=== PATIENT | male | born 1960 | race Caucasian/White ===

== ENCOUNTER → 2016-07-31 | Outpatient (CLI) | payer BC ==
[2016-07-31 15:50] LABS: Blood Urea Nitrogen 16 mg/dL (9-20); Non-African American GFR(MDRD) >60 (>60 ml/min/1.73 sqM)
--- NOTE | 2016-07-31 17:29 | CT ---
EXAMINATION TYPE: CT abdomen pelvis wo/w con DATE OF EXAM: 07/31/2016 5:12 PM COMPARISON: NONE HISTORY: Pt states of renal cysts. CT DLP: 1239.2 mGycm Automated exposure control for dose reduction was used. TECHNIQUE: Helical acquisition of images was performed from the lung bases through the pelvis. CONTRAST: Performed with Oral Contrast and with IV Contrast, patient injected with 100 mL of Omnipaque 300. FINDINGS: There are multiple subpleural densities in the lower lung pandey that measure up to 2.5 cm. There are small bilateral pleural effusions. There is no pericardial effusion. Liver shows no focal defect. Spleen appears normal. There is no pancreatic mass. Gallbladder is contr acted. There is no adrenal mass. Kidneys show satisfactory contrast opacification. There is no eviden ce of a cortical mass. There are bilateral large calculi at the ureteropelvic junction of both kidney s. These measure up to 1.5 cm. Ureters are not dilated. There is a 3 mm calcification in the lower po le left kidney. There is some fullness of the left renal collecting system. There is a 3 cm cortical cyst on the upper pole left kidney. There is no retroperitoneal adenopathy. There is no ascites. Bladder distends smoothly. There is no sign of a pelvic mass. I see no intestina l wall thickening. There are no dilated loops. Appendix is not seen. There is no sign of appendicitis . There is degenerative disc space narrowing at L4-5. IMPRESSION: BILATERAL LARGE CALCIFICATIONS AT THE URETEROPELVIC JUNCTION. MILD LEFT-SIDED HYDRONEPHROSIS. NO LAYLA L ATROPHY. LEFT RENAL CORTICAL CYST. THERE IS EVIDENCE OF A MILD OBSTRUCTION OF THE LEFT KIDNEY. I SE E NO EVIDENCE OF OBSTRUCTION OF THE RIGHT KIDNEY. PLEURAL EFFUSIONS WITH MULTIPLE SUBPLEURAL MASSES IN THE VISUALIZED LOWER LOBES. The clinical signifi cance of these densities is not clear. I would consider both inflammatory disease and neoplasm in the differential diagnosis.
== END | disposition home or self-care (01) ==
LOC: RADCTMAIN 15:09
PROVIDERS: ATTEND Urology
DX: N28.1 Cyst of kidney, acquired (principal); N13.30 Unspecified hydronephrosis; N28.89 Other specified disorders of kidney and ureter
CPT/HCPCS: 82565; 84520; 74178; 36415; Q9967

== ENCOUNTER → 2016-09-17 | Outpatient (CLI) | payer BC ==
--- NOTE | 2016-09-17 12:17 | XR ---
EXAMINATION TYPE: XR KUB DATE OF EXAM: 09/17/2016 12:10 PM COMPARISON: 07/02/2016 KUB, CT scan 07/31/2016 HISTORY: Renal stone TECHNIQUE: One view abdominal series FINDINGS: The osseous structures are intact. The bowel gas pattern is nonspecific. Changes of arthropathy of t he hips and sacroiliitis noted. Degenerative change of the spine. Right kidney: 1. There is a stable appearing 1.8 cm calcification lower pole. 2. 9 mm lower pole calcification. Left kidney: 1. There is an 11 mm lower pole calcification. 2. 2 mm lower pole calcification. 3. Suspected mid pole 3 mm calcification. Pelvis: Stable vascular appearing calcification in the right hemipelvis. Subsegmental consolidation noted both lung bases. IMPRESSION: 1. Stable bilateral renal calculi. 2. Bilateral subsegmental atelectasis or infiltrate
== END ==
LOC: RADXRMAIN 11:53
PROVIDERS: ATTEND Urology
DX: N20.0 Calculus of kidney (principal)
CPT/HCPCS: 74000

== ENCOUNTER → 2016-10-01 | Outpatient (CLI) | payer BC ==
--- NOTE | 2016-10-01 13:20 | XR ---
Abdomen HISTORY: Renal calculus Frontal view of the abdomen on 2 images correlated to previous exam August plain film abdomen, CT scan 31 July 2016 The largest calculus on the right within the renal pelvis measures approximately 2 cm. The lower pole calculus on the right measures approximately 11 to 12 mm in greatest dimension by 7 to 8 mm. Proxima l left ureteral calculus measures approximately 11.5 x 6 mm. There is a bone island in the left ilium. Phlebolith is present in the right hemipelvis, there are pr ostatic calcifications. Degenerative disc changes in the visualized spine. Lung bases show pleural ef fusion, patient has lung nodules on prior CT that are not seen definitively but are suggested posteri edy. IMPRESSION: Bilateral nephrolithiasis. Findings at the lung bases as described.
== END | disposition home or self-care (01) ==
LOC: RADXRMAIN 11:48
PROVIDERS: ATTEND Urology
DX: N20.0 Calculus of kidney (principal)
CPT/HCPCS: 74000

== ENCOUNTER → 2016-10-15 | Outpatient (CLI) | payer BC ==
--- NOTE | 2016-10-15 12:21 | XR ---
EXAMINATION TYPE: XR abdomen 1V DATE OF EXAM ORDERED: 10/15/2016 12:08 PM HISTORY: N20.0 kidney stones. COMPARISON: Previous study dated 10/01/2016. FINDINGS: There is bilateral nephrolithiasis. The largest calcification on the right measures 2.2 cm . Largest on the left measures 5.6 mm. There are phleboliths within the pelvis. There is amorphous ca lcification overlying the left psoas shadow. This has migrated somewhat distally in comparison with t he previous study.. There are degenerative changes in the lower lumbar spine. IMPRESSION: 1. BILATERAL NEPHROLITHIASIS. 2. SOMEWHAT IRREGULAR LEFT URETERIC CALCULUS HAS MIGRATED SOMEWHAT DISTALLY IN COMPARISON TO PREVIOUS .
== END | disposition home or self-care (01) ==
LOC: RADXRMAIN 11:45
PROVIDERS: ATTEND Urology
DX: N20.0 Calculus of kidney (principal)
CPT/HCPCS: 74000

== ENCOUNTER 2016-10-18 13:37 | Day surgery (SDC) | payer BC ==
[2016-10-17 09:38] VITALS: BMI 30.9
--- NOTE | 2016-10-18 13:31 | XR ---
EXAMINATION TYPE: XR KUB DATE OF EXAM: 10/18/2016 1:24 PM COMPARISON: 10/15/2016 HISTORY: Renal stone TECHNIQUE: One view abdominal series FINDINGS: The osseous structures are intact. The bowel gas pattern is nonspecific. Pleural-based thickening an d emphysematous changes are seen involving both lung bases. Hypertrophic change of the spine noted. Right kidney: There remain 2 calcifications stable in appearance measuring 12 mm and 8 mm overlying t he mid and lower pole the right kidney. Left kidney: Punctate 2 to 3 mm mid pole calcification suspected. Calcification along the left parasp inal line may lie outside the course of the ureter but appears stable from the previous exam. Pelvis: Calcification overlying the right hemipelvis is likely vascular. IMPRESSION: 1. Nonspecific abdomen. Stable nephrolithiasis.
[~2016-10-18 13:37] MED LIST: DEXAMETHASONE SOD PHOSPHATE 10 MG/ML 1 ML VIAL IV ONE; HYDROmorphone 1 MG/ML 1 ML SYRINGE IVP PRN; LACTATED RINGERS 1,000 ML IV SCH; MIDAZOLAM 2 MG/2 ML VIAL IV PRN; ONDANSETRON 4 MG/2 ML VIAL IVP ONE; ceFAZolin 2 GM in SODIUM CHLORIDE 0.9% 100 ML IVPB ONE
[2016-10-18] MEDS ORDERED: LIDOCAINE 1% 20 ML VIAL (10MG/ML) FOR IV START INTRADERMA ONE (14:01)
[2016-10-18 14:04] LABS: Glucose,Whole Blood 79 mg/dL (75-99)
[2016-10-18] MEDS ORDERED: HYDROCORTISONE SUCCINATE 100 MG/2 ML VIAL IVP ONE (15:17)
[2016-10-18] MEDS ORDERED: MIDAZOLAM 2 MG/2 ML VIAL IVP ONE (15:24)
[2016-10-18] MEDS ORDERED: PROPOFOL 10 MG/ML 20 ML VIAL IV ONE (16:43)
[2016-10-18] MEDS ORDERED: LIDOCAINE 1% INJ 10MG/ML (20 ML MDV) ONE (16:43)
[2016-10-18] MEDS ORDERED: MIDAZOLAM 2 MG/2 ML VIAL ONE (16:43)
[2016-10-18] MEDS ORDERED: SUCCINYLCHOLINE CHLORIDE 100 MG/5 ML SYR IV ONE (16:43)
[2016-10-18] MEDS ORDERED: PHENYLEPHRINE-0.9% NACL SYG 1 MG/10 ML SYRINGE ONE (16:43)
[2016-10-18] MEDS ORDERED: fentaNYL (PF) 50 MCG/ML 2 ML AMP ONE (16:43)
[2016-10-18] MEDS ORDERED: ESMOLOL 100 MG/10 ML VIAL ONE (16:43)
[2016-10-18] MEDS ORDERED: LACTATED RINGERS 1,000 ML IV ONE ×2 (17:14→18:06)
--- NOTE | 2016-10-18 18:16 | P.OP ---
Date of Procedure: 10/18/16 Preoperative Diagnosis: Left ureteral calculi, left renal calculi Postoperative Diagnosis: Same Procedure(s) Performed: Cystoscopy, left ureteroscopy with Holmium laser lithotripsy, left ureteral stent insertion Anesthesia: FARTUN Surgeon: Ronald Reina Estimated Blood Loss (ml): 5 IV fluids (ml): 1,300 Pathology: none sent Condition: stable Disposition: PACU Indications for Procedure: He is a 56-year-old male with recurrent gross hematuria. A CT scan of the abdomen and pelvis showed multiple right renal calculi, one of which he passed in 2013. Urine cytology was suspicious in 2013, and cstoscopy was normal. He was given dietary advice for kidney stone prevention. He now presents back with gross hematuria, associated with right flank pain. A KUB x-ray and CT scan show a 12 mm left UPJ calculus causing mild left hydronephrosis, as well as an 18 mm right UPJ calculus. Treatment options were reviewed in detail, and he underwent left ESWL. The left stone is smaller and is causing obstruction, and this is the reason for treating it first. The calculus fragmented incompletely, and I suggested he undergo repeat left ESWL. However, the calculus is essentially unchanged in appearance, and I have thus adivsed him to undergo left ureteroscopy with laser lithotripsy. Operative Findings: Large left mid ureteral calculus, with a second calculus immediately proximal to it. Several small left renal calculi. All calculi fragmented to completion. Description of Procedure: The patient was taken to the operating room and placed in the dorsolithotomy position, with legs supported in Atilio stirrups. The external genitalia was prepped and draped sterilely. The 30 lens was used to introduce the 19-Sudanese Stortz cystoscopic sheath through the urethra and into the bladder under direct vision. The prostatic urethra showed evidence of mild lateral lobe enlargement. The bladder was examined in its entirety. Both ureteral orifices were normal anatomic location and configuration, and clear urine effluxed from both. No tumors or foreign bodies were seen. A 0.038 inch Glidewire was passed through the cystoscope. The left ureteral orifice was cannulated, and the Glidewire was slowly advanced. It passed beyond the mid ureteral calculus and up to the left renal pelvis. The cystoscope was removed, and an 11/13-Sudanese ureteral access catheter was passed over the wire, up to the mid ureter. The Olympus flexible ureteroscope was then passed through the ureteral access catheter sheath. The ureteroscope was advanced up to the level of the calculus. The 200 micron Holmium laser probe was passed through the ureteroscope, and lithotripsy was performed. The calculus fragmented well. Once the calculus had been fragmented, a second calculus immediately cephalad to this was identified. This also was fragmented. Lithotripsy was continued until all calculus fragments were no larger than 1-2 mm in size. The ureteroscope was then slowly advanced up to the left renal pelvis. Each calyx was examined. Several small renal calculi were identified, all of which were fragmented to completion. The ureteroscope was then slowly withdrawn under direct vision. Any remaining calculi exceeding 1-2 mm in size were fragmented at this time, and most of the calculus fragments passed distally into the bladder. There was no evidence of ureteral perforation. The cystoscope was replaced into the bladder. The Glidewire was passed up to the left renal pelvis, and a 28 cm, 4.8-Sudanese double-J ureteral stent was placed over the wire. Proper stent positioning was verified fluoroscopically and endoscopically. The bladder was emptied and the cystoscope removed. The patient tolerated the procedure well and was taken to the recovery room in stable condition.
[2016-10-18 18:23] VITALS: TEMP 98.1
[2016-10-18 20:56] VITALS: BP 138/89; PULSE 103; RESP 18
--- NOTE | 2016-10-19 08:00 | FL ---
EXAMINATION TYPE: FL guidance operating room DATE OF EXAM: 10/18/2016 6:50 PM HISTORY: Flouroscopy time Less than 1 minute of fluoroscopy provided. IMPRESSION: 1. Fluoroscopy time.
== END 2016-10-18 20:01 | disposition home or self-care (01) ==
LOC: OR 13:37
PROVIDERS: ATTEND Urology
DX: N13.2 Hydronephrosis with renal and ureteral calculous obstruction (principal); Z87.442 Personal history of urinary calculi; R31.0 Gross hematuria; E03.9 Hypothyroidism, unspecified; K21.9 Gastro-esophageal reflux disease without esophagitis; M06.9 Rheumatoid arthritis, unspecified; M41.9 Scoliosis, unspecified; Z87.891 Personal history of nicotine dependence; Z79.899 Other long term (current) drug therapy; Z79.52 Long term (current) use of systemic steroids
CPT/HCPCS: 74000; 50590; 52332; C2625; C1769; J2250; J1100; J1720; J0690; J2405; J2001; J3010; J2370; J0330; J2704

== ENCOUNTER → 2016-11-07 | Outpatient (CLI) | payer BC ==
[2016-11-07 16:52] LABS: Anisocytosis Slight; Basophils # (A) 0.1 k/uL (0-0.2); Basophils % (A) 1 %; CH 27.7; CHCM 30.7; Eosinophils # (A) 0.2 k/uL (0-0.7); Eosinophils % (A) 2 %; HCT 43.6 % (39.0-53.0); HDW 3.03; HGB 13.2 gm/dL (13.0-17.5); Hypochromasia Moderate; Luc % (Auto) 1; Lymphocytes # (A) 1.4 k/uL (1.0-4.8); Lymphocytes % (A) 16 %; MCH 27.4 pg (25.0-35.0); MCHC 30.3 g/dL (31.0-37.0); MCV 90.6 fL (80.0-100.0); Mean Platelet Volume 8.9; Monocytes # (A) 0.6 k/uL (0-1.0); Monocytes % (A) 7 %; Neutrophils # (A) 6.8 k/uL (1.3-7.7); Neutrophils % (A) 74 %; RBC 4.81 m/uL (4.30-5.90); RDW 16.7 % (11.5-15.5); WBC 9.2 k/uL (3.8-10.6); WBC (Perox) 9.39
[2016-11-07 17:18] LABS: Appearance,Urine Clear (Clear); Bacteria,Urine Rare /hpf; Bilirubin,Urine Negative (Negative); Glucose,Urine (UA) Negative (Negative); Ketones,Urine Negative (Negative); Leukocyte Esterase,Urine Moderate (Negative); Mucus,Urine Rare /hpf; Nitrite,Urine Negative (Negative); PH, Urine 5.5 (5.0-8.0); Particle Count 1618; Protein,Urine Negative (Negative); RBC,Urine 141 /hpf (0-5); Specific Gravity,Urine 1.006 (1.001-1.035); UA Billing (MACRO vs. MICRO) MICRO; Urobilinogen,Urine <2.0 mg/dL (<2.0); WBC,Urine 29 /hpf (0-5)
[2016-11-07 17:21] LABS: Anion Gap 10 mmol/L; Blood Urea Nitrogen 16 mg/dL (9-20); Carbon Dioxide 24 mmol/L (22-30); Chloride 107 mmol/L (98-107); Glucose 98 mg/dL (74-99); Non-African American GFR(MDRD) >60 (>60 ml/min/1.73 sqM); Potassium 3.7 mmol/L (3.5-5.1); Sodium 141 mmol/L (137-145)
== END | disposition home or self-care (01) ==
LOC: LABPAT 16:24
PROVIDERS: ATTEND Urology
DX: Z01.812 Encounter for preprocedural laboratory examination (principal); R35.0 Frequency of micturition; E03.9 Hypothyroidism, unspecified; N20.0 Calculus of kidney
CPT/HCPCS: 80048; 81001; 85025; 86850; 86900; 86901

== ENCOUNTER 2016-11-14 07:35 | Observation (INO) | payer BC ==
[2016-11-12 08:37] VITALS: BMI 30.9
[~2016-11-14 07:35] MED LIST changes: -HYDROmorphone 1 MG/ML 1 ML SYRINGE IVP PRN; -LACTATED RINGERS 1,000 ML IV SCH; +SCOPOLAMINE 1.5MG/72HR PATCH TRANSDERM ONE
--- NOTE | 2016-11-14 07:50 | XR ---
EXAMINATION TYPE: XR KUB DATE OF EXAM: 11/14/2016 7:38 AM COMPARISON: 10/18/2016 INDICATION: Kidney stones TECHNIQUE: Single view abdomen supine FINDINGS: There is a normal bowel gas pattern. Psoas margins are normal. No organomegaly is present. 2 right-sided renal calcifications. Present measuring 1.9 and 1.0 cm present previously. Phlebolith i s within the right hemipelvis. IMPRESSION: 1. Right renal stones
[2016-11-14] MEDS ORDERED: LIDOCAINE 1% 20 ML VIAL (10MG/ML) FOR IV START INTRADERMA ONE (08:54)
[2016-11-14] MEDS: LACTATED RINGERS 1,000 ML IV SCH (08:55)
[2016-11-14] MEDS ORDERED: SUCCINYLCHOLINE CHLORIDE 100 MG/5 ML SYR IV ONE (10:07)
[2016-11-14] MEDS ORDERED: ROCURONIUM BROMIDE 10 MG/ML 10 ML VIAL IV ONE (10:07)
[2016-11-14] MEDS ORDERED: SODIUM CHLORIDE 0.9% 50 ML with ceFAZolin 2,000 MG IV ONE ×2 (10:07)
[2016-11-14] MEDS ORDERED: LIDOCAINE 1% INJ 10MG/ML (20 ML MDV) ONE (10:07)
[2016-11-14] MEDS ORDERED: GLYCOPYRROLATE 0.2 MG/ML 2 ML VIAL ONE (10:07)
[2016-11-14] MEDS ORDERED: fentaNYL (PF) 50 MCG/ML 2 ML AMP ONE (10:07)
[2016-11-14] MEDS ORDERED: ESMOLOL 100 MG/10 ML VIAL ONE (10:07)
[2016-11-14] MEDS ORDERED: MIDAZOLAM 2 MG/2 ML VIAL ONE (10:07)
[2016-11-14] MEDS ORDERED: NEOSTIGMINE 1 MG/ML 10 ML VIAL ONE (10:07)
[2016-11-14] MEDS ORDERED: PROPOFOL 10 MG/ML 20 ML VIAL IV ONE (10:07)
[2016-11-14] MEDS ORDERED: IOHEXOL 350 MG/ML 50ML BOTTLE IRRIGATION ONE (10:37)
[2016-11-14] MEDS ORDERED: ACETAMINOPHEN TAB 325 MG TAB PO PRN (11:52)
[2016-11-14] MEDS ORDERED: MAG HYDROX/AL HYDROX/SIMETH 30 ML CUP PO PRN (11:52)
[2016-11-14] MEDS ORDERED: MAGNESIUM HYDROXIDE 2,400 MG/10 ML CUP PO PRN (11:53)
[2016-11-14] MEDS ORDERED: HYDROmorphone PCA 5 MG/25 ML SYRINGE IV PRN (11:53)
[2016-11-14] MEDS ORDERED: ONDANSETRON 4 MG/2 ML VIAL IVP PRN (11:53)
[2016-11-14] MEDS ORDERED: NALOXONE 0.4 MG/ML 1 ML VIAL IV PRN (11:53)
[2016-11-14] MEDS ORDERED: diphenhydrAMINE 50 MG/ML 1 ML VIAL IVP PRN (11:53)
--- NOTE | 2016-11-14 11:58 | P.OP ---
Date of Procedure: 11/14/16 Preoperative Diagnosis: Right renal calculi large Postoperative Diagnosis: Same Procedure(s) Performed: Cystoscopy, placement of 5-Filipino occluding balloon catheter right, percutaneous nephrostomy (Dr. simpson), percutaneous nephrostolithotomy with ultrasound, placement of 10-Filipino J nephrostomy Anesthesia: FARTUN Surgeon: Micheal Bob Estimated Blood Loss (ml): 50 Pathology: other (Stones) Condition: stable Disposition: PACU Indications for Procedure: The patient is a 56-year-old gentleman with active kidney stone disease. He has an 18 mm and 10 mm right renal pelvic stone and comes for percutaneous nephrostolithotomy Description of Procedure: The patient is brought to the operating suite he is given a successful general endotracheal anesthesia on the transport gurney. He's placed in a frog position with rolls under his hips a sterile prep and drape. Cystoscopy with Foroblique lens and 22-Filipino sheath identifies a normal anterior urethra a minimally obstructing prostate. The right ureteral orifice is identified and intubated with a 5-Filipino occluding balloon catheter which is passed up in the renal pelvis it is secured to a Meraz catheter after the cystoscope was removed The patient is placed in a prone position with care to airways and extremities. Dr. Simpson of radiology performed percutaneous nephrostomy access to a right middle pole calyx. I then dilate the tract to 30-Filipino and introduced the working sheath into the collecting system. I'm able to see the larger of the 2 stones and with the ultrasonic probe grind and suction as well as grasp the larger fragments out of the collecting system. I then advanced the rigid scope further and identify the second stone in the renal pelvis and similarly used the ultrasound to fracture and remove the stone. At the end of the procedure I look through the collecting system with the flexible scope and see no remaining fragments. I fluoroscoped the renal pelvis and do not see any remaining fragments. I then place a 10-Filipino J nephrostomy tube over working wire that coils in the renal pelvis and the secured the skin with 2-0 silk. The patient' s awake and returned recovery room good condition. Blood loss is approximately 50 mL. Patient will be placed in the hospital postoperatively.
[2016-11-14] MEDS: HYDROmorphone 1 MG/ML 1 ML SYRINGE IVP PRN ×2 (12:05→12:11)
[2016-11-14] MEDS: KETOROLAC 30 MG/ML 1 ML VIAL IVP SCH ×3 (12:11→23:28)
--- NOTE | 2016-11-14 12:12 | FL ---
Fluoroscopy INDICATION: Pain FINDINGS: Fluoroscopy time: 11 minutes 49 seconds. Images obtained: 2. IMPRESSIONS: 1. Documentation of fluoroscopy.
[2016-11-14 12:13] VITALS: RESP 16
[2016-11-14] MEDS: DEXTROSE 5%-0.45% NACL 1,000 ML IV SCH ×2 (13:53→22:41)
[2016-11-15] MEDS: LACTATED RINGERS 1,000 ML IV SCH (04:46)
[2016-11-15] MEDS: KETOROLAC 30 MG/ML 1 ML VIAL IVP SCH (06:26)
--- NOTE | 2016-11-15 06:44 | P.DS ---
Providers Date of admission: 11/14/16 16:54 Attending physician: Micheal Bob Primary care physician: Stated None Hospital Course: The patient was admitted 11/14/2016 for right percutaneous nephrostolithotomy. He underwent this without event. Postoperatively he tolerated his diet, ambulated and had minimal discomfort. He'll be discharged home later this morning with his nephrostomy tube. He'll follow-up in the office Saturday for nephrostomy tube removal. Postoperative instructions have been given. His diet is regular, his activity is limited, he has pain medicine at home. His condition is good upon discharge. Patient Condition at Discharge: Good Plan - Discharge Summary Discharge Medication List Hydroxychloroquine Sulfate [Plaquenil] 200 mg PO DAILY 10/17/16 [History] Leflunomide [Arava] 20 mg PO DAILY 10/17/16 [History] Levothyroxine Sodium [Synthroid] 150 mcg PO 10/17/16 [History] Levothyroxine Sodium [Synthroid] 175 mcg PO 10/17/16 [History] Tofacitinib Citrate [Xeljanz] 5 mg PO DAILY 10/17/16 [History] methylPREDNISolone [Medrol] 4 mg PO DAILY 10/17/16 [History] Follow up Appointment(s)/Referral(s): Micheal Bob MD [STAFF PHYSICIAN] - 11/19/16 Activity/Diet/Wound Care/Special Instructions: The patient may shower, resume his home medications, Discharge Disposition: HOME SELF-CARE
[2016-11-15 07:44] VITALS: BP 129/84; PULSE 85; TEMP 97.6
[2016-11-15] MEDS ORDERED: LEFLUNOMIDE 20 MG TAB PO SCH (09:00)
[2016-11-15] MEDS ORDERED: HYDROXYCHLOROQUINE SULFATE 200 MG TAB PO SCH (09:00)
[2016-11-15] MEDS ORDERED: methylPREDNISolone 4 MG TAB PO SCH (09:00)
[2016-11-15] MEDS: DEXTROSE 5%-0.45% NACL 1,000 ML IV SCH (09:57)
== END 2016-11-15 11:30 | disposition home or self-care (01) ==
LOC: OR 07:35 → 3SUR 11:40 → OR 16:56
PROVIDERS: ADMIT Urology; ATTEND Urology
DX: N20.0 Calculus of kidney (principal); E03.9 Hypothyroidism, unspecified; K21.9 Gastro-esophageal reflux disease without esophagitis; M06.9 Rheumatoid arthritis, unspecified; M41.9 Scoliosis, unspecified; Z87.891 Personal history of nicotine dependence; Z80.1 Family history of malignant neoplasm of trachea, bronchus and lung; Z80.8 Family history of malignant neoplasm of other organs or systems; Z79.899 Other long term (current) drug therapy; Z79.84 Long term (current) use of oral hypoglycemic drugs; Z79.52 Long term (current) use of systemic steroids
CPT/HCPCS: 50080; 50395; 82365; 74000; 50432; G0378 ×2; C1769 ×3; C2628; C1894; C1729; J2250; J1100; J2710; J2405; J2001; J3010; J1885 ×2; J1170 ×2; J0690; J0330; J2704; Q9967; 86850; 86900; 86901; 96374; 96376

== ENCOUNTER → 2017-09-17 | Outpatient (CLI) | payer BC ==
--- NOTE | 2017-09-17 19:07 | CT ---
History foot pain. The left comparison none. TECHNIQUE: Multiple axial sections were obtained from the distal tibia to the bottom of the foot with no contras t. There are reconstructed images. Images include all the metatarsals. FINDINGS: There is some deformity and fragmentation at the tarsometatarsal joints involving the second third fo urth and fifth metatarsals. There is an old ununited transverse fracture of the base of the fifth met atarsal. The first tarsometatarsal joint is anatomic. There is lateral subluxation of the second thir d fourth and fifth metatarsal bases. There is an Achilles calcaneal spur. There is a small plantar calcaneal spur. Calcaneus is intact. Th e talus is intact. The distal tibia and fibula appear intact. The talonavicular joint is anatomic. CONCLUSION: Fragmentation and subluxation seen at the 2nd-5th tarsometatarsal joints. This is consistent with a L isfranc deformity. The possibility of neuropathic arthritis should also be considered. 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 Calcaneal spurring. There is mild osteoarthritis at the first MP joint. I do not see subluxation at the MP joints to navdeep est rheumatoid arthritis.
== END | disposition home or self-care (01) ==
LOC: RADCTMAIN 17:38
PROVIDERS: ATTEND Orthopaedic Surgery
DX: S93.321A Subluxation of tarsometatarsal joint of right foot, initial encounter (principal); M19.071 Primary osteoarthritis, right ankle and foot; M77.31 Calcaneal spur, right foot

== ENCOUNTER → 2017-11-01 | Outpatient (CLI) | payer BC ==
--- NOTE | 2017-11-05 12:18 | ECHOF ---
Referral Reason:I52.7 cardiomegaly MEASUREMENTS -------- HEIGHT: 185.4 cm WEIGHT: 111.1 kg BP: 188/104 RVIDd: 3.4 cm (< 3.3) IVSd: 0.9 cm (0.6 - 1.1) LVIDd: 5.4 cm (3.9 - 5.3) LVPWd: 1.0 cm (0.6 - 1.1) IVSs: 1.4 cm LVIDs: 4.1 cm LVPWs: 1.4 cm LA Diam: 3.6 cm (2.7 - 3.8) LAESV Index (A-L): 26.70 ml/m Ao Diam: 3.8 cm (2.0 - 3.7) AV Cusp: 2.7 cm (1.5 - 2.6) MV EXCURSION: 21.171 mm (> 18.000) MV EF SLOPE: 191 mm/s (70 - 150) EPSS: 0.9 cm MV E Juan: 1.12 m/s MV DecT: 122 ms MV A Juan: 0.60 m/s MV E/A Ratio: 1.85 RAP: 5.00 mmHg RVSP: 24.14 mmHg FINDINGS -------- Resting tachycardia (HR>100bpm). This was a technically adequate study. The left ventricular size is normal. Left ventricular wall thickness is normal. Overall left vent ricular systolic function is low-normal with, an EF between 50 - 55 %. The right ventricle is mildly enlarged. Normal LA size by volume 22+/-6 ml/m2. The right atrium is normal in size. The aortic valve is trileaflet and appears structurally normal. Mild mitral annular calcification present. Mild tricuspid regurgitation present. Right ventricular systolic pressure is normal at < 35 mmHg. The pulmonic valve was not well visualized. The aortic root is dilated measuring 3.8cm. The inferior vena cava is mildly dilated. There is no pericardial effusion. CONCLUSIONS -------- 1. Resting tachycardia (HR>100bpm). 2. This was a technically adequate study. 3. The left ventricular size is normal. 4. Left ventricular wall thickness is normal. 5. Overall left ventricular systolic function is low-normal with, an EF between 50 - 55 %. 6. The right ventricle is mildly enlarged. 7. Normal LA size by volume 22+/-6 ml/m2. 8. The right atrium is normal in size. 9. The aortic valve is trileaflet and appears structurally normal. 10. Mild mitral annular calcification present. 11. Mild tricuspid regurgitation present. 12. Right ventricular systolic pressure is normal at < 35 mmHg. 13. The pulmonic valve was not well visualized. 14. The aortic root is dilated measuring 3.8cm. 15. The inferior vena cava is mildly dilated. 16. There is no pericardial effusion. [employer] OPERATOR: Stephani Tovar RDCS
== END | disposition home or self-care (01) ==
LOC: RADECHMAIN 13:55
PROVIDERS: ATTEND Family Medicine
DX: I07.1 Rheumatic tricuspid insufficiency (principal); I70.8 Atherosclerosis of other arteries
CPT/HCPCS: 93306

== ENCOUNTER → 2017-11-07 | Outpatient (CLI) | payer BC ==
--- NOTE | 2017-11-07 21:26 | CT ---
EXAMINATION TYPE: CT chest wo con DATE OF EXAM: 11/07/2017 COMPARISON: NONE HISTORY: Shortness of breath for 1-[address] DLP: 302 mGycm High-resolution noncontrast CT of the chest was performed with the patient in the prone and supine po sitions. Lung and mediastinal window settings are submitted. There are multiple pulmonary nodules most of which could be pleural-based and some of which demonstra te cavitation. On the left the number of nodules is estimated at 16-18 with the largest nodules ident ified within the left lower lobe measuring approximately 2.5 cm. There is associated left sided pleur al thickening and left pleural effusion. Right-sided pulmonary nodules a total approximately 10-12 an d number with the largest nodule identified within the right lower lobe with underlying cavitation an d measures 2.5 cm. Small right-sided pleural effusion and pleural thickening noted. Incidental azygos lobe and fissure. Mild lower lobe bronchiectasis. No evidence for fibrosis. No evidence of adenopathy. Mild cardiomegaly. Simple cyst upper pole left kidney. IMPRESSION: 1. Multiple bilateral pulmonary nodules some of which demonstrate cavitation could reflect rheumatoid nodules. Nodules of other etiology including metastatic disease not excluded. 2. Small pleural effusions with associated pleural thickening.
== END | disposition home or self-care (01) ==
LOC: RADCTMAIN 16:51
PROVIDERS: ATTEND Internal Medicine
DX: J90 Pleural effusion, not elsewhere classified (principal); R91.8 Other nonspecific abnormal finding of lung field; J92.9 Pleural plaque without asbestos
CPT/HCPCS: 71250

== ENCOUNTER → 2017-11-27 | Outpatient (CLI) | payer BC ==
[2017-11-27 10:28] LABS: T4, Free (Free Thyroxine) 1.28 ng/dL (0.78-2.19)
== END | disposition home or self-care (01) ==
LOC: LABWHC1 09:27
PROVIDERS: ATTEND Internal Medicine Interventional Cardiology
DX: E05.90 Thyrotoxicosis, unspecified without thyrotoxic crisis or storm (principal)
CPT/HCPCS: 36415; 84439; 84443

== ENCOUNTER → 2017-12-12 | Outpatient (CLI) | payer BC ==
[2017-12-12 11:46] LABS: Anisocytosis Slight; HCT 40.2 % (39.0-53.0); HGB 12.5 gm/dL (13.0-17.5); Hypochromasia Moderate; MCH 26.4 pg (25.0-35.0); MCHC 31.1 g/dL (31.0-37.0); Mean Platelet Volume 8.7; Platelet Count 331 k/uL (150-450); RBC 4.72 m/uL (4.30-5.90); RDW 17.8 % (11.5-15.5); WBC 11.7 k/uL (3.8-10.6)
[2017-12-12 11:59] LABS: Potassium 4.1 mmol/L (3.5-5.1)
== END | disposition home or self-care (01) ==
LOC: LABPAT 10:46
PROVIDERS: ATTEND Internal Medicine Interventional Cardiology
DX: Z01.812 Encounter for preprocedural laboratory examination (principal); I25.10 Atherosclerotic heart disease of native coronary artery without angina pectoris
CPT/HCPCS: 36415; 80051; 84520; 85027

== ENCOUNTER → 2017-12-20 | Day surgery (SDC) | payer BC ==
[2017-12-18 08:25] VITALS: BMI 33.2
[~2017-12-20] MED LIST changes: +ALPRAZolam 0.25 MG TAB PO PRN; +ALPRAZolam 0.5 MG TAB PO PRN; +ASPIRIN 325 MG TAB PO STA; +ATORVASTATIN 80 MG TAB PO STA; -DEXAMETHASONE SOD PHOSPHATE 10 MG/ML 1 ML VIAL IV ONE; +HEPARIN SODIUM 1,000 UN/ML (10ML VL) IV ONE; +HEPARIN SODIUM 1,000 UN/ML (10ML VL) ONE; +IOPAMIDOL-370 100ML BTL INJ ONE; +LIDOCAINE 2% INJ 20 MG/ML (20 ML MDV) ONE; +LIDOCAINE 2% INJ 20 MG/ML SQ ONE; -MIDAZOLAM 2 MG/2 ML VIAL IV PRN; +MIDAZOLAM 2 MG/2 ML VIAL ONE; +NITROGLYCERIN SL TABS 0.4 MG TAB SUBLINGUAL PRN; -ONDANSETRON 4 MG/2 ML VIAL IVP ONE; -SCOPOLAMINE 1.5MG/72HR PATCH TRANSDERM ONE; +SODIUM CHLORIDE 0.9% 1,000 ML IV SCH; +SODIUM CHLORIDE 0.9% 1,000 ML in EMPTY BAG 1 BAG IV ONE; +VERAPAMIL 2.5 MG/ML 2 ML AMP ONE; -ceFAZolin 2 GM in SODIUM CHLORIDE 0.9% 100 ML IVPB ONE; +diphenhydrAMINE 50 MG/ML 1 ML VIAL IVP ONE; +diphenhydrAMINE 50 MG/ML 1 ML VIAL ONE; +fentaNYL (PF) 50 MCG/ML 2 ML AMP IVP ONE; +fentaNYL (PF) 50 MCG/ML 2 ML AMP ONE
[2017-12-20 09:38] VITALS: RESP 18; TEMP 98.1
[2017-12-20] MEDS: VERAPAMIL SYRINGE (5 MG/10 ML) INTRAARTER ONE ×2 (11:19→11:35)
--- NOTE | 2017-12-20 12:51 | CC ---
CARDIAC CATHETERIZATION REPORT DATE OF SERVICE: 12/20/2017. PROCEDURE: Left heart catheterization, coronary angiography and left ventriculography. PERFORMED BY: Dr. Kenrick Carias. ANESTHESIA: Moderate conscious sedation time was 23 minutes. Patient was given fentanyl and Benadryl. CLINICAL INFORMATION: Mr. Lokesh Zee is a 57-year-old gentleman with rheumatoid arthritis and rheumatoid lung. He also has history of chest pain with an abnormal stress test suggestive of probably nonischemic cardiomyopathy but areas of reversibility. He was therefore advised coronary angiography. Risks, benefits, options and rationale were explained. PROCEDURE NOTE: Under local anesthesia and strict aseptic precautions, a 6-Samoan introducer was placed in the right radial artery. Using an Ultimate 1 catheter, I performed selective coronary angiography of both coronary arteries and a pigtail catheter was used to check LV pressures and LV-gram was performed in 30-degree DESOUZA projection. Patient tolerated the procedure well without complications. The sheath was taken out and TR band applied as per protocol and saturation in the fingers of the right hand was about 94%. CARDIAC CATHETERIZATION FINDINGS: The left ventricular end-diastolic pressure was about 20 mmHg without any gradient across the aortic valve. CORONARY ANGIOGRAPHY FINDINGS: RIGHT CORONARY ARTERY: Technically a dominant vessel. No significant disease, gives off a large acute marginal branch and then distally a large PLV, smaller PDA, minor irregularities. No significant disease is noted. LEFT MAIN CORONARY ARTERY: Short patent disease-free vessel that bifurcates into LAD and circumflex. LEFT ANTERIOR DESCENDING CORONARY ARTERY: Good caliber vessel gives off septal and diagonal branches. There is a large diagonal and next to it, the second diagonal is somewhat smaller. Both of these are free of significant disease and supplies a sizable amount of myocardium. No significant disease is noted in the LAD system other than minor irregularities up to 30% or so. LAD: Therefore is relatively disease-free system with minor irregularities and a good- sized septal and diagonal branch is noted which has no significant disease. LEFT POSTERIOR CIRCUMFLEX CORONARY ARTERY: Technically, a nondominant vessel, smaller in distribution but fair in caliber, gives off a single obtuse marginal that runs laterally. Then there is an AV groove branch and left atrial circumflex branch. All of these are free of significant disease with minor irregularities. LEFT VENTRICULOGRAM: This was performed in 30-degree DESOUZA projection, revealed left ventricle is of normal size with good systolic function. Ejection fraction is at the at the low end of normal of 50% without mitral regurgitation. FINAL IMPRESSION: This patient has a right dominant system, minor irregularities, but no significant obstructive CAD. Ejection fraction is 50% which is at low end of normal. Filling pressures are mildly elevated. RECOMMENDATION: Continued medical therapy with risk factor modification is advised. I will add 50 mg of losartan to his regimen. He is advised to take aspirin 81 mg daily and continue the beta tricia at about 75 mg b.i.d. as ordered. Patient will be discharged later on today if he remains stable. MMODL / IJN: [id number] /
--- NOTE | 2017-12-20 12:51 | LTR ---
DATE OF SERVICE: 12/20/2017 RE: Lokesh Zee Dear Dr. Morris: Thank you for the opportunity to participate in the care of Mr. Zee. I am pleased to report to you that he does not have any obstructive CAD. He has what seems to be an early nonischemic cardiomyopathy-type picture. I have added losartan to beta tricia. Will continue same medications. I will discharge him later on today and will see him in the office in one week. I have advised him to follow up with you on a regular basis. Thank you for your referral and please call for questions. With kindest regards, Sincerely yours, Natalie Carias MD MMRENOL / HEIDYN: [id number] /
[2017-12-20 16:02] VITALS: BP 130/68; PULSE 81
== END ==
LOC: CATHCVL 09:08
PROVIDERS: ATTEND Internal Medicine Interventional Cardiology
DX: I25.110 Atherosclerotic heart disease of native coronary artery with unstable angina pectoris (principal); I10 Essential (primary) hypertension; Z87.891 Personal history of nicotine dependence; E05.90 Thyrotoxicosis, unspecified without thyrotoxic crisis or storm; M05.10 Rheumatoid lung disease with rheumatoid arthritis of unspecified site; M05.9 Rheumatoid arthritis with rheumatoid factor, unspecified; Z79.890 Hormone replacement therapy; Z79.899 Other long term (current) drug therapy; Z79.52 Long term (current) use of systemic steroids
CPT/HCPCS: 93458; C1894; J2001; J1200; J3010; J1644; Q9967

== ENCOUNTER → 2018-06-16 | Outpatient (CLI) | payer BC ==
--- NOTE | 2018-06-17 09:26 | CT ---
EXAMINATION TYPE: CT chest wo/w con DATE OF EXAM: 06/17/2018 COMPARISON: 11/07/2017 HISTORY: lung mass. Pt pre-op CT DLP: 1212.50 mGycm Automated exposure control for dose reduction was used. CONTRAST: CT scan of the chest is performed without and with with IV Contrast, patient injected with 100 mL of Isovue 300. FINDINGS: LUNGS: Multiple pulmonary nodules redemonstrated most of which are pleural-based. Several of the nodu les again demonstrate cavitation. The overall number of the nodules is felt to be stable with an [place] mated 16-18 nodules noted within the left lung and at 10-12 nodules right lung. The largest nodule le ft lower lobe measured 2.5 cm previously currently measures 2.4 cm. The largest nodule within the rig ht lung is noted within the right lower lobe posteriorly and demonstrates cavitation currently measur es 2.1 cm versus 2.5 cm previously. Small loculated pleural effusions noted. MEDIASTINUM: There are no greater than 1 cm hilar or mediastinal lymph nodes. No pericardial effusi on is seen. Thoracic aorta is of normal caliber. The heart is not enlarged. UPPER ABDOMEN: Simple cyst upper pole left kidney measures 2.9 cm. OTHER: No additional significant abnormality is seen. IMPRESSION: 1. Overall number of pulmonary nodules remains essentially unchanged although several of the nodules appear slightly smaller in size. Areas of cavitation persist. Small pleural effusions and mild compre ssive atelectasis again noted.
== END | disposition home or self-care (01) ==
LOC: RADCTMAIN 16:57
PROVIDERS: ATTEND Family Medicine
DX: J98.11 Atelectasis (principal); J90 Pleural effusion, not elsewhere classified; R91.8 Other nonspecific abnormal finding of lung field
CPT/HCPCS: 71270; Q9967

== ENCOUNTER 2018-07-25 18:11 | Inpatient (IN) | payer BC ==
--- NOTE | 2018-07-25 18:56 | ED ---
Recheck HPI - General Chief Complaint: Recheck/Abnormal Lab/Rx Stated Complaint: low blood pressure Time Seen by Provider: 07/25/18 18:55 Source: patient, RN notes reviewed, old records reviewed Mode of arrival: wheelchair Limitations: no limitations - History of Present Illness Initial Comments: This is a 58-year-old male to the ER for evaluation. States presenting for evaluation regards to weakness. Not eating, weight loss, anorexia. Patient does have, can recent medical history with right foot surgery multiple postop complications including infection. Patient has noted fever at home, was seen by home care nurse today and sent in for evaluation secondary to low blood pressure, low oxygen level, fever. Patient himself states he just feels weak denies cough congestion or shortness of breath. No is no spreading erythema from his right lower extremity. No nausea vomiting or diarrhea MD Complaint: other (Evaluation regarding abnormal vital signs) -: unknown Initial Visit For: other (Right lower extremity surgery, right foot surgery with follow-up) Returns Today for: wound recheck, other (Abnormal vital signs) Symptoms Since Prior Visit: no new symptoms Associated Symptoms: fever, chills Treatments Prior to Arrival: other - Related Data Home Medications Medication Instructions Recorded Confirmed Leflunomide [Arava] 20 mg PO DAILY 10/17/16 07/25/18 Levothyroxine Sodium [Synthroid] 150 mcg PO DAILY 10/17/16 07/25/18 Tofacitinib Citrate [Xeljanz] 11 mg PO DAILY 10/17/16 07/25/18 Amoxic-Pot Clav 875-125Mg 1 tab PO Q12HR 07/25/18 07/25/18 [Augmentin 875-125] Doxycycline [Vibramycin] 100 mg PO BID 07/25/18 07/25/18 Ibuprofen [Motrin Ib] 800 mg PO Q4H PRN 07/25/18 07/25/18 Metoprolol Tartrate [Lopressor] 25 mg PO BID 07/25/18 07/25/18 Sildenafil Citrate [Viagra] 100 mg PO ONCE 07/25/18 07/25/18 Sodium Chloride [[place]] 1 spray EA NOSTRIL DAILY 07/25/18 07/25/18 Allergies Allergy/AdvReac Type Severity Reaction Status Date / Time No Known Allergies Allergy Verified 07/25/18 19:00 Review of Systems ROS Statement: Those systems with pertinent positive or pertinent negative responses have been documented in the HPI. ROS Other: All systems not noted in ROS Statement are negative. Past Medical History Past Medical History: Rheumatoid Arthritis (RA), Thyroid Disorder Additional Past Medical History / Comment(s): right foot infection, KIDNEY STONES History of Any Multi-Drug Resistant Organisms: None Reported Past Surgical History: Tonsillectomy Additional Past Surgical History / Comment(s): right foot surgery Past Anesthesia/Blood Transfusion Reactions: No Reported Reaction Past Psychological History: No Psychological Hx Reported Smoking Status: Former smoker Past Alcohol Use History: Occasional Past Drug Use History: None Reported - Past Family History Mother Family Medical History: Cancer General Exam - General Exam Comments Initial Comments: she does have right lower extremity wound bandaged currently. Limitations: no limitations General appearance: alert, lethargic, in distress Head exam: Present: atraumatic, normocephalic, normal inspection Eye exam: Present: normal appearance, PERRL, EOMI. Absent: scleral icterus, conjunctival injection, periorbital swelling ENT exam: Present: normal exam, mucous membranes dry Neck exam: Present: normal inspection. Absent: tenderness, meningismus, lymphadenopathy Respiratory exam: Present: normal lung sounds bilaterally. Absent: respiratory distress, wheezes, rales, rhonchi, stridor Cardiovascular Exam: Present: normal rhythm, tachycardia, normal heart sounds. Absent: systolic murmur, diastolic murmur, rubs, gallop, clicks GI/Abdominal exam: Present: soft, normal bowel sounds. Absent: distended, tenderness, guarding, rebound, rigid Extremities exam: Present: normal inspection, full ROM, normal capillary refill. Absent: tenderness, pedal edema, joint swelling, calf tenderness Back exam: Present: normal inspection Neurological exam: Present: alert, oriented X3, CN II-XII intact Psychiatric exam: Present: normal affect, normal mood Skin exam: Present: warm, dry, intact, normal color. Absent: rash Course Vital Signs 07/25/18 07/25/18 07/25/18 18:37 19:10 19:35 Temperature 98.6 F 98.3 F Pulse Rate 114 H 112 H Respiratory 18 18 Rate Blood Pressure 108/69 110/75 O2 Sat by Pulse 95 97 Oximetry 07/25/18 20:30 Temperature Pulse Rate 109 H Respiratory 20 Rate Blood Pressure 118/72 O2 Sat by Pulse 97 Oximetry - Reevaluation(s) Reevaluation #1: 07/25/18 20:25 Medical record is reviewed, prior pictures of right foot injury are reviewed Reevaluation #2: 07/25/18 21:43 Spoke with family at length, patient states he still feels weak deathly denies appetite. Remains tachycardic and malnourished. Patient will be admitted for continued treatment - Consultations Consultation #1: Spoke with Dr. Dailey, acceptable of admission Medical Decision Making - Medical Decision Making 58 male the ER for evaluation. Patient presents today for evaluation regards to weakness. Patient is significantly dehydrated not eating well malnourished and not completing his ADLs. Patient is to be admitted for rehydration R replacement and continued IV antibiotics - Lab Data Result diagrams: 07/25/18 19:20 07/25/18 19:20 Lab Results 07/25/18 07/25/18 07/25/18 Range/Units 19:20 19:20 19:20 WBC 8.9 (3.8-10.6) k/uL RBC 4.46 (4.30-5.90) m/uL Hgb 11.6 L (13.0-17.5) gm/dL Hct 38.1 L (39.0-53.0) % MCV 85.4 (80.0-100.0) fL MCH 26.1 (25.0-35.0) pg MCHC 30.5 L (31.0-37.0) g/dL RDW 16.3 H (11.5-15.5) % Plt Count 245 (150-450) k/uL Neutrophils % 64 % Lymphocytes % 13 % Monocytes % 7 % Eosinophils % 14 % Basophils % 1 % Neutrophils # 5.6 (1.3-7.7) k/uL Lymphocytes # 1.2 (1.0-4.8) k/uL Monocytes # 0.7 (0-1.0) k/uL Eosinophils # 1.2 H (0-0.7) k/uL Basophils # 0.1 (0-0.2) k/uL Hypochromasia Slight Anisocytosis Slight PT (9.0-12.0) sec INR (<1.2) APTT (22.0-30.0) sec D-Dimer (<0.60) mg/L FEU Sodium 137 (137-145) mmol/L Potassium 3.2 L (3.5-5.1) mmol/L Chloride 105 (98-107) mmol/L Carbon Dioxide 22 (22-30) mmol/L Anion Gap 10 mmol/L BUN 10 (9-20) mg/dL Creatinine 1.51 H (0.66-1.25) mg/dL Est GFR (CKD-EPI)AfAm 59 (>60 ml/min/1.73 sqM) Est GFR (CKD-EPI)NonAf 51 (>60 ml/min/1.73 sqM) Glucose 131 H (74-99) mg/dL Plasma Lactic Acid Caden (0.7-2.0) mmol/L Calcium 8.9 (8.4-10.2) mg/dL Magnesium 1.2 L (1.6-2.3) mg/dL Total Bilirubin 1.1 (0.2-1.3) mg/dL AST 73 H (17-59) U/L ALT 32 (21-72) U/L Alkaline Phosphatase 138 H (38-126) U/L Total Creatine Kinase 90 (55-170) U/L CK-MB (CK-2) 1.2 (0.0-2.4) ng/mL CK-MB (CK-2) Rel Index 1.3 Troponin I <0.012 (0.000-0.034) ng/mL NT-Pro-B Natriuret Pep pg/mL Total Protein 6.3 (6.3-8.2) g/dL Albumin 2.6 L (3.5-5.0) g/dL Influenza Type A RNA (Not Detectd) Influenza Type B (PCR) (Not Detectd) 07/25/18 07/25/18 07/25/18 Range/Units 19:20 19:20 19:20 WBC (3.8-10.6) k/uL RBC (4.30-5.90) m/uL Hgb (13.0-17.5) gm/dL Hct (39.0-53.0) % MCV (80.0-100.0) fL MCH (25.0-35.0) pg MCHC (31.0-37.0) g/dL RDW (11.5-15.5) % Plt Count (150-450) k/uL Neutrophils % % Lymphocytes % % Monocytes % % Eosinophils % % Basophils % % Neutrophils # (1.3-7.7) k/uL Lymphocytes # (1.0-4.8) k/uL Monocytes # (0-1.0) k/uL Eosinophils # (0-0.7) k/uL Basophils # (0-0.2) k/uL Hypochromasia Anisocytosis PT 23.2 H (9.0-12.0) sec INR 2.4 H (<1.2) APTT 28.5 (22.0-30.0) sec D-Dimer 3.13 H (<0.60) mg/L FEU Sodium (137-145) mmol/L Potassium (3.5-5.1) mmol/L Chloride (98-107) mmol/L Carbon Dioxide (22-30) mmol/L Anion Gap mmol/L BUN (9-20) mg/dL Creatinine (0.66-1.25) mg/dL Est GFR (CKD-EPI)AfAm (>60 ml/min/1.73 sqM) Est GFR (CKD-EPI)NonAf (>60 ml/min/1.73 sqM) Glucose (74-99) mg/dL Plasma Lactic Acid Caden 2.3 H* (0.7-2.0) mmol/L Calcium (8.4-10.2) mg/dL Magnesium (1.6-2.3) mg/dL Total Bilirubin (0.2-1.3) mg/dL AST (17-59) U/L ALT (21-72) U/L Alkaline Phosphatase (38-126) U/L Total Creatine Kinase (55-170) U/L CK-MB (CK-2) (0.0-2.4) ng/mL CK-MB (CK-2) Rel Index Troponin I (0.000-0.034) ng/mL NT-Pro-B Natriuret Pep 1410 pg/mL Total Protein (6.3-8.2) g/dL Albumin (3.5-5.0) g/dL Influenza Type A RNA (Not Detectd) Influenza Type B (PCR) (Not Detectd) 07/25/18 Range/Units 20:45 WBC (3.8-10.6) k/uL RBC (4.30-5.90) m/uL Hgb (13.0-17.5) gm/dL Hct (39.0-53.0) % MCV (80.0-100.0) fL MCH (25.0-35.0) pg MCHC (31.0-37.0) g/dL RDW (11.5-15.5) % Plt Count (150-450) k/uL Neutrophils % % Lymphocytes % % Monocytes % % Eosinophils % % Basophils % % Neutrophils # (1.3-7.7) k/uL Lymphocytes # (1.0-4.8) k/uL Monocytes # (0-1.0) k/uL Eosinophils # (0-0.7) k/uL Basophils # (0-0.2) k/uL Hypochromasia Anisocytosis PT (9.0-12.0) sec INR (<1.2) APTT (22.0-30.0) sec D-Dimer (<0.60) mg/L FEU Sodium (137-145) mmol/L Potassium (3.5-5.1) mmol/L Chloride (98-107) mmol/L Carbon Dioxide (22-30) mmol/L Anion Gap mmol/L BUN (9-20) mg/dL Creatinine (0.66-1.25) mg/dL Est GFR (CKD-EPI)AfAm (>60 ml/min/1.73 sqM) Est GFR (CKD-EPI)NonAf (>60 ml/min/1.73 sqM) Glucose (74-99) mg/dL Plasma Lactic Acid Caden (0.7-2.0) mmol/L Calcium (8.4-10.2) mg/dL Magnesium (1.6-2.3) mg/dL Total Bilirubin (0.2-1.3) mg/dL AST (17-59) U/L ALT (21-72) U/L Alkaline Phosphatase (38-126) U/L Total Creatine Kinase (55-170) U/L CK-MB (CK-2) (0.0-2.4) ng/mL CK-MB (CK-2) Rel Index Troponin I (0.000-0.034) ng/mL NT-Pro-B Natriuret Pep pg/mL Total Protein (6.3-8.2) g/dL Albumin (3.5-5.0) g/dL Influenza Type A RNA Not Detected (Not Detectd) Influenza Type B (PCR) Not Detected (Not Detectd) - EKG Data -: EKG Interpreted by Me (EKG shows sinus tachycardia rate of 113, [place] 150, QRS 96, QTc 458) - Radiology Data Radiology results: report reviewed (Chest x-rays negative for acute disease), image reviewed Disposition Clinical Impression: Fever, Malnutrition, Dehydration, Hypomagnesemia, Hypokalemia Disposition: ADMITTED IP TO THIS HOSP Condition: Fair Is patient prescribed a controlled substance at d/c from ED?: No Referrals: Mohsen Morris DO [Primary Care Provider] - 1-2 days
[2018-07-25] MEDS ORDERED: IPRATROPIUM-ALBUTEROL 3 ML NEB INHALATION STA (19:08)
[2018-07-25] MEDS ORDERED: SODIUM CHLORIDE 0.9% 1,000 ML IV STA ×2 (19:08→19:23)
[2018-07-25] MEDS ORDERED: SODIUM CHLORIDE 0.9% 500 ML 500 ML IV STA (19:23)
[2018-07-25 19:50] LABS: Anisocytosis Slight; Basophils # (A) 0.1 k/uL (0-0.2); Basophils % (A) 1 %; Eosinophils # (A) 1.2 k/uL (0-0.7); Eosinophils % (A) 14 %; HCT 38.1 % (39.0-53.0); HGB 11.6 gm/dL (13.0-17.5); Hypochromasia Slight; Lymphocytes # (A) 1.2 k/uL (1.0-4.8); Lymphocytes % (A) 13 %; MCH 26.1 pg (25.0-35.0); MCHC 30.5 g/dL (31.0-37.0); MCV 85.4 fL (80.0-100.0); Mean Platelet Volume 7.5; Monocytes # (A) 0.7 k/uL (0-1.0); Monocytes % (A) 7 %; Neutrophils # (A) 5.6 k/uL (1.3-7.7); Neutrophils % (A) 64 %; Platelet Count 245 k/uL (150-450); RBC 4.46 m/uL (4.30-5.90); RDW 16.3 % (11.5-15.5); WBC 8.9 k/uL (3.8-10.6)
[2018-07-25 20:03] LABS: Albumin 2.6 g/dL (3.5-5.0); Calcium 8.9 mg/dL (8.4-10.2); INR 2.4 (<1.2); Magnesium 1.2 mg/dL (1.6-2.3); Partial Thromboplastin Time 28.5 sec (22.0-30.0); Potassium 3.2 mmol/L (3.5-5.1); Prothrombin Time 23.2 sec (9.0-12.0); Total Bilirubin 1.1 mg/dL (0.2-1.3); Total Protein 6.3 g/dL (6.3-8.2)
[2018-07-25 20:06] LABS: Creatine Kinase 90 U/L (55-170)
[2018-07-25 20:20] LABS: Creatine Kinase MB 1.2 ng/mL (0.0-2.4); Troponin I <0.012 ng/mL (0.000-0.034)
[2018-07-25] MEDS ORDERED: POTASSIUM BICARBONATE/CIT AC 20 MEQ TABLET.EFF PO ONE (20:23)
[2018-07-25 20:28] LABS: D-Dimer 3.13 mg/L FEU (<0.60)
--- NOTE | 2018-07-25 20:35 | XR ---
EXAMINATION TYPE: XR chest 2V DATE OF EXAM: 07/25/2018 COMPARISON: 11/01/2017 HISTORY: Hypoxemia TECHNIQUE: Frontal and lateral views of the chest are obtained. FINDINGS: There is patchy pleural thickening along the left and right lateral chest wall. There is n o heart failure. Heart is enlarged. There is chest leads. There is some blunting of the costophrenic angles. IMPRESSION: There are pleural and peripheral pulmonary infiltrates similar to old exam. Small pleura l effusions. No heart failure. The vascularity is improved compared to last exam.
[2018-07-25] MEDS ORDERED: MAGNESIUM OXIDE 400 MG TAB PO STA (20:48)
[2018-07-25] MEDS ORDERED: DOXYCYCLINE 100 MG in SODIUM CHLORIDE 0.9% 100 ML IVPB ONE (21:46)
[2018-07-25] MEDS ORDERED: AMPICILLIN-SULBACTAM 3 GM in SODIUM CHLORIDE 0.9% 100 ML IVPB STA (21:50)
[2018-07-25] MEDS: POTASSIUM CHLORIDE 20 MEQ in WATER FOR INJECTION 1 100ML.BAG IVPB SCH (23:18)
[2018-07-26 00:04] VITALS: BMI 30.9
[2018-07-26] MEDS: MAGNESIUM SULFATE-D5W PMX 1 GM in DEXTROSE/WATER 1 100ML.BAG IVPB SCH ×2 (00:29→01:21)
[2018-07-26] MEDS: POTASSIUM CHLORIDE 20 MEQ in WATER FOR INJECTION 1 100ML.BAG IVPB SCH (00:54)
[2018-07-26] MEDS: AMPICILLIN-SULBACTAM 3 GM in SODIUM CHLORIDE 0.9% 100 ML IVPB SCH ×3 (05:39→17:31)
[2018-07-26] MEDS: DOXYCYCLINE 100 MG in SODIUM CHLORIDE 0.9% 100 ML IVPB SCH ×2 (08:20→20:43)
[2018-07-26] MEDS: LEVOTHYROXINE 75 MCG TAB PO SCH (13:18)
[2018-07-26] MEDS ORDERED: ONDANSETRON 4 MG/2 ML VIAL IVP PRN (13:45)
[2018-07-26] MEDS ORDERED: TEMAZEPAM 15 MG CAP PO PRN (15:10)
[2018-07-26] MEDS ORDERED: HYDROmorphone 0.5 MG/0.5 ML SYRINGE IVP PRN (15:10)
[2018-07-26 15:14] LABS: Appearance,Urine Clear (Clear); Bilirubin,Urine Negative (Negative); Blood,Urine Negative (Negative); Color,Urine Yellow; Glucose,Urine (UA) Negative (Negative); Ketones,Urine Negative (Negative); Leukocyte Esterase,Urine Negative (Negative); Nitrite,Urine Negative (Negative); PH, Urine 5.5 (5.0-8.0); Protein,Urine Trace (Negative); Specific Gravity,Urine 1.005 (1.001-1.035); Urobilinogen,Urine <2.0 mg/dL (<2.0)
--- NOTE | 2018-07-26 16:14 | HP ---
HISTORY AND PHYSICAL DATE OF SERVICE: 07/26/2018 CHIEF COMPLAINTS: Weakness and foot infection. HISTORY OF PRESENT ILLNESS: This 58-year-old gentleman with a past medical history of multiple medical problems including history of rheumatoid arthritis, hypothyroidism, history of kidney stones being followed by Dr. Morris in the outpatient setting recently had a foot surgery from [facility]. Subsequently patient had infection. The patient admitted with for several days and the patient was recently discharged on doxycycline and amoxicillin. The details are not noted at this time. The patient went home and subsequently was noted to have weakness and fever. The patient came to [facility] and admitted for further evaluation. Patient also had some weight loss also. The foot is infected, swollen and the patient's white count is 8.9 and hemoglobin 11.6. Lactic acid is elevated and INR is 2.4. A chest x-ray done on admission showed some old pleural pulmonary infiltrates and small effusions. There is no history of any headache, loss of consciousness or seizures. No history of chest pain, palpitations, hematochezia or melena at this time. PAST MEDICAL HISTORY: History of recent foot surgery, history of rheumatoid arthritis, hypothyroidism , kidney stone, tonsillectomy. MEDICATIONS: Medications are home medications are: 1. Stoy spray daily. 2. Viagra p.r.n. 3. Motrin 800 mg q.4 p.r.n. 4. Vibramycin 100 mg p.o. b.i.d. 5. Xeljanz 11 mg p.o. daily. 6. Lopressor 25 mg p.o. b.i.d. 7. Synthroid 150 mcg p.o. daily. 8. Arava 20 mg p.o. daily. 9. Augmentin 875 mg 1 p.o. b.i.d. ALLERGIES: Allergies are none. FAMILY HISTORY: History of cancer in the family. SOCIAL HISTORY: Previous history of smoking. No history of current smoking or alcohol intake. REVIEW OF SYSTEMS: ENT: No diminished hearing or diminished vision. CARDIOVASCULAR SYSTEM: No angina. RESPIRATORY SYSTEM: As mentioned earlier. GI: No nausea. : As mentioned earlier. NERVOUS SYSTEM: No numbness or weakness. ALLERGY/IMMUNOLOGY: No history of asthma. MUSCULOSKELETAL: As mentioned earlier. HEMATOLOGY/ONCOLOGY: No history of anemia. ENDOCRINE: No history of diabetes mellitus. Hypothyroidism. CONSTITUTIONAL: As mentioned earlier. DERMATOLOGY: Negative. RHEUMATOLOGY: As mentioned earlier. PSYCHIATRY: As mentioned earlier. PHYSICAL EXAMINATION: The patient is alert and oriented x3. Pulse 106, blood pressure 100/65, respiration 18, temperature 98.2, pulse ox 92% on room air. HEENT: Conjunctivae normal. Oral mucosa moist. Neck is no jugular venous distention. No carotid bruit. No lymph node enlargement. CARDIOVASCULAR: S1, S2 muffled. RESPIRATORY SYSTEM: Breath sounds diminished at the bases. A few scattered rhonchi. No crackles. ABDOMEN: Soft, obese, nontender. LEGS: leg significant swelling and infection, erythema and also sutured wounds also 2 wounds present. Minimal discharge noted. Pulses diminished. NERVOUS SYSTEM: Higher function as mentioned. Moves all 4 limbs. No focal motor deficit. LYMPHATICS: No lymphadenopathy of the neck, axillae or groin. SKIN: No ulcer, rash or bleeding. LABS: WBC 8.9, hemoglobin 11.6. INR 2.4. Sodium 137, potassium 3.2. Creatinine is 1.51. Plasma lactic acid 2.3. ASSESSMENT: 1. rt foot infection with failure of outpatient treatment with possible sepsis. 2. History of recent foot surgery infection from [facility]. 3. Increased creatinine with acute renal failure possibly prerenal acute tubular necrosis. 4. Hypokalemia. 5. Anemia, normocytic anemia of chronic disease. 6. History of rheumatoid arthritis. 7. Hypothyroidism. 8. History of kidney stones. 9. Coumadin monitoring. RECOMMENDATIONS AND DISCUSSION: This 58-year-old gentleman who presented with multiple complex medical issues, will monitor the patient closely. Continue the current medications. Continues symptomatic treatment. Recommend to resume the home medication, IV fluids, potassium supplementation, IV antibiotics. I would also recommend a CAT scan of the foot and Infectious Disease and as well as Orthopedic evaluation also. Prognosis guarded because of multiple complex medical issues. Further recommendations to follow. A copy of dictation forwarded to Dr. Morris, who is the primary physician. MMRENOL / HEIDYN: [id number] / MTDD
--- NOTE | 2018-07-26 16:26 | CT ---
EXAMINATION TYPE: CT foot RT wo con DATE OF EXAM: 07/26/2018 COMPARISON: CT 09/17/2017 HISTORY: 58-year-old male with history of surgery to RT foot,, pain, has infection TECHNIQUE: Contiguous axial scanning of the right foot without IV contrast. Coronal and sagittal vickie nstructions performed. 3-D reconstructions generated on a dedicated independent workstation. CT DLP: 315.80 mGycm Automated exposure control for dose reduction was used. FINDINGS: Postsurgical changes of midfoot surgical arthrodesis. Bony bridging is incomplete. We demonstrate ext ensive fragmentation along the midfoot. Interval osteotomies at the proximal fourth and fifth metatar sals.. Postinflammatory or traumatic deformity redemonstrated at the fifth MTP joint, unchanged. Dege nerative changes at the first MTP joint. Prominent dorsal soft tissue swelling. No soft tissue air. There are extensive metal hardware artifacts are present limiting assessment. IMPRESSION: 1. Extensive postsurgical midfoot arthrodesis with plate and screw fixation. Extensive metal hardware artifact limiting assessment. No obvious large abscess though, again, assessment is limited. 2. Prominent soft tissue swelling along the mid foot. 3. Interval osteotomies at the proximal fourth and fifth metatarsals.
[2018-07-26] MEDS: METOPROLOL TARTRATE 25 MG TAB PO SCH (20:44)
[2018-07-26] MEDS: PANTOPRAZOLE 40 MG/10 ML VIAL IVP SCH (20:45)
[2018-07-27] MEDS: AMPICILLIN-SULBACTAM 3 GM in SODIUM CHLORIDE 0.9% 100 ML IVPB SCH ×5 (00:40→23:43)
[2018-07-27] MEDS: LEVOTHYROXINE 75 MCG TAB PO SCH (05:21)
[2018-07-27 07:05] LABS: Anisocytosis Slight; Basophils # (A) 0.1 k/uL (0-0.2); Basophils % (A) 1 %; Eosinophils # (A) 1.3 k/uL (0-0.7); Eosinophils % (A) 17 %; HCT 33.8 % (39.0-53.0); HGB 10.1 gm/dL (13.0-17.5); Hypochromasia Moderate; Lymphocytes % (A) 14 %; MCH 26.2 pg (25.0-35.0); MCV 87.6 fL (80.0-100.0); Mean Platelet Volume 7.6; Monocytes # (A) 0.5 k/uL (0-1.0); Monocytes % (A) 7 %; Neutrophils # (A) 4.2 k/uL (1.3-7.7); Neutrophils % (A) 58 %; Platelet Count 204 k/uL (150-450); RBC 3.86 m/uL (4.30-5.90); RDW 16.2 % (11.5-15.5); WBC 7.2 k/uL (3.8-10.6)
[2018-07-27 07:17] LABS: Prothrombin Time 19.3 sec (9.0-12.0)
[2018-07-27 07:53] LABS: Calcium 8.8 mg/dL (8.4-10.2); Potassium 3.5 mmol/L (3.5-5.1)
[2018-07-27] MEDS: PANTOPRAZOLE 40 MG/10 ML VIAL IVP SCH ×2 (09:25→20:21)
[2018-07-27] MEDS: METOPROLOL TARTRATE 25 MG TAB PO SCH ×2 (09:26→20:21)
[2018-07-27] MEDS: SODIUM CHLORIDE 0.65% NASAL SPRAY 44 ML BTL INTRANASAL SCH (09:26)
[2018-07-27] MEDS: TOFACITINIB CITRATE 11 MG PO SCH (09:26)
[2018-07-27] MEDS: DOXYCYCLINE 100 MG in SODIUM CHLORIDE 0.9% 100 ML IVPB SCH ×2 (09:27→20:21)
--- NOTE | 2018-07-27 10:34 | CONS ---
CONSULTATION DATE OF SERVICE: 07/26/2018 REASON FOR CONSULTATION: Left foot postsurgical infection. HISTORY OF PRESENT ILLNESS: The patient is a 58-year-old male who is status post a left ankle fusion done at [facility]. The patient did mention that his postop course was complicated by developing of an infection that needs debridement and drainage of an abscess. However, the patient is not sure about the name of this infection. He did have another admission to the hospital and was just released from the [facility] yesterday on oral Augmentin and doxycycline. The patient did have a home care arranged. When the home care nurse came to open him to home care, noted the patient was slightly hypertensive. The patient said he was feeling weak and tired and no energy. The home care nurse did advise the patient to go to the hospital to be evaluated. The patient denies high-grade fever, rigors or chills. The patient did have mild dull aching pain to his right foot with intensity of about 4 to 5/10, and no radiation. The patient did have a necrotic patch on the dorsum of his right foot as well as on his middle part of the foot. The patient said that his surgeon was keeping it dry and let the skin dry off and peel by itself and was not applying any specific lotions to it. Once again, the patient did not remember if there was any specific bacteria growing in those cultures. However, he was advised Augmentin and doxycycline. The patient denies having any chest pain or shortness of breath. No cough. No abdominal pain. No nausea, vomiting, or any diarrhea. The patient was evaluated by the ER physician. The patient was started on Unasyn and Doxycycline. Infectious Disease was consulted for further recommendation regarding antibiotic therapy. The patient did have a CT of the right foot completed which shows extensive postsurgical midfoot arthrodesis with plate and screw fixation extensive metal hardware. Soft tissue swelling but no large abscess. REVIEW OF SYSTEMS: CONSTITUTIONAL: Positive for weakness. Denies any fever. Eyes no complaint. ENT no complaint. Respiratory no complaint. Cardiovascular no complaint. Genitourinary no complaint. GASTROINTESTINAL: No complaint. Musculoskeletal as per HPI. INTEGUMENTARY as per HPI. Psychological no complaint. Endocrine no complaint. Neurological no complaint. PAST MEDICAL HISTORY: Rheumatoid arthritis, hypothyroidism, kidneys stones. Right foot infection. PAST SURGICAL HISTORY: Tonsillectomy, right foot arthrodesis. SOCIAL HISTORY: Remote history of smoking. Occasionally drinks. No drug use. FAMILY HISTORY: Mother with history of cancer. ALLERGIES: No known drug allergies. MEDICATION: Medications include the patient is currently on [place], Unasyn 3 g q.6h, Doxycycline Dilaudid. Synthroid, Lopressor, Zofran, Protonix and Restoril. EXAMINATION: Blood pressure is 120/60 with a pulse of 111, temperature 98.1. He is 94% on room air. General description is a middle-aged male lying in bed in no distress. No tachypnea or accessory muscles of respiration use. HEENT: Shows slight pallor. No scleral icterus. Oral mucosa membranes are dry. No pharyngeal erythema or thrush. Neck: Trachea central. No thyromegaly. Lungs unlabored breathing. Clear to auscultation anteriorly. Heart S1, S2. Regular rate and rhythm. ABDOMEN: Soft, no tenderness. Extremities: No edema of the feet. Examination of the right foot, the patient did have a necrotic wound on dorsum of the right foot with minimal surrounding swelling. No significant redness. Minimal warm to touch and foul- smelling drainage. Neurological: Patient is awake, alert, oriented times three. Mood and affect normal. LABS: Hemoglobin is 11.1, white count of 8.9 with a BUN of 10, creatinine 1.51. AST slightly elevated. UA has been negative. Lactic acid 2.3. CT report as mentioned above. DIAGNOSTIC IMPRESSION AND PLAN: Patient with recent right foot arthrodesis, fusion in this patient whose clinical course complicated by postop infection for which the patient was managed at [facility]. The patient was supposed to be on oral Augmentin in the outpatient setting. The patient not sure the type of infection he has. CT of the foot did not show any deep abscess. PLAN: 1. We will try to obtain the culture data from [facility]. 2. We will keep the patient on Unasyn 3 g q.6h and Doxycycline which can be transitioned to oral. 3. We will apply dry dressings to keep the area dry. Ideally, would have advised Santyl to the necrotic skin to take the slough off. However, the patient did mention that his orthopedic surgeon did not want him having any cream applied to it. 4. The patient may benefit to be seen by a general surgeon and possible transfer to the [facility]. 5. We will follow up on his clinical condition to further adjust medication if needed. Thank you for this consultation. We will follow this patient with you. NURYSL / IJN: [id number] / MTDD
--- NOTE | 2018-07-27 12:02 | P.CNOR ---
History of Present Illness - [facility] Consult date: 07/27/18 Consult reason: other (Right foot post surgical infection) History of present illness: The patient is a 58-year-old male who presented to the hospital yesterday with a fever and weakness. The patient states that he did undergo a mid foot fusion on 07/02/2018 by a physician at [facility]. The patient was seen postoperatively and was placed in a cast. The patient follow-up 1 week later for cast removal and was found to have cellulitis to the foot. The patient was admitted at [facility] for IV antibiotics. The patient was released 2 days ago and was seen by home care yesterday. The patient was weak and hypotensive, and the nurse suggested him go to the emergency department. The patient was admitted for IV antibiotics and further evaluation. The patient has been seen by Dr. Blanton, infectious disease. Antibiotics have been adjusted to Unasyn and doxycycline. Today, the patient states that he is feeling slightly better. He denies fever, chills, rigors, shortness breath, abdominal pain, and chest pain today. Review of Systems Constitutional: Denies chills, Denies fatigue, Denies fever Cardiovascular: Denies chest pain, Denies shortness of breath Respiratory: Denies cough Gastrointestinal: Denies diarrhea, Denies nausea, Denies vomiting Musculoskeletal: right: foot pain, foot stiffness, foot swelling Past Medical History Past Medical History: Rheumatoid Arthritis (RA), Thyroid Disorder Additional Past Medical History / Comment(s): right foot infection, KIDNEY STONES History of Any Multi-Drug Resistant Organisms: None Reported Past Surgical History: Tonsillectomy Additional Past Surgical History / Comment(s): right foot surgery Past Anesthesia/Blood Transfusion Reactions: No Reported Reaction Past Psychological History: No Psychological Hx Reported Smoking Status: Former smoker Past Alcohol Use History: Occasional Additional Past Alcohol Use History / Comment(s): QUIT SMOKING 2003 Past Drug Use History: None Reported - Past Family History Mother Family Medical History: Cancer Medications and Allergies Home Medications Medication Instructions Recorded Confirmed Type Leflunomide [Arava] 20 mg PO DAILY 10/17/16 07/25/18 History Levothyroxine Sodium [Synthroid] 150 mcg PO DAILY 10/17/16 07/25/18 History Tofacitinib Citrate [Xeljanz] 11 mg PO DAILY 10/17/16 07/25/18 History Amoxic-Pot Clav 875-125Mg 1 tab PO Q12HR 07/25/18 07/25/18 History [Augmentin 875-125] Doxycycline [Vibramycin] 100 mg PO BID 07/25/18 07/25/18 History Ibuprofen [Motrin Ib] 800 mg PO Q4H PRN 07/25/18 07/25/18 History Metoprolol Tartrate [Lopressor] 25 mg PO BID 07/25/18 07/25/18 History Sildenafil Citrate [Viagra] 100 mg PO ONCE 07/25/18 07/25/18 History Sodium Chloride [Coleman] 1 spray EA NOSTRIL DAILY 07/25/18 07/25/18 History Allergies Allergy/AdvReac Type Severity Reaction Status Date / Time No Known Allergies Allergy Verified 07/25/18 19:00 Physical Examination The patient does not appear in acute distress. Alert and orientated x3. Incisions appear fine. There appears to be old blister sites that are healing. No obvious purulence noted. There is diffuse swelling and slight erythema to the foot. No abscess is seen. Sutures are still in place. Calf is soft and nontender. He is able to wiggle his toes slightly without difficulty. Sensation and circulatory status is intact. Results - Labs Labs: Abnormal Lab Results - Last 24 Hours (Table) 07/26/18 07/27/18 07/27/18 Range/Units 14:51 06:29 06:29 RBC 3.86 L (4.30-5.90) m/uL Hgb 10.1 L (13.0-17.5) gm/dL Hct 33.8 L (39.0-53.0) % MCHC 30.0 L (31.0-37.0) g/dL RDW 16.2 H (11.5-15.5) % Eosinophils # 1.3 H (0-0.7) k/uL PT 19.3 H (9.0-12.0) sec INR 2.0 H (<1.2) BUN (9-20) mg/dL Creatinine (0.66-1.25) mg/dL Glucose (74-99) mg/dL Urine Protein Trace H (Negative) 07/27/18 Range/Units 06:29 RBC (4.30-5.90) m/uL Hgb (13.0-17.5) gm/dL Hct (39.0-53.0) % MCHC (31.0-37.0) g/dL RDW (11.5-15.5) % Eosinophils # (0-0.7) k/uL PT (9.0-12.0) sec INR (<1.2) BUN 8 L (9-20) mg/dL Creatinine 1.40 H (0.66-1.25) mg/dL Glucose 100 H (74-99) mg/dL Urine Protein (Negative) Microbiology - Last 24 Hours (Table) 07/25/18 19:20 Blood Culture - Preliminary Blood No Growth after 24 hours 07/26/18 02:30 Urine Culture - Preliminary Urine,Clean Catch H & H 07/25/18 07/27/18 Range/Units 19:20 06:29 Hgb 11.6 L 10.1 L (13.0-17.5) gm/dL Hct 38.1 L 33.8 L (39.0-53.0) % Coagulation 07/25/18 07/27/18 Range/Units 19:20 06:29 INR 2.4 H 2.0 H (<1.2) Result Diagrams: 07/27/18 06:29 07/27/18 06:29 - Diagnostic results Ankle/Foot CT: image reviewed (No large abscesses or fluid collections noted. The patient is status post midfoot arthrodesis.) Assessment and Plan (1) Right foot infection Current Visit: Yes Status: Acute Code(s): L08.9 - LOCAL INFECTION OF THE SKIN AND SUBCUTANEOUS TISSUE, UNSP SNOMED Code(s): 936584592 (2) Fever Current Visit: Yes Status: Acute Code(s): R50.9 - FEVER, UNSPECIFIED SNOMED Code(s): 430274481 Plan: The clinical and CT findings were discussed with the patient. The case was also discussed with Dr. Jose Walters. No surgical intervention is warranted at this time. The patient will continue IV antibiotics per infectious disease. He was encouraged to elevate the foot. Continue nonweightbearing to the right lower extremity. The patient does have a follow-up with his surgeon on . Ideally, if we can get the patient discharged home on either oral or IV antibiotics with a follow-up with his surgeon this week. If the infection continues to worsen, the patient may be need a transfer to [facility]. We will continue to follow patient closely and make further recommendations as needed.
[2018-07-27] MEDS: HYDROcodone/APAP 5-325MG 1 EACH TAB PO PRN (20:25)
--- NOTE | 2018-07-27 22:43 | PN ---
PROGRESS NOTE DATE OF SERVICE: 07/27/2018. REASON FOR FOLLOWUP: Left foot postsurgical infection. INTERVAL HISTORY: The patient is currently afebrile. He has been breathing comfortably. Denies having any chest pain or shortness of breath, cough, abdominal pain. Mostly has pain to the left foot area. PHYSICAL EXAMINATION: Blood pressure 110/72 with a pulse of 105, temperature 98.4. GENERAL DESCRIPTION: A middle-aged male lying in bed in no distress. RESPIRATORY SYSTEM: Unlabored breathing. Clear to auscultation anteriorly. HEART: S1, S2. Regular rate and rhythm. ABDOMEN: Soft, no tenderness. EXTREMITIES: Right foot is currently dressed up, no obvious drainage on the dressing. LABS: Blood culture has been negative so far. No cultures has been provided from [facility]. DIAGNOSTIC IMPRESSION AND PLAN: Patient with right foot fusion with postop surgical infection. The patient did have a necrotic patch on the dorsum of the right foot with necrotic patch seen on the right foot lateral border. The patient is currently running low-grade fever, however, white count has been normal. Blood culture has been negative. We will try to obtain the micro data from [facility] tomorrow and the patient remains to be afebrile he can transitioned to oral antibiotics and maybe to go home with instructions to follow up with his physician at [facility]. Continue supportive care. MMODL / IJN: [id number] / MTDD
--- NOTE | 2018-07-28 05:40 | PN ---
PROGRESS NOTE DATE OF SERVICE: 07/27/2018 HISTORY OF PRESENT ILLNESS: This 58-year-old gentleman admitted with right foot infection with failure of outpatient treatment possible sepsis. Multiple consultants are following the patient closely. Infectious Disease, Dr. Blanton, has also seen the patient. Patient had previous surgery, recent surgery at [facility]. The patient was also admitted at [facility] for some infection, details are not available at this time. The patient came over the weekend. The patient had necrotic on the dorsum of the foot. PHYSICAL EXAMINATION: On exam, alert and oriented x3. Pulse is 105, blood pressure 110/62, respirations 16, temperature 99.4, pulse ox 96% on room air. HEENT: Conjunctivae normal. NECK: No jugular venous distention. CARDIOVASCULAR: S1, S2 muffled. RESPIRATORY: Breath sounds diminished at the bases. No rhonchi, no crackles. ABDOMEN: Soft, nontender. LEGS: No edema, no swelling. NERVOUS SYSTEM: No focal deficits. The foot CAT scan showed extensive postsurgical midfoot arthrodesis and extensive hardware and interval osteotomies also noted. ASSESSMENT: 1. Right foot infection post surgery with failure of outpatient treatment with possible sepsis, present on admission. 2. History of recent foot surgery and infection at [facility]. 3. Increased creatinine with acute renal failure, possibly prerenal, acute tubular necrosis, present on admission. 4. Hypokalemia. 5. Anemia, normocytic anemia of chronic disease. 6. History of rheumatoid arthritis. 7. History of hypothyroidism. 8. History of kidney stones. 9. Coumadin monitoring. RECOMMENDATIONS AND DISCUSSION: Recommend to continue current medications. Continued with monitoring and symptomatic treatment. Otherwise cultures are negative so far. Continue with broad- spectrum IV antibiotics and we will follow the patient closely with consultants and will consider transfer to [facility]. Guarded prognosis. Further recommendations to follow. MMODL / IJN: [id number] / ADAMS
[2018-07-28] MEDS: LEVOTHYROXINE 75 MCG TAB PO SCH (06:01)
[2018-07-28] MEDS: AMPICILLIN-SULBACTAM 3 GM in SODIUM CHLORIDE 0.9% 100 ML IVPB SCH ×2 (06:01→13:21)
[2018-07-28] MEDS: TOFACITINIB CITRATE 11 MG PO SCH (08:32)
[2018-07-28] MEDS: SODIUM CHLORIDE 0.65% NASAL SPRAY 44 ML BTL INTRANASAL SCH (08:33)
[2018-07-28] MEDS: PANTOPRAZOLE 40 MG/10 ML VIAL IVP SCH (08:33)
[2018-07-28] MEDS: METOPROLOL TARTRATE 25 MG TAB PO SCH (08:33)
[2018-07-28] MEDS: DOXYCYCLINE 100 MG in SODIUM CHLORIDE 0.9% 100 ML IVPB SCH (08:33)
[2018-07-28] MEDS: HYDROcodone/APAP 5-325MG 1 EACH TAB PO PRN (08:36)
[2018-07-28 08:53] LABS: Anisocytosis Slight; Basophils % (A) 1 %; Eosinophils # (A) 1.2 k/uL (0-0.7); Eosinophils % (A) 14 %; HCT 32.7 % (39.0-53.0); HGB 9.9 gm/dL (13.0-17.5); Hypochromasia Moderate; Lymphocytes # (A) 1.1 k/uL (1.0-4.8); Lymphocytes % (A) 14 %; MCH 25.9 pg (25.0-35.0); MCHC 30.3 g/dL (31.0-37.0); MCV 85.6 fL (80.0-100.0); Mean Platelet Volume 7.8; Monocytes # (A) 0.6 k/uL (0-1.0); Monocytes % (A) 7 %; Neutrophils % (A) 62 %; Platelet Count 212 k/uL (150-450); RBC 3.82 m/uL (4.30-5.90); RDW 16.2 % (11.5-15.5)
[2018-07-28 08:59] LABS: INR 1.9 (<1.2); Prothrombin Time 18.7 sec (9.0-12.0)
[2018-07-28 09:07] LABS: Calcium 8.5 mg/dL (8.4-10.2); Potassium 3.1 mmol/L (3.5-5.1)
[2018-07-28 12:33] VITALS: BP 110/72; RESP 20; TEMP 98
[2018-07-28 16:08] VITALS: PULSE 0
--- NOTE | 2018-07-28 17:55 | PN ---
PROGRESS NOTE DATE OF SERVICE: 07/28/2018 REASON FOR FOLLOWUP: Right foot cellulitis, post surgical. INTERVAL HISTORY: The patient is currently afebrile. He is breathing comfortably. Denies having any chest pain or shortness of breath or cough. No abdominal pain or any worsening pain to the right foot area. PHYSICAL EXAMINATION: Blood pressure 110/72 with a pulse of 98, temperature 98. He is 93% on room air. General description is a middle-aged male lying in bed in no distress. RESPIRATORY SYSTEM: Unlabored breathing. Clear to auscultation anteriorly. HEART: S1, S2. Regular rate and rhythm. ABDOMEN: Soft. Right foot overall swelling and redness have improved. He did have a necrotic wound on the dorsum of the right foot but no surrounding cellulitis or any drainage. The right foot lateral medial border incision is currently intact with some dried-up blood but no definite cellulitis. LABS: Hemoglobin is 9.9, white count 8.0, with a BUN of 6, creatinine 1.12. DIAGNOSTIC IMPRESSION AND PLAN: Patient with right foot cellulitis, post surgical. The patient did have extensive surgery done at [facility] and was on oral Augmentin and doxycycline, currently on Unasyn and doxycycline. That will be transitioned to oral Augmentin and doxycycline. Local care with non-adherent dressing and mild Jeff wrap to keep some of the swelling down. Followup with his surgeon next week. Plan of care was discussed in detail with the family members as well as the attending physician working on discharge. MMODL / IJN: [id number] /
--- NOTE | 2018-07-29 04:44 | DS ---
DISCHARGE SUMMARY DATE OF ADMISSION: July 25, 2018. DATE OF DISCHARGE: July 28, 2018. FINAL DIAGNOSES: 1. Acute right foot wound with cellulitis from recent surgery. 2. Obesity BMI 31.0. 3. Recent right foot surgery done at [facility] on July 01. 4. Chronic rheumatoid arthritis. 5. Hypothyroid. CONSULTATIONS: Dr. Blanton from Infectious Disease, Dr. Walters from [facility]. HOSPITAL COURSE: This patient had a foot surgery done at [facility] around July 01, which was primarily a midfoot fusion. The patient was put in a cast and after a week, the cast was removed and patient found have cellulitis of the foot. The patient was admitted to [facility] for IV antibiotics and was discharged 2 days prior to admission here with Augmentin and doxycycline. The patient was admitted here and started on antibiotics and responded well to the same. Doing much better. Today, the wound was looking much better than when he had come in. I discussed with Dr. Blanton from Infectious Disease. The patient is to be discharged on Augmentin and doxycycline and follow up with the surgeon, which he has an appointment in the next 3 days. The patient also seen by Orthopedics and no further surgical intervention by them. Overall feeling better. Pain is much controlled. The patient's blood cultures were negative. PHYSICAL EXAMINATION: Temperature 98, pulse 98, respiration 20, blood pressure 110/72, pulse ox 93 percent. Right foot in a dressing. Lungs fair entry. LABS: White count 8, hemoglobin 9.9, potassium 3.1, BUN 6, creatinine 1.12. Discussion and discharge planning more than 35 minutes. DISCHARGE MEDICATIONS: 1. Arava 20 mg daily. 2. Synthroid 150 mcg daily. 3. Xeljanz 11 mg p.o. daily. 4. Augmentin 875 1 tablet p.o. q.12h. 5. Doxycycline 100 mg b.i.d. 6. Motrin 800 mg q.4 p.r.n. 7. Lopressor 25 mg b.i.d. 8. Viagra p.r.n. 9. [place] spray as before. FOLLOWUP: With his [facility], where he had surgery in [address] Morris in 1 week. [facility] to continue. Copy to Dr. Morris. MMODL / IJN: [id number] /
--- NOTE | 2018-07-30 09:31 | CDI ---
Documentation Clarification Form Date: 07/30/2018 9:15:35 AM From: Nidhi Sun Phone: If you have a question about this query, please contact Jody Andrade, [employer] Twister Winder at [phone] between 8am and 5pm. Jody Andrade MBA, P[employer] LE[employer] MELTER HELPER, CCS, CCDS [employer] [facility] Reza [email or web address] [email or web address] Admit Date: 07/25/2018 9:43:00 PM Patient Name: Lokesh Zee Visit Number: [id number] Discharge Date: 07/28/2018 5:55:00 PM ATTENTION: The Clinical Documentation Specialists (CDI) and [facility] Coding Staff appreciate your assistance in clarifying documentation. Please respond to the clarification below the line at the bottom and electronically sign. The CDI & [facility] Coding staff will review the response and follow-up if needed. Please note: Queries are made part of the Legal Health Record. If you have any questions, please contact the author of this message via ITS. Dr. Curtis: The patient presented with the following post foot fusion cellulitis. H and P documents possible sepsis. Please clarify if patient had sepsis or was it ruled out. Not carried to [facility]. History/Risk Factors: postoperative cellulitis Clinical Indicators: failed outpatient treatment, cellulitis, tachcardia 114 WBC 8.9 Lactic acid: Blood cultures: negative Vitals signs on admission: 98.6F, 114, 18, 108/69, 95% Treatment: IV abx. ID Consult: post of infection Antibiotics: Unasyn and Doxicycline Other: Monitored In your professional opinion, please clarify if patient had sepsis or was it ruled out. Condition Sepsis ruled out Sepsis Other, please specify Unable to determine SIRS Criteria (2 or more of the following may indicate SIRS): -Temperature < 96.8F (36C) or > 101.0F (38.3C) -Heart Rate > 90 bpm -Respiratory Rate > 20 breaths/min or PaCO2 < 32 mmHg -White Blood Cell Count > 12,000 or < 4,000 cells/mm3 or > 10% bands -Lactate >2.0 mmol/L (>4.0 is equivalent to septic shock) Unable to determine MTDD
--- NOTE | 2018-07-30 09:41 | CDI ---
Documentation Clarification Form Date: 07/30/2018 9:31:38 AM From: Nidhi Sun Phone: If you have a question about this query, please contact Jody Andrade Strategic Partnership Specialist at [phone] between 8am and 5pm. Admit Date: 07/25/2018 9:43:00 PM Patient Name: Lokesh Zee Visit Number: [id number] Discharge Date: 07/28/2018 5:55:00 PM ATTENTION: The Clinical Documentation Specialists (CDI) and [facility] Coding Staff appreciate your assistance in clarifying documentation. Please respond to the clarification below the line at the bottom and electronically sign. The CDI & [facility] Coding staff will review the response and follow-up if needed. Please note: Queries are made part of the Legal Health Record. If you have any questions, please contact the author of this message via ITS. Dr. Jessica Curtis Acute Renal failure possibly prerenal ATN was documented in the H and P. Please clarify if patient at prerenal ATN Patients admitting BUN/CR/GFR: BUN 10 Creat/ 1.51 GRF 51 Clinical Indicators: dehydration, hypomag, malnutrit Treatment: hydration IVF YES In order to capture the severity of condition, please clarify if the condition signifies: Acute renal failure, Please specify etiology (if known): Cortical Necrosis ? Medullary Necrosis ? Tubular Necrosis Other, please specify Unable to determine Unable to determine MTDD
== END 2018-07-28 17:55 | disposition home or self-care (01) | DRG 863 ==
LOC: EC 18:11 → 3NMEDONC 21:43
PROVIDERS: ADMIT Hospitalist; ATTEND Hospitalist
DX: T81.40XA Infection following a procedure, unspecified, initial encounter (principal); E46 Unspecified protein-calorie malnutrition; L03.115 Cellulitis of right lower limb; N17.9 Acute kidney failure, unspecified; D63.8 Anemia in other chronic diseases classified elsewhere; E03.9 Hypothyroidism, unspecified; E66.9 Obesity, unspecified; E83.42 Hypomagnesemia; E86.0 Dehydration; E87.6 Hypokalemia; M06.9 Rheumatoid arthritis, unspecified; Z68.31 Body mass index [BMI] 31.0-31.9, adult; Z79.890 Hormone replacement therapy; Z79.899 Other long term (current) drug therapy; Z80.9 Family history of malignant neoplasm, unspecified; Z87.442 Personal history of urinary calculi; Z87.891 Personal history of nicotine dependence; Z98.1 Arthrodesis status
CPT/HCPCS: 36415; 71046; 80048; 80053; 81003; 82550; 82553; 83605; 83735; 83880; 84484; 85025; 85379; 85610; 85730; 87040; 87086; 87324; 87502; 93005; 96360; 96361; 99285

== ENCOUNTER → 2019-03-25 | Outpatient (CLI) | payer BC ==
--- NOTE | 2019-03-26 08:37 | CT ---
EXAMINATION TYPE: CT chest w con DATE OF EXAM: 03/25/2019 COMPARISON: 06/16/2018 HISTORY: Rheumatoid lung disease. Cough. CT DLP: 845.6 mGycm, Automated exposure control for dose reduction was used. CONTRAST: Performed injected with 100ml mL of Isovue 300. TECHNIQUE: Axial images were obtained at 5 mm thick sections. Reconstructed images are reviewed on Veosearch computer in the coronal plane. FINDINGS: Portion of the thyroid visualized is normal. Tiny pleural-based nodule may be present in the upper outer right chest. This was present previously and unchanged. Series 4 image 16. Azygos fissure is present, normal variant. There is a 0.5 cm nodule within the medial left upper lobe. Series 4 image 21. This is a new finding from 2018. There is a 0.7 cm nodule adjacent to the aortic arch and the left apex, series 4 image 21. This is a new finding. There is a stable pleural-based nodular type density measuring 0.9 cm anterior left lung. Series 4 im age 30. There is a 0.9 cm nodular density which appears pleural-based in the posterior left mid lung. Series 4 image 34. This was present previously. A lobular density in the periphery of the right posterior la teral lung measures 1.8 cm and is somewhat smaller than the comparison study. Series 4 image 35. Smal l consolidation or density is in the posterior medial left lung, series 4 image 35. This area is smal ler than the comparison. There is a cavitary lesion within the periphery of the left mid to lower lung field adjacent to the p leural margin measuring 2.9 cm. This area is stable in size and cavitation appears to be new. A simil ar cavitary area is in the posterior medial left lung measures 1.3 cm and is smaller than the compari son study, Cavitation is new. Pleural-based density measuring 1.3 cm and the left lower lobe. Series 4 image 42 has a crescentic lucency may be a small developing cavitary lesion. This nodule is smaller than comparison. There is a 0.9 cm nodule in the right lower lobe. Series 4 image 42. This may be slightly larger and more dense than the comparison's 0.5 cm. There is a pleural-based nodule measuring 2.9 cm x 1.2 cm which is smaller than the comparison study. Series 4 image 45. There are larger cavitary lesions present previously in the posterior bilateral l marjan bases. The cavitation on the right may be new. Series 4 image 54. This pleural-based nodule measu res 2.2 cm which is slightly larger than 1.8 cm previous. There is a lobular density within the posterior medial right lower lobe measuring 2.5 x 1.1 cm presen t previously. No enlarged mediastinal or hilar adenopathy is evident. The ascending aorta diameter at the level o f the main pulmonary artery is 4.0 cm. The main pulmonary artery diameter at the bifurcation is 3.2 cm. Very subtle minimal pericardial effusion may be present. Small lateral pleural effusions are present slightly larger on the left. Limited CT sections are obtained through the upper abdomen. A cyst is superior lateral left kidney morgan perior pole measuring 3.8 cm and 7 Hounsfield units IMPRESSIONS: 1. Multiple bilateral lung nodules. Couple of small subcentimeter nodules are new. There is some new nodular cavitations present. Majority of the nodules previously identified remain present and stable from comparison. 2. Minimal pericardial effusion may be present. Small left and minimal right pleural effusion may be present.
== END ==
LOC: RADCTMAIN 17:08
PROVIDERS: ATTEND Internal Medicine Critical Care Medicine
DX: I31.3 Pericardial effusion (noninflammatory) (principal); J90 Pleural effusion, not elsewhere classified; R91.8 Other nonspecific abnormal finding of lung field; M05.10 Rheumatoid lung disease with rheumatoid arthritis of unspecified site
CPT/HCPCS: 71260; Q9967

== ENCOUNTER 2019-04-18 05:25 | Inpatient (IN) | payer BC ==
[2019-04-18] MEDS ORDERED: MORPHINE SULFATE 2 MG/ML SYRINGE IVP STA (06:40)
[2019-04-18] MEDS ORDERED: SODIUM CHLORIDE 0.9% 1,000 ML IV STA (06:40)
--- NOTE | 2019-04-18 06:56 | XR ---
EXAMINATION TYPE: XR foot complete RT DATE OF EXAM: 04/18/2019 COMPARISON: NONE HISTORY: Foot pain TECHNIQUE: 3 views FINDINGS: There is a plate with multiple screws fixing the talonavicular joint and the first tarsomet atarsal joint. There is plate fixing also the second and third tarsometatarsal joints. There is later al subluxation of the second third fourth fifth metatarsals. There are plantar and Achilles calcaneal spurs. There is soft tissue swelling of the forefoot. There is erosion of the fifth metatarsal head. There is narrowing and spurring at the first MP joint. There is mild pes planus. IMPRESSION: Midfoot extensive fusion surgery. Pes planus. There is Lisfranc dislocations of the tarso metatarsal joints. Comparison with an old exam would be helpful. No definite sign of osteomyelitis. S oft tissue swelling.
--- NOTE | 2019-04-18 07:05 | ED ---
Extremity Problem HPI - General Source: patient Mode of arrival: ambulatory Limitations: no limitations <Arlette Doyle - Last Filed: 04/18/19 09:23> <Chalo Flower - Last Filed: 04/18/19 09:45> - General Chief complaint: Extremity Problem,Nontraumatic Stated complaint: R foot pain Time Seen by Provider: 04/18/19 06:09 - History of Present Illness Initial comments: 58-year-old male history of hypertension and rheumatoid arthritis as well as previous right foot reconstruction-performed a [facility] presenting to emergency department today for chief complaint of right foot pain. 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 She states that since the surgery/ post operative infection patient has had chronic swelling of the foot and has been wearing compression stockings. His states that she brought him a new pair of tighter compression stockings that he began wearing Saturday, patient states that Saturday throughout the day he had no pain. When he took the stockings off and patient had increasing pain. Patient denies coolness or pallor, denies increased swelling, redness, fever, flu like symptoms. Patient states that pain is diffuse, however he did note some draining and pain at the site of a calus with an ulcerated center. Denies calf pain or swelling. Denies history of DVT/PE. Remaining ROS (-) no chest pain or SOB, abdominal pain. Upon arrival patient appears well. No signs of acute distress (Arlette Doyle) - Related Data Home Medications Medication Instructions Recorded Confirmed Leflunomide [Arava] 20 mg PO DAILY 10/17/16 04/18/19 Levothyroxine Sodium [Synthroid] 150 mcg PO DAILY 10/17/16 04/18/19 Metoprolol Succinate (ER) [Toprol 50 mg PO DAILY 04/18/19 04/18/19 Xl] Tofacitinib Citrate [Xeljanz Xr] 11 mg PO DAILY 04/18/19 04/18/19 methylPREDNISolone [Medrol] 4 mg PO DAILY 04/18/19 04/18/19 Allergies Allergy/AdvReac Type Severity Reaction Status Date / Time No Known Allergies Allergy Verified 04/18/19 08:21 Review of Systems ROS Other: All systems not noted in ROS Statement are negative. <Arlette Doyle - Last Filed: 04/18/19 09:23> ROS Other: All systems not noted in ROS Statement are negative. <Chalo Flower - Last Filed: 04/18/19 09:45> ROS Statement: Those systems with pertinent positive or pertinent negative responses have been documented in the HPI. Past Medical History Past Medical History: Rheumatoid Arthritis (RA), Thyroid Disorder Additional Past Medical History / Comment(s): right foot infection, KIDNEY STONES History of Any Multi-Drug Resistant Organisms: None Reported Past Surgical History: Tonsillectomy Additional Past Surgical History / Comment(s): right foot surgery Past Anesthesia/Blood Transfusion Reactions: No Reported Reaction Past Psychological History: No Psychological Hx Reported Smoking Status: Former smoker Past Alcohol Use History: Occasional Past Drug Use History: None Reported - Past Family History Mother Family Medical History: Cancer <Arlette Doyle - Last Filed: 04/18/19 09:23> General Exam Limitations: no limitations <Arlette Doyle - Last Filed: 04/18/19 09:23> - General Exam Comments Initial Comments: General: The patient is awake and alert, in no distress, and does not appear acutely ill. Eye: +3 mm pupils are equal, round and reactive to light, extra-ocular movements are intact. No nystagmus. There is normal conjunctiva bilaterally. No signs of icterus. Ears, nose, mouth and throat: There are moist mucous membranes and no oral lesions. Neck: The neck is supple, there is no tenderness or JVD. Cardiovascular: There is a regular rate and rhythm. No murmur, rub or gallop is appreciated. Respiratory: Lungs are clear to auscultation, respirations are non-labored, breath sounds are equal. No wheezes, stridor, rales, or rhonchi. Musculoskeletal: On inspection of the feet bilaterally there is significant soft tissue swelling of the right foot in comparison the left with scarring. No erythema. warmth to palpation and a hard callus with soft center, dried serous fluid present. +2 DP pulse b/l. Neurological: A&O x 3. CN II-XII grossly. There are no obvious motor or sensory deficits. Coordination appears grossly intact. Speech is normal. Skin: Skin is warm and dry and no rashes or lesions are noted. Psychiatric: Cooperative, appropriate mood & affect, normal judgment. (Arlette Doyle) Course Vital Signs 04/18/19 04/18/19 05:32 09:19 Temperature 98.6 F Pulse Rate 109 H 60 Respiratory 20 16 Rate Blood Pressure 100/64 111/68 O2 Sat by Pulse 96 Oximetry Medical Decision Making - Lab Data Result diagrams: 04/18/19 07:10 04/18/19 07:10 <Arlette Doyle - Last Filed: 04/18/19 09:23> - Lab Data Result diagrams: 04/18/19 07:10 04/18/19 07:10 <Chalo Flower - Last Filed: 04/18/19 09:45> - Medical Decision Making 38-year-old male presenting for evaluation of increasing right foot pain. Patient states he is unable to weight-bear. Patient states he appears to reverse without difficulty. Patient has noted that he has a small callus with central ulceration that has spontaneously drained. Patient states he is unsure if this is the cause. Patient denies a fluids symptoms fever does not appear toxic. Patient does have significant warmth to palpation of the foot increasing pain and inability to weight-bear. Laboratory studies show leukocytosis. Patient was evaluated and person him attending provider who recommends admission with vancomycin and Rocephin for possible infection of a foot ulceration. Patient is agreeable with admission. Attending spoke with Dr. Horowitz who a ccepted admission. (Arlette Doyle) Patient reevaluated by myself, Dr. Flower. Patient does have chronic right foot changes. Patient does have callus formation on the right plantar aspect. There is some mild erythema. Patient states he is unable to bear weight. There is concern for early infection. Case was discussed in detail with Dr. Horowitz, who will admit covering for Dr. Morris. Patient reevaluated and reexamined by myself. I do agree with PA findings. This includes diagnostic interpretation and treatment plan. (Chalo Flower) - Lab Data Lab Results 04/18/19 04/18/19 Range/Units 07:10 07:10 WBC 15.5 H (3.8-10.6) k/uL RBC 4.43 (4.30-5.90) m/uL Hgb 12.3 L (13.0-17.5) gm/dL Hct 39.0 (39.0-53.0) % MCV 87.9 (80.0-100.0) fL MCH 27.8 (25.0-35.0) pg MCHC 31.6 (31.0-37.0) g/dL RDW 18.3 H (11.5-15.5) % Plt Count 177 (150-450) k/uL Neutrophils % 85 % Lymphocytes % 7 % Monocytes % 5 % Eosinophils % 1 % Basophils % 1 % Neutrophils # 13.2 H (1.3-7.7) k/uL Lymphocytes # 1.1 (1.0-4.8) k/uL Monocytes # 0.8 (0-1.0) k/uL Eosinophils # 0.1 (0-0.7) k/uL Basophils # 0.1 (0-0.2) k/uL Hypochromasia Marked Anisocytosis Slight Sodium 142 (137-145) mmol/L Potassium 3.8 (3.5-5.1) mmol/L Chloride 106 (98-107) mmol/L Carbon Dioxide 27 (22-30) mmol/L Anion Gap 9 mmol/L BUN 21 H (9-20) mg/dL Creatinine 1.03 (0.66-1.25) mg/dL Est GFR (CKD-EPI)AfAm >90 (>60 ml/min/1.73 sqM) Est GFR (CKD-EPI)NonAf 81 (>60 ml/min/1.73 sqM) Glucose 101 H (74-99) mg/dL Calcium 8.8 (8.4-10.2) mg/dL Total Bilirubin 1.4 H (0.2-1.3) mg/dL AST 50 (17-59) U/L ALT 68 (21-72) U/L Alkaline Phosphatase 123 (38-126) U/L Total Protein 6.5 (6.3-8.2) g/dL Albumin 3.3 L (3.5-5.0) g/dL Disposition Is patient prescribed a controlled substance at d/c from ED?: No Time of Disposition: 09:01 Decision to Admit Reason: Admit from EC Decision Date: 04/18/19 Decision Time: 09:01 <Arlette Doyle L - Last Filed: 04/18/19 09:23> <Chalo Flower - Last Filed: 04/18/19 09:45> Clinical Impression: Foot ulcer, Foot pain, Foot swelling, Leukocytosis Disposition: ADMITTED IP TO THIS [facility] Condition: Good Referrals: Mohsen Morris DO [Primary Care Provider] - 1-2 days
[2019-04-18 07:30] LABS: ALT 68 U/L (21-72); AST 50 U/L (17-59); African American GFR (CKD) >90 (>60 ml/min/1.73 sqM); Albumin 3.3 g/dL (3.5-5.0); Alkaline Phosphatase 123 U/L (38-126); Anion Gap 9 mmol/L; Blood Urea Nitrogen 21 mg/dL (9-20); Calcium 8.8 mg/dL (8.4-10.2); Carbon Dioxide 27 mmol/L (22-30); Chloride 106 mmol/L (98-107); Glucose 101 mg/dL (74-99); Potassium 3.8 mmol/L (3.5-5.1); Sodium 142 mmol/L (137-145); Total Bilirubin 1.4 mg/dL (0.2-1.3); Total Protein 6.5 g/dL (6.3-8.2)
--- NOTE | 2019-04-18 07:47 | US ---
EXAMINATION TYPE: US venous doppler duplex LE RT DATE OF EXAM: 04/18/2019 6:40 AM COMPARISON: NONE CLINICAL HISTORY: swelling right foot. Right ankle pain and swelling x 2 days SIDE PERFORMED: Right TECHNIQUE: The lower extremity deep venous system is examined utilizing real time linear array sonog debroah with graded compression, doppler sonography and color-flow sonography. VESSELS IMAGED: External Iliac Vein (EIV) Common Femoral Vein Deep Femoral Vein Greater Saphenous Vein * Femoral Vein Popliteal Vein Small Saphenous Vein * Proximal Calf Veins (* superficial vessels) Right Leg: Appears negative for DVT No popliteal fossa lesion is seen. IMPRESSION: THIS EXAMINATION IS NEGATIVE FOR DVT IN THE RIGHT LEG.
[2019-04-18 08:10] LABS: Anisocytosis Slight; Basophils # (A) 0.1 k/uL (0-0.2); Basophils % (A) 1 %; Eosinophils # (A) 0.1 k/uL (0-0.7); Eosinophils % (A) 1 %; HGB 12.3 gm/dL (13.0-17.5); Hypochromasia Marked; Lymphocytes # (A) 1.1 k/uL (1.0-4.8); Lymphocytes % (A) 7 %; MCH 27.8 pg (25.0-35.0); MCHC 31.6 g/dL (31.0-37.0); MCV 87.9 fL (80.0-100.0); Mean Platelet Volume 9.3; Monocytes # (A) 0.8 k/uL (0-1.0); Monocytes % (A) 5 %; Neutrophils # (A) 13.2 k/uL (1.3-7.7); Neutrophils % (A) 85 %; Platelet Count 177 k/uL (150-450); RBC 4.43 m/uL (4.30-5.90); RDW 18.3 % (11.5-15.5); WBC 15.5 k/uL (3.8-10.6)
[2019-04-18] MEDS ORDERED: VANCOMYCIN IV PER PHARMACY 1 EACH MISC MISCELLANE PRN (09:00)
[2019-04-18] MEDS ORDERED: NALOXONE 0.4 MG/ML 1 ML VIAL IV PRN (09:01)
[2019-04-18] MEDS ORDERED: VANCOMYCIN 2,250 MG in SODIUM CHLORIDE 0.9% 500 ML 500 ML IVPB STA (09:11)
[2019-04-18] MEDS: MORPHINE SULFATE 4 MG/ML SYRINGE IV PRN ×3 (09:15→19:26)
[2019-04-18] MEDS: SODIUM CHLORIDE 0.9% 1,000 ML IV SCH ×2 (10:44→20:40)
[2019-04-18] MEDS ORDERED: methylPREDNISolone 4 MG TAB PO SCH (11:00)
--- NOTE | 2019-04-18 12:17 | P.CNOR ---
History of Present Illness - HPI Consult date: 04/18/19 Consult reason: joint pain History of present illness: Patient is a 58-year-old male who presented to [facility] early this morning with regards to pain and swelling involving his right foot. Maile cool is a very extensive past medical history involving his right foot. 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 He did develop an infection involving the dorsal incision at 2 weeks, and this was treated with antibiotics and is done well since then. He's had chronic swelling in that right foot since the surgery. He does utilize a compression stocking normally which does help. He recently purchased a new pair of compression stockings this week, and this seemed to really help. Patient does well for his primary job, he is on his feet quite a bit. 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 He states after purchasing the new compression stockings, the swelling was significantly improved. He noted when he got home on Saturday after work and took the compression stockings off after the shower he noted significant swelling. Patient had developed a blood blister on the plantar aspect of the right foot in February, he has utilized callus pads in the area. He currently denies any fevers or chills. He notes most discomfort when ambulating. No discomfort when no weight is placed on the foot. He has no other orthopedic complaints at this time. Review of Systems Constitutional: Reports as per HPI Past Medical History Past Medical History: Rheumatoid Arthritis (RA), Thyroid Disorder Additional Past Medical History / Comment(s): right foot infection, KIDNEY STONES History of Any Multi-Drug Resistant Organisms: None Reported Past Surgical History: Tonsillectomy Additional Past Surgical History / Comment(s): right foot surgery Past Anesthesia/Blood Transfusion Reactions: No Reported Reaction Past Psychological History: No Psychological Hx Reported Smoking Status: Former smoker Past Alcohol Use History: Occasional Past Drug Use History: None Reported - Past Family History Mother Family Medical History: Cancer Medications and Allergies Home Medications Medication Instructions Recorded Confirmed Type Leflunomide [Arava] 20 mg PO DAILY 10/17/16 04/18/19 History Levothyroxine Sodium [Synthroid] 150 mcg PO DAILY 10/17/16 04/18/19 History Metoprolol Succinate (ER) [Toprol 50 mg PO DAILY 04/18/19 04/18/19 History Xl] Tofacitinib Citrate [Xeljanz Xr] 11 mg PO DAILY 04/18/19 04/18/19 History methylPREDNISolone [Medrol] 4 mg PO DAILY 04/18/19 04/18/19 History Allergies Allergy/AdvReac Type Severity Reaction Status Date / Time No Known Allergies Allergy Verified 04/18/19 08:21 Physical Examination Right lower extremity: Multiple surgical scars are noted, one on the dorsal aspect, one on the medial aspect and one on the lateral aspect of the foot. All are well-healed at this time. There is no significant areas of erythema or soft tissue swelling surrounding those areas, there is no tenderness with palpation in those areas. Obvious soft tissue swelling noted throughout the foot. There is a callus present on the plantar aspect of the foot, near the first metatarsal. There is some slight tenderness with palpation in that area. I am unable to appreciate any fluctuance in that area, there is no active drainage present from the callus. Skin is warm to touch at this time, dorsal pedis pulses 2+. Calf is soft, no tenderness with palpation. Logroll maneuver of the hip reproduces no discomfort, no joint effusion or tenderness with palpation surrounding the knee. Results - Labs Labs: Abnormal Lab Results - Last 24 Hours (Table) 04/18/19 04/18/19 Range/Units 07:10 07:10 WBC 15.5 H (3.8-10.6) k/uL Hgb 12.3 L (13.0-17.5) gm/dL RDW 18.3 H (11.5-15.5) % Neutrophils # 13.2 H (1.3-7.7) k/uL BUN 21 H (9-20) mg/dL Glucose 101 H (74-99) mg/dL Total Bilirubin 1.4 H (0.2-1.3) mg/dL Albumin 3.3 L (3.5-5.0) g/dL H & H 04/18/19 Range/Units 07:10 Hgb 12.3 L (13.0-17.5) gm/dL Hct 39.0 (39.0-53.0) % Result Diagrams: 04/18/19 07:10 04/18/19 07:10 - Diagnostic results Ankle/Foot x-ray: report reviewed, image reviewed Assessment and Plan Plan: Imaging: Multiple views of the right foot were obtained. Evidence of significant surgical hardware noted throughout the foot. Report notes no obvious osteomyelitis changes. Assessment: 1. Right foot pain/swelling 2. History of significant right foot reconstructive surgery 3. Other medical comorbidities Plan: I was able to discuss the case, including both physical exam findings and imaging studies my attending Dr. Smith. No orthopedic surgical intervention recommended at this time. Recommend further workup from other medical specialties regarding his current physical exam findings and lab studies Recommended icing and elevating along with use of compression stocking We'll go any further questions or in this patient Time with Patient: Less than 30
[2019-04-18] MEDS: TOFACITINIB CITRATE 11 MG PO SCH (13:46)
[2019-04-18] MEDS: LEFLUNOMIDE 20 MG TAB PO SCH (14:04)
[2019-04-18] MEDS: METOPROLOL SUCCINATE (ER) 50 MG TAB.ER.24H PO SCH (14:04)
[2019-04-18] MEDS: LEVOTHYROXINE 75 MCG TAB PO SCH (14:05)
[2019-04-18 14:14] VITALS: BMI 32.9
[2019-04-18] MEDS: ACETAMINOPHEN TAB 325 MG TAB PO PRN (17:19)
--- NOTE | 2019-04-18 21:51 | P.HPIM ---
History of Present Illness H&P Date: 04/18/19 Chief Complaint: Right foot pain History of present complaint: This is a very pleasant 58-year-old patient of Dr. Morris. Follows with back shoe operator Dr. Emma Lowe. Patient lost his arch of his right foot and had surgery done at [facility] in June 2018. This was mid foot fusion. Patient had a wound and was admitted in July of this year to our hospital. Tensing the Dr. Blanton from infectious disease. And was discharged back to her surgeon. Patient continued to well. Patient about a new set of compression stockings 3 days ago. Had it on for work the next day. Came home took a shower and then he noticed right foot to be swollen and painful. Also developed a fever. No drainage from the foot. Admitted for the same. Patient started on antibiotics.. Appetite is decreased. No chills. Review of systems: GEN.: Fever EYES: None HEENT: None NECK: None RESPIRATORY: None CARDIOVASCULAR: None GASTROINTESTINAL: None GENITOURINARY: None MUSCULOSKELETAL: As above LYMPHATICS: None HEMATOLOGICAL: None PSYCHIATRY: None NEUROLOGICAL: None Past medical history to include: Rheumatoid arthritis, hypothyroid, right foot infection, kidney stones, bilateral lung nodules, hypertension Social history: Does smoke in the past. Stopped in 2003. Alcohol occasionally. Family history: Reviewed, noncontributory to presentation Physical examination: VITAL SIGNS: 100.3, 116, 16, 140/82, 96% room air GENERAL: BMI 33.0, laying in bed a bit anxious. EYES: Pupils equal. Conjunctiva normal. HEENT: External appearance of nose and ears normal, oral cavity grossly normal. NECK: JVD not raised; masses not palpable. HEART: First and second heart sounds are normal; no edema. LUNGS: Respiratory rate normal; clear to auscultation. ABDOMEN: Soft, nontender, liver spleen not palpable, no masses palpable. PSYCH: Alert and oriented x3; mood and affect normal. NEUROLOGICAL: Cranial nerves grossly intact; no facial asymmetry, power and se nsation grossly intact. LYMPHATICS: No lymph nodes palpable in the axilla and neck MUSCULOSKELETAL: Right foot is swollen, some tenderness just anterior to the ankle. Slight increased redness INVESTIGATIONS, reviewed in the clinical context: White count 15.5 hemoglobin 12.3 potassium 3.8 121 creatinine 1.03 Lactic acid 2.2 Right foot x-ray-shows some soft tissue swelling evidence of previous surgery Assessment: -This patient with known rheumatoid arthritis who had loss of arch followed by mid foot fusion, border. A new compression stockings and patient wore it for a day. By evening patient's pain and swelling in the foot had increased also developed fever with a sepsis-like picture. Patient definitely has cellulitis cannot rule out underlying infection. Patient has sepsis -Lactic acidosis from sepsis -Chronic rheumatoid arthritis -Hypothyroid -Essential hypertension -Obesity BMI 33.0 Plan: Consultation orthopedics and infectious disease was done. Patient is on IV vancomycin. Home medications resumed. Patient be put on stress dose of IV hydrocortisone. Care was discussed with the patient. Questions were answered. Lovenox for DVT prophylaxis. Patient put on IV fluids. Past Medical History Past Medical History: Hypertension, Pneumonia, Rheumatoid Arthritis (RA), Thyroid Disorder Additional Past Medical History / Comment(s): right foot infection, KIDNEY STONES, nodules in bilat lungs. History of Any Multi-Drug Resistant Organisms: None Reported Past Surgical History: Back Surgery, Tonsillectomy Additional Past Surgical History / Comment(s): right foot surgery, ganglion cyst removal from bilat wrists. back surgery secondary to herniated disc. arthritis nodule removal from bilat arms and right thigh. Past Anesthesia/Blood Transfusion Reactions: No Reported Reaction Past Psychological History: No Psychological Hx Reported Smoking Status: Former smoker Past Alcohol Use History: Occasional Additional Past Alcohol Use History / Comment(s): QUIT SMOKING 2003 Past Drug Use History: None Reported - Past Family History Mother Family Medical History: Cancer Father Family Medical History: No Reported History Additional Family Medical History / Comment(s): states, "he just ." Medications and Allergies Home Medications Medication Instructions Recorded Confirmed Type Leflunomide [Arava] 20 mg PO DAILY 10/17/16 04/18/19 History Levothyroxine Sodium [Synthroid] 150 mcg PO DAILY 10/17/16 04/18/19 History Metoprolol Succinate (ER) [Toprol 50 mg PO DAILY 04/18/19 04/18/19 History Xl] Tofacitinib Citrate [Xeljanz Xr] 11 mg PO DAILY 04/18/19 04/18/19 History methylPREDNISolone [Medrol] 4 mg PO DAILY 04/18/19 04/18/19 History Allergies Allergy/AdvReac Type Severity Reaction Status Date / Time No Known Allergies Allergy Verified 04/18/19 08:21 Physical Exam Vitals: Vital Signs Temp Pulse Pulse Resp BP BP Pulse Ox 04/18/19 14:36 100.3 F H 116 H 16 140/82 04/18/19 13:49 98.2 F 117 H 20 154/77 96 04/18/19 13:21 70 16 129/76 04/18/19 09:19 60 16 111/68 04/18/19 05:32 98.6 F 109 H 20 100/64 96 Intake and Output 04/18/19 04/18/19 04/18/19 06:59 14:59 22:59 Other: Weight 113.398 kg Results CBC & Chem 7: 04/18/19 07:10 04/18/19 07:10 Labs: Abnormal Lab Results - Last 24 Hours (Table) 04/18/19 04/18/19 04/18/19 Range/Units 07:10 07:10 16:11 WBC 15.5 H (3.8-10.6) k/uL Hgb 12.3 L (13.0-17.5) gm/dL RDW 18.3 H (11.5-15.5) % Neutrophils # 13.2 H (1.3-7.7) k/uL BUN 21 H (9-20) mg/dL Glucose 101 H (74-99) mg/dL Plasma Lactic Acid Caden 2.2 H* (0.7-2.0) mmol/L Total Bilirubin 1.4 H (0.2-1.3) mg/dL Albumin 3.3 L (3.5-5.0) g/dL 04/18/19 Range/Units 20:14 WBC (3.8-10.6) k/uL Hgb (13.0-17.5) gm/dL RDW (11.5-15.5) % Neutrophils # (1.3-7.7) k/uL BUN (9-20) mg/dL Glucose (74-99) mg/dL Plasma Lactic Acid Caden 2.2 H* (0.7-2.0) mmol/L Total Bilirubin (0.2-1.3) mg/dL Albumin (3.5-5.0) g/dL Thrombosis Risk Factor Assmnt - Choose All That Apply Any of the Below Risk Factors Present?: Yes Each Factor Represents 1 point: Age 41-60 years, Obesity (BMI >25), Swollen legs (current) Other Risk Factors: Yes Each Risk Factor Represents 2 Points: Patient confined to bed Other congenital or acquired thrombophilia - If yes, enter type in comment: No Thrombosis Risk Factor Assessment Total Risk Factor Score: 5 Thrombosis Risk Factor Assessment Level: High Risk
[2019-04-18] MEDS: VANCOMYCIN 2,250 MG in SODIUM CHLORIDE 0.9% 500 ML 500 ML IVPB SCH (22:12)
[2019-04-18] MEDS: HYDROCORTISONE SUCCINATE 100 MG/2 ML VIAL IV SCH (22:19)
[2019-04-18] MEDS: ENOXAPARIN 40 MG/0.4 ML SYRINGE SQ SCH (22:19)
--- NOTE | 2019-04-18 23:41 | P.CONS ---
History of Present Illness - Reason for Consult Consult date: 04/18/19 right foot cellulitis Requesting physician: Jean Claude Horowitz - Chief Complaint right foot pain , swelling and redness x few days - History of Present Illness Patient is a 58-year-old male with a past medical history significant for extensive right foot surgery and previous history of infection to the same foot patient presenting to the [facility] ER with chief complaints of right foot pain patient apparently has been using offloading shoes and has devel oped a callus on the plantar aspect of his right foot however there is currently no drainage subsequently developing pain swelling and redness of the right foot area pain describing to be throbbing to dull aching intensity about 5-6 out of 10 and no radiation and pain on walking patient having currently complaining of fever with rigors and chills with the symptom the patient presented to the ER on arrival to the ER patient has been running low-grade fever of 100.3 he was slightly tachycardic and did have elevated white count and elevated lactic acid patient did have x-rays of the right foot with tissues extensive soft tissue swelling but no osseous signs of osteomyelitis lower extremity Doppler was negative for DVT patient has been started on vancomycin infectious disease was consulted for further recommendation about antibiotic therapy. Review of Systems CONSTITUTIONAL: Positive for weakness. low grade Fever EYES: No complaint. ENT:No complaint. RESPIRATORY: No complaint. CARDIOVASCULAR: No complaint. GENITOURINARY: No complaint. GASTROINTESTINAL: No complaint. MUSCULOSKELET :as per history of present illness INTEGUMENTARY: as per history of present illness PSYCHOLOGICAL: No complaint. ENDOCRINE: No complaint. NEUROLOGIC: No complaint. Past Medical History Past Medical History: Rheumatoid Arthritis (RA), Thyroid Disorder Additional Past Medical History / Comment(s): right foot infection, KIDNEY STONES History of Any Multi-Drug Resistant Organisms: None Reported Past Surgical History: Tonsillectomy Additional Past Surgical History / Comment(s): right foot surgery Past Anesthesia/Blood Transfusion Reactions: No Reported Reaction Past Psychological History: No Psychological Hx Reported Smoking Status: Former smoker Past Alcohol Use History: Occasional Past Drug Use History: None Reported - Past Family History Mother Family Medical History: Cancer Father Family Medical History: No Reported History Additional Family Medical History / Comment(s): states, "he just ." Medications and Allergies Home Medications Medication Instructions Recorded Confirmed Type Leflunomide [Arava] 20 mg PO DAILY 10/17/16 04/18/19 History Levothyroxine Sodium [Synthroid] 150 mcg PO DAILY 10/17/16 04/18/19 History Metoprolol Succinate (ER) [Toprol 50 mg PO DAILY 04/18/19 04/18/19 History Xl] Tofacitinib Citrate [Xeljanz Xr] 11 mg PO DAILY 04/18/19 04/18/19 History methylPREDNISolone [Medrol] 4 mg PO DAILY 04/18/19 04/18/19 History Allergies Allergy/AdvReac Type Severity Reaction Status Date / Time No Known Allergies Allergy Verified 04/18/19 08:21 Physical Exam Vitals: Vital Signs Temp Pulse Resp BP Pulse Ox 04/18/19 09: 60 16 111/68 04/18/19 05:32 98.6 F 109 H 20 100/64 96 Intake and Output 04/17/19 04/18/19 04/18/19 22:59 06:59 14:59 Other: Weight 113.398 kg GENERAL DESCRIPTION: Middle-aged male lying in bed, no distress. No tachypnea or accessory muscle of respiration use. HEENT: Shows Pallor , no scleral icterus. Oral mucous membrane is dry. No pharyngeal erythema or thrush NECK: Trachea central, no thyromegaly. LUNGS: Unlabored breathing. Clear to auscultation anteriorly. No wheeze or crackle. HEART: S1, S2, regular rate and rhythm. No loud murmur ABDOMEN: Soft, no tenderness , guarding or rigidity, no organomegaly EXTREMITIES right foot planter calus , right foot dorsum is swollen , warm and tender to touch SKIN: No rash, no masses palpable. NEUROLOGICAL: The patient is awake, alert, oriented x3, mood and affect normal. Results CBC & Chem 7: 04/18/19 07:10 04/18/19 07:10 Labs: Abnormal Lab Results - Last 24 Hours (Table) 04/18/19 04/18/19 Range/Units 07:10 07:10 WBC 15.5 H (3.8-10.6) k/uL Hgb 12.3 L (13.0-17.5) gm/dL RDW 18.3 H (11.5-15.5) % Neutrophils # 13.2 H (1.3-7.7) k/uL BUN 21 H (9-20) mg/dL Glucose 101 H (74-99) mg/dL Total Bilirubin 1.4 H (0.2-1.3) mg/dL Albumin 3.3 L (3.5-5.0) g/dL Assessment and Plan Assessment: -patient admitted hospital with sepsis in this patient who did have a fever elevated white count tachycardia source is extensive right foot cellulitis in this patient who do have a complicated history of right foot multiple surgeries and infection with recent developing callus on the plantar aspect likely the source of entry of this infection and likely from gram-positive skin kendra suggest strep and will need to cover for MRSA in view of previous history of infections and antibiotic exposure (1) Sepsis Current Visit: Yes Status: Acute Code(s): A41.9 - SEPSIS, UNSPECIFIED ORGANISM SNOMED Code(s): 55762728 (2) Cellulitis of right foot Current Visit: Yes Status: Acute Code(s): L03.115 - CELLULITIS OF RIGHT LOWER LIMB SNOMED Code(s): 534041929 Plan: 1-vancomycin pharmacy to dose with a target trough of 15 while watching his kidney function and Vanco trough closely 2-marked the area of the redness 3-obtain baseline CRP and sed rate 4-May benefit from a CT to make sure no evidence of any abscess though clinically doubt so We will follow on clinical condition and cultures to further adjust medication if needed Thank you for this consultation we will follow the patient along with you Time with Patient: Greater than 30
[2019-04-19] MEDS: SODIUM CHLORIDE 0.9% 1,000 ML IV SCH ×2 (05:50→13:54)
[2019-04-19] MEDS: HYDROCORTISONE SUCCINATE 100 MG/2 ML VIAL IV SCH ×3 (06:19→20:46)
[2019-04-19] MEDS: LEVOTHYROXINE 75 MCG TAB PO SCH (06:25)
[2019-04-19] MEDS: VANCOMYCIN 2,250 MG in SODIUM CHLORIDE 0.9% 500 ML 500 ML IVPB SCH ×2 (07:43→21:00)
[2019-04-19] MEDS: LEFLUNOMIDE 20 MG TAB PO SCH (07:50)
[2019-04-19] MEDS: METOPROLOL SUCCINATE (ER) 50 MG TAB.ER.24H PO SCH (07:51)
[2019-04-19] MEDS: TOFACITINIB CITRATE 11 MG PO SCH (07:51)
--- NOTE | 2019-04-19 13:18 | P.PN ---
Subjective Progress Note Date: 04/19/19 Principal diagnosis: Right foot pain/swelling, history of significant reconstructive surgery right foot, other medical comorbidities Patient evaluated at bedside today, he is resting comfortably. He notes that the discomfort has significantly improved in the foot since yesterday. Denies any current fevers or chills. Objective - Vital Signs Vital signs: Vital Signs Temp 98.0 F 04/19/19 11:41 Pulse 101 H 04/19/19 11:41 Resp 20 04/19/19 11:41 BP 129/88 04/19/19 11:41 Pulse Ox 94 L 04/19/19 11:41 Intake & Output 04/18/19 04/19/19 04/19/19 18:59 06:59 18:59 Intake Total 590 Balance 590 Intake: Oral 590 Other: Voiding Method Urinal Bedside Commode # Voids 2 - Exam Right foot: Generalized swelling of the foot remains, I'm unable to appreciate any significant areas of erythema, unable to appreciate any areas of fluctuance. No significant tenderness with palpation throughout the foot. Distal neurovascular exam is intact - Labs CBC & Chem 7: 04/18/19 07:10 04/18/19 07:10 Labs: Abnormal Lab Results - Last 24 Hours (Table) 04/18/19 04/18/19 Range/Units 16:11 20:14 Plasma Lactic Acid Caden 2.2 H* 2.2 H* (0.7-2.0) mmol/L Assessment and Plan Plan: Assessment: 1. Right foot pain/swelling 2. History of significant right foot reconstructive surgery 3. Other medical comorbidities Plan: On a general orthopedic standpoint, no orthopedic surgical intervention recommended. I discussed with the patient that he needs to contact his foot and ankle specialist that did initial surgery and schedule a follow-up to discuss most recent issue with his foot. Recommended icing and elevating along with use of compression stocking Weight-bear as tolerated At this time will be signing off patient, available for any further questions Time with Patient: Less than 30
[2019-04-19] MEDS: ACETAMINOPHEN TAB 325 MG TAB PO PRN (20:46)
[2019-04-19] MEDS: ENOXAPARIN 40 MG/0.4 ML SYRINGE SQ SCH (20:46)
--- NOTE | 2019-04-19 23:22 | P.PN ---
Progress Note - Text Progress Note Date: 04/19/19 Chief Complaint: Right foot pain History of present complaint: This is a very pleasant 58-year-old patient of Dr. Morris. 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 This was mid foot fusion. Patient had a wound and was admitted in July of this year to our hospital. Tensing the Dr. Blanton from infectious disease. And was discharged back to her surgeon. Patient continued to well. Patient about a new set of compression stockings 3 days ago. Had it on for work the next day. Came home took a shower and then he noticed right foot to be swollen and painful. Also developed a fever. No drainage from the foot. Admitted for the same. Patient started on antibiotics.. Appetite is decreased. No chills. Admitted with acute infection of the right foot Today-some decrease in pain and swelling of the right foot. Could move it bit better. Did tolerate some diet. Review of systems: Was done for constitutional, cardiovascular, GI, pulmonary. relevant finding as above Active Medications Acetaminophen (Tylenol Tab) 650 mg PO Q6HR PRN PRN Reason: Fever and/ or Pain Last Admin: 04/19/19 20:46 Dose: 650 mg Documented by: Enoxaparin Sodium (Lovenox) 40 mg SQ Q24H [facility] Last Admin: 04/19/19 20:46 Dose: 40 mg Documented by: Hydrocortisone Sodium Succinate (Solu-Cortef) 50 mg IV Q8H [facility] Last Admin: 04/19/19 20:46 Dose: 50 mg Documented by: Sodium Chloride (Saline 0.9%) 1,000 mls @ 100 mls/hr IV .Q10H [facility] Last Admin: 04/19/19 13:54 Dose: Not Given Documented by: Vancomycin HCl 2,250 mg/ (Sodium Chloride) 500 mls @ 167 mls/hr IVPB Q12H [facility] Last Admin: 04/19/19 21:00 Dose: 167 mls/hr Documented by: Leflunomide (Arava) 20 mg PO DAILY [facility] Last Admin: 04/19/19 07:50 Dose: 20 mg Documented by: Levothyroxine Sodium (Synthroid) 150 mcg PO DAILY@0630 [facility] Last Admin: 04/19/19 06:25 Dose: 150 mcg Documented by: Metoprolol Succinate (Toprol Xl) 50 mg PO DAILY [facility] Last Admin: 04/19/19 07:51 Dose: 50 mg Documented by: Miscellaneous Information (Vancomycin Trough Due) 0 each MISCELLANE DIRECTED ONE Stop: 04/20/19 08:01 Morphine Sulfate (Morphine Sulfate (Inj)) 4 mg IV Q4HR PRN PRN Reason: Severe Pain Last Admin: 04/18/19 19:26 Dose: 4 mg Documented by: Naloxone HCl (Narcan) 0.2 mg IV Q2M PRN PRN Reason: Opioid Reversal Non-Formulary Medication (Tofacitinib Citrate [Xeljanz Xr]) 11 mg PO DAILY [facility] Last Admin: 04/19/19 07:51 Dose: Not Given Documented by: Physical examination: VITAL SIGNS: 99.4, 104, 16, 125/81, 97% room air GENERAL: Laying in bed, EYES: Pupils equal. Conjunctiva normal. HEENT: External appearance of nose and ears normal, oral cavity grossly normal. NECK: JVD not raised; masses not palpable. HEART: First and second heart sounds are normal; no edema. LUNGS: Respiratory rate normal; clear to auscultation. ABDOMEN: Soft, nontender, liver spleen not palpable, no masses palpable. PSYCH: Alert and oriented x3; mood and affect normal. MUSCULOSKELETAL: Right foot is swollen, some tenderness just anterior to the ankle. Slight increased redness INVESTIGATIONS, reviewed in the clinical context: White count 15.5 hemoglobin 12.3 potassium 3.8 121 creatinine 1.03 Lactic acid 2.2 Right foot x-ray-shows some soft tissue swelling evidence of previous surgery Assessment: -This patient with known rheumatoid arthritis who had loss of arch followed by mid foot fusion, border. A new compression stockings and patient wore it for a day. By evening patient's pain and swelling in the foot had increased also developed fever with a sepsis-like picture. Patient definitely has cellulitis cannot rule out underlying early abscess. Patient has sepsis, slow to respond -Lactic acidosis from sepsis -Chronic rheumatoid arthritis -Hypothyroid -Essential hypertension -Obesity BMI 33.0 Plan: Patient is on IV vancomycin. Computed tomography scan is being ordered by ID. Other medications to continue. Care was discussed with the patient. Repeat labs.
[2019-04-20] MEDS: SODIUM CHLORIDE 0.9% 1,000 ML IV SCH ×3 (04:03→23:39)
[2019-04-20] MEDS: HYDROCORTISONE SUCCINATE 100 MG/2 ML VIAL IV SCH ×3 (05:42→21:17)
[2019-04-20] MEDS: LEVOTHYROXINE 75 MCG TAB PO SCH (05:42)
--- NOTE | 2019-04-20 07:34 | PN ---
PROGRESS NOTE DATE OF SERVICE: 04/19/2019 REASON FOR FOLLOWUP: Right foot cellulitis. INTERVAL HISTORY: The patient is currently afebrile. Patient has been breathing comfortably. Right foot pain, swelling and redness and discomfort have improved. No nausea, vomiting. No abdominal pain, no diarrhea. PHYSICAL EXAMINATION: Blood pressure is 115/76, pulse 107, temperature 99.1, he is 95% on room air. General description is a middle-aged male, lying in bed in no distress. RESPIRATORY SYSTEM: Unlabored breathing, clear to auscultation anteriorly. HEART: S1, S2. Regular rate and rhythm. ABDOMEN: Soft, no tenderness. EXTREMITIES: Right foot still has some swelling, redness has improved. on admission. LABS: Blood cultures have been negative so far. No blood work done. DIAGNOSTIC IMPRESSION AND PLAN: Patient with right foot cellulitis. The patient did have a complicated history in the past with multiple surgeries with cellulitis, possible source being plantar callus. The patient to continue with vancomycin, pharmacy to dose. Repeat CBC and CRP in the morning. Continue supportive care. MMODL / IJN: [id number] /
[2019-04-20 07:38] LABS: Anisocytosis Slight; Basophils % (A) 0 %; Eosinophils # (A) 0.1 k/uL (0-0.7); Eosinophils % (A) 1 %; HGB 10.8 gm/dL (13.0-17.5); Hypochromasia Moderate; Lymphocytes # (A) 0.6 k/uL (1.0-4.8); Lymphocytes % (A) 6 %; MCH 27.5 pg (25.0-35.0); MCHC 31.8 g/dL (31.0-37.0); MCV 86.4 fL (80.0-100.0); Mean Platelet Volume 8.8; Monocytes # (A) 0.4 k/uL (0-1.0); Monocytes % (A) 5 %; Neutrophils % (A) 87 %; Platelet Count 162 k/uL (150-450); RBC 3.94 m/uL (4.30-5.90); RDW 17.9 % (11.5-15.5); WBC 9.2 k/uL (3.8-10.6)
[2019-04-20 07:52] LABS: African American GFR (CKD) >90 (>60 ml/min/1.73 sqM); Anion Gap 7 mmol/L; Blood Urea Nitrogen 12 mg/dL (9-20); Calcium 8.8 mg/dL (8.4-10.2); Carbon Dioxide 26 mmol/L (22-30); Chloride 110 mmol/L (98-107); Glucose 100 mg/dL (74-99); Potassium 3.6 mmol/L (3.5-5.1); Sodium 143 mmol/L (137-145)
[2019-04-20] MEDS ORDERED: VANCOMYCIN TROUGH DUE 1 EACH MISC MISCELLANE ONE (08:00)
[2019-04-20] MEDS: METOPROLOL SUCCINATE (ER) 50 MG TAB.ER.24H PO SCH (08:02)
[2019-04-20] MEDS: LEFLUNOMIDE 20 MG TAB PO SCH (08:02)
[2019-04-20] MEDS: TOFACITINIB CITRATE 11 MG PO SCH (08:03)
[2019-04-20] MEDS: VANCOMYCIN 2,250 MG in SODIUM CHLORIDE 0.9% 500 ML 500 ML IVPB SCH ×2 (08:13→21:16)
[2019-04-20 08:32] LABS: C Reactive Protein 240.1 mg/L (<10.0)
--- NOTE | 2019-04-20 14:16 | PN ---
PROGRESS NOTE DATE OF SERVICE: 04/20/2019 REASON FOR FOLLOWUP: Right foot cellulitis. INTERVAL HISTORY: The patient is currently afebrile. Patient has been breathing comfortably. The patient said he is feeling much better and is insisting on going home. He is able to walk on the right foot without any pain. Currently with no open wound or any drainage. No chest pain. No abdominal pain, no diarrhea. PHYSICAL EXAMINATION: Blood pressure 102/66, pulse of 94, temperature 97.2, he is 95% on room air. General description is a middle-aged male, lying in bed in no distress. RESPIRATORY SYSTEM: Unlabored breathing, clear to auscultation anteriorly. HEART: S1, S2. Regular rate and rhythm.. ABDOMEN: Soft. EXTREMITY: Right foot swelling persists. Redness is improved, not as warm to touch. No fluctuation, induration. LABS: Hemoglobin is 10.2, white count of 9.2 with BUN of 12, creatinine 0.69. Blood culture has been negative. DIAGNOSTIC IMPRESSION AND PLAN: Patient with acute right foot cellulitis in this patient did have a complicated history as far as right foot infection is concerned. The patient has been been advised to stay in hospital for another 24 hours for IV antibiotic therapy; however, the patient is insisting on going home today. He is scheduled to see his surgeon this , Bactrim DS prescription has been sent to the pharmacy with instructions if any worsening, swelling, or redness to let me know. MMODL / IJN: [id number] /
[2019-04-20] MEDS: ACETAMINOPHEN TAB 325 MG TAB PO PRN (19:06)
[2019-04-20] MEDS: ENOXAPARIN 40 MG/0.4 ML SYRINGE SQ SCH (21:16)
--- NOTE | 2019-04-20 21:37 | P.PN ---
Progress Note - Text Progress Note Date: 04/20/19 Chief Complaint: Right foot pain History of present complaint: This is a very pleasant 58-year-old patient of Dr. Morris. 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 This was mid foot fusion. Patient had a wound and was admitted in July of this year to our hospital. Tensing the Dr. Blanton from infectious disease. And was discharged back to her surgeon. Patient continued to well. Patient about a new set of compression stockings 3 days ago. Had it on for work the next day. Came home took a shower and then he noticed right foot to be swollen and painful. Also developed a fever. No drainage from the foot. Admitted for the same. Patient started on antibiotics.. Appetite is decreased. No chills. Admitted with acute infection of the right foot Today-some further improvement in patient's foot pain. Did actually walker a bit. Today decreased fever. Review of systems: Was done for constitutional, cardiovascular, GI, pulmonary. relevant finding as above Active Medications Acetaminophen (Tylenol Tab) 650 mg PO Q6HR PRN PRN Reason: Fever and/ or Pain Last Admin: 04/20/19 19:06 Dose: 650 mg Documented by: Enoxaparin Sodium (Lovenox) 40 mg SQ Q24H [facility] Last Admin: 04/20/19 21:16 Dose: 40 mg Documented by: Hydrocortisone Sodium Succinate (Solu-Cortef) 50 mg IV Q8H [facility] Last Admin: 04/20/19 21:17 Dose: 50 mg Documented by: Sodium Chloride (Saline 0.9%) 1,000 mls @ 100 mls/hr IV .Q10H [facility] Last Admin: 04/20/19 08:14 Dose: Not Given Documented by: Vancomycin HCl 2,250 mg/ (Sodium Chloride) 500 mls @ 167 mls/hr IVPB Q12H [facility] Last Admin: 04/20/19 21:16 Dose: 167 mls/hr Documented by: Leflunomide (Arava) 20 mg PO DAILY [facility] Last Admin: 04/20/19 08:02 Dose: 20 mg Documented by: Levothyroxine Sodium (Synthroid) 150 mcg PO DAILY@0630 [facility] Last Admin: 04/20/19 05:42 Dose: 150 mcg Documented by: Metoprolol Succinate (Toprol Xl) 50 mg PO DAILY [facility] Last Admin: 04/20/19 08:02 Dose: 50 mg Documented by: Morphine Sulfate (Morphine Sulfate (Inj)) 4 mg IV Q4HR PRN PRN Reason: Severe Pain Last Admin: 04/18/19 19:26 Dose: 4 mg Documented by: Naloxone HCl (Narcan) 0.2 mg IV Q2M PRN PRN Reason: Opioid Reversal Non-Formulary Medication (Tofacitinib Citrate [Xeljanz Xr]) 11 mg PO DAILY [facility] Last Admin: 04/20/19 08:03 Dose: Not Given Documented by: Physical examination: VITAL SIGNS: afebrile, 94, 18, 102/66, 95% on room air GENERAL: Laying in bed,comfortable EYES: Pupils equal. Conjunctiva normal. HEENT: External appearance of nose and ears normal, oral cavity grossly normal. NECK: JVD not raised; masses not palpable. HEART: First and second heart sounds are normal; no edema. LUNGS: Respiratory rate normal; clear to auscultation. ABDOMEN: Soft, nontender, liver spleen not palpable, no masses palpable. PSYCH: Alert and oriented x3; mood and affect normal. MUSCULOSKELETAL: Right foot is swollen, much decreased tenderness INVESTIGATIONS, reviewed in the clinical context: White count 9.2 hemoglobin 10.8 potassium 3.6 creatinine 0.69 C-reactive protein 241 Previous testing: White count 15.5 hemoglobin 12.3 potassium 3.8 121 creatinine 1.03 Lactic acid 2.2 Right foot x-ray-shows some soft tissue swelling evidence of previous surgery Assessment: -This patient with known rheumatoid arthritis who had loss of arch followed by mid foot fusion, border. A new compression stockings and patient wore it for a day. By evening patient's pain and swelling in the foot had increased also developed fever with a sepsis-like picture. Patient definitely has cellulitis with sepsis. -Lactic acidosis from sepsis -Chronic rheumatoid arthritis -Hypothyroid -Essential hypertension -Obesity BMI 33.0 -Normocytic anemia likely of chronic disease Plan: patient is responding to IV vancomycin. Discussed with Dr. blanton from [place].plan is to continue the same for at least another 24 hours. This was discussed with the patient.
[2019-04-21 05:35] VITALS: BP 131/95; PULSE 95; RESP 18; TEMP 97.3
[2019-04-21] MEDS: HYDROCORTISONE SUCCINATE 100 MG/2 ML VIAL IV SCH (06:02)
[2019-04-21] MEDS: LEVOTHYROXINE 75 MCG TAB PO SCH (06:03)
[2019-04-21] MEDS: METOPROLOL SUCCINATE (ER) 50 MG TAB.ER.24H PO SCH (07:50)
[2019-04-21] MEDS: VANCOMYCIN 2,250 MG in SODIUM CHLORIDE 0.9% 500 ML 500 ML IVPB SCH (07:50)
[2019-04-21] MEDS: TOFACITINIB CITRATE 11 MG PO SCH (07:50)
[2019-04-21] MEDS: LEFLUNOMIDE 20 MG TAB PO SCH (07:54)
[2019-04-21] MEDS: SODIUM CHLORIDE 0.9% 1,000 ML IV SCH (07:55)
[2019-04-21] MEDS ORDERED: methylPREDNISolone 4 MG TAB PO SCH (12:15)
--- NOTE | 2019-04-21 13:58 | PN ---
PROGRESS NOTE DATE OF SERVICE: 04/21/2019 REASON FOR FOLLOWUP: Right foot cellulitis. INTERVAL HISTORY: The patient is currently afebrile. Patient has been breathing comfortably. Denies having chest pain, no cough, no nausea, no vomiting or has improved. PHYSICAL EXAMINATION: Blood pressure is 131/95 with a pulse of 95, temperature 97.3, he is 95% on room air. General description is a middle-aged male up in the chair in no distress. RESPIRATORY SYSTEM: Unlabored breathing, clear to auscultation. HEART: S1, S2. Regular rate and rhythm. ABDOMEN: Soft, no tenderness. Right foot wound and redness has improved. No open wound drainage. LABS: Hemoglobin 7.8, white count of 9.2 with a BUN of 12, creatinine 0.69, as of yesterday. No blood cultures done today. DIAGNOSTIC IMPRESSION AND PLAN: Patient with acute right foot cellulitis. This patient did have a complicated history of right foot surgeries and hardware. The patient is scheduled to see his surgeon on . Overall cellulitis has improved. Will transition him to oral Bactrim DS for infection. Will follow this conservatively right away and continue supportive care. MMODL / IJN: [id number] /
--- NOTE | 2019-04-21 23:43 | P.DS ---
Providers Date of admission: 04/19/19 11:29 Expected date of discharge: 04/21/19 Attending physician: Jean Claude Horowitz Consults: 04/18/19 10:19 Consult Physician Routine Consulting Provider: Zhao Smith Consult Reason/Comments: foot pain- consult per salvador Do you want consulting provider notified?: Yes, Notify in am 04/18/19 10:47 Consult Physician Routine Consulting Provider: Russ Blanton Consult Reason/Comments: foot infection Do you want consulting provider notified?: Yes Primary care physician: Mohsen Morris [facility] Course: Chief Complaint: Right foot pain Hospital course: This is a very pleasant 58-year-old patient of Dr. Morris. 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 This was mid foot fusion. Patient had a wound and was admitted in July of this year to our hospital. Tensing the Dr. Blanton from infectious disease. And was discharged back to her surgeon. Patient continued to well. Patient about a new set of compression stockings 3 days ago. Had it on for work the next day. Came home took a shower and then he noticed right foot to be swollen and painful. Also developed a fever. No drainage from the foot. Admitted for the same. Patient started on antibiotics.. Appetite is decreased. No chills. Admitted with acute infection of the right foot/cellulitis. treated with vancomycin. Much improved. today-D much better. up to the bathroom. Pain greatly improved.very keen to go home Discussed with Dr. Hendrix Consultation: Dr. romano ID Physical examination: VITAL SIGNS: 97.3, 95, 18, 131/95, 95% room air GENERAL: Laying in bed,comfortable EYES: Pupils equal. Conjunctiva normal. HEENT: External appearance of nose and ears normal, oral cavity grossly normal. NECK: JVD not raised; masses not palpable. HEART: First and second heart sounds are normal; no edema. LUNGS: Respiratory rate normal; clear to auscultation. ABDOMEN: Soft, nontender, liver spleen not palpable, no masses palpable. PSYCH: Alert and oriented x3; mood and affect normal. MUSCULOSKELETAL: Right foot is less swollen, much decreased tenderness INVESTIGATIONS, reviewed in the clinical context: White count 9.2 hemoglobin 10.8 potassium 3.6 creatinine 0.69 C-reactive protein 241 blood culture negative Previous testing: White count 15.5 hemoglobin 12.3 potassium 3.8 121 creatinine 1.03 Lactic acid 2.2 Right foot x-ray-shows some soft tissue swelling evidence of previous surgery discharge diagnosis: -acute right foot cellulitis causing sepsis, POA -Lactic acidosis from sepsis -Chronic rheumatoid arthritis -Hypothyroid -Essential hypertension -Obesity BMI 33.0 -Normocytic anemia likely of chronic disease disposition: home Patient Condition at Discharge: Stable Plan - Discharge Summary Discharge Rx Participant: No New Discharge Prescriptions: New Sulfamethox-Tmp 800-160Mg [Bactrim DS 800-160 mg] 1 tab PO Q12HR #20 tab Continue Leflunomide [Arava] 20 mg PO DAILY Levothyroxine Sodium [Synthroid] 150 mcg PO DAILY methylPREDNISolone [Medrol] 4 mg PO DAILY Tofacitinib Citrate [Xeljanz Xr] 11 mg PO DAILY Metoprolol Succinate (ER) [Toprol XL] 50 mg PO DAILY Discharge Medication List Leflunomide [Arava] 20 mg PO DAILY 10/17/16 [History] Levothyroxine Sodium [Synthroid] 150 mcg PO DAILY 10/17/16 [History] Metoprolol Succinate (ER) [Toprol XL] 50 mg PO DAILY 04/18/19 [History] Tofacitinib Citrate [Xeljanz Xr] 11 mg PO DAILY 04/18/19 [History] methylPREDNISolone [Medrol] 4 mg PO DAILY 04/18/19 [History] Sulfamethox-Tmp 800-160Mg [Bactrim DS 800-160 mg] 1 tab PO Q12HR #20 tab 04/20/19 [Rx] Follow up Appointment(s)/Referral(s): orthodic-dr maria a [Other] - 04/23/19 Mohsen Morris DO [Primary Care Provider] - 1-2 days Patient Instructions/Handouts: Cellulitis (DC) Activity/Diet/Wound Care/Special Instructions: activity as tolerated regular diet as tolerated elevate right foot Discharge Disposition: HOME SELF-CARE
== END 2019-04-21 13:31 | disposition home or self-care (01) | DRG 872 ==
LOC: EC 05:25 → 3NMEDONC 09:02 → OBSVTOIN 04-19 11:29 → 4MS4W 04-19 15:07
PROVIDERS: ADMIT Hospitalist; ATTEND Hospitalist
DX: A41.9 Sepsis, unspecified organism (principal); E87.2 Acidosis; L03.115 Cellulitis of right lower limb; L97.419 Non-pressure chronic ulcer of right heel and midfoot with unspecified severity; D63.8 Anemia in other chronic diseases classified elsewhere; E03.9 Hypothyroidism, unspecified; E66.9 Obesity, unspecified; Z68.33 Body mass index [BMI] 33.0-33.9, adult; G89.29 Other chronic pain; I10 Essential (primary) hypertension; M06.9 Rheumatoid arthritis, unspecified; L84 Corns and callosities; Z79.52 Long term (current) use of systemic steroids; Z79.890 Hormone replacement therapy; Z87.442 Personal history of urinary calculi; Z87.891 Personal history of nicotine dependence; Z98.1 Arthrodesis status; S90.821A Blister (nonthermal), right foot, initial encounter; R91.8 Other nonspecific abnormal finding of lung field; Z79.899 Other long term (current) drug therapy
CPT/HCPCS: 36415; 80048; 80053; 80202; 83605; 85025; 86140; 87040; 96365; 96366; 96368; 96375; 96376; 99285

== ENCOUNTER 2019-05-26 07:48 | Day surgery (SDC) | payer BC ==
[2019-05-21 08:33] VITALS: BMI 33.2
[2019-05-26 08:07] VITALS: BP 170/98; PULSE 86; RESP 16; TEMP 98.5
[2019-05-26 08:53] LABS: Anisocytosis Slight; Basophils # (A) 0.1 k/uL (0-0.2); Basophils % (A) 1 %; Eosinophils # (A) 0.3 k/uL (0-0.7); Eosinophils % (A) 3 %; HCT 42.2 % (39.0-53.0); HGB 12.8 gm/dL (13.0-17.5); Hypochromasia Moderate; Lymphocytes % (A) 18 %; MCH 27.2 pg (25.0-35.0); MCHC 30.3 g/dL (31.0-37.0); MCV 89.8 fL (80.0-100.0); Mean Platelet Volume 8.4; Monocytes # (A) 0.7 k/uL (0-1.0); Monocytes % (A) 6 %; Neutrophils # (A) 7.6 k/uL (1.3-7.7); Neutrophils % (A) 70 %; Platelet Count 242 k/uL (150-450); RDW 16.7 % (11.5-15.5); WBC 10.8 k/uL (3.8-10.6)
[2019-05-26 08:57] LABS: African American GFR (CKD) >90 (>60 ml/min/1.73 sqM); Anion Gap 11 mmol/L; Blood Urea Nitrogen 19 mg/dL (9-20); Carbon Dioxide 23 mmol/L (22-30); Chloride 108 mmol/L (98-107); Potassium 4.1 mmol/L (3.5-5.1); Sodium 142 mmol/L (137-145)
[2019-05-26] MEDS ORDERED: LIDOCAINE 1% INJ 10MG/ML (20 ML MDV) SQ ONE (09:12)
--- NOTE | 2019-05-26 09:51 | IR ---
EXAMINATION TYPE: IR cvc insert >=5 years DATE OF EXAM: 05/26/2019 COMPARISON: NONE CLINICAL HISTORY: Infection Needs long-term intravenous access for antibiotics. PROCEDURE: After informed consent, the skin overlying the left basilic vein was localized with ultrasound and no felisha to be compressible and patent. An ultrasound image was obtained and submitted on the patient's c rosales. The overlying skin was prepped and draped and Lidocaine was used for local anesthesia. A skin sabina was made with a scalpel. Access was gained to the vein under ultrasound guidance with a 21 gau ge needle and a 0.018 inch wire was advanced. Access site was dilated with Peel-Away sheath and cath eter tailored to the appropriate length and advanced such that the distal tip is at the cavoatrial ju nction. Spot image was obtained verifying placement. Catheter was fixed to the skin and a sterile d ressing was placed following hemostasis. Catheter was aspirated and flushed with saline. Patient wa s discharged in stable condition without complication. Maximal barrier technique is utilized. Ultras ound image is documented on the chart. Ultrasound used with sterile technique. Fluoro time and fluoroscopic images submitted to document procedure: 4 intraoperative C-arm images do cument the procedure, 0.7 minutes fluoroscopy time IMPRESSION: STATUS POST ULTRASOUND AND FLUOROSCOPIC GUIDED PICC LINE PLACEMENT, READY FOR USE. THIS PROCEDURE WAS PERFORMED BY THE UNDERSIGNED.
== END 2019-05-26 10:05 | disposition home health service (06) ==
LOC: CATHCVL 07:48
PROVIDERS: ATTEND Radiology Diagnostic Radiology
DX: L03.115 Cellulitis of right lower limb (principal); I10 Essential (primary) hypertension; M06.9 Rheumatoid arthritis, unspecified; E07.9 Disorder of thyroid, unspecified; Z79.890 Hormone replacement therapy; Z79.899 Other long term (current) drug therapy; Z91.018 Allergy to other foods
CPT/HCPCS: 36573; 80051; 82565; 84520; 85025; C1751; C1769; J0690; J2001

== ENCOUNTER 2019-06-06 11:59 | Emergency (ER) | payer BC ==
[2019-06-06 12:17] VITALS: TEMP 98.2
[2019-06-06 14:09] VITALS: BP 131/83; PULSE 87; RESP 18
--- NOTE | 2019-06-06 14:23 | US ---
EXAMINATION TYPE: US venous Doppler duplex UE LT DATE OF EXAM: 06/06/2019 COMPARISON: NONE CLINICAL HISTORY: pain, PICC line present . Patient noted pain and swelling x 3 days at left upper ar m PICC site; receiving antibiotics for foot infection SIDE PERFORMED: left Left Arm: Is Positive for non occluding DVT in distal Left Axillary Vein as echoes are noted surround ing PICC line, but posterior color flow present. Then wall echoes are seen in superficial Left Basil ic Vein surrounding PICC with minimal color flow present in superficial Left Basilic Vein. IMPRESSION: 1. THIS EXAMINATION IS NEGATIVE FOR ACUTE OCCLUSIVE THROMBUS WITHIN THE LEFT ARM. 2. THIS EXAMINATION IS POSITIVE FOR CHRONIC NONOCCLUSIVE THROMBUS WITHIN THE LEFT ARM.
--- NOTE | 2019-06-06 14:36 | ED ---
Recheck HPI - General Chief Complaint: Recheck/Abnormal Lab/Rx Stated Complaint: picc line swelling Time Seen by Provider: 06/06/19 12:19 Source: patient Mode of arrival: ambulatory Limitations: no limitations - History of Present Illness Initial Comments: Patient is a 59-year-old male presenting to the emergency Department with complaints of pain and swelling in his left arm since yesterday. Patient states he does have a PICC line in place secondary to a foot infection. PICC line was placed approximately 2 weeks ago. Patient denies any fever, chills, nausea, vomiting. Patient states he spoke with his PCP today regarding the pain and swelling and they recommended him coming to the ER for an ultrasound to rule out a clot. Patient denies history of blood clots. Patient has no other complaints today. Upon arrival to ER, vital signs are stable. - Related Data Home Medications Medication Instructions Recorded Confirmed Levothyroxine Sodium [Synthroid] 150 mcg PO DAILY 10/17/16 05/21/19 Metoprolol Succinate (ER) [Toprol 50 mg PO DAILY 04/18/19 05/21/19 XL] methylPREDNISolone [Medrol] 4 mg PO DAILY 04/18/19 05/21/19 Previous Rx's Medication Instructions Recorded Rivaroxaban [Xarelto] 15 mg PO BID 21 Days #42 tab 06/06/19 Allergies Allergy/AdvReac Type Severity Reaction Status Date / Time No Known Allergies Allergy Verified 06/06/19 12:16 Review of Systems ROS Statement: Those systems with pertinent positive or pertinent negative responses have been documented in the HPI. ROS Other: All systems not noted in ROS Statement are negative. Past Medical History Past Medical History: Hypertension, Rheumatoid Arthritis (RA), Thyroid Disorder Additional Past Medical History / Comment(s): right foot infection, KIDNEY STONES History of Any Multi-Drug Resistant Organisms: None Reported Past Surgical History: Back Surgery, Tonsillectomy Additional Past Surgical History / Comment(s): right foot surgery, repair herniated disc, plate removed rt foot Past Anesthesia/Blood Transfusion Reactions: No Reported Reaction Past Psychological History: No Psychological Hx Reported Smoking Status: Former smoker - Past Family History Mother Family Medical History: Cancer Father Family Medical History: No Reported History Additional Family Medical History / Comment(s): states, "he just ." General Exam - General Exam Comments Initial Comments: GENERAL: Well-appearing, well-nourished and in no acute distress. HEAD: Atraumatic, normocephalic. EYES: Pupils equal round and reactive to light, extraocular movements intact, sclera anicteric, conjunctiva are normal. ENT: Moist mucous membranes. NECK: Normal range of motion, supple without lymphadenopathy or JVD. LUNGS: Breath sounds clear to auscultation bilaterally and equal. No wheezes rales or rhonchi. HEART: Regular rate and rhythm without murmurs, rubs or gallops. ABDOMEN: Soft, nontender, normoactive bowel sounds. No guarding, no rebound. No masses appreciated. EXTREMITIES: Patient has a mild pain with palpation of the left antecubital area as well as some mild erythema and swelling. Patient has full range of motion. There is a PICC line in place in the left antecubital space. NEUROLOGICAL: Cranial nerves II through XII grossly intact. Normal speech, normal gait. PSYCH: Normal mood, normal affect. SKIN: Warm, Dry, normal turgor, no rashes or lesions noted. Limitations: no limitations Course Vital Signs 06/06/19 06/06/19 12:15 14:08 Temperature 98.2 F Pulse Rate 69 87 Respiratory 16 18 Rate Blood Pressure 111/73 131/83 O2 Sat by Pulse 98 98 Oximetry Medical Decision Making - Medical Decision Making Patient is a 59-year-old male presenting with mild pain, erythema, swelling of his left antecubital area 2 days. Patient has had a PICC line in place for an tibiotics for the past 2 weeks secondary to a foot infection. Patient denies history of DVTs. Ultrasound of the left upper extremity states the exam is negative for acute occlusive thrombus however is positive for a chronic nonocclusive thrombus. This finding was discussed with the patient and given the PICC line has only been in place for 10 days, we will treat this as an acute DVT. Patient will be started on Xaralto and will follow-up with his PCP on Saturday. Patient is agreeable with this plan of care. Case was discussed with Dr. Tinajero who agrees this plan of care. Patient is stable for discharge at this time. Return parameters were discussed with the patient and he verbalized understanding. Disposition Clinical Impression: Left upper extremity deep vein thrombosis Disposition: HOME SELF-CARE Condition: Stable Instructions (If sedation given, give patient instructions): Deep Vein Thrombosis (ED) Additional Instructions: Please return to the Emergency Department if symptoms worsen or any other concerns. Start Xarelto as prescribed. Follow-up with PCP or Dr. Kirk as discussed. Prescriptions: Rivaroxaban [Xarelto] 15 mg PO BID 21 Days #42 tab Is patient prescribed a controlled substance at d/c from ED?: No Referrals: Mohsen Morris DO [Primary Care Provider] - 1-2 days Russ Blanton MD [Family Provider] - 1-2 days
== END 2019-06-06 14:39 | disposition home or self-care (01) ==
LOC: EC 11:59
DX: I82.622 Acute embolism and thrombosis of deep veins of left upper extremity (principal); L08.9 Local infection of the skin and subcutaneous tissue, unspecified; I10 Essential (primary) hypertension; E07.9 Disorder of thyroid, unspecified; M06.9 Rheumatoid arthritis, unspecified; Z87.891 Personal history of nicotine dependence; Z79.52 Long term (current) use of systemic steroids; Z79.890 Hormone replacement therapy; Z79.899 Other long term (current) drug therapy; Z95.828 Presence of other vascular implants and grafts; Z98.890 Other specified postprocedural states
CPT/HCPCS: 99283

== ENCOUNTER → 2019-06-10 | Day surgery (SDC) | payer BC | LOC: CATHCVL 07:42 | PROVIDERS: ATTEND Internal Medicine Infectious Disease | DX: I80.8 Phlebitis and thrombophlebitis of other sites (principal); M86.171 Other acute osteomyelitis, right ankle and foot; L03.115 Cellulitis of right lower limb; B95.61 Methicillin susceptible Staphylococcus aureus infection as the cause of diseases classified elsewhere; I10 Essential (primary) hypertension; M06.9 Rheumatoid arthritis, unspecified; E07.9 Disorder of thyroid, unspecified; Z79.890 Hormone replacement therapy; Z79.899 Other long term (current) drug therapy | CPT/HCPCS: 36410; 76937; C1751 ==

== ENCOUNTER 2019-08-27 10:31 | Day surgery (SDC) | payer BC ==
[2019-08-26 17:40] VITALS: BMI 33.0
[~2019-08-27 10:31] MED LIST changes: +ALBUTEROL NEB (CONC) 2.5 MG/0.5 ML INHALATION ONE; -ALPRAZolam 0.25 MG TAB PO PRN; -ALPRAZolam 0.5 MG TAB PO PRN; -ASPIRIN 325 MG TAB PO STA; -ATORVASTATIN 80 MG TAB PO STA; +ATROPINE SULFATE 0.4 MG/ML 1 ML VIAL IM ONE; -HEPARIN SODIUM 1,000 UN/ML (10ML VL) IV ONE; -HEPARIN SODIUM 1,000 UN/ML (10ML VL) ONE; -IOPAMIDOL-370 100ML BTL INJ ONE; +LIDOCAINE 2% (PF) 20 MG/ML 5 ML VIAL INHALATION ONE; -LIDOCAINE 2% INJ 20 MG/ML (20 ML MDV) ONE; -LIDOCAINE 2% INJ 20 MG/ML SQ ONE; +LIDOCAINE VISCOUS 300 MG/15 ML CUP MUCOUS MEM ONE; -MIDAZOLAM 2 MG/2 ML VIAL ONE; -NITROGLYCERIN SL TABS 0.4 MG TAB SUBLINGUAL PRN; -SODIUM CHLORIDE 0.9% 1,000 ML in EMPTY BAG 1 BAG IV ONE; -VERAPAMIL 2.5 MG/ML 2 ML AMP ONE; -diphenhydrAMINE 50 MG/ML 1 ML VIAL IVP ONE; -diphenhydrAMINE 50 MG/ML 1 ML VIAL ONE; -fentaNYL (PF) 50 MCG/ML 2 ML AMP IVP ONE; -fentaNYL (PF) 50 MCG/ML 2 ML AMP ONE
[2019-08-27 10:56] VITALS: TEMP 98.7
[2019-08-27] MEDS ORDERED: LACTATED RINGERS 1,000 ML IV ONE (11:03)
[2019-08-27 11:04] LABS: Glucose,Whole Blood 88 mg/dL (75-99)
[2019-08-27] MEDS ORDERED: LIDOCAINE 1% 20 ML VIAL (10MG/ML) FOR IV START INTRADERMA ONE (11:04)
[2019-08-27] MEDS ORDERED: PROPOFOL 10 MG/ML 20 ML VIAL IV ONE (12:00)
[2019-08-27] MEDS ORDERED: LIDOCAINE 2% INJ 20 MG/ML INTRATRACH ONE (12:14)
[2019-08-27 12:23] VITALS: BP 106/67; PULSE 107; RESP 18
--- NOTE | 2019-08-27 12:48 | PCN ---
PROCEDURE NOTE PROCEDURE: Bronchoscopy, airway examination, therapeutic lavage, BAL right middle lobe. PREOPERATIVE DIAGNOSIS: Rheumatoid lung disease. POSTOPERATIVE DIAGNOSIS: Rheumatoid lung disease. The patient's procedure too place in room #3. There was informed consent and universal timeout. ANESTHESIA: Anesthesia provided general anesthesia/unconscious sedation. DESCRIPTION OF PROCEDURE: After the patient was adequately sedated and being fully monitored, the bronchoscope was inserted through the right nostril. It passed through the right nasopharynx into the oropharynx. Next, it went into the hypopharyngeal area. The hypopharynx was normal and the structures including anterior commissure, true cords, false cords, arytenoids, piriform sinuses, right and left valleculae and epiglottis all appeared normal. After topicalization of the glottic opening, the bronchoscope was pushed through the glottic opening into the trachea. The trachea appeared normal. There were some purulent looking secretions noted in the trachea. Tracheal rianna was sharp. The right and left mainstem were topicalized. Right upper lobe and its 3 segments, right middle lobe and its 2 segments, right lower lobe and its 5 segments, left upper lobe proper and its 2 segments, lingula and its 2 segments and left lower lobe and its 4 segments all had similar findings of diffuse airway erythema and hyperemia. There was mucosal friability. There were thick purulent secretions noted. They were suctioned. The bronchoscope was wedged into the right middle lobe, 30 mL was recovered and sent to the laboratory for analysis. Additional saline was used to remove any additional secretions. The patient tolerated the procedure well. There was no dominant mass or tumor. There was no significant bleeding. The bronchoscope was withdrawn and the patient will be recovered. MMODL / IJN: [id number] /
[2019-08-27 18:01] LABS: Appearance,BF Cloudy; Color,BF Colorless; Nucleated Cells, Body Fluid 88 /uL; RBC, Body Fluid 2 /uL
[2019-08-27 18:03] LABS: Mononuclear WBC,Body Fluid 15 %; Polynuclear WBC,Body Fluid 85 %; Total Cells Counted,Body Fluid 100
== END 2019-08-27 13:07 | disposition home or self-care (01) ==
LOC: ORWHC2ENDO 10:31
PROVIDERS: ATTEND Internal Medicine Critical Care Medicine
DX: M05.10 Rheumatoid lung disease with rheumatoid arthritis of unspecified site (principal); J84.9 Interstitial pulmonary disease, unspecified; J20.9 Acute bronchitis, unspecified; R91.8 Other nonspecific abnormal finding of lung field; I10 Essential (primary) hypertension; E03.9 Hypothyroidism, unspecified; Z79.890 Hormone replacement therapy; Z79.899 Other long term (current) drug therapy; Z79.1 Long term (current) use of non-steroidal anti-inflammatories (NSAID); Z98.890 Other specified postprocedural states; Z87.09 Personal history of other diseases of the respiratory system; Z80.9 Family history of malignant neoplasm, unspecified; Z87.891 Personal history of nicotine dependence; Z90.89 Acquired absence of other organs
CPT/HCPCS: 94640; 87798 ×3; 87496; 87498; 87529; 88108; 88305; 89050; 87252; 87502; 87634; 87070; 87205; 87116; 87102; 87077; 87186; 87206; 31624; J2001 ×2; J0461; J2704

== ENCOUNTER 2019-12-30 16:46 | Inpatient (IN) | payer BC ==
--- NOTE | 2019-12-30 17:36 | ED ---
Recheck HPI - General Chief Complaint: Recheck/Abnormal Lab/Rx Stated Complaint: Abnormal CT Time Seen by Provider: 12/30/19 17:24 Source: patient Mode of arrival: ambulatory Limitations: no limitations - History of Present Illness Initial Comments: 59-year-old male with history of pulmonary rheumatoid arthritis, HTN, thyroid disorder presents today for chief complaint of sent in by insurance collector. Patient states that he had a bronchoscopy in August, 2 weeks after the bronchoscopy developed increased sputum he had seen Dr. Gamino and at this time because his primary insurance collector was not available. Patient states that he was placed on a Z-Denzel steroids and had an IM shot of steroids in the office. Patient states he had minimal improvement he saw Dr. Dutton today who saw on x- ray with an abnormality he was then ordered a CT which revealed hy dropneumothorax bilaterally increased left side on comparison with the right. Patient states he has not had fevers, cough. Admits to sputum production. Patient denies significant shortness of breath increase, states he has SOB at baseline, denies leg swelling, hemoptysis, denies chest pain. Remaining ROS (-). - Related Data Home Medications Medication Instructions Recorded Confirmed Levothyroxine Sodium [Synthroid] 150 mcg PO DAILY 10/17/16 12/30/19 methylPREDNISolone [Medrol] 4 mg PO DAILY 04/18/19 12/30/19 Leflunomide [Arava] 20 mg PO DAILY 08/26/19 12/30/19 Tofacitinib Citrate [Xeljanz Xr] 11 mg PO DAILY 08/26/19 12/30/19 Albuterol Inhaler [Ventolin Hfa 1 puff INHALATION RT-Q4H PRN 12/30/19 12/30/19 Inhaler] Ibuprofen [Motrin] 800 mg PO TID PRN 12/30/19 12/30/19 Losartan-Hctz 50-12.5 mg [Hyzaar 1 tab PO DAILY 12/30/19 12/30/19 50-12.5] Metoprolol Tartrate [Lopressor] 50 mg PO TID 12/30/19 12/30/19 Allergies Allergy/AdvReac Type Severity Reaction Status Date / Time No Known Allergies Allergy Verified 12/30/19 19:03 Review of Systems ROS Statement: Those systems with pertinent positive or pertinent negative responses have been documented in the HPI. ROS Other: All systems not noted in ROS Statement are negative. Past Medical History Past Medical History: Hypertension, Rheumatoid Arthritis (RA), Thyroid Disorder Additional Past Medical History / Comment(s): Mult Rt foot infections after surgery, last time 05/2019, had PICC Line for AB and developed bloot clot. Hx kidney stones. 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 CTR kim. Mult RA nodules removed. Past Anesthesia/Blood Transfusion Reactions: Previous Problems w/ Anesthesia Additional Past Anesthesia/Blood Transfusion Reaction / Comment(s): slow to awaken x1. Past Psychological History: No Psychological Hx Reported Smoking Status: Former smoker Past Alcohol Use History: None Reported Past Drug Use History: None Reported - Past Family History Mother Family Medical History: Cancer Father Family Medical History: No Reported History Additional Family Medical History / Comment(s): states, "he just ." General Exam - General Exam Comments Initial Comments: General: The patient is awake and alert, in no distress Eye: +3 mm pupils are equal, round and reactive to light, extra-ocular mov ements are intact. No nystagmus. There is normal conjunctiva bilaterally. No signs of icterus. Ears, nose, mouth and throat: There are moist mucous membranes and no oral lesions. Neck: The neck is supple, there is no tenderness or JVD. Cardiovascular: There is a regular rate and rhythm. No murmur, rub or gallop is appreciated. Respiratory: Respirations are non-labored, breath sounds are equal. Significant rales at base in right lung and left lower to mid lung. No wheezes, stridor. Gastrointestinal: Soft, non-distended, non-tender abdomen without masses or organomegaly noted. There is no rebound or guarding present. Musculoskeletal: Normal ROM, no tenderness. Strength 5/5. Sensation intact. Radial pulses equal bilaterally 2+. Neurological: A&O x 3. CN II-XII intact grossly, There are no obvious motor or sensory deficits. Coordination appears grossly intact. Speech is normal. Skin: Skin is warm and dry and no rashes or lesions are noted. Psychiatric: Cooperative, appropriate mood & affect, normal judgment. Limitations: no limitations Course Vital Signs 12/30/19 12/30/19 12/30/19 17:02 17:21 18:59 Temperature 98.7 F 98.1 F Pulse Rate 100 100 105 H Respiratory 20 20 Rate Blood Pressure 95/61 111/73 121/73 O2 Sat by Pulse 92 L 93 L Oximetry Medical Decision Making - Medical Decision Making 59-year-old male presenting today for chief complaint of sent by insurance collector. CT outpatient revealed bilateral hydropneumothorax. Patient 92% on RA, no increased RR, does not appear in distress. Patient given levoquin in his physicians office. Patient states does not appears toxic. Patient had rocephin initiated in the ER. Imaging reviewd with my attending provider. Patient agreeable to admission. Dr. Dutton on consultation. - Lab Data Result diagrams: 12/30/19 18:28 12/30/19 18:28 Lab Results 12/30/19 12/30/19 12/30/19 Range/Units 18:28 18:28 18:28 WBC 13.8 H (3.8-10.6) k/uL RBC 4.86 (4.30-5.90) m/uL Hgb 12.8 L (13.0-17.5) gm/dL Hct 42.7 (39.0-53.0) % MCV 87.8 (80.0-100.0) fL MCH 26.4 (25.0-35.0) pg MCHC 30.1 L (31.0-37.0) g/dL RDW 16.3 H (11.5-15.5) % Plt Count 333 (150-450) k/uL Hypochromasia Moderate Anisocytosis Slight PT 10.3 (9.0-12.0) sec INR 1.0 (<1.2) APTT 22.5 (22.0-30.0) sec Sodium 138 (137-145) mmol/L Potassium 3.7 (3.5-5.1) mmol/L Chloride 101 (98-107) mmol/L Carbon Dioxide 27 (22-30) mmol/L Anion Gap 10 mmol/L BUN 26 H (9-20) mg/dL Creatinine 0.97 (0.66-1.25) mg/dL Est GFR (CKD-EPI)AfAm >90 (>60 ml/min/1.73 sqM) Est GFR (CKD-EPI)NonAf 86 (>60 ml/min/1.73 sqM) Glucose 115 H (74-99) mg/dL Plasma Lactic Acid Caden (0.7-2.0) mmol/L Calcium 8.6 (8.4-10.2) mg/dL Total Bilirubin 0.7 (0.2-1.3) mg/dL AST 29 (17-59) U/L ALT 71 H (4-49) U/L Alkaline Phosphatase 208 H (38-126) U/L Troponin I (0.000-0.034) ng/mL Total Protein 6.8 (6.3-8.2) g/dL Albumin 3.2 L (3.5-5.0) g/dL 12/30/19 12/30/19 Range/Units 18:28 18:28 WBC (3.8-10.6) k/uL RBC (4.30-5.90) m/uL Hgb (13.0-17.5) gm/dL Hct (39.0-53.0) % MCV (80.0-100.0) fL MCH (25.0-35.0) pg MCHC (31.0-37.0) g/dL RDW (11.5-15.5) % Plt Count (150-450) k/uL Hypochromasia Anisocytosis PT (9.0-12.0) sec INR (<1.2) APTT (22.0-30.0) sec Sodium (137-145) mmol/L Potassium (3.5-5.1) mmol/L Chloride (98-107) mmol/L Carbon Dioxide (22-30) mmol/L Anion Gap mmol/L BUN (9-20) mg/dL Creatinine (0.66-1.25) mg/dL Est GFR (CKD-EPI)AfAm (>60 ml/min/1.73 sqM) Est GFR (CKD-EPI)NonAf (>60 ml/min/1.73 sqM) Glucose (74-99) mg/dL Plasma Lactic Acid Caden 1.2 (0.7-2.0) mmol/L Calcium (8.4-10.2) mg/dL Total Bilirubin (0.2-1.3) mg/dL AST (17-59) U/L ALT (4-49) U/L Alkaline Phosphatase (38-126) U/L Troponin I <0.012 (0.000-0.034) ng/mL Total Protein (6.3-8.2) g/dL Albumin (3.5-5.0) g/dL Disposition Clinical Impression: Hydropneumothorax, Dyspnea, Hypoxia, Leukocytosis Disposition: ADMITTED IP TO THIS HOSP Condition: Stable Is patient prescribed a controlled substance at d/c from ED?: No Referrals: Mohsen Morris DO [Primary Care Provider] - 1-2 days Time of Disposition: 19:24 Decision to Admit Reason: Admit from EC Decision Date: 12/30/19 Decision Time: 19:24
--- NOTE | 2019-12-30 18:13 | XR ---
EXAMINATION TYPE: XR chest 2V DATE OF EXAM: 12/30/2019 COMPARISON: Today HISTORY: Cough TECHNIQUE: 2 views FINDINGS: There are bilateral air-fluid levels in the posterior lung pandey consistent with some locu lated hydropneumothorax. This is seen on the posterior chest wall. Trachea is midline. There is infil trate and atelectasis adjacent to the loculated pneumothoraces. There are chest leads. Heart size is normal. There is no heart failure. IMPRESSION: Loculated bilateral posterior hydropneumothorax not changed compared to CT scan 4 hours a go. Bilateral lower lobe infiltrates and atelectasis adjacent to the fluid.
[2019-12-30 18:46] LABS: Anisocytosis Slight; Basophils # (A) 0.1 k/uL (0-0.2); Basophils % (A) 1 %; Eosinophils % (A) 0 %; HCT 42.7 % (39.0-53.0); HGB 12.8 gm/dL (13.0-17.5); Hypochromasia Moderate; Lymphocytes # (A) 1.1 k/uL (1.0-4.8); Lymphocytes % (A) 8 %; MCH 26.4 pg (25.0-35.0); MCHC 30.1 g/dL (31.0-37.0); MCV 87.8 fL (80.0-100.0); Mean Platelet Volume 8.4; Monocytes # (A) 1.2 k/uL (0-1.0); Monocytes % (A) 9 %; Neutrophils # (A) 11.2 k/uL (1.3-7.7); Neutrophils % (A) 81 %; Platelet Count 333 k/uL (150-450); RBC 4.86 m/uL (4.30-5.90); RDW 16.3 % (11.5-15.5); WBC 13.8 k/uL (3.8-10.6)
[2019-12-30 18:53] LABS: ALT 71 U/L (4-49); AST 29 U/L (17-59); African American GFR (CKD) >90 (>60 ml/min/1.73 sqM); Albumin 3.2 g/dL (3.5-5.0); Alkaline Phosphatase 208 U/L (38-126); Anion Gap 10 mmol/L; Blood Urea Nitrogen 26 mg/dL (9-20); Calcium 8.6 mg/dL (8.4-10.2); Carbon Dioxide 27 mmol/L (22-30); Chloride 101 mmol/L (98-107); Glucose 115 mg/dL (74-99); Non-African American GFR(CKD) 86 (>60 ml/min/1.73 sqM); Potassium 3.7 mmol/L (3.5-5.1); Sodium 138 mmol/L (137-145); Total Bilirubin 0.7 mg/dL (0.2-1.3); Total Protein 6.8 g/dL (6.3-8.2)
[2019-12-30 19:01] LABS: Partial Thromboplastin Time 22.5 sec (22.0-30.0); Prothrombin Time 10.3 sec (9.0-12.0)
[2019-12-30] MEDS ORDERED: NALOXONE 0.4 MG/ML 1 ML VIAL IV PRN (19:12)
[2019-12-30] MEDS ORDERED: SODIUM CHLORIDE 0.9% 1,000 ML IV ONE ×2 (19:14→19:34)
[2019-12-30] MEDS ORDERED: SODIUM CHLORIDE 0.9% 500 ML 500 ML IV ONE ×2 (19:14→20:30)
[2019-12-30] MEDS: METOPROLOL TARTRATE 50 MG TAB PO SCH (22:14)
[2019-12-30] MEDS: SODIUM CHLORIDE 0.9% 1,000 ML IV SCH (22:15)
[2019-12-31] MEDS: SODIUM CHLORIDE 0.9% 1,000 ML IV SCH ×3 (05:07→20:00)
[2019-12-31] MEDS: LEVOTHYROXINE 75 MCG TAB PO SCH (06:32)
--- NOTE | 2019-12-31 08:02 | US ---
EXAMINATION TYPE: US chest DATE OF EXAM: 12/31/2019 COMPARISON: CXR CLINICAL HISTORY: pleural effusions. Effusions TECHNIQUE: Targeted ultrasound of the posterior lower bilateral hemithoraces EXAM MEASUREMENTS: Right Pleural Effusion pocket size: 1.8 cm Left Pleural Effusion pocket size: 4.9 cm Left skin surface to fluid distance: 4.6 cm Right side NOT marked for possible thoracentesis outside the dept. Left side marked for possible thoracentesis outside the dept. Pulmonologists are able to review the images in the patient?s EMR. IMPRESSIONS: 1. Pleural effusions. Consider hydropneumothorax within the differential. Please see CT report 020.
[2019-12-31] MEDS: METOPROLOL TARTRATE 50 MG TAB PO SCH ×3 (09:03→22:34)
[2019-12-31] MEDS: LEFLUNOMIDE 20 MG TAB PO SCH (09:03)
[2019-12-31] MEDS: LOSARTAN-HCTZ 50-12.5 MG 1 EACH TAB PO SCH (09:03)
[2019-12-31] MEDS: methylPREDNISolone 4 MG TAB PO SCH (09:29)
[2019-12-31] MEDS ORDERED: VANCOMYCIN IV PER PHARMACY 1 EACH MISC MISCELLANE PRN (11:31)
--- NOTE | 2019-12-31 11:58 | XR ---
EXAMINATION TYPE: XR chest 1V portable DATE OF EXAM: 12/31/2019 COMPARISON: 12/30/2019 chest x-ray INDICATION: Status post left thoracentesis TECHNIQUE: Single frontal view of the chest is obtained. FINDINGS: The heart size is enlarged. The pulmonary vasculature is normal. No suspicious pneumothorax is evident. Mild bibasilar infiltrates are present. Previous Vilonia pneumot horax is not identified. IMPRESSION: 1. No pneumothorax postthoracentesis.
--- NOTE | 2019-12-31 12:36 | US ---
Ultrasound INDICATION: Procedure guidance, bilateral hydropneumothorax FINDINGS: Real-time ultrasound is performed provided to the procedure physician for procedure zurdo rooney IMPRESSIONS: 1. Documentation of ultrasound for procedure guidance.
[2019-12-31] MEDS: PIPERACILLIN-TAZOBACTAM 3.375 GM in SODIUM CHLORIDE 0.9% 100 ML IVPB SCH ×2 (12:48→19:56)
--- NOTE | 2019-12-31 12:58 | P.CNPUL ---
History of Present Illness Consult date: 12/31/19 Requesting physician: Jean Claude Horowitz Reason for consult: dyspnea, cough, abnormal CXR/CT Chief complaint: Shortness of breath, cough, fatigue History of present illness: This is a very pleasant 59-year-old gentleman who follows with Dr. Morris as his primary care provider. He has a history of hypertension, hypothyroidism, rheumatoid arthritis and is maintained on prednisone and Xeljanz. He has a history of rheumatoid lung disease with pleural effusions and previous Streptococcus pneumoniae found in a bronchoscopy wash and August 2019. Recently he had been having issues with increasing shortness of breath cough, fatigue and congestion with greenish productive sputum. He had been seen by Dr. Dubois on 12/17/2019 and prescribed a Z-Denzel and treated with steroids. He improved briefly but then symptoms had recurred and he was seen yesterday by Dr. Dutton with ongoing complaints of greenish yellow phlegm with chest congestion. He had an abnormal chest x-ray and was sent for computed tomography scan of the chest which revealed development of loculated hydropneumothorax bilaterally at the lung bases. There was the multiple bilateral pulmonary nodules and the larger prior cavitary lesions were resolved. However 1 irregular density on the right posterior lateral area has enlarged. He was informed to report to the emergency room and subsequently admitted. He is seen today in consultation on the selective care unit. He is currently sitting up in a chair at the bedside. Awake and alert in no acute distress. Maintaining O2 saturations in the 90s on room air. He's been afebrile. Slightly tachycardic. White count 13.8. Hemoglobin 12.8. Sodium 138. Potassium 3.7. Creatinine 0.97. AST 29. ALT 71. Troponin negative. ProBNP 230. Ultrasound of the chest reveals a small right pleural effusion measuring 1.8 cm. There is a left pleural effusion measuring 4.[address] Dougherty did perform a left-sided thoracentesis today and the return appeared to resemble empyema versus rheumatoid fluid. Dyspneic, yellowish-green fluid. Approximately 270 mL removed. Cultures, fluid analysis and pH were sent. Review of Systems REVIEW OF SYSTEMS: CONSTITUTIONAL: Increased fatigue and weakness. Denies any recent significant weight loss or weight gain. EYES: Denies change in vision. EARS, NOSE, MOUTH, THROAT: Denies headaches, denies sore throat. CARDIOVASCULAR: Denies chest pain, palpitations or syncopal episodes. RESPIRATORY Positive for shortness of breath, cough, congestion no hemoptysis. GASTROINTESTINAL: Denies change in appetite, denies abdominal pain GENITOURINARY: Denies hematuria, denies infections. MUSKULOSKELETAL: Denies pain, denies swelling. INTEGUMENTARY: Denies rash, denies eczema. NEUROLOGICAL: Denies recent memory loss, no recent seizure activity. PSYCHIATRIC: Denies anxiety, denies depression. HEMATOLOGIC/LYMPHATIC: Denies anemia, denies enlarged lymph nodes. Past Medical History Past Medical History: Hypertension, Rheumatoid Arthritis (RA), Thyroid Disorder Additional Past Medical History / Comment(s): Mult Rt foot infections after surgery, last time 05/2019, had PICC Line for AB and developed bloot clot. Hx kidney stones. 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 CTR kim. Mult RA nodules removed. Past Anesthesia/Blood Transfusion Reactions: Previous Problems w/ Anesthesia Additional Past Anesthesia/Blood Transfusion Reaction / Comment(s): slow to awaken x1. Past Psychological History: No Psychological Hx Reported Smoking Status: Former smoker Past Alcohol Use History: None Reported Additional Past Alcohol Use History / Comment(s): QUIT SMOKING 2003, smoked 15 years, 1 - 1 1/2 ppd Past Drug Use History: None Reported - Past Family History Mother Family Medical History: Cancer Father Family Medical History: No Reported History Additional Family Medical History / Comment(s): states, "he just ." Medications and Allergies Home Medications Medication Instructions Recorded Confirmed Type Levothyroxine Sodium [Synthroid] 150 mcg PO DAILY 10/17/16 12/30/19 History methylPREDNISolone [Medrol] 4 mg PO DAILY 04/18/19 12/30/19 History Leflunomide [Arava] 20 mg PO DAILY 08/26/19 12/30/19 History Tofacitinib Citrate [Xeljanz Xr] 11 mg PO DAILY 08/26/19 12/30/19 History Albuterol Inhaler [Ventolin Hfa 1 puff INHALATION RT-Q4H PRN 12/30/19 12/30/19 History Inhaler] Ibuprofen [Motrin] 800 mg PO TID PRN 12/30/19 12/30/19 History Losartan-Hctz 50-12.5 mg [Hyzaar 1 tab PO DAILY 12/30/19 12/30/19 History 50-12.5] Metoprolol Tartrate [Lopressor] 50 mg PO TID 12/30/19 12/30/19 History Allergies Allergy/AdvReac Type Severity Reaction Status Date / Time No Known Allergies Allergy Verified 12/30/19 19:03 Physical Exam Vitals: Vital Signs Temp Pulse Pulse Resp BP BP Pulse Ox 12/31/19 10:17 98.4 F 60 16 124/85 98 12/31/19 07:47 98.3 F 63 16 134/79 97 12/31/19 04:00 98.2 F 104 H 19 115/68 92 L 12/31/19 00:00 98.2 F 78 19 126/83 95 12/30/19 20:35 98.5 F 101 H 19 141/75 96 12/30/19 20:00 98.1 F 101 H 20 108/72 94 L 12/30/19 18:59 105 H 20 121/73 12/30/19 17:21 98.1 F 100 111/73 93 L 12/30/19 17:02 98.7 F 100 20 95/61 92 L Intake and Output 12/30/19 12/31/19 12/31/19 22:59 06:59 14:59 Other: Voiding Method Toilet # Voids 3 Weight 111.13 kg 108.3 kg GENERAL EXAM: Alert, very pleasant 59-year-old gentleman, on room air, comfortable in no apparent distress. HEAD: Normocephalic. EYES: Normal reaction of pupils, equal size. NOSE: Clear with pink turbinates. THROAT: No erythema or exudates. NECK: No masses, no JVD. CHEST: No chest wall deformity. LUNGS: Equal air entry with basilar crackles, diminished, more so on the left. CVS: S1 and S2 normal with no audible murmur, regular rhythm. ABDOMEN: No hepatosplenomegaly, normal bowel sounds, no guarding or rigidity. SPINE: No scoliosis or deformity SKIN: No rashes CENTRAL NERVOUS SYSTEM: No focal deficits, tone is normal in all 4 extremities. EXTREMITIES: There is no peripheral edema. No clubbing, no cyanosis. Peripheral pulses are intact. Results - Laboratory Findings CBC and BMP: 12/30/19 18:28 12/30/19 18:28 PT/INR, D-dimer PT 10.3 sec (9.0-12.0) 12/30/19 18: INR 1.0 (<1.2) 12/30/19 18:28 Abnormal lab findings: Abnormal Labs 12/30/19 12/30/19 18:28 18:28 WBC 13.8 H Hgb 12.8 L MCHC 30.1 L RDW 16.3 H Neutrophils # 11.2 H Monocytes # 1.2 H BUN 26 H Glucose 115 H ALT 71 H Alkaline Phosphatase 208 H Albumin 3.2 L - Diagnostic Findings Chest x-ray: image reviewed CT scan - chest: image reviewed Assessment and Plan Assessment: 1 Dyspnea, cough congestion secondary to loculated hydropneumothorax bilaterally at the lung bases. Left greater than right. 2 History of Streptococcus pneumoniae a on bronchial wash in August 2019 3 Multiple bilateral pulmonary nodules including one irregular density along the right posterior lateral that has enlarged over time, rheumatoid lung 4 Rheumatoid arthritis maintained on Xeljanz and prednisone in the outpatient setting 5 Hypertension 6 Hypothyroidism 7 Former smoker Plan: The patient was seen and evaluated by Dr. Dougherty Chest x-ray, CAT scans and labs reviewed Left-sided thoracentesis performed, possible empyema versus rheumatoid lung Cultures, fluid analysis, cytology, pH pending Initiated vancomycin and Zosyn Consult infectious disease Consult cardiothoracic surgery We'll continue to follow make further recommendations based on his clinical status I, the cosigning physician, performed a history & physical examination of the patient. Lungs with crackles in the bilateral bases left greater than right, diminished left greater than right. Maintaining good O2 saturations in the 90s on room air. I discussed the assessment and plan of care with my nurse practitioner, Morena Cobb. I attest to the above consultation as dictated by her. Time with Patient: Greater than 30
[2019-12-31] MEDS: VANCOMYCIN 1,750 MG in SODIUM CHLORIDE 0.9% 500 ML 500 ML IVPB SCH ×2 (13:10→22:34)
[2019-12-31 13:58] LABS: Appearance,BF Cloudy
[2019-12-31 13:59] LABS: Nucleated Cells, Body Fluid 594000 /uL; RBC, Body Fluid 2000 /uL
[2019-12-31 14:01] LABS: Mononuclear WBC,Body Fluid 4 %; Polynuclear WBC,Body Fluid 96 %; Total Cells Counted,Body Fluid 100
--- NOTE | 2019-12-31 14:53 | P.GSCN ---
History of Present Illness Consult date: 12/31/19 Reason for Consult: Bilateral empyema, status post left thoracentesis Requesting physician: Orlin Dougherty History of present illness: This is a 59-year-old active gentleman who follows on an outpatient basis with Dr. Morris and Dr. Dutton. He has a previous medical history of rheumatoid arthritis treated with prednisone and Xeljanz, hypertension, hypothyroidism, previous foot surgery with subsequent infection and treatment with long-term IV antibiotics, current rheumatoid nodules in the lung, previous tobacco depen dence, and family history of lung cancer. He has been having issues with increased shortness of breath and productive cough. He underwent bronchoscopy with bronchiolar lavage in August 2019 which grew Streptococcus pneumoniae. He felt better for a short time, but unfortunately again began having productive cough with greenish sputum and increased shortness of breath. He was seen by pulmonology in November and placed on steroids and Z-Denzel. Again his symptoms improved briefly but returned and he followed in the office with Dr. Dutton who sent the patient for computed tomography scan demonstrating bilateral loculated hydropneumothorax, left greater than right, multiple bilateral pulmonary nodu les, and irregular density along the right posterior lateral right mid lung. He was encouraged to report to [facility] emergency room for admission with consultation placed to pulmonology. The patient denied any symptoms of fever, chills, lower extremity edema, or chest pain. White blood cell count 13.8, hemoglobin 12.8, creatinine 0.97, lactic acid 1.2, Coronavirus PCR negative. He was afebrile and hemodynamically stable. This morning he was seen by Dr. Dougherty, left-sided thoracentesis was completed with removal of approximately 270 mL yellowish-green infected-looking fluid which was sent for cultures and fluid analysis. Due to concern for empyema consultation was placed to Dr. Dubois for surgical recommendations as well as infectious disease. Review of Systems Review of systems was completed and was negative except as noted - Respiratory Reports as per HPI, Reports cough with sputum, Reports dyspnea, Reports excessiv e sputum Past Medical History Past Medical History: Hypertension, Rheumatoid Arthritis (RA), Thyroid Disorder Additional Past Medical History / Comment(s): Mult Rt foot infections after surgery, last time 05/2019, had PICC Line for AB and developed bloot clot. Hx kidney stones. 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 CTR kim. Past Anesthesia/Blood Transfusion Reactions: Previous Problems w/ Anesthesia Additional Past Anesthesia/Blood Transfusion Reaction / Comm: slow to awaken x1. Past Psychological History: No Psychological Hx Reported Smoking Status: Former smoker Past Alcohol Use History: None Reported Additional Past Alcohol Use History / Comment(s): QUIT SMOKING 2003, smoked 15 years, 1 - 1 1/2 ppd Past Drug Use History: None Reported - Past Family History Mother Family Medical History: Cancer Father Family Medical History: No Reported History Additional Family Medical History / Comment(s): states, "he just ." Medications and Allergies Home Medications Medication Instructions Recorded Confirmed Type Levothyroxine Sodium [Synthroid] 150 mcg PO DAILY 10/17/16 12/30/19 History methylPREDNISolone [Medrol] 4 mg PO DAILY 04/18/19 12/30/19 History Leflunomide [Arava] 20 mg PO DAILY 08/26/19 12/30/19 History Tofacitinib Citrate [Xeljanz Xr] 11 mg PO DAILY 08/26/19 12/30/19 History Albuterol Inhaler [Ventolin Hfa 1 puff INHALATION RT-Q4H PRN 12/30/19 12/30/19 History Inhaler] Ibuprofen [Motrin] 800 mg PO TID PRN 12/30/19 12/30/19 History Losartan-Hctz 50-12.5 mg [Hyzaar 1 tab PO DAILY 12/30/19 12/30/19 History 50-12.5] Metoprolol Tartrate [Lopressor] 50 mg PO TID 12/30/19 12/30/19 History Allergies Allergy/AdvReac Type Severity Reaction Status Date / Time No Known Allergies Allergy Verified 12/30/19 19:03 Surgical - Exam Vital Signs Temp Pulse Resp BP Pulse Ox 98.7 F 100 20 95/61 92 L 12/30/19 17:02 12/30/19 17:02 12/30/19 17:02 12/30/19 17:02 12/30/19 17:02 - General well developed, well nourished, no distress, no pain - Eyes PERRL, normal ocular movement - ENT no hearing loss - Neck no masses, no bruits, trachea midline - Respiratory Lungs sounds diminished bilaterally with faint expiratory wheezes heard in the bases. Respirations even, nonlabored. Currently on room air with oxygen saturation 93%. No chest wall deformities. - Cardiovascular S1, S2 present. Regular rate and rhythm, sinus rhythm with occasional PACs on telemetry. Palpable peripheral pulses bilaterally. No edema present. - Abdomen Abdomen: soft, non tender, bowel sounds - Genitourinary Deferred - Rectum Deferred - Integumentary Multiple areas of ecchymosis to bilateral arms no rash, no growths - Neurologic normal sensation - Musculoskeletal normal posture - Psychiatric oriented to time, oriented to person, oriented to place, speech is normal, memory intact Results - Labs 12/30/19 18:28 12/30/19 18:28 Abnormal Lab Results - Last 24 Hours (Table) 12/30/19 12/30/19 Range/Units 18:28 18:28 WBC 13.8 H (3.8-10.6) k/uL Hgb 12.8 L (13.0-17.5) gm/dL MCHC 30.1 L (31.0-37.0) g/dL RDW 16.3 H (11.5-15.5) % Neutrophils # 11.2 H (1.3-7.7) k/uL Monocytes # 1.2 H (0-1.0) k/uL BUN 26 H (9-20) mg/dL Glucose 115 H (74-99) mg/dL ALT 71 H (4-49) U/L Alkaline Phosphatase 208 H (38-126) U/L Albumin 3.2 L (3.5-5.0) g/dL Diabetes panel 12/30/19 Range/Units 18:28 Sodium 138 (137-145) mmol/L Potassium 3.7 (3.5-5.1) mmol/L Chloride 101 (98-107) mmol/L Carbon Dioxide 27 (22-30) mmol/L BUN 26 H (9-20) mg/dL Creatinine 0.97 (0.66-1.25) mg/dL Glucose 115 H (74-99) mg/dL Calcium 8.6 (8.4-10.2) mg/dL AST 29 (17-59) U/L ALT 71 H (4-49) U/L Alkaline Phosphatase 208 H (38-126) U/L Total Protein 6.8 (6.3-8.2) g/dL Albumin 3.2 L (3.5-5.0) g/dL Calcium panel 12/30/19 Range/Units 18:28 Calcium 8.6 (8.4-10.2) mg/dL Albumin 3.2 L (3.5-5.0) g/dL Pituitary panel 12/30/19 Range/Units 18:28 Sodium 138 (137-145) mmol/L Potassium 3.7 (3.5-5.1) mmol/L Chloride 101 (98-107) mmol/L Carbon Dioxide 27 (22-30) mmol/L BUN 26 H (9-20) mg/dL Creatinine 0.97 (0.66-1.25) mg/dL Glucose 115 H (74-99) mg/dL Calcium 8.6 (8.4-10.2) mg/dL Adrenal panel 12/30/19 Range/Units 18:28 Sodium 138 (137-145) mmol/L Potassium 3.7 (3.5-5.1) mmol/L Chloride 101 (98-107) mmol/L Carbon Dioxide 27 (22-30) mmol/L BUN 26 H (9-20) mg/dL Creatinine 0.97 (0.66-1.25) mg/dL Glucose 115 H (74-99) mg/dL Calcium 8.6 (8.4-10.2) mg/dL Total Bilirubin 0.7 (0.2-1.3) mg/dL AST 29 (17-59) U/L ALT 71 H (4-49) U/L Alkaline Phosphatase 208 H (38-126) U/L Total Protein 6.8 (6.3-8.2) g/dL Albumin 3.2 L (3.5-5.0) g/dL - Imaging Chest x-ray: report reviewed, image reviewed CT scan - chest: report reviewed, image reviewed Assessment and Plan Assessment: 1. Loculated bilateral hydropneumothorax, left wrist and right, status post left-sided thoracentesis, possible empyema, history of strep pneumoniae on bronchiolar lavage in August 2019 2. Rheumatoid arthritis with rheumatoid nodules in the lung, currently treated with prednisone and Xeljanz 3. Hypertension 4. Hypothyroidism 5. Previous tobacco dependence 6. Family history of lung cancer Plan: The patient was seen and examined on the cardiac stepdown unit. Chart/diagnostics were reviewed. The case will be discussed in detail with Dr. Dubois. Recommend continuing IV antibiotic per infectious disease. Incentive spirometry ordered and encouraged. Medical management per primary care service. More recommendations to follow regarding appropriateness/timing for surgical intervention. Thank you Dr. Dougherty for this consult. We look forward to working with you in the care of your patient. Time with Patient: Greater than 30
[2019-12-31 18:20] LABS: Glucose, BF Source Pleural Fluid; Glucose, Body Fluid 50 mg/dL; LDH, Body Fluid Source Pleural Fluid; Total Protein, Body Fluid 1520 mg/dL
--- NOTE | 2019-12-31 18:48 | P.HPIM ---
History of Present Illness H&P Date: 12/31/19 Chief Complaint: Cough, congested History of present complaint: This is a very pleasant 59-year-old patient of Dr. Morris. Follows with pharmaceutical specialty representative Dr. Emma Lowe. Patient lost his arch of his right foot and had surgery done at [facility] in June 2018. This was mid foot fusion. Patient had a wound and was admitted in July 2018 to our hospital. Also did cellulitis of the right foot. March 2019. Patient also has known rheumatoid lung disease and pleural effusions. He had a bronchoscopy with lavage in August 2019. He states since June he did have a respiratory symptoms off and on. Including cough and congestion. No obvious fever and chills. In the interim he is recently see Dr. Gamino and given some antibiotics. Also be of this year he was seen by Dr. Dubois from cardiothoracic surgery and given a Z-Denzel and steroids. SLIGHT improvement. Patient was seen by Dr. Christianson yesterday and a computed tomography scan of the chest revealed loculated hydropneumothorax bilaterally. There are no pulmonary abnormalities on computed tomography scan. Patient had about 20 mL of left-sided thoracentesis done today. Possible empyema. Rheumatoid fluid cannot be ruled out. Patient's appetite has been okay. Bronchoscopy cultures in August of this year did reveal Streptococcus pneumoniae and Inessa albicans. This was done by Dr. Christianson. Review of systems: GEN.: Tired. EYES: None HEENT: None NECK: None RESPIRATORY: Congested cough shortness of breath. No sputum production. CARDIOVASCULAR: None GASTROINTESTINAL: None GENITOURINARY: None MUSCULOSKELETAL: Joint pains LYMPHATICS: None HEMATOLOGICAL: None PSYCHIATRY: None NEUROLOGICAL: None Past medical history to include: Rheumatoid arthritis, rheumatoid lung, hypothyroid, right foot infection, kidney stones, bilateral lung nodules, hypertension Social history: Does smoke in the past. Stopped in 2003. Alcohol occasionally. Family history: Reviewed, noncontributory to presentation Physical examination: VITAL SIGNS: 98.7, 100, 20, 111 was 73, 93% on room air GENERAL: BMI 31.5, sitting up in a chair, awake EYES: Pupils equal. Conjunctiva normal. HEENT: External appearance of nose and ears normal, oral cavity grossly normal. NECK: JVD not raised; masses not palpable. HEART: First and second heart sounds are normal; no edema. LUNGS: Respiratory rate increased, diminished breath sounds ABDOMEN: Soft, nontender, liver spleen not palpable, no masses palpable. PSYCH: Alert and oriented x3; mood and affect normal. NEUROLOGICAL: Cranial nerves grossly intact; no facial asymmetry, power and sensation grossly intact. LYMPHATICS: No lymph nodes palpable in the axilla and neck INVESTIGATIONS, reviewed in the clinical context: White count 13.8 hemoglobin 12.8 potassium 3.7 creatinine 0.97 albumin 3.2 COVID -19 PCF-not detected EKG tracing personally reviewed by me-normal sinus rhythm nonspecific T-wave changes Chest x-ray film personally reviewed by me-bilateral florid with horizontal level Assessment: -This patient with known rheumatoid arthritis . Patient had respiratory symptoms on and off for last 6 months. Patient also had a bronchoscopy in August of this year growing Inessa albicans and Streptococcus pneumoniae. H as had intermittent courses ofantibiotics. Chest x-ray did show bilateral hydropneumothorax. Puslike material was drained today. Rheumatoid pleural effusion cannot be ruled out. -Chronic rheumatoid arthritis with rheumatoid lung -Hypothyroid -Essential hypertension -Obesity BMI 31.5 Plan: Status post thoracentesis. Fluid has been sent off. Home medications resumed. Patient started on vancomycin and Zosyn. Discussed with the patient. Cardiothoracic was consulted. And pulmonary. Past Medical History Past Medical History: Hypertension, Rheumatoid Arthritis (RA), Thyroid Disorder Additional Past Medical History / Comment(s): Mult Rt foot infections after surgery, last time 05/2019, had PICC Line for AB and developed bloot clot. Hx kidney stones. 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 CTR kim. Mult RA nodules removed. Past Anesthesia/Blood Transfusion Reactions: Previous Problems w/ Anesthesia Additional Past Anesthesia/Blood Transfusion Reaction / Comment(s): slow to awaken x1. Past Psychological History: No Psychological Hx Reported Smoking Status: Former smoker Past Alcohol Use History: None Reported Additional Past Alcohol Use History / Comment(s): QUIT SMOKING 2003, smoked 15 years, 1 - 1 1/2 ppd Past Drug Use History: None Reported - Past Family History Mother Family Medical History: Cancer Father Family Medical History: No Reported History Additional Family Medical History / Comment(s): states, "he just ." Medications and Allergies Home Medications Medication Instructions Recorded Confirmed Type Levothyroxine Sodium [Synthroid] 150 mcg PO DAILY 10/17/16 12/30/19 History methylPREDNISolone [Medrol] 4 mg PO DAILY 04/18/19 12/30/19 History Leflunomide [Arava] 20 mg PO DAILY 08/26/19 12/30/19 History Tofacitinib Citrate [Xeljanz Xr] 11 mg PO DAILY 08/26/19 12/30/19 History Albuterol Inhaler [Ventolin Hfa 1 puff INHALATION RT-Q4H PRN 12/30/19 12/30/19 History Inhaler] Ibuprofen [Motrin] 800 mg PO TID PRN 12/30/19 12/30/19 History Losartan-Hctz 50-12.5 mg [Hyzaar 1 tab PO DAILY 12/30/19 12/30/19 History 50-12.5] Metoprolol Tartrate [Lopressor] 50 mg PO TID 12/30/19 12/30/19 History Allergies Allergy/AdvReac Type Severity Reaction Status Date / Time No Known Allergies Allergy Verified 12/30/19 19:03 Physical Exam Vitals: Vital Signs Temp Pulse Pulse Resp BP BP Pulse Ox 12/31/19 07:47 98.3 F 63 16 134/79 97 12/31/19 04:00 98.2 F 104 H 19 115/68 92 L 12/31/19 00:00 98.2 F 78 19 126/83 95 12/30/19 20:35 98.5 F 101 H 19 141/75 96 12/30/19 20:00 98.1 F 101 H 20 108/72 94 L 12/30/19 18:59 105 H 20 121/73 12/30/19 17:21 98.1 F 100 111/73 93 L 12/30/19 17:02 98.7 F 100 20 95/61 92 L Intake and Output 12/30/19 12/31/19 12/31/19 22:59 06:59 14:59 Other: Voiding Method Toilet # Voids 3 Weight 111.13 kg 108.3 kg Results CBC & Chem 7: 12/30/19 18:28 12/30/19 18:28 Labs: Abnormal Lab Results - Last 24 Hours (Table) 12/30/19 12/30/19 Range/Units 18:28 18:28 WBC 13.8 H (3.8-10.6) k/uL Hgb 12.8 L (13.0-17.5) gm/dL MCHC 30.1 L (31.0-37.0) g/dL RDW 16.3 H (11.5-15.5) % Neutrophils # 11.2 H (1.3-7.7) k/uL Monocytes # 1.2 H (0-1.0) k/uL BUN 26 H (9-20) mg/dL Glucose 115 H (74-99) mg/dL ALT 71 H (4-49) U/L Alkaline Phosphatase 208 H (38-126) U/L Albumin 3.2 L (3.5-5.0) g/dL Thrombosis Risk Factor Assmnt - Choose All That Apply Each Factor Represents 1 point: Age 41-60 years Thrombosis Risk Factor Assessment Total Risk Factor Score: 1 Thrombosis Risk Factor Assessment Level: Low Risk
[2019-12-31] MEDS: ENOXAPARIN 40 MG/0.4 ML SYRINGE SQ SCH (19:55)
--- NOTE | 2019-12-31 20:04 | OP ---
OPERATIVE REPORT OPERATIVE PROCEDURE: Left-sided thoracentesis. PREOPERATIVE DIAGNOSIS: Left-sided hydropneumothorax. POSTOPERATIVE DIAGNOSIS: Suspect left-sided empyema. ANESTHESIA USED: 2 mL of 1% lidocaine. PROCEDURE DESCRIPTION: The patient was placed in a sitting-upright position. The area below the left scapula was prepared in a sterile fashion and drapes were applied. The area which was marked by plastic eye technician was locally anesthetized. Then a 26-gauge needle was inserted at the right side, advanced into the pleural space, and multiple attempts were made; however, could not reach the fluid pocket. Then we called the plastic eye technician again, and a bedside ultrasound was done while I was at the patient's bedside. The other ultrasound which was done while I was at bedside showed a pocket of fluid just 1- 2 cm below the initial markings. The area was again locally anesthetized, and a needle was inserted into the pleural space; could not reach the fluid. Then a small tiny incision was made at that site, and a standard thoracentesis catheter and needle were used, advanced into the pleural space, and as soon as the pleural space was entered, I advanced the catheter out of the needle, and the needle was pulled out of the pleural space. Roughly 270 mL of thick purulent fluid was drained from the left pleural space, and it is clearly suspicious for empyema. No more fluid could be drained after 270 mL were drained, and I was able to evacuate some of the loculated pneumothorax which was present before the procedure. The fluid was sent for different diagnostic studies. Postoperative chest x-ray showed complete resolution of the fluid. There is some possibly small tiny loculation of pneumothorax in the left lower lobe. Although the radiologist felt that there was no evidence of pneumothorax, but I am convinced there is a loculated tiny pneumothorax at the left base. This is again not iatrogenic pneumothorax. This was present before the procedure. The procedure again was well tolerated, and the fluid was sent for different diagnostic studies. Patient was started on antibiotics for presumptive empyema. Infectious disease consultation was initiated. Thoracic surgery consultation was also initiated. MMODL / HEIDYN: [id number] /
--- NOTE | 2019-12-31 23:00 | P.CONS ---
History of Present Illness - Reason for Consult Consult date: 12/31/19 empyema Requesting physician: Orlin Dougherty - Chief Complaint cough and shortness of breath x weeks - History of Present Illness Patient is a 59-year male with a past medical history pertinent for rheumatoid arthritis rheumatoid lung disease he was admitted at this facility back in August with visual diagnosed with history of progressive MRI pneumonia for the patient has completed his antibiotic therapy patient did mention that he did have some improvement initially however his symptoms completely did not resolve patient complaining of persistent cough which has been moderate intensity and has been bringing up some yellowish to green sputum no hemoptysis some lower rib cage pleuritic chest pain from coughing patient has been evaluated outpatient setting by his jewish history professor with the patient has been treated with a Z-Denzel and a tapering course of steroids without any significant improvement patient has been evaluated by Dr. Goldsmith from in the office for follow-up patient was sent for a CT of the chest which did shows interval development of loculated hydro-pneumothorax bilaterally at the lung base with a depth of 3.5 cm and multiple pulmonary nodules large prior cavitary lesion are smaller or resolved patient has been advised to go to the hospital for admission and IV divided therapy patient has been admitted to hospital he did have a chest ultrasound in the status post thoracocentesis with removal of cloudy pleural fluid patient has been started on vancomycin and Zosyn infectious disease has been consulted for further management of antibiotic therapy patient did have elevated from 13.8 blood cultures and pleural fluid cultures are currently pending. Review of Systems Positive point has been mentioned in HPI rest of the systems are negative Past Medical History Past Medical History: Hypertension, Rheumatoid Arthritis (RA), Thyroid Disorder Additional Past Medical History / Comment(s): Mult Rt foot infections after surgery, last time 05/2019, had PICC Line for AB and developed bloot clot. Hx kidney stones. 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 CTR kim. Past Anesthesia/Blood Transfusion Reactions: Previous Problems w/ Anesthesia Additional Past Anesthesia/Blood Transfusion Reaction / Comm: slow to awaken x1. Past Psychological History: No Psychological Hx Reported Smoking Status: Former smoker Past Alcohol Use History: None Reported Additional Past Alcohol Use History / Comment(s): QUIT SMOKING 2003, smoked 15 years, 1 - 1 1/2 ppd Past Drug Use History: None Reported - Past Family History Mother Family Medical History: Cancer Father Family Medical History: No Reported History Additional Family Medical History / Comment(s): states, "he just ." Medications and Allergies Home Medications Medication Instructions Recorded Confirmed Type Levothyroxine Sodium [Synthroid] 150 mcg PO DAILY 10/17/16 12/30/19 History methylPREDNISolone [Medrol] 4 mg PO DAILY 04/18/19 12/30/19 History Leflunomide [Arava] 20 mg PO DAILY 08/26/19 12/30/19 History Tofacitinib Citrate [Xeljanz Xr] 11 mg PO DAILY 08/26/19 12/30/19 History Albuterol Inhaler [Ventolin Hfa 1 puff INHALATION RT-Q4H PRN 12/30/19 12/30/19 History Inhaler] Ibuprofen [Motrin] 800 mg PO TID PRN 12/30/19 12/30/19 History Losartan-Hctz 50-12.5 mg [Hyzaar 1 tab PO DAILY 12/30/19 12/30/19 History 50-12.5] Metoprolol Tartrate [Lopressor] 50 mg PO TID 12/30/19 12/30/19 History Allergies Allergy/AdvReac Type Severity Reaction Status Date / Time No Known Allergies Allergy Verified 12/30/19 19:03 Physical Exam Vitals: Vital Signs Temp Pulse Pulse Resp BP BP Pulse Ox 12/31/19 15:41 98.2 F 53 L 16 114/65 92 L 12/31/19 12:00 98.2 F 106 H 16 113/76 93 L 12/31/19 10:17 98.4 F 60 16 124/85 98 12/31/19 07:47 98.3 F 63 16 134/79 97 12/31/19 04:00 98.2 F 104 H 19 115/68 92 L 12/31/19 00:00 98.2 F 78 19 126/83 95 12/30/19 20:35 98.5 F 101 H 19 141/75 96 12/30/19 20:00 98.1 F 101 H 20 108/72 94 L 12/30/19 18:59 105 H 20 121/73 12/30/19 17:21 98.1 F 100 111/73 93 L 12/30/19 17:02 98.7 F 100 20 95/61 92 L Intake and Output 12/31/19 12/31/19 12/31/19 06:59 14:59 22:59 Intake Total 740 Balance 740 Intake: Intake, IV Titration 520 Amount Sodium Chloride 0.9% 1, 520 000 ml @ 999 mls/hr IV . Q1H1M [facility] Rx#:[id number] Oral 220 Other: Voiding Method Toilet # Voids 3 Weight 108.3 kg GENERAL DESCRIPTION: Middle-aged male up in the chair, no distress. No tachypnea or accessory muscle of respiration use. HEENT: Shows Pallor , no scleral icterus. Oral mucous membrane is dry. NECK: Trachea central, no thyromegaly. LUNGS: Unlabored breathing. Decreased breath sound at the base. No wheeze or crackle. HEART: S1, S2, regular rate and rhythm. ABDOMEN: Soft, no tenderness , guarding or rigidity EXTREMITIES: No edema of feet. SKIN: No rash, no masses palpable. NEUROLOGICAL: The patient is awake, alert, oriented x3, mood and affect normal. Results CBC & Chem 7: 12/30/19 18:28 12/30/19 18:28 Labs: Abnormal Lab Results - Last 24 Hours (Table) 12/30/19 12/30/19 Range/Units 18:28 18:28 WBC 13.8 H (3.8-10.6) k/uL Hgb 12.8 L (13.0-17.5) gm/dL MCHC 30.1 L (31.0-37.0) g/dL RDW 16.3 H (11.5-15.5) % Neutrophils # 11.2 H (1.3-7.7) k/uL Monocytes # 1.2 H (0-1.0) k/uL BUN 26 H (9-20) mg/dL Glucose 115 H (74-99) mg/dL ALT 71 H (4-49) U/L Alkaline Phosphatase 208 H (38-126) U/L Albumin 3.2 L (3.5-5.0) g/dL Microbiology - Last 24 Hours (Table) 12/31/19 10:58 Body Fluid Culture - Preliminary Pleural Fluid 12/31/19 10:58 Anaerobic Culture - Preliminary Pleural Fluid 12/31/19 10:58 Fungal Culture - Preliminary Pleural Fluid 12/31/19 10:58 Acid Fast Bacilli Culture - Preliminary Pleural Fluid Assessment and Plan Assessment: patient presented to hospital with chronic cough increasing shortness of breath and this patient did have evidence of hydropneumothorax loculated status post thoracocentesis with evidence of purulent pleural fluid with the history of pneumonia few months ago with strep pneumo questionable same or different pathogen (1) Empyema Current Visit: Yes Status: Acute Code(s): J86.9 - PYOTHORAX WITHOUT FISTULA SNOMED Code(s): 831815432 Plan: 1-vancomycin pharmacy to dose her with a target trough of 15 while watching her kidney function and Vanco trough closely. However switch Zosyn to cefepime to decrease risk of nephrotoxicity 2-patient may benefit from VATS procedure in view of the loculated pleural fluid 3-patient likely need PICC line outpatient antibiotic therapy We will follow on clinical condition and cultures to further adjust medication if needed Thank you for this consultation we will follow the patient along with you Time with Patient: Greater than 30
[2020-01-01] MEDS: PIPERACILLIN-TAZOBACTAM 3.375 GM in SODIUM CHLORIDE 0.9% 100 ML IVPB SCH (03:47)
[2020-01-01] MEDS: SODIUM CHLORIDE 0.9% 1,000 ML IV SCH ×3 (03:51→18:44)
[2020-01-01] MEDS: LEVOTHYROXINE 75 MCG TAB PO SCH (06:07)
--- NOTE | 2020-01-01 07:21 | XR ---
EXAMINATION TYPE: XR chest 2V DATE OF EXAM: 01/01/2020 COMPARISON: 12/31/2019 HISTORY: 59-year-old male empyema TECHNIQUE: PA and lateral views FINDINGS: Heart borderline to mildly enlarged. Normal variant azygos fissure. Mild interstitial prominence monse lar. Some slight increased patchy density in the lower lungs. Very well-defined air-fluid levels of t he lung bases. IMPRESSION: Well-defined air-fluid levels at the lung bases. Findings suggest localized hydropneumothoraces. Supe rior or mid lung pneumothorax components are not identified. Clinically correlate. Diffuse interstiti al opacities persist. Possible interstitial pulmonary edema.
[2020-01-01 07:44] LABS: African American GFR (CKD) >90 (>60 ml/min/1.73 sqM); Non-African American GFR(CKD) >90 (>60 ml/min/1.73 sqM)
--- NOTE | 2020-01-01 08:01 | P.PN ---
Subjective Progress Note Date: 01/01/20 Principal diagnosis: This is a 59-year-old active gentleman who follows on an outpatient basis with Dr. Morris and Dr. Dutton. He has a previous medical history of rheumatoid arth ritis treated with prednisone and Xeljanz, hypertension, hypothyroidism, previous foot surgery with subsequent infection and treatment with long-term IV antibiotics, current rheumatoid nodules in the lung, previous tobacco dependence, and family history of lung cancer. He has been having issues with increased shortness of breath and productive cough. He underwent bronchoscopy with bronchiolar lavage in August 2019 which grew Streptococcus pneumoniae. He felt better for a short time, but unfortunately again began having productive cough with greenish sputum and increased shortness of breath. He was seen by pulmonology in November and placed on steroids and Z-Denzel. Again his symptoms improved briefly but returned and he followed in the office with Dr. Dutton who sent the patient for computed tomography scan demonstrating bilateral loculated hydropneumothorax, left greater than right, multiple bilateral pulmonary nodules, and irregular density along the right posterior lateral right mid lung. He was encouraged to report to [facility] emergency room for admission with consultation placed to pulmonology. The patient denied any symptoms of fever, chills, lower extremity edema, or chest pain. White blood cell count 13.8, hemoglobin 12.8, creatinine 0.97, lactic acid 1.2, Coronavirus PCR negative. He was afebrile and hemodynamically stable. This morning he was seen by Dr. Dougherty, left-sided thoracentesis was completed with removal of approximately 270 mL yellowish-green infected-looking fluid which was sent for cultures and fluid analysis. Due to concern for empyema consultation was placed to Dr. Dubois for surgical recommendations as well as infectious disease. the patient is currently ambulating in his room on the cardiac stepdown unit in no acute distress. Denies any pain, no increased shortness of breath. States he feels little better everyday. Remainsafebrile. Currently receiving vancomycin and cefepime per infectious disease. Continues with steroids, Xeljanz and Arava for his rheumatoid arthritis. No new questions. Objective - Vital Signs Vital signs: Vital Signs Temp 97.9 F 01/01/20 04:00 Pulse 85 01/01/20 04:00 Resp 16 01/01/20 04:00 BP 119/77 01/01/20 04:00 Pulse Ox 93 L 01/01/20 04:00 Intake & Output 12/31/19 01/01/20 01/01/20 18:59 06:59 18:59 Intake Total 740 2780 Balance 740 2780 Weight 107.9 kg Intake: Intake, IV Titration 520 2780 Amount Piperacillin-Tazobactam 3 200 .375 gm In Sodium Chloride 0.9% 100 ml @ 25 mls/hr IVPB Q8H [facility] Rx#: [id number] Sodium Chloride 0.9% 1, 2080 000 ml @ 130 mls/hr IV . Q7H42M [facility] Rx#:[id number] Sodium Chloride 0.9% 1, 520 000 ml @ 999 mls/hr IV . Q1H1M [facility] Rx#:[id number] Vancomycin 1,750 mg In 500 Sodium Chloride 0.9% 500 ml 500 ml @ 167 mls/hr IVPB Q12H [facility] Rx#: [id number] Oral 220 Other: Voiding Method Toilet # Voids 2 - Constitutional General appearance: Present: cooperative, no acute distress - Respiratory Details: lungs sounds diminished bilaterally with faint expiratory wheezes heard posteriorly. Respirations even, nonlabored.currently on room air with oxygen saturation 93-94%. Able to achieve 1250 mL on his incentive spirometry. Strong cough. - Cardiovascular Details: S1, S2 present. Regular rate and rhythm, sinus rhythm on telemetry with heart rate in the 90s. Palpable peripheral pulses bilaterally. No edema present. - Gastrointestinal Gastrointestinal Comment(s): abdomen soft, nontender, nondistended. Active bowel sounds present 4 quadrants. Tolerating diet. - Genitourinary Genitourinary Comment(s): continues to void - Integumentary Integumentary Comment(s): skin is warm and dry with evidence of good perfusion. Multiple areas of ecc hymosis present bilateral arms - Neurologic Neurologic: Present: CNII-XII intact - Musculoskeletal Musculoskeletal: Present: gait normal, strength equal bilaterally - Psychiatric Psychiatric: Present: A&O x's 3, appropriate affect, intact judgment & insight - Allied health notes Allied health notes reviewed: nursing - Labs CBC & Chem 7: 12/30/19 18:28 01/01/20 06:37 Labs: Microbiology - Last 24 Hours (Table) 12/31/19 10:58 Acid Fast Bacilli Smear - Final Pleural Fluid Acid Fast Bacilli Culture - Preliminary 12/30/19 18:55 Blood Culture - Preliminary Blood No Growth after 24 hours 12/31/19 10:58 Gram Stain - Preliminary Pleural Fluid Body Fluid Culture - Preliminary 12/31/19 10:58 Anaerobic Culture - Preliminary Pleural Fluid 12/31/19 10:58 Fungal Culture - Preliminary Pleural Fluid - Imaging and Cardiology Chest x-ray: report reviewed, image reviewed Assessment and Plan Assessment: 1. Loculated bilateral hydropneumothorax, left wrist and right, status post left-sided thoracentesis, possible empyema, history of strep pneumoniae on bronchiolar lavage in August 2019 2. Rheumatoid arthritis with rheumatoid nodules in the lung, currently treated with prednisone and Xeljanz 3. Hypertension 4. Hypothyroidism 5. Previous tobacco dependence 6. Family history of lung cancer Plan: 1. Continue IV antibiotics per infectious disease 2. Encourage incentive spirometry use 10 times every hour while awake 3. Increase activity, ambulate as tolerated 4. Patient will be seen with Dr. Dubois and recommendations will be made for surgery 5. More recommendations to follow Time with Patient: Greater than 30
[2020-01-01] MEDS: CEFEPIME 2 GM in SODIUM CHLORIDE 0.9% 100 ML IVPB SCH ×2 (10:34→20:53)
[2020-01-01] MEDS: METOPROLOL TARTRATE 50 MG TAB PO SCH ×3 (10:34→20:52)
[2020-01-01] MEDS: ENOXAPARIN 40 MG/0.4 ML SYRINGE SQ SCH (10:35)
[2020-01-01] MEDS: LEFLUNOMIDE 20 MG TAB PO SCH (10:35)
[2020-01-01] MEDS: LOSARTAN-HCTZ 50-12.5 MG 1 EACH TAB PO SCH (10:35)
--- NOTE | 2020-01-01 12:18 | P.PN ---
Subjective Progress Note Date: 01/01/20 Principal diagnosis: Dyspnea secondary to bilateral pleural effusion This is a very pleasant 59-year-old gentleman who follows with Dr. Morris as his primary care provider. He has a history of hypertension, hypothyroidism, rheumatoid arthritis and is maintained on prednisone and Xeljanz. He has a history of rheumatoid lung disease with pleural effusions and previous Strepto coccus pneumoniae found in a bronchoscopy wash and August 2019. Recently he had been having issues with increasing shortness of breath cough, fatigue and congestion with greenish productive sputum. He had been seen by Dr. Gamino on 12/17/2019 and prescribed a Z-Denzel and treated with steroids. He improved briefly but then symptoms had recurred and he was seen yesterday by Dr. Dutton with ongoing complaints of greenish yellow phlegm with chest congestion. He had an abnormal chest x-ray and was sent for computed tomography scan of the chest which revealed development of loculated hydropneumothorax bilaterally at the lung bases. There was the multiple bilateral pulmonary nodules and the larger prior cavitary lesions were resolved. However 1 irregular density on the right posterior lateral area has enlarged. He was informed to report to the emergency room and subsequently admitted. He is seen today in consultation on the selective care unit. He is currently sitting up in a chair at the bedside. Awake and alert in no acute distress. Maintaining O2 saturations in the 90s on room air. He's been afebrile. Slightly tachycardic. White count 13.8. Hemoglobin 12.8. Sodium 138. Potassium 3.7. Creatinine 0.97. AST 29. ALT 71. Troponin negative. ProBNP 230. Ultrasound of the chest reveals a small right pleural effusion measuring 1.8 cm. There is a left pleural effusion measuring 4.[address] Dougherty did perform a left-sided thoracentesis today and the return appeared to resemble empyema versus rheumatoid fluid. Dyspneic, yellowish-green fluid. Approximately 270 mL removed. Cultures, fluid analysis and pH were sent. The patient is seen today 01/01/2020 in follow-up on the selective care unit. He is currently sitting up in a chair at the bedside. Awake and alert in no acute distress. He is maintaining good O2 saturations in the 90s on room air. He remains afebrile. Hemodynamically stable. Pleural fluid cultures are pending. Preliminary results reveal many gram-positive cocci and few gram- negative bacilli. Blood cultures reveal no growth to date. Creatinine 0.71. He remains on cefepime and vancomycin. ID is on the case. Today's chest x-ray reveals well-defined air-fluid levels at the lung bases. Suspect hydropne umothoraces. Superior or midlung pneumothorax components are not identified. Diffuse interstitial opacities persist. Objective - Vital Signs Vital signs: Vital Signs Temp 97.9 F 01/01/20 04:00 Pulse 85 01/01/20 04:00 Resp 16 01/01/20 04:00 BP 119/77 01/01/20 04:00 Pulse Ox 93 L 01/01/20 04:00 Intake & Output 12/31/19 01/01/20 01/01/20 18:59 06:59 18:59 Intake Total 740 2780 Balance 740 2780 Weight 107.9 kg Intake: Intake, IV Titration 520 2780 Amount Piperacillin-Tazobactam 3 200 .375 gm In Sodium Chloride 0.9% 100 ml @ 25 mls/hr IVPB Q8H [facility] Rx#: [id number] Sodium Chloride 0.9% 1, 2080 000 ml @ 130 mls/hr IV . Q7H42M [facility] Rx#:[id number] Sodium Chloride 0.9% 1, 520 000 ml @ 999 mls/hr IV . Q1H1M [facility] Rx#:[id number] Vancomycin 1,750 mg In 500 Sodium Chloride 0.9% 500 ml 500 ml @ 167 mls/hr IVPB Q12H [facility] Rx#: [id number] Oral 220 Other: Voiding Method Toilet # Voids 2 - Exam GENERAL EXAM: Alert, very pleasant 59-year-old gentleman, on room air, comfortable in no apparent distress. HEAD: Normocephalic. EYES: Normal reaction of pupils, equal size. NOSE: Clear with pink turbinates. THROAT: No erythema or exudates. NECK: No masses, no JVD. CHEST: No chest wall deformity. LUNGS: Equal air entry with basilar crackles, diminished, more so on the left. CVS: S1 and S2 normal with no audible murmur, regular rhythm. ABDOMEN: No hepatosplenomegaly, normal bowel sounds, no guarding or rigidity. SPINE: No scoliosis or deformity SKIN: No rashes CENTRAL NERVOUS SYSTEM: No focal deficits, tone is normal in all 4 extremities. EXTREMITIES: There is no peripheral edema. No clubbing, no cyanosis. Peripheral pulses are intact. - Labs CBC & Chem 7: 12/30/19 18:28 01/01/20 06:37 Labs: Microbiology - Last 24 Hours (Table) 12/31/19 10:58 Acid Fast Bacilli Smear - Final Pleural Fluid Acid Fast Bacilli Culture - Preliminary 12/30/19 18:55 Blood Culture - Preliminary Blood No Growth after 24 hours 12/31/19 10:58 Gram Stain - Preliminary Pleural Fluid Body Fluid Culture - Preliminary 12/31/19 10:58 Anaerobic Culture - Preliminary Pleural Fluid 12/31/19 10:58 Fungal Culture - Preliminary Pleural Fluid Assessment and Plan Assessment: 1 Dyspnea, cough congestion secondary to loculated hydropneumothorax bilaterally at the lung bases. Left greater than right. Status post thoracentesis with fluid resembling empyema, possible rheumatoid lung. Cultures pending 2 History of Streptococcus pneumoniae a on bronchial wash in August 2019 3 Multiple bilateral pulmonary nodules including one irregular density along the right posterior lateral that has enlarged over time, rheumatoid lung 4 Rheumatoid arthritis maintained on Xeljanz and prednisone in the outpatient setting 5 Hypertension 6 Hypothyroidism 7 Former smoker Plan: The patient was seen and evaluated by Dr. Dougherty Chest x-ray and labs reviewed Cultures, cytology, pH pending Continued on vancomycin and cefepime Plan is for possible bilateral VATS procedures with the chest tube placements today We'll continue to follow and make further recommendations based on his clinical status I, the cosigning physician, performed a history & physical examination of the patient. Lungs with crackles in the bilateral bases left greater than right, diminished left greater than right. Maintaining good O2 saturations in the 90s on room air. I discussed the assessment and plan of care with my nurse practitioner, Morena Cobb. I attest to the above note as dictated by her.
[2020-01-01] MEDS: methylPREDNISolone 4 MG TAB PO SCH (13:07)
[2020-01-01] MEDS: VANCOMYCIN 1,750 MG in SODIUM CHLORIDE 0.9% 500 ML 500 ML IVPB SCH (13:08)
[2020-01-01] MEDS: LACTATED RINGERS 1,000 ML IV ONE ×2 (14:39→18:43)
[2020-01-01] MEDS ORDERED: IV FLUID CONTINUATION 900 ML IV ONE (14:39)
[2020-01-01] MEDS ORDERED: BUPIVACAINE (PF) 0.5% 30 ML VIAL SQ ONE (15:56)
--- NOTE | 2020-01-01 15:59 | PN ---
PROGRESS NOTE DATE OF SERVICE: 01/01/2020 REASON FOR FOLLOWUP: Empyema. INTERVAL HISTORY: The patient is currently afebrile. The patient is breathing comfortably. He is complaining of cough with some sputum production. No hemoptysis. No nausea, no vomiting. No abdominal pain or diarrhea. PHYSICAL EXAMINATION: Blood pressure 117/68 with a pulse of 92, temperature 98.1. He is 95% on room air. General description is a middle-aged male up in the chair in no distress. RESPIRATORY SYSTEM: Unlabored breathing with decreased breath sounds at the base. No wheeze. HEART: S1, S2. Regular rate and rhythm. ABDOMEN: Soft. No tenderness. LABS: Creatinine 0.71. The pleural fluid culture so far pending. Blood culture negative. DIAGNOSTIC IMPRESSION AND PLAN: Patient with recent history of Strep pneumonia, now admitted to hospital with persistent and worsening symptoms with evidence of left-sided hydropneumothorax, status post thoracocentesis. Plan for chest tube placement. Patient at this time is covered with cefepime and vancomycin while waiting for the culture to finalize. Continue supportive care. MMODL / IJN: [id number] /
--- NOTE | 2020-01-01 16:27 | P.OP ---
Date of Procedure: 01/01/20 Preoperative Diagnosis: Bilateral bibasilar hydropneumothorax with documented empyema on the left Postoperative Diagnosis: Same Procedure(s) Performed: Bilateral chest tube placement Implants: Bilateral 28-Bermudian chest tube Anesthesia: MAC Surgeon: Oswaldo Dubois Estimated Blood Loss (ml): 5 Pathology: none sent Condition: stable Disposition: PACU Indications for Procedure: 59-year-old male with rheumatoid disease on steroids and other anti-suppressants with recent history of streptococcal pneumonia presents with CT demonstrating bilateral hydropneumothoraces at the bases. Left thoracentesis was performed yesterday and demonstrated possible with positive bacteria including gram positives and gram negatives. Suspicion of bilateral empyema was held and certainly we knew we had left-sided empyema and bilateral chest tube placement was indicated for drainage. Operative Findings: Bilaterally the pleural spaces were fibrotic and we had to disconnect posteriorly in order to get into the free pleural spaces at the bases. On the right there was minimal fluid and no purulence. On the left there was purulence. Both sides were irrigated out. Both sides were connected to separate Pleur-evacs. Description of Procedure: Patient was brought to the operating room placed supine the operating table. IV sedation was given. The anterior chest was sterilely prepped and draped. Incision was made in the anterior axillary line first on the right. Marcaine anesthesia was used. Dissection was carried over the seventh rib posteriorly and into the pleural space. Total space was fused. Blunt dissection was used to dissected posteriorly into the free pleural space. 28-Bermudian chest tube was then placed in the pleural space and advanced. Minimal fluid return came. We irrigated and got some relatively serous looking returned. Chest tube was secured with 2 suture ligatures of 0 Ethibond. Was connected to a Pleur-evac. We then placed a similar chest tube on the left. Again the pleural space was fairly fibrotic and dissection was carried posteriorly into the free pleural space. This time we encountered a large amount of pus. 28-Bermudian chest tube was advanced. Was secured with 2 Ethibond sutures. We then irrigated out all the pus until clear with several 100 mL of warm saline. This was connected to a separate Pleur-evac. Dry sterile dressings were applied and the patient was transferred to recovery room.
[2020-01-01] MEDS ORDERED: HYDROmorphone 1 MG/ML 1 ML SYRINGE IVP ONE (16:35)
--- NOTE | 2020-01-01 16:43 | XR ---
EXAMINATION TYPE: XR chest 1V portable DATE OF EXAM: 01/01/2020 COMPARISON: Today HISTORY: Empyema. Chest tube placement TECHNIQUE: Single view FINDINGS: There are bilateral chest tubes. There is pleural thickening along the lower lateral chest galicia. There is some atelectasis and infiltrate at the lung bases. There is no sign of pneumothorax. There is no gross heart failure. There are chest leads. IMPRESSION: No pneumothorax. Pleural fluid improved compared to exam earlier this morning. Infiltrate and atelectasis at the lung bases unchanged.
--- NOTE | 2020-01-01 20:16 | P.PN ---
Progress Note - Text Progress Note Date: 01/01/20 Chief Complaint: Cough, congested History of present complaint: This is a very pleasant 59-year-old patient of Dr. Morris. Follows with consulting database administrator Dr. Emma Lowe. 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 This was mid foot fusion. Patient had a wound and was admitted in July 2018 to our hospital. Also did cellulitis of the right foot. March 2019. Patient also has known rheumatoid lung disease and pleural effusions. He had a bronchoscopy with lavage in August 2019. He states since June he did have a respiratory symptoms off and on. Including cough and congestion. No obvious fever and chills. In the interim he is recently see Dr. Gamino and given some antibiotics. Also be of this year he was seen by Dr. Dubois from cardiothoracic surgery and given a Z-Denzel and steroids. SLIGHT improvement. Patient was seen by Dr. Christianson yesterday and a computed tomography scan of the chest revealed loculated hydropneumothorax bilaterally. There are no pulmonary abnormalities o n computed tomography scan. Patient had about 270 mL of left-sided thoracentesis done today. Possible empyema. Rheumatoid fluid cannot be ruled out. Patient's appetite has been okay. Bronchoscopy cultures in August of this year did reveal Streptococcus pneumoniae and Inessa albicans. This was done by Dr. Christianson. Today-so the patient this morning. Sitting upon a chair. Some shortness of breath. Slight cough. Pending chest tube placement on both the sides. There was done later this afternoon. This was for empyema. Review of systems: Was done for constitutional, cardiovascular, GI, pulmonary. relevant finding as above Active Medications Enoxaparin Sodium (Lovenox) 40 mg SQ DAILY [facility] Last Admin: 01/01/20 10:35 Dose: Not Given Documented by: HCTZ/Losartan Potassium (Hyzaar 50-12.5) 1 each PO DAILY [facility] Last Admin: 01/01/20 10:35 Dose: 1 each Documented by: Sodium Chloride (Saline 0.9%) 1,000 mls @ 130 mls/hr IV .Q7H42M [facility] Last Admin: 01/01/20 18:44 Dose: 130 mls/hr Documented by: Vancomycin HCl 1,750 mg/ (Sodium Chloride) 500 mls @ 167 mls/hr IVPB Q12H [facility] Last Admin: 01/01/20 13:08 Dose: 167 mls/hr Documented by: Cefepime HCl 2 gm/ Sodium (Chloride) 100 mls @ 200 mls/hr IVPB Q12HR [facility] Last Admin: 01/01/20 10:34 Dose: 200 mls/hr Documented by: Leflunomide (Arava) 20 mg PO DAILY [facility] Last Admin: 01/01/20 10:35 Dose: 20 mg Documented by: Levothyroxine Sodium (Synthroid) 150 mcg PO DAILY@0630 [facility] Last Admin: 01/01/20 06:07 Dose: 150 mcg Documented by: Methylprednisolone (Medrol) 4 mg PO DAILY [facility] Last Admin: 01/01/20 13:07 Dose: 4 mg Documented by: Metoprolol Tartrate (Lopressor) 50 mg PO TID [facility] Last Admin: 01/01/20 18:43 Dose: 50 mg Documented by: Naloxone HCl (Narcan) 0.2 mg IV Q2M PRN PRN Reason: Opioid Reversal Tofacitinib Citrate ([Xeljanz Xr] 11 Mg) 11 mg PO DAILY [facility] Last Admin: 01/01/20 10:36 Dose: Not Given Documented by: Physical examination: VITAL SIGNS: 97.8, 64, 113/77, 92% room air GENERAL: Sitting upon a chair, awake EYES: Pupils equal. Conjunctiva normal. HEENT: External appearance of nose and ears normal, oral cavity grossly normal. NECK: JVD not raised; masses not palpable. HEART: First and second heart sounds are normal; no edema. LUNGS: Respiratory rate increased, diminished breath sounds ABDOMEN: Soft, nontender, liver spleen not palpable, no masses palpable. PSYCH: Alert and oriented x3; mood and affect normal. INVESTIGATIONS, reviewed in the clinical context: Pro calcitonin 0.13 Previous testing White count 13.8 hemoglobin 12.8 potassium 3.7 creatinine 0.97 albumin 3.2 COVID -19 PCF-not detected EKG tracing personally reviewed by me-normal sinus rhythm nonspecific T-wave changes Chest x-ray film personally reviewed by me-bilateral florid with horizontal level Assessment: -Bilateral empyema with thoracentesis of 270 mL. On the left side. Today December 31 bilateral chest tubes were placed -Chronic rheumatoid arthritis with rheumatoid lung -Hypothyroid -Essential hypertension -Obesity BMI 31.5 Plan: -Patient currently on vancomycin and cefepime. Other medications to continue. Care was discussed with the patient. Cut back rate of IV fluids. Repeat labs in the morning.
[2020-01-01] MEDS ORDERED: traMADol 50 MG TAB PO PRN (21:14)
[2020-01-02] MEDS: LACTATED RINGERS 1,000 ML IV SCH ×3 (00:02→12:45)
[2020-01-02] MEDS: VANCOMYCIN 1,750 MG in SODIUM CHLORIDE 0.9% 500 ML 500 ML IVPB SCH ×2 (00:02→12:45)
[2020-01-02] MEDS: LEVOTHYROXINE 75 MCG TAB PO SCH (06:10)
--- NOTE | 2020-01-02 06:29 | XR ---
EXAMINATION TYPE: XR chest 1V portable DATE OF EXAM: 01/02/2020 HISTORY: empyema. REFERENCE: Previous study dated 01/01/2020. FINDINGS: The heart is enlarged. There is worsening bibasilar airspace disease. A right pleural drain remains in place. There are small, bilateral effusions. IMPRESSION: 1. CARDIOMEGALY. 2. WORSENING BIBASILAR LATERAL AIRSPACE DISEASE. 3. SMALL, BILATERAL EFFUSIONS.
[2020-01-02 08:14] LABS: Anisocytosis Slight; HCT 42.7 % (39.0-53.0); HGB 12.6 gm/dL (13.0-17.5); Hypochromasia Marked; MCH 26.5 pg (25.0-35.0); MCHC 29.6 g/dL (31.0-37.0); MCV 89.4 fL (80.0-100.0); Mean Platelet Volume 8.3; Platelet Count 294 k/uL (150-450); RBC 4.77 m/uL (4.30-5.90); WBC 15.2 k/uL (3.8-10.6)
[2020-01-02 08:28] LABS: ALT 43 U/L (4-49); AST 26 U/L (17-59); African American GFR (CKD) >90 (>60 ml/min/1.73 sqM); Albumin 2.9 g/dL (3.5-5.0); Alkaline Phosphatase 189 U/L (38-126); Anion Gap 6 mmol/L; Blood Urea Nitrogen 14 mg/dL (9-20); Calcium 8.6 mg/dL (8.4-10.2); Carbon Dioxide 24 mmol/L (22-30); Chloride 106 mmol/L (98-107); Glucose 89 mg/dL (74-99); Non-African American GFR(CKD) >90 (>60 ml/min/1.73 sqM); Potassium 4.3 mmol/L (3.5-5.1); Sodium 136 mmol/L (137-145); Total Bilirubin 0.6 mg/dL (0.2-1.3); Total Protein 6.4 g/dL (6.3-8.2)
--- NOTE | 2020-01-02 08:50 | P.PN ---
Subjective Progress Note Date: 01/02/20 Principal diagnosis: Bilateral bibasilar hydropneumothorax with documented empyema on the left, status post left sided thoracentesis. Present medical history of strep pneumonia on bronchiolar lavage in August 2027, rheumatoid arthritis with rheumatoid nodules in the lung currently treated with prednisone, Xeljanz, and Arava, history of hypertension, hypothyroidism, previous tobacco dependence, and family history of lung cancer. POD #1 bilateral chest tube placement The patient is currently sitting up in the recliner on the cardiac stepdown unit in no acute distress. Denies any pain, shortness of breath. States he feels little better everyday. Bilateral chest tubes present, minimal drainage from the right chest tube, positive drainage left chest tube with air leak present. Remains afebrile. Currently receiving vancomycin and cefepime per infectious disease. Continues with steroids, Xeljanz and Arava for his rheumatoid arthritis. No new concerns. Objective - Vital Signs Vital signs: Vital Signs Temp 98.1 F 01/02/20 03:51 Pulse 110 H 01/02/20 03:51 Resp 18 01/02/20 03:51 BP 97/71 01/02/20 03:51 Pulse Ox 94 L 01/02/20 03:51 Intake & Output 01/01/20 01/02/20 01/02/20 18:59 06:59 18:59 Intake Total 1880 Output Total 10 1185 Balance 1870 -1185 Weight 108 kg Intake: IV 500 Intake, IV Titration 1140 Amount Cefepime 2 gm In Sodium 100 Chloride 0.9% 100 ml @ 200 mls/hr IVPB Q12HR [facility] Rx#:[id number] Sodium Chloride 0.9% 1, 1040 000 ml @ 130 mls/hr IV . Q7H42M [facility] Rx#:[id number] Oral 240 Output: Chest Tube Drainage 185 Chest Tube Left Anterior 125 Chest Chest Tube Right Anterior 60 Chest Urine 1000 Estimated Blood Loss 10 Other: Voiding Method Toilet # Voids 400 - Constitutional General appearance: Present: cooperative, no acute distress - Respiratory Details: Lungs sounds diminished bilaterally with faint expiratory wheezes heard posteriorly. Respirations even, nonlabored.currently on room air with oxygen saturation 94%. Able to achieve 1000 mL on his incentive spirometry. Strong cough. Right and left pleural chest tubes present to continuous wall suction, right pleural chest tube with 60 mL serosanguineous drainage overnight, 65 mL since surgery, no air leak present. Left pleural chest tube with 125 mL serosanguineous drainage overnight, 140 mL since surgery, positive positional air leak present with expiration. - Cardiovascular Details: S1, S2 present. Regular rate and rhythm, sinus rhythm on telemetry with heart rate in the 90s. Palpable peripheral pulses bilaterally. No edema present. - Gastrointestinal Gastrointestinal Comment(s): abdomen soft, nontender, nondistended. Active bowel sounds present 4 quadrants. Tolerating diet. - Genitourinary Genitourinary Comment(s): continues to void - Integumentary Integumentary Comment(s): skin is warm and dry with evidence of good perfusion. Multiple areas of ecchymosis present bilateral arms - Neurologic Neurologic: Present: CNII-XII intact - Musculoskeletal Musculoskeletal: Present: gait normal, strength equal bilaterally - Psychiatric Psychiatric: Present: A&O x's 3, appropriate affect, intact judgment & insight - Allied health notes Allied health notes reviewed: nursing - Labs CBC & Chem 7: 01/02/20 07:29 01/02/20 07:29 Labs: Abnormal Lab Results - Last 24 Hours (Table) 01/01/20 01/02/20 Range/Units 06:37 07:29 Sodium 136 L (137-145) mmol/L Creatinine 0.63 L (0.66-1.25) mg/dL Alkaline Phosphatase 189 H (38-126) U/L Albumin 2.9 L (3.5-5.0) g/dL Procalcitonin 0.13 H (0.02-0.09) ng/mL Microbiology - Last 24 Hours (Table) 12/30/19 18:55 Blood Culture - Preliminary Blood No Growth after 48 hours 12/31/19 10:58 Acid Fast Bacilli Smear - Final Pleural Fluid Acid Fast Bacilli Culture - Preliminary - Imaging and Cardiology Chest x-ray: report reviewed, image reviewed Assessment and Plan Assessment: 1. Loculated bilateral hydropneumothorax, left wrist and right, status post left-sided thoracentesis, possible empyema, history of strep pneumoniae on bronchiolar lavage in August 2019, status post bilateral chest tube placement 2. Rheumatoid arthritis with rheumatoid nodules in the lung, currently treated with prednisone and Xeljanz 3. Hypertension 4. Hypothyroidism 5. Previous tobacco dependence 6. Family history of lung cancer Plan: 1. Will place right chest tube to water seal, continue left chest tube to wall suction for another 24 hours. Will monitor drainage and resolution of air leak in the left chest tube. 2. Repeat chest x-ray in the morning 3. Continue IV antibiotics per infectious disease 4. Encourage incentive spirometry use 10 times every hour while awake 5. Increase activity, ambulate as tolerated. May take chest tubes off suction periodically for patient to ambulate. 6. Continue medical management of other comorbidities per primary care service 7. More recommendations to follow Time with Patient: Greater than 30
[2020-01-02] MEDS: LEFLUNOMIDE 20 MG TAB PO SCH (09:31)
[2020-01-02] MEDS: ENOXAPARIN 40 MG/0.4 ML SYRINGE SQ SCH (09:31)
[2020-01-02] MEDS: methylPREDNISolone 4 MG TAB PO SCH (09:32)
[2020-01-02] MEDS: METOPROLOL TARTRATE 50 MG TAB PO SCH ×3 (09:33→20:24)
[2020-01-02] MEDS: LOSARTAN-HCTZ 50-12.5 MG 1 EACH TAB PO SCH (09:33)
[2020-01-02] MEDS: CEFEPIME 2 GM in SODIUM CHLORIDE 0.9% 100 ML IVPB SCH ×2 (09:36→20:23)
[2020-01-02 10:24] LABS: Band Neutrophils % 4 %; Eosinophils # (M) 0.15 k/uL (0-0.7); Lymphocytes # (M) 0.76 k/uL (1.0-4.8); Metamyelocytes # (M) 0.15 k/uL (0); Metamyelocytes % 1 %; Monocytes # (M) 1.52 k/uL (0-1.0); Myelocytes # (M) 0.61 k/uL (0); Myelocytes % 4 %; Neutrophils % (M) 77 %; Nucleated Red Blood Cells 0 /100 WBC (0-0); Poikilocytosis (M) Present; Total Cells Counted 200
--- NOTE | 2020-01-02 11:36 | P.PN ---
Subjective Progress Note Date: 01/02/20 Principal diagnosis: Dyspnea secondary to bilateral pleural effusion This is a very pleasant 59-year-old gentleman who follows with Dr. Morris as his primary care provider. He has a history of hypertension, hypothyroidism, rheumatoid arthritis and is maintained on prednisone and Xeljanz. He has a history of rheumatoid lung disease with pleural effusions and previous Strepto coccus pneumoniae found in a bronchoscopy wash and August 2019. Recently he had been having issues with increasing shortness of breath cough, fatigue and congestion with greenish productive sputum. He had been seen by Dr. Gamino on 12/17/2019 and prescribed a Z-Denzel and treated with steroids. He improved briefly but then symptoms had recurred and he was seen yesterday by Dr. Dutton with ongoing complaints of greenish yellow phlegm with chest congestion. He had an abnormal chest x-ray and was sent for computed tomography scan of the chest which revealed development of loculated hydropneumothorax bilaterally at the lung bases. There was the multiple bilateral pulmonary nodules and the larger prior cavitary lesions were resolved. However 1 irregular density on the right posterior lateral area has enlarged. He was informed to report to the emergency room and subsequently admitted. He is seen today in consultation on the selective care unit. He is currently sitting up in a chair at the bedside. Awake and alert in no acute distress. Maintaining O2 saturations in the 90s on room air. He's been afebrile. Slightly tachycardic. White count 13.8. Hemoglobin 12.8. Sodium 138. Potassium 3.7. Creatinine 0.97. AST 29. ALT 71. Troponin negative. ProBNP 230. Ultrasound of the chest reveals a small right pleural effusion measuring 1.8 cm. There is a left pleural effusion measuring 4.[address] Dougherty did perform a left-sided thoracentesis today and the return appeared to resemble empyema versus rheumatoid fluid. Dyspneic, yellowish-green fluid. Approximately 270 mL removed. Cultures, fluid analysis and pH were sent. The patient is seen today 01/01/2020 in follow-up on the selective care unit. He is currently sitting up in a chair at the bedside. Awake and alert in no acute distress. He is maintaining good O2 saturations in the 90s on room air. He remains afebrile. Hemodynamically stable. Pleural fluid cultures are pending. Preliminary results reveal many gram-positive cocci and few gram- negative bacilli. Blood cultures reveal no growth to date. Creatinine 0.71. He remains on cefepime and vancomycin. ID is on the case. Today's chest x-ray reveals well-defined air-fluid levels at the lung bases. Suspect hydropne umothoraces. Superior or midlung pneumothorax components are not identified. Diffuse interstitial opacities persist. The patient is seen today 01/02/2020 in follow-up on the selective care unit. Darlene lazcano did undergo bilateral chest tube placements yesterday. He is currently sitting up in a chair at the bedside. Awake and alert in no acute distress. Maintaining good O2 saturations in the mid 90s on room air. He's afebrile. Hemodynamically stable. Chest x-ray shows bibasilar lateral airspace disease with small effusions. Preliminary pleural fluid cultures reveal many gram- positive cocci, few gram-negative bacilli. White count 15.2. Hemoglobin 12.6. Sodium 136. Potassium 4.3. Creatinine 0.63. He is continued on cefepime and vancomycin. He is working well with the incentive spirometer. Lovenox for DVT prophylaxis. Objective - Vital Signs Vital signs: Vital Signs Temp 98.1 F 01/02/20 08:00 Pulse 100 01/02/20 08:00 Resp 16 01/02/20 08:00 BP 126/72 01/02/20 08:00 Pulse Ox 95 01/02/20 08:00 Intake & Output 01/01/20 01/02/20 01/02/20 18:59 06:59 18:59 Intake Total 1880 Output Total 10 1185 Balance 1870 -1185 Weight 108 kg Intake: IV 500 Intake, IV Titration 1140 Amount Cefepime 2 gm In Sodium 100 Chloride 0.9% 100 ml @ 200 mls/hr IVPB Q12HR [facility] Rx#:[id number] Sodium Chloride 0.9% 1, 1040 000 ml @ 130 mls/hr IV . Q7H42M [facility] Rx#:[id number] Oral 240 Output: Chest Tube Drainage 185 Chest Tube Left Anterior 125 Chest Chest Tube Right Anterior 60 Chest Urine 1000 Estimated Blood Loss 10 Other: Voiding Method Toilet # Voids 400 - Exam GENERAL EXAM: Alert, very pleasant 59-year-old gentleman, on room air, comfortable in no apparent distress. HEAD: Normocephalic. EYES: Normal reaction of pupils, equal size. NOSE: Clear with pink turbinates. THROAT: No erythema or exudates. NECK: No masses, no JVD. CHEST: No chest wall deformity. Bilateral chest tubes remain in place. LUNGS: Equal air entry with basilar crackles, diminished, more so on the left. CVS: S1 and S2 normal with no audible murmur, regular rhythm. ABDOMEN: No hepatosplenomegaly, normal bowel sounds, no guarding or rigidity. SPINE: No scoliosis or deformity SKIN: No rashes CENTRAL NERVOUS SYSTEM: No focal deficits, tone is normal in all 4 extremities. EXTREMITIES: There is no peripheral edema. No clubbing, no cyanosis. Peripheral pulses are intact. - Labs CBC & Chem 7: 01/02/20 07:29 01/02/20 07:29 Labs: Abnormal Lab Results - Last 24 Hours (Table) 01/01/20 01/02/20 01/02/20 Range/Units 06:37 07:29 07:29 WBC 15.2 H (3.8-10.6) k/uL Hgb 12.6 L (13.0-17.5) gm/dL MCHC 29.6 L (31.0-37.0) g/dL RDW 16.0 H (11.5-15.5) % Neutrophils # (Manual) 12.30 H (1.3-7.7) k/uL Lymphocytes # (Manual) 0.76 L (1.0-4.8) k/uL Monocytes # (Manual) 1.52 H (0-1.0) k/uL Metamyelocytes # (Man) 0.15 H (0) k/uL Myelocytes # (Manual) 0.61 H (0) k/uL Sodium 136 L (137-145) mmol/L Creatinine 0.63 L (0.66-1.25) mg/dL Alkaline Phosphatase 189 H (38-126) U/L Albumin 2.9 L (3.5-5.0) g/dL Procalcitonin 0.13 H (0.02-0.09) ng/mL Microbiology - Last 24 Hours (Table) 12/30/19 18:55 Blood Culture - Preliminary Blood No Growth after 48 hours Assessment and Plan Assessment: 1 Dyspnea, cough congestion secondary to loculated hydropneumothorax bilaterally at the lung bases. Left greater than right. Status post thoracentesis on 12/31/2019 with fluid resembling empyema, possible rheumatoid lung. Status post bilateral chest tube placements on 01/01/2020. Preliminary cultures are revealing many gram positive cocci and few negatives bacilli. 2 History of Streptococcus pneumoniae a on bronchial wash in August 2019 3 Multiple bilateral pulmonary nodules including one irregular density along the right posterior lateral that has enlarged over time, rheumatoid lung 4 Rheumatoid arthritis maintained on Xeljanz and prednisone in the outpatient setting 5 Hypertension 6 Hypothyroidism 7 Former smoker Plan: The patient was seen and evaluated by Dr. Dougherty Chest x-ray and labs reviewed Status post bilateral chest tube placements per CT services Cultures, cytology, pH pending Continued on vancomycin and cefepime Encouraged regarding the increased use the incentive spirometer and cough and deep breathing exercises We'll continue to follow and make further recommendations based on his clinical status I, the cosigning physician, performed a history & physical examination of the patient. Lungs with crackles in the bilateral bases left greater than right, diminished left greater than right. Maintaining good O2 saturations in the 90s on room air. I discussed the assessment and plan of care with my nurse practitioner, Morena Cobb. I attest to the above note as dictated by her.
[2020-01-02] MEDS ORDERED: LIDOCAINE 1% INJ 10MG/ML (20 ML MDV) ONE (15:37)
[2020-01-02] MEDS ORDERED: PROPOFOL 10 MG/ML 20 ML VIAL IV ONE (15:37)
[2020-01-02] MEDS ORDERED: fentaNYL (PF) 50 MCG/ML 2 ML AMP ONE (15:37)
[2020-01-02] MEDS ORDERED: MIDAZOLAM 2 MG/2 ML VIAL ONE (15:37)
--- NOTE | 2020-01-02 16:50 | P.PN ---
Progress Note - Text Progress Note Date: 01/02/20 Chief Complaint: Cough, congested History of present complaint: This is a very pleasant 59-year-old patient of Dr. Morris. 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 Emma Lowe. 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 This was mid foot fusion. Patient had a wound and was admitted in July 2018 to our hospital. Also did cellulitis of the right foot. March 2019. Patient also has known rheumatoid lung disease and pleural effusions. He had a bronchoscopy with lavage in August 2019. He states since June he did have a respiratory symptoms off and on. Including cough and congestion. No obvious fever and chills. In the interim he is recently see Dr. Gamino and given some antibiotics. Also be of this year he was seen by Dr. Dubois from cardiothoracic surgery and given a Z-Denzel and steroids. SLIGHT improvement. Patient was seen by Dr. Christianson yesterday and a computed tomography scan of the chest revealed loculated hydropneumothorax bilaterally. There are no pulmonary abnormalities o n computed tomography scan. Patient had about 270 mL of left-sided thoracentesis done today. Possible empyema. Rheumatoid fluid cannot be ruled out. Patient's appetite has been okay. Bronchoscopy cultures in August of this year did reveal Streptococcus pneumoniae and Inessa albicans. This was done by Dr. Christianson. Today-chest tubes in place. Breathing is fine. Slight cough. Tolerating a diet. Watching television. Review of systems: Was done for constitutional, cardiovascular, GI, pulmonary. relevant finding as above Active Medications Enoxaparin Sodium (Lovenox) 40 mg SQ DAILY [facility] Last Admin: 01/02/20 09:31 Dose: 40 mg Documented by: HCTZ/Losartan Potassium (Hyzaar 50-12.5) 1 each PO DAILY [facility] Last Admin: 01/02/20 09:33 Dose: 1 each Documented by: Vancomycin HCl 1,750 mg/ (Sodium Chloride) 500 mls @ 167 mls/hr IVPB Q12H [facility] Last Admin: 01/02/20 12:45 Dose: 167 mls/hr Documented by: Cefepime HCl 2 gm/ Sodium (Chloride) 100 mls @ 200 mls/hr IVPB Q12HR [facility] Last Admin: 01/02/20 09:36 Dose: 200 mls/hr Documented by: Lactated Ringer's (Lactated Ringers) 1,000 mls @ 125 mls/hr IV .Q8H [facility] Last Admin: 01/02/20 12:45 Dose: 125 mls/hr Documented by: Leflunomide (Arava) 20 mg PO DAILY [facility] Last Admin: 01/02/20 09:31 Dose: 20 mg Documented by: Levothyroxine Sodium (Synthroid) 150 mcg PO DAILY@0630 [facility] Last Admin: 01/02/20 06:10 Dose: 150 mcg Documented by: Methylprednisolone (Medrol) 4 mg PO DAILY [facility] Last Admin: 01/02/20 09:32 Dose: 4 mg Documented by: Metoprolol Tartrate (Lopressor) 50 mg PO TID [facility] Last Admin: 01/02/20 16:22 Dose: 50 mg Documented by: Miscellaneous Information (Vancomycin Trough Due) 0 each MISCELLANE DIRECTED ONE Stop: 01/02/20 23:01 Naloxone HCl (Narcan) 0.2 mg IV Q2M PRN PRN Reason: Opioid Reversal Tofacitinib Citrate ([Xeljanz Xr] 11 Mg) 11 mg PO DAILY [facility] Last Admin: 01/02/20 09:36 Dose: Not Given Documented by: Tramadol HCl (Ultram) 50 mg PO Q6H PRN PRN Reason: Pain Last Admin: 01/01/20 21:43 Dose: 50 mg Documented by: Physical examination: VITAL SIGNS: 98.5, 14, 89, 104/70, 95% room air GENERAL: Sitting upon a chair, awake EYES: Pupils equal. Conjunctiva normal. HEENT: External appearance of nose and ears normal, oral cavity grossly normal. NECK: JVD not raised; masses not palpable. HEART: First and second heart sounds are normal; no edema. LUNGS: Respiratory rate increased, diminished breath sounds, right chest tube to waterseal, left chest tube to suction ABDOMEN: Soft, nontender, liver spleen not palpable, no masses palpable. PSYCH: Alert and oriented x3; mood and affect normal. INVESTIGATIONS, reviewed in the clinical context: White count 15.2 hemoglobin 12.6potassium 4.3 creatinine 0.63 pleural fluid cultures pending Previous testing White count 13.8 hemoglobin 12.8 potassium 3.7 creatinine 0.97 albumin 3.2 COVID -19 PCF-not detected EKG tracing personally reviewed by me-normal sinus rhythm nonspecific T-wave changes Chest x-ray film personally reviewed by me-bilateral florid with horizontal level Assessment: -Bilateral empyema with thoracentesis of 270 mL. On the left side. December 31 bilateral chest tubes were placed -Chronic rheumatoid arthritis with rheumatoid lung -Hypothyroid -Essential hypertension -Obesity BMI 31.5 Plan: -right chest tube to waterseal and left chest tube to suction.continue IV antibiotics including vancomycin and cefepime. Cut back IV fluids.
[2020-01-02] MEDS: LACTATED RINGERS 500 ML IV SCH (17:00)
--- NOTE | 2020-01-02 22:42 | PN ---
PROGRESS NOTE DATE OF SERVICE: 01/02/2020 REASON FOR FOLLOWUP: Left-sided empyema. INTERVAL HISTORY: The patient is currently afebrile. The patient is status post chest tube placement yesterday and patient tolerated the procedure. Complaining of some chest pain but no worsening. Breathing has improved. Continues to have some cough but decreased intensity. No vomiting or diarrhea. PHYSICAL EXAMINATION: Blood pressure 110/75 with a pulse of 81, temperature 98, he is 95% on room air. General description is a middle-aged male up in the chair in no distress. Respiratory system: Unlabored breathing, decreased breath sounds in the base, no wheeze. Heart S1, S2. Regular rate and rhythm. Abdomen soft, no tenderness. LABS: Hemoglobin is 12.1, white count 15.2, BUN of 14, creatinine 0.63. Fluid culture so far pending. Blood culture negative. DIAGNOSTIC IMPRESSION AND PLAN: Patient with left-sided empyema, status post chest tube placement. Waiting for the culture to finalize. Patient is covered with cefepime and Zosyn to continue and monitor his clinical course closely. MMODL / IJN: [id number] /
[2020-01-02] MEDS ORDERED: VANCOMYCIN TROUGH DUE 1 EACH MISC MISCELLANE ONE (23:00)
[2020-01-03] MEDS: VANCOMYCIN 1,750 MG in SODIUM CHLORIDE 0.9% 500 ML 500 ML IVPB SCH ×3 (00:40→20:44)
[2020-01-03] MEDS: LEVOTHYROXINE 75 MCG TAB PO SCH (06:25)
--- NOTE | 2020-01-03 06:54 | XR ---
EXAMINATION TYPE: XR chest 1V portable DATE OF EXAM: 01/03/2020 HISTORY: empyema. REFERENCE: Previous study dated 01/02/2020. FINDINGS: Right pleural drain is in place. The heart is enlarged. There is bibasilar airspace disease. There are bilateral effusions. IMPRESSION: NO SIGNIFICANT INTERVAL CHANGE IN APPEARANCE OF THE CHEST.
[2020-01-03] MEDS: CEFEPIME 2 GM in SODIUM CHLORIDE 0.9% 100 ML IVPB SCH ×2 (08:10→20:02)
[2020-01-03] MEDS: ENOXAPARIN 40 MG/0.4 ML SYRINGE SQ SCH (08:11)
[2020-01-03] MEDS: LEFLUNOMIDE 20 MG TAB PO SCH (08:11)
[2020-01-03] MEDS: METOPROLOL TARTRATE 50 MG TAB PO SCH ×3 (08:12→20:44)
[2020-01-03] MEDS: LOSARTAN-HCTZ 50-12.5 MG 1 EACH TAB PO SCH (08:12)
--- NOTE | 2020-01-03 08:55 | P.PN ---
Subjective Progress Note Date: 01/03/20 Principal diagnosis: Bilateral bibasilar hydropneumothorax with documented empyema on the left, status post left sided thoracentesis. Present medical history of strep pneumonia on bronchiolar lavage in August 2027, rheumatoid arthritis with rheumatoid nodules in the lung currently treated with prednisone, Xeljanz, and Arava, history of hypertension, hypothyroidism, previous tobacco dependence, and family history of lung cancer. POD #2 bilateral chest tube placement The patient is currently sitting up in the recliner on the cardiac stepdown unit in no acute distress. Denies any pain, shortness of breath. States he feels better everyday. Bilateral chest tubes present, minimal drainage from the right chest tube, positive drainage left chest tube with air leak present, right chest tube placed to waterseal yesterday. Remains afebrile. Currently receiving vancomycin and cefepime per infectious disease. Continues with steroids, Xeljanz and Arava for his rheumatoid arthritis. No new concerns. Objective - Vital Signs Vital signs: Vital Signs Temp 97.4 F L 01/03/20 08:00 Pulse 94 01/03/20 08:00 Resp 18 01/03/20 08:00 BP 124/83 01/03/20 08:00 Pulse Ox 95 01/03/20 08:00 Intake & Output 01/02/20 01/03/20 01/03/20 18:59 06:59 18:59 Intake Total 1725 840 100 Output Total 638 560 380 Balance 1087 280 -280 Weight 107.7 kg Intake: Intake, IV Titration 1125 100 Amount Cefepime 2 gm In Sodium 100 100 Chloride 0.9% 100 ml @ 200 mls/hr IVPB Q12HR [facility] Rx#:[id number] Lactated Ringers 1,000 ml 525 @ 125 mls/hr IV .Q8H [facility] Rx#:[id number] Vancomycin 1,750 mg In 500 Sodium Chloride 0.9% 500 ml 500 ml @ 167 mls/hr IVPB Q12H [facility] Rx#: [id number] Oral 600 840 Output: Chest Tube Drainage 288 58 Chest Tube Left Anterior 279 52 Chest Chest Tube Right Anterior 9 6 Chest Urine 350 502 380 Other: Voiding Method Urinal Urinal Urinal # Voids 1 900 - Constitutional General appearance: Present: cooperative, no acute distress - Respiratory Details: Lungs sounds diminished bilaterally with faint expiratory wheezes heard posteriorly. Respirations even, nonlabored.currently on room air with oxygen saturation 92%. Able to achieve 1250 mL on his incentive spirometry. Strong cough. Right and left pleural chest tubes present. Right pleural chest tube to waterseal with 10 mL serosanguineous drainage in the last 24 hours, no air leak present. Left pleural chest tube to continuous wall suction with 315 mL serosanguineous drainage in the last 24 hours, positive positional air leak present with a strong cough. - Cardiovascular Details: S1, S2 present. Regular rate and rhythm, sinus rhythm on telemetry with heart rate in the 80s. Palpable peripheral pulses bilaterally. No edema present. - Gastrointestinal Gastrointestinal Comment(s): abdomen soft, nontender, nondistended. Active bowel sounds present 4 quadrant s. Tolerating diet. - Genitourinary Genitourinary Comment(s): continues to void - Integumentary Integumentary Comment(s): skin is warm and dry with evidence of good perfusion. Multiple areas of ecchymosis present bilateral arms - Neurologic Neurologic: Present: CNII-XII intact - Musculoskeletal Musculoskeletal: Present: gait normal, strength equal bilaterally - Psychiatric Psychiatric: Present: A&O x's 3, appropriate affect, intact judgment & insight - Allied health notes Allied health notes reviewed: nursing - Labs CBC & Chem 7: 01/02/20 07:29 01/02/20 07:29 Labs: Abnormal Lab Results - Last 24 Hours (Table) 01/02/20 Range/Units 07:29 Neutrophils # (Manual) 12.30 H (1.3-7.7) k/uL Lymphocytes # (Manual) 0.76 L (1.0-4.8) k/uL Monocytes # (Manual) 1.52 H (0-1.0) k/uL Metamyelocytes # (Man) 0.15 H (0) k/uL Myelocytes # (Manual) 0.61 H (0) k/uL Microbiology - Last 24 Hours (Table) 12/30/19 18:55 Blood Culture - Preliminary Blood No Growth after 72 hours 12/31/19 10:58 Anaerobic Culture - Preliminary Pleural Fluid - Imaging and Cardiology Chest x-ray: report reviewed, image reviewed Assessment and Plan Assessment: 1. Loculated bilateral hydropneumothorax, left wrist and right, status post left-sided thoracentesis, possible empyema, history of strep pneumoniae on bronchiolar lavage in August 2019, status post bilateral chest tube placement 2. Rheumatoid arthritis with rheumatoid nodules in the lung, currently treated with prednisone and Xeljanz 3. Hypertension 4. Hypothyroidism 5. Previous tobacco dependence 6. Family history of lung cancer Plan: 1. Right pleural chest tube discontinued without incident, continue left chest tube to wall suction for another 24 hours. Will monitor drainage and resolution of air leak. 2. Repeat chest x-ray in the morning 3. Continue IV antibiotics per infectious disease 4. Encourage incentive spirometry use 10 times every hour while awake 5. Increase activity, ambulate as tolerated. May take chest tube off suction periodically for patient to ambulate. 6. Continue medical management of other comorbidities per primary care service 7. More recommendations to follow Time with Patient: Greater than 30
[2020-01-03] MEDS: methylPREDNISolone 4 MG TAB PO SCH (09:38)
[2020-01-03] MEDS ORDERED: VANCOMYCIN TROUGH DUE 1 EACH MISC MISCELLANE ONE (11:00)
[2020-01-03 11:01] LABS: African American GFR (CKD) >90 (>60 ml/min/1.73 sqM); Non-African American GFR(CKD) >90 (>60 ml/min/1.73 sqM)
[2020-01-03] MEDS: LACTATED RINGERS 500 ML IV SCH (11:39)
--- NOTE | 2020-01-03 12:16 | P.PN ---
Subjective Progress Note Date: 01/03/20 Principal diagnosis: Dyspnea secondary to bilateral pleural effusion This is a very pleasant 59-year-old gentleman who follows with Dr. Morris as his primary care provider. He has a history of hypertension, hypothyroidism, rheumatoid arthritis and is maintained on prednisone and Xeljanz. He has a history of rheumatoid lung disease with pleural effusions and previous Strepto coccus pneumoniae found in a bronchoscopy wash and August 2019. Recently he had been having issues with increasing shortness of breath cough, fatigue and congestion with greenish productive sputum. He had been seen by Dr. Gamino on 12/17/2019 and prescribed a Z-Denzel and treated with steroids. He improved briefly but then symptoms had recurred and he was seen yesterday by Dr. Dutton with ongoing complaints of greenish yellow phlegm with chest congestion. He had an abnormal chest x-ray and was sent for computed tomography scan of the chest which revealed development of loculated hydropneumothorax bilaterally at the lung bases. There was the multiple bilateral pulmonary nodules and the larger prior cavitary lesions were resolved. However 1 irregular density on the right posterior lateral area has enlarged. He was informed to report to the emergency room and subsequently admitted. He is seen today in consultation on the selective care unit. He is currently sitting up in a chair at the bedside. Awake and alert in no acute distress. Maintaining O2 saturations in the 90s on room air. He's been afebrile. Slightly tachycardic. White count 13.8. Hemoglobin 12.8. Sodium 138. Potassium 3.7. Creatinine 0.97. AST 29. ALT 71. Troponin negative. ProBNP 230. Ultrasound of the chest reveals a small right pleural effusion measuring 1.8 cm. There is a left pleural effusion measuring 4.[address] Dougherty did perform a left-sided thoracentesis today and the return appeared to resemble empyema versus rheumatoid fluid. Dyspneic, yellowish-green fluid. Approximately 270 mL removed. Cultures, fluid analysis and pH were sent. The patient is seen today 01/01/2020 in follow-up on the selective care unit. He is currently sitting up in a chair at the bedside. Awake and alert in no acute distress. He is maintaining good O2 saturations in the 90s on room air. He remains afebrile. Hemodynamically stable. Pleural fluid cultures are pending. Preliminary results reveal many gram-positive cocci and few gram- negative bacilli. Blood cultures reveal no growth to date. Creatinine 0.71. He remains on cefepime and vancomycin. ID is on the case. Today's chest x-ray reveals well-defined air-fluid levels at the lung bases. Suspect hydropne umothoraces. Superior or midlung pneumothorax components are not identified. Diffuse interstitial opacities persist. The patient is seen today 01/02/2020 in follow-up on the selective care unit. Darlene lazcano did undergo bilateral chest tube placements yesterday. He is currently sitting up in a chair at the bedside. Awake and alert in no acute distress. Maintaining good O2 saturations in the mid 90s on room air. He's afebrile. Hemodynamically stable. Chest x-ray shows bibasilar lateral airspace disease with small effusions. Preliminary pleural fluid cultures reveal many gram- positive cocci, few gram-negative bacilli. White count 15.2. Hemoglobin 12.6. Sodium 136. Potassium 4.3. Creatinine 0.63. He is continued on cefepime and vancomycin. He is working well with the incentive spirometer. Lovenox for DVT prophylaxis. The patient is seen today 01/03/2020 in follow-up on the selective care unit. He is currently awake and alert in no acute distress. He's been up in the chair. He's been up ambulating in the hallway with assistance. No worsening shortness of breath, cough or congestion. Working well with the incentive spirometer. Right sided chest tube was removed this morning. Left chest tube remains in place. Chest x-ray continues to show basilar airspace disease left greater than right. Preliminary pleural fluid cultures reveal many gram- positive cocci, few gram-negative bacilli. Final ID still pending. Creatinine 0.62. He remains on vancomycin and cefepime. Lovenox for DVT prophylaxis. Objective - Vital Signs Vital signs: Vital Signs Temp 98.2 F 01/03/20 11:46 Pulse 85 01/03/20 11:46 Resp 18 01/03/20 11:46 BP 112/73 01/03/20 11:46 Pulse Ox 95 01/03/20 11:46 Intake & Output 01/02/20 01/03/20 01/03/20 18:59 06:59 18:59 Intake Total 1725 840 100 Output Total 638 560 380 Balance 1087 280 -280 Weight 107.7 kg Intake: Intake, IV Titration 1125 100 Amount Cefepime 2 gm In Sodium 100 100 Chloride 0.9% 100 ml @ 200 mls/hr IVPB Q12HR [facility] Rx#:[id number] Lactated Ringers 1,000 ml 525 @ 125 mls/hr IV .Q8H [facility] Rx#:[id number] Vancomycin 1,750 mg In 500 Sodium Chloride 0.9% 500 ml 500 ml @ 167 mls/hr IVPB Q12H [facility] Rx#: [id number] Oral 600 840 Output: Chest Tube Drainage 288 58 Chest Tube Left Anterior 279 52 Chest Chest Tube Right Anterior 9 6 Chest Urine 350 502 380 Other: Voiding Method Urinal Urinal Urinal # Voids 1 900 - Exam GENERAL EXAM: Alert, very pleasant 59-year-old gentleman, on room air, comfortable in no apparent distress. HEAD: Normocephalic. EYES: Normal reaction of pupils, equal size. NOSE: Clear with pink turbinates. THROAT: No erythema or exudates. NECK: No masses, no JVD. CHEST: No chest wall deformity. Right-sided chest tube removed. Left chest tube remains in place. LUNGS: Equal air entry with basilar crackles, diminished, more so on the left. CVS: S1 and S2 normal with no audible murmur, regular rhythm. ABDOMEN: No hepatosplenomegaly, normal bowel sounds, no guarding or rigidity. SPINE: No scoliosis or deformity SKIN: No rashes CENTRAL NERVOUS SYSTEM: No focal deficits, tone is normal in all 4 extremities. EXTREMITIES: There is no peripheral edema. No clubbing, no cyanosis. Peripheral pulses are intact. - Labs CBC & Chem 7: 01/02/20 07:29 01/03/20 10:37 Labs: Abnormal Lab Results - Last 24 Hours (Table) 01/03/20 Range/Units 10:37 Creatinine 0.62 L (0.66-1.25) mg/dL Microbiology - Last 24 Hours (Table) 12/30/19 18:55 Blood Culture - Preliminary Blood No Growth after 72 hours 12/31/19 10:58 Anaerobic Culture - Preliminary Pleural Fluid Assessment and Plan Assessment: 1 Dyspnea, cough congestion secondary to loculated hydropneumothorax bilaterally at the lung bases. Left greater than right. Status post thoracentesis on 12/31/2019 with fluid resembling empyema, possible rheumatoid lung. Status post bilateral chest tube placements on 01/01/2020. Preliminary cultures are revealing many gram positive cocci and few negatives bacilli. Final ID still pending. 2 History of Streptococcus pneumoniae a on bronchial wash in August 2019 3 Multiple bilateral pulmonary nodules including one irregular density along the right posterior lateral that has enlarged over time, rheumatoid lung 4 Rheumatoid arthritis maintained on Xeljanz and prednisone in the outpatient setting 5 Hypertension 6 Hypothyroidism 7 Former smoker Plan: The patient was seen and evaluated by Dr. Dougherty Right-sided chest tube removed, left chest tube remains in place May need alteplase to the left chest Chest x-ray in a.m. Final culture ID and pH level pending, cytology negative for malignancy Continued on vancomycin and cefepime Encouraged regarding the increased use the incentive spirometer and cough and deep breathing exercises We'll continue to follow and make further recommendations based on his clinical status I, the cosigning physician, performed a history & physical examination of the patient. Lungs with crackles in the bilateral bases left greater than right, diminished left greater than right. Maintaining good O2 saturations in the 90s on room air. I discussed the assessment and plan of care with my nurse practitioner, Morena Cobb. I attest to the above note as dictated by her.
--- NOTE | 2020-01-03 15:52 | P.PN ---
Progress Note - Text Progress Note Date: 01/03/20 Chief Complaint: Cough, congested History of present complaint: This is a very pleasant 59-year-old patient of Dr. Morris. 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 Emma Lowe. Patient lost his arch of his right foot and had surgery done at [facility] in June 2018. This was mid foot fusion. Patient had a wound and was admitted in July 2018 to our hospital. Also did cellulitis of the right foot. March 2019. Patient also has known rheumatoid lung disease and pleural effusions. He had a bronchoscopy with lavage in August 2019. He states since June he did have a respiratory symptoms off and on. Including cough and congestion. No obvious fever and chills. In the interim he is recently see Dr. Gamino and given some antibiotics. Also be of this year he was seen by Dr. Dubois from cardiothoracic surgery and given a Z-Denzel and steroids. SLIGHT improvement. Patient was seen by Dr. Christianson yesterday and a computed tomography scan of the chest revealed loculated hydropneumothorax bilaterally. There are no pulmonary abnormalities o n computed tomography scan. Patient had about 270 mL of left-sided thoracentesis done today. Possible empyema. Rheumatoid fluid cannot be ruled out. Patient's appetite has been okay. Bronchoscopy cultures in August of this year did reveal Streptococcus pneumoniae and Inessa albicans. Bronchoscopy-by Dr. Dutton. Today-right chest tube was removed today. Left chest tube to wall suction. Br eathing better. Slight cough. Eating well. Up in a chair. Pain control. Review of systems: Was done for constitutional, cardiovascular, GI, pulmonary. relevant finding as above Active Medications Enoxaparin Sodium (Lovenox) 40 mg SQ DAILY [facility] Last Admin: 01/03/20 08:11 Dose: 40 mg Documented by: HCTZ/Losartan Potassium (Hyzaar 50-12.5) 1 each PO DAILY [facility] Last Admin: 01/03/20 08:12 Dose: 1 each Documented by: Cefepime HCl 2 gm/ Sodium (Chloride) 100 mls @ 200 mls/hr IVPB Q12HR [facility] Last Admin: 01/03/20 08:10 Dose: 200 mls/hr Documented by: Lactated Ringer's (Lactated Ringers) 500 mls @ 20 mls/hr IV .Q24H [facility] Last Admin: 01/03/20 11:39 Dose: Not Given Documented by: Vancomycin HCl 1,750 mg/ (Sodium Chloride) 500 mls @ 167 mls/hr IVPB Q8H [facility] Leflunomide (Arava) 20 mg PO DAILY [facility] Last Admin: 01/03/20 08:11 Dose: 20 mg Documented by: Levothyroxine Sodium (Synthroid) 150 mcg PO DAILY@0630 [facility] Last Admin: 01/03/20 06:25 Dose: 150 mcg Documented by: Methylprednisolone (Medrol) 4 mg PO DAILY [facility] Last Admin: 01/03/20 09:38 Dose: 4 mg Documented by: Metoprolol Tartrate (Lopressor) 50 mg PO TID [facility] Last Admin: 01/03/20 15:22 Dose: 50 mg Documented by: Naloxone HCl (Narcan) 0.2 mg IV Q2M PRN PRN Reason: Opioid Reversal Tofacitinib Citrate ([Xeljanz Xr] 11 Mg) 11 mg PO DAILY [facility] Last Admin: 01/03/20 08:13 Dose: Not Given Documented by: Tramadol HCl (Ultram) 50 mg PO Q6H PRN PRN Reason: Pain Last Admin: 01/01/20 21:43 Dose: 50 mg Documented by: Physical examination: VITAL SIGNS: 98.5, 89, 16, 111/70, 95% on room air GENERAL: Sitting upon a chair, comfortable EYES: Pupils equal. Conjunctiva normal. HEENT: External appearance of nose and ears normal, oral cavity grossly normal. NECK: JVD not raised; masses not palpable. HEART: First and second heart sounds are normal; no edema. LUNGS: Respiratory rate increased, diminished breath sounds, right chest tube- removed, left chest tube to suction ABDOMEN: Soft, nontender, liver spleen not palpable, no masses palpable. PSYCH: Alert and oriented x3; mood and affect normal. INVESTIGATIONS, reviewed in clinical context: White count 15.2 hemoglobin 12.6potassium 4.3 creatinine 0.63 pleural fluid cultures pending Previous testing White count 13.8 hemoglobin 12.8 potassium 3.7 creatinine 0.97 albumin 3.2 COVID -19 PCF-not detected EKG tracing personally reviewed by me-normal sinus rhythm nonspecific T-wave changes Chest x-ray film personally reviewed by me-bilateral florid with horizontal level Assessment: -Bilateral empyema with thoracentesis of 270 mL. On the left side. December 31 bilateral chest tubes were placed -Chronic rheumatoid arthritis with rheumatoid lung -Hypothyroid -Essential hypertension -Obesity BMI 31.5 Plan: -right chest tube removed today. left chest tube to suction.continue IV antibiotics including vancomycin and cefepime. Pleural fluid cultures pending. Discussed with the patient. Repeat labs in the morning.
--- NOTE | 2020-01-04 01:05 | PN ---
PROGRESS NOTE DATE OF SERVICE: 01/03/2020 REASON FOR FOLLOWUP: Left-sided empyema. INTERVAL HISTORY: The patient is currently afebrile, has been breathing comfortably. One of the chest tubes has been discontinued. Denies having any chest pain. Minimal cough. No nausea, no vomiting. No abdominal pain, no diarrhea. PHYSICAL EXAMINATION: Blood pressure 108/71 with a pulse of 94, temperature 98.3. He is 93% on room air. General description is a middle-aged male lying in bed in no distress. RESPIRATORY SYSTEM: Unlabored breathing, decreased breath sounds in the bases. No wheeze. HEART: S1, S2. Regular rate and rhythm. ABDOMEN: Soft, no tenderness. LABS: Hemoglobin is 12.6, white count 15.2, creatinine 0.62. Pleural fluid culture so far pending. DIAGNOSTIC IMPRESSION AND PLAN: Patient with left-sided empyema, status post chest tubes. One of them has been discontinued. Culture so far pending. Patient is covered cefepime and vancomycin to continue and monitor clinical course closely. MMODL / IJN: [id number] /
[2020-01-04] MEDS: VANCOMYCIN 1,750 MG in SODIUM CHLORIDE 0.9% 500 ML 500 ML IVPB SCH ×2 (03:42→12:18)
[2020-01-04] MEDS: LEVOTHYROXINE 75 MCG TAB PO SCH (05:55)
[2020-01-04 07:40] LABS: African American GFR (CKD) >90 (>60 ml/min/1.73 sqM); Anion Gap 5 mmol/L; Blood Urea Nitrogen 13 mg/dL (9-20); Calcium 8.7 mg/dL (8.4-10.2); Carbon Dioxide 29 mmol/L (22-30); Chloride 104 mmol/L (98-107); Glucose 90 mg/dL (74-99); Non-African American GFR(CKD) >90 (>60 ml/min/1.73 sqM); Potassium 4.2 mmol/L (3.5-5.1); Sodium 138 mmol/L (137-145)
[2020-01-04 08:15] LABS: HCT 42.2 % (39.0-53.0); HGB 12.9 gm/dL (13.0-17.5); Hypochromasia Marked; MCH 27.6 pg (25.0-35.0); MCHC 30.6 g/dL (31.0-37.0); MCV 90.3 fL (80.0-100.0); Mean Platelet Volume 8.3; Platelet Count 283 k/uL (150-450); RBC 4.67 m/uL (4.30-5.90); RDW 15.7 % (11.5-15.5); WBC 14.6 k/uL (3.8-10.6)
--- NOTE | 2020-01-04 08:17 | XR ---
EXAMINATION TYPE: XR chest 1V portable DATE OF EXAM: 01/04/2020 Comparison: 01/03/2020 Clinical History: 59-year-old male Effusion Findings: Heart mildly enlarged. Normal variant azygos fissure. Diffuse interstitial density. Small left greate r than right pleural effusions with bibasilar opacity. Left basilar chest tube remains in place. No a ppreciable pneumothorax. Right-sided chest tube removed in the interval. Impression: 1. Interstitial densities persist. Correlate for CHF with pulmonary vascular congestion. 2. Small left greater than right pleural effusions with adjacent atelectasis and/or consolidation sim ilar to prior. 3. Right-sided chest tube removed. Left chest tube remains in place. No appreciable pneumothorax.
[2020-01-04 09:08] LABS: Eosinophils # (M) 0.15 k/uL (0-0.7); Lymphocytes # (M) 1.17 k/uL (1.0-4.8); Metamyelocytes # (M) 0.29 k/uL (0); Metamyelocytes % 2 %; Monocytes # (M) 0.88 k/uL (0-1.0); Myelocytes # (M) 0.44 k/uL (0); Myelocytes % 3 %; Neutrophils # (M) 11.83 k/uL (1.3-7.7); Neutrophils % (M) 81 %; Nucleated Red Blood Cells 0 /100 WBC (0-0); Total Cells Counted 200
[2020-01-04] MEDS: CEFEPIME 2 GM in SODIUM CHLORIDE 0.9% 100 ML IVPB SCH (09:10)
[2020-01-04] MEDS: METOPROLOL TARTRATE 50 MG TAB PO SCH ×3 (09:11→22:28)
[2020-01-04] MEDS: LOSARTAN-HCTZ 50-12.5 MG 1 EACH TAB PO SCH (09:11)
[2020-01-04] MEDS: methylPREDNISolone 4 MG TAB PO SCH (09:11)
[2020-01-04] MEDS: ENOXAPARIN 40 MG/0.4 ML SYRINGE SQ SCH (09:12)
[2020-01-04] MEDS: LEFLUNOMIDE 20 MG TAB PO SCH (09:12)
--- NOTE | 2020-01-04 09:42 | P.PN ---
Subjective Progress Note Date: 01/04/20 Principal diagnosis: Bilateral bibasilar hydropneumothorax with documented empyema on the left, status post left sided thoracentesis on 12/31/2019. Past medical history significant for strep pneumoniae on culture from bronchiolar lavage in 08/27/2019, rheumatoid arthritis with rheumatoid nodules in the lung currently treated with prednisone, Xeljanz, and Arava, history of hypertension, hypothyroidism, previous tobacco dependence, and family history of lung cancer. POD #3 bilateral chest tube placement. Patient was seen in follow-up today 01/04/2020 at his bedside on the cardiac stepdown unit. Currently he is sitting up to the bedside chair and is in no acute distress. He denies any complaints of pain or shortness of breath, oxygen saturations are currently 94% on room air and he is achieving 1500 mL on his incentive spirometry. Left pleural chest tube remains in place to low continuous wall suction -20 cm H2O. Air leak is present. Draining thin serosanguineous drainage with 30 mL output last 8 hours, and 120 mL output in the last 24 hours. The patient is anxious to be discharged home. He continues on Maxipime and vancomycin for antibiotic coverage which is managed by infectious disease. He remains afebrile and he is hemodynamically stable. Objective - Vital Signs Vital signs: Vital Signs Temp 97.9 F 01/04/20 03:46 Pulse 80 01/04/20 03:46 Resp 14 01/04/20 03:47 BP 110/72 01/04/20 03:46 Pulse Ox 94 L 01/04/20 03:46 Intake & Output 01/03/20 01/04/20 01/04/20 18:59 06:59 18:59 Intake Total 400 1500 Output Total 1240 1210 Balance -840 290 Weight 107.9 kg Intake: Intake, IV Titration 100 1100 Amount Cefepime 2 gm In Sodium 100 100 Chloride 0.9% 100 ml @ 200 mls/hr IVPB Q12HR [facility] Rx#:[id number] Vancomycin 1,750 mg In 1000 Sodium Chloride 0.9% 500 ml 500 ml @ 167 mls/hr IVPB Q8H [facility] Rx#: [id number] Oral 300 400 Output: Chest Tube Drainage 10 10 Chest Tube Left Anterior 10 10 Chest Urine 1230 1200 Other: Voiding Method Urinal Urinal # Voids 1 - Constitutional General appearance: Present: cooperative, no acute distress, obese - EENT Eyes: Present: PERRLA, normal appearance. Absent: scleral icterus ENT: Present: hearing grossly normal - Neck Details: Neck is supple, no lymphadenopathy. - Respiratory Details: Lung sounds with scattered with some expiratory wheezes throughout and diminished to his bilateral bases left greater than right. Respirations are symmetrical and nonlabored. Oxygen saturation is 94% on room air. Left pleural chest tube remains in place to low continuous wall suction -20 cm H2O. Air leak is present. Draining thin serosanguineous drainage with 30 mL output in the last 8 hours and 120 mL output in the last 24 hours. Achieving 1500 mL on his incentive spirometry. - Cardiovascular Details: Regular rhythm and rate. S1 and S2 present, negative for S3, gallop or murmur. No edema present. - Gastrointestinal Gastrointestinal Comment(s): Abdomen is soft, nontender and nondistended. Active bowel sounds present in all 4 abdominal quadrants. No guarding or rigidity. No organomegaly appreciated. - Genitourinary Genitourinary Comment(s): Voiding clear soraida urine. - Integumentary Integumentary Comment(s): Skin is warm and dry. No clubbing or cyanosis present. No rash or abnormal pigmentation is present. Dressing is clean and dry to his previous right chest tube insertion site. Band-Aid and placed to his left posterior chest from thoracentesis. Dressing is clean and dry to his left chest tube insertion site. - Neurologic Neurologic: Present: CNII-XII intact - Musculoskeletal Musculoskeletal: Present: gait normal, strength equal bilaterally - Psychiatric Psychiatric: Present: A&O x's 3, appropriate affect, intact judgment & insight - Allied health notes Allied health notes reviewed: nursing - Labs CBC & Chem 7: 01/04/20 06:52 01/04/20 06:52 Labs: Abnormal Lab Results - Last 24 Hours (Table) 01/03/20 01/04/20 01/04/20 Range/Units 10:37 06:52 06:52 WBC 14.6 H (3.8-10.6) k/uL Hgb 12.9 L (13.0-17.5) gm/dL MCHC 30.6 L (31.0-37.0) g/dL RDW 15.7 H (11.5-15.5) % Neutrophils # (Manual) 11.83 H (1.3-7.7) k/uL Metamyelocytes # (Man) 0.29 H (0) k/uL Myelocytes # (Manual) 0.44 H (0) k/uL Creatinine 0.62 L 0.65 L (0.66-1.25) mg/dL Microbiology - Last 24 Hours (Table) 12/30/19 18:55 Blood Culture - Preliminary Blood No Growth after 96 hours - Imaging and Cardiology Chest x-ray: report reviewed, image reviewed Assessment and Plan Assessment: 1. Loculated bilateral hydropneumothorax, left worst then right, status post left-sided thoracentesis, possible empyema, history of strep pneumoniae on bronchiolar lavage in August 2019, status post bilateral chest tube placement 2. Rheumatoid arthritis with rheumatoid nodules in the lung, currently treated with prednisone and Xeljanz 3. Hypertension 4. Hypothyroidism 5. Previous tobacco dependence 6. Family history of lung cancer Plan: 1. Keep left pleural chest tube in place, place left pleural chest tube to waterseal. Continue to monitor for airleak resolution. 2. Repeat chest x-ray in the morning 01/05/2020. 3. Continue IV antibiotics managed by infectious disease. 4. Encourage incentive spirometry use 10 times every hour while awake. 5. Increase activity, ambulate as tolerated. Out of bed for all meals. 6. Continue medical management of other comorbidities per primary care service. 7. Methylprednisolone management per pulmonary care service. 8. More recommendations to follow based on patient's clinical course. Time with Patient: Less than 30
--- NOTE | 2020-01-04 12:58 | P.PN ---
Subjective on-call hospitalist covering for Dr. Horowitz From the records This is a very pleasant 59-year-old patient of Dr. Morris. 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 This was mid foot fusion. Patient had a wound and was admitted in July 2018 to our hospital. Also did cellulitis of the right foot. March 2019. Patient also has known rheumatoid lung disease and pleural effusions. He had a bronchoscopy with lavage in August 2019. He states since June he did have a respiratory symptoms off and on. Including cough and congestion. No obvious fever and chills. In the interim he is recently see Dr. Gamino and given some antibiotics. Also be of this year he was seen by Dr. Dubois from cardiothoracic surgery and given a Z-Denzel and steroids. SLIGHT improvement. Patient was seen by Dr. Christianson yesterday and a computed tomography scan of the chest revealed loculated hydropneumothorax bilaterally. There are no pulmonary abnormalities on computed tomography scan. Patient had about 270 mL of left-sided thoracentesis done today. Possible empyema. Rheumatoid fluid cannot be ruled out. Patient's appetite has been okay. Bronchoscopy cultures in August of this year did reveal Streptococcus pneumoniae and Inessa albicans. Bronchoscopy-by Dr. Dutton. Today-right chest tube was removed today. Left chest tube to wall suction. Breathing better. Slight cough. Eating well. Up in a chair. Pain control.'' subjective 01/04/2020 patient admitted with bilateral empyema status post bilateral chest tube, the r ight chest tube was removed yesterday on 01/02, however the left chest tube still in place due to leaking air through the tube.patient also with the lateral pulmonary nodules secondary to rheumatoid lung. Patient is currently sitting in chair with no distress. No chest pain or dyspnea.vitals are stable. WBC is 14.6 K,BMP is unremarkable. pleural fluid culture is growing Streptococcus pneumoniae, is currently on cefepime. The vancomycin was stopped. Also he is on Medrol 4 mg daily by mouth. Review of systems CONSTITUTIONAL: No fever, no malaise, no fatigue. HEENT: No recent visual problems or hearing problems. Denied any sore throat. CARDIOVASCULAR: No orthopnea, PND, no palpitations, no syncope. PULMONARY: No shortness of breath, no cough, no hemoptysis. GASTROINTESTINAL: No diarrhea, no nausea, no vomiting, no abdominal pain. Normoactive bowel sounds. NEUROLOGICAL: No headaches, no weakness, no numbness. HEMATOLOGICAL: Denies any bleeding or petechiae. GENITOURINARY: Denies any burning micturition, frequency, or urgency. MUSCULOSKELETAL/RHEUMATOLOGICAL: Denies any joint pain, swelling, or any muscle pain. ENDOCRINE: Denies any polyuria or polydipsia. Active Medications Generic Name Dose Route Start Last Admin Trade Name Freq PRN Reason Stop Dose Admin Enoxaparin Sodium 40 mg 12/31/19 19:00 01/04/20 09:12 Lovenox SQ 40 mg DAILY [facility] Administration HCTZ/Losartan Potassium 1 each 12/31/19 09:00 01/04/20 09:11 Hyzaar 50-12.5 PO 1 each DAILY [facility] Administration Cefepime HCl 2 gm/ Sodium 100 mls @ 200 mls/hr 01/01/20 09:00 01/04/20 09:10 Chloride IVPB 200 mls/hr Q12HR [facility] Administration Lactated Ringer's 500 mls @ 20 mls/hr 01/02/20 17:00 01/03/20 11:39 Lactated Ringers IV Not Given .Q24H [facility] Vancomycin HCl 1,750 mg/ 500 mls @ 167 mls/hr 01/03/20 20:00 01/04/20 12:18 Sodium Chloride IVPB 167 mls/hr Q8H [facility] Administration Leflunomide 20 mg 12/31/19 09:00 01/04/20 09:12 Arava PO 20 mg DAILY [facility] Administration Levothyroxine Sodium 150 mcg 12/31/19 06:30 01/04/20 05:55 Synthroid PO 150 mcg DAILY@0630 [facility] Administration Methylprednisolone 4 mg 12/31/19 09:00 01/04/20 09:11 Medrol PO 4 mg DAILY [facility] Administration Metoprolol Tartrate 50 mg 12/30/19 22:00 01/04/20 09:11 Lopressor PO 50 mg TID [facility] Administration Miscellaneous Information 0 each 01/05/20 11:00 Vancomycin Trough Due MISCELLANE 01/05/20 11:01 DIRECTED ONE Naloxone HCl 0.2 mg 12/30/19 19:12 Narcan IV Q2M PRN Opioid Reversal Tofacitinib Citrate 11 mg 12/31/19 09:00 01/04/20 09:22 [Xeljanz Xr] 11 Mg PO Not Given DAILY [facility] Tramadol HCl 50 mg 01/01/20 21:14 01/01/20 21:43 Ultram PO 50 mg Q6H PRN Administration Pain Objective - Vital Signs Vital signs: Vital Signs Temp 97.9 F 01/04/20 12:00 Pulse 89 01/04/20 12:00 Resp 16 01/04/20 12:00 BP 105/70 01/04/20 12:00 Pulse Ox 97 01/04/20 12:00 Intake & Output 01/03/20 01/04/20 01/04/20 18:59 06:59 18:59 Intake Total 400 1500 600 Output Total 1240 1210 Balance -840 290 600 Weight 107.9 kg Intake: Intake, IV Titration 100 1100 600 Amount Cefepime 2 gm In Sodium 100 100 100 Chloride 0.9% 100 ml @ 200 mls/hr IVPB Q12HR [facility] Rx#:[id number] Vancomycin 1,750 mg In 1000 500 Sodium Chloride 0.9% 500 ml 500 ml @ 167 mls/hr IVPB Q8H [facility] Rx#: [id number] Oral 300 400 Output: Chest Tube Drainage 10 10 Chest Tube Left Anterior 10 10 Chest Urine 1230 1200 Other: Voiding Method Urinal Urinal Urinal # Voids 1 1 - Exam GENERAL: The patient is alert and oriented x3, not in any acute distress. Well developed, well nourished. HEENT: Pupils are round and equally reacting to light. EOMI. No scleral icterus. No conjunctival pallor. Normocephalic, atraumatic. No pharyngeal erythema. No thyromegaly. CARDIOVASCULAR: S1 and S2 present. No murmurs, rubs, or gallops. -PULMONARY: Chest is clear to auscultation, . Bilateral crepitation. This chest tube is in place ABDOMEN: Soft, nontender, nondistended, normoactive bowel sounds. No palpable organomegaly. MUSCULOSKELETAL: No joint swelling or deformity. EXTREMITIES: No cyanosis, clubbing, or pedal edema. NEUROLOGICAL: Gross neurological examination did not reveal any focal deficits. SKIN: No rashes. no petechiae. - Labs CBC & Chem 7: 06/15/20 06:52 01/04/20 06:52 Labs: Abnormal Lab Results - Last 24 Hours (Table) 01/04/20 01/04/20 Range/Units 06:52 06:52 WBC 14.6 H (3.8-10.6) k/uL Hgb 12.9 L (13.0-17.5) gm/dL MCHC 30.6 L (31.0-37.0) g/dL RDW 15.7 H (11.5-15.5) % Neutrophils # (Manual) 11.83 H (1.3-7.7) k/uL Metamyelocytes # (Man) 0.29 H (0) k/uL Myelocytes # (Manual) 0.44 H (0) k/uL Creatinine 0.65 L (0.66-1.25) mg/dL Microbiology - Last 24 Hours (Table) 12/31/19 10:58 Anaerobic Culture - Final Pleural Fluid 12/31/19 10:58 Gram Stain - Final Pleural Fluid Body Fluid Culture - Final Streptococcus pneumoniae 12/30/19 18:55 Blood Culture - Preliminary Blood No Growth after 96 hours Assessment and Plan Assessment: -Bilateral empyema with thoracentesis of 270 mL. Status post bilateral chest tubes were placed.R chest tube was removed -bilateral pulmonary nodules secondary to rheumatoid lung -Chronic rheumatoid arthritis -Hypothyroid -Essential hypertension -Obesity BMI 31.5 Plan: this is a pleasant 59 years old male who presents with bilateral empyema and hydropneumothorax secondary to bilateral lung nodules from rheumatoid lung. Continue with cefepime for Streptococcus pneumonia of the 30 fluids culture. Infectious disease and pulmonary team on the case. Cardiothoracic surgery R following the patient while on chest tube. Labs and medication were reviewed.. Continue same treatment. Continue with symptomatic treatment. Resume home medication. Monitor lytes and vitals. DVT and GI prophylaxis. Further recommendations of the clinical course of the patient DVT prophylaxis: Subcutaneous Lovenox GI Prophylaxis: Pepcid
--- NOTE | 2020-01-04 15:42 | PN ---
PROGRESS NOTE PULMONARY/CRITICAL CARE PROGRESS NOTE: DATE OF SERVICE: 01/04/2020 This is a 59-year-old gentleman with a history of bilateral hydro pneumothoraces. He had bilateral chest tubes placed by Dr. Dubois. He also had a left thoracentesis performed by Dr. Dougherty. The fluid appeared to be infected. So far microbiology is negative. The right chest tube has come out. The left chest tube is still in place. There is a small leak. The patient has a previous history of Streptococcus pneumoniae infection of the lung back in August 2019. On November 24, he was seen by Dr. Gamino in the office and treated with Zithromax and steroids. I saw him in the office and switched him to Levaquin and ordered a CT scan which revealed the abnormalities. The patient does have a history of rheumatoid arthritis and rheumatoid pulmonary nodules, hypertension, hypothyroidism, and previous tobacco use. PHYSICAL EXAMINATION: VITAL SIGNS: Current vital signs are reviewed temperature 97.7 heart rate 80, respiratory rate 15 blood pressure 107/72 mean 83, room air saturation 95%. Appears in no acute distress HEENT: Examination is grossly unremarkable. NECK: Supple full range of motion. No adenopathy. Neck veins are flat. CARDIOVASCULAR: Examination reveals regular rhythm and rate. S1, S2 normal. LUNGS: Reveal diffuse coarse bilateral rhonchi. The abdomen abnormal. Breath sounds are worse on the left than on the right. No crackles or wheezes. Left chest tube remains in place. ABDOMEN: Soft bowel sounds are heard. EXTREMITIES are intact. No cyanosis, clubbing, or edema. SKIN: Without rash. NEUROLOGIC: Examination is brief but nonfocal. LABS: Reviewed. White count 14.6, hemoglobin 12.9, hematocrit 42.2, platelet count 283,000. Electrolytes look normal. Pleural fluid is clearly negative today. Total protein of 1.5 g and LDH greater than 4500. Microbiology is now showing strep pneumoniae in the pleural fluid. Chest x-ray still showing small left greater than right pleural effusion. Current antibiotics include Maxipime and vancomycin. ASSESSMENT: 1. Strep pneumoniae, empyema with bilateral hydropneumothorax, status post thoracentesis on December 30 on the left and subsequent bilateral chest tube placement by Dr. Dubois. 2. Previous history of strep pneumoniae pneumonia in August 2019. 3. History of rheumatoid of pulmonary nodules in the lungs. 4. History of rheumatoid arthritis. 5. Essential hypertension. 6. Hypothyroidism. 7. Prior tobacco use. Plan date 01/04/2020 Currently, the microbiology is showing evidence of strep pneumoniae from the pleural space. It is sensitive to just about everything including vancomycin and cefepime. Additional recommendations and suggestions are forthcoming. We will continue to follow. ID is on the case. The right chest tube has come out. Left to chest tube still has a small leak. Hopefully that be able to come out tomorrow. The patient is anxious to get home. MMODL / IJN: [id number] / [id number]
[2020-01-04] MEDS: LACTATED RINGERS 500 ML IV SCH (15:45)
[2020-01-04] MEDS: FAMOTIDINE 20 MG/2 ML VIAL IV SCH (22:28)
--- NOTE | 2020-01-04 23:14 | PN ---
PROGRESS NOTE DATE OF SERVICE: 01/04/2020 REASON FOR FOLLOWUP: Left-sided empyema. INTERVAL HISTORY: The patient is currently afebrile. The patient is breathing comfortably. Chest pain is currently controlled. Minimal cough. No nausea, no vomiting. No abdominal pain or diarrhea. PHYSICAL EXAMINATION: Blood pressure 105/70 with a pulse of 89, temperature is 97.9. He is 97% on room air. General description is a middle-aged male up in the chair in no distress. RESPIRATORY SYSTEM: Unlabored breathing, decreased breath sounds at the bases. No wheeze. HEART: S1, S2. Regular rate and rhythm. ABDOMEN: Soft, no tenderness. LABS: Hemoglobin is 12.9, white count 14.6, creatinine 0.65. Pleural fluid cultures did show strep pneumo. DIAGNOSTIC IMPRESSION AND PLAN: Patient with left-sided empyema. Culture positive for Streptococcus pneumoniae, which is sensitive pathogen. Antibiotic will be adjusted to Rocephin 2 grams daily. The patient had a PICC line for outpatient IV antibiotic and monitor his clinical course closely. Continue supportive care. MMODL / IJN: [id number] /
[2020-01-05] MEDS: LEVOTHYROXINE 75 MCG TAB PO SCH (06:22)
[2020-01-05 06:47] LABS: Anisocytosis Slight; HGB 13.2 gm/dL (13.0-17.5); Hypochromasia Marked; MCH 26.7 pg (25.0-35.0); MCV 88.9 fL (80.0-100.0); Platelet Count 292 k/uL (150-450); RBC 4.95 m/uL (4.30-5.90); RDW 16.2 % (11.5-15.5); WBC 14.9 k/uL (3.8-10.6)
--- NOTE | 2020-01-05 07:34 | XR ---
EXAMINATION TYPE: XR chest 1V portable DATE OF EXAM: 01/05/2020 HISTORY: Shortness of breath. History of empyema COMPARISON: 01/04/2020 TECHNIQUE: Single view of the chest is submitted. FINDINGS: Left-sided chest tube is noted and unchanged in position. Pleural-parenchymal density left lung base is unchanged. Increased density right lung base laterally. The heart is stable. Hilar and mediastinal structures are within normal limits. Degenerative changes are seen of the dorsal spine. IMPRESSION: 1. Stable chest.
--- NOTE | 2020-01-05 08:02 | P.PN ---
Subjective Progress Note Date: 01/05/20 Principal diagnosis: Bilateral bibasilar hydropneumothorax with documented empyema on the left, status post left sided thoracentesis. Present medical history of strep pneumonia on bronchiolar lavage in August 2027, rheumatoid arthritis with rheumatoid nodules in the lung currently treated with prednisone, Xeljanz, and Arava, history of hypertension, hypothyroidism, previous tobacco dependence, and family history of lung cancer. POD #4 bilateral chest tube placement The patient is currently sitting up in the recliner on the cardiac stepdown unit in no acute distress. Denies any pain, shortness of breath. Left pleural chest tube placed to waterseal yesterday, minimal drainage in the last 24 hours. Remains afebrile. Culture growing strep pneumoniae, antibiotics changed to ceftriaxone per infectious disease. Continues with steroids, Xeljanz and Arava for his rheumatoid arthritis. Patient is anxious to go home, otherwise no new concerns. Objective - Vital Signs Vital signs: Vital Signs Temp 97.5 F L 01/05/20 04:00 Pulse 87 01/05/20 04:00 Resp 18 01/05/20 04:00 BP 114/80 01/05/20 04:00 Pulse Ox 95 01/05/20 04:00 Intake & Output 01/04/20 01/05/20 01/05/20 18:59 06:59 18:59 Intake Total 837 Output Total 40 425 Balance 797 -425 Weight 107 kg Intake: Intake, IV Titration 600 Amount Cefepime 2 gm In Sodium 100 Chloride 0.9% 100 ml @ 200 mls/hr IVPB Q12HR [facility] Rx#:[id number] Vancomycin 1,750 mg In 500 Sodium Chloride 0.9% 500 ml 500 ml @ 167 mls/hr IVPB Q8H [facility] Rx#: [id number] Oral 237 Output: Chest Tube Drainage 40 0 Chest Tube Left Anterior 40 0 Chest Urine 425 Other: Voiding Method Urinal Urinal # Voids 2 1 - Constitutional General appearance: Present: cooperative, no acute distress - Respiratory Details: Lungs sounds diminished bilaterally with faint expiratory wheezes heard posteriorly. Respirations even, nonlabored.currently on room air with oxygen saturation 95%. Able to achieve 1500 mL on his incentive spirometry. Strong cough. Left pleural chest tube present to waterseal with no drainage overnight, 40 mL of serous drainage in the last 24 hours, trace positional air leak present with a strong cough. - Cardiovascular Details: S1, S2 present. Regular rate and rhythm, sinus rhythm on telemetry with heart rate in the 80s. Palpable peripheral pulses bilaterally. No edema present. - Gastrointestinal Gastrointestinal Comment(s): Abdomen soft, nontender, nondistended. Active bowel sounds present 4 quadrant s. Tolerating diet. - Genitourinary Genitourinary Comment(s): Continues to void clear, yellow urine per urinal - Integumentary Integumentary Comment(s): Skin is warm and dry with evidence of good perfusion - Neurologic Neurologic: Present: CNII-XII intact - Musculoskeletal Musculoskeletal: Present: gait normal, strength equal bilaterally - Psychiatric Psychiatric: Present: A&O x's 3, appropriate affect, intact judgment & insight - Allied health notes Allied health notes reviewed: nursing - Labs CBC & Chem 7: 01/05/20 06:16 01/04/20 06:52 Labs: Abnormal Lab Results - Last 24 Hours (Table) 01/04/20 01/05/20 Range/Units 06:52 06:16 WBC 14.6 H 14.9 H (3.8-10.6) k/uL Hgb 12.9 L (13.0-17.5) gm/dL MCHC 30.6 L 30.0 L (31.0-37.0) g/dL RDW 15.7 H 16.2 H (11.5-15.5) % Neutrophils # (Manual) 11.83 H (1.3-7.7) k/uL Metamyelocytes # (Man) 0.29 H (0) k/uL Myelocytes # (Manual) 0.44 H (0) k/uL Microbiology - Last 24 Hours (Table) 12/30/19 18:55 Blood Culture - Preliminary Blood No Growth after 120 hours 12/31/19 10:58 Anaerobic Culture - Final Pleural Fluid 12/31/19 10:58 Gram Stain - Final Pleural Fluid Body Fluid Culture - Final Streptococcus pneumoniae - Imaging and Cardiology Chest x-ray: report reviewed, image reviewed Assessment and Plan Assessment: 1. Loculated bilateral hydropneumothorax, left wrist and right, status post left-sided thoracentesis, possible empyema, history of strep pneumoniae on bronchiolar lavage in August 2019, status post bilateral chest tube placement, culture positive for strep pneumoniae, pathology demonstrates acute inflammatory cells consistent with empyema 2. Rheumatoid arthritis with rheumatoid nodules in the lung, currently treated with prednisone and Xeljanz 3. Hypertension 4. Hypothyroidism 5. Previous tobacco dependence 6. Family history of lung cancer Plan: 1. Will discontinue left pleural chest tube. Repeat chest x-ray in 2 hours. If stable may discharge to home from cardiothoracic standpoint when okay with other services 2. Continue IV antibiotics per infectious disease 3. Encourage incentive spirometry use 10 times every hour while awake 4. Increase activity, ambulate as tolerated. 5. Continue medical management of other comorbidities per primary care service 6. More recommendations to follow Time with Patient: Greater than 30
[2020-01-05] MEDS: ENOXAPARIN 40 MG/0.4 ML SYRINGE SQ SCH (08:53)
[2020-01-05] MEDS: FAMOTIDINE 20 MG/2 ML VIAL IV SCH (08:53)
[2020-01-05] MEDS: LEFLUNOMIDE 20 MG TAB PO SCH (08:53)
[2020-01-05] MEDS: LOSARTAN-HCTZ 50-12.5 MG 1 EACH TAB PO SCH (08:53)
[2020-01-05] MEDS: METOPROLOL TARTRATE 50 MG TAB PO SCH ×2 (08:53→16:13)
[2020-01-05 09:37] LABS: Band Neutrophils % 2 %; Metamyelocytes # (M) 0.15 k/uL (0); Metamyelocytes % 1 %; Monocytes # (M) 1.34 k/uL (0-1.0); Myelocytes # (M) 0.45 k/uL (0); Myelocytes % 3 %; Neutrophils % (M) 82 %; Nucleated Red Blood Cells 0 /100 WBC (0-0); Promyelocytes # (M) 0.15 k/uL (0); Promyelocytes % 1 %; Total Cells Counted 200
[2020-01-05 09:38] LABS: Poikilocytosis (M) Present; Toxic Granulation Present
[2020-01-05] MEDS ORDERED: VANCOMYCIN TROUGH DUE 1 EACH MISC MISCELLANE ONE (11:00)
[2020-01-05] MEDS: methylPREDNISolone 4 MG TAB PO SCH (11:31)
--- NOTE | 2020-01-05 11:58 | P.PN ---
Subjective Progress Note Date: 01/05/20 Principal diagnosis: Dyspnea related to bilateral pleural effusions, and empyema This is a very pleasant 59-year-old gentleman who follows with Dr. Morris as his primary care provider. He has a history of hypertension, hypothyroidism, rheumatoid arthritis and is maintained on prednisone and Xeljanz. He has a history of rheumatoid lung disease with pleural effusions and previous Streptococcus pneumoniae found in a bronchoscopy wash and August 2019. Recently he had been having issues with increasing shortness of breath cough, fatigue and congestion with greenish productive sputum. He had been seen by Dr. Gamino on 12/17/2019 and prescribed a Z-Denzel and treated with steroids. He improved briefly but then symptoms had recurred and he was seen yesterday by Dr. Dutton with ongoing complaints of greenish yellow phlegm with chest congestion. He had an abnormal chest x-ray and was sent for computed tomography scan of the chest which revealed development of loculated hydropneumothorax bilaterally at the lung bases. There was the multiple bilateral pulmonary nodules and the larger prior cavitary lesions were resolved. However 1 irregular density on the right posterior lateral area has enlarged. He was informed to report to the emergency room and subsequently admitted. He is seen today in consultation on the selective care unit. He is currently sitting up in a chair at the bedside. Awake and alert in no acute distress. Maintaining O2 saturations in the 90s on room air. He's been afebrile. Slightly tachycardic. White count 13.8. Hemoglobin 12.8. Sodium 138. Potassium 3.7. Creatinine 0.97. AST 29. ALT 71. Troponin negative. ProBNP 230. Ultrasound of the chest reveals a small right pleural effusion measuring 1.8 cm. There is a left pleural effusion measuring 4.9 cm[address] Dougherty did perform a left-sided thoracentesis today and the return appeared to resemble empyema versus rheumatoid fluid. Dyspneic, yellowish-green fluid. Approximately 270 mL removed. Cultures, fluid analysis and pH were sent. The patient is seen today 01/01/2020 in follow-up on the selective care unit. He is currently sitting up in a chair at the bedside. Awake and alert in no acute distress. He is maintaining good O2 saturations in the 90s on room air. He remains afebrile. Hemodynamically stable. Pleural fluid cultures are pending. Preliminary results reveal many gram-positive cocci and few gram- negative bacilli. Blood cultures reveal no growth to date. Creatinine 0.71. He remains on cefepime and vancomycin. ID is on the case. Today's chest x-ray reveals well-defined air-fluid levels at the lung bases. Suspect hydropneumothoraces. Superior or midlung pneumothorax components are not identified. Diffuse interstitial opacities persist. The patient is seen today 01/02/2020 in follow-up on the selective care unit. He did undergo bilateral chest tube placements yesterday. He is currently sitting up in a chair at the bedside. Awake and alert in no acute distress. Maintaining good O2 saturations in the mid 90s on room air. He's afebrile. Hemodynamically stable. Chest x-ray shows bibasilar lateral airspace disease with small effusions. Preliminary pleural fluid cultures reveal many gram-positive cocci, few gram-negative bacilli. White count 15.2. Hemoglobin 12.6. Sodium 136. Potassium 4.3. Creatinine 0.63. He is continued on cefepime and vancomycin. He is working well with the incentive spirometer. Lovenox for DVT prophylaxis. The patient is seen today 01/03/2020 in follow-up on the selective care unit. He is currently awake and alert in no acute distress. He's been up in the chair. He's been up ambulating in the hallway with assistance. No worsening shortness of breath, cough or congestion. Working well with the incentive spirometer. Right sided chest tube was removed this morning. Left chest tube remains in place. Chest x-ray continues to show basilar airspace disease left greater than right. Preliminary pleural fluid cultures reveal many gram- positive cocci, few gram-negative bacilli. Final ID still pending. Creatinine 0.62. He remains on vancomycin and cefepime. Lovenox for DVT prophylaxis. On 01/05/2020 patient seen in follow-up on selective care unit, he is calm and comfortable, is sitting up on the couch by the window, breathing is comfortable, room air pulse ox is 96%, his been afebrile since admission. His left chest tube has put out no output in the last 24 hours, and was discontinued. Today's chest x-ray shows pleural parenchymal density at the left lung base, and increased density at the right lung base overall stable chest. Patient continues on antibiotics, currently on ceftriaxone per ID service recommendations, pleural fluid cultures are positive for Streptococcus pneumonia. Today's labs have been noted showing white blood cell count of 14.9, hemoglobin at 13.2. No acute events overnight. Patient is awaiting placement of PICC line catheter and he will go home on IV Rocephin 2 g daily Objective - Vital Signs Vital signs: Vital Signs Temp 97.5 F L 01/05/20 11:03 Pulse 82 01/05/20 11:03 Resp 18 01/05/20 11:03 BP 88/56 01/05/20 11:03 Pulse Ox 96 01/05/20 11:03 Intake & Output 01/04/20 01/05/20 01/05/20 18:59 06:59 18:59 Intake Total 837 240 Output Total 40 425 Balance 797 -425 240 Weight 107 kg Intake: Intake, IV Titration 600 Amount Cefepime 2 gm In Sodium 100 Chloride 0.9% 100 ml @ 200 mls/hr IVPB Q12HR [facility] Rx#:[id number] Vancomycin 1,750 mg In 500 Sodium Chloride 0.9% 500 ml 500 ml @ 167 mls/hr IVPB Q8H [facility] Rx#: [id number] Oral 237 240 Output: Chest Tube Drainage 40 0 Chest Tube Left Anterior 40 0 Chest Urine 425 Other: Voiding Method Urinal Urinal Toilet Urinal # Voids 2 1 - Exam GENERAL EXAM: Alert, very pleasant, 59-year-old white male on room air the pulse ox of 95-96% comfortable in no apparent distress. HEAD: Normocephalic/atraumatic. EYES: Normal reaction of pupils, equal size. Conjunctiva pink, sclera white. NOSE: Clear with pink turbinates. THROAT: No erythema or exudates. NECK: No masses, no JVD, no thyroid enlargement, no adenopathy. CHEST: No chest wall deformity. Symmetrical expansion. Right and left anterior chest tube sites are clean dry and intact LUNGS: Equal air entry with no crackles, wheeze, rhonchi or dullness. CVS: Regular rate and rhythm, normal S1 and S2, no gallops, no murmurs, no rubs ABDOMEN: Soft, nontender. No hepatosplenomegaly, normal bowel sounds, no guarding or rigidity. EXTREMITIES: No clubbing, no edema, no cyanosis, 2+ pulses and upper and lower extremities. MUSCULOSKELETAL: Muscle strength and tone normal. SPINE: No scoliosis or deformity SKIN: No rashes CENTRAL NERVOUS SYSTEM: Alert and oriented -3. No focal deficits, tone is normal in all 4 extremities. PSYCHIATRIC: Alert and oriented -3. Appropriate affect. Intact judgment and insight. - Labs CBC & Chem 7: 01/05/20 06:16 01/04/20 06:52 Labs: Abnormal Lab Results - Last 24 Hours (Table) 01/05/20 Range/Units 06:16 WBC 14.9 H (3.8-10.6) k/uL MCHC 30.0 L (31.0-37.0) g/dL RDW 16.2 H (11.5-15.5) % Neutrophils # (Manual) 12.50 H (1.3-7.7) k/uL Lymphocytes # (Manual) 0.60 L (1.0-4.8) k/uL Monocytes # (Manual) 1.34 H (0-1.0) k/uL Metamyelocytes # (Man) 0.15 H (0) k/uL Myelocytes # (Manual) 0.45 H (0) k/uL Promyelocytes # (Man) 0.15 H (0) k/uL Microbiology - Last 24 Hours (Table) 12/30/19 18:55 Blood Culture - Preliminary Blood No Growth after 120 hours 12/31/19 10:58 Anaerobic Culture - Final Pleural Fluid 12/31/19 10:58 Gram Stain - Final Pleural Fluid Body Fluid Culture - Final Streptococcus pneumoniae Assessment and Plan Plan: Assessment: 1 Dyspnea, cough congestion secondary to loculated hydropneumothorax bilaterally at the lung bases. Left greater than right. Status post thoracentesis on 12/31/2019 with fluid resembling empyema, possible rheumatoid lung. Status post bilateral chest tube placements on 01/01/2020. Pleural fluid cultures are revealing Streptococcus pneumonia. Currently on Rocephin 2 History of Streptococcus pneumoniae a on bronchial wash in August 2019 3 Multiple bilateral pulmonary nodules including one irregular density along the right posterior lateral that has enlarged over time, rheumatoid lung 4 Rheumatoid arthritis maintained on Xeljanz and prednisone in the outpatient setting 5 Hypertension 6 Hypothyroidism 7 Former smoker Plan: Patient is doing well, his left-sided chest tube has been removed, today's chest x-ray has been reviewed showing stable small left greater than right pleural effusion. Final pleural fluid culture identified strep pneumonia, patient is currently on Rocephin 2 g daily, patient is awaiting PICC line placement to go home on IV antibiotics. No fever or chills, he is working on incentive spirometer, he is tolerating ambulation. No acute events overnight, she will need follow-up in the office with Dr. Dutton next week. Stable for discharge home from pulmonary perspective I performed a history & physical examination of the patient and discussed their management with my nurse practitioner, Марина Thompson. I reviewed the nurse practitioner's note and agree with the documented findings and plan of care. Lung sounds are positive for diminished breath sounds at the bases The findings and the impression was discussed with the patient. I attest to the documentation by the nurse practitioner. Time with Patient: Less than 30
[2020-01-05] MEDS ORDERED: LIDOCAINE 1% INJ 10MG/ML (20 ML MDV) SQ ONE (14:33)
--- NOTE | 2020-01-05 14:52 | IR ---
EXAMINATION TYPE: IR cvc insert >=5 years DATE OF EXAM: 01/05/2020 COMPARISON: NONE CLINICAL HISTORY: Infection Needs long-term intravenous access for antibiotics. PROCEDURE: Hand hygiene obtained with soap and water and alcohol-based hand rub. After informed consent, the skin overlying the left basilic vein was localized with ultrasound and no felisha to be compressible and patent. An ultrasound image was obtained and submitted on the patient's c rosales. The overlying skin was prepped and draped and Lidocaine was used for local anesthesia. A skin sabina was made with a scalpel. Access was gained to the vein under ultrasound guidance with a 21 gau ge needle and a 0.018 inch wire was advanced. Access site was dilated with Peel-Away sheath and cath eter tailored to the appropriate length and advanced such that the distal tip is at the cavoatrial ju nction. Spot image was obtained verifying placement. Catheter was fixed to the skin and a sterile d ressing was placed following hemostasis. Catheter was aspirated and flushed with saline. Patient wa s discharged in stable condition without complication. Maximal barrier technique is utilized. Ultras ound image is documented on the chart. Ultrasound used with sterile technique. Fluoro time and fluoroscopic images submitted to document procedure: 63 intraoperative images, 0.4 mi nutes fluoroscopy time IMPRESSION: STATUS POST ULTRASOUND AND FLUOROSCOPIC GUIDED PICC LINE PLACEMENT, READY FOR USE. THIS PROCEDURE WAS PERFORMED BY THE UNDERSIGNED.
[2020-01-05 15:21] VITALS: BP 102/68; PULSE 98; RESP 14; TEMP 97
--- NOTE | 2020-01-05 15:52 | PN ---
PROGRESS NOTE DATE OF SERVICE: 01/05/2020 REASON FOR FOLLOWUP: Empyema. INTERVAL HISTORY: The patient is currently afebrile. The patient is breathing more comfortably. The chest tube has been discontinued. Denies significant cough or sputum production. No nausea. No vomiting. No abdominal pain or diarrhea. PHYSICAL EXAMINATION: Blood pressure 112/78 with a pulse of 82, temperature 97.5. He is 96% on room air. General description is a middle-aged male up in the chair in no distress. RESPIRATORY SYSTEM: Unlabored breathing with decreased breath sounds at the base. No wheeze. HEART: S1, S2. Regular rate and rhythm. ABDOMEN: Soft. No tenderness. LABS: Hemoglobin 13.2, white count 14.9, creatinine 0.65. Vancomycin trough is low. Blood culture negative. DIAGNOSTIC IMPRESSION AND PLAN: Patient with Streptococcus pneumoniae left-sided empyema, status post chest tube which was subsequently discontinued, as now stable. The patient is covered with Rocephin 2 grams daily; to continue for at least 4 weeks and close outpatient followup. Continue with supportive care. MMODL / IJN: [id number] /
[2020-01-05] MEDS: LACTATED RINGERS 500 ML IV SCH (16:39)
[2020-01-05 16:54] LABS: INR 0.9 (<1.2); Prothrombin Time 9.8 sec (9.0-12.0)
--- NOTE | 2020-01-05 22:46 | P.DS ---
Providers Date of admission: 01/01/20 08:56 Attending physician: Jean Claude Horowitz Consults: 12/30/19 19:13 Consult Physician Routine Consulting Provider: Brian Dutton Consult Reason/Comments: hydropneumothorax Do you want consulting provider notified?: Yes 12/31/19 11:30 Consult Physician Routine Consulting Provider: Oswaldo Dubois Consult Reason/Comments: bilateral empyema, S/P left thoracentesis Do you want consulting provider notified?: Yes 12/31/19 11:45 Consult Physician Routine Consulting Provider: Russ Blanton Consult Reason/Comments: empyema Do you want consulting provider notified?: Yes Primary care physician: Mohsen [facility] Hospital Course: Diagnoses: -Bilateral empyema with thoracentesis of 270 mL. Status post bilateral chest tubes were placed.R chest tube was removed -bilateral pulmonary nodules secondary to rheumatoid lung -Chronic rheumatoid arthritis -Hypothyroid -Essential hypertension -Obesity BMI 31.5 Hospital course: This is a very pleasant 59-year-old patient of Dr. Morris. Follows with environmental engineering professor Dr. Emma Lowe. Patient with past medical history of rheumatoid arthritis, hypertension, hypothyroidism. Presents with respiratory symptoms like cough and chest congestion, computed tomography scan of the chest done by Dr. Khoury his shank stitcher showing loculated hydropneumothorax bilaterally. Thoracocentesis was suspicious for empyema. Bilateral chest tubes were placed, registerable came out spontaneously and later on the left side was taken off. Patient is followed closely by shank stitcher and cardiothoracic surgeon while in-house. ID team also evaluated the patient and he was switched to cefepime and IV vancomycin went away and the culture came back positive for Streptococcus pneumoniae he was switched to IV ceftriaxone. Eventually patient showed interval improvement and he was eager to go home or the last 2-3 days, he denies chest pain or dyspnea. Only minimal cough. No abdominal pain. No nausea vomiting. No change in urine or bowel habits. No fever. Patient was cleared for discharge by ID team, shank stitcher and cardiothoracic surgeon. Patient will be discharged on antibiotics as per ID team with ceftriaxone intravenously, PICC line was placed for the patient and atelectasis the procedure well. Patient told me he is able to infuse the IV medicine by himself as he has done before when he had foot infection, also patient will be discharged with home health care. Problems and management plan were discussed with the patient and he verbalized understanding and acceptance Patient was found stable and can be discharged home however he needs follow-up as an outpatient. Patient was instructed to follow up with PCP Dr. Morris within one week and patient agrees. Also patient was instructed to follow up wi th his shank stitcher Dr. Dutton in 1-2 weeks and his environmental engineering professor Dr. Carter in 1-2 weeks and he agrees. I reviewed the appointments Dr. Dutton and Dr. Blanton with the patient and he agrees to quit them and the timing and states he will follow-up Patient did not need of prescription Gen: patient is a AAOx3, no distress CVS: S1-S2, RRR, no murmur Lungs: B/L CTA, no wheezing Abdomen: soft, no distention, no tenderness, positive bowel sounds Extremity: no leg edema or induration. PICC line in a Place Time spent more than 35 minutes Patient Condition at Discharge: Stable Plan - Discharge Summary Discharge Rx Participant: No New Discharge Prescriptions: New cefTRIAXone [Rocephin] 2,000 mg IVP Q24HR #28 vial Famotidine [Pepcid] 20 mg PO BID #60 tablet Continue Levothyroxine Sodium [Synthroid] 150 mcg PO DAILY methylPREDNISolone [Medrol] 4 mg PO DAILY Leflunomide [Arava] 20 mg PO DAILY Tofacitinib Citrate [Xeljanz Xr] 11 mg PO DAILY Albuterol Inhaler [Ventolin Hfa Inhaler] 1 puff INHALATION RT-Q4H PRN PRN Reason: Shortness Of Breath Losartan-Hctz 50-12.5 mg [Hyzaar 50-12.5] 1 tab PO DAILY Metoprolol Tartrate [Lopressor] 50 mg PO TID Discontinued Ibuprofen [Motrin] 800 mg PO TID PRN PRN Reason: Pain Discharge Medication List Levothyroxine Sodium [Synthroid] 150 mcg PO DAILY 10/17/16 [History] methylPREDNISolone [Medrol] 4 mg PO DAILY 04/18/19 [History] Leflunomide [Arava] 20 mg PO DAILY 08/26/19 [History] Tofacitinib Citrate [Xeljanz Xr] 11 mg PO DAILY 08/26/19 [History] Albuterol Inhaler [Ventolin Hfa Inhaler] 1 puff INHALATION RT-Q4H PRN 12/30/19 [History] Losartan-Hctz 50-12.5 mg [Hyzaar 50-12.5] 1 tab PO DAILY 12/30/19 [History] Metoprolol Tartrate [Lopressor] 50 mg PO TID 12/30/19 [History] Famotidine [Pepcid] 20 mg PO BID #60 tablet 01/05/20 [Rx] cefTRIAXone [Rocephin] 2,000 mg IVP Q24HR #28 vial 01/05/20 [Rx] Follow up Appointment(s)/Referral(s): [facility], [NON-STAFF] - Mohsen Morris DO [Primary Care Provider] - 1-2 days (office will call for follow-up appt. ) Brian Dutton DO [Doctor of Osteopathic Medicine] - 01/15/20 9:45 am (Follow-up on SaturdayJanuary 14. ) [facility] [NON-STAFF] - Russ Blanton MD [STAFF PHYSICIAN] - 01/12/20 10:00 am (Follow-up on SaturdayJanuary 11. ) Emma Suero DO [REFERRING] - 2 Weeks (Your environmental engineering professor) Ambulatory/Diagnostic Orders: Basic Metabolic Panel [LAB.AMB] Location: None Selected C Reactive Protein [LAB.AMB] Location: None Selected Complete Blood Count w/diff [LAB.AMB] Location: None Selected Erythrocyte Sedimentation Rate [LAB.AMB] Location: None Selected Activity/Diet/Wound Care/Special Instructions: DISCHARGE INSTRUCTIONS: 1. No driving for 2 weeks, or until physician gives their ok. 2. No lifting, pushing, or pulling more than 10 pounds for 2 weeks. The physician will advise of any restriction changes. 3. Continue pain control per as needed orders. Alternate acetaminophen (Tylenol) and ibuprofen (Motrin/Advil) for pain. 4. Continue with incentive spirometry and splinting until otherwise directed by the physician. 5. Leave chest tube dressing for 48 hours. After that, remove all dressings and shower daily. 6. Routine incision care. No powders, lotions, ointments on incisions. 7. Please call surgeon/SUPERINTENDENT SALES for temp greater than 101 F or purulent drainage from incisions. 8. Smoking cessation counseling and program information provided. For any surgical questions or concerns please call Kaela SUPERINTENDENT SALES at [phone] ordered Derrick [employer]PERINTENDENT SALES at [phone] Discharge Disposition: HOME WITH HOME HEALTH SERVICES
== END 2020-01-05 17:41 | disposition home health service (06) | DRG 178 ==
LOC: EC 16:46 → 3SCARD 20:02 → OBSVTOIN 01-01 08:56
PROVIDERS: ADMIT Hospitalist; ATTEND Hospitalist
PROC: 0W9930Z Drainage of Right Pleural Cavity with Drainage Device, Percutaneous Approach (ICD-10-PCS; 2019-12-31)
PROC: 0W9900Z Drainage of Right Pleural Cavity with Drainage Device, Open Approach (ICD-10-PCS; principal; 2020-01-01 12:55)
PROC: 0W9B00Z Drainage of Left Pleural Cavity with Drainage Device, Open Approach (ICD-10-PCS; principal; 2020-01-01 12:55)
PROC: 02HV33Z Insertion of Infusion Device into Superior Vena Cava, Percutaneous Approach (ICD-10-PCS; 2020-01-05)
DX: J86.9 Pyothorax without fistula (principal); J94.8 Other specified pleural conditions; J98.11 Atelectasis; M05.10 Rheumatoid lung disease with rheumatoid arthritis of unspecified site; I11.9 Hypertensive heart disease without heart failure; B95.3 Streptococcus pneumoniae as the cause of diseases classified elsewhere; R09.02 Hypoxemia; Z20.828 Contact with and (suspected) exposure to other viral communicable diseases; E03.9 Hypothyroidism, unspecified; E66.9 Obesity, unspecified; Z68.31 Body mass index [BMI] 31.0-31.9, adult; Z79.890 Hormone replacement therapy; Z79.52 Long term (current) use of systemic steroids; Z79.899 Other long term (current) drug therapy; Z86.19 Personal history of other infectious and parasitic diseases; Z87.01 Personal history of pneumonia (recurrent); Z87.442 Personal history of urinary calculi; Z90.89 Acquired absence of other organs; Z87.891 Personal history of nicotine dependence; Z98.1 Arthrodesis status; Z98.890 Other specified postprocedural states; Z80.1 Family history of malignant neoplasm of trachea, bronchus and lung
CPT/HCPCS: 36415; 36573; 71045; 71046; 71260; 76604; 76942; 80048; 80053; 80202; 82565; 82945; 83605; 83615; 83880; 84145; 84157; 84484; 85025; 85610; 85730; 87040; 87070; 87075; 87077; 87102; 87116; 87186; 87205; 87206; 87252; 87496; 87498; 87502; 87529; 87634; 87798; 88108; 88305; 89050; 93005; 96361; 96365; 99285

== ENCOUNTER → 2019-12-30 | Outpatient (CLI) | payer BC ==
--- NOTE | 2019-12-30 14:54 | CT ---
EXAMINATION TYPE: CT chest w con DATE OF EXAM: 12/30/2019 COMPARISON: 03/25/2019 HISTORY: fluid in lungs, cough, abnormal cxr at office CT DLP: 558.3 mGycm, Automated exposure control for dose reduction was used. CONTRAST: Performed injected with 100 mL of Isovue 300. TECHNIQUE: Axial images were obtained at 5 mm thick sections. Reconstructed images are reviewed on SPHARES computer in the coronal plane. FINDINGS: Portion of the thyroid visualized is normal. No suspicious lung nodules or focal infiltrates are present. There is an azygos fissure, normal varia nt. There is a 0.4 cm peripheral nodule in the right apex. Series 4 image 16. This was present previously . There is an irregular 0.4 cm density anterior left upper lobe. Series 4 image 17. There is a 0.8 cm nodule within the anterior left upper lung field. Series 4 image 24. This is slight ly smaller than comparison. There is an irregular pleural-based density measuring 2.1 x 1.1 cm posterior lateral right midlung. S eries 4 image 33. This has enlarged from comparison. Additional nodules previously identified are not as apparent. Cavitary lesion to have diminished in s ize over the interval. Posterior pleural thickening and atelectasis is present. Loculated pneumothorax is present posteriorl y with hydropneumothorax within these areas. These aren't interval finding from comparison. No enlarged mediastinal or hilar adenopathy is evident. The ascending aorta diameter at the level o f the main pulmonary artery is 3.9 cm. The main pulmonary artery diameter at the bifurcation is 3.[address] sections are obtained through the upper abdomen. No suspicious acute changes are evident w ithin the abdomen. Report was called and case discussed with Dr. Dutton by telephone 1445 hours 12/30/[address] Hinton. As requested by Dr. Dutton, patient was instructed to follow-up with Dr. Dutton at his scheduled appoi ntment the next day. IMPRESSIONS: 1. There appears to be interval development of a loculated hydropneumothorax bilaterally at the lung bases. This has a depth of approximately 3.5 cm on the right and 4.8 cm on the left. 2. Multiple bilateral pulmonary nodules. Larger prior cavitary lesions are smaller or resolved. 3. One irregular density along the right posterior lateral has enlarged over the interval.
== END | disposition home or self-care (01) ==
LOC: RADCTMAIN 13:41
PROVIDERS: ATTEND Internal Medicine Critical Care Medicine
DX: R91.8 Other nonspecific abnormal finding of lung field (principal); J98.4 Other disorders of lung
CPT/HCPCS: 71260; Q9967

== ENCOUNTER → 2020-01-27 | Outpatient (CLI) | payer BC ==
--- NOTE | 2020-01-27 08:40 | XR ---
EXAMINATION TYPE: XR chest 2V DATE OF EXAM: 01/27/2020 COMPARISON: Prior chest x-ray 01/05/2020, 01/15/2020 HISTORY: Pneumothorax TECHNIQUE: Frontal and lateral views of the chest are obtained. FINDINGS: The loculated hydropneumothoraces at the lung bases show a similar appearance. Left-sided PICC line is present in the distal tip is overlying the superior vena cava. Biapical pleural thickeni ng is present, there is an azygos lobe present. Heart remains enlarged. Aorta is dense. IMPRESSION: No significant interval change. Basilar loculated hydropneumothoraces persist.
== END | disposition home or self-care (01) ==
LOC: RADXRMAIN 07:37
PROVIDERS: ATTEND Internal Medicine Infectious Disease
DX: J86.9 Pyothorax without fistula (principal); J30.81 Allergic rhinitis due to animal (cat) (dog) hair and dander
CPT/HCPCS: 71046

== ENCOUNTER 2020-05-18 13:07 | Day surgery (SDC) | payer BC ==
[2020-05-17 11:50] VITALS: BMI 33.0
[~2020-05-18 13:07] MED LIST changes: -ATROPINE SULFATE 0.4 MG/ML 1 ML VIAL IM ONE; -LIDOCAINE VISCOUS 300 MG/15 ML CUP MUCOUS MEM ONE
[2020-05-18 13:45] VITALS: RESP 18; TEMP 98.4
[2020-05-18 13:54] LABS: Glucose,Whole Blood 95 mg/dL (75-99)
[2020-05-18] MEDS ORDERED: LIDOCAINE 1% (10MG/ML) FOR IV START INTRADERMA ONE (14:00)
[2020-05-18] MEDS ORDERED: LACTATED RINGERS 1,000 ML IV ONE (14:00)
[2020-05-18] MEDS: LIDOCAINE VISCOUS 300 MG/15 ML CUP MUCOUS MEM ONE ×2 (14:03→14:10)
[2020-05-18] MEDS: ATROPINE SULFATE 0.4 MG/ML 1 ML VIAL IM ONE ×2 (14:03→14:08)
[2020-05-18] MEDS ORDERED: GLYCOPYRROLATE 0.2 MG/ML 2 ML VIAL ONE (14:28)
[2020-05-18] MEDS ORDERED: KETAMINE 10 MG/ML 20 ML VIAL ONE (14:28)
[2020-05-18] MEDS ORDERED: LIDOCAINE 1% INJ 10MG/ML (20 ML MDV) ONE (14:28)
[2020-05-18] MEDS ORDERED: fentaNYL (PF) 50 MCG/ML 2 ML AMP ONE (14:28)
[2020-05-18] MEDS ORDERED: MIDAZOLAM 2 MG/2 ML VIAL ONE (14:28)
[2020-05-18] MEDS ORDERED: PROPOFOL 10 MG/ML 20 ML VIAL IV ONE (14:28)
[2020-05-18] MEDS ORDERED: LIDOCAINE 2% INJ 20 MG/ML INTRATRACH ONE (14:38)
[2020-05-18 14:59] VITALS: BP 110/77; PULSE 119
[2020-05-18 18:34] LABS: Appearance,BF Clear; Nucleated Cells, Body Fluid 115 /uL; RBC, Body Fluid 25 /uL
[2020-05-18 18:36] LABS: Mononuclear WBC,Body Fluid 33 %; Polynuclear WBC,Body Fluid 66 %; Total Cells Counted,Body Fluid 100
--- NOTE | 2020-05-18 20:11 | OP ---
OPERATIVE REPORT PULMONARY/CRITICAL CARE PROCEDURE NOTE: PROCEDURE: Bronchoscopy, airway examination, therapeutic lavage, BAL, right middle lobe. PREOPERATIVE DIAGNOSIS: Rheumatoid lung, retained secretions. POSTOPERATIVE DIAGNOSIS: Rheumatoid lung, retained secretions. ANESTHESIA PROVIDED: General anesthesia. The patient's procedure took place in room #1. There was informed consent and universal timeout. CHURN DRILLER: Dr. Dutton. PROCEDURE DESCRIPTION: After the patient was adequately sedated and being fully monitored, the bronchoscope was inserted through the right nostril. It passed through the right nasopharynx into the oropharynx. The hypopharynx was identified and topicalized. The hypopharyngeal structures, including anterior commissure, true cords, false cords, arytenoids, piriform sinuses, right and left valleculae and epiglottis, all appeared relatively normal. After topicalization, the bronchoscope was pushed through the glottic opening into the trachea. There were thick secretions noted throughout the trachea. They were suctioned with some difficulty. The tracheal rianna was sharp. The right and left mainstems were normal, but there were thick secretions noted in both the right and left mainstems. The right and left mainstems were topicalized. The right upper lobe and its 3 segments, the right middle lobe and its 2 segments, the right lower lobe and its 5 segments, left upper lobe proper and its 2 segments, lingula and its 2 segments and left lower lobe and its 4 segments all had similar findings of diffuse airway erythema and hyperemia. There were thick secretions noted throughout. There was mucosal friability. There was vascular engorgement. There was no dominant mass or tumor. The secretions were suctioned with some difficulty with saline lavage. There was thicker and more significant secretions noted on the left side than on the right side. After all the secretions were suctioned, the bronchoscope was wedged into the right middle lobe and BAL took place. The patient tolerated the procedure well. Thirty milliliters was recovered for the laboratory. There was no immediate complication. Again, the patient tolerated the procedure very well. The bronchoscope was withdrawn and the patient will be recovered. MMODL / IJN: [id number] /
== END 2020-05-18 15:10 | disposition home or self-care (01) ==
LOC: ORWHC2ENDO 13:07
PROVIDERS: ATTEND Internal Medicine Critical Care Medicine
DX: M05.10 Rheumatoid lung disease with rheumatoid arthritis of unspecified site (principal); R91.8 Other nonspecific abnormal finding of lung field; E03.9 Hypothyroidism, unspecified; I11.0 Hypertensive heart disease with heart failure; I50.9 Heart failure, unspecified; Z79.1 Long term (current) use of non-steroidal anti-inflammatories (NSAID); Z79.899 Other long term (current) drug therapy; Z79.890 Hormone replacement therapy; Z87.09 Personal history of other diseases of the respiratory system; Z87.01 Personal history of pneumonia (recurrent); Z80.9 Family history of malignant neoplasm, unspecified; Z87.891 Personal history of nicotine dependence; Z98.890 Other specified postprocedural states; Z90.89 Acquired absence of other organs
CPT/HCPCS: 31624; 88108; 88305; 89050; 87252; 87070; 87205; 87075; 87116; 87206; J2001 ×2; J2250; J0461; J3010; J2704; 87496; 87498; 87502; 87529; 87634; 87798

== ENCOUNTER 2020-07-13 10:31 | Inpatient (IN) | payer BC ==
[2020-07-13] MEDS ORDERED: SODIUM CHLORIDE 0.9% 500 ML 500 ML IV STA (10:56)
--- NOTE | 2020-07-13 11:19 | ED ---
General Adult HPI - General Chief complaint: Shortness of Breath Stated complaint: weakness Time Seen by Provider: 07/13/20 10:40 Source: patient, family, RN notes reviewed Mode of arrival: ambulatory Limitations: no limitations - History of Present Illness Initial comments: This a 60-year-old male presents emergency Department chief complaint of body ac hes, fatigue, generalized weakness not feeling well. Patient states that she had an echocardiogram on Saturday states he left office and felt very sick, states that he basically been in bed ever since. He states that he's been on multiple rounds of antibiotics, steroids and had 3 bronchoscopies with washing for recurrent pneumonia. Patient states he ended his antibiotics on Saturday when symptoms started. He reports no definite fever. He states he's had no sick contacts. He denies any GI symptoms including nausea vomiting diarrhea constipation no chest pain. - Related Data Home Medications Medication Instructions Recorded Confirmed Levothyroxine Sodium [Synthroid] 150 mcg PO DAILY 10/17/16 07/13/20 Albuterol Inhaler [Ventolin Hfa 2 puff INHALATION RT-QID PRN 12/30/19 07/13/20 Inhaler] Losartan-Hctz 50-12.5 mg [Hyzaar 1 tab PO DAILY 12/30/19 07/13/20 50-12.5] Metoprolol Tartrate [Lopressor] 50 mg PO HS 12/30/19 07/13/20 Ascorbic Acid [Vitamin C] 2,000 mg PO HS 07/13/20 07/13/20 Cholecalciferol [Vitamin D3 (25 2,000 unit PO HS 07/13/20 07/13/20 Mcg = 1000 Iu)] Ipratropium-Albuterol Nebulize 3 ml INHALATION RT-QID PRN 07/13/20 07/13/20 [Duoneb 0.5 mg-3 mg/3 ml Soln] Allergies Allergy/AdvReac Type Severity Reaction Status Date / Time No Known Allergies Allergy Verified 07/13/20 11:47 Review of Systems ROS Statement: Those systems with pertinent positive or pertinent negative responses have been documented in the HPI. ROS Other: All systems not noted in ROS Statement are negative. Past Medical History Past Medical History: Hypertension, Rheumatoid Arthritis (RA), Thyroid Disorder Additional Past Medical History / Comment(s): Mult Rt foot infections after surgery, last time 05/2019, had PICC Line for AB and developed bloot clot. Hx kidney stones. 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 CTR kim,bronchoscopy Past Anesthesia/Blood Transfusion Reactions: Previous Problems w/ Anesthesia Additional Past Anesthesia/Blood Transfusion Reaction / Comment(s): slow to awaken x1. Past Psychological History: No Psychological Hx Reported Smoking Status: Former smoker - Past Family History Mother Family Medical History: Cancer Additional Family Medical History / Comment(s): lung with mets brain Father Family Medical History: No Reported History Additional Family Medical History / Comment(s): states, "he just ." General Exam Limitations: no limitations General appearance: alert, in no apparent distress Head exam: Present: atraumatic, normocephalic, normal inspection Eye exam: Present: normal appearance, PERRL, EOMI. Absent: scleral icterus, c onjunctival injection, periorbital swelling ENT exam: Present: normal exam, normal oropharynx, mucous membranes moist Neck exam: Present: normal inspection, full ROM. Absent: tenderness, meningismus, lymphadenopathy Respiratory exam: Present: rhonchi, decreased breath sounds. Absent: normal lung sounds bilaterally, respiratory distress, wheezes, rales, stridor Cardiovascular Exam: Present: normal rhythm, tachycardia, normal heart sounds. Absent: systolic murmur, diastolic murmur, rubs, gallop, clicks GI/Abdominal exam: Present: soft, normal bowel sounds. Absent: distended, tenderness, guarding, rebound, rigid Course Vital Signs 07/13/20 07/13/20 10:34 11:08 Temperature 98.9 F Pulse Rate 110 H 106 H Respiratory 20 18 Rate Blood Pressure 99/66 97/59 O2 Sat by Pulse 91 L 93 L Oximetry EKG Findings - EKG Comments: EKG Findings:: EKG performed at 10:46 sinus tachycardia, rate of 1:15 FL 146 QRS 88 QT/QTC 340/[address] depression noted in V4 through V6 Medical Decision Making - Medical Decision Making 60-year-old presented increase weakness, fatigue. Patient has bilateral pneumonia, patient has recurrent pneumonia. Patient is shown multiple broad- spectrum advice. Patient has leukocytosis with a white count of 20. Patient had multiple recent bronchoscopies and recurrent pneumonia. Patient be admitted for IV antibiotics, consult to his visual merchandising coordinator Dr. Dutton. - Lab Data Result diagrams: 07/13/20 10:59 07/13/20 10:59 Lab Results 07/13/20 07/13/20 07/13/20 Range/Units 10:59 10:59 10:59 WBC 20.4 H (3.8-10.6) k/uL RBC 4.32 (4.30-5.90) m/uL Hgb 11.9 L (13.0-17.5) gm/dL Hct 37.5 L (39.0-53.0) % MCV 86.7 (80.0-100.0) fL MCH 27.5 (25.0-35.0) pg MCHC 31.7 (31.0-37.0) g/dL RDW 17.8 H (11.5-15.5) % Plt Count 352 (150-450) k/uL MPV 9.0 Neutrophils % (Manual) 67 % Band Neuts % (Manual) 5 % Lymphocytes % (Manual) 15 % Monocytes % (Manual) 9 % Eosinophils % (Manual) 4 % Metamyelocytes % 1 % Myelocytes % 2 % Neutrophils # (Manual) 14.60 H (1.3-7.7) k/uL Lymphocytes # (Manual) 3.06 (1.0-4.8) k/uL Monocytes # (Manual) 1.84 H (0-1.0) k/uL Eosinophils # (Manual) 0.82 H (0-0.7) k/uL Metamyelocytes # (Man) 0.20 H (0) k/uL Myelocytes # (Manual) 0.41 H (0) k/uL Nucleated RBCs 0 (0-0) /100 WBC Manual Slide Review Performed Hypochromasia Slight Anisocytosis Slight PT 10.9 (9.0-12.0) sec INR 1.1 (<1.2) APTT 23.1 (22.0-30.0) sec Sodium 135 L (137-145) mmol/L Potassium 3.5 (3.5-5.1) mmol/L Chloride 101 (98-107) mmol/L Carbon Dioxide 25 (22-30) mmol/L Anion Gap 9 mmol/L BUN 16 (9-20) mg/dL Creatinine 1.37 H (0.66-1.25) mg/dL Est GFR (CKD-EPI)AfAm 65 (>60 ml/min/1.73 sqM) Est GFR (CKD-EPI)NonAf 56 (>60 ml/min/1.73 sqM) Glucose 100 H (74-99) mg/dL Plasma Lactic Acid Caden (0.7-2.0) mmol/L Calcium 8.8 (8.4-10.2) mg/dL Magnesium 2.0 (1.6-2.3) mg/dL Total Bilirubin 1.5 H (0.2-1.3) mg/dL AST 22 (17-59) U/L ALT 19 (4-49) U/L Alkaline Phosphatase 116 (38-126) U/L Lactate Dehydrogenase 593 (313-618) U/L Troponin I (0.000-0.034) ng/mL C-Reactive Protein 384.3 H (<10.0) mg/L NT-Pro-B Natriuret Pep pg/mL Total Protein 6.7 (6.3-8.2) g/dL Albumin 3.2 L (3.5-5.0) g/dL Coronavirus (PCR) (Not Detectd) 07/13/20 07/13/20 07/13/20 Range/Units 10:59 10:59 10:59 WBC (3.8-10.6) k/uL RBC (4.30-5.90) m/uL Hgb (13.0-17.5) gm/dL Hct (39.0-53.0) % MCV (80.0-100.0) fL MCH (25.0-35.0) pg MCHC (31.0-37.0) g/dL RDW (11.5-15.5) % Plt Count (150-450) k/uL MPV Neutrophils % (Manual) % Band Neuts % (Manual) % Lymphocytes % (Manual) % Monocytes % (Manual) % Eosinophils % (Manual) % Metamyelocytes % % Myelocytes % % Neutrophils # (Manual) (1.3-7.7) k/uL Lymphocytes # (Manual) (1.0-4.8) k/uL Monocytes # (Manual) (0-1.0) k/uL Eosinophils # (Manual) (0-0.7) k/uL Metamyelocytes # (Man) (0) k/uL Myelocytes # (Manual) (0) k/uL Nucleated RBCs (0-0) /100 WBC Manual Slide Review Hypochromasia Anisocytosis PT (9.0-12.0) sec INR (<1.2) APTT (22.0-30.0) sec Sodium (137-145) mmol/L Potassium (3.5-5.1) mmol/L Chloride (98-107) mmol/L Carbon Dioxide (22-30) mmol/L Anion Gap mmol/L BUN (9-20) mg/dL Creatinine (0.66-1.25) mg/dL Est GFR (CKD-EPI)AfAm (>60 ml/min/1.73 sqM) Est GFR (CKD-EPI)NonAf (>60 ml/min/1.73 sqM) Glucose (74-99) mg/dL Plasma Lactic Acid Caden 1.1 (0.7-2.0) mmol/L Calcium (8.4-10.2) mg/dL Magnesium (1.6-2.3) mg/dL Total Bilirubin (0.2-1.3) mg/dL AST (17-59) U/L ALT (4-49) U/L Alkaline Phosphatase (38-126) U/L Lactate Dehydrogenase (313-618) U/L Troponin I <0.012 (0.000-0.034) ng/mL C-Reactive Protein (<10.0) mg/L NT-Pro-B Natriuret Pep 232 pg/mL Total Protein (6.3-8.2) g/dL Albumin (3.5-5.0) g/dL Coronavirus (PCR) (Not Detectd) 07/13/20 Range/Units 10:59 WBC (3.8-10.6) k/uL RBC (4.30-5.90) m/uL Hgb (13.0-17.5) gm/dL Hct (39.0-53.0) % MCV (80.0-100.0) fL MCH (25.0-35.0) pg MCHC (31.0-37.0) g/dL RDW (11.5-15.5) % Plt Count (150-450) k/uL MPV Neutrophils % (Manual) % Band Neuts % (Manual) % Lymphocytes % (Manual) % Monocytes % (Manual) % Eosinophils % (Manual) % Metamyelocytes % % Myelocytes % % Neutrophils # (Manual) (1.3-7.7) k/uL Lymphocytes # (Manual) (1.0-4.8) k/uL Monocytes # (Manual) (0-1.0) k/uL Eosinophils # (Manual) (0-0.7) k/uL Metamyelocytes # (Man) (0) k/uL Myelocytes # (Manual) (0) k/uL Nucleated RBCs (0-0) /100 WBC Manual Slide Review Hypochromasia Anisocytosis PT (9.0-12.0) sec INR (<1.2) APTT (22.0-30.0) sec Sodium (137-145) mmol/L Potassium (3.5-5.1) mmol/L Chloride (98-107) mmol/L Carbon Dioxide (22-30) mmol/L Anion Gap mmol/L BUN (9-20) mg/dL Creatinine (0.66-1.25) mg/dL Est GFR (CKD-EPI)AfAm (>60 ml/min/1.73 sqM) Est GFR (CKD-EPI)NonAf (>60 ml/min/1.73 sqM) Glucose (74-99) mg/dL Plasma Lactic Acid Caden (0.7-2.0) mmol/L Calcium (8.4-10.2) mg/dL Magnesium (1.6-2.3) mg/dL Total Bilirubin (0.2-1.3) mg/dL AST (17-59) U/L ALT (4-49) U/L Alkaline Phosphatase (38-126) U/L Lactate Dehydrogenase (313-618) U/L Troponin I (0.000-0.034) ng/mL C-Reactive Protein (<10.0) mg/L NT-Pro-B Natriuret Pep pg/mL Total Protein (6.3-8.2) g/dL Albumin (3.5-5.0) g/dL Coronavirus (PCR) Not Detected (Not Detectd) Disposition Clinical Impression: Bilateral pneumonia, Hydropneumothorax, Leukocytosis Disposition: ADMITTED IP TO THIS HOSP Condition: Fair Referrals: Mohsen Morris DO [Primary Care Provider] - 1-2 days
--- NOTE | 2020-07-13 11:22 | XR ---
EXAMINATION TYPE: XR chest 2V DATE OF EXAM: 07/13/2020 COMPARISON: 01/27/2020 HISTORY: Shortness of breath TECHNIQUE: Frontal and lateral views of the chest are obtained. FINDINGS: Scattered senescent parenchymal changes noted. Hyperinflation compatible with COPD. Patchy perihilar and basilar infiltrates compatible with underlying pneumonia. Heart size is stable. Mediastinal structures are stable and grossly unremarkable. No evidence for hilar prominence. Degenerative changes dorsal spine. IMPRESSION: 1. Patchy perihilar and basilar infiltrates compatible with underlying pneumonia.
[2020-07-13 11:30] LABS: Albumin 3.2 g/dL (3.5-5.0); Anisocytosis Slight; Calcium 8.8 mg/dL (8.4-10.2); HCT 37.5 % (39.0-53.0); HGB 11.9 gm/dL (13.0-17.5); Hypochromasia Slight; MCH 27.5 pg (25.0-35.0); MCHC 31.7 g/dL (31.0-37.0); MCV 86.7 fL (80.0-100.0); Platelet Count 352 k/uL (150-450); Potassium 3.5 mmol/L (3.5-5.1); RBC 4.32 m/uL (4.30-5.90); RDW 17.8 % (11.5-15.5); Total Bilirubin 1.5 mg/dL (0.2-1.3); Total Protein 6.7 g/dL (6.3-8.2); WBC 20.4 k/uL (3.8-10.6)
[2020-07-13 11:51] LABS: INR 1.1 (<1.2); Partial Thromboplastin Time 23.1 sec (22.0-30.0); Prothrombin Time 10.9 sec (9.0-12.0)
[2020-07-13 11:52] LABS: Band Neutrophils % 5 %; Eosinophils # (M) 0.82 k/uL (0-0.7); Lymphocytes # (M) 3.06 k/uL (1.0-4.8); Metamyelocytes % 1 %; Monocytes # (M) 1.84 k/uL (0-1.0); Myelocytes # (M) 0.41 k/uL (0); Myelocytes % 2 %; Neutrophils % (M) 67 %; Nucleated Red Blood Cells 0 /100 WBC (0-0); Total Cells Counted 200
[2020-07-13 12:02] LABS: C Reactive Protein 384.3 mg/L (<10.0)
[2020-07-13] MEDS ORDERED: PIPERACILLIN-TAZOBACTAM 3.375 GM in SODIUM CHLORIDE 0.9% 100 ML IVPB STA (12:25)
[2020-07-13] MEDS ORDERED: AZITHROMYCIN 500 MG in SODIUM CHLORIDE 0.9% 250 ML IVPB STA (12:25)
[2020-07-13] MEDS ORDERED: VANCOMYCIN IV PER PHARMACY 1 EACH MISC MISCELLANE PRN (12:25)
[2020-07-13] MEDS ORDERED: SODIUM CHLORIDE 0.9% 1,000 ML IV ONE (12:26)
[2020-07-13] MEDS ORDERED: PNEUMONIA PROTOCOL UTILIZED 1 EACH MISC PO PRN (12:31)
[2020-07-13] MEDS ORDERED: ALBUTEROL HFA INHALER INHALATION PRN (12:32)
[2020-07-13] MEDS ORDERED: IPRATROPIUM-ALBUTEROL 3 ML NEB INHALATION PRN (12:32)
[2020-07-13] MEDS ORDERED: VANCOMYCIN 1,750 MG in SODIUM CHLORIDE 0.9% 500 ML 500 ML IVPB ONE (12:45)
[2020-07-13] MEDS ORDERED: ACETAMINOPHEN TAB 325 MG TAB PO PRN (14:44)
[2020-07-13] MEDS: PIPERACILLIN-TAZOBACTAM 3.375 GM in SODIUM CHLORIDE 0.9% 100 ML IVPB SCH (17:57)
[2020-07-13] MEDS ORDERED: METOPROLOL TARTRATE 50 MG TAB PO SCH (21:00)
[2020-07-14] MEDS ORDERED: VANCOMYCIN 1,750 MG in SODIUM CHLORIDE 0.9% 500 ML 500 ML IVPB SCH (03:00)
[2020-07-14] MEDS ORDERED: LEVOTHYROXINE 75 MCG TAB PO SCH (06:30)
[2020-07-14 08:09] VITALS: BP 103/57; TEMP 98.2
[2020-07-14 08:40] VITALS: PULSE 72
[2020-07-14] MEDS ORDERED: LOSARTAN-HCTZ 50-12.5 MG 1 EACH TAB PO SCH (09:00)
[2020-07-14 11:17] VITALS: RESP 18
[2020-07-14] MEDS ORDERED: AZITHROMYCIN 500 MG in SODIUM CHLORIDE 0.9% 250 ML IVPB SCH (12:00)
--- NOTE | 2020-07-14 12:46 | P.CNPUL ---
History of Present Illness Consult date: 07/14/20 Reason for consult: dyspnea Chief complaint: Dyspnea History of present illness: This is 60-year-old white male with history of hypertension, hypothyroidism, rheumatoid arthritis, rheumatoid lung disease, previous history of loculated bilateral empyema requiring is chest tube placement last December 2019. At that time patient was treated conservatively, did not require VATS, was treated with IV antibiotics, and recovered. Patient is an ex-smoker, patient follows with Dr. Dutton in the pulmonary clinic for his pulmonary issues. The past used to take prednisone and Arav4 rheumatoid arthritis, currently is off of them. On 07/13/2020 patient came into the emergency department with complaints of body aches, fatigue, generalized weakness and not feeling well. Patient really had echocardiogram on Saturday and he felt very sick after she left the office, and he states he had been in bed ever since. He had recently been on multiple rounds of antibiotics, he had bronchoscopy with BAL on 05/18/[address] Dutton for r heumatoid lung, and retained secretions. His cultures were negative except for Inessa albicans in the BAL. No recent antibiotics or steroids. His chest x- ray showed patchy perihilar and basilar infiltrates compatible with underlying pneumonia. He ruled out for COVID 19. His white count was 20.4, hemoglobin was 11.9, sodium is 135, the rest of the electrolytes were within normal limits, BUN was 16 creatinine is 1.37, troponin was less than 0.012, CRP was 384, LDH was 593. He did have a low-grade fevers on admission, he is afebrile this morning, hemodynamically stable, overall he states he is feeling much better. Recently department he was started on antibiotics in the form of Zosyn and vancomycin. He received breathing treatments and IV hydration. He sitting up in the chair, appears to be very comfortable, some bibasilar crackles, but no rhonchi or wheezing. Review of Systems All systems: negative Constitutional: Reports fatigue, Reports fever, Reports weakness, Denies chills Eyes: denies blurred vision, denies pain Ears, nose, mouth and throat: Denies headache, Denies sore throat Cardiovascular: Denies chest pain, Denies shortness of breath Respiratory: Reports dyspnea, Denies cough Gastrointestinal: Denies abdominal pain, Denies diarrhea, Denies nausea, Denies vomiting Musculoskeletal: Denies myalgias Integumentary: Denies pruritus, Denies rash Neurological: Denies numbness, Denies weakness Psychiatric: Denies anxiety, Denies depression Endocrine: Denies fatigue, Denies weight change Past Medical History Past Medical History: Deep Vein Thrombosis (DVT), Hypertension, Rheumatoid Arthritis (RA), Thyroid Disorder Additional Past Medical History / Comment(s): Mult Rt foot infections after surgery, last time 05/2019, had PICC Line for AB and developed bloot clot. Hx kidney stones. 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 History of Any Multi-Drug Resistant Organisms: None Reported Past Surgical History: Back Surgery, Tonsillectomy Additional Past Surgical History / Comment(s): Right foot surgery, repair herniated disc, plate removed rt foot. CTR kim,bronchoscopy X4 Past Anesthesia/Blood Transfusion Reactions: Previous Problems w/ Anesthesia Additional Past Anesthesia/Blood Transfusion Reaction / Comment(s): slow to awaken x1. Past Psychological History: No Psychological Hx Reported Smoking Status: Former smoker Past Alcohol Use History: None Reported Additional Past Alcohol Use History / Comment(s): QUIT SMOKING 2003, smoked 15 years, 1 - 1 1/2 ppd Past Drug Use History: None Reported - Past Family History Mother Family Medical History: Cancer Additional Family Medical History / Comment(s): lung with mets brain Father Family Medical History: No Reported History Additional Family Medical History / Comment(s): states, "he just ." Medications and Allergies Home Medications Medication Instructions Recorded Confirmed Type Levothyroxine Sodium [Synthroid] 150 mcg PO DAILY 10/17/16 07/13/20 History Albuterol Inhaler [Ventolin Hfa 2 puff INHALATION RT-QID PRN 12/30/19 07/13/20 History Inhaler] Losartan-Hctz 50-12.5 mg [Hyzaar 1 tab PO DAILY 12/30/19 07/13/20 History 50-12.5] Metoprolol Tartrate [Lopressor] 50 mg PO HS 12/30/19 07/13/20 History Ascorbic Acid [Vitamin C] 2,000 mg PO HS 07/13/20 07/13/20 History Cholecalciferol [Vitamin D3 (25 2,000 unit PO HS 07/13/20 07/13/20 History Mcg = 1000 Iu)] Ipratropium-Albuterol Nebulize 3 ml INHALATION RT-QID PRN 07/13/20 07/13/20 History [Duoneb 0.5 mg-3 mg/3 ml Soln] Azithromycin [Zithromax] 500 mg PO DAILY 10 Days #10 tab 07/14/20 Rx Cefdinir [Omnicef] 300 mg PO Q12HR 10 Days #20 capsule 07/14/20 Rx predniSONE 40 mg PO DIRECTED 7 Days #7 tab 07/14/20 Rx Allergies Allergy/AdvReac Type Severity Reaction Status Date / Time No Known Allergies Allergy Verified 07/13/20 11:47 Physical Exam Vitals: Vital Signs Temp Pulse Pulse Resp BP BP Pulse Ox 07/14/20 11:17 18 90 L 07/14/20 08:51 72 07/14/20 08:35 72 07/14/20 08:00 98.2 F 100 16 103/57 94 L 07/14/20 02:02 99.1 F 104 H 95/57 95 07/13/20 20:00 18 07/13/20 17:40 99.1 F 109 H 18 94/56 97 07/13/20 14:46 100.3 F H 112 H 19 104/69 88 L 07/13/20 14:07 99.3 F 109 H 18 106/63 93 L 07/13/20 13:26 105 H 18 114/72 94 L Intake and Output 07/13/20 07/14/20 07/14/20 22:59 06:59 14:59 Other: Voiding Method Toilet # Voids 2 GENERAL EXAM: Alert, very pleasant, 60-year-old white male, on room air, with pulse ox of 95% comfortable in no apparent distress. HEAD: Normocephalic/atraumatic. EYES: Normal reaction of pupils, equal size. Conjunctiva pink, sclera white. NOSE: Clear with pink turbinates. THROAT: No erythema or exudates. NECK: No masses, no JVD, no thyroid enlargement, no adenopathy. CHEST: No chest wall deformity. Symmetrical expansion. LUNGS: Equal air entry with some bibasilar crackles, no major wheezing or coughing or rhonchi CVS: Regular rate and rhythm, normal S1 and S2, no gallops, no murmurs, no rubs ABDOMEN: Soft, nontender. No hepatosplenomegaly, normal bowel sounds, no guarding or rigidity. EXTREMITIES: No clubbing, no edema, no cyanosis, 2+ pulses and upper and lower extremities. MUSCULOSKELETAL: Muscle strength and tone normal. SPINE: No scoliosis or deformity SKIN: No rashes CENTRAL NERVOUS SYSTEM: Alert and oriented -3. No focal deficits, tone is normal in all 4 extremities. PSYCHIATRIC: Alert and oriented -3. Appropriate affect. Intact judgment and insight. Results - Laboratory Findings CBC and BMP: 07/13/20 10:59 07/13/20 10:59 PT/INR, D-dimer PT 10.9 sec (9.0-12.0) 07/13/20 10:59 INR 1.1 (<1.2) 07/13/20 10:59 Abnormal lab findings: Abnormal Labs 07/13/20 07/13/20 10:59 10:59 WBC 20.4 H Hgb 11.9 L Hct 37.5 L RDW 17.8 H Neutrophils # (Manual) 14.60 H Monocytes # (Manual) 1.84 H Eosinophils # (Manual) 0.82 H Metamyelocytes # (Man) 0.20 H Myelocytes # (Manual) 0.41 H Sodium 135 L Creatinine 1.37 H Glucose 100 H Total Bilirubin 1.5 H C-Reactive Protein 384.3 H Albumin 3.2 L - Diagnostic Findings Chest x-ray: report reviewed, image reviewed Assessment and Plan Plan: Assessment: #1. Possible community-acquired pneumonia, COVID 19 was negative. #2. Fever, weakness, fatigue, shortness of breath, related to the above, improved #3. History of rheumatoid arthritis, and rheumatoid lung, previously on Arava and chronic prednisone, currently off #4. Previous history of bilateral lung empyema related to strep pneumonia in December 2019, treated with done chest tube drainage, and IV antibiotics, did not require VATS #5. Former smoker #6. Hypertension #7. Hypothyroidism Plan: Patient is feeling much better, breathing easier, afebrile this morning, vital signs are stable, altered mentation, no worsening dyspnea, from pulmonary pers pective he can be discharged home on a 10 day course of Omnicef 300 mg twice daily for 10 days and azithromycin 500 mg daily for 10 days, and prednisone 40 mg daily in addition to his regular updrafts. Patient will be seen by Dr. Dutton in the office on 07/19/2020 at 8:30 in the morning. I performed a history & physical examination of the patient and discussed their management with my nurse practitioner, Марина Thompson. I reviewed the nurse practitioner's note and agree with the documented findings and plan of care. Lung sounds are positive for bibasilar crackles. The findings and the imp ression was discussed with the patient. I attest to the documentation by the nurse practitioner. Time with Patient: Greater than 30
--- NOTE | 2020-07-14 13:13 | P.HPIM ---
History of Present Illness H&P Date: 07/14/20 Chief Complaint: Shortness of breath cough This is 60-year-old white male with history of hypertension, hypothyroidism, rheumatoid arthritis, rheumatoid lung disease, previous history of loculated bilateral empyema requiring is chest tube placement last December 2019. At that t tadeo patient was treated conservatively, did not require VATS, was treated with IV antibiotics, and recovered. Patient is an ex-smoker, patient follows with Dr. Dutton in the pulmonary clinic for his pulmonary issues. The past used to take prednisone and Arav4 rheumatoid arthritis, currently is off of them. On 07/13/2020 patient came into the emergency department with complaints of body aches, fatigue, generalized weakness and not feeling well. Patient really had echocardiogram on Saturday and he felt very sick after she left the office, and he states he had been in bed ever since. He had recently been on multiple rounds of antibiotics, he had bronchoscopy with BAL on 05/18/[address] Dutton for rheumatoid lung, and retained secretions. His cultures were negative except for Inessa albicans in the BAL. No recent antibiotics or steroids. His chest x- ray showed patchy perihilar and basilar infiltrates compatible with underlying pneumonia. He ruled out for COVID 19. His white count was 20.4, hemoglobin was 11.9, sodium is 135, the rest of the electrolytes were within normal limits, BUN was 16 creatinine is 1.37, troponin was less than 0.012, CRP was 384, LDH was 593. He did have a low-grade fevers on admission, he is afebrile this morning, hemodynamically stable, overall he states he is feeling much better. Recently department he was started on antibiotics in the form of Zosyn and vancomycin. He received breathing treatments and IV hydration. He sitting up in the chair, appears to be very comfortable, some bibasilar crackles, but no rhonchi or wheezing. Review of Systems All systems: negative Past Medical History Past Medical History: Deep Vein Thrombosis (DVT), Hypertension, Rheumatoid Arthritis (RA), Thyroid Disorder Additional Past Medical History / Comment(s): Mult Rt foot infections after surgery, last time 05/2019, had PICC Line for AB and developed bloot clot. Hx kidney stones. 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 History of Any Multi-Drug Resistant Organisms: None Reported Past Surgical History: Back Surgery, Tonsillectomy Additional Past Surgical History / Comment(s): Right foot surgery, repair herniated disc, plate removed rt foot. [facility] kim,bronchoscopy X4 Past Anesthesia/Blood Transfusion Reactions: Previous Problems w/ Anesthesia Additional Past Anesthesia/Blood Transfusion Reaction / Comment(s): slow to awaken x1. Past Psychological History: No Psychological Hx Reported Smoking Status: Former smoker Past Alcohol Use History: None Reported Additional Past Alcohol Use History / Comment(s): QUIT SMOKING 2003, smoked 15 years, 1 - 1 1/2 ppd Past Drug Use History: None Reported - Past Family History Mother Family Medical History: Cancer Additional Family Medical History / Comment(s): lung with mets brain Father Family Medical History: No Reported History Additional Family Medical History / Comment(s): states, "he just ." Medications and Allergies Home Medications Medication Instructions Recorded Confirmed Type Levothyroxine Sodium [Synthroid] 150 mcg PO DAILY 10/17/16 07/13/20 History Albuterol Inhaler [Ventolin Hfa 2 puff INHALATION RT-QID PRN 12/30/19 07/13/20 History Inhaler] Losartan-Hctz 50-12.5 mg [Hyzaar 1 tab PO DAILY 12/30/19 07/13/20 History 50-12.5] Metoprolol Tartrate [Lopressor] 50 mg PO HS 12/30/19 07/13/20 History Ascorbic Acid [Vitamin C] 2,000 mg PO HS 07/13/20 07/13/20 History Cholecalciferol [Vitamin D3 (25 2,000 unit PO HS 07/13/20 07/13/20 History Mcg = 1000 Iu)] Ipratropium-Albuterol Nebulize 3 ml INHALATION RT-QID PRN 07/13/20 07/13/20 History [Duoneb 0.5 mg-3 mg/3 ml Soln] Azithromycin [Zithromax] 500 mg PO DAILY 10 Days #10 tab 07/14/20 Rx Cefdinir [Omnicef] 300 mg PO Q12HR 10 Days #20 capsule 07/14/20 Rx predniSONE 40 mg PO DIRECTED 7 Days #7 tab 07/14/20 Rx Allergies Allergy/AdvReac Type Severity Reaction Status Date / Time No Known Allergies Allergy Verified 07/13/20 11:47 Physical Exam Vitals: Vital Signs Temp Pulse Pulse Resp BP BP Pulse Ox 07/14/20 11:17 18 90 L 07/14/20 08:51 72 07/14/20 08:35 72 07/14/20 08:00 98.2 F 100 16 103/57 94 L 07/14/20 02:02 99.1 F 104 H 95/57 95 07/13/20 20:00 18 07/13/20 17:40 99.1 F 109 H 18 94/56 97 07/13/20 14:46 100.3 F H 112 H 19 104/69 88 L 07/13/20 14:07 99.3 F 109 H 18 106/63 93 L 07/13/20 13:26 105 H 18 114/72 94 L Intake and Output 07/13/20 07/14/20 07/14/20 22:59 06:59 14:59 Other: Voiding Method Toilet # Voids 2 - Constitutional General appearance: average body habitus, disheveled - EENT Eyes: PERRLA Ears: bilateral: normal - Neck Carotids: bilateral: upstroke normal Thyroid: bilateral: normal size - Respiratory Respiratory: bilateral: diminished - Cardiovascular Rhythm: regular Heart sounds: normal: S1, S2 - Gastrointestinal General gastrointestinal: normal bowel sounds, soft - Neurologic Neurologic: CNII-XII intact - Musculoskeletal Musculoskeletal: gait normal, generalized weakness, strength equal bilaterally - Psychiatric Psychiatric: A&O x's 3, appropriate affect, intact judgment & insight Results CBC & Chem 7: 07/13/20 10:59 07/13/20 10:59 Chest x-ray: report reviewed, image reviewed (Patchy perihilar and bibasilar infiltrate consistent with pneumonia) Thrombosis Risk Factor Assmnt - Choose All That Apply Each Factor Represents 1 point: Age 41-60 years, Obesity (BMI >25), Serious lung disease incl. pneumonia (< 1month) Each Risk Factor Represents 3 Points: History of DVT/PE Thrombosis Risk Factor Assessment Total Risk Factor Score: 6 Thrombosis Risk Factor Assessment Level: High Risk Assessment and Plan Assessment: Community-acquired pneumonia Advanced with diet arthritis with history of rheumatoid lung Hypertension hypertensive cardiovascular disease Hypothyroidism History of prior immunosuppression with chronic steroid and Arava currently off of it Plan: Broad-spectrum IV antibiotics Primary Pulmonary evaluation Continue home medicines Other recommendations pending plan of care as per clinical response of patient Time with Patient: Greater than 30
--- NOTE | 2020-07-14 13:17 | P.DS ---
Providers Date of admission: 07/13/20 12:30 Expected date of discharge: 07/14/20 Attending physician: Simeon Ordaz Consults: 07/13/20 12:32 Consult Physician Urgent Consulting Provider: Brian Dutton Reason/Comments: Established patient, recent bronchoscopy, pneumonia Do you want consulting provider notified?: Yes Primary care physician: [facility] Course: 07/14/2020, patient sitting upright on the chair breathing comfortably, at room air, denies any chest pain cough congestion much better now, patient has been evaluated by his primary medical record specialist who recommended to discharge on oral Omnicef , oral steroids and Zithromax with follow-up in the outpatient, patient agree with current plan of care he will be discharged to follow-up with him and primary service This is 60-year-old white male with history of hypertension, hypothyroidism, rheumatoid arthritis, rheumatoid lung disease, previous history of loculated bilateral empyema requiring is chest tube placement last December 2019. At that time patient was treated conservatively, did not require VATS, was treated with IV antibiotics, and recovered. Patient is an ex-smoker, patient follows with Dr John Dutton in the pulmonary clinic for his pulmonary issues. The past used to take prednisone and Arav4 rheumatoid arthritis, currently is off of them. On 07/13/2020 patient came into the emergency department with complaints of body aches, fatigue, generalized weakness and not feeling well. Patient really had echocardiogram on Saturday and he felt very sick after she left the office, and he states he had been in bed ever since. He had recently been on multiple rounds of antibiotics, he had bronchoscopy with BAL on 05/18/[address] Dutton for rheumatoid lung, and retained secretions. His cultures were negative except for Inessa albicans in the BAL. No recent antibiotics or steroids. His chest x- ray showed patchy perihilar and basilar infiltrates compatible with underlying pneumonia. He ruled out for COVID 19. His white count was 20.4, hemoglobin was 11.9, sodium is 135, the rest of the electrolytes were within normal limits, BUN was 16 creatinine is 1.37, troponin was less than 0.012, CRP was 384, LDH was 593. He did have a low-grade fevers on admission, he is afebrile this morning, hemodynamically stable, overall he states he is feeling much better. Recently department he was started on antibiotics in the form of Zosyn and vancomycin. He received breathing treatments and IV hydration. He sitting up in the chair, appears to be very comfortable, some bibasilar crackles, but no rhonchi or wheezing. Assessment: Community-acquired pneumonia Leukocytosis Advanced with diet arthritis with history of rheumatoid lung Hypertension hypertensive cardiovascular disease Hypothyroidism History of prior immunosuppression with chronic steroid and Arava currently off of it Patient Condition at Discharge: Good Plan - Discharge Summary New Discharge Prescriptions: New Cefdinir [Omnicef] 300 mg PO Q12HR 10 Days #20 capsule predniSONE 40 mg PO DIRECTED 7 Days #7 tab Azithromycin [Zithromax] 500 mg PO DAILY 10 Days #10 tab Continue Levothyroxine Sodium [Synthroid] 150 mcg PO DAILY Albuterol Inhaler [Ventolin Hfa Inhaler] 2 puff INHALATION RT-QID PRN PRN Reason: Shortness Of Breath Losartan-Hctz 50-12.5 mg [Hyzaar 50-12.5] 1 tab PO DAILY Metoprolol Tartrate [Lopressor] 50 mg PO HS Cholecalciferol [Vitamin D3 (25 Mcg = 1000 Iu)] 2,000 unit PO HS Ipratropium-Albuterol Nebulize [Duoneb 0.5 mg-3 mg/3 ml Soln] 3 ml INHALATION RT-QID PRN PRN Reason: Shortness Of Breath Ascorbic Acid [Vitamin C] 2,000 mg PO HS Discharge Medication List Levothyroxine Sodium [Synthroid] 150 mcg PO DAILY 10/17/16 [History] Albuterol Inhaler [Ventolin Hfa Inhaler] 2 puff INHALATION RT-QID PRN 12/30/19 [ History] Losartan-Hctz 50-12.5 mg [Hyzaar 50-12.5] 1 tab PO DAILY 12/30/19 [History] Metoprolol Tartrate [Lopressor] 50 mg PO HS 12/30/19 [History] Ascorbic Acid [Vitamin C] 2,000 mg PO HS 07/13/20 [History] Cholecalciferol [Vitamin D3 (25 Mcg = 1000 Iu)] 2,000 unit PO HS 07/13/20 [History] Ipratropium-Albuterol Nebulize [Duoneb 0.5 mg-3 mg/3 ml Soln] 3 ml INHALATION RT-QID PRN 07/13/20 [History] Azithromycin [Zithromax] 500 mg PO DAILY 10 Days #10 tab 07/14/20 [Rx] Cefdinir [Omnicef] 300 mg PO Q12HR 10 Days #20 capsule 07/14/20 [Rx] predniSONE 40 mg PO DIRECTED 7 Days #7 tab 07/14/20 [Rx] Follow up Appointment(s)/Referral(s): Mohsen Morris DO [Primary Care Provider] - 1-2 days (PLEASE CALL OFFICE AND SCHEDULE APPOINTMENT ) Brian Dutton DO [Doctor of Osteopathic Medicine] - 07/19/20 8:00 am (CALL OFFICE TO VERIFY TIME ) Patient Instructions/Handouts: Bacterial Pneumonia (DC) Discharge Disposition: HOME SELF-CARE
[2020-07-14] MEDS: PIPERACILLIN-TAZOBACTAM 3.375 GM in SODIUM CHLORIDE 0.9% 100 ML IVPB SCH ×3 (13:21)
[2020-07-15] MEDS ORDERED: VANCOMYCIN TROUGH DUE 1 EACH MISC MISCELLANE ONE (14:00)
--- NOTE | 2020-07-18 11:12 | XR ---
EXAMINATION TYPE: XR chest 2V DATE OF EXAM: 07/18/2020 COMPARISON: Chest x-ray from yesterday and older studies. Chest CT December 30, 2019. HISTORY: Pneumonia. TECHNIQUE: Frontal and lateral views of the chest are obtained. FINDINGS: Persistent azygos lobe/fissure. Osseous structures remain intact. Persistent small sized p osterior bilateral pleural spaces containing air and fluid left slightly larger than right. Backgroun d mild cardiomegaly with central opacities bilaterally. Fluid-filled layering in fissures is noted. P osterior basilar volume loss is redemonstrated. IMPRESSION: Chronic parenchymal changes and cardiomegaly with persistent bilateral perihilar edema a nd/or infiltrates. Latter similar to most recent x-ray. Favor CHF exacerbation. 5 focal infiltrates n ot excluded. There are posterior basilar pleural collections of air and fluid unchanged from multiple prior studies.
== END 2020-07-14 13:59 | disposition home or self-care (01) | DRG 194 ==
LOC: EC 10:31 → 4SSUR 12:30
PROVIDERS: ADMIT Internal Medicine Sleep Medicine; ATTEND Internal Medicine Sleep Medicine
DX: J18.9 Pneumonia, unspecified organism (principal); J94.8 Other specified pleural conditions; Z20.828 Contact with and (suspected) exposure to other viral communicable diseases; E03.9 Hypothyroidism, unspecified; I11.9 Hypertensive heart disease without heart failure; M19.90 Unspecified osteoarthritis, unspecified site; M06.30 Rheumatoid nodule, unspecified site; M06.9 Rheumatoid arthritis, unspecified; Z79.890 Hormone replacement therapy; Z79.899 Other long term (current) drug therapy; Z87.01 Personal history of pneumonia (recurrent); Z87.442 Personal history of urinary calculi; Z87.891 Personal history of nicotine dependence; Z86.718 Personal history of other venous thrombosis and embolism; Z90.89 Acquired absence of other organs; Z98.890 Other specified postprocedural states; Z87.39 Personal history of other diseases of the musculoskeletal system and connective tissue; Z80.8 Family history of malignant neoplasm of other organs or systems; Z80.9 Family history of malignant neoplasm, unspecified
CPT/HCPCS: 36415; 71046; 80053; 83605; 83615; 83735; 83880; 84484; 85025; 85610; 85730; 86140; 87040; 87635; 93005; 94640; 96365; 96367; 99285

== ENCOUNTER 2020-07-18 10:02 | Inpatient (IN) | payer BC ==
[2020-07-18] MEDS ORDERED: SODIUM CHLORIDE 0.9% 1,000 ML IV STA (10:26)
--- NOTE | 2020-07-18 10:38 | ED ---
SOB HPI - General Source: EMS Mode of arrival: EMS Limitations: no limitations <Arlette Doyle - Last Filed: 07/18/20 13:14> <Fco Tinajero - Last Filed: 07/18/20 13:28> - General Chief Complaint: Shortness of Breath Stated Complaint: SOB Time Seen by Provider: 07/18/20 10:19 - History of Present Illness Initial Comments: 60-year-old male history of hypertension dyslipidemia, left-sided hyphema in the past from suspected rheumatoid disease, recent diagnosis of pneumonia and discharged from the hospital presents emergency room today for chief complaint of worsening shortness of breath. Patient states that he was admitted and diagnosed with pneumonia after experiencing shortness of breath approximately o ne week ago. Patient states he is discharged on antibiotic steroids and breathing treatments and states he do not seem to be helping. She states his lips are extremely dry he has not been eating or drinking very much for the past few days. Patient states he cannot remember the last time he urinated. Patient denies fevers cough he states he does have some difficulty lying flat. He states he has noticed his legs are more swollen than usual. Patient denies any chest pain pressure jaw pain or arm pain and back pain. He denies any indigestion nausea upper abdominal pain. Patient denies any pain deep inspiration hemoptysis. Patient states he had a DVT in the past secondary to a PICC line he states he is not currently on any anticoagulation therapy. Pt denies additional complaints. Upon arrival pt hypoxic but can speak complete sentences and went up to 100% on 5L nasal cannula. (Arlette Doyle) - Related Data Home Medications Medication Instructions Recorded Confirmed Levothyroxine Sodium [Synthroid] 150 mcg PO DAILY 10/17/16 07/18/20 Albuterol Inhaler [Ventolin Hfa 2 puff INHALATION RT-QID PRN 12/30/19 07/18/20 Inhaler] Losartan-Hctz 50-12.5 mg [Hyzaar 1 tab PO DAILY 12/30/19 07/18/20 50-12.5] Metoprolol Tartrate [Lopressor] 50 mg PO HS 12/30/19 07/18/20 Ascorbic Acid [Vitamin C] 2,000 mg PO HS 07/13/20 07/18/20 Cholecalciferol [Vitamin D3 (25 2,000 unit PO HS 07/13/20 07/18/20 Mcg = 1000 Iu)] Ipratropium-Albuterol Nebulize 3 ml INHALATION RT-QID PRN 07/13/20 07/18/20 [Duoneb 0.5 mg-3 mg/3 ml Soln] Previous Rx's Medication Instructions Recorded Azithromycin [Zithromax] 500 mg PO DAILY 10 Days #10 tab 07/14/20 Cefdinir [Omnicef] 300 mg PO Q12HR 10 Days #20 capsule 07/14/20 Allergies Allergy/AdvReac Type Severity Reaction Status Date / Time No Known Allergies Allergy Verified 07/18/20 10:37 Review of Systems ROS Other: All systems not noted in ROS Statement are negative. <Arlette Doyle - Last Filed: 07/18/20 13:14> ROS Other: All systems not noted in ROS Statement are negative. <Fco Tinajero - Last Filed: 07/18/20 13:28> ROS Statement: Those systems with pertinent positive or pertinent negative responses have been documented in the HPI. Past Medical History Past Medical History: Deep Vein Thrombosis (DVT), Hypertension, Rheumatoid Arthritis (RA), Thyroid Disorder Additional Past Medical History / Comment(s): Mult Rt foot infections after surgery, last time 05/2019, had PICC Line for AB and developed bloot clot. Hx kidney stones. 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 History of Any Multi-Drug Resistant Organisms: None Reported Past Surgical History: Back Surgery, Tonsillectomy Additional Past Surgical History / Comment(s): Right foot surgery, repair herniated disc, plate removed rt foot. [facility] kim,bronchoscopy X4 Past Anesthesia/Blood Transfusion Reactions: Previous Problems w/ Anesthesia Additional Past Anesthesia/Blood Transfusion Reaction / Comment(s): slow to awaken x1. Past Psychological History: No Psychological Hx Reported Smoking Status: Former smoker Past Alcohol Use History: None Reported Past Drug Use History: None Reported - Past Family History Mother Family Medical History: Cancer Additional Family Medical History / Comment(s): lung with mets brain Father Family Medical History: No Reported History Additional Family Medical History / Comment(s): states, "he just ." <Arlette Doyle - Last Filed: 12/28/20 13:14> General Exam Limitations: no limitations <RocwilverArlette Ellison - Last Filed: 07/18/20 13:14> - General Exam Comments Initial Comments: General: The patient is awake and alert, in no distress Eye: Pupils are equal, round and reactive to light, extra-ocular movements are intact. No nystagmus. There is normal conjunctiva bilaterally. No signs of icterus. Ears, nose, mouth and throat: There are moist mucous membranes and no oral lesions. Neck: The neck is supple, there is no tenderness or JVD. Cardiovascular: There is a regular rate and rhythm. No murmur, rub or gallop is appreciated. Respiratory: Lungs are clear to auscultation, respirations are non-labored, breath sounds are equal. Mild wheeze, diffuse crackles. NO retractions or abdominal breathing. Gastrointestinal: Soft, non-distended, non-tender abdomen without masses or organomegaly noted. There is no rebound or guarding present. Musculoskeletal: Normal ROM, no tenderness. Strength 5/5. Sensation intact. Radial and DP pulses equal bilaterally 2+. Neurological: A&O x 3. CN II-XII intact grossly, There are no obvious motor or sensory deficits. Coordination appears grossly intact. Speech is normal. Skin: Skin is warm and dry and no rashes or lesions are noted. There is siffuse LE edema, left slightly worse than the right. Psychiatric: Cooperative, appropriate mood & affect, normal judgment. (Arlette Doyle) Course <VivekArlette Ellison - Last Filed: 07/18/20 13:14> Vital Signs 07/18/20 07/18/20 07/18/20 10:05 11:33 12:16 Temperature 97.5 F L Pulse Rate 107 H 96 98 Respiratory 18 18 22 Rate Blood Pressure 99/56 75/48 91/52 O2 Sat by Pulse 89 L 96 96 Oximetry 07/18/20 12:57 Temperature Pulse Rate 98 Respiratory 20 Rate Blood Pressure 74/51 O2 Sat by Pulse 96 Oximetry - Reevaluation(s) Reevaluation #1: Nurse updated BP, low, discussed with attending Dr Tinajero immediately-- he will assist with choice of vasopressor. 07/18/20 11:56 (Arlette Doyle) Reevaluation #2: nephrology and vascular on consult, Dr Tinajero spoke with nephrology. CUrrently contacted key bed installer 07/18/20 13:14 (Arlette Doyle) Medical Decision Making - Lab Data Result diagrams: 07/18/20 10:32 07/18/20 10:32 <Arlette Doyle - Last Filed: 07/18/20 13:14> - Lab Data Result diagrams: 07/18/20 10:32 07/18/20 10:32 <Fco Tinajero - Last Filed: 07/18/20 13:28> - Medical Decision Making Surprisingly pleasant nontoxic appearing 60yo male. cc dyspnea. hx of recurrent left-sided hyphema. recent pneumonia diagnosis. appears to be in ARF of at this time unknown etiology, no production of urine in 3-4 days and patient catheterization in the emergency department revealed only 100 mL. US no obstructive process. no hydronephrosis. pt CXR concerning for pneumonia, vscular congestion. Pt case discussed at length and great detail with attending Dr. Tniajero who recommended peripheral levophed for BP management and IV abx (levoquin and zosyn). (Arlette Doyle) I, Gamaliel Tinajero, personally saw and examined the patient. I have reviewed and agree with the PA findings, including all diagnostic interpretations and treatment plans as written unless otherwise stated. I was present for the [place] portions of any procedures performed and the inclusive time noted for any critical care statement. I spoke with Dr. Gracia about dialyzing the patient I also spoke with Dr. Meraz about a dialysis catheter. I also spoke with Dr. Gamino about sending the patient to the intensive care unit. Patient was started on Levophed for hypotension. (Fco Tinajero) - Lab Data Lab Results 07/18/20 07/18/20 07/18/20 Range/Units 10:32 10:32 10:32 WBC 15.3 H (3.8-10.6) k/uL RBC 3.83 L (4.30-5.90) m/uL Hgb 10.3 L (13.0-17.5) gm/dL Hct 33.5 L (39.0-53.0) % MCV 87.5 (80.0-100.0) fL MCH 26.9 (25.0-35.0) pg MCHC 30.8 L (31.0-37.0) g/dL RDW 17.4 H (11.5-15.5) % Plt Count 262 (150-450) k/uL MPV 8.8 Neutrophils % 79 % Lymphocytes % 10 % Monocytes % 4 % Eosinophils % 5 % Basophils % 1 % Neutrophils # 12.1 H (1.3-7.7) k/uL Lymphocytes # 1.6 (1.0-4.8) k/uL Monocytes # 0.5 (0-1.0) k/uL Eosinophils # 0.7 (0-0.7) k/uL Basophils # 0.1 (0-0.2) k/uL Hypochromasia Marked Anisocytosis Slight PT 12.4 H (9.0-12.0) sec INR 1.2 H (<1.2) APTT 27.6 (22.0-30.0) sec D-Dimer 3.20 H (<0.60) mg/L FEU Sodium 135 L (137-145) mmol/L Potassium 3.9 (3.5-5.1) mmol/L Chloride 102 (98-107) mmol/L Carbon Dioxide 18 L (22-30) mmol/L Anion Gap 15 mmol/L BUN 35 H (9-20) mg/dL Creatinine 11.38 H* (0.66-1.25) mg/dL Est GFR (CKD-EPI)AfAm 5 (>60 ml/min/1.73 sqM) Est GFR (CKD-EPI)NonAf 4 (>60 ml/min/1.73 sqM) Glucose 106 H (74-99) mg/dL Lactic Ac Sepsis Rflx Plasma Lactic Acid Caden (0.7-2.0) mmol/L Calcium 8.0 L (8.4-10.2) mg/dL Magnesium 2.2 (1.6-2.3) mg/dL Total Bilirubin 0.7 (0.2-1.3) mg/dL AST 30 (17-59) U/L ALT 14 (4-49) U/L Alkaline Phosphatase 116 (38-126) U/L Troponin I (0.000-0.034) ng/mL NT-Pro-B Natriuret Pep pg/mL Total Protein 6.2 L (6.3-8.2) g/dL Albumin 2.8 L (3.5-5.0) g/dL Urine Color Urine Appearance (Clear) Urine pH (5.0-8.0) Ur Specific [place] (1.001-1.035) Urine Protein (Negative) Urine Glucose (UA) (Negative) Urine Ketones (Negative) Urine Blood (Negative) Urine Nitrite (Negative) Urine Bilirubin (Negative) Urine Urobilinogen (<2.0) mg/dL Ur Leukocyte Esterase (Negative) Urine RBC (0-5) /hpf Urine WBC (0-5) /hpf Amorphous Sediment (None) /hpf Urine Bacteria (None) /hpf Hyaline Casts (0-2) /lpf Urine Mucus (None) /hpf Coronavirus (PCR) (Not Detectd) 07/18/20 07/18/20 07/18/20 Range/Units 10:32 10:32 10:32 WBC (3.8-10.6) k/uL RBC (4.30-5.90) m/uL Hgb (13.0-17.5) gm/dL Hct (39.0-53.0) % MCV (80.0-100.0) fL MCH (25.0-35.0) pg MCHC (31.0-37.0) g/dL RDW (11.5-15.5) % Plt Count (150-450) k/uL MPV Neutrophils % % Lymphocytes % % Monocytes % % Eosinophils % % Basophils % % Neutrophils # (1.3-7.7) k/uL Lymphocytes # (1.0-4.8) k/uL Monocytes # (0-1.0) k/uL Eosinophils # (0-0.7) k/uL Basophils # (0-0.2) k/uL Hypochromasia Anisocytosis PT (9.0-12.0) sec INR (<1.2) APTT (22.0-30.0) sec D-Dimer (<0.60) mg/L FEU Sodium (137-145) mmol/L Potassium (3.5-5.1) mmol/L Chloride (98-107) mmol/L Carbon Dioxide (22-30) mmol/L Anion Gap mmol/L BUN (9-20) mg/dL Creatinine (0.66-1.25) mg/dL Est GFR (CKD-EPI)AfAm (>60 ml/min/1.73 sqM) Est GFR (CKD-EPI)NonAf (>60 ml/min/1.73 sqM) Glucose (74-99) mg/dL Lactic Ac Sepsis Rflx Plasma Lactic Acid Caden 2.1 H* (0.7-2.0) mmol/L Calcium (8.4-10.2) mg/dL Magnesium (1.6-2.3) mg/dL Total Bilirubin (0.2-1.3) mg/dL AST (17-59) U/L ALT (4-49) U/L Alkaline Phosphatase (38-126) U/L Troponin I 0.040 H* (0.000-0.034) ng/mL NT-Pro-B Natriuret Pep 4190 pg/mL Total Protein (6.3-8.2) g/dL Albumin (3.5-5.0) g/dL Urine Color Urine Appearance (Clear) Urine pH (5.0-8.0) Ur Specific [place] (1.001-1.035) Urine Protein (Negative) Urine Glucose (UA) (Negative) Urine Ketones (Negative) Urine Blood (Negative) Urine Nitrite (Negative) Urine Bilirubin (Negative) Urine Urobilinogen (<2.0) mg/dL Ur Leukocyte Esterase (Negative) Urine RBC (0-5) /hpf Urine WBC (0-5) /hpf Amorphous Sediment (None) /hpf Urine Bacteria (None) /hpf Hyaline Casts (0-2) /lpf Urine Mucus (None) /hpf Coronavirus (PCR) (Not Detectd) 07/18/20 07/18/20 07/18/20 Range/Units 10:54 11:38 12:20 WBC (3.8-10.6) k/uL RBC (4.30-5.90) m/uL Hgb (13.0-17.5) gm/dL Hct (39.0-53.0) % MCV (80.0-100.0) fL MCH (25.0-35.0) pg MCHC (31.0-37.0) g/dL RDW (11.5-15.5) % Plt Count (150-450) k/uL MPV Neutrophils % % Lymphocytes % % Monocytes % % Eosinophils % % Basophils % % Neutrophils # (1.3-7.7) k/uL Lymphocytes # (1.0-4.8) k/uL Monocytes # (0-1.0) k/uL Eosinophils # (0-0.7) k/uL Basophils # (0-0.2) k/uL Hypochromasia Anisocytosis PT (9.0-12.0) sec INR (<1.2) APTT (22.0-30.0) sec D-Dimer (<0.60) mg/L FEU Sodium (137-145) mmol/L Potassium (3.5-5.1) mmol/L Chloride (98-107) mmol/L Carbon Dioxide (22-30) mmol/L Anion Gap mmol/L BUN (9-20) mg/dL Creatinine (0.66-1.25) mg/dL Est GFR (CKD-EPI)AfAm (>60 ml/min/1.73 sqM) Est GFR (CKD-EPI)NonAf (>60 ml/min/1.73 sqM) Glucose (74-99) mg/dL Lactic Ac Sepsis Rflx Y Plasma Lactic Acid Caden (0.7-2.0) mmol/L Calcium (8.4-10.2) mg/dL Magnesium (1.6-2.3) mg/dL Total Bilirubin (0.2-1.3) mg/dL AST (17-59) U/L ALT (4-49) U/L Alkaline Phosphatase (38-126) U/L Troponin I (0.000-0.034) ng/mL NT-Pro-B Natriuret Pep pg/mL Total Protein (6.3-8.2) g/dL Albumin (3.5-5.0) g/dL Urine Color Dark Brown Urine Appearance Cloudy (Clear) Urine pH 5.0 (5.0-8.0) Ur Specific [place] 1.028 (1.001-1.035) Urine Protein 1+ H (Negative) Urine Glucose (UA) Trace H (Negative) Urine Ketones Trace H (Negative) Urine Blood Small H (Negative) Urine Nitrite Negative (Negative) Urine Bilirubin 1+ H (Negative) Urine Urobilinogen <2.0 (<2.0) mg/dL Ur Leukocyte Esterase Trace H (Negative) Urine RBC 4 (0-5) /hpf Urine WBC 10 H (0-5) /hpf Amorphous Sediment Rare H (None) /hpf Urine Bacteria Rare H (None) /hpf Hyaline Casts 11 H (0-2) /lpf Urine Mucus Rare H (None) /hpf Coronavirus (PCR) Not Detected (Not Detectd) Critical Care Time Critical Care Time: Yes Total Critical Care Time: 35 <Fco Tinajero - Last Filed: 07/18/20 13:28> Disposition Is patient prescribed a controlled substance at d/c from ED?: No Time of Disposition: 13:15 Decision to Admit Reason: Admit from EC Decision Date: 07/18/20 Decision Time: 13:16 <Arlette Doyle - Last Filed: 07/18/20 13:14> <Fco Tinajero - Last Filed: 07/18/20 13:28> Clinical Impression: Acute renal failure, Pneumonia, Pleural effusion, Leg swelling, Dyspnea, Passes no urine, Hypomagnesemia, Hypotension, Leukocytosis Disposition: ADMITTED IP TO THIS [facility] Condition: Serious Referrals: Mohsen Morris DO [Primary Care Provider] - 1-2 days
[2020-07-18 10:40] LABS: Anisocytosis Slight; Basophils # (A) 0.1 k/uL (0-0.2); Basophils % (A) 1 %; Eosinophils # (A) 0.7 k/uL (0-0.7); Eosinophils % (A) 5 %; HCT 33.5 % (39.0-53.0); HGB 10.3 gm/dL (13.0-17.5); Hypochromasia Marked; Lymphocytes # (A) 1.6 k/uL (1.0-4.8); Lymphocytes % (A) 10 %; MCH 26.9 pg (25.0-35.0); MCHC 30.8 g/dL (31.0-37.0); MCV 87.5 fL (80.0-100.0); Mean Platelet Volume 8.8; Monocytes # (A) 0.5 k/uL (0-1.0); Monocytes % (A) 4 %; Neutrophils # (A) 12.1 k/uL (1.3-7.7); Neutrophils % (A) 79 %; Platelet Count 262 k/uL (150-450); RBC 3.83 m/uL (4.30-5.90); RDW 17.4 % (11.5-15.5); WBC 15.3 k/uL (3.8-10.6)
[2020-07-18 10:49] LABS: Albumin 2.8 g/dL (3.5-5.0); Magnesium 2.2 mg/dL (1.6-2.3); Potassium 3.9 mmol/L (3.5-5.1); Total Bilirubin 0.7 mg/dL (0.2-1.3); Total Protein 6.2 g/dL (6.3-8.2)
[2020-07-18 10:53] LABS: INR 1.2 (<1.2); Partial Thromboplastin Time 27.6 sec (22.0-30.0); Prothrombin Time 12.4 sec (9.0-12.0)
--- NOTE | 2020-07-18 11:42 | US ---
EXAMINATION TYPE: US venous doppler duplex LE LT DATE OF EXAM: 07/18/2020 10:29 AM COMPARISON: NONE CLINICAL HISTORY: swelling. SIDE PERFORMED: Left TECHNIQUE: The lower extremity deep venous system is examined utilizing real time linear array sonog deborah with graded compression, doppler sonography and color-flow sonography. VESSELS IMAGED: Common Femoral Vein Deep Femoral Vein Greater Saphenous Vein * Femoral Vein Popliteal Vein Small Saphenous Vein * Proximal Calf Veins (* superficial vessels) Rouleaux flow noted throughout leg. Left Leg: Currently appears negative for DVT. Grayscale, color doppler, spectral doppler imaging performed of the deep veins of the left lower extr emity. There is normal flow, compressibility, vascular waveforms. IMPRESSION: No ultrasound evidence for acute DVT in left lower extremity.
--- NOTE | 2020-07-18 11:44 | US ---
EXAMINATION TYPE: US renals and bladder DATE OF EXAM: 07/18/2020 COMPARISON: NONE CLINICAL HISTORY: IKE. EXAM MEASUREMENTS: Right Kidney: 14.4 x 6.1 x 6.4 cm Left Kidney: 14.0 x 6.4 x 7.8 cm Right Kidney: No hydronephrosis or masses seen Left Kidney: exophytic cyst upper pole measures 3.9 x 4.1 x 4.6 cm Bladder: wnl Bilateral Jets seen: No There is no evidence for hydronephrosis at this point in time. No nephrolithiasis is seen. Technolog ist marked 4.1 cm exophytic simple appearing thin-walled cyst upper pole left kidney. The urinary bl adder is satisfactorily distended. Bilateral ureteral jets are not seen. IMPRESSION: No hydronephrosis is noted bilaterally.
[2020-07-18] MEDS ORDERED: LEVOFLOXACIN 750MG-D5W PMX 750 MG in DEXTROSE/WATER 1 150ML.BAG IVPB STA (11:45)
[2020-07-18] MEDS ORDERED: PIPERACILLIN-TAZOBACTAM 3.375 GM in SODIUM CHLORIDE 0.9% 100 ML IVPB STA (11:46)
--- NOTE | 2020-07-18 12:00 | XR ---
EXAMINATION TYPE: XR chest 2V DATE OF EXAM: 07/18/2020 COMPARISON: Chest x-ray 4 days ago on older studies. Most recent CT December 30, 2019 HISTORY: History of rheumatoid lung disease. Shortness of breath. TECHNIQUE: Frontal and lateral views of the chest are obtained. FINDINGS: Persistent azygos lobe/fissure. Osseous structures remain intact. Persistent small sized p osterior bilateral pleural spaces containing air and fluid left slightly larger than right seen best on lateral x-ray. Background cardiomegaly and chronic parenchymal changes with increasing bilateral o pacities. IMPRESSION: Worsening bilateral edema and/or infiltrates, correlate for worsening CHF exacerbation o r bilateral acute infectious spread or progression. Background pleural collections containing air and fluid posterior lung bases is presumed product of rheumatoid disease. Correlate clinically.
[2020-07-18] MEDS ORDERED: NALOXONE 0.4 MG/ML 1 ML VIAL IV PRN (12:41)
[2020-07-18 12:44] LABS: Amorphous Sediment,Urine Rare /hpf; Appearance,Urine Cloudy (Clear); Bacteria,Urine Rare /hpf; Bilirubin,Urine 1+ (Negative); Blood,Urine Small (Negative); Color,Urine Dark Brown; Glucose,Urine (UA) Trace (Negative); Hyaline Casts,Urine 11 /lpf (0-2); Ketones,Urine Trace (Negative); Leukocyte Esterase,Urine Trace (Negative); Mucus,Urine Rare /hpf; Nitrite,Urine Negative (Negative); Protein,Urine 1+ (Negative); RBC,Urine 4 /hpf (0-5); Specific Gravity,Urine 1.028 (1.001-1.035); Urobilinogen,Urine <2.0 mg/dL (<2.0); WBC,Urine 10 /hpf (0-5)
[2020-07-18] MEDS: NOREPINEPHRINE 4 MG in SODIUM CHLORIDE 0.9% 250 ML IV ONE ×2 (12:45→20:07)
[2020-07-18] MEDS ORDERED: SODIUM CHLORIDE 0.9% 2,000 ML IV ONE (14:15)
[2020-07-18] MEDS ORDERED: IPRATROPIUM-ALBUTEROL 3 ML NEB INHALATION PRN (14:16)
[2020-07-18] MEDS ORDERED: HEPARIN SODIUM 1,000 UN/ML (10ML VL) ONE (15:00)
[2020-07-18] MEDS ORDERED: LIDOCAINE 1% INJ 10MG/ML (20 ML MDV) ONE (15:00)
[2020-07-18 15:13] LABS: Glucose,Whole Blood 105 mg/dL (75-99)
--- NOTE | 2020-07-18 15:50 | P.GSCN ---
History of Present Illness History of present illness: 60-year-old white male, patient came with history of shortness of breath history of pneumonia. Patient also has history of hypertension patient came with began of 35 and creatinine was 11.38 hours consulted for placement of a dialysis catheter Neck examination neck is supple no bruit appreciated Chest patient has a crackles at the border both lung bases first and second sound is normal Abdomen is soft nontender Vascular examination femorals are palpable bilateral Impression is acute chronic renal failure plan is placement dialysis catheter risk and complication discussed Past Medical History Past Medical History: Deep Vein Thrombosis (DVT), Hypertension, Rheumatoid Arthritis (RA), Thyroid Disorder Additional Past Medical History / Comment(s): Mult Rt foot infections after surgery, last time 05/2019, had PICC Line for AB and developed bloot clot. Hx kidney stones. 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 History of Any Multi-Drug Resistant Organisms: None Reported Past Surgical History: Back Surgery, Tonsillectomy Additional Past Surgical History / Comment(s): Right foot surgery, repair herni ated disc, plate removed rt foot. CTR kim,bronchoscopy X4 Past Anesthesia/Blood Transfusion Reactions: Previous Problems w/ Anesthesia Additional Past Anesthesia/Blood Transfusion Reaction / Comm: slow to awaken x1. Past Psychological History: No Psychological Hx Reported Smoking Status: Former smoker Past Alcohol Use History: None Reported Additional Past Alcohol Use History / Comment(s): QUIT SMOKING 2003, smoked 15 years, 1 - 1 1/2 ppd Past Drug Use History: None Reported - Past Family History Mother Family Medical History: Cancer Additional Family Medical History / Comment(s): lung with mets brain Father Family Medical History: No Reported History Additional Family Medical History / Comment(s): states, "he just ." Medications and Allergies Home Medications Medication Instructions Recorded Confirmed Type Levothyroxine Sodium [Synthroid] 150 mcg PO DAILY 10/17/16 07/18/20 History Albuterol Inhaler [Ventolin Hfa 2 puff INHALATION RT-QID PRN 12/30/19 07/18/20 History Inhaler] Losartan-Hctz 50-12.5 mg [Hyzaar 1 tab PO DAILY 12/30/19 07/18/20 History 50-12.5] Metoprolol Tartrate [Lopressor] 50 mg PO HS 12/30/19 07/18/20 History Ascorbic Acid [Vitamin C] 2,000 mg PO HS 07/13/20 07/18/20 History Cholecalciferol [Vitamin D3 (25 2,000 unit PO HS 07/13/20 07/18/20 History Mcg = 1000 Iu)] Ipratropium-Albuterol Nebulize 3 ml INHALATION RT-QID PRN 07/13/20 07/18/20 History [Duoneb 0.5 mg-3 mg/3 ml Soln] Azithromycin [Zithromax] 500 mg PO DAILY 10 Days #10 tab 07/14/20 07/18/20 Rx Cefdinir [Omnicef] 300 mg PO Q12HR 10 Days #20 capsule 07/14/20 07/18/20 Rx Allergies Allergy/AdvReac Type Severity Reaction Status Date / Time No Known Allergies Allergy Verified 07/18/20 10:37 Surgical - Exam Vital Signs Temp Pulse Resp BP Pulse Ox 97.5 F L 107 H 18 99/56 89 L 07/18/20 10:05 07/18/20 10:05 07/18/20 10:05 07/18/20 10:05 07/18/20 10:05 Results - Labs 07/18/20 10:32 07/18/20 10:32 Abnormal Lab Results - Last 24 Hours (Table) 07/18/20 07/18/20 07/18/20 Range/Units 10:32 10:32 10:32 WBC 15.3 H (3.8-10.6) k/uL RBC 3.83 L (4.30-5.90) m/uL Hgb 10.3 L (13.0-17.5) gm/dL Hct 33.5 L (39.0-53.0) % MCHC 30.8 L (31.0-37.0) g/dL RDW 17.4 H (11.5-15.5) % Neutrophils # 12.1 H (1.3-7.7) k/uL PT 12.4 H (9.0-12.0) sec INR 1.2 H (<1.2) D-Dimer 3.20 H (<0.60) mg/L FEU Sodium 135 L (137-145) mmol/L Carbon Dioxide 18 L (22-30) mmol/L BUN 35 H (9-20) mg/dL Creatinine 11.38 H* (0.66-1.25) mg/dL Glucose 106 H (74-99) mg/dL POC Glucose (mg/dL) (75-99) mg/dL Plasma Lactic Acid Caden (0.7-2.0) mmol/L Calcium 8.0 L (8.4-10.2) mg/dL Troponin I (0.000-0.034) ng/mL Total Protein 6.2 L (6.3-8.2) g/dL Albumin 2.8 L (3.5-5.0) g/dL Urine Protein (Negative) Urine Glucose (UA) (Negative) Urine Ketones (Negative) Urine Blood (Negative) Urine Bilirubin (Negative) Ur Leukocyte Esterase (Negative) Urine WBC (0-5) /hpf Amorphous Sediment (None) /hpf Urine Bacteria (None) /hpf Hyaline Casts (0-2) /lpf Urine Mucus (None) /hpf 07/18/20 07/18/20 07/18/20 Range/Units 10:32 10:32 12:20 WBC (3.8-10.6) k/uL RBC (4.30-5.90) m/uL Hgb (13.0-17.5) gm/dL Hct (39.0-53.0) % MCHC (31.0-37.0) g/dL RDW (11.5-15.5) % Neutrophils # (1.3-7.7) k/uL PT (9.0-12.0) sec INR (<1.2) D-Dimer (<0.60) mg/L FEU Sodium (137-145) mmol/L Carbon Dioxide (22-30) mmol/L BUN (9-20) mg/dL Creatinine (0.66-1.25) mg/dL Glucose (74-99) mg/dL POC Glucose (mg/dL) (75-99) mg/dL Plasma Lactic Acid Caden 2.1 H* (0.7-2.0) mmol/L Calcium (8.4-10.2) mg/dL Troponin I 0.040 H* (0.000-0.034) ng/mL Total Protein (6.3-8.2) g/dL Albumin (3.5-5.0) g/dL Urine Protein 1+ H (Negative) Urine Glucose (UA) Trace H (Negative) Urine Ketones Trace H (Negative) Urine Blood Small H (Negative) Urine Bilirubin 1+ H (Negative) Ur Leukocyte Esterase Trace H (Negative) Urine WBC 10 H (0-5) /hpf Amorphous Sediment Rare H (None) /hpf Urine Bacteria Rare H (None) /hpf Hyaline Casts 11 H (0-2) /lpf Urine Mucus Rare H (None) /hpf 07/18/20 Range/Units 15:11 WBC (3.8-10.6) k/uL RBC (4.30-5.90) m/uL Hgb (13.0-17.5) gm/dL Hct (39.0-53.0) % MCHC (31.0-37.0) g/dL RDW (11.5-15.5) % Neutrophils # (1.3-7.7) k/uL PT (9.0-12.0) sec INR (<1.2) D-Dimer (<0.60) mg/L FEU Sodium (137-145) mmol/L Carbon Dioxide (22-30) mmol/L BUN (9-20) mg/dL Creatinine (0.66-1.25) mg/dL Glucose (74-99) mg/dL POC Glucose (mg/dL) 105 H (75-99) mg/dL Plasma Lactic Acid Caden (0.7-2.0) mmol/L Calcium (8.4-10.2) mg/dL Troponin I (0.000-0.034) ng/mL Total Protein (6.3-8.2) g/dL Albumin (3.5-5.0) g/dL Urine Protein (Negative) Urine Glucose (UA) (Negative) Urine Ketones (Negative) Urine Blood (Negative) Urine Bilirubin (Negative) Ur Leukocyte Esterase (Negative) Urine WBC (0-5) /hpf Amorphous Sediment (None) /hpf Urine Bacteria (None) /hpf Hyaline Casts (0-2) /lpf Urine Mucus (None) /hpf Diabetes panel 07/18/20 Range/Units 10:32 Sodium 135 L (137-145) mmol/L Potassium 3.9 (3.5-5.1) mmol/L Chloride 102 (98-107) mmol/L Carbon Dioxide 18 L (22-30) mmol/L BUN 35 H (9-20) mg/dL Creatinine 11.38 H* (0.66-1.25) mg/dL Glucose 106 H (74-99) mg/dL Calcium 8.0 L (8.4-10.2) mg/dL AST 30 (17-59) U/L ALT 14 (4-49) U/L Alkaline Phosphatase 116 (38-126) U/L Total Protein 6.2 L (6.3-8.2) g/dL Albumin 2.8 L (3.5-5.0) g/dL Calcium panel 07/18/20 Range/Units 10:32 Calcium 8.0 L (8.4-10.2) mg/dL Albumin 2.8 L (3.5-5.0) g/dL Pituitary panel 07/18/20 Range/Units 10:32 Sodium 135 L (137-145) mmol/L Potassium 3.9 (3.5-5.1) mmol/L Chloride 102 (98-107) mmol/L Carbon Dioxide 18 L (22-30) mmol/L BUN 35 H (9-20) mg/dL Creatinine 11.38 H* (0.66-1.25) mg/dL Glucose 106 H (74-99) mg/dL Calcium 8.0 L (8.4-10.2) mg/dL Adrenal panel 07/18/20 Range/Units 10:32 Sodium 135 L (137-145) mmol/L Potassium 3.9 (3.5-5.1) mmol/L Chloride 102 (98-107) mmol/L Carbon Dioxide 18 L (22-30) mmol/L BUN 35 H (9-20) mg/dL Creatinine 11.38 H* (0.66-1.25) mg/dL Glucose 106 H (74-99) mg/dL Calcium 8.0 L (8.4-10.2) mg/dL Total Bilirubin 0.7 (0.2-1.3) mg/dL AST 30 (17-59) U/L ALT 14 (4-49) U/L Alkaline Phosphatase 116 (38-126) U/L Total Protein 6.2 L (6.3-8.2) g/dL Albumin 2.8 L (3.5-5.0) g/dL
--- NOTE | 2020-07-18 15:51 | P.PCN ---
Description of Procedure: Preoperative diagnoses is acute chronic renal failure with be on of 35 and creatinine of 11.38 posterior diabetes same Procedure patient was seen in the emergency room right groin were prepped and draped applied usual sterile manner. 1% lidocaine for an infected the right groin ultrasound-guided micropuncture introducer right femoral vein. After that 4-Bahamian dilator advanced on the top of guidewire then we passed a regular guidewire without any resistance dilator was advanced and then we placed a dialysis catheter free flow noted flushed with heparin saline and Hep-Lock secured with 3-0 nylon patient are to the procedure well
[2020-07-18] MEDS ORDERED: HYDROcodone/APAP 5-325MG 1 EACH TAB PO PRN (16:57)
--- NOTE | 2020-07-18 18:17 | P.HPIM ---
History of Present Illness H&P Date: 07/18/20 Chief Complaint: Generalized weakness fatigue This is a 60-year-old obese male with past medical history of dyslipidemia hypertension hypertensive cardiovascular disease also has a history of the rheumatoid arthritis with recent pneumonia, came into the hospital with increas ing shortness of breath high doesn't fatigue, it appears that patient presented with pneumonia a week ago was treated with outpatient antibiotics and steroids symptoms did not resolve but continued to get worse, he start retaining more fluids increased swelling of the lower extremity has been noted, his significant labs were elevated BUN and creatinine nephrology has been consulted along with vascular surgery to put hemodialysis catheter and start hemodialysis currently at the time of evaluation patient is undergoing hemodialysis he is on small dose 7 mics of levo fed to keep blood pressure/map over 65-75, Review of Systems All systems: negative Past Medical History Past Medical History: Deep Vein Thrombosis (DVT), Hypertension, Rheumatoid Arthritis (RA), Thyroid Disorder Additional Past Medical History / Comment(s): Mult Rt foot infections after surgery, last time 05/2019, had PICC Line for AB and developed bloot clot. Hx kidney stones. 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 History of Any Multi-Drug Resistant Organisms: None Reported Past Surgical History: Back Surgery, Tonsillectomy Additional Past Surgical History / Comment(s): Right foot surgery, repair domitila iated disc, plate removed rt foot. CTR kim,bronchoscopy X4 Past Anesthesia/Blood Transfusion Reactions: Previous Problems w/ Anesthesia Additional Past Anesthesia/Blood Transfusion Reaction / Comment(s): slow to awaken x1. Past Psychological History: No Psychological Hx Reported Smoking Status: Former smoker Past Alcohol Use History: None Reported Additional Past Alcohol Use History / Comment(s): QUIT SMOKING 2003, smoked 15 years, 1 - 1 1/2 ppd Past Drug Use History: None Reported - Past Family History Mother Family Medical History: Cancer Additional Family Medical History / Comment(s): lung with mets brain Father Family Medical History: No Reported History Additional Family Medical History / Comment(s): states, "he just ." Medications and Allergies Home Medications Medication Instructions Recorded Confirmed Type Levothyroxine Sodium [Synthroid] 150 mcg PO DAILY 10/17/16 07/18/20 History Albuterol Inhaler [Ventolin Hfa 2 puff INHALATION RT-QID PRN 12/30/19 07/18/20 History Inhaler] Losartan-Hctz 50-12.5 mg [Hyzaar 1 tab PO DAILY 12/30/19 07/18/20 History 50-12.5] Metoprolol Tartrate [Lopressor] 50 mg PO HS 12/30/19 07/18/20 History Ascorbic Acid [Vitamin C] 2,000 mg PO HS 07/13/20 07/18/20 History Cholecalciferol [Vitamin D3 (25 2,000 unit PO HS 07/13/20 07/18/20 History Mcg = 1000 Iu)] Ipratropium-Albuterol Nebulize 3 ml INHALATION RT-QID PRN 07/13/20 07/18/20 History [Duoneb 0.5 mg-3 mg/3 ml Soln] Azithromycin [Zithromax] 500 mg PO DAILY 10 Days #10 tab 07/14/20 07/18/20 Rx Cefdinir [Omnicef] 300 mg PO Q12HR 10 Days #20 capsule 07/14/20 07/18/20 Rx Allergies Allergy/AdvReac Type Severity Reaction Status Date / Time No Known Allergies Allergy Verified 07/18/20 10:37 Physical Exam Vitals: Vital Signs Temp Pulse Resp BP Pulse Ox 07/18/20 17:30 104 H 25 H 81/46 96 07/18/20 17:00 105 H 19 102/70 93 L 07/18/20 16:30 101 H 26 H 97/52 92 L 07/18/20 16:00 97.7 F 98 18 84/48 94 L 07/18/20 15:33 97.2 F L 07/18/20 15:30 95 22 103/69 98 07/18/20 15:00 97.2 F L 97 22 94/82 96 07/18/20 14:52 98.6 F 96 20 94/68 97 07/18/20 13:58 96 22 95/52 96 07/18/20 12:57 98 20 74/51 96 07/18/20 12:16 98 22 91/52 96 07/18/20 11:33 96 18 75/48 96 07/18/20 10:05 97.5 F L 107 H 18 99/56 89 L Intake and Output 07/18/20 07/18/20 07/18/20 06:59 14:59 22:59 Intake Total 100 518.001 Output Total 110 Balance 100 408.001 Intake: IV 100 400 Sodium Chloride 0.9% 1, 100 400 000 ml @ 75 mls/hr IV . [id number] STA Rx#:[id number] Intake, IV Titration 118.001 Amount Norepinephrine 4 mg In 118.001 Sodium Chloride 0.9% 250 ml @ 0.05 MCG/KG/MIN 20. 738 mls/hr IV .[id number] ONE Rx#:[id number] Output: Urine 110 Other: Voiding Method Indwelling Catheter Weight 108.862 kg 110.7 kg - Constitutional General appearance: morbidly obese - EENT Eyes: EOMI, PERRLA Ears: bilateral: normal - Neck Carotids: bilateral: upstroke normal Thyroid: bilateral: normal size - Respiratory Respiratory: bilateral: diminished - Cardiovascular Rhythm: regular Heart sounds: normal: S1, S2 - Gastrointestinal General gastrointestinal: distended - Integumentary Integumentary: decreased turgor - Neurologic Neurologic: CNII-XII intact - Musculoskeletal Musculoskeletal: gait normal, generalized weakness, strength equal bilaterally - Psychiatric Psychiatric: A&O x's 3, appropriate affect, intact judgment & insight Results CBC & Chem 7: 07/18/20 10:32 07/18/20 10:32 Labs: Abnormal Lab Results - Last 24 Hours (Table) 07/18/20 07/18/20 07/18/20 Range/Units 10:32 10:32 10:32 WBC 15.3 H (3.8-10.6) k/uL RBC 3.83 L (4.30-5.90) m/uL Hgb 10.3 L (13.0-17.5) gm/dL Hct 33.5 L (39.0-53.0) % MCHC 30.8 L (31.0-37.0) g/dL RDW 17.4 H (11.5-15.5) % Neutrophils # 12.1 H (1.3-7.7) k/uL PT 12.4 H (9.0-12.0) sec INR 1.2 H (<1.2) D-Dimer 3.20 H (<0.60) mg/L FEU Sodium 135 L (137-145) mmol/L Carbon Dioxide 18 L (22-30) mmol/L BUN 35 H (9-20) mg/dL Creatinine 11.38 H* (0.66-1.25) mg/dL Glucose 106 H (74-99) mg/dL POC Glucose (mg/dL) (75-99) mg/dL Plasma Lactic Acid Caden (0.7-2.0) mmol/L Calcium 8.0 L (8.4-10.2) mg/dL Troponin I (0.000-0.034) ng/mL Total Protein 6.2 L (6.3-8.2) g/dL Albumin 2.8 L (3.5-5.0) g/dL Urine Protein (Negative) Urine Glucose (UA) (Negative) Urine Ketones (Negative) Urine Blood (Negative) Urine Bilirubin (Negative) Ur Leukocyte Esterase (Negative) Urine WBC (0-5) /hpf Amorphous Sediment (None) /hpf Urine Bacteria (None) /hpf Hyaline Casts (0-2) /lpf Urine Mucus (None) /hpf 07/18/20 07/18/20 07/18/20 Range/Units 10:32 10:32 12:20 WBC (3.8-10.6) k/uL RBC (4.30-5.90) m/uL Hgb (13.0-17.5) gm/dL Hct (39.0-53.0) % MCHC (31.0-37.0) g/dL RDW (11.5-15.5) % Neutrophils # (1.3-7.7) k/uL PT (9.0-12.0) sec INR (<1.2) D-Dimer (<0.60) mg/L FEU Sodium (137-145) mmol/L Carbon Dioxide (22-30) mmol/L BUN (9-20) mg/dL Creatinine (0.66-1.25) mg/dL Glucose (74-99) mg/dL POC Glucose (mg/dL) (75-99) mg/dL Plasma Lactic Acid Caden 2.1 H* (0.7-2.0) mmol/L Calcium (8.4-10.2) mg/dL Troponin I 0.040 H* (0.000-0.034) ng/mL Total Protein (6.3-8.2) g/dL Albumin (3.5-5.0) g/dL Urine Protein 1+ H (Negative) Urine Glucose (UA) Trace H (Negative) Urine Ketones Trace H (Negative) Urine Blood Small H (Negative) Urine Bilirubin 1+ H (Negative) Ur Leukocyte Esterase Trace H (Negative) Urine WBC 10 H (0-5) /hpf Amorphous Sediment Rare H (None) /hpf Urine Bacteria Rare H (None) /hpf Hyaline Casts 11 H (0-2) /lpf Urine Mucus Rare H (None) /hpf 07/18/20 Range/Units 15:11 WBC (3.8-10.6) k/uL RBC (4.30-5.90) m/uL Hgb (13.0-17.5) gm/dL Hct (39.0-53.0) % MCHC (31.0-37.0) g/dL RDW (11.5-15.5) % Neutrophils # (1.3-7.7) k/uL PT (9.0-12.0) sec INR (<1.2) D-Dimer (<0.60) mg/L FEU Sodium (137-145) mmol/L Carbon Dioxide (22-30) mmol/L BUN (9-20) mg/dL Creatinine (0.66-1.25) mg/dL Glucose (74-99) mg/dL POC Glucose (mg/dL) 105 H (75-99) mg/dL Plasma Lactic Acid Caden (0.7-2.0) mmol/L Calcium (8.4-10.2) mg/dL Troponin I (0.000-0.034) ng/mL Total Protein (6.3-8.2) g/dL Albumin (3.5-5.0) g/dL Urine Protein (Negative) Urine Glucose (UA) (Negative) Urine Ketones (Negative) Urine Blood (Negative) Urine Bilirubin (Negative) Ur Leukocyte Esterase (Negative) Urine WBC (0-5) /hpf Amorphous Sediment (None) /hpf Urine Bacteria (None) /hpf Hyaline Casts (0-2) /lpf Urine Mucus (None) /hpf Chest x-ray: report reviewed, image reviewed Thrombosis Risk Factor Assmnt - Choose All That Apply Any of the Below Risk Factors Present?: Yes Each Factor Represents 1 point: Age 41-60 years Other Risk Factors: Yes Each Risk Factor Represents 2 Points: Central venous access Other congenital or acquired thrombophilia - If yes, enter type in comment: No Thrombosis Risk Factor Assessment Total Risk Factor Score: 3 Thrombosis Risk Factor Assessment Level: Moderate Risk Assessment and Plan Assessment: Acute renal failure Hypotension Recent pneumonia COPD Hypertension hypertensive cardiovascular disease Plan: Hemodialysis as planned Vasopressors as needed Repeat labs in the morning including chest x-ray Consult vascular surgery renal and cutter down Time with Patient: Greater than 30
[2020-07-18] MEDS: methylPREDNISolone SOD SUCCI 40 MG/ML 1 ML VIAL IV SCH (20:02)
[2020-07-18] MEDS: ASCORBIC ACID 500 MG TAB PO SCH (20:02)
[2020-07-18] MEDS: IPRATROPIUM-ALBUTEROL 3 ML NEB INHALATION SCH (20:27)
[2020-07-19] MEDS: NOREPINEPHRINE 4 MG in SODIUM CHLORIDE 0.9% 250 ML IV SCH ×5 (03:48→20:22)
[2020-07-19 04:27] LABS: Calcium 7.9 mg/dL (8.4-10.2); Potassium 5.2 mmol/L (3.5-5.1)
[2020-07-19 04:43] LABS: Hepatitis B Surface AB- Quant 3.5 mIU/mL; Hepatitis B Surface Antibody Non-Reactive (Non-Reactive); Hepatitis B Surface Antigen Non-Reactive (Non-Reactive)
[2020-07-19 05:26] LABS: Anisocytosis Slight; Basophils # (A) 0.1 k/uL (0-0.2); Basophils % (A) 1 %; Eosinophils % (A) 0 %; HCT 36.2 % (39.0-53.0); HGB 10.6 gm/dL (13.0-17.5); Hypochromasia Marked; Lymphocytes # (A) 0.4 k/uL (1.0-4.8); Lymphocytes % (A) 2 %; MCH 26.9 pg (25.0-35.0); MCHC 29.3 g/dL (31.0-37.0); MCV 91.7 fL (80.0-100.0); Mean Platelet Volume 9.4; Monocytes # (A) 0.2 k/uL (0-1.0); Monocytes % (A) 1 %; Neutrophils # (A) 19.2 k/uL (1.3-7.7); Neutrophils % (A) 96 %; Platelet Count 308 k/uL (150-450); RBC 3.94 m/uL (4.30-5.90); RDW 17.4 % (11.5-15.5); WBC 20.1 k/uL (3.8-10.6)
[2020-07-19] MEDS: LEVOTHYROXINE 75 MCG TAB PO SCH (06:35)
--- NOTE | 2020-07-19 07:40 | P.PN ---
Subjective Progress Note Date: 07/19/20 A 60-year-old male patient who came into the emergency department with worsening shortness of breath. The patient also had diminished urine output and he was getting progressively more dry and he was not eating or drinking much over the past few days. He cannot even remember the last time he urinated. The patient denied having any fever. No reported cough. He did have some exertional dyspnea and shortness of breath whenever he laid down flat. He also noted that his legs are somewhat more swollen than the usual. Denied having any chest pain. No jaw pain. No back pain. No nausea. No vomiting. No abdominal pain. No altered mentation. The patient when he came into the emergency, he was quite hypoxic and was unable to speak up. This is and he was placed on 5 L about 2 by nasal cannula. Noted the patient was in the hospital back in 07/14/2020 and at that time the patient was seen by our service. He came in for symptoms of generalized weakness and fatigue and not feeling well. The patient has been known to our practice and he was seen by Dr. vaughn and the patient was ruled out for coronary bypass/Covid 19 infection. His chest x-ray showed some patchy perihilar and basilar pulmonary infiltrates compatible with pneumonia. The patient was discharged home with the next 24 hours on a combination of Omnicef and Zithromax and the patient was also given a prednisone burst taper. Nevertheless, it seems that his condition has progressed. Note that the patient is known to have rheumatoid arthritis and previous history of rheumatoid lung disease in addition to previous history of a loculated empyema requiring a chest tube placement back in January 2020. This was attributed to Streptococcus pneumonia. He has history of hypertension, hypothyroidism and previous history of DVT. He has had multiple bronchoscopies in the past and the last bronchoscopy was done in May 2070 and at that time the patient had some Inessa albicans. Note that the current admission showed significantly abnormal blood work. The patient had seen a bicarb of 18 with an anion gap of 15. Creatinine was 11.3, lactic acid level was at 2.1 drop down to 1.6. Troponin was at 0.04, proBNP level was 4190. D-dimer is at 3.2. Correlation profile is within normal limits. The white cell count is at 15.3 with a hemoglobin of 10.3 and platelets are at 262. UA was also abnormal and showed +1 bilirubin, rare WBCs and bacteria and rare RBCs. There was hiding casts. Coronavirus, Covid 19 screening came back negative. The patient is being seen by nephrology. The patient is being considered for hemodialysis. The chest x-ray showed perihilar pulmonary infiltrates and bilateral pleural effusions and there is worsening and bilateral edema/infiltrate consistent with fluid overload. There is also an air-fluid level in the left lung base that was seen on previous chest x-rays. On 07/19/2020 the patient is currently in the intensive care unit. The patient got admitted to the ICU and the patient was given a session of hemodialysis. He has a temporary dialysis cath in his right femoral vein. A total of 1.5 L of fluid was ultrafiltrate that along with dialysis. On today's blood work, his creatinine is at 7.47 and his potassium level is at 5.2 and the sodium level is at 136. Serum bicarbonate of 15. His IV fluids are running at the rate of 100 mL an hour of normal saline. Urine output is improving. He was quite low overnight and currently is in the order of 10-20 mL an hour his UA did not indicate any potential infection. There was +1 bilirubin, 10 WBCs, 4 RBCs. His lactic acid level is down to 1.6. His white cell count is at 20.1 with a hemoglobin of 10.6. He is resting comfortably in bed. Hemodynamically stable. He is requiring norepinephrine infusion which is running at 0.19 micrograms per kilogram per minute. I feel like his abdomen is slightly distended. Nevertheless, the patient although this is his normal abdominal distention and he denies having any nausea or emesis. His last bowel movement was few days back. Objective - Vital Signs Vital signs: Vital Signs Temp 99 F 07/19/20 04:00 Pulse 84 07/19/20 07:00 Resp 21 07/19/20 07:00 BP 116/75 07/19/20 07:00 Pulse Ox 94 L 07/19/20 07:00 Intake & Output 07/18/20 07/19/20 07/19/20 18:59 06:59 18:59 Intake Total 497.106 8240.747 Output Total 1910 435 Balance -797.068 4057.747 Weight 110.7 kg 112 kg Intake: IV 500 1300 .9 800 Sodium Chloride 0.9% 1, 500 500 000 ml @ 75 mls/hr IV . [id number] [facility] Rx#:[id number] Intake, IV Titration 167.150 484.747 Amount Norepinephrine 4 mg In 167.150 230.747 Sodium Chloride 0.9% 250 ml @ 0.05 MCG/KG/MIN 20. 738 mls/hr IV .[id number] [facility] Rx#:[id number] Norepinephrine 4 mg In 254 Sodium Chloride 0.9% 250 ml @ 0.05 MCG/KG/MIN 21. 088 mls/hr IV .[id number] [facility] Rx#:[id number] Hemodialysis 300 Output: Urine 110 435 Hemodialysis 1800 Other: Voiding Method Indwelling Catheter Indwelling Catheter - Exam GENERAL EXAM: Alert, very pleasant, 60-year-old white male, on 2 L about 2 by nasal cannula with pulse ox of 95% comfortable in no apparent distress. HEAD: Normocephalic/atraumatic. EYES: Normal reaction of pupils, equal size. Conjunctiva pink, sclera white. NOSE: Clear with pink turbinates. THROAT: No erythema or exudates. NECK: No masses, no JVD, no thyroid enlargement, no adenopathy. CHEST: No chest wall deformity. Symmetrical expansion. LUNGS: Equal air entry with some bibasilar crackles, no major wheezing or coughing or rhonchi CVS: Regular rate and rhythm, normal S1 and S2, no gallops, no murmurs, no rubs ABDOMEN: Soft, nontender. No hepatosplenomegaly, normal bowel sounds, no guarding or rigidity. Abdomen is slightly distended and tympanic on palpation. EXTREMITIES: No clubbing, no edema, no cyanosis, 2+ pulses and upper and lower extremities. MUSCULOSKELETAL: Muscle strength and tone normal. SPINE: No scoliosis or deformity SKIN: No rashes CENTRAL NERVOUS SYSTEM: Alert and oriented -3. No focal deficits, tone is normal in all 4 extremities. PSYCHIATRIC: Alert and oriented -3. Appropriate affect. Intact judgment and insight. - Labs CBC & Chem 7: 07/19/20 03:21 07/19/20 03:21 Labs: Abnormal Lab Results - Last 24 Hours (Table) 07/18/20 07/18/20 07/18/20 Range/Units 10:32 10:32 10:32 WBC 15.3 H (3.8-10.6) k/uL RBC 3.83 L (4.30-5.90) m/uL Hgb 10.3 L (13.0-17.5) gm/dL Hct 33.5 L (39.0-53.0) % MCHC 30.8 L (31.0-37.0) g/dL RDW 17.4 H (11.5-15.5) % Neutrophils # 12.1 H (1.3-7.7) k/uL Lymphocytes # (1.0-4.8) k/uL PT 12.4 H (9.0-12.0) sec INR 1.2 H (<1.2) D-Dimer 3.20 H (<0.60) mg/L FEU Sodium 135 L (137-145) mmol/L Potassium (3.5-5.1) mmol/L Carbon Dioxide 18 L (22-30) mmol/L BUN 35 H (9-20) mg/dL Creatinine 11.38 H* (0.66-1.25) mg/dL Glucose 106 H (74-99) mg/dL POC Glucose (mg/dL) (75-99) mg/dL Plasma Lactic Acid Caden (0.7-2.0) mmol/L Calcium 8.0 L (8.4-10.2) mg/dL Troponin I (0.000-0.034) ng/mL Total Protein 6.2 L (6.3-8.2) g/dL Albumin 2.8 L (3.5-5.0) g/dL Urine Protein (Negative) Urine Glucose (UA) (Negative) Urine Ketones (Negative) Urine Blood (Negative) Urine Bilirubin (Negative) Ur Leukocyte Esterase (Negative) Urine WBC (0-5) /hpf Amorphous Sediment (None) /hpf Urine Bacteria (None) /hpf Hyaline Casts (0-2) /lpf Urine Mucus (None) /hpf 07/18/20 07/18/20 07/18/20 Range/Units 10:32 10:32 12:20 WBC (3.8-10.6) k/uL RBC (4.30-5.90) m/uL Hgb (13.0-17.5) gm/dL Hct (39.0-53.0) % MCHC (31.0-37.0) g/dL RDW (11.5-15.5) % Neutrophils # (1.3-7.7) k/uL Lymphocytes # (1.0-4.8) k/uL PT (9.0-12.0) sec INR (<1.2) D-Dimer (<0.60) mg/L FEU Sodium (137-145) mmol/L Potassium (3.5-5.1) mmol/L Carbon Dioxide (22-30) mmol/L BUN (9-20) mg/dL Creatinine (0.66-1.25) mg/dL Glucose (74-99) mg/dL POC Glucose (mg/dL) (75-99) mg/dL Plasma Lactic Acid Caden 2.1 H* (0.7-2.0) mmol/L Calcium (8.4-10.2) mg/dL Troponin I 0.040 H* (0.000-0.034) ng/mL Total Protein (6.3-8.2) g/dL Albumin (3.5-5.0) g/dL Urine Protein 1+ H (Negative) Urine Glucose (UA) Trace H (Negative) Urine Ketones Trace H (Negative) Urine Blood Small H (Negative) Urine Bilirubin 1+ H (Negative) Ur Leukocyte Esterase Trace H (Negative) Urine WBC 10 H (0-5) /hpf Amorphous Sediment Rare H (None) /hpf Urine Bacteria Rare H (None) /hpf Hyaline Casts 11 H (0-2) /lpf Urine Mucus Rare H (None) /hpf 07/18/20 07/19/20 07/19/20 Range/Units 15:11 03:21 03:21 WBC 20.1 H (3.8-10.6) k/uL RBC 3.94 L (4.30-5.90) m/uL Hgb 10.6 L (13.0-17.5) gm/dL Hct 36.2 L (39.0-53.0) % MCHC 29.3 L (31.0-37.0) g/dL RDW 17.4 H (11.5-15.5) % Neutrophils # 19.2 H (1.3-7.7) k/uL Lymphocytes # 0.4 L (1.0-4.8) k/uL PT (9.0-12.0) sec INR (<1.2) D-Dimer (<0.60) mg/L FEU Sodium 136 L (137-145) mmol/L Potassium 5.2 H (3.5-5.1) mmol/L Carbon Dioxide 14 L (22-30) mmol/L BUN 26 H (9-20) mg/dL Creatinine 7.47 H* (0.66-1.25) mg/dL Glucose 163 H (74-99) mg/dL POC Glucose (mg/dL) 105 H (75-99) mg/dL Plasma Lactic Acid Caden (0.7-2.0) mmol/L Calcium 7.9 L (8.4-10.2) mg/dL Troponin I (0.000-0.034) ng/mL Total Protein (6.3-8.2) g/dL Albumin (3.5-5.0) g/dL Urine Protein (Negative) Urine Glucose (UA) (Negative) Urine Ketones (Negative) Urine Blood (Negative) Urine Bilirubin (Negative) Ur Leukocyte Esterase (Negative) Urine WBC (0-5) /hpf Amorphous Sediment (None) /hpf Urine Bacteria (None) /hpf Hyaline Casts (0-2) /lpf Urine Mucus (None) /hpf Assessment and Plan Plan: 1 acute kidney injury. The patient's creatinine was up to 11 and the patient is a component of metabolic acidosis and the creatinine is down to 7.47 and the serum bicarb is at 14. The patient had an ultrasound the kidneys that showed no evidence of any hydronephrosis. Consider ATN. No signs of uremia. The patient arrived to emergency department the patient was also hypoxemic and the patient was hypotensive. The patient is still on normal saline infusion. The patient underwent hemodialysis yesterday with 1.5 L of ultrafiltration. The patient had a temporary dialysis catheter in place. Urine output is improving. We are going to give him another session of hemodialysis today. 2 bilateral perihilar pulmonary infiltrates, consider interstitial edema versus pneumonia of the Covid 19 testing came back negative. 3 history of left lung empyema related to Streptococcus pneumonia back in December 2019 requiring insertion and subsequent removal of chest tube 4 air-fluid level involving the left lung base, consider ongoing fluid collecti on/abscess 5 acute hypoxemic respiratory failure currently on 2 L of oxygen by nasal cannula 6 hypotension, likely secondary to intravascular volume depletion/dehydration. . The patient remains on IV fluids at others an hour of normal saline and the patient is still requiring low-dose pressors. 7 rheumatoid arthritis history of rheumatoid lungs/fibrosis with previous treatment with Arava and prednisone 8 hypertension 9 hypothyroidism 10 generalized weakness and fatigue and shortness of breath or related to above Plan Continue IV fluids and wean off the pressors as the patient has been started on norepinephrine infusion for blood pressure control. Initiate hemodialysis per nephrology a second session is anticipated today Monitor electrolytes CAT scan of the chest without contrast to evaluate the air-fluid level seen in the left lung this will be ordered for today in addition to ho-chunk of the abdomen Covid 19 evaluation came back negative No need for any active antibiotic treatment for now. The patient completed a course of Omnicef and Zithromax on outpatient basis in addition to a prednisone burst taper. He needs to be placed back on some degree of steroids and I would suggest putting him back on 40 mg of Isordil Medrol every 12 hours. Resume Synthroid Resume DuoNeb nebulizer was around the clock 4 times a day Hold metoprolol based on his underlying hypotension Hold Hyzaar for now keep the patient and the intensive care unit and will continue to follow.
[2020-07-19] MEDS: IPRATROPIUM-ALBUTEROL 3 ML NEB INHALATION SCH ×3 (07:57→20:19)
[2020-07-19] MEDS: methylPREDNISolone SOD SUCCI 40 MG/ML 1 ML VIAL IV SCH ×2 (08:35→20:34)
--- NOTE | 2020-07-19 08:48 | XR ---
EXAMINATION TYPE: XR chest 1V portable DATE OF EXAM: 07/19/2020 COMPARISON: 07/18/2020 INDICATION: ICU management difficulty breathing abdominal distention TECHNIQUE: Single frontal view of the chest is obtained. FINDINGS: The heart size is enlarged. The pulmonary vasculature is normal. Patchy infiltrates are present within the perihilar regions and in the periphery extending into the r ight lower lobe. Findings are similar to comparison. Azygos fissure is noted, a normal variant. IMPRESSION: 1. Patchy peripheral midlung infiltrates. Correlate for atypical pneumonia.
--- NOTE | 2020-07-19 08:50 | XR ---
EXAMINATION TYPE: XR abdomen 2V DATE OF EXAM: 07/19/2020 COMPARISON: 11/14/2016 INDICATION: Abdominal distention TECHNIQUE: Abdomen examined in the upright view. Supine view is obtained. Respiratory motion limits t he exam FINDINGS: There is within the stomach. There is air within the colon. Nonspecific small bowel gas is present. N o suspicious differential air-fluid levels are evident. Free air is not evident. Psoas margins are normal. No organomegaly is present. Right femoral catheter is evident. IMPRESSION: 1. Nonspecific abdomen.
--- NOTE | 2020-07-19 10:58 | CT ---
EXAMINATION TYPE: CT chest wo con DATE OF EXAM: 07/19/2020 COMPARISON: Chest CT December 30, 2019 and older CTs. HISTORY: Pneumonia, history of rheumatoid lung. CT DLP: 617.4 mGycm. Automated Exposure Control for Dose Reduction was Utilized. TECHNIQUE: CT scan of the thorax is performed without IV contrast. FINDINGS: LUNGS: Redemonstration of azygos lobe/fissure which is normal variant. Redemonstration mild emphysema tous change in the upper lungs. There are persistent irregular thick-walled pleural spaces and the po sterior lung bases containing fluid and air with adjacent anterior lung chronic consolidation or atel ectasis. In the left mid lung there is no consolidation with air bronchograms extending from the hilu m. There are additional multifocal areas of groundglass opacity and organizing consolidations majorit y in the right upper lobe. MEDIASTINUM: Lack of IV contrast is noted to limit evaluation for mediastinal and especially hilar ad enopathy. There are no definitive greater than 1 cm hilar or mediastinal lymph nodes. Tiny pericardia l effusion is stable. Cardiomegaly is redemonstrated. Coronary artery calcification again seen. Enlar ged main pulmonary artery of 0.7 cm axial image 22, CT findings consistent with underlying pulmonary hypertension. OTHER: Visualized liver is low dense consistent with diffuse fatty infiltration. There is 3.7 cm thin -walled cyst exophytically from the upper lateral aspect left kidney. IMPRESSION: Chronic changes to lower lungs thought to be product of rheumatoid lung disease. New cons olidation with air bronchograms left hilar region. New multifocal groundglass opacities organizing co nsolidation in the right upper lobe.
[2020-07-19] MEDS: SODIUM CHLORIDE 0.9% 1,000 ML IV SCH ×2 (11:09)
[2020-07-19] MEDS: DEXTROSE 5% IN WATER 1,000 ML with SODIUM BICARB (1 MEQ/ML) 150 ML IV SCH (11:40)
--- NOTE | 2020-07-19 13:39 | P.PN ---
Subjective Progress Note Date: 07/19/20 Principal diagnosis: Acute renal failure Hypotension Recent pneumonia COPD Hypertension hypertensive cardiovascular disease July 19 2020, patient seen eval examined during the rounds labs reviewed medications reviewed, patient has no dialysis today, hemodynamic status status still marginal remains on 10 mics of levo fed, patient will be monitored observe in the ICU This is a 60-year-old obese male with past medical history of dyslipidemia hypertension hypertensive cardiovascular disease also has a history of the rheumatoid arthritis with recent pneumonia, came into the hospital with increasing shortness of breath high doesn't fatigue, it appears that patient pre sented with pneumonia a week ago was treated with outpatient antibiotics and steroids symptoms did not resolve but continued to get worse, he start retaining more fluids increased swelling of the lower extremity has been noted, his significant labs were elevated BUN and creatinine nephrology has been consulted along with vascular surgery to put hemodialysis catheter and start hemodialysis currently at the time of evaluation patient is undergoing hemodialysis he is on small dose 7 mics of levo fed to keep blood pressure/map over 65-75, Objective - Vital Signs Vital signs: Vital Signs Temp 98.4 F 07/19/20 08:00 Pulse 84 07/19/20 11:00 Resp 19 07/19/20 11:00 BP 104/75 07/19/20 11:00 Pulse Ox 96 07/19/20 11:00 Intake & Output 07/18/20 07/19/20 07/19/20 18:59 06:59 18:59 Intake Total 883.082 4929.747 554.000 Output Total 1910 435 225 Balance -635.323 1031.747 329.000 Weight 110.7 kg 112 kg Intake: IV 500 1300 .9 800 Sodium Chloride 0.9% 1, 500 500 000 ml @ 75 mls/hr IV . [id number] [facility] [[email or web address]] Rx#:[id number] Intake, IV Titration 167.150 484.747 554.000 Amount Norepinephrine 4 mg In 167.150 230.747 Sodium Chloride 0.9% 250 ml @ 0.05 MCG/KG/MIN 20. 738 mls/hr IV .[id number] [facility] Rx#:[id number] Norepinephrine 4 mg In 254 254.000 Sodium Chloride 0.9% 250 ml @ 0.05 MCG/KG/MIN 21. 088 mls/hr IV .[id number] [facility] Rx#:[id number] Sodium Chloride 0.9% 1, 300 000 ml @ 100 mls/hr IV . Q10H [facility] Rx#:[id number] Hemodialysis 300 Output: Urine 110 435 225 Hemodialysis 1800 Other: Voiding Method Indwelling Catheter Indwelling Catheter Indwelling Catheter - Exam - Constitutional General appearance: morbidly obese - EENT Eyes: EOMI, PERRLA Ears: bilateral: normal - Neck Carotids: bilateral: upstroke normal Thyroid: bilateral: normal size - Respiratory Respiratory: bilateral: diminished - Cardiovascular Rhythm: regular Heart sounds: normal: S1, S2 - Gastrointestinal General gastrointestinal: distended - Integumentary Integumentary: decreased turgor - Neurologic Neurologic: CNII-XII intact - Musculoskeletal Musculoskeletal: gait normal, generalized weakness, strength equal bilaterally - Psychiatric Psychiatric: A&O x's 3, appropriate affect, intact judgment & insight - Labs CBC & Chem 7: 07/19/20 03:21 07/19/20 03:21 Labs: Abnormal Lab Results - Last 24 Hours (Table) 07/18/20 07/19/20 07/19/20 Range/Units 15:11 03:21 03:21 WBC 20.1 H (3.8-10.6) k/uL RBC 3.94 L (4.30-5.90) m/uL Hgb 10.6 L (13.0-17.5) gm/dL Hct 36.2 L (39.0-53.0) % MCHC 29.3 L (31.0-37.0) g/dL RDW 17.4 H (11.5-15.5) % Neutrophils # 19.2 H (1.3-7.7) k/uL Lymphocytes # 0.4 L (1.0-4.8) k/uL Sodium 136 L (137-145) mmol/L Potassium 5.2 H (3.5-5.1) mmol/L Carbon Dioxide 14 L (22-30) mmol/L BUN 26 H (9-20) mg/dL Creatinine 7.47 H* (0.66-1.25) mg/dL Glucose 163 H (74-99) mg/dL POC Glucose (mg/dL) 105 H (75-99) mg/dL Calcium 7.9 L (8.4-10.2) mg/dL Microbiology - Last 24 Hours (Table) 07/18/20 10:48 Blood Culture - Preliminary Blood No Growth after 24 hours Assessment and Plan Assessment: Acute renal failure Hypotension Recent pneumonia COPD Hypertension hypertensive cardiovascular disease Plan: Hemodialysis as planned Vasopressors as needed Repeat labs in the morning including chest x-ray Consult vascular surgery 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
--- NOTE | 2020-07-19 18:17 | CONS ---
CONSULTATION REASON FOR CONSULT: Renal failure. HISTORY OF PRESENT ILLNESS: Patient is a 60-year-old male who was admitted to the hospital yesterday with complaints of generalized weakness and fatigue. He has a history of recent pneumonia. The patient did have some cough. He was increasingly short of breath. At this time he was not sure if he had good urine output prior to admission. Serum creatinine was noted to be 11.3 mg/dL on admission. Previous creatinine on 07/13/2020 was 1.37. The patient was noted to be hypotensive, and his lactic acid was also elevated. Chest x-ray showed bilateral infiltrates with pleural effusions, and since patient was quite dyspneic yesterday with low urine output, he did get dialysis yesterday. Overnight, however, urine output has picked up with urine output at 45 to 50 mL/hour now. The patient had been maintained on IV fluids. It appears that most of the infiltrates are infectious and patient also has a previous history of pneumonia with air trapping in the lungs previously. There is no ongoing GI bleed. No significant nausea or vomiting. Serum creatinine today was 7.4. 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 PAST SURGICAL HISTORY: Tonsillectomy, right foot surgery, repair of herniated disc, previous bronchoscopies. SOCIAL HISTORY: Positive for previous smoking; recently quit. No history of alcohol abuse. MEDICATIONS: Medications prior to admission included Hyzaar, Lopressor, albuterol, Synthroid, vitamin C, Zithromax, Omnicef. ALLERGIES: NONE. REVIEW OF SYSTEMS: As per HPI. Other systems negative. PHYSICAL EXAMINATION: Patient is currently comfortable, awake. He is not in any acute distress. He was seen this morning. Blood pressure was 102/57, heart rate 90 per minute. Patient is afebrile. EXAMINATION OF THE HEART: S1 and S2. EXAMINATION OF LUNGS: Decreased breath sounds at bilateral bases. No wheezing is heard. ABDOMEN: Distended, soft, non-tender. Examination of lower extremities shows no significant edema. RECREATION INSTRUCTOR exam shows patient is moving all 4 extremities. LABS: Labs show sodium 136, potassium 5.2, chloride 103. CO2 is 14, BUN 26, serum creatinine 7.47. UA shows trace small blood and 1+ protein. Calcium 7.9, hemoglobin 10.6, white cell count 20.1. ASSESSMENT: 1. Acute kidney injury, mostly acute tubular necrosis, associated with ongoing sepsis, hypotension. No evidence of obstruction on ultrasound. Urine output has improved. I will hold off on hemodialysis today and repeat labs tomorrow. Continue to hold off on the EPI inhibitors and avoid any other nephrotoxic agents. 2. Sepsis, most likely secondary to pneumonia, maintained on antibiotics. Chest CT has been ordered. 3. Metabolic acidosis, anion gap associated with renal failure. There is also lactic acidosis. I will start the patient on bicarb drip. 4. Mild hyperkalemia associated acute kidney injury and metabolic acidosis. Expect improvement with correction of acidosis and improving urine output. 5. Rheumatoid arthritis with history of rheumatoid nodules. 6. Hypothyroidism. 7. Acute hypoxic respiratory failure, currently somewhat improved. PLAN: Continue IV fluids. Continue empiric antibiotics. Await chest CT result. Hold off on dialysis. Start bicarb drip. Repeat labs in a.m. Thank you for this consultation. Will continue to follow the patient with you during his hospitalization. MMODL / IJN: [id number] /
[2020-07-19] MEDS: ASCORBIC ACID 500 MG TAB PO SCH (20:33)
[2020-07-20] MEDS: DEXTROSE 5% IN WATER 1,000 ML with SODIUM BICARB (1 MEQ/ML) 150 ML IV SCH (00:05)
[2020-07-20 04:28] LABS: Anisocytosis Slight; HCT 31.5 % (39.0-53.0); HGB 9.2 gm/dL (13.0-17.5); Hypochromasia Marked; MCH 26.2 pg (25.0-35.0); MCHC 29.3 g/dL (31.0-37.0); MCV 89.4 fL (80.0-100.0); Mean Platelet Volume 8.5; Platelet Count 236 k/uL (150-450); RBC 3.52 m/uL (4.30-5.90); RDW 17.6 % (11.5-15.5); WBC 10.1 k/uL (3.8-10.6)
[2020-07-20 04:52] LABS: Calcium 7.8 mg/dL (8.4-10.2); Potassium 3.8 mmol/L (3.5-5.1)
[2020-07-20] MEDS: LEVOTHYROXINE 75 MCG TAB PO SCH (07:14)
[2020-07-20] MEDS: IPRATROPIUM-ALBUTEROL 3 ML NEB INHALATION SCH ×3 (07:45→21:45)
--- NOTE | 2020-07-20 07:48 | XR ---
EXAMINATION TYPE: XR chest 1V portable DATE OF EXAM: 07/20/2020 Comparison: 07/19/2020 Clinical History: 60-year-old male shortness of breath Findings: Heart remains enlarged. Multifocal mid and lower lung opacities persist. There may be slight improvem ent in aeration of the left midlung but with increasing opacity at the left lower lung. Impression: Continued mid and lower lung areas of patchy and confluent airspace disease.
[2020-07-20] MEDS: methylPREDNISolone SOD SUCCI 40 MG/ML 1 ML VIAL IV SCH ×2 (09:18→21:30)
[2020-07-20] MEDS: SODIUM CHLORIDE 0.9% 1,000 ML IV SCH ×2 (09:19→21:30)
--- NOTE | 2020-07-20 10:52 | P.PN ---
Subjective Progress Note Date: 07/20/20 Principal diagnosis: Acute kidney injury, CHF A 60-year-old male patient who came into the emergency department with worsening shortness of breath. The patient also had diminished urine output and he was getting progressively more dry and he was not eating or drinking much over the past few days. He cannot even remember the last time he urinated. The patient denied having any fever. No reported cough. He did have some exertional dyspnea and shortness of breath whenever he laid down flat. He also noted that his legs are somewhat more swollen than the usual. Denied having any chest pain. No jaw pain. No back pain. No nausea. No vomiting. No abdominal pain. No altered mentation. The patient when he came into the emergency, he was quite hypoxic and was unable to speak up. This is and he was placed on 5 L about 2 by nasal cannula. Noted the patient was in the hospital back in 07/14/2020 and at that time the patient was seen by our service. He came in for symptoms of generalized weakness and fatigue and not feeling well. The patient has been known to our practice and he was seen by Dr. vaughn and the patient was ruled out for coronary bypass/Covid 19 infection. His chest x-ray showed some patchy perihilar and basilar pulmonary infiltrates compatible with pneumonia. The patient was discharged home with the next 24 hours on a combination of Omnicef and Zithromax and the patient was also given a prednisone burst taper. Nevertheless, it seems that his condition has progressed. Note that the patient is known to have rheumatoid arthritis and previous history of rheumatoid lung disease in addition to previous history of a loculated empyema requiring a chest tube placement back in January 2020. This was attributed to Streptococcus pneumonia. He has history of hypertension, hypothyroidism and previous history of DVT. He has had multiple bronchoscopies in the past and the last bronchoscopy was done in May 2070 and at that time the patient had some Inessa albicans. Note that the current admission showed significantly abnormal blood work. The patient had seen a bicarb of 18 with an anion gap of 15. Creatinine was 11.3, lactic acid level was at 2.1 drop down to 1.6. Troponin was at 0.04, proBNP level was 4190. D-dimer is at 3.2. Correlation profile is within normal limits. The white cell count is at 15.3 with a hemoglobin of 10.3 and platelets are at 262. UA was also abnormal and showed +1 bilirubin, rare WBCs and bacteria and rare RBCs. There was hiding casts. Coronavirus, Covid 19 screening came back negative. The patient is being seen by nephrology. The patient is being considered for hemodialysis. The chest x-ray showed perihilar pulmonary infiltrates and bilateral pleural effusions and there is worsening and bilateral edema/infiltrate consistent with fluid overload. There is also an air-fluid level in the left lung base that was seen on previous chest x-rays. On 07/19/2020 the patient is currently in the intensive care unit. The patient got admitted to the ICU and the patient was given a session of hemodialysis. He has a temporary dialysis cath in his right femoral vein. A total of 1.5 L of f luid was ultrafiltrate that along with dialysis. On today's blood work, his creatinine is at 7.47 and his potassium level is at 5.2 and the sodium level is at 136. Serum bicarbonate of 15. His IV fluids are running at the rate of 100 mL an hour of normal saline. Urine output is improving. He was quite low overnight and currently is in the order of 10-20 mL an hour his UA did not indicate any potential infection. There was +1 bilirubin, 10 WBCs, 4 RBCs. His lactic acid level is down to 1.6. His white cell count is at 20.1 with a hemoglobin of 10.6. He is resting comfortably in bed. Hemodynamically stable. He is requiring norepinephrine infusion which is running at 0.19 micrograms per kilogram per minute. I feel like his abdomen is slightly distended. Nevertheless, the patient although this is his normal abdominal distention and he denies having any nausea or emesis. His last bowel movement was few days back. The patient is seen today 07/20/2020 in follow-up in the intensive care unit. He is currently awake and alert oriented 3. Resting comfortably in bed. He did receive hemodialysis times one. He currently is maintaining O2 saturation in the 90s on 2 L/m per nasal cannula. He has D5W with 3 A of bicarb at 100 ML's per hour. Norepinephrine is currently off. This x-ray continues to reveal some mid and lower lung areas of patchy and confluent airspace disease. Blood culture reveals no growth. White count 10.1. Hemoglobin 9.2. Platelets 236. Sodium 135. Potassium 3.8. Bicarb 25. Creatinine 3.81. Glucose 265. He remains on bronchodilators, IV Solu-Medrol. Objective - Vital Signs Vital signs: Vital Signs Temp 97.5 F L 07/20/20 08:00 Pulse 84 07/20/20 09:30 Resp 8 L 07/20/20 09:30 BP 96/76 07/20/20 09:30 Pulse Ox 94 L 07/20/20 09:30 Intake & Output 07/19/20 07/20/20 07/20/20 18:59 06:59 18:59 Intake Total 4901.685 1926.016 433.310 Output Total 600 605 90 Balance 1028.000 818.016 343.310 Weight 110.8 kg Intake: IV 1100 200 Dextrose 5% in Water 1, 1100 200 000 ml @ 100 mls/hr IV . [id number] [facility] with Sodium Bicarb (1 Meq/ml) 150 ml Rx#:[id number] Intake, IV Titration 1508.000 123.016 113.310 Amount Dextrose 5% in Water 1, 700 000 ml @ 100 mls/hr IV . [id number] [facility] with Sodium Bicarb (1 Meq/ml) 150 ml Rx#:[id number] Norepinephrine 4 mg In 508.000 123.016 38.310 Sodium Chloride 0.9% 250 ml @ 0.05 MCG/KG/MIN 21. 088 mls/hr IV .Q12H3M [facility] Rx#:[id number] Sodium Chloride 0.9% 1, 300 000 ml @ 100 mls/hr IV . Q10H [facility] Rx#:[id number] Sodium Chloride 0.9% 1, 75 000 ml @ 75 mls/hr IV . [id number] [facility] Rx#:[id number] Oral 120 200 120 Output: Urine 600 605 90 Other: Voiding Method Indwelling Catheter Indwelling Catheter Indwelling Catheter - Exam GENERAL EXAM: Alert, oriented 60-year-old gentleman, on 2 L nasal cannula, comfortable in no apparent distress. HEAD: Normocephalic. EYES: Normal reaction of pupils, equal size. NOSE: Clear with pink turbinates. THROAT: No erythema or exudates. NECK: No masses, no JVD. CHEST: No chest wall deformity. LUNGS: Equal air entry with coarse crackles in the bilateral posterior bases CVS: S1 and S2 normal with no audible murmur, regular rhythm. ABDOMEN: No hepatosplenomegaly, normal bowel sounds, no guarding or rigidity. SPINE: No scoliosis or deformity SKIN: No rashes CENTRAL NERVOUS SYSTEM: No focal deficits, tone is normal in all 4 extremities. EXTREMITIES: There is 1+ peripheral edema. No clubbing, no cyanosis. Peripheral pulses are intact. - Labs CBC & Chem 7: 07/20/20 03:37 07/20/20 03:37 Labs: Abnormal Lab Results - Last 24 Hours (Table) 07/20/20 07/20/20 Range/Units 03:37 03:37 RBC 3.52 L (4.30-5.90) m/uL Hgb 9.2 L (13.0-17.5) gm/dL Hct 31.5 L (39.0-53.0) % MCHC 29.3 L (31.0-37.0) g/dL RDW 17.6 H (11.5-15.5) % Sodium 135 L (137-145) mmol/L BUN 39 H (9-20) mg/dL Creatinine 3.81 H (0.66-1.25) mg/dL Glucose 265 H (74-99) mg/dL Calcium 7.8 L (8.4-10.2) mg/dL Microbiology - Last 24 Hours (Table) 07/18/20 10:48 Blood Culture - Preliminary Blood No Growth after 24 hours Assessment and Plan Assessment: 1 Acute kidney injury. The patient's creatinine was up to 11 and the patient is a component of metabolic acidosis and the creatinine is down to 3.81 and the serum bicarb is at 25. The patient had an ultrasound the kidneys that showed no evidence of any hydronephrosis. Consider ATN. No signs of uremia. The patient arrived to emergency department the patient was also hypoxemic and the patient was hypotensive. The patient underwent hemodialysis 07/18/2020 with 1.5 L of ultrafiltration. Urine output is improving. 2 Bilateral perihilar pulmonary infiltrates, consider interstitial edema versus pneumonia of the Covid 19 testing came back negative. History of rheumatoid lung 3 History of left lung empyema related to Streptococcus pneumonia back in December 2019 requiring insertion and subsequent removal of chest tube 4 Air-fluid level involving the left lung base, consider ongoing fluid collection/abscess 5 Acute hypoxemic respiratory failure currently on 2 L of oxygen by nasal cannula 6 Hypotension, likely secondary to intravascular volume depletion/dehydration. 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 Dutton Chest x-ray and labs reviewed We will discontinue the bicarb drip Currently off pressors At 0.9 normal saline at 100 ML's per hour Increase diet as tolerated Nephrology is on the case We will continue to follow I, the cosigning physician, performed a history & physical examination of the patient. Lungs sounds with crackles in the bilateral posterior bases. Maintaining good O2 saturations in the 90s on 2 L/m per nasal cannula. I discussed the assessment and plan of care with my nurse practitioner, Morena Cobb. I attest to the above note as dictated by her.
[2020-07-20] MEDS: POTASSIUM CHLORIDE ER 20 MEQ TAB.ER PO SCH ×2 (12:05→15:07)
--- NOTE | 2020-07-20 12:53 | PN ---
PROGRESS NOTE Patient is seen for followup for acute kidney injury. The patient was admitted to the hospital with a creatinine of 11. He did get dialysis; however, his urine output started to improve and renal function has improved. He is maintained on IV fluids. Currently being treated for pneumonia. The patient does have a previous history of pneumonia and chronic changes on his lungs. He did have a CAT scan of his chest done yesterday which showed chronic changes to both lower lungs, possibly secondary to rheumatoid lung disease and new air bronchograms in the left hilar and the right upper lobe. The patient is maintained on IV fluids. He was switched to bicarb drip yesterday for metabolic acidosis. Urine output is good, currently at 75 to 30 mL an hour. PHYSICAL EXAMINATION: On examination today, patient is comfortable, awake. He is not in any acute distress. Blood pressure is 96/76, heart rate 84 per minute. He is afebrile. EXAMINATION OF THE HEART: S1, S2. EXAMINATION OF THE LUNGS: Decreased breath sounds at bases. Abdomen is soft, distended, nontender. Examination of lower extremities shows no significant edema. LASER CUTTER EXAM: Grossly intact. Patient moving all 4 extremities. LABS: Labs show sodium 135, potassium 3.8, chloride 102. BUN 39. Serum creatinine 3.8. Calcium 7.8. ASSESSMENT: 1. Acute kidney injury, acute tubular necrosis, from sepsis and hypotension, currently improved. 2. Hypovolemia, status post IV fluids. 3. Metabolic acidosis, anion gap associated with renal failure and lactic acidosis, currently improved. 4. Hyperkalemia associated with acute kidney injury and acidosis, now improved. 5. Acute hypoxic respiratory failure secondary to pneumonia maintained on antibiotics, currently improving. 6. Rheumatoid arthritis with history of rheumatoid lung nodules. PLAN: Change IV fluids to normal saline. Continue to hold off on dialysis. We will likely remove the dialysis catheter tomorrow. Monitor urine output as it has dropped slightly since the blood pressure was on the lower side. Patient is off of Levophed. We can add midodrine if his blood pressure remains low. Replace potassium cautiously. MMODL / IJN: [id number] /
--- NOTE | 2020-07-20 14:54 | P.PN ---
Subjective Progress Note Date: 07/20/20 Principal diagnosis: Acute renal failure Hypotension Recent pneumonia COPD Hypertension hypertensive cardiovascular disease 07/20/2020, awake and alert sitting upright on the bed breathing comfortably, presence of pressors are off patient will be transferred out of the ICU patient is being monitored off of hemodialysis, labs reviewed July 19 2020, patient seen eval examined during the rounds labs reviewed medications reviewed, patient has no dialysis today, hemodynamic status status still marginal remains on 10 mics of levo fed, patient will be monitored observe in the ICU This is a 60-year-old obese male with past medical history of dyslipidemia hypertension hypertensive cardiovascular disease also has a history of the rheumatoid arthritis with recent pneumonia, came into the hospital with increasing shortness of breath high doesn't fatigue, it appears that patient presented with pneumonia a week ago was treated with outpatient antibiotics and steroids symptoms did not resolve but continued to get worse, he start retaining more fluids increased swelling of the lower extremity has been noted, his significant labs were elevated BUN and creatinine nephrology has been consulted along with vascular surgery to put hemodialysis catheter and start hemodialysis currently at the time of evaluation patient is undergoing hemodialysis he is on small dose 7 mics of levo fed to keep blood pressure/map over 65-75, Objective - Vital Signs Vital signs: Vital Signs Temp 97.5 F L 07/20/20 08:00 Pulse 82 07/20/20 11:45 Resp 8 L 07/20/20 09:30 BP 96/76 07/20/20 09:30 Pulse Ox 94 L 07/20/20 09:30 Intake & Output 07/19/20 07/20/20 07/20/20 18:59 06:59 18:59 Intake Total 4402.565 4321.016 433.310 Output Total 600 605 90 Balance 1028.000 818.016 343.310 Weight 110.8 kg Intake: IV 1100 200 Dextrose 5% in Water 1, 1100 200 000 ml @ 100 mls/hr IV . [id number] [facility] with Sodium Bicarb (1 Meq/ml) 150 ml Rx#:[id number] Intake, IV Titration 1508.000 123.016 113.310 Amount Dextrose 5% in Water 1, 700 000 ml @ 100 mls/hr IV . [id number] [facility] with Sodium Bicarb (1 Meq/ml) 150 ml Rx#:[id number] Norepinephrine 4 mg In 508.000 123.016 38.310 Sodium Chloride 0.9% 250 ml @ 0.05 MCG/KG/MIN 21. 088 mls/hr IV .Q12H3M [facility] Rx#:[id number] Sodium Chloride 0.9% 1, 300 000 ml @ 100 mls/hr IV . Q10H [facility] Rx#:[id number] Sodium Chloride 0.9% 1, 75 000 ml @ 75 mls/hr IV . [id number] [facility] Rx#:[id number] Oral 120 200 120 Output: Urine 600 605 90 Other: Voiding Method Indwelling Catheter Indwelling Catheter Indwelling Catheter - Exam - Constitutional General appearance: morbidly obese - EENT Eyes: EOMI, PERRLA Ears: bilateral: normal - Neck Carotids: bilateral: upstroke normal Thyroid: bilateral: normal size - Respiratory Respiratory: bilateral: diminished - Cardiovascular Rhythm: regular Heart sounds: normal: S1, S2 - Gastrointestinal General gastrointestinal: distended - Integumentary Integumentary: decreased turgor - Neurologic Neurologic: CNII-XII intact - Musculoskeletal Musculoskeletal: gait normal, generalized weakness, strength equal bilaterally - Psychiatric Psychiatric: A&O x's 3, appropriate affect, intact judgment & insight - Labs CBC & Chem 7: 07/20/20 03:37 07/20/20 03:37 Labs: Abnormal Lab Results - Last 24 Hours (Table) 07/20/20 07/20/20 Range/Units 03:37 03:37 RBC 3.52 L (4.30-5.90) m/uL Hgb 9.2 L (13.0-17.5) gm/dL Hct 31.5 L (39.0-53.0) % MCHC 29.3 L (31.0-37.0) g/dL RDW 17.6 H (11.5-15.5) % Sodium 135 L (137-145) mmol/L BUN 39 H (9-20) mg/dL Creatinine 3.81 H (0.66-1.25) mg/dL Glucose 265 H (74-99) mg/dL Calcium 7.8 L (8.4-10.2) mg/dL Microbiology - Last 24 Hours (Table) 07/18/20 10:48 Blood Culture - Preliminary Blood No Growth after 48 hours Assessment and Plan Assessment: Acute renal failure Hypotension Recent pneumonia COPD Hypertension hypertensive cardiovascular disease Plan: Hemodialysis as needed Vasopressors as needed Repeat labs in the morning including chest x-ray Patient can be moved out of the ICU Time with Patient: Greater than 30
--- NOTE | 2020-07-20 15:24 | CDI ---
Documentation Clarification Form Date: 07/20/2020 03:05:40 PM From: Shell Goldsmith RN CCDS Admit Date: 07/18/2020 01:24:00 PM Patient Name: Lokesh Zee Visit Number: [id number] Discharge Date: ATTENTION: The Clinical Documentation Specialists (CDI) and [facility] Coding Staff appreciate your assistance in clarifying documentation. Please respond to the clarification below the line at the bottom and electronically sign. The CDI & [facility] Coding staff will review the response and follow-up if needed. Please note: Queries are made part of the Legal Health Record. If you have any questions, please contact the author of this message via ITS. Dr. Simeon Ordaz Acute kidney injury, acute tubular necrosis, from sepsis and hypotension currently improved. Is documented in the Nephrology consult 07/19 and progress note 07/20. History/Risk Factors: 60-year-old male presents to the ED worsening shortness of breath. The patient was recently diagnosed with pneumonia approximately a week ago. Medical Hx: RA; Hypothyroidism; HTN and rheumatoid nodules in the lungs. Clinical Indicators: 07/18 WBC: 15.3 07/18 Lactic acid: 2.1 07/18 Blood cultures: No growth after 28 hours 07/18 Vital signs on admission: B/P 99/56; 107; 97.5 F Oral; RR 18; SpO2 89% 3L room air Treatment: Antibiotics: 07/18 Zosyn Ivpb x 1; Ceftriaxone Ivpb x 1; Levaquin Ivpb x 1 IV Bolus: 07/18 0.9ns 2L bolus followed by 75cc/hr In your professional opinion, please clarify if these findings signify one of the following conditions, whether the condition is POA, and cause, if known: Sepsis related to Pneumonia Present on Admission Yes Identify the (suspected) organism___unknown Link or clarify if there is associated (due to/with): Organ failure : Hypoxia SIRS Criteria (2 or more of the following may indicate SIRS): -Temperature < 96.8F (36C) or > 101.0F (38.3C) -Heart Rate > 90 bpm -Respiratory Rate > 20 breaths/min or PaCO2 < 32 mmHg -White Blood Cell Count > 12,000 or < 4,000 cells/mm3 or > 10% bands -Lactate >2.0 mmol/L (>4.0 is equivalent to septic shock) MTDD
[2020-07-20] MEDS: ASCORBIC ACID 500 MG TAB PO SCH (21:30)
[2020-07-21 04:31] LABS: Anisocytosis Slight; Basophils % (A) 0 %; Eosinophils % (A) 0 %; HCT 31.4 % (39.0-53.0); HGB 9.6 gm/dL (13.0-17.5); Hypochromasia Moderate; Lymphocytes # (A) 0.5 k/uL (1.0-4.8); Lymphocytes % (A) 4 %; MCH 26.4 pg (25.0-35.0); MCHC 30.6 g/dL (31.0-37.0); MCV 86.4 fL (80.0-100.0); Mean Platelet Volume 8.4; Monocytes # (A) 0.4 k/uL (0-1.0); Monocytes % (A) 3 %; Neutrophils # (A) 12.5 k/uL (1.3-7.7); Neutrophils % (A) 92 %; Platelet Count 251 k/uL (150-450); RBC 3.63 m/uL (4.30-5.90); RDW 17.6 % (11.5-15.5); WBC 13.5 k/uL (3.8-10.6)
[2020-07-21 04:43] LABS: Calcium 8.2 mg/dL (8.4-10.2); Potassium 3.8 mmol/L (3.5-5.1)
[2020-07-21] MEDS: LEVOTHYROXINE 75 MCG TAB PO SCH (06:26)
[2020-07-21] MEDS: IPRATROPIUM-ALBUTEROL 3 ML NEB INHALATION SCH ×3 (07:25→20:49)
[2020-07-21] MEDS: methylPREDNISolone SOD SUCCI 40 MG/ML 1 ML VIAL IV SCH ×2 (09:10→21:20)
--- NOTE | 2020-07-21 09:58 | XR ---
EXAMINATION TYPE: XR chest 1V DATE OF EXAM: 07/21/2020 COMPARISON: 07/20/2020 INDICATION: Follow-up TECHNIQUE: Single frontal view of the chest is obtained. FINDINGS: The heart size is enlarged. The pulmonary vasculature is normal. Bibasilar infiltrates are present. These are stable from comparison IMPRESSION: 1. Stable bibasilar infiltrates and cardiomegaly.
--- NOTE | 2020-07-21 10:30 | P.PN ---
Subjective Progress Note Date: 07/21/20 Principal diagnosis: Acute kidney injury, CHF A 60-year-old male patient who came into the emergency department with worsening shortness of breath. The patient also had diminished urine output and he was getting progressively more dry and he was not eating or drinking much over the past few days. He cannot even remember the last time he urinated. The patient denied having any fever. No reported cough. He did have some exertional dyspnea and shortness of breath whenever he laid down flat. He also noted that his legs are somewhat more swollen than the usual. Denied having any chest pain. No jaw pain. No back pain. No nausea. No vomiting. No abdominal pain. No altered mentation. The patient when he came into the emergency, he was quite hypoxic and was unable to speak up. This is and he was placed on 5 L about 2 by nasal cannula. Noted the patient was in the hospital back in 07/14/2020 and at that time the patient was seen by our service. He came in for symptoms of generalized weakness and fatigue and not feeling well. The patient has been known to our practice and he was seen by Dr. vaughn and the patient was ruled out for coronary bypass/Covid 19 infection. His chest x-ray showed some patchy perihilar and basilar pulmonary infiltrates compatible with pneumonia. The patient was discharged home with the next 24 hours on a combination of Omnicef and Zithromax and the patient was also given a prednisone burst taper. Nevertheless, it seems that his condition has progressed. Note that the patient is known to have rheumatoid arthritis and previous history of rheumatoid lung disease in addition to previous history of a loculated empyema requiring a chest tube placement back in January 2020. This was attributed to Streptococcus pneumonia. He has history of hypertension, hypothyroidism and previous history of DVT. He has had multiple bronchoscopies in the past and the last bronchoscopy was done in May 2070 and at that time the patient had some Inessa albicans. Note that the current admission showed significantly abnormal blood work. The patient had seen a bicarb of 18 with an anion gap of 15. Creatinine was 11.3, lactic acid level was at 2.1 drop down to 1.6. Troponin was at 0.04, proBNP level was 4190. D-dimer is at 3.2. Correlation profile is within normal limits. The white cell count is at 15.3 with a hemoglobin of 10.3 and platelets are at 262. UA was also abnormal and showed +1 bilirubin, rare WBCs and bacteria and rare RBCs. There was hiding casts. Coronavirus, Covid 19 screening came back negative. The patient is being seen by nephrology. The patient is being considered for hemodialysis. The chest x-ray showed perihilar pulmonary infiltrates and bilateral pleural effusions and there is worsening and bilateral edema/infiltrate consistent with fluid overload. There is also an air-fluid level in the left lung base that was seen on previous chest x-rays. On 07/19/2020 the patient is currently in the intensive care unit. The patient got admitted to the ICU and the patient was given a session of hemodialysis. He has a temporary dialysis cath in his right femoral vein. A total of 1.5 L of f luid was ultrafiltrate that along with dialysis. On today's blood work, his creatinine is at 7.47 and his potassium level is at 5.2 and the sodium level is at 136. Serum bicarbonate of 15. His IV fluids are running at the rate of 100 mL an hour of normal saline. Urine output is improving. He was quite low overnight and currently is in the order of 10-20 mL an hour his UA did not indicate any potential infection. There was +1 bilirubin, 10 WBCs, 4 RBCs. His lactic acid level is down to 1.6. His white cell count is at 20.1 with a hemoglobin of 10.6. He is resting comfortably in bed. Hemodynamically stable. He is requiring norepinephrine infusion which is running at 0.19 micrograms per kilogram per minute. I feel like his abdomen is slightly distended. Nevertheless, the patient although this is his normal abdominal distention and he denies having any nausea or emesis. His last bowel movement was few days back. The patient is seen today 07/20/2020 in follow-up in the intensive care unit. He is currently awake and alert oriented 3. Resting comfortably in bed. He did receive hemodialysis times one. He currently is maintaining O2 saturation in the 90s on 2 L/m per nasal cannula. He has D5W with 3 A of bicarb at 100 ML's per hour. Norepinephrine is currently off. This x-ray continues to reveal some mid and lower lung areas of patchy and confluent airspace disease. Blood culture reveals no growth. White count 10.1. Hemoglobin 9.2. Platelets 236. Sodium 135. Potassium 3.8. Bicarb 25. Creatinine 3.81. Glucose 265. He remains on bronchodilators, IV Solu-Medrol. The patient is seen today 07/21/2020 in follow-up in the intensive care unit. He is awake and alert in no acute distress. Currently sitting up in a chair at the bedside. Denies any worsening shortness of breath, cough or congestion. He is maintaining good O2 saturations in the 90s on 2 L/m per nasal cannula. 0.9 normal saline at 75 ML's per hour. He has been off his norepinephrine for greater than 12 hours. Blood cultures reveal no growth to date. He has received hemodialysis once since admission. White count 13.5. Hemoglobin 9.6. Sodium 135. Potassium 3.8. Creatinine 2.77. His only complaint today is difficulty sleeping at night. Chest x-ray reveals stable bibasilar infiltrates, cardiomegaly. Objective - Vital Signs Vital signs: Vital Signs Temp 98.2 F 07/21/20 04:00 Pulse 96 07/21/20 07:36 Resp 19 07/21/20 07:00 BP 94/81 07/21/20 07:00 Pulse Ox 97 07/21/20 07:00 Intake & Output 07/20/20 07/21/20 07/21/20 18:59 06:59 18:59 Intake Total 1979.257 7971 75 Output Total 330 450 40 Balance 1258.310 690 35 Intake: IV 200 Dextrose 5% in Water 1, 200 000 ml @ 100 mls/hr IV . [id number] [facility] with Sodium Bicarb (1 Meq/ml) 150 ml Rx#:[id number] Intake, IV Titration 788.310 900 75 Amount Norepinephrine 4 mg In 38.310 Sodium Chloride 0.9% 250 ml @ 0.05 MCG/KG/MIN 21. 088 mls/hr IV .[id number] [facility] Rx#:[id number] Sodium Chloride 0.9% 1, 750 900 75 000 ml @ 75 mls/hr IV . [id number] [facility] Rx#:[id number] Oral 600 240 Output: Urine 330 450 40 Other: Voiding Method Indwelling Catheter Indwelling Catheter # Bowel Movements 1 - Exam GENERAL EXAM: Alert, oriented 60-year-old gentleman, on 2 L nasal cannula, up in a chair at the bedside, comfortable in no apparent distress. HEAD: Normocephalic. EYES: Normal reaction of pupils, equal size. NOSE: Clear with pink turbinates. THROAT: No erythema or exudates. NECK: No masses, no JVD. CHEST: No chest wall deformity. LUNGS: Equal air entry with coarse crackles in the bilateral posterior bases CVS: S1 and S2 normal with no audible murmur, regular rhythm. ABDOMEN: No hepatosplenomegaly, normal bowel sounds, no guarding or rigidity. SPINE: No scoliosis or deformity SKIN: No rashes CENTRAL NERVOUS SYSTEM: No focal deficits, tone is normal in all 4 extremities. EXTREMITIES: There is 1+ peripheral edema. No clubbing, no cyanosis. Peripheral pulses are intact. - Labs CBC & Chem 7: 07/21/20 03:56 07/21/20 03:56 Labs: Abnormal Lab Results - Last 24 Hours (Table) 07/21/20 07/21/20 Range/Units 03:56 03:56 WBC 13.5 H (3.8-10.6) k/uL RBC 3.63 L (4.30-5.90) m/uL Hgb 9.6 L (13.0-17.5) gm/dL Hct 31.4 L (39.0-53.0) % MCHC 30.6 L (31.0-37.0) g/dL RDW 17.6 H (11.5-15.5) % Neutrophils # 12.5 H (1.3-7.7) k/uL Lymphocytes # 0.5 L (1.0-4.8) k/uL Sodium 135 L (137-145) mmol/L BUN 52 H (9-20) mg/dL Creatinine 2.77 H (0.66-1.25) mg/dL Glucose 146 H (74-99) mg/dL Calcium 8.2 L (8.4-10.2) mg/dL Microbiology - Last 24 Hours (Table) 07/18/20 10:48 Blood Culture - Preliminary Blood No Growth after 48 hours Assessment and Plan Assessment: 1 Acute kidney injury. The patient's creatinine was up to 11 and the patient is a component of metabolic acidosis and the creatinine is down to 2.77 and the serum bicarb is at 25. The patient had an ultrasound the kidneys that showed no evidence of any hydronephrosis. Consider ATN. No signs of uremia. The patient underwent hemodialysis 07/18/2020 with 1.5 L of ultrafiltration. Urine output is improving. 2 Bilateral perihilar pulmonary infiltrates, consider interstitial edema versus pneumonia of the Covid 19 testing came back negative. History of rheumatoid lung 3 History of left lung empyema related to Streptococcus pneumonia back in December 2019 requiring insertion and subsequent removal of chest tube 4 Air-fluid level involving the left lung base, consider ongoing fluid collection/abscess 5 Acute hypoxemic respiratory failure currently on 2 L of oxygen by nasal cannula 6 Hypotension, likely secondary to intravascular volume depletion/dehydration. Recovered and off pressors 7 Rheumatoid arthritis history of rheumatoid lungs/fibrosis with previous david atment with Arava and prednisone 8 Hypertension 9 Hypothyroidism 10 Generalized weakness and fatigue related to above Plan The patient was seen and evaluated by Dr. Dutton Chest x-ray and labs reviewed Continue bronchodilators and steroids 0.9 normal saline at 75 ML's per hour Restoril for insomnia Transfer out of the ICU today We will continue to follow I, the cosigning physician, performed a history & physical examination of the patient. Lungs sounds with crackles in the bilateral posterior bases. Maintaining good O2 saturations in the 90s on 2 L/m per nasal cannula. I discussed the assessment and plan of care with my nurse practitioner, Morena Cobb. I attest to the above note as dictated by her.
[2020-07-21] MEDS ORDERED: FUROSEMIDE 10 MG/ML 4 ML VIAL IV STA (10:43)
[2020-07-21] MEDS ORDERED: PANTOPRAZOLE 40 MG/10 ML VIAL IVP SCH (12:30)
--- NOTE | 2020-07-21 14:10 | PN ---
PROGRESS NOTE Patient is seen for followup for acute kidney injury. The patient is currently sitting up on a bedside chair. He is comfortable. He denies any significant complaints. He is maintained on IV fluids. EXAMINATION: Blood pressure was on examination 116/78, heart rate 89 per minute. He is afebrile. Urine output is at about 40-50 mL an hour. Examination of the heart S1, S2. Examination of the lungs, bilateral breath sounds are heard. Abdomen is soft, nontender. Examination of lower extremities shows edema 2+ bilaterally. RESEARCH ARCHAEOLOGIST exam grossly intact. LABS: Show sodium 135, potassium 3.8, chloride 102, BUN 52, creatinine 2.7, hemoglobin 9.6 g/dL. ASSESSMENT: 1. Acute kidney injury, acute tubular necrosis currently improving, status post one treatment of hemodialysis. Urine output is maintained and renal function continues to improve. I will discontinue the IV fluids. 2. Pneumonia maintained on antibiotics. 3. Acute hypoxic respiratory failure, currently improved. 4. Sepsis with septic shock, currently off pressors, now improved. 5. History of left lung empyema related to Streptococcus pneumonia in December of 2019 with placement of chest tube and removal of chest tube. 6. Metabolic acidosis, now resolved. The patient is status post bicarb drip. 7. Rheumatoid arthritis with history of rheumatoid lung and nodules and fibrosis. 8. Hypervolemia. PLAN: Discontinue IV fluids Lasix IV x1. Repeat labs in a.m. Continue to avoid nephrotoxic agents. I will discontinue the dialysis catheter as well. MMODL / IJN: [id number] /
[2020-07-21] MEDS: NOREPINEPHRINE 4 MG in SODIUM CHLORIDE 0.9% 250 ML IV SCH ×2 (16:27→21:29)
[2020-07-21] MEDS ORDERED: TEMAZEPAM 30 MG CAP PO SCH (21:00)
[2020-07-21] MEDS ORDERED: TEMAZEPAM 15 MG CAP PO SCH (21:05)
[2020-07-21] MEDS: ASCORBIC ACID 500 MG TAB PO SCH (21:20)
[2020-07-21] MEDS ORDERED: TEMAZEPAM 15 MG CAP PO ONE (21:30)
[2020-07-22] MEDS: IPRATROPIUM-ALBUTEROL 3 ML NEB INHALATION SCH ×3 (08:01→21:35)
[2020-07-22 08:14] LABS: Anisocytosis Slight; Basophils % (A) 0 %; Eosinophils % (A) 0 %; HCT 34.1 % (39.0-53.0); HGB 10.6 gm/dL (13.0-17.5); Hypochromasia Marked; Lymphocytes # (A) 0.5 k/uL (1.0-4.8); Lymphocytes % (A) 5 %; MCH 27.2 pg (25.0-35.0); MCHC 31.1 g/dL (31.0-37.0); MCV 87.5 fL (80.0-100.0); Mean Platelet Volume 8.2; Monocytes # (A) 0.4 k/uL (0-1.0); Monocytes % (A) 4 %; Neutrophils # (A) 9.1 k/uL (1.3-7.7); Neutrophils % (A) 90 %; Platelet Count 279 k/uL (150-450); RDW 17.4 % (11.5-15.5); WBC 10.1 k/uL (3.8-10.6)
[2020-07-22 08:26] LABS: Albumin 3.1 g/dL (3.5-5.0); Calcium 8.7 mg/dL (8.4-10.2); Potassium 3.8 mmol/L (3.5-5.1); Total Bilirubin 0.5 mg/dL (0.2-1.3); Total Protein 6.7 g/dL (6.3-8.2)
[2020-07-22] MEDS: LEVOTHYROXINE 75 MCG TAB PO SCH (08:37)
--- NOTE | 2020-07-22 11:13 | P.PN ---
Subjective Progress Note Date: 07/22/20 Principal diagnosis: Acute kidney injury, CHF A 60-year-old male patient who came into the emergency department with worsening shortness of breath. The patient also had diminished urine output and he was getting progressively more dry and he was not eating or drinking much over the past few days. He cannot even remember the last time he urinated. The patient denied having any fever. No reported cough. He did have some exertional dyspnea and shortness of breath whenever he laid down flat. He also noted that his legs are somewhat more swollen than the usual. Denied having any chest pain. No jaw pain. No back pain. No nausea. No vomiting. No abdominal pain. No altered mentation. The patient when he came into the emergency, he was quite hypoxic and was unable to speak up. This is and he was placed on 5 L about 2 by nasal cannula. Noted the patient was in the hospital back in 07/14/2020 and at that time the patient was seen by our service. He came in for symptoms of generalized weakness and fatigue and not feeling well. The patient has been known to our practice and he was seen by Dr. vaughn and the patient was ruled out for coronary bypass/Covid 19 infection. His chest x-ray showed some patchy perihilar and basilar pulmonary infiltrates compatible with pneumonia. The patient was discharged home with the next 24 hours on a combination of Omnicef and Zithromax and the patient was also given a prednisone burst taper. Nevertheless, it seems that his condition has progressed. Note that the patient is known to have rheumatoid arthritis and previous history of rheumatoid lung disease in addition to previous history of a loculated empyema requiring a chest tube placement back in January 2020. This was attributed to Streptococcus pneumonia. He has history of hypertension, hypothyroidism and previous history of DVT. He has had multiple bronchoscopies in the past and the last bronchoscopy was done in May 2070 and at that time the patient had some Inessa albicans. Note that the current admission showed significantly abnormal blood work. The patient had seen a bicarb of 18 with an anion gap of 15. Creatinine was 11.3, lactic acid level was at 2.1 drop down to 1.6. Troponin was at 0.04, proBNP level was 4190. D-dimer is at 3.2. Correlation profile is within normal limits. The white cell count is at 15.3 with a hemoglobin of 10.3 and platelets are at 262. UA was also abnormal and showed +1 bilirubin, rare WBCs and bacteria and rare RBCs. There was hiding casts. Coronavirus, Covid 19 screening came back negative. The patient is being seen by nephrology. The patient is being considered for hemodialysis. The chest x-ray showed perihilar pulmonary infiltrates and bilateral pleural effusions and there is worsening and bilateral edema/infiltrate consistent with fluid overload. There is also an air-fluid level in the left lung base that was seen on previous chest x-rays. On 07/19/2020 the patient is currently in the intensive care unit. The patient got admitted to the ICU and the patient was given a session of hemodialysis. He has a temporary dialysis cath in his right femoral vein. A total of 1.5 L of f luid was ultrafiltrate that along with dialysis. On today's blood work, his creatinine is at 7.47 and his potassium level is at 5.2 and the sodium level is at 136. Serum bicarbonate of 15. His IV fluids are running at the rate of 100 mL an hour of normal saline. Urine output is improving. He was quite low overnight and currently is in the order of 10-20 mL an hour his UA did not indicate any potential infection. There was +1 bilirubin, 10 WBCs, 4 RBCs. His lactic acid level is down to 1.6. His white cell count is at 20.1 with a hemoglobin of 10.6. He is resting comfortably in bed. Hemodynamically stable. He is requiring norepinephrine infusion which is running at 0.19 micrograms per kilogram per minute. I feel like his abdomen is slightly distended. Nevertheless, the patient although this is his normal abdominal distention and he denies having any nausea or emesis. His last bowel movement was few days back. The patient is seen today 07/20/2020 in follow-up in the intensive care unit. He is currently awake and alert oriented 3. Resting comfortably in bed. He did receive hemodialysis times one. He currently is maintaining O2 saturation in the 90s on 2 L/m per nasal cannula. He has D5W with 3 A of bicarb at 100 ML's per hour. Norepinephrine is currently off. This x-ray continues to reveal some mid and lower lung areas of patchy and confluent airspace disease. Blood culture reveals no growth. White count 10.1. Hemoglobin 9.2. Platelets 236. Sodium 135. Potassium 3.8. Bicarb 25. Creatinine 3.81. Glucose 265. He remains on bronchodilators, IV Solu-Medrol. The patient is seen today 07/21/2020 in follow-up in the intensive care unit. He is awake and alert in no acute distress. Currently sitting up in a chair at the bedside. Denies any worsening shortness of breath, cough or congestion. He is maintaining good O2 saturations in the 90s on 2 L/m per nasal cannula. 0.9 normal saline at 75 ML's per hour. He has been off his norepinephrine for greater than 12 hours. Blood cultures reveal no growth to date. He has received hemodialysis once since admission. White count 13.5. Hemoglobin 9.6. Sodium 135. Potassium 3.8. Creatinine 2.77. His only complaint today is difficulty sleeping at night. Chest x-ray reveals stable bibasilar infiltrates, cardiomegaly. The patient is seen today 07/22/2020 in follow-up in the intensive care unit. He is currently sitting up at the bedside. Awake and alert in no acute distress. Maintaining O2 saturation in the 90s on room air. No IV fluids. Appetite is good. He did have some episode of confusion last night after receiving Restoril for his prior complaints of inability to sleep. dye beck reel operator is at the bedside. This morning he is appropriate neurologically. Blood cultures reveal no growth. White count 10.1. Hemoglobin 10.6. Sodium 140. Potassium 3.8. Creatinine 1.93. He is making good urine on his own. Still with some lower extremity edema. Objective - Vital Signs Vital signs: Vital Signs Temp 96.5 F L 07/22/20 02:00 Pulse 68 07/22/20 02:00 Resp 20 07/22/20 02:00 BP 115/72 07/22/20 02:00 Pulse Ox 98 07/22/20 02:00 Intake & Output 07/21/20 07/22/20 07/22/20 18:59 06:59 18:59 Intake Total 450 Output Total 1070 300 450 Balance -620 -300 -450 Intake: Intake, IV Titration 300 Amount Sodium Chloride 0.9% 1, 300 000 ml @ 75 mls/hr IV . [id number] [facility] Rx#:[id number] Oral 150 Output: Urine 1070 300 450 Other: Voiding Method Toilet Toilet Toilet Urinal Urinal Urinal # Voids 1 1 # Bowel Movements 1 - Exam GENERAL EXAM: Alert, oriented 60-year-old gentleman, on room air, up in a chair at the bedside, comfortable in no apparent distress. HEAD: Normocephalic. EYES: Normal reaction of pupils, equal size. NOSE: Clear with pink turbinates. THROAT: No erythema or exudates. NECK: No masses, no JVD. CHEST: No chest wall deformity. LUNGS: Equal air entry with coarse crackles in the bilateral posterior bases CVS: S1 and S2 normal with no audible murmur, regular rhythm. ABDOMEN: No hepatosplenomegaly, normal bowel sounds, no guarding or rigidity. SPINE: No scoliosis or deformity SKIN: No rashes CENTRAL NERVOUS SYSTEM: No focal deficits, tone is normal in all 4 extremities. EXTREMITIES: There is 1+ peripheral edema. No clubbing, no cyanosis. Periph eral pulses are intact. - Labs CBC & Chem 7: 07/22/20 08:03 07/22/20 08:03 Labs: Abnormal Lab Results - Last 24 Hours (Table) 07/22/20 07/22/20 Range/Units 08:03 08:03 RBC 3.90 L (4.30-5.90) m/uL Hgb 10.6 L (13.0-17.5) gm/dL Hct 34.1 L (39.0-53.0) % RDW 17.4 H (11.5-15.5) % Neutrophils # 9.1 H (1.3-7.7) k/uL Lymphocytes # 0.5 L (1.0-4.8) k/uL BUN 65 H (9-20) mg/dL Creatinine 1.93 H (0.66-1.25) mg/dL Glucose 154 H (74-99) mg/dL Albumin 3.1 L (3.5-5.0) g/dL Microbiology - Last 24 Hours (Table) 07/18/20 10:48 Blood Culture - Preliminary Blood No Growth after 72 hours Assessment and Plan Assessment: 1 Acute kidney injury. The patient's creatinine was up to 11 and the patient is a component of metabolic acidosis and the creatinine is down to 1.93 and the serum bicarb is at 25. The patient had an ultrasound the kidneys that showed no evidence of any hydronephrosis. Consider ATN. No signs of uremia. The patient underwent hemodialysis 07/18/2020 with 1.5 L of ultrafiltration. Urine output is improving. 2 Bilateral perihilar pulmonary infiltrates, consider interstitial edema versus pneumonia of the Covid 19 testing came back negative. History of rheumatoid lung 3 History of left lung empyema related to Streptococcus pneumonia back in December 2019 requiring insertion and subsequent removal of chest tube 4 Air-fluid level involving the left lung base, consider ongoing fluid collection/abscess 5 Acute hypoxemic respiratory failure currently on 2 L of oxygen by nasal cannula 6 Hypotension, likely secondary to intravascular volume depletion/dehydration. Recovered and off pressors 7 Rheumatoid arthritis history of rheumatoid lungs/fibrosis with previous david atment with Arava and prednisone 8 Hypertension 9 Hypothyroidism 10 Generalized weakness and fatigue related to above Plan The patient was seen and evaluated by Dr. Dutton The patient did develop some confusion after receiving Restoril last night Discontinue Restoril Discontinue steroids Lasix 40 mg IVP 1 He remains medical floor overflow dye beck reel operator at the bedside We will continue to follow I, the cosigning physician, performed a history & physical examination of the patient. Lungs sounds with crackles in the bilateral posterior bases. Maintaining good O2 saturations in the 90s on room air. I discussed the assessment and plan of care with my nurse practitioner, Morena Cobb. I attest to the above note as dictated by her.
[2020-07-22] MEDS ORDERED: FUROSEMIDE 10 MG/ML 4 ML VIAL IV STA (11:14)
--- NOTE | 2020-07-22 14:14 | PN ---
PROGRESS NOTE Patient is seen for followup for acute kidney injury. Patient was admitted to the hospital with mental status changes, severe renal failure, metabolic acidosis. He did have 1 treatment of hemodialysis on initial admission. Serum creatinine has since then improved with creatinine going down to 1.9 now from 11.38. Dialysis catheter was removed yesterday. Patient continues to have good urine output. PHYSICAL EXAMINATION: On examination today, blood pressure 115/72, heart rate 68 per minute. He is afebrile. Examination of the heart S1, S2. Examination of the lungs, bilateral breath sounds are heard. Decreased breath sounds at bases. Abdomen is soft, nontender. Examination of lower extremities shows edema 2+ bilaterally. CHIPPER FEEDER exam grossly intact. LAB: Show sodium 140, potassium 3.8, chloride 105, BUN 65, creatinine 1.93, hemoglobin 10.6 g/dL. ASSESSMENT: 1. Acute kidney injury, acute tubular necrosis, currently improved. Dialysis catheter has been discontinued. Patient had only one treatment of dialysis on initial admission. Etiologies acute tubular necrosis. 2. Volume overload. I will add Lasix. 3. Mild hyperkalemia associated with acute kidney injury, now resolved. 4. Pneumonia, maintained on antibiotics, currently improving. 5. Acute hypoxic respiratory failure secondary to pneumonia, now improved. 6. Sepsis with septic shock, off pressors. 7. History of left lung empyema secondary to Streptococcus pneumonia in December of 2019 with placement and removal of chest tube. 8. Rheumatoid arthritis with a history of rheumatoid lung and nodules and fibrosis. PLAN: Repeat IV Lasix x1 today. Continue off IV fluids. Encourage increased oral intake. MMODL / IJN: [id number] /
--- NOTE | 2020-07-22 15:35 | P.PN ---
Subjective Progress Note Date: 07/21/20 Principal diagnosis: Acute renal failure Hypotension Recent pneumonia COPD Hypertension hypertensive cardiovascular disease 07/21/2020, patient seen eval examined awake and alert sitting upright in chair breathing comfortably, no chest pain is present hemodialysis catheter to be removed patient to be transferred out of the ICU, 07/20/2020, awake and alert sitting upright on the bed breathing comfortably, presence of pressors are off patient will be transferred out of the ICU patient is being monitored off of hemodialysis, labs reviewed July 19 2020, patient seen eval examined during the rounds labs reviewed medications reviewed, patient has no dialysis today, hemodynamic status status still marginal remains on 10 mics of levo fed, patient will be monitored observe in the ICU This is a 60-year-old obese male with past medical history of dyslipidemia hypertension hypertensive cardiovascular disease also has a history of the rheumatoid arthritis with recent pneumonia, came into the hospital with increasing shortness of breath high doesn't fatigue, it appears that patient presented with pneumonia a week ago was treated with outpatient antibiotics and steroids symptoms did not resolve but continued to get worse, he start retaining more fluids increased swelling of the lower extremity has been noted, his significant labs were elevated BUN and creatinine nephrology has been consulted along with vascular surgery to put hemodialysis catheter and start hemodialysis currently at the time of evaluation patient is undergoing hemodialysis he is on small dose 7 mics of levo fed to keep blood pressure/map over 65-75, Objective - Vital Signs Vital signs: Vital Signs Temp 97.7 F 07/21/20 15:00 Pulse 100 07/21/20 15:00 Resp 9 L 07/21/20 15:00 BP 115/87 07/21/20 15:00 Pulse Ox 93 L 07/21/20 15:00 Intake & Output 07/20/20 07/21/20 07/21/20 18:59 06:59 18:59 Intake Total 9206.572 5340 350 Output Total 330 450 170 Balance 1258.310 690 180 Weight 110.8 kg Intake: IV 200 Dextrose 5% in Water 1, 200 000 ml @ 100 mls/hr IV . [id number] [facility] with Sodium Bicarb (1 Meq/ml) 150 ml Rx#:[id number] Intake, IV Titration 788.310 900 300 Amount Norepinephrine 4 mg In 38.310 Sodium Chloride 0.9% 250 ml @ 0.05 MCG/KG/MIN 21. 088 mls/hr IV .[id number] [facility] Rx#:[id number] Sodium Chloride 0.9% 1, 750 900 300 000 ml @ 75 mls/hr IV . [id number] [facility] Rx#:[id number] Oral 600 240 50 Output: Urine 330 450 170 Other: Voiding Method Indwelling Catheter Indwelling Catheter Toilet Urinal # Bowel Movements 1 1 - Exam - Constitutional General appearance: morbidly obese - EENT Eyes: EOMI, PERRLA Ears: bilateral: normal - Neck Carotids: bilateral: upstroke normal Thyroid: bilateral: normal size - Respiratory Respiratory: bilateral: diminished - Cardiovascular Rhythm: regular Heart sounds: normal: S1, S2 - Gastrointestinal General gastrointestinal: distended - Integumentary Integumentary: decreased turgor - Neurologic Neurologic: CNII-XII intact - Musculoskeletal Musculoskeletal: gait normal, generalized weakness, strength equal bilaterally - Psychiatric Psychiatric: A&O x's 3, appropriate affect, intact judgment & insight - Labs CBC & Chem 7: 07/22/20 08:03 07/22/20 08:03 Labs: Abnormal Lab Results - Last 24 Hours (Table) 07/21/20 07/21/20 Range/Units 03:56 03:56 WBC 13.5 H (3.8-10.6) k/uL RBC 3.63 L (4.30-5.90) m/uL Hgb 9.6 L (13.0-17.5) gm/dL Hct 31.4 L (39.0-53.0) % MCHC 30.6 L (31.0-37.0) g/dL RDW 17.6 H (11.5-15.5) % Neutrophils # 12.5 H (1.3-7.7) k/uL Lymphocytes # 0.5 L (1.0-4.8) k/uL Sodium 135 L (137-145) mmol/L BUN 52 H (9-20) mg/dL Creatinine 2.77 H (0.66-1.25) mg/dL Glucose 146 H (74-99) mg/dL Calcium 8.2 L (8.4-10.2) mg/dL Microbiology - Last 24 Hours (Table) 07/18/20 10:48 Blood Culture - Preliminary Blood No Growth after 72 hours Assessment and Plan Assessment: Acute renal failure Hypotension Recent pneumonia COPD Hypertension hypertensive cardiovascular disease Plan: Hemodialysis as needed Vasopressors as needed Repeat labs in the morning including chest x-ray Patient can be moved out of the ICU Time with Patient: Greater than 30
--- NOTE | 2020-07-22 15:37 | P.PN ---
Subjective Progress Note Date: 07/22/20 Principal diagnosis: Acute renal failure Hypotension Recent pneumonia COPD Hypertension hypertensive cardiovascular disease 07/22/2020, patient seen eval examined off of from your sitting upright in chair breathing comfortably, bedside sitter is present as morning noted to be more agitated and confused and refused a new IV line steroids has been switched to by mouth, patient can be moved out of the ICU appears to having ICU psychosis and delirium, 07/21/2020, patient seen eval examined awake and alert sitting upright in chair breathing comfortably, no chest pain is present hemodialysis catheter to be removed patient to be transferred out of the ICU, 07/20/2020, awake and alert sitting upright on the bed breathing comfortably, presence of pressors are off patient will be transferred out of the ICU patient is being monitored off of hemodialysis, labs reviewed July 19 2020, patient seen eval examined during the rounds labs reviewed medications reviewed, patient has no dialysis today, hemodynamic status status still marginal remains on 10 mics of levo fed, patient will be monitored observe in the ICU This is a 60-year-old obese male with past medical history of dyslipidemia hypertension hypertensive cardiovascular disease also has a history of the rheu matoid arthritis with recent pneumonia, came into the hospital with increasing shortness of breath high doesn't fatigue, it appears that patient presented with pneumonia a week ago was treated with outpatient antibiotics and steroids symptoms did not resolve but continued to get worse, he start retaining more fluids increased swelling of the lower extremity has been noted, his significant labs were elevated BUN and creatinine nephrology has been consulted along with vascular surgery to put hemodialysis catheter and start hemodialysis currently at the time of evaluation patient is undergoing hemodialysis he is on small dose 7 mics of levo fed to keep blood pressure/map over 65-75, Objective - Vital Signs Vital signs: Vital Signs Temp 98 F 07/22/20 14:00 Pulse 96 07/22/20 14:00 Resp 16 07/22/20 14:00 BP 104/83 07/22/20 14:00 Pulse Ox 96 07/22/20 14:00 Intake & Output 07/21/20 07/22/20 07/22/20 18:59 06:59 18:59 Intake Total 450 Output Total 1070 300 450 Balance -620 -300 -450 Intake: Intake, IV Titration 300 Amount Sodium Chloride 0.9% 1, 300 000 ml @ 75 mls/hr IV . [id number] [facility] Rx#:[id number] Oral 150 Output: Urine 1070 300 450 Other: Voiding Method Toilet Toilet Toilet Urinal Urinal Urinal # Voids 1 1 # Bowel Movements 1 - Exam - Constitutional General appearance: morbidly obese - EENT Eyes: EOMI, PERRLA Ears: bilateral: normal - Neck Carotids: bilateral: upstroke normal Thyroid: bilateral: normal size - Respiratory Respiratory: bilateral: diminished - Cardiovascular Rhythm: regular Heart sounds: normal: S1, S2 - Gastrointestinal General gastrointestinal: distended - Integumentary Integumentary: decreased turgor - Neurologic Neurologic: CNII-XII intact - Musculoskeletal Musculoskeletal: gait normal, generalized weakness, strength equal bilaterally - Psychiatric Psychiatric: A&O x's 3, appropriate affect, intact judgment & insight - Labs CBC & Chem 7: 07/22/20 08:03 07/22/20 08:03 Labs: Abnormal Lab Results - Last 24 Hours (Table) 07/22/20 07/22/20 Range/Units 08:03 08:03 RBC 3.90 L (4.30-5.90) m/uL Hgb 10.6 L (13.0-17.5) gm/dL Hct 34.1 L (39.0-53.0) % RDW 17.4 H (11.5-15.5) % Neutrophils # 9.1 H (1.3-7.7) k/uL Lymphocytes # 0.5 L (1.0-4.8) k/uL BUN 65 H (9-20) mg/dL Creatinine 1.93 H (0.66-1.25) mg/dL Glucose 154 H (74-99) mg/dL Albumin 3.1 L (3.5-5.0) g/dL Microbiology - Last 24 Hours (Table) 07/18/20 10:48 Blood Culture - Preliminary Blood No Growth after 96 hours Assessment and Plan Assessment: ICU delirium Acute renal failure Hypotension Recent pneumonia COPD Hypertension hypertensive cardiovascular disease Plan: Out of the ICU as planned Prednisone can be changed to oral and quickly tapered Hemodialysis as needed Vasopressors as needed Repeat labs in the morning including chest x-ray Time with Patient: Greater than 30
[2020-07-22] MEDS: ASCORBIC ACID 500 MG TAB PO SCH (20:00)
[2020-07-23] MEDS: LEVOTHYROXINE 75 MCG TAB PO SCH (05:24)
[2020-07-23] MEDS ORDERED: PANTOPRAZOLE 40 MG TABLET PO SCH (07:30)
[2020-07-23] MEDS: IPRATROPIUM-ALBUTEROL 3 ML NEB INHALATION SCH ×2 (07:45→12:34)
[2020-07-23 08:11] VITALS: BP 123/65; PULSE 92; RESP 16; TEMP 97.3
--- NOTE | 2020-07-23 08:33 | P.PN ---
Subjective Progress Note Date: 07/23/20 Principal diagnosis: This is a 60-year-old male known with rheumatoid arthritis previous empyema who came in with pneumonia and was seen with acute kidney injury from ATN from low blood pressure and sepsis, although blood cultures negative he had 1 dialysis session and then recovered renal function. Currently he has minimal cough is on room air denies any shortness of breath is able to walk around Good appetite no nausea vomiting diarrhea Blood pressure is normal, in the 120s otherwise while signs stable This baseline creatinine is 0.6 on 02/16/2020. Was 1.37 on 07/13/2020 Objective - Vital Signs Vital signs: Vital Signs Temp 97.3 F L 07/23/20 08:00 Pulse 92 07/23/20 08:00 Resp 16 07/23/20 08:00 BP 123/65 07/23/20 08:00 Pulse Ox 92 L 07/23/20 08:00 Intake & Output 07/22/20 07/23/20 07/23/20 18:59 06:59 18:59 Output Total 450 Balance -450 Output: Urine 450 Other: Voiding Method Toilet Toilet Urinal Urinal # Voids 3 0 Examination awake alert oriented comfortable on room air HEENT exam no JVP neck is supple no facial asymmetry Lungs are significant for bilateral wheezing with fair air entry bilaterally Heart sounds unremarkable for any murmur rub gallop Abdomen soft nontender Extremity exam was 2+ edema Neurologically awake alert oriented comfortable - Labs CBC & Chem 7: 07/22/20 08:03 07/22/20 08:03 Labs: Abnormal Lab Results - Last 24 Hours (Table) 07/22/20 Range/Units 08:03 BUN 65 H (9-20) mg/dL Creatinine 1.93 H (0.66-1.25) mg/dL Glucose 154 H (74-99) mg/dL Albumin 3.1 L (3.5-5.0) g/dL Microbiology - Last 24 Hours (Table) 07/18/20 10:48 Blood Culture - Preliminary Blood No Growth after 96 hours Assessment and Plan Plan: Impression 1. Acute kidney injury with severe ATN requiring one session of dialysis. Etiology is combination of low blood pressure pneumonia. Improved. Creatinine down to 1.93 2. Baseline renal function is normal 3. Blood pressure is controlled 4. Likely had COPD, has current wheezing. 5. Edema secondary to COPD, acute kidney injury, possibly cardiomyopathy Recommendation 1. We'll start Lasix 20 mg daily to improve his edema but watch carefully with blood pressure and renal function 2. Check urine protein to creatinine ratio
[2020-07-23] MEDS ORDERED: FUROSEMIDE 20 MG TAB PO SCH (09:00)
--- NOTE | 2020-07-23 12:35 | P.PN ---
Subjective Progress Note Date: 07/23/20 Principal diagnosis: Acute kidney injury, CHF A 60-year-old male patient who came into the emergency department with worsening shortness of breath. The patient also had diminished urine output and he was getting progressively more dry and he was not eating or drinking much over the past few days. He cannot even remember the last time he urinated. The patient denied having any fever. No reported cough. He did have some exertional dyspnea and shortness of breath whenever he laid down flat. He also noted that his legs are somewhat more swollen than the usual. Denied having any chest pain. No jaw pain. No back pain. No nausea. No vomiting. No abdominal pain. No altered mentation. The patient when he came into the emergency, he was quite hypoxic and was unable to speak up. This is and he was placed on 5 L about 2 by nasal cannula. Noted the patient was in the hospital back in 07/14/2020 and at that time the patient was seen by our service. He came in for symptoms of generalized weakness and fatigue and not feeling well. The patient has been known to our practice and he was seen by Dr. vaughn and the patient was ruled out for coronary bypass/Covid 19 infection. His chest x-ray showed some patchy perihilar and basilar pulmonary infiltrates compatible with pneumonia. The patient was discharged home with the next 24 hours on a combination of Omnicef and Zithromax and the patient was also given a prednisone burst taper. Nevertheless, it seems that his condition has progressed. Note that the patient is known to have rheumatoid arthritis and previous history of rheumatoid lung disease in addition to previous history of a loculated empyema requiring a chest tube placement back in January 2020. This was attributed to Streptococcus pneumonia. He has history of hypertension, hypothyroidism and previous history of DVT. He has had multiple bronchoscopies in the past and the last bronchoscopy was done in May 2070 and at that time the patient had some Inessa albicans. Note that the current admission showed significantly abnormal blood work. The patient had seen a bicarb of 18 with an anion gap of 15. Creatinine was 11.3, lactic acid level was at 2.1 drop down to 1.6. Troponin was at 0.04, proBNP level was 4190. D-dimer is at 3.2. Correlation profile is within normal limits. The white cell count is at 15.3 with a hemoglobin of 10.3 and platelets are at 262. UA was also abnormal and showed +1 bilirubin, rare WBCs and bacteria and rare RBCs. There was hiding casts. Coronavirus, Covid 19 screening came back negative. The patient is being seen by nephrology. The patient is being considered for hemodialysis. The chest x-ray showed perihilar pulmonary infiltrates and bilateral pleural effusions and there is worsening and bilateral edema/infiltrate consistent with fluid overload. There is also an air-fluid level in the left lung base that was seen on previous chest x-rays. On 07/19/2020 the patient is currently in the intensive care unit. The patient got admitted to the ICU and the patient was given a session of hemodialysis. He has a temporary dialysis cath in his right femoral vein. A total of 1.5 L of f luid was ultrafiltrate that along with dialysis. On today's blood work, his creatinine is at 7.47 and his potassium level is at 5.2 and the sodium level is at 136. Serum bicarbonate of 15. His IV fluids are running at the rate of 100 mL an hour of normal saline. Urine output is improving. He was quite low overnight and currently is in the order of 10-20 mL an hour his UA did not indicate any potential infection. There was +1 bilirubin, 10 WBCs, 4 RBCs. His lactic acid level is down to 1.6. His white cell count is at 20.1 with a hemoglobin of 10.6. He is resting comfortably in bed. Hemodynamically stable. He is requiring norepinephrine infusion which is running at 0.19 micrograms per kilogram per minute. I feel like his abdomen is slightly distended. Nevertheless, the patient although this is his normal abdominal distention and he denies having any nausea or emesis. His last bowel movement was few days back. The patient is seen today 07/20/2020 in follow-up in the intensive care unit. He is currently awake and alert oriented 3. Resting comfortably in bed. He did receive hemodialysis times one. He currently is maintaining O2 saturation in the 90s on 2 L/m per nasal cannula. He has D5W with 3 A of bicarb at 100 ML's per hour. Norepinephrine is currently off. This x-ray continues to reveal some mid and lower lung areas of patchy and confluent airspace disease. Blood culture reveals no growth. White count 10.1. Hemoglobin 9.2. Platelets 236. Sodium 135. Potassium 3.8. Bicarb 25. Creatinine 3.81. Glucose 265. He remains on bronchodilators, IV Solu-Medrol. The patient is seen today 07/21/2020 in follow-up in the intensive care unit. He is awake and alert in no acute distress. Currently sitting up in a chair at the bedside. Denies any worsening shortness of breath, cough or congestion. He is maintaining good O2 saturations in the 90s on 2 L/m per nasal cannula. 0.9 normal saline at 75 ML's per hour. He has been off his norepinephrine for greater than 12 hours. Blood cultures reveal no growth to date. He has received hemodialysis once since admission. White count 13.5. Hemoglobin 9.6. Sodium 135. Potassium 3.8. Creatinine 2.77. His only complaint today is difficulty sleeping at night. Chest x-ray reveals stable bibasilar infiltrates, cardiomegaly. The patient is seen today 07/22/2020 in follow-up in the intensive care unit. He is currently sitting up at the bedside. Awake and alert in no acute distress. Maintaining O2 saturation in the 90s on room air. No IV fluids. Appetite is good. He did have some episode of confusion last night after receiving Restoril for his prior complaints of inability to sleep. shuttlecock feather trimmer is at the bedside. This morning he is appropriate neurologically. Blood cultures reveal no growth. White count 10.1. Hemoglobin 10.6. Sodium 140. Potassium 3.8. Creatinine 1.93. He is making good urine on his own. Still with some lower extremity edema. Patient is seen today 07/23/2020 in follow-up on the regular medical floor. He is currently sitting up in a chair at the bedside. Awake and alert in no acute distress. He is anxious to go home. Continue O2 saturations in the 90s on room air. He's been afebrile. Hemodynamically stable. Blood culture reveals no growth. No new labs today. Remains on DuoNeb inhalations, Lasix 20 mg oral daily. Objective - Vital Signs Vital signs: Vital Signs Temp 97.3 F L 07/23/20 08:00 Pulse 92 07/23/20 08:00 Resp 16 07/23/20 08:00 BP 123/65 07/23/20 08:00 Pulse Ox 92 L 07/23/20 08:00 Intake & Output 07/22/20 07/23/20 07/23/20 18:59 06:59 18:59 Intake Total 100 Output Total 450 Balance -450 100 Intake: Oral 100 Output: Urine 450 Other: Voiding Method Toilet Toilet Urinal Urinal # Voids 3 0 - Exam GENERAL EXAM: Alert, oriented 60-year-old gentleman, on room air, up in a chair at the bedside, comfortable in no apparent distress. HEAD: Normocephalic. EYES: Normal reaction of pupils, equal size. NOSE: Clear with pink turbinates. THROAT: No erythema or exudates. NECK: No masses, no JVD. CHEST: No chest wall deformity. LUNGS: Equal air entry with coarse crackles in the bilateral posterior bases CVS: S1 and S2 normal with no audible murmur, regular rhythm. ABDOMEN: No hepatosplenomegaly, normal bowel sounds, no guarding or rigidity. SPINE: No scoliosis or deformity SKIN: No rashes CENTRAL NERVOUS SYSTEM: No focal deficits, tone is normal in all 4 extremities. EXTREMITIES: There is 1+ peripheral edema. No clubbing, no cyanosis. Perip heral pulses are intact. - Labs CBC & Chem 7: 07/22/20 08:03 07/22/20 08:03 Labs: Microbiology - Last 24 Hours (Table) 07/18/20 10:48 Blood Culture - Preliminary Blood No Growth after 96 hours Assessment and Plan Assessment: 1 Acute kidney injury. The patient's creatinine was up to 11 and the patient is a component of metabolic acidosis and the creatinine is down to 1.93 and the serum bicarb is at 25. The patient had an ultrasound the kidneys that showed no evidence of any hydronephrosis. Consider ATN. No signs of uremia. The patient underwent hemodialysis 07/18/2020 with 1.5 L of ultrafiltration. Urine output is improving. 2 Bilateral perihilar pulmonary infiltrates, consider interstitial edema versus pneumonia of the Covid 19 testing came back negative. History of rheumatoid lung 3 History of left lung empyema related to Streptococcus pneumonia back in December 2019 requiring insertion and subsequent removal of chest tube 4 Air-fluid level involving the left lung base, consider ongoing fluid collection/abscess 5 Acute hypoxemic respiratory failure currently on 2 L of oxygen by nasal cannula 6 Hypotension, likely secondary to intravascular volume depletion/dehydration. 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 Nato Gibbs for discharge from the pulmonary standpoint Follow up in our office in 1-2 weeks' time I, the cosigning physician, performed a history & physical examination of the patient. Lungs sounds with crackles in the bilateral posterior bases. Maintaining good O2 saturations in the 90s on room air. I discussed the assessment and plan of care with my nurse practitioner, Morena Cobb. I attest to the above note as dictated by her.
--- NOTE | 2020-07-23 13:10 | P.DS ---
Providers Date of admission: 07/18/20 13:24 Expected date of discharge: 07/23/20 Attending physician: Simeon Ordaz Consults: 07/18/20 12:41 Consult Physician Stat Consulting Provider: Marylu Gamino Consult Reason/Comments: acute renal failure, dyspnea, pleural effusions, pneumonia Do you want consulting provider notified?: Yes Consult Physician Stat Consulting Provider: Delilah Gracia Consult Reason/Comments: ARF Do you want consulting provider notified?: Already Contacted 07/18/20 13:40 Consult Physician Routine Consulting Provider: Makeda Meraz Consult Reason/Comments: vsacular access for dialysis Do you want consulting provider notified?: Yes, Notify in am 07/18/20 14:45 Consult Physician Routine Consulting Provider: Shahid Rodriguez Consult Reason/Comments: renal failure Do you want consulting provider notified?: Already Contacted Primary care physician: [facility] Course: 07/23/2020, patient seen eval examined, history status remains stable renal function continued to improve, patient is stable from renal pulmonary standpoint for discharge temporary dialysis catheter has been removed by vascular 07/22/2020, patient seen eval examined off of from your sitting upright in chair breathing comfortably, bedside sitter is present as morning noted to be more agitated and confused and refused a new IV line steroids has been switched to by mouth, patient can be moved out of the ICU appears to having ICU psychosis and delirium, 07/21/2020, patient seen eval examined awake and alert sitting upright in chair breathing comfortably, no chest pain is present hemodialysis catheter to be removed patient to be transferred out of the ICU, 07/20/2020, awake and alert sitting upright on the bed breathing comfortably, presence of pressors are off patient will be transferred out of the ICU patient is being monitored off of hemodialysis, labs reviewed July 19 2020, patient seen eval examined during the rounds labs reviewed medications reviewed, patient has no dialysis today, hemodynamic status status still marginal remains on 10 mics of levo fed, patient will be monitored observe in the ICU This is a 60-year-old obese male with past medical history of dyslipidemia hypertension hypertensive cardiovascular disease also has a history of the rheumatoid arthritis with recent pneumonia, came into the hospital with increasing shortness of breath high doesn't fatigue, it appears that patient presented with pneumonia a week ago was treated with outpatient antibiotics and steroids symptoms did not resolve but continued to get worse, he start retaining more fluids increased swelling of the lower extremity has been noted, his significant labs were elevated BUN and creatinine nephrology has been consulted along with vascular surgery to put hemodialysis catheter and start hemodialysis currently at the time of evaluation patient is undergoing hemodialysis he is on small dose 7 mics of levo fed to keep blood pressure/map over 65-75, - Vital Signs Vital signs: Vital Signs Temp 98 F 07/22/20 14:00 Pulse 96 07/22/20 14:00 Resp 16 07/22/20 14:00 BP 104/83 07/22/20 14:00 Pulse Ox 96 07/22/20 14:00 Intake & Output 07/21/20 07/22/20 07/22/20 18:59 06:59 18:59 Intake Total 450 Output Total 1070 300 450 Balance -620 -300 -450 Intake: Intake, IV Titration 300 Amount Sodium Chloride 0.9% 1, 300 000 ml @ 75 mls/hr IV . [id number] [facility] Rx#:[id number] Oral 150 Output: Urine 1070 300 450 Other: Voiding Method Toilet Toilet Toilet Urinal Urinal Urinal # Voids 1 1 # Bowel Movements 1 - Exam - Constitutional General appearance: morbidly obese - EENT Eyes: EOMI, PERRLA Ears: bilateral: normal - Neck Carotids: bilateral: upstroke normal Thyroid: bilateral: normal size - Respiratory Respiratory: bilateral: diminished - Cardiovascular Rhythm: regular Heart sounds: normal: S1, S2 - Gastrointestinal General gastrointestinal: distended - Integumentary Integumentary: decreased turgor - Neurologic Neurologic: CNII-XII intact - Musculoskeletal Musculoskeletal: gait normal, generalized weakness, strength equal bilaterally - Psychiatric Psychiatric: A&O x's 3, appropriate affect, intact judgment & insight CBC & Chem 7: 07/22/20 08:03 07/22/20 08:03 Labs: Abnormal Lab Results - Last 24 Hours (Table) 07/22/20 07/22/20 Range/Units 08:03 08:03 RBC 3.90 L (4.30-5.90) m/uL Hgb 10.6 L (13.0-17.5) gm/dL Hct 34.1 L (39.0-53.0) % RDW 17.4 H (11.5-15.5) % Neutrophils # 9.1 H (1.3-7.7) k/uL Lymphocytes # 0.5 L (1.0-4.8) k/uL BUN 65 H (9-20) mg/dL Creatinine 1.93 H (0.66-1.25) mg/dL Glucose 154 H (74-99) mg/dL Albumin 3.1 L (3.5-5.0) g/dL Microbiology - Last 24 Hours (Table) 07/18/20 10:48 Blood Culture - Preliminary Blood No Growth after 96 hours Assessment: ICU delirium Acute renal failure Hypotension Recent pneumonia COPD Hypertension hypertensive cardiovascular disease Procedures: Hemodialysis catheter, hemodialysis Patient Condition at Discharge: Good Plan - Discharge Summary Discharge Rx Participant: Yes New Discharge Prescriptions: New Furosemide [Lasix] 20 mg PO DAILY #30 tab Continue Levothyroxine Sodium [Synthroid] 150 mcg PO DAILY Albuterol Inhaler [Ventolin Hfa Inhaler] 2 puff INHALATION RT-QID PRN PRN Reason: Shortness Of Breath Losartan-Hctz 50-12.5 mg [Hyzaar 50-12.5] 1 tab PO DAILY Metoprolol Tartrate [Lopressor] 50 mg PO HS Cholecalciferol [Vitamin D3 (25 Mcg = 1000 Iu)] 2,000 unit PO HS Ipratropium-Albuterol Nebulize [Duoneb 0.5 mg-3 mg/3 ml Soln] 3 ml INHALATION RT-QID PRN PRN Reason: Shortness Of Breath Ascorbic Acid [Vitamin C] 2,000 mg PO HS Cefdinir [Omnicef] 300 mg PO Q12HR 10 Days #20 capsule Azithromycin [Zithromax] 500 mg PO DAILY 10 Days #10 tab Discharge Medication List Levothyroxine Sodium [Synthroid] 150 mcg PO DAILY 10/17/16 [History] Albuterol Inhaler [Ventolin Hfa Inhaler] 2 puff INHALATION RT-QID PRN 12/30/19 [History] Losartan-Hctz 50-12.5 mg [Hyzaar 50-12.5] 1 tab PO DAILY 12/30/19 [History] Metoprolol Tartrate [Lopressor] 50 mg PO HS 12/30/19 [History] Ascorbic Acid [Vitamin C] 2,000 mg PO HS 07/13/20 [History] Cholecalciferol [Vitamin D3 (25 Mcg = 1000 Iu)] 2,000 unit PO HS 07/13/20 [History] Ipratropium-Albuterol Nebulize [Duoneb 0.5 mg-3 mg/3 ml Soln] 3 ml INHALATION RT-QID PRN 07/13/20 [History] Azithromycin [Zithromax] 500 mg PO DAILY 10 Days #10 tab 07/14/20 [Rx] Cefdinir [Omnicef] 300 mg PO Q12HR 10 Days #20 capsule 07/14/20 [Rx] Furosemide [Lasix] 20 mg PO DAILY #30 tab 07/23/20 [Rx] Follow up Appointment(s)/Referral(s): Mohsen Morris DO [Primary Care Provider] - 1-2 days Discharge Disposition: HOME SELF-CARE
== END 2020-07-23 13:39 | disposition home or self-care (01) | DRG 871 ==
LOC: EC 10:02 → 2SICU 13:24 → 4SSUR 07-22 15:06
PROVIDERS: ADMIT Internal Medicine Sleep Medicine; ATTEND Internal Medicine Sleep Medicine
DX: A41.9 Sepsis, unspecified organism (principal); N17.0 Acute kidney failure with tubular necrosis; J96.01 Acute respiratory failure with hypoxia; J18.9 Pneumonia, unspecified organism; R65.21 Severe sepsis with septic shock; E87.2 Acidosis; I13.0 Hypertensive heart and chronic kidney disease with heart failure and stage 1 through stage 4 chronic kidney disease, or unspecified chronic kidney disease; J44.0 Chronic obstructive pulmonary disease with (acute) lower respiratory infection; M05.10 Rheumatoid lung disease with rheumatoid arthritis of unspecified site; E03.9 Hypothyroidism, unspecified; E66.01 Morbid (severe) obesity due to excess calories; E78.5 Hyperlipidemia, unspecified; E86.0 Dehydration; E86.1 Hypovolemia; E87.5 Hyperkalemia; I50.9 Heart failure, unspecified; J44.9 Chronic obstructive pulmonary disease, unspecified; Z79.890 Hormone replacement therapy; Z20.822 Contact with and (suspected) exposure to COVID-19; N18.9 Chronic kidney disease, unspecified; E83.42 Hypomagnesemia; Z86.718 Personal history of other venous thrombosis and embolism; Z87.01 Personal history of pneumonia (recurrent); Z87.442 Personal history of urinary calculi; Z87.891 Personal history of nicotine dependence; Z90.89 Acquired absence of other organs; Z79.2 Long term (current) use of antibiotics; Z79.899 Other long term (current) drug therapy; Z80.1 Family history of malignant neoplasm of trachea, bronchus and lung
CPT/HCPCS: 36415; 71045; 71046; 71250; 74019; 76770; 80048; 80053; 81001; 83605; 83735; 83880; 84484; 85025; 85027; 85379; 85610; 85730; 86706; 87040; 87340; 87635; 90935; 93005; 94640; 96365; 96366; 96367; 96368; 99291

== ENCOUNTER 2020-08-08 13:04 | Inpatient (IN) | payer BC ==
[2020-08-08] MEDS ORDERED: SODIUM CHLORIDE 0.9% 500 ML 500 ML IV STA ×3 (13:17→14:38)
[2020-08-08] MEDS ORDERED: SODIUM CHLORIDE 0.9% 1,000 ML IV STA ×2 (13:17→13:48)
[2020-08-08] MEDS ORDERED: ONDANSETRON 4 MG/2 ML VIAL IVP STA (13:17)
[2020-08-08] MEDS ORDERED: FAMOTIDINE 20 MG/2 ML VIAL IV STA (13:18)
--- NOTE | 2020-08-08 13:21 | ED ---
General Adult HPI - General Stated complaint: Weakness Time Seen by Provider: 08/08/20 13:12 Source: patient, RN notes reviewed Limitations: no limitations - History of Present Illness Initial comments: Patient is a pleasant 60-year-old male presenting to the emergency Department with general weakness. Onset of symptoms was over the past few days. Patient has having nausea vomiting and diarrhea. Patient states he has been vomiting for about 3 days, more than 4-5 times a day. Decreased oral intake. Patient is also having diarrhea a couple times per day. No abdominal pain. Patient feels fatigued and achy throughout. Patient was in the hospital several weeks ago with lung infection. Patient did not have coronavirus. - Related Data Home Medications Medication Instructions Recorded Confirmed Levothyroxine Sodium [Synthroid] 150 mcg PO DAILY 10/17/16 08/08/20 Albuterol Inhaler [Ventolin Hfa 2 puff INHALATION RT-QID PRN 12/30/19 08/08/20 Inhaler] Losartan-Hctz 50-12.5 mg [Hyzaar 1 tab PO DAILY 12/30/19 08/08/20 50-12.5] Metoprolol Tartrate [Lopressor] 50 mg PO HS 12/30/19 08/08/20 Ascorbic Acid [Vitamin C] 2,000 mg PO HS 07/13/20 08/08/20 Cholecalciferol [Vitamin D3 (25 2,000 unit PO HS 07/13/20 08/08/20 Mcg = 1000 Iu)] Ipratropium-Albuterol Nebulize 3 ml INHALATION RT-QID PRN 07/13/20 08/08/20 [Duoneb 0.5 mg-3 mg/3 ml Soln] Furosemide [Lasix] 20 mg PO DAILY PRN 08/08/20 08/08/20 Allergies Allergy/AdvReac Type Severity Reaction Status Date / Time No Known Allergies Allergy Verified 08/08/20 14:29 Review of Systems ROS Statement: Those systems with pertinent positive or pertinent negative responses have been documented in the HPI. ROS Other: All systems not noted in ROS Statement are negative. Constitutional: Denies: fever, chills Eyes: Denies: eye pain ENT: Denies: ear pain Respiratory: Denies: dyspnea Cardiovascular: Denies: chest pain Endocrine: Reports: fatigue Gastrointestinal: Reports: nausea, vomiting, diarrhea. Denies: abdominal pain Genitourinary: Denies: dysuria Musculoskeletal: Denies: back pain Skin: Denies: rash Neurological: Denies: headache, confusion Past Medical History Past Medical History: Deep Vein Thrombosis (DVT), Hypertension, Rheumatoid Arthritis (RA), Thyroid Disorder Additional Past Medical History / Comment(s): Mult Rt foot infections after surgery, last time 05/2019, had PICC Line for AB and developed bloot clot. Hx kidney stones. 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 History of Any Multi-Drug Resistant Organisms: None Reported Past Surgical History: Back Surgery, Tonsillectomy Additional Past Surgical History / Comment(s): Right foot surgery, repair herniated disc, plate removed rt foot. CTR kim,bronchoscopy X4 Past Anesthesia/Blood Transfusion Reactions: Previous Problems w/ Anesthesia Additional Past Anesthesia/Blood Transfusion Reaction / Comment(s): slow to awaken x1. Past Psychological History: No Psychological Hx Reported Smoking Status: Former smoker Past Alcohol Use History: None Reported Additional Past Alcohol Use History / Comment(s): QUIT SMOKING 2003, smoked 15 years, 1 - 1 1/2 ppd Past Drug Use History: None Reported - Past Family History Mother Family Medical History: Cancer Additional Family Medical History / Comment(s): lung with mets brain Father Family Medical History: No Reported History Additional Family Medical History / Comment(s): states, "he just ." General Exam Limitations: no limitations General appearance: alert, in no apparent distress Head exam: Present: normocephalic Eye exam: Present: normal appearance, PERRL, EOMI. Absent: nystagmus ENT exam: Present: normal oropharynx Neck exam: Present: normal inspection Respiratory exam: Present: normal lung sounds bilaterally Cardiovascular Exam: Present: tachycardia GI/Abdominal exam: Present: soft. Absent: tenderness Extremities exam: Present: normal inspection. Absent: pedal edema, calf tenderness Neurological exam: Present: alert, CN II-XII intact. Absent: motor sensory deficit Expanded Neurological exam: Present: protecting the airway Patient oriented to: Present: person, place, time Speech: Present: fluid speech Sensory exam: Upper Extremity Light Touch: Normal, Lower Extremity Light Touch: Normal Motor strength exam: RUE: 5, LUE: 5, RLE: 5, LLE: 5 Eye Response: (4) open spontaneously Motor Response: (6) obeys commands Verbal Response: (5) oriented Psychiatric exam: Present: normal affect, normal mood Skin exam: Present: normal color Course Vital Signs 08/08/20 08/08/20 08/08/20 13:11 13:13 13:20 Temperature 98.5 F Pulse Rate 109 H 111 H Respiratory 18 18 Rate Blood Pressure 69/43 66/39 O2 Sat by Pulse 73 L 95 98 Oximetry 08/08/20 08/08/20 08/08/20 13:30 13:40 13:50 Temperature Pulse Rate 110 H 106 H 107 H Respiratory 18 17 17 Rate Blood Pressure 69/39 65/55 67/46 O2 Sat by Pulse 97 97 97 Oximetry 08/08/20 08/08/20 08/08/20 14:00 14:10 14:20 Temperature Pulse Rate 106 H 107 H 105 H Respiratory 18 18 17 Rate Blood Pressure 64/39 70/36 64/40 O2 Sat by Pulse 98 97 97 Oximetry 08/08/20 14:30 Temperature Pulse Rate 105 H Respiratory 18 Rate Blood Pressure 70/41 O2 Sat by Pulse 97 Oximetry - Reevaluation(s) Reevaluation #1: 08/08/20 15:37 Age remains hypotensive despite 3 and half liters and Decadron. Central line will be placed. 08/08/20 15:48 Case was discussed with Dr. Marie, who will admit. Patient recently transferred to his care. Dr. Gamino has been paged for consult. Ur is concern for septic shock diagnosed at 1540. Blood culture and lactic acid have been ordered. IV antibiotics have been ordered. Fluid bolus has been done as well as levophed and central line. EKG Findings - EKG Comments: EKG Findings:: Sinus tach cardia 112. WA 146. QRS 94. QT 364. QTC 496. Normal axis. Incomplete right bundle-branch block. Nonspecific ST-T. Procedures - Central Line Placement Right SC Consent Obtained: verbal consent, written consent, emergent situation Patient Placed on Monitor/Pulse Ox: Yes Prep: mask, gown, gloves Central Line Prep: Chlorhexidine scrub Local Anesthesia Used: Lidocaine 1% Amount of Anesthesia Used (mls): 2 Ultrasound Used for Placement: No Central Line Lumen Inserted: triple Central Line Position: good blood return, all ports aspirated, flushed, capped, sutured in place with 3-0 nylon Dressing Applied: Tegaderm Patient Tolerated Procedure: well Complications: none Medical Decision Making - Medical Decision Making Patient and family were reevaluated multiple times. Also they are updated on results and plan. - Lab Data Result diagrams: 08/08/20 13:24 08/08/20 13:24 Lab Results 08/08/20 08/08/20 08/08/20 Range/Units 13:24 13:24 13:24 WBC 20.7 H (3.8-10.6) k/uL RBC 4.10 L (4.30-5.90) m/uL Hgb 10.6 L (13.0-17.5) gm/dL Hct 34.7 L (39.0-53.0) % MCV 84.7 (80.0-100.0) fL MCH 25.8 (25.0-35.0) pg MCHC 30.5 L (31.0-37.0) g/dL RDW 17.5 H (11.5-15.5) % Plt Count 345 (150-450) k/uL MPV 9.5 Neutrophils % 70 % Lymphocytes % 17 % Monocytes % 9 % Eosinophils % 2 % Basophils % 1 % Neutrophils # 14.5 H (1.3-7.7) k/uL Lymphocytes # 3.5 (1.0-4.8) k/uL Monocytes # 1.8 H (0-1.0) k/uL Eosinophils # 0.5 (0-0.7) k/uL Basophils # 0.1 (0-0.2) k/uL Hypochromasia Moderate Anisocytosis Slight PT 11.7 (9.0-12.0) sec INR 1.1 (<1.2) APTT 19.3 L (22.0-30.0) sec Sodium 134 L (137-145) mmol/L Potassium 3.6 (3.5-5.1) mmol/L Chloride 100 (98-107) mmol/L Carbon Dioxide 16 L (22-30) mmol/L Anion Gap 18 mmol/L BUN 72 H (9-20) mg/dL Creatinine 7.63 H* (0.66-1.25) mg/dL Est GFR (CKD-EPI)AfAm 8 (>60 ml/min/1.73 sqM) Est GFR (CKD-EPI)NonAf 7 (>60 ml/min/1.73 sqM) Glucose 106 H (74-99) mg/dL Plasma Lactic Acid Caden (0.7-2.0) mmol/L Calcium 8.5 (8.4-10.2) mg/dL Magnesium 1.6 (1.6-2.3) mg/dL Total Bilirubin 0.7 (0.2-1.3) mg/dL AST 19 (17-59) U/L ALT 13 (4-49) U/L Alkaline Phosphatase 112 (38-126) U/L Creatine Kinase 36 L (55-170) U/L Troponin I (0.000-0.034) ng/mL Total Protein 6.5 (6.3-8.2) g/dL Albumin 2.7 L (3.5-5.0) g/dL Coronavirus (PCR) (Not Detectd) 08/08/20 08/08/20 08/08/20 Range/Units 13:24 13:24 13:37 WBC (3.8-10.6) k/uL RBC (4.30-5.90) m/uL Hgb (13.0-17.5) gm/dL Hct (39.0-53.0) % MCV (80.0-100.0) fL MCH (25.0-35.0) pg MCHC (31.0-37.0) g/dL RDW (11.5-15.5) % Plt Count (150-450) k/uL MPV Neutrophils % % Lymphocytes % % Monocytes % % Eosinophils % % Basophils % % Neutrophils # (1.3-7.7) k/uL Lymphocytes # (1.0-4.8) k/uL Monocytes # (0-1.0) k/uL Eosinophils # (0-0.7) k/uL Basophils # (0-0.2) k/uL Hypochromasia Anisocytosis PT (9.0-12.0) sec INR (<1.2) APTT (22.0-30.0) sec Sodium (137-145) mmol/L Potassium (3.5-5.1) mmol/L Chloride (98-107) mmol/L Carbon Dioxide (22-30) mmol/L Anion Gap mmol/L BUN (9-20) mg/dL Creatinine (0.66-1.25) mg/dL Est GFR (CKD-EPI)AfAm (>60 ml/min/1.73 sqM) Est GFR (CKD-EPI)NonAf (>60 ml/min/1.73 sqM) Glucose (74-99) mg/dL Plasma Lactic Acid Caden 2.4 H* (0.7-2.0) mmol/L Calcium (8.4-10.2) mg/dL Magnesium (1.6-2.3) mg/dL Total Bilirubin (0.2-1.3) mg/dL AST (17-59) U/L ALT (4-49) U/L Alkaline Phosphatase (38-126) U/L Creatine Kinase (55-170) U/L Troponin I <0.012 (0.000-0.034) ng/mL Total Protein (6.3-8.2) g/dL Albumin (3.5-5.0) g/dL Coronavirus (PCR) Not Detected (Not Detectd) Critical Care Time Critical Care Time: Yes Total Critical Care Time: 35 Disposition Clinical Impression: Pneumonia, Septic shock, Acute renal failure (ARF) Disposition: ADMITTED IP TO THIS [facility] Condition: Critical Is patient prescribed a controlled substance at d/c from ED?: No Referrals: Mohsen Morris DO [STAFF PHYSICIAN] - 1-2 days Decision Time: 15:50
[2020-08-08 13:55] LABS: Albumin 2.7 g/dL (3.5-5.0); Calcium 8.5 mg/dL (8.4-10.2); Magnesium 1.6 mg/dL (1.6-2.3); Potassium 3.6 mmol/L (3.5-5.1); Total Bilirubin 0.7 mg/dL (0.2-1.3); Total Protein 6.5 g/dL (6.3-8.2)
[2020-08-08 13:56] LABS: INR 1.1 (<1.2); Prothrombin Time 11.7 sec (9.0-12.0)
--- NOTE | 2020-08-08 13:56 | XR ---
EXAMINATION TYPE: XR chest 1V portable DATE OF EXAM: 08/08/2020 Comparison: 07/21/2020 Clinical History: 60-year-old male weak Findings: Heart remains enlarged. Patchy mid and lower lung opacity shows slight improvement. There is redemons trated small left effusion. Impression: Cardiomegaly with patchy mid and lower lung opacities with small left effusion. Consider pneumonia or sequela of CHF.
[2020-08-08 13:59] LABS: Anisocytosis Slight; Basophils # (A) 0.1 k/uL (0-0.2); Basophils % (A) 1 %; Eosinophils # (A) 0.5 k/uL (0-0.7); Eosinophils % (A) 2 %; HCT 34.7 % (39.0-53.0); HGB 10.6 gm/dL (13.0-17.5); Hypochromasia Moderate; Lymphocytes # (A) 3.5 k/uL (1.0-4.8); Lymphocytes % (A) 17 %; MCH 25.8 pg (25.0-35.0); MCHC 30.5 g/dL (31.0-37.0); MCV 84.7 fL (80.0-100.0); Mean Platelet Volume 9.5; Monocytes # (A) 1.8 k/uL (0-1.0); Monocytes % (A) 9 %; Neutrophils # (A) 14.5 k/uL (1.3-7.7); Neutrophils % (A) 70 %; Platelet Count 345 k/uL (150-450); RDW 17.5 % (11.5-15.5); WBC 20.7 k/uL (3.8-10.6)
[2020-08-08 14:04] LABS: Partial Thromboplastin Time 19.3 sec (22.0-30.0)
[2020-08-08] MEDS ORDERED: DEXAMETHASONE SOD PHOSPHATE 10 MG/ML 1 ML VIAL IV STA (14:16)
[2020-08-08] MEDS ORDERED: MORPHINE SULFATE 2 MG/ML SYRINGE IVP STA (15:25)
[2020-08-08] MEDS ORDERED: PIPERACILLIN-TAZOBACTAM 3.375 GM in SODIUM CHLORIDE 0.9% 100 ML IVPB STA (15:42)
[2020-08-08] MEDS: NOREPINEPHRINE 32 MG in SODIUM CHLORIDE 0.9% 218 ML IV SCH (15:42)
[2020-08-08] MEDS ORDERED: PNEUMONIA PROTOCOL UTILIZED 1 EACH MISC PO PRN (15:42)
[2020-08-08] MEDS ORDERED: LEVOFLOXACIN 500MG-D5W PMX 500 MG in DEXTROSE/WATER 1 100ML.BAG IVPB STA (15:43)
[2020-08-08] MEDS ORDERED: NALOXONE 0.4 MG/ML 1 ML VIAL IV PRN (15:44)
[2020-08-08] MEDS ORDERED: SODIUM CHLORIDE 0.9% 1,000 ML IV SCH (15:45)
--- NOTE | 2020-08-08 15:56 | XR ---
EXAMINATION TYPE: XR chest 1V portable DATE OF EXAM: 08/08/2020 Comparison: 08/08/2020 Clinical History: 60-year-old male central line placement Findings: Right subclavian CVC tip in the mid SVC. Heart mildly enlarged. Patchy mid and lower lung opacities a nd small left effusion persists. No appreciable pneumothorax. Impression: New right subclavian CVC with tip at the mid SVC. Otherwise, exam unchanged from earlier today.
--- NOTE | 2020-08-08 16:13 | XR ---
EXAMINATION TYPE: XR chest 1V portable DATE OF EXAM: 08/08/2020 COMPARISON: Chest x-ray from earlier today. HISTORY: Some onset chest pain status post central line placement. TECHNIQUE: Single AP portable frontal upright view of the chest is obtained. FINDINGS: Stable right subclavian central venous catheter. Persistent cardiomegaly with atherosclerot ic thoracic aorta and moderate mid to lower lung opacities bilaterally. Small left pleural effusion r edemonstrated. Background chronic parenchymal change. Osseous structures intact. An azygos lobe/fissu re again seen, normal variant. IMPRESSION: Findings consistent with CHF exacerbation remain present. Persistent cardiomegaly with m ild to moderate alveolar and interstitial edema and small left pleural effusion. Areas of some underl melissa acute infiltrate not excluded. No significant change from x-rays earlier today.
[2020-08-08 17:05] LABS: Glucose,Whole Blood 83 mg/dL (75-99)
--- NOTE | 2020-08-08 17:06 | P.CNPUL ---
History of Present Illness Consult date: 08/08/20 Reason for consult: dyspnea Chief complaint: Generalized weakness, fatigue, acute kidney injury History of present illness: 60-year-old male patient presented emergency department because of generalized weakness and fatigue. Symptoms over the past few days. He had increased nausea vomiting and diarrhea. He was vomiting for the past 3 days around 4-5 times on a daily basis. He also obviously had a diminished oral intake. He had couple of diarrhea episodes on a daily basis. No abdominal pain. The patient is known to have history of rheumatoid arthritis along with previous history of rheumatoid lung disease in addition to a previous history of loculated empyema requiring chest tube placement back in January 2020. This was attributed to streptococcal pneumonia. He has also history of hypertension, hypothyroidism and previous history of DVT. 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 He was subsequently hospitalized on 07/18/2020 and his coronavirus/Covid 19 testing came back negative. He did have an acute kidney injury and his creatinine was up to 11 and he also had a component of metabolic acidosis. The patient was given IV fluids and pressors and his condition was stabilized. A CAT scan of the chest that was done at that time showed chronic changes in lower lungs related to rheumatoid arthritis. He also had a new consolidation and elbow grams in the left hilar region and new multifocal grou ndglass organizing pneumonia in the right upper lobe for which she was treated. Doppler of the lower extremity showed no evidence of any DVT.. During this current admission, the patient's creatinine was again up to his BUN is at 72 and this serum bicarbonate 16 and there is an anion gap of 18. His CPK was 36, liver function tests are within normal limits. Lactic acid level of 2.4 and troponins were negative. The repeat Covid 19 testing came back again negative. The chest x-ray shows a component of CHF with cardiomegaly and mild to moderate alveolar and interstitial edema and a small left-sided pleural effusion. Review of Systems Constitutional: Reports fatigue, Reports fever, Reports weakness, Denies chills Eyes: denies blurred vision, denies pain Ears, nose, mouth and throat: Denies headache, Denies sore throat Cardiovascular: Denies chest pain, Denies shortness of breath Respiratory: Reports dyspnea, Denies cough Gastrointestinal: Denies abdominal pain, Denies diarrhea, Denies nausea, Denies vomiting Musculoskeletal: Denies myalgias Integumentary: Denies pruritus, Denies rash Neurological: Denies numbness, Denies weakness Psychiatric: Denies anxiety, Denies depression Endocrine: Denies fatigue, Denies weight change Past Medical History Past Medical History: Deep Vein Thrombosis (DVT), Hypertension, Neurologic Disorder, Rheumatoid Arthritis (RA), Thyroid Disorder Additional Past Medical History / Comment(s): Rheumatoid arthritis, 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 [facility] kim,bronchoscopy X4 Past Anesthesia/Blood Transfusion Reactions: Previous Problems w/ Anesthesia Additional Past Anesthesia/Blood Transfusion Reaction / Comment(s): slow to awaken x1. Past Psychological History: No Psychological Hx Reported Smoking Status: Former smoker Past Alcohol Use History: None Reported Additional Past Alcohol Use History / Comment(s): QUIT SMOKING 2003, smoked 15 years, 1 - 1 1/2 ppd Past Drug Use History: None Reported - Past Family History Mother Family Medical History: Cancer Additional Family Medical History / Comment(s): lung with mets brain Father Family Medical History: No Reported History Additional Family Medical History / Comment(s): states, "he just ." Medications and Allergies Home Medications Medication Instructions Recorded Confirmed Type Levothyroxine Sodium [Synthroid] 150 mcg PO DAILY 10/17/16 08/08/20 History Albuterol Inhaler [Ventolin Hfa 2 puff INHALATION RT-QID PRN 12/30/19 08/08/20 History Inhaler] Losartan-Hctz 50-12.5 mg [Hyzaar 1 tab PO DAILY 12/30/19 08/08/20 History 50-12.5] Metoprolol Tartrate [Lopressor] 50 mg PO HS 12/30/19 08/08/20 History Ascorbic Acid [Vitamin C] 2,000 mg PO HS 07/13/20 08/08/20 History Cholecalciferol [Vitamin D3 (25 2,000 unit PO HS 07/13/20 08/08/20 History Mcg = 1000 Iu)] Ipratropium-Albuterol Nebulize 3 ml INHALATION RT-QID PRN 07/13/20 08/08/20 History [Duoneb 0.5 mg-3 mg/3 ml Soln] Furosemide [Lasix] 20 mg PO DAILY PRN 08/08/20 08/08/20 History Allergies Allergy/AdvReac Type Severity Reaction Status Date / Time No Known Allergies Allergy Verified 08/08/20 14:29 Physical Exam Vitals: Vital Signs Temp Pulse Resp BP Pulse Ox 08/08/20 16:32 103 H 18 71/46 99 08/08/20 16:07 107 H 79/52 99 08/08/20 16:00 105 H 18 83/55 100 08/08/20 15:55 85 18 122/72 99 08/08/20 15:49 107 H 18 66/40 95 08/08/20 15:35 108 H 18 66/40 95 08/08/20 14:30 105 H 18 70/41 97 08/08/20 14:20 105 H 17 64/40 97 08/08/20 14:10 107 H 18 70/36 97 08/08/20 14:00 106 H 18 64/39 98 08/08/20 13:50 107 H 17 67/46 97 08/08/20 13:40 106 H 17 65/55 97 08/08/20 13:30 110 H 18 69/39 97 08/08/20 13:20 111 H 18 66/39 98 08/08/20 13:13 98.5 F 109 H 18 69/43 95 08/08/20 13:11 73 L Intake and Output 08/08/20 08/08/20 08/08/20 06:59 14:59 22:59 Intake Total 2.037 Balance 2.037 Intake: Intake, IV Titration 2.037 Amount Norepinephrine 32 mg In 2.037 Sodium Chloride 0.9% 218 ml @ 0.05 MCG/KG/MIN 2. 445 mls/hr IV .Q24H [facility] Rx#:[id number] Other: Weight 104.326 kg GENERAL EXAM: Alert, very pleasant, 60-year-old white male, on 4 L of Oxymizer nasal cannula, with pulse ox of 95% comfortable in no apparent distress. HEAD: Normocephalic/atraumatic. EYES: Normal reaction of pupils, equal size. Conjunctiva pink, sclera white. NOSE: Clear with pink turbinates. THROAT: No erythema or exudates. NECK: No masses, no JVD, no thyroid enlargement, no adenopathy. CHEST: No chest wall deformity. Symmetrical expansion. LUNGS: Equal air entry with some bibasilar crackles, no major wheezing or coughing or rhonchi CVS: Regular rate and rhythm, normal S1 and S2, no gallops, no murmurs, no rubs ABDOMEN: Soft, nontender. No hepatosplenomegaly, normal bowel sounds, no guarding or rigidity. EXTREMITIES: No clubbing, no edema, no cyanosis, 2+ pulses and upper and lower extremities. MUSCULOSKELETAL: Muscle strength and tone normal. SPINE: No scoliosis or deformity SKIN: No rashes CENTRAL NERVOUS SYSTEM: Alert and oriented -3. No focal deficits, tone is normal in all 4 extremities. PSYCHIATRIC: Alert and oriented -3. Appropriate affect. Intact judgment and insight. Results - Laboratory Findings CBC and BMP: 08/08/20 13:24 08/08/20 13:24 PT/INR, D-dimer PT 11.7 sec (9.0-12.0) 08/08/20 13:24 INR 1.1 (<1.2) 08/08/20 13:24 Abnormal lab findings: Abnormal Labs 08/08/20 08/08/20 08/08/20 13:24 13:24 13:24 WBC 20.7 H RBC 4.10 L Hgb 10.6 L Hct 34.7 L MCHC 30.5 L RDW 17.5 H Neutrophils # 14.5 H Monocytes # 1.8 H APTT 19.3 L Sodium 134 L Carbon Dioxide 16 L BUN 72 H Creatinine 7.63 H* Glucose 106 H Plasma Lactic Acid Caden Creatine Kinase 36 L Albumin 2.7 L 08/08/20 13:24 WBC RBC Hgb Hct MCHC RDW Neutrophils # Monocytes # APTT Sodium Carbon Dioxide BUN Creatinine Glucose Plasma Lactic Acid Caden 2.4 H* Creatine Kinase Albumin - Diagnostic Findings Chest x-ray: image reviewed Assessment and Plan Plan: 1 acute kidney injury secondary to intravascular volume depletion/dehydration. Previous ultrasound the kidneys showed no evidence of any hydronephrosis. The patient has had a similar episode of acute kidney injury/ATN on previous hospitalization the patient renal function remained recovered with IV fluids. 2 acute hypotension, probably secondary to intravascular volume depletion and the patient is currently on IV fluids and pressors 3 chronic perihilar pulmonary infiltrates with increased interstitial changes in the lung bases more so on the right, probably a combination of rheumatoid lung and chronic scarring related to a previous pneumonia/empyema 4 previous tests normal, and pneumonia back in December 2019 requiring a chest tube insertion for an empyema 5 acute hypoxic respiratory failure currently on 4 L about 2 by nasal cannula 6 rheumatoid arthritis with rheumatoid lungs/fibrosis maintained on a combination of Arava and prednisone outpatient basis 7 hypertension 8 hypothyroidism 9 previous history of foot infections requiring of antibiotics 10 previous history of DVT 11 persistent nausea and emesis and diarrhea. Consider underlying C. diff colitis 12 leukocytosis 13 mild chronic normocytic anemia 14 mild lactic acidosis with anion gap metabolic acidosis Plan The patient has already received a total of 3 L. We'll continue normal saline at the rate of 150 mL an hour Monitor urine output and creatinine Repeat ultrasound the kidneys Continue pressors and monitor CVP and wean off the pressors as needed to main tain a mean arterial pressure above 60 Continue Zosyn continue Levaquin Resume all medications including Synthroid and hold the metoprolol and Hyzaar for now
[2020-08-08 17:40] LABS: Amorphous Sediment,Urine Rare /hpf; Appearance,Urine Cloudy (Clear); Bacteria,Urine Occasional /hpf; Bilirubin,Urine Negative (Negative); Blood,Urine Small (Negative); Color,Urine Yellow; Glucose,Urine (UA) Negative (Negative); Hyaline Casts,Urine 89 /lpf (0-2); Ketones,Urine Negative (Negative); Leukocyte Esterase,Urine Small (Negative); Mucus,Urine Few /hpf; Nitrite,Urine Negative (Negative); Protein,Urine 1+ (Negative); RBC,Urine 6 /hpf (0-5); Specific Gravity,Urine 1.023 (1.001-1.035); Squamous Epithelial Cell,Urine 1 /hpf (0-4); Urobilinogen,Urine <2.0 mg/dL (<2.0); WBC,Urine 19 /hpf (0-5)
[2020-08-08] MEDS: MORPHINE SULFATE 4 MG/ML SYRINGE IV PRN (18:24)
[2020-08-08] MEDS ORDERED: WATER FOR INJECTION, STERILE 1,000 ML with SODIUM ACETATE 150 MEQ IV SCH ×2 (18:45)
[2020-08-08] MEDS: DEXTROSE 5% IN WATER 1,000 ML with SODIUM BICARB (1 MEQ/ML) 150 ML IV SCH (20:49)
[2020-08-09] MEDS: PIPERACILLIN-TAZOBACTAM 3.375 GM in SODIUM CHLORIDE 0.9% 100 ML IVPB SCH ×3 (00:15→20:44)
[2020-08-09 03:37] LABS: Anisocytosis Slight; Basophils # (A) 0.1 k/uL (0-0.2); Basophils % (A) 0 %; Eosinophils % (A) 0 %; HCT 39.8 % (39.0-53.0); HGB 11.9 gm/dL (13.0-17.5); Hypochromasia Marked; Lymphocytes # (A) 0.8 k/uL (1.0-4.8); Lymphocytes % (A) 5 %; MCH 26.4 pg (25.0-35.0); MCV 88.3 fL (80.0-100.0); Mean Platelet Volume 8.2; Monocytes # (A) 0.5 k/uL (0-1.0); Monocytes % (A) 3 %; Neutrophils # (A) 16.3 k/uL (1.3-7.7); Neutrophils % (A) 92 %; Platelet Count 335 k/uL (150-450); RBC 4.51 m/uL (4.30-5.90); RDW 17.6 % (11.5-15.5); WBC 17.8 k/uL (3.8-10.6)
[2020-08-09 03:55] LABS: Albumin 2.9 g/dL (3.5-5.0); Calcium 8.3 mg/dL (8.4-10.2); Magnesium 1.7 mg/dL (1.6-2.3); Phosphorus 8.6 mg/dL (2.5-4.5); Potassium 4.3 mmol/L (3.5-5.1); Total Bilirubin 0.7 mg/dL (0.2-1.3); Total Protein 6.8 g/dL (6.3-8.2)
[2020-08-09] MEDS: DEXTROSE 5% IN WATER 1,000 ML with SODIUM BICARB (1 MEQ/ML) 150 ML IV SCH ×3 (04:40→18:41)
--- NOTE | 2020-08-09 07:10 | P.PN ---
Subjective Progress Note Date: 08/09/20 60-year-old male patient presented emergency department because of generalized weakness and fatigue. Symptoms over the past few days. He had increased nausea vomiting and diarrhea. He was vomiting for the past 3 days around 4-5 times on a daily basis. He also obviously had a diminished oral intake. He had couple of diarrhea episodes on a daily basis. No abdominal pain. The patient is known to have history of rheumatoid arthritis along with previous history of rheumatoid lung disease in addition to a previous history of loculated empyema requiring chest tube placement back in January 2020. This was attributed to streptococcal pneumonia. He has also history of hypertension, hypothyroidism and previous history of DVT. 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 He was subsequently hospitalized on 07/18/2020 and his coronavirus/Covid 19 testing came back negative. He did have an acute kidney injury and his creatinine was up to 11 and he also had a component of metabolic acidosis. The patient was given IV fluids and pressors and his condition was stabilized. A CAT scan of the chest that was done at that time showed chronic changes in lower lungs related to rheumatoid arthritis. He also had a new consolidation and elbow grams in the left hilar region and new multifocal groundglass organizing pneumonia in the right upper lobe for which she was treated. Doppler of the lower extremity showed no evidence of any DVT.. During this current admission, the patient's creatinine was again up to his BUN is at 72 and this serum bicarbonate 16 and there is an anion gap of 18. His CPK was 36, liver function tests are within normal limits. Lactic acid level of 2.4 and troponins were negative. The repeat Covid 19 testing came back again negative. The chest x-ray shows a component of CHF with cardiomegaly and mild to moderate alveolar and interstitial edema and a small left-sided pleural effusion. His evaluation 08/09/2020, the patient is feeling great. Overnight, he was resuscitated with IV fluids and the patient receiving D5W with sodium bicarbonate at the rate of 150 mL an hour. He is producing urine output adequate and the serum bicarb is at 16. His urine output is in order of 300 mL an hour. The creatinine is down to 5.13. The rest of the electrolytes are essentially within normal limits. Serum bicarb is at 16. Anion gap is at 18. The UA was showing 19 WBCs and urine cultures are still pending for now. His white cell count is down to 17.8 with a hemoglobin of 11.9. No further episodes of nausea or vomiting or diarrhea or abdominal pain. No chest pain. His chest x-ray from today, is showing no acute abnormalities. He has chronic changes and scarring in the right lung base related to previous bouts of pneumonia/empyema. Otherwise, the patient is still requiring pressors and he is running on no low- dose norepinephrine at 0.05 mcg/kg per minute. He is coronavirus/Covid 19 testing came back negative. His lactic acid level is normalized on to 1.1. Objective - Vital Signs Vital signs: Vital Signs Temp 97.8 F 08/09/20 04:00 Pulse 85 08/09/20 07:00 Resp 19 08/09/20 07:00 BP 132/92 08/09/20 07:00 Pulse Ox 99 08/09/20 07:00 Intake & Output 08/08/20 08/09/20 08/09/20 18:59 06:59 18:59 Intake Total 643.159 2548.392 Output Total 325 3475 Balance 172.465 -1494.608 Weight 104.326 kg 95 kg Intake: IV 1920 0.9 Na Cl KVO 120 Dextrose 5% in Water 1, 1800 000 ml @ 150 mls/hr IV . Q7H40M [facility] with Sodium Bicarb (1 Meq/ml) 150 ml Rx#:[id number] Intake, IV Titration 497.465 60.392 Amount Levofloxacin 500Mg-D5w 100 Pmx 500 mg In Dextrose/ Water 1 100ml.bag @ 100 mls/hr IVPB ONCE [facility] Rx#: [id number] Norepinephrine 32 mg In 7.465 60.392 Sodium Chloride 0.9% 218 ml @ 0.05 MCG/KG/MIN 2. 445 mls/hr IV .Q24H [facility] Rx#:[id number] Sodium Chloride 0.9% 1, 390 000 ml @ 130 mls/hr IV . Q7H42M [facility] Rx#:[id number] Output: Urine 325 3475 Other: Voiding Method Indwelling Catheter Indwelling Catheter - Exam GENERAL EXAM: Alert, very pleasant, 60-year-old white male, on 4 L of Oxymizer nasal cannula, with pulse ox of 95% comfortable in no apparent distress. HEAD: Normocephalic/atraumatic. EYES: Normal reaction of pupils, equal size. Conjunctiva pink, sclera white. NOSE: Clear with pink turbinates. THROAT: No erythema or exudates. NECK: No masses, no JVD, no thyroid enlargement, no adenopathy. CHEST: No chest wall deformity. Symmetrical expansion. LUNGS: Equal air entry with some bibasilar crackles, no major wheezing or coughing or rhonchi CVS: Regular rate and rhythm, normal S1 and S2, no gallops, no murmurs, no rubs ABDOMEN: Soft, nontender. No hepatosplenomegaly, normal bowel sounds, no guarding or rigidity. EXTREMITIES: No clubbing, no edema, no cyanosis, 2+ pulses and upper and lower extremities. MUSCULOSKELETAL: Muscle strength and tone normal. SPINE: No scoliosis or deformity SKIN: No rashes CENTRAL NERVOUS SYSTEM: Alert and oriented -3. No focal deficits, tone is normal in all 4 extremities. PSYCHIATRIC: Alert and oriented -3. Appropriate affect. Intact judgment and insight. - Labs CBC & Chem 7: 08/09/20 03:15 08/09/20 03:15 Labs: Abnormal Lab Results - Last 24 Hours (Table) 08/08/20 08/08/20 08/08/20 Range/Units 13:24 13:24 13:24 WBC 20.7 H (3.8-10.6) k/uL RBC 4.10 L (4.30-5.90) m/uL Hgb 10.6 L (13.0-17.5) gm/dL Hct 34.7 L (39.0-53.0) % MCHC 30.5 L (31.0-37.0) g/dL RDW 17.5 H (11.5-15.5) % Neutrophils # 14.5 H (1.3-7.7) k/uL Lymphocytes # (1.0-4.8) k/uL Monocytes # 1.8 H (0-1.0) k/uL APTT 19.3 L (22.0-30.0) sec Sodium 134 L (137-145) mmol/L Carbon Dioxide 16 L (22-30) mmol/L BUN 72 H (9-20) mg/dL Creatinine 7.63 H* (0.66-1.25) mg/dL Glucose 106 H (74-99) mg/dL Plasma Lactic Acid Caden (0.7-2.0) mmol/L Calcium (8.4-10.2) mg/dL Phosphorus (2.5-4.5) mg/dL Alkaline Phosphatase (38-126) U/L Creatine Kinase 36 L (55-170) U/L Albumin 2.7 L (3.5-5.0) g/dL Urine Protein (Negative) Urine Blood (Negative) Ur Leukocyte Esterase (Negative) Urine RBC (0-5) /hpf Urine WBC (0-5) /hpf Amorphous Sediment (None) /hpf Urine Bacteria (None) /hpf Hyaline Casts (0-2) /lpf Urine Mucus (None) /hpf 08/08/20 08/08/20 08/09/20 Range/Units 13:24 17:14 03:15 WBC 17.8 H (3.8-10.6) k/uL RBC (4.30-5.90) m/uL Hgb 11.9 L (13.0-17.5) gm/dL Hct (39.0-53.0) % MCHC 30.0 L (31.0-37.0) g/dL RDW 17.6 H (11.5-15.5) % Neutrophils # 16.3 H (1.3-7.7) k/uL Lymphocytes # 0.8 L (1.0-4.8) k/uL Monocytes # (0-1.0) k/uL APTT (22.0-30.0) sec Sodium (137-145) mmol/L Carbon Dioxide (22-30) mmol/L BUN (9-20) mg/dL Creatinine (0.66-1.25) mg/dL Glucose (74-99) mg/dL Plasma Lactic Acid Caden 2.4 H* (0.7-2.0) mmol/L Calcium (8.4-10.2) mg/dL Phosphorus (2.5-4.5) mg/dL Alkaline Phosphatase (38-126) U/L Creatine Kinase (55-170) U/L Albumin (3.5-5.0) g/dL Urine Protein 1+ H (Negative) Urine Blood Small H (Negative) Ur Leukocyte Esterase Small H (Negative) Urine RBC 6 H (0-5) /hpf Urine WBC 19 H (0-5) /hpf Amorphous Sediment Rare H (None) /hpf Urine Bacteria Occasional H (None) /hpf Hyaline Casts 89 H (0-2) /lpf Urine Mucus Few H (None) /hpf 08/09/20 Range/Units 03:15 WBC (3.8-10.6) k/uL RBC (4.30-5.90) m/uL Hgb (13.0-17.5) gm/dL Hct (39.0-53.0) % MCHC (31.0-37.0) g/dL RDW (11.5-15.5) % Neutrophils # (1.3-7.7) k/uL Lymphocytes # (1.0-4.8) k/uL Monocytes # (0-1.0) k/uL APTT (22.0-30.0) sec Sodium 136 L (137-145) mmol/L Carbon Dioxide 16 L (22-30) mmol/L BUN 62 H (9-20) mg/dL Creatinine 5.13 H (0.66-1.25) mg/dL Glucose 266 H (74-99) mg/dL Plasma Lactic Acid Caden (0.7-2.0) mmol/L Calcium 8.3 L (8.4-10.2) mg/dL Phosphorus 8.6 H (2.5-4.5) mg/dL Alkaline Phosphatase 131 H (38-126) U/L Creatine Kinase (55-170) U/L Albumin 2.9 L (3.5-5.0) g/dL Urine Protein (Negative) Urine Blood (Negative) Ur Leukocyte Esterase (Negative) Urine RBC (0-5) /hpf Urine WBC (0-5) /hpf Amorphous Sediment (None) /hpf Urine Bacteria (None) /hpf Hyaline Casts (0-2) /lpf Urine Mucus (None) /hpf Microbiology - Last 24 Hours (Table) 08/08/20 17:14 Urine Culture - Preliminary Urine,Clean Catch Assessment and Plan Plan: 1 acute kidney injury secondary to intravascular volume depletion/dehydration. Previous ultrasound the kidneys showed no evidence of any hydronephrosis. The patient has had a similar episode of acute kidney injury/ATN on previous hospitalization the patient renal function remained recovered with IV fluids. The patient is still being resuscitated IV fluids and the patient is receiving bicarb infusion at the rate of 150 mL an hour and a serum bicarbonate 16 and the patient is producing adequate amount of urine output with improvement in the creatinine is down to 5.3. 2 acute hypotension, probably secondary to intravascular volume depletion and th e patient is currently on IV fluids and pressors approving and the patient is on lower doses of pressors for now 3 chronic perihilar pulmonary infiltrates with increased interstitial changes in the lung bases more so on the right, probably a combination of rheumatoid lung and chronic scarring related to a previous pneumonia/empyema 4 previous tests normal, and pneumonia back in December 2019 requiring a chest tube insertion for an empyema 5 acute hypoxic respiratory failure currently on 2 by nasal cannula 6 rheumatoid arthritis with rheumatoid lungs/fibrosis maintained on a combination of Arava and prednisone outpatient basis 7 hypertension 8 hypothyroidism 9 previous history of foot infections requiring of antibiotics 10 previous history of DVT 11 persistent nausea and emesis and diarrhea. Consider underlying C. diff colitis 12 leukocytosis 13 mild chronic normocytic anemia 14 mild lactic acidosis with anion gap metabolic acidosis Plan The patient has already received a total of 2 L. We'll continue the bicarb at the rate of 150 mL an hour Monitor urine output and creatinine Repeat ultrasound the kidneys Continue pressors and monitor CVP and wean off the pressors Continue Zosyn and stop the Levaquin Resume all medications including Synthroid and hold the metoprolol and Hyzaar for now
--- NOTE | 2020-08-09 07:20 | XR ---
EXAMINATION TYPE: XR chest 1V DATE OF EXAM: 08/09/2020 COMPARISON: Chest x-ray 08/08/2020 HISTORY: Pneumonia TECHNIQUE: Single frontal view of the chest is obtained. FINDINGS: Findings are similar to prior exam. Patchy bibasilar density persists. There are overlying leads. Right subclavian central venous catheter shows the distal tip overlying the superior vena cav a level. There is no pneumothorax. There is persistent blunting of the left costophrenic angle. Heart remains enlarged. Aorta is dense. Pleural thickening present along the left lateral chest margin. IMPRESSION: There are likely chronic pleural parenchymal changes, difficult to exclude pneumonia, ae ration appears improved. Stable cardiomegaly.
--- NOTE | 2020-08-09 09:30 | P.CRDCN ---
History of Present Illness Consult date: 08/09/20 History of present illness: This is a 60-year-old gentleman who was recently in the hospital for pneumonia, comes back to the hospital with complaints of generalized weakness and fatigue. Patient had poor appetite and also had diarrhea for 2 days. Patient denied any chest pain. 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 On admission patient was found to be in acute renal failure with creatinine of about 5. This may be partly related to dehydration. Patient was given IV fluids with improvement of his general condition. In fact, he claims that he is feeling much better. We're asked to see the patient because of abnormal EKG showing some ischemic changes. However, repeat EKG showed normal findings. Is not having any chest pain or shortness of breath at rest at this time. His troponin 2 are negative. We're going to get an echocardiogram to assess LV function and to see if there are any wall motion normalities. If there is no evidence of wall motion abnormalities, continue current medical therapy to stabilize his general condition. When patient is stable for evaluation to rule out underlying ischemic heart disease with a pharmacological stress test could be considered. His repeat echo with test is also came back as negative. Chest x-ray does show some evidence of pneumonia. 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 CTR kim,bronchoscopy X4 Past Anesthesia/Blood Transfusion Reactions: Previous Problems w/ Anesthesia Additional Past Anesthesia/Blood Transfusion Reaction / Comment(s): slow to awaken x1. Past Psychological History: No Psychological Hx Reported Smoking Status: Former smoker Past Alcohol Use History: None Reported Additional Past Alcohol Use History / Comment(s): QUIT SMOKING 2003, smoked 15 years, 1 - 1 1/2 ppd Past Drug Use History: None Reported - Past Family History Mother Family Medical History: Cancer Additional Family Medical History / Comment(s): lung with mets brain Father Family Medical History: No Reported History Additional Family Medical History / Comment(s): states, "he just ." Medications and Allergies Home Medications Medication Instructions Recorded Confirmed Type Levothyroxine Sodium [Synthroid] 150 mcg PO DAILY 10/17/16 08/08/20 History Albuterol Inhaler [Ventolin Hfa 2 puff INHALATION RT-QID PRN 12/30/19 08/08/20 History Inhaler] Losartan-Hctz 50-12.5 mg [Hyzaar 1 tab PO DAILY 12/30/19 08/08/20 History 50-12.5] Metoprolol Tartrate [Lopressor] 50 mg PO HS 12/30/19 08/08/20 History Ascorbic Acid [Vitamin C] 2,000 mg PO HS 07/13/20 08/08/20 History Cholecalciferol [Vitamin D3 (25 2,000 unit PO HS 07/13/20 08/08/20 History Mcg = 1000 Iu)] Ipratropium-Albuterol Nebulize 3 ml INHALATION RT-QID PRN 07/13/20 08/08/20 History [Duoneb 0.5 mg-3 mg/3 ml Soln] Furosemide [Lasix] 20 mg PO DAILY PRN 08/08/20 08/08/20 History Allergies Allergy/AdvReac Type Severity Reaction Status Date / Time No Known Allergies Allergy Verified 08/08/20 14:29 Physical Exam Vitals: Vital Signs Temp Pulse Resp BP Pulse Ox 08/09/20 09:00 81 16 109/79 99 08/09/20 08:30 83 18 116/88 100 08/09/20 08:00 97.5 F L 85 16 135/81 100 08/09/20 07:30 90 17 128/96 99 08/09/20 07:00 85 19 132/92 99 08/09/20 06:30 77 15 145/111 100 08/09/20 06:00 91 20 141/102 100 08/09/20 05:30 87 16 137/98 100 08/09/20 05:00 88 17 139/87 100 08/09/20 04:30 86 20 133/91 100 08/09/20 04:00 97.8 F 72 15 137/94 100 08/09/20 03:30 70 15 151/98 100 08/09/20 03:00 92 14 133/98 98 08/09/20 02:30 93 22 143/89 97 08/09/20 02:00 89 15 132/81 89 L 08/09/20 01:30 76 13 136/77 98 08/09/20 01:00 90 13 139/85 94 L 08/09/20 00:30 77 12 115/80 98 08/09/20 00:00 98.2 F 86 13 117/83 98 08/08/20 23:30 89 11 L 120/80 96 08/08/20 23:00 88 12 113/78 98 08/08/20 22:30 94 16 112/70 83 L 08/08/20 22:00 91 14 103/68 95 08/08/20 21:35 93 13 110/69 96 08/08/20 21:30 96 14 101/69 97 08/08/20 21:00 100 16 95/68 93 L 08/08/20 20:30 95 18 104/62 96 08/08/20 20:00 98.5 F 98 15 101/61 94 L 08/08/20 19:30 96 13 95/61 98 08/08/20 19:00 98 17 91/54 100 08/08/20 18:40 98 20 92/53 100 08/08/20 18:20 99 15 89/58 99 08/08/20 18:00 102 H 18 83/59 100 08/08/20 17:40 100 34 H 93/60 100 08/08/20 17:20 104 H 15 96/61 99 08/08/20 17:10 98.7 F 103 H 23 80/53 95 08/08/20 16:49 76/52 08/08/20 16:32 103 H 18 71/46 99 08/08/20 16:07 107 H 79/52 99 08/08/20 16:00 105 H 18 83/55 100 08/08/20 15:55 85 18 122/72 99 08/08/20 15:49 107 H 18 66/40 95 08/08/20 15:35 108 H 18 66/40 95 08/08/20 14:30 105 H 18 70/41 97 08/08/20 14:20 105 H 17 64/40 97 08/08/20 14:10 107 H 18 70/36 97 08/08/20 14:00 106 H 18 64/39 98 08/08/20 13:50 107 H 17 67/46 97 08/08/20 13:40 106 H 17 65/55 97 08/08/20 13:30 110 H 18 69/39 97 08/08/20 13:20 111 H 18 66/39 98 08/08/20 13:13 98.5 F 109 H 18 69/43 95 08/08/20 13:11 73 L Intake and Output 08/08/20 08/09/20 08/09/20 22:59 06:59 14:59 Intake Total 540.139 0424.392 300 Output Total 1075 2725 590 Balance -97.535 -1224.608 -290 Intake: IV 480 1440 300 0.9 Na Cl KVO 30 90 Dextrose 5% in Water 1, 450 1350 300 000 ml @ 150 mls/hr IV . Q7H40M ALMA with Sodium Bicarb (1 Meq/ml) 150 ml Rx#:[id number] Intake, IV Titration 497.465 60.392 Amount Levofloxacin 500Mg-D5w 100 Pmx 500 mg In Dextrose/ Water 1 100ml.bag @ 100 mls/hr IVPB ONCE STA Rx#: [id number] Norepinephrine 32 mg In 7.465 60.392 Sodium Chloride 0.9% 218 ml @ 0.05 MCG/KG/MIN 2. 445 mls/hr IV .Q24H ALMA Rx#:[id number] Sodium Chloride 0.9% 1, 390 000 ml @ 130 mls/hr IV . Q7H42M ALMA Rx#:[id number] Output: Urine 1075 2725 590 Other: Voiding Method Indwelling Catheter Indwelling Catheter Weight 104.326 kg 95 kg GENERAL EXAM: Patient is alert and oriented and doesn't appear to be in any acute distress HEENT: Normocephalic. Normal reaction of pupils, equal size, normal range of extraocular motion. No erythema or exudates in the throat. NECK: No masses, no nuchal rigidity. CHEST: No chest wall deformity. LUNGS: Equal air entry with no crackles or wheeze. Scattered rhonchi HEART: S1 and S2 normal with no audible mumurs or gallops. Regular rhythm, femorals equal on both sides.. ABDOMEN: No hepatosplenomegaly, normal bowel sounds, no guarding or rigidity. SKIN: No rashes CENTRAL NERVOUS SYSTEM: No focal deficits. EXTREMITIES: No cyanosis, clubbing or edema. Results 08/09/20 03:15 08/09/20 03:15 Cardiac Enzymes 08/08/20 08/08/20 08/08/20 Range/Units 13:24 13:24 16:04 AST 19 (17-59) U/L Troponin I <0.012 <0.012 (0.000-0.034) ng/mL 08/09/20 Range/Units 03:15 AST 23 (17-59) U/L Troponin I (0.000-0.034) ng/mL Coagulation 08/08/20 Range/Units 13:24 PT 11.7 (9.0-12.0) sec APTT 19.3 L (22.0-30.0) sec CBC 08/08/20 08/09/20 Range/Units 13:24 03:15 WBC 20.7 H 17.8 H (3.8-10.6) k/uL RBC 4.10 L 4.51 (4.30-5.90) m/uL Hgb 10.6 L 11.9 L (13.0-17.5) gm/dL Hct 34.7 L 39.8 (39.0-53.0) % Plt Count 345 335 (150-450) k/uL Comprehensive Metabolic Panel 08/08/20 08/09/20 Range/Units 13:24 03:15 Sodium 134 L 136 L (137-145) mmol/L Potassium 3.6 4.3 (3.5-5.1) mmol/L Chloride 100 102 (98-107) mmol/L Carbon Dioxide 16 L 16 L (22-30) mmol/L BUN 72 H 62 H (9-20) mg/dL Creatinine 7.63 H* 5.13 H (0.66-1.25) mg/dL Glucose 106 H 266 H (74-99) mg/dL Calcium 8.5 8.3 L (8.4-10.2) mg/dL AST 19 23 (17-59) U/L ALT 13 15 (4-49) U/L Alkaline Phosphatase 112 131 H (38-126) U/L Total Protein 6.5 6.8 (6.3-8.2) g/dL Albumin 2.7 L 2.9 L (3.5-5.0) g/dL Current Medications Generic Name Dose Route Start Last Admin Trade Name Freq PRN Reason Stop Dose Admin Norepinephrine Bitartrate 32 250 mls @ 2.445 mls/hr 08/08/20 15:45 08/09/20 06:49 mg/ Sodium Chloride IV 0.07 mcg/kg/min .Q24H ALMA 3.423 mls/hr Titration Protocol 0.05 MCG/KG/MIN Piperacillin Sod/Tazobactam 100 mls @ 25 mls/hr 08/09/20 00:00 08/09/20 00:15 Sod 3.375 gm/ Sodium Chloride IVPB 08/15/20 23:00 25 mls/hr Q12HR ALMA Administration Sodium Bicarbonate 150 ml/ 1,150 mls @ 150 mls/hr 08/08/20 19:00 08/09/20 04:40 Dextrose/Water IV 150 mls/hr .Q7H40M ALMA Administration Miscellaneous Information 1 each 08/08/20 15:42 Pneumonia Protocol Utilized 1 Each Misc PO ONCE PRN Per Protocol Morphine Sulfate 3 mg 08/08/20 15:44 08/08/20 18:24 Morphine Sulfate 4 Mg/Ml Syringe IV 3 mg Q2HR PRN Administration Pain Scale 6 to 7 Naloxone HCl 0.2 mg 08/08/20 15:44 Naloxone 0.4 Mg/Ml 1 Ml Vial IV Q2M PRN Opioid Reversal Pantoprazole Sodium 40 mg 08/09/20 09:00 Pantoprazole 40 Mg/10 Ml Vial IV DAILY ALMA Intake and Output 08/08/20 08/09/20 08/09/20 22:59 06:59 14:59 Intake Total 118.510 4875.392 300 Output Total 1075 6015 590 Balance -97.535 -1224.608 -290 Intake: IV 480 1440 300 0.9 Na Cl KVO 30 90 Dextrose 5% in Water 1, 450 1350 300 000 ml @ 150 mls/hr IV . Q7H40M ALMA with Sodium Bicarb (1 Meq/ml) 150 ml Rx#:[id number] Intake, IV Titration 497.465 60.392 Amount Levofloxacin 500Mg-D5w 100 Pmx 500 mg In Dextrose/ Water 1 100ml.bag @ 100 mls/hr IVPB ONCE STA Rx#: [id number] Norepinephrine 32 mg In 7.465 60.392 Sodium Chloride 0.9% 218 ml @ 0.05 MCG/KG/MIN 2. 445 mls/hr IV .Q24H ALMA Rx#:[id number] Sodium Chloride 0.9% 1, 390 000 ml @ 130 mls/hr IV . Q7H42M ALMA Rx#:[id number] Output: Urine 1075 2725 590 Other: Voiding Method Indwelling Catheter Indwelling Catheter Weight 104.326 kg 95 kg 08/09/20 03:15 08/09/20 03:15 EKG Interpretations (text) Sinus rhythm. Initial EKG showed mild ST-T abnormalities and repeat EKG was normal Assessment and Plan (1) Essential hypertension Current Visit: Yes Status: Acute Code(s): I10 - ESSENTIAL (PRIMARY) HYPERTENSION SNOMED Code(s): 42417141 (2) Acute renal failure Current Visit: Yes Status: Acute Code(s): N17.9 - ACUTE KIDNEY FAILURE, UNSPECIFIED SNOMED Code(s): 14230871 (3) Pneumonia Current Visit: Yes Status: Acute Code(s): J18.9 - PNEUMONIA, UNSPECIFIED ORGANISM SNOMED Code(s): 617964589 (4) Dehydration Current Visit: No Status: Acute Code(s): E86.0 - DEHYDRATION SNOMED Code(s): 73936602 (5) Abnormal EKG Current Visit: Yes Status: Acute Code(s): R94.31 - ABNORMAL ELECTROCARDIOGRAM [ECG] [EKG] SNOMED Code(s): 374095888 Plan: At this point patient doesn't have any symptoms of angina and his troponins 2 are negative. We will get an echocardiogram to assess LV function and rule out any segmental wall motion defects. If there are no segmental wall motion defects, no further evaluation at this time, as long as patient is chest pain- free. Continue rest of the supportive care treatment for possible pneumonia
--- NOTE | 2020-08-09 09:34 | P.NPCON ---
History of Present Illness - Reason for Consult acute renal failure - History of Present Illness reason for consultation: Acute kidney injury history of present illness: Patient is a 60-year-old male seen in renal consultation for acute kidney injury. Patient's creatinine was 7.63 on admission is 5.13 today. Patient's creatinine from 02/09/2020 was 0.8. It appears patient had a similar episode of acute kidney injury in the past in June 2020 when his creatinine was 11.38 on admission and subsequently improved to 1.93 upon discharge. Patient presented to the hospital with vomiting and diarrhea going on for about 4 days. Patient states he did not eat anything for 4 days. He also had vomiting and diarrhea for 2 days. He admits to taking one tablet of Motrin. No abdominal pain. No hematuria or dysuria. No history of diabetes. No family history of renal disease. He did receive 3-1/2 L bolus of normal saline on admission and is currently maintained on bicarb drip for maintenance fluids. His bicarb level from this morning was 16. Creatinine is down to 5.13. Nonoliguric. He is also on low-dose Levophed. He was also on Hyzaar as well as Lasix as needed outpatient which are both currently held at this time. Vital signs are stable. General: The patient appeared well nourished and normally developed. HEENT: Head exam is unremarkable. Neck is without jugular venous distension. LUNGS: Breath sounds decreased. HEART: Rate and Rhythm are regular. ABDOMEN: Soft, nontender. EXTREMITITES: No edema. 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 CTR kim,bronchoscopy X4 Past Anesthesia/Blood Transfusion Reactions: Previous Problems w/ Anesthesia Additional Past Anesthesia/Blood Transfusion Reaction / Comment(s): slow to awaken x1. Past Psychological History: No Psychological Hx Reported Smoking Status: Former smoker Past Alcohol Use History: None Reported Additional Past Alcohol Use History / Comment(s): QUIT SMOKING 2003, smoked 15 years, 1 - 1 1/2 ppd Past Drug Use History: None Reported - Past Family History Mother Family Medical History: Cancer Additional Family Medical History / Comment(s): lung with mets brain Father Family Medical History: No Reported History Additional Family Medical History / Comment(s): states, "he just ." Medications and Allergies Home Medications Medication Instructions Recorded Confirmed Type Levothyroxine Sodium [Synthroid] 150 mcg PO DAILY 10/17/16 08/08/20 History Albuterol Inhaler [Ventolin Hfa 2 puff INHALATION RT-QID PRN 12/30/19 08/08/20 History Inhaler] Losartan-Hctz 50-12.5 mg [Hyzaar 1 tab PO DAILY 12/30/19 08/08/20 History 50-12.5] Metoprolol Tartrate [Lopressor] 50 mg PO HS 12/30/19 08/08/20 History Ascorbic Acid [Vitamin C] 2,000 mg PO HS 07/13/20 08/08/20 History Cholecalciferol [Vitamin D3 (25 2,000 unit PO HS 07/13/20 08/08/20 History Mcg = 1000 Iu)] Ipratropium-Albuterol Nebulize 3 ml INHALATION RT-QID PRN 07/13/20 08/08/20 History [Duoneb 0.5 mg-3 mg/3 ml Soln] Furosemide [Lasix] 20 mg PO DAILY PRN 08/08/20 08/08/20 History Allergies Allergy/AdvReac Type Severity Reaction Status Date / Time No Known Allergies Allergy Verified 08/08/20 14:29 Physical Exam Vitals: Vital Signs Temp Pulse Resp BP Pulse Ox 08/09/20 09:00 81 16 109/79 99 08/09/20 08:30 83 18 116/88 100 08/09/20 08:00 97.5 F L 85 16 135/81 100 08/09/20 07:30 90 17 128/96 99 08/09/20 07:00 85 19 132/92 99 08/09/20 06:30 77 15 145/111 100 08/09/20 06:00 91 20 141/102 100 08/09/20 05:30 87 16 137/98 100 08/09/20 05:00 88 17 139/87 100 08/09/20 04:30 86 20 133/91 100 08/09/20 04:00 97.8 F 72 15 137/94 100 08/09/20 03:30 70 15 151/98 100 08/09/20 03:00 92 14 133/98 98 08/09/20 02:30 93 22 143/89 97 08/09/20 02:00 89 15 132/81 89 L 08/09/20 01:30 76 13 136/77 98 08/09/20 01:00 90 13 139/85 94 L 08/09/20 00:30 77 12 115/80 98 08/09/20 00:00 98.2 F 86 13 117/83 98 08/08/20 23:30 89 11 L 120/80 96 08/08/20 23:00 88 12 113/78 98 08/08/20 22:30 94 16 112/70 83 L 08/08/20 22:00 91 14 103/68 95 08/08/20 21:35 93 13 110/69 96 08/08/20 21:30 96 14 101/69 97 08/08/20 21:00 100 16 95/68 93 L 08/08/20 20:30 95 18 104/62 96 08/08/20 20:00 98.5 F 98 15 101/61 94 L 08/08/20 19:30 96 13 95/61 98 08/08/20 19:00 98 17 91/54 100 08/08/20 18:40 98 20 92/53 100 08/08/20 18:20 99 15 89/58 99 08/08/20 18:00 102 H 18 83/59 100 08/08/20 17:40 100 34 H 93/60 100 08/08/20 17:20 104 H 15 96/61 99 08/08/20 17:10 98.7 F 103 H 23 80/53 95 08/08/20 16:49 76/52 08/08/20 16:32 103 H 18 71/46 99 08/08/20 16:07 107 H 79/52 99 08/08/20 16:00 105 H 18 83/55 100 08/08/20 15:55 85 18 122/72 99 08/08/20 15:49 107 H 18 66/40 95 08/08/20 15:35 108 H 18 66/40 95 08/08/20 14:30 105 H 18 70/41 97 08/08/20 14:20 105 H 17 64/40 97 08/08/20 14:10 107 H 18 70/36 97 08/08/20 14:00 106 H 18 64/39 98 08/08/20 13:50 107 H 17 67/46 97 08/08/20 13:40 106 H 17 65/55 97 08/08/20 13:30 110 H 18 69/39 97 08/08/20 13:20 111 H 18 66/39 98 08/08/20 13:13 98.5 F 109 H 18 69/43 95 08/08/20 13:11 73 L Intake and Output 08/08/20 08/09/20 08/09/20 22:59 06:59 14:59 Intake Total 927.987 7978.392 300 Output Total 1075 5645 590 Balance -97.535 -1224.608 -290 Intake: IV 480 1440 300 0.9 Na Cl KVO 30 90 Dextrose 5% in Water 1, 450 1350 300 000 ml @ 150 mls/hr IV . Q7H40M ALMA with Sodium Bicarb (1 Meq/ml) 150 ml Rx#:[id number] Intake, IV Titration 497.465 60.392 Amount Levofloxacin 500Mg-D5w 100 Pmx 500 mg In Dextrose/ Water 1 100ml.bag @ 100 mls/hr IVPB ONCE STA Rx#: [id number] Norepinephrine 32 mg In 7.465 60.392 Sodium Chloride 0.9% 218 ml @ 0.05 MCG/KG/MIN 2. 445 mls/hr IV .Q24H ALMA Rx#:[id number] Sodium Chloride 0.9% 1, 390 000 ml @ 130 mls/hr IV . Q7H42M ALMA Rx#:[id number] Output: Urine 1075 2413 590 Other: Voiding Method Indwelling Catheter Indwelling Catheter Weight 104.326 kg 95 kg Results - Lab Results Most recent lab results Calcium 8.3 mg/dL (8.4-10.2) L 08/09/20 03:15 Phosphorus 8.6 mg/dL (2.5-4.5) H 08/09/20 03:15 Magnesium 1.7 mg/dL (1.6-2.3) 08/09/20 03:15 08/09/20 03:15 08/09/20 03:15 Assessment and Plan Plan: Assessment: 1. Acute kidney injury mostly prerenal secondary to hypovolemia from vomiting, diarrhea and Hyzaar. Creatinine 7.63 on admission and is 5.13 today. Baseline creatinine near 1 from January 2020. 2. Metabolic acidosis secondary to acute kidney injury and diarrhea. 3. Shock maintained on Levophed. 4. History of rheumatoid arthritis. 5. Possible pneumonia maintained on antibiotics. 6. Vomiting and diarrhea. Questionable gastroenteritis. Rule out C. diff. Plan: Maintain bicarb drip. Wean vasopressors. Follow-up renal ultrasound. Avoid nephrotoxins. Continue to monitor renal function and urine output. Repeat BMP this evening. Thank you for the consultation. I will continue to follow the patient with you during his hospital stay.
[2020-08-09] MEDS: PANTOPRAZOLE 40 MG/10 ML VIAL IV SCH (09:46)
--- NOTE | 2020-08-09 10:00 | ECHOF ---
Referral Reason:chest pain MEASUREMENTS -------- HEIGHT: 180.3 cm WEIGHT: 94.8 kg BP: IVSd: 0.8 cm (0.6 - 1.1) LVIDd: 4.1 cm (3.9 - 5.3) LVPWd: 1.1 cm (0.6 - 1.1) IVSs: 0.8 cm LVIDs: 3.5 cm LVPWs: 1.0 cm LAESV Index (A-L): 26.30 ml/m Ao Diam: 3.7 cm (2.0 - 3.7) AV Cusp: 2.1 cm (1.5 - 2.6) LA Diam: 2.9 cm (2.7 - 3.8) MV EXCURSION: 19.783 mm (> 18.000) MV EF SLOPE: 100 mm/s (70 - 150) EPSS: 2.4 cm MV E Juan: 0.75 m/s MV DecT: 217 ms MV A Juan: 0.75 m/s MV E/A Ratio: 1.00 AR PHT: 922 ms RAP: 5.00 mmHg RVSP: 14.31 mmHg FINDINGS -------- Sinus rhythm. This was a technically adequate study. The left ventricular size is normal. Left ventricular wall thickness is normal. Overall left vent ricular systolic function is mild-moderately impaired with, an EF between 40 - 45 %. Basal inferose ptal LV wall motion is hypokinetic. Basal anteroseptal LV wall motion is hypokinetic. Mid infer oseptal LV wall motion is hypokinetic. Mid anteroseptal LV wall motion is hypokinetic. The right ventricle is normal in size. Normal LA size by volume 22+/-6 ml/m2. The right atrial size is normal. There is mild aortic valve sclerosis. There is mild aortic regurgitation. Mild mitral annular calcification present. Mild mitral regurgitation is present. The tricuspid valve appears structurally normal. Trace tricuspid regurgitation present. Right andre tricular systolic pressure is normal at < 35 mmHg. The pulmonic valve was not well visualized. There is no pulmonic regurgitation present. The aortic root size is normal. Normal inferior vena cava with normal inspiratory collapse consistent with estimated right atrial pre ssure of 5 mmHg. There is no pericardial effusion. CONCLUSIONS -------- 1. Left ventricular wall thickness is normal. 2. Overall left ventricular systolic function is mild-moderately impaired with, an EF between 40 - 45 %. 3. Basal inferoseptal LV wall motion is hypokinetic. 4. Basal anteroseptal LV wall motion is hypokinetic. 5. Mid inferoseptal LV wall motion is hypokinetic. 6. Mid anteroseptal LV wall motion is hypokinetic. 7. Normal LA size by volume 22+/-6 ml/m2. 8. There is mild aortic regurgitation. 9. Mild mitral regurgitation is present. 10. Trace tricuspid regurgitation present. 11. There is no pericardial effusion. [employer]: Kaela Baker RDCS
--- NOTE | 2020-08-09 12:08 | US ---
EXAMINATION TYPE: US renals and bladder DATE OF EXAM: 08/09/2020 COMPARISON: Previous ultrasound 07/18/2020 CLINICAL HISTORY: acute kidney injury. abn labs, hx left renal cyst, patient has bladder catheter EXAM MEASUREMENTS: Right Kidney: 14.0 x 5.6 x 5.0 cm Left Kidney: 13.8 x 5.4 x 5.3 cm Right Kidney: No hydronephrosis or masses seen Left Kidney: upper pole exophytic simple cyst- 3.6 x 3.7 x 3.8 cm no hydronephrosis Bladder: Meraz seen Bilateral Jets not visualized due to bladder catheter Cortical measured differentiation is maintained. IMPRESSION: Exam is stable.
[2020-08-09] MEDS ORDERED: LEVOFLOXACIN 500MG-D5W PMX 500 MG in DEXTROSE/WATER 1 100ML.BAG IVPB SCH (17:00)
[2020-08-09] MEDS: NOREPINEPHRINE 32 MG in SODIUM CHLORIDE 0.9% 218 ML IV SCH (17:39)
[2020-08-09 18:14] LABS: Calcium 8.4 mg/dL (8.4-10.2); Potassium 3.5 mmol/L (3.5-5.1)
[2020-08-09] MEDS ORDERED: POTASSIUM CHLORIDE ER 20 MEQ TAB.ER PO STA (18:29)
[2020-08-09] MEDS: SODIUM CHLORIDE 0.9% 1,000 ML IV SCH (18:35)
[2020-08-09] MEDS: MORPHINE SULFATE 4 MG/ML SYRINGE IV PRN (20:29)
[2020-08-10 04:19] LABS: Anisocytosis Slight; HCT 29.5 % (39.0-53.0); Hypochromasia Slight; MCH 26.8 pg (25.0-35.0); MCHC 31.9 g/dL (31.0-37.0); MCV 84.1 fL (80.0-100.0); Mean Platelet Volume 8.2; Platelet Count 289 k/uL (150-450); RBC 3.51 m/uL (4.30-5.90); RDW 17.5 % (11.5-15.5); WBC 16.1 k/uL (3.8-10.6)
[2020-08-10 04:27] LABS: HGB 9.4 gm/dL (13.0-17.5)
[2020-08-10 04:33] LABS: Albumin 2.6 g/dL (3.5-5.0); Calcium 8.1 mg/dL (8.4-10.2); Potassium 3.8 mmol/L (3.5-5.1); Total Bilirubin 0.4 mg/dL (0.2-1.3); Total Protein 6.1 g/dL (6.3-8.2)
[2020-08-10] MEDS ORDERED: IPRATROPIUM-ALBUTEROL 3 ML NEB INHALATION PRN (05:37)
--- NOTE | 2020-08-10 05:42 | P.HPIM ---
History of Present Illness H&P Date: 08/08/20 Chief Complaint: Generalized weakness and fatigue, vomiting This is a 60-year-old male patient requesting my service with past medical history of rheumatoid arthritis on Arava that was diagnosed when he was 37 year old initially was started on Methotrexate that he could not tolerate then placed on Embrel but he developed side effects and finally was tried on Humira injection but he developed neurologic sided effects and was hospitaized at [facility] for quiet some time, rheumatoid lung disease, previous history of loculated empyema with chest tube placement in January 2020, hypertension, hypothyroidism, history of DVT, remote history of tobacco use and dependence, was recently seen by Dr. Dutton and he was placed on two antibiotics and 2 steroids and he was feeling better that wa about 2 weeks ago Patient complains of generalized weakness and tingling going on for a few days along with nausea, vomiting and diarrhea. He has been unable to keep any food down. He denies having any abdominal pain. He complains of feeling fatigued and achy all over. Patient was found to be afebrile but mildly tachycardic in the low 100s, hypotensive with blood pressure 69/43, pulse ox 73% on room air. Patient received 3 L of fluid and Decadron in the emergency center. A central line was placed and patient was started on norepinephrine drip. EKG was sinus tachycardia with incomplete right bundle branch block. WBC 20.7, hemoglobin 10.6, platelet count 3 and 45. Sodium 134, potassium 3.6, chloride 100, CO2 16, BUN 72 and creatinine 7.63. Blood sugar 106. CK 36. Liver function tests normal. Lactic acid 2.4. Troponin negative. Coronavirus PCR not detected. Chest x-ray reveals cardiomegaly with patchy mid and lower lung bases with small left effusion. Consider pneumonia or sequela of CHF. Patient received IV Levaquin and Zosyn in the emergency center. He was admitted to the intensive care unit and started on a bicarb drip and continued on vasopressors. Consult with pulmonary medicine, nephrology and cardiology. Review of Systems Constitutional: Reports fatigue, Reports weakness, Denies anorexia, Denies chronic pain Eyes: denies blurred vision, denies bulging eye, denies decreased vision Ears, nose, mouth and throat: Denies dysphagia, Denies neck lump, Denies sore throat Cardiovascular: Reports lightheadedness, Reports rapid heart beat, Denies chest pain, Denies decreased exercise tolerance, Denies dyspnea on exertion, Denies leg edema, Denies shortness of breath, Denies syncope Respiratory: Denies congestion, Denies cough, Denies cough with sputum, Denies home oxygen, Denies sleep apnea, Denies snoring, Denies wheezing Gastrointestinal: Reports change in bowel habits, Reports diarrhea, Reports dyspepsia, Reports early satiety, Reports excessive gas, Reports nausea, Reports vomiting, Denies abdominal pain, Denies bloating, Denies BRBPR, Denies con stipation, Denies heartburn, Denies hematemesis, Denies hematochezia, Denies jaundice, Denies lactose intolerance, Denies loss of appetite, Denies melena Genitourinary: Reports nocturia, Denies dysuria Musculoskeletal: Denies atrophy, Denies fractures, Denies frequent falls Musculoskeletal: right: ankle pain, ankle stiffness, ankle swelling, foot pain, foot stiffness, foot swelling, absent: elbow pain, elbow stiffness, elbow swelling, hand pain, hand stiffness, hand swelling, hip pain, hip stiffness, hip swelling, knee pain, knee stiffness, knee swelling, shoulder pain, shoulder stiffness, shoulder swelling, wrist pain, wrist stiffness, wrist swelling Integumentary: Denies pruritus, Denies rash Neurological: Denies numbness, Denies weakness Psychiatric: Denies anxiety, Denies depression Past Medical History Past Medical History: Deep Vein Thrombosis (DVT), GERD/Reflux, Hyperlipidemia, Hypertension, Neurologic Disorder, Rheumatoid Arthritis (RA), Thyroid Disorder Additional Past Medical History / Comment(s): Rheumatoid arthritis, rheumatoid lungs with chronic interstitial lung disease maintained on Arava and chronic steroids, previous history of pneumonia/empyema with Streptococcus and the patient required chest tube drainage - January 2020, retention, hypothyroidism, previous history of foot infections requiring PICC line insertion, history of DVT, nephrolithiasis, History of Any Multi-Drug Resistant Organisms: None Reported Past Surgical History: Back Surgery, Tonsillectomy Additional Past Surgical History / Comment(s): Right foot surgery, repair herniated disc, plate removed rt foot. [facility] kim,bronchoscopy X4, right foot surgery with plate placement due to arch collapse folowed by removal due to infection Past Anesthesia/Blood Transfusion Reactions: Previous Problems w/ Anesthesia Additional Past Anesthesia/Blood Transfusion Reaction / Comment(s): slow to awaken x1. Past Psychological History: No Psychological Hx Reported Smoking Status: Former smoker (Patient used to smoke 1+1/2 pack per day started at the age of 22 and quit 16 years ago.) Past Alcohol Use History: Rare Additional Past Alcohol Use History / Comment(s): QUIT SMOKING 2003, smoked 15 years, 1 - 1 1/2 ppd Past Drug Use History: None Reported - Past Family History Mother Family Medical History: Cancer (Mother at the age 75 from lung ancer with brain mets.) Additional Family Medical History / Comment(s): lung with mets brain Father Family Medical History: No Reported History (Father at the age of 78 at [facility] suddenly.) Additional Family Medical History / Comment(s): states, "he just ." Brother(s) Family Medical History: No Reported History (patient has one brother with no major health issues.) Sister(s) Family Medical History: No Reported History (Patient has one sister with no major health issues.) Additional Family Medical History / Comment(s): Patient has 2 step daughters. Medications and Allergies Home Medications Medication Instructions Recorded Confirmed Type Levothyroxine Sodium [Synthroid] 150 mcg PO DAILY 10/17/16 08/08/20 History Albuterol Inhaler [Ventolin Hfa 2 puff INHALATION RT-QID PRN 12/30/19 08/08/20 History Inhaler] Losartan-Hctz 50-12.5 mg [Hyzaar 1 tab PO DAILY 12/30/19 08/08/20 History 50-12.5] Metoprolol Tartrate [Lopressor] 50 mg PO HS 12/30/19 08/08/20 History Ascorbic Acid [Vitamin C] 2,000 mg PO HS 07/13/20 08/08/20 History Cholecalciferol [Vitamin D3 (25 2,000 unit PO HS 07/13/20 08/08/20 History Mcg = 1000 Iu)] Ipratropium-Albuterol Nebulize 3 ml INHALATION RT-QID PRN 07/13/20 08/08/20 History [Duoneb 0.5 mg-3 mg/3 ml Soln] Furosemide [Lasix] 20 mg PO DAILY PRN 08/08/20 08/08/20 History Allergies Allergy/AdvReac Type Severity Reaction Status Date / Time No Known Allergies Allergy Verified 08/08/20 14:29 Physical Exam Vitals: Vital Signs Temp Pulse Resp BP Pulse Ox 08/08/20 17:20 104 H 15 96/61 99 08/08/20 17:10 98.7 F 103 H 23 80/53 95 08/08/20 16:49 76/52 08/08/20 16:32 103 H 18 71/46 99 08/08/20 16:07 107 H 79/52 99 08/08/20 16:00 105 H 18 83/55 100 08/08/20 15:55 85 18 122/72 99 08/08/20 15:49 107 H 18 66/40 95 08/08/20 15:35 108 H 18 66/40 95 08/08/20 14:30 105 H 18 70/41 97 08/08/20 14:20 105 H 17 64/40 97 08/08/20 14:10 107 H 18 70/36 97 08/08/20 14:00 106 H 18 64/39 98 08/08/20 13:50 107 H 17 67/46 97 08/08/20 13:40 106 H 17 65/55 97 08/08/20 13:30 110 H 18 69/39 97 08/08/20 13:20 111 H 18 66/39 98 08/08/20 13:13 98.5 F 109 H 18 69/43 95 08/08/20 13:11 73 L Intake and Output 08/08/20 08/08/20 08/08/20 06:59 14:59 22:59 Intake Total 137.465 Balance 137.465 Intake: Intake, IV Titration 137.465 Amount Norepinephrine 32 mg In 7.465 Sodium Chloride 0.9% 218 ml @ 0.05 MCG/KG/MIN 2. 445 mls/hr IV .Q24H [facility]MA Rx#:[id number] Sodium Chloride 0.9% 1, 130 000 ml @ 130 mls/hr IV . Q7H42M ALMA Rx#:[id number] Other: Weight 104.326 kg 104.326 kg Physical examination: General: patient is 60 year old lying down in bed in moderate distress. HEENT: head ia atraumatic normocephalic, Pupils were equal round reactive to light and accommodations , extra ocular muscle movement were intact, mucous membranes of the mouth are somewhat dry. Neck: supple no JVP.' Chest: decreased breath sounds at he bases with few ronchi no expiratory wheezes no chest wall tendernes or intercostal retractions. Heart: first heart sound is depressed, second heart sound is normal tachycardic there is BIRD 2/6 located at the left sternal border. Abdomen: soft, mild tenderness to the left lower quadrant positive bowel sounds, no guarding or rebound tenderness, no hepatosplenomegaly. Extremities: there is no edema or calf tenderness DP+ 2 Bilaterally, there is what appears to be a charcot joint in the right foot form arch collapse. Neurologic examination: patient is awake , alert and oriented X 3 CN II-XII are grossly intact, muscle power 4/5 in bilateral upper and lower extremities, deep tendon reflexes were normal. Results CBC & Chem 7: 08/10/20 03:02 08/10/20 03:27 Labs: Abnormal Lab Results - Last 24 Hours (Table) 08/08/20 08/08/20 08/08/20 Range/Units 13:24 13:24 13:24 WBC 20.7 H (3.8-10.6) k/uL RBC 4.10 L (4.30-5.90) m/uL Hgb 10.6 L (13.0-17.5) gm/dL Hct 34.7 L (39.0-53.0) % MCHC 30.5 L (31.0-37.0) g/dL RDW 17.5 H (11.5-15.5) % Neutrophils # 14.5 H (1.3-7.7) k/uL Monocytes # 1.8 H (0-1.0) k/uL APTT 19.3 L (22.0-30.0) sec Sodium 134 L (137-145) mmol/L Carbon Dioxide 16 L (22-30) mmol/L BUN 72 H (9-20) mg/dL Creatinine 7.63 H* (0.66-1.25) mg/dL Glucose 106 H (74-99) mg/dL Plasma Lactic Acid Caden (0.7-2.0) mmol/L Creatine Kinase 36 L (55-170) U/L Albumin 2.7 L (3.5-5.0) g/dL Urine Protein (Negative) Urine Blood (Negative) Ur Leukocyte Esterase (Negative) Urine RBC (0-5) /hpf Urine WBC (0-5) /hpf Amorphous Sediment (None) /hpf Urine Bacteria (None) /hpf Hyaline Casts (0-2) /lpf Urine Mucus (None) /hpf 08/08/20 08/08/20 Range/Units 13:24 17:14 WBC (3.8-10.6) k/uL RBC (4.30-5.90) m/uL Hgb (13.0-17.5) gm/dL Hct (39.0-53.0) % MCHC (31.0-37.0) g/dL RDW (11.5-15.5) % Neutrophils # (1.3-7.7) k/uL Monocytes # (0-1.0) k/uL APTT (22.0-30.0) sec Sodium (137-145) mmol/L Carbon Dioxide (22-30) mmol/L BUN (9-20) mg/dL Creatinine (0.66-1.25) mg/dL Glucose (74-99) mg/dL Plasma Lactic Acid Caden 2.4 H* (0.7-2.0) mmol/L Creatine Kinase (55-170) U/L Albumin (3.5-5.0) g/dL Urine Protein 1+ H (Negative) Urine Blood Small H (Negative) Ur Leukocyte Esterase Small H (Negative) Urine RBC 6 H (0-5) /hpf Urine WBC 19 H (0-5) /hpf Amorphous Sediment Rare H (None) /hpf Urine Bacteria Occasional H (None) /hpf Hyaline Casts 89 H (0-2) /lpf Urine Mucus Few H (None) /hpf Thrombosis Risk Factor Assmnt - DVT/VTE Prophylaxis DVT/VTE Prophylaxis: Pharmacologic Prophylaxis ordered - Choose All That Apply Each Factor Represents 1 point: Medical pt on bed rest, Sepsis (< 1month), Serious lung disease incl. pneumonia (< 1month) Each Risk Factor Represents 3 Points: History of DVT/PE Other congenital or acquired thrombophilia - If yes, enter type in comment: No Thrombosis Risk Factor Assessment Total Risk Factor Score: 6 Thrombosis Risk Factor Assessment Level: High Risk Assessment and Plan Assessment: Assessment and plan: 1. Acute hypoxic respiratory failure secondary to hypovolemia from nausea vomiting diarrhea. we will continue with O2 support and IVF along with Levophed drip, we yuliya continue to monitor in the ICU, is following, we will continue with Duoneb qid. 2. Acute kidney injury secondary to acute tubular necosis due to hypotension and fluid loss. we will continue with sodium Bicarb drip and Levophed drip, we will continue with following CMP and Nephrology is following. 3. Anion gap metabolic acidosis and lactic acidosis secondary to renal failure. we will continue with Bicarb drip for 1-2 days. 4. Hypovolemic shock secondary to dehydration requiring vasopressors in thr form of Levophed we will continue with IVF as well, and monitoring very closely. 5. SIRS with hypotension, tachycardia and leukocytosis. no identified infection so far, we will continue with Levaquin and Zosyn for now, we will obtain sputum cultures, blood cultures and we will check stool for C.Diff infection. 6. Possible pneumonia not completely excluded, scar tissue. we will continue with O2 support, Levaquin and Zosyn and we will check sputum cultures. 7. Possible gastroenteritis causing nausea vomiting diarrhea rule out C.diff infection, we will check stool for C.Diff Toxins. 8. Rheumatoid arthritis and rheumatoid lung. we will hold off Xeljanz and arava for now. 9. History of empyema with Streptococcus requiring chest tube. 10. Hypertension and hypertensive cardiovascular disease. currently hypotensive we will hold off Losartan and Metoprolol. 11. Hypothyroidism . we will continue with Synthroid 150 mcg orally daily. 12. DVT prophylaxis. we will start Lovenox 30 mg SC daily and bilateral knee high felisha hose. 13. GI prophylaxis. we will continue with Protonix 40 mg IVP daily. 14. Admits to inpatient , estimated length of stay 2 midnights. 15. Full code.
[2020-08-10] MEDS: SODIUM CHLORIDE 0.9% 1,000 ML IV SCH ×2 (06:13→15:30)
[2020-08-10] MEDS: LEVOTHYROXINE 75 MCG TAB PO SCH (06:26)
[2020-08-10] MEDS ORDERED: METOPROLOL TARTRATE 25 MG TAB PO STA (07:37)
--- NOTE | 2020-08-10 07:37 | P.PN ---
Subjective Progress Note Date: 08/10/20 60-year-old male patient presented emergency department because of generalized weakness and fatigue. Symptoms over the past few days. He had increased nausea vomiting and diarrhea. He was vomiting for the past 3 days around 4-5 times on a daily basis. He also obviously had a diminished oral intake. He had couple of diarrhea episodes on a daily basis. No abdominal pain. The patient is known to have history of rheumatoid arthritis along with previous history of rheumatoid lung disease in addition to a previous history of loculated empyema requiring chest tube placement back in January 2020. This was attributed to streptococcal pneumonia. He has also history of hypertension, hypothyroidism and previous history of DVT. 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 He was subsequently hospitalized on 07/18/2020 and his coronavirus/Covid 19 testing came back negative. He did have an acute kidney injury and his creatinine was up to 11 and he also had a component of metabolic acidosis. The patient was given IV fluids and pressors and his condition was stabilized. A CAT scan of the chest that was done at that time showed chronic changes in lower lungs related to rheumatoid arthritis. He also had a new consolidation and elbow grams in the left hilar region and new multifocal groundglass organizing pneumonia in the right upper lobe for which she was treated. Doppler of the lower extremity showed no evidence of any DVT.. During this current admission, the patient's creatinine was again up to his BUN is at 72 and this serum bicarbonate 16 and there is an anion gap of 18. His CPK was 36, liver function tests are within normal limits. Lactic acid level of 2.4 and troponins were negative. The repeat Covid 19 testing came back again negative. The chest x-ray shows a component of CHF with cardiomegaly and mild to moderate alveolar and interstitial edema and a small left-sided pleural effusion. His evaluation 08/09/2020, the patient is feeling great. Overnight, he was resuscitated with IV fluids and the patient receiving D5W with sodium bicarbonate at the rate of 150 mL an hour. He is producing urine output adequate and the serum bicarb is at 16. His urine output is in order of 300 mL an hour. The creatinine is down to 5.13. The rest of the electrolytes are essentially within normal limits. Serum bicarb is at 16. Anion gap is at 18. The UA was showing 19 WBCs and urine cultures are still pending for now. His white cell count is down to 17.8 with a hemoglobin of 11.9. No further episodes of nausea or vomiting or diarrhea or abdominal pain. No chest pain. His chest x-ray from today, is showing no acute abnormalities. He has chronic changes and scarring in the right lung base related to previous bouts of pneumonia/empyema. Otherwise, the patient is still requiring pressors and he is running on no low- dose norepinephrine at 0.05 mcg/kg per minute. He is coronavirus/Covid 19 testing came back negative. His lactic acid level is normalized on to 1.1. 08/10/2020, the patient for a follow-up. The patient remains in intensive care unit. The patient has been off pressors over the past 24 hours. IV fluid is running was in the form of D5 water with 3 A of bicarb and the patient serum bicarb progressively improved and currently is up to 31. Based on that, the IV fluids has been switched to normal saline running at a rate of 100 mL an hour. Renal function continues to improve in the creatinine is down to 3.25, and the patient is making adequate urine output in order of 51 5200 mL an hour. White cell count at 16.1. He did have a bout of diarrhea yesterday. Stool for C. diff was sent and it was negative. He is afebrile. No nausea. No emesis. Tolerating diet. No altered mentation. His lactic acid level has also improved. The patient was taken off the IV Levaquin he was kept on IV Zosyn. I think the Zosyn can be also discontinued and there is no clear indication for an underlying sepsis. The patient was quite dehydrated and intravascular volume was quite dehydrated at time of his admission and he was in hypovolemic shock and all these abnormalities improved. Objective - Vital Signs Vital signs: Vital Signs Temp 97.6 F 08/10/20 04:00 Pulse 82 08/10/20 07:00 Resp 18 08/10/20 07:00 BP 107/82 08/10/20 07:00 Pulse Ox 97 08/10/20 07:00 Intake & Output 08/09/20 08/10/20 08/10/20 18:59 06:59 18:59 Intake Total 4497.880 2683 110 Output Total 2790 1030 120 Balance -928.793 630 -10 Weight 94.4 kg Intake: IV 1650 1210 110 0.9 Na Cl @ 100ml/hr 1100 100 0.9 Na Cl KVO 110 10 Dextrose 5% in Water 1, 1650 000 ml @ 150 mls/hr IV . Q7H40M [facility]MA with Sodium Bicarb (1 Meq/ml) 150 ml Rx#:[id number] Intake, IV Titration 111.207 100 Amount Norepinephrine 32 mg In 11.207 Sodium Chloride 0.9% 218 ml @ 0.05 MCG/KG/MIN 2. 445 mls/hr IV .Q24H [facility] Rx#:[id number] Piperacillin-Tazobactam 3 100 .375 gm In Sodium Chloride 0.9% 100 ml @ 25 mls/hr IVPB Q12HR [facility] Rx #:[id number] Sodium Chloride 0.9% 1, 100 000 ml @ 100 mls/hr IV . Q10H [facility] Rx#:[id number] Oral 100 350 Output: Urine 2790 1030 120 Other: Voiding Method Indwelling Catheter Indwelling Catheter - Exam GENERAL EXAM: Alert, very pleasant, 60-year-old white male, on room air oxygen , no apparent distress. HEAD: Normocephalic/atraumatic. EYES: Normal reaction of pupils, equal size. Conjunctiva pink, sclera white. NOSE: Clear with pink turbinates. THROAT: No erythema or exudates. NECK: No masses, no JVD, no thyroid enlargement, no adenopathy. CHEST: No chest wall deformity. Symmetrical expansion. LUNGS: Equal air entry with some bibasilar crackles, no major wheezing or coughing or rhonchi CVS: Regular rate and rhythm, normal S1 and S2, no gallops, no murmurs, no rubs ABDOMEN: Soft, nontender. No hepatosplenomegaly, normal bowel sounds, no guarding or rigidity. EXTREMITIES: No clubbing, no edema, no cyanosis, 2+ pulses and upper and lower extremities. MUSCULOSKELETAL: Muscle strength and tone normal. SPINE: No scoliosis or deformity SKIN: No rashes CENTRAL NERVOUS SYSTEM: Alert and oriented -3. No focal deficits, tone is normal in all 4 extremities. PSYCHIATRIC: Alert and oriented -3. Appropriate affect. Intact judgment and insight. - Labs CBC & Chem 7: 08/10/20 03:02 08/10/20 03:27 Labs: Abnormal Lab Results - Last 24 Hours (Table) 08/09/20 08/09/20 08/10/20 Range/Units 17:27 17:27 03:02 WBC 16.1 H (3.8-10.6) k/uL RBC 3.51 L (4.30-5.90) m/uL Hgb 9.4 L D (13.0-17.5) gm/dL Hct 29.5 L (39.0-53.0) % RDW 17.5 H (11.5-15.5) % Chloride 96 L (98-107) mmol/L Carbon Dioxide (22-30) mmol/L BUN 52 H (9-20) mg/dL Creatinine 3.77 H (0.66-1.25) mg/dL Glucose 153 H (74-99) mg/dL Calcium (8.4-10.2) mg/dL Magnesium 1.5 L (1.6-2.3) mg/dL Total Protein (6.3-8.2) g/dL Albumin (3.5-5.0) g/dL 08/10/20 Range/Units 03:27 WBC (3.8-10.6) k/uL RBC (4.30-5.90) m/uL Hgb (13.0-17.5) gm/dL Hct (39.0-53.0) % RDW (11.5-15.5) % Chloride (98-107) mmol/L Carbon Dioxide 31 H (22-30) mmol/L BUN 50 H (9-20) mg/dL Creatinine 3.25 H (0.66-1.25) mg/dL Glucose 128 H (74-99) mg/dL Calcium 8.1 L (8.4-10.2) mg/dL Magnesium (1.6-2.3) mg/dL Total Protein 6.1 L (6.3-8.2) g/dL Albumin 2.6 L (3.5-5.0) g/dL Microbiology - Last 24 Hours (Table) 08/08/20 17:14 Urine Culture - Final Urine,Clean Catch 08/08/20 16:18 Blood Culture - Preliminary Blood No Growth after 24 hours Assessment and Plan Plan: 1 acute kidney injury secondary to intravascular volume depletion/dehydration. Previous ultrasound the kidneys showed no evidence of any hydronephrosis. The patient has had a similar episode of acute kidney injury/ATN on previous hospitalization the patient renal function remained recovered with IV fluids. The patient is producing adequate amount of urine output. Acute kidney injury was related to intravascular volume depletion and the patient's creatinine is improving. The metabolic acidosis is also improved. 2 acute hypotension, probably secondary to intravascular volume depletion , recovered 3 chronic perihilar pulmonary infiltrates with increased interstitial changes in the lung bases more so on the right, probably a combination of rheumatoid lung and chronic scarring related to a previous pneumonia/empyema 4 previous pneumonia back in December 2019 requiring a chest tube insertion for an empyema 5 acute hypoxic respiratory failure , recovered currently on room air oxygen 6 rheumatoid arthritis with rheumatoid lungs/fibrosis maintained on a combination of Arava and prednisone outpatient basis 7 hypertension 8 hypothyroidism 9 previous history of foot infections requiring of antibiotics 10 previous history of DVT 11 persistent nausea and emesis and diarrhea. Consider underlying C. diff colitis , the testing came back negative for C. diff colitis 12 leukocytosis, white cell count is at 16.1 13 mild chronic normocytic anemia 14 mild lactic acidosis with anion gap metabolic acidosis, recovered Plan The patient is on NSS 100 mL an hour Monitor urine output and creatinine, improving Repeat ultrasound the kidneys Continue pressors and monitor CVP and wean off the pressors Stop Zosyn Resume all medications including Synthroid Restart metoprolol Transfer this patient to a medical floor after he gets his blessing from nephrology
[2020-08-10] MEDS: PANTOPRAZOLE 40 MG/10 ML VIAL IV SCH (08:14)
--- NOTE | 2020-08-10 10:42 | P.PN ---
Subjective Patient is seen in follow for acute kidney injury. Renal function improving. Nonoliguric. Still has loose bowel movements. C. diff negative. Maintained on IV fluids. Off vasopressors. Vital signs are stable. General: The patient appeared well nourished and normally developed. HEENT: Head exam is unremarkable. Neck is without jugular venous distension. LUNGS: Breath sounds decreased. HEART: Rate and Rhythm are regular. ABDOMEN: Soft, nontender. EXTREMITITES: No edema. Objective - Vital Signs Vital signs: Vital Signs Temp 97.8 F 08/10/20 08:00 Pulse 92 08/10/20 10:00 Resp 20 08/10/20 10:00 BP 97/77 08/10/20 10:00 Pulse Ox 96 08/10/20 10:00 Intake & Output 08/09/20 08/10/20 08/10/20 18:59 06:59 18:59 Intake Total 9162.773 4484 440 Output Total 2790 1030 360 Balance -928.793 630 80 Weight 94.4 kg Intake: IV 1650 1210 440 0.9 Na Cl @ 100ml/hr 1100 400 0.9 Na Cl KVO 110 40 Dextrose 5% in Water 1, 1650 000 ml @ 150 mls/hr IV . Q7H40M [facility] with Sodium Bicarb (1 Meq/ml) 150 ml Rx#:[id number] Intake, IV Titration 111.207 100 Amount Norepinephrine 32 mg In 11.207 Sodium Chloride 0.9% 218 ml @ 0.05 MCG/KG/MIN 2. 445 mls/hr IV .Q24H [facility] Rx#:[id number] Piperacillin-Tazobactam 3 100 .375 gm In Sodium Chloride 0.9% 100 ml @ 25 mls/hr IVPB Q12HR [facility] Rx #:[id number] Sodium Chloride 0.9% 1, 100 000 ml @ 100 mls/hr IV . Q10H [facility] Rx#:[id number] Oral 100 350 Output: Urine 2790 1030 360 Other: Voiding Method Indwelling Catheter Indwelling Catheter Indwelling Catheter - Labs CBC & Chem 7: 08/10/20 03:02 08/10/20 03:27 Labs: Abnormal Lab Results - Last 24 Hours (Table) 08/09/20 08/09/20 08/10/20 Range/Units 17:27 17:27 03:02 WBC 16.1 H (3.8-10.6) k/uL RBC 3.51 L (4.30-5.90) m/uL Hgb 9.4 L D (13.0-17.5) gm/dL Hct 29.5 L (39.0-53.0) % RDW 17.5 H (11.5-15.5) % Chloride 96 L (98-107) mmol/L Carbon Dioxide (22-30) mmol/L BUN 52 H (9-20) mg/dL Creatinine 3.77 H (0.66-1.25) mg/dL Glucose 153 H (74-99) mg/dL Calcium (8.4-10.2) mg/dL Magnesium 1.5 L (1.6-2.3) mg/dL Total Protein (6.3-8.2) g/dL Albumin (3.5-5.0) g/dL 08/10/20 08/10/20 Range/Units 03:27 03:27 WBC (3.8-10.6) k/uL RBC (4.30-5.90) m/uL Hgb (13.0-17.5) gm/dL Hct (39.0-53.0) % RDW (11.5-15.5) % Chloride (98-107) mmol/L Carbon Dioxide 31 H (22-30) mmol/L BUN 50 H (9-20) mg/dL Creatinine 3.25 H (0.66-1.25) mg/dL Glucose 128 H (74-99) mg/dL Calcium 8.1 L (8.4-10.2) mg/dL Magnesium 1.5 L (1.6-2.3) mg/dL Total Protein 6.1 L (6.3-8.2) g/dL Albumin 2.6 L (3.5-5.0) g/dL Microbiology - Last 24 Hours (Table) 08/08/20 17:14 Urine Culture - Final Urine,Clean Catch 08/08/20 16:18 Blood Culture - Preliminary Blood No Growth after 24 hours Assessment and Plan Plan: Assessment: 1. Acute kidney injury mostly prerenal secondary to hypovolemia from vomiting, diarrhea and Hyzaar. Creatinine 7.63 on admission and is 3.25 today. Baseline creatinine near 1 from January 2020. No hydronephrosis noted on kidney ultrasound. 2. Metabolic acidosis secondary to acute kidney injury and diarrhea. Resolved. Status post bicarb drip. 3. Shock status post Levophed. 4. History of rheumatoid arthritis. 5. Vomiting and diarrhea. Possibly gastroenteritis. C. diff negative. Better. 6. Hypomagnesemia secondary to GI losses and poor intake. Plan: Maintain normal saline. Avoid nephrotoxins. Continue to monitor renal function and urine output. Replace magnesium. 2 g IV today.
[2020-08-10] MEDS ORDERED: Magnesium Replacement Protocol 1 EACH MISC MISCELLANE PRN (10:56)
[2020-08-10] MEDS: MAGNESIUM SULFATE-D5W PMX 1 GM in DEXTROSE/WATER 1 100ML.BAG IVPB SCH ×2 (11:36→13:08)
--- NOTE | 2020-08-10 12:19 | P.PN ---
Subjective Progress Note Date: 08/10/20 This is a 60-year-old gentleman who was recently treated for pneumonia who came back with complaints of generalized weakness and fatigue. A she was found to be dehydrated. Patient was not eating well because of nausea and also have was having diarrhea. Patient was given IV fluids. Since admission, he is feeling much better. His creatinine is improving. Patient's with initial EKG shows mild ST-T changes. However second EKG showed normal findings. Patient is feeling better without any chest pain or shortness of breath. He may have some underlying pneumonia which is being addressed. Patient is being transferred to telemetry unit. We'll follow Objective - Vital Signs Vital signs: Vital Signs Temp 97.8 F 08/10/20 08:00 Pulse 92 08/10/20 10:00 Resp 20 08/10/20 10:00 BP 97/77 08/10/20 10:00 Pulse Ox 96 08/10/20 10:00 Intake & Output 08/09/20 08/10/20 08/10/20 18:59 06:59 18:59 Intake Total 3985.723 8262 440 Output Total 2790 1030 360 Balance -928.793 630 80 Weight 94.4 kg Intake: IV 1650 1210 440 0.9 Na Cl @ 100ml/hr 1100 400 0.9 Na Cl KVO 110 40 Dextrose 5% in Water 1, 1650 000 ml @ 150 mls/hr IV . Q7H40M [facility] with Sodium Bicarb (1 Meq/ml) 150 ml Rx#:[id number] Intake, IV Titration 111.207 100 Amount Norepinephrine 32 mg In 11.207 Sodium Chloride 0.9% 218 ml @ 0.05 MCG/KG/MIN 2. 445 mls/hr IV .Q24H [facility] Rx#:[id number] Piperacillin-Tazobactam 3 100 .375 gm In Sodium Chloride 0.9% 100 ml @ 25 mls/hr IVPB Q12HR [facility] Rx #:[id number] Sodium Chloride 0.9% 1, 100 000 ml @ 100 mls/hr IV . Q10H [facility] Rx#:[id number] Oral 100 350 Output: Urine 2790 1030 360 Other: Voiding Method Indwelling Catheter Indwelling Catheter Indwelling Catheter - Exam GENERAL EXAM: Patient is alert and oriented and doesn't appear to be in any acute distress HEENT: Normocephalic. Normal reaction of pupils, equal size, normal range of extraocular motion. No erythema or exudates in the throat. NECK: No masses, no nuchal rigidity. CHEST: No chest wall deformity. LUNGS: Equal air entry with no crackles or wheeze. HEART: S1 and S2 normal with no audible mumurs or gallops. Regular rhythm, femorals equal on both sides.. ABDOMEN: No hepatosplenomegaly, normal bowel sounds, no guarding or rigidity. SKIN: No rashes CENTRAL NERVOUS SYSTEM: No focal deficits. EXTREMITIES: No cyanosis, clubbing or edema. - Labs CBC & Chem 7: 08/10/20 03:02 08/10/20 03:27 Labs: Abnormal Lab Results - Last 24 Hours (Table) 08/09/20 08/09/20 08/10/20 Range/Units 17:27 17:27 03:02 WBC 16.1 H (3.8-10.6) k/uL RBC 3.51 L (4.30-5.90) m/uL Hgb 9.4 L D (13.0-17.5) gm/dL Hct 29.5 L (39.0-53.0) % RDW 17.5 H (11.5-15.5) % Chloride 96 L (98-107) mmol/L Carbon Dioxide (22-30) mmol/L BUN 52 H (9-20) mg/dL Creatinine 3.77 H (0.66-1.25) mg/dL Glucose 153 H (74-99) mg/dL Calcium (8.4-10.2) mg/dL Magnesium 1.5 L (1.6-2.3) mg/dL Total Protein (6.3-8.2) g/dL Albumin (3.5-5.0) g/dL 08/10/20 08/10/20 Range/Units 03:27 03:27 WBC (3.8-10.6) k/uL RBC (4.30-5.90) m/uL Hgb (13.0-17.5) gm/dL Hct (39.0-53.0) % RDW (11.5-15.5) % Chloride (98-107) mmol/L Carbon Dioxide 31 H (22-30) mmol/L BUN 50 H (9-20) mg/dL Creatinine 3.25 H (0.66-1.25) mg/dL Glucose 128 H (74-99) mg/dL Calcium 8.1 L (8.4-10.2) mg/dL Magnesium 1.5 L (1.6-2.3) mg/dL Total Protein 6.1 L (6.3-8.2) g/dL Albumin 2.6 L (3.5-5.0) g/dL Microbiology - Last 24 Hours (Table) 08/08/20 17:14 Urine Culture - Final Urine,Clean Catch 08/08/20 16:18 Blood Culture - Preliminary Blood No Growth after 24 hours Assessment and Plan (1) Essential hypertension Current Visit: Yes Status: Acute Code(s): I10 - ESSENTIAL (PRIMARY) HYPERTENSION SNOMED Code(s): 46531156 (2) Acute renal failure Current Visit: Yes Status: Acute Code(s): N17.9 - ACUTE KIDNEY FAILURE, UNSPECIFIED SNOMED Code(s): 48390141 (3) Pneumonia Current Visit: Yes Status: Acute Code(s): J18.9 - PNEUMONIA, UNSPECIFIED ORGANISM SNOMED Code(s): 189244622 (4) Dehydration Current Visit: No Status: Acute Code(s): E86.0 - DEHYDRATION SNOMED Code(s): 55751064 (5) Abnormal EKG Current Visit: Yes Status: Acute Code(s): R94.31 - ABNORMAL ELECTROCARDIOGRAM [ECG] [EKG] SNOMED Code(s): 617792064 Plan: At this point patient doesn't have any symptoms of angina and his troponins 2 are negative. We will get an echocardiogram to assess LV function and rule out any segmental wall motion defects. If there are no segmental wall motion defects, no further evaluation at this time, as long as patient is chest pain-fr ee. Continue rest of the supportive care treatment for possible pneumonia. 08/10/2020: Patient is feeling much better. He'll continue current medical therapy. Patient is being transferred to telemetry unit. Cardiac-viera, patient is stable.
[2020-08-10] MEDS: NOREPINEPHRINE 32 MG in SODIUM CHLORIDE 0.9% 218 ML IV SCH (14:05)
--- NOTE | 2020-08-10 14:26 | P.PN ---
Subjective Progress Note Date: 08/09/20 This is a 60-year-old male patient requesting my service with past medical history of rheumatoid arthritis on Arava that was diagnosed when he was 37 year old initially was started on Methotrexate that he could not tolerate then placed on Embrel but he developed side effects and finally was tried on Humira injection but he developed neurologic sided effects and was hospitaized at [facility] for quiet some time, rheumatoid lung disease, previous history of loculated empyema with chest tube placement in January 2020, hypertension, hypothyroidism, history of DVT, remote history of tobacco use and dependence, was recently seen by Dr. Dutton and he was placed on two antibiotics and 2 steroids and he was feeling better that wa about 2 weeks ago Patient complains of generalized weakness and tingling going on for a few days along with nausea, vomiting and diarrhea. He has been unable to keep any food down. He denies having any abdominal pain. He complains of feeling fatigued and achy all over. Patient was found to be afebrile but mildly tachycardic in the low 100s, hypotensive with blood pressure 69/43, pulse ox 73% on room air. Patient received 3 L of fluid and Decadron in the emergency center. A central line was placed and patient was started on norepinephrine drip. EKG was sinus tachycardia with incomplete right bundle branch block. WBC 20.7, hemoglobin 10.6, platelet count 3 and 45. Sodium 134, potassium 3.6, chloride 100, CO2 16, BUN 72 and creatinine 7.63. Blood sugar 106. CK 36. Liver function tests normal. Lactic acid 2.4. Troponin negative. Coronavirus PCR not detected. Chest x-ray reveals cardiomegaly with patchy mid and lower lung bases with small left effusion. Consider pneumonia or sequela of CHF. Patient received IV Levaquin and Zosyn in the emergency center. He was admitted to the intensive care unit and started on a bicarb drip and continued on vasopressors. Consult with pulmonary medicine, nephrology and cardiology. 08/09: Patient remains in the intensive care unit. He states that he feels 100% better. He has had good urine output. He states he has had some nausea with eating. Stools this morning were a little loose. Patient has been on a bicarb drip currently off levo fed. He states his foot pain is improved from yesterday. Sputum culture has not been obtained. WBC 17.8, hemoglobin 11.9, platelet count 335. Sodium 136, but isn't 4.3, chloride 102, CO2 16, BUN 62 and creatinine 5.13. Blood sugar 266. Alkaline phosphatase 133. Objective - Vital Signs Vital signs: Vital Signs Temp 97.5 F L 08/10/20 12:00 Pulse 89 08/10/20 12:00 Resp 21 08/10/20 12:00 BP 142/93 08/10/20 12:00 Pulse Ox 95 08/10/20 12:00 Intake & Output 08/09/20 08/10/20 08/10/20 18:59 06:59 18:59 Intake Total 8770.262 0792 740 Output Total 2790 1030 430 Balance -928.793 630 310 Weight 94.4 kg Intake: IV 1650 1210 740 0.9 Na Cl @ 100ml/hr 1100 500 0.9 Na Cl KVO 110 40 Dextrose 5% in Water 1, 1650 000 ml @ 150 mls/hr IV . Q7H40M [facility] with Sodium Bicarb (1 Meq/ml) 150 ml Rx#:[id number] Magnesium Sulfate-D5w Pmx 200 1 gm In Dextrose/Water 1 100ml.bag @ 100 mls/hr IVPB Q1H [facility] Rx#: [id number] Intake, IV Titration 111.207 100 Amount Norepinephrine 32 mg In 11.207 Sodium Chloride 0.9% 218 ml @ 0.05 MCG/KG/MIN 2. 445 mls/hr IV .Q24H [facility] Rx#:[id number] Piperacillin-Tazobactam 3 100 .375 gm In Sodium Chloride 0.9% 100 ml @ 25 mls/hr IVPB Q12HR [facility] Rx #:[id number] Sodium Chloride 0.9% 1, 100 000 ml @ 100 mls/hr IV . Q10H [facility] Rx#:[id number] Oral 100 350 Output: Urine 2790 1030 430 Other: Voiding Method Indwelling Catheter Indwelling Catheter Indwelling Catheter - Exam Review of Systems Constitutional: Reports fatigue, Reports weakness, Denies anorexia, Denies chronic pain Eyes: denies blurred vision, denies bulging eye, denies decreased vision Ears, nose, mouth and throat: Denies dysphagia, Denies neck lump, Denies sore throat Cardiovascular: Reports lightheadedness, Reports rapid heart beat, Denies chest pain, Denies decreased exercise tolerance, Denies dyspnea on exertion, Denies leg edema, Denies shortness of breath, Denies syncope Respiratory: Denies congestion, Denies cough, Denies cough with sputum, Denies home oxygen, Denies sleep apnea, Denies snoring, Denies wheezing Gastrointestinal: Reports change in bowel habits, Reports diarrhea, Reports dyspepsia, Reports early satiety, Reports excessive gas, Reports nausea, Reports vomiting, Denies abdominal pain, Denies bloating, Denies BRBPR, Denies constipation, Denies heartburn, Denies hematemesis, Denies hematochezia, Denies jaundice, Denies lactose intolerance, Denies loss of appetite, Denies melena Genitourinary: Reports nocturia, Denies dysuria Musculoskeletal: Denies atrophy, Denies fractures, Denies frequent falls Musculoskeletal: right: ankle pain, ankle stiffness, ankle swelling, foot pain, foot stiffness, foot swelling, absent: elbow pain, elbow stiffness, elbow swelling, hand pain, hand stiffness, hand swelling, hip pain, hip stiffness, hip swelling, knee pain, knee stiffness, knee swelling, shoulder pain, shoulder stif fness, shoulder swelling, wrist pain, wrist stiffness, wrist swelling Integumentary: Denies pruritus, Denies rash Neurological: Denies numbness, Denies weakness Psychiatric: Denies anxiety, Denies depression Physical examination: General: patient is 60 year old lying down in bed in no distress. HEENT: head ia atraumatic normocephalic, Pupils were equal round reactive to light and accommodations , extra ocular muscle movement were intact, mucous membranes of the mouth are somewhat dry. Neck: supple no JVP.' Chest: decreased breath sounds at he bases with few ronchi no expiratory wheezes no chest wall tendernes or intercostal retractions. Heart: first heart sound is depressed, second heart sound is normal tachycardic there is BIRD 2/6 located at the left sternal border. Abdomen: soft, mild tenderness to the left lower quadrant positive bowel sounds, no guarding or rebound tenderness, no hepatosplenomegaly. Extremities: there is no edema or calf tenderness DP+ 2 Bilaterally, there is what appears to be a charcot joint in the right foot form arch collapse. Neurologic examination: patient is awake , alert and oriented X 3 CN II-XII are grossly intact, muscle power 4/5 in bilateral upper and lower extremities, deep tendon reflexes were normal. - Labs CBC & Chem 7: 08/10/20 03:02 08/10/20 03:27 Labs: Abnormal Lab Results - Last 24 Hours (Table) 08/09/20 08/09/20 08/10/20 Range/Units 17:27 17:27 03:02 WBC 16.1 H (3.8-10.6) k/uL RBC 3.51 L (4.30-5.90) m/uL Hgb 9.4 L D (13.0-17.5) gm/dL Hct 29.5 L (39.0-53.0) % RDW 17.5 H (11.5-15.5) % Chloride 96 L (98-107) mmol/L Carbon Dioxide (22-30) mmol/L BUN 52 H (9-20) mg/dL Creatinine 3.77 H (0.66-1.25) mg/dL Glucose 153 H (74-99) mg/dL Calcium (8.4-10.2) mg/dL Magnesium 1.5 L (1.6-2.3) mg/dL Total Protein (6.3-8.2) g/dL Albumin (3.5-5.0) g/dL 08/10/20 08/10/20 Range/Units 03:27 03:27 WBC (3.8-10.6) k/uL RBC (4.30-5.90) m/uL Hgb (13.0-17.5) gm/dL Hct (39.0-53.0) % RDW (11.5-15.5) % Chloride (98-107) mmol/L Carbon Dioxide 31 H (22-30) mmol/L BUN 50 H (9-20) mg/dL Creatinine 3.25 H (0.66-1.25) mg/dL Glucose 128 H (74-99) mg/dL Calcium 8.1 L (8.4-10.2) mg/dL Magnesium 1.5 L (1.6-2.3) mg/dL Total Protein 6.1 L (6.3-8.2) g/dL Albumin 2.6 L (3.5-5.0) g/dL Microbiology - Last 24 Hours (Table) 08/08/20 17:14 Urine Culture - Final Urine,Clean Catch 08/08/20 16:18 Blood Culture - Preliminary Blood No Growth after 24 hours Assessment and Plan Assessment: Assessment and plan: 1. Acute hypoxic respiratory failure secondary to hypovolemia from nausea vomiting diarrhea. we will continue with O2 support and IVF along with Levophed drip, we yuliya continue to monitor in the ICU, is following, we will continue with Duoneb qid. 2. Acute kidney injury secondary to acute tubular necosis due to hypotension and fluid loss. we will continue with sodium Bicarb drip and Levophed drip, we will continue with following CMP and Nephrology is following. 3. Anion gap metabolic acidosis and lactic acidosis secondary to renal failure. we will continue with Bicarb drip for 1-2 days. 4. Hypovolemic shock secondary to dehydration requiring vasopressors in thr form of Levophed. Patient is currently off vasopressor. Continue with IVF as well, and monitoring very closely. 5. SIRS with hypotension, tachycardia and leukocytosis. no identified infection so far, we will continue with Levaquin and Zosyn for now, we will obtain sputum cultures, blood cultures and we will check stool for C.Diff infection. 6. Possible pneumonia not completely excluded, scar tissue. we will continue with O2 support, Levaquin and Zosyn and we will check sputum cultures. 7. Possible gastroenteritis causing nausea vomiting diarrhea rule out C.diff infection, we will check stool for C.Diff Toxins. 8. Rheumatoid arthritis and rheumatoid lung. we will hold off Xeljanz and arava for now. 9. History of empyema with Streptococcus requiring chest tube. 10. Hypertension and hypertensive cardiovascular disease. currently hypotensive we will hold off Losartan and Metoprolol. 11. Hypothyroidism . we will continue with Synthroid 150 mcg orally daily. 12. DVT prophylaxis. we will start Lovenox 30 mg SC daily and bilateral knee high felisha hose. 13. GI prophylaxis. we will continue with Protonix 40 mg IVP daily. 14. Admits to inpatient , estimated length of stay 2 midnights. 15. Full code.
--- NOTE | 2020-08-10 16:28 | P.PN ---
Subjective Progress Note Date: 08/10/20 This is a 60-year-old male patient requesting my service with past medical history of rheumatoid arthritis on Arava that was diagnosed when he was 37 year old initially was started on Methotrexate that he could not tolerate then placed on Embrel but he developed side effects and finally was tried on Humira injection but he developed neurologic sided effects and was hospitaized at [facility] for quiet some time, rheumatoid lung disease, previous history of loculated empyema with chest tube placement in January 2020, hypertension, hypothyroidism, history of DVT, remote history of tobacco use and dependence, was recently seen by Dr. Dutton and he was placed on two antibiotics and 2 steroids and he was feeling better that wa about 2 weeks ago Patient complains of generalized weakness and tingling going on for a few days along with nausea, vomiting and diarrhea. He has been unable to keep any food down. He denies having any abdominal pain. He complains of feeling fatigued and achy all over. Patient was found to be afebrile but mildly tachycardic in the low 100s, hypotensive with blood pressure 69/43, pulse ox 73% on room air. Patient received 3 L of fluid and Decadron in the emergency center. A central line was placed and patient was started on norepinephrine drip. EKG was sinus tachycardia with incomplete right bundle branch block. WBC 20.7, hemoglobin 10.6, platelet count 3 and 45. Sodium 134, potassium 3.6, chloride 100, CO2 16, BUN 72 and creatinine 7.63. Blood sugar 106. CK 36. Liver function tests normal. Lactic acid 2.4. Troponin negative. Coronavirus PCR not detected. Chest x-ray reveals cardiomegaly with patchy mid and lower lung bases with small left effusion. Consider pneumonia or sequela of CHF. Patient received IV Levaquin and Zosyn in the emergency center. He was admitted to the intensive care unit and started on a bicarb drip and continued on vasopressors. Consult with pulmonary medicine, nephrology and cardiology. 08/09: Patient remains in the intensive care unit. He states that he feels 100% better. He has had good urine output. He states he has had some nausea with eating. Stools this morning were a little loose. Patient has been on a bicarb drip currently off levo fed. He states his foot pain is improved from yesterday. Sputum culture has not been obtained. WBC 17.8, hemoglobin 11.9, platelet count 335. Sodium 136, but isn't 4.3, chloride 102, CO2 16, BUN 62 and creatinine 5.13. Blood sugar 266. Alkaline phosphatase 133. 08/10: Patient remains in intensive care unit but has been cleared for transfer to the cardiac stepdown unit. Patient verbalizes that he thinks he is ready to go home. Diarrhea has resolved. He denies any nausea vomiting. He is eating well but appetite is only okay. He has had good urine output. Pulse ox is 95% on room air. He has been afebrile, heart rate 86, blood pressure 106/80. Repeat blood work reveals WBC 16.1, hemoglobin 9.4, platelet count 289. CO2 31, BUN 15 creatinine 3.25. Blood sugar 128. C. difficile toxin negative. Patient is off vasopressor, off sodium bicarb. Objective - Vital Signs Vital signs: Vital Signs Temp 97.5 F L 08/10/20 12:00 Pulse 89 08/10/20 12:00 Resp 21 08/10/20 12:00 BP 142/93 08/10/20 12:00 Pulse Ox 95 08/10/20 12:00 Intake & Output 08/09/20 08/10/20 08/10/20 18:59 06:59 18:59 Intake Total 5820.162 2531 740 Output Total 2790 1030 430 Balance -928.793 630 310 Weight 94.4 kg Intake: IV 1650 1210 740 0.9 Na Cl @ 100ml/hr 1100 500 0.9 Na Cl KVO 110 40 Dextrose 5% in Water 1, 1650 000 ml @ 150 mls/hr IV . Q7H40M [facility] with Sodium Bicarb (1 Meq/ml) 150 ml Rx#:[id number] Magnesium Sulfate-D5w Pmx 200 1 gm In Dextrose/Water 1 100ml.bag @ 100 mls/hr IVPB Q1H [facility] Rx#: [id number] Intake, IV Titration 111.207 100 Amount Norepinephrine 32 mg In 11.207 Sodium Chloride 0.9% 218 ml @ 0.05 MCG/KG/MIN 2. 445 mls/hr IV .Q24H [facility] Rx#:[id number] Piperacillin-Tazobactam 3 100 .375 gm In Sodium Chloride 0.9% 100 ml @ 25 mls/hr IVPB Q12HR [facility] Rx #:[id number] Sodium Chloride 0.9% 1, 100 000 ml @ 100 mls/hr IV . Q10H [facility] Rx#:[id number] Oral 100 350 Output: Urine 2790 1030 430 Other: Voiding Method Indwelling Catheter Indwelling Catheter Indwelling Catheter - Exam Review of Systems Constitutional: Reports fatigue, denies weakness, Denies anorexia, Denies chronic pain Eyes: denies blurred vision, denies bulging eye, denies decreased vision Ears, nose, mouth and throat: Denies dysphagia, Denies neck lump, Denies sore throat Cardiovascular: Denies rapid heart beat, Denies chest pain, Denies decreased exercise tolerance, Denies dyspnea on exertion, Denies leg edema, Denies shortness of breath, Denies syncope Respiratory: Denies congestion, Denies cough, Denies cough with sputum, Denies home oxygen, Denies sleep apnea, Denies snoring, Denies wheezing Gastrointestinal: Reports change in bowel habits, denies diarrhea, Reports dyspepsia, Reports early satiety, Reports excessive gas, denies nausea, denies vomiting, Denies abdominal pain, Denies bloating, Denies BRBPR, Denies con stipation, Denies heartburn, Denies hematemesis, Denies hematochezia, Denies jaundice, Denies lactose intolerance, Denies loss of appetite, Denies melena Genitourinary: Reports nocturia, Denies dysuria Musculoskeletal: Denies atrophy, Denies fractures, Denies frequent falls Musculoskeletal: right: ankle pain, ankle stiffness, ankle swelling, foot pain, foot stiffness, foot swelling, absent: elbow pain, elbow stiffness, elbow swelling, hand pain, hand stiffness, hand swelling, hip pain, hip stiffness, hip swelling, knee pain, knee stiffness, knee swelling, shoulder pain, shoulder stiffness, shoulder swelling, wrist pain, wrist stiffness, wrist swelling Integumentary: Denies pruritus, Denies rash Neurological: Denies numbness, Denies weakness Psychiatric: Denies anxiety, Denies depression Physical examination: General: patient is 60 year old lying down in ICU bed and appears to be comfortable and in no acute distress. HEENT: head ia atraumatic normocephalic, Pupils were equal round reactive to light and accommodations , extra ocular muscle movement were intact, mucous membranes of the mouth are moist. Neck: supple no JVP.' Chest: decreased breath sounds at he bases with few ronchi no expiratory wheezes no chest wall tendernes or intercostal retractions. Heart: first heart sound is depressed, second heart sound is normal tachycardic there is BIRD 2/6 located at the left sternal border. Abdomen: soft, mild tenderness to the left lower quadrant positive bowel sounds, no guarding or rebound tenderness, no hepatosplenomegaly. Extremities: there is no edema or calf tenderness DP+ 2 Bilaterally, there is what appears to be a charcot joint in the right foot form arch collapse. Neurologic examination: patient is awake , alert and oriented X 3 CN II-XII are grossly intact, muscle power 4/5 in bilateral upper and lower extremities, deep tendon reflexes were normal. - Labs CBC & Chem 7: 08/10/20 03:02 08/10/20 03:27 Labs: Abnormal Lab Results - Last 24 Hours (Table) 08/09/20 08/09/20 08/10/20 Range/Units 17:27 17:27 03:02 WBC 16.1 H (3.8-10.6) k/uL RBC 3.51 L (4.30-5.90) m/uL Hgb 9.4 L D (13.0-17.5) gm/dL Hct 29.5 L (39.0-53.0) % RDW 17.5 H (11.5-15.5) % Chloride 96 L (98-107) mmol/L Carbon Dioxide (22-30) mmol/L BUN 52 H (9-20) mg/dL Creatinine 3.77 H (0.66-1.25) mg/dL Glucose 153 H (74-99) mg/dL Calcium (8.4-10.2) mg/dL Magnesium 1.5 L (1.6-2.3) mg/dL Total Protein (6.3-8.2) g/dL Albumin (3.5-5.0) g/dL 08/10/20 08/10/20 Range/Units 03:27 03:27 WBC (3.8-10.6) k/uL RBC (4.30-5.90) m/uL Hgb (13.0-17.5) gm/dL Hct (39.0-53.0) % RDW (11.5-15.5) % Chloride (98-107) mmol/L Carbon Dioxide 31 H (22-30) mmol/L BUN 50 H (9-20) mg/dL Creatinine 3.25 H (0.66-1.25) mg/dL Glucose 128 H (74-99) mg/dL Calcium 8.1 L (8.4-10.2) mg/dL Magnesium 1.5 L (1.6-2.3) mg/dL Total Protein 6.1 L (6.3-8.2) g/dL Albumin 2.6 L (3.5-5.0) g/dL Microbiology - Last 24 Hours (Table) 08/08/20 17:14 Urine Culture - Final Urine,Clean Catch 08/08/20 16:18 Blood Culture - Preliminary Blood No Growth after 24 hours Assessment and Plan Plan: 1. Acute hypoxic respiratory failure secondary to hypovolemia from nausea vomiting diarrhea. we will continue with O2 support and IVF along with Levophed drip, we yuliya continue to monitor in the ICU, is following, we will continue with Duoneb qid. 2. Acute kidney injury secondary to acute tubular necosis due to hypotension and fluid loss. Bicarb drip discontinued and Nephrology is following. 3. Anion gap metabolic acidosis and lactic acidosis secondary to renal failure. Off bicarb drip. 4. Hypovolemic shock secondary to dehydration requiring vasopressors in thr form of Levophed. Patient is currently off vasopressor. Continue with IVF as well, and monitoring very closely. 5. SIRS with hypotension, tachycardia and leukocytosis. no identified infection so far, Zosyn has been discontinued, we will obtain sputum cultures, blood cultures and we will check stool for C.Diff infection. 6. Possible pneumonia ruled out by pulmonary medicine, scar tissue. we will continue with O2 support, off antibiotics. 7. Possible gastroenteritis causing nausea vomiting diarrhea rule out C.diff infection, we will check stool for C.Diff Toxins. 8. Rheumatoid arthritis and rheumatoid lung. we will hold off Xeljanz and arava for now. 9. History of empyema with Streptococcus requiring chest tube. 10. Hypertension and hypertensive cardiovascular disease. currently hypotensive we will hold off Losartan and Metoprolol. 11. Hypothyroidism . we will continue with Synthroid 150 mcg orally daily. 12. DVT prophylaxis. we will start Lovenox 30 mg SC daily and bilateral knee high felisha hose. 13. GI prophylaxis. we will continue with Protonix 40 mg IVP daily. 14. Full code. Discharge plan: Most likely home Impression and plan of care have been directed as dictated by the signing physician. Yumiko Brown nurse practitioner acting as scribe for signing physician.
[2020-08-10] MEDS ORDERED: CHOLECALCIFEROL 25 MCG (1000 IU) TABLET PO SCH ×2 (21:00)
[2020-08-11 05:04] LABS: Albumin 2.6 g/dL (3.5-5.0); Calcium 8.5 mg/dL (8.4-10.2); Magnesium 1.8 mg/dL (1.6-2.3); Potassium 3.6 mmol/L (3.5-5.1); Total Bilirubin 0.4 mg/dL (0.2-1.3); Total Protein 6.2 g/dL (6.3-8.2)
[2020-08-11] MEDS: LEVOTHYROXINE 75 MCG TAB PO SCH (06:53)
[2020-08-11] MEDS: MAGNESIUM SULFATE-D5W PMX 1 GM in DEXTROSE/WATER 1 100ML.BAG IVPB SCH ×2 (06:53→08:37)
--- NOTE | 2020-08-11 07:50 | P.PN ---
Subjective Progress Note Date: 08/11/20 60-year-old male patient presented emergency department because of generalized weakness and fatigue. Symptoms over the past few days. He had increased nausea vomiting and diarrhea. He was vomiting for the past 3 days around 4-5 times on a daily basis. He also obviously had a diminished oral intake. He had couple of diarrhea episodes on a daily basis. No abdominal pain. The patient is known to have history of rheumatoid arthritis along with previous history of rheumatoid lung disease in addition to a previous history of loculated empyema requiring chest tube placement back in January 2020. This was attributed to streptococcal pneumonia. He has also history of hypertension, hypothyroidism and previous history of DVT. 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 He was subsequently hospitalized on 07/18/2020 and his coronavirus/Covid 19 testing came back negative. He did have an acute kidney injury and his creatinine was up to 11 and he also had a component of metabolic acidosis. The patient was given IV fluids and pressors and his condition was stabilized. A CAT scan of the chest that was done at that time showed chronic changes in lower lungs related to rheumatoid arthritis. He also had a new consolidation and elbow grams in the left hilar region and new multifocal groundglass organizing pneumonia in the right upper lobe for which she was treated. Doppler of the lower extremity showed no evidence of any DVT.. During this current admission, the patient's creatinine was again up to his BUN is at 72 and this serum bicarbonate 16 and there is an anion gap of 18. His CPK was 36, liver function tests are within normal limits. Lactic acid level of 2.4 and troponins were negative. The repeat Covid 19 testing came back again negative. The chest x-ray shows a component of CHF with cardiomegaly and mild to moderate alveolar and interstitial edema and a small left-sided pleural effusion. His evaluation 08/09/2020, the patient is feeling great. Overnight, he was resuscitated with IV fluids and the patient receiving D5W with sodium bicarbonate at the rate of 150 mL an hour. He is producing urine output adequate and the serum bicarb is at 16. His urine output is in order of 300 mL an hour. The creatinine is down to 5.13. The rest of the electrolytes are essentially within normal limits. Serum bicarb is at 16. Anion gap is at 18. The UA was showing 19 WBCs and urine cultures are still pending for now. His white cell count is down to 17.8 with a hemoglobin of 11.9. No further episodes of nausea or vomiting or diarrhea or abdominal pain. No chest pain. His chest x-ray from today, is showing no acute abnormalities. He has chronic changes and scarring in the right lung base related to previous bouts of pneumonia/empyema. Otherwise, the patient is still requiring pressors and he is running on no low- dose norepinephrine at 0.05 mcg/kg per minute. He is coronavirus/Covid 19 testing came back negative. His lactic acid level is normalized on to 1.1. 08/10/2020, the patient for a follow-up. The patient remains in intensive care unit. The patient has been off pressors over the past 24 hours. IV fluid is running was in the form of D5 water with 3 A of bicarb and the patient serum bicarb progressively improved and currently is up to 31. Based on that, the IV fluids has been switched to normal saline running at a rate of 100 mL an hour. Renal function continues to improve in the creatinine is down to 3.25, and the patient is making adequate urine output in order of 51 5200 mL an hour. White cell count at 16.1. He did have a bout of diarrhea yesterday. Stool for C. diff was sent and it was negative. He is afebrile. No nausea. No emesis. Tolerating diet. No altered mentation. His lactic acid level has also improved. The patient was taken off the IV Levaquin he was kept on IV Zosyn. I think the Zosyn can be also discontinued and there is no clear indication for an underlying sepsis. The patient was quite dehydrated and intravascular volume was quite dehydrated at time of his admission and he was in hypovolemic shock and all these abnormalities improved. 2120, seeing the patient for a follow-up. The patient is awake and alert and sitting up at edge of the head. No signs of any respiratory distress. As mentioned earlier, the patient came in with intravascular volume depletion and acute kidney injury and this was associated related to nausea vomiting and emesis and diarrhea. He was hypovolemic. He was well resuscitated. He was initially given bicarb infusion. Later on he was switched to normal saline today to 100 mL an hour. The patient's creatinine on today's evaluation is down to 1.84, his renal function continues to improve and is producing adequate amount of urine output. Electrolytes are normalized. CBC still pending for now. He is tolerating his diet. Event. No chills. No altered mentation. No other complaints otherwise. I think the patient can be essentially transferred out of the intensive care unit today. The patient's is off antibiotics for now. He is afebrile. He is not having any signs of respiratory distress. Objective - Vital Signs Vital signs: Vital Signs Temp 97.8 F 08/11/20 02:00 Pulse 80 08/11/20 02:00 Resp 20 08/11/20 02:00 BP 118/64 08/11/20 02:00 Pulse Ox 95 08/11/20 02:00 Intake & Output 08/10/20 08/11/20 08/11/20 18:59 06:59 18:59 Intake Total 1340 1300 Output Total 955 1100 Balance 385 200 Intake: IV 1340 1300 0.9 Na Cl @ 100ml/hr 1100 1200 0.9 Na Cl KVO 40 Magnesium Sulfate-D5w Pmx 200 100 1 gm In Dextrose/Water 1 100ml.bag @ 100 mls/hr IVPB Q1H [facility] Rx#: [id number] Output: Urine 955 1100 Other: Voiding Method Indwelling Catheter Indwelling Catheter - Exam GENERAL EXAM: Alert, very pleasant, 60-year-old white male, on room air oxygen , no apparent distress. The patient is currently on room air oxygen. HEAD: Normocephalic/atraumatic. EYES: Normal reaction of pupils, equal size. Conjunctiva pink, sclera white. NOSE: Clear with pink turbinates. THROAT: No erythema or exudates. NECK: No masses, no JVD, no thyroid enlargement, no adenopathy. CHEST: No chest wall deformity. Symmetrical expansion. LUNGS: Equal air entry with some bibasilar crackles, no major wheezing or coughing or rhonchi CVS: Regular rate and rhythm, normal S1 and S2, no gallops, no murmurs, no rubs ABDOMEN: Soft, nontender. No hepatosplenomegaly, normal bowel sounds, no guarding or rigidity. EXTREMITIES: No clubbing, no edema, no cyanosis, 2+ pulses and upper and lower extremities. MUSCULOSKELETAL: Muscle strength and tone normal. SPINE: No scoliosis or deformity SKIN: No rashes CENTRAL NERVOUS SYSTEM: Alert and oriented -3. No focal deficits, tone is normal in all 4 extremities. PSYCHIATRIC: Alert and oriented -3. Appropriate affect. Intact judgment and insight. - Labs CBC & Chem 7: 08/10/20 03:02 08/11/20 03:43 Labs: Abnormal Lab Results - Last 24 Hours (Table) 08/10/20 08/11/20 Range/Units 03:27 03:43 BUN 42 H (9-20) mg/dL Creatinine 1.84 H (0.66-1.25) mg/dL Magnesium 1.5 L (1.6-2.3) mg/dL AST 16 L (17-59) U/L Total Protein 6.2 L (6.3-8.2) g/dL Albumin 2.6 L (3.5-5.0) g/dL Microbiology - Last 24 Hours (Table) 08/08/20 16:18 Blood Culture - Preliminary Blood No Growth after 48 hours Assessment and Plan Plan: 1 acute kidney injury secondary to intravascular volume depletion/dehydration. Previous ultrasound the kidneys showed no evidence of any hydronephrosis. The patient has had a similar episode of acute kidney injury/ATN on previous hospitalization the patient renal function remained recovered with IV fluids. The patient is producing adequate amount of urine output. Acute kidney injury was related to intravascular volume depletion and the patient's creatinine is improving. The metabolic acidosis is also improved. He is to producing adequate amount of urine output and creatinine continues to improve is down to 1.8. IV fluids can be sent down to KVO as the patient is taken adequate amount of oral intake including liquids. 2 acute hypotension, probably secondary to intravascular volume depletion , recovered 3 chronic perihilar pulmonary infiltrates with increased interstitial changes in the lung bases more so on the right, probably a combination of rheumatoid lung and chronic scarring related to a previous pneumonia/empyema 4 previous pneumonia back in December 2019 requiring a chest tube insertion for an empyema 5 acute hypoxic respiratory failure , recovered currently on room air oxygen 6 rheumatoid arthritis with rheumatoid lungs/fibrosis maintained on a combination of Arava and prednisone outpatient basis 7 hypertension 8 hypothyroidism 9 previous history of foot infections requiring of antibiotics 10 previous history of DVT 11 persistent nausea and emesis and diarrhea. Consider underlying C. diff colitis , the testing came back negative for C. diff colitis 12 leukocytosis, white cell count is at 16.1 then the follow-up white cell count is still pending 13 mild chronic normocytic anemia 14 mild lactic acidosis with anion gap metabolic acidosis, recovered Plan Normal saline to KVO and remove the Meraz catheter Monitor urine output and creatinine, improving Resume Synthroid Restart metoprolol a dose of 25 mg by mouth daily and monitor the blood pressure and heart rate Transfer this patient to a medical floor
[2020-08-11] MEDS: NOREPINEPHRINE 32 MG in SODIUM CHLORIDE 0.9% 218 ML IV SCH (08:29)
[2020-08-11] MEDS: PANTOPRAZOLE 40 MG/10 ML VIAL IV SCH (08:37)
--- NOTE | 2020-08-11 08:39 | P.PN ---
Subjective Progress Note Date: 08/11/20 This is a 60-year-old gentleman who was recently treated for pneumonia who came back with complaints of generalized weakness and fatigue. A she was found to be dehydrated. Patient was not eating well because of nausea and also have was having diarrhea. Patient was given IV fluids. Since admission, he is feeling much better. His creatinine is improving. Patient's with initial EKG shows mild ST-T changes. However second EKG showed normal findings. Patient is feeling better without any chest pain or shortness of breath. He may have some underlying pneumonia which is being addressed. Patient is being transferred to telemetry unit. We'll follow. 08/11/2019: This patient was readmitted with the complaints of weakness and fatigue artery recent admission for pneumonia. He was found to be in acute renal failure and dehydration. Patient received IV fluids with improvement of his renal function and also symptoms. He did not have any chest pain. Initial EKG did show some mild ST-T abnormalities, but subsequent EKGs were normal. Echocardiogram wasn't described as showing an ejection fraction of 40-45% with some segmental wall motion defects. However, upon my personal review of the e chocardiogram, it appeared there is some atypical motion of the septum but overall left ankle function is near normal with an ejection fraction about 50 to 55%. Patient is not having any any chest pain and feeling much better. Patient wants to go home. Patient is restarted on metoprolol. I will also put him as baby aspirin. Patient needs further evaluation to rule out underlying ischemic heart disease. It could be done as an outpatient. Follow-up in the office one week after discharge. Objective - Vital Signs Vital signs: Vital Signs Temp 97.8 F 08/11/20 02:00 Pulse 80 08/11/20 02:00 Resp 20 08/11/20 02:00 BP 118/64 08/11/20 02:00 Pulse Ox 95 08/11/20 02:00 Intake & Output 08/10/20 08/11/20 08/11/20 18:59 06:59 18:59 Intake Total 1340 1300 Output Total 955 1100 Balance 385 200 Intake: IV 1340 1300 0.9 Na Cl @ 100ml/hr 1100 1200 0.9 Na Cl KVO 40 Magnesium Sulfate-D5w Pmx 200 100 1 gm In Dextrose/Water 1 100ml.bag @ 100 mls/hr IVPB Q1H [facility] Rx#: [id number] Output: Urine 955 1100 Other: Voiding Method Indwelling Catheter Indwelling Catheter # Bowel Movements 1 - Exam GENERAL EXAM: Patient is alert and oriented and doesn't appear to be in any acute distress HEENT: Normocephalic. Normal reaction of pupils, equal size, normal range of extraocular motion. No erythema or exudates in the throat. NECK: No masses, no nuchal rigidity. CHEST: No chest wall deformity. LUNGS: Equal air entry with no crackles or wheeze. HEART: S1 and S2 normal with no audible mumurs or gallops. Regular rhythm, femorals equal on both sides.. ABDOMEN: No hepatosplenomegaly, normal bowel sounds, no guarding or rigidity. SKIN: No rashes CENTRAL NERVOUS SYSTEM: No focal deficits. EXTREMITIES: No cyanosis, clubbing or edema. - Labs CBC & Chem 7: 08/10/20 03:02 08/11/20 03:43 Labs: Abnormal Lab Results - Last 24 Hours (Table) 08/10/20 08/11/20 Range/Units 03:27 03:43 BUN 42 H (9-20) mg/dL Creatinine 1.84 H (0.66-1.25) mg/dL Magnesium 1.5 L (1.6-2.3) mg/dL AST 16 L (17-59) U/L Total Protein 6.2 L (6.3-8.2) g/dL Albumin 2.6 L (3.5-5.0) g/dL Microbiology - Last 24 Hours (Table) 08/08/20 16:18 Blood Culture - Preliminary Blood No Growth after 48 hours Assessment and Plan (1) Essential hypertension Current Visit: Yes Status: Acute Code(s): I10 - ESSENTIAL (PRIMARY) HYPERTENSION SNOMED Code(s): 00752474 (2) Acute renal failure Current Visit: Yes Status: Acute Code(s): N17.9 - ACUTE KIDNEY FAILURE, UNSPECIFIED SNOMED Code(s): 80881628 (3) Pneumonia Current Visit: Yes Status: Acute Code(s): J18.9 - PNEUMONIA, UNSPECIFIED ORGANISM SNOMED Code(s): 869691033 (4) Dehydration Current Visit: No Status: Acute Code(s): E86.0 - DEHYDRATION SNOMED Code(s): 01329822 (5) Abnormal EKG Current Visit: Yes Status: Acute Code(s): R94.31 - ABNORMAL ELECTROCARDIOGRAM [ECG] [EKG] SNOMED Code(s): 649013902 (6) Abnormal echocardiogram Current Visit: Yes Status: Acute Code(s): R93.1 - ABNORMAL FINDINGS ON DX IMAGING OF HEART AND COR CIRC SNOMED Code(s): 483793858 Plan: Patient is feeling much better. Denies any chest pain or shortness of breath. His echo [place] was described as showing ejection fraction of 45-50% segmental wall motion defects. Upon my personal review. There appears to be some atypical motion of the septum but otherwise function is near normal with ejection fraction about 50%. We'll going to restart him on his metoprolol. We'll hold off on EPI inhibitor. Will also start one baby aspirin. Patient could be evaluated to rule out underlying ischemic heart disease free, as an outpatient. Because of recent acute renal failure, would not consider any invasive cardiology workup at this time. Patient is currently asymptomatic.
[2020-08-11] MEDS: SODIUM CHLORIDE 0.9% 1,000 ML IV SCH ×2 (08:40)
[2020-08-11] MEDS ORDERED: METOPROLOL SUCCINATE (ER) 25 MG TAB.ER.24H PO SCH (09:00)
--- NOTE | 2020-08-11 09:35 | P.PN ---
Subjective Patient is seen in follow for acute kidney injury. Renal function improving. Nonoliguric. Diarrhea resolved. C. diff negative. Maintained on IV fluids. No active complaints. Vital signs are stable. General: The patient appeared well nourished and normally developed. HEENT: Head exam is unremarkable. Neck is without jugular venous distension. LUNGS: Breath sounds decreased. HEART: Rate and Rhythm are regular. ABDOMEN: Soft, nontender. EXTREMITITES: No edema. Objective - Vital Signs Vital signs: Vital Signs Temp 97.4 F L 08/11/20 08:00 Pulse 98 08/11/20 08:00 Resp 16 08/11/20 08:00 BP 111/68 08/11/20 08:00 Pulse Ox 94 L 08/11/20 08:00 Intake & Output 08/10/20 08/11/20 08/11/20 18:59 06:59 18:59 Intake Total 1340 1300 Output Total 955 1100 Balance 385 200 Intake: IV 1340 1300 0.9 Na Cl @ 100ml/hr 1100 1200 0.9 Na Cl KVO 40 Magnesium Sulfate-D5w Pmx 200 100 1 gm In Dextrose/Water 1 100ml.bag @ 100 mls/hr IVPB Q1H [facility] Rx#: [id number] Output: Urine 955 1100 Other: Voiding Method Indwelling Catheter Indwelling Catheter # Bowel Movements 1 - Labs CBC & Chem 7: 08/10/20 03:02 08/11/20 03:43 Labs: Abnormal Lab Results - Last 24 Hours (Table) 08/10/20 08/11/20 Range/Units 03:27 03:43 BUN 42 H (9-20) mg/dL Creatinine 1.84 H (0.66-1.25) mg/dL Magnesium 1.5 L (1.6-2.3) mg/dL AST 16 L (17-59) U/L Total Protein 6.2 L (6.3-8.2) g/dL Albumin 2.6 L (3.5-5.0) g/dL Microbiology - Last 24 Hours (Table) 08/08/20 16:18 Blood Culture - Preliminary Blood No Growth after 48 hours Assessment and Plan Plan: Assessment: 1. Acute kidney injury mostly prerenal secondary to hypovolemia from vomiting, diarrhea and Hyzaar. Creatinine 7.63 on admission and is 1.84 today. Baseline creatinine near 1 from January 2020. No hydronephrosis noted on kidney ultrasound. 2. Metabolic acidosis secondary to acute kidney injury and diarrhea. Resolved. Status post bicarb drip. 3. Shock status post Levophed. 4. History of rheumatoid arthritis. 5. Vomiting and diarrhea. Possibly gastroenteritis. C. diff negative. Better. 6. Hypomagnesemia secondary to GI losses and poor intake. Improved post replacement. Plan: Decrease normal saline to 70 mL an hour. Avoid nephrotoxins. Continue to monitor renal function and urine output. Anticipate discharge soon. Follow up outpatient in 1-2 weeks.
--- NOTE | 2020-08-11 12:10 | CDI ---
Documentation Clarification Form Date: 08/11/2020 11:32:56 AM From: Shell Goldsmith RN CCDS Admit Date: 08/08/2020 03:44:00 PM Patient Name: Lokesh Zee Visit Number: [id number] Discharge Date: ATTENTION: The Clinical Documentation Specialists (CDI) and [facility] Coding Staff appreciate your assistance in clarifying documentation. Please respond to the clarification below the line at the bottom and electronically sign. The CDI & [facility] Coding staff will review the response and follow-up if needed. Please note: Queries are made part of the Legal Health Record. If you have any questions, please contact the author of this message via ITS. Dr. Minal Marie Septic Shock is documented in the ED Note 08/08 History/Risk Factors: 60-year-old male presents to the ED with generalized weakness, decreased oral intake, nausea, vomiting and diarrhea. Recent admission to hospital for lung infection. Medical history: Rheumatoid lungs with chronic interstitial disease. RA and HTN. Clinical Indicators: Admitting Diagnosis: Acute hypoxic respiratory failure; IKE secondary to ATN and Hypovolemic shock. 08/08 Labs: Wbc 20.7; Neutrophils 14.5; Cr 7.63; Lactic acid 2; UA Leukocyte esterase small Wbc 19. 08/09 Urine culture: No growth after 18 hours 08/10 Blood culture: No growth after 48 hours 08/09: C. difficile Negative 08/08 Documented in the H&P and in Internal Medicine Progress notes 08/09 & 08/10 SIRS with hypotension, tachycardia and leukocytosis. no identified infection so far, we will continue with Levaquin and Zosyn for now, we will obtain sputum cultures, blood cultures and we will check stool for C. Diff infection. 08/09 Documented in the internal medicine progress note: Sputum culture has not been obtained. 08/08 CXR: Cardiomegaly with patchy mid and lower lung opacities with small left effusion. 08/09 CXR: There are likely chronic pleural parenchymal changes. Treatment: Antibiotics: 08/08 Levaquin IVPB x 1; Piperacillin IVPB x1; 08/09 Piperacillin IVPB Q12HR d/c 08/10. IV Bolus: 08/08 0.9NS 3.5 L bolus Other: 08/08 Norepinephrine ivpb; In your professional opinion, please clarify if these findings signify one of the following conditions, whether the condition is POA, and cause, if known: Sepsis ruled out SIRS, without underlying infectious process poa Sepsis poa Other, please specify Unable to determine SIRS Criteria (2 or more of the following may indicate SIRS): -Temperature < 96.8F (36C) or > 101.0F (38.3C) -Heart Rate > 90 bpm -Respiratory Rate > 20 breaths/min or PaCO2 < 32 mmHg -White Blood Cell Count > 12,000 or < 4,000 cells/mm3 or > 10% bands -Lactate >2.0 mmol/L (>4.0 is equivalent to septic shock) (Last Revision: October 2017) Sepsis with possible gram negative pneumonia present on admission MTDD
--- NOTE | 2020-08-11 14:10 | P.DS ---
Providers Date of admission: 08/08/20 15:44 Expected date of discharge: 08/11/20 Attending physician: Minal Marie Consults: 08/08/20 15:44 Consult Physician Stat Consulting Provider: Marylu Gamino Consult Reason/Comments: critical care Do you want consulting provider notified?: Yes 08/08/20 15:45 Consult Physician Urgent Consulting Provider: Casa Cobian Consult Reason/Comments: arf Do you want consulting provider notified?: Yes 08/08/20 16:10 Consult Physician Urgent Consulting Provider: Artemio Wiggins Consult Reason/Comments: chest pain, ekg changes Do you want consulting provider notified?: Yes Primary care physician: Minal Marie [facility] Course: This is a 60-year-old male patient requesting my service with past medical history of rheumatoid arthritis on Arava that was diagnosed when he was 37 year old initially was started on Methotrexate that he could not tolerate then placed on Embrel but he developed side effects and finally was tried on Humira injection but he developed neurologic sided effects and was hospitaized at [facility] for quiet some time, rheumatoid lung disease, previous history of loculated empyema with chest tube placement in January 2020, hypertension, hypothyroidism, history of DVT, remote history of tobacco use and dependence, was recently seen by Dr. Dutton and he was placed on two antibiotics and 2 steroids and he was feeling better that wa about 2 weeks ago Patient complains of generalized weakness and tingling going on for a few days along with nausea, vomiting and diarrhea. He has been unable to keep any food down. He denies having any abdominal pain. He complains of feeling fatigued and achy all over. Patient was found to be afebrile but mildly tachycardic in the low 100s, hypotensive with blood pressure 69/43, pulse ox 73% on room air. Patient received 3 L of fluid and Decadron in the emergency center. A central line was placed and patient was started on norepinephrine drip. EKG was sinus tachycardia with incomplete right bundle branch block. WBC 20.7, hemoglobin 10.6, platelet count 3 and 45. Sodium 134, potassium 3.6, chloride 100, CO2 16, BUN 72 and creatinine 7.63. Blood sugar 106. CK 36. Liver function tests normal. Lactic acid 2.4. Troponin negative. Coronavirus PCR not detected. Chest x-ray reveals cardiomegaly with patchy mid and lower lung bases with small left effusion. Consider pneumonia or sequela of CHF. Patient received IV Levaquin and Zosyn in the emergency center. He was admitted to the intensive care unit and started on a bicarb drip and continued on vasopressors. Consult with pulmonary medicine, nephrology and cardiology. 08/09: Patient remains in the intensive care unit. He states that he feels 100% better. He has had good urine output. He states he has had some nausea with eating. Stools this morning were a little loose. Patient has been on a bicarb drip currently off levo fed. He states his foot pain is improved from . Sputum culture has not been obtained. WBC 17.8, hemoglobin 11.9, platelet count 335. Sodium 136, but isn't 4.3, chloride 102, CO2 16, BUN 62 and creatinine 5.13. Blood sugar 266. Alkaline phosphatase 133. 08/10: Patient remains in intensive care unit but has been cleared for transfer to the cardiac stepdown unit. Patient verbalizes that he thinks he is ready to go home. Diarrhea has resolved. He denies any nausea vomiting. He is eating well but appetite is only okay. He has had good urine output. Pulse ox is 95% on room air. He has been afebrile, heart rate 86, blood pressure 106/80. Repeat blood work reveals WBC 16.1, hemoglobin 9.4, platelet count 289. CO2 31, BUN 15 creatinine 3.25. Blood sugar 128. C. difficile toxin negative. Patient is off vasopressor, off sodium bicarb. 08/11: Patient is seen today on the [facility] floor. He has been afebrile, heart rate 90, blood pressure 112/71, pulse ox 94% on room air. Repeat blood work reveals normal electrolytes, BUN 42 and creatinine 1.84. Urine culture has been finalized with no growth. Blood culture no growth at 48 hours. Patient states he is feeling well. No diarrhea. No cough or chest pain. Nephrology has decreased IV fluids to 70 miles per hour. Meraz catheter to be removed today. Patient continued to be monitored for I&O. Lopressor has been restarted by pulmonary medicine. Dr. Hui is reviewed echocardiogram with ejection fraction of about 50%. Metoprolol resumed and hold Jeff inhibitor. Patient also will be started on a baby aspirin. Plan is to evaluate for ischemic heart dis ease as outpatient. Patient is anxious to be discharged home and requesting to leave. Renal function is steadily improving. We'll plan for discharge home today with follow-up in the office next week. She will be discharged home in stable condition. Discharge diagnoses: 1. Acute hypoxic respiratory failure secondary to hypovolemia from nausea vomiting diarrhea. 2. Acute kidney injury secondary to acute tubular necosis due to hypotension and fluid loss. 3. Anion gap metabolic acidosis and lactic acidosis secondary to renal failure. 4. Hypovolemic shock secondary to dehydration requiring vasopressors in the form of Levophed. 5. SIRS with hypotension, tachycardia and leukocytosis. 6. Possible pneumonia ruled out by pulmonary medicine, scar tissue. 7. Possible gastroenteritis causing nausea vomiting diarrhea ruled out C.diff infection. 8. Rheumatoid arthritis and rheumatoid lung. 9. History of empyema with Streptococcus requiring chest tube. 10. Hypertension and hypertensive cardiovascular disease. 11. Hypothyroidism. Discharge plan: Most likely home Impression and plan of care have been directed as dictated by the signing physician. Yumiko Brown nurse practitioner acting as scribe for signing physician. Patient Condition at Discharge: Good Plan - Discharge Summary New Discharge Prescriptions: New Aspirin 81 mg PO HS chew Metoprolol Succinate (ER) [Toprol XL] 25 mg PO DAILY #30 tab.er.24h Continue Levothyroxine Sodium [Synthroid] 150 mcg PO DAILY Albuterol Inhaler [Ventolin Hfa Inhaler] 2 puff INHALATION RT-QID PRN PRN Reason: Shortness Of Breath Cholecalciferol [Vitamin D3 (25 Mcg = 1000 Iu)] 2,000 unit PO HS Ipratropium-Albuterol Nebulize [Duoneb 0.5 mg-3 mg/3 ml Soln] 3 ml INHALATION RT-QID PRN PRN Reason: Shortness Of Breath Ascorbic Acid [Vitamin C] 2,000 mg PO HS Discontinued Losartan-Hctz 50-12.5 mg [Hyzaar 50-12.5] 1 tab PO DAILY Metoprolol Tartrate [Lopressor] 50 mg PO HS Furosemide [Lasix] 20 mg PO DAILY PRN PRN Reason: Edema Discharge Medication List Levothyroxine Sodium [Synthroid] 150 mcg PO DAILY 10/17/16 [History] Albuterol Inhaler [Ventolin Hfa Inhaler] 2 puff INHALATION RT-QID PRN 12/30/19 [History] Ascorbic Acid [Vitamin C] 2,000 mg PO HS 07/13/20 [History] Cholecalciferol [Vitamin D3 (25 Mcg = 1000 Iu)] 2,000 unit PO HS 07/13/20 [History] Ipratropium-Albuterol Nebulize [Duoneb 0.5 mg-3 mg/3 ml Soln] 3 ml INHALATION RT-QID PRN 07/13/20 [History] Aspirin 81 mg PO HS chew 08/11/20 [Rx] Metoprolol Succinate (ER) [Toprol XL] 25 mg PO DAILY #30 tab.er.24h 08/11/20 [Rx] Follow up Appointment(s)/Referral(s): Shankar Carias MD [STAFF PHYSICIAN] - 2 Weeks Minal Marie MD [Primary Care Provider] - 08/17/20 12:45 pm (Please bring with you a list of your medications and dosages) Casa Cobian DO [STAFF PHYSICIAN] - 1 Week Patient Instructions/Handouts: Acute Kidney Injury (DC) Discharge Disposition: HOME SELF-CARE
[2020-08-11 15:23] VITALS: BP 110/69; PULSE 74; RESP 16; TEMP 97.4
[2020-08-11] MEDS ORDERED: ASPIRIN 81 MG PO SCH (21:00)
--- NOTE | 2020-08-18 08:30 | CDI ---
Documentation Clarification Form Date: 08/18/2020 08:25:47 AM From: Shell Goldsmith RN CCDS Admit Date: 08/08/2020 03:44:00 PM Patient Name: Lokesh Zee Visit Number: [id number] Discharge Date: 08/11/2020 02:57:00 PM ATTENTION: The Clinical Documentation Specialists (CDI) and [facility] Coding Staff appreciate your assistance in clarifying documentation. Please respond to the clarification below the line at the bottom and electronically sign. The CDI & [facility] Coding staff will review the response and follow-up if needed. Please note: Queries are made part of the Legal Health Record. If you have any questions, please contact the author of this message via ITS. Dr. Minal Marie The patient presented with the general weakness, nausea, vomiting and decreased oral intake for approximately three days. History/Risk Factors: 60-year-old male who was recent admission with a lung infection. Was prescribed two oral antibiotics by Pulmonology . Medical history: Rheumatoid lungs with chronic interstitial disease, RA and HTN Clinical Indicators: Admitting Diagnosis: Acute hypoxic respiratory failure; IKE secondary to ATN; Hypovolemic shock and possible gastroenteritis 08/08 VSS: B/P 69/43; HR 109; Temp 98.5 F Oral; RR 18; SpO2 95% 4L nasal cannula 08/08 Labs: Wbc 20.7; Neutrophils 14.5; Cr 7.63; Lactic acid 2; UA Leukocyte esterase small Wbc 19. 08/09: C. difficile Negative Treatment: Antibiotics: 08/08 Levaquin IVPB x 1; Piperacillin IVPB x1; 08/09 Piperacillin IVPB Q12HR d/c 08/10. IV Bolus: 08/08 0.9NS 3.5 L bolus Other: 08/08 Norepinephrine ivpb; In your professional opinion, can you please clarify gastroenteritis? Infectious gastroenteritis bacterial Infectious gastroenteritis viral Other gastroenteritis (please specify) Other, (please specify) Unable to determine (Last Revision: October 2017) Other gastroenteritis unable to determine the cause MTDD
== END 2020-08-11 14:57 | disposition home or self-care (01) | DRG 871 ==
LOC: EC 13:04 → 2SICU 15:44 → 4SSUR 08-11 08:21
PROVIDERS: ADMIT Internal Medicine; ATTEND Internal Medicine
PROC: 02HV33Z Insertion of Infusion Device into Superior Vena Cava, Percutaneous Approach (ICD-10-PCS; principal; 2020-08-08)
PROC: 3E033XZ Introduction of Vasopressor into Peripheral Vein, Percutaneous Approach (ICD-10-PCS; principal; 2020-08-08)
DX: A41.50 Gram-negative sepsis, unspecified (principal); J15.6 Pneumonia due to other Gram-negative bacteria; R65.21 Severe sepsis with septic shock; N17.0 Acute kidney failure with tubular necrosis; J96.01 Acute respiratory failure with hypoxia; R57.1 Hypovolemic shock; E87.2 Acidosis; Z87.891 Personal history of nicotine dependence; E03.9 Hypothyroidism, unspecified; Z20.822 Contact with and (suspected) exposure to COVID-19; E78.5 Hyperlipidemia, unspecified; E83.42 Hypomagnesemia; E86.0 Dehydration; E86.1 Hypovolemia; I11.0 Hypertensive heart disease with heart failure; I45.10 Unspecified right bundle-branch block; I50.9 Heart failure, unspecified; K52.9 Noninfective gastroenteritis and colitis, unspecified; J98.4 Other disorders of lung; M05.10 Rheumatoid lung disease with rheumatoid arthritis of unspecified site; J84.89 Other specified interstitial pulmonary diseases; Z79.52 Long term (current) use of systemic steroids; Z79.890 Hormone replacement therapy; Z86.718 Personal history of other venous thrombosis and embolism; Z87.01 Personal history of pneumonia (recurrent); Z87.442 Personal history of urinary calculi; Z80.1 Family history of malignant neoplasm of trachea, bronchus and lung; Z90.89 Acquired absence of other organs
CPT/HCPCS: 36415; 36556; 71045; 76770; 80048; 80053; 81001; 82550; 83605; 83735; 84100; 84484; 85025; 85027; 85610; 85730; 87040; 87070; 87086; 87205; 87324; 87635; 93005; 93306; 96361; 96365; 96368; 96374; 96375; 99291

== ENCOUNTER 2020-08-19 08:52 | Inpatient (IN) | payer BC ==
--- NOTE | 2020-08-19 09:37 | ED ---
General Adult HPI - General Chief complaint: Shortness of Breath Stated complaint: SOB Time Seen by Provider: 08/19/20 09:07 Source: patient Mode of arrival: wheelchair Limitations: physical limitation - History of Present Illness Initial comments: Dictation was produced using [employer] dictation software. please excuse any grammatical, word or spelling errors. 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 Patient was recently admitted to the hospital on August 08. Patient has a history of rheumatoid lung. He is admitted to the intensive care unit for hypertension, hypoxia. He was admitted and placed on vasopressors. While being admitted to the hospital he had dialysis once. According to discharge summary there is concern that patient had hypoxic respiratory failure to hypovolemia from fluid water loss. Patient states he went to follow-up with the paint brush maker as a follow-up appointment. Told the paint brush maker that he'll check and his oxygen levels is found to be low in the 70s. The ROS documented in this emergency department record has been reviewed and confirmed by me. Those systems with pertinent positive or negative responses have been documented in the HPI. All other systems are other negative and/or noncontributory. PHYSICAL EXAM: General Impression: Alert and oriented x3, not in acute distress HEENT: Normocephalic atraumatic, extra-ocular movements intact, pupils equal and reactive to light bilaterally, mucous membranes moist. 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 He has a history of rheumatoid lung and was recently admitted to the intensive care unit for hypovolemia secondary to dehydration and fluid water loss. Case was discussed with Dr. ochoa who is willing to accept patients care for admission. He did request obtaining a computed tomography scan of the chest and the abdomen and pelvis. Limited views that can see the lungs do show possible empyema. CT of the abdomen and pelvis shows no acute processes. Computed tomography scan of the chest angiography shows chronic parenchymal changes from known rheumatoid lung disease. Does appear to be underlying acute pulmonary process that shows that in comparison to most recent CT that images have not resolved. Laboratory evaluation obtained. Leukocytosis of 19.9, no troubles 15.0. Coag panels INR 1.5. Arterial blood gas seems to be reasonable without any significant hypoxia. PO2 of 80 on FiO2 of 28. Lactic acidosis 3.7. Coronavirus is negative. Patient placed on broad spectrum antibiotics. Patient be admitted. Per hospitalist requests patient will have nephrology, infectious disease, pulmonology on consult. EKG interpretation: Ventricular rate 130, sinus tachycardia, NH interval 142, QR S 90, QTC 582. No NH prolongation, no ST or T-wave changes noted. - Related Data Home Medications Medication Instructions Recorded Confirmed Levothyroxine Sodium [Synthroid] 150 mcg PO DAILY 10/17/16 08/19/20 Albuterol Inhaler [Ventolin Hfa 2 puff INHALATION RT-QID PRN 12/30/19 08/19/20 Inhaler] Ascorbic Acid [Vitamin C] 2,000 mg PO HS 07/13/20 08/19/20 Cholecalciferol [Vitamin D3 (25 2,000 unit PO HS 07/13/20 08/19/20 Mcg = 1000 Iu)] Ipratropium-Albuterol Nebulize 3 ml INHALATION RT-QID PRN 07/13/20 08/19/20 [Duoneb 0.5 mg-3 mg/3 ml Soln] Levofloxacin [Levaquin] 250 mg PO DAILY 08/19/20 08/19/20 Ondansetron [Zofran] 4 mg PO QID PRN 08/19/20 08/19/20 Previous Rx's Medication Instructions Recorded Aspirin 81 mg PO HS chew 08/11/20 Metoprolol Succinate (ER) [Toprol 25 mg PO DAILY #30 tab.er.24h 08/11/20 XL] Allergies Allergy/AdvReac Type Severity Reaction Status Date / Time No Known Allergies Allergy Verified 01/29/21 10:37 Review of Systems ROS Statement: Those systems with pertinent positive or pertinent negative responses have been documented in the HPI. ROS Other: All systems not noted in ROS Statement are negative. Past Medical History Past Medical History: Deep Vein Thrombosis (DVT), GERD/Reflux, Hyperlipidemia, Hypertension, Neurologic Disorder, Rheumatoid Arthritis (RA), Thyroid Disorder Additional Past Medical History / Comment(s): Rheumatoid arthritis, rheumatoid lungs with chronic interstitial lung disease maintained on Arava and chronic steroids, previous history of pneumonia/empyema with Streptococcus and the patient required chest tube drainage - January 2020, retention, hypothyroidism, previous history of foot infections requiring PICC line insertion, history of DVT, nephrolithiasis, History of Any Multi-Drug Resistant Organisms: None Reported Past Surgical History: Back Surgery, Tonsillectomy Additional Past Surgical History / Comment(s): Right foot surgery, repair herniated disc, plate removed rt foot. [facility] kim,bronchoscopy X4, right foot surgery with plate placement due to arch collapse folowed by removal due to infection Past Anesthesia/Blood Transfusion Reactions: Previous Problems w/ Anesthesia Additional Past Anesthesia/Blood Transfusion Reaction / Comment(s): slow to awaken x1. Past Psychological History: No Psychological Hx Reported Smoking Status: Former smoker Past Alcohol Use History: Rare Past Drug Use History: None Reported - Past Family History Mother Family Medical History: Cancer (Mother at the age 75 from lung ancer with brain mets.) Additional Family Medical History / Comment(s): lung with mets brain Father Family Medical History: No Reported History (Father at the age of 78 [facility] suddenly.) Additional Family Medical History / Comment(s): states, "he just ." Brother(s) Family Medical History: No Reported History (patient has one brother with no major health issues.) Sister(s) Family Medical History: No Reported History (Patient has one sister with no major health issues.) Additional Family Medical History / Comment(s): Patient has 2 step daughters. General Exam Limitations: physical limitation Course Vital Signs 08/19/20 08/19/20 08/19/20 09:02 09:30 10:00 Temperature 98.9 F Pulse Rate 118 H 129 H 126 H Respiratory 22 28 H 24 Rate Blood Pressure 123/106 131/104 144/106 O2 Sat by Pulse 93 L 93 L 92 L Oximetry Medical Decision Making - Lab Data Result diagrams: 08/19/20 09:26 08/19/20 09:26 Lab Results 08/19/20 08/19/20 08/19/20 Range/Units 09:26 09:26 09:26 WBC 19.1 H (3.8-10.6) k/uL RBC 4.40 (4.30-5.90) m/uL Hgb 12.3 L (13.0-17.5) gm/dL Hct 38.5 L (39.0-53.0) % MCV 87.7 (80.0-100.0) fL MCH 27.9 (25.0-35.0) pg MCHC 31.8 (31.0-37.0) g/dL RDW 17.2 H (11.5-15.5) % Plt Count 316 (150-450) k/uL MPV 9.0 Neutrophils % 78 % Lymphocytes % 10 % Monocytes % 5 % Eosinophils % 4 % Basophils % 1 % Neutrophils # 15.0 H (1.3-7.7) k/uL Lymphocytes # 2.0 (1.0-4.8) k/uL Monocytes # 1.0 (0-1.0) k/uL Eosinophils # 0.8 H (0-0.7) k/uL Basophils # 0.1 (0-0.2) k/uL Manual Slide Review Performed Polychromasia Present Hypochromasia Marked Anisocytosis Slight PT 15.3 H (9.0-12.0) sec INR 1.5 H (<1.2) APTT 27.0 (22.0-30.0) sec Sample Site ABG pH (7.35-7.45) ABG pCO2 (35-45) mmHg ABG pO2 (83-108) mmHg ABG HCO3 (21-25) mmol/L ABG Total CO2 (19-24) mmol/L ABG O2 Saturation (94-97) % ABG Base Excess mmol/L Atilio Test VBG pH (7.31-7.41) VBG pCO2 (37-51) mmHg VBG HCO3 (24-28) mmol/L FiO2 % Sodium 135 L (137-145) mmol/L Potassium 3.9 (3.5-5.1) mmol/L Chloride 102 (98-107) mmol/L Carbon Dioxide 19 L (22-30) mmol/L Anion Gap 14 mmol/L BUN 14 (9-20) mg/dL Creatinine 1.32 H (0.66-1.25) mg/dL Est GFR (CKD-EPI)AfAm 68 (>60 ml/min/1.73 sqM) Est GFR (CKD-EPI)NonAf 59 (>60 ml/min/1.73 sqM) Glucose 111 H (74-99) mg/dL Plasma Lactic Acid Caden (0.7-2.0) mmol/L Calcium 9.3 (8.4-10.2) mg/dL Magnesium 1.6 (1.6-2.3) mg/dL Total Bilirubin 1.0 (0.2-1.3) mg/dL AST 29 (17-59) U/L ALT 18 (4-49) U/L Alkaline Phosphatase 190 H (38-126) U/L Troponin I (0.000-0.034) ng/mL Total Protein 7.3 (6.3-8.2) g/dL Albumin 3.1 L (3.5-5.0) g/dL Coronavirus (PCR) (Not Detectd) 08/19/20 08/19/20 08/19/20 Range/Units 09:26 09:26 09:26 WBC (3.8-10.6) k/uL RBC (4.30-5.90) m/uL Hgb (13.0-17.5) gm/dL Hct (39.0-53.0) % MCV (80.0-100.0) fL MCH (25.0-35.0) pg MCHC (31.0-37.0) g/dL RDW (11.5-15.5) % Plt Count (150-450) k/uL MPV Neutrophils % % Lymphocytes % % Monocytes % % Eosinophils % % Basophils % % Neutrophils # (1.3-7.7) k/uL Lymphocytes # (1.0-4.8) k/uL Monocytes # (0-1.0) k/uL Eosinophils # (0-0.7) k/uL Basophils # (0-0.2) k/uL Manual Slide Review Polychromasia Hypochromasia Anisocytosis PT (9.0-12.0) sec INR (<1.2) APTT (22.0-30.0) sec Sample Site ABG pH (7.35-7.45) ABG pCO2 (35-45) mmHg ABG pO2 (83-108) mmHg ABG HCO3 (21-25) mmol/L ABG Total CO2 (19-24) mmol/L ABG O2 Saturation (94-97) % ABG Base Excess mmol/L Atilio Test VBG pH 7.38 (7.31-7.41) VBG pCO2 36 L (37-51) mmHg VBG HCO3 21 L (24-28) mmol/L FiO2 % Sodium (137-145) mmol/L Potassium (3.5-5.1) mmol/L Chloride (98-107) mmol/L Carbon Dioxide (22-30) mmol/L Anion Gap mmol/L BUN (9-20) mg/dL Creatinine (0.66-1.25) mg/dL Est GFR (CKD-EPI)AfAm (>60 ml/min/1.73 sqM) Est GFR (CKD-EPI)NonAf (>60 ml/min/1.73 sqM) Glucose (74-99) mg/dL Plasma Lactic Acid Caden 3.7 H* (0.7-2.0) mmol/L Calcium (8.4-10.2) mg/dL Magnesium (1.6-2.3) mg/dL Total Bilirubin (0.2-1.3) mg/dL AST (17-59) U/L ALT (4-49) U/L Alkaline Phosphatase (38-126) U/L Troponin I <0.012 (0.000-0.034) ng/mL Total Protein (6.3-8.2) g/dL Albumin (3.5-5.0) g/dL Coronavirus (PCR) (Not Detectd) 08/19/20 08/19/20 Range/Units 10:31 10:52 WBC (3.8-10.6) k/uL RBC (4.30-5.90) m/uL Hgb (13.0-17.5) gm/dL Hct (39.0-53.0) % MCV (80.0-100.0) fL MCH (25.0-35.0) pg MCHC (31.0-37.0) g/dL RDW (11.5-15.5) % Plt Count (150-450) k/uL MPV Neutrophils % % Lymphocytes % % Monocytes % % Eosinophils % % Basophils % % Neutrophils # (1.3-7.7) k/uL Lymphocytes # (1.0-4.8) k/uL Monocytes # (0-1.0) k/uL Eosinophils # (0-0.7) k/uL Basophils # (0-0.2) k/uL Manual Slide Review Polychromasia Hypochromasia Anisocytosis PT (9.0-12.0) sec INR (<1.2) APTT (22.0-30.0) sec Sample Site LRAD ABG pH 7.42 (7.35-7.45) ABG pCO2 36 (35-45) mmHg ABG pO2 80 L (83-108) mmHg ABG HCO3 23 (21-25) mmol/L ABG Total CO2 24 (19-24) mmol/L ABG O2 Saturation 96.2 (94-97) % ABG Base Excess -1.3 mmol/L Atilio Test Yes VBG pH (7.31-7.41) VBG pCO2 (37-51) mmHg VBG HCO3 (24-28) mmol/L FiO2 28 % Sodium (137-145) mmol/L Potassium (3.5-5.1) mmol/L Chloride (98-107) mmol/L Carbon Dioxide (22-30) mmol/L Anion Gap mmol/L BUN (9-20) mg/dL Creatinine (0.66-1.25) mg/dL Est GFR (CKD-EPI)AfAm (>60 ml/min/1.73 sqM) Est GFR (CKD-EPI)NonAf (>60 ml/min/1.73 sqM) Glucose (74-99) mg/dL Plasma Lactic Acid Caden (0.7-2.0) mmol/L Calcium (8.4-10.2) mg/dL Magnesium (1.6-2.3) mg/dL Total Bilirubin (0.2-1.3) mg/dL AST (17-59) U/L ALT (4-49) U/L Alkaline Phosphatase (38-126) U/L Troponin I (0.000-0.034) ng/mL Total Protein (6.3-8.2) g/dL Albumin (3.5-5.0) g/dL Coronavirus (PCR) Not Detected (Not Detectd) Disposition Clinical Impression: Lung infection Disposition: ADMITTED IP TO THIS HOSP Condition: Fair Referrals: Minal Marie MD [Primary Care Provider] - 1-2 days Decision Time: 12:02
[2020-08-19] MEDS ORDERED: SODIUM CHLORIDE 0.9% 1,000 ML IV STA (09:38)
[2020-08-19 10:19] LABS: VBG PH 7.38 (7.31-7.41)
[2020-08-19 10:24] LABS: INR 1.5 (<1.2); Prothrombin Time 15.3 sec (9.0-12.0)
[2020-08-19 10:25] LABS: Anisocytosis Slight; Basophils # (A) 0.1 k/uL (0-0.2); Basophils % (A) 1 %; Eosinophils # (A) 0.8 k/uL (0-0.7); Eosinophils % (A) 4 %; HCT 38.5 % (39.0-53.0); HGB 12.3 gm/dL (13.0-17.5); Hypochromasia Marked; Lymphocytes % (A) 10 %; MCH 27.9 pg (25.0-35.0); MCHC 31.8 g/dL (31.0-37.0); MCV 87.7 fL (80.0-100.0); Monocytes % (A) 5 %; Neutrophils % (A) 78 %; Platelet Count 316 k/uL (150-450); RDW 17.2 % (11.5-15.5); WBC 19.1 k/uL (3.8-10.6)
[2020-08-19 10:26] LABS: Albumin 3.1 g/dL (3.5-5.0); Calcium 9.3 mg/dL (8.4-10.2); Magnesium 1.6 mg/dL (1.6-2.3); Potassium 3.9 mmol/L (3.5-5.1); Total Protein 7.3 g/dL (6.3-8.2)
--- NOTE | 2020-08-19 10:39 | XR ---
EXAMINATION TYPE: XR chest 1V portable DATE OF EXAM: 08/19/2020 HISTORY: Shortness of breath. COMPARISON: 08/09/2020 TECHNIQUE: Single view of the chest is submitted. FINDINGS: Demonstrated are scattered senescent parenchymal change. Perihilar and basilar infiltrates are noted without significant change. The heart is stable. Hilar and mediastinal structures are within normal limits. Degenerative changes are seen of the dorsal spine. IMPRESSION: 1. Perihilar and basilar infiltrates are noted without significant change.
[2020-08-19 10:45] LABS: ABG Base Excess -1.3 mmol/L; ABG HCO3 23 mmol/L (21-25); ABG Oxygen Saturation 96.2 % (94-97); ABG PCO2 36 mmHg (35-45); ABG PH 7.42 (7.35-7.45); ABG PO2 80 mmHg (83-108); ABG TCO2 24 mmol/L (19-24); Allen Test Performed? Yes
[2020-08-19 10:56] LABS: Polychromasia Present
--- NOTE | 2020-08-19 11:35 | CT ---
EXAMINATION TYPE: CT angio chest DATE OF EXAM: 08/19/2020 11:16 AM COMPARISON: CT chest July 19, 2020 and older studies HISTORY: Elevated d-dimer, abdominal pain. History of rheumatoid lung disease. CT DLP: 481 mGycm Automated exposure control for dose reduction was used. CONTRAST: CTA scan of the thorax is performed with IV Contrast, patient injected with 100 mL of Isovue 370, pul monary embolism protocol. MIP images are created and reviewed. FINDINGS: LUNGS: Thick-walled pleural cavities posteriorly in the lower lungs is redemonstrated with left-sided air-fluid level comment degree of left-sided pleural fluid diminished from most recent CT. There is associated compressive atelectasis and/or chronic consolidation. Persistent azygos lobe/fissure. Gurwinder t multifocal areas of reticulonodular opacity in the upper lungs remain present, slight nodularity le ft upper lobe again seen. Areas of focal consolidation improved from most recent study though some re sidual areas of scarring and scar like consolidation remain present. MEDIASTINUM: There is satisfactory enhancement of the pulmonary artery and its branches, there is no CT evidence for pulmonary embolism. No ascending aortic aneurysm or dissection. Persistent abnormal enlarged bilateral hilar lymph nodes.. Tiny pericardial effusion is seen. Mild cardiomegaly. Coronary artery calcification redemonstrated. OTHER: Small hiatal hernia. IMPRESSION: No CT evidence for acute pulmonary embolism. Chronic parenchymal changes from known rheum atoid lung disease redemonstrated. Underlying acute pulmonary process is possible in the upper lungs, though findings are improved from most recent CT they have not resolved.
--- NOTE | 2020-08-19 11:43 | CT ---
EXAMINATION TYPE: CT abdomen pelvis w con DATE OF EXAM: 08/19/2020 COMPARISON: CT 07/31/2016 HISTORY: Elevated d-dimer, abdominal pain CT DLP: 1227.9 mGycm Automated exposure control for dose reduction was used. TECHNIQUE: Helical acquisition of images from the lung bases through the pelvis have been completed. CONTRAST: Performed without Oral Contrast and with IV Contrast, patient injected with 80 mL of Isovue 370. FINDINGS: Small umbilical hernia contains fat. LUNG BASES: Bilateral trapped lungs, possible chronic empyema are again noted. AORTA: No significant abnormality is appreciated. LIVER/GB: e. PANCREAS: No significant abnormality is seen. SPLEEN: Subcentimeter low dense focus is indeterminate.. ADRENALS: No significant abnormality is seen. KIDNEYS: No significant interval change is seen, nonobstructive calculi present within the left kidne y, no hydronephrosis or ureteral calculus, low dense foci associated with the kidneys as on prior exa m, dominant cyst at the upper pole left kidney is exophytic measures 4.4 cm. Insufficient delay to as sess for renal excretion. REPRODUCTIVE ORGANS: No prostate calcifications. BOWEL: No significant abnormality is seen. FREE AIR: No Free Air visible. ASCITES: None visible. PELVIC ADENOPATHY: None visualized. RETROPERITONEAL ADENOPATHY: No Retroperitoneal Adenopathy visible. URINARY BLADDER: No significant abnormality is seen. OSSEOUS STRUCTURES: Degenerative disc changes are again noted within the lumbar spine, there is asso ciated facet arthropathy. IMPRESSION: NO ACUTE INTRA-ABDOMINAL ABNORMALITY, ADDITIONAL FINDINGS ABOVE.
[2020-08-19] MEDS ORDERED: PIPERACILLIN-TAZOBACTAM 3.375 GM in SODIUM CHLORIDE 0.9% 100 ML IVPB STA (11:56)
[2020-08-19] MEDS ORDERED: VANCOMYCIN IV PER PHARMACY 1 EACH MISC MISCELLANE PRN (11:56)
[2020-08-19] MEDS ORDERED: NALOXONE 0.4 MG/ML 1 ML VIAL IV PRN (12:02)
[2020-08-19] MEDS ORDERED: SODIUM CHLORIDE 0.9% 1,000 ML IV SCH (12:15)
[2020-08-19] MEDS ORDERED: SODIUM CHLORIDE 0.9% 1,000 ML IV ONE ×2 (12:30→14:31)
[2020-08-19] MEDS ORDERED: VANCOMYCIN 2,000 MG in SODIUM CHLORIDE 0.9% 500 ML 500 ML IVPB ONE (13:00)
[2020-08-19 14:03] LABS: Appearance,Urine Clear (Clear); Bilirubin,Urine Negative (Negative); Blood,Urine Negative (Negative); Color,Urine Yellow; Glucose,Urine (UA) Negative (Negative); Ketones,Urine Negative (Negative); Leukocyte Esterase,Urine Negative (Negative); Nitrite,Urine Negative (Negative); Protein,Urine Trace (Negative); Urobilinogen,Urine <2.0 mg/dL (<2.0)
[2020-08-19 14:17] LABS: Specific Gravity,Urine >1.050 (1.001-1.035)
--- NOTE | 2020-08-19 14:59 | P.CNPUL ---
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 Other medical history includes hypertension, hypothyroidism and previous history of DVT. Patient had a recent hospitaliza tion from August 08 through 08/11/2020 hypotension, dehydration related to nausea vomiting diarrhea, acute kidney injury. Patient received antibiotics in the form of Zosyn and Levaquin for possibility of pneumonia, he is chest x-ray showed cranial perihilar pulmonary infiltrates with increased interstitial changes at the lung bases and was thought to be related to a combination of rheumatoid lung and chronic scarring. His last CT of the chest was on 07/19/2020 showing chronic changes to lower lungs, persistent irregular thick- walled pleural spaces in the posterior lung bases containing fluid and air with adjacent anterior lung with chronic consolidation or atelectasis. On 08/19/2020 patient came into the emergency department from Dr. GENE Carias's office where he was being seen for a regular follow-up appointments. He was noted to have low pulse ox 70s and was sent in to the emergency department for evaluation. He has been having cough with yellow and sometimes blood-tinged sputum, appears amounts, denies any fever, COVID 19 was found to be negative, chest x-ray showed perihilar and basilar infiltrates without significant change from previous chest x-ray on 08/09/2020. Lab data showed leukocytosis with white blood cell count of 19.1, hemoglobin of 12.1, INR 1.5, sodium is 135, potassium is 3.9, chloride is 102, CO2 is 19, creatinine is 1.32, which has actually improved since his discharge from the hospital on 08/11/2020 when he was at 1.84. Lactic acid was elevated at 3.7, patient was given a total of 2 L in fluid boluses, troponin was negative at less than 0.012. Urinalysis showed no evidence of infection. CT chest showed thick-walled pleural cavities posteriorly in the lower lungs with left-sided air-fluid level with left-sided pleural fluid diminished most recent CT from 07/19/2020. There is associated compressive atelectasis and/or chronic consolidation. Persistent as it is lobe fissure, multifocal areas of reticular nodular opacity in the upper lungs remain present with slight nodularity in the left upper lobe. There is a focal consolidation improved from most recent study with some residual areas of scarring. We will emergency department patient became hypotensive with a blood pressure in the 70s, slightly tachycardic remains in sinus mechanism, he is receiving his third liter bolus, his lactic acid did respond and improved he was started on antibiotics in the form of Zosyn and vancomycin Review of Systems All systems: negative Constitutional: Denies chills, Denies fever Eyes: denies blurred vision, denies pain Ears, nose, mouth and throat: Denies headache, Denies sore throat Cardiovascular: Denies chest pain, Denies shortness of breath Respiratory: Reports dyspnea, Reports respiratory infections, Denies cough Gastrointestinal: Denies abdominal pain, Denies diarrhea, Denies nausea, Denies vomiting Musculoskeletal: Denies myalgias Integumentary: Denies pruritus, Denies rash Neurological: Denies numbness, Denies weakness Psychiatric: Denies anxiety, Denies depression Endocrine: Denies fatigue, Denies weight change Past Medical History Past Medical History: Deep Vein Thrombosis (DVT), GERD/Reflux, Hyperlipidemia, Hypertension, Neurologic Disorder, Renal Disease, Respiratory Disorder, Rheumatoid Arthritis (RA), Thyroid Disorder Additional Past Medical History / Comment(s): Pt recently admitted to [facility] on 08/08/20 with acute hypoxic respiratory failure 2ndary to hypovolemia from N/V/D, acute kidney injury, hypovolemic shock. Other hx: Rheumatoid arthritis, rheumatoid lungs with chronic interstitial lung disease maintained on Arava and chronic steroids in the past, previous history of pneumonia/empyema with Streptococcus and the patient required chest tube drainage - January 2020, past urinary retention, hypothyroidism, previous history of R foot infections requiring PICC line insertion, history of DVT L arm, nephrolithiasis, recent h ospitalization where he required one hemodialysis session. History of Any Multi-Drug Resistant Organisms: None Reported Past Surgical History: Back Surgery, Orthopedic Surgery, Tonsillectomy Additional Past Surgical History / Comment(s): Temporary hemodialysis cath, lithotripsy, colonoscopy, bronchoscopies, back surgery d/t herniated disc, bilateral carpal tunnel releases, bunions removed from feet, R foot plate for arch since removed, benign nodule off R hip, bilateral wrist ganglion cyst removals Past Anesthesia/Blood Transfusion Reactions: Previous Problems w/ Anesthesia Additional Past Anesthesia/Blood Transfusion Reaction / Comment(s): slow to awaken x1. Smoking Status: Former smoker - Past Family History Mother Family Medical History: Cancer Additional Family Medical History / Comment(s): lung with mets brain Father Family Medical History: No Reported History Additional Family Medical History / Comment(s): states, "he just ." Brother(s) Family Medical History: No Reported History Sister(s) Family Medical History: No Reported History Additional Family Medical History / Comment(s): Patient has 2 step daughters. Medications and Allergies Home Medications Medication Instructions Recorded Confirmed Type Levothyroxine Sodium [Synthroid] 150 mcg PO DAILY 10/17/16 08/19/20 History Albuterol Inhaler [Ventolin Hfa 2 puff INHALATION RT-QID PRN 12/30/19 08/19/20 History Inhaler] Ascorbic Acid [Vitamin C] 2,000 mg PO HS 07/13/20 08/19/20 History Cholecalciferol [Vitamin D3 (25 2,000 unit PO HS 07/13/20 08/19/20 History Mcg = 1000 Iu)] Ipratropium-Albuterol Nebulize 3 ml INHALATION RT-QID PRN 07/13/20 08/19/20 History [Duoneb 0.5 mg-3 mg/3 ml Soln] Aspirin 81 mg PO HS chew 08/11/20 08/19/20 Rx Metoprolol Succinate (ER) [Toprol 25 mg PO DAILY #30 tab.er.24h 08/11/20 08/19/20 Rx XL] Levofloxacin [Levaquin] 250 mg PO DAILY 08/19/20 08/19/20 History Ondansetron [Zofran] 4 mg PO QID PRN 08/19/20 08/19/20 History Allergies Allergy/AdvReac Type Severity Reaction Status Date / Time No Known Allergies Allergy Verified 08/19/20 10:37 Physical Exam Vitals: Vital Signs Temp Pulse Resp BP Pulse Ox 08/19/20 14:30 106 H 17 91/56 98 08/19/20 14:22 106 H 18 87/54 96 08/19/20 14:00 105 H 20 84/53 96 08/19/20 13:00 108 H 17 111/85 96 08/19/20 12:30 114 H 18 80/51 96 08/19/20 12:00 116 H 22 81/53 95 08/19/20 11:15 98.8 F 118 H 22 100/60 93 L 08/19/20 10:00 126 H 24 144/106 92 L 08/19/20 09:30 129 H 28 H 131/104 93 L 08/19/20 09:02 98.9 F 118 H 22 123/106 93 L Intake and Output 08/18/20 08/19/20 08/19/20 22:59 06:59 14:59 Other: Weight 95.254 kg GENERAL EXAM: Alert, pleasant, 60-year-old white male, on room air with a pulse ox of 98% resting on the gurney in the emergency department in the reverse Tr endelenburg position currently getting IV fluid boluses for hypotension, alert and responding appropriately comfortable in no apparent distress. HEAD: Normocephalic/atraumatic. EYES: Normal reaction of pupils, equal size. Conjunctiva pink, sclera white. NOSE: Clear with pink turbinates. THROAT: No erythema or exudates. NECK: No masses, no JVD, no thyroid enlargement, no adenopathy. CHEST: No chest wall deformity. Symmetrical expansion. LUNGS: Equal air entry with no crackles, wheeze, rhonchi or dullness. CVS: Regular rate and rhythm, normal S1 and S2, no gallops, no murmurs, no rubs ABDOMEN: Soft, nontender. No hepatosplenomegaly, normal bowel sounds, no guarding or rigidity. EXTREMITIES: No clubbing, no edema, no cyanosis, 2+ pulses and upper and lower extremities. MUSCULOSKELETAL: Muscle strength and tone normal. SPINE: No scoliosis or deformity SKIN: No rashes CENTRAL NERVOUS SYSTEM: Alert and oriented -3. No focal deficits, tone is normal in all 4 extremities. PSYCHIATRIC: Alert and oriented -3. Appropriate affect. Intact judgment and insight. Results - Laboratory Findings CBC and BMP: 08/19/20 09:26 08/19/20 09:26 ABG ABG pH 7.42 (7.35-7.45) 08/19/20 10:31 ABG pCO2 36 mmHg (35-45) 08/19/20 10:31 ABG pO2 80 mmHg (83-108) L 08/19/20 10:31 ABG O2 Saturation 96.2 % (94-97) 08/19/20 10:31 PT/INR, D-dimer PT 15.3 sec (9.0-12.0) H 08/19/20 09:26 INR 1.5 (<1.2) H 08/19/20 09:26 Abnormal lab findings: Abnormal Labs 08/19/20 08/19/20 08/19/20 09:26 09:26 09:26 WBC 19.1 H Hgb 12.3 L Hct 38.5 L RDW 17.2 H Neutrophils # 15.0 H Eosinophils # 0.8 H PT 15.3 H INR 1.5 H ABG pO2 VBG pCO2 VBG HCO3 Sodium 135 L Carbon Dioxide 19 L Creatinine 1.32 H Glucose 111 H Plasma Lactic Acid Caden Alkaline Phosphatase 190 H Albumin 3.1 L Ur Specific [place] Urine Protein 08/19/20 08/19/20 08/19/20 09:26 09:26 10:31 WBC Hgb Hct RDW Neutrophils # Eosinophils # PT INR ABG pO2 80 L VBG pCO2 36 L VBG HCO3 21 L Sodium Carbon Dioxide Creatinine Glucose Plasma Lactic Acid Caden 3.7 H* Alkaline Phosphatase Albumin Ur Specific [place] Urine Protein 08/19/20 12:50 WBC Hgb Hct RDW Neutrophils # Eosinophils # PT INR ABG pO2 VBG pCO2 VBG HCO3 Sodium Carbon Dioxide Creatinine Glucose Plasma Lactic Acid Caden Alkaline Phosphatase Albumin Ur Specific [place] >1.050 H Urine Protein Trace H - Diagnostic Findings Chest x-ray: report reviewed, image reviewed CT scan - chest: report reviewed, image reviewed Assessment and Plan Plan: Assessment: #1. Acute hypoxic respiratory failure related to sepsis, septic shock, related to pneumonia, with chronic loculated effusions, rule out possibility of empyema. COVID 19 was ruled out per PCR #2. Recent admission to the hospital for hypotension, dehydration related to nausea vomiting diarrhea, acute kidney injury #3. Recurrent pulmonary infections, with history of streptococcal pneumonia and empyema requiring chest tube placement in January 2020 #4. Chronic loculated pneumothoraces, posterior, with air-fluid level seen on the CT imaging of the chest, the possibility of trapped lung, chronic scarring and possibility of empyema needs to be ruled out #5. Elevated d-dimer with no CT evidence for pulmonary embolism #6. History of rheumatoid arthritis and rheumatoid lung disease on Arava #7. Recent history of acute kidney injury, and admission lab work today shows improvement in his renal function #8. Hypertension #9. Hypothyroidism #10. Previous history of foot infections requiring antibiotics #11. Previous history of DVT Plan: The patient additional 1 L and IV fluid bolus, patient has been started on broad-spectrum antibiotics including Zosyn and vancomycin, she will likely require vasopressor support, GI and DVT prophylaxis, infectious disease service has been consulted for antibiotic management, we spoke to interventional radiology in regards to possibility of Obtaining a small sample of the pleural fluid from the left lung pleural effusion for Gram stain and cultures including fungal culture. However patient needs to be resuscitated and blood pressure stabilized. If the pleural fluid is infected he will need cardiothoracic consultation with possibility of VATS. In the meantime continue to closely follow the patient in the ICU I performed a history & physical examination of the patient and discussed their management with my nurse practitioner, Марина Thompson. I reviewed the nurse practitioner's note and agree with the documented findings and plan of care. Lung sounds are positive for diminished breath sounds. The findings and the impression was discussed with the patient. I attest to the documentation by the nurse practitioner. Time with Patient: Greater than 30
[2020-08-19] MEDS: SODIUM CHLORIDE 0.9% 1,000 ML IV SCH (15:01)
[2020-08-19] MEDS ORDERED: IPRATROPIUM-ALBUTEROL 3 ML NEB INHALATION PRN (15:37)
--- NOTE | 2020-08-19 15:43 | ED ---
Medical Decision Making - Lab Data Result diagrams: 08/19/20 09:26 08/19/20 09:26 Lab Results 08/19/20 08/19/20 08/19/20 Range/Units 09:26 09:26 09:26 WBC 19.1 H (3.8-10.6) k/uL RBC 4.40 (4.30-5.90) m/uL Hgb 12.3 L (13.0-17.5) gm/dL Hct 38.5 L (39.0-53.0) % MCV 87.7 (80.0-100.0) fL MCH 27.9 (25.0-35.0) pg MCHC 31.8 (31.0-37.0) g/dL RDW 17.2 H (11.5-15.5) % Plt Count 316 (150-450) k/uL MPV 9.0 Neutrophils % 78 % Lymphocytes % 10 % Monocytes % 5 % Eosinophils % 4 % Basophils % 1 % Neutrophils # 15.0 H (1.3-7.7) k/uL Lymphocytes # 2.0 (1.0-4.8) k/uL Monocytes # 1.0 (0-1.0) k/uL Eosinophils # 0.8 H (0-0.7) k/uL Basophils # 0.1 (0-0.2) k/uL Manual Slide Review Performed Polychromasia Present Hypochromasia Marked Anisocytosis Slight PT 15.3 H (9.0-12.0) sec INR 1.5 H (<1.2) APTT 27.0 (22.0-30.0) sec Sample Site ABG pH (7.35-7.45) ABG pCO2 (35-45) mmHg ABG pO2 (83-108) mmHg ABG HCO3 (21-25) mmol/L ABG Total CO2 (19-24) mmol/L ABG O2 Saturation (94-97) % ABG Base Excess mmol/L Atilio Test VBG pH (7.31-7.41) VBG pCO2 (37-51) mmHg VBG HCO3 (24-28) mmol/L FiO2 % Sodium 135 L (137-145) mmol/L Potassium 3.9 (3.5-5.1) mmol/L Chloride 102 (98-107) mmol/L Carbon Dioxide 19 L (22-30) mmol/L Anion Gap 14 mmol/L BUN 14 (9-20) mg/dL Creatinine 1.32 H (0.66-1.25) mg/dL Est GFR (CKD-EPI)AfAm 68 (>60 ml/min/1.73 sqM) Est GFR (CKD-EPI)NonAf 59 (>60 ml/min/1.73 sqM) Glucose 111 H (74-99) mg/dL Lactic Ac Sepsis Rflx Plasma Lactic Acid Caden (0.7-2.0) mmol/L Calcium 9.3 (8.4-10.2) mg/dL Magnesium 1.6 (1.6-2.3) mg/dL Total Bilirubin 1.0 (0.2-1.3) mg/dL AST 29 (17-59) U/L ALT 18 (4-49) U/L Alkaline Phosphatase 190 H (38-126) U/L Troponin I (0.000-0.034) ng/mL Total Protein 7.3 (6.3-8.2) g/dL Albumin 3.1 L (3.5-5.0) g/dL Coronavirus (PCR) (Not Detectd) 08/19/20 08/19/20 08/19/20 Range/Units 09:26 09:26 09:26 WBC (3.8-10.6) k/uL RBC (4.30-5.90) m/uL Hgb (13.0-17.5) gm/dL Hct (39.0-53.0) % MCV (80.0-100.0) fL MCH (25.0-35.0) pg MCHC (31.0-37.0) g/dL RDW (11.5-15.5) % Plt Count (150-450) k/uL MPV Neutrophils % % Lymphocytes % % Monocytes % % Eosinophils % % Basophils % % Neutrophils # (1.3-7.7) k/uL Lymphocytes # (1.0-4.8) k/uL Monocytes # (0-1.0) k/uL Eosinophils # (0-0.7) k/uL Basophils # (0-0.2) k/uL Manual Slide Review Polychromasia Hypochromasia Anisocytosis PT (9.0-12.0) sec INR (<1.2) APTT (22.0-30.0) sec Sample Site ABG pH (7.35-7.45) ABG pCO2 (35-45) mmHg ABG pO2 (83-108) mmHg ABG HCO3 (21-25) mmol/L ABG Total CO2 (19-24) mmol/L ABG O2 Saturation (94-97) % ABG Base Excess mmol/L Atilio Test VBG pH 7.38 (7.31-7.41) VBG pCO2 36 L (37-51) mmHg VBG HCO3 21 L (24-28) mmol/L FiO2 % Sodium (137-145) mmol/L Potassium (3.5-5.1) mmol/L Chloride (98-107) mmol/L Carbon Dioxide (22-30) mmol/L Anion Gap mmol/L BUN (9-20) mg/dL Creatinine (0.66-1.25) mg/dL Est GFR (CKD-EPI)AfAm (>60 ml/min/1.73 sqM) Est GFR (CKD-EPI)NonAf (>60 ml/min/1.73 sqM) Glucose (74-99) mg/dL Lactic Ac Sepsis Rflx Plasma Lactic Acid Caden 3.7 H* (0.7-2.0) mmol/L Calcium (8.4-10.2) mg/dL Magnesium (1.6-2.3) mg/dL Total Bilirubin (0.2-1.3) mg/dL AST (17-59) U/L ALT (4-49) U/L Alkaline Phosphatase (38-126) U/L Troponin I <0.012 (0.000-0.034) ng/mL Total Protein (6.3-8.2) g/dL Albumin (3.5-5.0) g/dL Coronavirus (PCR) (Not Detectd) 08/19/20 08/19/20 08/19/20 Range/Units 10:31 10:33 10:52 WBC (3.8-10.6) k/uL RBC (4.30-5.90) m/uL Hgb (13.0-17.5) gm/dL Hct (39.0-53.0) % MCV (80.0-100.0) fL MCH (25.0-35.0) pg MCHC (31.0-37.0) g/dL RDW (11.5-15.5) % Plt Count (150-450) k/uL MPV Neutrophils % % Lymphocytes % % Monocytes % % Eosinophils % % Basophils % % Neutrophils # (1.3-7.7) k/uL Lymphocytes # (1.0-4.8) k/uL Monocytes # (0-1.0) k/uL Eosinophils # (0-0.7) k/uL Basophils # (0-0.2) k/uL Manual Slide Review Polychromasia Hypochromasia Anisocytosis PT (9.0-12.0) sec INR (<1.2) APTT (22.0-30.0) sec Sample Site LRAD ABG pH 7.42 (7.35-7.45) ABG pCO2 36 (35-45) mmHg ABG pO2 80 L (83-108) mmHg ABG HCO3 23 (21-25) mmol/L ABG Total CO2 24 (19-24) mmol/L ABG O2 Saturation 96.2 (94-97) % ABG Base Excess -1.3 mmol/L Atilio Test Yes VBG pH (7.31-7.41) VBG pCO2 (37-51) mmHg VBG HCO3 (24-28) mmol/L FiO2 28 % Sodium (137-145) mmol/L Potassium (3.5-5.1) mmol/L Chloride (98-107) mmol/L Carbon Dioxide (22-30) mmol/L Anion Gap mmol/L BUN (9-20) mg/dL Creatinine (0.66-1.25) mg/dL Est GFR (CKD-EPI)AfAm (>60 ml/min/1.73 sqM) Est GFR (CKD-EPI)NonAf (>60 ml/min/1.73 sqM) Glucose (74-99) mg/dL Lactic Ac Sepsis Rflx Y Plasma Lactic Acid Caden (0.7-2.0) mmol/L Calcium (8.4-10.2) mg/dL Magnesium (1.6-2.3) mg/dL Total Bilirubin (0.2-1.3) mg/dL AST (17-59) U/L ALT (4-49) U/L Alkaline Phosphatase (38-126) U/L Troponin I (0.000-0.034) ng/mL Total Protein (6.3-8.2) g/dL Albumin (3.5-5.0) g/dL Coronavirus (PCR) Not Detected (Not Detectd) Disposition Clinical Impression: Lung infection Disposition: ADMITTED IP TO THIS HOSP Condition: Critical Decision Time: 15:43 Procedures - [place] Protocol (Time Out) Procedure Performed:: central line placement Performing Provider: Jerry Kat Nurse: Kristen Pereira Patient Identification (2 identifiers required): Chart, Verbal, Arm Band, Name Patient/Legal Composition Floor Setter has Confirmed: Identity, Site, Procedure, Consent Site: left IJ Site Marked: Yes Site Verified With Patient/Guardian: Yes - Central Line Placement Left IJ Consent Obtained: verbal consent, written consent Patient Placed on Monitor/Pulse Ox: Yes Prep: mask, gown, gloves Central Line Prep: Chlorhexidine scrub Local Anesthesia Used: Lidocaine 1%, with Epi Ultrasound Used for Placement: Yes Central Line Lumen Inserted: triple Bloods Obtained for Lab: No Central Line Position: good blood return, all ports aspirated, flushed, capped, sutured in place with 3-0 nylon Dressing Applied: Tegaderm Post Procedure X-Ray: tip of catheter in good position Patient Tolerated Procedure: well Complications: none
--- NOTE | 2020-08-19 16:01 | XR ---
EXAMINATION TYPE: XR chest 1V confirm line [facility] DATE OF EXAM: 08/19/2020 COMPARISON: Chest x-ray same date earlier time HISTORY: Status post central line placement TECHNIQUE: Single frontal view of the chest is obtained. FINDINGS: There has been interval placement of a left jugular central venous catheter, distal tip of the catheter is overlying the superior vena cava. There is no evident pneumothorax. No other signifi cant interval change. IMPRESSION: No evident complication status post central line placement.
[2020-08-19 16:21] LABS: Glucose,Whole Blood 86 mg/dL (75-99)
--- NOTE | 2020-08-19 17:08 | P.HPIM ---
History of Present Illness H&P Date: 08/19/20 Chief Complaint: Right loculated empyema with sepsis This is a 60-year-old male patient requesting my service with past medical history of rheumatoid arthritis on Arava that was diagnosed when he was 37 year old initially was started on Methotrexate that he could not tolerate then placed on Embrel but he developed side effects and finally was tried on Humira injection but he developed neurologic sided effects and was hospitaized at [facility] for quiet some time, rheumatoid lung disease, previous history of loculated empyema with chest tube placement in January 2020, hypertension, hypothyroidism, history of DVT, remote history of tobacco use and dependence, was recently hospitalized at [facility] after he was admitted for an acute kidney injury with significant metabolic acidosis associated with the elevated creatinine and elevated BUN and hypotension at that time he was seen and evaluated by pulmonary and critical care medicine, he had a central line placed and at that time, he was placed on Levophed drip he was placed on IV anabiotic as well but the patient recovered very fast and he had an echocardiogram that showed normal LV function and segmental hypokinesia, he was supposed to follow-up with Dr. 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 clinical transplant coordinator today and he had an episode when he was dizzy lightheaded and an episode of vomiting as well and he was sent to the emergency department for evaluation had a computed tomography of the chest as well as abdomen and pelvis that showed a thick walled pleural cavities posteriorly in the lower lungs with left-sided air-fluid level that has diminished in size from the prior computed tomography scan when he was in the hospital a few weeks back there is also associated compressive atelectasis and chronic consultation with multifocal areas of reticular nodular opacity in the upper lungs with a slight nodularity of the left upper lobe again this area of f ocal consultation has improved from the previous study that was done few weeks ago, patient was started on IV antibiotic with vancomycin and Zosyn as well as IV fluid, he was seen in consultation by pulmonary critical care in the emergency department as the patient blood pressure dropped and that he'll be transferred to the intensive care unit at this point in time I had long conversation with the patient and his at the bedside and the patient may need to have a chest tube placed for his possible right empyema, he did receive 3 L normal saline in the ER, and his blood pressure is marginal he may need to go on pressors if not recovered. Review of Systems Constitutional: Reports anorexia, Reports chronic pain, Reports fatigue, Reports weakness, Reports weight loss Eyes: denies blurred vision, denies bulging eye, denies decreased vision, denies diplopia Ears, nose, mouth and throat: Denies dysphagia, Denies neck lump, Denies sore throat Respiratory: Reports dyspnea, Reports respiratory infections, Denies congestion, Denies cough with sputum, Denies home oxygen, Denies sleep apnea, Denies snoring, Denies wheezing Gastrointestinal: Reports bloating, Reports change in bowel habits, Reports diarrhea, Reports early satiety, Reports indigestion, Reports loss of appetite, Reports nausea, Reports vomiting, Denies abdominal pain, Denies belching, Denies heartburn, Denies hematemesis, Denies hematochezia, Denies melena Genitourinary: Denies dysuria, Denies nocturia Musculoskeletal: Denies myalgias Musculoskeletal: absent: ankle pain, ankle stiffness, ankle swelling, elbow pain, elbow stiffness, elbow swelling, foot pain, foot stiffness, foot swelling, hand pain, hand stiffness, hand swelling, hip pain, hip stiffness, hip swelling, knee pain, knee stiffness, knee swelling, shoulder pain, shoulder stiffness, shoulder swelling, wrist pain, wrist stiffness, wrist swelling Integumentary: Denies pruritus, Denies rash Neurological: Denies numbness, Denies weakness Psychiatric: Denies anxiety, Denies depression Endocrine: Denies fatigue, Denies weight change Past Medical History Past Medical History: Deep Vein Thrombosis (DVT), GERD/Reflux, Hyperlipidemia, Hypertension, Neurologic Disorder, Renal Disease, Respiratory Disorder, Rheumatoid Arthritis (RA), Thyroid Disorder Additional Past Medical History / Comment(s): Pt recently admitted to [facility] on 08/08/20 with acute hypoxic respiratory failure 2ndary to hypovolemia from N/V/D, acute kidney injury, hypovolemic shock. Other hx: Rheumatoid arthritis, rheumatoid lungs with chronic interstitial lung disease maintained on Arava and chronic steroids in the past, previous history of pneumonia/empyema with Streptococcus and the patient required chest tube drainage - January 2020, past urinary retention, hypothyroidism, previous history of R foot infections requiring PICC line insertion, history of DVT L arm, nephrolithiasis, recent hospitalization where he required one hemodialysis session. History of Any Multi-Drug Resistant Organisms: None Reported Past Surgical History: Back Surgery, Orthopedic Surgery, Tonsillectomy Additional Past Surgical History / Comment(s): Temporary hemodialysis cath, lithotripsy, colonoscopy, bronchoscopies, back surgery d/t herniated disc, bilateral carpal tunnel releases, bunions removed from feet, R foot plate for arch since removed, benign nodule off R hip, bilateral wrist ganglion cyst removals Past Anesthesia/Blood Transfusion Reactions: Previous Problems w/ Anesthesia Additional Past Anesthesia/Blood Transfusion Reaction / Comment(s): slow to awaken x1. Smoking Status: Former smoker - Past Family History Mother Family Medical History: Cancer Additional Family Medical History / Comment(s): lung with mets brain Father Family Medical History: No Reported History Additional Family Medical History / Comment(s): states, "he just ." Brother(s) Family Medical History: No Reported History Sister(s) Family Medical History: No Reported History Additional Family Medical History / Comment(s): Patient has 2 step daughters. Medications and Allergies Home Medications Medication Instructions Recorded Confirmed Type Levothyroxine Sodium [Synthroid] 150 mcg PO DAILY 10/17/16 08/19/20 History Albuterol Inhaler [Ventolin Hfa 2 puff INHALATION RT-QID PRN 12/30/19 08/19/20 History Inhaler] Ascorbic Acid [Vitamin C] 2,000 mg PO HS 07/13/20 08/19/20 History Cholecalciferol [Vitamin D3 (25 2,000 unit PO HS 07/13/20 08/19/20 History Mcg = 1000 Iu)] Ipratropium-Albuterol Nebulize 3 ml INHALATION RT-QID PRN 07/13/20 08/19/20 History [Duoneb 0.5 mg-3 mg/3 ml Soln] Aspirin 81 mg PO HS chew 08/11/20 08/19/20 Rx Metoprolol Succinate (ER) [Toprol 25 mg PO DAILY #30 tab.er.24h 08/11/20 08/19/20 Rx XL] Levofloxacin [Levaquin] 250 mg PO DAILY 08/19/20 08/19/20 History Ondansetron [Zofran] 4 mg PO QID PRN 08/19/20 08/19/20 History Allergies Allergy/AdvReac Type Severity Reaction Status Date / Time No Known Allergies Allergy Verified 08/19/20 10:37 Physical Exam Vitals: Vital Signs Temp Pulse Resp BP Pulse Ox 08/19/20 16:00 98.9 F 111 H 21 95 08/19/20 15:41 100 20 94/56 95 08/19/20 15:18 100 19 94/56 95 08/19/20 15:07 101 H 22 67/40 93 L 08/19/20 14:30 106 H 17 91/56 98 08/19/20 14:22 106 H 18 87/54 96 08/19/20 14:00 105 H 20 84/53 96 08/19/20 13:00 108 H 17 111/85 96 08/19/20 12:30 114 H 18 80/51 96 08/19/20 12:00 116 H 22 81/53 95 08/19/20 11:15 98.8 F 118 H 22 100/60 93 L 08/19/20 10:00 126 H 24 144/106 92 L 08/19/20 09:30 129 H 28 H 131/104 93 L 08/19/20 09:02 98.9 F 118 H 22 123/106 93 L Intake and Output 08/19/20 08/19/20 08/19/20 06:59 14:59 22:59 Other: Weight 95.254 kg Physical examination: General: patient is 60 year old lying down in bed in moderate distress. HEENT: head ia atraumatic normocephalic, Pupils were equal round reactive to light and accommodations , extra ocular muscle movement were intact, mucous membranes of the mouth are somewhat dry. Neck: supple no JVP.' Chest: decreased breath sounds at he bases with few ronchi no expiratory wheezes no chest wall tendernes or intercostal retractions. Heart: first heart sound is depressed, second heart sound is normal tachycardic there is BIRD 2/6 located at the left sternal border. Abdomen: soft, mild tenderness to the left lower quadrant positive bowel sounds, no guarding or rebound tenderness, no hepatosplenomegaly. Extremities: there is no edema or calf tenderness DP+ 2 Bilaterally, there is what appears to be a charcot joint in the right foot form arch collapse. Neurologic examination: patient is awake , alert and oriented X 3 CN II-XII are grossly intact, muscle power 4/5 in bilateral upper and lower extremities, deep tendon reflexes were normal. Results CBC & Chem 7: 08/19/20 09:08/19/20 09:26 Labs: Abnormal Lab Results - Last 24 Hours (Table) 08/19/20 08/19/20 08/19/20 Range/Units 09: 09: 09:26 WBC 19.1 H (3.8-10.6) k/uL Hgb 12.3 L (13.0-17.5) gm/dL Hct 38.5 L (39.0-53.0) % RDW 17.2 H (11.5-15.5) % Neutrophils # 15.0 H (1.3-7.7) k/uL Eosinophils # 0.8 H (0-0.7) k/uL PT 15.3 H (9.0-12.0) sec INR 1.5 H (<1.2) ABG pO2 (83-108) mmHg VBG pCO2 (37-51) mmHg VBG HCO3 (24-28) mmol/L Sodium 135 L (137-145) mmol/L Carbon Dioxide 19 L (22-30) mmol/L Creatinine 1.32 H (0.66-1.25) mg/dL Glucose 111 H (74-99) mg/dL Plasma Lactic Acid Caden (0.7-2.0) mmol/L Alkaline Phosphatase 190 H (38-126) U/L Albumin 3.1 L (3.5-5.0) g/dL Ur Specific Baker (1.001-1.035) Urine Protein (Negative) 08/19/20 08/19/20 08/19/20 Range/Units 09: 09: 10:31 WBC (3.8-10.6) k/uL Hgb (13.0-17.5) gm/dL Hct (39.0-53.0) % RDW (11.5-15.5) % Neutrophils # (1.3-7.7) k/uL Eosinophils # (0-0.7) k/uL PT (9.0-12.0) sec INR (<1.2) ABG pO2 80 L (83-108) mmHg VBG pCO2 36 L (37-51) mmHg VBG HCO3 21 L (24-28) mmol/L Sodium (137-145) mmol/L Carbon Dioxide (22-30) mmol/L Creatinine (0.66-1.25) mg/dL Glucose (74-99) mg/dL Plasma Lactic Acid Caden 3.7 H* (0.7-2.0) mmol/L Alkaline Phosphatase (38-126) U/L Albumin (3.5-5.0) g/dL Ur Specific Baker (1.001-1.035) Urine Protein (Negative) 08/19/20 Range/Units 12:50 WBC (3.8-10.6) k/uL Hgb (13.0-17.5) gm/dL Hct (39.0-53.0) % RDW (11.5-15.5) % Neutrophils # (1.3-7.7) k/uL Eosinophils # (0-0.7) k/uL PT (9.0-12.0) sec INR (<1.2) ABG pO2 (83-108) mmHg VBG pCO2 (37-51) mmHg VBG HCO3 (24-28) mmol/L Sodium (137-145) mmol/L Carbon Dioxide (22-30) mmol/L Creatinine (0.66-1.25) mg/dL Glucose (74-99) mg/dL Plasma Lactic Acid Caden (0.7-2.0) mmol/L Alkaline Phosphatase (38-126) U/L Albumin (3.5-5.0) g/dL Ur Specific Baker >1.050 H (1.001-1.035) Urine Protein Trace H (Negative) Thrombosis Risk Factor Assmnt - DVT/VTE Prophylaxis DVT/VTE Prophylaxis: Pharmacologic Prophylaxis ordered, Mechanical Prophylaxis ordered - Choose All That Apply Any of the Below Risk Factors Present?: Yes Each Factor Represents 1 point: Age 41-60 years, Obesity (BMI >25), Serious lung disease incl. pneumonia (< 1month) Other Risk Factors: Yes Each Risk Factor Represents 3 Points: History of DVT/PE Other congenital or acquired thrombophilia - If yes, enter type in comment: No Thrombosis Risk Factor Assessment Total Risk Factor Score: 6 Thrombosis Risk Factor Assessment Level: High Risk Assessment and Plan Assessment: Assessment and plan: 1. Acute hypoxemic respiratory failure secondary to loculated left-sided pleural effusion and possible empyema with what appears to be recurrent pn eumonia. Patient was admitted to the intensive care unit, he was started on IV fluid resuscitation, he may be started on Levophed, continue IV antibiotic in the form of a question of Oleg, ID consultation, also interventional radiology consultation for possible thoracentesis of the left loculated pleural fluid for Gram stain and culture as well as LDH protein as well as pH for possible empyema with thoracic surgery consultation for possible VATS versus decortication and chest tube placement. 2. Lactic acidosis. Continue IV fluid resuscitation, continue with IV and biotic with a question of Zosyn, repeat lactic acid is 6 hours. 3. Sepsis with possible septic shock. Continue IV fluid resuscitation, continue IV antibiotic, start Levothroid drip to keep his mean greater than 65 mmHg. 4. Acute kidney injury due to poor oral intake of fluid as well as hypotension with acute tubular necrosis. Continue IV fluid, continue to monitor the patient CMP continue to monitor urine output. 5. Leukocytosis secondary to severe sepsis. Continue IV fluid, continue IV antibiotic, repeat CBC tomorrow morning. 6. Rheumatoid arthritis and rheumatoid lung. Arava and Xeljanz had been on hold since April 7. History of empyema with Streptococcus requiring chest tube. His is a similar scenario may need a cardiothoracic surgery consultation. 8. Hypertension and hypertensive cardiovascular disease. currently hypotensive . Continue the IV fluid currently as well as IV pressors if needed 9. Hypothyroidism . we will continue with Synthroid 150 mcg orally daily. 10. DVT prophylaxis. we will start Lovenox 40 mg SC daily and bilateral knee high Cecilio Hose 11. GI prophylaxis. we will continue with Protonix 40 mg IVP daily. 12. Admits to inpatient , estimated length of stay 2 midnights. 13. Full code.
[2020-08-19] MEDS: NOREPINEPHRINE 32 MG in SODIUM CHLORIDE 0.9% 218 ML IV SCH (18:04)
[2020-08-19] MEDS: HEPARIN SODIUM,PORCINE 5,000 UNIT/ML 1 ML VIAL SQ SCH (18:06)
[2020-08-19] MEDS: PANTOPRAZOLE 40 MG/10 ML VIAL IVP SCH (18:06)
[2020-08-19] MEDS: ACETAMINOPHEN TAB 325 MG TAB PO PRN (18:45)
[2020-08-19] MEDS: IPRATROPIUM-ALBUTEROL 3 ML NEB INHALATION SCH (20:38)
[2020-08-19] MEDS: CHOLECALCIFEROL 25 MCG (1000 IU) TABLET PO SCH (22:17)
[2020-08-19] MEDS: ASCORBIC ACID 500 MG TAB PO SCH (22:17)
[2020-08-19] MEDS: ASPIRIN 81 MG PO SCH (22:18)
--- NOTE | 2020-08-19 23:21 | CONS ---
CONSULTATION DATE OF SERVICE: 08/19/2020 REASON FOR CONSULTATION: Sepsis, pneumonia/empyema. HISTORY OF PRESENT ILLNESS: The patient is a 60-year-old male with a history of rheumatoid arthritis and rheumatoid lung disease and has been on immunomodulator medication. The patient was hospitalized in December of 2019 and the patient did have left-sided empyema requiring chest tube placement. Cultures were positive for Strep pneumo and the patient received a 4-week course of IV Rocephin. The patient subsequently recovered and has been doing okay. He was admitted to this facility a few weeks ago with acute lung injury, for which the patient was treated by Nephrology and the ICU team. The patient recently has been evaluated by his primary care physician. The patient was complaining of increasing shortness of breath that apparently has been getting worse for the last few days to weeks. The patient also has a cough which is moderate in intensity with occasional greenish sputum, no hemoptysis. Denies having any pleuritic chest pain. The patient has been monitored in the outpatient setting. He did have a chest x-ray with evidence of right lower lobe infiltrate. Elevated white count and the patient was started on Levaquin. The patient was seen at the cardiology office today, where he had an episode of dizziness, lightheadedness and an episode of vomiting, for the patient was sent to [facility] for evaluation. On arrival in the ER, the patient was afebrile. The patient did have a pulse ox of 93% on presentation to the hospital. The patient's white count was 19.1 with a left shift. Creatinine was 1.32, lactic acid 3.7. Urine was negative. Tejeda PCR was negative. The patient did have a CT angiogram of the chest with evidence of chronic parenchymal changes from known rheumatoid lung disease, underlying acute pulmonary process possible in the upper lungs and it also mentioned thick-walled pleural cavities posteriorly in the lower lungs with left-sided air-fluid level that seemed to have slightly decreased from recent CT of the chest. CT scan of abdomen and pelvis was negative. The patient was hypotensive, requiring fluid boluses, and has been admitted to the ICU. The patient was started on vancomycin and Zosyn. Infectious Disease was consulted for further management of antibiotic therapy. REVIEW OF SYSTEMS: Positive points have been mentioned in the HPI. Rest of the systems are negative. PAST MEDICAL HISTORY: Hypertension, hyperlipidemia hypothyroidism, left-sided empyema secondary to Strep pneumo. PAST SURGICAL HISTORY: Back surgery, tonsillectomy, right foot surgery. He did have a chest tube and subsequent removal. SOCIAL HISTORY: Remote history of smoking. Rarely drinks. No drug use. FAMILY HISTORY: Mother with history of lung cancer. ALLERGIES: NO KNOWN DRUG ALLERGIES. MEDICATIONS: The patient is currently on Tylenol, DuoNeb, vitamin C, aspirin, Zosyn, levothyroxine and vancomycin. PHYSICAL EXAMINATION: Blood pressure is 93/55 with a pulse of 93, temperature 97.8. He is 94% on 2 L nasal cannula. General description is a middle-aged male lying in bed in no distress. No tachypnea or accessory muscle of respiration use. HEENT: Examination shows no pallor or scleral icterus. Oral mucous membrane is dry. NECK: Trachea is central. No thyromegaly. LUNGS: Unlabored breathing. Decreased breath sounds at bases. No wheeze or crackle. HEART: S1, S2. Regular rate and rhythm. ABDOMEN: Soft. No tenderness. No guarding or rigidity. EXTREMITIES: No edema of the feet. SKIN EXAMINATION: No rash or mass palpable. Neurologically the patient is awake, alert, oriented x3. Mood and affect normal. LABS: Hemoglobin is 12.3, white count 19.1. BUN of 14, creatinine 1.32. Lactate acid 3.7. BUN is 1.7. Liver enzymes are normal. Urine is negative. Tejeda PCR was negative. Chest x-ray and CT report mentioned above. DIAGNOSTIC IMPRESSION AND PLAN: Patient presented to hospital with dizziness, weakness, shortness of breath and complaining of a cough with productive sputum in this patient who did have a history of left-sided empyema requiring chest tube placement. Cultures at that time were positive for Strep pneumo, for which the patient received 4 weeks of IV antibiotic therapy and has been doing well for the last 6 months, with recent worsening of his symptoms in this patient who did have elevated white count and elevated lactic acid and hypertension, admitting criteria for SIRS. possible concerning for chronic empyema/pneumonia, as no other obvious focus of infection. Abdomen was soft on clinical examination. CT was negative. No evidence of any cellulitis. PLAN: 1. Await CT-guided aspirate of the fluid, which should be sent for culture. 2. We will keep the patient on vancomycin or discontinue Zosyn and add cefepime to cover for the Gram-negative and to decrease the risk of nephrotoxicity with vancomycin and Zosyn combination. 3. We will follow his clinical condition and culture to further adjust medication if needed. Thank you for this consultation. Will follow this patient along with you. LIZETTE / HEIDYN: [id number] /
[2020-08-20] MEDS ORDERED: PIPERACILLIN-TAZOBACTAM 3.375 GM in SODIUM CHLORIDE 0.9% 100 ML IVPB SCH ×2
[2020-08-20] MEDS: HEPARIN SODIUM,PORCINE 5,000 UNIT/ML 1 ML VIAL SQ SCH ×3 (00:38→17:07)
[2020-08-20] MEDS: VANCOMYCIN 1,750 MG in SODIUM CHLORIDE 0.9% 500 ML 500 ML IVPB SCH ×2 (00:38→12:44)
[2020-08-20 03:38] LABS: Anisocytosis Slight; Basophils # (A) 0.1 k/uL (0-0.2); Basophils % (A) 1 %; Eosinophils # (A) 0.6 k/uL (0-0.7); Eosinophils % (A) 5 %; HCT 32.5 % (39.0-53.0); Hypochromasia Marked; Lymphocytes # (A) 1.3 k/uL (1.0-4.8); Lymphocytes % (A) 11 %; MCH 26.3 pg (25.0-35.0); MCHC 29.7 g/dL (31.0-37.0); MCV 88.4 fL (80.0-100.0); Mean Platelet Volume 8.9; Monocytes # (A) 0.8 k/uL (0-1.0); Monocytes % (A) 7 %; Neutrophils # (A) 8.7 k/uL (1.3-7.7); Neutrophils % (A) 74 %; Platelet Count 253 k/uL (150-450); RBC 3.67 m/uL (4.30-5.90); WBC 11.7 k/uL (3.8-10.6)
[2020-08-20 03:51] LABS: HGB 9.7 gm/dL (13.0-17.5)
[2020-08-20 03:56] LABS: African American GFR (CKD) >90 (>60 ml/min/1.73 sqM); Anion Gap 9 mmol/L; Blood Urea Nitrogen 9 mg/dL (9-20); Carbon Dioxide 20 mmol/L (22-30); Chloride 106 mmol/L (98-107); Glucose 88 mg/dL (74-99); Non-African American GFR(CKD) 82 (>60 ml/min/1.73 sqM); Potassium 3.6 mmol/L (3.5-5.1); Sodium 135 mmol/L (137-145)
[2020-08-20] MEDS: SODIUM CHLORIDE 0.9% 1,000 ML IV SCH ×2 (04:31→09:29)
[2020-08-20] MEDS: LEVOTHYROXINE 75 MCG TAB PO SCH (04:31)
[2020-08-20] MEDS ORDERED: POTASSIUM CHLORIDE ER 20 MEQ TAB.ER PO SCH ×2 (05:00→10:00)
[2020-08-20] MEDS: IPRATROPIUM-ALBUTEROL 3 ML NEB INHALATION SCH ×3 (07:38→20:48)
--- NOTE | 2020-08-20 07:54 | XR ---
EXAMINATION TYPE: XR chest 1V portable DATE OF EXAM: 08/20/2020 COMPARISON: Prior chest x-ray 08/19/2020 HISTORY: Shortness of breath TECHNIQUE: Single frontal view of the chest is obtained. FINDINGS: There is not a significant interval change. Distal tip of the internal jugular central andre ous catheter courses in a cephalad direction likely within the right innominate vein. IMPRESSION: Stable findings. Correlate for pneumonia, edema, there are chronic pleural and parenchym al changes
--- NOTE | 2020-08-20 09:12 | P.NPCON ---
History of Present Illness - Reason for Consult acute renal failure - Chief Complaint Acute kidney injury resolving - History of Present Illness This is a 60-year-old male seen in consultation because of acute kidney injury. He was admitted because of shortness of breath and hypotension. He had recently severe acute kidney injury because of nausea vomiting diarrhea and was admitted here and discharged on 08/11/2020. creatinine was 7.63 as of 08/08/2020. He was discharged on 08/11/2020. His creatinine on the day of discharge on 08/11/2020 was 1.84. He was admitted yesterday 08/19/2020, and creatinine had improved to 1.32 as of yesterday on admission. He had a computed tomography scan with dye, his creatinine is 1 as of this morning, he is making adequate amount of urine. He remains on small doses of levo fed because of blood pressure being low. His also on IV fluids. Currently he denies any nausea vomiting appetite is returning no diarrhea. No fever chills. Does have shortness of breath and mild cough. His past history significant for chronic rheumatoid arthritis with rheumatoid lung on multiple immunosuppressive medications, recently had empyema had chest tube. Also known with hypertension. Past Medical History Past Medical History: Deep Vein Thrombosis (DVT), GERD/Reflux, Hyperlipidemia, Hypertension, Neurologic Disorder, Renal Disease, Respiratory Disorder, Rheumatoid Arthritis (RA), Thyroid Disorder Additional Past Medical History / Comment(s): Pt recently admitted to [facility] on 08/08/20 with acute hypoxic respiratory failure 2ndary to hypovolemia from N/V/D, acute kidney injury, hypovolemic shock. Other hx: Rheumatoid arthritis, rheumatoid lungs with chronic interstitial lung disease maintained on Arava and chronic steroids in the past, previous history of pneumonia/empyema with Streptococcus and the patient required chest tube drainage - January 2020, past urinary retention, hypothyroidism, previous history of R foot infections requiring PICC line insertion, history of DVT L arm, nephrolithiasis, recent hospitalization where he required one hemodialysis session. History of Any Multi-Drug Resistant Organisms: None Reported Past Surgical History: Back Surgery, Orthopedic Surgery, Tonsillectomy Additional Past Surgical History / Comment(s): Temporary hemodialysis cath, lithotripsy, colonoscopy, bronchoscopies, back surgery d/t herniated disc, bilateral carpal tunnel releases, bunions removed from feet, R foot plate for arch since removed, benign nodule off R hip, bilateral wrist ganglion cyst removals Past Anesthesia/Blood Transfusion Reactions: Previous Problems w/ Anesthesia Additional Past Anesthesia/Blood Transfusion Reaction / Comment(s): slow to awaken x1. Smoking Status: Former smoker - Past Family History Mother Family Medical History: Cancer Additional Family Medical History / Comment(s): lung with mets brain Father Family Medical History: No Reported History Additional Family Medical History / Comment(s): states, "he just ." Brother(s) Family Medical History: No Reported History Sister(s) Family Medical History: No Reported History Additional Family Medical History / Comment(s): Patient has 2 step daughters. Medications and Allergies Home Medications Medication Instructions Recorded Confirmed Type Levothyroxine Sodium [Synthroid] 150 mcg PO DAILY 10/17/16 08/19/20 History Albuterol Inhaler [Ventolin Hfa 2 puff INHALATION RT-QID PRN 12/30/19 08/19/20 History Inhaler] Ascorbic Acid [Vitamin C] 2,000 mg PO HS 07/13/20 08/19/20 History Cholecalciferol [Vitamin D3 (25 2,000 unit PO HS 07/13/20 08/19/20 History Mcg = 1000 Iu)] Ipratropium-Albuterol Nebulize 3 ml INHALATION RT-QID PRN 07/13/20 08/19/20 History [Duoneb 0.5 mg-3 mg/3 ml Soln] Aspirin 81 mg PO HS chew 08/11/20 08/19/20 Rx Metoprolol Succinate (ER) [Toprol 25 mg PO DAILY #30 tab.er.24h 08/11/20 08/19/20 Rx XL] Levofloxacin [Levaquin] 250 mg PO DAILY 08/19/20 08/19/20 History Ondansetron [Zofran] 4 mg PO QID PRN 08/19/20 08/19/20 History Allergies Allergy/AdvReac Type Severity Reaction Status Date / Time No Known Allergies Allergy Verified 08/19/20 10:37 Physical Exam Vitals: Vital Signs Temp Pulse Pulse Resp BP BP Pulse Ox 08/20/20 07:40 101 H 08/20/20 07:00 114 H 15 98/71 96 08/20/20 06:00 106 H 28 H 98/71 97 08/20/20 05:00 103 H 22 88/72 96 08/20/20 04:00 98.3 F 96 90 17 91/72 96 08/20/20 03:00 96 25 H 102/75 97 08/20/20 02:00 101 H 18 88/62 95 08/20/20 01:00 92 69 H 95/65 97 08/20/20 00:30 91 18 95/59 97 08/20/20 00:00 97.7 F 91 18 98/66 97 08/19/20 23:45 91 20 107/64 97 08/19/20 23:30 90 18 94/62 97 08/19/20 22:00 92 108/89 96 08/19/20 21:00 97.8 F 88 19 82/60 96 08/19/20 20:55 86 08/19/20 20:39 86 08/19/20 20:00 93 92 19 88/54 96 08/19/20 19:00 93 19 93/55 96 08/19/20 18:59 98 18 87/55 94 L 08/19/20 17:00 100 16 100/59 98 08/19/20 16:45 77/65 08/19/20 16:30 99.1 F 100 16 90/52 96 08/19/20 16:00 98.9 F 111 H 21 95 08/19/20 15:41 100 20 94/56 95 08/19/20 15:18 100 19 94/56 95 08/19/20 15:07 101 H 22 67/40 93 L 08/19/20 14:30 106 H 17 91/56 98 08/19/20 14:22 106 H 18 87/54 96 08/19/20 14:00 105 H 20 84/53 96 08/19/20 13:00 108 H 17 111/85 96 08/19/20 12:30 114 H 18 80/51 96 08/19/20 12:00 116 H 22 81/53 95 08/19/20 11:15 98.8 F 118 H 22 100/60 93 L 08/19/20 10:00 126 H 24 144/106 92 L 08/19/20 09:30 129 H 28 H 131/104 93 L 08/19/20 09:02 98.9 F 118 H 22 123/106 93 L Intake and Output 08/19/20 08/20/20 08/20/20 22:59 06:59 14:59 Intake Total 780 1170 Output Total 615 1045 Balance 165 125 Intake: IV 780 1170 Sodium Chloride 0.9% 1, 780 1170 000 ml @ 130 mls/hr IV . Q7H42M [facility] Rx#:[id number] Output: Urine 615 1045 Other: Voiding Method Indwelling Catheter Indwelling Catheter On examination is awake alert oriented comfortable. He is in normal sinus rhythm. Blood pressure is in the 90s to 80s systolic warm and well-perfused and comfortable HEENT exam no JVP neck is supple no facial asymmetry Lungs are significant for bilateral occasional wheezing diminished air sounds bilaterally Heart sounds unremarkable for any murmur rub gallop Abdomen soft nontender no organomegaly ascites masses noted Section exam was no edema this chronic rash on his left leg below his knee and he says his had it for a long time. Neurologically awake alert oriented Results - Lab Results Most recent lab results ABG pH 7.42 (7.35-7.45) 08/19/20 10:31 ABG pCO2 36 mmHg (35-45) 08/19/20 10:31 ABG pO2 80 mmHg (83-108) L 08/19/20 10:31 ABG HCO3 23 mmol/L (21-25) 08/19/20 10:31 ABG O2 Saturation 96.2 % (94-97) 08/19/20 10:31 Calcium 8.0 mg/dL (8.4-10.2) L 08/20/20 03:20 Magnesium 1.6 mg/dL (1.6-2.3) 08/19/20 09:26 08/20/20 03:20 08/20/20 03:20 Assessment and Plan Assessment: Impression 1. Recent acute kidney injury with a creatinine of 7 on 08/08/2020 during his last admission. Currently his creatinine is down to 1. There is some risk of dye induced ATN from the computed tomography scan that was performed yesterday but as of this morning his making good amount of urine. 2. Hypotension, possibly related to sepsis and pneumonia but he looks cli nically very stable although blood pressure is 80s and requiring small doses of levo fed 3. Mild degree of non-gap acidosis, bicarb is 20 and gap is 9 possibly related to normal saline that is getting 4. Chronic rheumatoid arthritis with rheumatoid lungs and empyema. 5. Hypothyroidism TSH is 14 free T4 though is normal at 2.19 Recommendation 1. Change IV fluids to lactated Ringer's because of the acidosis. 2. Try to wean off of levo fed 3. Review thyroid function 4. Check serum cortisol as he might have been on steroids in the past
[2020-08-20] MEDS ORDERED: Potassium Replacement Protocol 1 EACH MISC MISCELLANE PRN (09:28)
[2020-08-20] MEDS: CEFEPIME 2 GM in SODIUM CHLORIDE 0.9% 100 ML IVPB SCH ×2 (09:34→20:22)
[2020-08-20] MEDS: PANTOPRAZOLE 40 MG/10 ML VIAL IVP SCH (09:34)
[2020-08-20] MEDS: LACTATED RINGERS 1,000 ML IV SCH ×2 (09:34→17:08)
[2020-08-20] MEDS: ACETAMINOPHEN TAB 325 MG TAB PO PRN (09:36)
--- NOTE | 2020-08-20 12:12 | P.PN ---
Subjective Progress Note Date: 08/20/20 Principal diagnosis: Acute hypoxic respiratory failure secondary to sepsis, septic shock 60-year-old white male patient, with past medical history of rheumatoid arthritis, previous history of rheumatoid lung disease on Arava, previous episodes of pneumonia and history of loculated empyema requiring chest tube placement back in January 2020 with pleural fluid cultures positive for streptococcal pneumonia. Other medical history includes hypertension, hypothyroidism and previous history of DVT. Patient had a recent hospitalization from August 08 through 08/11/2020 hypotension, dehydration related to nausea vomiting diarrhea, acute kidney injury. Patient received antibiotics in the form of Zosyn and Levaquin for possibility of pneumonia, he is chest x-ray showed cranial perihilar pulmonary infiltrates with increased interstitial changes at the lung bases and was thought to be related to a combination of rheumatoid lung and chronic scarring. His last CT of the chest was on 07/19/2020 showing chronic changes to lower lungs, persistent irregular thick-walled pleural spaces in the posterior lung bases containing fluid and air with adjacent anterior lung with chronic consolidation or atelectasis. On 08/19/2020 patient came into the emergency department from Dr. GENE Carias's office where he was being seen for a regular follow-up appointments. He was noted to have low pulse ox 70s and was sent in to the emergency department for evaluation. He has been having cough with yellow and sometimes blood-tinged sputum, appears amounts, denies any fever, COVID 19 was found to be negative, chest x-ray showed perihilar and basilar infiltrates without significant change from previous chest x-ray on 08/09/2020. Lab data showed leukocytosis with white blood cell count of 19.1, hemoglobin of 12.1, INR 1.5, sodium is 135, potassium is 3.9, chloride is 102, CO2 is 19, creatinine is 1.32, which has actually improved since his discharge from the hospital on 08/11/2020 when he was at 1.84. Lactic acid was elevated at 3.7, patient was given a total of 2 L in fluid boluses, troponin was negative at less than 0.012. Urinalysis showed no evidence of infection. CT chest showed thick-walled pleural cavities posteriorly in the lower lungs with left-sided air-fluid level with left-sided pleural fluid diminished most recent CT from 07/19/2020. There is associated compressive atelectasis and/or chronic consolidation. Persistent as it is lobe fissure, multifocal areas of reticular nodular opacity in the upper lungs remain present with slight nodularity in the left upper lobe. There is a focal consolidation improved from most recent study with some residual areas of scarring. We will emergency department patient became hypotensive with a blood pressure in the 70s, slightly tachycardic remains in sinus mechanism, he is receiving his third liter bolus, his lactic acid did respond and improved he was started on antibiotics in the form of Zosyn and vancomycin The patient is seen today August 20 2020 in the intensive care unit. He is currently sitting up in a chair at the bedside. Awake and alert in no acute distress. Maintaining O2 saturations in the 90s on 2 L/m per nasal cannula. He did require a small dose of norepinephrine currently on 0.05 mcg/kg/m. He has lactated Ringer's at 100 MLS per hour. He remains on vancomycin and cefepime. Chest x-ray continues to show the left lower lobe effusion. White count 11.7. Hemoglobin 9.7. Sodium 135. Potassium 3.6. Creatinine 1.00. Blood cultures reveal no growth to date. Objective - Vital Signs Vital signs: Vital Signs Temp 98.3 F 08/20/20 04:00 Pulse 101 H 08/20/20 07:40 Resp 15 08/20/20 07:00 BP 98/71 08/20/20 07:00 Pulse Ox 96 08/20/20 07:00 Intake & Output 08/19/20 08/20/20 08/20/20 18:59 06:59 18:59 Intake Total 390 1560 Output Total 315 1345 Balance 75 215 Weight 95.254 kg 95.254 kg Intake: IV 390 1560 Sodium Chloride 0.9% 1, 390 1560 000 ml @ 130 mls/hr IV . Q7H42M [facility] Rx#:[id number] Output: Urine 315 1345 Other: Voiding Method Indwelling Catheter - Exam GENERAL EXAM: Alert, pleasant, 60-year-old male patient, on 2 L nasal cannula with a pulse ox of 96%, currently sitting up in chair at the bedside, comfortable in no apparent distress. HEAD: Normocephalic/atraumatic. EYES: Normal reaction of pupils, equal size. Conjunctiva pink, sclera white. NOSE: Clear with pink turbinates. THROAT: No erythema or exudates. NECK: No masses, no JVD, no thyroid enlargement, no adenopathy. CHEST: No chest wall deformity. Symmetrical expansion. LUNGS: Equal air entry with bibasilar crackles CVS: Regular rate and rhythm, normal S1 and S2, no gallops, no murmurs, no rubs ABDOMEN: Soft, nontender. No hepatosplenomegaly, normal bowel sounds, no guarding or rigidity. EXTREMITIES: No clubbing, no edema, no cyanosis, 2+ pulses and upper and lower extremities. MUSCULOSKELETAL: Muscle strength and tone normal. SPINE: No scoliosis or deformity SKIN: No rashes CENTRAL NERVOUS SYSTEM: Alert and oriented -3. No focal deficits, tone is normal in all 4 extremities. PSYCHIATRIC: Alert and oriented -3. Appropriate affect. Intact judgment and insight. - Labs CBC & Chem 7: 08/20/20 03:20 08/20/20 03:20 Labs: Abnormal Lab Results - Last 24 Hours (Table) 08/19/20 08/20/20 08/20/20 Range/Units 12:50 03:20 03:20 WBC 11.7 H (3.8-10.6) k/uL RBC 3.67 L (4.30-5.90) m/uL Hgb 9.7 L D (13.0-17.5) gm/dL Hct 32.5 L (39.0-53.0) % MCHC 29.7 L (31.0-37.0) g/dL RDW 17.0 H (11.5-15.5) % Neutrophils # 8.7 H (1.3-7.7) k/uL Sodium 135 L (137-145) mmol/L Carbon Dioxide 20 L (22-30) mmol/L Calcium 8.0 L (8.4-10.2) mg/dL Ur Specific [place] >1.050 H (1.001-1.035) Urine Protein Trace H (Negative) Assessment and Plan Assessment: 1 Acute hypoxic respiratory failure related to sepsis, septic shock, related to pneumonia, with chronic loculated effusions, rule out possibility of empyema. COVID 19 was ruled out per PCR 2 Recent admission to the hospital for hypotension, dehydration related to nausea vomiting diarrhea, acute kidney injury 3 Recurrent pulmonary infections, with history of streptococcal pneumonia and empyema requiring chest tube placement in January 2020 4 Chronic loculated pneumothoraces, posterior, with air-fluid level seen on the CT imaging of the chest, the possibility of trapped lung, chronic scarring and possibility of empyema needs to be ruled out 5 Elevated d-dimer with no CT evidence for pulmonary embolism 6 History of rheumatoid arthritis and rheumatoid lung disease on Arava 7 Recent history of acute kidney injury, and admission lab work today shows improvement in his renal function 8 Hypertension 9 Hypothyroidism 10 Previous history of foot infections requiring antibiotics 11 Previous history of DVT Plan: Titrate down the norepinephrine as tolerated Continuous lactated Ringer's at 100 MLS per hour Continue vancomycin and cefepime for now Possible ultrasound-guided diagnostic thoracentesis of the left lung effusion by interventional radiology on Saturday May require VATS procedure pleural fluid is infectious We will continue to follow.
[2020-08-20] MEDS: HYDROcodone/APAP 5-325MG 1 EACH TAB PO PRN ×2 (13:35→20:18)
--- NOTE | 2020-08-20 14:26 | P.PN ---
Subjective Progress Note Date: 08/20/20 This is a 60-year-old male patient requesting my service with past medical history of rheumatoid arthritis on Arava that was diagnosed when he was 37 year old initially was started on Methotrexate that he could not tolerate then placed on Embrel but he developed side effects and finally was tried on Humira injection but he developed neurologic sided effects and was hospitaized at [facility] for quiet some time, rheumatoid lung disease, previous history of loculated empyema with chest tube placement in January 2020, hypertension, hypothyroidism, history of DVT, remote history of tobacco use and dependence, was recently hospitalized at [facility] after he was admitted for an acute kidney injury with significant metabolic acidosis associated with the elevated creatinine and elevated BUN and hypotension at that time he was seen and evaluated by pulmonary and critical care medicine, he had a central line placed and at that time, he was placed on Levophed drip he was p laced on IV anabiotic as well but the patient recovered very fast and he had an echocardiogram that showed normal LV function and segmental hypokinesia, he was supposed to follow-up with Dr. 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 today and he had an episode when he was dizzy lightheaded and an episode of vomiting as well and he was sent to the emergency department for evaluation had a computed tomography of the chest as well as abdomen and pelvis that showed a thick walled pleural cavities posteriorly in the lower lungs with left-sided air-fluid level that has diminished in size from the prior computed tomography scan when he was in the hospital a few weeks back there is also associated compressive atelectasis and chronic consultation with multifocal areas of reticular nodular opacity in the upper lungs with a slight nodularity of the left upper lobe again this area of focal consultation has improved from the previous study that was done few weeks ago, patient was started on IV antibiotic with vancomycin and Zosyn as well as IV fluid, he was seen in consultation by pulmonary critical care in the emergency department as the patient blood pressure dropped and that he'll be transferred to the intensive care unit at this point in time I had long conve rsation with the patient and his at the bedside and the patient may need to have a chest tube placed for his possible right empyema, he did receive 3 L normal saline in the ER, and his blood pressure is marginal he may need to go on pressors if not recovered. 08/20:patient is sitting up in chair feeling about the same , complains of increased pain in the righ elbow, was seen earlier by pulmonary and the plan was to go for US-Guided left thoracenthesis due to to loculated left pleural effu unique and possible empyema, may need VATS, he denies any chest pain or shortness of breath, no abdominal pain nausea, vomiting or diarrhea, still have diarrhea negative for C.Diff, he seems to have accept to stay in the hospital this time as long as he needed to. Objective - Vital Signs Vital signs: Vital Signs Temp 98.3 F 08/20/20 04:00 Pulse 101 H 08/20/20 07:40 Resp 15 08/20/20 07:00 BP 98/71 08/20/20 07:00 Pulse Ox 96 08/20/20 07:00 Intake & Output 08/19/20 08/20/20 08/20/20 18:59 06:59 18:59 Intake Total 390 1560 Output Total 315 1345 Balance 75 215 Weight 95.254 kg 95.254 kg Intake: IV 390 1560 Sodium Chloride 0.9% 1, 390 1560 000 ml @ 130 mls/hr IV . Q7H42M [facility] Rx#:[id number] Output: Urine 315 1345 Other: Voiding Method Indwelling Catheter - Exam Review of Systems Constitutional: Reports anorexia, Reports chronic pain, Reports fatigue, Reports weakness, Reports weight loss Eyes: denies blurred vision, denies bulging eye, denies decreased vision, denies diplopia Ears, nose, mouth and throat: Denies dysphagia, Denies neck lump, Denies sore throat Respiratory: Reports dyspnea, Reports respiratory infections, Denies congestion, Denies cough with sputum, Denies home oxygen, Denies sleep apnea, Denies snoring, Denies wheezing Gastrointestinal: Reports bloating, Reports change in bowel habits, Reports diarrhea, Reports early satiety, Reports indigestion, Reports loss of appetite, Reports nausea, Reports vomiting, Denies abdominal pain, Denies belching, Denies heartburn, Denies hematemesis, Denies hematochezia, Denies melena Genitourinary: Denies dysuria, Denies nocturia Musculoskeletal: Denies myalgias Musculoskeletal: absent: ankle pain, ankle stiffness, ankle swelling, elbow pain, elbow stiffness, elbow swelling, foot pain, foot stiffness, foot swelling, hand pain, hand stiffness, hand swelling, hip pain, hip stiffness, hip swelling, knee pain, knee stiffness, knee swelling, shoulder pain, shoulder stiffness, shoulder swelling, wrist pain, wrist stiffness, wrist swelling Integumentary: Denies pruritus, Denies rash Neurological: Denies numbness, Denies weakness Psychiatric: Denies anxiety, Denies depression Endocrine: Denies fatigue, Denies weight change Physical examination: General: patient is 60 year old lying down in bed in moderate distress. HEENT: head ia atraumatic normocephalic, Pupils were equal round reactive to light and accommodations , extra ocular muscle movement were intact, mucous membranes of the mouth are somewhat dry. Neck: supple no JVP.' Chest: decreased breath sounds at he bases with few ronchi no expiratory wheezes no chest wall tendernes or intercostal retractions. Heart: first heart sound is depressed, second heart sound is normal tachycardic there is BIRD 2/6 located at the left sternal border. Abdomen: soft, mild tenderness to the left lower quadrant positive bowel sounds, no guarding or rebound tenderness, no hepatosplenomegaly. Extremities: there is no edema or calf tenderness DP+ 2 Bilaterally, there is what appears to be a charcot joint in the right foot form arch collapse. Neurologic examination: patient is awake , alert and oriented X 3 CN II-XII are grossly intact, muscle power 4/5 in bilateral upper and lower extremities, deep tendon reflexes were normal. - Labs CBC & Chem 7: 08/20/20 03:20 08/20/20 03:20 Labs: Abnormal Lab Results - Last 24 Hours (Table) 08/19/20 08/20/20 08/20/20 Range/Units 12:50 03:20 03:20 WBC 11.7 H (3.8-10.6) k/uL RBC 3.67 L (4.30-5.90) m/uL Hgb 9.7 L D (13.0-17.5) gm/dL Hct 32.5 L (39.0-53.0) % MCHC 29.7 L (31.0-37.0) g/dL RDW 17.0 H (11.5-15.5) % Neutrophils # 8.7 H (1.3-7.7) k/uL Sodium 135 L (137-145) mmol/L Carbon Dioxide 20 L (22-30) mmol/L Calcium 8.0 L (8.4-10.2) mg/dL Ur Specific [place] >1.050 H (1.001-1.035) Urine Protein Trace H (Negative) Microbiology - Last 24 Hours (Table) 08/19/20 09:26 Blood Culture - Preliminary Blood No Growth after 24 hours Assessment and Plan Assessment: Assessment and plan: 1. Acute hypoxemic respiratory failure secondary to loculated left-sided pleural effusion and possible empyema with what appears to be recurrent pneumonia. Patient was admitted to the intensive care unit, he was started on IV fluid resuscitation, he is on small dose of Levophed, continue IV antibiotic in the form of vancomycin and cefepime, ID consultation, also interventional ra diology consultation for possible ultrasound-guided thoracentesis of the left loculated pleural fluid for Gram stain and culture as well as LDH protein as well as pH for possible empyema with thoracic surgery consultation for possible VATS versus decortication and chest tube placement. 2. Lactic acidosis. Continue IV fluid resuscitation, continue with IV antibiotic vancomycin and cefepime, repeat lactic acid is back to normal. 3. Sepsis with septic shock. Continue IV fluid resuscitation, continue IV antibiotic, try to wean Levothroid drip to keep his mean greater than 65 mmHg. 4. Acute kidney injury due to poor oral intake of fluid as well as hypotension with acute tubular necrosis. Continue IV fluid, continue to monitor the patient CMP continue to monitor urine output. 5. Leukocytosis secondary to severe sepsis. Continue IV fluid, continue IV antibiotic, repeat CBC tomorrow morning. 6. Rheumatoid arthritis and rheumatoid lung. Arava and Xeljanz had been on hold since April 7. History of empyema with Streptococcus requiring chest tube. His is a similar scenario may need a cardiothoracic surgery consultation. 8. Hypertension and hypertensive cardiovascular disease. currently hypotensive . Continue the IV fluid currently as well as IV pressors if needed 9. Hypothyroidism . we will continue with Synthroid 150 mcg orally daily. 10. DVT prophylaxis. we will start Lovenox 40 mg SC daily and bilateral knee high Cecilio Hose 11. GI prophylaxis. we will continue with Protonix 40 mg IVP daily. 12. Prognosis continues to be guarded.
--- NOTE | 2020-08-20 18:22 | PN ---
PROGRESS NOTE DATE OF SERVICE: 08/20/2020 REASON FOR FOLLOWUP: Pneumonia/empyema. INTERVAL HISTORY: The patient is currently afebrile. Breathing slightly comfortably. Denies having any chest pain. Occasional cough. No abdominal pain. No diarrhea. PHYSICAL EXAMINATION: Blood pressure 119/59, pulse of 109. Temperature is 97.9. He is 95% on 2 L nasal cannula. General description is a middle-aged male up in the bed in no distress. Respiratory system: Unlabored breathing, decreased breath sounds at bases. No wheeze. Heart S1, S2. Regular rate and rhythm. Abdomen soft, no tenderness. LABORATORY DATA: Hemoglobin 9.2, white count 11.7, creatinine 1.0. Blood culture so far negative. DIAGNOSTIC IMPRESSION AND PLAN: Patient with admission to the hospital with sepsis with concern for empyema, previous history of streptococcal pneumonia, empyema on the left side with small loculated fluid with plan for CT-guided drainage of it on Saturday. The patient has been unable to provided sputum, covered with cefepime and Vanco, to continue while waiting for condition to stabilize and culture to finalize. Continue supportive care. MMODL / IJN: [id number] /
[2020-08-20] MEDS: CHOLECALCIFEROL 25 MCG (1000 IU) TABLET PO SCH (20:22)
[2020-08-20] MEDS: ASPIRIN 81 MG PO SCH (20:22)
[2020-08-20] MEDS: ASCORBIC ACID 500 MG TAB PO SCH (20:22)
[2020-08-20] MEDS: TRIAMCINOLONE 0.1% CREAM 80 GM TUBE TOPICAL SCH (20:23)
[2020-08-21] MEDS: VANCOMYCIN 1,750 MG in SODIUM CHLORIDE 0.9% 500 ML 500 ML IVPB SCH (00:32)
[2020-08-21] MEDS: HEPARIN SODIUM,PORCINE 5,000 UNIT/ML 1 ML VIAL SQ SCH ×4 (00:32→23:09)
[2020-08-21 04:02] LABS: Anisocytosis Slight; Basophils # (A) 0.1 k/uL (0-0.2); Basophils % (A) 1 %; Eosinophils # (A) 0.5 k/uL (0-0.7); Eosinophils % (A) 4 %; HCT 33.4 % (39.0-53.0); HGB 9.9 gm/dL (13.0-17.5); Hypochromasia Marked; Lymphocytes % (A) 8 %; MCHC 29.5 g/dL (31.0-37.0); MCV 88.1 fL (80.0-100.0); Mean Platelet Volume 8.3; Monocytes # (A) 0.5 k/uL (0-1.0); Monocytes % (A) 4 %; Neutrophils # (A) 10.3 k/uL (1.3-7.7); Neutrophils % (A) 82 %; Platelet Count 269 k/uL (150-450); RBC 3.79 m/uL (4.30-5.90); RDW 16.8 % (11.5-15.5); WBC 12.5 k/uL (3.8-10.6)
[2020-08-21] MEDS: LACTATED RINGERS 1,000 ML IV SCH ×2 (04:03→08:32)
[2020-08-21] MEDS: NOREPINEPHRINE 32 MG in SODIUM CHLORIDE 0.9% 218 ML IV SCH (04:03)
[2020-08-21 04:13] LABS: African American GFR (CKD) >90 (>60 ml/min/1.73 sqM); Anion Gap 8 mmol/L; Blood Urea Nitrogen 4 mg/dL (9-20); Calcium 8.4 mg/dL (8.4-10.2); Carbon Dioxide 21 mmol/L (22-30); Chloride 108 mmol/L (98-107); Glucose 107 mg/dL (74-99); Non-African American GFR(CKD) >90 (>60 ml/min/1.73 sqM); Potassium 3.5 mmol/L (3.5-5.1); Sodium 137 mmol/L (137-145)
[2020-08-21] MEDS: LEVOTHYROXINE 75 MCG TAB PO SCH (06:45)
[2020-08-21] MEDS: POTASSIUM CHLORIDE ER 20 MEQ TAB.ER PO SCH ×2 (06:45→08:31)
--- NOTE | 2020-08-21 07:24 | XR ---
EXAMINATION TYPE: XR chest 1V portable DATE OF EXAM: 08/21/2020 COMPARISON: Chest x-ray 08/20/2020 HISTORY: Shortness of breath TECHNIQUE: Single frontal view of the chest is obtained. FINDINGS: No significant interval change. IMPRESSION: Chronic findings, difficult to exclude pneumonia, empyema
[2020-08-21] MEDS: IPRATROPIUM-ALBUTEROL 3 ML NEB INHALATION SCH ×3 (07:26→19:43)
[2020-08-21] MEDS: HYDROcodone/APAP 5-325MG 1 EACH TAB PO PRN ×3 (08:31→23:14)
[2020-08-21] MEDS: PANTOPRAZOLE 40 MG/10 ML VIAL IVP SCH (08:32)
[2020-08-21] MEDS: TRIAMCINOLONE 0.1% CREAM 80 GM TUBE TOPICAL SCH ×2 (08:32→20:03)
[2020-08-21] MEDS: CEFEPIME 2 GM in SODIUM CHLORIDE 0.9% 100 ML IVPB SCH ×2 (08:32→20:01)
[2020-08-21] MEDS ORDERED: FUROSEMIDE 10 MG/ML 2 ML VIAL IV ONE (08:51)
[2020-08-21] MEDS: HYDROCORTISONE SUCCINATE 100 MG/2 ML VIAL IV SCH ×3 (08:58→23:09)
--- NOTE | 2020-08-21 10:15 | P.PN ---
Subjective Progress Note Date: 08/21/20 Principal diagnosis: This is a 60-year-old male seen in consultation because of acute kidney injury. He was admitted because of shortness of breath and hypotension. He had recently severe acute kidney injury because of nausea vomiting diarrhea and was admitted here and discharged on 08/11/2020. creatinine was 7.63 as of 08/08/2020. He was discharged on 08/11/2020. His creatinine on the day of discharge on 08/11/2020 was 1.84. He was admitted 08/19/2020, and creatinine had improved to 1.32 He had a computed tomography scan with dye, and his creatinine and urine output has been normal. He continues to have cough. He has empyema and is going for a chest tube drainage He remains comfortable, has a Meraz catheter which can come out and off on levo fed because of blood pressure tending to be low but he is well-perfused and seems that by his creatinine is renal perfusion is adequate Currently he denies any nausea vomiting appetite is returning no diarrhea. No fever chills. Does have shortness of breath and mild cough. His past history significant for chronic rheumatoid arthritis with rheumatoid lung on multiple immunosuppressive medications, recently had empyema had chest tube. Also known with hypertension. Objective - Vital Signs Vital signs: Vital Signs Temp 98.1 F 08/21/20 04:00 Pulse 115 H 08/21/20 07:00 Resp 12 08/21/20 07:00 BP 113/63 08/21/20 07:00 Pulse Ox 94 L 08/21/20 07:00 Intake & Output 08/20/20 08/21/20 08/21/20 18:59 06:59 18:59 Intake Total 6348.109 1532.933 475 Output Total 510 1125 325 Balance 1139.042 357.933 150 Weight 95.254 kg Intake: IV 1610 1475 475 Cefepime 2 gm In Sodium 100 100 100 Chloride 0.9% 100 ml @ 25 mls/hr IVPB Q12HR [facility] Rx #:[id number] Lactated Ringers 1,000 ml 750 1375 375 @ 125 mls/hr IV .Q8H [facility] Rx#:[id number] Sodium Chloride 0.9% 1, 260 000 ml @ 130 mls/hr IV . Q7H42M [facility] Rx#:[id number] Vancomycin 1,750 mg In 500 Sodium Chloride 0.9% 500 ml 500 ml @ 167 mls/hr IVPB Q[facility]H [facility] Rx#: [id number] Intake, IV Titration 39.042 7.933 Amount Norepinephrine 32 mg In 39.042 7.933 Sodium Chloride 0.9% 218 ml @ 0.05 MCG/KG/MIN 2. 233 mls/hr IV .Q24H [facility] Rx#:[id number] Output: Urine 510 1125 325 Other: Voiding Method Indwelling Catheter Indwelling Catheter Examination is awake alert oriented comfortable HEENT exam no JVP neck no masses noted Lungs Are significant with with bilateral wheezing on expiration and some diminished breath sounds at the bases. Heart sounds are unremarkable for any murmur rub gallop Abdomen soft nontender Extremity exam was no edema Neurologically awake alert oriented - Labs CBC & Chem 7: 08/21/20 03:39 08/21/20 03:39 Labs: Abnormal Lab Results - Last 24 Hours (Table) 08/21/20 08/21/20 Range/Units 03:39 03:39 WBC 12.5 H (3.8-10.6) k/uL RBC 3.79 L (4.30-5.90) m/uL Hgb 9.9 L (13.0-17.5) gm/dL Hct 33.4 L (39.0-53.0) % MCHC 29.5 L (31.0-37.0) g/dL RDW 16.8 H (11.5-15.5) % Neutrophils # 10.3 H (1.3-7.7) k/uL Chloride 108 H (98-107) mmol/L Carbon Dioxide 21 L (22-30) mmol/L BUN 4 L (9-20) mg/dL Glucose 107 H (74-99) mg/dL Microbiology - Last 24 Hours (Table) 08/20/20 14:30 Gram Stain - Preliminary Sputum Sputum Culture - Preliminary 08/19/20 13:00 Blood Culture - Preliminary Blood No Growth after 24 hours 08/19/20 09:26 Blood Culture - Preliminary Blood No Growth after 24 hours Assessment and Plan Assessment: Impression 1. Recent acute kidney injury with a creatinine of 7 on 08/08/2020 during his last admission. Currently his creatinine is down to 1. There was some risk of dye induced ATN from the computed tomography scan that was performed on 08/19/2020, but his urine output is good and his creatinine is down to 0.7. 2. Hypotension, possibly related to sepsis and pneumonia but he looks clinically very stable, his blood pressure in the 90s to 110s. He is well perfused, warm to touch and awake and alert 3. Mild degree of non-gap acidosis, bicarb is 20 up to 21 and gap is 9 > 8 - possibly related to normal saline that was getting, IV fluid was changed to lactated Ringer's yesterday 4. Chronic rheumatoid arthritis with rheumatoid lungs and empyema. 5. Hypothyroidism TSH is 14 free T4 though is normal at 2.19, off off Synthroid 6. Possible adrenal insufficiency serum cortisol is 3 Recommendation 1. continue Ringer's lactate. 2. Suggest discontinue Meraz catheter may use it [place] catheter 3. Suggest discontinue levo fed 4. Review thyroid function, he is off of Synthroid that he was taking 150 g as an outpatient per patient 4. check ACTH simulation test
[2020-08-21] MEDS ORDERED: VANCOMYCIN TROUGH DUE 1 EACH MISC MISCELLANE ONE (11:00)
--- NOTE | 2020-08-21 11:08 | P.PN ---
Subjective Progress Note Date: 08/21/20 This is a 60-year-old male patient requesting my service with past medical history of rheumatoid arthritis on Arava that was diagnosed when he was 37 year old initially was started on Methotrexate that he could not tolerate then placed on Embrel but he developed side effects and finally was tried on Humira injection but he developed neurologic sided effects and was hospitaized at [facility] for quiet some time, rheumatoid lung disease, previous history of loculated empyema with chest tube placement in January 2020, hypertension, hypothyroidism, history of DVT, remote history of tobacco use and dependence, was recently hospitalized at [facility] after he was admitted for an acute kidney injury with significant metabolic acidosis associated with the elevated creatinine and elevated BUN and hypotension at that time he was seen and evaluated by pulmonary and critical care medicine, he had a central line placed and at that time, he was placed on Levophed drip he was p laced on IV anabiotic as well but the patient recovered very fast and he had an echocardiogram that showed normal LV function and segmental hypokinesia, he was supposed to follow-up with Dr. 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 and he had an episode when he was dizzy lightheaded and an episode of vomiting as well and he was sent to the emergency department for evaluation had a computed tomography of the chest as well as abdomen and pelvis that showed a thick walled pleural cavities posteriorly in the lower lungs with left-sided air-fluid level that has diminished in size from the prior computed tomography scan when he was in the hospital a few weeks back there is also associated compressive atelectasis and chronic consultation with multifocal areas of reticular nodular opacity in the upper lungs with a slight nodularity of the left upper lobe again this area of focal consultation has improved from the previous study that was done few weeks ago, patient was started on IV antibiotic with vancomycin and Zosyn as well as IV fluid, he was seen in consultation by pulmonary critical care in the emergency department as the patient blood pressure dropped and that he'll be transferred to the intensive care unit at this point in time I had long conve rsation with the patient and his at the bedside and the patient may need to have a chest tube placed for his possible right empyema, he did receive 3 L normal saline in the ER, and his blood pressure is marginal he may need to go on pressors if not recovered. 08/20:patient is sitting up in chair feeling about the same , complains of increased pain in the righ elbow, was seen earlier by pulmonary and the plan was to go for US-Guided left thoracenthesis due to to loculated left pleural effu unique and possible empyema, may need VATS, he denies any chest pain or shortness of breath, no abdominal pain nausea, vomiting or diarrhea, still have diarrhea negative for C.Diff, he seems to have accept to stay in the hospital this time as long as he needed to. 08/21: Patient sitting up in the recliner complaining of increased pain in his joints due to his rheumatoid arthritis with increased synovitis in both wrists both elbows and both shoulders he was started on hydrocortisone 100 mg IV push every 8 hours, to try to help with his blood pressure as well as his phonation, he is maintained on Pioneer 5/325 mg one tablet orally every 6 hours as needed for pain control, patient denies any chest pain is less short of breath, he continues to have increased coughing with yellow from production of green phlegm production, he had no fever or chills at this time he continues to be on Levothroid drip, patient has appeared to have increased swelling in both lower extremities as well as both ankles, he is maintained on IV antibiotic in the form of vancomycin as well as cefepime, infectious disease is following, patient is scheduled to go for ultrasound guidance thoracentesis of the left loculated pleural effusion tomorrow morning. Objective - Vital Signs Vital signs: Vital Signs Temp 98.1 F 08/21/20 04:00 Pulse 115 H 08/21/20 07:00 Resp 12 08/21/20 07:00 BP 113/63 08/21/20 07:00 Pulse Ox 94 L 08/21/20 07:00 Intake & Output 08/20/20 08/21/20 08/21/20 18:59 06:59 18:59 Intake Total 8129.838 1561.933 475 Output Total 510 1125 325 Balance 1139.042 357.933 150 Weight 95.254 kg Intake: IV 1610 1475 475 Cefepime 2 gm In Sodium 100 100 100 Chloride 0.9% 100 ml @ 25 mls/hr IVPB Q12HR [facility] Rx #:[id number] Lactated Ringers 1,000 ml 750 1375 375 @ 125 mls/hr IV .Q8H [facility] Rx#:[id number] Sodium Chloride 0.9% 1, 260 000 ml @ 130 mls/hr IV . Q7H42M [facility] Rx#:[id number] Vancomycin 1,750 mg In 500 Sodium Chloride 0.9% 500 ml 500 ml @ 167 mls/hr IVPB Q12H [facility] Rx#: [id number] Intake, IV Titration 39.042 7.933 Amount Norepinephrine 32 mg In 39.042 7.933 Sodium Chloride 0.9% 218 ml @ 0.05 MCG/KG/MIN 2. 233 mls/hr IV .Q24H [facility] Rx#:[id number] Output: Urine 510 1125 325 Other: Voiding Method Indwelling Catheter Indwelling Catheter - Exam Review of Systems Constitutional: Reports anorexia, Reports chronic pain, Reports fatigue, Reports weakness, Reports weight loss Eyes: denies blurred vision, denies bulging eye, denies decreased vision, denies diplopia Ears, nose, mouth and throat: Denies dysphagia, Denies neck lump, Denies sore throat Respiratory: Reports dyspnea, Reports respiratory infections, Denies congestion, Denies cough with sputum, Denies home oxygen, Denies sleep apnea, Denies snoring, Denies wheezing Gastrointestinal: Reports bloating, Reports change in bowel habits, Reports diarrhea, Reports early satiety, Reports indigestion, Reports loss of appetite, Reports nausea, Reports vomiting, Denies abdominal pain, Denies belching, Denies heartburn, Denies hematemesis, Denies hematochezia, Denies melena Genitourinary: Denies dysuria, Denies nocturia Musculoskeletal: Denies myalgias Musculoskeletal: absent: ankle pain, ankle stiffness, ankle swelling, elbow pain, elbow stiffness, elbow swelling, foot pain, foot stiffness, foot swelling, hand pain, hand stiffness, hand swelling, hip pain, hip stiffness, hip swelling, knee pain, knee stiffness, knee swelling, shoulder pain, shoulder stiffness, shoulder swelling, wrist pain, wrist stiffness, wrist swelling Integumentary: Denies pruritus, Denies rash Neurological: Denies numbness, Denies weakness Psychiatric: Denies anxiety, Denies depression Endocrine: Denies fatigue, Denies weight change Physical examination: General: patient is 60 year old lying down in bed in moderate distress. HEENT: head ia atraumatic normocephalic, Pupils were equal round reactive to light and accommodations , extra ocular muscle movement were intact, mucous membranes of the mouth are somewhat dry. Neck: supple no JVP.' Chest: decreased breath sounds at he bases with few ronchi no expiratory wheezes no chest wall tendernes or intercostal retractions. Heart: first heart sound is depressed, second heart sound is normal tachycardic there is BIRD 2/6 located at the left sternal border. Abdomen: soft, mild tenderness to the left lower quadrant positive bowel sounds, no guarding or rebound tenderness, no hepatosplenomegaly. Extremities: there is no edema or calf tenderness DP+ 2 Bilaterally, there is what appears to be a charcot joint in the right foot form arch collapse. Neurologic examination: patient is awake , alert and oriented X 3 CN II-XII are grossly intact, muscle power 4/5 in bilateral upper and lower extremities, deep tendon reflexes were normal. - Labs CBC & Chem 7: 08/21/20 03:39 08/21/20 03:39 Labs: Abnormal Lab Results - Last 24 Hours (Table) 08/21/20 08/21/20 Range/Units 03:39 03:39 WBC 12.5 H (3.8-10.6) k/uL RBC 3.79 L (4.30-5.90) m/uL Hgb 9.9 L (13.0-17.5) gm/dL Hct 33.4 L (39.0-53.0) % MCHC 29.5 L (31.0-37.0) g/dL RDW 16.8 H (11.5-15.5) % Neutrophils # 10.3 H (1.3-7.7) k/uL Chloride 108 H (98-107) mmol/L Carbon Dioxide 21 L (22-30) mmol/L BUN 4 L (9-20) mg/dL Glucose 107 H (74-99) mg/dL Microbiology - Last 24 Hours (Table) 08/20/20 14:30 Gram Stain - Preliminary Sputum Sputum Culture - Preliminary 08/19/20 13:00 Blood Culture - Preliminary Blood No Growth after 24 hours 08/19/20 09:26 Blood Culture - Preliminary Blood No Growth after 24 hours Assessment and Plan Assessment: Assessment and plan: 1. Acute hypoxemic respiratory failure secondary to loculated left-sided pleural effusion and possible empyema with what appears to be recurrent pneumonia. Patient was admitted to the intensive care unit, he was started on IV fluid resuscitation, he is on small dose of Levophed, continue IV antibiotic in the form of vancomycin and cefepime, ID consultation, also interventional radiology consultation for possible ultrasound-guided thoracentesis of the left loculated pleural fluid for Gram stain and culture as well as LDH protein as well as pH for possible empyema with thoracic surgery consultation for possible VATS versus decortication and chest tube placement. 2. Lactic acidosis. Continue IV fluid resuscitation, continue with IV antibiotic vancomycin and cefepime, repeat lactic acid is back to normal. 3. Sepsis with septic shock. Continue IV fluid resuscitation, continue IV antibiotic, try to wean Levothroid drip to keep his mean greater than 65 mmHg. 4. Acute kidney injury due to poor oral intake of fluid as well as hypotension with acute tubular necrosis. Continue IV fluid, continue to monitor the patient CMP continue to monitor urine output. 5. Leukocytosis secondary to severe sepsis. Continue IV fluid, continue IV antibiotic, repeat CBC tomorrow morning. 6. Rheumatoid arthritis and rheumatoid lung. Arava and Xeljanz had been on hold since April, patient was started on hydrocortisone 100 mg IV push every 8 hours. 7. History of empyema with Streptococcus requiring chest tube. His is a similar scenario may need a cardiothoracic surgery consultation. 8. Hypertension and hypertensive cardiovascular disease. currently hypotensive . Continue the IV fluid currently as well as IV pressors if needed 9. Hypothyroidism . we will continue with Synthroid 150 mcg orally daily. 10. DVT prophylaxis. we will start Lovenox 40 mg SC daily and bilateral knee high Cecilio Hose 11. GI prophylaxis. we will continue with Protonix 40 mg IVP daily. 12. Prognosis continues to be guarded.
[2020-08-21] MEDS: VANCOMYCIN 1,500 MG in SODIUM CHLORIDE 0.9% 250 ML IVPB SCH ×2 (11:55→23:09)
--- NOTE | 2020-08-21 12:14 | P.PN ---
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 Other medical history includes hypertension, hypothyroidism and previous history of DVT. Patient had a recent hospitalization from August 08 through 08/11/2020 hypotension, dehydration related to nausea vomiting diarrhea, acute kidney injury. Patient received antibiotics in the form of Zosyn and Levaquin for possibility of pneumonia, he is chest x-ray showed cranial perihilar pulmonary infiltrates with increased interstitial changes at the lung bases and was thought to be related to a combination of rheumatoid lung and chronic scarring. His last CT of the chest was on 07/19/2020 showing chronic changes to lower lungs, persistent irregular thick-walled pleural spaces in the posterior lung bases containing fluid and air with adjacent anterior lung with chronic consolidation or atelectasis. On 08/19/2020 patient came into the emergency department from Dr. EGNE Carias's office where he was being seen for a regular follow-up appointments. He was noted to have low pulse ox 70s and was sent in to the emergency department for evaluation. He has been having cough with yellow and sometimes blood-tinged sputum, appears amounts, denies any fever, COVID 19 was found to be negative, chest x-ray showed perihilar and basilar infiltrates without significant change from previous chest x-ray on 08/09/2020. Lab data showed leukocytosis with white blood cell count of 19.1, hemoglobin of 12.1, INR 1.5, sodium is 135, potassium is 3.9, chloride is 102, CO2 is 19, creatinine is 1.32, which has actually improved since his discharge from the hospital on 08/11/2020 when he was at 1.84. Lactic acid was elevated at 3.7, patient was given a total of 2 L in fluid boluses, troponin was negative at less than 0.012. Urinalysis showed no evidence of infection. CT chest showed thick-walled pleural cavities posteriorly in the lower lungs with left-sided air-fluid level with left-sided pleural fluid diminished most recent CT from 07/19/2020. There is associated compressive atelectasis and/or chronic consolidation. Persistent as it is lobe fissure, multifocal areas of reticular nodular opacity in the upper lungs remain present with slight nodularity in the left upper lobe. There is a focal consolidation improved from most recent study with some residual areas of scarring. We will emergency department patient became hypotensive with a blood pressure in the 70s, slightly tachycardic remains in sinus mechanism, he is receiving his third liter bolus, his lactic acid did respond and improved he was started on antibiotics in the form of Zosyn and vancomycin The patient is seen today August 20 2020 in the intensive care unit. He is currently sitting up in a chair at the bedside. Awake and alert in no acute distress. Maintaining O2 saturations in the 90s on 2 L/m per nasal cannula. He did require a small dose of norepinephrine currently on 0.05 mcg/kg/m. He has lactated Ringer's at 100 MLS per hour. He remains on vancomycin and cefepime. Chest x-ray continues to show the left lower lobe effusion. White count 11.7. Hemoglobin 9.7. Sodium 135. Potassium 3.6. Creatinine 1.00. Blood cultures reveal no growth to date. Reevaluated today on 08/21/2020, remains in the ICU, still on norepinephrine at 0.04 mcg/kg/m. On LR at 1 25 mL per hour. On vancomycin and cefepime empirically, blood pressure remains marginal, went ahead and recommended Solu- Cortef 100 mg IV push every 8 hours and hopefully will be able to discontinue norepinephrine today. His IV fluid is cut down to KVO. Given 20 mg of Lasix IV push, and I have recommended that we monitor the patient in the ICU for the next 24 hours. Chest x-ray is basically the same, continues to show chronic finding, difficult to exclude underlying pneumonia/empyema. CT of the chest on admission was also reviewed, difficult to rule out underlying empyema. Clinically the patient is feeling better except for generally weak. WBC count is 12.5 hemoglobin is 9.9. Normal renal profile is normal blood cultures are negative so far. Sputum cultures are also negative so far. Objective - Vital Signs Vital signs: Vital Signs Temp 98.2 F 08/21/20 08:00 Pulse 104 H 08/21/20 11:30 Resp 21 08/21/20 11:30 BP 82/52 01/31/21 11:30 Pulse Ox 97 08/21/20 11:30 Intake & Output 08/20/20 08/21/20 08/21/20 18:59 06:59 18:59 Intake Total 5597.584 0978.933 725 Output Total 510 1125 1050 Balance 1139.042 357.933 -325 Weight 95.254 kg 100.7 kg Intake: IV 1610 1475 725 Cefepime 2 gm In Sodium 100 100 100 Chloride 0.9% 100 ml @ 25 mls/hr IVPB Q12HR [facility] Rx #:[id number] Lactated Ringers 1,000 ml 750 1375 625 @ 125 mls/hr IV .Q8H [facility] Rx#:[id number] Sodium Chloride 0.9% 1, 260 000 ml @ 130 mls/hr IV . Q7H42M [facility] Rx#:[id number] Vancomycin 1,750 mg In 500 Sodium Chloride 0.9% 500 ml 500 ml @ 167 mls/hr IVPB Q12H [facility] Rx#: [id number] Intake, IV Titration 39.042 7.933 Amount Norepinephrine 32 mg In 39.042 7.933 Sodium Chloride 0.9% 218 ml @ 0.05 MCG/KG/MIN 2. 233 mls/hr IV .Q24H [facility] Rx#:[id number] Output: Urine 510 1125 1050 Other: Voiding Method Indwelling Catheter Indwelling Catheter Indwelling Catheter - Exam GENERAL EXAM: Alert, pleasant, 60-year-old male patient, on 2 L nasal cannula with a pulse ox of 96%, currently sitting up in chair at the bedside, comf ortable in no apparent distress. HEAD: Normocephalic/atraumatic. EENT: PERRLA, EOMI, nonicteric. Moist mucous membranes, no neck masses, no JVD, no stridor. CHEST: No chest wall deformity. Symmetrical expansion. LUNGS: Bibasilar crackles noted. CVS: Regular rate and rhythm, normal S1 and S2, no gallops, no murmurs, no rubs ABDOMEN: Soft, nontender. No hepatosplenomegaly, normal bowel sounds, no guarding or rigidity. EXTREMITIES: No clubbing, no edema, no cyanosis, 2+ pulses and upper and lower extremities. MUSCULOSKELETAL: Muscle strength and tone normal. SPINE: No scoliosis or deformity SKIN: No rashes CENTRAL NERVOUS SYSTEM: Alert and oriented -3. No focal deficits, tone is normal in all 4 extremities. PSYCHIATRIC: Alert and oriented -3. Appropriate affect. Intact judgment and i nsight. - Labs CBC & Chem 7: 08/21/20 03:39 08/21/20 03:39 Labs: Abnormal Lab Results - Last 24 Hours (Table) 08/21/20 08/21/20 Range/Units 03:39 03:39 WBC 12.5 H (3.8-10.6) k/uL RBC 3.79 L (4.30-5.90) m/uL Hgb 9.9 L (13.0-17.5) gm/dL Hct 33.4 L (39.0-53.0) % MCHC 29.5 L (31.0-37.0) g/dL RDW 16.8 H (11.5-15.5) % Neutrophils # 10.3 H (1.3-7.7) k/uL Chloride 108 H (98-107) mmol/L Carbon Dioxide 21 L (22-30) mmol/L BUN 4 L (9-20) mg/dL Glucose 107 H (74-99) mg/dL Microbiology - Last 24 Hours (Table) 08/20/20 14:30 Gram Stain - Preliminary Sputum Sputum Culture - Preliminary 08/19/20 13:00 Blood Culture - Preliminary Blood No Growth after 24 hours 08/19/20 09:26 Blood Culture - Preliminary Blood No Growth after 24 hours Assessment and Plan Assessment: 1 Acute hypoxic respiratory failure related to sepsis, septic shock, related to pneumonia, with chronic loculated effusions, rule out possibility of empyema. COVID 19 was ruled out per PCR 2 Recent admission to the hospital for hypotension, dehydration related to nausea vomiting diarrhea, acute kidney injury 3 Recurrent pulmonary infections, with history of streptococcal pneumonia and empyema requiring chest tube placement in January 2020 4 Chronic loculated pneumothoraces, posterior, with air-fluid level seen on the CT imaging of the chest, the possibility of trapped lung, chronic scarring and possibility of empyema needs to be ruled out 5 Elevated d-dimer with no CT evidence for pulmonary embolism 6 History of rheumatoid arthritis and rheumatoid lung disease on Arava 7 Recent history of acute kidney injury, and admission lab work today shows improvement in his renal function 8 Hypertension 9 Hypothyroidism 10 Previous history of foot infections requiring antibiotics 11 Previous history of DVT Plan: We will continue to monitor the patient in the ICU as long as he is requiring norepinephrine. Will recommend Solu-Cortef 100 mg IV push every 8 hours, patient is chronically on steroids. And he remains relatively hypotensive this morning. Titrate down the norepinephrine as tolerated possibly discontinue after starting Solu-Cortef. Decrease IV fluid to KVO. Continue vancomycin and cefepime for now Possible ultrasound-guided diagnostic thoracentesis of the left lung effusion by interventional radiology on Saturday. Discussed this option with Dr. Mendez, and he is willing to perform CT-guided or ultrasound-guided thoracentesis of the pocket of fluid on the left side, just to rule out empyema. We will continue to follow. Time with Patient: Less than 30
[2020-08-21] MEDS: NOREPINEPHRINE 4 MG in SODIUM CHLORIDE 0.9% 250 ML IV SCH (17:47)
[2020-08-21] MEDS: ASPIRIN 81 MG PO SCH (20:02)
[2020-08-21] MEDS: ASCORBIC ACID 500 MG TAB PO SCH (20:02)
[2020-08-21] MEDS: CHOLECALCIFEROL 25 MCG (1000 IU) TABLET PO SCH (20:02)
--- NOTE | 2020-08-21 23:09 | PN ---
PROGRESS NOTE DATE OF SERVICE: 08/21/2020 REASON FOR FOLLOWUP: Pneumonia, possible empyema. INTERVAL HISTORY: Patient is currently afebrile. The patient is breathing slightly comfortably. The patient denies having chest pain. He did have a cough with sputum production. No nausea, no vomiting. No abdominal pain. No diarrhea. PHYSICAL EXAMINATION: Blood pressure 92/68, pulse of 100. Temperature 97.5. He is 99% on 2 L nasal cannula. General description is a middle-aged male up in bed in no distress. Respiratory system: Unlabored breathing, decreased breath sounds in the bases. No wheeze. Heart S1, S2. Regular rate and rhythm. ABDOMEN: Soft. No tenderness. LABS: Hemoglobin 9.1, white count 12.5, BUN of 14, creatinine 0.4. Vancomycin trough 23. Sputum cultures pending. Blood culture so far negative. DIAGNOSTIC IMPRESSION AND PLAN: Patient admitted to hospital with sepsis and concern for pneumonia/empyema. Waiting for a CT-guided drainage of that loculated fluid, should be sent for the cultures. The patient is covered with cefepime and Vanco. Kidney function will be monitored closely. Vancomycin dose needs to be adjusted to keep the trough around 15. His questions and concerns were answered. MMODL / IJN: [id number] /
[2020-08-22 04:02] LABS: Anisocytosis Slight; Basophils % (A) 0 %; Eosinophils % (A) 0 %; HCT 28.9 % (39.0-53.0); HGB 8.8 gm/dL (13.0-17.5); Hypochromasia Marked; Lymphocytes # (A) 0.7 k/uL (1.0-4.8); Lymphocytes % (A) 7 %; MCH 26.5 pg (25.0-35.0); MCHC 30.5 g/dL (31.0-37.0); Mean Platelet Volume 8.5; Monocytes # (A) 0.3 k/uL (0-1.0); Monocytes % (A) 2 %; Neutrophils # (A) 9.1 k/uL (1.3-7.7); Neutrophils % (A) 90 %; Platelet Count 271 k/uL (150-450); RBC 3.32 m/uL (4.30-5.90); RDW 16.9 % (11.5-15.5); WBC 10.2 k/uL (3.8-10.6)
[2020-08-22 04:24] LABS: African American GFR (CKD) >90 (>60 ml/min/1.73 sqM); Anion Gap 6 mmol/L; Blood Urea Nitrogen 7 mg/dL (9-20); Calcium 8.6 mg/dL (8.4-10.2); Carbon Dioxide 24 mmol/L (22-30); Chloride 107 mmol/L (98-107); Glucose 127 mg/dL (74-99); Non-African American GFR(CKD) >90 (>60 ml/min/1.73 sqM); Potassium 4.1 mmol/L (3.5-5.1); Sodium 137 mmol/L (137-145)
[2020-08-22] MEDS: LEVOTHYROXINE 75 MCG TAB PO SCH (06:03)
--- NOTE | 2020-08-22 07:54 | P.PN ---
Subjective Patient is seen in follow for acute kidney injury. GFR back to baseline. Off vasopressors. Continues to have diarrhea. Oral intake is slowly improving. Good urine output. Vital signs are stable. General: The patient appeared well nourished and normally developed. HEENT: Head exam is unremarkable. Neck is without jugular venous distension. LUNGS: Breath sounds decreased. HEART: Rate and Rhythm are regular. ABDOMEN: Soft, nontender. EXTREMITITES: 1+ edema. Objective - Vital Signs Vital signs: Vital Signs Temp 98 F 08/22/20 04:00 Pulse 98 08/22/20 06:45 Resp 20 08/22/20 07:00 BP 94/64 08/22/20 07:00 Pulse Ox 96 08/22/20 07:00 Intake & Output 08/21/20 08/22/20 08/22/20 18:59 06:59 18:59 Intake Total 1491.324 902.778 20 Output Total 2115 550 0 Balance -623.676 352.778 20 Weight 100.7 kg Intake: IV 1470 840 20 Cefepime 2 gm In Sodium 100 100 Chloride 0.9% 100 ml @ 25 mls/hr IVPB Q12HR [facility] Rx #:[id number] LR 200 20 Lactated Ringers 1,000 ml 870 40 @ 125 mls/hr IV .Q8H [facility] Rx#:[id number] Vancomycin 1,750 mg In 500 500 Sodium Chloride 0.9% 500 ml 500 ml @ 167 mls/hr IVPB Q12H [facility] Rx#: [id number] Intake, IV Titration 21.324 62.778 Amount Norepinephrine 32 mg In 21.324 Sodium Chloride 0.9% 218 ml @ 0.05 MCG/KG/MIN 2. 233 mls/hr IV .Q24H [facility] Rx#:[id number] Norepinephrine 4 mg In 62.778 Sodium Chloride 0.9% 250 ml @ 0.05 MCG/KG/MIN 17. 86 mls/hr IV .Q14H [facility] Rx #:[id number] Output: Urine 2115 550 0 Other: Voiding Method Indwelling Catheter Indwelling Catheter # Voids 1 # Bowel Movements 1 - Labs CBC & Chem 7: 08/22/20 03:14 08/22/20 03:14 Labs: Abnormal Lab Results - Last 24 Hours (Table) 08/22/20 08/22/20 Range/Units 03:14 03:14 RBC 3.32 L (4.30-5.90) m/uL Hgb 8.8 L (13.0-17.5) gm/dL Hct 28.9 L (39.0-53.0) % MCHC 30.5 L (31.0-37.0) g/dL RDW 16.9 H (11.5-15.5) % Neutrophils # 9.1 H (1.3-7.7) k/uL Lymphocytes # 0.7 L (1.0-4.8) k/uL BUN 7 L (9-20) mg/dL Glucose 127 H (74-99) mg/dL Microbiology - Last 24 Hours (Table) 08/19/20 13:00 Blood Culture - Preliminary Blood No Growth after 48 hours 08/19/20 09:26 Blood Culture - Preliminary Blood No Growth after 48 hours 08/20/20 14:30 Gram Stain - Preliminary Sputum Sputum Culture - Preliminary Assessment and Plan Plan: Assessment: 1. Acute kidney injury mostly prerenal secondary to intravascular volume depletion and hypotension, improved with IV hydration. GFR back to baseline. 2. Pneumonia maintained on antibiotics. ? Empyema. 3. Septic shock secondary to pneumonia. Off vasopressors. On antibiotics. 4. History of rheumatoid arthritis. 5. Hypotension mostly secondary to sepsis. Cortisol level was also low. He is currently on Solu-Cortef. ACTH stimulation test will not be accurate at this time as he is on Solu-Cortef. 6. Diarrhea. C. diff negative. Plan: Encourage oral intake. Off IV fluids. Add midodrine. Continue to monitor renal function and urine output. Patient did receive IV contrast on August 19.
[2020-08-22] MEDS: IPRATROPIUM-ALBUTEROL 3 ML NEB INHALATION SCH ×3 (08:24→19:36)
[2020-08-22] MEDS: HYDROCORTISONE SUCCINATE 100 MG/2 ML VIAL IV SCH ×2 (08:33→16:45)
[2020-08-22] MEDS: HEPARIN SODIUM,PORCINE 5,000 UNIT/ML 1 ML VIAL SQ SCH ×2 (08:33→16:47)
--- NOTE | 2020-08-22 08:33 | XR ---
EXAMINATION TYPE: XR chest 1V portable DATE OF EXAM: 08/22/2020 HISTORY: Shortness of breath. COMPARISON: None. TECHNIQUE: Single view of the chest is submitted. FINDINGS: Demonstrated are scattered senescent parenchymal change. Patchy perihilar and basilar infiltrates persist without significant change. The heart is stable. Hilar and mediastinal structures are within normal limits. Degenerative changes are seen of the dorsal spine. IMPRESSION: 1. Stable chest.
[2020-08-22] MEDS: PANTOPRAZOLE 40 MG/10 ML VIAL IVP SCH (08:35)
[2020-08-22] MEDS: CEFEPIME 2 GM in SODIUM CHLORIDE 0.9% 100 ML IVPB SCH ×2 (08:35→20:04)
--- NOTE | 2020-08-22 09:34 | P.PN ---
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 Other medical history includes hypertension, hypothyroidism and previous history of DVT. Patient had a recent hospitalization from August 08 through 08/11/2020 hypotension, dehydration related to nausea vomiting diarrhea, acute kidney injury. Patient received antibiotics in the form of Zosyn and Levaquin for possibility of pneumonia, he is chest x-ray showed cranial perihilar pulmonary infiltrates with increased interstitial changes at the lung bases and was thought to be related to a combi nation of rheumatoid lung and chronic scarring. His last CT of the chest was on 07/19/2020 showing chronic changes to lower lungs, persistent irregular thick- walled pleural spaces in the posterior lung bases containing fluid and air with adjacent anterior lung with chronic consolidation or atelectasis. On 08/19/2020 patient came into the emergency department from Dr. GENE Carias's office where he w as being seen for a regular follow-up appointments. He was noted to have low pulse ox 70s and was sent in to the emergency department for evaluation. He has been having cough with yellow and sometimes blood-tinged sputum, appears amounts, denies any fever, COVID 19 was found to be negative, chest x-ray showed perihilar and basilar infiltrates without significant change from previous chest x-ray on 08/09/2020. Lab data showed leukocytosis with white blood cell count of 19.1, hemoglobin of 12.1, INR 1.5, sodium is 135, potassium is 3.9, chloride is 102, CO2 is 19, creatinine is 1.32, which has actually improved since his discharge from the hospital on 08/11/2020 when he was at 1.84. Lactic acid was elevated at 3.7, patient was given a total of 2 L in fluid boluses, troponin was negative at less than 0.012. Urinalysis showed no evidence of infection. CT chest showed thick-walled pleural cavities posteriorly in the lower lungs with left-sided air-fluid level with left-sided pleural fluid diminished most recent CT from 07/19/2020. There is associated compressive atelectasis and/or chronic consolidation. Persistent as it is lobe fissure, multifocal areas of reticular nodular opacity in the upper lungs remain present with slight nodularity in the left upper lobe. There is a focal consolidation improved from most recent study with some residual areas of scarring. We will emergency department patient became hypotensive with a blood pressure in the 70s, slightly tachycardic r emains in sinus mechanism, he is receiving his third liter bolus, his lactic acid did respond and improved he was started on antibiotics in the form of Zosyn and vancomycin The patient is seen today August 20 2020 in the intensive care unit. He is currently sitting up in a chair at the bedside. Awake and alert in no acute distress. Maintaining O2 saturations in the 90s on 2 L/m per nasal cannula. He did require a small dose of norepinephrine currently on 0.05 mcg/kg/m. He has lactated Ringer's at 100 MLS per hour. He remains on vancomycin and cefepime. Chest x-ray continues to show the left lower lobe effusion. White count 11.7. Hemoglobin 9.7. Sodium 135. Potassium 3.6. Creatinine 1.00. Blood cultures reveal no growth to date. Reevaluated today on 08/21/2020, remains in the ICU, still on norepinephrine at 0.04 mcg/kg/m. On LR at 1 25 mL per hour. On vancomycin and cefepime empirically, blood pressure remains marginal, went ahead and recommended Solu- Cortef 100 mg IV push every 8 hours and hopefully will be able to discontinue norepinephrine today. His IV fluid is cut down to KVO. Given 20 mg of Lasix IV push, and I have recommended that we monitor the patient in the ICU for the next 24 hours. Chest x-ray is basically the same, continues to show chronic finding, difficult to exclude underlying pneumonia/empyema. CT of the chest on admission was also reviewed, difficult to rule out underlying empyema. Clinically the patient is feeling better except for generally weak. WBC count is 12.5 hemoglobin is 9.9. Normal renal profile is normal blood cultures are negative so far. Sputum cultures are also negative so far. On 08/22/2020 patient seen in follow-up in the intensive care unit, he is awake and alert, oriented 3, sitting up in the recliner, currently on 2 L of oxygen his pulse ox is 95-100%, his been afebrile, hemodynamically he is stable, he is not on any vasopressor support. His lactate Ringer's running at 20 ML per hour, antibiotics include cefepime and vancomycin, blood pressure has been stable, so far blood and sputum cultures are negative, he denies chest pain, his breathing is comfortable. Today's labs have been reviewed, showing white blood cell count trending down, 10.2 today, hemoglobin is 8.8, electrolytes and renal profile are unremarkable. Serum cortisol level came back at 3, patient continues on stress doses of hydrocortisone 100 mg every 8 hours. Patient has not been stable, we'll consult interventional radiology for ultrasound-guided left thoracentesis Objective - Vital Signs Vital signs: Vital Signs Temp 97.7 F 08/22/20 08:15 Pulse 95 08/22/20 09:15 Resp 17 08/22/20 09:15 BP 97/60 08/22/20 09:15 Pulse Ox 95 08/22/20 09:15 Intake & Output 08/21/20 08/22/20 08/22/20 18:59 06:59 18:59 Intake Total 1491.324 902.778 390 Output Total 2115 550 0 Balance -623.676 352.778 390 Weight 100.7 kg Intake: IV 1470 840 150 Cefepime 2 gm In Sodium 100 100 100 Chloride 0.9% 100 ml @ 25 mls/hr IVPB Q12HR [facility] Rx #:[id number] LR 200 50 Lactated Ringers 1,000 ml 870 40 @ 125 mls/hr IV .Q8H [facility] Rx#:[id number] Vancomycin 1,750 mg In 500 500 Sodium Chloride 0.9% 500 ml 500 ml @ 167 mls/hr IVPB Q12H [facility] Rx#: [id number] Intake, IV Titration 21.324 62.778 Amount Norepinephrine 32 mg In 21.324 Sodium Chloride 0.9% 218 ml @ 0.05 MCG/KG/MIN 2. 233 mls/hr IV .Q24H [facility] Rx#:[id number] Norepinephrine 4 mg In 62.778 Sodium Chloride 0.9% 250 ml @ 0.05 MCG/KG/MIN 17. 86 mls/hr IV .Q14H [facility] Rx #:[id number] Oral 240 Output: Urine 2115 550 0 Other: Voiding Method Indwelling Catheter Indwelling Catheter # Voids 1 # Bowel Movements 1 - Exam GENERAL EXAM: Alert, pleasant, 60-year-old male patient, on 2 L nasal cannula with a pulse ox of 96%, currently sitting up in chair at the bedside, comfortable in no apparent distress. HEAD: Normocephalic/atraumatic. EENT: PERRLA, EOMI, nonicteric. Moist mucous membranes, no neck masses, no JVD, no stridor. CHEST: No chest wall deformity. Symmetrical expansion. LUNGS: Bibasilar crackles noted. CVS: Regular rate and rhythm, normal S1 and S2, no gallops, no murmurs, no rubs ABDOMEN: Soft, nontender. No hepatosplenomegaly, normal bowel sounds, no guarding or rigidity. EXTREMITIES: No clubbing, no edema, no cyanosis, 2+ pulses and upper and lower extremities. MUSCULOSKELETAL: Muscle strength and tone normal. SPINE: No scoliosis or deformity SKIN: No rashes CENTRAL NERVOUS SYSTEM: Alert and oriented -3. No focal deficits, tone is normal in all 4 extremities. PSYCHIATRIC: Alert and oriented -3. Appropriate affect. Intact judgment and insight. - Labs CBC & Chem 7: 08/22/20 03:14 08/22/20 03:14 Labs: Abnormal Lab Results - Last 24 Hours (Table) 08/22/20 08/22/20 Range/Units 03:14 03:14 RBC 3.32 L (4.30-5.90) m/uL Hgb 8.8 L (13.0-17.5) gm/dL Hct 28.9 L (39.0-53.0) % MCHC 30.5 L (31.0-37.0) g/dL RDW 16.9 H (11.5-15.5) % Neutrophils # 9.1 H (1.3-7.7) k/uL Lymphocytes # 0.7 L (1.0-4.8) k/uL BUN 7 L (9-20) mg/dL Glucose 127 H (74-99) mg/dL Microbiology - Last 24 Hours (Table) 08/19/20 13:00 Blood Culture - Preliminary Blood No Growth after 48 hours 08/19/20 09:26 Blood Culture - Preliminary Blood No Growth after 48 hours Assessment and Plan Plan: Assessment: #1. Acute hypoxic respiratory failure related to sepsis, septic shock, related to pneumonia, with chronic loculated effusions, rule out possibility of empyema. COVID 19 was ruled out per PCR #2. Bilateral hydropneumothorax, rule out possibility of empyema #3. Recent admission to the hospital for hypotension, dehydration related to nausea vomiting diarrhea, acute kidney injury #4. Recurrent pulmonary infections, with history of streptococcal pneumonia and empyema requiring chest tube placement in January 2020 #5. Chronic loculated pneumothoraces, posterior, with air-fluid level seen on the CT imaging of the chest, the possibility of trapped lung, chronic scarring and possibility of empyema needs to be ruled out #6. Elevated d-dimer with no CT evidence for pulmonary embolism #7. History of rheumatoid arthritis and rheumatoid lung disease on Arava #8. Recent history of acute kidney injury, and admission lab work today shows improvement in his renal function #9. Hypertension #10. Hypothyroidism #11. Previous history of foot infections requiring antibiotics #12. Previous history of DVT Plan: Continue current antibiotics, patient has been hemodynamically stable, not on a ny vasopressor support, continue hydrocortisone 100 mg every 8 hours, patient is been afebrile, today's labs have been reviewed, recent radiology for ultrasound- guided thoracentesis and pleural fluid will need to be sent for cultures. We'll go and consult to thoracic surgery for possibility of VATS. Continue to monitor the patient in the intensive care unit. I performed a history & physical examination of the patient and discussed their management with my nurse practitioner, Марина Thompson. I reviewed the nurse practitioner's note and agree with the documented findings and plan of care. Paz ng sounds are positive for diminished breath sounds. The findings and the impression was discussed with the patient. I attest to the documentation by the nurse practitioner. Time with Patient: Less than 30
--- NOTE | 2020-08-22 11:33 | P.GSCN ---
History of Present Illness Consult date: 08/22/20 Reason for Consult: Bilateral recurrent pneumonia, bilateral hydropneumothorax, recommendations for VATS Requesting physician: Brian Dutton History of present illness: This is a 60-year-old gentleman who follows on an outpatient basis with Dr. Marie for primary care. He has a previous medical history of multiple ad missions for pneumonia with known empyema on the left and previous bilateral chest tube placement in December 2019 with cultures positive for strep pneumonia, rheumatoid arthritis with rheumatoid lung, hypertension, hypothyroidism, DVT, previous tobacco dependence, family history of lung cancer, and recent hospitalization for hypotension, dehydration, and acute kidney injury where he did require dialysis. He was following up August [address] GENE Carias's office for a regularly scheduled appointment and was noted to have a low pulse ox in the 70s and was subsequently sent to the emergency room for evaluation. He admits to cough with yellowish sputum, denies any fever. In the emergency room his chest x-ray demonstrated perihilar and basilar infiltrates without significant change from previous chest x-ray. Covid 19 was negative. WBC 19.1, hemoglobin 12.9, INR 1.5, creatinine 1.3 to, lactic acid 3.7, and negative troponin. CT of the chest was completed demonstrating thick-walled pleural c avities posteriorly in the lower lung pandey with left-sided air-fluid level and left-sided pleural effusion which was diminished from his most recent computed tomography scan in June 2020. In addition it showed associated compressive atelectasis, multifocal areas of reticular nodular opacity in the upper lungs with slight nodularity in the left upper lobe, as well as focal consolidation improved from his most recent study with some residual areas of scarring. While in the emergency room he was evaluated by pulmonary medicine as he was hypotensive and tachycardic, he received fluid boluses and was initiated on antibiotics as well as a small dose of pressors. He was admitted to the int ensive care unit with consultation placed to pulmonology, infectious disease, and nephrology. He has slowly continued to improve and is currently in no acute distress and oxygenating well on 2 L nasal cannula, off all pressors, remains afebrile, WBC normalized this morning at 10.2. Blood cultures remain negative. Sputum culture sent August 20 is preliminarily demonstrating Aspergillus species. Interventional radiology was consulted for left sided thoracentesis for cytology and culture, and Dr. Graham from cardio thoracic surgery was consulted for recommendations for VATS with decortication. Review of Systems Review of systems was completed and was negative except as noted - Cardiovascular Reports leg edema - Respiratory Reports as per HPI, Reports congestion, Reports cough with sputum, Reports dyspnea Past Medical History Past Medical History: Deep Vein Thrombosis (DVT), GERD/Reflux, Hyperlipidemia, Hypertension, Neurologic Disorder, Renal Disease, Respiratory Disorder, Rheumatoid Arthritis (RA), Thyroid Disorder Additional Past Medical History / Comment(s): Pt recently admitted to [facility] on 08/08/20 with acute hypoxic respiratory failure 2ndary to hypovolemia from N/V/D, acute kidney injury, hypovolemic shock. Other hx: Rheumatoid arthritis, rheumatoid lungs with chronic interstitial lung disease maintained on Arava and chronic steroids in the past, previous history of pneumonia/empyema with Streptococcus and the patient required chest tube drainage - December 2019, past urinary retention, hypothyroidism, previous history of R foot infections requiring PICC line insertion, history of DVT L arm, nephrolithiasis, recent hospitalization where he required one hemodialysis session. History of Any Multi-Drug Resistant Organisms: None Reported Past Surgical History: Back Surgery, Orthopedic Surgery, Tonsillectomy Additional Past Surgical History / Comment(s): Temporary hemodialysis cath, lithotripsy, colonoscopy, bronchoscopies, back surgery d/t herniated disc, bilateral carpal tunnel releases, bunions removed from feet, R foot plate for arch since removed, benign nodule off R hip, bilateral wrist ganglion cyst removals; bilateral chest tube placement December 2019 Past Anesthesia/Blood Transfusion Reactions: Previous Problems w/ Anesthesia Additional Past Anesthesia/Blood Transfusion Reaction / Comm: slow to awaken x1. Past Psychological History: No Psychological Hx Reported Smoking Status: Former smoker Past Alcohol Use History: None Reported Past Drug Use History: None Reported - Past Family History Mother Family Medical History: Cancer Additional Family Medical History / Comment(s): lung with mets brain Father Family Medical History: No Reported History Additional Family Medical History / Comment(s): states, "he just ." Brother(s) Family Medical History: No Reported History Sister(s) Family Medical History: No Reported History Additional Family Medical History / Comment(s): Patient has 2 step daughters. Medications and Allergies Home Medications Medication Instructions Recorded Confirmed Type Levothyroxine Sodium [Synthroid] 150 mcg PO DAILY 10/17/16 08/19/20 History Albuterol Inhaler [Ventolin Hfa 2 puff INHALATION RT-QID PRN 12/30/19 08/19/20 History Inhaler] Ascorbic Acid [Vitamin C] 2,000 mg PO HS 07/13/20 08/19/20 History Cholecalciferol [Vitamin D3 (25 2,000 unit PO HS 07/13/20 08/19/20 History Mcg = 1000 Iu)] Ipratropium-Albuterol Nebulize 3 ml INHALATION RT-QID PRN 07/13/20 08/19/20 History [Duoneb 0.5 mg-3 mg/3 ml Soln] Aspirin 81 mg PO HS chew 08/11/20 08/19/20 Rx Metoprolol Succinate (ER) [Toprol 25 mg PO DAILY #30 tab.er.24h 08/11/20 08/19/20 Rx XL] Levofloxacin [Levaquin] 250 mg PO DAILY 08/19/20 08/19/20 History Ondansetron [Zofran] 4 mg PO QID PRN 08/19/20 08/19/20 History Allergies Allergy/AdvReac Type Severity Reaction Status Date / Time No Known Allergies Allergy Verified 08/19/20 10:37 Surgical - Exam Vital Signs Temp Pulse Resp BP Pulse Ox 98.9 F 118 H 22 123/106 93 L 08/19/20 09:02 08/19/20 09:02 08/19/20 09:02 08/19/20 09:02 08/19/20 09:02 - General well developed, well nourished, no distress, no pain - Eyes normal ocular movement - ENT no hearing loss - Neck no masses, no bruits, trachea midline - Respiratory Lungs sounds diminished bilaterally, left greater than right, expiratory wheezes heard on the left side. Respirations even, nonlabored. Currently on 2 L nasal cannula with oxygen saturation 96%. - Cardiovascular S1, S2 present. Regular rate and rhythm, sinus rhythm on telemetry. Palpable peripheral pulses bilaterally. Bilateral lower extremity edema present. No calf pain or tenderness noted. - Abdomen Abdomen: soft, non tender, bowel sounds - Genitourinary Deferred - Rectum Deferred - Integumentary no rash, no growths - Neurologic normal coordination, normal sensation - Musculoskeletal normal posture - Psychiatric oriented to time, oriented to person, oriented to place, speech is normal, memory intact Results - Labs 08/22/20 03:14 08/22/20 03:14 Abnormal Lab Results - Last 24 Hours (Table) 08/22/20 08/22/20 Range/Units 03:14 03:14 RBC 3.32 L (4.30-5.90) m/uL Hgb 8.8 L (13.0-17.5) gm/dL Hct 28.9 L (39.0-53.0) % MCHC 30.5 L (31.0-37.0) g/dL RDW 16.9 H (11.5-15.5) % Neutrophils # 9.1 H (1.3-7.7) k/uL Lymphocytes # 0.7 L (1.0-4.8) k/uL BUN 7 L (9-20) mg/dL Glucose 127 H (74-99) mg/dL Microbiology - Last 24 Hours (Table) 08/20/20 14:30 Gram Stain - Preliminary Sputum Sputum Culture - Preliminary Aspergillus species 08/19/20 13:00 Blood Culture - Preliminary Blood No Growth after 48 hours 08/19/20 09:26 Blood Culture - Preliminary Blood No Growth after 48 hours Diabetes panel 08/22/20 Range/Units 03:14 Sodium 137 (137-145) mmol/L Potassium 4.1 (3.5-5.1) mmol/L Chloride 107 (98-107) mmol/L Carbon Dioxide 24 (22-30) mmol/L BUN 7 L (9-20) mg/dL Creatinine 0.76 (0.66-1.25) mg/dL Glucose 127 H (74-99) mg/dL Calcium 8.6 (8.4-10.2) mg/dL Calcium panel 08/22/20 Range/Units 03:14 Calcium 8.6 (8.4-10.2) mg/dL Pituitary panel 08/22/20 Range/Units 03:14 Sodium 137 (137-145) mmol/L Potassium 4.1 (3.5-5.1) mmol/L Chloride 107 (98-107) mmol/L Carbon Dioxide 24 (22-30) mmol/L BUN 7 L (9-20) mg/dL Creatinine 0.76 (0.66-1.25) mg/dL Glucose 127 H (74-99) mg/dL Calcium 8.6 (8.4-10.2) mg/dL Adrenal panel 08/22/20 Range/Units 03:14 Sodium 137 (137-145) mmol/L Potassium 4.1 (3.5-5.1) mmol/L Chloride 107 (98-107) mmol/L Carbon Dioxide 24 (22-30) mmol/L BUN 7 L (9-20) mg/dL Creatinine 0.76 (0.66-1.25) mg/dL Glucose 127 H (74-99) mg/dL Calcium 8.6 (8.4-10.2) mg/dL - Imaging Chest x-ray: report reviewed, image reviewed CT scan - chest: report reviewed, image reviewed Assessment and Plan Assessment: 1. Bilateral pneumonia, bilateral hydropneumothorax, possible empyema, sputum culture preliminarily positive for Aspergillus species 2. Acute hypoxic respiratory failure with sepsis on admission 3. Multiple admissions for pneumonia with empyema on the left and previous bilateral chest tube placement in December 2019 with cultures positive for strep pn eum[place] 4. Rheumatoid arthritis with rheumatoid lung 5. Hypertension, currently hypotensive, requiring pressors on admission 6. Hypothyroidism 7. History of DVT 8. Previous tobacco dependence 9. Family history of lung cancer 10. Recent hospitalization for hypotension, dehydration, acute kidney injury requiring dialysis Plan: Patient was seen and examined at the bedside. Chart/diagnostics were reviewed. The case will be discussed in detail with Dr. Graham. At this time the patient is in no acute distress, he is oxygenating well on 2 L nasal cannula, remains afebrile and hemodynamically stable. Recommend continuing antibiotics per infectious disease. Patient is to have left-sided thoracentesis today with fluid sent for culture and cytology, will follow results. Incentive spirometry ordered and should be encouraged. Increase activity as tolerated. Management of other comorbidities per primary care service. More recommendations to follow regarding surgical treatment of possible empyema. Thank you Dr. Dutton for this consult Time with Patient: Greater than 30
--- NOTE | 2020-08-22 11:53 | XR ---
EXAMINATION TYPE: XR chest 1V portable DATE OF EXAM: 08/22/2020 COMPARISON: Prior chest x-ray 08/22/2020 HISTORY: Status post thoracentesis TECHNIQUE: Single frontal view of the chest is obtained. FINDINGS: There is no significant interval change. IMPRESSION: No complication status post left thoracentesis.
--- NOTE | 2020-08-22 12:43 | US ---
EXAMINATION TYPE: US thoracentesis DATE OF EXAM: 08/22/2020 COMPARISON: CT 08/19/2020 HISTORY: Bilateral Pleural effusion. FINDINGS: Maximal barrier technique was utilized. The skin overlying a suitable pocket of fluid was localized and the overlying skin prepped and draped. Lidocaine was used for local anesthesia. Ultras ound was used with sterile technique. A 5 Dutch catheter over guide needle was advanced into the pl eural fluid collection using ultrasound guidance and a catheter advanced and needle removed. Approxi mately 45 cc of cloudy white fluid was removed. Catheter was withdrawn and hemostasis achieved. The re is no immediate complication. The patient discharged in stable condition without complication. IMPRESSION: STATUS POST ULTRASOUND GUIDED THORACENTESIS for diagnosis, POST PROCEDURE CHEST X-RAY RAFFAELE GIRALDO. THIS PROCEDURE WAS PERFORMED BY THE UNDERSIGNED.
[2020-08-22 13:04] LABS: Color,BF Yellow
[2020-08-22 13:05] LABS: Appearance,BF Cloudy; RBC, Body Fluid 900 /uL
[2020-08-22 13:50] LABS: Nucleated Cells, Body Fluid 70200 /uL
[2020-08-22 13:52] LABS: Mononuclear WBC,Body Fluid 8 %; Polynuclear WBC,Body Fluid 91 %; Total Cells Counted,Body Fluid 100
[2020-08-22] MEDS: VANCOMYCIN 1,500 MG in SODIUM CHLORIDE 0.9% 250 ML IVPB SCH (13:56)
--- NOTE | 2020-08-22 14:24 | PN ---
PROGRESS NOTE DATE OF SERVICE: 08/22/2020 REASON FOR FOLLOWUP: Pneumonia, question of empyema. INTERVAL HISTORY: The patient is currently afebrile. He seems to be breathing more comfortably. Continued to have a cough. No chest pain. No nausea, no vomiting. No abdominal pain or diarrhea. PHYSICAL EXAMINATION: Blood pressure 101/70 with a pulse of 98, temperature is 97.7. He is 94% on 2 L nasal cannula. General description is a middle-aged male lying in bed in no distress. RESPIRATORY SYSTEM: Unlabored breathing with decreased intensity of breath sounds. No wheeze. HEART: S1, S2. Regular rate and rhythm. ABDOMEN: Soft, no tenderness. LABS: Hemoglobin 8.8, white count 10.2, BUN of 7, creatinine 0.76. Sputum now showing Aspergillus species. DIAGNOSTIC IMPRESSION AND PLAN: Patient with left lower lobe chronic empyema waiting for the possible thoracotomy and drainage and a biopsy and if grows the same pathogen he may benefit from antifungal currently covered with cefepime and vancomycin to continue and monitor his clinical course closely. Continue with supportive care. MMODL / IJN: [id number] /
--- NOTE | 2020-08-22 14:46 | P.PN ---
Subjective Progress Note Date: 08/22/20 This is a 60-year-old male patient requesting my service with past medical history of rheumatoid arthritis on Arava that was diagnosed when he was 37 year old initially was started on Methotrexate that he could not tolerate then placed on Embrel but he developed side effects and finally was tried on Humira injection but he developed neurologic sided effects and was hospitaized at [facility] for quiet some time, rheumatoid lung disease, previous history of loculated empyema with chest tube placement in January 2020, hypertension, hypothyroidism, history of DVT, remote history of tobacco use and dependence, was recently hospitalized at [facility] after he was admitted for an acute kidney injury with significant metabolic acidosis associated with the elevated creatinine and elevated BUN and hypotension at that time he was seen and evaluated by pulmonary and critical care medicine, he had a central line placed and at that time, he was placed on Levophed drip he was p laced on IV anabiotic as well but the patient recovered very fast and he had an echocardiogram that showed normal LV function and segmental hypokinesia, he was supposed to follow-up with Dr. 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 research investigator today and he had an episode when he was dizzy lightheaded and an episode of vomiting as well and he was sent to the emergency department for evaluation had a computed tomography of the chest as well as abdomen and pelvis that showed a thick walled pleural cavities posteriorly in the lower lungs with left-sided air-fluid level that has diminished in size from the prior computed tomography scan when he was in the hospital a few weeks back there is also associated compressive atelectasis and chronic consultation with multifocal areas of reticular nodular opacity in the upper lungs with a slight nodularity of the left upper lobe again this area of focal consultation has improved from the previous study that was done few weeks ago, patient was started on IV antibiotic with vancomycin and Zosyn as well as IV fluid, he was seen in consultation by pulmonary critical care in the emergency department as the patient blood pressure dropped and that he'll be transferred to the intensive care unit at this point in time I had long conve rsation with the patient and his at the bedside and the patient may need to have a chest tube placed for his possible right empyema, he did receive 3 L normal saline in the ER, and his blood pressure is marginal he may need to go on pressors if not recovered. 08/20:patient is sitting up in chair feeling about the same , complains of increased pain in the righ elbow, was seen earlier by pulmonary and the plan was to go for US-Guided left thoracenthesis due to to loculated left pleural effu unique and possible empyema, may need VATS, he denies any chest pain or shortness of breath, no abdominal pain nausea, vomiting or diarrhea, still have diarrhea negative for C.Diff, he seems to have accept to stay in the hospital this time as long as he needed to. 08/21: Patient sitting up in the recliner complaining of increased pain in his joints due to his rheumatoid arthritis with increased synovitis in both wrists both elbows and both shoulders he was started on hydrocortisone 100 mg IV push every 8 hours, to try to help with his blood pressure as well as his phonation, he is maintained on Har[place]on 5/325 mg one tablet orally every 6 hours as needed for pain control, patient denies any chest pain is less short of breath, he continues to have increased coughing with yellow from production of green phlegm production, he had no fever or chills at this time he continues to be on Levothroid drip, patient has appeared to have increased swelling in both lower extremities as well as both ankles, he is maintained on IV antibiotic in the form of vancomycin as well as cefepime, infectious disease is following, patient is scheduled to go for ultrasound guidance thoracentesis of the left loculated pleural effusion tomorrow morning. 08/22: Patient remains in the intensive care unit. He has been afebrile, heart rate 100, blood pressure 95/62, pulse ox 97% on 2 L nasal cannula. Hemoglobin 8.8 and leukocytosis resolved. Creatinine 0.76, electrolytes normal. Sputum culture is positive for Aspergillus species. Blood culture showing no growth. Patient underwent diagnostic thoracentesis with interventional radiology today with removal of 45 mL of cloudy white fluid. Chest x-ray reveals no complications following left thoracentesis. Fluid has been sent for culture and cytology. Consult in place for cardiothoracic surgery to evaluate for VATS with decortication. Objective - Vital Signs Vital signs: Vital Signs Temp 98 F 08/22/20 04:00 Pulse 98 08/22/20 06:45 Resp 20 08/22/20 07:00 BP 94/64 08/22/20 07:00 Pulse Ox 96 08/22/20 07:00 Intake & Output 08/21/20 08/22/20 08/22/20 18:59 06:59 18:59 Intake Total 1491.324 902.778 20 Output Total 2115 550 0 Balance -623.676 352.778 20 Weight 100.7 kg Intake: IV 1470 840 20 Cefepime 2 gm In Sodium 100 100 Chloride 0.9% 100 ml @ 25 mls/hr IVPB Q12HR [facility] Rx #:[id number] LR 200 20 Lactated Ringers 1,000 ml 870 40 @ 125 mls/hr IV .Q8H [facility] Rx#:[id number] Vancomycin 1,750 mg In 500 500 Sodium Chloride 0.9% 500 ml 500 ml @ 167 mls/hr IVPB Q12H [facility] Rx#: [id number] Intake, IV Titration 21.324 62.778 Amount Norepinephrine 32 mg In 21.324 Sodium Chloride 0.9% 218 ml @ 0.05 MCG/KG/MIN 2. 233 mls/hr IV .Q24H [facility] Rx#:[id number] Norepinephrine 4 mg In 62.778 Sodium Chloride 0.9% 250 ml @ 0.05 MCG/KG/MIN 17. 86 mls/hr IV .Q14H [facility] Rx #:[id number] Output: Urine 2115 550 0 Other: Voiding Method Indwelling Catheter Indwelling Catheter # Voids 1 # Bowel Movements 1 - Exam Review of Systems Constitutional: Reports anorexia, Reports chronic pain, Reports fatigue, Reports weakness, Reports weight loss Eyes: denies blurred vision, denies bulging eye, denies decreased vision, denies diplopia Ears, nose, mouth and throat: Denies dysphagia, Denies neck lump, Denies sore throat Respiratory: Reports dyspnea, Reports respiratory infections, Denies congestion, Denies cough with sputum, Denies home oxygen, Denies sleep apnea, Denies snoring, Denies wheezing Gastrointestinal: Reports bloating, Reports change in bowel habits, Reports diar gómez, Reports early satiety, Reports indigestion, Reports loss of appetite, Reports nausea, Reports vomiting, Denies abdominal pain, Denies belching, Denies heartburn, Denies hematemesis, Denies hematochezia, Denies melena Genitourinary: Denies dysuria, Denies nocturia Musculoskeletal: Denies myalgias Musculoskeletal: absent: ankle pain, ankle stiffness, ankle swelling, elbow pain, elbow stiffness, elbow swelling, foot pain, foot stiffness, foot swelling, hand pain, hand stiffness, hand swelling, hip pain, hip stiffness, hip swelling, knee pain, knee stiffness, knee swelling, shoulder pain, shoulder stiffness, shoulder swelling, wrist pain, wrist stiffness, wrist swelling Integumentary: Denies pruritus, Denies rash Neurological: Denies numbness, Denies weakness Psychiatric: Denies anxiety, Denies depression Endocrine: Denies fatigue, Denies weight change Physical examination: General: patient is 60 year old lying down in bed in moderate distress. HEENT: head ia atraumatic normocephalic, Pupils were equal round reactive to light and accommodations , extra ocular muscle movement were intact, mucous membranes of the mouth are somewhat dry. Neck: supple no JVP. Chest: decreased breath sounds at he bases with few ronchi no expiratory wheezes no chest wall tendernes or intercostal retractions. Heart: first heart sound is depressed, second heart sound is normal tachycardic there is BIRD 2/6 located at the left sternal border. Abdomen: soft, mild tenderness to the left lower quadrant positive bowel sounds, no guarding or rebound tenderness, no hepatosplenomegaly. Extremities: there is no edema or calf tenderness DP+ 2 Bilaterally, there is what appears to be a charcot joint in the right foot form arch collapse. Neurologic examination: patient is awake , alert and oriented X 3 CN II-XII are grossly intact, muscle power 4/5 in bilateral upper and lower extremities, deep tendon reflexes were normal. - Labs CBC & Chem 7: 08/22/20 03:14 08/22/20 03:14 Labs: Abnormal Lab Results - Last 24 Hours (Table) 08/22/20 08/22/20 Range/Units 03:14 03:14 RBC 3.32 L (4.30-5.90) m/uL Hgb 8.8 L (13.0-17.5) gm/dL Hct 28.9 L (39.0-53.0) % MCHC 30.5 L (31.0-37.0) g/dL RDW 16.9 H (11.5-15.5) % Neutrophils # 9.1 H (1.3-7.7) k/uL Lymphocytes # 0.7 L (1.0-4.8) k/uL BUN 7 L (9-20) mg/dL Glucose 127 H (74-99) mg/dL Microbiology - Last 24 Hours (Table) 08/19/20 13:00 Blood Culture - Preliminary Blood No Growth after 48 hours 08/19/20 09:26 Blood Culture - Preliminary Blood No Growth after 48 hours 08/20/20 14:30 Gram Stain - Preliminary Sputum Sputum Culture - Preliminary Assessment and Plan Assessment: Assessment and plan: 1. Acute hypoxemic respiratory failure secondary to loculated left-sided pleural effusion and possible empyema with what appears to be recurrent pneumo mely. Patient was admitted to the intensive care unit, he was started on IV fluid resuscitation, required small dose of Levophed, continue IV antibiotic in the form of vancomycin and cefepime, ID consultation appreciated, interventional radiology performed ultrasound-guided thoracentesis of the left loculated pleural fluid for Gram stain and culture and cytology as well as LDH protein as well as pH for possible empyema with thoracic surgery consultation for possible VATS versus decortication and chest tube placement. 2. Lactic acidosis. Continue IV fluid resuscitation, continue with IV anti biotic vancomycin and cefepime, repeat lactic acid is back to normal. 3. Sepsis with septic shock. Continue IV fluid resuscitation, continue IV antibiotic, try to wean Levothroid drip to keep his mean greater than 65 mmHg. 4. Acute kidney injury due to poor oral intake of fluid as well as hypotension with acute tubular necrosis. Continue IV fluid, continue to monitor the patient CMP continue to monitor urine output. 5. Leukocytosis secondary to severe sepsis. Continue IV fluid, continue IV antibiotic, repeat CBC tomorrow morning. 6. Rheumatoid arthritis and rheumatoid lung. Arava and Xeljanz had been on hold since April, patient was started on hydrocortisone 100 mg IV push every 8 hours. 7. History of empyema with Streptococcus requiring chest tube. His is a similar scenario may need a cardiothoracic surgery consultation. 8. Hypertension and hypertensive cardiovascular disease. currently hypotensive . Continue the IV fluid currently as well as IV pressors if needed 9. Hypothyroidism . we will continue with Synthroid 150 mcg orally daily. 10. DVT prophylaxis. we will start Lovenox 40 mg SC daily and bilateral knee high Cecilio Hose 11. GI prophylaxis. we will continue with Protonix 40 mg IVP daily. 12. Prognosis continues to be guarded.
[2020-08-22] MEDS: TRIAMCINOLONE 0.1% CREAM 80 GM TUBE TOPICAL SCH ×2 (16:44→20:04)
[2020-08-22] MEDS: NOREPINEPHRINE 4 MG in SODIUM CHLORIDE 0.9% 250 ML IV SCH ×2 (17:51→20:07)
[2020-08-22] MEDS: ASCORBIC ACID 500 MG TAB PO SCH (20:00)
[2020-08-22] MEDS: CHOLECALCIFEROL 25 MCG (1000 IU) TABLET PO SCH (20:04)
[2020-08-22] MEDS: ASPIRIN 81 MG PO SCH (20:04)
[2020-08-22] MEDS: HYDROcodone/APAP 5-325MG 1 EACH TAB PO PRN (20:04)
[2020-08-23] MEDS: HEPARIN SODIUM,PORCINE 5,000 UNIT/ML 1 ML VIAL SQ SCH ×4 (00:07→23:33)
[2020-08-23] MEDS: VANCOMYCIN 1,500 MG in SODIUM CHLORIDE 0.9% 250 ML IVPB SCH (00:07)
[2020-08-23] MEDS: HYDROCORTISONE SUCCINATE 100 MG/2 ML VIAL IV SCH ×4 (00:07→23:33)
[2020-08-23 05:22] LABS: Glucose, BF Source Thoracentesis Fluid; Glucose, Body Fluid 6 mg/dL; LDH, Body Fluid Source Thoracentesis Fluid
[2020-08-23 05:58] LABS: Anisocytosis Slight; Basophils % (A) 0 %; Eosinophils % (A) 0 %; HCT 29.5 % (39.0-53.0); HGB 9.1 gm/dL (13.0-17.5); Hypochromasia Marked; Lymphocytes # (A) 0.9 k/uL (1.0-4.8); Lymphocytes % (A) 8 %; MCH 26.3 pg (25.0-35.0); MCHC 30.7 g/dL (31.0-37.0); MCV 85.6 fL (80.0-100.0); Mean Platelet Volume 8.1; Monocytes # (A) 0.4 k/uL (0-1.0); Monocytes % (A) 4 %; Neutrophils # (A) 10.2 k/uL (1.3-7.7); Neutrophils % (A) 87 %; Platelet Count 331 k/uL (150-450); RBC 3.45 m/uL (4.30-5.90); WBC 11.6 k/uL (3.8-10.6)
[2020-08-23 06:12] LABS: ALT 10 U/L (4-49); AST 16 U/L (17-59); African American GFR (CKD) >90 (>60 ml/min/1.73 sqM); Albumin 2.4 g/dL (3.5-5.0); Alkaline Phosphatase 151 U/L (38-126); Anion Gap 5 mmol/L; Blood Urea Nitrogen 15 mg/dL (9-20); Calcium 8.7 mg/dL (8.4-10.2); Carbon Dioxide 23 mmol/L (22-30); Chloride 109 mmol/L (98-107); Glucose 120 mg/dL (74-99); Non-African American GFR(CKD) >90 (>60 ml/min/1.73 sqM); Sodium 137 mmol/L (137-145); Total Bilirubin 0.3 mg/dL (0.2-1.3); Total Protein 5.8 g/dL (6.3-8.2)
[2020-08-23] MEDS: LEVOTHYROXINE 75 MCG TAB PO SCH (06:26)
[2020-08-23] MEDS: PANTOPRAZOLE 40 MG TABLET PO SCH (06:43)
--- NOTE | 2020-08-23 08:06 | P.PN ---
Subjective Progress Note Date: 08/23/20 Principal diagnosis: Bilateral pneumonia, bilateral hydropneumothorax, possible empyema, sputum culture preliminarily positive for Aspergillus species, acute hypoxic respiratory failure with sepsis on admission. Radius history of multiple admissions for pneumonia with empyema on the left and previous bilateral chest tube placement in December 2019 with cultures positive for strep pneumonia, rheumatoid arthritis with rheumatoid lung, hypertension, hypothyroidism, DVT, previous tobacco dependence, family history of lung cancer, and recent hospitalization for hypotension, dehydration, acute kidney injury requiring dialysis POD #1 left-sided thoracentesis by interventional radiology The patient's currently sitting up in a recliner in the intensive care unit in no acute distress. Denies chest pain, states shortness of breath is at baseline. Currently on room air with oxygen saturation in the low to mid 90s. Patient did have thoracentesis yesterday with fluid sent for cytology and culture, await final results. Remains on IV antibiotics per infectious disease. Remains afebrile, hemodynamically stable on no pressors. No other new concerns. Objective - Vital Signs Vital signs: Vital Signs Temp 98.0 F 08/23/20 04:00 Pulse 102 H 08/23/20 07:00 Resp 23 08/23/20 07:00 BP 115/78 08/23/20 07:00 Pulse Ox 94 L 08/23/20 07:00 Intake & Output 08/22/20 08/23/20 08/23/20 18:59 06:59 18:59 Intake Total 750 830 0 Output Total 0 200 0 Balance 750 630 0 Intake: IV 260 100 0 Cefepime 2 gm In Sodium 100 100 Chloride 0.9% 100 ml @ 25 mls/hr IVPB Q12HR [facility] Rx #:[id number] LR 160 0 0 Intake, IV Titration 250 250 Amount Vancomycin 1,500 mg In 250 250 Sodium Chloride 0.9% 250 ml @ 125 mls/hr IVPB Q12H [facility] Rx#:[id number] Oral 240 480 Output: Urine 0 200 0 Other: Voiding Method Indwelling Catheter Toilet Urinal # Voids 1 1 # Bowel Movements 1 - Constitutional General appearance: Present: cooperative, no acute distress - Respiratory Details: Lungs sounds diminished in the bases bilaterally, faint expiratory wheezes in the bases. Respirations even, nonlabored. Currently on room air with oxygen saturation 92-94%. Able to achieve 1000 mL on his incentive spirometry. Strong cough. - Cardiovascular Details: S1, S2 present. Regular rate and rhythm, sinus rhythm on telemetry. Palpable peripheral pulses bilaterally. Bilateral lower extremity edema present. No calf pain or tenderness noted. - Gastrointestinal Gastrointestinal Comment(s): Abdomen soft, nontender, nondistended. Active bowel sounds present 4 quadrants. Tolerating diet. Positive bowel movement - Genitourinary Genitourinary Comment(s): Continues to void - Integumentary Integumentary Comment(s): Skin is warm and dry with evidence of good perfusion - Neurologic Neurologic: Present: CNII-XII intact - Musculoskeletal Musculoskeletal: Present: gait normal, strength equal bilaterally - Psychiatric Psychiatric: Present: A&O x's 3, appropriate affect, intact judgment & insight - Allied health notes Allied health notes reviewed: nursing - Labs CBC & Chem 7: 08/23/20 05:23 08/23/20 05:23 Labs: Abnormal Lab Results - Last 24 Hours (Table) 08/23/20 08/23/20 Range/Units 05:23 05:23 WBC 11.6 H (3.8-10.6) k/uL RBC 3.45 L (4.30-5.90) m/uL Hgb 9.1 L (13.0-17.5) gm/dL Hct 29.5 L (39.0-53.0) % MCHC 30.7 L (31.0-37.0) g/dL RDW 17.0 H (11.5-15.5) % Neutrophils # 10.2 H (1.3-7.7) k/uL Lymphocytes # 0.9 L (1.0-4.8) k/uL Chloride 109 H (98-107) mmol/L Glucose 120 H (74-99) mg/dL AST 16 L (17-59) U/L Alkaline Phosphatase 151 H (38-126) U/L Total Protein 5.8 L (6.3-8.2) g/dL Albumin 2.4 L (3.5-5.0) g/dL Microbiology - Last 24 Hours (Table) 08/22/20 11:30 Acid Fast Bacilli Smear - Final Pleural Fluid Acid Fast Bacilli Culture - Preliminary 08/22/20 11:30 Gram Stain - Preliminary Pleural Fluid Body Fluid Culture - Preliminary 08/22/20 11:30 Fungal Culture - Preliminary Pleural Fluid 08/19/20 13:00 Blood Culture - Preliminary Blood No Growth after 72 hours 08/19/20 09:26 Blood Culture - Preliminary Blood No Growth after 72 hours 08/20/20 14:30 Gram Stain - Preliminary Sputum Sputum Culture - Preliminary Aspergillus species - Imaging and Cardiology Chest x-ray: image reviewed Assessment and Plan Assessment: 1. Bilateral pneumonia, bilateral hydropneumothorax, possible empyema, sputum culture preliminarily positive for Aspergillus species, status post left-sided thoracentesis 2. Acute hypoxic respiratory failure with sepsis on admission 3. Multiple admissions for pneumonia with empyema on the left and previous bilateral chest tube placement in December 2019 with cultures positive for strep pneumonia 4. Rheumatoid arthritis with rheumatoid lung 5. Hypertension, currently hypotensive, requiring pressors on admission 6. Hypothyroidism 7. History of DVT 8. Previous tobacco dependence 9. Family history of lung cancer 10. Recent hospitalization for hypotension, dehydration, acute kidney injury requiring dialysis Plan: 1. Will follow culture and cytology sent from thoracentesis. 2. Daily chest x-rays 3. Encourage incentive spirometry 4. No plan for open thoracotomy with decortication at this time as it is not clear that the benefit would outweigh the risk. We will continue to follow the patient's response to current treatment, culture and cytology, and make future decision about appropriateness of surgery 5. Continue antibiotics per infectious disease recommendations 6. Increase activity as tolerated 7. Management with a comorbidities per primary care service. 8. More recommendations to follow Time with Patient: Greater than 30
[2020-08-23] MEDS ORDERED: FUROSEMIDE 10 MG/ML 4 ML VIAL IV STA (08:21)
--- NOTE | 2020-08-23 08:22 | P.PN ---
Subjective Patient is seen in follow for acute kidney injury. GFR back to baseline. Off vasopressors. Tolerating oral intake. Diarrhea improved. Lower extremities more edematous. Vital signs are stable. General: The patient appeared well nourished and normally developed. HEENT: Head exam is unremarkable. Neck is without jugular venous distension. LUNGS: Breath sounds decreased. HEART: Rate and Rhythm are regular. ABDOMEN: Soft, nontender. EXTREMITITES: 2+ edema. Objective - Vital Signs Vital signs: Vital Signs Temp 98.0 F 08/23/20 04:00 Pulse 102 H 08/23/20 07:00 Resp 23 08/23/20 07:00 BP 115/78 08/23/20 07:00 Pulse Ox 94 L 08/23/20 07:00 Intake & Output 08/22/20 08/23/20 08/23/20 18:59 06:59 18:59 Intake Total 750 830 0 Output Total 0 200 0 Balance 750 630 0 Intake: IV 260 100 0 Cefepime 2 gm In Sodium 100 100 Chloride 0.9% 100 ml @ 25 mls/hr IVPB Q12HR [facility] Rx #:[id number] LR 160 0 0 Intake, IV Titration 250 250 Amount Vancomycin 1,500 mg In 250 250 Sodium Chloride 0.9% 250 ml @ 125 mls/hr IVPB Q12H [facility] Rx#:[id number] Oral 240 480 Output: Urine 0 200 0 Other: Voiding Method Indwelling Catheter Toilet Urinal # Voids 1 1 # Bowel Movements 1 - Labs CBC & Chem 7: 08/23/20 05:23 08/23/20 05:23 Labs: Abnormal Lab Results - Last 24 Hours (Table) 08/23/20 08/23/20 Range/Units 05:23 05:23 WBC 11.6 H (3.8-10.6) k/uL RBC 3.45 L (4.30-5.90) m/uL Hgb 9.1 L (13.0-17.5) gm/dL Hct 29.5 L (39.0-53.0) % MCHC 30.7 L (31.0-37.0) g/dL RDW 17.0 H (11.5-15.5) % Neutrophils # 10.2 H (1.3-7.7) k/uL Lymphocytes # 0.9 L (1.0-4.8) k/uL Chloride 109 H (98-107) mmol/L Glucose 120 H (74-99) mg/dL AST 16 L (17-59) U/L Alkaline Phosphatase 151 H (38-126) U/L Total Protein 5.8 L (6.3-8.2) g/dL Albumin 2.4 L (3.5-5.0) g/dL Microbiology - Last 24 Hours (Table) 08/22/20 11:30 Acid Fast Bacilli Smear - Final Pleural Fluid Acid Fast Bacilli Culture - Preliminary 08/22/20 11:30 Gram Stain - Preliminary Pleural Fluid Body Fluid Culture - Preliminary 08/22/20 11:30 Fungal Culture - Preliminary Pleural Fluid 08/19/20 13:00 Blood Culture - Preliminary Blood No Growth after 72 hours 08/19/20 09:26 Blood Culture - Preliminary Blood No Growth after 72 hours 08/20/20 14:30 Gram Stain - Preliminary Sputum Sputum Culture - Preliminary Aspergillus species Assessment and Plan Plan: Assessment: 1. Acute kidney injury mostly prerenal secondary to intravascular volume depletion and hypotension, improved with IV hydration. GFR back to baseline. 2. Pneumonia maintained on antibiotics. ? Empyema - status post thoracentesis on August 22 with 45 mL of fluid removed. 3. Septic shock secondary to pneumonia. Off vasopressors. On antibiotics. 4. History of rheumatoid arthritis. 5. Hypotension mostly secondary to sepsis. Cortisol level was also low. He is currently on Solu-Cortef. ACTH stimulation test will not be accurate at this time as he is on Solu-Cortef. 6. Diarrhea. C. diff negative. Mostly resolved. 7. Lower extremity edema. Plan: Encouraged oral intake. Continue to monitor renal function and urine output. Patient did receive IV contrast on August 19. Lasix 40 mg IV once today.
--- NOTE | 2020-08-23 08:35 | XR ---
EXAMINATION TYPE: XR chest 1V portable DATE OF EXAM: 08/23/2020 HISTORY: Shortness of breath. COMPARISON: 08/22/2020 TECHNIQUE: Single view of the chest is submitted. FINDINGS: Demonstrated are scattered senescent parenchymal change. Patchy peripheral lung with lung zone and lower lung zone infiltrates persist unchanged. The heart is stable. Hilar and mediastinal structures are within normal limits. Degenerative changes are seen of the dorsal spine. IMPRESSION: 1. Patchy peripheral lung with lung zone and lower lung zone infiltrates persist unchanged.
[2020-08-23] MEDS: TRIAMCINOLONE 0.1% CREAM 80 GM TUBE TOPICAL SCH ×2 (09:04→20:59)
[2020-08-23] MEDS: CEFEPIME 2 GM in SODIUM CHLORIDE 0.9% 100 ML IVPB SCH ×2 (09:04→20:58)
[2020-08-23] MEDS: IPRATROPIUM-ALBUTEROL 3 ML NEB INHALATION SCH ×3 (09:07→19:53)
--- NOTE | 2020-08-23 09:07 | P.PN ---
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 Other medical history includes hypertension, hypothyroidism and previous history of DVT. Patient had a recent hospitalization from August 08 through 08/11/2020 hypotension, dehydration related to nausea vomiting diarrhea, acute kidney injury. Patient received antibiotics in the form of Zosyn and Levaquin for possibility of pneumonia, he is chest x-ray showed cranial perihilar pulmonary infiltrates with increased interstitial changes at the lung bases and was thought to be related to a combi nation of rheumatoid lung and chronic scarring. His last CT of the chest was on 07/19/2020 showing chronic changes to lower lungs, persistent irregular thick- walled pleural spaces in the posterior lung bases containing fluid and air with adjacent anterior lung with chronic consolidation or atelectasis. On 08/19/2020 patient came into the emergency department from Dr. GENE Carias's office where he w as being seen for a regular follow-up appointments. He was noted to have low pulse ox 70s and was sent in to the emergency department for evaluation. He has been having cough with yellow and sometimes blood-tinged sputum, appears amounts, denies any fever, COVID 19 was found to be negative, chest x-ray showed perihilar and basilar infiltrates without significant change from previous chest x-ray on 08/09/2020. Lab data showed leukocytosis with white blood cell count of 19.1, hemoglobin of 12.1, INR 1.5, sodium is 135, potassium is 3.9, chloride is 102, CO2 is 19, creatinine is 1.32, which has actually improved since his discharge from the hospital on 08/11/2020 when he was at 1.84. Lactic acid was elevated at 3.7, patient was given a total of 2 L in fluid boluses, troponin was negative at less than 0.012. Urinalysis showed no evidence of infection. CT chest showed thick-walled pleural cavities posteriorly in the lower lungs with left-sided air-fluid level with left-sided pleural fluid diminished most recent CT from 07/19/2020. There is associated compressive atelectasis and/or chronic consolidation. Persistent as it is lobe fissure, multifocal areas of reticular nodular opacity in the upper lungs remain present with slight nodularity in the left upper lobe. There is a focal consolidation improved from most recent study with some residual areas of scarring. We will emergency department patient became hypotensive with a blood pressure in the 70s, slightly tachycardic r emains in sinus mechanism, he is receiving his third liter bolus, his lactic acid did respond and improved he was started on antibiotics in the form of Zosyn and vancomycin The patient is seen today August 20 2020 in the intensive care unit. He is currently sitting up in a chair at the bedside. Awake and alert in no acute distress. Maintaining O2 saturations in the 90s on 2 L/m per nasal cannula. He did require a small dose of norepinephrine currently on 0.05 mcg/kg/m. He has lactated Ringer's at 100 MLS per hour. He remains on vancomycin and cefepime. Chest x-ray continues to show the left lower lobe effusion. White count 11.7. Hemoglobin 9.7. Sodium 135. Potassium 3.6. Creatinine 1.00. Blood cultures reveal no growth to date. Reevaluated today on 08/21/2020, remains in the ICU, still on norepinephrine at 0.04 mcg/kg/m. On LR at 1 25 mL per hour. On vancomycin and cefepime empirically, blood pressure remains marginal, went ahead and recommended Solu- Cortef 100 mg IV push every 8 hours and hopefully will be able to discontinue norepinephrine today. His IV fluid is cut down to KVO. Given 20 mg of Lasix IV push, and I have recommended that we monitor the patient in the ICU for the next 24 hours. Chest x-ray is basically the same, continues to show chronic finding, difficult to exclude underlying pneumonia/empyema. CT of the chest on admission was also reviewed, difficult to rule out underlying empyema. Clinically the patient is feeling better except for generally weak. WBC count is 12.5 hemoglobin is 9.9. Normal renal profile is normal blood cultures are negative so far. Sputum cultures are also negative so far. On 08/22/2020 patient seen in follow-up in the intensive care unit, he is awake and alert, oriented 3, sitting up in the recliner, currently on 2 L of oxygen his pulse ox is 95-100%, his been afebrile, hemodynamically he is stable, he is not on any vasopressor support. His lactate Ringer's running at 20 ML per hour, antibiotics include cefepime and vancomycin, blood pressure has been stable, so far blood and sputum cultures are negative, he denies chest pain, his breathing is comfortable. Today's labs have been reviewed, showing white blood cell count trending down, 10.2 today, hemoglobin is 8.8, electrolytes and renal profile are unremarkable. Serum cortisol level came back at 3, patient continues on stress doses of hydrocortisone 100 mg every 8 hours. Patient has not been stable, we'll consult interventional radiology for ultrasound-guided left thoracentesis On 08/23/2020 patient seen in follow-up in the intensive care unit, he is calm and comfortable, awake and alert, sitting up in the recliner, currently on room air with a pulse ox of 93-94%, his been afebrile, hemodynamically he is been stable, he is on IV LR at 20 ML per hour, no other drips. He is on cefepime and vancomycin for antibiotic coverage, yesterday he underwent left thoracentesis with removal of 43 mL of pleural fluid which was sent for cultures. Tolerated procedure well. His pleural fluid analysis revealed total fluid protein of 1.3 g, and fluid LDH of greater than 4500 consistent with exudative fluid. His microbiology data has been reviewed showing Aspergillus fumigate is in the sputum, his pleural fluid cultures are pending at this time, the cultures have shown no growth, hemodynamically has been stable, he is breathing easier, he still has cough mostly in the morning and the amount of secretions his bringing up is decreasing in amount. Lung sounds revealed a few scattered wheezes, and a few rhonchi at bilateral bases. Is tolerating oral intake. No abdominal pain, no nausea or vomiting, today's labs have been reviewed, white blood cell count is 11.2, hemoglobin is 9.1, sodium is 137, potassium is 4.0, chloride is 109, BUN is 15, creatinine 0.80. No acute events overnight. He is working on incentive spirometer, he is achieving 1000 today Objective - Vital Signs Vital signs: Vital Signs Temp 98.0 F 08/23/20 04:00 Pulse 102 H 08/23/20 07:00 Resp 23 02/02/21 07:00 BP 115/78 08/23/20 07:00 Pulse Ox 94 L 08/23/20 07:00 Intake & Output 08/22/20 08/23/20 08/23/20 18:59 06:59 18:59 Intake Total 750 830 0 Output Total 0 200 0 Balance 750 630 0 Intake: IV 260 100 0 Cefepime 2 gm In Sodium 100 100 Chloride 0.9% 100 ml @ 25 mls/hr IVPB Q12HR [facility] Rx #:[id number] LR 160 0 0 Intake, IV Titration 250 250 Amount Vancomycin 1,500 mg In 250 250 Sodium Chloride 0.9% 250 ml @ 125 mls/hr IVPB Q12H [facility] Rx#:[id number] Oral 240 480 Output: Urine 0 200 0 Other: Voiding Method Indwelling Catheter Toilet Urinal # Voids 1 1 # Bowel Movements 1 - Exam GENERAL EXAM: Alert, pleasant, 60-year-old male patient, on room air with a pulse ox of 94%, currently sitting up in chair at the bedside, comfortable in no apparent distress. HEAD: Normocephalic/atraumatic. EENT: PERRLA, EOMI, nonicteric. Moist mucous membranes, no neck masses, no JVD, no stridor. CHEST: No chest wall deformity. Symmetrical expansion. LUNGS: Bibasilar rhonchi, and a few scattered wheezes CVS: Regular rate and rhythm, normal S1 and S2, no gallops, no murmurs, no rubs ABDOMEN: Soft, nontender. No hepatosplenomegaly, normal bowel sounds, no guarding or rigidity. EXTREMITIES: No clubbing, 1+ lower extremity edema, no cyanosis, 2+ pulses and upper and lower extremities. MUSCULOSKELETAL: Muscle strength and tone normal. SPINE: No scoliosis or deformity SKIN: No rashes CENTRAL NERVOUS SYSTEM: Alert and oriented -3. No focal deficits, tone is normal in all 4 extremities. PSYCHIATRIC: Alert and oriented -3. Appropriate affect. Intact judgment and insight. - Labs CBC & Chem 7: 08/23/20 05:23 08/23/20 05:23 Labs: Abnormal Lab Results - Last 24 Hours (Table) 08/23/20 08/23/20 Range/Units 05:23 05:23 WBC 11.6 H (3.8-10.6) k/uL RBC 3.45 L (4.30-5.90) m/uL Hgb 9.1 L (13.0-17.5) gm/dL Hct 29.5 L (39.0-53.0) % MCHC 30.7 L (31.0-37.0) g/dL RDW 17.0 H (11.5-15.5) % Neutrophils # 10.2 H (1.3-7.7) k/uL Lymphocytes # 0.9 L (1.0-4.8) k/uL Chloride 109 H (98-107) mmol/L Glucose 120 H (74-99) mg/dL AST 16 L (17-59) U/L Alkaline Phosphatase 151 H (38-126) U/L Total Protein 5.8 L (6.3-8.2) g/dL Albumin 2.4 L (3.5-5.0) g/dL Microbiology - Last 24 Hours (Table) 08/20/20 14:30 Gram Stain - Final Sputum Sputum Culture - Final Aspergillus fumigatus 08/22/20 11:30 Acid Fast Bacilli Smear - Final Pleural Fluid Acid Fast Bacilli Culture - Preliminary 08/22/20 11:30 Gram Stain - Preliminary Pleural Fluid Body Fluid Culture - Preliminary 08/22/20 11:30 Fungal Culture - Preliminary Pleural Fluid 08/19/20 13:00 Blood Culture - Preliminary Blood No Growth after 72 hours 08/19/20 09:26 Blood Culture - Preliminary Blood No Growth after 72 hours Assessment and Plan Plan: Assessment: #1. Acute hypoxic respiratory failure related to sepsis, septic shock, related to pneumonia, with chronic loculated effusions, rule out possibility of empyema. COVID 19 was ruled out per PCR #2. Bilateral hydropneumothorax, rule out possibility of empyema, status post ultrasound-guided left-sided thoracentesis on 08/22/2020 would removal of 45 mL of cloudy white fluid, which was exudative in nature, pleural fluid cultures are pending at this time #3. Recent admission to the hospital for hypotension, dehydration related to nausea vomiting diarrhea, acute kidney injury #4. Recurrent pulmonary infections, with history of streptococcal pneumonia and empyema requiring chest tube placement in January 2020 #5. Chronic loculated pneumothoraces, posterior, with air-fluid level seen on the CT imaging of the chest, the possibility of trapped lung, chronic scarring and possibility of empyema needs to be ruled out #6. Elevated d-dimer with no CT evidence for pulmonary embolism #7. History of rheumatoid arthritis and rheumatoid lung disease on Arava #8. Recent history of acute kidney injury, and admission lab work today shows improvement in his renal function #9. Hypertension #10. Hypothyroidism #11. Previous history of foot infections requiring antibiotics #12. Previous history of DVT Plan: Encouraging deep breathing and coughing, incentive spirometry use, encourage activity as tolerated, vital signs have been stable, hemodynamically patient has been stable, afebrile, remains on cefepime and vancomycin, tolerated a left- sided thoracentesis well performed by interventional radiology, still awaiting results of the pleural fluid cultures. Consult cardiothoracic surgery for possibility of VATS. No acute events overnight, patient is stable for transfer out of the intensive care unit to general medical floor today. We'll continue to closely follow. I performed a history & physical examination of the patient and discussed their management with my nurse practitioner, Марина Thompson. I reviewed the nurse practitioner's note and agree with the documented findings and plan of care. Paz ng sounds are positive for diminished breath sounds. The findings and the impression was discussed with the patient. I attest to the documentation by the nurse practitioner. Time with Patient: Less than 30
[2020-08-23] MEDS ORDERED: VANCOMYCIN TROUGH DUE 1 EACH MISC MISCELLANE ONE (11:00)
[2020-08-23] MEDS ORDERED: VANCOMYCIN IV PER PHARMACY 1 EACH MISC MISCELLANE PRN (12:25)
--- NOTE | 2020-08-23 14:08 | P.PN ---
Subjective Progress Note Date: 08/23/20 This is a 60-year-old male patient requesting my service with past medical history of rheumatoid arthritis on Arava that was diagnosed when he was 37 year old initially was started on Methotrexate that he could not tolerate then placed on Embrel but he developed side effects and finally was tried on Humira injection but he developed neurologic sided effects and was hospitaized at [facility] for quiet some time, rheumatoid lung disease, previous history of loculated empyema with chest tube placement in January 2020, hypertension, hypothyroidism, history of DVT, remote history of tobacco use and dependence, was recently hospitalized at [facility] after he was admitted for an acute kidney injury with significant metabolic acidosis associated with the elevated creatinine and elevated BUN and hypotension at that time he was seen and evaluated by pulmonary and critical care medicine, he had a central line placed and at that time, he was placed on Levophed drip he was p laced on IV anabiotic as well but the patient recovered very fast and he had an echocardiogram that showed normal LV function and segmental hypokinesia, he was supposed to follow-up with Dr. 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 cotton jammer today and he had an episode when he was dizzy lightheaded and an episode of vomiting as well and he was sent to the emergency department for evaluation had a computed tomography of the chest as well as abdomen and pelvis that showed a thick walled pleural cavities posteriorly in the lower lungs with left-sided air-fluid level that has diminished in size from the prior computed tomography scan when he was in the hospital a few weeks back there is also associated compressive atelectasis and chronic consultation with multifocal areas of reticular nodular opacity in the upper lungs with a slight nodularity of the left upper lobe again this area of focal consultation has improved from the previous study that was done few weeks ago, patient was started on IV antibiotic with vancomycin and Zosyn as well as IV fluid, he was seen in consultation by pulmonary critical care in the emergency department as the patient blood pressure dropped and that he'll be transferred to the intensive care unit at this point in time I had long conve rsation with the patient and his at the bedside and the patient may need to have a chest tube placed for his possible right empyema, he did receive 3 L normal saline in the ER, and his blood pressure is marginal he may need to go on pressors if not recovered. 08/20:patient is sitting up in chair feeling about the same , complains of increased pain in the righ elbow, was seen earlier by pulmonary and the plan was to go for US-Guided left thoracenthesis due to to loculated left pleural effu unique and possible empyema, may need VATS, he denies any chest pain or shortness of breath, no abdominal pain nausea, vomiting or diarrhea, still have diarrhea negative for C.Diff, he seems to have accept to stay in the hospital this time as long as he needed to. 08/21: Patient sitting up in the recliner complaining of increased pain in his joints due to his rheumatoid arthritis with increased synovitis in both wrists both elbows and both shoulders he was started on hydrocortisone 100 mg IV push every 8 hours, to try to help with his blood pressure as well as his phonation, he is maintained on Owen 5/325 mg one tablet orally every 6 hours as needed for pain control, patient denies any chest pain is less short of breath, he continues to have increased coughing with yellow from production of green phlegm production, he had no fever or chills at this time he continues to be on Levothroid drip, patient has appeared to have increased swelling in both lower extremities as well as both ankles, he is maintained on IV antibiotic in the form of vancomycin as well as cefepime, infectious disease is following, patient is scheduled to go for ultrasound guidance thoracentesis of the left loculated pleural effusion tomorrow morning. 08/22: Patient remains in the intensive care unit. He has been afebrile, heart rate 100, blood pressure 95/62, pulse ox 97% on 2 L nasal cannula. Hemoglobin 8.8 and leukocytosis resolved. Creatinine 0.76, electrolytes normal. Sputum culture is positive for Aspergillus species. Blood culture showing no growth. Patient underwent diagnostic thoracentesis with interventional radiology today with removal of 45 mL of cloudy white fluid. Chest x-ray reveals no complications following left thoracentesis. Fluid has been sent for culture and cytology. Consult in place for cardiothoracic surgery to evaluate for VATS with decortication. 08/23: Patient remains in the intensive care unit. He did receive 1 dose of IV Lasix this morning ordered by nephrology. He is followed by cardiothoracic surgery was no plan for surgical intervention. ID has recommended cefepime and vancomycin for now. Expect antifungal agent ended as well. Patient denies any significant shortness of breath. He is comfortable sitting in a chair. Patient is having minimal cough and minimal sputum. Patient is achieving 1000 ml on incentive spirometry. Culture and cytology reports remain pending from thoracentesis. Repeat chest x-ray reveals patchy peripheral lung with lung zone and lower lung zone infiltrates persist unchanged. Patient has been afebrile, heart rate in the 90s and low 100s, pulse ox 91 on room air. Objective - Vital Signs Vital signs: Vital Signs Temp 98.0 F 08/23/20 04:00 Pulse 90 08/23/20 05:00 Resp 15 08/23/20 05:00 BP 115/82 08/23/20 05:00 Pulse Ox 93 L 08/23/20 05:00 Intake & Output 08/22/20 08/22/20 08/23/20 06:59 18:59 06:59 Intake Total 902.778 750 830 Output Total 550 0 200 Balance 352.778 750 630 Intake: IV 840 260 100 Cefepime 2 gm In Sodium 100 100 100 Chloride 0.9% 100 ml @ 25 mls/hr IVPB Q12HR [facility] Rx #:[id number] LR 200 160 0 Lactated Ringers 1,000 ml 40 @ 125 mls/hr IV .Q8H [facility] Rx#:[id number] Vancomycin 1,750 mg In 500 Sodium Chloride 0.9% 500 ml 500 ml @ 167 mls/hr IVPB Q12H [facility] Rx#: [id number] Intake, IV Titration 62.778 250 250 Amount Norepinephrine 4 mg In 62.778 Sodium Chloride 0.9% 250 ml @ 0.05 MCG/KG/MIN 17. 86 mls/hr IV .Q14H [facility] Rx #:[id number] Vancomycin 1,500 mg In 250 250 Sodium Chloride 0.9% 250 ml @ 125 mls/hr IVPB Q12H [facility] Rx#:[id number] Oral 240 480 Output: Urine 550 0 200 Other: Voiding Method Indwelling Catheter Indwelling Catheter Indwelling Catheter # Voids 1 1 1 # Bowel Movements 1 1 - Exam Review of Systems Constitutional: Reports anorexia, Reports chronic pain, Reports fatigue, Reports weakness, Reports weight loss Eyes: denies blurred vision, denies bulging eye, denies decreased vision, denies diplopia Ears, nose, mouth and throat: Denies dysphagia, Denies neck lump, Denies sore throat Respiratory: Reports dyspnea, Reports respiratory infections, Denies congestion, Denies cough with sputum, Denies home oxygen, Denies sleep apnea, Denies snoring, Denies wheezing Gastrointestinal: Reports bloating, Reports change in bowel habits, Reports diarrhea, Reports early satiety, Reports indigestion, Reports loss of appetite, Reports nausea, Reports vomiting, Denies abdominal pain, Denies belching, Denies heartburn, Denies hematemesis, Denies hematochezia, Denies melena Genitourinary: Denies dysuria, Denies nocturia Musculoskeletal: Denies myalgias Musculoskeletal: absent: ankle pain, ankle stiffness, ankle swelling, elbow pain, elbow stiffness, elbow swelling, foot pain, foot stiffness, foot swelling, hand pain, hand stiffness, hand swelling, hip pain, hip stiffness, hip swelling, knee pain, knee stiffness, knee swelling, shoulder pain, shoulder stiffness, shoulder swelling, wrist pain, wrist stiffness, wrist swelling Integumentary: Denies pruritus, Denies rash Neurological: Denies numbness, Denies weakness Psychiatric: Denies anxiety, Denies depression Endocrine: Denies fatigue, Denies weight change Physical examination: General: patient is 60 year old lying down in bed in moderate distress. HEENT: head ia atraumatic normocephalic, Pupils were equal round reactive to light and accommodations , extra ocular muscle movement were intact, mucous membranes of the mouth are somewhat dry. Neck: supple no JVP. Chest: decreased breath sounds at he bases with few ronchi no expiratory wheezes no chest wall tendernes or intercostal retractions. Heart: first heart sound is depressed, second heart sound is normal tachycardic there is BIRD 2/6 located at the left sternal border. Abdomen: soft, mild tenderness to the left lower quadrant positive bowel sounds, no guarding or rebound tenderness, no hepatosplenomegaly. Extremities: there is no edema or calf tenderness DP+ 2 Bilaterally, there is what appears to be a charcot joint in the right foot form arch collapse. Neurologic examination: patient is awake , alert and oriented X 3 CN II-XII are grossly intact, muscle power 4/5 in bilateral upper and lower extremities, deep tendon reflexes were normal. - Labs CBC & Chem 7: 08/23/20 05:23 08/23/20 05:23 Labs: Abnormal Lab Results - Last 24 Hours (Table) 08/23/20 Range/Units 05:23 WBC 11.6 H (3.8-10.6) k/uL RBC 3.45 L (4.30-5.90) m/uL Hgb 9.1 L (13.0-17.5) gm/dL Hct 29.5 L (39.0-53.0) % MCHC 30.7 L (31.0-37.0) g/dL RDW 17.0 H (11.5-15.5) % Neutrophils # 10.2 H (1.3-7.7) k/uL Lymphocytes # 0.9 L (1.0-4.8) k/uL Microbiology - Last 24 Hours (Table) 08/22/20 11:30 Acid Fast Bacilli Smear - Final Pleural Fluid Acid Fast Bacilli Culture - Preliminary 08/22/20 11:30 Gram Stain - Preliminary Pleural Fluid Body Fluid Culture - Preliminary 08/22/20 11:30 Fungal Culture - Preliminary Pleural Fluid 08/19/20 13:00 Blood Culture - Preliminary Blood No Growth after 72 hours 08/19/20 09:26 Blood Culture - Preliminary Blood No Growth after 72 hours 08/20/20 14:30 Gram Stain - Preliminary Sputum Sputum Culture - Preliminary Aspergillus species Assessment and Plan Assessment: Assessment and plan: 1. Acute hypoxemic respiratory failure secondary to loculated left-sided pleural effusion and possible empyema with what appears to be recurrent pneumonia. Patient was admitted to the intensive care unit, he was started on IV fluid resuscitation, required small dose of Levophed, continue IV antibiotic in the form of vancomycin and cefepime, ID consultation appreciated, interventional radiology performed ultrasound-guided thoracentesis of the left loculated pleural fluid for Gram stain and culture and cytology as well as LDH protein as well as pH for possible empyema. Culture positive for Aspergillus. Cardiothoracic surgery following with no plans for surgical intervention at this time. 2. Lactic acidosis. Continue IV fluid resuscitation, continue with IV antibiotic vancomycin and cefepime, repeat lactic acid is back to normal. 3. Sepsis with septic shock. Continue IV fluid resuscitation, continue IV antibiotic, try to wean Levothroid drip to keep his mean greater than 65 mmHg. 4. Acute kidney injury due to poor oral intake of fluid as well as hypotension with acute tubular necrosis. Continue IV fluid, continue to monitor the patient CMP continue to monitor urine output. 5. Leukocytosis secondary to severe sepsis. Continue IV fluid, continue IV antibiotic, repeat CBC tomorrow morning. 6. Rheumatoid arthritis and rheumatoid lung. Arava and Xeljanz had been on hold since April, patient was started on hydrocortisone 100 mg IV push every 8 hours. 7. History of empyema with Streptococcus requiring chest tube. His is a s imilar scenario may need a cardiothoracic surgery consultation. 8. Hypertension and hypertensive cardiovascular disease. currently hypotensive . Continue the IV fluid currently as well as IV pressors if needed 9. Hypothyroidism . we will continue with Synthroid 150 mcg orally daily. 10. DVT prophylaxis. we will start Lovenox 40 mg SC daily and bilateral knee high Cecilio Hose 11. GI prophylaxis. we will continue with Protonix 40 mg IVP daily. 12. Prognosis continues to be guarded.
--- NOTE | 2020-08-23 17:25 | PN ---
PROGRESS NOTE DATE OF SERVICE: 08/23/2020 REASON FOR FOLLOWUP: Pneumonia empyema. INTERVAL HISTORY: The patient is currently afebrile, has been breathing comfortably. The patient denies having any chest pain or shortness of breath or cough. Patient is status post thoracocentesis. No nausea, no vomiting, no abdominal pain or diarrhea. PHYSICAL EXAMINATION: Blood pressure 115/69 with pulse of 99, temperature 97.6. He is 91% on 2 L nasal cannula. General description is a middle-aged male up in the chair in no distress. RESPIRATORY SYSTEM: Unlabored breathing with decreased breath sounds at the base. No wheeze. HEART: S1, S2. Regular rate and rhythm. ABDOMEN: Soft. No tenderness. LABS: Hemoglobin 9.1, white count 11.6, BUN 15, creatinine 0.80. Sputum has been Aspergillus fumigatus. Pleural fluid culture so far pending. DIAGNOSTIC IMPRESSION AND PLAN: Patient admitted to hospital with pneumonia, possible empyema in this patient. Sputum has been negative for any resistant pathogen. Vancomycin will be discontinued to decrease risk of any nephrotoxicity. Pleural fluid will be followed and antibiotic adjusted further if needed. MMODL / IJN: [id number] /
[2020-08-23] MEDS: ASPIRIN 81 MG PO SCH (20:58)
[2020-08-23] MEDS: CHOLECALCIFEROL 25 MCG (1000 IU) TABLET PO SCH (20:58)
[2020-08-23] MEDS: ASCORBIC ACID 500 MG TAB PO SCH (20:58)
[2020-08-23] MEDS: HYDROcodone/APAP 5-325MG 1 EACH TAB PO PRN (21:07)
[2020-08-24] MEDS ORDERED: VANCOMYCIN 1,500 MG in SODIUM CHLORIDE 0.9% 250 ML IVPB SCH (05:00)
[2020-08-24] MEDS: LEVOTHYROXINE 75 MCG TAB PO SCH (05:07)
[2020-08-24] MEDS: CEFEPIME 2 GM in SODIUM CHLORIDE 0.9% 100 ML IVPB SCH ×2 (07:52→20:33)
[2020-08-24] MEDS: PANTOPRAZOLE 40 MG TABLET PO SCH (07:52)
[2020-08-24] MEDS: HYDROCORTISONE SUCCINATE 100 MG/2 ML VIAL IV SCH ×2 (07:52→16:09)
[2020-08-24] MEDS: HEPARIN SODIUM,PORCINE 5,000 UNIT/ML 1 ML VIAL SQ SCH ×2 (07:52→16:07)
[2020-08-24] MEDS: TRIAMCINOLONE 0.1% CREAM 80 GM TUBE TOPICAL SCH ×2 (07:53→20:34)
[2020-08-24] MEDS: IPRATROPIUM-ALBUTEROL 3 ML NEB INHALATION SCH ×3 (08:29→20:55)
[2020-08-24 08:32] LABS: Anisocytosis Slight; Basophils % (A) 0 %; Eosinophils % (A) 0 %; HCT 32.9 % (39.0-53.0); HGB 9.5 gm/dL (13.0-17.5); Hypochromasia Marked; Lymphocytes % (A) 11 %; MCH 25.4 pg (25.0-35.0); MCV 87.7 fL (80.0-100.0); Monocytes # (A) 0.5 k/uL (0-1.0); Monocytes % (A) 5 %; Neutrophils # (A) 7.5 k/uL (1.3-7.7); Neutrophils % (A) 83 %; Platelet Count 356 k/uL (150-450); Poikilocytosis Slight; RBC 3.75 m/uL (4.30-5.90); RDW 17.8 % (11.5-15.5)
[2020-08-24] MEDS ORDERED: FUROSEMIDE 10 MG/ML 4 ML VIAL IV STA (09:11)
--- NOTE | 2020-08-24 09:12 | P.PN ---
Subjective Patient is seen in follow for acute kidney injury. GFR back to baseline. Tolerating oral intake. Diarrhea improved. Edema is a little better today. Good urine output. Vital signs are stable. General: The patient appeared well nourished and normally developed. HEENT: Head exam is unremarkable. Neck is without jugular venous distension. LUNGS: Breath sounds decreased. HEART: Rate and Rhythm are regular. ABDOMEN: Soft, nontender. EXTREMITITES: 2+ edema. Objective - Vital Signs Vital signs: Vital Signs Temp 97.4 F L 08/24/20 07:24 Pulse 88 08/24/20 08:38 Resp 18 08/24/20 07:24 BP 118/71 08/24/20 07:24 Pulse Ox 91 L 08/24/20 07:24 Intake & Output 08/23/20 08/24/20 08/24/20 18:59 06:59 18:59 Intake Total 860 0 Output Total 2500 0 Balance -1640 0 Weight 100.7 kg Intake: IV 140 0 Cefepime 2 gm In Sodium 100 Chloride 0.9% 100 ml @ 25 mls/hr IVPB Q12HR [facility] Rx #:[id number] LR 40 0 Oral 720 Output: Urine 2500 0 Other: Voiding Method Toilet Toilet Toilet Urinal Urinal - Labs CBC & Chem 7: 08/24/20 08:19 08/23/20 05:23 Labs: Abnormal Lab Results - Last 24 Hours (Table) 08/24/20 Range/Units 08:19 RBC 3.75 L (4.30-5.90) m/uL Hgb 9.5 L (13.0-17.5) gm/dL Hct 32.9 L (39.0-53.0) % MCHC 29.0 L (31.0-37.0) g/dL RDW 17.8 H (11.5-15.5) % Microbiology - Last 24 Hours (Table) 08/19/20 13:00 Blood Culture - Preliminary Blood No Growth after 96 hours 08/19/20 09:26 Blood Culture - Preliminary Blood No Growth after 96 hours 08/22/20 11:30 Gram Stain - Preliminary Pleural Fluid Body Fluid Culture - Preliminary 08/20/20 14:30 Gram Stain - Final Sputum Sputum Culture - Final Aspergillus fumigatus Assessment and Plan Plan: Assessment: 1. Acute kidney injury mostly prerenal secondary to intravascular volume depletion and hypotension, improved with IV hydration. GFR back to baseline. 2. Pneumonia maintained on antibiotics. ? Empyema - status post thoracentesis on August 22 with 45 mL of fluid removed. 3. Septic shock secondary to pneumonia. Off vasopressors. On antibiotics. 4. History of rheumatoid arthritis. 5. Hypotension mostly secondary to sepsis. Cortisol level was also low. He is currently on Solu-Cortef. ACTH stimulation test will not be accurate at this time as he is on Solu-Cortef. 6. Diarrhea. C. diff negative. Resolved. 7. Lower extremity edema. Plan: Encouraged oral intake. Repeat Lasix 40 mg IV once today. Morning labs pending.
[2020-08-24 09:51] LABS: ALT 10 U/L (4-49); AST 16 U/L (17-59); African American GFR (CKD) >90 (>60 ml/min/1.73 sqM); Albumin 2.6 g/dL (3.5-5.0); Albumin/Globulin Ratio 0.7; Alkaline Phosphatase 140 U/L (38-126); Anion Gap 7 mmol/L; Blood Urea Nitrogen 19 mg/dL (9-20); Calcium 8.8 mg/dL (8.4-10.2); Carbon Dioxide 26 mmol/L (22-30); Chloride 106 mmol/L (98-107); Globulin 3.6 g/dL; Glucose 107 mg/dL (74-99); Magnesium 1.8 mg/dL (1.6-2.3); Non-African American GFR(CKD) >90 (>60 ml/min/1.73 sqM); Potassium 3.4 mmol/L (3.5-5.1); Sodium 139 mmol/L (137-145); Total Bilirubin 0.4 mg/dL (0.2-1.3); Total Protein 6.2 g/dL (6.3-8.2)
[2020-08-24] MEDS ORDERED: Potassium Replacement Protocol 1 EACH MISC MISCELLANE PRN (11:20)
--- NOTE | 2020-08-24 12:08 | XR ---
EXAMINATION TYPE: XR chest 2V DATE OF EXAM: 08/24/2020 COMPARISON: 08/23/2020 INDICATION: Pneumothorax TECHNIQUE: Frontal and lateral views of the chest are obtained. FINDINGS: The heart size is normal. The pulmonary vasculature is normal. Diffuse increased infiltrates are present through the bilateral mid and lower lung pandey. A loculate d left basilar pneumothorax may be present. Air-fluid levels present at the left diaphragm. Minimal f luid is present in the right diaphragm.. IMPRESSION: 1. Left basilar loculated pneumothorax, stable. 2. Bilateral lung infiltrates. Correlate for pneumonia and atelectasis
--- NOTE | 2020-08-24 12:40 | P.PN ---
Subjective Progress Note Date: 08/24/20 This is a 60-year-old male patient requesting my service with past medical history of rheumatoid arthritis on Arava that was diagnosed when he was 37 year old initially was started on Methotrexate that he could not tolerate then placed on Embrel but he developed side effects and finally was tried on Humira injection but he developed neurologic sided effects and was hospitaized at [facility] for quiet some time, rheumatoid lung disease, previous history of loculated empyema with chest tube placement in January 2020, hypertension, hypothyroidism, history of DVT, remote history of tobacco use and dependence, was recently hospitalized at [facility] after he was admitted for an acute kidney injury with significant metabolic acidosis associated with the elevated creatinine and elevated BUN and hypotension at that time he was seen and evaluated by pulmonary and critical care medicine, he had a central line placed and at that time, he was placed on Levophed drip he was p laced on IV anabiotic as well but the patient recovered very fast and he had an echocardiogram that showed normal LV function and segmental hypokinesia, he was supposed to follow-up with Dr. 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 assistant today and he had an episode when he was dizzy lightheaded and an episode of vomiting as well and he was sent to the emergency department for evaluation had a computed tomography of the chest as well as abdomen and pelvis that showed a thick walled pleural cavities posteriorly in the lower lungs with left-sided air-fluid level that has diminished in size from the prior computed tomography scan when he was in the hospital a few weeks back there is also associated compressive atelectasis and chronic consultation with multifocal areas of reticular nodular opacity in the upper lungs with a slight nodularity of the left upper lobe again this area of focal consultation has improved from the previous study that was done few weeks ago, patient was started on IV antibiotic with vancomycin and Zosyn as well as IV fluid, he was seen in consultation by pulmonary critical care in the emergency department as the patient blood pressure dropped and that he'll be transferred to the intensive care unit at this point in time I had long conve rsation with the patient and his at the bedside and the patient may need to have a chest tube placed for his possible right empyema, he did receive 3 L normal saline in the ER, and his blood pressure is marginal he may need to go on pressors if not recovered. 08/20:patient is sitting up in chair feeling about the same , complains of increased pain in the righ elbow, was seen earlier by pulmonary and the plan was to go for US-Guided left thoracenthesis due to to loculated left pleural effu unique and possible empyema, may need VATS, he denies any chest pain or shortness of breath, no abdominal pain nausea, vomiting or diarrhea, still have diarrhea negative for C.Diff, he seems to have accept to stay in the hospital this time as long as he needed to. 08/21: Patient sitting up in the recliner complaining of increased pain in his joints due to his rheumatoid arthritis with increased synovitis in both wrists both elbows and both shoulders he was started on hydrocortisone 100 mg IV push every 8 hours, to try to help with his blood pressure as well as his phonation, he is maintained on Morse 5/325 mg one tablet orally every 6 hours as needed for pain control, patient denies any chest pain is less short of breath, he continues to have increased coughing with yellow from production of green phlegm production, he had no fever or chills at this time he continues to be on Levothroid drip, patient has appeared to have increased swelling in both lower extremities as well as both ankles, he is maintained on IV antibiotic in the form of vancomycin as well as cefepime, infectious disease is following, patient is scheduled to go for ultrasound guidance thoracentesis of the left loculated pleural effusion tomorrow morning. 08/22: Patient remains in the intensive care unit. He has been afebrile, heart rate 100, blood pressure 95/62, pulse ox 97% on 2 L nasal cannula. Hemoglobin 8.8 and leukocytosis resolved. Creatinine 0.76, electrolytes normal. Sputum culture is positive for Aspergillus species. Blood culture showing no growth. Patient underwent diagnostic thoracentesis with interventional radiology today with removal of 45 mL of cloudy white fluid. Chest x-ray reveals no complications following left thoracentesis. Fluid has been sent for culture and cytology. Consult in place for cardiothoracic surgery to evaluate for VATS with decortication. 08/23: Patient remains in the intensive care unit. He did receive 1 dose of IV Lasix this morning ordered by nephrology. He is followed by cardiothoracic surgery was no plan for surgical intervention. ID has recommended cefepime and vancomycin for now. Expect antifungal agent ended as well. Patient denies any significant shortness of breath. He is comfortable sitting in a chair. Patient is having minimal cough and minimal sputum. Patient is achieving 1000 ml on incentive spirometry. Culture and cytology reports remain pending from thoracentesis. Repeat chest x-ray reveals patchy peripheral lung with lung zone and lower lung zone infiltrates persist unchanged. Patient has been afebrile, heart rate in the 90s and low 100s, pulse ox 91 on room air. 08/24: Repeat chest x-ray reveals left-sided basilar loculated pneumothorax, stable. Bilateral lung infiltrates. Correlate for pneumonia and atelectasis. WBC 9, hemoglobin 9.5. Potassium 3.4 and will be replaced. Patient is continued on cefepime and vancomycin per Dr. Blanton's recommendations. Patient in reaching 1000 on incentive spirometry. Patient is scheduled to see Dr. Dubois tomorrow. Cefepime and vancomycin had been discontinued by Dr. Blanton and started on Voriconazole. Objective - Vital Signs Vital signs: Vital Signs Temp 97.4 F L 08/24/20 07:24 Pulse 88 08/24/20 08:38 Resp 18 08/24/20 07:24 BP 118/71 08/24/20 07:24 Pulse Ox 91 L 08/24/20 07:24 Intake & Output 08/23/20 08/24/20 08/24/20 18:59 06:59 18:59 Intake Total 860 0 Output Total 2500 0 Balance -1640 0 Weight 100.7 kg Intake: IV 140 0 Cefepime 2 gm In Sodium 100 Chloride 0.9% 100 ml @ 25 mls/hr IVPB Q12HR [facility] Rx #:[id number] LR 40 0 Oral 720 Output: Urine 2500 0 Other: Voiding Method Toilet Toilet Toilet Urinal Urinal - Exam Review of Systems Constitutional: Reports anorexia, Reports chronic pain, Reports fatigue, Reports weakness, Reports weight loss Eyes: denies blurred vision, denies bulging eye, denies decreased vision, denies diplopia Ears, nose, mouth and throat: Denies dysphagia, Denies neck lump, Denies sore throat Respiratory: Reports dyspnea, Reports respiratory infections, Denies congestion, Denies cough with sputum, Denies home oxygen, Denies sleep apnea, Denies snoring, Denies wheezing Gastrointestinal: Reports bloating, Reports change in bowel habits, Reports diarrhea, Reports early satiety, Reports indigestion, Reports loss of appetite, Reports nausea, Reports vomiting, Denies abdominal pain, Denies belching, Denies heartburn, Denies hematemesis, Denies hematochezia, Denies melena Genitourinary: Denies dysuria, Denies nocturia Musculoskeletal: Denies myalgias Musculoskeletal: absent: ankle pain, ankle stiffness, ankle swelling, elbow pain, elbow stiffness, elbow swelling, foot pain, foot stiffness, foot swelling, hand pain, hand stiffness, hand swelling, hip pain, hip stiffness, hip swelling, knee pain, knee stiffness, knee swelling, shoulder pain, shoulder stiffness, shoulder swelling, wrist pain, wrist stiffness, wrist swelling Integumentary: Denies pruritus, Denies rash Neurological: Denies numbness, Denies weakness Psychiatric: Denies anxiety, Denies depression Endocrine: Denies fatigue, Denies weight change Physical examination: General: patient is 60 year old lying down in bed in moderate distress. HEENT: head ia atraumatic normocephalic, Pupils were equal round reactive to light and accommodations , extra ocular muscle movement were intact, mucous membranes of the mouth are somewhat dry. Neck: supple no JVP. Chest: decreased breath sounds at he bases with few ronchi no expiratory wheezes no chest wall tendernes or intercostal retractions. Heart: first heart sound is depressed, second heart sound is normal tachycardic there is BIRD 2/6 located at the left sternal border. Abdomen: soft, mild tenderness to the left lower quadrant positive bowel sounds, no guarding or rebound tenderness, no hepatosplenomegaly. Extremities: there is no edema or calf tenderness DP+ 2 Bilaterally, there is what appears to be a charcot joint in the right foot form arch collapse. Neurologic examination: patient is awake , alert and oriented X 3 CN II-XII are grossly intact, muscle power 4/5 in bilateral upper and lower extremities, deep tendon reflexes were normal. - Labs CBC & Chem 7: 08/25/20 06:04 08/25/20 06:04 Labs: Abnormal Lab Results - Last 24 Hours (Table) 08/24/20 08/24/20 Range/Units 08:19 08:19 RBC 3.75 L (4.30-5.90) m/uL Hgb 9.5 L (13.0-17.5) gm/dL Hct 32.9 L (39.0-53.0) % MCHC 29.0 L (31.0-37.0) g/dL RDW 17.8 H (11.5-15.5) % Potassium 3.4 L (3.5-5.1) mmol/L Glucose 107 H (74-99) mg/dL AST 16 L (17-59) U/L Alkaline Phosphatase 140 H (38-126) U/L Total Protein 6.2 L (6.3-8.2) g/dL Albumin 2.6 L (3.5-5.0) g/dL Microbiology - Last 24 Hours (Table) 08/22/20 11:30 Gram Stain - Preliminary Pleural Fluid Body Fluid Culture - Preliminary Aspergillus species 08/19/20 13:00 Blood Culture - Preliminary Blood No Growth after 96 hours 08/19/20 09:26 Blood Culture - Preliminary Blood No Growth after 96 hours 08/20/20 14:30 Gram Stain - Final Sputum Sputum Culture - Final Aspergillus fumigatus Assessment and Plan Assessment: Assessment and plan: 1. Acute hypoxemic respiratory failure secondary to loculated left-sided pleural effusion and possible empyema with what appears to be recurrent pneumonia. Patient was admitted to the intensive care unit, he was started on IV fluid resuscitation, required small dose of Levophed which has been weaned off, Cefepime and vancomycin discontinued by Dr. Blanton and started on Voriconazole, interventional radiology performed ultrasound-guided thoracentesis of the left loculated pleural fluid for Gram stain and culture and cytology as well as LDH protein as well as pH for possible empyema. Culture positive for Aspergillus. Cardiothoracic surgery following with no plans for surgical intervention at this time and we will reevaluate tomorrow. 2. Lactic acidosis. Continue IV fluid resuscitation, continue with IV antibiotic vancomycin and cefepime, repeat lactic acid is back to normal. 3. Sepsis with septic shock. Continue IV fluid resuscitation, continue IV antibiotic, try to wean Levothroid drip to keep his mean greater than 65 mmHg. 4. Acute kidney injury due to poor oral intake of fluid as well as hypotension with acute tubular necrosis. Continue IV fluid, continue to monitor the patient CMP continue to monitor urine output. 5. Leukocytosis secondary to severe sepsis. Continue IV fluid, continue IV antibiotic, repeat CBC tomorrow morning. 6. Rheumatoid arthritis and rheumatoid lung. Arava and Xeljanz had been on hold since April, patient was started on hydrocortisone 100 mg IV push every 8 hours. 7. History of empyema with Streptococcus requiring chest tube. His is a similar scenario may need a cardiothoracic surgery consultation. 8. Hypertension and hypertensive cardiovascular disease. currently hypotensive . Continue the IV fluid currently as well as IV pressors if needed 9. Hypothyroidism . we will continue with Synthroid 150 mcg orally daily. 10. DVT prophylaxis. we will start Lovenox 40 mg SC daily and bilateral knee high Cecilio Hose 11. GI prophylaxis. we will continue with Protonix 40 mg IVP daily. 12. Prognosis continues to be guarded.
[2020-08-24] MEDS: POTASSIUM CHLORIDE ER 20 MEQ TAB.ER PO SCH ×2 (12:45→14:11)
--- NOTE | 2020-08-24 14:47 | P.PN ---
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 Other medical history includes hypertension, hypothyroidism and previous history of DVT. Patient had a recent hospitalization from August 08 through 08/11/2020 hypotension, dehydration related to nausea vomiting diarrhea, acute kidney injury. Patient received antibiotics in the form of Zosyn and Levaquin for possibility of pneumonia, he is chest x-ray showed cranial perihilar pulmonary infiltrates with increased interstitial changes at the lung bases and was thought to be related to a combi nation of rheumatoid lung and chronic scarring. His last CT of the chest was on 07/19/2020 showing chronic changes to lower lungs, persistent irregular thick- walled pleural spaces in the posterior lung bases containing fluid and air with adjacent anterior lung with chronic consolidation or atelectasis. On 08/19/2020 patient came into the emergency department from Dr. GENE Carias's office where he w as being seen for a regular follow-up appointments. He was noted to have low pulse ox 70s and was sent in to the emergency department for evaluation. He has been having cough with yellow and sometimes blood-tinged sputum, appears amounts, denies any fever, COVID 19 was found to be negative, chest x-ray showed perihilar and basilar infiltrates without significant change from previous chest x-ray on 08/09/2020. Lab data showed leukocytosis with white blood cell count of 19.1, hemoglobin of 12.1, INR 1.5, sodium is 135, potassium is 3.9, chloride is 102, CO2 is 19, creatinine is 1.32, which has actually improved since his discharge from the hospital on 08/11/2020 when he was at 1.84. Lactic acid was elevated at 3.7, patient was given a total of 2 L in fluid boluses, troponin was negative at less than 0.012. Urinalysis showed no evidence of infection. CT chest showed thick-walled pleural cavities posteriorly in the lower lungs with left-sided air-fluid level with left-sided pleural fluid diminished most recent CT from 07/19/2020. There is associated compressive atelectasis and/or chronic consolidation. Persistent as it is lobe fissure, multifocal areas of reticular nodular opacity in the upper lungs remain present with slight nodularity in the left upper lobe. There is a focal consolidation improved from most recent study with some residual areas of scarring. We will emergency department patient became hypotensive with a blood pressure in the 70s, slightly tachycardic r emains in sinus mechanism, he is receiving his third liter bolus, his lactic acid did respond and improved he was started on antibiotics in the form of Zosyn and vancomycin The patient is seen today August 20 2020 in the intensive care unit. He is currently sitting up in a chair at the bedside. Awake and alert in no acute distress. Maintaining O2 saturations in the 90s on 2 L/m per nasal cannula. He did require a small dose of norepinephrine currently on 0.05 mcg/kg/m. He has lactated Ringer's at 100 MLS per hour. He remains on vancomycin and cefepime. Chest x-ray continues to show the left lower lobe effusion. White count 11.7. Hemoglobin 9.7. Sodium 135. Potassium 3.6. Creatinine 1.00. Blood cultures reveal no growth to date. Reevaluated today on 08/21/2020, remains in the ICU, still on norepinephrine at 0.04 mcg/kg/m. On LR at 1 25 mL per hour. On vancomycin and cefepime empirically, blood pressure remains marginal, went ahead and recommended Solu- Cortef 100 mg IV push every 8 hours and hopefully will be able to discontinue norepinephrine today. His IV fluid is cut down to KVO. Given 20 mg of Lasix IV push, and I have recommended that we monitor the patient in the ICU for the next 24 hours. Chest x-ray is basically the same, continues to show chronic finding, difficult to exclude underlying pneumonia/empyema. CT of the chest on admission was also reviewed, difficult to rule out underlying empyema. Clinically the patient is feeling better except for generally weak. WBC count is 12.5 hemoglobin is 9.9. Normal renal profile is normal blood cultures are negative so far. Sputum cultures are also negative so far. On 08/22/2020 patient seen in follow-up in the intensive care unit, he is awake and alert, oriented 3, sitting up in the recliner, currently on 2 L of oxygen his pulse ox is 95-100%, his been afebrile, hemodynamically he is stable, he is not on any vasopressor support. His lactate Ringer's running at 20 ML per hour, antibiotics include cefepime and vancomycin, blood pressure has been stable, so far blood and sputum cultures are negative, he denies chest pain, his breathing is comfortable. Today's labs have been reviewed, showing white blood cell count trending down, 10.2 today, hemoglobin is 8.8, electrolytes and renal profile are unremarkable. Serum cortisol level came back at 3, patient continues on stress doses of hydrocortisone 100 mg every 8 hours. Patient has not been stable, we'll consult interventional radiology for ultrasound-guided left thoracentesis On 08/23/2020 patient seen in follow-up in the intensive care unit, he is calm and comfortable, awake and alert, sitting up in the recliner, currently on room air with a pulse ox of 93-94%, his been afebrile, hemodynamically he is been stable, he is on IV LR at 20 ML per hour, no other drips. He is on cefepime and vancomycin for antibiotic coverage, yesterday he underwent left thoracentesis with removal of 43 mL of pleural fluid which was sent for cultures. Tolerated procedure well. His pleural fluid analysis revealed total fluid protein of 1.3 g, and fluid LDH of greater than 4500 consistent with exudative fluid. His microbiology data has been reviewed showing Aspergillus fumigate is in the sputum, his pleural fluid cultures are pending at this time, the cultures have shown no growth, hemodynamically has been stable, he is breathing easier, he still has cough mostly in the morning and the amount of secretions his bringing up is decreasing in amount. Lung sounds revealed a few scattered wheezes, and a few rhonchi at bilateral bases. Is tolerating oral intake. No abdominal pain, no nausea or vomiting, today's labs have been reviewed, white blood cell count is 11.2, hemoglobin is 9.1, sodium is 137, potassium is 4.0, chloride is 109, BUN is 15, creatinine 0.80. No acute events overnight. He is working on incentive spirometer, he is achieving 1000 today On 08/24/2020 patient seen in follow-up on medical surgical floor. He is awake and alert, in no acute distress, breathing comfortably, denies any chest pain, room air pulse ox is 94%, no fever or chills, today's chest x-ray shows left basilar loculated pneumothorax, stable in appearance, bilateral lung infiltrates. His pleural fluid cultures so far showing Aspergillus species, as does his sputum culture. Blood culture show no growth. The cervix is following, current antibiotic coverage includes cefepime, vancomycin has been discontinued, she received 1 dose of IV Lasix per nephrology. He has produced 2500 in urine output, and he is in -1.6 L over the last 24 hours, however he still has significant lower extremity edema Objective - Vital Signs Vital signs: Vital Signs Temp 97.4 F L 08/24/20 07:24 Pulse 103 H 08/24/20 12:51 Resp 18 08/24/20 12:51 BP 118/71 08/24/20 07:24 Pulse Ox 91 L 08/24/20 07:24 Intake & Output 08/23/20 08/24/20 08/24/20 18:59 06:59 18:59 Intake Total 860 0 Output Total 2500 0 720 Balance -1640 0 -720 Weight 100.7 kg Intake: IV 140 0 Cefepime 2 gm In Sodium 100 Chloride 0.9% 100 ml @ 25 mls/hr IVPB Q12HR [facility] Rx #:[id number] LR 40 0 Oral 720 Output: Urine 2500 0 720 Other: Voiding Method Toilet Toilet Toilet Urinal Urinal - Exam GENERAL EXAM: Alert, pleasant, 60-year-old male patient, on room air with a pulse ox of 94%, currently sitting up in chair at the bedside, comfortable in no apparent distress. HEAD: Normocephalic/atraumatic. EENT: PERRLA, EOMI, nonicteric. Moist mucous membranes, no neck masses, no JVD, no stridor. CHEST: No chest wall deformity. Symmetrical expansion. LUNGS: Bibasilar rhonchi, and a few scattered wheezes CVS: Regular rate and rhythm, normal S1 and S2, no gallops, no murmurs, no rubs ABDOMEN: Soft, nontender. No hepatosplenomegaly, normal bowel sounds, no guarding or rigidity. EXTREMITIES: No clubbing, 1+ lower extremity edema, no cyanosis, 2+ pulses and upper and lower extremities. MUSCULOSKELETAL: Muscle strength and tone normal. SPINE: No scoliosis or deformity SKIN: No rashes CENTRAL NERVOUS SYSTEM: Alert and oriented -3. No focal deficits, tone is normal in all 4 extremities. PSYCHIATRIC: Alert and oriented -3. Appropriate affect. Intact judgment and insight. - Labs CBC & Chem 7: 08/24/20 08:19 08/24/20 08:19 Labs: Abnormal Lab Results - Last 24 Hours (Table) 08/24/20 08/24/20 Range/Units 08:19 08:19 RBC 3.75 L (4.30-5.90) m/uL Hgb 9.5 L (13.0-17.5) gm/dL Hct 32.9 L (39.0-53.0) % MCHC 29.0 L (31.0-37.0) g/dL RDW 17.8 H (11.5-15.5) % Potassium 3.4 L (3.5-5.1) mmol/L Glucose 107 H (74-99) mg/dL AST 16 L (17-59) U/L Alkaline Phosphatase 140 H (38-126) U/L Total Protein 6.2 L (6.3-8.2) g/dL Albumin 2.6 L (3.5-5.0) g/dL Microbiology - Last 24 Hours (Table) 08/19/20 09:26 Blood Culture - Preliminary Blood No Growth after 120 hours 08/22/20 11:30 Gram Stain - Preliminary Pleural Fluid Body Fluid Culture - Preliminary Aspergillus species 08/19/20 13:00 Blood Culture - Preliminary Blood No Growth after 96 hours Assessment and Plan Plan: Assessment: #1. Acute hypoxic respiratory failure related to sepsis, septic shock, related to pneumonia, with chronic loculated effusions, rule out possibility of empyema. COVID 19 was ruled out per PCR #2. Bilateral hydropneumothorax, rule out possibility of empyema, status post ultrasound-guided left-sided thoracentesis on 08/22/2020 would removal of 45 mL of cloudy white fluid, which was exudative in nature, pleural fluid culture only showing Aspergillus, antibiotic coverage is with cefepime and vancomycin, it service is following, CT surgery has no plans for surgical intervention at this time #3. Recent admission to the hospital for hypotension, dehydration related to nausea vomiting diarrhea, acute kidney injury #4. Recurrent pulmonary infections, with history of streptococcal pneumonia and empyema requiring chest tube placement in January 2020 #5. Chronic loculated pneumothoraces, posterior, with air-fluid level seen on the CT imaging of the chest, the possibility of trapped lung, chronic scarring and possibility of empyema needs to be ruled out #6. Elevated d-dimer with no CT evidence for pulmonary embolism #7. History of rheumatoid arthritis and rheumatoid lung disease on Arava #8. Recent history of acute kidney injury, and admission lab work today shows improvement in his renal function #9. Hypertension #10. Hypothyroidism #11. Previous history of foot infections requiring antibiotics #12. Previous history of DVT Plan: Continue antibiotics per ID service recommendations, no fever or chills, so far pleural fluid cultures only showing Aspergillus, patient continues on cefepime, hemodynamically stable, no fever chills, he is breathing comfortably, no acute events overnight, CT surgery is following, so far no surgical intervention is planned. Increase activity as tolerated, Jeff wrap bilateral lower extremities, patient was given a dose of IV Lasix he is in negative fluid balance, we'll cut back the hydrocortisone to 50 mg every 8 hours. I performed a history & physical examination of the patient and discussed their management with my nurse practitioner, Марина Thompson. I reviewed the nurse practitioner's note and agree with the documented findings and plan of care. Lung sounds are positive for diminished breath sounds. The findings and the impression was discussed with the patient. I attest to the documentation by the nurse practitioner. Time with Patient: Less than 30
[2020-08-24] MEDS: ASCORBIC ACID 500 MG TAB PO SCH (20:33)
[2020-08-24] MEDS: ASPIRIN 81 MG PO SCH (20:33)
[2020-08-24] MEDS: CHOLECALCIFEROL 25 MCG (1000 IU) TABLET PO SCH (20:33)
[2020-08-24] MEDS: HYDROcodone/APAP 5-325MG 1 EACH TAB PO PRN (20:39)
[2020-08-24] MEDS: SODIUM CHLORIDE 0.9% IVPB SCH (22:27)
[2020-08-24] MEDS: VORICONAZOLE IVPB SCH (22:27)
--- NOTE | 2020-08-24 23:06 | PN ---
PROGRESS NOTE DATE OF SERVICE: 08/24/2020 REASON FOR FOLLOWUP: Left-sided empyema. INTERVAL HISTORY: The patient is currently afebrile, has been breathing comfortably. The patient denies having any chest pain or shortness of breath. Cough has decreased in intensity. No nausea, no vomiting, no abdominal pain or diarrhea. PHYSICAL EXAMINATION: Blood pressure 96/64, pulse of 103, temperature 97.9. He is 93% on room air. General description is a middle-aged male up in the chair in no distress. RESPIRATORY SYSTEM: Unlabored breathing with decreased intensity of breath sounds. No wheeze. HEART: S1, S2. Regular rate and rhythm. ABDOMEN: Soft. No tenderness. LABS: Hemoglobin is 9.5, white count 9.0, BUN of 19, creatinine 0.89. Pleural fluid is showing . DIAGNOSTIC IMPRESSION AND PLAN: Patient with left-sided empyema with cultures now showing aspergillus species. The patient will be started on 6 mg/kg x2 doses followed by 4 mg/kg. He will need oral voriconazole on discharge for a couple of , depending on his clinical response. Cefepime discontinued, as no bacterial pathogen has been grown. Continue with supportive care. MMODL / IJN: [id number] /
[2020-08-25] MEDS: HEPARIN SODIUM,PORCINE 5,000 UNIT/ML 1 ML VIAL SQ SCH ×2 (00:10→10:08)
[2020-08-25] MEDS: HYDROCORTISONE SUCCINATE 100 MG/2 ML VIAL IV SCH ×4 (00:14→23:47)
[2020-08-25] MEDS: LEVOTHYROXINE 75 MCG TAB PO SCH (05:54)
[2020-08-25] MEDS: IPRATROPIUM-ALBUTEROL 3 ML NEB INHALATION SCH ×3 (07:02→19:57)
[2020-08-25] MEDS ORDERED: DILTIAZEM DRIP BOLUS FROM BAG 1 MG SOLN IV STA (07:30)
--- NOTE | 2020-08-25 07:35 | XR ---
EXAMINATION TYPE: XR chest 2V DATE OF EXAM: 08/25/2020 COMPARISON: 08/24/2020 INDICATION: Effusion TECHNIQUE: Frontal and lateral views of the chest are obtained. FINDINGS: The heart size is normal. The pulmonary vasculature is prominent. Scattered bilateral lung infiltrates are present. Best visualized in lateral projection are of posterior pneumothoraces. Air-fluid levels are present p osteriorly.. IMPRESSION: 1. Loculated posterior basilar pneumothoraces, stable from prior exam. 2. Diffuse increased lung markings. Correlate for pneumonia and atelectasis.
[2020-08-25] MEDS ORDERED: DILTIAZEM 125 MG in SODIUM CHLORIDE 0.9% 100 ML IV SCH ×2 (08:00→09:30)
[2020-08-25 08:17] LABS: Glucose,Whole Blood 123 mg/dL (75-99)
[2020-08-25 08:30] LABS: HCT 29.7 % (39.6-50.0); HGB 8.8 g/dL (13.0-17.0); MCH 26.1 pg (27.0-32.0); MCHC 29.6 g/dL (32.0-37.0); MCV 88.1 fL (80.0-97.0); Mean Platelet Volume 10.8 fL (9.5-12.2); Platelet Count 372 X 10*3/uL (140-440); RBC 3.37 X 10*6/uL (4.40-5.60); RDW 17.9 % (11.5-14.5); WBC 10.09 X 10*3/uL (4.50-10.00)
--- NOTE | 2020-08-25 08:43 | P.PN ---
Subjective Patient is seen in follow for acute kidney injury. GFR back to baseline. Tolerating oral intake. Edema improving. Went into a-flutter this AM - on cardizem drip. No chest pain or shortness or breath. Vital signs are stable. General: The patient appeared well nourished and normally developed. HEENT: Head exam is unremarkable. Neck is without jugular venous distension. LUNGS: Breath sounds decreased. HEART: Irregular rate and rhythm. ABDOMEN: Soft, nontender. EXTREMITITES: 2+ edema. Objective - Vital Signs Vital signs: Vital Signs Temp 98.0 F 08/25/20 07:25 Pulse 140 H 08/25/20 07:55 Resp 20 08/25/20 07:55 BP 96/57 08/25/20 07:55 Pulse Ox 93 L 08/25/20 07:55 Intake & Output 08/24/20 08/25/20 08/25/20 18:59 06:59 18:59 Intake Total 100 300 Output Total 1320 Balance -1220 300 Intake: IV 100 Cefepime 2 gm In Sodium 100 Chloride 0.9% 100 ml @ 25 mls/hr IVPB Q12HR [facility] Rx #:[id number] Oral 300 Output: Urine 1320 Other: Voiding Method Toilet Toilet # Voids 9 - Labs CBC & Chem 7: 08/25/20 06:04 08/24/20 08:19 Labs: Abnormal Lab Results - Last 24 Hours (Table) 08/24/20 08/25/20 08/25/20 Range/Units 08:19 06:04 08:16 WBC 10.09 H (4.50-10.00) X 10*3/uL RBC 3.37 L (4.40-5.60) X 10*6/uL Hgb 8.8 L (13.0-17.0) g/dL Hct 29.7 L (39.6-50.0) % MCH 26.1 L (27.0-32.0) pg MCHC 29.6 L (32.0-37.0) g/dL RDW 17.9 H (11.5-14.5) % Absolute Nucleated RBC 0.03 H (0.00-0.00) X 10*3/uL NRBC/100 WBC Diff 0.3 H (0.0-0.0) /100 WBCS Potassium 3.4 L (3.5-5.1) mmol/L Glucose 107 H (74-99) mg/dL POC Glucose (mg/dL) 123 H (75-99) mg/dL AST 16 L (17-59) U/L Alkaline Phosphatase 140 H (38-126) U/L Total Protein 6.2 L (6.3-8.2) g/dL Albumin 2.6 L (3.5-5.0) g/dL Microbiology - Last 24 Hours (Table) 08/19/20 13:00 Blood Culture - Preliminary Blood No Growth after 120 hours 08/19/20 09:26 Blood Culture - Preliminary Blood No Growth after 120 hours 08/22/20 11:30 Gram Stain - Preliminary Pleural Fluid Body Fluid Culture - Preliminary Aspergillus species Assessment and Plan Plan: Assessment: 1. Acute kidney injury mostly prerenal secondary to intravascular volume depletion and hypotension, improved with IV hydration. GFR back to baseline. 2. Pneumonia maintained on antibiotics. ? Empyema - status post thoracentesis on August 22 with 45 mL of fluid removed. 3. Septic shock secondary to pneumonia. Off vasopressors. On antibiotics. 4. History of rheumatoid arthritis. 5. Hypotension mostly secondary to sepsis. Cortisol level was also low. He is currently on Solu-Cortef. ACTH stimulation test will not be accurate at this time as he is on Solu-Cortef. 6. Diarrhea. C. diff negative. Improved. 7. Lower extremity edema. Improving with diuresis. 8. A-flutter maintained on cardizem drip. Plan: Encouraged oral intake. Continue diuresis - lasix 40 mg IV daily. AM labs pending - replace lytes prn.
[2020-08-25] MEDS ORDERED: HEPARIN SODIUM,PORCINE 5,000 UNIT/ML 1 ML VIAL IV ONE (08:52)
--- NOTE | 2020-08-25 08:58 | P.PN ---
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 Other medical history includes hypertension, hypothyroidism and previous history of DVT. Patient had a recent hospitalization from August 08 through 08/11/2020 hypotension, dehydration re lated to nausea vomiting diarrhea, acute kidney injury. Patient received antibiotics in the form of Zosyn and Levaquin for possibility of pneumonia, he is chest x-ray showed cranial perihilar pulmonary infiltrates with increased interstitial changes at the lung bases and was thought to be related to a combination of rheumatoid lung and chronic scarring. His last CT of the chest was on 07/19/2020 showing chronic changes to lower lungs, persistent irregular thick-walled pleural spaces in the posterior lung bases containing fluid and air with adjacent anterior lung with chronic consolidation or atelectasis. On 08/19/2020 patient came into the emergency department from Dr. GENE Carias's office where he was being seen for a regular follow-up appointments. He was noted to have low pulse ox 70s and was sent in to the emergency department for evaluation. He has been having cough with yellow and sometimes blood-tinged sputum, appears amounts, denies any fever, COVID 19 was found to be negative, chest x-ray showed perihilar and basilar infiltrates without significant change from previous chest x-ray on 08/09/2020. Lab data showed leukocytosis with white blood cell count of 19.1, hemoglobin of 12.1, INR 1.5, sodium is 135, potassium is 3.9, chloride is 102, CO2 is 19, creatinine is 1.32, which has actually improved since his discharge from the hospital on 08/11/2020 when he was at 1.84. Lactic acid was elevated at 3.7, patient was given a total of 2 L in fluid boluses, troponin was negative at less than 0.012. Urinalysis showed no evidence of infection. CT chest showed thick-walled pleural cavities posteriorly in the lower lungs with left-sided air-fluid level with left-sided pleural fluid diminished most recent CT from 07/19/2020. There is associated compressive atelectasis and/or chronic consolidation. Persistent as it is lobe fissure, multifocal areas of reticular nodular opacity in the upper lungs remain present with slight nodularity in the left upper lobe. There is a focal consolidation improved from most recent study with some residual areas of scarring. We will emergency department patient became hypotensive with a blood pressure in the 70s, slightly tachycardic remains in sinus mechanism, he is receiving his third liter bolus, his lactic acid did respond and improved he was started on antibiotics in the form of Zosyn and vancomycin The patient is seen today August 20 2020 in the intensive care unit. He is currently sitting up in a chair at the bedside. Awake and alert in no acute distress. Maintaining O2 saturations in the 90s on 2 L/m per nasal cannula. He did require a small dose of norepinephrine currently on 0.05 mcg/kg/m. He has lactated Ringer's at 100 MLS per hour. He remains on vancomycin and cefepime. Chest x-ray continues to show the left lower lobe effusion. White count 11.7. Hemoglobin 9.7. Sodium 135. Potassium 3.6. Creatinine 1.00. Blood cultures reveal no growth to date. Reevaluated today on 08/21/2020, remains in the ICU, still on norepinephrine at 0.04 mcg/kg/m. On LR at 1 25 mL per hour. On vancomycin and cefepime empirically, blood pressure remains marginal, went ahead and recommended Solu-Cortef 100 mg IV push every 8 hours and hopefully will be able to discontinue norepinephrine today. His IV fluid is cut down to KVO. Given 20 mg of Lasix IV push, and I have recommended that we monitor the patient in the ICU for the next 24 hours. Chest x-ray is basically the same, continues to show ch ronic finding, difficult to exclude underlying pneumonia/empyema. CT of the chest on admission was also reviewed, difficult to rule out underlying empyema. Clinically the patient is feeling better except for generally weak. WBC count is 12.5 hemoglobin is 9.9. Normal renal profile is normal blood cultures are negative so far. Sputum cultures are also negative so far. On 08/22/2020 patient seen in follow-up in the intensive care unit, he is awake and alert, oriented 3, sitting up in the recliner, currently on 2 L of oxygen his pulse ox is 95-100%, his been afebrile, hemodynamically he is stable, he is not on any vasopressor support. His lactate Ringer's running at 20 ML per hour, antibiotics include cefepime and vancomycin, blood pressure has been stable, so far blood and sputum cultures are negative, he denies chest pain, his breathing is comfortable. Today's labs have been reviewed, showing white blood cell count trending down, 10.2 today, hemoglobin is 8.8, electrolytes and renal profile are unremarkable. Serum cortisol level came back at 3, patient continues on stress doses of hydrocortisone 100 mg every 8 hours. Patient has not been stable, we'll consult interventional radiology for ultrasound-guided left thoracentesis On 08/23/2020 patient seen in follow-up in the intensive care unit, he is calm and comfortable, awake and alert, sitting up in the recliner, currently on room air with a pulse ox of 93-94%, his been afebrile, hemodynamically he is been stable, he is on IV LR at 20 ML per hour, no other drips. He is on cefepime and vancomycin for antibiotic coverage, yesterday he underwent left thoracentesis with removal of 43 mL of pleural fluid which was sent for cultures. Tolerated procedure well. His pleural fluid analysis revealed total fluid protein of 1.3 g, and fluid LDH of greater than 4500 consistent with exudative fluid. His microbiology data has been reviewed showing Aspergillus fumigate is in the sputum, his pleural fluid cultures are pending at this time, the cultures have shown no growth, hemodynamically has been stable, he is breathing easier, he still has cough mostly in the morning and the amount of secretions his bringing up is decreasing in amount. Lung sounds revealed a few scattered wheezes, and a few rhonchi at bilateral bases. Is tolerating oral intake. No abdominal pain, no nausea or vomiting, today's labs have been reviewed, white blood cell count is 11.2, hemoglobin is 9.1, sodium is 137, potassium is 4.0, chloride is 109, BUN is 15, creatinine 0.80. No acute events overnight. He is working on incentive spirometer, he is achieving 1000 today On 08/24/2020 patient seen in follow-up on medical surgical floor. He is awake and alert, in no acute distress, breathing comfortably, denies any chest pain, room air pulse ox is 94%, no fever or chills, today's chest x-ray shows left basilar loculated pneumothorax, stable in appearance, bilateral lung infiltrates. His pleural fluid cultures so far showing Aspergillus species, as does his sputum culture. Blood culture show no growth. The cervix is follow ing, current antibiotic coverage includes cefepime, vancomycin has been discontinued, she received 1 dose of IV Lasix per nephrology. He has produced 2500 in urine output, and he is in -1.6 L over the last 24 hours, however he still has significant lower extremity edema. The patient is seen today 08/25/2020 in follow-up in the intensive care unit. He was transferred here earlier this morning after developing atrial fibrillation/flutter with a rapid ventricular response. He was initiated on C ardizem at 5 mg per hour. He has 0.9 normal saline at 20 ML's per hour. He is currently awake and alert in no acute distress. No worsening shortness of breath, cough or congestion. No chest pain or palpitations. He sitting up in a chair at the bedside. Maintaining O2 saturations in the 90s on 2 L/m per nasal cannula. Chest x-ray does reveal loculated posterior basilar pneumothoraces, stable from previous exam. There is diffuse increased lung markings. Correlate for pneumonia and atelectasis. Pleural fluid cultures is positive for Aspergillus species. White count 10.9. Hemoglobin 8.8. Sodium 139. Potassium 3.4. Creatinine 0.89. He remains on bronchodilators, IV diuretics, IV Solu- Cortef. Continued on voriconazole. Objective - Vital Signs Vital signs: Vital Signs Temp 97.6 F 08/25/20 08:00 Pulse 174 H 08/25/20 08:00 Resp 16 08/25/20 08:00 BP 105/62 08/25/20 08:00 Pulse Ox 93 L 08/25/20 08:00 Intake & Output 08/24/20 08/25/20 08/25/20 18:59 06:59 18:59 Intake Total 100 300 Output Total 1320 Balance -1220 300 Intake: IV 100 Cefepime 2 gm In Sodium 100 Chloride 0.9% 100 ml @ 25 mls/hr IVPB Q12HR [facility] Rx #:[id number] Oral 300 Output: Urine 1320 Other: Voiding Method Toilet Toilet # Voids 9 - Exam GENERAL EXAM: Alert, very pleasant 60-year-old gentleman, on 2 L nasal cannula, comfortable in no apparent distress. HEAD: Normocephalic. EYES: Normal reaction of pupils, equal size. NOSE: Clear with pink turbinates. THROAT: No erythema or exudates. NECK: No masses, no JVD. CHEST: No chest wall deformity. LUNGS: Equal air entry with few scattered rhonchi, crackles in the posterior bases. CVS: S1 and S2 normal with no audible murmur, irregular rhythm. Tachycardic. ABDOMEN: No hepatosplenomegaly, normal bowel sounds, no guarding or rigidity. SPINE: No scoliosis or deformity SKIN: No rashes CENTRAL NERVOUS SYSTEM: No focal deficits, tone is normal in all 4 extremities. EXTREMITIES: There is 2+ peripheral edema. No clubbing, no cyanosis. Peripheral pulses are intact. - Labs CBC & Chem 7: 08/25/20 06:04 08/24/20 08:19 Labs: Abnormal Lab Results - Last 24 Hours (Table) 08/24/20 08/25/20 08/25/20 Range/Units 08:19 06:04 08:16 WBC 10.09 H (4.50-10.00) X 10*3/uL RBC 3.37 L (4.40-5.60) X 10*6/uL Hgb 8.8 L (13.0-17.0) g/dL Hct 29.7 L (39.6-50.0) % MCH 26.1 L (27.0-32.0) pg MCHC 29.6 L (32.0-37.0) g/dL RDW 17.9 H (11.5-14.5) % Absolute Nucleated RBC 0.03 H (0.00-0.00) X 10*3/uL NRBC/100 WBC Diff 0.3 H (0.0-0.0) /100 WBCS Potassium 3.4 L (3.5-5.1) mmol/L Glucose 107 H (74-99) mg/dL POC Glucose (mg/dL) 123 H (75-99) mg/dL AST 16 L (17-59) U/L Alkaline Phosphatase 140 H (38-126) U/L Total Protein 6.2 L (6.3-8.2) g/dL Albumin 2.6 L (3.5-5.0) g/dL Microbiology - Last 24 Hours (Table) 08/19/20 13:00 Blood Culture - Preliminary Blood No Growth after 120 hours 08/19/20 09:26 Blood Culture - Preliminary Blood No Growth after 120 hours 08/22/20 11:30 Gram Stain - Preliminary Pleural Fluid Body Fluid Culture - Preliminary Aspergillus species Assessment and Plan Assessment: 1 Acute hypoxic respiratory failure secondary to sepsis, septic shock, related to pneumonia, with chronic loculated effusions, possible empyema. Cultures positive for Aspergillus species. 2 Bilateral hydropneumothorax, possible empyema, status post ultrasound-guided left-sided thoracentesis on 08/22/2020 with 45 ML's of cloudy white fluid removed, showing Aspergillus. Remains on voriconazole. 3 Recent admission for hypotension, dehydration secondary to nausea, vomiting, acute kidney injury with diarrhea. 4 Recent pulmonary infections with history of streptococcal pneumonia, empyema requiring chest tube placement in January 2020. 5 Chronic loculated pneumothoraces, posterior, with air-fluid seen on CAT scan imaging on the chest. Possibility of trapped lung, chronic scarring and possibility of empyema. 6 History of rheumatoid arthritis and rheumatoid lung disease. On Arava 7 Recent history of acute kidney injury 8 Hypertension 9 Hypothyroidism 10 Previous history of DVT. 11 New-onset atrial fibrillation/flutter with rapid ventricular response curr ently on a Cardizem drip Plan: The patient was seen and evaluated by Dr. Dutton. Chest x-ray and labs reviewed. Microbiology reviewed. We will continue with the current treatment plan. Continue diuretics. Continued on a Cardizem drip. We will continue to follow and make further recommendations based on his clinical status. Critical care time 36 minutes I, the cosigning physician, performed a history & physical examination of the patient. Lungs sounds bilateral scattered rhonchi and crackles in the bilateral bases. Maintaining good O2 saturations in the 90s on 2 L/m per nasal cannula. I discussed the assessment and plan of care with my nurse practitioner, Morena leone. I attest to the above note as dictated by her.
[2020-08-25] MEDS: FUROSEMIDE 10 MG/ML 4 ML VIAL IV SCH (09:43)
[2020-08-25] MEDS: PANTOPRAZOLE 40 MG TABLET PO SCH (09:43)
[2020-08-25] MEDS: HEPARIN SOD,PORK IN 0.45% NACL 25,000 UNIT in 0.45% NACL 1 250ML.BAG IV SCH (09:51)
[2020-08-25 09:56] LABS: INR 1.1 (<1.2); Prothrombin Time 11.2 sec (9.0-12.0)
[2020-08-25 10:08] LABS: Partial Thromboplastin Time 21.3 sec (22.0-30.0)
[2020-08-25] MEDS: TRIAMCINOLONE 0.1% CREAM 80 GM TUBE TOPICAL SCH ×2 (10:08→20:38)
[2020-08-25 10:12] LABS: Anisocytosis (M) 2+; Basophils # (M) 0 X 10*3/uL (0.00-0.10); Eosinophils # (M) 0 X 10*3/uL (0.04-0.35); Lymphocytes # (M) 1.01 X 10*3/uL (0.90-5.00); Metamyelocytes % 1 % (0-0); Neutrophils # (M) 8.48 X 10*3/uL (2.00-8.90); Neutrophils % (M) 84 %; Stomatocytes 2+
[2020-08-25 10:14] LABS: African American GFR (CKD) 113.3 (60.0-200.0); Albumin/Globulin Ratio 1.07 (1.60-3.17); Anion Gap 7.2 mmol/L (4.00-12.00); Calcium 8.5 mg/dL (8.7-10.3); Carbon Dioxide 27.8 mmol/L (21.6-31.8); Globulin 2.8 g/dL (1.6-3.3); Non-African American GFR(CKD) 97.8 (60.0-200.0); Total Bilirubin 0.2 mg/dL (0.3-1.2); Total Protein 5.8 g/dL (6.2-8.2)
[2020-08-25] MEDS ORDERED: DEXTROSE 5% IN WATER 250 ML with AMIODARONE 300 MG IV ONE (10:30)
[2020-08-25] MEDS: SODIUM CHLORIDE 0.9% IVPB SCH (10:36)
[2020-08-25] MEDS: VORICONAZOLE IVPB SCH (10:36)
[2020-08-25] MEDS: POTASSIUM CHLORIDE ER 20 MEQ TAB.ER PO SCH ×5 (10:40→20:19)
[2020-08-25 10:50] LABS: Erythrocyte Sedimentation Rate >140 mm/Hr (0-20)
--- NOTE | 2020-08-25 11:45 | P.CRDCN ---
History of Present Illness History of present illness: Patient was transferred to the ICU from the medical floor for tachycardia His twelve-lead ECG shows an atrial tachycardia/likely atrial flutter with RVR at 150 beats a minute He was admitted to the medical floor for acute hypoxic respiratory failure secondary to sepsis. He has chronic loculated effusions likely empyema and cultures are positive for Aspergillus He has bilateral hydropneumothorax status post ultrasound-guided thoracentesis on August 22 He is currently on IV Cardizem He is resting comfortably in bed denies any chest discomfort and does not appear short of breath. Past history of rheumatoid arthritis, acute kidney injury recently, hypertension, hypothyroidism and a history of DVT On examination breath sounds are reduced bilaterally Heart sounds are tachycardic no murmurs Blood pressure 105/62 mmHg pulse rate 140-150 beats a minute Labs are reviewed White count 10,000 hemoglobin 8.8, platelet count 3 and 72,000 Sodium 146, potassium 3.0, BUN 24 and creatinine 0.8 AST 18, ALT 13 Impression Atrial flutter with RVR Fungal infection in the lung with empyema Suggest Currently he is on IV Cardizem that this has not affected his heart rate or controlled to 99 300 mg of IV amiodarone bolus 1 Continue anticoagulation with heparin for now His atrial flutter began this morning Past Medical History Past Medical History: Deep Vein Thrombosis (DVT), GERD/Reflux, Hyperlipidemia, Hypertension, Neurologic Disorder, Renal Disease, Respiratory Disorder, Rheumatoid Arthritis (RA), Thyroid Disorder Additional Past Medical History / Comment(s): Pt recently admitted to [facility] on 08/08/20 with acute hypoxic respiratory failure 2ndary to hypovolemia from N/V/D, acute kidney injury, hypovolemic shock. Other hx: Rheumatoid arthritis, rheumatoid lungs with chronic interstitial lung disease maintained on Arava and chronic steroids in the past, previous history of pneumonia/empyema with Streptococcus and the patient required chest tube drainage - December 2019, past urinary retention, hypothyroidism, previous history of R foot infections requiring PICC line insertion, history of DVT L arm, nephrolithiasis, recent hospitalization where he required one hemodialysis session. History of Any Multi-Drug Resistant Organisms: None Reported Past Surgical History: Back Surgery, Orthopedic Surgery, Tonsillectomy Additional Past Surgical History / Comment(s): Temporary hemodialysis cath, lithotripsy, colonoscopy, bronchoscopies, back surgery d/t herniated disc, bilateral carpal tunnel releases, bunions removed from feet, R foot plate for arch since removed, benign nodule off R hip, bilateral wrist ganglion cyst removals; bilateral chest tube placement December 2019 Past Anesthesia/Blood Transfusion Reactions: Previous Problems w/ Anesthesia Additional Past Anesthesia/Blood Transfusion Reaction / Comment(s): slow to awaken x1. Past Psychological History: No Psychological Hx Reported Smoking Status: Former smoker Past Alcohol Use History: None Reported Past Drug Use History: None Reported - Past Family History Mother Family Medical History: Cancer Additional Family Medical History / Comment(s): lung with mets brain Father Family Medical History: No Reported History Additional Family Medical History / Comment(s): states, "he just ." Brother(s) Family Medical History: No Reported History Sister(s) Family Medical History: No Reported History Additional Family Medical History / Comment(s): Patient has 2 step daughters. Medications and Allergies Home Medications Medication Instructions Recorded Confirmed Type Levothyroxine Sodium [Synthroid] 150 mcg PO DAILY 10/17/16 08/19/20 History Albuterol Inhaler [Ventolin Hfa 2 puff INHALATION RT-QID PRN 12/30/19 08/19/20 History Inhaler] Ascorbic Acid [Vitamin C] 2,000 mg PO HS 07/13/20 08/19/20 History Cholecalciferol [Vitamin D3 (25 2,000 unit PO HS 07/13/20 08/19/20 History Mcg = 1000 Iu)] Ipratropium-Albuterol Nebulize 3 ml INHALATION RT-QID PRN 07/13/20 08/19/20 History [Duoneb 0.5 mg-3 mg/3 ml Soln] Aspirin 81 mg PO HS chew 08/11/20 08/19/20 Rx Metoprolol Succinate (ER) [Toprol 25 mg PO DAILY #30 tab.er.24h 08/11/20 08/19/20 Rx XL] Levofloxacin [Levaquin] 250 mg PO DAILY 08/19/20 08/19/20 History Ondansetron [Zofran] 4 mg PO QID PRN 08/19/20 08/19/20 History Allergies Allergy/AdvReac Type Severity Reaction Status Date / Time No Known Allergies Allergy Verified 08/19/20 10:37 Physical Exam Vitals: Vital Signs Temp Pulse Pulse Pulse Resp BP Pulse Ox 08/25/20 08:00 97.6 F 174 H 16 105/62 93 L 08/25/20 07:55 140 H 20 96/57 93 L 08/25/20 07:49 150 H 20 86/51 90 L 08/25/20 07:46 147 H 20 92/59 97 08/25/20 07:44 145 H 20 89/55 96 08/25/20 07:25 98.0 F 145 H 16 88/33 91 L 08/25/20 07:03 144 H 08/25/20 00:03 97.9 F 144 H 100/67 92 L 08/24/20 19:38 97.9 F 103 H 96/64 93 L 08/24/20 19:25 103 H 18 08/24/20 14:17 98.2 F 107 H 18 105/58 91 L 08/24/20 12:51 103 H 18 08/24/20 12:50 82 08/24/20 12:39 81 Intake and Output 08/24/20 08/25/20 08/25/20 22:59 06:59 14:59 Intake Total 400 40 Output Total 600 1400 Balance -200 -1360 Intake: IV 100 40 0.9 40 Cefepime 2 gm In Sodium 100 Chloride 0.9% 100 ml @ 25 mls/hr IVPB Q12HR [facility] Rx #:[id number] Oral 300 Output: Urine 600 1400 Other: Voiding Method Toilet Toilet Urinal # Voids 9 Results 08/25/20 06:04 08/25/20 06:04 Cardiac Enzymes 08/25/20 Range/Units 06:04 AST 18 (14-35) U/L Coagulation 08/25/20 Range/Units 09:08 PT 11.2 (9.0-12.0) sec APTT 21.3 L (22.0-30.0) sec CBC 08/25/20 Range/Units 06:04 WBC 10.09 H (4.50-10.00) X 10*3/uL RBC 3.37 L (4.40-5.60) X 10*6/uL Hgb 8.8 L (13.0-17.0) g/dL Hct 29.7 L (39.6-50.0) % Plt Count 372 (140-440) X 10*3/uL Comprehensive Metabolic Panel 08/25/20 Range/Units 06:04 Sodium 146 H (135-145) mmol/L Potassium 3.0 L (3.5-5.5) mmol/L Chloride 111 H (96-109) mmol/L Carbon Dioxide 27.8 (21.6-31.8) mmol/L BUN 24.0 (9.0-27.0) mg/dL Creatinine 0.8 (0.6-1.5) mg/dL Glucose 107 (70-110) mg/dL Calcium 8.5 L (8.7-10.3) mg/dL AST 18 (14-35) U/L ALT 13 (10-49) U/L Alkaline Phosphatase 138 H (41-126) U/L Total Protein 5.8 L (6.2-8.2) g/dL Albumin 3.00 L (3.80-4.90) g/dL Current Medications Generic Name Dose Route Start Last Admin Trade Name Freq PRN Reason Stop Dose Admin Acetaminophen 650 mg 08/19/20 18:15 08/20/20 09:36 Acetaminophen Tab 325 Mg Tab PO 650 mg Q6HR PRN Administration Fever and/ or Pain Hydrocodone Bitart/Acetaminophen 1 each 08/20/20 13:28 08/24/20 20:39 Hydrocodone/Apap 5-325mg 1 Each Tab PO 1 each Q6HR PRN Administration Pain Albuterol/Ipratropium 3 ml 08/19/20 15:37 Ipratropium-Albuterol 3 Ml Neb INHALATION RT-QID PRN Shortness Of Breath Albuterol/Ipratropium 3 ml 08/19/20 20:00 08/25/20 07:02 Ipratropium-Albuterol 3 Ml Neb INHALATION Not Given RT-TID [facility] Ascorbic Acid 2,000 mg 08/19/20 21:00 08/24/20 20:33 Ascorbic Acid 500 Mg Tab PO 2,000 mg HS [facility] Administration Aspirin 81 mg 08/19/20 21:00 08/24/20 20:33 Aspirin 81 Mg PO 81 mg HS [facility] Administration Cholecalciferol 50 mcg 08/19/20 21:00 08/24/20 20:33 Cholecalciferol 25 Mcg (1000 Iu) Tablet PO 50 mcg HS [facility] Administration Furosemide 40 mg 08/25/20 09:00 08/25/20 09:43 Furosemide 10 Mg/Ml 4 Ml Vial IV 40 mg DAILY [facility] Administration Heparin Sodium (Porcine) 0 unit 08/25/20 08:52 Heparin Sodium,Porcine 5,000 Unit/Ml 1 Ml Vial IV PER PROTOCOL PRN Low PTT Protocol Hydrocortisone Sodium Succinate 50 mg 08/24/20 16:00 08/25/20 09:44 Hydrocortisone Succinate 100 Mg/2 Ml Vial IV 50 mg Q8HR [facility] Administration Voriconazole 600 mg/ Sodium 250 mls @ 125 mls/hr 08/24/20 22:00 08/25/20 10: 36 Chloride IVPB 08/25/20 11:59 125 mls/hr Q12H [facility] Administration Voriconazole 400 mg/ Sodium 250 mls @ 125 mls/hr 08/25/20 21:00 Chloride IVPB Q12HR [facility] Diltiazem HCl 125 mg/ Sodium 125 mls @ 5 mls/hr 08/25/20 09:30 08/25/20 08:50 Chloride IV 10 mg/hr .Q24H [facility] 10 mls/hr Administration Protocol 5 MG/HR Heparin Sodium/Sodium Chloride 250 mls @ 10 mls/hr 08/25/20 09:00 08/25/20 09:51 25,000 unit/ Sodium Chloride IV 9.93 units/kg/hr .Q24H [facility] 10 mls/hr Administration Protocol 9.93 UNITS/KG/HR Amiodarone HCl 300 mg/ 256 mls @ 128 mls/hr 08/25/20 10:30 08/25/20 11:25 Dextrose/Water IV 08/25/20 12:29 128 mls/hr .Q2H ONE Administration Levothyroxine Sodium 150 mcg 08/20/20 06:30 08/25/20 05:54 Levothyroxine 75 Mcg Tab PO 150 mcg DAILY@0630 [facility] Administration Miscellaneous Information 1 each 08/20/20 09:28 Potassium Replacement Protocol 1 Each Misc MISCELLANE DAILY PRN Per Protocol Protocol Miscellaneous Information 1 each 08/24/20 11:20 Potassium Replacement Protocol 1 Each Misc MISCELLANE DAILY PRN Per Protocol Protocol Naloxone HCl 0.2 mg 08/19/20 12:02 Naloxone 0.4 Mg/Ml 1 Ml Vial IV Q2M PRN Opioid Reversal Pantoprazole Sodium 40 mg 08/23/20 07:30 08/25/20 09:43 Pantoprazole 40 Mg Tablet PO 40 mg [id number] [facility] Administration Potassium Chloride 20 meq 08/25/20 11:00 08/25/20 11:37 Potassium Chloride Er 20 Meq Tab.Er PO 08/25/20 12:01 20 meq Q1HR [facility] Administration Protocol Triamcinolone Acetonide 1 applic 08/20/20 21:00 08/25/20 10:08 Triamcinolone 0.1% Cream 80 Gm Tube TOPICAL Not Given BID [facility] Intake and Output 08/24/20 08/25/20 08/25/20 22:59 06:59 14:59 Intake Total 400 40 Output Total 600 1400 Balance -200 -1360 Intake: IV 100 40 0.9 40 Cefepime 2 gm In Sodium 100 Chloride 0.9% 100 ml @ 25 mls/hr IVPB Q12HR [facility] Rx #:[id number] Oral 300 Output: Urine 600 1400 Other: Voiding Method Toilet Toilet Urinal # Voids 9 08/25/20 06:04 08/25/20 06:04
--- NOTE | 2020-08-25 13:28 | PN ---
PROGRESS NOTE DATE OF SERVICE: 08/25/2020 REASON FOR FOLLOWUP: Aspergillosis. INTERVAL HISTORY: The patient is currently afebrile. The patient has been transferred down to the ICU because of atrial fibrillation with RVR. The patient denies having any chest pain or shortness of breath. Minimal cough. No abdominal pain or diarrhea. PHYSICAL EXAMINATION: Blood pressure is 86/66, pulse is 147, temperature is 97.6. He is 93% on room air. General description is a middle-aged male up in the chair in no distress. RESPIRATORY SYSTEM: Unlabored breathing, decreased breath sounds at the bases. No wheeze. HEART: S1, S2. Regular rate and rhythm. ABDOMEN: Soft, no tenderness. LABS: Hemoglobin 8.8, white count 10.0. Creatinine is 0.08. DIAGNOSTIC IMPRESSION AND PLAN: Patient with Aspergillus pneumonia and empyema, status post CT-guided drainage. Await further recommendation as far as repeat thoracotomy and that area versus medical therapy only. Questions were answered. MMODL / IJN: [id number] /
--- NOTE | 2020-08-25 13:57 | P.PN ---
Subjective Progress Note Date: 08/25/20 This is a 60-year-old male patient requesting my service with past medical history of rheumatoid arthritis on Arava that was diagnosed when he was 37 year old initially was started on Methotrexate that he could not tolerate then placed on Embrel but he developed side effects and finally was tried on Humira injection but he developed neurologic sided effects and was hospitaized at [facility] for quiet some time, rheumatoid lung disease, previous history of loculated empyema with chest tube placement in January 2020, hypertension, hypothyroidism, history of DVT, remote history of tobacco use and dependence, was recently hospitalized at [facility] after he was admitted for an acute kidney injury with significant metabolic acidosis associated with the elevated creatinine and elevated BUN and hypotension at that time he was seen and evaluated by pulmonary and critical care medicine, he had a central line placed and at that time, he was placed on Levophed drip he was p laced on IV anabiotic as well but the patient recovered very fast and he had an echocardiogram that showed normal LV function and segmental hypokinesia, he was supposed to follow-up with Dr. 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 and he had an episode when he was dizzy lightheaded and an episode of vomiting as well and he was sent to the emergency department for evaluation had a computed tomography of the chest as well as abdomen and pelvis that showed a thick walled pleural cavities posteriorly in the lower lungs with left-sided air-fluid level that has diminished in size from the prior computed tomography scan when he was in the hospital a few weeks back there is also associated compressive atelectasis and chronic consultation with multifocal areas of reticular nodular opacity in the upper lungs with a slight nodularity of the left upper lobe again this area of focal consultation has improved from the previous study that was done few weeks ago, patient was started on IV antibiotic with vancomycin and Zosyn as well as IV fluid, he was seen in consultation by pulmonary critical care in the emergency department as the patient blood pressure dropped and that he'll be transferred to the intensive care unit at this point in time I had long conve rsation with the patient and his at the bedside and the patient may need to have a chest tube placed for his possible right empyema, he did receive 3 L normal saline in the ER, and his blood pressure is marginal he may need to go on pressors if not recovered. 08/20:patient is sitting up in chair feeling about the same , complains of increased pain in the righ elbow, was seen earlier by pulmonary and the plan was to go for US-Guided left thoracenthesis due to to loculated left pleural effu unique and possible empyema, may need VATS, he denies any chest pain or shortness of breath, no abdominal pain nausea, vomiting or diarrhea, still have diarrhea negative for C.Diff, he seems to have accept to stay in the hospital this time as long as he needed to. 08/21: Patient sitting up in the recliner complaining of increased pain in his joints due to his rheumatoid arthritis with increased synovitis in both wrists both elbows and both shoulders he was started on hydrocortisone 100 mg IV push every 8 hours, to try to help with his blood pressure as well as his phonation, he is maintained on [place] 5/325 mg one tablet orally every 6 hours as needed for pain control, patient denies any chest pain is less short of breath, he continues to have increased coughing with yellow from production of green phlegm production, he had no fever or chills at this time he continues to be on Levothroid drip, patient has appeared to have increased swelling in both lower extremities as well as both ankles, he is maintained on IV antibiotic in the form of vancomycin as well as cefepime, infectious disease is following, patient is scheduled to go for ultrasound guidance thoracentesis of the left loculated pleural effusion tomorrow morning. 08/22: Patient remains in the intensive care unit. He has been afebrile, heart rate 100, blood pressure 95/62, pulse ox 97% on 2 L nasal cannula. Hemoglobin 8.8 and leukocytosis resolved. Creatinine 0.76, electrolytes normal. Sputum culture is positive for Aspergillus species. Blood culture showing no growth. Patient underwent diagnostic thoracentesis with interventional radiology today with removal of 45 mL of cloudy white fluid. Chest x-ray reveals no complications following left thoracentesis. Fluid has been sent for culture and cytology. Consult in place for cardiothoracic surgery to evaluate for VATS with decortication. /2: Patient remains in the intensive care unit. He did receive 1 dose of IV Lasix this morning ordered by nephrology. He is followed by cardiothoracic surgery was no plan for surgical intervention. ID has recommended cefepime and vancomycin for now. Expect antifungal agent ended as well. Patient denies any significant shortness of breath. He is comfortable sitting in a chair. Patient is having minimal cough and minimal sputum. Patient is achieving 1000 ml on incentive spirometry. Culture and cytology reports remain pending from thoracentesis. Repeat chest x-ray reveals patchy peripheral lung with lung zone and lower lung zone infiltrates persist unchanged. Patient has been afebrile, heart rate in the 90s and low 100s, pulse ox 91 on room air. 2/3: Repeat chest x-ray reveals left-sided basilar loculated pneumothorax, stable. Bilateral lung infiltrates. Correlate for pneumonia and atelectasis. WBC 9, hemoglobin 9.5. Potassium 3.4 and will be replaced. Patient is continued on cefepime and vancomycin per Dr. Blanton's recommendations. Patient in reaching 1000 on incentive spirometry. Patient is scheduled to see Dr. Dubois tomorrow. Cefepime and vancomycin had been discontinued by Dr. Blanton and started on Voriconazole. 08/25: A-Team was called this morning regarding elevated heart rate, EKG was atrial flutter with RVR and 150 bpm and patient was transferred to ICU as an overflow for the cardiac stepdown unit, started on Cardizem drip and consult with cardiology. Heart rate was improved with Cardizem and patient also received amiodarone bolus 300 mg. Patient denies any worsening shortness of breath, cough or congestion. No chest pain or palpitations. Patient is resting comfortably. 09, hemoglobin 8.8, potassium 3.4 replaced. Creatinine 0.89. Objective - Vital Signs Vital signs: Vital Signs Temp 97.8 F 08/25/20 12:00 Pulse 144 H 08/25/20 12:30 Resp 21 02/04/21 13:00 BP 84/59 08/25/20 13:00 Pulse Ox 93 L 08/25/20 12:00 Intake & Output 08/24/20 08/25/20 08/25/20 18:59 06:59 18:59 Intake Total 100 300 40 Output Total 1320 1400 Balance -1220 300 -1360 Intake: IV 100 40 0.9 40 Cefepime 2 gm In Sodium 100 Chloride 0.9% 100 ml @ 25 mls/hr IVPB Q12HR [facility] Rx #:[id number] Oral 300 Output: Urine 1320 1400 Other: Voiding Method Toilet Toilet Toilet Urinal # Voids 9 - Exam Review of Systems Constitutional: Reports anorexia, Reports chronic pain, Reports fatigue, Reports weakness, Reports weight loss Eyes: denies blurred vision, denies bulging eye, denies decreased vision, denies diplopia Ears, nose, mouth and throat: Denies dysphagia, Denies neck lump, Denies sore throat Respiratory: Reports dyspnea, Reports respiratory infections, Denies congestion, Denies cough with sputum, Denies home oxygen, Denies sleep apnea, Denies snoring , Denies wheezing Gastrointestinal: Reports bloating, Reports change in bowel habits, Reports diarrhea, Reports early satiety, Reports indigestion, Reports loss of appetite, Reports nausea, Reports vomiting, Denies abdominal pain, Denies belching, Denies heartburn, Denies hematemesis, Denies hematochezia, Denies melena Genitourinary: Denies dysuria, Denies nocturia Musculoskeletal: Denies myalgias Musculoskeletal: absent: ankle pain, ankle stiffness, ankle swelling, elbow pain, elbow stiffness, elbow swelling, foot pain, foot stiffness, foot swelling, hand pain, hand stiffness, hand swelling, hip pain, hip stiffness, hip swelling, knee pain, knee stiffness, knee swelling, shoulder pain, shoulder stiffness, shoulder swelling, wrist pain, wrist stiffness, wrist swelling Integumentary: Denies pruritus, Denies rash Neurological: Denies numbness, Denies weakness Psychiatric: Denies anxiety, Denies depression Endocrine: Denies fatigue, Denies weight change Physical examination: General: patient is 60 year old lying down in bed in moderate distress. HEENT: head ia atraumatic normocephalic, Pupils were equal round reactive to light and accommodations , extra ocular muscle movement were intact, mucous membranes of the mouth are somewhat dry. Neck: supple no JVP. Chest: decreased breath sounds at he bases with few ronchi no expiratory wheezes no chest wall tendernes or intercostal retractions. Heart: first heart sound is depressed, second heart sound is normal tachycardic there is BIRD 2/6 located at the left sternal border. Abdomen: soft, mild tenderness to the left lower quadrant positive bowel sounds, no guarding or rebound tenderness, no hepatosplenomegaly. Extremities: there is no edema or calf tenderness DP+ 2 Bilaterally, there is what appears to be a charcot joint in the right foot form arch collapse. Neurologic examination: patient is awake , alert and oriented X 3 CN II-XII are grossly intact, muscle power 4/5 in bilateral upper and lower extremities, deep tendon reflexes were normal. - Labs CBC & Chem 7: 08/25/20 06:04 08/25/20 06:04 Labs: Abnormal Lab Results - Last 24 Hours (Table) 08/25/20 08/25/20 08/25/20 Range/Units 06:04 06:04 08:16 WBC 10.09 H (4.50-10.00) X 10*3/uL RBC 3.37 L (4.40-5.60) X 10*6/uL Hgb 8.8 L (13.0-17.0) g/dL Hct 29.7 L (39.6-50.0) % MCH 26.1 L (27.0-32.0) pg MCHC 29.6 L (32.0-37.0) g/dL RDW 17.9 H (11.5-14.5) % Absolute Nucleated RBC 0.03 H (0.00-0.00) X 10*3/uL Metamyelocytes % 1 H (0-0) % Eosinophils # (Manual) 0 L (0.04-0.35) X 10*3/uL NRBC/100 WBC Diff 0.3 H (0.0-0.0) /100 WBCS ESR >140 H (0-20) mm/Hr APTT (22.0-30.0) sec Sodium 146 H (135-145) mmol/L Potassium 3.0 L (3.5-5.5) mmol/L Chloride 111 H (96-109) mmol/L BUN/Creatinine Ratio 30.00 H (12.00-20.00) Ratio POC Glucose (mg/dL) 123 H (75-99) mg/dL Calcium 8.5 L (8.7-10.3) mg/dL Total Bilirubin 0.2 L (0.3-1.2) mg/dL Alkaline Phosphatase 138 H (41-126) U/L C-Reactive Protein 3.0 H (0.0-0.8) mg/dL Total Protein 5.8 L (6.2-8.2) g/dL Albumin 3.00 L (3.80-4.90) g/dL Albumin/Globulin Ratio 1.07 L (1.60-3.17) g/dL 08/25/20 Range/Units 09:08 WBC (4.50-10.00) X 10*3/uL RBC (4.40-5.60) X 10*6/uL Hgb (13.0-17.0) g/dL Hct (39.6-50.0) % MCH (27.0-32.0) pg MCHC (32.0-37.0) g/dL RDW (11.5-14.5) % Absolute Nucleated RBC (0.00-0.00) X 10*3/uL Metamyelocytes % (0-0) % Eosinophils # (Manual) (0.04-0.35) X 10*3/uL NRBC/100 WBC Diff (0.0-0.0) /100 WBCS ESR (0-20) mm/Hr APTT 21.3 L (22.0-30.0) sec Sodium (135-145) mmol/L Potassium (3.5-5.5) mmol/L Chloride (96-109) mmol/L BUN/Creatinine Ratio (12.00-20.00) Ratio POC Glucose (mg/dL) (75-99) mg/dL Calcium (8.7-10.3) mg/dL Total Bilirubin (0.3-1.2) mg/dL Alkaline Phosphatase (41-126) U/L C-Reactive Protein (0.0-0.8) mg/dL Total Protein (6.2-8.2) g/dL Albumin (3.80-4.90) g/dL Albumin/Globulin Ratio (1.60-3.17) g/dL Microbiology - Last 24 Hours (Table) 08/19/20 09:26 Blood Culture - Final Blood No Growth after 144 hours 08/22/20 11:30 Gram Stain - Final Pleural Fluid Body Fluid Culture - Final Aspergillus fumigatus 08/19/20 13:00 Blood Culture - Preliminary Blood No Growth after 120 hours Assessment and Plan Assessment: Assessment and plan: 1. Acute hypoxemic respiratory failure secondary to loculated left-sided ple ural effusion and fungal empyema with what appears to be recurrent pneumonia. Continue Voriconazole 200 mg every 12 hours IV piggyback per Dr. Blanton, interventional radiology performed ultrasound-guided thoracentesis of the left loculated pleural fluid for Gram stain and culture and cytology as well as LDH protein as well as pH for possible empyema. Culture positive for Aspergillus. Cardiothoracic surgery following with no plans for surgical intervention at this time and we will reevaluate tomorrow. 2. Lactic acidosis. Resolved and cefepime, repeat lactic acid is back to normal. 3. Sepsis with septic shock. Patient has been weaned off Levothroid drip. 4. Acute kidney injury due to poor oral intake of fluid as well as hypotension with acute tubular necrosis. Continue IV fluid, continue to monitor the patient CMP continue to monitor urine output. Nephrology is following. 5. Leukocytosis secondary to severe sepsis. Continue IV fluid, continue IV antibiotic, repeat CBC tomorrow morning. 6. Atrial flutter with RVR. Patient was started on Cardizem drip, amiodarone 300 mg IV bolus, cardiology consult appreciated. 7. Rheumatoid arthritis and rheumatoid lung. Arava and Xeljanz had been on hold since April, patient was started on hydrocortisone 100 mg IV push every 8 hours. 8. History of empyema with Streptococcus requiring chest tube. His is a similar scenario may need a cardiothoracic surgery consultation. 9. Hypertension and hypertensive cardiovascular disease. currently hypotensive . Continue the IV fluid currently as well as IV pressors if needed 10. Hypothyroidism . we will continue with Synthroid 150 mcg orally daily. 11. DVT prophylaxis. we will start Lovenox 40 mg SC daily and bilateral knee high Cecilio Hose 12. GI prophylaxis. we will continue with Protonix 40 mg IVP daily. 13. Prognosis continues to be guarded.
--- NOTE | 2020-08-25 15:58 | P.PN ---
Subjective Progress Note Date: 08/25/20 Principal diagnosis: Bilateral pneumonia, bilateral hydropneumothorax, possible empyema, sputum culture preliminarily positive for Aspergillus species, acute hypoxic respiratory failure with sepsis on admission. Past medical history significant for multiple admissions for pneumonia with empyema on the left and previous bilateral chest tube placement in December 2019 with cultures positive for strep pneumonia, rheumatoid arthritis with rheumatoid lung, hypertension, hypothyroidism, DVT, previous tobacco dependence, family history of lung cancer, and recent hospitalization for hypotension, dehydration, acute kidney injury requiring dialysis. POD #3 left-sided thoracentesis by interventional radiology. The patient was seen in follow-up today at his bedside in the intensive care unit. Currently he is sitting up to the bedside chair, is awake, alert and oriented 3. He was transferred to the intensive care unit this morning from the medical surgical unit due to some atrial fibrillation and atrial flutter with RVR. His heart rate is currently 147 BPM on his bedside monitor. Cardizem drip is infusing at 5 mg per hour. Oxygen saturations are 93% on 2 L nasal cannula. Pleural fluid culture and sputum culture results positive for Aspergillus species. Lab results this morning show a WBC count 10.0, hemoglobin 8.8, hematocrit 29.7, BUN 24, creatinine 0.8 and C-reactive protein 3.0. Currently he denies any complaints of pain or shortness of breath with just sitt ing there but reports when he is ambulating he does have some episodes of shortness of breath. A chest x-ray was completed this morning and the report shows loculated posterior basilar pneumothoraces, and diffuse increased lung markings. Objective - Vital Signs Vital signs: Vital Signs Temp 97.6 F 08/25/20 08:00 Pulse 174 H 08/25/20 08:00 Resp 16 08/25/20 08:00 BP 105/62 08/25/20 08:00 Pulse Ox 93 L 08/25/20 08:00 Intake & Output 08/24/20 08/25/20 08/25/20 18:59 06:59 18:59 Intake Total 100 300 40 Output Total 1320 1400 Balance -1220 300 -1360 Intake: IV 100 40 0.9 40 Cefepime 2 gm In Sodium 100 Chloride 0.9% 100 ml @ 25 mls/hr IVPB Q12HR [facility] Rx #:[id number] Oral 300 Output: Urine 1320 1400 Other: Voiding Method Toilet Toilet Toilet Urinal # Voids 9 - Constitutional General appearance: Present: average body habitus, cooperative, no acute distress - EENT Eyes: Present: normal appearance. Absent: scleral icterus ENT: Present: hearing grossly normal - Neck Details: Neck is supple, no JVD. - Respiratory Details: Lung sounds essentially clear throughout, diminished to his bilateral bases with few scattered crackles. Respirations are symmetrical and nonlabored. Oxygen saturation is 93% on 2 L nasal cannula. - Cardiovascular Details: Irregular rhythm with a tachycardic rate. S1 and S2 present, negative for S3, gallop or murmur. Bedside telemetry showing atrial fibrillation/atrial flutter with rapid ventricular response heart rate 147 BPM. Cardizem drip at 5 mg per hour. Knee-high BRISA hose in place to his bilateral lower extremities. +2 to +3 edema to his bilateral lower extremities. - Gastrointestinal Gastrointestinal Comment(s): Abdomen is soft, nontender and nondistended. Active bowel sounds present in all 4 abdominal quadrants. No guarding or rigidity. No organomegaly appreciated. - Genitourinary Genitourinary Comment(s): Continues to void. - Integumentary Integumentary Comment(s): Skin is warm and dry. No clubbing or cyanosis is present. - Neurologic Neurologic: Present: CNII-XII intact. Absent: focal deficits - Musculoskeletal Musculoskeletal: Present: generalized weakness, strength equal bilaterally - Psychiatric Psychiatric: Present: A&O x's 3, appropriate affect, intact judgment & insight - Allied health notes Allied health notes reviewed: nursing - Labs CBC & Chem 7: 08/25/20 06:04 08/25/20 14:46 Labs: Abnormal Lab Results - Last 24 Hours (Table) 08/25/20 08/25/20 08/25/20 Range/Units 06:04 06:04 08:16 WBC 10.09 H (4.50-10.00) X 10*3/uL RBC 3.37 L (4.40-5.60) X 10*6/uL Hgb 8.8 L (13.0-17.0) g/dL Hct 29.7 L (39.6-50.0) % MCH 26.1 L (27.0-32.0) pg MCHC 29.6 L (32.0-37.0) g/dL RDW 17.9 H (11.5-14.5) % Absolute Nucleated RBC 0.03 H (0.00-0.00) X 10*3/uL Metamyelocytes % 1 H (0-0) % Eosinophils # (Manual) 0 L (0.04-0.35) X 10*3/uL NRBC/100 WBC Diff 0.3 H (0.0-0.0) /100 WBCS ESR >140 H (0-20) mm/Hr APTT (22.0-30.0) sec Sodium 146 H (135-145) mmol/L Potassium 3.0 L (3.5-5.5) mmol/L Chloride 111 H (96-109) mmol/L BUN/Creatinine Ratio 30.00 H (12.00-20.00) Ratio POC Glucose (mg/dL) 123 H (75-99) mg/dL Calcium 8.5 L (8.7-10.3) mg/dL Total Bilirubin 0.2 L (0.3-1.2) mg/dL Alkaline Phosphatase 138 H (41-126) U/L C-Reactive Protein 3.0 H (0.0-0.8) mg/dL Total Protein 5.8 L (6.2-8.2) g/dL Albumin 3.00 L (3.80-4.90) g/dL Albumin/Globulin Ratio 1.07 L (1.60-3.17) g/dL 08/25/20 Range/Units 09:08 WBC (4.50-10.00) X 10*3/uL RBC (4.40-5.60) X 10*6/uL Hgb (13.0-17.0) g/dL Hct (39.6-50.0) % MCH (27.0-32.0) pg MCHC (32.0-37.0) g/dL RDW (11.5-14.5) % Absolute Nucleated RBC (0.00-0.00) X 10*3/uL Metamyelocytes % (0-0) % Eosinophils # (Manual) (0.04-0.35) X 10*3/uL NRBC/100 WBC Diff (0.0-0.0) /100 WBCS ESR (0-20) mm/Hr APTT 21.3 L (22.0-30.0) sec Sodium (135-145) mmol/L Potassium (3.5-5.5) mmol/L Chloride (96-109) mmol/L BUN/Creatinine Ratio (12.00-20.00) Ratio POC Glucose (mg/dL) (75-99) mg/dL Calcium (8.7-10.3) mg/dL Total Bilirubin (0.3-1.2) mg/dL Alkaline Phosphatase (41-126) U/L C-Reactive Protein (0.0-0.8) mg/dL Total Protein (6.2-8.2) g/dL Albumin (3.80-4.90) g/dL Albumin/Globulin Ratio (1.60-3.17) g/dL Microbiology - Last 24 Hours (Table) 08/22/20 11:30 Gram Stain - Final Pleural Fluid Body Fluid Culture - Final Aspergillus fumigatus 08/19/20 13:00 Blood Culture - Preliminary Blood No Growth after 120 hours 08/19/20 09:26 Blood Culture - Preliminary Blood No Growth after 120 hours - Imaging and Cardiology Chest x-ray: report reviewed, image reviewed Assessment and Plan Assessment: 1. Bilateral pneumonia, bilateral hydropneumothorax, possible empyema, sputum culture preliminarily positive for Aspergillus species, status post left-sided thoracentesis 2. Acute hypoxic respiratory failure with sepsis on admission 3. Multiple admissions for pneumonia with empyema on the left and previous bilateral chest tube placement in December 2019 with cultures positive for strep pneumonia 4. Rheumatoid arthritis with rheumatoid lung 5. Hypertension, currently hypotensive, requiring pressors on admission 6. Hypothyroidism 7. History of DVT 8. Previous tobacco dependence 9. Family history of lung cancer 10. Recent hospitalization for hypotension, dehydration, acute kidney injury requiring dialysis 11. New-onset atrial fibrillation/atrial flutter with rapid ventricular response, on Cardizem drip Plan: 1. Will follow culture and cytology sent from thoracentesis, pleural fluid Gram stain shows Aspergillus Fumigatus. 2. Continue to follow daily chest x-rays. 3. Encourage incentive spirometry 10 times every hour while awake. Bronchodilators per pulmonary for/critical care medicine. 4. Currently on Vfend managed by infectious disease. 5. Increase activity as tolerated. 6. Medical management and other comorbidities per primary care service. 7. More recommendations to follow based on patient's clinical course. Time with Patient: Greater than 30
[2020-08-25] MEDS: HEPARIN SODIUM,PORCINE 5,000 UNIT/ML 1 ML VIAL IV PRN ×2 (16:05→23:47)
[2020-08-25] MEDS: POTASSIUM CHLORIDE 20 MEQ in WATER FOR INJECTION 1 100ML.BAG IVPB SCH ×3 (16:05→23:46)
[2020-08-25] MEDS ORDERED: AMIODARONE 360 MG in DEXTROSE 5% IN WATER 200 ML IV ONE ×2 (16:30)
[2020-08-25] MEDS: ASCORBIC ACID 500 MG TAB PO SCH (20:18)
[2020-08-25] MEDS: ASPIRIN 81 MG PO SCH (20:18)
[2020-08-25] MEDS: CHOLECALCIFEROL 25 MCG (1000 IU) TABLET PO SCH (20:19)
[2020-08-25] MEDS: VORICONAZOLE 400 MG in SODIUM CHLORIDE 0.9% 250 ML IVPB SCH (20:20)
[2020-08-25] MEDS: HYDROcodone/APAP 5-325MG 1 EACH TAB PO PRN (22:19)
[2020-08-25] MEDS: AMIODARONE 450 MG in DEXTROSE 5% IN WATER 250 ML IV SCH ×2 (22:20)
[2020-08-26] MEDS ORDERED: MELATONIN 3 MG TABLET PO PRN (00:12)
[2020-08-26] MEDS: HEPARIN SOD,PORK IN 0.45% NACL 25,000 UNIT in 0.45% NACL 1 250ML.BAG IV SCH ×3 (05:07→20:16)
[2020-08-26 06:11] LABS: African American GFR (CKD) >90 (>60 ml/min/1.73 sqM); Anion Gap 6 mmol/L; Blood Urea Nitrogen 29 mg/dL (9-20); Carbon Dioxide 27 mmol/L (22-30); Chloride 110 mmol/L (98-107); Glucose 135 mg/dL (74-99); Non-African American GFR(CKD) >90 (>60 ml/min/1.73 sqM); Potassium 3.9 mmol/L (3.5-5.1); Sodium 143 mmol/L (137-145)
[2020-08-26 06:19] LABS: Anisocytosis Slight; Basophils # (A) 0.1 k/uL (0-0.2); Basophils % (A) 1 %; Eosinophils % (A) 0 %; HCT 33.5 % (39.0-53.0); HGB 9.8 gm/dL (13.0-17.5); Hypochromasia Marked; Lymphocytes # (A) 1.5 k/uL (1.0-4.8); Lymphocytes % (A) 9 %; MCH 25.5 pg (25.0-35.0); MCHC 29.2 g/dL (31.0-37.0); MCV 87.2 fL (80.0-100.0); Mean Platelet Volume 8.5; Monocytes # (A) 0.9 k/uL (0-1.0); Monocytes % (A) 5 %; Neutrophils # (A) 13.8 k/uL (1.3-7.7); Neutrophils % (A) 83 %; Platelet Count 374 k/uL (150-450); RBC 3.84 m/uL (4.30-5.90); RDW 17.7 % (11.5-15.5); WBC 16.6 k/uL (3.8-10.6)
[2020-08-26] MEDS: PANTOPRAZOLE 40 MG TABLET PO SCH (06:57)
[2020-08-26] MEDS: LEVOTHYROXINE 75 MCG TAB PO SCH (06:57)
[2020-08-26] MEDS: AMIODARONE 450 MG in DEXTROSE 5% IN WATER 250 ML IV SCH ×4 (06:58→20:31)
[2020-08-26] MEDS: IPRATROPIUM-ALBUTEROL 3 ML NEB INHALATION SCH ×3 (07:52→19:33)
[2020-08-26] MEDS: TRIAMCINOLONE 0.1% CREAM 80 GM TUBE TOPICAL SCH ×2 (07:57→20:02)
[2020-08-26] MEDS ORDERED: POTASSIUM CHLORIDE ER 20 MEQ TAB.ER PO SCH (08:00)
[2020-08-26] MEDS: FUROSEMIDE 10 MG/ML 4 ML VIAL IV SCH (09:34)
[2020-08-26] MEDS: HYDROCORTISONE SUCCINATE 100 MG/2 ML VIAL IV SCH ×3 (09:34→22:56)
--- NOTE | 2020-08-26 09:49 | P.PN ---
Subjective Progress Note Date: 08/26/20 Principal diagnosis: Bilateral pneumonia, bilateral hydropneumothorax, possible empyema, sputum culture preliminarily positive for Aspergillus species, acute hypoxic respiratory failure with sepsis on admission. Past medical history significant for multiple admissions for pneumonia with empyema on the left and previous bilateral chest tube placement in December 2019 with cultures positive for strep pneumonia, rheumatoid arthritis with rheumatoid lung, hypertension, hypothyroidism, DVT, previous tobacco dependence, family history of lung cancer, and recent hospitalization for hypotension, dehydration, acute kidney injury requiring dialysis. POD #4 left-sided thoracentesis by interventional radiology. The patient was seen on follow-up today 08/26/2020 at his bedside in the intensive care unit. Currently sitting up to the bedside chair, is awake, alert and oriented 3. Denies any complaints of pain or shortness of breath at this time. Bedside telemetry continues to show atrial fibrillation forward atrial flutter with rapid ventricular response with his heart rate in the 140s. Amiodarone drip remains infusing at 0.5 mg/m for the patient's atrial fibrillation. Oxygen saturation are 93% on room air. Dr. Dubois met with the patient yesterday at his bedside, discussed treatment options with the patient including Pleurx catheter placement. The patient was in agreement for the Pleurx catheter placement and will be scheduled for 08/29/2020 for a left sided Pleurx catheter. Objective - Vital Signs Vital signs: Vital Signs Temp 97.7 F 08/26/20 04:00 Pulse 141 H 08/26/20 04:00 Resp 15 08/26/20 04:00 BP 92/68 08/26/20 04:00 Pulse Ox 93 L 08/26/20 04:00 Intake & Output 08/25/20 08/26/20 08/26/20 18:59 06:59 18:59 Intake Total 763.532 3616.005 Output Total 2050 400 Balance -1907.250 755.005 Intake: IV 40 800 0.9 40 450 Potassium Chloride 20 meq 100 In Water For Injection 1 100ml.bag @ 50 mls/hr IVPB Q2H [facility] Rx#: [id number] Voriconazole 400 mg In 250 Sodium Chloride 0.9% 250 ml @ 125 mls/hr IVPB Q12HR [facility] Rx#:[id number] Intake, IV Titration 102.750 355.005 Amount Amiodarone 450 mg In 143.892 Dextrose 5% in Water 250 ml @ 0.5 MG/MIN 16.667 mls/hr IV .Q15H [facility] Rx#: [id number] Diltiazem 125 mg In 42.917 Sodium Chloride 0.9% 100 ml @ 5 MG/HR 5 mls/hr IV .Q24H [facility] Rx#:[id number] Heparin Sod,Pork in 0.45% 59.833 211.113 NaCl 25,000 unit In 0.45 % NaCl 1 250ml.bag @ 9.93 UNITS/KG/HR 10 mls/hr IV .Q24H [facility] Rx#:[id number] Output: Urine 2050 400 Other: Voiding Method Toilet Urinal - Constitutional General appearance: Present: cooperative, no acute distress, obese - EENT Eyes: Present: normal appearance. Absent: scleral icterus ENT: Present: hearing grossly normal - Neck Details: Neck is supple, no JVD. Neck: Present: normal ROM. Absent: lymphadenopathy - Respiratory Details: Lungs sounds essentially clear, diminished bilateral bases. Respirations are spent on nonlabored. Oxygen saturation 93% on room air. - Cardiovascular Details: Irregular rhythm and tachycardic rate. S1 and S2 present, negative for S3, gallop or murmur. Bedside telemetry showing atrial fibrillation/atrial flutter heart rate in the 140s. +2 edema to his bilateral lower extremities. Knee-high BRISA hose in place to his bilateral lower extremities. - Gastrointestinal Gastrointestinal Comment(s): Abdomen is soft, nontender and nondistended. Active bowel sounds present in all 4 abdominal quadrants. No guarding or rigidity. No organomegaly appreciated. Tolerating oral intake. - Genitourinary Genitourinary Comment(s): Continues to void. - Integumentary Integumentary Comment(s): Skin is warm and dry. No clubbing or cyanosis is present. - Neurologic Neurologic: Present: CNII-XII intact. Absent: focal deficits - Musculoskeletal Musculoskeletal: Present: gait normal, generalized weakness, strength equal bilaterally - Psychiatric Psychiatric: Present: A&O x's 3, appropriate affect, intact judgment & insight - Allied health notes Allied health notes reviewed: nursing - Labs CBC & Chem 7: 08/26/20 05:27 08/26/20 05:27 Labs: Abnormal Lab Results - Last 24 Hours (Table) 08/25/20 08/25/20 08/25/20 Range/Units 06:04 06:04 09:08 WBC (3.8-10.6) k/uL RBC (4.30-5.90) m/uL Hgb (13.0-17.5) gm/dL Hct (39.0-53.0) % MCHC (31.0-37.0) g/dL RDW (11.5-15.5) % Metamyelocytes % 1 H (0-0) % Neutrophils # (1.3-7.7) k/uL Eosinophils # (Manual) 0 L (0.04-0.35) X 10*3/uL ESR >140 H (0-20) mm/Hr APTT 21.3 L (22.0-30.0) sec Sodium 146 H (135-145) mmol/L Potassium 3.0 L (3.5-5.5) mmol/L Chloride 111 H (96-109) mmol/L BUN (9-20) mg/dL BUN/Creatinine Ratio 30.00 H (12.00-20.00) Ratio Glucose (74-99) mg/dL Calcium 8.5 L (8.7-10.3) mg/dL Total Bilirubin 0.2 L (0.3-1.2) mg/dL Alkaline Phosphatase 138 H (41-126) U/L C-Reactive Protein 3.0 H (0.0-0.8) mg/dL Total Protein 5.8 L (6.2-8.2) g/dL Albumin 3.00 L (3.80-4.90) g/dL Albumin/Globulin Ratio 1.07 L (1.60-3.17) g/dL 08/25/20 08/26/20 08/26/20 Range/Units 14:46 05:27 05:27 WBC 16.6 H (3.8-10.6) k/uL RBC 3.84 L (4.30-5.90) m/uL Hgb 9.8 L (13.0-17.5) gm/dL Hct 33.5 L (39.0-53.0) % MCHC 29.2 L (31.0-37.0) g/dL RDW 17.7 H (11.5-15.5) % Metamyelocytes % (0-0) % Neutrophils # 13.8 H (1.3-7.7) k/uL Eosinophils # (Manual) (0.04-0.35) X 10*3/uL ESR (0-20) mm/Hr APTT 36.6 H (22.0-30.0) sec Sodium (135-145) mmol/L Potassium 2.6 L* (3.5-5.5) mmol/L Chloride (96-109) mmol/L BUN (9-20) mg/dL BUN/Creatinine Ratio (12.00-20.00) Ratio Glucose (74-99) mg/dL Calcium (8.7-10.3) mg/dL Total Bilirubin (0.3-1.2) mg/dL Alkaline Phosphatase (41-126) U/L C-Reactive Protein (0.0-0.8) mg/dL Total Protein (6.2-8.2) g/dL Albumin (3.80-4.90) g/dL Albumin/Globulin Ratio (1.60-3.17) g/dL 08/26/20 Range/Units 05:27 WBC (3.8-10.6) k/uL RBC (4.30-5.90) m/uL Hgb (13.0-17.5) gm/dL Hct (39.0-53.0) % MCHC (31.0-37.0) g/dL RDW (11.5-15.5) % Metamyelocytes % (0-0) % Neutrophils # (1.3-7.7) k/uL Eosinophils # (Manual) (0.04-0.35) X 10*3/uL ESR (0-20) mm/Hr APTT (22.0-30.0) sec Sodium (135-145) mmol/L Potassium (3.5-5.5) mmol/L Chloride 110 H (96-109) mmol/L BUN 29 H (9-20) mg/dL BUN/Creatinine Ratio (12.00-20.00) Ratio Glucose 135 H (74-99) mg/dL Calcium (8.7-10.3) mg/dL Total Bilirubin (0.3-1.2) mg/dL Alkaline Phosphatase (41-126) U/L C-Reactive Protein (0.0-0.8) mg/dL Total Protein (6.2-8.2) g/dL Albumin (3.80-4.90) g/dL Albumin/Globulin Ratio (1.60-3.17) g/dL Microbiology - Last 24 Hours (Table) 08/19/20 13:00 Blood Culture - Final Blood No Growth after 144 hours 08/19/20 09:26 Blood Culture - Final Blood No Growth after 144 hours 08/22/20 11:30 Gram Stain - Final Pleural Fluid Body Fluid Culture - Final Aspergillus fumigatus Assessment and Plan Assessment: 1. Bilateral pneumonia, bilateral hydropneumothorax, possible empyema, sputum culture preliminarily positive for Aspergillus species, status post left-sided thoracentesis 2. Acute hypoxic respiratory failure with sepsis on admission 3. Multiple admissions for pneumonia with empyema on the left and previous bilateral chest tube placement in December 2019 with cultures positive for strep pneumonia 4. Rheumatoid arthritis with rheumatoid lung 5. Hypertension, currently hypotensive, requiring pressors on admission 6. Hypothyroidism 7. History of DVT 8. Previous tobacco dependence 9. Family history of lung cancer 10. Recent hospitalization for hypotension, dehydration, acute kidney injury requiring dialysis 11. New-onset atrial fibrillation/atrial flutter with rapid ventricular response, on amiodarone drip Plan: 1. Pleural fluid Gram stain shows Aspergillus Fumigatus. 2. Continue to follow chest x-rays. 3. Encourage incentive spirometry 10 times every hour while awake. Bronchodilators per pulmonary for/critical care medicine. 4. Currently on Vfend managed by infectious disease. 5. Increase activity as tolerated. 6. Medical management and other comorbidities per primary care service. 7. The patient is scheduled for a left Pleurx catheter placement on 08/29/2020 to be performed by Dr. Oswaldo Dubois. 8. More recommendations to follow based on patient's clinical course. Time with Patient: Greater than 30
[2020-08-26] MEDS: VORICONAZOLE 400 MG in SODIUM CHLORIDE 0.9% 250 ML IVPB SCH ×2 (09:50→20:31)
--- NOTE | 2020-08-26 10:24 | P.PN ---
Subjective Patient is seen in follow for acute kidney injury. GFR back to baseline. Tolerating oral intake. Edema improving. Maintained on amiodarone drip for A. fib. No chest pain or shortness of breath. Vital signs are stable. General: The patient appeared well nourished and normally developed. HEENT: Head exam is unremarkable. Neck is without jugular venous distension. LUNGS: Breath sounds decreased. HEART: Irregular rate and rhythm. ABDOMEN: Soft, nontender. EXTREMITITES: 1+ edema. Objective - Vital Signs Vital signs: Vital Signs Temp 97.7 F 08/26/20 04:00 Pulse 141 H 08/26/20 04:00 Resp 15 08/26/20 04:00 BP 92/68 08/26/20 04:00 Pulse Ox 93 L 08/26/20 04:00 Intake & Output 08/25/20 08/26/20 08/26/20 18:59 06:59 18:59 Intake Total 325.593 7784.005 Output Total 2050 400 Balance -1907.250 755.005 Intake: IV 40 800 0.9 40 450 Potassium Chloride 20 meq 100 In Water For Injection 1 100ml.bag @ 50 mls/hr IVPB Q2H [facility] Rx#: [id number] Voriconazole 400 mg In 250 Sodium Chloride 0.9% 250 ml @ 125 mls/hr IVPB Q12HR [facility] Rx#:[id number] Intake, IV Titration 102.750 355.005 Amount Amiodarone 450 mg In 143.892 Dextrose 5% in Water 250 ml @ 0.5 MG/MIN 16.667 mls/hr IV .Q15H [facility] Rx#: [id number] Diltiazem 125 mg In 42.917 Sodium Chloride 0.9% 100 ml @ 5 MG/HR 5 mls/hr IV .Q24H [facility] Rx#:[id number] Heparin Sod,Pork in 0.45% 59.833 211.113 NaCl 25,000 unit In 0.45 % NaCl 1 250ml.bag @ 9.93 UNITS/KG/HR 10 mls/hr IV .Q24H [facility] Rx#:[id number] Output: Urine 2050 400 Other: Voiding Method Toilet Urinal - Labs CBC & Chem 7: 08/26/20 05:27 08/26/20 05:27 Labs: Abnormal Lab Results - Last 24 Hours (Table) 08/25/20 08/25/20 08/26/20 Range/Units 06:04 14:46 05:27 WBC 16.6 H (3.8-10.6) k/uL RBC 3.84 L (4.30-5.90) m/uL Hgb 9.8 L (13.0-17.5) gm/dL Hct 33.5 L (39.0-53.0) % MCHC 29.2 L (31.0-37.0) g/dL RDW 17.7 H (11.5-15.5) % Neutrophils # 13.8 H (1.3-7.7) k/uL ESR >140 H (0-20) mm/Hr APTT (22.0-30.0) sec Potassium 2.6 L* (3.5-5.1) mmol/L Chloride (98-107) mmol/L BUN (9-20) mg/dL Glucose (74-99) mg/dL 08/26/20 08/26/20 Range/Units 05:27 05:27 WBC (3.8-10.6) k/uL RBC (4.30-5.90) m/uL Hgb (13.0-17.5) gm/dL Hct (39.0-53.0) % MCHC (31.0-37.0) g/dL RDW (11.5-15.5) % Neutrophils # (1.3-7.7) k/uL ESR (0-20) mm/Hr APTT 36.6 H (22.0-30.0) sec Potassium (3.5-5.1) mmol/L Chloride 110 H (98-107) mmol/L BUN 29 H (9-20) mg/dL Glucose 135 H (74-99) mg/dL Microbiology - Last 24 Hours (Table) 08/19/20 13:00 Blood Culture - Final Blood No Growth after 144 hours 08/19/20 09:26 Blood Culture - Final Blood No Growth after 144 hours 08/22/20 11:30 Gram Stain - Final Pleural Fluid Body Fluid Culture - Final Aspergillus fumigatus Assessment and Plan Plan: Assessment: 1. Acute kidney injury mostly prerenal secondary to intravascular volume depletion and hypotension, improved with IV hydration. GFR back to baseline. 2. Pneumonia maintained on antibiotics. ? Empyema - status post thoracentesis on August 22 with 45 mL of fluid removed. 3. Septic shock secondary to pneumonia. Off vasopressors. On antibiotics. 4. History of rheumatoid arthritis. 5. Hypotension mostly secondary to sepsis. Cortisol level was also low. He is currently on Solu-Cortef. ACTH stimulation test will not be accurate at this time as he is on Solu-Cortef. 6. Diarrhea. C. diff negative. Improved. 7. Lower extremity edema. Improving with diuresis. 8. A-fib maintained on amiodarone drip. Plan: Encouraged oral intake. Continue diuresis - lasix 40 mg IV daily.
--- NOTE | 2020-08-26 10:48 | P.PN ---
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 Other medical history includes hypertension, hypothyroidism and previous history of DVT. Patient had a recent hospitalization from August 08 through 08/11/2020 hypotension, dehydration related to nausea vomiting diarrhea, acute kidney injury. Patient received antibiotics in the form of Zosyn and Levaquin for possibility of pneumonia, he is chest x-ray showed cranial perihilar pulmonary infiltrates with increased interstitial changes at the lung bases and was thought to be related to a combi nation of rheumatoid lung and chronic scarring. His last CT of the chest was on 07/19/2020 showing chronic changes to lower lungs, persistent irregular thick- walled pleural spaces in the posterior lung bases containing fluid and air with adjacent anterior lung with chronic consolidation or atelectasis. On 08/19/2020 patient came into the emergency department from Dr. GENE Carias's office where he w as being seen for a regular follow-up appointments. He was noted to have low pulse ox 70s and was sent in to the emergency department for evaluation. He has been having cough with yellow and sometimes blood-tinged sputum, appears amounts, denies any fever, COVID 19 was found to be negative, chest x-ray showed perihilar and basilar infiltrates without significant change from previous chest x-ray on 08/09/2020. Lab data showed leukocytosis with white blood cell count of 19.1, hemoglobin of 12.1, INR 1.5, sodium is 135, potassium is 3.9, chloride is 102, CO2 is 19, creatinine is 1.32, which has actually improved since his discharge from the hospital on 08/11/2020 when he was at 1.84. Lactic acid was elevated at 3.7, patient was given a total of 2 L in fluid boluses, troponin was negative at less than 0.012. Urinalysis showed no evidence of infection. CT chest showed thick-walled pleural cavities posteriorly in the lower lungs with left-sided air-fluid level with left-sided pleural fluid diminished most recent CT from 07/19/2020. There is associated compressive atelectasis and/or chronic consolidation. Persistent as it is lobe fissure, multifocal areas of reticular nodular opacity in the upper lungs remain present with slight nodularity in the left upper lobe. There is a focal consolidation improved from most recent study with some residual areas of scarring. We will emergency department patient became hypotensive with a blood pressure in the 70s, slightly tachycardic r emains in sinus mechanism, he is receiving his third liter bolus, his lactic acid did respond and improved he was started on antibiotics in the form of Zosyn and vancomycin The patient is seen today August 20 2020 in the intensive care unit. He is currently sitting up in a chair at the bedside. Awake and alert in no acute distress. Maintaining O2 saturations in the 90s on 2 L/m per nasal cannula. He did require a small dose of norepinephrine currently on 0.05 mcg/kg/m. He has lactated Ringer's at 100 MLS per hour. He remains on vancomycin and cefepime. Chest x-ray continues to show the left lower lobe effusion. White count 11.7. Hemoglobin 9.7. Sodium 135. Potassium 3.6. Creatinine 1.00. Blood cultures reveal no growth to date. Reevaluated today on 08/21/2020, remains in the ICU, still on norepinephrine at 0.04 mcg/kg/m. On LR at 1 25 mL per hour. On vancomycin and cefepime empirically, blood pressure remains marginal, went ahead and recommended Solu- Cortef 100 mg IV push every 8 hours and hopefully will be able to discontinue norepinephrine today. His IV fluid is cut down to KVO. Given 20 mg of Lasix IV push, and I have recommended that we monitor the patient in the ICU for the next 24 hours. Chest x-ray is basically the same, continues to show chronic finding, difficult to exclude underlying pneumonia/empyema. CT of the chest on admission was also reviewed, difficult to rule out underlying empyema. Clinically the patient is feeling better except for generally weak. WBC count is 12.5 hemoglobin is 9.9. Normal renal profile is normal blood cultures are negative so far. Sputum cultures are also negative so far. On 08/22/2020 patient seen in follow-up in the intensive care unit, he is awake and alert, oriented 3, sitting up in the recliner, currently on 2 L of oxygen his pulse ox is 95-100%, his been afebrile, hemodynamically he is stable, he is not on any vasopressor support. His lactate Ringer's running at 20 ML per hour, antibiotics include cefepime and vancomycin, blood pressure has been stable, so far blood and sputum cultures are negative, he denies chest pain, his breathing is comfortable. Today's labs have been reviewed, showing white blood cell count trending down, 10.2 today, hemoglobin is 8.8, electrolytes and renal profile are unremarkable. Serum cortisol level came back at 3, patient continues on stress doses of hydrocortisone 100 mg every 8 hours. Patient has not been stable, we'll consult interventional radiology for ultrasound-guided left thoracentesis On 08/23/2020 patient seen in follow-up in the intensive care unit, he is calm and comfortable, awake and alert, sitting up in the recliner, currently on room air with a pulse ox of 93-94%, his been afebrile, hemodynamically he is been stable, he is on IV LR at 20 ML per hour, no other drips. He is on cefepime and vancomycin for antibiotic coverage, yesterday he underwent left thoracentesis with removal of 43 mL of pleural fluid which was sent for cultures. Tolerated procedure well. His pleural fluid analysis revealed total fluid protein of 1.3 g, and fluid LDH of greater than 4500 consistent with exudative fluid. His microbiology data has been reviewed showing Aspergillus fumigate is in the sputum, his pleural fluid cultures are pending at this time, the cultures have shown no growth, hemodynamically has been stable, he is breathing easier, he still has cough mostly in the morning and the amount of secretions his bringing up is decreasing in amount. Lung sounds revealed a few scattered wheezes, and a few rhonchi at bilateral bases. Is tolerating oral intake. No abdominal pain, no nausea or vomiting, today's labs have been reviewed, white blood cell count is 11.2, hemoglobin is 9.1, sodium is 137, potassium is 4.0, chloride is 109, BUN is 15, creatinine 0.80. No acute events overnight. He is working on incentive spirometer, he is achieving 1000 today On 08/24/2020 patient seen in follow-up on medical surgical floor. He is awake and alert, in no acute distress, breathing comfortably, denies any chest pain, room air pulse ox is 94%, no fever or chills, today's chest x-ray shows left basilar loculated pneumothorax, stable in appearance, bilateral lung infiltrates. His pleural fluid cultures so far showing Aspergillus species, as does his sputum culture. Blood culture show no growth. The cervix is following, current antibiotic coverage includes cefepime, vancomycin has been discontinued, she received 1 dose of IV Lasix per nephrology. He has produced 2500 in urine output, and he is in -1.6 L over the last 24 hours, however he still has significant lower extremity edema On 08/26/2020 patient seen in follow-up in the intensive care unit, he is awake and alert, in no acute distress, on room air, his pulse ox is 93%, currently on amiodarone at 0.5 mg/m, heparin infusion per weight based protocol, 0.9 normal saline at a rate of 10 ML per hour, his heart rate is still poorly controlled, he remains in atrial flutter with a rate of 140 BPM. He's had no fever or chills, he status post ultrasound-guided thoracentesis of the left pleural space with removal of 45 mL of pleural fluid in the cultures were positive for Aspergillus. Infectious disease service is following, and voriconazole was started. Clinically patient denies any shortness of breath, no cough, no compressive chest pain, we discussed the case with the cardiothoracic surgery yesterday, and plan is to proceed with the placement of Pleurx catheter into the left pleural space today. Objective - Vital Signs Vital signs: Vital Signs Temp 97.7 F 08/26/20 04:00 Pulse 141 H 08/26/20 04:00 Resp 15 08/26/20 04:00 BP 92/68 08/26/20 04:00 Pulse Ox 93 L 08/26/20 04:00 Intake & Output 08/25/20 08/26/20 08/26/20 18:59 06:59 18:59 Intake Total 905.374 6292.005 Output Total 2050 400 450 Balance -1907.250 755.005 -450 Intake: IV 40 800 0.9 40 450 Potassium Chloride 20 meq 100 In Water For Injection 1 100ml.bag @ 50 mls/hr IVPB Q2H [facility] Rx#: [id number] Voriconazole 400 mg In 250 Sodium Chloride 0.9% 250 ml @ 125 mls/hr IVPB Q12HR [facility] Rx#:[id number] Intake, IV Titration 102.750 355.005 Amount Amiodarone 450 mg In 143.892 Dextrose 5% in Water 250 ml @ 0.5 MG/MIN 16.667 mls/hr IV .Q15H [facility] Rx#: [id number] Diltiazem 125 mg In 42.917 Sodium Chloride 0.9% 100 ml @ 5 MG/HR 5 mls/hr IV .Q24H [facility] Rx#:[id number] Heparin Sod,Pork in 0.45% 59.833 211.113 NaCl 25,000 unit In 0.45 % NaCl 1 250ml.bag @ 9.93 UNITS/KG/HR 10 mls/hr IV .Q24H [facility] Rx#:[id number] Output: Urine 2050 400 450 Other: Voiding Method Toilet Urinal - Exam GENERAL EXAM: Alert, pleasant, 60-year-old male patient, on room air with a pulse ox of 94%, currently sitting up in chair at the bedside, comfortable in no apparent distress. HEAD: Normocephalic/atraumatic. EENT: PERRLA, EOMI, nonicteric. Moist mucous membranes, no neck masses, no JVD, no stridor. CHEST: No chest wall deformity. Symmetrical expansion. LUNGS: Bibasilar rhonchi, and a few scattered wheezes CVS: Regular rate and rhythm, normal S1 and S2, no gallops, no murmurs, no rubs ABDOMEN: Soft, nontender. No hepatosplenomegaly, normal bowel sounds, no guarding or rigidity. EXTREMITIES: No clubbing, 1+ lower extremity edema, no cyanosis, 2+ pulses and upper and lower extremities. MUSCULOSKELETAL: Muscle strength and tone normal. SPINE: No scoliosis or deformity SKIN: No rashes CENTRAL NERVOUS SYSTEM: Alert and oriented -3. No focal deficits, tone is normal in all 4 extremities. PSYCHIATRIC: Alert and oriented -3. Appropriate affect. Intact judgment and insight. - Labs CBC & Chem 7: 08/26/20 05:27 08/26/20 05:27 Labs: Abnormal Lab Results - Last 24 Hours (Table) 08/25/20 08/25/20 08/26/20 Range/Units 06:04 14:46 05:27 WBC 16.6 H (3.8-10.6) k/uL RBC 3.84 L (4.30-5.90) m/uL Hgb 9.8 L (13.0-17.5) gm/dL Hct 33.5 L (39.0-53.0) % MCHC 29.2 L (31.0-37.0) g/dL RDW 17.7 H (11.5-15.5) % Neutrophils # 13.8 H (1.3-7.7) k/uL ESR >140 H (0-20) mm/Hr APTT (22.0-30.0) sec Potassium 2.6 L* (3.5-5.1) mmol/L Chloride (98-107) mmol/L BUN (9-20) mg/dL Glucose (74-99) mg/dL 08/26/20 08/26/20 Range/Units 05:27 05:27 WBC (3.8-10.6) k/uL RBC (4.30-5.90) m/uL Hgb (13.0-17.5) gm/dL Hct (39.0-53.0) % MCHC (31.0-37.0) g/dL RDW (11.5-15.5) % Neutrophils # (1.3-7.7) k/uL ESR (0-20) mm/Hr APTT 36.6 H (22.0-30.0) sec Potassium (3.5-5.1) mmol/L Chloride 110 H (98-107) mmol/L BUN 29 H (9-20) mg/dL Glucose 135 H (74-99) mg/dL Microbiology - Last 24 Hours (Table) 08/19/20 13:00 Blood Culture - Final Blood No Growth after 144 hours 08/19/20 09:26 Blood Culture - Final Blood No Growth after 144 hours 08/22/20 11:30 Gram Stain - Final Pleural Fluid Body Fluid Culture - Final Aspergillus fumigatus Assessment and Plan Plan: Assessment: #1. Acute hypoxic respiratory failure related to sepsis, septic shock, related to pneumonia, with chronic loculated effusions, rule out possibility of empyema. COVID 19 was ruled out per PCR #2. Bilateral hydropneumothorax, rule out possibility of empyema, status post ultrasound-guided left-sided thoracentesis on 08/22/2020 would removal of 45 mL of cloudy white fluid, which was exudative in nature, pleural fluid culture only showing Aspergillus, antibiotic coverage is with cefepime and vancomycin, it service is following, CT surgery has no plans for surgical intervention at this time #3. Recent admission to the hospital for hypotension, dehydration related to nausea vomiting diarrhea, acute kidney injury #4. Recurrent pulmonary infections, with history of streptococcal pneumonia and empyema requiring chest tube placement in January 2020 #5. Chronic loculated pneumothoraces, posterior, with air-fluid level seen on the CT imaging of the chest, the possibility of trapped lung, chronic scarring and possibility of empyema needs to be ruled out #6. Elevated d-dimer with no CT evidence for pulmonary embolism #7. History of rheumatoid arthritis and rheumatoid lung disease on Arava #8. Recent history of acute kidney injury, and admission lab work today shows improvement in his renal function #9. Hypertension #10. Hypothyroidism #11. Previous history of foot infections requiring antibiotics #12. Previous history of DVT Plan: Continue antibiotics per ID service recommendations, patient is currently just voriconazole, no fever or chills, remains in A. flutter with RVR, anticoagulation and rate control medications per cardiology, we discussed the case with CT surgery, and the plan is to proceed with placement of left-sided Pleurx catheter today. Provide incentive spirometer, encourage deep breathing and coughing, continue same dose hydrocortisone, breathing treatments. we'll continue to closely follow. I performed a history & physical examination of the patient and discussed their management with my nurse practitioner, Марина Thompson. I reviewed the nurse practitioner's note and agree with the documented findings and plan of care. Lung sounds are positive for diminished breath sounds. The findings and the impression was discussed with the patient. I attest to the documentation by the nurse practitioner. Time with Patient: Less than 30
[2020-08-26 11:55] LABS: Glucose,Whole Blood 157 mg/dL (75-99)
[2020-08-26] MEDS: LACTATED RINGERS 1,000 ML IV SCH (12:26)
[2020-08-26] MEDS ORDERED: APIXABAN 5 MG TAB PO SCH (12:30)
[2020-08-26] MEDS ORDERED: HEPARIN SODIUM,PORCINE 5,000 UNIT/ML 1 ML VIAL IV PRN (14:08)
--- NOTE | 2020-08-26 14:45 | P.PN ---
Subjective Pt is seen and examined sitting up in the chair in no acute distress. He continues to be atrial flutter with 2:1 conduction rates around 150. Blood pressure 84/48. Laboratory data reviewed, WBC 16.6, hgb 9.8, plt 374, sodium 143, potassium 3.9, creatinine 0.88. Currently maintained on IV amiodarone, IV heparin, aspirin 81 mg daily and lasix 40 mg IV daily. Denies chest pain, dizziness or palpitations. GENERAL: Well-appearing, well-nourished and in no acute distress. NECK: Supple without JVD or thyromegaly. LUNGS: Scattered rhonchi, no wheezes or rales. Respiration equal and unlabored. No wheezes, rales or rhonchi. HEART: Regular rate and rhythm without murmurs, rubs or gallops. S1 and S2 heard. EXTREMITIES: Normal range of motion, no edema. No clubbing or cyanosis. Peripheral pulses intact. ASSESSMENT Atrial flutter with rapid ventricular rate Fungal infection with empyema Hypertension Dyslipidemia PLAN Continue IV heparin infusion. Continue amiodarone infusion through the night. If he remains in atrial flutter with RVR we will consider cardioversion in the morning. Nurse Practitioner note has been reviewed, I agree with a documented findings and plan of care. Patient was seen and examined. Objective - Vital Signs Vital signs: Vital Signs Temp 97.6 F 08/26/20 12:00 Pulse 147 H 08/26/20 12:00 Resp 17 08/26/20 12:00 BP 84/48 08/26/20 12:00 Pulse Ox 90 L 08/26/20 12:00 Intake & Output 08/25/20 08/26/20 08/26/20 18:59 06:59 18:59 Intake Total 364.420 9988.005 113.59 Output Total 2050 400 1350 Balance -1907.250 755.005 -1236.41 Intake: IV 40 800 0.9 40 450 Potassium Chloride 20 meq 100 In Water For Injection 1 100ml.bag @ 50 mls/hr IVPB Q2H [facility] Rx#: [id number] Voriconazole 400 mg In 250 Sodium Chloride 0.9% 250 ml @ 125 mls/hr IVPB Q12HR [facility] Rx#:[id number] Intake, IV Titration 102.750 355.005 113.59 Amount Amiodarone 450 mg In 143.892 Dextrose 5% in Water 250 ml @ 0.5 MG/MIN 16.667 mls/hr IV .Q15H [facility] Rx#: [id number] Diltiazem 125 mg In 42.917 Sodium Chloride 0.9% 100 ml @ 5 MG/HR 5 mls/hr IV .Q24H [facility] Rx#:[id number] Heparin Sod,Pork in 0.45% 59.833 211.113 113.59 NaCl 25,000 unit In 0.45 % NaCl 1 250ml.bag @ 9.93 UNITS/KG/HR 10 mls/hr IV .Q24H [facility] Rx#:[id number] Output: Urine 2050 400 1350 Other: Voiding Method Toilet Toilet Urinal Urinal - Labs CBC & Chem 7: 08/26/20 05:27 08/26/20 05:27 Labs: Abnormal Lab Results - Last 24 Hours (Table) 08/25/20 08/26/20 08/26/20 Range/Units 14:46 05:27 05:27 WBC 16.6 H (3.8-10.6) k/uL RBC 3.84 L (4.30-5.90) m/uL Hgb 9.8 L (13.0-17.5) gm/dL Hct 33.5 L (39.0-53.0) % MCHC 29.2 L (31.0-37.0) g/dL RDW 17.7 H (11.5-15.5) % Neutrophils # 13.8 H (1.3-7.7) k/uL APTT 36.6 H (22.0-30.0) sec Potassium 2.6 L* (3.5-5.1) mmol/L Chloride (98-107) mmol/L BUN (9-20) mg/dL Glucose (74-99) mg/dL POC Glucose (mg/dL) (75-99) mg/dL 08/26/20 08/26/20 08/26/20 Range/Units 05:27 11:53 11:53 WBC (3.8-10.6) k/uL RBC (4.30-5.90) m/uL Hgb (13.0-17.5) gm/dL Hct (39.0-53.0) % MCHC (31.0-37.0) g/dL RDW (11.5-15.5) % Neutrophils # (1.3-7.7) k/uL APTT 75.9 H (22.0-30.0) sec Potassium (3.5-5.1) mmol/L Chloride 110 H (98-107) mmol/L BUN 29 H (9-20) mg/dL Glucose 135 H (74-99) mg/dL POC Glucose (mg/dL) 157 H (75-99) mg/dL Microbiology - Last 24 Hours (Table) 08/19/20 13:00 Blood Culture - Final Blood No Growth after 144 hours 08/19/20 09:26 Blood Culture - Final Blood No Growth after 144 hours 08/22/20 11:30 Gram Stain - Final Pleural Fluid Body Fluid Culture - Final Aspergillus fumigatus
--- NOTE | 2020-08-26 14:50 | P.PN ---
Subjective Progress Note Date: 08/26/20 This is a 60-year-old male patient requesting my service with past medical history of rheumatoid arthritis on Arava that was diagnosed when he was 37 year old initially was started on Methotrexate that he could not tolerate then placed on Embrel but he developed side effects and finally was tried on Humira injection but he developed neurologic sided effects and was hospitaized at [facility] for quiet some time, rheumatoid lung disease, previous history of loculated empyema with chest tube placement in January 2020, hypertension, hypothyroidism, history of DVT, remote history of tobacco use and dependence, was recently hospitalized at [facility] after he was admitted for an acute kidney injury with significant metabolic acidosis associated with the elevated creatinine and elevated BUN and hypotension at that time he was seen and evaluated by pulmonary and critical care medicine, he had a central line placed and at that time, he was placed on Levophed drip he was p laced on IV anabiotic as well but the patient recovered very fast and he had an echocardiogram that showed normal LV function and segmental hypokinesia, he was supposed to follow-up with Dr. 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 hog raiser today and he had an episode when he was dizzy lightheaded and an episode of vomiting as well and he was sent to the emergency department for evaluation had a computed tomography of the chest as well as abdomen and pelvis that showed a thick walled pleural cavities posteriorly in the lower lungs with left-sided air-fluid level that has diminished in size from the prior computed tomography scan when he was in the hospital a few weeks back there is also associated compressive atelectasis and chronic consultation with multifocal areas of reticular nodular opacity in the upper lungs with a slight nodularity of the left upper lobe again this area of focal consultation has improved from the previous study that was done few weeks ago, patient was started on IV antibiotic with vancomycin and Zosyn as well as IV fluid, he was seen in consultation by pulmonary critical care in the emergency department as the patient blood pressure dropped and that he'll be transferred to the intensive care unit at this point in time I had long conve rsation with the patient and his at the bedside and the patient may need to have a chest tube placed for his possible right empyema, he did receive 3 L normal saline in the ER, and his blood pressure is marginal he may need to go on pressors if not recovered. 08/20:patient is sitting up in chair feeling about the same , complains of increased pain in the righ elbow, was seen earlier by pulmonary and the plan was to go for US-Guided left thoracenthesis due to to loculated left pleural effu unique and possible empyema, may need VATS, he denies any chest pain or shortness of breath, no abdominal pain nausea, vomiting or diarrhea, still have diarrhea negative for C.Diff, he seems to have accept to stay in the hospital this time as long as he needed to. 08/21: Patient sitting up in the recliner complaining of increased pain in his joints due to his rheumatoid arthritis with increased synovitis in both wrists both elbows and both shoulders he was started on hydrocortisone 100 mg IV push every 8 hours, to try to help with his blood pressure as well as his phonation, he is maintained on [place] 5/325 mg one tablet orally every 6 hours as needed for pain control, patient denies any chest pain is less short of breath, he continues to have increased coughing with yellow from production of green phlegm production, he had no fever or chills at this time he continues to be on Levothroid drip, patient has appeared to have increased swelling in both lower extremities as well as both ankles, he is maintained on IV antibiotic in the form of vancomycin as well as cefepime, infectious disease is following, patient is scheduled to go for ultrasound guidance thoracentesis of the left loculated pleural effusion tomorrow morning. 08/22: Patient remains in the intensive care unit. He has been afebrile, heart rate 100, blood pressure 95/62, pulse ox 97% on 2 L nasal cannula. Hemoglobin 8.8 and leukocytosis resolved. Creatinine 0.76, electrolytes normal. Sputum culture is positive for Aspergillus species. Blood culture showing no growth. Patient underwent diagnostic thoracentesis with interventional radiology today with removal of 45 mL of cloudy white fluid. Chest x-ray reveals no complications following left thoracentesis. Fluid has been sent for culture and cytology. Consult in place for cardiothoracic surgery to evaluate for VATS with decortication. 08/23: Patient remains in the intensive care unit. He did receive 1 dose of IV Lasix this morning ordered by nephrology. He is followed by cardiothoracic surgery was no plan for surgical intervention. ID has recommended cefepime and vancomycin for now. Expect antifungal agent ended as well. Patient denies any significant shortness of breath. He is comfortable sitting in a chair. Patient is having minimal cough and minimal sputum. Patient is achieving 1000 ml on incentive spirometry. Culture and cytology reports remain pending from thoracentesis. Repeat chest x-ray reveals patchy peripheral lung with lung zone and lower lung zone infiltrates persist unchanged. Patient has been afebrile, heart rate in the 90s and low 100s, pulse ox 91 on room air. 23: Repeat chest x-ray reveals left-sided basilar loculated pneumothorax, stable. Bilateral lung infiltrates. Correlate for pneumonia and atelectasis. WBC 9, hemoglobin 9.5. Potassium 3.4 and will be replaced. Patient is continued on cefepime and vancomycin per Dr. Blanton's recommendations. Patient in reaching 1000 on incentive spirometry. Patient is scheduled to see Dr. Dubois tomorrow. Cefepime and vancomycin had been discontinued by Dr. Blanton and started on Voriconazole. 08/25: A-Team was called this morning regarding elevated heart rate, EKG was atrial flutter with RVR and 150 bpm and patient was transferred to ICU as an overflow for the cardiac stepdown unit, started on Cardizem drip and consult with cardiology. Heart rate was improved with Cardizem and patient also received amiodarone bolus 300 mg. Patient denies any worsening shortness of breath, cough or congestion. No chest pain or palpitations. Patient is resting comfortably. 09, hemoglobin 8.8, potassium 3.4 replaced. Creatinine 0.89. 08/26: Patient remains in the intensive care unit. He continues to be in atrial flutter with 21 conduction rate. He is on heparin drip and amiodarone. He is currently in and out of atrial flutter with RVR. Cardiology is following closely and may consider cardioversion tomorrow. WBC 16.6, hgb 9.8, plt 374, sodium 143, potassium 3.9, creatinine 0.88. He has been afebrile, heart rate has been at times marginal, pulse ox 90% on room air. Patient denies having any fever or chills, no shortness of breath, no cough. No chest pain. Patient is followed by cardiothoracic surgery and plan is for left-sided PleurX catheter placement which is scheduled for Saturday. Objective - Vital Signs Vital signs: Vital Signs Temp 97.6 F 08/26/20 12:00 Pulse 147 H 08/26/20 12:00 Resp 17 08/26/20 12:00 BP 84/48 08/26/20 12:00 Pulse Ox 90 L 08/26/20 12:00 Intake & Output 08/25/20 08/26/20 08/26/20 18:59 06:59 18:59 Intake Total 419.210 2385.005 113.59 Output Total 0 400 1350 Balance -1907.250 755.005 -1236.41 Intake: IV 40 800 0.9 40 450 Potassium Chloride 20 meq 100 In Water For Injection 1 100ml.bag @ 50 mls/hr IVPB Q2H [facility] Rx#: [id number] Voriconazole 400 mg In 250 Sodium Chloride 0.9% 250 ml @ 125 mls/hr IVPB Q12HR [facility] Rx#:[id number] Intake, IV Titration 102.750 355.005 113.59 Amount Amiodarone 450 mg In 143.892 Dextrose 5% in Water 250 ml @ 0.5 MG/MIN 16.667 mls/hr IV .Q15H [facility] Rx#: [id number] Diltiazem 125 mg In 42.917 Sodium Chloride 0.9% 100 ml @ 5 MG/HR 5 mls/hr IV .Q24H [facility] Rx#:[id number] Heparin Sod,Pork in 0.45% 59.833 211.113 113.59 NaCl 25,000 unit In 0.45 % NaCl 1 250ml.bag @ 9.93 UNITS/KG/HR 10 mls/hr IV .Q24H [facility] Rx#:[id number] Output: Urine 2050 400 1350 Other: Voiding Method Toilet Toilet Urinal Urinal - Exam Review of Systems Constitutional: Reports anorexia, Reports chronic pain, Reports fatigue, Reports weakness, Reports weight loss Eyes: denies blurred vision, denies bulging eye, denies decreased vision, denies diplopia Ears, nose, mouth and throat: Denies dysphagia, Denies neck lump, Denies sore throat Respiratory: Reports dyspnea, Reports respiratory infections, Denies congestion, Denies cough with sputum, Denies home oxygen, Denies sleep apnea, Denies snoring, Denies wheezing Cardiac: No chest pain. No palpitations. No lower extremity edema. No syncopal episodes. Gastrointestinal: Reports bloating, Reports change in bowel habits, Reports diarrhea, Reports early satiety, Reports indigestion, Reports loss of appetite, Reports nausea, Reports vomiting, Denies abdominal pain, Denies belching, Denies heartburn, Denies hematemesis, Denies hematochezia, Denies melena Genitourinary: Denies dysuria, Denies nocturia Musculoskeletal: Denies myalgias Musculoskeletal: absent: ankle pain, ankle stiffness, ankle swelling, elbow pain, elbow stiffness, elbow swelling, foot pain, foot stiffness, foot swelling, hand pain, hand stiffness, hand swelling, hip pain, hip stiffness, hip swelling, knee pain, knee stiffness, knee swelling, shoulder pain, shoulder stiffness, shoulder swelling, wrist pain, wrist stiffness, wrist swelling Integumentary: Denies pruritus, Denies rash Neurological: Denies numbness, Denies weakness Psychiatric: Denies anxiety, Denies depression Endocrine: Denies fatigue, Denies weight change Physical examination: General: patient is 60 year old lying down in bed in no acute distress. HEENT: head ia atraumatic normocephalic, Pupils were equal round reactive to light and accommodations , extra ocular muscle movement were intact, mucous membranes of the mouth are somewhat dry. Neck: supple no JVP. Chest: decreased breath sounds at he bases with few ronchi no expiratory wheezes no chest wall tendernes or intercostal retractions. Heart: first heart sound is depressed, second heart sound is normal tachycardic there is BIRD 2/6 located at the left sternal border. Abdomen: soft, mild tenderness to the left lower quadrant positive bowel sounds, no guarding or rebound tenderness, no hepatosplenomegaly. Extremities: there is no edema or calf tenderness DP+ 2 Bilaterally, there is what appears to be a charcot joint in the right foot form arch collapse. Neurologic examination: patient is awake , alert and oriented X 3 CN II-XII are grossly intact, muscle power 4/5 in bilateral upper and lower extremities, deep tendon reflexes were normal. - Labs CBC & Chem 7: 08/26/20 05:27 08/26/20 05:27 Labs: Abnormal Lab Results - Last 24 Hours (Table) 08/25/20 08/26/20 08/26/20 Range/Units 14:46 05:27 05:27 WBC 16.6 H (3.8-10.6) k/uL RBC 3.84 L (4.30-5.90) m/uL Hgb 9.8 L (13.0-17.5) gm/dL Hct 33.5 L (39.0-53.0) % MCHC 29.2 L (31.0-37.0) g/dL RDW 17.7 H (11.5-15.5) % Neutrophils # 13.8 H (1.3-7.7) k/uL APTT 36.6 H (22.0-30.0) sec Potassium 2.6 L* (3.5-5.1) mmol/L Chloride (98-107) mmol/L BUN (9-20) mg/dL Glucose (74-99) mg/dL POC Glucose (mg/dL) (75-99) mg/dL 08/26/20 08/26/20 08/26/20 Range/Units 05:27 11:53 11:53 WBC (3.8-10.6) k/uL RBC (4.30-5.90) m/uL Hgb (13.0-17.5) gm/dL Hct (39.0-53.0) % MCHC (31.0-37.0) g/dL RDW (11.5-15.5) % Neutrophils # (1.3-7.7) k/uL APTT 75.9 H (22.0-30.0) sec Potassium (3.5-5.1) mmol/L Chloride 110 H (98-107) mmol/L BUN 29 H (9-20) mg/dL Glucose 135 H (74-99) mg/dL POC Glucose (mg/dL) 157 H (75-99) mg/dL Microbiology - Last 24 Hours (Table) 08/19/20 13:00 Blood Culture - Final Blood No Growth after 144 hours 08/19/20 09:26 Blood Culture - Final Blood No Growth after 144 hours 08/22/20 11:30 Gram Stain - Final Pleural Fluid Body Fluid Culture - Final Aspergillus fumigatus Assessment and Plan Assessment: Assessment and plan: 1. Acute hypoxemic respiratory failure secondary to loculated left-sided pleural effusion and fungal empyema with what appears to be recurrent pneumonia. Continue Voriconazole 200 mg every 12 hours IV piggyback per Dr. Blanton, interventional radiology performed ultrasound-guided thoracentesis of the left loculated pleural fluid for Gram stain and culture and cytology as well as LDH protein as well as pH for possible empyema. Culture positive for Aspergillus. Cardiothoracic surgery following with plans for Pleurx catheter on Saturday 2. Lactic acidosis. Resolved, repeat lactic acid is back to normal. 3. Sepsis with septic shock. Patient has been weaned off Levothroid drip. 4. Acute kidney injury due to poor oral intake of fluid as well as hypotension with acute tubular necrosis. Patient is on IV fluid, continue to monitor the patient CMP continue to monitor urine output. Nephrology is following. 5. Leukocytosis secondary to severe sepsis secondary to empyema. Continue IV fluid, continue IV antibiotic, repeat CBC tomorrow morning. 6. Atrial flutter with RVR. Continue amiodarone drip and possible cardioversion tomorrow.Cardiology consult appreciated. 7. Rheumatoid arthritis and rheumatoid lung. Arava and Xeljanz had been on hold since April, patient was started on hydrocortisone 100 mg IV push every 8 hours. 8. History of empyema with Streptococcus requiring chest tube. His is a similar scenario may need a cardiothoracic surgery consultation. 9. Hypertension and hypertensive cardiovascular disease. currently hypotensive . Continue the IV fluid currently as well as IV pressors if needed 10. Hypothyroidism . we will continue with Synthroid 150 mcg orally daily. 11. DVT prophylaxis. we will start Lovenox 40 mg SC daily and bilateral knee high Cecilio Hose 12. GI prophylaxis. we will continue with Protonix 40 mg IVP daily. 13. Prognosis continues to be guarded.
--- NOTE | 2020-08-26 15:51 | PN ---
PROGRESS NOTE DATE OF SERVICE: 08/26/2020 REASON FOR FOLLOWUP: Left-sided empyema aspergillus. INTERVAL HISTORY: The patient is currently afebrile. The patient is breathing slightly comfortably. The patient denies having any chest pain. He did have some cough, not bringing up any sputum. No nausea, no vomiting, no abdominal pain or diarrhea. PHYSICAL EXAMINATION: Blood pressure is 123/87 with a pulse of 151, temperature 98. He is 90% on room air. General description is a middle-aged male lying in bed in no distress. RESPIRATORY SYSTEM: Unlabored breathing with decreased intensity of breath sounds. No wheeze. HEART: S1, S2. Regular rate and rhythm. ABDOMEN: Soft. No tenderness. LABS: Hemoglobin 9.8, white count 16.6, BUN of 29, creatinine 0.88. DIAGNOSTIC IMPRESSION AND PLAN: 1. Patient with left-sided empyema. Culture positive for Aspergillus fumigatus. The patient is on voriconazole. Continue, and transition to oral on discharge. Possible on Saturday as per discussion with CT Surgery. Continue with supportive care. 2. Elevated white count, more likely steroid-related. This will be monitored closely. MMODL / IJN: [id number] /
[2020-08-26] MEDS: ASCORBIC ACID 500 MG TAB PO SCH (20:01)
[2020-08-26] MEDS: ASPIRIN 81 MG PO SCH (20:01)
[2020-08-26] MEDS: CHOLECALCIFEROL 25 MCG (1000 IU) TABLET PO SCH (20:01)
[2020-08-26 20:41] LABS: Glucose,Whole Blood 125 mg/dL (75-99)
[2020-08-27 02:35] LABS: Anisocytosis Slight; HCT 30.2 % (39.0-53.0); HGB 9.2 gm/dL (13.0-17.5); Hypochromasia Marked; MCH 26.7 pg (25.0-35.0); MCHC 30.6 g/dL (31.0-37.0); MCV 87.3 fL (80.0-100.0); Mean Platelet Volume 7.8; Platelet Count 354 k/uL (150-450); RBC 3.46 m/uL (4.30-5.90); RDW 18.4 % (11.5-15.5)
[2020-08-27 03:46] LABS: Band Neutrophils % 8 %; Lymphocytes # (M) 1.14 k/uL (1.0-4.8); Metamyelocytes # (M) 0.95 k/uL (0); Metamyelocytes % 5 %; Monocytes # (M) 0.95 k/uL (0-1.0); Myelocytes # (M) 0.19 k/uL (0); Myelocytes % 1 %; Neutrophils % (M) 76 %; Nucleated Red Blood Cells 0 /100 WBC (0-0); Total Cells Counted 200
[2020-08-27 03:48] LABS: Anisocytosis (M) Present; Polychromasia Present
[2020-08-27 03:49] LABS: African American GFR (CKD) >90 (>60 ml/min/1.73 sqM); Anion Gap 7 mmol/L; Blood Urea Nitrogen 31 mg/dL (9-20); Calcium 8.5 mg/dL (8.4-10.2); Carbon Dioxide 28 mmol/L (22-30); Chloride 107 mmol/L (98-107); Glucose 149 mg/dL (74-99); Non-African American GFR(CKD) >90 (>60 ml/min/1.73 sqM); Sodium 142 mmol/L (137-145)
[2020-08-27 04:04] LABS: Potassium 3.6 mmol/L (3.5-5.1)
[2020-08-27] MEDS: PANTOPRAZOLE 40 MG TABLET PO SCH (05:41)
[2020-08-27] MEDS: LEVOTHYROXINE 75 MCG TAB PO SCH (05:41)
[2020-08-27 05:46] LABS: Glucose,Whole Blood 116 mg/dL (75-99)
[2020-08-27] MEDS: IPRATROPIUM-ALBUTEROL 3 ML NEB INHALATION SCH ×3 (08:15→19:22)
[2020-08-27] MEDS: HYDROCORTISONE SUCCINATE 100 MG/2 ML VIAL IV SCH ×3 (08:28→23:00)
[2020-08-27] MEDS: FUROSEMIDE 10 MG/ML 4 ML VIAL IV SCH (08:28)
[2020-08-27] MEDS: TRIAMCINOLONE 0.1% CREAM 80 GM TUBE TOPICAL SCH ×2 (08:29→19:36)
[2020-08-27] MEDS: AMIODARONE 200 MG TAB PO SCH ×2 (08:53→19:35)
[2020-08-27] MEDS: VORICONAZOLE 400 MG in SODIUM CHLORIDE 0.9% 250 ML IVPB SCH ×2 (08:54→19:36)
[2020-08-27] MEDS ORDERED: METOPROLOL TARTRATE 25 MG TAB PO SCH (09:00)
--- NOTE | 2020-08-27 09:56 | P.PN ---
Subjective Progress Note Date: 08/27/20 Principal diagnosis: Bilateral pneumonia, bilateral hydropneumothorax, possible empyema, sputum culture preliminarily positive for Aspergillus species, acute hypoxic respiratory failure with sepsis on admission. Past medical history significant for multiple admissions for pneumonia with empyema on the left and previous bilateral chest tube placement in December 2019 with cultures positive for strep pneumonia, rheumatoid arthritis with rheumatoid lung, hypertension, hypothyroidism, DVT, previous tobacco dependence, family history of lung cancer, and recent hospitalization for hypotension, dehydration, acute kidney injury requiring dialysis. POD #5 left-sided thoracentesis by interventional radiology. The patient was seen on follow-up today 08/27/2020 at his bedside on the cardiac stepdown unit. Currently sitting up to the bedside chair, is awake, alert and oriented 3. Denies any complaints of pain or shortness of breath at this time. Remote telemetry showing atrial flutter with heart rate of 106 bpm. Amiodarone drip remains infusing at 0.5 mg/m and heparin drip is infusing per protocol. Oxygen saturation are 95% on 2 L nasal cannula. He is achieving 1000 mL on his incentive spirometry. The patient is scheduled for a left Pleurx catheter placement on 08/29/2020. Laboratory results show a WBC count trending up at 19.0, hemoglobin 9.2, hematocrit 30.2, platelets 354, band count 8%, PTT 41.5, BUN 31, and creatinine 0.81. Objective - Vital Signs Vital signs: Vital Signs Temp 97.5 F L 08/27/20 08:25 Pulse 118 H 08/27/20 08:25 Resp 16 08/27/20 08:25 BP 112/72 08/27/20 08:25 Pulse Ox 95 08/27/20 08:25 Intake & Output 08/26/20 08/27/20 08/27/20 18:59 06:59 18:59 Intake Total 113.59 467.532 Output Total 1350 200 200 Balance -1236.41 267.532 -200 Weight 100.1 kg Intake: Intake, IV Titration 113.59 227.532 Amount Heparin Sod,Pork in 0.45% 227.532 NaCl 25,000 unit In 0.45 % NaCl 1 250ml.bag @ 16 UNITS/KG/HR 16.112 mls/hr IV .[id number] [facility] Rx#: [id number] Heparin Sod,Pork in 0.45% 113.59 NaCl 25,000 unit In 0.45 % NaCl 1 250ml.bag @ 9.93 UNITS/KG/HR 10 mls/hr IV .Q24H [facility] Rx#:[id number] Oral 240 Output: Urine 1350 200 200 Other: Voiding Method Toilet Toilet Urinal Urinal # Voids 1 # Bowel Movements 1 - Constitutional General appearance: Present: cooperative, no acute distress, obese - EENT Eyes: Present: normal appearance. Absent: scleral icterus ENT: Present: hearing grossly normal - Neck Details: Neck is supple, no JVD. - Respiratory Details: Lung sounds with expiratory wheezes throughout, diminished to his bilateral bases. Respirations are symmetrical and nonlabored. Oxygen saturation is 95% on 2 L nasal cannula. Achieving 1000 mL on his incentive spirometry. - Cardiovascular Details: Irregular rhythm and tachycardic rate. S1 and S2 present, negative for S3, gallop or murmur. Remote telemetry showing atrial flutter heart rate 106 BPM. Knee-high BRISA hose and sequential compression devices in place to his bilateral lower extremities. - Gastrointestinal Gastrointestinal Comment(s): Abdomen is soft, nontender nondistended. Active bowel sounds present in all 4 abdominal quadrants. No guarding or rigidity. No organomegaly appreciated. Tolerating oral intake. - Genitourinary Genitourinary Comment(s): Continues to void. - Integumentary Integumentary Comment(s): Skin is warm and dry. No clubbing or cyanosis is present. - Neurologic Neurologic: Present: CNII-XII intact. Absent: focal deficits - Musculoskeletal Musculoskeletal: Present: gait normal, generalized weakness, strength equal bilaterally - Psychiatric Psychiatric: Present: A&O x's 3, appropriate affect, intact judgment & insight - Allied health notes Allied health notes reviewed: nursing - Labs CBC & Chem 7: 08/27/20 02:15 08/27/20 02:15 Labs: Abnormal Lab Results - Last 24 Hours (Table) 08/26/20 08/26/20 08/26/20 Range/Units 11:53 11:53 20:40 WBC (3.8-10.6) k/uL RBC (4.30-5.90) m/uL Hgb (13.0-17.5) gm/dL Hct (39.0-53.0) % MCHC (31.0-37.0) g/dL RDW (11.5-15.5) % Neutrophils # (Manual) (1.3-7.7) k/uL Metamyelocytes # (Man) (0) k/uL Myelocytes # (Manual) (0) k/uL APTT 75.9 H (22.0-30.0) sec BUN (9-20) mg/dL Glucose (74-99) mg/dL POC Glucose (mg/dL) 157 H 125 H (75-99) mg/dL 08/27/20 08/27/20 08/27/20 Range/Units 02:15 02:15 02:15 WBC 19.0 H (3.8-10.6) k/uL RBC 3.46 L (4.30-5.90) m/uL Hgb 9.2 L (13.0-17.5) gm/dL Hct 30.2 L (39.0-53.0) % MCHC 30.6 L (31.0-37.0) g/dL RDW 18.4 H (11.5-15.5) % Neutrophils # (Manual) 15.90 H (1.3-7.7) k/uL Metamyelocytes # (Man) 0.95 H (0) k/uL Myelocytes # (Manual) 0.19 H (0) k/uL APTT 41.5 H (22.0-30.0) sec BUN 31 H (9-20) mg/dL Glucose 149 H (74-99) mg/dL POC Glucose (mg/dL) (75-99) mg/dL 08/27/20 Range/Units 05:44 WBC (3.8-10.6) k/uL RBC (4.30-5.90) m/uL Hgb (13.0-17.5) gm/dL Hct (39.0-53.0) % MCHC (31.0-37.0) g/dL RDW (11.5-15.5) % Neutrophils # (Manual) (1.3-7.7) k/uL Metamyelocytes # (Man) (0) k/uL Myelocytes # (Manual) (0) k/uL APTT (22.0-30.0) sec BUN (9-20) mg/dL Glucose (74-99) mg/dL POC Glucose (mg/dL) 116 H (75-99) mg/dL Assessment and Plan Assessment: 1. Bilateral pneumonia, bilateral hydropneumothorax, possible empyema, sputum culture preliminarily positive for Aspergillus species, status post left-sided thoracentesis 2. Acute hypoxic respiratory failure with sepsis on admission 3. Multiple admissions for pneumonia with empyema on the left and previous bilateral chest tube placement in December 2019 with cultures positive for strep pneumonia 4. Rheumatoid arthritis with rheumatoid lung 5. Hypertension, currently hypotensive, requiring pressors on admission 6. Hypothyroidism 7. History of DVT 8. Previous tobacco dependence 9. Family history of lung cancer 10. Recent hospitalization for hypotension, dehydration, acute kidney injury requiring dialysis 11. New-onset atrial fibrillation/atrial flutter with rapid ventricular response, on amiodarone drip Plan: 1. Pleural fluid culture and sputum culture shows Aspergillus Fumigatus. 2. Continue to follow chest x-rays. 3. Encourage incentive spirometry 10 times every hour while awake. Bronchodilators per pulmonary for/critical care medicine. 4. Currently on Vfend managed by infectious disease. Amphotericin B pleural irrigation and available for on-call to the operating room for 08/29/2020. 5. Increase activity as tolerated. 6. Medical management and other comorbidities per primary care service. 7. The patient is scheduled for a left Pleurx catheter placement on 08/29/2020 to be performed by Dr. Oswaldo Dubois. 8. More recommendations to follow based on patient's clinical course. Time with Patient: Greater than 30
[2020-08-27 11:59] LABS: Glucose,Whole Blood 135 mg/dL (75-99)
[2020-08-27] MEDS: HEPARIN SOD,PORK IN 0.45% NACL 25,000 UNIT in 0.45% NACL 1 250ML.BAG IV SCH ×2 (12:16→23:00)
--- NOTE | 2020-08-27 13:09 | P.PN ---
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 Other medical history includes hypertension, hypothyroidism and previous history of DVT. Patient had a recent hospitalization from August 08 through 08/11/2020 hypotension, dehydration re lated to nausea vomiting diarrhea, acute kidney injury. Patient received antibiotics in the form of Zosyn and Levaquin for possibility of pneumonia, he is chest x-ray showed cranial perihilar pulmonary infiltrates with increased interstitial changes at the lung bases and was thought to be related to a combination of rheumatoid lung and chronic scarring. His last CT of the chest was on 07/19/2020 showing chronic changes to lower lungs, persistent irregular thick-walled pleural spaces in the posterior lung bases containing fluid and air with adjacent anterior lung with chronic consolidation or atelectasis. On 08/19/2020 patient came into the emergency department from Dr. GENE Carias's office where he was being seen for a regular follow-up appointments. He was noted to have low pulse ox 70s and was sent in to the emergency department for evaluation. He has been having cough with yellow and sometimes blood-tinged sputum, appears amounts, denies any fever, COVID 19 was found to be negative, chest x-ray showed perihilar and basilar infiltrates without significant change from previous chest x-ray on 08/09/2020. Lab data showed leukocytosis with white blood cell count of 19.1, hemoglobin of 12.1, INR 1.5, sodium is 135, potassium is 3.9, chloride is 102, CO2 is 19, creatinine is 1.32, which has actually improved since his discharge from the hospital on 08/11/2020 when he was at 1.84. Lactic acid was elevated at 3.7, patient was given a total of 2 L in fluid boluses, troponin was negative at less than 0.012. Urinalysis showed no evidence of infection. CT chest showed thick-walled pleural cavities posteriorly in the lower lungs with left-sided air-fluid level with left-sided pleural fluid diminished most recent CT from 07/19/2020. There is associated compressive atelectasis and/or chronic consolidation. Persistent as it is lobe fissure, multifocal areas of reticular nodular opacity in the upper lungs remain present with slight nodularity in the left upper lobe. There is a focal consolidation improved from most recent study with some residual areas of scarring. We will emergency department patient became hypotensive with a blood pressure in the 70s, slightly tachycardic remains in sinus mechanism, he is receiving his third liter bolus, his lactic acid did respond and improved he was started on antibiotics in the form of Zosyn and vancomycin The patient is seen today August 20 2020 in the intensive care unit. He is currently sitting up in a chair at the bedside. Awake and alert in no acute distress. Maintaining O2 saturations in the 90s on 2 L/m per nasal cannula. He did require a small dose of norepinephrine currently on 0.05 mcg/kg/m. He has lactated Ringer's at 100 MLS per hour. He remains on vancomycin and cefepime. Chest x-ray continues to show the left lower lobe effusion. White count 11.7. Hemoglobin 9.7. Sodium 135. Potassium 3.6. Creatinine 1.00. Blood cultures reveal no growth to date. Reevaluated today on 08/21/2020, remains in the ICU, still on norepinephrine at 0.04 mcg/kg/m. On LR at 1 25 mL per hour. On vancomycin and cefepime empirically, blood pressure remains marginal, went ahead and recommended Solu-Cortef 100 mg IV push every 8 hours and hopefully will be able to discontinue norepinephrine today. His IV fluid is cut down to KVO. Given 20 mg of Lasix IV push, and I have recommended that we monitor the patient in the ICU for the next 24 hours. Chest x-ray is basically the same, continues to show ch ronic finding, difficult to exclude underlying pneumonia/empyema. CT of the chest on admission was also reviewed, difficult to rule out underlying empyema. Clinically the patient is feeling better except for generally weak. WBC count is 12.5 hemoglobin is 9.9. Normal renal profile is normal blood cultures are negative so far. Sputum cultures are also negative so far. On 08/22/2020 patient seen in follow-up in the intensive care unit, he is awake and alert, oriented 3, sitting up in the recliner, currently on 2 L of oxygen his pulse ox is 95-100%, his been afebrile, hemodynamically he is stable, he is not on any vasopressor support. His lactate Ringer's running at 20 ML per hour, antibiotics include cefepime and vancomycin, blood pressure has been stable, so far blood and sputum cultures are negative, he denies chest pain, his breathing is comfortable. Today's labs have been reviewed, showing white blood cell count trending down, 10.2 today, hemoglobin is 8.8, electrolytes and renal profile are unremarkable. Serum cortisol level came back at 3, patient continues on stress doses of hydrocortisone 100 mg every 8 hours. Patient has not been stable, we'll consult interventional radiology for ultrasound-guided left thoracentesis On 08/23/2020 patient seen in follow-up in the intensive care unit, he is calm and comfortable, awake and alert, sitting up in the recliner, currently on room air with a pulse ox of 93-94%, his been afebrile, hemodynamically he is been stable, he is on IV LR at 20 ML per hour, no other drips. He is on cefepime and vancomycin for antibiotic coverage, yesterday he underwent left thoracentesis with removal of 43 mL of pleural fluid which was sent for cultures. Tolerated procedure well. His pleural fluid analysis revealed total fluid protein of 1.3 g, and fluid LDH of greater than 4500 consistent with exudative fluid. His microbiology data has been reviewed showing Aspergillus fumigate is in the sputum, his pleural fluid cultures are pending at this time, the cultures have shown no growth, hemodynamically has been stable, he is breathing easier, he still has cough mostly in the morning and the amount of secretions his bringing up is decreasing in amount. Lung sounds revealed a few scattered wheezes, and a few rhonchi at bilateral bases. Is tolerating oral intake. No abdominal pain, no nausea or vomiting, today's labs have been reviewed, white blood cell count is 11.2, hemoglobin is 9.1, sodium is 137, potassium is 4.0, chloride is 109, BUN is 15, creatinine 0.80. No acute events overnight. He is working on incentive spirometer, he is achieving 1000 today On 08/24/2020 patient seen in follow-up on medical surgical floor. He is awake and alert, in no acute distress, breathing comfortably, denies any chest pain, room air pulse ox is 94%, no fever or chills, today's chest x-ray shows left basilar loculated pneumothorax, stable in appearance, bilateral lung infiltrates. His pleural fluid cultures so far showing Aspergillus species, as does his sputum culture. Blood culture show no growth. The cervix is follow ing, current antibiotic coverage includes cefepime, vancomycin has been discontinued, she received 1 dose of IV Lasix per nephrology. He has produced 2500 in urine output, and he is in -1.6 L over the last 24 hours, however he still has significant lower extremity edema. The patient is seen today 08/25/2020 in follow-up in the intensive care unit. He was transferred here earlier this morning after developing atrial fibrillation/flutter with a rapid ventricular response. He was initiated on C ardizem at 5 mg per hour. He has 0.9 normal saline at 20 ML's per hour. He is currently awake and alert in no acute distress. No worsening shortness of breath, cough or congestion. No chest pain or palpitations. He sitting up in a chair at the bedside. Maintaining O2 saturations in the 90s on 2 L/m per nasal cannula. Chest x-ray does reveal loculated posterior basilar pneumothoraces, stable from previous exam. There is diffuse increased lung markings. Correlate for pneumonia and atelectasis. Pleural fluid cultures is positive for Aspergillus species. White count 10.9. Hemoglobin 8.8. Sodium 139. Potassium 3.4. Creatinine 0.89. He remains on bronchodilators, IV diuretics, IV Solu- Cortef. Continued on voriconazole. The patient is seen today 08/27/2020 in follow-up on the selective care unit. He is currently sitting up in a recliner at the bedside. Awake and alert in no acute distress. He is currently on room air. LR at 20 miles per hour. Heparin drip per weight base protocol. White count 19.0. Hemoglobin 9.1. Sodium 142. Potassium 3.6. Creatinine 0.81. He remains on voriconazole. Objective - Vital Signs Vital signs: Vital Signs Temp 98.7 F 08/27/20 12:00 Pulse 81 08/27/20 12:00 Resp 18 08/27/20 12:00 BP 93/67 08/27/20 12:00 Pulse Ox 94 L 08/27/20 12:00 Intake & Output 08/26/20 08/27/20 08/27/20 18:59 06:59 18:59 Intake Total 113.59 467.532 600.041 Output Total 5660 247 8988 Balance -1236.41 267.532 -399.959 Weight 100.1 kg Intake: Intake, IV Titration 113.59 227.532 124.041 Amount Heparin Sod,Pork in 0.45% 227.532 124.041 NaCl 25,000 unit In 0.45 % NaCl 1 250ml.bag @ 16 UNITS/KG/HR 16.112 mls/hr IV .[id number] [facility] Rx#: [id number] Heparin Sod,Pork in 0.45% 113.59 NaCl 25,000 unit In 0.45 % NaCl 1 250ml.bag @ 9.93 UNITS/KG/HR 10 mls/hr IV .Q24H [facility] Rx#:[id number] Oral 240 476 Output: Urine 6569 214 [id number] Other: Voiding Method Toilet Toilet Toilet Urinal Urinal Urinal # Voids 1 # Bowel Movements 1 - Exam GENERAL EXAM: Alert, very pleasant 60-year-old gentleman, on 2 L nasal cannula, comfortable in no apparent distress. HEAD: Normocephalic. EYES: Normal reaction of pupils, equal size. NOSE: Clear with pink turbinates. THROAT: No erythema or exudates. NECK: No masses, no JVD. CHEST: No chest wall deformity. LUNGS: Equal air entry with few scattered rhonchi, crackles in the posterior bases. CVS: S1 and S2 normal with no audible murmur, irregular rhythm. Tachycardic. ABDOMEN: No hepatosplenomegaly, normal bowel sounds, no guarding or rigidity. SPINE: No scoliosis or deformity SKIN: No rashes CENTRAL NERVOUS SYSTEM: No focal deficits, tone is normal in all 4 extremities. EXTREMITIES: There is 2+ peripheral edema. No clubbing, no cyanosis. Peripheral pulses are intact. - Labs CBC & Chem 7: 08/27/20 02:15 08/27/20 02:15 Labs: Abnormal Lab Results - Last 24 Hours (Table) 08/26/20 08/27/20 08/27/20 Range/Units 20:40 02:15 02:15 WBC 19.0 H (3.8-10.6) k/uL RBC 3.46 L (4.30-5.90) m/uL Hgb 9.2 L (13.0-17.5) gm/dL Hct 30.2 L (39.0-53.0) % MCHC 30.6 L (31.0-37.0) g/dL RDW 18.4 H (11.5-15.5) % Neutrophils # (Manual) 15.90 H (1.3-7.7) k/uL Metamyelocytes # (Man) 0.95 H (0) k/uL Myelocytes # (Manual) 0.19 H (0) k/uL APTT 41.5 H (22.0-30.0) sec BUN (9-20) mg/dL Glucose (74-99) mg/dL POC Glucose (mg/dL) 125 H (75-99) mg/dL 08/27/20 08/27/20 08/27/20 Range/Units 02:15 05:44 08:53 WBC (3.8-10.6) k/uL RBC (4.30-5.90) m/uL Hgb (13.0-17.5) gm/dL Hct (39.0-53.0) % MCHC (31.0-37.0) g/dL RDW (11.5-15.5) % Neutrophils # (Manual) (1.3-7.7) k/uL Metamyelocytes # (Man) (0) k/uL Myelocytes # (Manual) (0) k/uL APTT 124.7 H* (22.0-30.0) sec BUN 31 H (9-20) mg/dL Glucose 149 H (74-99) mg/dL POC Glucose (mg/dL) 116 H (75-99) mg/dL 08/27/20 Range/Units 11:50 WBC (3.8-10.6) k/uL RBC (4.30-5.90) m/uL Hgb (13.0-17.5) gm/dL Hct (39.0-53.0) % MCHC (31.0-37.0) g/dL RDW (11.5-15.5) % Neutrophils # (Manual) (1.3-7.7) k/uL Metamyelocytes # (Man) (0) k/uL Myelocytes # (Manual) (0) k/uL APTT (22.0-30.0) sec BUN (9-20) mg/dL Glucose (74-99) mg/dL POC Glucose (mg/dL) 135 H (75-99) mg/dL Assessment and Plan Assessment: 1 Acute hypoxic respiratory failure secondary to sepsis, septic shock, related to pneumonia, with chronic loculated effusions, possible empyema. Cultures positive for Aspergillus species. 2 Bilateral hydropneumothorax, possible empyema, status post ultrasound-guided left-sided thoracentesis on 08/22/2020 with 45 ML's of cloudy white fluid removed, showing Aspergillus. Remains on voriconazole. 3 Recent admission for hypotension, dehydration secondary to nausea, vomiting, acute kidney injury with diarrhea. 4 Recent pulmonary infections with history of streptococcal pneumonia, empyema requiring chest tube placement in January 2020. 5 Chronic loculated pneumothoraces, posterior, with air-fluid seen on CAT scan imaging on the chest. Possibility of trapped lung, chronic scarring and possibility of empyema. 6 History of rheumatoid arthritis and rheumatoid lung disease. On Arava 7 Recent history of acute kidney injury 8 Hypertension 9 Hypothyroidism 10 Previous history of DVT. 11 New-onset atrial fibrillation/flutter with rapid ventricular response currently on a Cardizem drip Plan: The patient was seen and evaluated by Dr. Dutton. Continue with the current treatment plan Pleurx catheter to be placed on 08/29/2020 The plan is for installation of amphotericin Cardiology considering cardioversion Continue heparin drip for now We'll continue to follow I, the cosigning physician, performed a history & physical examination of the patient. Lungs sounds bilateral scattered rhonchi and crackles in the bilateral bases. Maintaining good O2 saturations in the 90s on 2 L/m per nasal cannula. I discussed the assessment and plan of care with my nurse practitioner, Morena Cobb. I attest to the above note as dictated by her.
[2020-08-27] MEDS: AMIODARONE 450 MG in DEXTROSE 5% IN WATER 250 ML IV SCH ×2 (14:35)
--- NOTE | 2020-08-27 14:52 | P.PN ---
Subjective Progress Note Date: 08/27/20 The patient was interviewed and examined sitting up in the recliner chair. He states he did have some shortness of breath ambulating from the bed. He also feels occasional palpitations. No chest pain or chest pressure. No dizziness or lightheadedness. Positive for fatigue. The patient is concerned about not proceeding with cardioversion as he was told his heart rate must be well controlled in order to proceed with chest tube placement. Patient was reassured that he may proceed with our recommendations. If we perform the cardioversion prior to his chest tube placement, he will likely convert back post procedure. GENERAL: Well-appearing, well-nourished and in no acute distress. NECK: Supple without JVD or thyromegaly. LUNGS: Breath sounds rhonchorous to auscultation bilaterally. Respiration equal and unlabored. No wheezes or crackles. HEART: Regular rate and rhythm without murmurs, rubs or gallops. S1 and S2 heard. Tachycardic. EXTREMITIES: Normal range of motion, no edema. No clubbing or cyanosis. Peripheral pulses intact and strong. VITALS: Blood pressure 112/72, heart rate 118, respiratory rate 16, SpO2 95% on 2 L nasal cannula TELEMETRY: Atrial flutter with RVR. Heart rates in the 140s. LABS: WBC 19.0, hemoglobin 9.2, hematocrit 30.2, sodium 142, potassium 3.6, BUN 31, creatinine 0.81 IMPRESSION: #1 atrial flutter with RVR, on IV heparin #2 fungal pneumonia with empyema #3 hypertension #4 hyperlipidemia #5 leukocytosis #6 anemia PLAN: Patient will be proceeding with chest tube placement by CV surgery on Saturday. Consider cardioversion after chest tube placement Continue to maximize beta blockers as tolerated Further recommendations based upon clinical course The patient has been seen and evaluated. Plan of care has been reviewed and agreed upon by Dr Prieto. Objective - Vital Signs Vital signs: Vital Signs Temp 98.7 F 08/27/20 12:00 Pulse 81 08/27/20 12:00 Resp 18 08/27/20 12:00 BP 93/67 08/27/20 12:00 Pulse Ox 94 L 08/27/20 12:00 Intake & Output 08/26/20 08/27/20 08/27/20 18:59 06:59 18:59 Intake Total 113.59 467.532 600.041 Output Total 5422 285 9238 Balance -1236.41 267.532 -399.959 Weight 100.1 kg Intake: Intake, IV Titration 113.59 227.532 124.041 Amount Heparin Sod,Pork in 0.45% 227.532 124.041 NaCl 25,000 unit In 0.45 % NaCl 1 250ml.bag @ 16 UNITS/KG/HR 16.112 mls/hr IV .[id number] [facility] Rx#: [id number] Heparin Sod,Pork in 0.45% 113.59 NaCl 25,000 unit In 0.45 % NaCl 1 250ml.bag @ 9.93 UNITS/KG/HR 10 mls/hr IV .Q24H [facility] Rx#:[id number] Oral 240 476 Output: Urine 2745 369 4247 Other: Voiding Method Toilet Toilet Toilet Urinal Urinal Urinal # Voids 1 # Bowel Movements 1 - Labs CBC & Chem 7: 08/27/20 02:15 08/27/20 02:15 Labs: Abnormal Lab Results - Last 24 Hours (Table) 08/26/20 08/27/20 08/27/20 Range/Units 20:40 02:15 02:15 WBC 19.0 H (3.8-10.6) k/uL RBC 3.46 L (4.30-5.90) m/uL Hgb 9.2 L (13.0-17.5) gm/dL Hct 30.2 L (39.0-53.0) % MCHC 30.6 L (31.0-37.0) g/dL RDW 18.4 H (11.5-15.5) % Neutrophils # (Manual) 15.90 H (1.3-7.7) k/uL Metamyelocytes # (Man) 0.95 H (0) k/uL Myelocytes # (Manual) 0.19 H (0) k/uL APTT 41.5 H (22.0-30.0) sec BUN (9-20) mg/dL Glucose (74-99) mg/dL POC Glucose (mg/dL) 125 H (75-99) mg/dL 08/27/20 08/27/20 08/27/20 Range/Units 02:15 05:44 08:53 WBC (3.8-10.6) k/uL RBC (4.30-5.90) m/uL Hgb (13.0-17.5) gm/dL Hct (39.0-53.0) % MCHC (31.0-37.0) g/dL RDW (11.5-15.5) % Neutrophils # (Manual) (1.3-7.7) k/uL Metamyelocytes # (Man) (0) k/uL Myelocytes # (Manual) (0) k/uL APTT 124.7 H* (22.0-30.0) sec BUN 31 H (9-20) mg/dL Glucose 149 H (74-99) mg/dL POC Glucose (mg/dL) 116 H (75-99) mg/dL 08/27/20 Range/Units 11:50 WBC (3.8-10.6) k/uL RBC (4.30-5.90) m/uL Hgb (13.0-17.5) gm/dL Hct (39.0-53.0) % MCHC (31.0-37.0) g/dL RDW (11.5-15.5) % Neutrophils # (Manual) (1.3-7.7) k/uL Metamyelocytes # (Man) (0) k/uL Myelocytes # (Manual) (0) k/uL APTT (22.0-30.0) sec BUN (9-20) mg/dL Glucose (74-99) mg/dL POC Glucose (mg/dL) 135 H (75-99) mg/dL
[2020-08-27] MEDS: METOPROLOL TARTRATE 25 MG TAB PO SCH ×2 (16:09→19:35)
[2020-08-27 17:12] LABS: Glucose,Whole Blood 131 mg/dL (75-99)
--- NOTE | 2020-08-27 18:50 | PN ---
PROGRESS NOTE DATE OF SERVICE: 08/27/2020 REASON FOR FOLLOW UP: Left-sided empyema. INTERVAL HISTORY: Patient is currently afebrile. Patient is breathing slightly comfortably. The patient denies having any chest pain or shortness of breath. Minimal cough. No nausea, no vomiting. No abdominal pain or diarrhea. PHYSICAL EXAMINATION: Blood pressure 112/72 with a pulse of 81, temperature 98.7. He is 94% on 2 L nasal cannula. General description is a middle-aged male up in the chair in no distress. Respiratory system: Unlabored breathing, decreased breath sounds at bases, no wheeze. Heart S1, S2. Regular rate and rhythm. Abdomen soft, no tenderness. LABS: Hemoglobin is 9.8, white count 19,000. BUN of 31, creatinine 0.81. DIAGNOSTIC IMPRESSION AND PLAN: 1. Patient with chronic left lung empyema with CT-guided drainage and culture positive for Aspergillus. The sputum was also positive for the same pathogen. Minimal thoracotomy on Saturday. The patient is covered with voriconazole. 2. Elevated white count, more likely steroid effect and will be monitored closely. MMODL / IJN: [id number] /
[2020-08-27] MEDS: LACTATED RINGERS 1,000 ML IV SCH (19:21)
--- NOTE | 2020-08-27 19:31 | PN ---
PROGRESS NOTE I am covering for Dr. Marie. HISTORY OF PRESENT ILLNESS: This 60-year-old gentleman who was admitted with acute hypoxic respiratory failure secondary to loculated left-sided pleural effusion and fungal empyema, also had recurrent pneumonia. The patient is on antifungal medications and chest tube drainage and PleurX catheter placement was contemplated by cardiovascular surgery on Saturday. The patient has bilateral pneumonia and bilateral hydropneumothorax also. The patient has also had acute hypoxic respiratory failure and sepsis as well. The patient had multiple episodes of pneumonia and empyema as well. PAST MEDICAL HISTORY: Reviewed. REVIEW OF SYSTEMS: Cardiovascular: No angina. Respiration as mentioned earlier. GI: As mentioned earlier. : No dysuria. CURRENT MEDICATIONS: Reviewed and include: Tylenol, [place], Cordarone, vitamin C, aspirin, heparin, Synthroid. PHYSICAL EXAMINATION: Patient is alert, oriented times three. Pulse is 102. Blood pressure 101/60, respirations 16, temperature 97.9, pulse ox 98% on 3 L. HEENT is conjunctivae normal. NECK: No JVD. CARDIOVASCULAR: S1, S2. RESPIRATORY SYSTEM: Breath sounds diminished at the bases. Scattered rhonchi. ABDOMEN: Soft, nontender. LEGS are no edema, no swelling. NERVOUS SYSTEM: No focal deficits. LABS: WBC 19 and BUN is 31. Cultures Aspergillus fumigatus. ASSESSMENT: 1. Acute bilateral pneumonia with left-sided pleural effusion, fungal empyema with recurrent pneumonia. 2. Lactic acidosis. 3. Sepsis, septic shock. 4. Acute kidney injury. 5. Leukocytosis. 6. Atrial flutter with rapid ventricular rate. 7. History of rheumatoid arthritis and rheumatoid lung. 8. History of empyema with Streptococcus. 9. Hypertension. 10.Hypertensive cardiovascular disease. 11.Hypothyroidism. 12.Deep vein thrombosis prophylaxis. 13.Gastrointestinal prophylaxis. 14.Increased WBC. 15.Anemia, normocytic anemia of chronic disease. RECOMMENDATIONS AND DISCUSSION: Recommend to continue current medications, management and symptomatic treatment. Otherwise at this time, the patient is on IV heparin. Cardiology is following the patient closely. The patient is on comfort measures. Multiple consultants are following the patient closely. The white count is still elevated. The most recent chest x-ray which was reviewed personally by me done a couple days ago showed significant bilateral pneumonic process and effusions. Chest CTA done 08/19/[address] evidence of pulmonary embolism and chronic parenchymal changes also noted from rheumatoid lung. We will continue to monitor. Further recommendations to follow. MMODL / IJN: [id number] /
[2020-08-27] MEDS: ASCORBIC ACID 500 MG TAB PO SCH (19:35)
[2020-08-27] MEDS: ASPIRIN 81 MG PO SCH (19:35)
[2020-08-27] MEDS: CHOLECALCIFEROL 25 MCG (1000 IU) TABLET PO SCH (19:35)
[2020-08-27 20:16] LABS: Glucose,Whole Blood 131 mg/dL (75-99)
[2020-08-27] MEDS: HYDROcodone/APAP 5-325MG 1 EACH TAB PO PRN (23:07)
[2020-08-28] MEDS: PANTOPRAZOLE 40 MG TABLET PO SCH (05:17)
[2020-08-28] MEDS: LEVOTHYROXINE 75 MCG TAB PO SCH (05:17)
[2020-08-28 06:24] LABS: Glucose,Whole Blood 97 mg/dL (75-99)
--- NOTE | 2020-08-28 07:24 | XR ---
EXAMINATION TYPE: XR chest 2V DATE OF EXAM: 08/28/2020 COMPARISON: 08/25/2020 HISTORY: Shortness of breath TECHNIQUE: Frontal and lateral views of the chest are obtained. FINDINGS: Scattered senescent parenchymal changes noted. Hyperinflation compatible with COPD. Bilateral airspace infiltrates right much greater than left persist without significant interval phillips ge. Heart size is stable. Mediastinal structures are stable and grossly unremarkable. No evidence for hilar prominence. Degenerative changes dorsal spine. IMPRESSION: 1. Bilateral airspace infiltrates right much greater than left persist without significant interval c hange.
[2020-08-28 07:58] LABS: Anisocytosis Slight; HCT 32.9 % (39.0-53.0); HGB 10.1 gm/dL (13.0-17.5); Hypochromasia Marked; MCH 27.2 pg (25.0-35.0); MCHC 30.8 g/dL (31.0-37.0); MCV 88.3 fL (80.0-100.0); Mean Platelet Volume 8.5; Platelet Count 339 k/uL (150-450); RBC 3.73 m/uL (4.30-5.90); RDW 18.5 % (11.5-15.5); WBC 18.5 k/uL (3.8-10.6)
[2020-08-28 08:02] LABS: African American GFR (CKD) >90 (>60 ml/min/1.73 sqM); Anion Gap 8 mmol/L; Blood Urea Nitrogen 31 mg/dL (9-20); Calcium 8.6 mg/dL (8.4-10.2); Carbon Dioxide 27 mmol/L (22-30); Chloride 106 mmol/L (98-107); Glucose 92 mg/dL (74-99); Non-African American GFR(CKD) >90 (>60 ml/min/1.73 sqM); Potassium 3.3 mmol/L (3.5-5.1); Sodium 141 mmol/L (137-145)
[2020-08-28] MEDS: AMIODARONE 200 MG TAB PO SCH ×2 (08:09→21:24)
[2020-08-28] MEDS: FUROSEMIDE 10 MG/ML 4 ML VIAL IV SCH (08:10)
[2020-08-28] MEDS: TRIAMCINOLONE 0.1% CREAM 80 GM TUBE TOPICAL SCH ×2 (08:10→21:24)
[2020-08-28] MEDS: HYDROCORTISONE SUCCINATE 100 MG/2 ML VIAL IV SCH ×3 (08:10→23:29)
[2020-08-28] MEDS: METOPROLOL TARTRATE 25 MG TAB PO SCH ×3 (08:10→21:24)
[2020-08-28 08:16] LABS: Nucleated Red Blood Cells 0 /100 WBC (0-0)
[2020-08-28 08:18] LABS: Band Neutrophils % 4 %; Lymphocytes # (M) 3.52 k/uL (1.0-4.8); Metamyelocytes # (M) 0.37 k/uL (0); Metamyelocytes % 2 %; Monocytes # (M) 0.37 k/uL (0-1.0); Neutrophils % (M) 73 %; Total Cells Counted 100
[2020-08-28 08:19] LABS: Polychromasia Present
[2020-08-28] MEDS ORDERED: Potassium Replacement Protocol 1 EACH MISC MISCELLANE PRN (08:19)
[2020-08-28] MEDS: IPRATROPIUM-ALBUTEROL 3 ML NEB INHALATION SCH ×3 (08:48→20:56)
[2020-08-28] MEDS: VORICONAZOLE 400 MG in SODIUM CHLORIDE 0.9% 250 ML IVPB SCH ×2 (09:19→22:05)
[2020-08-28] MEDS: POTASSIUM CHLORIDE ER 20 MEQ TAB.ER PO SCH ×2 (09:19→11:27)
--- NOTE | 2020-08-28 09:41 | P.PN ---
Subjective Progress Note Date: 08/28/20 Principal diagnosis: Bilateral pneumonia, bilateral hydropneumothorax, possible empyema, sputum culture preliminarily positive for Aspergillus species, acute hypoxic respiratory failure with sepsis on admission. Past medical history significant for multiple admissions for pneumonia with empyema on the left and previous bilateral chest tube placement in December 2019 with cultures positive for strep pneumonia, rheumatoid arthritis with rheumatoid lung, hypertension, hypothyroidism, DVT, previous tobacco dependence, family history of lung cancer, and recent hospitalization for hypotension, dehydration, acute kidney injury requiring dialysis. POD #6 left-sided thoracentesis by interventional radiology. The patient was seen on follow-up today 08/28/2020 at his bedside on the cardiac stepdown unit. Currently sitting up to the bedside chair, is awake, alert and oriented 3. Denies any complaints of pain or shortness of breath at this time. He is complaining of some generalized weakness. Remote telemetry showing atrial flutter heart rate 98 BPM. Continues on amiodarone 200 mg by mouth twice a day, metoprolol 25 mg by mouth 3 times a day and heparin drip per protocol. Preoperative education reinforcement with the patient, questions were answered to the best my ability. Oxygen saturation is 94% on 2 L nasal cannula and he is achieving 0672-4795 mL on his incentive spirometry. Objective - Vital Signs Vital signs: Vital Signs Temp 97.6 F 08/28/20 08:05 Pulse 106 H 08/28/20 08:05 Resp 20 08/28/20 08:05 BP 101/66 08/28/20 08:05 Pulse Ox 94 L 08/28/20 08:05 Intake & Output 08/27/20 08/28/20 08/28/20 18:59 06:59 18:59 Intake Total 1308.041 744.975 429.266 Output Total 1500 300 700 Balance -191.959 444.975 -270.734 Weight 100.7 kg Intake: Intake, IV Titration 124.041 204.975 189.266 Amount Heparin Sod,Pork in 0.45% 124.041 204.975 189.266 NaCl 25,000 unit In 0.45 % NaCl 1 250ml.bag @ 16 UNITS/KG/HR 16.112 mls/hr IV .[id number] [facility] Rx#: [id number] Oral 1184 540 240 Output: Urine 1500 300 700 Other: Voiding Method Toilet Urinal # Voids 1 1 # Bowel Movements 1 - Constitutional General appearance: Present: cooperative, no acute distress, obese - EENT Eyes: Present: normal appearance. Absent: scleral icterus ENT: Present: hearing grossly normal - Neck Details: Neck is supple, no JVD. - Respiratory Details: Lung sounds essentially clear to his bilateral upper lobes, few scattered crackles to his bilateral bases. Respirations are symmetrical and nonlabored. Oxygen saturation are 94% on 2 L nasal cannula. Achieving 1431-9827 mL on his incentive spirometry. - Cardiovascular Details: Irregular rhythm and controlled rate. S1 and S2 present, negative for S3, gallop or murmur. +1 to +2 edema to his bilateral lower extremities. Knee-high BRISA hose and sequential compression devices in place to his bilateral lower extremities. - Gastrointestinal Gastrointestinal Comment(s): Abdomen is soft, nontender and nondistended. Active bowel sounds present in all 4 abdominal quadrants. No guarding or rigidity. Tolerating oral intake. - Genitourinary Genitourinary Comment(s): Continues to void. - Integumentary Integumentary Comment(s): Skin is warm and dry. No clubbing or cyanosis is present. - Neurologic Neurologic: Present: CNII-XII intact. Absent: focal deficits - Musculoskeletal Musculoskeletal: Present: gait normal, generalized weakness, strength equal bilaterally - Psychiatric Psychiatric: Present: A&O x's 3, appropriate affect, intact judgment & insight - Allied health notes Allied health notes reviewed: nursing - Labs CBC & Chem 7: 08/28/20 07:03 08/28/20 07:03 Labs: Abnormal Lab Results - Last 24 Hours (Table) 08/27/20 08/27/20 08/27/20 Range/Units 08:53 11:50 17:06 WBC (3.8-10.6) k/uL RBC (4.30-5.90) m/uL Hgb (13.0-17.5) gm/dL Hct (39.0-53.0) % MCHC (31.0-37.0) g/dL RDW (11.5-15.5) % Neutrophils # (Manual) (1.3-7.7) k/uL Metamyelocytes # (Man) (0) k/uL APTT 124.7 H* (22.0-30.0) sec Potassium (3.5-5.1) mmol/L BUN (9-20) mg/dL POC Glucose (mg/dL) 135 H 131 H (75-99) mg/dL 08/27/20 08/27/20 08/28/20 Range/Units 18:49 20:15 01:16 WBC (3.8-10.6) k/uL RBC (4.30-5.90) m/uL Hgb (13.0-17.5) gm/dL Hct (39.0-53.0) % MCHC (31.0-37.0) g/dL RDW (11.5-15.5) % Neutrophils # (Manual) (1.3-7.7) k/uL Metamyelocytes # (Man) (0) k/uL APTT 30.9 H 43.5 H (22.0-30.0) sec Potassium (3.5-5.1) mmol/L BUN (9-20) mg/dL POC Glucose (mg/dL) 131 H (75-99) mg/dL 08/28/20 08/28/20 08/28/20 Range/Units 07:03 07:03 07:03 WBC 18.5 H (3.8-10.6) k/uL RBC 3.73 L (4.30-5.90) m/uL Hgb 10.1 L (13.0-17.5) gm/dL Hct 32.9 L (39.0-53.0) % MCHC 30.8 L (31.0-37.0) g/dL RDW 18.5 H (11.5-15.5) % Neutrophils # (Manual) 14.20 H (1.3-7.7) k/uL Metamyelocytes # (Man) 0.37 H (0) k/uL APTT 49.5 H (22.0-30.0) sec Potassium 3.3 L (3.5-5.1) mmol/L BUN 31 H (9-20) mg/dL POC Glucose (mg/dL) (75-99) mg/dL - Imaging and Cardiology Chest x-ray: report reviewed, image reviewed Assessment and Plan Assessment: 1. Bilateral pneumonia, bilateral hydropneumothorax, possible empyema, sputum culture preliminarily positive for Aspergillus species, status post left-sided thoracentesis 2. Acute hypoxic respiratory failure with sepsis on admission 3. Multiple admissions for pneumonia with empyema on the left and previous bilateral chest tube placement in December 2019 with cultures positive for strep pneumonia 4. Rheumatoid arthritis with rheumatoid lung 5. Hypertension, currently hypotensive, requiring pressors on admission 6. Hypothyroidism 7. History of DVT 8. Previous tobacco dependence 9. Family history of lung cancer 10. Recent hospitalization for hypotension, dehydration, acute kidney injury requiring dialysis 11. New-onset atrial fibrillation/atrial flutter with rapid ventricular response, currently on amiodarone by mouth and metoprolol tartrate Plan: 1. Pleural fluid culture and sputum culture shows Aspergillus Fumigatus. 2. Continue to follow chest x-rays. 3. Encourage incentive spirometry 10 times every hour while awake. Bronchodilators per pulmonary for/critical care medicine. 4. Currently on Vfend managed by infectious disease. Amphotericin B pleural irrigation and available for on-call to the operating room for 08/29/2020. 5. Increase activity as tolerated. 6. Medical management and other comorbidities per primary care service. 7. The patient is scheduled for a left Pleurx catheter placement tomorrow 08/29/2020 to be performed by Dr. Oswaldo Dubois. 8. Preoperative teaching reinforcement the patient. 9. More recommendations to follow based on patient's clinical course. Time with Patient: Greater than 30
[2020-08-28 11:27] LABS: Glucose,Whole Blood 113 mg/dL (75-99)
[2020-08-28] MEDS: HEPARIN SOD,PORK IN 0.45% NACL 25,000 UNIT in 0.45% NACL 1 250ML.BAG IV SCH ×2 (11:28→21:30)
--- NOTE | 2020-08-28 12:54 | P.PN ---
Subjective Progress Note Date: 08/28/20 60-year-old white male patient, with past medical history of rheumatoid arthritis, previous history of rheumatoid lung disease on Arava, previous episodes of pneumonia and history of loculated empyema requiring chest tube placement back in January 2020 with pleural fluid cultures positive for streptococcal pneumonia. Other medical history includes hypertension, hypothyroidism and previous history of DVT. Patient had a recent hospitalization from August 08 through 08/11/2020 hypotension, dehydration re lated to nausea vomiting diarrhea, acute kidney injury. Patient received antibiotics in the form of Zosyn and Levaquin for possibility of pneumonia, he is chest x-ray showed cranial perihilar pulmonary infiltrates with increased interstitial changes at the lung bases and was thought to be related to a combination of rheumatoid lung and chronic scarring. His last CT of the chest was on 07/19/2020 showing chronic changes to lower lungs, persistent irregular thick-walled pleural spaces in the posterior lung bases containing fluid and air with adjacent anterior lung with chronic consolidation or atelectasis. On 08/19/2020 patient came into the emergency department from Dr. GENE Carias's office where he was being seen for a regular follow-up appointments. He was noted to have low pulse ox 70s and was sent in to the emergency department for evaluation. He has been having cough with yellow and sometimes blood-tinged sputum, appears amounts, denies any fever, COVID 19 was found to be negative, chest x-ray showed perihilar and basilar infiltrates without significant change from previous chest x-ray on 08/09/2020. Lab data showed leukocytosis with white blood cell count of 19.1, hemoglobin of 12.1, INR 1.5, sodium is 135, potassium is 3.9, chloride is 102, CO2 is 19, creatinine is 1.32, which has actually improved since his discharge from the hospital on 08/11/2020 when he was at 1.84. Lactic acid was elevated at 3.7, patient was given a total of 2 L in fluid boluses, troponin was negative at less than 0.012. Urinalysis showed no evidence of infection. CT chest showed thick-walled pleural cavities posteriorly in the lower lungs with left-sided air-fluid level with left-sided pleural fluid diminished most recent CT from 07/19/2020. There is associated compressive atelectasis and/or chronic consolidation. Persistent as it is lobe fissure, multifocal areas of reticular nodular opacity in the upper lungs remain present with slight nodularity in the left upper lobe. There is a focal consolidation improved from most recent study with some residual areas of scarring. We will emergency department patient became hypotensive with a blood pressure in the 70s, slightly tachycardic remains in sinus mechanism, he is receiving his third liter bolus, his lactic acid did respond and improved he was started on antibiotics in the form of Zosyn and vancomycin The patient is seen today August 20 2020 in the intensive care unit. He is currently sitting up in a chair at the bedside. Awake and alert in no acute distress. Maintaining O2 saturations in the 90s on 2 L/m per nasal cannula. He did require a small dose of norepinephrine currently on 0.05 mcg/kg/m. He has lactated Ringer's at 100 MLS per hour. He remains on vancomycin and cefepime. Chest x-ray continues to show the left lower lobe effusion. White count 11.7. Hemoglobin 9.7. Sodium 135. Potassium 3.6. Creatinine 1.00. Blood cultures reveal no growth to date. Reevaluated today on 08/21/2020, remains in the ICU, still on norepinephrine at 0.04 mcg/kg/m. On LR at 1 25 mL per hour. On vancomycin and cefepime empirically, blood pressure remains marginal, went ahead and recommended Solu-Cortef 100 mg IV push every 8 hours and hopefully will be able to discontinue norepinephrine today. His IV fluid is cut down to KVO. Given 20 mg of Lasix IV push, and I have recommended that we monitor the patient in the ICU for the next 24 hours. Chest x-ray is basically the same, continues to show ch ronic finding, difficult to exclude underlying pneumonia/empyema. CT of the chest on admission was also reviewed, difficult to rule out underlying empyema. Clinically the patient is feeling better except for generally weak. WBC count is 12.5 hemoglobin is 9.9. Normal renal profile is normal blood cultures are negative so far. Sputum cultures are also negative so far. On 08/22/2020 patient seen in follow-up in the intensive care unit, he is awake and alert, oriented 3, sitting up in the recliner, currently on 2 L of oxygen his pulse ox is 95-100%, his been afebrile, hemodynamically he is stable, he is not on any vasopressor support. His lactate Ringer's running at 20 ML per hour, antibiotics include cefepime and vancomycin, blood pressure has been stable, so far blood and sputum cultures are negative, he denies chest pain, his breathing is comfortable. Today's labs have been reviewed, showing white blood cell count trending down, 10.2 today, hemoglobin is 8.8, electrolytes and renal profile are unremarkable. Serum cortisol level came back at 3, patient continues on stress doses of hydrocortisone 100 mg every 8 hours. Patient has not been stable, we'll consult interventional radiology for ultrasound-guided left thoracentesis On 08/23/2020 patient seen in follow-up in the intensive care unit, he is calm and comfortable, awake and alert, sitting up in the recliner, currently on room air with a pulse ox of 93-94%, his been afebrile, hemodynamically he is been stable, he is on IV LR at 20 ML per hour, no other drips. He is on cefepime and vancomycin for antibiotic coverage, yesterday he underwent left thoracentesis with removal of 43 mL of pleural fluid which was sent for cultures. Tolerated procedure well. His pleural fluid analysis revealed total fluid protein of 1.3 g, and fluid LDH of greater than 4500 consistent with exudative fluid. His microbiology data has been reviewed showing Aspergillus fumigate is in the sputum, his pleural fluid cultures are pending at this time, the cultures have shown no growth, hemodynamically has been stable, he is breathing easier, he still has cough mostly in the morning and the amount of secretions his bringing up is decreasing in amount. Lung sounds revealed a few scattered wheezes, and a few rhonchi at bilateral bases. Is tolerating oral intake. No abdominal pain, no nausea or vomiting, today's labs have been reviewed, white blood cell count is 11.2, hemoglobin is 9.1, sodium is 137, potassium is 4.0, chloride is 109, BUN is 15, creatinine 0.80. No acute events overnight. He is working on incentive spirometer, he is achieving 1000 today On 08/24/2020 patient seen in follow-up on medical surgical floor. He is awake and alert, in no acute distress, breathing comfortably, denies any chest pain, room air pulse ox is 94%, no fever or chills, today's chest x-ray shows left basilar loculated pneumothorax, stable in appearance, bilateral lung infiltrates. His pleural fluid cultures so far showing Aspergillus species, as does his sputum culture. Blood culture show no growth. The cervix is follow ing, current antibiotic coverage includes cefepime, vancomycin has been discontinued, she received 1 dose of IV Lasix per nephrology. He has produced 2500 in urine output, and he is in -1.6 L over the last 24 hours, however he still has significant lower extremity edema. The patient is seen today 08/25/2020 in follow-up in the intensive care unit. He was transferred here earlier this morning after developing atrial fibrillation/flutter with a rapid ventricular response. He was initiated on C ardizem at 5 mg per hour. He has 0.9 normal saline at 20 ML's per hour. He is currently awake and alert in no acute distress. No worsening shortness of breath, cough or congestion. No chest pain or palpitations. He sitting up in a chair at the bedside. Maintaining O2 saturations in the 90s on 2 L/m per nasal cannula. Chest x-ray does reveal loculated posterior basilar pneumothoraces, stable from previous exam. There is diffuse increased lung markings. Correlate for pneumonia and atelectasis. Pleural fluid cultures is positive for Aspergillus species. White count 10.9. Hemoglobin 8.8. Sodium 139. Potassium 3.4. Creatinine 0.89. He remains on bronchodilators, IV diuretics, IV Solu- Cortef. Continued on voriconazole. The patient is seen today 08/27/2020 in follow-up on the selective care unit. He is currently sitting up in a recliner at the bedside. Awake and alert in no acute distress. He is currently on room air. LR at 20 miles per hour. Heparin drip per weight base protocol. White count 19.0. Hemoglobin 9.1. Sodium 142. Potassium 3.6. Creatinine 0.81. He remains on voriconazole. The patient is seen today 08/28/2020 in follow-up on the selective care unit. He is currently sitting up in a chair at the bedside. No worsening shortness of breath, cough or congestion. Chest x-ray reveals bilateral airspace infiltrates right greater than left without significant improvement. Sputum and pleural fluid cultures were both positive for Aspergillus fumigatus. He remains on voriconazole. White count 18.5. Hemoglobin 10.1. Sodium 141. Potassium 3.3. Creatinine 0.8. Atrial fibrillation. He remains on a heparin drip. Plan is for left-sided Pleurx catheter placement in a.m. Objective - Vital Signs Vital signs: Vital Signs Temp 97.6 F 08/28/20 11:37 Pulse 105 H 08/28/20 11:37 Resp 20 08/28/20 11:37 BP 91/64 08/28/20 11:37 Pulse Ox 95 08/28/20 11:37 Intake & Output 08/27/20 08/28/20 08/28/20 18:59 06:59 18:59 Intake Total 1308.041 744.975 490.000 Output Total 1183 790 9273 Balance -191.959 444.975 -1385.000 Weight 100.7 kg Intake: Intake, IV Titration 124.041 204.975 250.000 Amount Heparin Sod,Pork in 0.45% 124.041 204.975 250.000 NaCl 25,000 unit In 0.45 % NaCl 1 250ml.bag @ 16 UNITS/KG/HR 16.112 mls/hr IV .[id number] [facility] Rx#: [id number] Oral [id number] [id number] 240 Output: Urine 6680 [id number] Other: Voiding Method Toilet Toilet Urinal Urinal # Voids 1 1 # Bowel Movements 1 - Exam GENERAL EXAM: Alert, very pleasant 60-year-old gentleman, on 2 L nasal cannula, comfortable in no apparent distress. HEAD: Normocephalic. EYES: Normal reaction of pupils, equal size. NOSE: Clear with pink turbinates. THROAT: No erythema or exudates. NECK: No masses, no JVD. CHEST: No chest wall deformity. LUNGS: Equal air entry with few scattered rhonchi, crackles in the posterior bases. CVS: S1 and S2 normal with no audible murmur, irregular rhythm. Tachycardic. ABDOMEN: No hepatosplenomegaly, normal bowel sounds, no guarding or rigidity. SPINE: No scoliosis or deformity SKIN: No rashes CENTRAL NERVOUS SYSTEM: No focal deficits, tone is normal in all 4 extremities. EXTREMITIES: There is 2+ peripheral edema. No clubbing, no cyanosis. Peripheral pulses are intact. - Labs CBC & Chem 7: 08/28/20 07:03 08/28/20 07:03 Labs: Abnormal Lab Results - Last 24 Hours (Table) 08/27/20 08/27/20 08/27/20 Range/Units 08:53 17:06 18:49 WBC (3.8-10.6) k/uL RBC (4.30-5.90) m/uL Hgb (13.0-17.5) gm/dL Hct (39.0-53.0) % MCHC (31.0-37.0) g/dL RDW (11.5-15.5) % Neutrophils # (Manual) (1.3-7.7) k/uL Metamyelocytes # (Man) (0) k/uL APTT 124.7 H* 30.9 H (22.0-30.0) sec Potassium (3.5-5.1) mmol/L BUN (9-20) mg/dL POC Glucose (mg/dL) 131 H (75-99) mg/dL 08/27/20 08/28/20 08/28/20 Range/Units 20:15 01:16 07:03 WBC 18.5 H (3.8-10.6) k/uL RBC 3.73 L (4.30-5.90) m/uL Hgb 10.1 L (13.0-17.5) gm/dL Hct 32.9 L (39.0-53.0) % MCHC 30.8 L (31.0-37.0) g/dL RDW 18.5 H (11.5-15.5) % Neutrophils # (Manual) 14.20 H (1.3-7.7) k/uL Metamyelocytes # (Man) 0.37 H (0) k/uL APTT 43.5 H (22.0-30.0) sec Potassium (3.5-5.1) mmol/L BUN (9-20) mg/dL POC Glucose (mg/dL) 131 H (75-99) mg/dL 08/28/20 08/28/20 08/28/20 Range/Units 07:03 07:03 11:26 WBC (3.8-10.6) k/uL RBC (4.30-5.90) m/uL Hgb (13.0-17.5) gm/dL Hct (39.0-53.0) % MCHC (31.0-37.0) g/dL RDW (11.5-15.5) % Neutrophils # (Manual) (1.3-7.7) k/uL Metamyelocytes # (Man) (0) k/uL APTT 49.5 H (22.0-30.0) sec Potassium 3.3 L (3.5-5.1) mmol/L BUN 31 H (9-20) mg/dL POC Glucose (mg/dL) 113 H (75-99) mg/dL Assessment and Plan Assessment: 1 Acute hypoxic respiratory failure secondary to sepsis, septic shock, related to pneumonia, with chronic loculated effusions, possible empyema. Cultures positive for Aspergillus fumigatus. 2 Bilateral hydropneumothorax, possible empyema, status post ultrasound-guided left-sided thoracentesis on 08/22/2020 with 45 ML's of cloudy white fluid removed, showing Aspergillus. Remains on voriconazole. 3 Recent admission for hypotension, dehydration secondary to nausea, vomiting, acute kidney injury with diarrhea. 4 Recent pulmonary infections with history of streptococcal pneumonia, empyema requiring chest tube placement in January 2020. 5 Chronic loculated pneumothoraces, posterior, with air-fluid seen on CAT scan imaging on the chest. Possibility of trapped lung, chronic scarring and possibility of empyema. 6 History of rheumatoid arthritis and rheumatoid lung disease. On Arava 7 Recent history of acute kidney injury 8 Hypertension 9 Hypothyroidism 10 Previous history of DVT. 11 New-onset atrial fibrillation/flutter anticoagulated on heparin drip Plan: The patient was seen and evaluated by Dr. Dutton. Chest x-ray and labs reviewed Pleurx catheter to be placed on 08/29/2020 The plan is for installation of amphotericin Cardiology considering cardioversion Continue heparin drip for now We'll continue to follow I, the cosigning physician, performed a history & physical examination of the patient. Lungs sounds bilateral scattered rhonchi and crackles in the bilateral bases. Maintaining good O2 saturations in the 90s on 2 L/m per nasal cannula. I discussed the assessment and plan of care with my nurse practitioner, Morena Cobb. I attest to the above note as dictated by her.
--- NOTE | 2020-08-28 14:05 | P.PN ---
Subjective Progress Note Date: 08/28/20 The patient was interviewed and examined sitting up in the recliner chair. He states he did have some shortness of breath ambulating from the bed, but it quickly resolved. He also feels occasional palpitations. No chest pain or chest pressure. No dizziness or lightheadedness. Positive for fatigue. GENERAL: Well-appearing, well-nourished and in no acute distress. NECK: Supple without JVD or thyromegaly. LUNGS: Breath sounds rhonchorous to auscultation bilaterally. Respiration equal and unlabored. No wheezes or crackles. HEART: Regular rate and rhythm without murmurs, rubs or gallops. S1 and S2 heard. Tachycardic. EXTREMITIES: Normal range of motion, no edema. No clubbing or cyanosis. Peripheral pulses intact and strong. VITALS: Blood pressure 101/66, heart rate 106, respiratory rate 20, SpO2 95% on 2 L nasal cannula, temperature 97.6F oral TELEMETRY: Atrial flutter with RVR. Heart rates in the 130s. LABS: WBC 19.0, hemoglobin 9.2, hematocrit 30.2, sodium 142, potassium 3.6, BUN 31, creatinine 0.81 IMPRESSION: #1 atrial flutter with RVR, on IV heparin #2 fungal pneumonia with empyema #3 hypertension #4 hyperlipidemia #5 leukocytosis #6 anemia PLAN: Patient will be proceeding with chest tube placement by CV surgery on Saturday. Proceed with cardioversion after chest tube placement Continue to maximize beta blockers as tolerated Further recommendations based upon clinical course The patient has been seen and evaluated. Plan of care has been reviewed and agreed upon by Dr Prieto. Objective - Vital Signs Vital signs: Vital Signs Temp 97.6 F 08/28/20 11:37 Pulse 105 H 08/28/20 11:37 Resp 20 08/28/20 11:37 BP 91/64 08/28/20 11:37 Pulse Ox 95 08/28/20 11:37 Intake & Output 08/27/20 08/28/20 08/28/20 18:59 06:59 18:59 Intake Total 1308.041 744.975 730.000 Output Total 5234 176 9524 Balance -191.959 444.975 -1145.000 Weight 100.7 kg Intake: Intake, IV Titration 124.041 204.975 250.000 Amount Heparin Sod,Pork in 0.45% 124.041 204.975 250.000 NaCl 25,000 unit In 0.45 % NaCl 1 250ml.bag @ 16 UNITS/KG/HR 16.112 mls/hr IV .[id number] [facility] Rx#: [id number] Oral 1184 540 480 Output: Urine 2358 249 1435 Other: Voiding Method Toilet Toilet Urinal Urinal # Voids 1 1 # Bowel Movements 1 - Labs CBC & Chem 7: 08/28/20 07:03 08/28/20 07:03 Labs: Abnormal Lab Results - Last 24 Hours (Table) 08/27/20 08/27/20 08/27/20 Range/Units 08:53 17:06 18:49 WBC (3.8-10.6) k/uL RBC (4.30-5.90) m/uL Hgb (13.0-17.5) gm/dL Hct (39.0-53.0) % MCHC (31.0-37.0) g/dL RDW (11.5-15.5) % Neutrophils # (Manual) (1.3-7.7) k/uL Metamyelocytes # (Man) (0) k/uL APTT 124.7 H* 30.9 H (22.0-30.0) sec Potassium (3.5-5.1) mmol/L BUN (9-20) mg/dL POC Glucose (mg/dL) 131 H (75-99) mg/dL 08/27/20 08/28/20 08/28/20 Range/Units 20:15 01:16 07:03 WBC 18.5 H (3.8-10.6) k/uL RBC 3.73 L (4.30-5.90) m/uL Hgb 10.1 L (13.0-17.5) gm/dL Hct 32.9 L (39.0-53.0) % MCHC 30.8 L (31.0-37.0) g/dL RDW 18.5 H (11.5-15.5) % Neutrophils # (Manual) 14.20 H (1.3-7.7) k/uL Metamyelocytes # (Man) 0.37 H (0) k/uL APTT 43.5 H (22.0-30.0) sec Potassium (3.5-5.1) mmol/L BUN (9-20) mg/dL POC Glucose (mg/dL) 131 H (75-99) mg/dL 08/28/20 08/28/20 08/28/20 Range/Units 07:03 07:03 11:26 WBC (3.8-10.6) k/uL RBC (4.30-5.90) m/uL Hgb (13.0-17.5) gm/dL Hct (39.0-53.0) % MCHC (31.0-37.0) g/dL RDW (11.5-15.5) % Neutrophils # (Manual) (1.3-7.7) k/uL Metamyelocytes # (Man) (0) k/uL APTT 49.5 H (22.0-30.0) sec Potassium 3.3 L (3.5-5.1) mmol/L BUN 31 H (9-20) mg/dL POC Glucose (mg/dL) 113 H (75-99) mg/dL
--- NOTE | 2020-08-28 14:51 | PN ---
PROGRESS NOTE DATE OF SERVICE: 08/28/2020 I am covering for Dr. Marie. This 60-year-old gentleman who was admitted with acute hypoxic respiratory failure secondary to loculated left-sided pleural effusion also had possible fungal empyema. The patient had multiple organisms grown from the culture. The patient is on antifungal treatment. A PleurX catheter drainage is being planned tomorrow. The most recent chest x-ray which was reviewed personally by me showed bilateral parenchymal lesions and significant pleural effusions also with some air-fluid levels on the left side. Past medical history reviewed. REVIEW OF SYSTEMS: CARDIOVASCULAR SYSTEM: No angina. RESPIRATORY: As mentioned earlier. GI: As mentioned earlier. : No dysuria. NERVOUS SYSTEM: No numbness or weakness. CURRENT MEDICATIONS: Reviewed and include: Tylenol. [place]. DuoNeb. Cordarone, , vitamin C, aspirin, vitamin D3, Lasix, heparin, lactated Ringer's, Synthroid, Melatonin, doses reviewed. PHYSICAL EXAMINATION: The patient is alert and oriented times three. Pulse 105, blood pressure 90/64, respiration 20, temperature 97.6, pulse ox 94% on 2 L. HEENT is conjunctivae normal. NECK: No JVD. CARDIOVASCULAR: S1, S2 muffled. RESPIRATORY SYSTEM: Breath sounds diminished at the bases. A few scattered rhonchi and crackles. ABDOMEN: Soft, nontender. NERVOUS SYSTEM: No focal deficits. LABS: WBC 18.2, hemoglobin 10.1. Sodium 141, potassium 3.3. ASSESSMENT: 1. Acute bilateral pneumonia with left-sided pleural effusion, fungal empyema with recurrent pneumonia. 2. Lactic acidosis. 3. Foot ulcer drainage. 4. Sepsis and septic shock. 5. Acute kidney injury. 6. Leukocytosis. 7. Atrial flutter with rapid ventricular rate. 8. History of rheumatoid arthritis and rheumatoid lung. 9. History of empyema with Streptococcus. 10.Hypertension. 11.Hypertensive cardiovascular disease. 12.Hypothyroidism. 13.Deep vein thrombosis prophylaxis. 14.Gastrointestinal prophylaxis. 15.Increased WBC. 16.Anemia, normocytic anemia of chronic disease. RECOMMENDATIONS: In this 60-year-old gentleman who presented with multiple complex medical issues, at this time continue the current medications. Chest x-ray is stable at this time. I recommend to continue with the monitoring and PleurX drainage catheter as tomorrow. Supplement potassium. Continue with antifungals. Repeat labs in the morning. Prognosis guarded because of multiple complex medical issues and further recommendations to follow. MMODL / IJN: [id number] / [place]
[2020-08-28 16:17] LABS: Glucose,Whole Blood 123 mg/dL (75-99)
[2020-08-28 20:36] LABS: Glucose,Whole Blood 152 mg/dL (75-99)
[2020-08-28] MEDS: CHOLECALCIFEROL 25 MCG (1000 IU) TABLET PO SCH (21:23)
[2020-08-28] MEDS: ASPIRIN 81 MG PO SCH (21:23)
[2020-08-28] MEDS: ASCORBIC ACID 500 MG TAB PO SCH (21:24)
[2020-08-28] MEDS: LACTATED RINGERS 1,000 ML IV SCH (21:25)
--- NOTE | 2020-08-28 23:04 | PN ---
PROGRESS NOTE DATE OF SERVICE: 08/28/2020 REASON FOR FOLLOWUP: Aspergillus pneumonia and empyema. INTERVAL HISTORY: Patient is currently afebrile. The patient is breathing comfortably. Denies having any chest pain, shortness of breath. Occasional cough. No abdominal pain. O diarrhea. PHYSICAL EXAMINATION: Blood pressure 104/65 with a pulse of 100, temperature 97.8. He is 95% on 2 L nasal cannula. General description is a middle-aged male lying in bed in no distress. Respiratory system: Unlabored breathing, decreased breath sounds at bases. No wheeze. Heart S1, S2. Regular rate and rhythm. ABDOMEN: Soft, no tenderness. LABS: Hemoglobin is 10.1, white count 15.5. BUN of 31, creatinine 0.80. DIAGNOSTIC IMPRESSION AND PLAN: Patient with aspergillus pneumonia and empyema. tomorrow. The patient is covered with voriconazole to continue and monitor clinical course closely. MMODL / IJN: [id number] /
[2020-08-29] MEDS: HYDROcodone/APAP 5-325MG 1 EACH TAB PO PRN ×2 (00:43→22:45)
[2020-08-29] MEDS ORDERED: Pre Op ABX Message 1 EACH MISC MISCELLANE ONE (05:00)
[2020-08-29 06:32] LABS: Glucose,Whole Blood 107 mg/dL (75-99)
[2020-08-29] MEDS: PANTOPRAZOLE 40 MG TABLET PO SCH (06:38)
[2020-08-29] MEDS: LEVOTHYROXINE 75 MCG TAB PO SCH (06:38)
[2020-08-29] MEDS: IPRATROPIUM-ALBUTEROL 3 ML NEB INHALATION SCH ×3 (07:39→20:26)
[2020-08-29 07:50] LABS: Anisocytosis Slight; HCT 31.7 % (39.0-53.0); HGB 9.6 gm/dL (13.0-17.5); Hypochromasia Marked; MCH 26.9 pg (25.0-35.0); MCHC 30.4 g/dL (31.0-37.0); MCV 88.5 fL (80.0-100.0); Mean Platelet Volume 8.8; Platelet Count 325 k/uL (150-450); RBC 3.58 m/uL (4.30-5.90); RDW 18.6 % (11.5-15.5)
[2020-08-29 07:54] LABS: African American GFR (CKD) >90 (>60 ml/min/1.73 sqM); Anion Gap 8 mmol/L; Blood Urea Nitrogen 28 mg/dL (9-20); Calcium 8.6 mg/dL (8.4-10.2); Carbon Dioxide 30 mmol/L (22-30); Chloride 105 mmol/L (98-107); Glucose 103 mg/dL (74-99); Non-African American GFR(CKD) >90 (>60 ml/min/1.73 sqM); Sodium 143 mmol/L (137-145)
[2020-08-29 08:33] LABS: Band Neutrophils % 2 %; Lymphocytes # (M) 1.68 k/uL (1.0-4.8); Metamyelocytes # (M) 0.42 k/uL (0); Metamyelocytes % 2 %; Monocytes # (M) 1.68 k/uL (0-1.0); Myelocytes # (M) 0.84 k/uL (0); Myelocytes % 4 %; Neutrophils % (M) 78 %; Nucleated Red Blood Cells 0 /100 WBC (0-0); Total Cells Counted 200
[2020-08-29] MEDS: HYDROCORTISONE SUCCINATE 100 MG/2 ML VIAL IV SCH ×3 (09:04→23:57)
[2020-08-29] MEDS: FUROSEMIDE 10 MG/ML 4 ML VIAL IV SCH (09:05)
[2020-08-29] MEDS: AMIODARONE 200 MG TAB PO SCH ×2 (09:05→20:55)
[2020-08-29] MEDS: METOPROLOL TARTRATE 25 MG TAB PO SCH ×3 (09:05→22:40)
[2020-08-29] MEDS: POTASSIUM CHLORIDE ER 20 MEQ TAB.ER PO SCH ×2 (09:09→12:54)
[2020-08-29] MEDS: VORICONAZOLE 400 MG in SODIUM CHLORIDE 0.9% 250 ML IVPB SCH ×2 (09:10→20:55)
--- NOTE | 2020-08-29 09:13 | P.PN ---
Subjective Progress Note Date: 08/29/20 Principal diagnosis: Bilateral pneumonia, bilateral hydropneumothorax, possible empyema, sputum culture preliminarily positive for Aspergillus species, acute hypoxic respiratory failure with sepsis on admission. Past medical history significant for multiple admissions for pneumonia with empyema on the left and previous bilateral chest tube placement in December 2019 with cultures positive for strep pneumonia, rheumatoid arthritis with rheumatoid lung, hypertension, hypothyroidism, DVT, previous tobacco dependence, family history of lung cancer, and recent hospitalization for hypotension, dehydration, acute kidney injury requiring dialysis. POD #7 left-sided thoracentesis by interventional radiology. The patient was seen on follow-up today 08/29/2020 at his bedside on the cardiac stepdown unit. He is awake, alert and oriented 3 and is sitting up to the bedside chair. Denies any complaints of pain or shortness of breath this morning although is complaining of a productive cough with green tinged sputum. Sputum culture was positive for Aspergillus as well as the pleural fluid from the left-sided thoracentesis and he remains on Vfend for coverage. Oxygen saturations are 93% on 1 L nasal cannula and he is achieving 1000 mL on his incentive spirometry. Remote telemetry today is showing atrial fibrillation heart rate 77 BPM, he remains on a heparin drip per protocol. Questions answered to to the best of my ability in regards to his Pleurx catheter procedure today. He remains nothing by mouth since midnight. Laboratory results today show a WBC count trending up 21.0, hemoglobin 9.6, hematocrit 31.7, platelets 325, PTT 54.0, sodium 143, potassium 3.0, BUN 28 and creatinine 0.80. Objective - Vital Signs Vital signs: Vital Signs Temp 98.2 F 08/29/20 04:00 Pulse 71 08/29/20 04:00 Resp 18 08/29/20 04:00 BP 100/67 08/29/20 04:00 Pulse Ox 93 L 08/29/20 04:00 Intake & Output 08/28/20 08/29/20 08/29/20 18:59 06:59 18:59 Intake Total 970.000 472.175 Output Total 1875 650 Balance -905.000 -177.825 Weight 100.7 kg Intake: IV 20 Invasive Line 2 10 Invasive Line 5 10 Intake, IV Titration 250.000 212.175 Amount Heparin Sod,Pork in 0.45% 250.000 212.175 NaCl 25,000 unit In 0.45 % NaCl 1 250ml.bag @ 16 UNITS/KG/HR 16.112 mls/hr IV .[id number] [facility] Rx#: [id number] Oral 720 240 Output: Urine 1875 650 Other: Voiding Method Toilet Toilet Urinal Urinal # Voids 1 - Constitutional General appearance: Present: cooperative, no acute distress, obese - EENT Eyes: Present: normal appearance. Absent: scleral icterus ENT: Present: hearing grossly normal - Neck Details: Neck is supple, no JVD. - Respiratory Details: Lung sounds with expiratory wheezes throughout, diminished to his bilateral bases. Respirations are symmetrical and nonlabored. Oxygen saturation is 93% on 1 L nasal cannula. Achieving 1000 mL on his incentive spirometry. - Cardiovascular Details: Irregular rhythm and regular rate. S1 and S2 present, negative for S3, gallop or murmur. Remote telemetry showing atrial fibrillation heart rate 77 BPM. Knee-high sequential compression devices in place to his bilateral lower extremi ty Jeff. - Gastrointestinal Gastrointestinal Comment(s): Abdomen is soft, nontender and nondistended. Active bowel sounds present in all 4 abdominal quadrants. No guarding or rigidity. Nothing by mouth at this time. - Genitourinary Genitourinary Comment(s): Continues to void. - Integumentary Integumentary Comment(s): Skin is warm and dry. No clubbing or cyanosis is present. Integumentary: Absent: rash - Neurologic Neurologic: Present: CNII-XII intact. Absent: focal deficits - Musculoskeletal Musculoskeletal: Present: gait normal, generalized weakness, strength equal bilaterally - Psychiatric Psychiatric: Present: A&O x's 3, appropriate affect, intact judgment & insight - Allied health notes Allied health notes reviewed: nursing - Labs CBC & Chem 7: 08/29/20 06:58 08/29/20 06:58 Labs: Abnormal Lab Results - Last 24 Hours (Table) 08/28/20 08/28/20 08/28/20 Range/Units 11:26 16:15 20:26 WBC (3.8-10.6) k/uL RBC (4.30-5.90) m/uL Hgb (13.0-17.5) gm/dL Hct (39.0-53.0) % MCHC (31.0-37.0) g/dL RDW (11.5-15.5) % Neutrophils # (Manual) (1.3-7.7) k/uL Monocytes # (Manual) (0-1.0) k/uL Metamyelocytes # (Man) (0) k/uL Myelocytes # (Manual) (0) k/uL APTT (22.0-30.0) sec Potassium (3.5-5.1) mmol/L BUN (9-20) mg/dL Glucose (74-99) mg/dL POC Glucose (mg/dL) 113 H 123 H 152 H (75-99) mg/dL 08/29/20 08/29/20 08/29/20 Range/Units 06:12 06:58 06:58 WBC 21.0 H (3.8-10.6) k/uL RBC 3.58 L (4.30-5.90) m/uL Hgb 9.6 L (13.0-17.5) gm/dL Hct 31.7 L (39.0-53.0) % MCHC 30.4 L (31.0-37.0) g/dL RDW 18.6 H (11.5-15.5) % Neutrophils # (Manual) 16.80 H (1.3-7.7) k/uL Monocytes # (Manual) 1.68 H (0-1.0) k/uL Metamyelocytes # (Man) 0.42 H (0) k/uL Myelocytes # (Manual) 0.84 H (0) k/uL APTT 54.0 H (22.0-30.0) sec Potassium (3.5-5.1) mmol/L BUN (9-20) mg/dL Glucose (74-99) mg/dL POC Glucose (mg/dL) 107 H (75-99) mg/dL 08/29/20 Range/Units 06:58 WBC (3.8-10.6) k/uL RBC (4.30-5.90) m/uL Hgb (13.0-17.5) gm/dL Hct (39.0-53.0) % MCHC (31.0-37.0) g/dL RDW (11.5-15.5) % Neutrophils # (Manual) (1.3-7.7) k/uL Monocytes # (Manual) (0-1.0) k/uL Metamyelocytes # (Man) (0) k/uL Myelocytes # (Manual) (0) k/uL APTT (22.0-30.0) sec Potassium 3.0 L (3.5-5.1) mmol/L BUN 28 H (9-20) mg/dL Glucose 103 H (74-99) mg/dL POC Glucose (mg/dL) (75-99) mg/dL Assessment and Plan Assessment: 1. Bilateral pneumonia, bilateral hydropneumothorax, possible empyema, sputum culture preliminarily positive for Aspergillus species, status post left-sided thoracentesis 2. Acute hypoxic respiratory failure with sepsis on admission 3. Multiple admissions for pneumonia with empyema on the left and previous bilateral chest tube placement in December 2019 with cultures positive for strep pneumonia 4. Rheumatoid arthritis with rheumatoid lung 5. Hypertension, currently hypotensive, requiring pressors on admission 6. Hypothyroidism 7. History of DVT 8. Previous tobacco dependence 9. Family history of lung cancer 10. Recent hospitalization for hypotension, dehydration, acute kidney injury re quiring dialysis 11. New-onset atrial fibrillation/atrial flutter with rapid ventricular response, currently on amiodarone by mouth and metoprolol tartrate Plan: 1. Pleural fluid culture and sputum culture shows Aspergillus Fumigatus, currently on Vfend IV piggyback. 2. Continue to follow chest x-rays. 3. Encourage incentive spirometry 10 times every hour while awake. Bronchodilators per pulmonary for/critical care medicine. 4. Currently on Vfend managed by infectious disease. Amphotericin B pleural irrigation is available for on-call to the operating room for Pleurx catheter placement today 08/29/2020. 5. Increase activity as tolerated. 6. Medical management and other comorbidities per primary care service. 7. The patient is scheduled for a left Pleurx catheter placement today 08/29/2020 to be performed by Dr. Oswaldo Dubois. 8. Preoperative teaching reinforcement the patient. 9. More recommendations to follow based on patient's clinical course. Time with Patient: Greater than 30
[2020-08-29] MEDS ORDERED: POTASSIUM CHLORIDE ER 20 MEQ TAB.ER PO STA (10:12)
--- NOTE | 2020-08-29 10:45 | P.PN ---
Subjective Progress Note Date: 08/29/20 60-year-old white male patient, On today's evaluation of 08/29/2020, the patient is doing well. He is awaiting his surgery. He is currently nothing by mouth. After lengthy discussion with the surgeon, total decided to proceed with a Pleurx catheter insertion on the left with and with Ampho B showed of the pleural space. The patient is also on voriconazole. He is coughing out thick sputum. Note that the pleural fluid aspirated from the left lung showed Aspergillus fumigatus. Sputum also showed the same. As such the patient has fungal empyema involving the LAD left lung for sure and possibly on the right. There is extensive thickening of the vessel and the parietal pleura in addition to large cavities in lung bases bilaterally consistent with empyema. No fever. No chills. He Is a 22 with a Hemoglobin of 9.6. On a separate note, the patient has a new onset atrial fibrillation/flutt er and the patient is currently on IV heparin which was placed on hold for Pleurx catheter insertion. CT chest showed thick-walled pleural cavities posteriorly in the lower lungs with left-sided air-fluid level with left-sided pleural fluid diminished most recent CT from 07/19/2020. There is associated compressive atelectasis and/or chronic consolidation. Persistent as it is lobe fissure, multifocal areas of reticular nodular opacity in the upper lungs remain present with slight nodularity in the left upper lobe. There is a focal consolidation improved from most recent study with some residual areas of scarring. past medical history of rheumatoid arthritis, previous history of rheumatoid lung disease on Arava, previous episodes of pneumonia and history of loculated empyema requiring chest tube placement back in January 2020 with pleural fluid cultures positive for streptococcal pneumonia. Other medical history includes hypertension, hypothyroidism and previous history of DVT. Patient had a recent hospitalization from August 08 through 08/11/2020 hypotension, dehydration related to nausea vomiting diarrhea, acute kidney injury. I was involved in his care back then. At that time the patient also had cavities in the lung bases posteriorly with some air-fluid level. The patient is currently off immunosuppression treatment and the patient was taken a combination of Arava and Xaljenz and he is a latest intake of this medication was approximately 5 months ago. He is using incentive spirometer. Objective - Vital Signs Vital signs: Vital Signs Temp 98.2 F 08/29/20 04:00 Pulse 71 08/29/20 04:00 Resp 18 08/29/20 04:00 BP 100/67 08/29/20 04:00 Pulse Ox 93 L 08/29/20 04:00 Intake & Output 08/28/20 08/29/20 08/29/20 18:59 06:59 18:59 Intake Total 970.000 472.175 Output Total 1875 650 Balance -905.000 -177.825 Weight 100.7 kg Intake: IV 20 Invasive Line 2 10 Invasive Line 5 10 Intake, IV Titration 250.000 212.175 Amount Heparin Sod,Pork in 0.45% 250.000 212.175 NaCl 25,000 unit In 0.45 % NaCl 1 250ml.bag @ 16 UNITS/KG/HR 16.112 mls/hr IV .[id number] [facility] Rx#: [id number] Oral 720 240 Output: Urine 1875 650 Other: Voiding Method Toilet Toilet Urinal Urinal # Voids 1 - Exam GENERAL EXAM: Alert, very pleasant 60-year-old gentleman, on 2 L nasal cannula, comfortable in no apparent distress. HEAD: Normocephalic. EYES: Normal reaction of pupils, equal size. NOSE: Clear with pink turbinates. THROAT: No erythema or exudates. NECK: No masses, no JVD. CHEST: No chest wall deformity. LUNGS: Equal air entry with few scattered rhonchi, crackles in the posterior bases. CVS: S1 and S2 normal with no audible murmur, irregular rhythm. Tachycardic. ABDOMEN: No hepatosplenomegaly, normal bowel sounds, no guarding or rigidity. SPINE: No scoliosis or deformity SKIN: No rashes CENTRAL NERVOUS SYSTEM: No focal deficits, tone is normal in all 4 extremities. EXTREMITIES: There is 2+ peripheral edema. No clubbing, no cyanosis. Peripheral pulses are intact. - Labs - Labs CBC & Chem 7: 08/29/20 06:58 08/29/20 06:58 Labs: Abnormal Lab Results - Last 24 Hours (Table) 08/28/20 08/28/20 08/28/20 Range/Units 11:26 16:15 20:26 WBC (3.8-10.6) k/uL RBC (4.30-5.90) m/uL Hgb (13.0-17.5) gm/dL Hct (39.0-53.0) % MCHC (31.0-37.0) g/dL RDW (11.5-15.5) % Neutrophils # (Manual) (1.3-7.7) k/uL Monocytes # (Manual) (0-1.0) k/uL Metamyelocytes # (Man) (0) k/uL Myelocytes # (Manual) (0) k/uL APTT (22.0-30.0) sec Potassium (3.5-5.1) mmol/L BUN (9-20) mg/dL Glucose (74-99) mg/dL POC Glucose (mg/dL) 113 H 123 H 152 H (75-99) mg/dL 08/29/20 08/29/20 08/29/20 Range/Units 06:12 06:58 06:58 WBC 21.0 H (3.8-10.6) k/uL RBC 3.58 L (4.30-5.90) m/uL Hgb 9.6 L (13.0-17.5) gm/dL Hct 31.7 L (39.0-53.0) % MCHC 30.4 L (31.0-37.0) g/dL RDW 18.6 H (11.5-15.5) % Neutrophils # (Manual) 16.80 H (1.3-7.7) k/uL Monocytes # (Manual) 1.68 H (0-1.0) k/uL Metamyelocytes # (Man) 0.42 H (0) k/uL Myelocytes # (Manual) 0.84 H (0) k/uL APTT 54.0 H (22.0-30.0) sec Potassium (3.5-5.1) mmol/L BUN (9-20) mg/dL Glucose (74-99) mg/dL POC Glucose (mg/dL) 107 H (75-99) mg/dL 08/29/20 Range/Units 06:58 WBC (3.8-10.6) k/uL RBC (4.30-5.90) m/uL Hgb (13.0-17.5) gm/dL Hct (39.0-53.0) % MCHC (31.0-37.0) g/dL RDW (11.5-15.5) % Neutrophils # (Manual) (1.3-7.7) k/uL Monocytes # (Manual) (0-1.0) k/uL Metamyelocytes # (Man) (0) k/uL Myelocytes # (Manual) (0) k/uL APTT (22.0-30.0) sec Potassium 3.0 L (3.5-5.1) mmol/L BUN 28 H (9-20) mg/dL Glucose 103 H (74-99) mg/dL POC Glucose (mg/dL) (75-99) mg/dL Assessment and Plan Plan: 1 Acute hypoxic respiratory failure secondary to sepsis, septic shock, related to pneumonia, with chronic loculated effusions, possible empyema. Cultures positive for Aspergillus fumigatus. This could be a fungal empyema/infection, possible bilateral although this was only confirmed on the left side. The sputum is positive for Aspergillus fumigatus. The pleural fluid is also positive. The patient is currently on voriconazole. Ideally, he would require from surgical intervention including thoracoscopy/decortication. Nevertheless, the surgeon thought that this would be an extensive surgery for him and he decided to proceed with Pleurx catheter insertion. 2 Bilateral hydropneumothorax, possible empyema, status post ultrasound-guided left-sided thoracentesis on 08/22/2020 with 45 ML's of cloudy white fluid removed, showing Aspergillus. Remains on voriconazole. 3 Recent admission for hypotension, dehydration secondary to nausea, vomiting, acute kidney injury with diarrhea. 4 Recent pulmonary infections with history of streptococcal pneumonia, empyema requiring chest tube placement in January 2020. 5 Chronic loculated pneumothoraces, posterior, with air-fluid seen on CAT scan imaging on the chest. Possibility of trapped lung, chronic scarring and poss ibility of empyema. 6 History of rheumatoid arthritis and rheumatoid lung disease. On Arava 7 Recent history of acute kidney injury 8 Hypertension 9 Hypothyroidism 10 Previous history of DVT. 11 New-onset atrial fibrillation/flutter anticoagulated on heparin drip Plan: Pleurx catheter to be placed on 08/29/2020 The plan is for installation of amphotericin B in the pleural space and continue the voriconazole. The patient remains in atrial fibrillation. Possible cardioversion at a later stage. Continue heparin drip for now We'll continue to follow
[2020-08-29 12:09] LABS: Glucose,Whole Blood 85 mg/dL (75-99)
[2020-08-29] MEDS: TRIAMCINOLONE 0.1% CREAM 80 GM TUBE TOPICAL SCH ×2 (12:55→20:57)
[2020-08-29] MEDS: LACTATED RINGERS 1,000 ML IV SCH (12:57)
[2020-08-29] MEDS ORDERED: DEXTROSE 5% MISCELLANE ONE ×2 (13:30)
[2020-08-29] MEDS ORDERED: WATER MISCELLANE ONE ×2 (13:30)
[2020-08-29] MEDS ORDERED: AMPHOTERICIN B LIPOSOME MISCELLANE ONE ×2 (13:30)
[2020-08-29] MEDS ORDERED: IV FLUID CONTINUATION 400 ML IV ONE ×2 (13:34→13:35)
[2020-08-29] MEDS ORDERED: ONDANSETRON 4 MG/2 ML VIAL ONE (13:58)
[2020-08-29] MEDS ORDERED: ONDANSETRON 4 MG/2 ML VIAL IVP ONE (14:06)
[2020-08-29] MEDS ORDERED: LIDOCAINE 1% INJ 10MG/ML (20 ML MDV) ONE (14:35)
[2020-08-29] MEDS ORDERED: PROPOFOL 10 MG/ML 20 ML VIAL IV ONE (14:35)
[2020-08-29] MEDS ORDERED: fentaNYL (PF) 50 MCG/ML 2 ML AMP ONE (14:35)
[2020-08-29] MEDS ORDERED: PHENYLEPHRINE-0.9% NACL SYG 1,000 MCG/10 ML SYRINGE ONE (14:35)
[2020-08-29] MEDS ORDERED: MIDAZOLAM 2 MG/2 ML VIAL ONE (14:35)
[2020-08-29] MEDS ORDERED: KETAMINE 10 MG/ML 20 ML VIAL ONE (14:35)
[2020-08-29] MEDS ORDERED: LIDOCAINE 1% INJ 10MG/ML (10 ML MDV) SQ ONE (15:18)
--- NOTE | 2020-08-29 15:29 | P.PN ---
Subjective Progress Note Date: 08/29/20 HISTORY OF PRESENT ILLNESS: Patient examined this morning. Patient is sitting up in the chair. He denies chest pain or pressure. He denies shortness of breath. He continues to have a productive cough. WBC 21.0. blood pressure 100/67. Heart rate in the 70s. He is afebrile. PHYSICAL EXAM: VITAL SIGNS: Reviewed. GENERAL: Well-developed in no acute distress. NECK: Supple. No JVD or thyromegaly LUNGS: Respirations even and unlabored. Lungs essentially clear to auscultation bilaterally. HEART: Irregular rate and rhythm. S1 and S2 heard. EXTREMITIES: Normal range of motion. No clubbing or cyanosis. Peripheral pulses intact. No lower extremity edema ASSESSMENT: Atrial flutter with RVR, rate currently controlled Acute hypoxic respiratory failure Fungal pneumonia with empyema Hypertension Hyperlipidemia PLAN: Patient to undergo Pleurx catheter placement today Resume IV heparin after procedure Patient to undergo cardioversion tomorrow with Dr. Prieto Further recommendations pending patient course Nurse practitioner note has been reviewed by physician. Signing provider agrees with the documented findings, assessment, and plan of care. Objective - Vital Signs Vital signs: Vital Signs Temp 97.8 F 08/29/20 13:38 Pulse 68 08/29/20 13:38 Resp 18 08/29/20 13:38 BP 100/67 08/29/20 04:00 Pulse Ox 97 08/29/20 13:38 Intake & Output 08/28/20 08/29/20 08/29/20 18:59 06:59 18:59 Intake Total 970.000 472.175 25 Output Total 1875 650 Balance -905.000 -177.825 25 Weight 100.7 kg Intake: IV 20 25 Invasive Line 2 10 Invasive Line 5 10 Intake, IV Titration 250.000 212.175 Amount Heparin Sod,Pork in 0.45% 250.000 212.175 NaCl 25,000 unit In 0.45 % NaCl 1 250ml.bag @ 16 UNITS/KG/HR 16.112 mls/hr IV .[id number] [facility] Rx#: [id number] Oral 720 240 Output: Urine 1875 650 Other: Voiding Method Toilet Toilet Urinal Urinal # Voids 1 1 - Labs CBC & Chem 7: 08/29/20 06:58 08/29/20 06:58 Labs: Abnormal Lab Results - Last 24 Hours (Table) 08/28/20 08/28/20 08/29/20 Range/Units 16:15 20:26 06:12 WBC (3.8-10.6) k/uL RBC (4.30-5.90) m/uL Hgb (13.0-17.5) gm/dL Hct (39.0-53.0) % MCHC (31.0-37.0) g/dL RDW (11.5-15.5) % Neutrophils # (Manual) (1.3-7.7) k/uL Monocytes # (Manual) (0-1.0) k/uL Metamyelocytes # (Man) (0) k/uL Myelocytes # (Manual) (0) k/uL APTT (22.0-30.0) sec Potassium (3.5-5.1) mmol/L BUN (9-20) mg/dL Glucose (74-99) mg/dL POC Glucose (mg/dL) 123 H 152 H 107 H (75-99) mg/dL 08/29/20 08/29/20 08/29/20 Range/Units 06:58 06:58 06:58 WBC 21.0 H (3.8-10.6) k/uL RBC 3.58 L (4.30-5.90) m/uL Hgb 9.6 L (13.0-17.5) gm/dL Hct 31.7 L (39.0-53.0) % MCHC 30.4 L (31.0-37.0) g/dL RDW 18.6 H (11.5-15.5) % Neutrophils # (Manual) 16.80 H (1.3-7.7) k/uL Monocytes # (Manual) 1.68 H (0-1.0) k/uL Metamyelocytes # (Man) 0.42 H (0) k/uL Myelocytes # (Manual) 0.84 H (0) k/uL APTT 54.0 H (22.0-30.0) sec Potassium 3.0 L (3.5-5.1) mmol/L BUN 28 H (9-20) mg/dL Glucose 103 H (74-99) mg/dL POC Glucose (mg/dL) (75-99) mg/dL Microbiology - Last 24 Hours (Table) 08/22/20 11:30 Fungal Culture - Preliminary Pleural Fluid Aspergillus species
--- NOTE | 2020-08-29 15:39 | P.PN ---
Subjective Progress Note Date: 08/29/20 This is a 60-year-old male patient requesting my service with past medical history of rheumatoid arthritis on Arava that was diagnosed when he was 37 year old initially was started on Methotrexate that he could not tolerate then placed on Embrel but he developed side effects and finally was tried on Humira injection but he developed neurologic sided effects and was hospitaized at [facility] for quiet some time, rheumatoid lung disease, previous history of loculated empyema with chest tube placement in January 2020, hypertension, hypothyroidism, history of DVT, remote history of tobacco use and dependence, was recently hospitalized at [facility] after he was admitted for an acute kidney injury with significant metabolic acidosis associated with the elevated creatinine and elevated BUN and hypotension at that time he was seen and evaluated by pulmonary and critical care medicine, he had a central line placed and at that time, he was placed on Levophed drip he was p laced on IV anabiotic as well but the patient recovered very fast and he had an echocardiogram that showed normal LV function and segmental hypokinesia, he was supposed to follow-up with Dr. 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 expediter today and he had an episode when he was dizzy lightheaded and an episode of vomiting as well and he was sent to the emergency department for evaluation had a computed tomography of the chest as well as abdomen and pelvis that showed a thick walled pleural cavities posteriorly in the lower lungs with left-sided air-fluid level that has diminished in size from the prior computed tomography scan when he was in the hospital a few weeks back there is also associated compressive atelectasis and chronic consultation with multifocal areas of reticular nodular opacity in the upper lungs with a slight nodularity of the left upper lobe again this area of focal consultation has improved from the previous study that was done few weeks ago, patient was started on IV antibiotic with vancomycin and Zosyn as well as IV fluid, he was seen in consultation by pulmonary critical care in the emergency department as the patient blood pressure dropped and that he'll be transferred to the intensive care unit at this point in time I had long conve rsation with the patient and his at the bedside and the patient may need to have a chest tube placed for his possible right empyema, he did receive 3 L normal saline in the ER, and his blood pressure is marginal he may need to go on pressors if not recovered. 08/20:patient is sitting up in chair feeling about the same , complains of increased pain in the righ elbow, was seen earlier by pulmonary and the plan was to go for US-Guided left thoracenthesis due to to loculated left pleural effu unique and possible empyema, may need VATS, he denies any chest pain or shortness of breath, no abdominal pain nausea, vomiting or diarrhea, still have diarrhea negative for C.Diff, he seems to have accept to stay in the hospital this time as long as he needed to. 08/21: Patient sitting up in the recliner complaining of increased pain in his joints due to his rheumatoid arthritis with increased synovitis in both wrists both elbows and both shoulders he was started on hydrocortisone 100 mg IV push every 8 hours, to try to help with his blood pressure as well as his phonation, he is maintained on [place] 5/325 mg one tablet orally every 6 hours as needed for pain control, patient denies any chest pain is less short of breath, he continues to have increased coughing with yellow from production of green phlegm production, he had no fever or chills at this time he continues to be on Levothroid drip, patient has appeared to have increased swelling in both lower extremities as well as both ankles, he is maintained on IV antibiotic in the form of vancomycin as well as cefepime, infectious disease is following, patient is scheduled to go for ultrasound guidance thoracentesis of the left loculated pleural effusion tomorrow morning. 08/22: Patient remains in the intensive care unit. He has been afebrile, heart rate 100, blood pressure 95/62, pulse ox 97% on 2 L nasal cannula. Hemoglobin 8.8 and leukocytosis resolved. Creatinine 0.76, electrolytes normal. Sputum culture is positive for Aspergillus species. Blood culture showing no growth. Patient underwent diagnostic thoracentesis with interventional radiology today with removal of 45 mL of cloudy white fluid. Chest x-ray reveals no complications following left thoracentesis. Fluid has been sent for culture and cytology. Consult in place for cardiothoracic surgery to evaluate for VATS with decortication. 08/23: Patient remains in the intensive care unit. He did receive 1 dose of IV Lasix this morning ordered by nephrology. He is followed by cardiothoracic surgery was no plan for surgical intervention. ID has recommended cefepime and vancomycin for now. Expect antifungal agent ended as well. Patient denies any significant shortness of breath. He is comfortable sitting in a chair. Patient is having minimal cough and minimal sputum. Patient is achieving 1000 ml on incentive spirometry. Culture and cytology reports remain pending from thoracentesis. Repeat chest x-ray reveals patchy peripheral lung with lung zone and lower lung zone infiltrates persist unchanged. Patient has been afebrile, heart rate in the 90s and low 100s, pulse ox 91 on room air. 23: Repeat chest x-ray reveals left-sided basilar loculated pneumothorax, stable. Bilateral lung infiltrates. Correlate for pneumonia and atelectasis. WBC 9, hemoglobin 9.5. Potassium 3.4 and will be replaced. Patient is continued on cefepime and vancomycin per Dr. Blanton's recommendations. Patient in reaching 1000 on incentive spirometry. Patient is scheduled to see Dr. Dubois tomorrow. Cefepime and vancomycin had been discontinued by Dr. Blanton and started on Voriconazole. 08/25: A-Team was called this morning regarding elevated heart rate, EKG was atrial flutter with RVR and 150 bpm and patient was transferred to ICU as an overflow for the cardiac stepdown unit, started on Cardizem drip and consult with cardiology. Heart rate was improved with Cardizem and patient also received amiodarone bolus 300 mg. Patient denies any worsening shortness of breath, cough or congestion. No chest pain or palpitations. Patient is resting comfortably. 09, hemoglobin 8.8, potassium 3.4 replaced. Creatinine 0.89. 08/26: Patient remains in the intensive care unit. He continues to be in atrial flutter with 21 conduction rate. He is on heparin drip and amiodarone. He is currently in and out of atrial flutter with RVR. Cardiology is following closely and may consider cardioversion tomorrow. WBC 16.6, hgb 9.8, plt 374, sodium 143, potassium 3.9, creatinine 0.88. He has been afebrile, heart rate has been at times marginal, pulse ox 90% on room air. Patient denies having any fever or chills, no shortness of breath, no cough. No chest pain. Patient is followed by cardiothoracic surgery and plan is for left-sided PleurX catheter placement which is scheduled for Saturday. 08/29: Patient is scheduled for PleurX catheter placement this afternoon. Cardiology may schedule him for cardioversion. Dr. Woodall is planning on oral antimicrobials at the time of discharge. Patient is bringing up quite a bit of sputum. He has been afebrile, heart rate 68, blood pressure 100/67, pulse ox 93% on 1 L nasal cannula. WBC 21, hemoglobin 9.6, platelet count 325. Potassium 3, BUN 28 creatinine 0.8. Objective - Vital Signs Vital signs: Vital Signs Temp 98.2 F 08/29/20 04:00 Pulse 71 08/29/20 04:00 Resp 18 08/29/20 04:00 BP 100/67 08/29/20 04:00 Pulse Ox 93 L 08/29/20 04:00 Intake & Output 08/28/20 08/29/20 08/29/20 18:59 06:59 18:59 Intake Total 970.000 472.175 Output Total 1875 650 Balance -905.000 -177.825 Weight 100.7 kg Intake: IV 20 Invasive Line 2 10 Invasive Line 5 10 Intake, IV Titration 250.000 212.175 Amount Heparin Sod,Pork in 0.45% 250.000 212.175 NaCl 25,000 unit In 0.45 % NaCl 1 250ml.bag @ 16 UNITS/KG/HR 16.112 mls/hr IV .[id number] [facility] Rx#: [id number] Oral 720 240 Output: Urine 1875 650 Other: Voiding Method Toilet Toilet Urinal Urinal # Voids 1 - Exam Review of Systems Constitutional: Reports anorexia, Reports chronic pain, Reports fatigue, denies weakness, Reports weight loss Eyes: denies blurred vision, denies bulging eye, denies decreased vision, denies diplopia Ears, nose, mouth and throat: Denies dysphagia, Denies neck lump, Denies sore throat Respiratory: Reports dyspnea, Reports respiratory infections, Denies congestion, Denies cough with sputum, Denies home oxygen, Denies sleep apnea, Denies snoring, Denies wheezing Cardiac: No chest pain. No palpitations. No lower extremity edema. No syncopal episodes. Gastrointestinal: Reports bloating, Reports change in bowel habits, Reports diarrhea, Reports early satiety, Reports indigestion, Reports loss of appetite, Reports nausea, Reports vomiting, Denies abdominal pain, Denies belching, Denies heartburn, Denies hematemesis, Denies hematochezia, Denies melena Genitourinary: Denies dysuria, Denies nocturia Musculoskeletal: Denies myalgias Musculoskeletal: absent: ankle pain, ankle stiffness, ankle swelling, elbow pain, elbow stiffness, elbow swelling, foot pain, foot stiffness, foot swelling, hand pain, hand stiffness, hand swelling, hip pain, hip stiffness, hip swelling, knee pain, knee stiffness, knee swelling, shoulder pain, shoulder stiffness, shoulder swelling, wrist pain, wrist stiffness, wrist swelling Integumentary: Denies pruritus, Denies rash Neurological: Denies numbness, Denies weakness Psychiatric: Denies anxiety, Denies depression Endocrine: Denies fatigue, Denies weight change Physical examination: General: patient is 60 year old male patient resting in chair and appears to be in no acute distress. HEENT: head ia atraumatic normocephalic, Pupils were equal round reactive to light and accommodations , extra ocular muscle movement were intact, mucous membranes of the mouth are somewhat dry. Neck: supple no JVP. Chest: decreased breath sounds at he bases with few ronchi no expiratory wheezes no chest wall tendernes or intercostal retractions. Heart: first heart sound is depressed, second heart sound is normal tachycardic there is BIRD 2/6 located at the left sternal border. Abdomen: soft, mild tenderness to the left lower quadrant positive bowel sounds, no guarding or rebound tenderness, no hepatosplenomegaly. Extremities: there is no edema or calf tenderness DP+ 2 Bilaterally, there is what appears to be a charcot joint in the right foot form arch collapse. Neurologic examination: patient is awake , alert and oriented X 3 CN II-XII are grossly intact, muscle power 4/5 in bilateral upper and lower extremities, deep tendon reflexes were normal. - Labs CBC & Chem 7: 08/29/20 06:58 08/29/20 06:58 Labs: Abnormal Lab Results - Last 24 Hours (Table) 08/28/20 08/28/20 08/28/20 Range/Units 07:03 07:03 07:03 WBC 18.5 H (3.8-10.6) k/uL RBC 3.73 L (4.30-5.90) m/uL Hgb 10.1 L (13.0-17.5) gm/dL Hct 32.9 L (39.0-53.0) % MCHC 30.8 L (31.0-37.0) g/dL RDW 18.5 H (11.5-15.5) % Neutrophils # (Manual) 14.20 H (1.3-7.7) k/uL Metamyelocytes # (Man) 0.37 H (0) k/uL APTT 49.5 H (22.0-30.0) sec Potassium 3.3 L (3.5-5.1) mmol/L BUN 31 H (9-20) mg/dL POC Glucose (mg/dL) (75-99) mg/dL 08/28/20 08/28/20 08/28/20 Range/Units 11:26 16:15 20:26 WBC (3.8-10.6) k/uL RBC (4.30-5.90) m/uL Hgb (13.0-17.5) gm/dL Hct (39.0-53.0) % MCHC (31.0-37.0) g/dL RDW (11.5-15.5) % Neutrophils # (Manual) (1.3-7.7) k/uL Metamyelocytes # (Man) (0) k/uL APTT (22.0-30.0) sec Potassium (3.5-5.1) mmol/L BUN (9-20) mg/dL POC Glucose (mg/dL) 113 H 123 H 152 H (75-99) mg/dL 08/29/20 08/29/20 Range/Units 06:12 06:58 WBC (3.8-10.6) k/uL RBC (4.30-5.90) m/uL Hgb (13.0-17.5) gm/dL Hct (39.0-53.0) % MCHC (31.0-37.0) g/dL RDW (11.5-15.5) % Neutrophils # (Manual) (1.3-7.7) k/uL Metamyelocytes # (Man) (0) k/uL APTT 54.0 H (22.0-30.0) sec Potassium (3.5-5.1) mmol/L BUN (9-20) mg/dL POC Glucose (mg/dL) 107 H (75-99) mg/dL Assessment and Plan Assessment: 1. Acute hypoxemic respiratory failure secondary to loculated left-sided pleural effusion and fungal empyema with what appears to be recurrent pneumonia. Continue Voriconazole 200 mg every 12 hours IV piggyback per Dr. Blanton, interventional radiology performed ultrasound-guided thoracentesis of the left loculated pleural fluid for Gram stain and culture and cytology as well as LDH protein as well as pH for possible empyema. Culture positive for Aspergillus. Cardiothoracic surgery following with plans for Pleurx catheter today 2. Lactic acidosis. Resolved, repeat lactic acid is back to normal. 3. Sepsis with septic shock. Patient has been weaned off Levothroid drip. 4. Acute kidney injury due to poor oral intake of fluid as well as hypotension with acute tubular necrosis. Patient is on IV fluid, continue to monitor the patient CMP continue to monitor urine output. Nephrology is following. 5. Leukocytosis secondary to severe sepsis secondary to empyema. Continue IV fluid, continue IV antibiotic, repeat CBC tomorrow morning. 6. Atrial flutter with RVR. Continue amiodarone drip and possible cardioversion tomorrow.Cardiology consult appreciated. Patient may require cardioversion. 7. Rheumatoid arthritis and rheumatoid lung. Arava and Xeljanz had been on hold since April, patient was started on hydrocortisone 100 mg IV push every 8 hours. 8. History of empyema with Streptococcus requiring chest tube. His is a similar scenario may need a cardiothoracic surgery consultation. 9. Hypertension and hypertensive cardiovascular disease. currently hypotensive . Continue the IV fluid currently as well as IV pressors if needed 10. Hypothyroidism . we will continue with Synthroid 150 mcg orally daily. 11. DVT prophylaxis. we will start Lovenox 40 mg SC daily and bilateral knee high Cecilio Hose 12. GI prophylaxis. we will continue with Protonix 40 mg IVP daily. 13. Prognosis continues to be guarded. Discharge plan: home Impression and plan of care have been directed as dictated by the signing physician. Yumiko Brown nurse practitioner acting as scribe for signing physician.
--- NOTE | 2020-08-29 15:48 | P.OP ---
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 Postoperative Diagnosis: Same Procedure(s) Performed: Left Pleurx catheter placement with irrigation of pleural space and instillation of amphotericin B solution under fluoroscopic guidance Implants: Pleurx catheter Anesthesia: MAC Surgeon: Oswaldo Dubois Estimated Blood Loss (ml): 2 IV fluids (ml): 200 Urine output (ml): 0 Pathology: none sent Condition: stable Disposition: PACU Indications for Procedure: 60-year-old male with long-standing history of pleural effusions and rheumatoid disease and pleural disease presents with pneumonia and grew Aspergillus from his lungs he had a bilateral trapped lungs with a pneumothorax on the right and a hydropneumothorax on the left hydropneumothorax was tapped and the fluid showed purulence and also grew Aspergillus Operative Findings: Chandan pus was noted in the left pleural space and was sent for fungal and routine cultures Description of Procedure: The patient was brought to the operating room, placed supine on the operating table, given IV sedation. Left chest and left upper quadrant of the abdomen were sterilely prepped and draped. Pleural space was entered in the midaxillary line in the sixth interspace with a skinny needle under lidocaine anesthesia and air and purulent fluid were noted. 18-gauge needle was placed at this site. Guidewire was threaded into the left pleural space under fluoroscopic guidance. Needle was removed and guidewire left in place. Site was enlarged to about a centimeter and a half. Counterincision was made near the sternal border and anesthetized with lidocaine. Pleurx catheter was tunneled from this incision to the initial incision and the skin cuff was left just under the skin at the exit site. Introducer and dilator were placed over the guidewire under fluoroscopic guidance and through the introducer sheath the Pleurx catheter was introduced into the pleural space. Some purulence came out and this was sent for culture. Introducer sheath was removed and the catheter was noted to lay well in the left pleural space. This incision was then closed with a 4-0 Vicryl subcutaneous and subcuticular stitch. First catheter was secured at the exit site with a 0 silk suture. It was connected to suction with a stopcock. Purulence was sucked out and then saline infused in and then the saline sucked out and more saline placed into we had irrigated with a liter of fluid. We then instilled 200 mL of amphotericin solution with 50 mg of aunts the Kerrison be into the left pleural space through the catheter and disconnected the catheter and Tip. It was placed in a standard Pleurx dressing. The skin's entry site was dressed with skin glue and a Band-Aid. The patient was transferred to recovery in stable condition.
--- NOTE | 2020-08-29 15:56 | XR ---
EXAMINATION TYPE: XR chest 1V portable DATE OF EXAM: 08/29/2020 COMPARISON: 01/20/2021 HISTORY: post op Pluerx TECHNIQUE: Frontal and lateral views of the chest are obtained. FINDINGS: Interval placement of left-sided chest tube. There is subcutaneous air seen along the chest wall. Kishore ateral coarse infiltrates persist. No evidence for sizable pneumothorax at this time. Heart size is s table. Mediastinal structures are stable and grossly unremarkable. No evidence for hilar prominence. Degenerative changes dorsal spine. IMPRESSION: 1. Interval placement of left-sided pleural catheter without sizable pneumothorax. There is evidence of subcutaneous air along the left chest wall. Bilateral infiltrates are stable.
--- NOTE | 2020-08-29 16:34 | FL ---
EXAMINATION TYPE: FL fluoroscopy <1hr DATE OF EXAM: 08/29/2020 FLUOROSCOPY Fluoroscopy time of 23 seconds was used during PleurX catheter insertion. 2 image/s document/s the carlota umana.
[2020-08-29 16:36] LABS: Glucose,Whole Blood 93 mg/dL (75-99)
[2020-08-29 20:11] LABS: Glucose,Whole Blood 126 mg/dL (75-99)
[2020-08-29] MEDS: CHOLECALCIFEROL 25 MCG (1000 IU) TABLET PO SCH (20:54)
--- NOTE | 2020-08-29 20:54 | PN ---
PROGRESS NOTE Patient is seen for followup for hyponatremia. Patient is receiving IV Lasix. He has had good urine output. Potassium is staying about 3 to 3.3 mEq/L. Renal function has improved since admission, with creatinine down to 0.8 from 1.32 on initial admission. On examination today, patient is comfortable, awake. He is not in any acute distress. Blood pressure 100/67, heart rate 68 per minute. He is afebrile. Examination shows bilateral breath sounds are heard. Abdomen is soft. Examination of lower extremities shows edema 1+ bilaterally. SPONGE DIVER exam grossly intact. Labs show sodium 143, potassium 3.0, chloride 105. CO2 is 30, BUN 28, creatinine 0.8. ASSESSMENT: 1. Hypokalemia secondary to diuresis, currently being replaced. 2. Acute kidney injury, now resolved. 3. Pneumonia, maintained on antibiotics, with possibility of empyema; scheduled for chest tube placement. 4. Septic shock associated with pneumonia, off of pressors. 5. History of rheumatoid arthritis. PLAN: Replace potassium. Check magnesium. Can add to today's labs. Repeat labs in a.m. MMODL / IJN: [id number] /
[2020-08-29] MEDS: ASPIRIN 81 MG PO SCH (20:55)
[2020-08-29] MEDS: ASCORBIC ACID 500 MG TAB PO SCH (20:55)
[2020-08-29] MEDS ORDERED: APIXABAN 2.5 MG TABLET PO ONE (22:00)
[2020-08-30] MEDS: LEVOTHYROXINE 75 MCG TAB PO SCH (05:44)
[2020-08-30] MEDS ORDERED: APIXABAN 5 MG TAB PO ONE (06:00)
[2020-08-30 06:12] LABS: Glucose,Whole Blood 102 mg/dL (75-99)
[2020-08-30] MEDS: PANTOPRAZOLE 40 MG TABLET PO SCH (06:47)
--- NOTE | 2020-08-30 07:13 | XR ---
EXAMINATION TYPE: XR chest 2V DATE OF EXAM: 08/30/2020 COMPARISON: Chest x-ray from yesterday and older studies. HISTORY: Pleural catheter progress study. Known rheumatoid lung disease. TECHNIQUE: Frontal and lateral views of the chest are obtained. FINDINGS: Posterior left basilar pleural drainage catheter redemonstrated. Persistent thick walled p osterior lower lung pleural collections bilaterally. Extensive overlying subcutaneous emphysema is mo re prominent from prior study. Persistent small bilateral pleural fluid collections with horizontal appearance on the left noted suggesting some residual pleural air. Persistent cardiomegaly. Persisten t multifocal increased opacities right lung greater than left. Fluid within fissure is noted on later al view. The osseous structures are intact. IMPRESSION: Worsening bilateral subcutaneous emphysema. Small bilateral pleural effusions more promi nent from prior. Stable posterior lower lung thick walled pleural collections with left-sided pleural drainage catheter. Background chronic parenchymal changes and cardiomegaly with multifocal right gre ater than left acute infiltrates redemonstrated.
[2020-08-30] MEDS ORDERED: PROPOFOL 10 MG/ML 20 ML VIAL IV ONE (07:19)
[2020-08-30] MEDS ORDERED: LIDOCAINE 1% INJ 10MG/ML (20 ML MDV) ONE ×2 (07:19→07:30)
[2020-08-30] MEDS ORDERED: IV FLUID CONTINUATION 1,000 ML IV ONE (07:34)
[2020-08-30] MEDS ORDERED: LIDOCAINE 1% INJ 10MG/ML (20 ML MDV) SQ ONE (07:41)
--- NOTE | 2020-08-30 08:07 | P.EPPROC ---
- EP Procedure Note Electrophysiology Procedure Note: Diagnosis Persistent atrial flutter with RVR Procedure Electrical cardioversion Pre-cardioversion intracardiac echo to rule out left atrial appendage thrombus Post cardioversion intracardiac echo Intracardiac echo prior to electrical cardioversion revealed Normal right atrial appendage thrombus No left atrial appendage thrombus Normal LV function Normal cavo tricuspid is tenderness without any pouches No right atrial or left atrial masses Normal contraction of the left atrial appendage Electrical cardioversion 200 J biphasic shock in the AP configuration successfully cardioverted to sinus rhythm Post cardioversion heart rates in the 50s occasional PVCs Post cardioversion intracardiac echo revealed absence of any left atrial appendage thrombus and normal contraction of the left atrial appendage Baseline measurements in sinus rhythm Sinus cycle length 1154, occasional PVCs and PACs FL interval 142 ms, QRS 106 ms, QT interval 500 ms plan Continue ELIQUIS 5 mg twice daily Amiodarone 200 mg twice daily for one month followed by 200 mg once daily for one month then completely stop Once his fungal infection is treated atrial flutter ablation was recommended
[2020-08-30] MEDS: IPRATROPIUM-ALBUTEROL 3 ML NEB INHALATION SCH ×3 (08:47→21:23)
[2020-08-30] MEDS: AMIODARONE 200 MG TAB PO SCH ×2 (09:09→20:51)
[2020-08-30] MEDS: METOPROLOL TARTRATE 25 MG TAB PO SCH ×3 (09:09→20:51)
[2020-08-30] MEDS: FUROSEMIDE 10 MG/ML 4 ML VIAL IV SCH ×2 (09:09→17:53)
[2020-08-30] MEDS: HYDROCORTISONE SUCCINATE 100 MG/2 ML VIAL IV SCH ×3 (09:09→23:03)
[2020-08-30] MEDS: VORICONAZOLE 400 MG in SODIUM CHLORIDE 0.9% 250 ML IVPB SCH ×2 (09:11→21:22)
[2020-08-30] MEDS: TRIAMCINOLONE 0.1% CREAM 80 GM TUBE TOPICAL SCH ×2 (09:11→20:52)
[2020-08-30 09:21] LABS: African American GFR (CKD) >90 (>60 ml/min/1.73 sqM); Anion Gap 8 mmol/L; Blood Urea Nitrogen 27 mg/dL (9-20); Calcium 8.5 mg/dL (8.4-10.2); Carbon Dioxide 31 mmol/L (22-30); Chloride 102 mmol/L (98-107); Glucose 90 mg/dL (74-99); Non-African American GFR(CKD) >90 (>60 ml/min/1.73 sqM); Potassium 3.5 mmol/L (3.5-5.1); Sodium 141 mmol/L (137-145)
--- NOTE | 2020-08-30 10:38 | P.PN ---
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 Radius his tory of multiple admissions for pneumonia with empyema on the left and previous bilateral chest tube placement in December 2019 with cultures positive for strep pneumonia, rheumatoid arthritis with rheumatoid lung, hypertension, hypothyroidism, DVT, previous tobacco dependence, family history of lung cancer, and recent hospitalization for hypotension, dehydration, acute kidney injury requiring dialysis POD #8 left-sided thoracentesis by interventional radiology POD #1 left Pleurx catheter placement with irrigation of pleural space and instillation of amphotericin B solution under thoracoscopic guidance Extensive subcutaneous emphysema Persistent atrial flutter with RVR, status post electrical cardioversion with return to normal sinus rhythm The patient is currently laying in bed on the cardiac stepdown unit in no acute distress. Denies pain, states shortness of breath has continued to improve. He was taken down for cardioversions morning and remains on bed rest. Chest x-ray this morning demonstrates extensive subcutaneous emphysema, patient appears swollen, voice sounds different, patient denies any distress, appears comfortable. Remains on IV Lasix, IV Solu-Cortef, and IV voriconazole. Remains afebrile, currently in sinus rhythm and hemodynamically stable, oxygen saturatio n in the high 90s on 2 L nasal cannula. Objective - Vital Signs Vital signs: Vital Signs Temp 97.6 F 08/30/20 08:29 Pulse 83 08/30/20 09:14 Resp 20 08/30/20 09:14 BP 95/62 08/30/20 09:14 Pulse Ox 90 L 08/30/20 08:29 Intake & Output 08/29/20 08/30/20 08/30/20 18:59 06:59 18:59 Intake Total 325 100 Output Total 1203 640 Balance -878 -640 100 Weight 100.4 kg Intake: IV 325 100 Output: Urine 1200 640 Estimated Blood Loss 3 Other: Voiding Method Toilet Toilet Urinal Urinal # Voids 1 1 - Constitutional General appearance: Present: cooperative, no acute distress - Respiratory Details: Lungs sounds diminished in the bases bilaterally. Respirations even, nonl abored. Currently on 2 L nasal cannula with oxygen saturation 97%. Able to achieve 1000 mL on his incentive spirometry. Strong cough. Left sided Pleurx catheter present. - Cardiovascular Details: S1, S2 present. Regular rate and rhythm, sinus rhythm on telemetry. Palpable peripheral pulses bilaterally. Bilateral lower extremity edema present. No maine f pain or tenderness noted. - Gastrointestinal Gastrointestinal Comment(s): Abdomen soft, nontender, nondistended. Active bowel sounds present 4 quadrants. Tolerating diet. Positive bowel movement - Genitourinary Genitourinary Comment(s): Continues to void - Integumentary Integumentary Comment(s): Skin is warm and dry with evidence of good perfusion - Neurologic Neurologic: Present: CNII-XII intact - Musculoskeletal Musculoskeletal: Present: strength equal bilaterally - Psychiatric Psychiatric: Present: A&O x's 3, appropriate affect, intact judgment & insight - Allied health notes Allied health notes reviewed: nursing - Labs CBC & Chem 7: 08/29/20 06:58 08/30/20 08:46 Labs: Abnormal Lab Results - Last 24 Hours (Table) 08/29/20 08/30/20 08/30/20 Range/Units 20:10 06:11 08:46 Carbon Dioxide 31 H (22-30) mmol/L BUN 27 H (9-20) mg/dL POC Glucose (mg/dL) 126 H 102 H (75-99) mg/dL Microbiology - Last 24 Hours (Table) 08/22/20 11:30 Fungal Culture - Preliminary Pleural Fluid Aspergillus fumigatus 08/22/20 11:30 Acid Fast Bacilli Smear - Final Pleural Fluid Acid Fast Bacilli Culture - Preliminary - Imaging and Cardiology Chest x-ray: report reviewed, image reviewed Assessment and Plan Assessment: 1. 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 Acute hypoxic respiratory failure with sepsis on admission 3. Multiple admissions for pneumonia with empyema on the left and previous bilateral chest tube placement in December 2019 with cultures positive for strep pneumonia 4. Rheumatoid arthritis with rheumatoid lung 5. Hypertension, currently hypotensive, requiring pressors on admission 6. Hypothyroidism 7. History of DVT 8. Previous tobacco dependence 9. Family history of lung cancer 10. Recent hospitalization for hypotension, dehydration, acute kidney injury requiring dialysis 11. Extensive subcutaneous emphysema 12. Persistent atrial flutter with RVR, status post electrical cardioversion with return to normal sinus rhythm Plan: 1. Pleurx catheter connected to atrium with -20 cm continuous wall suction. Will monitor for resolution of air leak and decreased subcu emphysema 2. Daily chest x-rays 3. Wean O2 as tolerated. Encourage incentive spirometry. Bronchodilators, Solu-Cortef per pulmonology 4. Amiodarone, Eliquis per cardiology 5. Continue voriconazole per infectious disease recommendations 6. Increase activity as tolerated. Suction tubing extended so patient may ambulate in the room, may remove suction for short times for patient to ambulate in the hallway 7. Management of other comorbidities per primary care service. 8. Teaching done with patient and regarding Pleurx catheter care. Will continue to reinforce while patient is hospitalized 9. More recommendations to follow Time with Patient: Greater than 30
--- NOTE | 2020-08-30 11:26 | P.PN ---
Subjective Progress Note Date: 08/30/20 On today's evaluation of 08/29/2020, the patient is doing well. He is awaiting his surgery. He is currently nothing by mouth. After lengthy discussion with the surgeon, total decided to proceed with a Pleurx catheter insertion on the left with and with Ampho B showed of the pleural space. The patient is also on voriconazole. He is coughing out thick sputum. Note that the pleural fluid aspirated from the left lung showed Aspergillus fumigatus. Sputum also showed the same. As such the patient has fungal empyema involving the LAD left lung for sure and possibly on the right. There is extensive thickening of the vessel and the parietal pleura in addition to large cavities in lung bases bilaterally consistent with empyema. No fever. No chills. He Is a 22 with a Hemoglobin of 9.6. On a separate note, the patient has a new onset atrial fibrillation/flutter and the patient is currently on IV heparin which was placed on hold for Pleurx catheter insertion. CT chest showed thick-walled pleural cavities posteriorly in the lower lungs with left-sided air-fluid level with left-sided pleural fluid diminished most recent CT from 07/19/2020. There is associated compressive atelectasis and/or chronic consolidation. Persistent as it is lobe fissure, multifocal areas of reticular nodular opacity in the upper lungs remain present with slight nodularity in the left upper lobe. There is a focal consolidation improved from most recent study with some residual areas of scarring. past medical history of rheumatoid arthritis, previous history of rheumatoid lung disease on Arava, previous episodes of pneumonia and history of loculated empyema requiring chest tube placement back in January 2020 with pleural fluid cultures positive for streptococcal pneumonia. Other medical history includes hypertension, hypothyroidism and previous history of DVT. Patient had a recent hospitalization from August 08 through 08/11/2020 hypotension, dehydration related to nausea vomiting diarrhea, acute kidney injury. I was involved in his care back then. At that time the patient also had cavities in the lung bases posteriorly with some air-fluid level. The patient is currently off immunosuppression treatment and the patient was taken a combination of Arava and Xaljenz and he is a latest intake of this medication was approximately 5 months ago. He is using incentive spirometer. On 08/30/2020 the patient is currently postop. The patient was taken to the operating room. The patient has a left-sided Pleurx catheter inserted and today's postop day #1. Intraoperatively, more purulent material was drained from the left lung, amphotericin B was infused into the pleural space and the tube was clamped and today's was unclamped. The follow-up chest x-ray from today showed development of subcutaneous emphysema bilaterally along with a hydropneumothorax on the left. Based on the surgical report, a total of 200 mL of amphotericin B solution was infused into the left pleural space. The patient is calm and comfortable today. Is on oxygen at 2 L by nasal cannula. Earlier this morning he underwent a cardioversion that was essentially successful. An MRA evaluation, the patient was back in A. fib flutter. He is on anticoagulation with Eliquis and he is also on amiodarone and cardiology is on the case. He is currently off immunosuppression treatment. Objective - Vital Signs Vital signs: Vital Signs Temp 97.6 F 08/30/20 08:29 Pulse 81 08/30/20 10:14 Resp 20 08/30/20 10:14 BP 94/57 08/30/20 10:14 Pulse Ox 90 L 08/30/20 08:29 Intake & Output 08/29/20 08/30/20 08/30/20 18:59 06:59 18:59 Intake Total 325 100 Output Total 1203 640 Balance -878 -640 100 Weight 100.4 kg Intake: IV 325 100 Output: Urine 1200 640 Estimated Blood Loss 3 Other: Voiding Method Toilet Toilet Urinal Urinal # Voids 1 1 - Exam GENERAL EXAM: Alert, very pleasant 60-year-old gentleman, on 2 L nasal cannula, comfortable in no apparent distress. The patient has obvious emphysema involving the chest and the neck and the shoulders area laterally. The patient has a Pleurx catheter on the left. HEAD: Normocephalic. EYES: Normal reaction of pupils, equal size. NOSE: Clear with pink turbinates. THROAT: No erythema or exudates. NECK: No masses, no JVD. CHEST: No chest wall deformity. LUNGS: Equal air entry with few scattered rhonchi, crackles in the posterior bases. The patient is a Pleurx catheter on the left CVS: S1 and S2 normal with no audible murmur, irregular rhythm. Tachycardic. ABDOMEN: No hepatosplenomegaly, normal bowel sounds, no guarding or rigidity. SPINE: No scoliosis or deformity SKIN: No rashes CENTRAL NERVOUS SYSTEM: No focal deficits, tone is normal in all 4 extremities. EXTREMITIES: There is 2+ peripheral edema. No clubbing, no cyanosis. Peripheral pulses are intact. - Labs CBC & Chem 7: 08/29/20 06:58 08/30/20 08:46 Labs: Abnormal Lab Results - Last 24 Hours (Table) 08/29/20 08/30/20 08/30/20 Range/Units 20:10 06:11 08:46 Carbon Dioxide 31 H (22-30) mmol/L BUN 27 H (9-20) mg/dL POC Glucose (mg/dL) 126 H 102 H (75-99) mg/dL Microbiology - Last 24 Hours (Table) 08/22/20 11:30 Fungal Culture - Preliminary Pleural Fluid Aspergillus fumigatus 08/22/20 11:30 Acid Fast Bacilli Smear - Final Pleural Fluid Acid Fast Bacilli Culture - Preliminary Assessment and Plan Plan: 1 Acute hypoxic respiratory failure secondary to sepsis, septic shock, related to pneumonia, with chronic loculated effusions, possible empyema. Cultures positive for Aspergillus fumigatus. This could be a fungal empyema/infection, possible bilateral although this was only confirmed on the left side. The sputum is positive for Aspergillus fumigatus. The pleural fluid is also positive. The patient is currently on voriconazole. Ideally, he would require from surgical intervention including thoracoscopy/decortication. Nevertheless, the surgeon thought that this would be an extensive surgery for him and he de cided to proceed with Pleurx catheter insertion. The patient is post insertion of a Pleurx catheter. Amphotericin B was also infused into the pleural space. Surgery was performed yesterday. The left lung was trapped with fungal empyema and a Pleurx catheter was inserted. Currently the tube was unclamped and there is air and fluid coming out of the first place. The patient has developed some subcutaneous emphysema. There is positive air leak. 2 Bilateral hydropneumothorax, possible empyema, status post ultrasound-guided left-sided thoracentesis on 08/22/2020 with 45 ML's of cloudy white fluid removed, showing Aspergillus. Remains on voriconazole. 3 Recent admission for hypotension, dehydration secondary to nausea, vomiting, acute kidney injury with diarrhea. 4 Recent pulmonary infections with history of streptococcal pneumonia, empyema requiring chest tube placement in January 2020. 5 Chronic loculated pneumothoraces, posterior, with air-fluid seen on CAT scan imaging on the chest. Possibility of trapped lung, chronic scarring and possibility of empyema. 6 History of rheumatoid arthritis and rheumatoid lung disease. Currently not receiving any immunosuppressive agents 7 Recent history of acute kidney injury 8 Hypertension 9 Hypothyroidism 10 Previous history of DVT. 11 New-onset atrial fibrillation/flutter anticoagulated and the patient had failed cardioversion. The patient is currently on Eliquis and amiodarone 12 bilateral subcutaneous emphysema along with a hydropneumothorax on the left with positive air leak through the Pleurx catheter. He was currently attached to continuous suction Plan: Pleurx catheter placed on 08/29/2020 The plan is for installation of amphotericin B in the pleural space and continue the voriconazole. Continue voriconazole 400 mg every 12 hours. Daily chest x-rays The patient remains in atrial fibrillation. Seems to have failed cardioversion and the patient is currently in any amiodarone and Eliquis. Amiodarone is being given at a dose of 200 mg twice a day. He is also on metoprolol 25 mg by mouth 3 times a day. The Pleurx catheter attached to suction and monitor the air leak and outputs. The patient is currently on continuous suction. We'll continue to follow
[2020-08-30 11:34] LABS: Glucose,Whole Blood 100 mg/dL (75-99)
--- NOTE | 2020-08-30 15:41 | P.PN ---
Subjective Progress Note Date: 08/30/20 This is a 60-year-old male patient requesting my service with past medical history of rheumatoid arthritis on Arava that was diagnosed when he was 37 year old initially was started on Methotrexate that he could not tolerate then placed on Embrel but he developed side effects and finally was tried on Humira injection but he developed neurologic sided effects and was hospitaized at [facility] for quiet some time, rheumatoid lung disease, previous history of loculated empyema with chest tube placement in January 2020, hypertension, hypothyroidism, history of DVT, remote history of tobacco use and dependence, was recently hospitalized at [facility] after he was admitted for an acute kidney injury with significant metabolic acidosis associated with the elevated creatinine and elevated BUN and hypotension at that time he was seen and evaluated by pulmonary and critical care medicine, he had a central line placed and at that time, he was placed on Levophed drip he was p laced on IV anabiotic as well but the patient recovered very fast and he had an echocardiogram that showed normal LV function and segmental hypokinesia, he was supposed to follow-up with Dr. 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 vial gauger today and he had an episode when he was dizzy lightheaded and an episode of vomiting as well and he was sent to the emergency department for evaluation had a computed tomography of the chest as well as abdomen and pelvis that showed a thick walled pleural cavities posteriorly in the lower lungs with left-sided air-fluid level that has diminished in size from the prior computed tomography scan when he was in the hospital a few weeks back there is also associated compressive atelectasis and chronic consultation with multifocal areas of reticular nodular opacity in the upper lungs with a slight nodularity of the left upper lobe again this area of focal consultation has improved from the previous study that was done few weeks ago, patient was started on IV antibiotic with vancomycin and Zosyn as well as IV fluid, he was seen in consultation by pulmonary critical care in the emergency department as the patient blood pressure dropped and that he'll be transferred to the intensive care unit at this point in time I had long conve rsation with the patient and his at the bedside and the patient may need to have a chest tube placed for his possible right empyema, he did receive 3 L normal saline in the ER, and his blood pressure is marginal he may need to go on pressors if not recovered. 08/20:patient is sitting up in chair feeling about the same , complains of increased pain in the righ elbow, was seen earlier by pulmonary and the plan was to go for US-Guided left thoracenthesis due to to loculated left pleural effu unique and possible empyema, may need VATS, he denies any chest pain or shortness of breath, no abdominal pain nausea, vomiting or diarrhea, still have diarrhea negative for C.Diff, he seems to have accept to stay in the hospital this time as long as he needed to. 08/21: Patient sitting up in the recliner complaining of increased pain in his joints due to his rheumatoid arthritis with increased synovitis in both wrists both elbows and both shoulders he was started on hydrocortisone 100 mg IV push every 8 hours, to try to help with his blood pressure as well as his phonation, he is maintained on Manilla 5/325 mg one tablet orally every 6 hours as needed for pain control, patient denies any chest pain is less short of breath, he continues to have increased coughing with yellow from production of green phlegm production, he had no fever or chills at this time he continues to be on Levothroid drip, patient has appeared to have increased swelling in both lower extremities as well as both ankles, he is maintained on IV antibiotic in the form of vancomycin as well as cefepime, infectious disease is following, patient is scheduled to go for ultrasound guidance thoracentesis of the left loculated pleural effusion tomorrow morning. 08/22: Patient remains in the intensive care unit. He has been afebrile, heart rate 100, blood pressure 95/62, pulse ox 97% on 2 L nasal cannula. Hemoglobin 8.8 and leukocytosis resolved. Creatinine 0.76, electrolytes normal. Sputum culture is positive for Aspergillus species. Blood culture showing no growth. Patient underwent diagnostic thoracentesis with interventional radiology today with removal of 45 mL of cloudy white fluid. Chest x-ray reveals no complications following left thoracentesis. Fluid has been sent for culture and cytology. Consult in place for cardiothoracic surgery to evaluate for VATS with decortication. 08/23: Patient remains in the intensive care unit. He did receive 1 dose of IV Lasix this morning ordered by nephrology. He is followed by cardiothoracic surgery was no plan for surgical intervention. ID has recommended cefepime and vancomycin for now. Expect antifungal agent ended as well. Patient denies any significant shortness of breath. He is comfortable sitting in a chair. Patient is having minimal cough and minimal sputum. Patient is achieving 1000 ml on incentive spirometry. Culture and cytology reports remain pending from thoracentesis. Repeat chest x-ray reveals patchy peripheral lung with lung zone and lower lung zone infiltrates persist unchanged. Patient has been afebrile, heart rate in the 90s and low 100s, pulse ox 91 on room air. 23: Repeat chest x-ray reveals left-sided basilar loculated pneumothorax, stable. Bilateral lung infiltrates. Correlate for pneumonia and atelectasis. WBC 9, hemoglobin 9.5. Potassium 3.4 and will be replaced. Patient is continued on cefepime and vancomycin per Dr. Blanton's recommendations. Patient in reaching 1000 on incentive spirometry. Patient is scheduled to see Dr. Dubois tomorrow. Cefepime and vancomycin had been discontinued by Dr. Blanton and started on Voriconazole. 08/25: A-Team was called this morning regarding elevated heart rate, EKG was atrial flutter with RVR and 150 bpm and patient was transferred to ICU as an overflow for the cardiac stepdown unit, started on Cardizem drip and consult with cardiology. Heart rate was improved with Cardizem and patient also received amiodarone bolus 300 mg. Patient denies any worsening shortness of breath, cough or congestion. No chest pain or palpitations. Patient is resting comfortably. 09, hemoglobin 8.8, potassium 3.4 replaced. Creatinine 0.89. 08/26: Patient remains in the intensive care unit. He continues to be in atrial flutter with 21 conduction rate. He is on heparin drip and amiodarone. He is currently in and out of atrial flutter with RVR. Cardiology is following closely and may consider cardioversion tomorrow. WBC 16.6, hgb 9.8, plt 374, sodium 143, potassium 3.9, creatinine 0.88. He has been afebrile, heart rate has been at times marginal, pulse ox 90% on room air. Patient denies having any fever or chills, no shortness of breath, no cough. No chest pain. Patient is followed by cardiothoracic surgery and plan is for left-sided PleurX catheter placement which is scheduled for Saturday. 08/29: Patient is scheduled for PleurX catheter placement this afternoon. Cardiology may schedule him for cardioversion. Dr. Woodall is planning on oral antimicrobials at the time of discharge. Patient is bringing up quite a bit of sputum. He has been afebrile, heart rate 68, blood pressure 100/67, pulse ox 93% on 1 L nasal cannula. WBC 21, hemoglobin 9.6, platelet count 325. Potassium 3, BUN 28 creatinine 0.8. 08/30: Patient is status post PleurX catheter. Patient has been afebrile, heart rate 106, blood pressure 85/53. Pulse ox 97% on 2 L. Patient is known to be back in atrial fibrillation at rate of 122. He did go for cardioversion today for atrial flutter. Patient states he has a little pain in the side for which she is taking Manilla. Not bad today. Patient has subcutaneous edema to bilateral chest. He denies having any headache. BUN 27 creatinine 0.79. Blood sugar 90-126. Objective - Vital Signs Vital signs: Vital Signs Temp 97.9 F 08/30/20 11:14 Pulse 122 H 08/30/20 12:14 Resp 20 08/30/20 12:14 BP 85/53 08/30/20 12:14 Pulse Ox 97 08/30/20 11:14 Intake & Output 08/29/20 08/30/20 08/30/20 18:59 06:59 18:59 Intake Total 325 100 Output Total 1203 640 Balance -878 -640 100 Weight 100.4 kg Intake: IV 325 100 Output: Urine 1200 640 Estimated Blood Loss 3 Other: Voiding Method Toilet Toilet Urinal Urinal # Voids 1 1 - Exam Review of Systems Constitutional: Reports anorexia, Reports chronic pain, Reports fatigue, denies weakness, Reports weight loss Eyes: denies blurred vision, denies bulging eye, denies decreased vision, denies diplopia Ears, nose, mouth and throat: Denies dysphagia, Denies neck lump, Denies sore throat Respiratory: Reports dyspnea, Reports respiratory infections, Denies congestion, Denies cough with sputum, Denies home oxygen, Denies sleep apnea, Denies snoring, Denies wheezing Cardiac: No chest pain. No palpitations. No lower extremity edema. No syncopal episodes. Gastrointestinal: Reports bloating, Reports change in bowel habits, Reports diarrhea, Reports early satiety, Reports indigestion, Reports loss of appetite, Reports nausea, Reports vomiting, Denies abdominal pain, Denies belching, Denies heartburn, Denies hematemesis, Denies hematochezia, Denies melena Genitourinary: Denies dysuria, Denies nocturia Musculoskeletal: Denies myalgias Musculoskeletal: absent: ankle pain, ankle stiffness, ankle swelling, elbow pain, elbow stiffness, elbow swelling, foot pain, foot stiffness, foot swelling, hand pain, hand stiffness, hand swelling, hip pain, hip stiffness, hip swelling, knee pain, knee stiffness, knee swelling, shoulder pain, shoulder stiffness, shoulder swelling, wrist pain, wrist stiffness, wrist swelling Integumentary: Denies pruritus, Denies rash Neurological: Denies numbness, Denies weakness Psychiatric: Denies anxiety, Denies depression Endocrine: Denies fatigue, Denies weight change Physical examination: General: patient is 60 year old male patient resting in chair and appears to be in no acute distress. HEENT: head ia atraumatic normocephalic, Pupils were equal round reactive to light and accommodations , extra ocular muscle movement were intact, mucous membranes of the mouth are somewhat dry. Neck: supple no JVP. Chest: decreased breath sounds at he bases with few ronchi no expiratory wheezes no chest wall tendernes or intercostal retractions. Heart: first heart sound is depressed, second heart sound is normal tachycardic and irregular there is BIRD 2/6 located at the left sternal border. Abdomen: soft, mild tenderness to the left lower quadrant positive bowel sounds, no guarding or rebound tenderness, no hepatosplenomegaly. Extremities: there is no edema or calf tenderness DP+ 2 Bilaterally, there is what appears to be a charcot joint in the right foot form arch collapse. Neurologic examination: patient is awake , alert and oriented X 3 CN II-XII are grossly intact, muscle power 4/5 in bilateral upper and lower extremities, deep tendon reflexes were normal. - Labs CBC & Chem 7: 08/29/20 06:58 08/30/20 08:46 Labs: Abnormal Lab Results - Last 24 Hours (Table) 08/29/20 08/30/20 08/30/20 Range/Units 20:10 06:11 08:46 Carbon Dioxide 31 H (22-30) mmol/L BUN 27 H (9-20) mg/dL POC Glucose (mg/dL) 126 H 102 H (75-99) mg/dL 08/30/20 Range/Units 11:32 Carbon Dioxide (22-30) mmol/L BUN (9-20) mg/dL POC Glucose (mg/dL) 100 H (75-99) mg/dL Microbiology - Last 24 Hours (Table) 08/22/20 11:30 Fungal Culture - Preliminary Pleural Fluid Aspergillus fumigatus 08/22/20 11:30 Acid Fast Bacilli Smear - Final Pleural Fluid Acid Fast Bacilli Culture - Preliminary Assessment and Plan Assessment: 1. Acute hypoxemic respiratory failure secondary to loculated left-sided pleural effusion and fungal empyema with what appears to be recurrent pneumonia. Continue Voriconazole 200 mg every 12 hours IV piggyback per Dr. Blanton, interventional radiology performed ultrasound-guided thoracentesis of the left loculated pleural fluid for Gram stain and culture and cytology as well as LDH protein as well as pH for possible empyema. Culture positive for Aspergillus. Cardiothoracic surgery status post Pleurx catheter insertion. 2. Lactic acidosis. Resolved, repeat lactic acid is back to normal. 3. Sepsis with septic shock. Patient has been weaned off Levothroid drip. 4. Acute kidney injury due to poor oral intake of fluid as well as hypotension with acute tubular necrosis. Patient is on IV fluid, continue to monitor the patient CMP continue to monitor urine output. Nephrology is following. 5. Leukocytosis secondary to severe sepsis secondary to empyema. Continue IV fluid, continue IV antibiotic, repeat CBC tomorrow morning. 6. Atrial flutter with RVR. Status post cardioversion, converted back.Cardiology consult appreciated. 7. Rheumatoid arthritis and rheumatoid lung. Arava and Xeljanz had been on hold since October, patient was started on hydrocortisone 50 mg IV push every 8 hours. 8. History of empyema with Streptococcus requiring chest tube. 9. Hypertension and hypertensive cardiovascular disease. currently hypotensive. 10. Hypothyroidism . we will continue with Synthroid 150 mcg orally daily. 11. DVT prophylaxis. we will start Lovenox 40 mg SC daily and bilateral knee high Cecilio Hose 12. GI prophylaxis. we will continue with Protonix 40 mg IVP daily. 13. Prognosis continues to be guarded. Discharge plan: home Impression and plan of care have been directed as dictated by the signing physician. Yumiko Brown nurse practitioner acting as scribe for signing physician.
--- NOTE | 2020-08-30 16:11 | CDI ---
Documentation Clarification Form Date: 08/30/2020 03:14:41 PM From: Gloria Garcia RN, CCDS Admit Date: 08/19/2020 12:02:00 PM Patient Name: Lokesh Zee Visit Number: [id number] Discharge Date: ATTENTION: The Clinical Documentation Specialists (CDI) and [facility] Coding Staff appreciate your assistance in clarifying documentation. Please respond to the clarification below the line at the bottom and electronically sign. The CDI & [facility] Coding staff will review the response and follow-up if needed. Please note: Queries are made part of the Legal Health Record. If you have any questions, please contact the author of this message via ITS. Dr. Cody Prieto Atrial Flutter is documented on 08/30 as persistent atrial flutter with RVR. To accurately code the diagnosis further clarification is needed. History/Risk factors: Rheumatoid arthritis, rheumatoid lung, former smoker, Sepsis with Septic shock Clinical Indicators: 60-year-old male sent from Dr. GENE Carias's office to ED on 08/19 with complaints of shortness of breath and low pulse ox 70s. He was ruled in for pneumonia, sepsis with septic shock. 08/19 Vital signs on admission: 131/104 129 28 08/19 EKG/telemetry: Atrial flutter with variable AV block vent. rate 145 bpm 2 Pulmonary notes patient went into atrial fibrillation/flutter with a rapid ventricular response started on Cardizem at 5 mg per hour. 08/25 Cardiology consult: Atrial flutter with RVR 08/26 Cardiology progress notes: He continues to be in atrial flutter with 2:1 conduction rates around 150. Treatment: 08/25 Cardizem @5 mg per hr 08/25 Heparin drip (per orders) Eliquis 5 mg po bid 08/25 Amiodarone HCL 300 mg iv once than drip per orders 08/25-08/26 change to Cardarone 200 mg po bid 08/27 08/30 Electrical cardioversion In your professional opinion, in order to capture the severity of condition; can you please clarify the type of Atrial Flutter if known? Typical/Type I Atypical/Type II Other, please specify Unable to determine (Last Revision: October 2017) MTDD
[2020-08-30 16:42] LABS: Glucose,Whole Blood 121 mg/dL (75-99)
--- NOTE | 2020-08-30 16:47 | P.PN ---
Progress Note - Text Diagnosis Typical atrial flutter, persistent Successful electrical cardioversion Early recurrence of atrial flutter Plan EP study and ablation for typical atrial flutter on morning at 7 AM In the after midnight on Saturday Do not stop ELIQUIS
[2020-08-30] MEDS: SODIUM CHLORIDE 0.9% 1,000 ML IV SCH (17:15)
[2020-08-30] MEDS: LACTATED RINGERS 1,000 ML IV SCH (17:15)
[2020-08-30] MEDS: APIXABAN 5 MG TAB PO SCH (17:17)
[2020-08-30 20:17] LABS: Glucose,Whole Blood 144 mg/dL (75-99)
[2020-08-30] MEDS: HYDROcodone/APAP 5-325MG 1 EACH TAB PO PRN (20:51)
[2020-08-30] MEDS: ASCORBIC ACID 500 MG TAB PO SCH (20:51)
[2020-08-30] MEDS: CHOLECALCIFEROL 25 MCG (1000 IU) TABLET PO SCH (20:51)
[2020-08-30] MEDS: ASPIRIN 81 MG PO SCH (20:51)
--- NOTE | 2020-08-30 22:08 | PN ---
PROGRESS NOTE DATE OF SERVICE: 08/30/2020 REASON FOR FOLLOWUP: Aspergillus pneumonia and empyema. INTERVAL HISTORY: The patient is currently afebrile. The patient is breathing comfortably. The patient denies having any chest pain or any shortness of breath. Occasional cough. No abdominal pain or diarrhea. PHYSICAL EXAMINATION: Blood pressure 103/69 with a pulse of 94, temperature 98.9. He is 96% on 2 L nasal cannula. General description is a middle-aged male lying in bed in no distress. RESPIRATORY SYSTEM: Unlabored breathing with decreased breath sounds at the base. No wheeze. HEART: S1, S2. Regular rate and rhythm. ABDOMEN: Soft. No tenderness. LABS: BUN of 27, creatinine 0.79. DIAGNOSTIC IMPRESSION AND PLAN: Patient with aspergillus pneumonia and empyema, status post left PleurX catheter placement with irrigation of pleural space patient is covered with voriconazole; to continue and will monitor his clinical course closely. Continue with supportive care. MMODL / IJN: [id number] /
[2020-08-31 06:07] LABS: Glucose,Whole Blood 112 mg/dL (75-99)
[2020-08-31] MEDS: LEVOTHYROXINE 75 MCG TAB PO SCH (06:08)
[2020-08-31] MEDS: PANTOPRAZOLE 40 MG TABLET PO SCH (06:08)
--- NOTE | 2020-08-31 07:22 | XR ---
EXAMINATION TYPE: XR chest 2V DATE OF EXAM: 08/31/2020 COMPARISON: 08/30/2020 HISTORY: 60-year-old male effusion and trapped lung TECHNIQUE: PA and lateral views FINDINGS: Heart remains borderline enlarged. Patchy bilateral airspace opacities, right greater than left. Smal l left basilar hydropneumothorax is suggested, significantly change from prior with a Pleurx catheter . Extensive subcutaneous emphysema throughout limits the evaluation. Normal variant azygos fissure. IMPRESSION: 1. Severe bilateral subcutaneous emphysema persists. 2. Left-sided pleurX catheter with redemonstrated small left basilar hydropneumothorax. 3. Bilateral patchy infiltrates, right greater than left not significantly changed.
[2020-08-31] MEDS: IPRATROPIUM-ALBUTEROL 3 ML NEB INHALATION SCH ×3 (08:39→20:15)
--- NOTE | 2020-08-31 09:46 | P.PN ---
Subjective Progress Note Date: 08/31/20 Principal diagnosis: Bilateral pneumonia, bilateral hydropneumothorax, possible empyema, sputum culture preliminarily positive for Aspergillus species, acute hypoxic respiratory failure with sepsis on admission. Past medical history significant for multiple admissions for pneumonia with empyema on the left and previous bilateral chest tube placement in December 2019 with cultures positive for strep pneumonia, rheumatoid arthritis with rheumatoid lung, hypertension, hypothyroidism, DVT, previous tobacco dependence, family history of lung cancer, and recent hospitalization for hypotension, dehydration, acute kidney injury requiring dialysis. POD #2 left Pleurx catheter placement with irrigational pleural space and installation of amphotericin B solution under fluoroscopic guidance. POD #9 left-sided thoracentesis by interventional radiology. The patient was seen on follow-up today 08/31/2020 at his bedside on the cardiac stepdown unit. He is awake, alert and oriented 3 and is sitting up to the bedside chair. The patient denies any complaints of pain or shortness of breath at this time. He has some subcutaneous emphysema present to his neck, bilateral upper extremities anterior and posterior chest. The patient reports that the subcutaneous emphysema is somewhat improved today and his opinion. He denies any distress or complaints of difficulty with swallowing and no evidence of stridor. Oxygen saturation is 95% on 2 L nasal cannula and he is achieving 1250 mL on his incentive spirometry. Currently on Vfend for anti-fungal coverage managed by infectious disease. He is also on Solu-Cortef 50 mg IV every 8 hours managed by pulmonary critical care medicine. A chest x-ray was completed this morning which continues to show severe bilateral subcutaneous emphysema, left- sided Pleurx catheter with small left basilar hydropneumothorax and bilateral patchy infiltrates right greater than left. Left chest Pleurx catheter remains to bedside Deepstep system on continuous low wall suction -20 cm H2O. Continuous air leak is present. Draining scant thin serosanguineous cloudy drainage with 280 mL output in the last 24 hours. He has been afebrile the last 24 hours. He underwent a cardioversion yesterday performed by Dr. Prieto, remote telemetry showing atrial fibrillation/atrial flutter heart rate 85 BPM. Objective - Vital Signs Vital signs: Vital Signs Temp 96 F L 08/31/20 08:28 Pulse 110 H 08/31/20 08:28 Resp 16 08/31/20 08:28 BP 117/80 08/31/20 04:00 Pulse Ox 98 08/31/20 08:28 Intake & Output 08/30/20 08/31/20 08/31/20 18:59 06:59 18:59 Intake Total 1470 Output Total 486 1765 Balance 984 -1765 Weight 99.7 kg Intake: IV 510 LR 160 Voriconazole 400 mg In 250 Sodium Chloride 0.9% 250 ml @ 125 mls/hr IVPB Q12HR [facility] Rx#:[id number] Oral 960 Output: Chest Tube Drainage 186 60 Left Mid-Axillary Chest 186 60 Urine 300 1705 Other: Voiding Method Toilet Urinal - Constitutional General appearance: Present: cooperative, no acute distress, obese - EENT Eyes: Present: normal appearance. Absent: scleral icterus ENT: Present: hearing grossly normal - Neck Details: Neck with subcutaneous emphysema present. Neck: Present: normal ROM. Absent: stridor - Respiratory Details: Lung sounds with few scattered expiratory wheezes, diminished to his bilateral bases left greater than right. Respirations are symmetrical and nonlabored. Oxygen saturation are 95% on 2 L nasal cannula. Achieving 1250 mL on his incentive spirometry. Left Pleurx catheter in place to low continuous wall suction -20 cm H2O. Continuous air leak is present. Draining thin serosanguineous cloudy drainage with 280 mL output in the last 24 hours. - Cardiovascular Details: Irregular rhythm and controlled rate. S1 and S2 present, negative for S3, gallop or murmur. +1 edema to his bilateral lower extremities. Knee-high BRISA hose and sequential compression devices in place was bilateral lower extremities. - Gastrointestinal Gastrointestinal Comment(s): Abdomen is soft, nontender and nondistended. Active bowel sounds present in all 4 abdominal quadrants. No guarding or rigidity. Tolerating oral intake. - Genitourinary Genitourinary Comment(s): Continues to void. - Integumentary Integumentary Comment(s): Skin is warm and dry. No clubbing or cyanosis is present. Dressing clean, dry and in place to left chest Pleurx catheter. Subcutaneous emphysema present to his neck, bilateral upper extremities. Anterior and posterior chest. - Neurologic Neurologic: Present: CNII-XII intact. Absent: focal deficits - Musculoskeletal Musculoskeletal: Present: gait normal, strength equal bilaterally - Psychiatric Psychiatric: Present: A&O x's 3, appropriate affect, intact judgment & insight - Allied health notes Allied health notes reviewed: nursing - Labs CBC & Chem 7: 08/29/20 06:58 08/30/20 08:46 Labs: Abnormal Lab Results - Last 24 Hours (Table) 08/30/20 08/30/20 08/30/20 Range/Units 11:32 16:38 20:15 POC Glucose (mg/dL) 100 H 121 H 144 H (75-99) mg/dL 08/31/20 Range/Units 06:07 POC Glucose (mg/dL) 112 H (75-99) mg/dL Microbiology - Last 24 Hours (Table) 08/22/20 11:30 Fungal Culture - Preliminary Pleural Fluid Aspergillus fumigatus - Imaging and Cardiology Chest x-ray: report reviewed, image reviewed Assessment and Plan Assessment: 1. Bilateral pneumonia, bilateral hydropneumothorax, possible empyema, sputum culture preliminarily positive for Aspergillus species, status post left-sided thoracentesis 2. Acute hypoxic respiratory failure with sepsis on admission 3. Multiple admissions for pneumonia with empyema on the left and previous bilateral chest tube placement in December 2019 with cultures positive for strep pneumonia 4. Rheumatoid arthritis with rheumatoid lung 5. Hypertension, currently hypotensive, requiring pressors on admission 6. Hypothyroidism 7. History of DVT 8. Previous tobacco dependence 9. Family history of lung cancer 10. Recent hospitalization for hypotension, dehydration, acute kidney injury requiring dialysis 11. New-onset atrial fibrillation/atrial flutter with rapid ventricular response, currently on amiodarone by mouth and metoprolol tartrate 12. Subcutaneous emphysema to his neck, bilateral upper extremities, anterior posterior chest with positive air leak through the Pleurx catheter, currently on continuous low wall suction Plan: 1. Keep Pleurx catheter connected to low continuous wall suction -20 cm H2O. Continue to monitor for airleak resolution and decrease in subcutaneous emphysema. 2. Continue to follow daily chest x-rays. 3. Encourage incentive spirometry 10 times every hour while awake. Bro nchodilators per pulmonary for/critical care medicine. 4. Currently on Vfend managed by infectious disease. Amphotericin B pleural was drained yesterday 08/30/2020. 5. Increase activity as tolerated. 6. Medical management and other comorbidities per primary care service. 7. Reinforced Pleurx catheter teaching with the patient and his present. 8. Cytology results are pending. 9. More recommendations to follow based on patient's clinical course. Time with Patient: Greater than 30
[2020-08-31] MEDS: HYDROCORTISONE SUCCINATE 100 MG/2 ML VIAL IV SCH ×2 (09:58→15:27)
[2020-08-31] MEDS: AMIODARONE 200 MG TAB PO SCH ×2 (09:58→20:18)
[2020-08-31] MEDS: METOPROLOL TARTRATE 25 MG TAB PO SCH ×3 (09:59→20:19)
[2020-08-31] MEDS: APIXABAN 5 MG TAB PO SCH ×2 (09:59→20:19)
[2020-08-31] MEDS: FUROSEMIDE 10 MG/ML 4 ML VIAL IV SCH (09:59)
[2020-08-31] MEDS: TRIAMCINOLONE 0.1% CREAM 80 GM TUBE TOPICAL SCH ×2 (10:00→21:46)
[2020-08-31] MEDS: VORICONAZOLE 400 MG in SODIUM CHLORIDE 0.9% 250 ML IVPB SCH ×2 (10:00→21:46)
[2020-08-31 11:44] LABS: Glucose,Whole Blood 167 mg/dL (75-99)
[2020-08-31] MEDS: LACTATED RINGERS 1,000 ML IV SCH (11:50)
--- NOTE | 2020-08-31 14:24 | P.PN ---
Subjective Progress Note Date: 08/31/20 Principal diagnosis: Pneumonia, hydropneumothorax, septic shock 60-year-old white male patient, with past medical history of rheumatoid arthritis, previous history of rheumatoid lung disease on Arava, previous episodes of pneumonia and history of loculated empyema requiring chest tube placement back in January 2020 with pleural fluid cultures positive for streptococcal pneumonia. Other medical history includes hypertension, hypothyroidism and previous history of DVT. Patient had a recent hospitalization from August 08 through 08/11/2020 hypotension, dehydration related to nausea vomiting diarrhea, acute kidney injury. Patient received antibiotics in the form of Zosyn and Levaquin for possibility of pneumonia, he is chest x-ray showed cranial perihilar pulmonary infiltrates with increased interstitial changes at the lung bases and was thought to be related to a combi nation of rheumatoid lung and chronic scarring. His last CT of the chest was on 07/19/2020 showing chronic changes to lower lungs, persistent irregular thick- walled pleural spaces in the posterior lung bases containing fluid and air with adjacent anterior lung with chronic consolidation or atelectasis. On 08/19/2020 patient came into the emergency department from Dr. GENE Carias's office where he w as being seen for a regular follow-up appointments. He was noted to have low pulse ox 70s and was sent in to the emergency department for evaluation. He has been having cough with yellow and sometimes blood-tinged sputum, appears amounts, denies any fever, COVID 19 was found to be negative, chest x-ray showed perihilar and basilar infiltrates without significant change from previous chest x-ray on 08/09/2020. Lab data showed leukocytosis with white blood cell count of 19.1, hemoglobin of 12.1, INR 1.5, sodium is 135, potassium is 3.9, chloride is 102, CO2 is 19, creatinine is 1.32, which has actually improved since his discharge from the hospital on 08/11/2020 when he was at 1.84. Lactic acid was elevated at 3.7, patient was given a total of 2 L in fluid boluses, troponin was negative at less than 0.012. Urinalysis showed no evidence of infection. CT chest showed thick-walled pleural cavities posteriorly in the lower lungs with left-sided air-fluid level with left-sided pleural fluid diminished most recent CT from 07/19/2020. There is associated compressive atelectasis and/or chronic consolidation. Persistent as it is lobe fissure, multifocal areas of reticular nodular opacity in the upper lungs remain present with slight nodularity in the left upper lobe. There is a focal consolidation improved from most recent study with some residual areas of scarring. We will emergency department patient became hypotensive with a blood pressure in the 70s, slightly tachycardic r emains in sinus mechanism, he is receiving his third liter bolus, his lactic acid did respond and improved he was started on antibiotics in the form of Zosyn and vancomycin The patient is seen today August 20 2020 in the intensive care unit. He is currently sitting up in a chair at the bedside. Awake and alert in no acute distress. Maintaining O2 saturations in the 90s on 2 L/m per nasal cannula. He did require a small dose of norepinephrine currently on 0.05 mcg/kg/m. He has lactated Ringer's at 100 MLS per hour. He remains on vancomycin and cefepime. Chest x-ray continues to show the left lower lobe effusion. White count 11.7. Hemoglobin 9.7. Sodium 135. Potassium 3.6. Creatinine 1.00. Blood cultures reveal no growth to date. Reevaluated today on 08/21/2020, remains in the ICU, still on norepinephrine at 0.04 mcg/kg/m. On LR at 1 25 mL per hour. On vancomycin and cefepime empirically, blood pressure remains marginal, went ahead and recommended Solu- Cortef 100 mg IV push every 8 hours and hopefully will be able to discontinue norepinephrine today. His IV fluid is cut down to KVO. Given 20 mg of Lasix IV push, and I have recommended that we monitor the patient in the ICU for the next 24 hours. Chest x-ray is basically the same, continues to show chronic finding, difficult to exclude underlying pneumonia/empyema. CT of the chest on admission was also reviewed, difficult to rule out underlying empyema. Clinically the patient is feeling better except for generally weak. WBC count is 12.5 hemoglobin is 9.9. Normal renal profile is normal blood cultures are negative so far. Sputum cultures are also negative so far. On 08/22/2020 patient seen in follow-up in the intensive care unit, he is awake and alert, oriented 3, sitting up in the recliner, currently on 2 L of oxygen his pulse ox is 95-100%, his been afebrile, hemodynamically he is stable, he is not on any vasopressor support. His lactate Ringer's running at 20 ML per hour, antibiotics include cefepime and vancomycin, blood pressure has been stable, so far blood and sputum cultures are negative, he denies chest pain, his breathing is comfortable. Today's labs have been reviewed, showing white blood cell count trending down, 10.2 today, hemoglobin is 8.8, electrolytes and renal profile are unremarkable. Serum cortisol level came back at 3, patient continues on stress doses of hydrocortisone 100 mg every 8 hours. Patient has not been stable, we'll consult interventional radiology for ultrasound-guided left thoracentesis On 08/23/2020 patient seen in follow-up in the intensive care unit, he is calm and comfortable, awake and alert, sitting up in the recliner, currently on room air with a pulse ox of 93-94%, his been afebrile, hemodynamically he is been stable, he is on IV LR at 20 ML per hour, no other drips. He is on cefepime and vancomycin for antibiotic coverage, yesterday he underwent left thoracentesis with removal of 43 mL of pleural fluid which was sent for cultures. Tolerated procedure well. His pleural fluid analysis revealed total fluid protein of 1.3 g, and fluid LDH of greater than 4500 consistent with exudative fluid. His microbiology data has been reviewed showing Aspergillus fumigate is in the sputum, his pleural fluid cultures are pending at this time, the cultures have shown no growth, hemodynamically has been stable, he is breathing easier, he still has cough mostly in the morning and the amount of secretions his bringing up is decreasing in amount. Lung sounds revealed a few scattered wheezes, and a few rhonchi at bilateral bases. Is tolerating oral intake. No abdominal pain, no nausea or vomiting, today's labs have been reviewed, white blood cell count is 11.2, hemoglobin is 9.1, sodium is 137, potassium is 4.0, chloride is 109, BUN is 15, creatinine 0.80. No acute events overnight. He is working on incentive spirometer, he is achieving 1000 today On 08/24/2020 patient seen in follow-up on medical surgical floor. He is awake and alert, in no acute distress, breathing comfortably, denies any chest pain, room air pulse ox is 94%, no fever or chills, today's chest x-ray shows left basilar loculated pneumothorax, stable in appearance, bilateral lung infiltrates. His pleural fluid cultures so far showing Aspergillus species, as does his sputum culture. Blood culture show no growth. The cervix is following, current antibiotic coverage includes cefepime, vancomycin has been discontinued, she received 1 dose of IV Lasix per nephrology. He has produced 2500 in urine output, and he is in -1.6 L over the last 24 hours, however he still has significant lower extremity edema On 08/26/2020 patient seen in follow-up in the intensive care unit, he is awake and alert, in no acute distress, on room air, his pulse ox is 93%, currently on amiodarone at 0.5 mg/m, heparin infusion per weight based protocol, 0.9 normal saline at a rate of 10 ML per hour, his heart rate is still poorly controlled, he remains in atrial flutter with a rate of 140 BPM. He's had no fever or chills, he status post ultrasound-guided thoracentesis of the left pleural space with removal of 45 mL of pleural fluid in the cultures were positive for Aspergillus. Infectious disease service is following, and voriconazole was started. Clinically patient denies any shortness of breath, no cough, no compressive chest pain, we discussed the case with the cardiothoracic surgery yesterday, and plan is to proceed with the placement of Pleurx catheter into the left pleural space today. On 08/31/2020 patient seen in follow-up. Sitting up in the recliner, breathing comfortably, his on 2 L of oxygen pulse ox of 90%, he's been afebrile, morgan bcutaneous emphysema slightly worsened especially involving right upper chest area, left chest Pleurx catheter remains in place, connected to Pleur-evac to suction and there is some intermittent air leak still present, his chest x-ray shows severe bilateral septic hence emphysema, small left basilar hydropneumothorax, and bilateral patchy infiltrates right greater than left not significantly changed, patient remains on voriconazole, and his left chest pleural fluid fungal culture was positive for Aspergillus fumigatus. Total fluid cytology was not sent however pathology lab still has the pleural fluid which we will request cytology. Objective - Vital Signs Vital signs: Vital Signs Temp 98.1 F 08/31/20 12:19 Pulse 97 08/31/20 12:19 Resp 16 08/31/20 12:19 BP 106/65 08/31/20 12:19 Pulse Ox 98 08/31/20 12:19 Intake & Output 08/30/20 08/31/20 08/31/20 18:59 06:59 18:59 Intake Total 1470 472 Output Total 486 1765 800 Balance 984 -1765 -328 Weight 99.7 kg Intake: IV 510 LR 160 Voriconazole 400 mg In 250 Sodium Chloride 0.9% 250 ml @ 125 mls/hr IVPB Q12HR [facility] Rx#:[id number] Oral 960 472 Output: Chest Tube Drainage 186 60 50 Left Mid-Axillary Chest 186 60 50 Urine 300 1705 750 Other: Voiding Method Toilet Toilet Urinal Urinal - Exam GENERAL EXAM: Alert, pleasant, 60-year-old male patient, on room air with a pulse ox of 94%, currently sitting up in chair at the bedside, comfortable in no apparent distress. HEAD: Normocephalic/atraumatic. EENT: PERRLA, EOMI, nonicteric. Moist mucous membranes, no neck masses, no JVD, no stridor. CHEST: No chest wall deformity. Symmetrical expansion. Left chest Pleurx catheter connected to Pleur-evac, to wall suction, with intermittent air leak present, with a total of 246 mL serosanguineous output in the Pleur-evac LUNGS: Bibasilar rhonchi, and a few scattered wheezes CVS: Regular rate and rhythm, normal S1 and S2, no gallops, no murmurs, no rubs ABDOMEN: Soft, nontender. No hepatosplenomegaly, normal bowel sounds, no guarding or rigidity. EXTREMITIES: No clubbing, 1+ lower extremity edema, no cyanosis, 2+ pulses and upper and lower extremities. MUSCULOSKELETAL: Muscle strength and tone normal. SPINE: No scoliosis or deformity SKIN: No rashes CENTRAL NERVOUS SYSTEM: Alert and oriented -3. No focal deficits, tone is normal in all 4 extremities. PSYCHIATRIC: Alert and oriented -3. Appropriate affect. Intact judgment and insight. - Labs CBC & Chem 7: 08/29/20 06:58 08/30/20 08:46 Labs: Abnormal Lab Results - Last 24 Hours (Table) 08/30/20 08/30/20 08/31/20 Range/Units 16:38 20:15 06:07 POC Glucose (mg/dL) 121 H 144 H 112 H (75-99) mg/dL 08/31/20 Range/Units 11:36 POC Glucose (mg/dL) 167 H (75-99) mg/dL Assessment and Plan Plan: Assessment: #1. Acute hypoxic respiratory failure related to sepsis, septic shock, related to pneumonia, with chronic loculated effusions, rule out possibility of empyema. COVID 19 was ruled out per PCR. Pleural fluid culture positive for Aspergillus fumigators, patient is on voriconazole, ideally patient would benefit from surgical intervention including thoracoscopy/decortication however this could be an extensive surgery for him in patient had the left chest Pleurx catheter inserted for drainage Patient is post insertion of a left-sided Pleurx catheter and instillation of amphotericin B into the pleural space, the left lung was trapped with fungal empyema, patient has intermittent air leak, and there is a subcutaneous emphysema involving neck, upper chest #2. Bilateral hydropneumothorax, rule out possibility of empyema, status post ultrasound-guided left-sided thoracentesis on 08/22/2020 would removal of 45 mL of cloudy white fluid, which was exudative in nature, pleural fluid culture only showing Aspergillus, antibiotic coverage is with cefepime and vancomycin, it service is following, CT surgery has no plans for surgical intervention at this time. on 08/31/2020 patient is on voriconazole for evidence of Aspergillus fumigators in the pleural fluid #3. Recent admission to the hospital for hypotension, dehydration related to nausea vomiting diarrhea, acute kidney injury #4. Recurrent pulmonary infections, with history of streptococcal pneumonia and empyema requiring chest tube placement in January 2020 #5. Chronic loculated pneumothoraces, posterior, with air-fluid level seen on the CT imaging of the chest, the possibility of trapped lung, chronic scarring and possibility of empyema needs to be ruled out #6. Elevated d-dimer with no CT evidence for pulmonary embolism #7. History of rheumatoid arthritis and rheumatoid lung disease on Arava #8. Recent history of acute kidney injury, and admission lab work today shows improvement in his renal function #9. Hypertension #10. Hypothyroidism #11. Previous history of foot infections requiring antibiotics #12. Previous history of DVT Plan: Continue current antibiotics, patient still has intermittent air leak on the left Pleurx catheter chest tube, fungal cultures poor positive for Aspergillus. No fever or chills, no worsening dyspnea, subcutaneous emphysema is slightly increased over the right chest, we'll continue the left chest tube to suction. We called pathology and requested the fluid collected from 08/22/2020 from left pleural space to be sent for cytology, we will probably repeat cytology from the pleural fluid in the next couple of days to rule out possibility of malignancy. We'll continue to follow closely with CT surgery. Patient continues on amiodarone and Eliquis, unfortunately patient did not stay in sinus rhythm after his cardioversion, cardiology is following, and is planning on of the cardioversion I performed a history & physical examination of the patient and discussed their management with my nurse practitioner, Марина Thompson. I reviewed the nurse practitioner's note and agree with the documented findings and plan of care. Lung sounds are positive for diminished breath sounds. The findings and the impression was discussed with the patient. I attest to the documentation by the nurse practitioner. Time with Patient: Less than 30
--- NOTE | 2020-08-31 15:39 | P.PN ---
Subjective Progress Note Date: 08/31/20 This is a 60-year-old male patient requesting my service with past medical history of rheumatoid arthritis on Arava that was diagnosed when he was 37 year old initially was started on Methotrexate that he could not tolerate then placed on Embrel but he developed side effects and finally was tried on Humira injection but he developed neurologic sided effects and was hospitaized at [facility] for quiet some time, rheumatoid lung disease, previous history of loculated empyema with chest tube placement in January 2020, hypertension, hypothyroidism, history of DVT, remote history of tobacco use and dependence, was recently hospitalized at [facility] after he was admitted for an acute kidney injury with significant metabolic acidosis associated with the elevated creatinine and elevated BUN and hypotension at that time he was seen and evaluated by pulmonary and critical care medicine, he had a central line placed and at that time, he was placed on Levophed drip he was p laced on IV anabiotic as well but the patient recovered very fast and he had an echocardiogram that showed normal LV function and segmental hypokinesia, he was supposed to follow-up with Dr. 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 and he had an episode when he was dizzy lightheaded and an episode of vomiting as well and he was sent to the emergency department for evaluation had a computed tomography of the chest as well as abdomen and pelvis that showed a thick walled pleural cavities posteriorly in the lower lungs with left-sided air-fluid level that has diminished in size from the prior computed tomography scan when he was in the hospital a few weeks back there is also associated compressive atelectasis and chronic consultation with multifocal areas of reticular nodular opacity in the upper lungs with a slight nodularity of the left upper lobe again this area of focal consultation has improved from the previous study that was done few weeks ago, patient was started on IV antibiotic with vancomycin and Zosyn as well as IV fluid, he was seen in consultation by pulmonary critical care in the emergency department as the patient blood pressure dropped and that he'll be transferred to the intensive care unit at this point in time I had long conve rsation with the patient and his at the bedside and the patient may need to have a chest tube placed for his possible right empyema, he did receive 3 L normal saline in the ER, and his blood pressure is marginal he may need to go on pressors if not recovered. 08/20:patient is sitting up in chair feeling about the same , complains of increased pain in the righ elbow, was seen earlier by pulmonary and the plan was to go for US-Guided left thoracenthesis due to to loculated left pleural effu unique and possible empyema, may need VATS, he denies any chest pain or shortness of breath, no abdominal pain nausea, vomiting or diarrhea, still have diarrhea negative for C.Diff, he seems to have accept to stay in the hospital this time as long as he needed to. 08/21: Patient sitting up in the recliner complaining of increased pain in his joints due to his rheumatoid arthritis with increased synovitis in both wrists both elbows and both shoulders he was started on hydrocortisone 100 mg IV push every 8 hours, to try to help with his blood pressure as well as his phonation, he is maintained on Flatwoods 5/325 mg one tablet orally every 6 hours as needed for pain control, patient denies any chest pain is less short of breath, he continues to have increased coughing with yellow from production of green phlegm production, he had no fever or chills at this time he continues to be on Levothroid drip, patient has appeared to have increased swelling in both lower extremities as well as both ankles, he is maintained on IV antibiotic in the form of vancomycin as well as cefepime, infectious disease is following, patient is scheduled to go for ultrasound guidance thoracentesis of the left loculated pleural effusion tomorrow morning. 08/22: Patient remains in the intensive care unit. He has been afebrile, heart rate 100, blood pressure 95/62, pulse ox 97% on 2 L nasal cannula. Hemoglobin 8.8 and leukocytosis resolved. Creatinine 0.76, electrolytes normal. Sputum culture is positive for Aspergillus species. Blood culture showing no growth. Patient underwent diagnostic thoracentesis with interventional radiology today with removal of 45 mL of cloudy white fluid. Chest x-ray reveals no complications following left thoracentesis. Fluid has been sent for culture and cytology. Consult in place for cardiothoracic surgery to evaluate for VATS with decortication. 08/23: Patient remains in the intensive care unit. He did receive 1 dose of IV Lasix this morning ordered by nephrology. He is followed by cardiothoracic surgery was no plan for surgical intervention. ID has recommended cefepime and vancomycin for now. Expect antifungal agent ended as well. Patient denies any significant shortness of breath. He is comfortable sitting in a chair. Patient is having minimal cough and minimal sputum. Patient is achieving 1000 ml on incentive spirometry. Culture and cytology reports remain pending from thoracentesis. Repeat chest x-ray reveals patchy peripheral lung with lung zone and lower lung zone infiltrates persist unchanged. Patient has been afebrile, heart rate in the 90s and low 100s, pulse ox 91 on room air. 23: Repeat chest x-ray reveals left-sided basilar loculated pneumothorax, stable. Bilateral lung infiltrates. Correlate for pneumonia and atelectasis. WBC 9, hemoglobin 9.5. Potassium 3.4 and will be replaced. Patient is continued on cefepime and vancomycin per Dr. Blanton's recommendations. Patient in reaching 1000 on incentive spirometry. Patient is scheduled to see Dr. Dubois tomorrow. Cefepime and vancomycin had been discontinued by Dr. Blanton and started on Voriconazole. 08/25: A-Team was called this morning regarding elevated heart rate, EKG was atrial flutter with RVR and 150 bpm and patient was transferred to ICU as an overflow for the cardiac stepdown unit, started on Cardizem drip and consult with cardiology. Heart rate was improved with Cardizem and patient also received amiodarone bolus 300 mg. Patient denies any worsening shortness of breath, cough or congestion. No chest pain or palpitations. Patient is resting comfortably. 09, hemoglobin 8.8, potassium 3.4 replaced. Creatinine 0.89. 08/26: Patient remains in the intensive care unit. He continues to be in atrial flutter with 21 conduction rate. He is on heparin drip and amiodarone. He is currently in and out of atrial flutter with RVR. Cardiology is following closely and may consider cardioversion tomorrow. WBC 16.6, hgb 9.8, plt 374, sodium 143, potassium 3.9, creatinine 0.88. He has been afebrile, heart rate has been at times marginal, pulse ox 90% on room air. Patient denies having any fever or chills, no shortness of breath, no cough. No chest pain. Patient is followed by cardiothoracic surgery and plan is for left-sided PleurX catheter placement which is scheduled for Saturday. 08/29: Patient is scheduled for PleurX catheter placement this afternoon. Cardiology may schedule him for cardioversion. Dr. Woodall is planning on oral antimicrobials at the time of discharge. Patient is bringing up quite a bit of sputum. He has been afebrile, heart rate 68, blood pressure 100/67, pulse ox 93% on 1 L nasal cannula. WBC 21, hemoglobin 9.6, platelet count 325. Potassium 3, BUN 28 creatinine 0.8. 08/30: Patient is status post PleurX catheter. Patient has been afebrile, heart rate 106, blood pressure 85/53. Pulse ox 97% on 2 L. Patient is known to be back in atrial fibrillation at rate of 122. He did go for cardioversion today for atrial flutter. Patient states he has a little pain in the side for which she is taking Flatwoods. Not bad today. Patient has subcutaneous edema to bilateral chest. He denies having any headache. BUN 27 creatinine 0.79. Blood sugar 90-126. 08/31: Patient denies chest pain or shortness of breath. He is reaching 1250 on IS. PleurX draining small amount of sanguinous fluid. Patient is in atrial flutter. Dr. Prieto is planning for EP study and ablation on and plan to continue eliquis. Patient is also on Lopressor 25 mg 3 times daily. Patient has been afebrile, heart rate 97, blood pressure 106/65, pulse ox 98% on room air. Blood sugars running between 112 and 67. Patient is covered with Voriconazole. Lac-Hydrin added for bilateral legs. Objective - Vital Signs Vital signs: Vital Signs Temp 98.1 F 08/31/20 12:19 Pulse 97 08/31/20 12:19 Resp 16 08/31/20 12:19 BP 106/65 08/31/20 12:19 Pulse Ox 98 08/31/20 12:19 Intake & Output 08/30/20 08/31/20 08/31/20 18:59 06:59 18:59 Intake Total 1470 472 Output Total 486 1765 800 Balance 984 -1765 -826 Weight 99.7 kg Intake: IV 510 LR 160 Voriconazole 400 mg In 250 Sodium Chloride 0.9% 250 ml @ 125 mls/hr IVPB Q12HR [facility] Rx#:[id number] Oral [id number] 472 Output: Chest Tube Drainage 186 60 50 Left Mid-Axillary Chest 186 60 50 Urine 300 1705 750 Other: Voiding Method Toilet Toilet Urinal Urinal - Exam Review of Systems Constitutional: Reports anorexia, Reports chronic pain, Reports fatigue, denies weakness, Reports weight loss Eyes: denies blurred vision, denies bulging eye, denies decreased vision, denies diplopia Ears, nose, mouth and throat: Denies dysphagia, Denies neck lump, Denies sore throat Respiratory: Reports dyspnea, Reports respiratory infections, Denies congestion, Denies cough with sputum, Denies home oxygen, Denies sleep apnea, Denies snoring, Denies wheezing Cardiac: No chest pain. No palpitations. No lower extremity edema. No syncopal episodes. Gastrointestinal: Reports bloating, Reports change in bowel habits, Reports diarrhea, Reports early satiety, Reports indigestion, Reports loss of appetite, Reports nausea, Reports vomiting, Denies abdominal pain, Denies belching, Denies heartburn, Denies hematemesis, Denies hematochezia, Denies melena Genitourinary: Denies dysuria, Denies nocturia Musculoskeletal: Denies myalgias Musculoskeletal: absent: ankle pain, ankle stiffness, ankle swelling, elbow pain, elbow stiffness, elbow swelling, foot pain, foot stiffness, foot swelling, hand pain, hand stiffness, hand swelling, hip pain, hip stiffness, hip swelling, knee pain, knee stiffness, knee swelling, shoulder pain, shoulder stiffness, shoulder swelling, wrist pain, wrist stiffness, wrist swelling Integumentary: Denies pruritus, Denies rash Neurological: Denies numbness, Denies weakness Psychiatric: Denies anxiety, Denies depression Endocrine: Denies fatigue, Denies weight change Physical examination: General: patient is 60 year old male patient resting in chair and appears to be in no acute distress. HEENT: head ia atraumatic normocephalic, Pupils were equal round reactive to light and accommodations , extra ocular muscle movement were intact, mucous membranes of the mouth are somewhat dry. Neck: supple no JVP. Chest: decreased breath sounds at he bases no expiratory wheezes no chest wall tendernes or intercostal retractions. PleurX cath in placePositive subcutaneous emphysema. Heart: first heart sound is depressed, second heart sound is normal tachycardic and irregular there is BIRD 2/6 located at the left sternal border. Abdomen: soft, mild tenderness to the left lower quadrant positive bowel sounds, no guarding or rebound tenderness, no hepatosplenomegaly. Extremities: there is no edema or calf tenderness DP+ 2 Bilaterally, there is what appears to be a charcot joint in the right foot form arch collapse. Neurologic examination: patient is awake , alert and oriented X 3 CN II-XII are grossly intact, muscle power 4/5 in bilateral upper and lower extremities, deep tendon reflexes were normal. - Labs CBC & Chem 7: 08/29/20 06:58 08/30/20 08:46 Labs: Abnormal Lab Results - Last 24 Hours (Table) 08/30/20 08/30/20 08/31/20 Range/Units 16:38 20:15 06:07 POC Glucose (mg/dL) 121 H 144 H 112 H (75-99) mg/dL 08/31/20 Range/Units 11:36 POC Glucose (mg/dL) 167 H (75-99) mg/dL Assessment and Plan Assessment: 1. Acute hypoxemic respiratory failure secondary to loculated left-sided pleural effusion and fungal empyema with what appears to be recurrent pneumonia. Continue Voriconazole 200 mg every 12 hours IV piggyback per Dr. Blanton, interventional radiology performed ultrasound-guided thoracentesis of the left loculated pleural fluid for Gram stain and culture and cytology as well as LDH protein as well as pH for possible empyema. Culture positive for Aspergillus. Cardiothoracic surgery status post Pleurx catheter insertion. 2. Lactic acidosis. Resolved, repeat lactic acid is back to normal. 3. Sepsis with septic shock. Patient has been weaned off Levothroid drip. 4. Acute kidney injury due to poor oral intake of fluid as well as hypotension with acute tubular necrosis. Patient is on IV fluid, continue to monitor the patient CMP continue to monitor urine output. Nephrology is following. 5. Leukocytosis secondary to severe sepsis secondary to empyema. Continue IV fluid, continue IV antibiotic, repeat CBC tomorrow morning. 6. Persistent atrial flutter with RVR. Status post cardioversion, converted back. Patient is scheduled for EP study and ablation on . Patient to continue eliquis. Cardiology consult appreciated. 7. Rheumatoid arthritis and rheumatoid lung. Arava and Xeljanz had been on hold since April, patient was started on hydrocortisone 50 mg IV push every 8 hours. 8. History of empyema with Streptococcus requiring chest tube. 9. Hypertension and hypertensive cardiovascular disease. currently hypotensive. 10. Hypothyroidism . we will continue with Synthroid 150 mcg orally daily. 11. DVT prophylaxis. we will start Lovenox 40 mg SC daily and bilateral knee high Cecilio Hose 12. GI prophylaxis. we will continue with Protonix 40 mg IVP daily. 13. Prognosis continues to be guarded. Discharge plan: home Impression and plan of care have been directed as dictated by the signing physician. Yumiko Brown nurse practitioner acting as scribe for signing physician.
--- NOTE | 2020-08-31 15:43 | P.PN ---
Subjective Progress Note Date: 08/31/20 HISTORY OF PRESENT ILLNESS: Patient examined this morning. Patient is sitting up in the chair. He denies chest pain or pressure. He denies shortness of breath. He is status post left Pleurx catheter insertion. Chest x-ray completed this morning reveals severe bilateral subcutaneous emphysema, left- sided Pleurx catheter with redemonstrated small left basilar hydropneumothorax, and bilateral patchy infiltrates right greater than left. Patient underwent cardioversion yesterday with Dr. Prieto. Unfortunately, the patient went back into atrial flutter. PHYSICAL EXAM: VITAL SIGNS: Reviewed. GENERAL: Well-developed in no acute distress. NECK: Supple. No JVD or thyromegaly LUNGS: Respirations even and unlabored. Lungs with scattered rhonchi. Left Ple urx chest tube noted. HEART: Irregular rate and rhythm. S1 and S2 heard. EXTREMITIES: Normal range of motion. No clubbing or cyanosis. Peripheral pulses intact. No lower extremity edema ASSESSMENT: Typical atrial flutter with RVR, s/p cardioversion Acute hypoxic respiratory failure Fungal pneumonia with empyema Hypertension Hyperlipidemia [facility] undergo [facility] study and ablation tomorrow with Dr. Prieto Further recommendations pending patient course Nurse practitioner note has been reviewed by physician. Signing provider agrees with the documented findings, assessment, and plan of care. Objective - Vital Signs Vital signs: Vital Signs Temp 97.6 F 08/31/20 15:25 Pulse 81 08/31/20 15:25 Resp 18 08/31/20 15:25 BP 93/67 08/31/20 15:25 Pulse Ox 91 L 08/31/20 15:25 Intake & Output 08/30/20 08/31/20 08/31/20 18:59 06:59 18:59 Intake Total 1470 472 Output Total 486 1765 800 Balance 984 -1765 -989 Weight 99.7 kg Intake: IV 510 LR 160 Voriconazole 400 mg In 250 Sodium Chloride 0.9% 250 ml @ 125 mls/hr IVPB Q12HR [facility] Rx#:[id number] Oral 960 472 Output: Chest Tube Drainage 186 60 50 Left Mid-Axillary Chest 186 60 50 Urine 300 1705 750 Other: Voiding Method Toilet Toilet Urinal Urinal - Labs CBC & Chem 7: 08/29/20 06:58 08/30/20 08:46 Labs: Abnormal Lab Results - Last 24 Hours (Table) 08/30/20 08/30/20 08/31/20 Range/Units 16:38 20:15 06:07 POC Glucose (mg/dL) 121 H 144 H 112 H (75-99) mg/dL 08/31/20 Range/Units 11:36 POC Glucose (mg/dL) 167 H (75-99) mg/dL
[2020-08-31] MEDS: SODIUM CHLORIDE 0.9% 1,000 ML IV SCH (16:14)
[2020-08-31 16:54] LABS: Glucose,Whole Blood 163 mg/dL (75-99)
[2020-08-31] MEDS: ASCORBIC ACID 500 MG TAB PO SCH (20:18)
[2020-08-31] MEDS: ASPIRIN 81 MG PO SCH (20:18)
[2020-08-31] MEDS: HYDROcodone/APAP 5-325MG 1 EACH TAB PO PRN (20:19)
[2020-08-31] MEDS: CHOLECALCIFEROL 25 MCG (1000 IU) TABLET PO SCH (20:19)
[2020-08-31 20:30] LABS: Glucose,Whole Blood 202 mg/dL (75-99)
[2020-08-31] MEDS: AMMONIUM LACTATE 12% LOTION 225 GM BTL TOPICAL SCH (21:46)
--- NOTE | 2020-08-31 22:36 | PN ---
PROGRESS NOTE DATE OF SERVICE: 08/31/2020 REASON FOR FOLLOWUP: Aspergillus pneumonia and empyema. INTERVAL HISTORY: The patient is currently afebrile. He is breathing more comfortably. Denies having any chest pain. Occasional cough. No abdominal pain or diarrhea. PHYSICAL EXAMINATION: Blood pressure 120/79 with pulse of 93, temperature 97.9. He is 93% on 2 L nasal cannula. General description is a middle-aged male up in the chair in no distress. RESPIRATORY SYSTEM: Unlabored breathing with decreased breath sounds at the base. No wheeze. HEART: S1, S2. Regular rate and rhythm. ABDOMEN: Soft. No tenderness. LABS: No new labs have been obtained today. DIAGNOSTIC IMPRESSION AND PLAN: Patient with aspergillus voriconazole; to continue, and will monitor his clinical course closely. MMODL / IJN: [id number] /
[2020-09-01] MEDS: HYDROCORTISONE SUCCINATE 100 MG/2 ML VIAL IV SCH ×2 (00:04→13:06)
[2020-09-01] MEDS ORDERED: APIXABAN 5 MG TAB PO STA (05:10)
[2020-09-01] MEDS: PANTOPRAZOLE 40 MG TABLET PO SCH (05:14)
[2020-09-01] MEDS: LEVOTHYROXINE 75 MCG TAB PO SCH (05:17)
[2020-09-01] MEDS: METOPROLOL TARTRATE 25 MG TAB PO SCH ×2 (05:17→20:38)
[2020-09-01] MEDS: AMIODARONE 200 MG TAB PO SCH (05:17)
[2020-09-01] MEDS: APIXABAN 5 MG TAB PO SCH ×2 (05:17→20:38)
[2020-09-01 06:24] LABS: Glucose,Whole Blood 98 mg/dL (75-99)
[2020-09-01] MEDS: IPRATROPIUM-ALBUTEROL 3 ML NEB INHALATION SCH ×3 (06:52→19:38)
[2020-09-01] MEDS: AMMONIUM LACTATE 12% LOTION 225 GM BTL TOPICAL SCH ×2 (07:09→20:39)
[2020-09-01] MEDS: TRIAMCINOLONE 0.1% CREAM 80 GM TUBE TOPICAL SCH ×2 (07:09→20:39)
[2020-09-01] MEDS: SODIUM CHLORIDE 0.9% 1,000 ML IV SCH ×2 (07:15→07:20)
[2020-09-01] MEDS ORDERED: SUCCINYLCHOLINE CHLORIDE 100 MG/5 ML SYR IV ONE (07:20)
[2020-09-01] MEDS ORDERED: PROPOFOL 10 MG/ML 20 ML VIAL IV ONE (07:20)
[2020-09-01] MEDS ORDERED: PHENYLEPHRINE-0.9% NACL SYG 1,000 MCG/10 ML SYRINGE ONE (07:20)
[2020-09-01] MEDS ORDERED: MIDAZOLAM 2 MG/2 ML VIAL ONE (07:20)
[2020-09-01] MEDS ORDERED: ROCURONIUM 10 MG/ML (5 ML VIAL) IV ONE (07:20)
[2020-09-01] MEDS ORDERED: fentaNYL (PF) 50 MCG/ML 2 ML AMP ONE (07:20)
[2020-09-01] MEDS ORDERED: NEOSTIGMINE 1 MG/ML 10 ML VIAL ONE (07:20)
[2020-09-01] MEDS ORDERED: LIDOCAINE 1% INJ 10MG/ML (20 ML MDV) ONE ×2 (07:20→07:41)
[2020-09-01] MEDS ORDERED: GLYCOPYRROLATE 0.2 MG/ML 2 ML VIAL ONE (07:20)
[2020-09-01] MEDS ORDERED: LIDOCAINE 1% INJ 10MG/ML (20 ML MDV) SQ ONE (07:47)
--- NOTE | 2020-09-01 07:48 | XR ---
EXAMINATION TYPE: XR chest 1V portable DATE OF EXAM: 09/01/2020 COMPARISON: 08/31/2020 INDICATION: Pleurx catheter TECHNIQUE: Single frontal view of the chest is obtained. FINDINGS: The heart size is prominent. The pulmonary vasculature is prominent. There is a patchy infiltrates in the right lung. A right loculated pneumothorax may be at the base. L eft-sided catheter is present. Some left basilar atelectasis may be present. This appears diminished. Extensive subcutaneous emphysema limits the evaluation. IMPRESSION: 1. Small on pneumothoraces may be present at the lung bases. Extensive subcutaneous emphysema is pres ent. 2. 2. Worsening appearing infiltrate through the right lung and left base.
[2020-09-01] MEDS ORDERED: HEPARIN SODIUM (1,000 UNIT/ML) 1,000 UNIT in SODIUM CHLORIDE 0.9% 1,000 ML IRRIGATION ONE (08:00)
--- NOTE | 2020-09-01 08:37 | P.PN ---
Subjective Progress Note Date: 09/01/20 Principal diagnosis: Bilateral pneumonia, bilateral hydropneumothorax, possible empyema, sputum culture preliminarily positive for Aspergillus species, acute hypoxic respiratory failure with sepsis on admission. Past medical history significant for multiple admissions for pneumonia with empyema on the left and previous bilateral chest tube placement in December 2019 with cultures positive for strep pneumonia, rheumatoid arthritis with rheumatoid lung, hypertension, hypothyroidism, DVT, previous tobacco dependence, family history of lung cancer, and recent hospitalization for hypotension, dehydration, acute kidney injury requiring dialysis. POD #3 left Pleurx catheter placement with irrigational pleural space and installation of amphotericin B solution under fluoroscopic guidance. POD #9 left-sided thoracentesis by interventional radiology. The patient was seen and examined today 09/01/2020 in the electrophysiology lab. He is awake, alert and oriented 3. Denies any complaints of pain or shortness of breath at this time. Left chest Pleurx catheter remains in place and connected to low continuous wall suction -20 cm H2O. No air leak is present at this time. Draining thin cloudy serosanguineous drainage. The patient is scheduled for an ablation this morning for his atrial flutter by Dr. Prieto. Oxygen saturations are 97% on 2 L nasal cannula. Afebrile the last 24 hours. Objective - Vital Signs Vital signs: Vital Signs Temp 97.7 F 09/01/20 04:00 Pulse 60 09/01/20 04:00 Resp 16 09/01/20 04:00 BP 116/70 09/01/20 04:00 Pulse Ox 97 09/01/20 04:00 Intake & Output 08/31/20 09/01/20 09/01/20 18:59 06:59 18:59 Intake Total 1180 350 0 Output Total 1300 435 Balance -120 -85 0 Weight 100.4 kg Intake: IV 350 0 0.9 100 Voriconazole 400 mg In 250 Sodium Chloride 0.9% 250 ml @ 125 mls/hr IVPB Q12HR [facility] Rx#:[id number] Oral 1180 Output: Chest Tube Drainage 50 35 Left Mid-Axillary Chest 50 35 Urine 1250 400 Other: Voiding Method Toilet Urinal - Constitutional General appearance: Present: cooperative, no acute distress, obese - EENT Eyes: Present: normal appearance. Absent: scleral icterus ENT: Present: hearing grossly normal - Neck Details: Neck with extensive subcutaneous emphysema. Neck: Present: normal ROM. Absent: stridor - Respiratory Details: Lung sounds essentially clear to his bilateral upper lobes, diminished to his bilateral bases. No wheezes, rhonchi present. Respirations are symmetrical and nonlabored. Oxygen saturation is 97% on 2 L nasal cannula. Left chest Pleurx catheter in place to low continuous wall suction -20 cm H2O. No air leak is present. Draining thin cloudy serosanguineous drainage. - Cardiovascular Details: Irregular rhythm and controlled rate. S1 and S2 present, negative for S3, gallop or murmur. +1 edema to his bilateral lower extremities. Knee-high BRISA hose in place to his bilateral lower extremities. - Gastrointestinal Gastrointestinal Comment(s): Abdomen soft, nontender and nondistended. Active bowel sounds present in all 4 abdominal quadrants. No guarding or rigidity. No organomegaly appreciated. - Genitourinary Genitourinary Comment(s): Continues to void. - Integumentary Integumentary Comment(s): Skin is warm and dry. No clubbing or cyanosis is present. Subcutaneous emphysema present to his neck, anterior and posterior chest, and bilateral upper extremities. - Neurologic Neurologic: Present: CNII-XII intact. Absent: focal deficits - Musculoskeletal Musculoskeletal: Present: gait normal, generalized weakness, strength equal bilaterally - Psychiatric Psychiatric: Present: A&O x's 3, appropriate affect, intact judgment & insight - Allied health notes Allied health notes reviewed: nursing - Labs CBC & Chem 7: 08/29/20 06:58 08/30/20 08:46 Labs: Abnormal Lab Results - Last 24 Hours (Table) 08/31/20 08/31/20 08/31/20 Range/Units 11:36 16:48 20:28 POC Glucose (mg/dL) 167 H 163 H 202 H (75-99) mg/dL - Imaging and Cardiology Chest x-ray: report reviewed, image reviewed Assessment and Plan Assessment: 1. Bilateral pneumonia, bilateral hydropneumothorax, possible empyema, sputum culture preliminarily positive for Aspergillus species, status post left-sided thoracentesis 2. Acute hypoxic respiratory failure with sepsis on admission 3. Multiple admissions for pneumonia with empyema on the left and previous bilateral chest tube placement in December 2019 with cultures positive for strep pneumonia 4. Rheumatoid arthritis with rheumatoid lung 5. Hypertension, currently hypotensive, requiring pressors on admission 6. Hypothyroidism 7. History of DVT 8. Previous tobacco dependence 9. Family history of lung cancer 10. Recent hospitalization for hypotension, dehydration, acute kidney injury requiring dialysis 11. New-onset atrial fibrillation/atrial flutter with rapid ventricular response, currently on amiodarone by mouth and metoprolol tartrate 12. Subcutaneous emphysema to his neck, bilateral upper extremities, anterior posterior chest with positive air leak through the Pleurx catheter, currently on continuous low wall suction Plan: 1. We will cap the Pleurx catheter today. Continue to monitor for subcutaneous emphysema resolution. 2. Continue to follow daily chest x-rays. 3. Encourage incentive spirometry 10 times every hour while awake. Bronchodilators per pulmonary for/critical care medicine. 4. Remains on Vfend managed by infectious disease. Amphotericin B pleural was drained 08/30/2020. 5. Increase activity as tolerated. 6. Medical management and other comorbidities per primary care service. 7. Reinforced Pleurx catheter teaching with the patient and his present. 8. Cytology results are pending. 9. More recommendations to follow based on patient's clinical course. Time with Patient: Greater than 30
[2020-09-01] MEDS ORDERED: ACETAMINOPHEN TAB 325 MG TAB PO PRN (08:49)
--- NOTE | 2020-09-01 08:53 | P.PN ---
Progress Note - Text Successful atrial flutter ablation with bidirectional block with differential pacing Plan 100 mg amiodarone by mouth once daily for one month and then stop Reduce metoprolol to 25 mg twice daily Continue ELIQUIS 5 mg twice daily Further dictation to follow
[2020-09-01 12:01] LABS: Glucose,Whole Blood 99 mg/dL (75-99)
[2020-09-01 12:59] LABS: Anisocytosis Slight; HCT 33.1 % (39.0-53.0); HGB 9.7 gm/dL (13.0-17.5); Hypochromasia Marked; MCH 27.2 pg (25.0-35.0); MCHC 29.4 g/dL (31.0-37.0); MCV 92.8 fL (80.0-100.0); Mean Platelet Volume 9.1; Platelet Count 299 k/uL (150-450); RBC 3.56 m/uL (4.30-5.90); RDW 18.9 % (11.5-15.5)
[2020-09-01] MEDS: LACTATED RINGERS 1,000 ML IV SCH (13:11)
[2020-09-01] MEDS: VORICONAZOLE 400 MG in SODIUM CHLORIDE 0.9% 250 ML IVPB SCH ×2 (13:11→20:40)
[2020-09-01 13:17] LABS: ALT 120 U/L (4-49); AST 127 U/L (17-59); African American GFR (CKD) >90 (>60 ml/min/1.73 sqM); Albumin 2.9 g/dL (3.5-5.0); Alkaline Phosphatase 320 U/L (38-126); Anion Gap 6 mmol/L; Blood Urea Nitrogen 28 mg/dL (9-20); Calcium 8.3 mg/dL (8.4-10.2); Carbon Dioxide 37 mmol/L (22-30); Chloride 100 mmol/L (98-107); Glucose 100 mg/dL (74-99); Non-African American GFR(CKD) >90 (>60 ml/min/1.73 sqM); Potassium 2.8 mmol/L (3.5-5.1); Sodium 143 mmol/L (137-145); Total Bilirubin 0.9 mg/dL (0.2-1.3); Total Protein 6.3 g/dL (6.3-8.2)
--- NOTE | 2020-09-01 16:00 | P.PN ---
Subjective Progress Note Date: 09/01/20 Principal diagnosis: Pneumonia, hydropneumothorax, septic shock 60-year-old white male patient, with past medical history of rheumatoid arthritis, previous history of rheumatoid lung disease on Arava, previous episodes of pneumonia and history of loculated empyema requiring chest tube placement back in January 2020 with pleural fluid cultures positive for streptococcal pneumonia. Other medical history includes hypertension, hypothyroidism and previous history of DVT. Patient had a recent hospitalization from August 08 through 08/11/2020 hypotension, dehydration related to nausea vomiting diarrhea, acute kidney injury. Patient received antibiotics in the form of Zosyn and Levaquin for possibility of pneumonia, he is chest x-ray showed cranial perihilar pulmonary infiltrates with increased interstitial changes at the lung bases and was thought to be related to a combi nation of rheumatoid lung and chronic scarring. His last CT of the chest was on 07/19/2020 showing chronic changes to lower lungs, persistent irregular thick- walled pleural spaces in the posterior lung bases containing fluid and air with adjacent anterior lung with chronic consolidation or atelectasis. On 08/19/2020 patient came into the emergency department from Dr. GENE Carias's office where he w as being seen for a regular follow-up appointments. He was noted to have low pulse ox 70s and was sent in to the emergency department for evaluation. He has been having cough with yellow and sometimes blood-tinged sputum, appears amounts, denies any fever, COVID 19 was found to be negative, chest x-ray showed perihilar and basilar infiltrates without significant change from previous chest x-ray on 08/09/2020. Lab data showed leukocytosis with white blood cell count of 19.1, hemoglobin of 12.1, INR 1.5, sodium is 135, potassium is 3.9, chloride is 102, CO2 is 19, creatinine is 1.32, which has actually improved since his discharge from the hospital on 08/11/2020 when he was at 1.84. Lactic acid was elevated at 3.7, patient was given a total of 2 L in fluid boluses, troponin was negative at less than 0.012. Urinalysis showed no evidence of infection. CT chest showed thick-walled pleural cavities posteriorly in the lower lungs with left-sided air-fluid level with left-sided pleural fluid diminished most recent CT from 07/19/2020. There is associated compressive atelectasis and/or chronic consolidation. Persistent as it is lobe fissure, multifocal areas of reticular nodular opacity in the upper lungs remain present with slight nodularity in the left upper lobe. There is a focal consolidation improved from most recent study with some residual areas of scarring. We will emergency department patient became hypotensive with a blood pressure in the 70s, slightly tachycardic r emains in sinus mechanism, he is receiving his third liter bolus, his lactic acid did respond and improved he was started on antibiotics in the form of Zosyn and vancomycin The patient is seen today August 20 2020 in the intensive care unit. He is currently sitting up in a chair at the bedside. Awake and alert in no acute distress. Maintaining O2 saturations in the 90s on 2 L/m per nasal cannula. He did require a small dose of norepinephrine currently on 0.05 mcg/kg/m. He has lactated Ringer's at 100 MLS per hour. He remains on vancomycin and cefepime. Chest x-ray continues to show the left lower lobe effusion. White count 11.7. Hemoglobin 9.7. Sodium 135. Potassium 3.6. Creatinine 1.00. Blood cultures reveal no growth to date. Reevaluated today on 08/21/2020, remains in the ICU, still on norepinephrine at 0.04 mcg/kg/m. On LR at 1 25 mL per hour. On vancomycin and cefepime empirically, blood pressure remains marginal, went ahead and recommended Solu- Cortef 100 mg IV push every 8 hours and hopefully will be able to discontinue norepinephrine today. His IV fluid is cut down to KVO. Given 20 mg of Lasix IV push, and I have recommended that we monitor the patient in the ICU for the next 24 hours. Chest x-ray is basically the same, continues to show chronic finding, difficult to exclude underlying pneumonia/empyema. CT of the chest on admission was also reviewed, difficult to rule out underlying empyema. Clinically the patient is feeling better except for generally weak. WBC count is 12.5 hemoglobin is 9.9. Normal renal profile is normal blood cultures are negative so far. Sputum cultures are also negative so far. On 08/22/2020 patient seen in follow-up in the intensive care unit, he is awake and alert, oriented 3, sitting up in the recliner, currently on 2 L of oxygen his pulse ox is 95-100%, his been afebrile, hemodynamically he is stable, he is not on any vasopressor support. His lactate Ringer's running at 20 ML per hour, antibiotics include cefepime and vancomycin, blood pressure has been stable, so far blood and sputum cultures are negative, he denies chest pain, his breathing is comfortable. Today's labs have been reviewed, showing white blood cell count trending down, 10.2 today, hemoglobin is 8.8, electrolytes and renal profile are unremarkable. Serum cortisol level came back at 3, patient continues on stress doses of hydrocortisone 100 mg every 8 hours. Patient has not been stable, we'll consult interventional radiology for ultrasound-guided left thoracentesis On 08/23/2020 patient seen in follow-up in the intensive care unit, he is calm and comfortable, awake and alert, sitting up in the recliner, currently on room air with a pulse ox of 93-94%, his been afebrile, hemodynamically he is been stable, he is on IV LR at 20 ML per hour, no other drips. He is on cefepime and vancomycin for antibiotic coverage, yesterday he underwent left thoracentesis with removal of 43 mL of pleural fluid which was sent for cultures. Tolerated procedure well. His pleural fluid analysis revealed total fluid protein of 1.3 g, and fluid LDH of greater than 4500 consistent with exudative fluid. His microbiology data has been reviewed showing Aspergillus fumigate is in the sputum, his pleural fluid cultures are pending at this time, the cultures have shown no growth, hemodynamically has been stable, he is breathing easier, he still has cough mostly in the morning and the amount of secretions his bringing up is decreasing in amount. Lung sounds revealed a few scattered wheezes, and a few rhonchi at bilateral bases. Is tolerating oral intake. No abdominal pain, no nausea or vomiting, today's labs have been reviewed, white blood cell count is 11.2, hemoglobin is 9.1, sodium is 137, potassium is 4.0, chloride is 109, BUN is 15, creatinine 0.80. No acute events overnight. He is working on incentive spirometer, he is achieving 1000 today On 08/24/2020 patient seen in follow-up on medical surgical floor. He is awake and alert, in no acute distress, breathing comfortably, denies any chest pain, room air pulse ox is 94%, no fever or chills, today's chest x-ray shows left basilar loculated pneumothorax, stable in appearance, bilateral lung infiltrates. His pleural fluid cultures so far showing Aspergillus species, as does his sputum culture. Blood culture show no growth. The cervix is following, current antibiotic coverage includes cefepime, vancomycin has been discontinued, she received 1 dose of IV Lasix per nephrology. He has produced 2500 in urine output, and he is in -1.6 L over the last 24 hours, however he still has significant lower extremity edema On 08/26/2020 patient seen in follow-up in the intensive care unit, he is awake and alert, in no acute distress, on room air, his pulse ox is 93%, currently on amiodarone at 0.5 mg/m, heparin infusion per weight based protocol, 0.9 normal saline at a rate of 10 ML per hour, his heart rate is still poorly controlled, he remains in atrial flutter with a rate of 140 BPM. He's had no fever or chills, he status post ultrasound-guided thoracentesis of the left pleural space with removal of 45 mL of pleural fluid in the cultures were positive for Aspergillus. Infectious disease service is following, and voriconazole was started. Clinically patient denies any shortness of breath, no cough, no compressive chest pain, we discussed the case with the cardiothoracic surgery yesterday, and plan is to proceed with the placement of Pleurx catheter into the left pleural space today. On 08/31/2020 patient seen in follow-up. Sitting up in the recliner, breathing comfortably, his on 2 L of oxygen pulse ox of 90%, he's been afebrile, morgan bcutaneous emphysema slightly worsened especially involving right upper chest area, left chest Pleurx catheter remains in place, connected to Pleur-evac to suction and there is some intermittent air leak still present, his chest x-ray shows severe bilateral septic hence emphysema, small left basilar hydropneumothorax, and bilateral patchy infiltrates right greater than left not significantly changed, patient remains on voriconazole, and his left chest pleural fluid fungal culture was positive for Aspergillus fumigatus. Total fluid cytology was not sent however pathology lab still has the pleural fluid which we will request cytology. On 09/01/2020 patient seen in follow-up. He is resting in bed, subcu emphysema in his bilateral upper chest seems to have slightly progressed since yesterday, no significant extension to his neck area, his voice is still left chest Pleurx catheter in place connected to Pleur-evac and there is intermittent air leak at times it is more continuous. There has only been 85 mL of serosanguineous output in the last 24 hours, pleural fluid cytology was sent from the pleural fluid collected on 07/31/2020, results are pending. Continues on voriconazole for evidence of Aspergillus fungal infection in the pleural space. Today's labs reviewed, showing blood vessel, 16, hemoglobin is 9.7, sodium is 143, potassium is 2.8, chloride is 100 CO2 is 27 BUN is 28 and creatinine 0.78, LFTs seems to have acutely increased, with AST up to 127, ALT is 120, and alkaline phosphatase of 320. No fever or chills, patient of breath but no acute distress, today's chest x-ray shows extensive subcutaneous emphysema, small pneumothoraces at the lung bases, in worsening-appearing infiltrate through the right lung base. Objective - Vital Signs Vital signs: Vital Signs Temp 97.4 F L 09/01/20 09:18 Pulse 80 09/01/20 10:20 Resp 16 09/01/20 09:49 BP 121/77 09/01/20 10:20 Pulse Ox 86 L 09/01/20 10:20 Intake & Output 08/31/20 09/01/20 09/01/20 18:59 06:59 18:59 Intake Total 8723 834 3381 Output Total 1300 435 Balance -120 -85 1260 Weight 100.4 kg Intake: IV 350 1020 0.9 100 Voriconazole 400 mg In 250 Sodium Chloride 0.9% 250 ml @ 125 mls/hr IVPB Q12HR [facility] Rx#:[id number] Oral 1180 240 Output: Chest Tube Drainage 50 35 Left Mid-Axillary Chest 50 35 Urine 1250 400 Other: Voiding Method Toilet Urinal - Exam GENERAL EXAM: Alert, pleasant, 60-year-old male patient, on room air with a pulse ox of 94%, currently sitting up in chair at the bedside, comfortable in no apparent distress. HEAD: Normocephalic/atraumatic. EENT: PERRLA, EOMI, nonicteric. Moist mucous membranes, no neck masses, no JVD, no stridor. CHEST: No chest wall deformity. Symmetrical expansion. Left chest Pleurx catheter connected to Pleur-evac, to wall suction, with intermittent air leak present, serosanguineous output in the Pleur-evac. There is extensive morgan bcutaneous emphysema in his anterior bilateral upper chest, extending into his neck and shoulders LUNGS: Bibasilar rhonchi, and a few scattered wheezes CVS: Regular rate and rhythm, normal S1 and S2, no gallops, no murmurs, no rubs ABDOMEN: Soft, nontender. No hepatosplenomegaly, normal bowel sounds, no guarding or rigidity. EXTREMITIES: No clubbing, 1+ lower extremity edema, no cyanosis, 2+ pulses and upper and lower extremities. MUSCULOSKELETAL: Muscle strength and tone normal. SPINE: No scoliosis or deformity SKIN: No rashes CENTRAL NERVOUS SYSTEM: Alert and oriented -3. No focal deficits, tone is normal in all 4 extremities. PSYCHIATRIC: Alert and oriented -3. Appropriate affect. Intact judgment and insight. - Labs CBC & Chem 7: 09/01/20 12:40 09/01/20 12:40 Labs: Abnormal Lab Results - Last 24 Hours (Table) 08/31/20 08/31/20 09/01/20 Range/Units 16:48 20:28 12:40 WBC 16.0 H (3.8-10.6) k/uL RBC 3.56 L (4.30-5.90) m/uL Hgb 9.7 L (13.0-17.5) gm/dL Hct 33.1 L (39.0-53.0) % MCHC 29.4 L (31.0-37.0) g/dL RDW 18.9 H (11.5-15.5) % Potassium (3.5-5.1) mmol/L Carbon Dioxide (22-30) mmol/L BUN (9-20) mg/dL Glucose (74-99) mg/dL POC Glucose (mg/dL) 163 H 202 H (75-99) mg/dL Calcium (8.4-10.2) mg/dL AST (17-59) U/L ALT (4-49) U/L Alkaline Phosphatase (38-126) U/L Albumin (3.5-5.0) g/dL 09/01/20 Range/Units 12:40 WBC (3.8-10.6) k/uL RBC (4.30-5.90) m/uL Hgb (13.0-17.5) gm/dL Hct (39.0-53.0) % MCHC (31.0-37.0) g/dL RDW (11.5-15.5) % Potassium 2.8 L (3.5-5.1) mmol/L Carbon Dioxide 37 H (22-30) mmol/L BUN 28 H (9-20) mg/dL Glucose 100 H (74-99) mg/dL POC Glucose (mg/dL) (75-99) mg/dL Calcium 8.3 L (8.4-10.2) mg/dL AST 127 H (17-59) U/L ALT 120 H (4-49) U/L Alkaline Phosphatase 320 H (38-126) U/L Albumin 2.9 L (3.5-5.0) g/dL Assessment and Plan Plan: Assessment: #1. Acute hypoxic respiratory failure related to sepsis, septic shock, related to pneumonia, with chronic loculated effusions, rule out possibility of empyema. COVID 19 was ruled out per PCR. Pleural fluid culture positive for Aspergillus fumigators, patient is on voriconazole, ideally patient would benefit from surgical intervention including thoracoscopy/decortication however this could be an extensive surgery for him in patient had the left chest Pleurx catheter inserted for drainage Patient is post insertion of a left-sided Pleurx catheter and instillation of amphotericin B into the pleural space, the left lung was trapped with fungal empyema, patient has intermittent air leak, and there is a subcutaneous emphysema involving neck, upper chest #2. Bilateral hydropneumothorax, rule out possibility of empyema, status post ultrasound-guided left-sided thoracentesis on 08/22/2020 would removal of 45 mL of cloudy white fluid, which was exudative in nature, pleural fluid culture only showing Aspergillus, antibiotic coverage is with cefepime and vancomycin, it service is following, CT surgery has no plans for surgical intervention at this time. on 08/31/2020 patient is on voriconazole for evidence of Aspergillus fumigators in the pleural fluid #3. Recent admission to the hospital for hypotension, dehydration related to nausea vomiting diarrhea, acute kidney injury #4. Recurrent pulmonary infections, with history of streptococcal pneumonia and empyema requiring chest tube placement in January 2020 #5. Chronic loculated pneumothoraces, posterior, with air-fluid level seen on the CT imaging of the chest, the possibility of trapped lung, chronic scarring a nd possibility of empyema needs to be ruled out #6. Elevated d-dimer with no CT evidence for pulmonary embolism #7. History of rheumatoid arthritis and rheumatoid lung disease on Arava #8. Recent history of acute kidney injury, and admission lab work today shows improvement in his renal function #9. Hypertension #10. Hypothyroidism #11. Previous history of foot infections requiring antibiotics #12. Previous history of DVT #13. Transaminitis possibly related to antifungal antibiotics, will obtain follow-up labs Plan: Continue current treatment, today's labs have been noted, liver enzymes are elevated, we'll obtain follow-up CMP tomorrow. Continue left Pleurx chest tube to continuous wall suction, the chest tube still has a air leak, continue current antibiotics. I performed a history & physical examination of the patient and discussed their management with my nurse practitioner, Марина Thompson. I reviewed the nurse practitioner's note and agree with the documented findings and plan of care. Lung sounds are positive for diminished breath sounds. The findings and the impression was discussed with the patient. I attest to the documentation by the nurse practitioner. Time with Patient: Less than 30
[2020-09-01] MEDS: FUROSEMIDE 10 MG/ML 4 ML VIAL IV SCH (16:15)
[2020-09-01 16:50] LABS: Glucose,Whole Blood 142 mg/dL (75-99)
[2020-09-01] MEDS: POTASSIUM CHLORIDE ER 20 MEQ TAB.ER PO SCH ×2 (17:47→20:38)
--- NOTE | 2020-09-01 17:54 | CE ---
CARDIAC ELECTROPHYSIOLOGY REPORT Lokesh Zee is a 60-year-old male patient who was admitted for pleural infection which turned out to be fungal infection. However, he went into atrial flutter with RVR. He underwent successful electrical cardioversion after loading with oral amiodarone, but he recurred within a few hours. 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 His atrial flutter rates have been very difficult to control despite beta blockers and amiodarone. He is already on anticoagulation. The patient was brought to the EP lab in a fasting state. Written informed consent was obtained prior to the procedure. The procedure was performed under general anesthesia. Venous sheaths were placed in the right and left femoral veins. Intracardiac echocardiography was performed. Catheters were placed in the coronary sinus, high right atrium, His bundle area. Mapping ablation catheter was placed. Intracardiac echo revealed absence of any left atrial appendage thrombus. Three-dimensional anatomic mapping of the cavotricuspid isthmus was performed. An RF dye box operator tip catheter was used to perform RF ablation. The patient was in atrial flutter at the start of the study. Atrial cycle length was 211 milliseconds. A cavotricuspid RF line of block was made. This resulted in termination of the tachycardia. Prior to this, entrainment mapping had been performed. Following termination, the rest of the procedure was performed in sinus rhythm. A complete anatomic line of block was made in the cavotricuspid isthmus from the tricuspid anulus to the IVC. This line was then interrogated with high-output pacing. It was also interrogated with differential pacing, and complete bidirectional block was noted. In sinus rhythm the AH interval was 71 milliseconds, HV interval 37 milliseconds, QRS 98 milliseconds, WI interval 153 milliseconds. AV node Wenckebach block 390 milliseconds. The sinus node recovery time at a paced cycle length of 600 milliseconds was 1250 milliseconds. RESULT: Successful radiofrequency ablation for symptomatic atrial flutter that was difficult for rate control and had failed amiodarone and electrical cardioversion recently. The RF line demonstrated complete bidirectional block. PLAN: Amiodarone 100 mg p.o. daily for one month only and then stop. The patient has rheumatoid lung and I would avoid long-term amiodarone. Anticoagulation with Eliquis should continue. Beta tricia should continue. MMODL / IJN: [id number] /
[2020-09-01 20:08] LABS: Glucose,Whole Blood 137 mg/dL (75-99)
[2020-09-01] MEDS: CHOLECALCIFEROL 25 MCG (1000 IU) TABLET PO SCH (20:38)
[2020-09-01] MEDS: HYDROcodone/APAP 5-325MG 1 EACH TAB PO PRN (20:38)
[2020-09-01] MEDS: ASCORBIC ACID 500 MG TAB PO SCH (20:38)
[2020-09-01] MEDS: ASPIRIN 81 MG PO SCH (20:39)
--- NOTE | 2020-09-01 22:10 | PN ---
PROGRESS NOTE DATE OF SERVICE: 09/01/2020 REASON FOR FOLLOWUP: Aspergillosis. INTERVAL HISTORY: The patient is currently afebrile. The patient is breathing comfortably, status post cardiac ablation today. No chest pain or shortness of breath. Occasional cough. No nausea, no vomiting, no abdominal pain or diarrhea. PHYSICAL EXAMINATION: Blood pressure is 116/70 with a pulse of 85, temperature 97.9. He is 97% on room air. General description is a middle-aged male lying in bed in no distress. RESPIRATORY SYSTEM: Unlabored breathing with decreased breath sounds at the base. No wheeze. HEART: S1, S2. Regular rate and rhythm. ABDOMEN: Soft. No tenderness. LABS: White count down to 16. BUN 28, creatinine 0.78. DIAGNOSTIC IMPRESSION AND PLAN: Patient with aspergillus pneumonia and empyema, status post PleurX catheter placement. Patient is covered with voriconazole; to continue. Family at the bedside. Multiple questions were answered. MMODL / IJN: [id number] /
[2020-09-02] MEDS: LEVOTHYROXINE 75 MCG TAB PO SCH (06:19)
[2020-09-02] MEDS: PANTOPRAZOLE 40 MG TABLET PO SCH (06:19)
[2020-09-02 06:24] LABS: Glucose,Whole Blood 82 mg/dL (75-99)
--- NOTE | 2020-09-02 07:17 | XR ---
EXAMINATION TYPE: XR chest 1V portable DATE OF EXAM: 09/02/2020 HISTORY: Shortness of breath. COMPARISON: None. TECHNIQUE: Single view of the chest is submitted. FINDINGS: Demonstrated are scattered senescent parenchymal change. Left basilar pleural catheter unchanged in position. Extensive subcutaneous emphysema seen throughout the chest wall and neck. This does limit evaluation for pneumothorax. Sizable pneumothorax is not ev ident with certainty. There is diffuse infiltrate throughout the right lung left lower lobe persists unchanged. The heart is stable. Hilar and mediastinal structures are within normal limits. Degenerative changes are seen of the dorsal spine. IMPRESSION: 1. Stable chest.
[2020-09-02] MEDS: IPRATROPIUM-ALBUTEROL 3 ML NEB INHALATION SCH ×3 (07:43→19:30)
[2020-09-02 08:33] LABS: ALT 193 U/L (4-49); AST 209 U/L (17-59); African American GFR (CKD) >90 (>60 ml/min/1.73 sqM); Alkaline Phosphatase 425 U/L (38-126); Anion Gap 5 mmol/L; Blood Urea Nitrogen 27 mg/dL (9-20); Calcium 8.9 mg/dL (8.4-10.2); Carbon Dioxide 37 mmol/L (22-30); Chloride 99 mmol/L (98-107); Glucose 87 mg/dL (74-99); Non-African American GFR(CKD) >90 (>60 ml/min/1.73 sqM); Sodium 141 mmol/L (137-145); Total Bilirubin 0.8 mg/dL (0.2-1.3); Total Protein 6.5 g/dL (6.3-8.2)
[2020-09-02 08:46] LABS: Anisocytosis Slight; HCT 33.9 % (39.0-53.0); Hypochromasia Marked; MCH 26.5 pg (25.0-35.0); MCHC 29.5 g/dL (31.0-37.0); MCV 90.1 fL (80.0-100.0); Mean Platelet Volume 9.8; Platelet Count 293 k/uL (150-450); RBC 3.76 m/uL (4.30-5.90); WBC 15.8 k/uL (3.8-10.6)
--- NOTE | 2020-09-02 09:06 | P.PN ---
Subjective Progress Note Date: 09/02/20 Principal diagnosis: Bilateral pneumonia, left trapped lung with fungal empyema growing Aspergillus species, acute hypoxic respiratory failure with sepsis on admission. Radius his tory of multiple admissions for pneumonia with empyema on the left and previous bilateral chest tube placement in December 2019 with cultures positive for strep pneumonia, rheumatoid arthritis with rheumatoid lung, hypertension, hypothyroidism, DVT, previous tobacco dependence, family history of lung cancer, and recent hospitalization for hypotension, dehydration, acute kidney injury requiring dialysis POD #11 left-sided thoracentesis by interventional radiology POD #4 left Pleurx catheter placement with irrigation of pleural space and instillation of amphotericin B solution under thoracoscopic guidance Extensive subcutaneous emphysema Persistent atrial flutter with RVR, status post electrical cardioversion, status post radiofrequency ablation The patient is currently sitting up in a recliner on the cardiac stepdown unit in no acute distress. Denies pain, states shortness of breath has continued to improve, appears comfortable. Subcutaneous emphysema appears slightly better than previous. Remains on IV Lasix and IV voriconazole. Remains afebrile, currently in sinus rhythm and hemodynamically stable, oxygen saturation in the 90s on room air. Left sided Pleurx catheter connected to continuous wall suction, intermittent air leak present. No new concerns, however patient is an xious to go home. Objective - Vital Signs Vital signs: Vital Signs Temp 97.9 F 09/02/20 03:09 Pulse 83 09/02/20 03:09 Resp 17 09/02/20 03:09 BP 127/82 09/02/20 03:09 Pulse Ox 93 L 09/02/20 03:09 Intake & Output 09/01/20 09/02/20 09/02/20 18:59 06:59 18:59 Intake Total 2019 410 240 Output Total 1695 535 325 Balance 325 -125 -85 Weight 101.8 kg Intake: IV 1060 250 LR 40 Voriconazole 400 mg In 250 Sodium Chloride 0.9% 250 ml @ 125 mls/hr IVPB Q12HR [facility] Rx#:[id number] Intake, IV Titration 160 Amount Sodium Chloride 0.9% 1, 160 000 ml @ 20 mls/hr IV . Q24H [facility] Rx#:[id number] Oral 960 240 Output: Chest Tube Drainage 120 35 Left Mid-Axillary Chest 120 35 Urine 1575 500 325 - Constitutional General appearance: Present: cooperative, no acute distress - Respiratory Details: Lungs sounds diminished in the bases bilaterally. Respirations even, nonlabored. Currently on room air with oxygen saturation in the 90s. Able to achieve 1000 mL on his incentive spirometry. Strong cough. Left sided Pleurx catheter present to continuous wall suction, 30 mL cloudy drainage overnight, 400 mL in the last 24 hours, intermittent air leak present. - Cardiovascular Details: S1, S2 present. Regular rate and rhythm, sinus rhythm on telemetry with heart rate in the 90s. Palpable peripheral pulses bilaterally. Bilateral lower extremity edema present. No calf pain or tenderness noted. - Gastrointestinal Gastrointestinal Comment(s): Abdomen soft, nontender, nondistended. Active bowel sounds present 4 quadrants. Tolerating diet. Positive bowel movement per patient - Genitourinary Genitourinary Comment(s): Continues to void - Integumentary Integumentary Comment(s): Skin is warm and dry with evidence of good perfusion - Neurologic Neurologic: Present: CNII-XII intact - Musculoskeletal Musculoskeletal: Present: gait normal, strength equal bilaterally - Psychiatric Psychiatric: Present: A&O x's 3, appropriate affect, intact judgment & insight - Allied health notes Allied health notes reviewed: nursing - Labs CBC & Chem 7: 09/02/20 07:45 09/02/20 07:45 Labs: Abnormal Lab Results - Last 24 Hours (Table) 09/01/20 09/01/20 09/01/20 Range/Units 12:40 12:40 16:47 WBC 16.0 H (3.8-10.6) k/uL RBC 3.56 L (4.30-5.90) m/uL Hgb 9.7 L (13.0-17.5) gm/dL Hct 33.1 L (39.0-53.0) % MCHC 29.4 L (31.0-37.0) g/dL RDW 18.9 H (11.5-15.5) % Potassium 2.8 L (3.5-5.1) mmol/L Carbon Dioxide 37 H (22-30) mmol/L BUN 28 H (9-20) mg/dL Glucose 100 H (74-99) mg/dL POC Glucose (mg/dL) 142 H (75-99) mg/dL Calcium 8.3 L (8.4-10.2) mg/dL AST 127 H (17-59) U/L ALT 120 H (4-49) U/L Alkaline Phosphatase 320 H (38-126) U/L Albumin 2.9 L (3.5-5.0) g/dL 09/01/20 09/01/20 09/02/20 Range/Units 20:01 21:36 07:45 WBC 15.8 H (3.8-10.6) k/uL RBC 3.76 L (4.30-5.90) m/uL Hgb 10.0 L (13.0-17.5) gm/dL Hct 33.9 L (39.0-53.0) % MCHC 29.5 L (31.0-37.0) g/dL RDW 19.0 H (11.5-15.5) % Potassium 3.0 L (3.5-5.1) mmol/L Carbon Dioxide (22-30) mmol/L BUN (9-20) mg/dL Glucose (74-99) mg/dL POC Glucose (mg/dL) 137 H (75-99) mg/dL Calcium (8.4-10.2) mg/dL AST (17-59) U/L ALT (4-49) U/L Alkaline Phosphatase (38-126) U/L Albumin (3.5-5.0) g/dL 09/02/20 Range/Units 07:45 WBC (3.8-10.6) k/uL RBC (4.30-5.90) m/uL Hgb (13.0-17.5) gm/dL Hct (39.0-53.0) % MCHC (31.0-37.0) g/dL RDW (11.5-15.5) % Potassium 3.0 L (3.5-5.1) mmol/L Carbon Dioxide 37 H (22-30) mmol/L BUN 27 H (9-20) mg/dL Glucose (74-99) mg/dL POC Glucose (mg/dL) (75-99) mg/dL Calcium (8.4-10.2) mg/dL AST 209 H (17-59) U/L ALT 193 H (4-49) U/L Alkaline Phosphatase 425 H (38-126) U/L Albumin 3.0 L (3.5-5.0) g/dL - Imaging and Cardiology Chest x-ray: report reviewed, image reviewed Assessment and Plan Assessment: 1. 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 Acute hypoxic respiratory failure with sepsis on admission 3. Multiple admissions for pneumonia with empyema on the left and previous bi lateral chest tube placement in December 2019 with cultures positive for strep pneumonia 4. Rheumatoid arthritis with rheumatoid lung 5. Hypertension, currently hypotensive, requiring pressors on admission 6. Hypothyroidism 7. History of DVT 8. Previous tobacco dependence 9. Family history of lung cancer 10. Recent hospitalization for hypotension, dehydration, acute kidney injury requiring dialysis 11. Extensive subcutaneous emphysema 12. Persistent atrial flutter with RVR, status post electrical cardioversion and radiofrequency ablation, currently sinus Plan: 1. Continue Pleurx catheter with -20 cm continuous wall suction. Will monitor for resolution of air leak and decreased subcu emphysema 2. Daily chest x-rays 3. Encourage incentive spirometry. Bronchodilators per pulmonology 4. Amiodarone, Eliquis per cardiology 5. Continue voriconazole per infectious disease recommendations 6. Increase activity as tolerated. Suction tubing extended so patient may ambulate in the room, may remove suction for short times for patient to ambulate in the hallway 7. Management of other comorbidities per primary care service. 8. Teaching done with patient and regarding Pleurx catheter care. Will continue to reinforce while patient is hospitalized 9. More recommendations to follow Time with Patient: Greater than 30
[2020-09-02 09:43] LABS: Eosinophils # (M) 0.16 k/uL (0-0.7); Lymphocytes # (M) 2.53 k/uL (1.0-4.8); Metamyelocytes # (M) 0.47 k/uL (0); Metamyelocytes % 3 %; Monocytes # (M) 0.95 k/uL (0-1.0); Myelocytes # (M) 0.79 k/uL (0); Myelocytes % 5 %; Neutrophils # (M) 11.06 k/uL (1.3-7.7); Neutrophils % (M) 70 %; Nucleated Red Blood Cells 0 /100 WBC (0-0); Total Cells Counted 200
[2020-09-02 09:46] LABS: Poikilocytosis (M) Present; Polychromasia Present
[2020-09-02] MEDS: FUROSEMIDE 10 MG/ML 4 ML VIAL IV SCH (10:31)
[2020-09-02] MEDS: METOPROLOL TARTRATE 25 MG TAB PO SCH ×2 (10:32→21:30)
[2020-09-02] MEDS: VORICONAZOLE 400 MG in SODIUM CHLORIDE 0.9% 250 ML IVPB SCH ×2 (10:32→21:29)
[2020-09-02] MEDS: APIXABAN 5 MG TAB PO SCH ×2 (10:32→21:29)
[2020-09-02] MEDS: LACTATED RINGERS 1,000 ML IV SCH (10:33)
[2020-09-02] MEDS: AMIODARONE 100 MG TAB PO SCH (10:33)
[2020-09-02] MEDS: TRIAMCINOLONE 0.1% CREAM 80 GM TUBE TOPICAL SCH ×2 (10:33→21:31)
[2020-09-02 12:20] LABS: Glucose,Whole Blood 108 mg/dL (75-99)
[2020-09-02] MEDS: AMMONIUM LACTATE 12% LOTION 225 GM BTL TOPICAL SCH ×2 (12:57→21:30)
--- NOTE | 2020-09-02 13:12 | P.PN ---
Subjective Progress Note Date: 09/02/20 HISTORY OF PRESENT ILLNESS: Patient examined this morning. Patient is sitting up in the chair. He denies chest pain or pressure. He denies shortness of breath. Patient is status post cardioversion on 08/30/[address] Prieto. Unfortunately, the patient went back into atrial flutter. He underwent successful ablation yesterday with Dr. Prieto. He remains in sinus rhythm this morning. PHYSICAL EXAM: VITAL SIGNS: Reviewed. GENERAL: Well-developed in no acute distress. NECK: Supple. No JVD or thyromegaly LUNGS: Respirations even and unlabored. Lungs with scattered rhonchi. Left Pleurx chest tube noted. HEART: Regular rate and rhythm. S1 and S2 heard. EXTREMITIES: Normal range of motion. No clubbing or cyanosis. Peripheral pulses intact. No lower extremity edema ASSESSMENT: Typical atrial flutter with RVR, s/p cardioversion and ablation Acute hypoxic respiratory failure Fungal pneumonia with empyema Hypertension Hyperlipidemia PLAN: Continue Eliquis Continue amiodarone 100 mg by mouth daily for one month then discontinue Continue beta tricia Continue telemetry monitoring Pulmonary and cardiothoracic surgery following Further recommendations pending patient course Nurse practitioner note has been reviewed by physician. Signing provider agrees with the documented findings, assessment, and plan of care. Objective - Vital Signs Vital signs: Vital Signs Temp 98.3 F 09/02/20 08:00 Pulse 91 09/02/20 08:00 Resp 17 09/02/20 03:09 BP 115/71 09/02/20 08:00 Pulse Ox 91 L 09/02/20 08:00 Intake & Output 09/01/20 09/02/20 09/02/20 18:59 06:59 18:59 Intake Total 2020 410 240 Output Total 0197 213 5482 Balance 325 -125 -1010 Weight 101.8 kg Intake: IV 1060 250 LR 40 Voriconazole 400 mg In 250 Sodium Chloride 0.9% 250 ml @ 125 mls/hr IVPB Q12HR [facility] Rx#:[id number] Intake, IV Titration 160 Amount Sodium Chloride 0.9% 1, 160 000 ml @ 20 mls/hr IV . Q24H [facility] Rx#:[id number] Oral 960 240 Output: Chest Tube Drainage 120 35 Left Mid-Axillary Chest 120 35 Urine 4501 066 4498 - Labs CBC & Chem 7: 09/02/20 07:45 09/02/20 07:45 Labs: Abnormal Lab Results - Last 24 Hours (Table) 09/01/20 09/01/20 09/01/20 Range/Units 12:40 16:47 20:01 WBC (3.8-10.6) k/uL RBC (4.30-5.90) m/uL Hgb (13.0-17.5) gm/dL Hct (39.0-53.0) % MCHC (31.0-37.0) g/dL RDW (11.5-15.5) % Neutrophils # (Manual) (1.3-7.7) k/uL Metamyelocytes # (Man) (0) k/uL Myelocytes # (Manual) (0) k/uL Potassium 2.8 L (3.5-5.1) mmol/L Carbon Dioxide 37 H (22-30) mmol/L BUN 28 H (9-20) mg/dL Glucose 100 H (74-99) mg/dL POC Glucose (mg/dL) 142 H 137 H (75-99) mg/dL Calcium 8.3 L (8.4-10.2) mg/dL AST 127 H (17-59) U/L ALT 120 H (4-49) U/L Alkaline Phosphatase 320 H (38-126) U/L Albumin 2.9 L (3.5-5.0) g/dL 09/01/20 09/02/20 09/02/20 Range/Units 21:36 07:45 07:45 WBC 15.8 H (3.8-10.6) k/uL RBC 3.76 L (4.30-5.90) m/uL Hgb 10.0 L (13.0-17.5) gm/dL Hct 33.9 L (39.0-53.0) % MCHC 29.5 L (31.0-37.0) g/dL RDW 19.0 H (11.5-15.5) % Neutrophils # (Manual) 11.06 H (1.3-7.7) k/uL Metamyelocytes # (Man) 0.47 H (0) k/uL Myelocytes # (Manual) 0.79 H (0) k/uL Potassium 3.0 L 3.0 L (3.5-5.1) mmol/L Carbon Dioxide 37 H (22-30) mmol/L BUN 27 H (9-20) mg/dL Glucose (74-99) mg/dL POC Glucose (mg/dL) (75-99) mg/dL Calcium (8.4-10.2) mg/dL AST 209 H (17-59) U/L ALT 193 H (4-49) U/L Alkaline Phosphatase 425 H (38-126) U/L Albumin 3.0 L (3.5-5.0) g/dL 09/02/20 Range/Units 12:14 WBC (3.8-10.6) k/uL RBC (4.30-5.90) m/uL Hgb (13.0-17.5) gm/dL Hct (39.0-53.0) % MCHC (31.0-37.0) g/dL RDW (11.5-15.5) % Neutrophils # (Manual) (1.3-7.7) k/uL Metamyelocytes # (Man) (0) k/uL Myelocytes # (Manual) (0) k/uL Potassium (3.5-5.1) mmol/L Carbon Dioxide (22-30) mmol/L BUN (9-20) mg/dL Glucose (74-99) mg/dL POC Glucose (mg/dL) 108 H (75-99) mg/dL Calcium (8.4-10.2) mg/dL AST (17-59) U/L ALT (4-49) U/L Alkaline Phosphatase (38-126) U/L Albumin (3.5-5.0) g/dL
--- NOTE | 2020-09-02 14:15 | P.PN ---
Subjective Progress Note Date: 09/01/20 This is a 60-year-old male patient requesting my service with past medical history of rheumatoid arthritis on Arava that was diagnosed when he was 37 year old initially was started on Methotrexate that he could not tolerate then placed on Embrel but he developed side effects and finally was tried on Humira injection but he developed neurologic sided effects and was hospitaized at [facility] for quiet some time, rheumatoid lung disease, previous history of loculated empyema with chest tube placement in January 2020, hypertension, hypothyroidism, history of DVT, remote history of tobacco use and dependence, was recently hospitalized at [facility] after he was admitted for an acute kidney injury with significant metabolic acidosis associated with the elevated creatinine and elevated BUN and hypotension at that time he was seen and evaluated by pulmonary and critical care medicine, he had a central line placed and at that time, he was placed on Levophed drip he was p laced on IV anabiotic as well but the patient recovered very fast and he had an echocardiogram that showed normal LV function and segmental hypokinesia, he was supposed to follow-up with Dr. 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 and he had an episode when he was dizzy lightheaded and an episode of vomiting as well and he was sent to the emergency department for evaluation had a computed tomography of the chest as well as abdomen and pelvis that showed a thick walled pleural cavities posteriorly in the lower lungs with left-sided air-fluid level that has diminished in size from the prior computed tomography scan when he was in the hospital a few weeks back there is also associated compressive atelectasis and chronic consultation with multifocal areas of reticular nodular opacity in the upper lungs with a slight nodularity of the left upper lobe again this area of focal consultation has improved from the previous study that was done few weeks ago, patient was started on IV antibiotic with vancomycin and Zosyn as well as IV fluid, he was seen in consultation by pulmonary critical care in the emergency department as the patient blood pressure dropped and that he'll be transferred to the intensive care unit at this point in time I had long conve rsation with the patient and his at the bedside and the patient may need to have a chest tube placed for his possible right empyema, he did receive 3 L normal saline in the ER, and his blood pressure is marginal he may need to go on pressors if not recovered. 08/20:patient is sitting up in chair feeling about the same , complains of increased pain in the righ elbow, was seen earlier by pulmonary and the plan was to go for US-Guided left thoracenthesis due to to loculated left pleural effu unique and possible empyema, may need VATS, he denies any chest pain or shortness of breath, no abdominal pain nausea, vomiting or diarrhea, still have diarrhea negative for C.Diff, he seems to have accept to stay in the hospital this time as long as he needed to. 08/21: Patient sitting up in the recliner complaining of increased pain in his joints due to his rheumatoid arthritis with increased synovitis in both wrists both elbows and both shoulders he was started on hydrocortisone 100 mg IV push every 8 hours, to try to help with his blood pressure as well as his phonation, he is maintained on [place] 5/325 mg one tablet orally every 6 hours as needed for pain control, patient denies any chest pain is less short of breath, he continues to have increased coughing with yellow from production of green phlegm production, he had no fever or chills at this time he continues to be on Levothroid drip, patient has appeared to have increased swelling in both lower extremities as well as both ankles, he is maintained on IV antibiotic in the form of vancomycin as well as cefepime, infectious disease is following, patient is scheduled to go for ultrasound guidance thoracentesis of the left loculated pleural effusion tomorrow morning. 08/22: Patient remains in the intensive care unit. He has been afebrile, heart rate 100, blood pressure 95/62, pulse ox 97% on 2 L nasal cannula. Hemoglobin 8.8 and leukocytosis resolved. Creatinine 0.76, electrolytes normal. Sputum culture is positive for Aspergillus species. Blood culture showing no growth. Patient underwent diagnostic thoracentesis with interventional radiology today with removal of 45 mL of cloudy white fluid. Chest x-ray reveals no complications following left thoracentesis. Fluid has been sent for culture and cytology. Consult in place for cardiothoracic surgery to evaluate for VATS with decortication. 08/23: Patient remains in the intensive care unit. He did receive 1 dose of IV Lasix this morning ordered by nephrology. He is followed by cardiothoracic surgery was no plan for surgical intervention. ID has recommended cefepime and vancomycin for now. Expect antifungal agent ended as well. Patient denies any significant shortness of breath. He is comfortable sitting in a chair. Patient is having minimal cough and minimal sputum. Patient is achieving 1000 ml on incentive spirometry. Culture and cytology reports remain pending from thoracentesis. Repeat chest x-ray reveals patchy peripheral lung with lung zone and lower lung zone infiltrates persist unchanged. Patient has been afebrile, heart rate in the 90s and low 100s, pulse ox 91 on room air. 23: Repeat chest x-ray reveals left-sided basilar loculated pneumothorax, stable. Bilateral lung infiltrates. Correlate for pneumonia and atelectasis. WBC 9, hemoglobin 9.5. Potassium 3.4 and will be replaced. Patient is continued on cefepime and vancomycin per Dr. Blanton's recommendations. Patient in reaching 1000 on incentive spirometry. Patient is scheduled to see Dr. Dubois tomorrow. Cefepime and vancomycin had been discontinued by Dr. Blanton and started on Voriconazole. 08/25: A-Team was called this morning regarding elevated heart rate, EKG was atrial flutter with RVR and 150 bpm and patient was transferred to ICU as an overflow for the cardiac stepdown unit, started on Cardizem drip and consult with cardiology. Heart rate was improved with Cardizem and patient also received amiodarone bolus 300 mg. Patient denies any worsening shortness of breath, cough or congestion. No chest pain or palpitations. Patient is resting comfortably. 09, hemoglobin 8.8, potassium 3.4 replaced. Creatinine 0.89. 08/26: Patient remains in the intensive care unit. He continues to be in atrial flutter with 21 conduction rate. He is on heparin drip and amiodarone. He is currently in and out of atrial flutter with RVR. Cardiology is following closely and may consider cardioversion tomorrow. WBC 16.6, hgb 9.8, plt 374, sodium 143, potassium 3.9, creatinine 0.88. He has been afebrile, heart rate has been at times marginal, pulse ox 90% on room air. Patient denies having any fever or chills, no shortness of breath, no cough. No chest pain. Patient is followed by cardiothoracic surgery and plan is for left-sided PleurX catheter placement which is scheduled for Saturday. 08/29: Patient is scheduled for PleurX catheter placement this afternoon. Cardiology may schedule him for cardioversion. Dr. Woodall is planning on oral antimicrobials at the time of discharge. Patient is bringing up quite a bit of sputum. He has been afebrile, heart rate 68, blood pressure 100/67, pulse ox 93% on 1 L nasal cannula. WBC 21, hemoglobin 9.6, platelet count 325. Potassium 3, BUN 28 creatinine 0.8. 08/30: Patient is status post PleurX catheter. Patient has been afebrile, heart rate 106, blood pressure 85/53. Pulse ox 97% on 2 L. Patient is known to be back in atrial fibrillation at rate of 122. He did go for cardioversion today for atrial flutter. Patient states he has a little pain in the side for which she is taking [place]. Not bad today. Patient has subcutaneous edema to bilateral chest. He denies having any headache. BUN 27 creatinine 0.79. Blood sugar 90-126. 08/31: Patient denies chest pain or shortness of breath. He is reaching 1250 on IS. PleurX draining small amount of sanguinous fluid. Patient is in atrial flutter. Dr. Prieto is planning for EP study and ablation on and plan to continue eliquis. Patient is also on Lopressor 25 mg 3 times daily. Patient has been afebrile, heart rate 97, blood pressure 106/65, pulse ox 98% on room air. Blood sugars running between 112 and 67. Patient is covered with Voriconazole. Lac-Hydrin added for bilateral legs. 09/01: Patient is status post successful atrial flutter ablation with Dr. Prieto. Cardiology has recommended amlodipine 100 mg twice daily for 1 month. personnel monitor is a sinus rhythm with PACs. Metoprolol was decreased to 25 mg twice daily. Patient is on eliquis 5 mg twice daily. Patient has been afebrile, heart rate 64, blood pressure 121/77. Potassium 2.3 and replaced. Repeat level will be obtained this evening. Pleurx catheter remains in place connected to Pleur-evac with intermittent air leak. He has minimal output. Tyrone martell is continued on Advair, so for Aspergillus fungal infection managed by Dr. Blanton. He is planning on oral antimicrobial at the time of discharge. Objective - Vital Signs Vital signs: Vital Signs Temp 97.4 F L 09/01/20 09:18 Pulse 80 09/01/20 10:20 Resp 16 09/01/20 09:49 BP 121/77 09/01/20 10:20 Pulse Ox 86 L 09/01/20 10:20 Intake & Output 08/31/20 09/01/20 09/01/20 18:59 06:59 18:59 Intake Total 2619 587 0103 Output Total 1300 435 Balance -120 -85 1020 Weight 100.4 kg Intake: IV 350 1020 0.9 100 Voriconazole 400 mg In 250 Sodium Chloride 0.9% 250 ml @ 125 mls/hr IVPB Q12HR [facility] Rx#:[id number] Oral 1180 Output: Chest Tube Drainage 50 35 Left Mid-Axillary Chest 50 35 Urine 1250 400 Other: Voiding Method Toilet Urinal - Exam Review of Systems Constitutional: Reports anorexia, Reports chronic pain, Reports fatigue, denies weakness, Reports weight loss Eyes: denies blurred vision, denies bulging eye, denies decreased vision, denies diplopia Ears, nose, mouth and throat: Denies dysphagia, Denies neck lump, Denies sore throat Respiratory: Reports dyspnea, Reports respiratory infections, Denies congestion, Denies cough with sputum, Denies home oxygen, Denies sleep apnea, Denies snoring, Denies wheezing Cardiac: No chest pain. No palpitations. No lower extremity edema. No syncopal episodes. Gastrointestinal: Reports bloating, Reports change in bowel habits, Reports diarrhea, Reports early satiety, Reports indigestion, Reports loss of appetite, Reports nausea, Reports vomiting, Denies abdominal pain, Denies belching, Denies heartburn, Denies hematemesis, Denies hematochezia, Denies melena Genitourinary: Denies dysuria, Denies nocturia Musculoskeletal: Denies myalgias Musculoskeletal: absent: ankle pain, ankle stiffness, ankle swelling, elbow pain, elbow stiffness, elbow swelling, foot pain, foot stiffness, foot swelling, hand pain, hand stiffness, hand swelling, hip pain, hip stiffness, hip swelling, knee pain, knee stiffness, knee swelling, shoulder pain, shoulder stiffness, shoulder swelling, wrist pain, wrist stiffness, wrist swelling Integumentary: Denies pruritus, Denies rash Neurological: Denies numbness, Denies weakness Psychiatric: Denies anxiety, Denies depression Endocrine: Denies fatigue, Denies weight change Physical examination: General: This is a 60-year-old male. Patient is resting in bed and appears to be comfortable. HEENT: head ia atraumatic normocephalic, Pupils were equal round reactive to light and accommodations , extra ocular muscle movement were intact, mucous membranes of the mouth are somewhat dry. Neck: supple no JVP. Chest: decreased breath sounds at he bases no expiratory wheezes no chest wall tendernes or intercostal retractions. PleurX cath in placePositive subcutaneous emphysema. Heart: first heart sound is depressed, second heart sound is normal tachycardic and irregular there is BIRD 2/6 located at the left sternal border. Abdomen: soft, mild tenderness to the left lower quadrant positive bowel sounds, no guarding or rebound tenderness, no hepatosplenomegaly. Extremities: there is no edema or calf tenderness DP+ 2 Bilaterally, there is what appears to be a charcot joint in the right foot form arch collapse. Neurologic examination: patient is awake , alert and oriented X 3 CN II-XII are grossly intact, muscle power 4/5 in bilateral upper and lower extremities, deep tendon reflexes were normal. - Labs CBC & Chem 7: 09/02/20 07:45 09/02/20 07:45 Labs: Abnormal Lab Results - Last 24 Hours (Table) 08/31/20 08/31/20 Range/Units 16:48 20:28 POC Glucose (mg/dL) 163 H 202 H (75-99) mg/dL Assessment and Plan Assessment: 1. Acute hypoxemic respiratory failure secondary to loculated left-sided pleural effusion and fungal empyema with what appears to be recurrent pneumonia. Continue Voriconazole 200 mg every 12 hours IV piggyback per Dr. Blanton, interventional radiology performed ultrasound-guided thoracentesis of the left loculated pleural fluid for Gram stain and culture and cytology as well as LDH protein as well as pH for possible empyema. Culture positive for Aspergillus. Cardiothoracic surgery status post Pleurx catheter insertion. 2. Lactic acidosis. Resolved, repeat lactic acid is back to normal. 3. Sepsis with septic shock. Patient has been weaned off Levothroid drip. 4. Acute kidney injury due to poor oral intake of fluid as well as hypotension with acute tubular necrosis. Patient is on IV fluid, continue to monitor the patient CMP continue to monitor urine output. Nephrology is following. 5. Leukocytosis secondary to severe sepsis secondary to empyema. Continue IV fluid, continue IV antibiotic, repeat CBC tomorrow morning. 6. Persistent atrial flutter with RVR. Status post cardioversion, converted back. Status post ablation completed by Dr. Prieto. Patient to continue eliquis. She was continued on amiodarone 100 mg daily for one month Cardiology consult appreciated. 7. Rheumatoid arthritis and rheumatoid lung. Arava and Xeljanz had been on hold since April, patient was started on hydrocortisone 50 mg IV push every 8 hours. 8. History of empyema with Streptococcus requiring chest tube. 9. Hypertension and hypertensive cardiovascular disease. currently hypotensive. 10. Hypothyroidism . we will continue with Synthroid 150 mcg orally daily. 11. DVT prophylaxis. we will start Lovenox 40 mg SC daily and bilateral knee high Cecilio Hose 12. GI prophylaxis. we will continue with Protonix 40 mg IVP daily. 13. Prognosis continues to be guarded. Discharge plan: home Impression and plan of care have been directed as dictated by the signing physician. Yumiko Brown nurse practitioner acting as scribe for signing physician.
--- NOTE | 2020-09-02 15:36 | P.PN ---
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 Other medical history includes hypertension, hypothyroidism and previous history of DVT. Patient had a recent hospitalization from August 08 through 08/11/2020 hypotension, dehydration related to nausea vomiting diarrhea, acute kidney injury. Patient received antibiotics in the form of Zosyn and Levaquin for possibility of pneumonia, he is chest x-ray showed cranial perihilar pulmonary infiltrates with increased interstitial changes at the lung bases and was thought to be related to a combi nation of rheumatoid lung and chronic scarring. His last CT of the chest was on 07/19/2020 showing chronic changes to lower lungs, persistent irregular thick- walled pleural spaces in the posterior lung bases containing fluid and air with adjacent anterior lung with chronic consolidation or atelectasis. On 08/19/2020 patient came into the emergency department from Dr. GENE Carias's office where he w as being seen for a regular follow-up appointments. He was noted to have low pulse ox 70s and was sent in to the emergency department for evaluation. He has been having cough with yellow and sometimes blood-tinged sputum, appears amounts, denies any fever, COVID 19 was found to be negative, chest x-ray showed perihilar and basilar infiltrates without significant change from previous chest x-ray on 08/09/2020. Lab data showed leukocytosis with white blood cell count of 19.1, hemoglobin of 12.1, INR 1.5, sodium is 135, potassium is 3.9, chloride is 102, CO2 is 19, creatinine is 1.32, which has actually improved since his discharge from the hospital on 08/11/2020 when he was at 1.84. Lactic acid was elevated at 3.7, patient was given a total of 2 L in fluid boluses, troponin was negative at less than 0.012. Urinalysis showed no evidence of infection. CT chest showed thick-walled pleural cavities posteriorly in the lower lungs with left-sided air-fluid level with left-sided pleural fluid diminished most recent CT from 07/19/2020. There is associated compressive atelectasis and/or chronic consolidation. Persistent as it is lobe fissure, multifocal areas of reticular nodular opacity in the upper lungs remain present with slight nodularity in the left upper lobe. There is a focal consolidation improved from most recent study with some residual areas of scarring. We will emergency department patient became hypotensive with a blood pressure in the 70s, slightly tachycardic r emains in sinus mechanism, he is receiving his third liter bolus, his lactic acid did respond and improved he was started on antibiotics in the form of Zosyn and vancomycin The patient is seen today August 20 2020 in the intensive care unit. He is currently sitting up in a chair at the bedside. Awake and alert in no acute distress. Maintaining O2 saturations in the 90s on 2 L/m per nasal cannula. He did require a small dose of norepinephrine currently on 0.05 mcg/kg/m. He has lactated Ringer's at 100 MLS per hour. He remains on vancomycin and cefepime. Chest x-ray continues to show the left lower lobe effusion. White count 11.7. Hemoglobin 9.7. Sodium 135. Potassium 3.6. Creatinine 1.00. Blood cultures reveal no growth to date. Reevaluated today on 08/21/2020, remains in the ICU, still on norepinephrine at 0.04 mcg/kg/m. On LR at 1 25 mL per hour. On vancomycin and cefepime empirically, blood pressure remains marginal, went ahead and recommended Solu- Cortef 100 mg IV push every 8 hours and hopefully will be able to discontinue norepinephrine today. His IV fluid is cut down to KVO. Given 20 mg of Lasix IV push, and I have recommended that we monitor the patient in the ICU for the next 24 hours. Chest x-ray is basically the same, continues to show chronic finding, difficult to exclude underlying pneumonia/empyema. CT of the chest on admission was also reviewed, difficult to rule out underlying empyema. Clinically the patient is feeling better except for generally weak. WBC count is 12.5 hemoglobin is 9.9. Normal renal profile is normal blood cultures are negative so far. Sputum cultures are also negative so far. On 08/22/2020 patient seen in follow-up in the intensive care unit, he is awake and alert, oriented 3, sitting up in the recliner, currently on 2 L of oxygen his pulse ox is 95-100%, his been afebrile, hemodynamically he is stable, he is not on any vasopressor support. His lactate Ringer's running at 20 ML per hour, antibiotics include cefepime and vancomycin, blood pressure has been stable, so far blood and sputum cultures are negative, he denies chest pain, his breathing is comfortable. Today's labs have been reviewed, showing white blood cell count trending down, 10.2 today, hemoglobin is 8.8, electrolytes and renal profile are unremarkable. Serum cortisol level came back at 3, patient continues on stress doses of hydrocortisone 100 mg every 8 hours. Patient has not been stable, we'll consult interventional radiology for ultrasound-guided left thoracentesis On 08/23/2020 patient seen in follow-up in the intensive care unit, he is calm and comfortable, awake and alert, sitting up in the recliner, currently on room air with a pulse ox of 93-94%, his been afebrile, hemodynamically he is been stable, he is on IV LR at 20 ML per hour, no other drips. He is on cefepime and vancomycin for antibiotic coverage, yesterday he underwent left thoracentesis with removal of 43 mL of pleural fluid which was sent for cultures. Tolerated procedure well. His pleural fluid analysis revealed total fluid protein of 1.3 g, and fluid LDH of greater than 4500 consistent with exudative fluid. His microbiology data has been reviewed showing Aspergillus fumigate is in the sputum, his pleural fluid cultures are pending at this time, the cultures have shown no growth, hemodynamically has been stable, he is breathing easier, he still has cough mostly in the morning and the amount of secretions his bringing up is decreasing in amount. Lung sounds revealed a few scattered wheezes, and a few rhonchi at bilateral bases. Is tolerating oral intake. No abdominal pain, no nausea or vomiting, today's labs have been reviewed, white blood cell count is 11.2, hemoglobin is 9.1, sodium is 137, potassium is 4.0, chloride is 109, BUN is 15, creatinine 0.80. No acute events overnight. He is working on incentive spirometer, he is achieving 1000 today On 08/24/2020 patient seen in follow-up on medical surgical floor. He is awake and alert, in no acute distress, breathing comfortably, denies any chest pain, room air pulse ox is 94%, no fever or chills, today's chest x-ray shows left basilar loculated pneumothorax, stable in appearance, bilateral lung infiltrates. His pleural fluid cultures so far showing Aspergillus species, as does his sputum culture. Blood culture show no growth. The cervix is following, current antibiotic coverage includes cefepime, vancomycin has been discontinued, she received 1 dose of IV Lasix per nephrology. He has produced 2500 in urine output, and he is in -1.6 L over the last 24 hours, however he still has significant lower extremity edema On 08/26/2020 patient seen in follow-up in the intensive care unit, he is awake and alert, in no acute distress, on room air, his pulse ox is 93%, currently on amiodarone at 0.5 mg/m, heparin infusion per weight based protocol, 0.9 normal saline at a rate of 10 ML per hour, his heart rate is still poorly controlled, he remains in atrial flutter with a rate of 140 BPM. He's had no fever or chills, he status post ultrasound-guided thoracentesis of the left pleural space with removal of 45 mL of pleural fluid in the cultures were positive for Aspergillus. Infectious disease service is following, and voriconazole was started. Clinically patient denies any shortness of breath, no cough, no compressive chest pain, we discussed the case with the cardiothoracic surgery yesterday, and plan is to proceed with the placement of Pleurx catheter into the left pleural space today. On 08/31/2020 patient seen in follow-up. Sitting up in the recliner, breathing comfortably, his on 2 L of oxygen pulse ox of 90%, he's been afebrile, morgan bcutaneous emphysema slightly worsened especially involving right upper chest area, left chest Pleurx catheter remains in place, connected to Pleur-evac to suction and there is some intermittent air leak still present, his chest x-ray shows severe bilateral septic hence emphysema, small left basilar hydropneumothorax, and bilateral patchy infiltrates right greater than left not significantly changed, patient remains on voriconazole, and his left chest pleural fluid fungal culture was positive for Aspergillus fumigatus. Total fluid cytology was not sent however pathology lab still has the pleural fluid which we will request cytology. On 09/01/2020 patient seen in follow-up. He is resting in bed, subcu emphysema in his bilateral upper chest seems to have slightly progressed since yesterday, no significant extension to his neck area, his voice is still left chest Pleurx catheter in place connected to Pleur-evac and there is intermittent air leak at times it is more continuous. There has only been 85 mL of serosanguineous output in the last 24 hours, pleural fluid cytology was sent from the pleural fluid collected on 07/31/2020, results are pending. Continues on voriconazole for evidence of Aspergillus fungal infection in the pleural space. Today's labs reviewed, showing blood vessel, 16, hemoglobin is 9.7, sodium is 143, potassium is 2.8, chloride is 100 CO2 is 27 BUN is 28 and creatinine 0.78, LFTs seems to have acutely increased, with AST up to 127, ALT is 120, and alkaline phosphatase of 320. No fever or chills, patient of breath but no acute distress, today's chest x-ray shows extensive subcutaneous emphysema, small pneumothoraces at the lung bases, in worsening-appearing infiltrate through the right lung base. On 09/02/2020 patient seen in follow-up. His left-sided Pleurx catheter remains connected to Pleur-evac continuous wall suction, and the air leak is slightly better however it still consistent and intermittent in nature today, his subcutaneous emphysema remains stable, has not significantly increased. Room air pulse ox is 90%, patient is working on the incentive spirometer, he is pulling [id number] on the today, he's been afebrile, he remains on voriconazole for antibiotic coverage, chest x-ray today shows a left basilar pleural catheter unchanged in position, and extensive subcutaneous emphysema throughout the chest wall and neck, there is no sizable pneumothorax, and there is diffuse infiltrate throughout the right lung, left lower lobe. Today's labs have been reviewed, when blood cell count is 15.8, hemoglobin is 10, sodium is 141, potassium is 3.0, chloride is 99, CO2 is 37, B1 is 27, creatinine 0.82, AST is 209, ALT is 193, alkaline phosphatase is 425, and his liver enzymes are trending up. We will ask infectious disease to see if this could be related to the antibiotics Objective - Vital Signs Vital signs: Vital Signs Temp 98.3 F 09/02/20 08:00 Pulse 79 09/02/20 12:00 Resp 17 09/02/20 03:09 BP 114/66 09/02/20 12:00 Pulse Ox 90 L 09/02/20 12:00 Intake & Output 09/01/20 09/02/20 09/02/20 18:59 06:59 18:59 Intake Total 2020 410 780 Output Total 9283 812 6631 Balance 325 -125 -1170 Weight 101.8 kg Intake: IV 1060 250 LR 40 Voriconazole 400 mg In 250 Sodium Chloride 0.9% 250 ml @ 125 mls/hr IVPB Q12HR [facility] Rx#:[id number] Intake, IV Titration 160 Amount Sodium Chloride 0.9% 1, 160 000 ml @ 20 mls/hr IV . Q24H [facility] Rx#:[id number] Oral 960 780 Output: Chest Tube Drainage 120 35 Left Mid-Axillary Chest 120 35 Urine 6665 [id number] - Exam GENERAL EXAM: Alert, pleasant, 60-year-old male patient, on room air with a pulse ox of 94%, currently sitting up in chair at the bedside, comfortable in no apparent distress. HEAD: Normocephalic/atraumatic. EENT: PERRLA, EOMI, nonicteric. Moist mucous membranes, no neck masses, no JVD, no stridor. CHEST: No chest wall deformity. Symmetrical expansion. Left chest Pleurx catheter connected to Pleur-evac, to wall suction, with intermittent air leak present, serosanguineous output in the Pleur-evac. There is extensive subcuta neous emphysema in his anterior bilateral upper chest, extending into his neck and shoulders LUNGS: Bibasilar rhonchi, and a few scattered wheezes CVS: Regular rate and rhythm, normal S1 and S2, no gallops, no murmurs, no rubs ABDOMEN: Soft, nontender. No hepatosplenomegaly, normal bowel sounds, no guarding or rigidity. EXTREMITIES: No clubbing, 1+ lower extremity edema, no cyanosis, 2+ pulses and upper and lower extremities. MUSCULOSKELETAL: Muscle strength and tone normal. SPINE: No scoliosis or deformity SKIN: No rashes CENTRAL NERVOUS SYSTEM: Alert and oriented -3. No focal deficits, tone is normal in all 4 extremities. PSYCHIATRIC: Alert and oriented -3. Appropriate affect. Intact judgment and insight. - Labs CBC & Chem 7: 09/02/20 07:45 09/02/20 07:45 Labs: Abnormal Lab Results - Last 24 Hours (Table) 09/01/20 09/01/20 09/01/20 Range/Units 16:47 20:01 21:36 WBC (3.8-10.6) k/uL RBC (4.30-5.90) m/uL Hgb (13.0-17.5) gm/dL Hct (39.0-53.0) % MCHC (31.0-37.0) g/dL RDW (11.5-15.5) % Neutrophils # (Manual) (1.3-7.7) k/uL Metamyelocytes # (Man) (0) k/uL Myelocytes # (Manual) (0) k/uL Potassium 3.0 L (3.5-5.1) mmol/L Carbon Dioxide (22-30) mmol/L BUN (9-20) mg/dL POC Glucose (mg/dL) 142 H 137 H (75-99) mg/dL AST (17-59) U/L ALT (4-49) U/L Alkaline Phosphatase (38-126) U/L Albumin (3.5-5.0) g/dL 09/02/20 09/02/20 09/02/20 Range/Units 07:45 07:45 12:14 WBC 15.8 H (3.8-10.6) k/uL RBC 3.76 L (4.30-5.90) m/uL Hgb 10.0 L (13.0-17.5) gm/dL Hct 33.9 L (39.0-53.0) % MCHC 29.5 L (31.0-37.0) g/dL RDW 19.0 H (11.5-15.5) % Neutrophils # (Manual) 11.06 H (1.3-7.7) k/uL Metamyelocytes # (Man) 0.47 H (0) k/uL Myelocytes # (Manual) 0.79 H (0) k/uL Potassium 3.0 L (3.5-5.1) mmol/L Carbon Dioxide 37 H (22-30) mmol/L BUN 27 H (9-20) mg/dL POC Glucose (mg/dL) 108 H (75-99) mg/dL AST 209 H (17-59) U/L ALT 193 H (4-49) U/L Alkaline Phosphatase 425 H (38-126) U/L Albumin 3.0 L (3.5-5.0) g/dL Assessment and Plan Plan: Assessment: #1. Acute hypoxic respiratory failure related to sepsis, septic shock, related to pneumonia, with chronic loculated effusions, rule out possibility of empyema. COVID 19 was ruled out per PCR. Pleural fluid culture positive for Aspergillus fumigators, patient is on voriconazole, ideally patient would benefit from surgical intervention including thoracoscopy/decortication however this could be an extensive surgery for him in patient had the left chest Pleurx catheter inserted for drainage Patient is post insertion of a left-sided Pleurx catheter and instillation of amphotericin B into the pleural space, the left lung was trapped with fungal empyema, patient has intermittent air leak, and there is a subcutaneous emphysema involving neck, upper chest #2. Bilateral hydropneumothorax, rule out possibility of empyema, status post ultrasound-guided left-sided thoracentesis on 08/22/2020 would removal of 45 mL of cloudy white fluid, which was exudative in nature, pleural fluid culture only showing Aspergillus, antibiotic coverage is with cefepime and vancomycin, it service is following, CT surgery has no plans for surgical intervention at this time. on 08/31/2020 patient is on voriconazole for evidence of Aspergillus fumigators in the pleural fluid #3. Recent admission to the hospital for hypotension, dehydration related to nausea vomiting diarrhea, acute kidney injury #4. Recurrent pulmonary infections, with history of streptococcal pneumonia and empyema requiring chest tube placement in January 2020 #5. Chronic loculated pneumothoraces, posterior, with air-fluid level seen on the CT imaging of the chest, the possibility of trapped lung, chronic scarring and possibility of empyema needs to be ruled out #6. Elevated d-dimer with no CT evidence for pulmonary embolism #7. History of rheumatoid arthritis and rheumatoid lung disease on Arava #8. Recent history of acute kidney injury, and admission lab work today shows improvement in his renal function #9. Hypertension #10. Hypothyroidism #11. Previous history of foot infections requiring antibiotics #12. Previous history of DVT #13. Transaminitis possibly related to antifungal antibiotics, will obtain follow-up labs Plan: Continue wall suction to the left Pleurx chest tube, the air leak although slightly diminished still persistent. Continue encouraging deep breathing and coughing, but her enzymes are increasing, and this is probably related to the voriconazole, defer to the infectious disease to see if there is a another alternative for antibiotic coverage for Aspergillus pneumonia. Follow-up CMP in the morning. I performed a history & physical examination of the patient and discussed their management with my nurse practitioner, Марина Thompson. I reviewed the nurse practitioner's note and agree with the documented findings and plan of care. Lung sounds are positive for diminished breath sounds. The findings and the impression was discussed with the patient. I attest to the documentation by the nurse practitioner. Time with Patient: Less than 30
--- NOTE | 2020-09-02 16:21 | P.PN ---
Subjective Progress Note Date: 09/02/20 This is a 60-year-old male patient requesting my service with past medical history of rheumatoid arthritis on Arava that was diagnosed when he was 37 year old initially was started on Methotrexate that he could not tolerate then placed on Embrel but he developed side effects and finally was tried on Humira injection but he developed neurologic sided effects and was hospitaized at [facility] for quiet some time, rheumatoid lung disease, previous history of loculated empyema with chest tube placement in January 2020, hypertension, hypothyroidism, history of DVT, remote history of tobacco use and dependence, was recently hospitalized at [facility] after he was admitted for an acute kidney injury with significant metabolic acidosis associated with the elevated creatinine and elevated BUN and hypotension at that time he was seen and evaluated by pulmonary and critical care medicine, he had a central line placed and at that time, he was placed on Levophed drip he was p laced on IV anabiotic as well but the patient recovered very fast and he had an echocardiogram that showed normal LV function and segmental hypokinesia, he was supposed to follow-up with Dr. 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 and he had an episode when he was dizzy lightheaded and an episode of vomiting as well and he was sent to the emergency department for evaluation had a computed tomography of the chest as well as abdomen and pelvis that showed a thick walled pleural cavities posteriorly in the lower lungs with left-sided air-fluid level that has diminished in size from the prior computed tomography scan when he was in the hospital a few weeks back there is also associated compressive atelectasis and chronic consultation with multifocal areas of reticular nodular opacity in the upper lungs with a slight nodularity of the left upper lobe again this area of focal consultation has improved from the previous study that was done few weeks ago, patient was started on IV antibiotic with vancomycin and Zosyn as well as IV fluid, he was seen in consultation by pulmonary critical care in the emergency department as the patient blood pressure dropped and that he'll be transferred to the intensive care unit at this point in time I had long conve rsation with the patient and his at the bedside and the patient may need to have a chest tube placed for his possible right empyema, he did receive 3 L normal saline in the ER, and his blood pressure is marginal he may need to go on pressors if not recovered. 08/20:patient is sitting up in chair feeling about the same , complains of increased pain in the righ elbow, was seen earlier by pulmonary and the plan was to go for US-Guided left thoracenthesis due to to loculated left pleural effu unique and possible empyema, may need VATS, he denies any chest pain or shortness of breath, no abdominal pain nausea, vomiting or diarrhea, still have diarrhea negative for C.Diff, he seems to have accept to stay in the hospital this time as long as he needed to. 08/21: Patient sitting up in the recliner complaining of increased pain in his joints due to his rheumatoid arthritis with increased synovitis in both wrists both elbows and both shoulders he was started on hydrocortisone 100 mg IV push every 8 hours, to try to help with his blood pressure as well as his phonation, he is maintained on Hendrum 5/325 mg one tablet orally every 6 hours as needed for pain control, patient denies any chest pain is less short of breath, he continues to have increased coughing with yellow from production of green phlegm production, he had no fever or chills at this time he continues to be on Levothroid drip, patient has appeared to have increased swelling in both lower extremities as well as both ankles, he is maintained on IV antibiotic in the form of vancomycin as well as cefepime, infectious disease is following, patient is scheduled to go for ultrasound guidance thoracentesis of the left loculated pleural effusion tomorrow morning. 08/22: Patient remains in the intensive care unit. He has been afebrile, heart rate 100, blood pressure 95/62, pulse ox 97% on 2 L nasal cannula. Hemoglobin 8.8 and leukocytosis resolved. Creatinine 0.76, electrolytes normal. Sputum culture is positive for Aspergillus species. Blood culture showing no growth. Patient underwent diagnostic thoracentesis with interventional radiology today with removal of 45 mL of cloudy white fluid. Chest x-ray reveals no complications following left thoracentesis. Fluid has been sent for culture and cytology. Consult in place for cardiothoracic surgery to evaluate for VATS with decortication. 08/23: Patient remains in the intensive care unit. He did receive 1 dose of IV Lasix this morning ordered by nephrology. He is followed by cardiothoracic surgery was no plan for surgical intervention. ID has recommended cefepime and vancomycin for now. Expect antifungal agent ended as well. Patient denies any significant shortness of breath. He is comfortable sitting in a chair. Patient is having minimal cough and minimal sputum. Patient is achieving 1000 ml on incentive spirometry. Culture and cytology reports remain pending from thoracentesis. Repeat chest x-ray reveals patchy peripheral lung with lung zone and lower lung zone infiltrates persist unchanged. Patient has been afebrile, heart rate in the 90s and low 100s, pulse ox 91 on room air. 23: Repeat chest x-ray reveals left-sided basilar loculated pneumothorax, stable. Bilateral lung infiltrates. Correlate for pneumonia and atelectasis. WBC 9, hemoglobin 9.5. Potassium 3.4 and will be replaced. Patient is continued on cefepime and vancomycin per Dr. Blanton's recommendations. Patient in reaching 1000 on incentive spirometry. Patient is scheduled to see Dr. Dubois tomorrow. Cefepime and vancomycin had been discontinued by Dr. Blanton and started on Voriconazole. 08/25: A-Team was called this morning regarding elevated heart rate, EKG was atrial flutter with RVR and 150 bpm and patient was transferred to ICU as an overflow for the cardiac stepdown unit, started on Cardizem drip and consult with cardiology. Heart rate was improved with Cardizem and patient also received amiodarone bolus 300 mg. Patient denies any worsening shortness of breath, cough or congestion. No chest pain or palpitations. Patient is resting comfortably. 09, hemoglobin 8.8, potassium 3.4 replaced. Creatinine 0.89. 08/26: Patient remains in the intensive care unit. He continues to be in atrial flutter with 21 conduction rate. He is on heparin drip and amiodarone. He is currently in and out of atrial flutter with RVR. Cardiology is following closely and may consider cardioversion tomorrow. WBC 16.6, hgb 9.8, plt 374, sodium 143, potassium 3.9, creatinine 0.88. He has been afebrile, heart rate has been at times marginal, pulse ox 90% on room air. Patient denies having any fever or chills, no shortness of breath, no cough. No chest pain. Patient is followed by cardiothoracic surgery and plan is for left-sided PleurX catheter placement which is scheduled for Saturday. 08/29: Patient is scheduled for PleurX catheter placement this afternoon. Cardiology may schedule him for cardioversion. Dr. Woodall is planning on oral antimicrobials at the time of discharge. Patient is bringing up quite a bit of sputum. He has been afebrile, heart rate 68, blood pressure 100/67, pulse ox 93% on 1 L nasal cannula. WBC 21, hemoglobin 9.6, platelet count 325. Potassium 3, BUN 28 creatinine 0.8. 08/30: Patient is status post PleurX catheter. Patient has been afebrile, heart rate 106, blood pressure 85/53. Pulse ox 97% on 2 L. Patient is known to be back in atrial fibrillation at rate of 122. He did go for cardioversion today for atrial flutter. Patient states he has a little pain in the side for which she is taking Hendrum. Not bad today. Patient has subcutaneous edema to bilateral chest. He denies having any headache. BUN 27 creatinine 0.79. Blood sugar 90-126. 08/31: Patient denies chest pain or shortness of breath. He is reaching 1250 on IS. PleurX draining small amount of sanguinous fluid. Patient is in atrial flutter. Dr. Prieto is planning for EP study and ablation on and plan to continue eliquis. Patient is also on Lopressor 25 mg 3 times daily. Patient has been afebrile, heart rate 97, blood pressure 106/65, pulse ox 98% on room air. Blood sugars running between 112 and 67. Patient is covered with Voriconazole. Lac-Hydrin added for bilateral legs. 09/01: Patient is status post successful atrial flutter ablation with Dr. Prieto. Cardiology has recommended amlodipine 100 mg twice daily for [address] monitor is a sinus rhythm with PACs. Metoprolol was decreased to 25 mg twice daily. Patient is on eliquis 5 mg twice daily. Patient has been afebrile, heart rate 64, blood pressure 121/77. Potassium 2.3 and replaced. Repeat level will be obtained this evening. Pleurx catheter remains in place connected to Pleur-evac with intermittent air leak. He has minimal output. Tyrone martell is continued on Advair, so for Aspergillus fungal infection managed by Dr. Blanton. He is planning on oral antimicrobial at the time of discharge. 09/02: Patient is resting in recliner. Patient's is at bedside. Patient states he walked in hallway and felt well but did have shortness of breath with activity. He continues to have subcutaneous emphysema. He continues to have air leak. WBC is 15.8, hemoglobin 10, platelet count 293. Potassium is 3 and will be replaced. BUN 27 creatinine 0.82. Patient has been afebrile, heart rate 79, blood pressure 114/66, pulse ox 90% on room air. Chest x-ray is stable findings. Objective - Vital Signs Vital signs: Vital Signs Temp 98.3 F 09/02/20 08:00 Pulse 79 09/02/20 12:00 Resp 17 09/02/20 03:09 BP 114/66 09/02/20 12:00 Pulse Ox 90 L 09/02/20 12:00 Intake & Output 09/01/20 09/02/20 09/02/20 18:59 06:59 18:59 Intake Total 2020 410 780 Output Total 2127 452 0018 Balance 325 -125 -1170 Weight 101.8 kg Intake: IV 1060 250 LR 40 Voriconazole 400 mg In 250 Sodium Chloride 0.9% 250 ml @ 125 mls/hr IVPB Q12HR [facility] Rx#:[id number] Intake, IV Titration 160 Amount Sodium Chloride 0.9% 1, 160 000 ml @ 20 mls/hr IV . Q24H [facility] Rx#:[id number] Oral 960 780 Output: Chest Tube Drainage 120 35 Left Mid-Axillary Chest 120 35 Urine [id number] - Exam Review of Systems Constitutional: Reports anorexia, Reports chronic pain, Reports fatigue, denies weakness, Reports weight loss Eyes: denies blurred vision, denies bulging eye, denies decreased vision, denies diplopia Ears, nose, mouth and throat: Denies dysphagia, Denies neck lump, Denies sore throat Respiratory: Reports dyspnea, with exertion Reports respiratory infections, Denies congestion, Denies cough with sputum, Denies home oxygen, Denies sleep apnea, Denies snoring, Denies wheezing Cardiac: No chest pain. No palpitations. No lower extremity edema. No syncopal episodes. Gastrointestinal: Reports bloating, Reports change in bowel habits, Reports diarrhea, Reports early satiety, Reports indigestion, Reports loss of appetite, Reports nausea, Reports vomiting, Denies abdominal pain, Denies belching, Denies heartburn, Denies hematemesis, Denies hematochezia, Denies melena Genitourinary: Denies dysuria, Denies nocturia Musculoskeletal: Denies myalgias Musculoskeletal: absent: ankle pain, ankle stiffness, ankle swelling, elbow pain, elbow stiffness, elbow swelling, foot pain, foot stiffness, foot swelling, hand pain, hand stiffness, hand swelling, hip pain, hip stiffness, hip swelling, knee pain, knee stiffness, knee swelling, shoulder pain, shoulder stiffness, shoulder swelling, wrist pain, wrist stiffness, wrist swelling Integumentary: Denies pruritus, Denies rash Neurological: Denies numbness, Denies weakness Psychiatric: Denies anxiety, Denies depression Endocrine: Denies fatigue, Denies weight change Physical examination: General: This is a 60-year-old male. Patient is resting in a recliner and appears to be comfortable. HEENT: head ia atraumatic normocephalic, Pupils were equal round reactive to light and accommodations , extra ocular muscle movement were intact, mucous membranes of the mouth are somewhat dry. Neck: supple no JVP. Chest: decreased breath sounds at he bases no expiratory wheezes no chest wall tendernes or intercostal retractions. PleurX cath in place. Positive subcutaneous emphysema. Heart: first heart sound is depressed, second heart sound is normal tachycardic and irregular there is BIRD 2/6 located at the left sternal border. Abdomen: soft, mild tenderness to the left lower quadrant positive bowel sounds, no guarding or rebound tenderness, no hepatosplenomegaly. Extremities: there is 1 edema or calf tenderness DP+ 2 Bilaterally, there is what appears to be a charcot joint in the right foot form arch collapse. Neurologic examination: patient is awake , alert and oriented X 3 CN II-XII are grossly intact, muscle power 4/5 in bilateral upper and lower extremities, deep tendon reflexes were normal. - Labs CBC & Chem 7: 09/02/20 07:45 09/02/20 07:45 Labs: Abnormal Lab Results - Last 24 Hours (Table) 09/01/20 09/01/20 09/01/20 Range/Units 16:47 20:01 21:36 WBC (3.8-10.6) k/uL RBC (4.30-5.90) m/uL Hgb (13.0-17.5) gm/dL Hct (39.0-53.0) % MCHC (31.0-37.0) g/dL RDW (11.5-15.5) % Neutrophils # (Manual) (1.3-7.7) k/uL Metamyelocytes # (Man) (0) k/uL Myelocytes # (Manual) (0) k/uL Potassium 3.0 L (3.5-5.1) mmol/L Carbon Dioxide (22-30) mmol/L BUN (9-20) mg/dL POC Glucose (mg/dL) 142 H 137 H (75-99) mg/dL AST (17-59) U/L ALT (4-49) U/L Alkaline Phosphatase (38-126) U/L Albumin (3.5-5.0) g/dL 09/02/20 09/02/20 09/02/20 Range/Units 07:45 07:45 12:14 WBC 15.8 H (3.8-10.6) k/uL RBC 3.76 L (4.30-5.90) m/uL Hgb 10.0 L (13.0-17.5) gm/dL Hct 33.9 L (39.0-53.0) % MCHC 29.5 L (31.0-37.0) g/dL RDW 19.0 H (11.5-15.5) % Neutrophils # (Manual) 11.06 H (1.3-7.7) k/uL Metamyelocytes # (Man) 0.47 H (0) k/uL Myelocytes # (Manual) 0.79 H (0) k/uL Potassium 3.0 L (3.5-5.1) mmol/L Carbon Dioxide 37 H (22-30) mmol/L BUN 27 H (9-20) mg/dL POC Glucose (mg/dL) 108 H (75-99) mg/dL AST 209 H (17-59) U/L ALT 193 H (4-49) U/L Alkaline Phosphatase 425 H (38-126) U/L Albumin 3.0 L (3.5-5.0) g/dL Assessment and Plan Assessment: 1. Acute hypoxemic respiratory failure secondary to loculated left-sided pleural effusion and fungal empyema with what appears to be recurrent pneumonia. Continue Voriconazole 200 mg every 12 hours IV piggyback per Dr. Blanton with plan for oral at the time of discharge, interventional radiology performed ultrasound-guided thoracentesis of the left loculated pleural fluid for Gram stain and culture and cytology as well as LDH protein as well as pH for possible empyema. Culture positive for Aspergillus. Cardiothoracic surgery status post Pleurx catheter insertion. 2. Lactic acidosis. Resolved, repeat lactic acid is back to normal. 3. Sepsis with septic shock and was stable. Patient has been weaned off Levothroid drip. 4. Acute kidney injury due to poor oral intake of fluid as well as hypotension with acute tubular necrosis. Patient is on IV fluid, continue to monitor the patient CMP continue to monitor urine output. Nephrology is following. 5. Leukocytosis secondary to severe sepsis secondary to empyema. Patient is off antibiotic. 6. Persistent atrial flutter with RVR. Status post cardioversion, converted back. Status post ablation completed by Dr. Prieto. Patient to continue eliquis. Continued on amiodarone 100 mg daily for one month. Cardiology consult appreciated. 7. Rheumatoid arthritis and rheumatoid lung. Arava and Xeljanz had been on hold since April. 8. History of empyema with Streptococcus requiring chest tube. 9. Hypertension and hypertensive cardiovascular disease. Lasix 40 mg IVP daily. 10. Hypothyroidism . we will continue with Synthroid 150 mcg orally daily. 11. DVT prophylaxis. Eliquis and SCDs. 12. GI prophylaxis. we will continue with Protonix 40 mg oral daily. Discharge plan: home possibly early next week Impression and plan of care have been directed as dictated by the signing physician. Yumiko Convery nurse practitioner acting as scribe for signing physician.
--- NOTE | 2020-09-02 16:58 | PN ---
PROGRESS NOTE DATE OF SERVICE: 09/02/2020 REASON FOR FOLLOWUP: Aspergillosis and aspergillus empyema. INTERVAL HISTORY: The patient is currently afebrile, has been breathing comfortably. Denies having any chest pain. Occasional cough. No nausea, no vomiting, no abdominal pain or diarrhea. PHYSICAL EXAMINATION: Blood pressure 115/70 with pulse of 91, temperature 98.3. He is 91% on room air. General description is a middle-aged male lying in bed in no distress. RESPIRATORY SYSTEM: Unlabored breathing with decreased breath sounds at the base. No wheeze. HEART: S1, S2. Regular rate and rhythm. ABDOMEN: Soft. No tenderness. LABS: Hemoglobin is 10, white count 15.8, BUN of 27, creatinine 0.82. DIAGNOSTIC IMPRESSION AND PLAN: Patient with aspergillus pneumonia and empyema, status post PleurX catheter placement. Patient at this point is covered with voriconazole; to continue while monitoring his clinical course closely. Continue with supportive care. MMODL / IJN: [id number] /
[2020-09-02 16:59] LABS: Glucose,Whole Blood 121 mg/dL (75-99)
[2020-09-02] MEDS: SODIUM CHLORIDE 0.9% 1,000 ML IV SCH (17:07)
[2020-09-02] MEDS: POTASSIUM CHLORIDE ER 20 MEQ TAB.ER PO SCH ×3 (17:07→23:20)
[2020-09-02 20:03] LABS: Glucose,Whole Blood 117 mg/dL (75-99)
[2020-09-02] MEDS: ASPIRIN 81 MG PO SCH (21:29)
[2020-09-02] MEDS: CHOLECALCIFEROL 25 MCG (1000 IU) TABLET PO SCH (21:30)
[2020-09-02] MEDS: ASCORBIC ACID 500 MG TAB PO SCH (21:30)
[2020-09-03] MEDS: POTASSIUM CHLORIDE ER 20 MEQ TAB.ER PO SCH (01:08)
[2020-09-03 06:16] LABS: Glucose,Whole Blood 84 mg/dL (75-99)
[2020-09-03] MEDS: LEVOTHYROXINE 75 MCG TAB PO SCH (06:48)
[2020-09-03] MEDS: PANTOPRAZOLE 40 MG TABLET PO SCH (06:48)
[2020-09-03] MEDS: IPRATROPIUM-ALBUTEROL 3 ML NEB INHALATION SCH ×3 (07:29→20:19)
[2020-09-03 07:46] LABS: ALT 180 U/L (4-49); AST 171 U/L (17-59); African American GFR (CKD) >90 (>60 ml/min/1.73 sqM); Albumin 2.6 g/dL (3.5-5.0); Alkaline Phosphatase 413 U/L (38-126); Anion Gap 3 mmol/L; Blood Urea Nitrogen 25 mg/dL (9-20); Calcium 8.5 mg/dL (8.4-10.2); Carbon Dioxide 36 mmol/L (22-30); Chloride 102 mmol/L (98-107); Glucose 78 mg/dL (74-99); Magnesium 1.8 mg/dL (1.6-2.3); Non-African American GFR(CKD) >90 (>60 ml/min/1.73 sqM); Potassium 3.6 mmol/L (3.5-5.1); Sodium 141 mmol/L (137-145); Total Protein 5.7 g/dL (6.3-8.2)
--- NOTE | 2020-09-03 07:47 | P.PN ---
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 Radius his tory of multiple admissions for pneumonia with empyema on the left and previous bilateral chest tube placement in December 2019 with cultures positive for strep pneumonia, rheumatoid arthritis with rheumatoid lung, hypertension, hypothyroidism, DVT, previous tobacco dependence, family history of lung cancer, and recent hospitalization for hypotension, dehydration, acute kidney injury requiring dialysis POD #12 left-sided thoracentesis by interventional radiology POD #5 left Pleurx catheter placement with irrigation of pleural space and instillation of amphotericin B solution under thoracoscopic guidance Extensive subcutaneous emphysema Persistent atrial flutter with RVR, status post electrical cardioversion, status post radiofrequency ablation The patient is currently sitting up in a recliner on the cardiac stepdown unit in no acute distress. Denies pain, states shortness of breath has continued to improve, appears comfortable. Subcutaneous emphysema appears slightly better than previous. Remains on IV Lasix and IV voriconazole. Remains afebrile, currently in sinus rhythm and hemodynamically stable. Left sided Pleurx catheter connected to continuous wall suction, intermittent air leak present. No new concerns, however patient frustrated because he wants to go home Objective - Vital Signs Vital signs: Vital Signs Temp 98.0 F 09/03/20 04:00 Pulse 101 H 09/03/20 04:00 Resp 18 09/03/20 04:00 BP 110/60 09/03/20 04:00 Pulse Ox 91 L 09/03/20 04:00 Intake & Output 09/02/20 09/03/20 09/03/20 18:59 06:59 18:59 Intake Total 1020 Output Total 2185 580 Balance -1165 -580 Weight 102 kg Intake: Oral 1020 Output: Chest Tube Drainage 130 Left Mid-Axillary Chest 130 Drainage 110 130 Left Chest 110 130 Urine 2075 320 Other: Voiding Method Toilet Urinal # Voids 1 # Bowel Movements 1 - Constitutional General appearance: Present: cooperative, no acute distress - Respiratory Details: Lungs sounds diminished in the bases bilaterally, coarse on the left side. Respirations even, nonlabored. Currently on 2 L nasal cannula with oxygen saturation in the 90s. Able to achieve 7696-8522 mL on his incentive spirom etry. Strong cough. Left sided Pleurx catheter present to continuous wall suction, 130 mL cloudy drainage overnight, 300 mL in the last 24 hours, intermittent air leak present. - Cardiovascular Details: S1, S2 present. Regular rate and rhythm, sinus rhythm on telemetry with heart rate in the 90s-low 100s. Palpable peripheral pulses bilaterally. Bilateral lower extremity edema present. No calf pain or tenderness noted. - Gastrointestinal Gastrointestinal Comment(s): Abdomen soft, nontender, nondistended. Active bowel sounds present 4 quadrants. Tolerating diet. Positive bowel movement 09/02 - Genitourinary Genitourinary Comment(s): Continues to void - Integumentary Integumentary Comment(s): Skin is warm and dry with evidence of good perfusion - Neurologic Neurologic: Present: CNII-XII intact - Musculoskeletal Musculoskeletal: Present: gait normal, strength equal bilaterally - Psychiatric Psychiatric: Present: A&O x's 3, appropriate affect, intact judgment & insight - Allied health notes Allied health notes reviewed: nursing - Labs CBC & Chem 7: 09/02/20 07:45 09/02/20 20:05 Labs: Abnormal Lab Results - Last 24 Hours (Table) 09/02/20 09/02/20 09/02/20 Range/Units 07:45 07:45 12:14 WBC 15.8 H (3.8-10.6) k/uL RBC 3.76 L (4.30-5.90) m/uL Hgb 10.0 L (13.0-17.5) gm/dL Hct 33.9 L (39.0-53.0) % MCHC 29.5 L (31.0-37.0) g/dL RDW 19.0 H (11.5-15.5) % Neutrophils # (Manual) 11.06 H (1.3-7.7) k/uL Metamyelocytes # (Man) 0.47 H (0) k/uL Myelocytes # (Manual) 0.79 H (0) k/uL Potassium 3.0 L (3.5-5.1) mmol/L Carbon Dioxide 37 H (22-30) mmol/L BUN 27 H (9-20) mg/dL POC Glucose (mg/dL) 108 H (75-99) mg/dL AST 209 H (17-59) U/L ALT 193 H (4-49) U/L Alkaline Phosphatase 425 H (38-126) U/L Albumin 3.0 L (3.5-5.0) g/dL 09/02/20 09/02/20 09/02/20 Range/Units 16:51 20:02 20:05 WBC (3.8-10.6) k/uL RBC (4.30-5.90) m/uL Hgb (13.0-17.5) gm/dL Hct (39.0-53.0) % MCHC (31.0-37.0) g/dL RDW (11.5-15.5) % Neutrophils # (Manual) (1.3-7.7) k/uL Metamyelocytes # (Man) (0) k/uL Myelocytes # (Manual) (0) k/uL Potassium 3.1 L (3.5-5.1) mmol/L Carbon Dioxide (22-30) mmol/L BUN (9-20) mg/dL POC Glucose (mg/dL) 121 H 117 H (75-99) mg/dL AST (17-59) U/L ALT (4-49) U/L Alkaline Phosphatase (38-126) U/L Albumin (3.5-5.0) g/dL - Imaging and Cardiology Chest x-ray: image reviewed Assessment and Plan Assessment: 1. 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 Acute hypoxic respiratory failure with sepsis on admission 3. Multiple admissions for pneumonia with empyema on the left and previous bilateral chest tube placement in December 2019 with cultures positive for strep pneumonia 4. Rheumatoid arthritis with rheumatoid lung 5. Hypertension, currently hypotensive, requiring pressors on admission 6. Hypothyroidism 7. History of DVT 8. Previous tobacco dependence 9. Family history of lung cancer 10. Recent hospitalization for hypotension, dehydration, acute kidney injury requiring dialysis 11. Extensive subcutaneous emphysema 12. Persistent atrial flutter with RVR, status post electrical cardioversion and radiofrequency ablation, currently sinus Plan: 1. Continue Pleurx catheter with -20 cm continuous wall suction. Will monitor for resolution of air leak and decreased subcu emphysema 2. Daily chest x-rays 3. Encourage incentive spirometry. Bronchodilators per pulmonology 4. Amiodarone, Eliquis per cardiology 5. Continue voriconazole per infectious disease recommendations 6. Increase activity as tolerated. Suction tubing extended so patient may ambulate in the room, may remove suction for short times for patient to ambulate in the hallway 7. Management of other comorbidities per primary care service. 8. Teaching done with patient and regarding Pleurx catheter care. Will continue to reinforce while patient is hospitalized 9. More recommendations to follow Time with Patient: Greater than 30
[2020-09-03 07:56] LABS: Anisocytosis Slight; HCT 34.2 % (39.0-53.0); Hypochromasia Marked; MCH 26.2 pg (25.0-35.0); MCHC 29.1 g/dL (31.0-37.0); Mean Platelet Volume 9.3; Platelet Count 291 k/uL (150-450); RDW 19.3 % (11.5-15.5)
[2020-09-03] MEDS: APIXABAN 5 MG TAB PO SCH ×2 (08:02→21:45)
[2020-09-03] MEDS: FUROSEMIDE 10 MG/ML 4 ML VIAL IV SCH (08:02)
[2020-09-03] MEDS: AMIODARONE 100 MG TAB PO SCH (08:02)
[2020-09-03] MEDS: METOPROLOL TARTRATE 25 MG TAB PO SCH ×2 (08:02→21:45)
[2020-09-03] MEDS: AMMONIUM LACTATE 12% LOTION 225 GM BTL TOPICAL SCH ×2 (08:03→21:46)
[2020-09-03] MEDS: TRIAMCINOLONE 0.1% CREAM 80 GM TUBE TOPICAL SCH ×2 (08:03→21:51)
--- NOTE | 2020-09-03 08:44 | XR ---
EXAMINATION TYPE: XR chest 1V portable DATE OF EXAM: 09/03/2020 Comparison: 09/02/2020 Clinical History: 60-year-old male trapped lung Findings: Severe bilateral subcutaneous emphysema causes extensive limitation in assessment of the underlying l ungs. Heart appears enlarged. Worsening consolidation throughout the right lung. No obvious pneumotho rax though assessment is very limited due to the extensive subcutaneous emphysema. Impression: Severe bilateral subcutaneous emphysema persists and limits the exam. Worsening consolidation through out the right lung. Underlying cardiomegaly. No definite pneumothorax though assessment is very limit ed due to the severe subcutaneous emphysema.
[2020-09-03 09:10] LABS: Band Neutrophils % 2 %; Lymphocytes # (M) 1.96 k/uL (1.0-4.8); Metamyelocytes # (M) 0.14 k/uL (0); Metamyelocytes % 1 %; Monocytes # (M) 0.98 k/uL (0-1.0); Myelocytes # (M) 0.14 k/uL (0); Myelocytes % 1 %; Neutrophils % (M) 71 %; Nucleated Red Blood Cells 0 /100 WBC (0-0); Total Cells Counted 200
[2020-09-03 09:11] LABS: Polychromasia Present
[2020-09-03] MEDS: VORICONAZOLE 400 MG in SODIUM CHLORIDE 0.9% 250 ML IVPB SCH ×2 (10:10→21:51)
[2020-09-03] MEDS: LACTATED RINGERS 1,000 ML IV SCH (11:02)
[2020-09-03 11:46] LABS: Glucose,Whole Blood 80 mg/dL (75-99)
[2020-09-03] MEDS: SODIUM CHLORIDE 0.9% 1,000 ML IV SCH (12:21)
--- NOTE | 2020-09-03 13:02 | P.PN ---
Subjective Progress Note Date: 09/03/20 This is a pleasant 60-year-old gentleman who's been admitted to the hospital with acute hypoxic respiratory failure secondary to fungal pneumonia with empyema. Patient underwent placement of a chest tube. We've been following the patient is a patient was found to be in atrial flutter with rapid ventricular response. He underwent cardioversion on 08/30/[address] Prieto which unfortunately was only briefly successful. He subsequently underwent successful ablation on 09/01/[address] Prieto. He is currently maintaining sinus mechanism. He continues to be on amiodarone 100 mg by mouth daily which she will be on for one month. He is anticoagulated. Currently on a beta tricia. Upon examination the patient is resting comfortably in a chair. His main complaint is of edema. Patient appears to have subcutaneous emphysema but is quite generalized. Patient complains of scrotal edema which also appears to be subcutaneous emphysema. Patient continues to have a chest tube in place. Objective - Vital Signs Vital signs: Vital Signs Temp 97.5 F L 09/03/20 08:00 Pulse 95 09/03/20 11:22 Resp 18 09/03/20 11:22 BP 99/66 09/03/20 11:22 Pulse Ox 94 L 09/03/20 11:22 Intake & Output 09/02/20 09/03/20 09/03/20 18:59 06:59 18:59 Intake Total 1020 416 Output Total 2185 580 400 Balance -1165 -580 16 Weight 102 kg Intake: Oral 1020 416 Output: Chest Tube Drainage 130 100 Left Mid-Axillary Chest 130 100 Drainage 110 130 Left Chest 110 130 Urine 2075 320 300 Other: Voiding Method Toilet Urinal # Voids 1 # Bowel Movements 1 - Exam PHYSICAL EXAMINATION: HEENT: Head is atraumatic, normocephalic. Pupils equal, round. Neck is supple. There is no elevated jugular venous pressure. HEART EXAMINATION: Heart sounds regular, S1 and S2 normal. No murmur or gallop heard. CHEST EXAMINATION: Lungs reveal scattered rhonchi although this is difficult to assess due to subcutaneous emphysema. Left Pleurx chest tube noted. ABDOMEN: Soft, nontender. Cutaneous emphysema noted down to the scrotum. EXTREMITIES: Bilateral upper extremity edema and subcutaneous emphysema noted, bilateral ankle and pedal pitting edema noted left worse than right.. NEUROLOGIC patient is awake, alert and oriented x3. . - Labs CBC & Chem 7: 09/03/20 06:47 09/03/20 06:47 Labs: Abnormal Lab Results - Last 24 Hours (Table) 09/02/20 09/02/20 09/02/20 Range/Units 16:51 20:02 20:05 WBC (3.8-10.6) k/uL RBC (4.30-5.90) m/uL Hgb (13.0-17.5) gm/dL Hct (39.0-53.0) % MCHC (31.0-37.0) g/dL RDW (11.5-15.5) % Neutrophils # (Manual) (1.3-7.7) k/uL Metamyelocytes # (Man) (0) k/uL Myelocytes # (Manual) (0) k/uL Potassium 3.1 L (3.5-5.1) mmol/L Carbon Dioxide (22-30) mmol/L BUN (9-20) mg/dL POC Glucose (mg/dL) 121 H 117 H (75-99) mg/dL AST (17-59) U/L ALT (4-49) U/L Alkaline Phosphatase (38-126) U/L Total Protein (6.3-8.2) g/dL Albumin (3.5-5.0) g/dL 09/03/20 09/03/20 Range/Units 06:47 06:47 WBC 14.0 H (3.8-10.6) k/uL RBC 3.80 L (4.30-5.90) m/uL Hgb 10.0 L (13.0-17.5) gm/dL Hct 34.2 L (39.0-53.0) % MCHC 29.1 L (31.0-37.0) g/dL RDW 19.3 H (11.5-15.5) % Neutrophils # (Manual) 10.20 H (1.3-7.7) k/uL Metamyelocytes # (Man) 0.14 H (0) k/uL Myelocytes # (Manual) 0.14 H (0) k/uL Potassium (3.5-5.1) mmol/L Carbon Dioxide 36 H (22-30) mmol/L BUN 25 H (9-20) mg/dL POC Glucose (mg/dL) (75-99) mg/dL AST 171 H (17-59) U/L ALT 180 H (4-49) U/L Alkaline Phosphatase 413 H (38-126) U/L Total Protein 5.7 L (6.3-8.2) g/dL Albumin 2.6 L (3.5-5.0) g/dL Assessment and Plan Assessment: 1 typical atrial flutter with rapid ventricular response, status post cardioversion and subsequent ablation, maintaining sinus mechanism 2 acute hypoxic respiratory failure 3 fungal pneumonia with empyema 4 hypertension 5 hyperlipidemia Plan: From cardiology perspective medications reviewed and we'll continue the same. Continue amiodarone for one month. Continue to monitor the patient telemetry. Pulmonary and cardiothoracic surgery continues to follow. We will continue to follow the patient right further recommendations accordingly. The above dictated assessment and findings were discussed with signing physician. The impression and plan of care have been directed as dictated. Micaela Gottlieb, Nurse Practitioner, acting as scribe for signing physician.
--- NOTE | 2020-09-03 13:10 | P.PN ---
Subjective Progress Note Date: 09/03/20 On today's evaluation of 09/03/2020, the patient is postop day #5 following insertion of a Pleurx catheter in the left lung and instillation of amphotericin B. The patient is doing well. Continues to have tinnitus emphysema bilaterally extending to his neck. Nevertheless he is stable. The chest x-ray from today showing stable subcutaneous emphysema. There is some worsening of the consolidation of the right upper lobe. Nevertheless, he is not having any fever or chills or any other new symptoms or worsening in his oxygenation. He remains afebrile. Is in sinus rhythm. I noted the Pleurx catheter. Air leak is intermittent and isn't attached to continuous wall suction. He is a bit frust rated. Nevertheless he understands the situation that this will be probably somewhat chronic and the patient will ultimately go home with a Pleurx catheter in place. The drainage is still being done continuously at this point in time. I'm also bit concerned about this hepatic dysfunction along with voriconazole. Repeat liver function test today shows an ALT of 171 and AST of 180 which is improved compared to yesterday. Based on that, we have decided to continue the voriconazole for now.. He is using the incentive spirometer. Objective - Vital Signs Vital signs: Vital Signs Temp 97.5 F L 09/03/20 08:00 Pulse 95 09/03/20 11:22 Resp 18 09/03/20 11:22 BP 99/66 09/03/20 11:22 Pulse Ox 94 L 09/03/20 11:22 Intake & Output 09/02/20 09/03/20 09/03/20 18:59 06:59 18:59 Intake Total 1020 416 Output Total 2185 580 400 Balance -1165 -580 16 Weight 102 kg Intake: Oral 1020 416 Output: Chest Tube Drainage 130 100 Left Mid-Axillary Chest 130 100 Drainage 110 130 Left Chest 110 130 Urine 2075 320 300 Other: Voiding Method Toilet Urinal # Voids 1 # Bowel Movements 1 - Exam - Constitutional General appearance: Present: cooperative, no acute distress - Respiratory Details: Lungs sounds diminished in the bases bilaterally, coarse on the left side. Respirations even, nonlabored. Currently on 2 L nasal cannula with oxygen saturation in the 90s. Able to achieve 4334-6172 mL on his incentive spiromet ry. Strong cough. Left sided Pleurx catheter present to continuous wall suction, 130 mL cloudy drainage overnight, 300 mL in the last 24 hours, intermittent air leak present. - Cardiovascular Details: S1, S2 present. Regular rate and rhythm, sinus rhythm on telemetry with heart rate in the 90s-low 100s. Palpable peripheral pulses bilaterally. Bilateral lower extremity edema present. No calf pain or tenderness noted. - Gastrointestinal Gastrointestinal Comment(s): Abdomen soft, nontender, nondistended. Active bowel sounds present 4 quadrants. Tolerating diet. Positive bowel movement 09/02 - Genitourinary Genitourinary Comment(s): Continues to void - Integumentary Integumentary Comment(s): Skin is warm and dry with evidence of good perfusion - Neurologic Neurologic: Present: CNII-XII intact - Musculoskeletal Musculoskeletal: Present: gait normal, strength equal bilaterally - Psychiatric Psychiatric: Present: A&O x's 3, appropriate affect, intact judgment & insight - Labs CBC & Chem 7: 09/03/20 06:47 09/03/20 06:47 Labs: Abnormal Lab Results - Last 24 Hours (Table) 09/02/20 09/02/20 09/02/20 Range/Units 16:51 20:02 20:05 WBC (3.8-10.6) k/uL RBC (4.30-5.90) m/uL Hgb (13.0-17.5) gm/dL Hct (39.0-53.0) % MCHC (31.0-37.0) g/dL RDW (11.5-15.5) % Neutrophils # (Manual) (1.3-7.7) k/uL Metamyelocytes # (Man) (0) k/uL Myelocytes # (Manual) (0) k/uL Potassium 3.1 L (3.5-5.1) mmol/L Carbon Dioxide (22-30) mmol/L BUN (9-20) mg/dL POC Glucose (mg/dL) 121 H 117 H (75-99) mg/dL AST (17-59) U/L ALT (4-49) U/L Alkaline Phosphatase (38-126) U/L Total Protein (6.3-8.2) g/dL Albumin (3.5-5.0) g/dL 09/03/20 09/03/20 Range/Units 06:47 06:47 WBC 14.0 H (3.8-10.6) k/uL RBC 3.80 L (4.30-5.90) m/uL Hgb 10.0 L (13.0-17.5) gm/dL Hct 34.2 L (39.0-53.0) % MCHC 29.1 L (31.0-37.0) g/dL RDW 19.3 H (11.5-15.5) % Neutrophils # (Manual) 10.20 H (1.3-7.7) k/uL Metamyelocytes # (Man) 0.14 H (0) k/uL Myelocytes # (Manual) 0.14 H (0) k/uL Potassium (3.5-5.1) mmol/L Carbon Dioxide 36 H (22-30) mmol/L BUN 25 H (9-20) mg/dL POC Glucose (mg/dL) (75-99) mg/dL AST 171 H (17-59) U/L ALT 180 H (4-49) U/L Alkaline Phosphatase 413 H (38-126) U/L Total Protein 5.7 L (6.3-8.2) g/dL Albumin 2.6 L (3.5-5.0) g/dL Assessment and Plan Plan: 1 Acute hypoxic respiratory failure secondary to sepsis, septic shock, related to pneumonia, with chronic loculated effusions, possible empyema. Cultures positive for Aspergillus fumigatus. This could be a fungal empyema/infection, possible bilateral although this was only confirmed on the left side. The sputum is positive for Aspergillus fumigatus. The pleural fluid is also positive. The patient is currently on voriconazole. Patient is postop day #5. He continues to have intermittent air leak. Output from the Pleurx catheter was noted. He does have some stable subcutaneous emphysema bilaterally. There is also some diabetic dysfunction and elevation of the liver function tests related to voriconazole which is being monitored very closely. 2 Bilateral hydropneumothorax, possible empyema, status post ultrasound-guided left-sided thoracentesis on 08/22/2020 with 45 ML's of cloudy white fluid rem malinda, showing Aspergillus. Remains on voriconazole. 3 bilateral subcutaneous emphysema 4 Recent pulmonary infections with history of streptococcal pneumonia, empyema requiring chest tube placement in January 2020. 5 Chronic loculated pneumothoraces, posterior, with air-fluid seen on CAT scan imaging on the chest. Possibility of trapped lung, chronic scarring and possibility of empyema. 6 History of rheumatoid arthritis and rheumatoid lung disease. Currently not receiving any immunosuppressive agents 7 Recent history of acute kidney injury 8 Hypertension 9 Hypothyroidism 10 Previous history of DVT. 11 New-onset atrial fibrillation/flutter anticoagulated and the patient had failed cardioversion. The patient is currently on Eliquis and amiodarone 12 bilateral subcutaneous emphysema along with a hydropneumothorax on the left with positive air leak through the Pleurx catheter. He was currently attached to continuous suction Plan: Keep the Pleurx to suction and monitor the output Continue voriconazole 400 mg every 12 hours. Monitor the liver function tests Daily chest x-rays Amiodarone is being given at a dose of 100 mg a day. He is also on metoprolol 25 mg by mouth 3 times a day. The Pleurx catheter attached to suction and monitor the air leak and outputs. The patient is currently on continuous suction. We'll continue to follow
--- NOTE | 2020-09-03 14:34 | P.PN ---
Subjective Progress Note Date: 09/03/20 This is a 60-year-old male patient requesting my service with past medical history of rheumatoid arthritis on Arava that was diagnosed when he was 37 year old initially was started on Methotrexate that he could not tolerate then placed on Embrel but he developed side effects and finally was tried on Humira injection but he developed neurologic sided effects and was hospitaized at [facility] for quiet some time, rheumatoid lung disease, previous history of loculated empyema with chest tube placement in January 2020, hypertension, hypothyroidism, history of DVT, remote history of tobacco use and dependence, was recently hospitalized at [facility] after he was admitted for an acute kidney injury with significant metabolic acidosis associated with the elevated creatinine and elevated BUN and hypotension at that time he was seen and evaluated by pulmonary and critical care medicine, he had a central line placed and at that time, he was placed on Levophed drip he was p laced on IV anabiotic as well but the patient recovered very fast and he had an echocardiogram that showed normal LV function and segmental hypokinesia, he was supposed to follow-up with Dr. 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 and he had an episode when he was dizzy lightheaded and an episode of vomiting as well and he was sent to the emergency department for evaluation had a computed tomography of the chest as well as abdomen and pelvis that showed a thick walled pleural cavities posteriorly in the lower lungs with left-sided air-fluid level that has diminished in size from the prior computed tomography scan when he was in the hospital a few weeks back there is also associated compressive atelectasis and chronic consultation with multifocal areas of reticular nodular opacity in the upper lungs with a slight nodularity of the left upper lobe again this area of focal consultation has improved from the previous study that was done few weeks ago, patient was started on IV antibiotic with vancomycin and Zosyn as well as IV fluid, he was seen in consultation by pulmonary critical care in the emergency department as the patient blood pressure dropped and that he'll be transferred to the intensive care unit at this point in time I had long conve rsation with the patient and his at the bedside and the patient may need to have a chest tube placed for his possible right empyema, he did receive 3 L normal saline in the ER, and his blood pressure is marginal he may need to go on pressors if not recovered. 08/20:patient is sitting up in chair feeling about the same , complains of increased pain in the righ elbow, was seen earlier by pulmonary and the plan was to go for US-Guided left thoracenthesis due to to loculated left pleural effu unique and possible empyema, may need VATS, he denies any chest pain or shortness of breath, no abdominal pain nausea, vomiting or diarrhea, still have diarrhea negative for C.Diff, he seems to have accept to stay in the hospital this time as long as he needed to. 08/21: Patient sitting up in the recliner complaining of increased pain in his joints due to his rheumatoid arthritis with increased synovitis in both wrists both elbows and both shoulders he was started on hydrocortisone 100 mg IV push every 8 hours, to try to help with his blood pressure as well as his phonation, he is maintained on Hominy 5/325 mg one tablet orally every 6 hours as needed for pain control, patient denies any chest pain is less short of breath, he continues to have increased coughing with yellow from production of green phlegm production, he had no fever or chills at this time he continues to be on Levothroid drip, patient has appeared to have increased swelling in both lower extremities as well as both ankles, he is maintained on IV antibiotic in the form of vancomycin as well as cefepime, infectious disease is following, patient is scheduled to go for ultrasound guidance thoracentesis of the left loculated pleural effusion tomorrow morning. 08/22: Patient remains in the intensive care unit. He has been afebrile, heart rate 100, blood pressure 95/62, pulse ox 97% on 2 L nasal cannula. Hemoglobin 8.8 and leukocytosis resolved. Creatinine 0.76, electrolytes normal. Sputum culture is positive for Aspergillus species. Blood culture showing no growth. Patient underwent diagnostic thoracentesis with interventional radiology today with removal of 45 mL of cloudy white fluid. Chest x-ray reveals no complications following left thoracentesis. Fluid has been sent for culture and cytology. Consult in place for cardiothoracic surgery to evaluate for VATS with decortication. 08/23: Patient remains in the intensive care unit. He did receive 1 dose of IV Lasix this morning ordered by nephrology. He is followed by cardiothoracic surgery was no plan for surgical intervention. ID has recommended cefepime and vancomycin for now. Expect antifungal agent ended as well. Patient denies any significant shortness of breath. He is comfortable sitting in a chair. Patient is having minimal cough and minimal sputum. Patient is achieving 1000 ml on incentive spirometry. Culture and cytology reports remain pending from thoracentesis. Repeat chest x-ray reveals patchy peripheral lung with lung zone and lower lung zone infiltrates persist unchanged. Patient has been afebrile, heart rate in the 90s and low 100s, pulse ox 91 on room air. 23: Repeat chest x-ray reveals left-sided basilar loculated pneumothorax, stable. Bilateral lung infiltrates. Correlate for pneumonia and atelectasis. WBC 9, hemoglobin 9.5. Potassium 3.4 and will be replaced. Patient is continued on cefepime and vancomycin per Dr. Blanton's recommendations. Patient in reaching 1000 on incentive spirometry. Patient is scheduled to see Dr. Dubois tomorrow. Cefepime and vancomycin had been discontinued by Dr. Blanton and started on Voriconazole. 08/25: A-Team was called this morning regarding elevated heart rate, EKG was atrial flutter with RVR and 150 bpm and patient was transferred to ICU as an overflow for the cardiac stepdown unit, started on Cardizem drip and consult with cardiology. Heart rate was improved with Cardizem and patient also received amiodarone bolus 300 mg. Patient denies any worsening shortness of breath, cough or congestion. No chest pain or palpitations. Patient is resting comfortably. 09, hemoglobin 8.8, potassium 3.4 replaced. Creatinine 0.89. 08/26: Patient remains in the intensive care unit. He continues to be in atrial flutter with 21 conduction rate. He is on heparin drip and amiodarone. He is currently in and out of atrial flutter with RVR. Cardiology is following closely and may consider cardioversion tomorrow. WBC 16.6, hgb 9.8, plt 374, sodium 143, potassium 3.9, creatinine 0.88. He has been afebrile, heart rate has been at times marginal, pulse ox 90% on room air. Patient denies having any fever or chills, no shortness of breath, no cough. No chest pain. Patient is followed by cardiothoracic surgery and plan is for left-sided PleurX catheter placement which is scheduled for Saturday. 08/29: Patient is scheduled for PleurX catheter placement this afternoon. Cardiology may schedule him for cardioversion. Dr. Woodall is planning on oral antimicrobials at the time of discharge. Patient is bringing up quite a bit of sputum. He has been afebrile, heart rate 68, blood pressure 100/67, pulse ox 93% on 1 L nasal cannula. WBC 21, hemoglobin 9.6, platelet count 325. Potassium 3, BUN 28 creatinine 0.8. 08/30: Patient is status post PleurX catheter. Patient has been afebrile, heart rate 106, blood pressure 85/53. Pulse ox 97% on 2 L. Patient is known to be back in atrial fibrillation at rate of 122. He did go for cardioversion today for atrial flutter. Patient states he has a little pain in the side for which she is taking Hominy. Not bad today. Patient has subcutaneous edema to bilateral chest. He denies having any headache. BUN 27 creatinine 0.79. Blood sugar 90-126. 08/31: Patient denies chest pain or shortness of breath. He is reaching 1250 on IS. PleurX draining small amount of sanguinous fluid. Patient is in atrial flutter. Dr. Prieto is planning for EP study and ablation on and plan to continue eliquis. Patient is also on Lopressor 25 mg 3 times daily. Patient has been afebrile, heart rate 97, blood pressure 106/65, pulse ox 98% on room air. Blood sugars running between 112 and 67. Patient is covered with Voriconazole. Lac-Hydrin added for bilateral legs. 09/01: Patient is status post successful atrial flutter ablation with Dr. Prieto. Cardiology has recommended amlodipine 100 mg twice daily for 1 month. youth nutritional monitor is a sinus rhythm with PACs. Metoprolol was decreased to 25 mg twice daily. Patient is on eliquis 5 mg twice daily. Patient has been afebrile, heart rate 64, blood pressure 121/77. Potassium 2.3 and replaced. Repeat level will be obtained this evening. Pleurx catheter remains in place connected to Pleur-evac with intermittent air leak. He has minimal output. Tyrone martell is continued on Advair, so for Aspergillus fungal infection managed by Dr. Blanton. He is planning on oral antimicrobial at the time of discharge. 09/02: Patient is resting in recliner. Patient's is at bedside. Patient states he walked in hallway and felt well but did have shortness of breath with activity. He continues to have subcutaneous emphysema. He continues to have air leak. WBC is 15.8, hemoglobin 10, platelet count 293. Potassium is 3 and will be replaced. BUN 27 creatinine 0.82. Patient has been afebrile, heart rate 79, blood pressure 114/66, pulse ox 90% on room air. Chest x-ray is stable findings. 09/03: Patient is sitting up in his recliner he is quite depressed because he stated the hospital for almost 2 weeks, he wanted to go home, he continues to have some leak in the chest tube on the left side, we will maintain the patient on voriconazole, and he has to take that for the next 4 weeks and possibly longer would leave that up to the discretion of infectious disease, I spoke with his as well as himself about the prognosis and the patient may need to send to the hospital until Saturday , meanwhile continue with physical therapy evaluation, anticipating home health care with physical therapy at home. Objective - Vital Signs Vital signs: Vital Signs Temp 97.5 F L 09/03/20 08:00 Pulse 95 09/03/20 11:22 Resp 18 09/03/20 11:22 BP 99/66 09/03/20 11:22 Pulse Ox 94 L 09/03/20 11:22 Intake & Output 09/02/20 09/03/20 09/03/20 18:59 06:59 18:59 Intake Total 1020 416 Output Total 2182 580 400 Balance -1165 -580 16 Weight 102 kg Intake: Oral 1020 416 Output: Chest Tube Drainage 130 100 Left Mid-Axillary Chest 130 100 Drainage 110 130 Left Chest 110 130 Urine 2075 320 300 Other: Voiding Method Toilet Urinal # Voids 1 # Bowel Movements 1 - Exam - Exam Review of Systems Constitutional: Reports anorexia, Reports chronic pain, Reports fatigue, denies weakness, Reports weight loss Eyes: denies blurred vision, denies bulging eye, denies decreased vision, denies diplopia Ears, nose, mouth and throat: Denies dysphagia, Denies neck lump, Denies sore throat Respiratory: Reports dyspnea, with exertion Reports respiratory infections, Denies congestion, Denies cough with sputum, Denies home oxygen, Denies sleep apnea, Denies snoring, Denies wheezing Cardiac: No chest pain. No palpitations. No lower extremity edema. No syncopal episodes. Gastrointestinal: Reports bloating, Reports change in bowel habits, Reports diarrhea, Reports early satiety, Reports indigestion, Reports loss of appetite, Reports nausea, Reports vomiting, Denies abdominal pain, Denies belching, Denies heartburn, Denies hematemesis, Denies hematochezia, Denies melena Genitourinary: Denies dysuria, Denies nocturia Musculoskeletal: Denies myalgias Musculoskeletal: absent: ankle pain, ankle stiffness, ankle swelling, elbow pain, elbow stiffness, elbow swelling, foot pain, foot stiffness, foot swelling, hand pain, hand stiffness, hand swelling, hip pain, hip stiffness, hip swelling, knee pain, knee stiffness, knee swelling, shoulder pain, shoulder stiffness, shoulder swelling, wrist pain, wrist stiffness, wrist swelling Integumentary: Denies pruritus, Denies rash Neurological: Denies numbness, Denies weakness Psychiatric: Denies anxiety, Denies depression Endocrine: Denies fatigue, Denies weight change Physical examination: General: This is a 60-year-old male. Patient is resting in a recliner and appears to be comfortable. HEENT: head ia atraumatic normocephalic, Pupils were equal round reactive to light and accommodations , extra ocular muscle movement were intact, mucous membranes of the mouth are somewhat dry. Neck: supple no JVP. Chest: decreased breath sounds at he bases no expiratory wheezes no chest wall tendernes or intercostal retractions. PleurX cath in place. Positive subcutaneous emphysema. Heart: first heart sound is depressed, second heart sound is normal tachycardic and irregular there is BIRD 2/6 located at the left sternal border. Abdomen: soft, mild tenderness to the left lower quadrant positive bowel sounds, no guarding or rebound tenderness, no hepatosplenomegaly. Extremities: there is 1 edema or calf tenderness DP+ 2 Bilaterally, there is what appears to be a charcot joint in the right foot form arch collapse. Neurologic examination: patient is awake , alert and oriented X 3 CN II-XII are grossly intact, muscle power 4/5 in bilateral upper and lower extremities, deep tendon reflexes were normal. - Labs CBC & Chem 7: 09/03/20 06:47 09/03/20 06:47 Labs: Abnormal Lab Results - Last 24 Hours (Table) 09/02/20 09/02/20 09/02/20 Range/Units 16:51 20:02 20:05 WBC (3.8-10.6) k/uL RBC (4.30-5.90) m/uL Hgb (13.0-17.5) gm/dL Hct (39.0-53.0) % MCHC (31.0-37.0) g/dL RDW (11.5-15.5) % Neutrophils # (Manual) (1.3-7.7) k/uL Metamyelocytes # (Man) (0) k/uL Myelocytes # (Manual) (0) k/uL Potassium 3.1 L (3.5-5.1) mmol/L Carbon Dioxide (22-30) mmol/L BUN (9-20) mg/dL POC Glucose (mg/dL) 121 H 117 H (75-99) mg/dL AST (17-59) U/L ALT (4-49) U/L Alkaline Phosphatase (38-126) U/L Total Protein (6.3-8.2) g/dL Albumin (3.5-5.0) g/dL 09/03/20 09/03/20 Range/Units 06:47 06:47 WBC 14.0 H (3.8-10.6) k/uL RBC 3.80 L (4.30-5.90) m/uL Hgb 10.0 L (13.0-17.5) gm/dL Hct 34.2 L (39.0-53.0) % MCHC 29.1 L (31.0-37.0) g/dL RDW 19.3 H (11.5-15.5) % Neutrophils # (Manual) 10.20 H (1.3-7.7) k/uL Metamyelocytes # (Man) 0.14 H (0) k/uL Myelocytes # (Manual) 0.14 H (0) k/uL Potassium (3.5-5.1) mmol/L Carbon Dioxide 36 H (22-30) mmol/L BUN 25 H (9-20) mg/dL POC Glucose (mg/dL) (75-99) mg/dL AST 171 H (17-59) U/L ALT 180 H (4-49) U/L Alkaline Phosphatase 413 H (38-126) U/L Total Protein 5.7 L (6.3-8.2) g/dL Albumin 2.6 L (3.5-5.0) g/dL Assessment and Plan Assessment: Assessment and Plan Assessment: 1. Acute hypoxemic respiratory failure secondary to loculated left-sided pleural effusion and fungal empyema with what appears to be recurrent pneumonia. Continue Voriconazole 200 mg every 12 hours IV piggyback per Dr. Blanton with plan for oral at the time of discharge, interventional radiology performed ultrasound-guided thoracentesis of the left loculated pleural fluid for Gram stain and culture and cytology as well as LDH protein as well as pH for possible empyema. Culture positive for Aspergillus. Cardiothoracic surgery status post Pleurx catheter insertion. 2. Lactic acidosis. Resolved, repeat lactic acid is back to normal. 3. Sepsis with septic shock and was stable. Patient has been weaned off Levothroid drip. 4. Acute kidney injury due to poor oral intake of fluid as well as hypotension with acute tubular necrosis. Patient is on IV fluid, continue to monitor the patient CMP continue to monitor urine output. Nephrology is following. 5. Leukocytosis secondary to severe sepsis secondary to empyema. Patient is off antibiotic. 6. Persistent atrial flutter with RVR. Status post cardioversion, converted back. Status post ablation completed by Dr. Prieto. Patient to continue eliquis. Continued on amiodarone 100 mg daily for one month. Cardiology consult appreciated. 7. Rheumatoid arthritis and rheumatoid lung. Arava and Xeljanz had been on hold since April. 8. History of empyema with Streptococcus requiring chest tube. 9. Hypertension and hypertensive cardiovascular disease. Lasix 40 mg IVP daily. 10. Hypothyroidism . we will continue with Synthroid 150 mcg orally daily. 11. DVT prophylaxis. Eliquis and SCDs. 12. GI prophylaxis. we will continue with Protonix 40 mg oral daily. Discharge plan: home possibly early next week
[2020-09-03 16:43] LABS: Glucose,Whole Blood 104 mg/dL (75-99)
[2020-09-03] MEDS: CHOLECALCIFEROL 25 MCG (1000 IU) TABLET PO SCH (21:45)
[2020-09-03] MEDS: ASCORBIC ACID 500 MG TAB PO SCH (21:45)
[2020-09-03] MEDS: ASPIRIN 81 MG PO SCH (21:45)
--- NOTE | 2020-09-03 23:11 | PN ---
PROGRESS NOTE DATE OF SERVICE: 09/03/2020 REASON FOR FOLLOWUP: Aspergillosis. INTERVAL HISTORY: The patient is currently afebrile. He is breathing comfortably. Denies having any chest pain. Occasional cough. No nausea, no vomiting. No abdominal pain. No diarrhea. PHYSICAL EXAMINATION: Blood pressure 100/63, pulse 94. Temperature 98.7. He is 95% on 2 L nasal cannula. General description: Middle-aged male up in the chair in no distress. Respiratory system: Unlabored breathing, decreased breath sounds in the bases. No wheeze. Heart S1, S2. Regular rate and rhythm. ABDOMEN: Soft, no tenderness. LABS: Hemoglobin 10.4, white count 14,000. BUN of 25, creatinine 0.74. DIAGNOSTIC IMPRESSION AND PLAN: Patient with Aspergillosis pneumonia with empyema, status post PleurX catheter placement. The patient is currently covered with voriconazole to continue q12 hours, transition to oral on discharge. Continue supportive care. MMODL / IJN: [id number] /
[2020-09-04] MEDS: LEVOTHYROXINE 75 MCG TAB PO SCH (07:07)
[2020-09-04] MEDS: PANTOPRAZOLE 40 MG TABLET PO SCH (07:07)
--- NOTE | 2020-09-04 07:44 | XR ---
EXAMINATION TYPE: XR chest 1V portable DATE OF EXAM: 09/04/2020 COMPARISON: 09/03/2019 HISTORY: Shortness of breath TECHNIQUE: Single frontal view of the chest is obtained. FINDINGS: There is severe diffuse bilateral subcutaneous emphysema which limits assessment of the arlette ngs. There is bilateral areas of infiltrate and small effusion suspected left lower lobe pneumothorax measuring approximately 10-15%. Chest tube noted. Heart size stable. IMPRESSION: 1. Severe diffuse bilateral subcutaneous emphysema. 2. Suspect a left-sided pneumothorax along the costophrenic angle measuring 10-15%.
[2020-09-04] MEDS: IPRATROPIUM-ALBUTEROL 3 ML NEB INHALATION SCH ×3 (08:28→20:22)
[2020-09-04 08:33] LABS: ALT 118 U/L (4-49); AST 73 U/L (17-59); African American GFR (CKD) >90 (>60 ml/min/1.73 sqM); Albumin 2.4 g/dL (3.5-5.0); Alkaline Phosphatase 362 U/L (38-126); Anion Gap 2 mmol/L; Blood Urea Nitrogen 19 mg/dL (9-20); Calcium 8.4 mg/dL (8.4-10.2); Carbon Dioxide 39 mmol/L (22-30); Chloride 99 mmol/L (98-107); Glucose 76 mg/dL (74-99); Magnesium 1.9 mg/dL (1.6-2.3); Non-African American GFR(CKD) >90 (>60 ml/min/1.73 sqM); Potassium 3.3 mmol/L (3.5-5.1); Sodium 140 mmol/L (137-145); Total Bilirubin 0.8 mg/dL (0.2-1.3); Total Protein 5.6 g/dL (6.3-8.2)
[2020-09-04] MEDS: VORICONAZOLE 400 MG in SODIUM CHLORIDE 0.9% 250 ML IVPB SCH ×2 (08:43→21:46)
[2020-09-04] MEDS: FUROSEMIDE 10 MG/ML 4 ML VIAL IV SCH (08:43)
[2020-09-04] MEDS: APIXABAN 5 MG TAB PO SCH ×2 (08:43→21:45)
[2020-09-04] MEDS: AMIODARONE 100 MG TAB PO SCH (08:43)
--- NOTE | 2020-09-04 09:15 | P.PN ---
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 Radius his tory of multiple admissions for pneumonia with empyema on the left and previous bilateral chest tube placement in December 2019 with cultures positive for strep pneumonia, rheumatoid arthritis with rheumatoid lung, hypertension, hypothyroidism, DVT, previous tobacco dependence, family history of lung cancer, and recent hospitalization for hypotension, dehydration, acute kidney injury requiring dialysis POD #13 left-sided thoracentesis by interventional radiology POD #6 left Pleurx catheter placement with irrigation of pleural space and instillation of amphotericin B solution under thoracoscopic guidance Extensive subcutaneous emphysema Persistent atrial flutter with RVR, status post electrical cardioversion, status post radiofrequency ablation The patient is currently sitting up in a recliner on the cardiac stepdown unit in no acute distress. Denies pain, states shortness of breath has continued to improve, appears comfortable. Subcutaneous emphysema appears slightly better than previous. Remains on IV Lasix and IV voriconazole. Remains afebrile, currently in sinus rhythm and hemodynamically stable although he did have an episode of hypotension last night which resolved without treatment. Left sided Pleurx catheter connected to continuous wall suction, intermittent air leak present when patient is sitting up, no air leak present when he is laying flat. No new concerns, however patient frustrated because he wants to go home Objective - Vital Signs Vital signs: Vital Signs Temp 97.2 F L 09/04/20 08:00 Pulse 101 H 09/04/20 08:00 Resp 18 09/04/20 08:00 BP 99/56 09/04/20 08:00 Pulse Ox 92 L 09/04/20 08:00 Intake & Output 09/03/20 09/04/20 09/04/20 18:59 06:59 18:59 Intake Total 1009 10 246 Output Total 400 720 Balance 609 -710 246 Weight 102.1 kg Intake: IV 10 10 Invasive Line 6 10 10 Oral 1009 236 Output: Chest Tube Drainage 100 40 Left Mid-Axillary Chest 100 40 Drainage 40 Left Chest 40 Urine 300 640 Other: Voiding Method Toilet Toilet Urinal Urinal # Voids 1 - Constitutional General appearance: Present: cooperative, no acute distress - Respiratory Details: Lungs sounds diminished in the bases bilaterally, coarse on the left side. Respirations even, nonlabored. Currently on 2 L nasal cannula with oxygen saturation in the 90s. Able to achieve 1000 mL on his incentive spirometry. [facility] vinny cough. Left sided Pleurx catheter present to continuous wall suction, 40 mL cloudy drainage overnight, 160 mL in the last 24 hours, intermittent air leak present when sitting up, no air leak when laying flat. - Cardiovascular Details: S1, S2 present. Regular rate and rhythm, sinus rhythm on telemetry with heart rate in the 90s. Palpable peripheral pulses bilaterally. Bilateral lower extremity edema present. No calf pain or tenderness noted. - Gastrointestinal Gastrointestinal Comment(s): Abdomen soft, nontender, nondistended. Active bowel sounds present 4 quadrants. Tolerating diet. Positive bowel movement 09/02 - Genitourinary Genitourinary Comment(s): Continues to void - Integumentary Integumentary Comment(s): Skin is warm and dry with evidence of good perfusion - Neurologic Neurologic: Present: CNII-XII intact - Musculoskeletal Musculoskeletal: Present: gait normal, strength equal bilaterally - Psychiatric Psychiatric: Present: A&O x's 3, appropriate affect, intact judgment & insight - Allied health notes Allied health notes reviewed: nursing - Labs CBC & Chem 7: 09/03/20 06:47 09/04/20 07:16 Labs: Abnormal Lab Results - Last 24 Hours (Table) 09/03/20 09/03/20 09/04/20 Range/Units 06:47 16:42 07:16 Neutrophils # (Manual) 10.20 H (1.3-7.7) k/uL Metamyelocytes # (Man) 0.14 H (0) k/uL Myelocytes # (Manual) 0.14 H (0) k/uL Potassium 3.3 L (3.5-5.1) mmol/L Carbon Dioxide 39 H (22-30) mmol/L POC Glucose (mg/dL) 104 H (75-99) mg/dL AST 73 H (17-59) U/L ALT 118 H (4-49) U/L Alkaline Phosphatase 362 H (38-126) U/L Total Protein 5.6 L (6.3-8.2) g/dL Albumin 2.4 L (3.5-5.0) g/dL - Imaging and Cardiology Chest x-ray: report reviewed, image reviewed Assessment and Plan Assessment: 1. 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 Acute hypoxic respiratory failure with sepsis on admission 3. Multiple admissions for pneumonia with empyema on the left and previous bilateral chest tube placement in December 2019 with cultures positive for strep pneumonia 4. Rheumatoid arthritis with rheumatoid lung 5. Hypertension, currently hypotensive, requiring pressors on admission 6. Hypothyroidism 7. History of DVT 8. Previous tobacco dependence 9. Family history of lung cancer 10. Recent hospitalization for hypotension, dehydration, acute kidney injury requiring dialysis 11. Extensive subcutaneous emphysema 12. Persistent atrial flutter with RVR, status post electrical cardioversion and radiofrequency ablation, currently sinus Plan: 1. Continue Pleurx catheter with -20 cm continuous wall suction. Will monitor for resolution of air leak and decreased subcu emphysema 2. Daily chest x-rays 3. Encourage incentive spirometry. Bronchodilators per pulmonology 4. Amiodarone, Eliquis per cardiology 5. Continue voriconazole per infectious disease recommendations 6. Increase activity as tolerated. Suction tubing extended so patient may ambulate in the room, may remove suction for short times for patient to ambulate in the hallway 7. Management of other comorbidities per primary care service. 8. Teaching done with patient and regarding Pleurx catheter care. Will continue to reinforce while patient is hospitalized 9. More recommendations to follow Time with Patient: Greater than 30
[2020-09-04 09:32] LABS: Anisocytosis Slight; HCT 33.6 % (39.0-53.0); HGB 9.9 gm/dL (13.0-17.5); Hypochromasia Marked; MCH 26.7 pg (25.0-35.0); MCHC 29.6 g/dL (31.0-37.0); MCV 90.2 fL (80.0-100.0); Mean Platelet Volume 10.1; Platelet Count 237 k/uL (150-450); RBC 3.73 m/uL (4.30-5.90); RDW 19.2 % (11.5-15.5); WBC 12.6 k/uL (3.8-10.6)
[2020-09-04] MEDS: TRIAMCINOLONE 0.1% CREAM 80 GM TUBE TOPICAL SCH ×2 (09:50→21:48)
[2020-09-04] MEDS: METOPROLOL TARTRATE 25 MG TAB PO SCH ×2 (09:50→10:08)
[2020-09-04] MEDS: POTASSIUM CHLORIDE ER 20 MEQ TAB.ER PO SCH ×2 (09:50→11:18)
[2020-09-04] MEDS: LACTATED RINGERS 1,000 ML IV SCH (09:50)
[2020-09-04] MEDS: AMMONIUM LACTATE 12% LOTION 225 GM BTL TOPICAL SCH ×2 (09:50→21:46)
--- NOTE | 2020-09-04 10:27 | P.PN ---
Subjective Progress Note Date: 09/04/20 This is a 60-year-old male patient requesting my service with past medical history of rheumatoid arthritis on Arava that was diagnosed when he was 37 year old initially was started on Methotrexate that he could not tolerate then placed on Embrel but he developed side effects and finally was tried on Humira injection but he developed neurologic sided effects and was hospitaized at [facility] for quiet some time, rheumatoid lung disease, previous history of loculated empyema with chest tube placement in January 2020, hypertension, hypothyroidism, history of DVT, remote history of tobacco use and dependence, was recently hospitalized at [facility] after he was admitted for an acute kidney injury with significant metabolic acidosis associated with the elevated creatinine and elevated BUN and hypotension at that time he was seen and evaluated by pulmonary and critical care medicine, he had a central line placed and at that time, he was placed on Levophed drip he was p laced on IV anabiotic as well but the patient recovered very fast and he had an echocardiogram that showed normal LV function and segmental hypokinesia, he was supposed to follow-up with Dr. 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 fitness sales consultant today and he had an episode when he was dizzy lightheaded and an episode of vomiting as well and he was sent to the emergency department for evaluation had a computed tomography of the chest as well as abdomen and pelvis that showed a thick walled pleural cavities posteriorly in the lower lungs with left-sided air-fluid level that has diminished in size from the prior computed tomography scan when he was in the hospital a few weeks back there is also associated compressive atelectasis and chronic consultation with multifocal areas of reticular nodular opacity in the upper lungs with a slight nodularity of the left upper lobe again this area of focal consultation has improved from the previous study that was done few weeks ago, patient was started on IV antibiotic with vancomycin and Zosyn as well as IV fluid, he was seen in consultation by pulmonary critical care in the emergency department as the patient blood pressure dropped and that he'll be transferred to the intensive care unit at this point in time I had long conve rsation with the patient and his at the bedside and the patient may need to have a chest tube placed for his possible right empyema, he did receive 3 L normal saline in the ER, and his blood pressure is marginal he may need to go on pressors if not recovered. 08/20:patient is sitting up in chair feeling about the same , complains of increased pain in the righ elbow, was seen earlier by pulmonary and the plan was to go for US-Guided left thoracenthesis due to to loculated left pleural effu unique and possible empyema, may need VATS, he denies any chest pain or shortness of breath, no abdominal pain nausea, vomiting or diarrhea, still have diarrhea negative for C.Diff, he seems to have accept to stay in the hospital this time as long as he needed to. 08/21: Patient sitting up in the recliner complaining of increased pain in his joints due to his rheumatoid arthritis with increased synovitis in both wrists both elbows and both shoulders he was started on hydrocortisone 100 mg IV push every 8 hours, to try to help with his blood pressure as well as his phonation, he is maintained on [place] 5/325 mg one tablet orally every 6 hours as needed for pain control, patient denies any chest pain is less short of breath, he continues to have increased coughing with yellow from production of green phlegm production, he had no fever or chills at this time he continues to be on Levothroid drip, patient has appeared to have increased swelling in both lower extremities as well as both ankles, he is maintained on IV antibiotic in the form of vancomycin as well as cefepime, infectious disease is following, patient is scheduled to go for ultrasound guidance thoracentesis of the left loculated pleural effusion tomorrow morning. 08/22: Patient remains in the intensive care unit. He has been afebrile, heart rate 100, blood pressure 95/62, pulse ox 97% on 2 L nasal cannula. Hemoglobin 8.8 and leukocytosis resolved. Creatinine 0.76, electrolytes normal. Sputum culture is positive for Aspergillus species. Blood culture showing no growth. Patient underwent diagnostic thoracentesis with interventional radiology today with removal of 45 mL of cloudy white fluid. Chest x-ray reveals no complications following left thoracentesis. Fluid has been sent for culture and cytology. Consult in place for cardiothoracic surgery to evaluate for VATS with decortication. 08/23: Patient remains in the intensive care unit. He did receive 1 dose of IV Lasix this morning ordered by nephrology. He is followed by cardiothoracic surgery was no plan for surgical intervention. ID has recommended cefepime and vancomycin for now. Expect antifungal agent ended as well. Patient denies any significant shortness of breath. He is comfortable sitting in a chair. Patient is having minimal cough and minimal sputum. Patient is achieving 1000 ml on incentive spirometry. Culture and cytology reports remain pending from thoracentesis. Repeat chest x-ray reveals patchy peripheral lung with lung zone and lower lung zone infiltrates persist unchanged. Patient has been afebrile, heart rate in the 90s and low 100s, pulse ox 91 on room air. 23: Repeat chest x-ray reveals left-sided basilar loculated pneumothorax, stable. Bilateral lung infiltrates. Correlate for pneumonia and atelectasis. WBC 9, hemoglobin 9.5. Potassium 3.4 and will be replaced. Patient is continued on cefepime and vancomycin per Dr. Blanton's recommendations. Patient in reaching 1000 on incentive spirometry. Patient is scheduled to see Dr. Dubois tomorrow. Cefepime and vancomycin had been discontinued by Dr. Blanton and started on Voriconazole. 08/25: A-Team was called this morning regarding elevated heart rate, EKG was atrial flutter with RVR and 150 bpm and patient was transferred to ICU as an overflow for the cardiac stepdown unit, started on Cardizem drip and consult with cardiology. Heart rate was improved with Cardizem and patient also received amiodarone bolus 300 mg. Patient denies any worsening shortness of breath, cough or congestion. No chest pain or palpitations. Patient is resting comfortably. 09, hemoglobin 8.8, potassium 3.4 replaced. Creatinine 0.89. 08/26: Patient remains in the intensive care unit. He continues to be in atrial flutter with 21 conduction rate. He is on heparin drip and amiodarone. He is currently in and out of atrial flutter with RVR. Cardiology is following closely and may consider cardioversion tomorrow. WBC 16.6, hgb 9.8, plt 374, sodium 143, potassium 3.9, creatinine 0.88. He has been afebrile, heart rate has been at times marginal, pulse ox 90% on room air. Patient denies having any fever or chills, no shortness of breath, no cough. No chest pain. Patient is followed by cardiothoracic surgery and plan is for left-sided PleurX catheter placement which is scheduled for Saturday. 08/29: Patient is scheduled for PleurX catheter placement this afternoon. Cardiology may schedule him for cardioversion. Dr. Woodall is planning on oral antimicrobials at the time of discharge. Patient is bringing up quite a bit of sputum. He has been afebrile, heart rate 68, blood pressure 100/67, pulse ox 93% on 1 L nasal cannula. WBC 21, hemoglobin 9.6, platelet count 325. Potassium 3, BUN 28 creatinine 0.8. 08/30: Patient is status post PleurX catheter. Patient has been afebrile, heart rate 106, blood pressure 85/53. Pulse ox 97% on 2 L. Patient is known to be back in atrial fibrillation at rate of 122. He did go for cardioversion today for atrial flutter. Patient states he has a little pain in the side for which she is taking [place]. Not bad today. Patient has subcutaneous edema to bilateral chest. He denies having any headache. BUN 27 creatinine 0.79. Blood sugar 90-126. 08/31: Patient denies chest pain or shortness of breath. He is reaching 1250 on IS. PleurX draining small amount of sanguinous fluid. Patient is in atrial flutter. Dr. Prieto is planning for EP study and ablation on and plan to continue eliquis. Patient is also on Lopressor 25 mg 3 times daily. Patient has been afebrile, heart rate 97, blood pressure 106/65, pulse ox 98% on room air. Blood sugars running between 112 and 67. Patient is covered with Voriconazole. Lac-Hydrin added for bilateral legs. 09/01: Patient is status post successful atrial flutter ablation with Dr. Prieto. Cardiology has recommended amlodipine 100 mg twice daily for 1 month. library monitor is a sinus rhythm with PACs. Metoprolol was decreased to 25 mg twice daily. Patient is on eliquis 5 mg twice daily. Patient has been afebrile, heart rate 64, blood pressure 121/77. Potassium 2.3 and replaced. Repeat level will be obtained this evening. Pleurx catheter remains in place connected to Pleur-evac with intermittent air leak. He has minimal output. Tyrone martell is continued on Advair, so for Aspergillus fungal infection managed by Dr. Blanton. He is planning on oral antimicrobial at the time of discharge. 09/02: Patient is resting in recliner. Patient's is at bedside. Patient states he walked in hallway and felt well but did have shortness of breath with activity. He continues to have subcutaneous emphysema. He continues to have air leak. WBC is 15.8, hemoglobin 10, platelet count 293. Potassium is 3 and will be replaced. BUN 27 creatinine 0.82. Patient has been afebrile, heart rate 79, blood pressure 114/66, pulse ox 90% on room air. Chest x-ray is stable findings. 09/03: Patient is sitting up in his recliner he is quite depressed because he stated the hospital for almost 2 weeks, he wanted to go home, he continues to have some leak in the chest tube on the left side, we will maintain the patient on voriconazole, and he has to take that for the next 4 weeks and possibly longer would leave that up to the discretion of infectious disease, I spoke with his as well as himself about the prognosis and the patient may need to send to the hospital until Saturday , meanwhile continue with physical therapy evaluation, anticipating home health care with physical therapy at home. 09/04: Patient is sitting in the recliner does not appear in acute distress, he continues to have the chest tube in the left side with minimal leakage, hopefully it will be removed in the next 24 hours and can be discharged home, he is maintained on voriconazole for his Aspergillus fumigate as, continue with increased activity, continue to monitor the patient very closely, anticipate discharge in 1-2 days. Objective - Vital Signs Vital signs: Vital Signs Temp 97.2 F L 09/04/20 08:00 Pulse 101 H 09/04/20 08:00 Resp 18 09/04/20 08:00 BP 99/56 02/14/21 08:00 Pulse Ox 92 L 09/04/20 08:00 Intake & Output 09/03/20 09/04/20 09/04/20 18:59 06:59 18:59 Intake Total 1009 10 246 Output Total 400 720 Balance 609 -710 246 Weight 102.1 kg Intake: IV 10 10 Invasive Line 6 10 10 Oral 1009 236 Output: Chest Tube Drainage 100 40 Left Mid-Axillary Chest 100 40 Drainage 40 Left Chest 40 Urine 300 640 Other: Voiding Method Toilet Toilet Urinal Urinal # Voids 1 - Exam - Exam Review of Systems Constitutional: Reports anorexia, Reports chronic pain, Reports fatigue, denies weakness, Reports weight loss Eyes: denies blurred vision, denies bulging eye, denies decreased vision, denies diplopia Ears, nose, mouth and throat: Denies dysphagia, Denies neck lump, Denies sore throat Respiratory: Reports dyspnea, with exertion Reports respiratory infections, Denies congestion, Denies cough with sputum, Denies home oxygen, Denies sleep apnea, Denies snoring, Denies wheezing Cardiac: No chest pain. No palpitations. No lower extremity edema. No syncopal episodes. Gastrointestinal: Reports bloating, Reports change in bowel habits, Reports diarrhea, Reports early satiety, Reports indigestion, Reports loss of appetite, Reports nausea, Reports vomiting, Denies abdominal pain, Denies belching, Denies heartburn, Denies hematemesis, Denies hematochezia, Denies melena Genitourinary: Denies dysuria, Denies nocturia Musculoskeletal: Denies myalgias Musculoskeletal: absent: ankle pain, ankle stiffness, ankle swelling, elbow pain, elbow stiffness, elbow swelling, foot pain, foot stiffness, foot swelling, hand pain, hand stiffness, hand swelling, hip pain, hip stiffness, hip swelling, knee pain, knee stiffness, knee swelling, shoulder pain, shoulder stiffness, shoulder swelling, wrist pain, wrist stiffness, wrist swelling Integumentary: Denies pruritus, Denies rash Neurological: Denies numbness, Denies weakness Psychiatric: Denies anxiety, Denies depression Endocrine: Denies fatigue, Denies weight change Physical examination: General: This is a 60-year-old male. Patient is resting in a recliner and appears to be comfortable. HEENT: head ia atraumatic normocephalic, Pupils were equal round reactive to light and accommodations , extra ocular muscle movement were intact, mucous membranes of the mouth are somewhat dry. Neck: supple no JVP. Chest: decreased breath sounds at he bases no expiratory wheezes no chest wall tendernes or intercostal retractions. PleurX cath in place. Positive subcutaneous emphysema. Heart: first heart sound is depressed, second heart sound is normal tachycardic and irregular there is BIRD 2/6 located at the left sternal border. Abdomen: soft, mild tenderness to the left lower quadrant positive bowel sounds, no guarding or rebound tenderness, no hepatosplenomegaly. Extremities: there is 1 edema or calf tenderness DP+ 2 Bilaterally, there is what appears to be a charcot joint in the right foot form arch collapse. Neurologic examination: patient is awake , alert and oriented X 3 CN II-XII are grossly intact, muscle power 4/5 in bilateral upper and lower extremities, deep tendon reflexes were normal. - Labs CBC & Chem 7: 09/03/20 06:47 09/04/20 07:16 Labs: Abnormal Lab Results - Last 24 Hours (Table) 09/03/20 09/03/20 09/04/20 Range/Units 06:47 16:42 07:16 Neutrophils # (Manual) 10.20 H (1.3-7.7) k/uL Metamyelocytes # (Man) 0.14 H (0) k/uL Myelocytes # (Manual) 0.14 H (0) k/uL Potassium 3.3 L (3.5-5.1) mmol/L Carbon Dioxide 39 H (22-30) mmol/L POC Glucose (mg/dL) 104 H (75-99) mg/dL AST 73 H (17-59) U/L ALT 118 H (4-49) U/L Alkaline Phosphatase 362 H (38-126) U/L Total Protein 5.6 L (6.3-8.2) g/dL Albumin 2.4 L (3.5-5.0) g/dL Assessment and Plan Assessment: Assessment and Plan Assessment: 1. Acute hypoxemic respiratory failure secondary to loculated left-sided pleural effusion and fungal empyema with what appears to be recurrent pneumonia. Continue Voriconazole 200 mg every 12 hours IV piggyback per Dr. Harvinder with plan for oral at the time of discharge, interventional radiology performed ultrasound-guided thoracentesis of the left loculated pleural fluid for Gram stain and culture and cytology as well as LDH protein as well as pH for possible empyema. Culture positive for Aspergillus. Cardiothoracic surgery status post Pleurx catheter insertion. 2. Lactic acidosis. Resolved, repeat lactic acid is back to normal. 3. Sepsis with septic shock and was stable. Patient has been weaned off Levothroid drip. 4. Acute kidney injury due to poor oral intake of fluid as well as hypotension with acute tubular necrosis. Patient is on IV fluid, continue to monitor the patient CMP continue to monitor urine output. Nephrology is following. 5. Leukocytosis secondary to severe sepsis secondary to empyema. Patient is off antibiotic. 6. Persistent atrial flutter with RVR. Status post cardioversion, converted back. Status post ablation completed by Dr. Prieto. Patient to continue eliquis. Continued on amiodarone 100 mg daily for one month. Cardiology consult appreciated. 7. Rheumatoid arthritis and rheumatoid lung. Arava and Xeljanz had been on hold since April. 8. History of empyema with Streptococcus requiring chest tube. 9. Hypertension and hypertensive cardiovascular disease. Lasix 40 mg IVP daily. 10. Hypothyroidism . we will continue with Synthroid 150 mcg orally daily. 11. DVT prophylaxis. Eliquis and SCDs. 12. GI prophylaxis. we will continue with Protonix 40 mg oral daily. Discharge plan: home possibly early next week
[2020-09-04] MEDS: SODIUM CHLORIDE 0.9% 1,000 ML IV SCH (10:46)
[2020-09-04 11:18] LABS: Eosinophils # (M) 0.76 k/uL (0-0.7); Lymphocytes # (M) 0.88 k/uL (1.0-4.8); Metamyelocytes # (M) 0.13 k/uL (0); Metamyelocytes % 1 %; Monocytes # (M) 0.88 k/uL (0-1.0); Myelocytes % 4 %; Neutrophils % (M) 77 %; Nucleated Red Blood Cells 0 /100 WBC (0-0); Total Cells Counted 200
[2020-09-04 11:19] LABS: Polychromasia Present
--- NOTE | 2020-09-04 11:40 | P.PN ---
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 Other medical history includes hypertension, hypothyroidism and previous history of DVT. Patient had a recent hospitalization from August 08 through 08/11/2020 hypotension, dehydration re lated to nausea vomiting diarrhea, acute kidney injury. Patient received antibiotics in the form of Zosyn and Levaquin for possibility of pneumonia, he is chest x-ray showed cranial perihilar pulmonary infiltrates with increased interstitial changes at the lung bases and was thought to be related to a combination of rheumatoid lung and chronic scarring. His last CT of the chest was on 07/19/2020 showing chronic changes to lower lungs, persistent irregular thick-walled pleural spaces in the posterior lung bases containing fluid and air with adjacent anterior lung with chronic consolidation or atelectasis. On 08/19/2020 patient came into the emergency department from Dr. GENE Carias's office where he was being seen for a regular follow-up appointments. He was noted to have low pulse ox 70s and was sent in to the emergency department for evaluation. He has been having cough with yellow and sometimes blood-tinged sputum, appears amounts, denies any fever, COVID 19 was found to be negative, chest x-ray showed perihilar and basilar infiltrates without significant change from previous chest x-ray on 08/09/2020. Lab data showed leukocytosis with white blood cell count of 19.1, hemoglobin of 12.1, INR 1.5, sodium is 135, potassium is 3.9, chloride is 102, CO2 is 19, creatinine is 1.32, which has actually improved since his discharge from the hospital on 08/11/2020 when he was at 1.84. Lactic acid was elevated at 3.7, patient was given a total of 2 L in fluid boluses, troponin was negative at less than 0.012. Urinalysis showed no evidence of infection. CT chest showed thick-walled pleural cavities posteriorly in the lower lungs with left-sided air-fluid level with left-sided pleural fluid diminished most recent CT from 07/19/2020. There is associated compressive atelectasis and/or chronic consolidation. Persistent as it is lobe fissure, multifocal areas of reticular nodular opacity in the upper lungs remain present with slight nodularity in the left upper lobe. There is a focal consolidation improved from most recent study with some residual areas of scarring. We will emergency department patient became hypotensive with a blood pressure in the 70s, slightly tachycardic remains in sinus mechanism, he is receiving his third liter bolus, his lactic acid did respond and improved he was started on antibiotics in the form of Zosyn and vancomycin The patient is seen today August 20 2020 in the intensive care unit. He is currently sitting up in a chair at the bedside. Awake and alert in no acute distress. Maintaining O2 saturations in the 90s on 2 L/m per nasal cannula. He did require a small dose of norepinephrine currently on 0.05 mcg/kg/m. He has lactated Ringer's at 100 MLS per hour. He remains on vancomycin and cefepime. Chest x-ray continues to show the left lower lobe effusion. White count 11.7. Hemoglobin 9.7. Sodium 135. Potassium 3.6. Creatinine 1.00. Blood cultures reveal no growth to date. Reevaluated today on 08/21/2020, remains in the ICU, still on norepinephrine at 0.04 mcg/kg/m. On LR at 1 25 mL per hour. On vancomycin and cefepime empirically, blood pressure remains marginal, went ahead and recommended Solu-Cortef 100 mg IV push every 8 hours and hopefully will be able to discontinue norepinephrine today. His IV fluid is cut down to KVO. Given 20 mg of Lasix IV push, and I have recommended that we monitor the patient in the ICU for the next 24 hours. Chest x-ray is basically the same, continues to show ch ronic finding, difficult to exclude underlying pneumonia/empyema. CT of the chest on admission was also reviewed, difficult to rule out underlying empyema. Clinically the patient is feeling better except for generally weak. WBC count is 12.5 hemoglobin is 9.9. Normal renal profile is normal blood cultures are negative so far. Sputum cultures are also negative so far. On 08/22/2020 patient seen in follow-up in the intensive care unit, he is awake and alert, oriented 3, sitting up in the recliner, currently on 2 L of oxygen his pulse ox is 95-100%, his been afebrile, hemodynamically he is stable, he is not on any vasopressor support. His lactate Ringer's running at 20 ML per hour, antibiotics include cefepime and vancomycin, blood pressure has been stable, so far blood and sputum cultures are negative, he denies chest pain, his breathing is comfortable. Today's labs have been reviewed, showing white blood cell count trending down, 10.2 today, hemoglobin is 8.8, electrolytes and renal profile are unremarkable. Serum cortisol level came back at 3, patient continues on stress doses of hydrocortisone 100 mg every 8 hours. Patient has not been stable, we'll consult interventional radiology for ultrasound-guided left thoracentesis On 08/23/2020 patient seen in follow-up in the intensive care unit, he is calm and comfortable, awake and alert, sitting up in the recliner, currently on room air with a pulse ox of 93-94%, his been afebrile, hemodynamically he is been stable, he is on IV LR at 20 ML per hour, no other drips. He is on cefepime and vancomycin for antibiotic coverage, yesterday he underwent left thoracentesis with removal of 43 mL of pleural fluid which was sent for cultures. Tolerated procedure well. His pleural fluid analysis revealed total fluid protein of 1.3 g, and fluid LDH of greater than 4500 consistent with exudative fluid. His microbiology data has been reviewed showing Aspergillus fumigate is in the sputum, his pleural fluid cultures are pending at this time, the cultures have shown no growth, hemodynamically has been stable, he is breathing easier, he still has cough mostly in the morning and the amount of secretions his bringing up is decreasing in amount. Lung sounds revealed a few scattered wheezes, and a few rhonchi at bilateral bases. Is tolerating oral intake. No abdominal pain, no nausea or vomiting, today's labs have been reviewed, white blood cell count is 11.2, hemoglobin is 9.1, sodium is 137, potassium is 4.0, chloride is 109, BUN is 15, creatinine 0.80. No acute events overnight. He is working on incentive spirometer, he is achieving 1000 today On 08/24/2020 patient seen in follow-up on medical surgical floor. He is awake and alert, in no acute distress, breathing comfortably, denies any chest pain, room air pulse ox is 94%, no fever or chills, today's chest x-ray shows left basilar loculated pneumothorax, stable in appearance, bilateral lung infiltrates. His pleural fluid cultures so far showing Aspergillus species, as does his sputum culture. Blood culture show no growth. The cervix is follow ing, current antibiotic coverage includes cefepime, vancomycin has been discontinued, she received 1 dose of IV Lasix per nephrology. He has produced 2500 in urine output, and he is in -1.6 L over the last 24 hours, however he still has significant lower extremity edema. The patient is seen today 08/25/2020 in follow-up in the intensive care unit. He was transferred here earlier this morning after developing atrial fibrillation/flutter with a rapid ventricular response. He was initiated on C ardizem at 5 mg per hour. He has 0.9 normal saline at 20 ML's per hour. He is currently awake and alert in no acute distress. No worsening shortness of breath, cough or congestion. No chest pain or palpitations. He sitting up in a chair at the bedside. Maintaining O2 saturations in the 90s on 2 L/m per nasal cannula. Chest x-ray does reveal loculated posterior basilar pneumothoraces, stable from previous exam. There is diffuse increased lung markings. Correlate for pneumonia and atelectasis. Pleural fluid cultures is positive for Aspergillus species. White count 10.9. Hemoglobin 8.8. Sodium 139. Potassium 3.4. Creatinine 0.89. He remains on bronchodilators, IV diuretics, IV Solu- Cortef. Continued on voriconazole. The patient is seen today 08/27/2020 in follow-up on the selective care unit. He is currently sitting up in a recliner at the bedside. Awake and alert in no acute distress. He is currently on room air. LR at 20 miles per hour. Heparin drip per weight base protocol. White count 19.0. Hemoglobin 9.1. Sodium 142. Potassium 3.6. Creatinine 0.81. He remains on voriconazole. The patient is seen today 08/28/2020 in follow-up on the selective care unit. He is currently sitting up in a chair at the bedside. No worsening shortness of breath, cough or congestion. Chest x-ray reveals bilateral airspace infiltrates right greater than left without significant improvement. Sputum and pleural fluid cultures were both positive for Aspergillus fumigatus. He remains on voriconazole. White count 18.5. Hemoglobin 10.1. Sodium 141. Potassium 3.3. Creatinine 0.8. Atrial fibrillation. He remains on a heparin drip. Plan is for left-sided Pleurx catheter placement in a.m. The patient is seen today 09/04/2020 in follow-up on the selective care unit. He is currently sitting up in a recliner. Awake and alert in no acute distress. Maintaining O2 saturations in the low 90s on 2 L/m per nasal cannula. He is afebrile. Hemodynamically stable. Pleural fluid cultures were positive for Aspergillus fumigatus. White count 12.6. Hemoglobin 9.9. Neutrophils 9.7. Sodium 140. Potassium 3.3. Creatinine 0.68. AST 73, ALT 118. Chest x-ray co ntinues to show severe diffuse bilateral subcutaneous emphysema. Suspect a left-sided pneumothorax along the costophrenic angle measuring 10-15%. Left- sided Pleurx catheter remains in place. Positive leak. Remains on voriconazole, bronchodilators, IV diuretics. Quite related with Eliquis. Objective - Vital Signs Vital signs: Vital Signs Temp 97.2 F L 09/04/20 08:00 Pulse 101 H 09/04/20 08:00 Resp 18 09/04/20 08:00 BP 94/51 09/04/20 09:54 Pulse Ox 92 L 09/04/20 08:00 Intake & Output 09/03/20 09/04/20 09/04/20 18:59 06:59 18:59 Intake Total 1009 10 246 Output Total 400 720 940 Balance 913 -817 -773 Weight 102.1 kg Intake: IV 10 10 Invasive Line 6 10 10 Oral 1009 236 Output: Chest Tube Drainage 100 40 40 Left Mid-Axillary Chest 100 40 40 Drainage 40 Left Chest 40 Urine 300 640 900 Other: Voiding Method Toilet Toilet Urinal Urinal # Voids 1 - Exam GENERAL EXAM: Alert, very pleasant 60-year-old gentleman, on 2 L nasal cannula, comfortable in no apparent distress. HEAD: Normocephalic. EYES: Normal reaction of pupils, equal size. NOSE: Clear with pink turbinates. THROAT: No erythema or exudates. NECK: No masses, no JVD. CHEST: Bilateral subcutaneous emphysema. Left Pleurx catheter remains in place. LUNGS: Equal air entry with few scattered rhonchi, crackles in the posterior bases. CVS: S1 and S2 normal with no audible murmur, irregular rhythm. Tachycardic. ABDOMEN: No hepatosplenomegaly, normal bowel sounds, no guarding or rigidity. SPINE: No scoliosis or deformity SKIN: No rashes CENTRAL NERVOUS SYSTEM: No focal deficits, tone is normal in all 4 extremities. EXTREMITIES: There is 2+ peripheral edema. No clubbing, no cyanosis. Peripheral pulses are intact. - Labs CBC & Chem 7: 09/04/20 07:16 09/04/20 07:16 Labs: Abnormal Lab Results - Last 24 Hours (Table) 09/03/20 09/04/20 09/04/20 Range/Units 16:42 07:16 07:16 WBC 12.6 H (3.8-10.6) k/uL RBC 3.73 L (4.30-5.90) m/uL Hgb 9.9 L (13.0-17.5) gm/dL Hct 33.6 L (39.0-53.0) % MCHC 29.6 L (31.0-37.0) g/dL RDW 19.2 H (11.5-15.5) % Neutrophils # (Manual) 9.70 H (1.3-7.7) k/uL Lymphocytes # (Manual) 0.88 L (1.0-4.8) k/uL Eosinophils # (Manual) 0.76 H (0-0.7) k/uL Metamyelocytes # (Man) 0.13 H (0) k/uL Myelocytes # (Manual) 0.50 H (0) k/uL Potassium 3.3 L (3.5-5.1) mmol/L Carbon Dioxide 39 H (22-30) mmol/L POC Glucose (mg/dL) 104 H (75-99) mg/dL AST 73 H (17-59) U/L ALT 118 H (4-49) U/L Alkaline Phosphatase 362 H (38-126) U/L Total Protein 5.6 L (6.3-8.2) g/dL Albumin 2.4 L (3.5-5.0) g/dL Assessment and Plan Assessment: 1 Acute hypoxic respiratory failure secondary to sepsis, septic shock, related to pneumonia, with chronic loculated effusions, possible empyema. Cultures positive for Aspergillus fumigatus. Patient is postop day #6. He continues to have intermittent air leak. Output from the Pleurx catheter was noted. He does have some stable subcutaneous emphysema bilaterally. There is also some diabetic dysfunction and elevation of the liver function tests related to voriconazole which is being monitored very closely 2 Bilateral hydropneumothorax, possible empyema, status post ultrasound-guided left-sided thoracentesis on 08/22/2020 with 45 ML's of cloudy white fluid removed, showing Aspergillus. Remains on voriconazole. 3 Bilateral subcutaneous emphysema along with a hydropneumothorax on the left with positive air leak through the Pleurx catheter. He was currently attached to continuous suction 4 Recent pulmonary infections with history of streptococcal pneumonia, empyema requiring chest tube placement in January 2020. 5 Chronic loculated pneumothoraces, posterior, with air-fluid seen on CAT scan imaging on the chest. Possibility of trapped lung, chronic scarring and possibility of empyema. 6 History of rheumatoid arthritis and rheumatoid lung disease. On Arava 7 Recent history of acute kidney injury 8 Hypertension 9 Hypothyroidism 10 Previous history of DVT. 11 New-onset atrial fibrillation/flutter anticoagulated status post failed cardioversion. Currently on Eliquis and amiodarone Plan: The patient was seen and evaluated by Dr. Dougherty Chest x-ray and labs reviewed Significant stable bilateral subcutaneous emphysema Pleurx catheter remains in place, currently to continuous suction We'll continue to follow I, the cosigning physician, performed a history & physical examination of the patient. Lungs sounds bilateral scattered rhonchi and crackles in the bilateral bases. Maintaining good O2 saturations in the 90s on 2 L/m per nasal cannula. I discussed the assessment and plan of care with my nurse practitioner, Morena Cobb. I attest to the above note as dictated by her.
--- NOTE | 2020-09-04 14:32 | P.PN ---
Subjective Progress Note Date: 09/04/20 This is a pleasant 60-year-old gentleman who's been admitted to the hospital with acute hypoxic respiratory failure secondary to fungal pneumonia with empyema. Patient underwent placement of a chest tube. We've been following the patient is a patient was found to be in atrial flutter with rapid ventricular response. He underwent cardioversion on 08/30/[address] Prieto which unfortunately was only briefly successful. He subsequently underwent successful ablation on 09/01/[address] Prieto. He is currently maintaining sinus mechanism. He continues to be on amiodarone 100 mg by mouth daily which she will be on for one month. He is anticoagulated. Currently on a beta tricia. Upon examination the patient is resting comfortably in a chair. His main complaint is of edema. Patient appears to have subcutaneous emphysema but is quite generalized. Patient complains of scrotal edema which also appears to be subcutaneous emphysema. Patient continues to have a chest tube in place. 09/04/20 Patient continues to maintain sinus mechanism. Blood pressure is running on the low side in the 80s to 90s systolic. Continues to complain mostly of the edema. Chest tube remains in place. Continues to be followed by cardiothoracic surgery. Objective - Vital Signs Vital signs: Vital Signs Temp 98.3 F 09/04/20 12:00 Pulse 103 H 09/04/20 12:00 Resp 16 09/04/20 12:00 BP 96/52 09/04/20 12:00 Pulse Ox 91 L 09/04/20 12:00 Intake & Output 09/03/20 09/04/20 09/04/20 18:59 06:59 18:59 Intake Total 1009 10 729 Output Total 400 720 940 Balance 609 -710 -211 Weight 102.1 kg Intake: IV 10 20 Invasive Line 6 10 20 Oral 1009 709 Output: Chest Tube Drainage 100 40 40 Left Mid-Axillary Chest 100 40 40 Drainage 40 Left Chest 40 Urine 300 640 900 Other: Voiding Method Toilet Toilet Urinal Urinal # Voids 1 - Exam PHYSICAL EXAMINATION: HEENT: Head is atraumatic, normocephalic. Pupils equal, round. Neck is supple. There is no elevated jugular venous pressure. HEART EXAMINATION: Heart sounds regular, S1 and S2 normal. No murmur or gallop heard. CHEST EXAMINATION: Lungs reveal scattered rhonchi although some difficult in assessing due to subcutaneous emphysema. Left Pleurx chest tube noted. ABDOMEN: Soft, nontender. Cutaneous emphysema noted down to the scrotum. EXTREMITIES: Bilateral upper extremity edema and subcutaneous emphysema noted, bilateral ankle and pedal pitting edema noted left worse than right.. NEUROLOGIC patient is awake, alert and oriented x3. . - Labs CBC & Chem 7: 09/04/20 07:16 09/04/20 07:16 Labs: Abnormal Lab Results - Last 24 Hours (Table) 09/03/20 09/04/20 09/04/20 Range/Units 16:42 07:16 07:16 WBC 12.6 H (3.8-10.6) k/uL RBC 3.73 L (4.30-5.90) m/uL Hgb 9.9 L (13.0-17.5) gm/dL Hct 33.6 L (39.0-53.0) % MCHC 29.6 L (31.0-37.0) g/dL RDW 19.2 H (11.5-15.5) % Neutrophils # (Manual) 9.70 H (1.3-7.7) k/uL Lymphocytes # (Manual) 0.88 L (1.0-4.8) k/uL Eosinophils # (Manual) 0.76 H (0-0.7) k/uL Metamyelocytes # (Man) 0.13 H (0) k/uL Myelocytes # (Manual) 0.50 H (0) k/uL Potassium 3.3 L (3.5-5.1) mmol/L Carbon Dioxide 39 H (22-30) mmol/L POC Glucose (mg/dL) 104 H (75-99) mg/dL AST 73 H (17-59) U/L ALT 118 H (4-49) U/L Alkaline Phosphatase 362 H (38-126) U/L Total Protein 5.6 L (6.3-8.2) g/dL Albumin 2.4 L (3.5-5.0) g/dL Assessment and Plan Assessment: 1 typical atrial flutter with rapid ventricular response, status post cardioversion and subsequent ablation, maintaining sinus mechanism 2 acute hypoxic respiratory failure 3 fungal pneumonia with empyema 4 hypertension 5 hyperlipidemia Plan: From cardiology perspective medications reviewed and due to hypotension we will decrease dose of the beta tricia. Continue amiodarone for one month. Continue to monitor the patient telemetry. Pulmonary and cardiothoracic surgery continue to follow. We will continue to follow the patient and provide further recommendations accordingly. The above dictated assessment and findings were discussed with signing physician. The impression and plan of care have been directed as dictated. Micaela Gottlieb, Nurse Practitioner, acting as scribe for signing physician.
[2020-09-04] MEDS: ASCORBIC ACID 500 MG TAB PO SCH (21:44)
[2020-09-04] MEDS: CHOLECALCIFEROL 25 MCG (1000 IU) TABLET PO SCH (21:45)
[2020-09-04] MEDS: ASPIRIN 81 MG PO SCH (21:45)
[2020-09-04] MEDS: METOPROLOL TARTRATE 12.5 MG TAB PO SCH (21:45)
--- NOTE | 2020-09-04 22:20 | PN ---
PROGRESS NOTE DATE OF SERVICE: 09/04/2020 REASON FOR FOLLOWUP: Aspergillosis and empyema. INTERVAL HISTORY: The patient is currently afebrile, has been breathing comfortably. Denies having any chest pain or shortness of breath. Occasional cough. No abdominal pain. No diarrhea. PHYSICAL EXAMINATION: Blood pressure 99/57, pulse of 103, temperature is 98, she is 91% on 2 L nasal cannula. General description is a middle-aged male lying in bed in no distress. Respiratory system: Unlabored breathing with decreased breath sounds in the base, with no wheezes. Clear to auscultation anteriorly. Heart: S1, S2. Regular rate and rhythm. Abdomen soft, no tenderness. LABS: Hemoglobin is 9.9, white count 12.6, BUN of 19, creatinine 0.68. DIAGNOSTIC IMPRESSION AND PLAN: Patient with Aspergillus pneumonia, empyema, status post PleurX catheter placement, now with evidence of . The patient is covered with voriconazole. However, the patient was also started on Amiodarone by cardiology with drug interaction with these two medications, we will discuss further with them as the patient needs long-term outpatient oral V-Fen. Continue supportive care. MMODL / IJN: [id number] /
[2020-09-05] MEDS: PANTOPRAZOLE 40 MG TABLET PO SCH (06:59)
[2020-09-05] MEDS: LEVOTHYROXINE 75 MCG TAB PO SCH (06:59)
--- NOTE | 2020-09-05 07:39 | XR ---
EXAMINATION TYPE: XR chest 1V portable DATE OF EXAM: 09/05/2020 Comparison: 09/04/2020 and 09/03/2020 Clinical History: 60-year-old male Trapped lung Findings: Continued diffuse severe bilateral subcutaneous emphysema. Patchy confluent airspace opacity througho ut the right lung persists. Patchy opacity left mid and lower lung persists. There is a left-sided pl eural catheter demonstrated and suspected stable loculated small left basilar pneumothorax measuring approximately 2 cm. Heart mildly enlarged. IMPRESSION: 1. Overall stable exam allowing for limitations secondary to severe subcutaneous emphysema. 2. Left-sided pleural catheter remains in place with suspected stable 2 cm small left basilar pneumot horax. 3. Airspace disease throughout the right lung is similar from 09/04/2020 but show some improvement fro m 09/03/2020. Patchy airspace disease left lower lung is also unchanged from 09/04/2020.
[2020-09-05] MEDS: IPRATROPIUM-ALBUTEROL 3 ML NEB INHALATION SCH ×3 (08:04→19:42)
[2020-09-05 08:17] LABS: Anisocytosis Slight; HCT 32.3 % (39.0-53.0); HGB 9.6 gm/dL (13.0-17.5); Hypochromasia Marked; MCH 26.6 pg (25.0-35.0); MCHC 29.6 g/dL (31.0-37.0); MCV 89.9 fL (80.0-100.0); Mean Platelet Volume 9.4; Platelet Count 230 k/uL (150-450); RBC 3.59 m/uL (4.30-5.90); RDW 19.4 % (11.5-15.5)
[2020-09-05 08:26] LABS: ALT 125 U/L (4-49); AST 146 U/L (17-59); African American GFR (CKD) >90 (>60 ml/min/1.73 sqM); Albumin 2.4 g/dL (3.5-5.0); Alkaline Phosphatase 495 U/L (38-126); Anion Gap 5 mmol/L; Blood Urea Nitrogen 17 mg/dL (9-20); Calcium 8.4 mg/dL (8.4-10.2); Carbon Dioxide 35 mmol/L (22-30); Chloride 99 mmol/L (98-107); Glucose 99 mg/dL (74-99); Magnesium 1.9 mg/dL (1.6-2.3); Non-African American GFR(CKD) >90 (>60 ml/min/1.73 sqM); Potassium 3.6 mmol/L (3.5-5.1); Sodium 139 mmol/L (137-145); Total Bilirubin 1.4 mg/dL (0.2-1.3); Total Protein 5.7 g/dL (6.3-8.2)
[2020-09-05] MEDS: METOPROLOL TARTRATE 12.5 MG TAB PO SCH ×2 (10:40→20:02)
[2020-09-05] MEDS: APIXABAN 5 MG TAB PO SCH ×2 (10:40→20:02)
[2020-09-05] MEDS: FUROSEMIDE 10 MG/ML 4 ML VIAL IV SCH (10:40)
[2020-09-05] MEDS: AMIODARONE 100 MG TAB PO SCH (10:41)
[2020-09-05] MEDS: TRIAMCINOLONE 0.1% CREAM 80 GM TUBE TOPICAL SCH ×2 (10:41→20:02)
[2020-09-05] MEDS: AMMONIUM LACTATE 12% LOTION 225 GM BTL TOPICAL SCH ×2 (10:41→20:02)
[2020-09-05] MEDS: LACTATED RINGERS 1,000 ML IV SCH (10:42)
--- NOTE | 2020-09-05 11:49 | P.PN ---
Subjective Progress Note Date: 09/05/20 Principal diagnosis: Bilateral pneumonia, left trapped lung with fungal empyema growing Aspergillus species, acute hypoxic respiratory failure with sepsis on admission. Radius his tory of multiple admissions for pneumonia with empyema on the left and previous bilateral chest tube placement in December 2019 with cultures positive for strep pneumonia, rheumatoid arthritis with rheumatoid lung, hypertension, hypothyroidism, DVT, previous tobacco dependence, family history of lung cancer, and recent hospitalization for hypotension, dehydration, acute kidney injury requiring dialysis POD #14 left-sided thoracentesis by interventional radiology POD #7 left Pleurx catheter placement with irrigation of pleural space and instillation of amphotericin B solution under thoracoscopic guidance Extensive subcutaneous emphysema Persistent atrial flutter with RVR, status post electrical cardioversion, status post radiofrequency ablation The patient is currently sitting up in a recliner on the cardiac stepdown unit in no acute distress. Denies pain, states shortness of breath has continued to improve, appears comfortable. Subcutaneous emphysema continues to appear slightly better daily. Remains on IV Lasix and IV voriconazole. Remains afebrile, currently in sinus rhythm and hemodynamically stable. Left sided Pleurx catheter continues to wall suction, intermittent air leak present when patient is sitting up and coughing, no air leak present otherwise. Patient is getting very discouraged, would like to go home although does understand our concerns for safety with presence of air leak Objective - Vital Signs Vital signs: Vital Signs Temp 98.5 F 09/05/20 08:00 Pulse 98 09/05/20 08:00 Resp 17 09/05/20 04:00 BP 99/57 09/05/20 08:00 Pulse Ox 95 09/05/20 08:00 Intake & Output 09/04/20 09/05/20 09/05/20 18:59 06:59 18:59 Intake Total 1509 30 590 Output Total 1540 900 20 Balance -31 -870 570 Weight 101.9 kg Intake: IV 20 30 Invasive Line 6 20 30 Oral [id number] [id number] Output: Chest Tube Drainage 40 10 10 Left Mid-Axillary Chest 40 10 10 Drainage 10 10 Left Chest 10 10 Urine 1500 880 Other: Voiding Method Toilet Toilet Urinal Urinal # Voids 1 - Constitutional General appearance: Present: cooperative, no acute distress - Respiratory Details: Lungs sounds diminished in the bases bilaterally. Respirations even, nonlabored. Currently on 2 L nasal cannula with oxygen saturation in the 90s. Able to achieve 1000 mL on his incentive spirometry. Strong cough. Left sided Pleurx catheter present to continuous wall suction, 140 mL cloudy drainage in the last 24 hours, intermittent air leak present when sitting up and coughing, no air leak otherwise. Subcutaneous emphysema to both arms, chest and back remains - Cardiovascular Details: S1, S2 present. Regular rate and rhythm, sinus rhythm on telemetry with heart rate in the 90s. Palpable peripheral pulses bilaterally. Bilateral lower extremity edema present. No calf pain or tenderness noted. - Gastrointestinal Gastrointestinal Comment(s): Abdomen soft, nontender, nondistended. Active bowel sounds present 4 quadrants. Tolerating diet. Positive bowel movement 09/02 - Genitourinary Genitourinary Comment(s): Continues to void - Integumentary Integumentary Comment(s): Skin is warm and dry with evidence of good perfusion - Neurologic Neurologic: Present: CNII-XII intact - Musculoskeletal Musculoskeletal: Present: gait normal, strength equal bilaterally - Psychiatric Psychiatric: Present: A&O x's 3, appropriate affect, intact judgment & insight - Allied health notes Allied health notes reviewed: nursing - Labs CBC & Chem 7: 09/05/20 07:40 09/05/20 07:40 Labs: Abnormal Lab Results - Last 24 Hours (Table) 09/05/20 09/05/20 Range/Units 07:40 07:40 WBC 13.0 H (3.8-10.6) k/uL RBC 3.59 L (4.30-5.90) m/uL Hgb 9.6 L (13.0-17.5) gm/dL Hct 32.3 L (39.0-53.0) % MCHC 29.6 L (31.0-37.0) g/dL RDW 19.4 H (11.5-15.5) % Carbon Dioxide 35 H (22-30) mmol/L Total Bilirubin 1.4 H (0.2-1.3) mg/dL AST 146 H (17-59) U/L ALT 125 H (4-49) U/L Alkaline Phosphatase 495 H (38-126) U/L Total Protein 5.7 L (6.3-8.2) g/dL Albumin 2.4 L (3.5-5.0) g/dL - Imaging and Cardiology Chest x-ray: report reviewed, image reviewed Assessment and Plan Assessment: 1. 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 Acute hypoxic respiratory failure with sepsis on admission 3. Multiple admissions for pneumonia with empyema on the left and previous bilateral chest tube placement in December 2019 with cultures positive for strep pneumonia 4. Rheumatoid arthritis with rheumatoid lung 5. Hypertension, currently hypotensive, requiring pressors on admission 6. Hypothyroidism 7. History of DVT 8. Previous tobacco dependence 9. Family history of lung cancer 10. Recent hospitalization for hypotension, dehydration, acute kidney injury requiring dialysis 11. Extensive subcutaneous emphysema 12. Persistent atrial flutter with RVR, status post electrical cardioversion and radiofrequency ablation, currently sinus Plan: 1. Continue Pleurx catheter with -20 cm continuous wall suction. Will monitor for resolution of air leak and decreased subcu emphysema 2. Daily chest x-rays 3. Encourage incentive spirometry. Bronchodilators per pulmonology 4. Amiodarone, Eliquis per cardiology 5. Continue voriconazole per infectious disease recommendations 6. Increase activity as tolerated. Suction tubing extended so patient may ambulate in the room, may remove suction for short times for patient to ambulate in the hallway 7. Management of other comorbidities per primary care service. 8. Teaching done with patient and regarding Pleurx catheter care. Will continue to reinforce while patient is hospitalized 9. More recommendations to follow Time with Patient: Greater than 30
[2020-09-05] MEDS: VORICONAZOLE 400 MG in SODIUM CHLORIDE 0.9% 250 ML IVPB SCH ×2 (13:20→20:37)
--- NOTE | 2020-09-05 13:54 | P.PN ---
Subjective Progress Note Date: 09/05/20 HISTORY OF PRESENT ILLNESS: Patient examined this morning. Patient is sitting up in the chair. He denies chest pain or pressure. He denies shortness of breath. He remains in sinus mechanism on telemetry. Left pleurx chest tube remains in place with intermittent air leak. Patient is frustrated and wants to be discharged home. PHYSICAL EXAM: VITAL SIGNS: Reviewed. GENERAL: Well-developed in no acute distress. NECK: Supple. No JVD or thyromegaly LUNGS: Respirations even and unlabored. Lungs diminished. Left Pleurx chest tube noted. HEART: Regular rate and rhythm. S1 and S2 heard. EXTREMITIES: Normal range of motion. No clubbing or cyanosis. Peripheral pulses intact. 1+ bilateral lower extremity edema ASSESSMENT: Typical atrial flutter with RVR, s/p cardioversion and ablation Acute hypoxic respiratory failure Fungal pneumonia with empyema Hypertension Hyperlipidemia PLAN: Continue Eliquis Continue amiodarone 100 mg by mouth daily for one month then discontinue per Dr. Prieto Continue beta tricia. Dose was decreased yesterday. Continue telemetry monitoring Pulmonary and cardiothoracic surgery following Further recommendations pending patient course Nurse practitioner note has been reviewed by physician. Signing provider agrees with the documented findings, assessment, and plan of care. Objective - Vital Signs Vital signs: Vital Signs Temp 98.5 F 09/05/20 08:00 Pulse 98 09/05/20 08:00 Resp 17 09/05/20 04:00 BP 99/57 09/05/20 08:00 Pulse Ox 95 09/05/20 08:00 Intake & Output 09/04/20 09/05/20 09/05/20 18:59 06:59 18:59 Intake Total 1509 30 590 Output Total 1540 900 20 Balance -31 -870 570 Weight 101.9 kg Intake: IV 20 30 Invasive Line 6 20 30 Oral [id number] [id number] Output: Chest Tube Drainage 40 10 10 Left Mid-Axillary Chest 40 10 10 Drainage 10 10 Left Chest 10 10 Urine 1500 880 Other: Voiding Method Toilet Toilet Urinal Urinal # Voids 1 - Labs CBC & Chem 7: 09/05/20 07:40 09/05/20 07:40 Labs: Abnormal Lab Results - Last 24 Hours (Table) 09/05/20 09/05/20 Range/Units 07:40 07:40 WBC 13.0 H (3.8-10.6) k/uL RBC 3.59 L (4.30-5.90) m/uL Hgb 9.6 L (13.0-17.5) gm/dL Hct 32.3 L (39.0-53.0) % MCHC 29.6 L (31.0-37.0) g/dL RDW 19.4 H (11.5-15.5) % Carbon Dioxide 35 H (22-30) mmol/L Total Bilirubin 1.4 H (0.2-1.3) mg/dL AST 146 H (17-59) U/L ALT 125 H (4-49) U/L Alkaline Phosphatase 495 H (38-126) U/L Total Protein 5.7 L (6.3-8.2) g/dL Albumin 2.4 L (3.5-5.0) g/dL
[2020-09-05 14:17] VITALS: BMI 29.6
--- NOTE | 2020-09-05 15:49 | P.PN ---
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 Other medical history includes hypertension, hypothyroidism and previous history of DVT. Patient had a recent hospitalization from August 08 through 08/11/2020 hypotension, dehydration related to nausea vomiting diarrhea, acute kidney injury. Patient received antibiotics in the form of Zosyn and Levaquin for possibility of pneumonia, he is chest x-ray showed cranial perihilar pulmonary infiltrates with increased interstitial changes at the lung bases and was thought to be related to a combi nation of rheumatoid lung and chronic scarring. His last CT of the chest was on 07/19/2020 showing chronic changes to lower lungs, persistent irregular thick- walled pleural spaces in the posterior lung bases containing fluid and air with adjacent anterior lung with chronic consolidation or atelectasis. On 08/19/2020 patient came into the emergency department from Dr. GENE Carias's office where he w as being seen for a regular follow-up appointments. He was noted to have low pulse ox 70s and was sent in to the emergency department for evaluation. He has been having cough with yellow and sometimes blood-tinged sputum, appears amounts, denies any fever, COVID 19 was found to be negative, chest x-ray showed perihilar and basilar infiltrates without significant change from previous chest x-ray on 08/09/2020. Lab data showed leukocytosis with white blood cell count of 19.1, hemoglobin of 12.1, INR 1.5, sodium is 135, potassium is 3.9, chloride is 102, CO2 is 19, creatinine is 1.32, which has actually improved since his discharge from the hospital on 08/11/2020 when he was at 1.84. Lactic acid was elevated at 3.7, patient was given a total of 2 L in fluid boluses, troponin was negative at less than 0.012. Urinalysis showed no evidence of infection. CT chest showed thick-walled pleural cavities posteriorly in the lower lungs with left-sided air-fluid level with left-sided pleural fluid diminished most recent CT from 07/19/2020. There is associated compressive atelectasis and/or chronic consolidation. Persistent as it is lobe fissure, multifocal areas of reticular nodular opacity in the upper lungs remain present with slight nodularity in the left upper lobe. There is a focal consolidation improved from most recent study with some residual areas of scarring. We will emergency department patient became hypotensive with a blood pressure in the 70s, slightly tachycardic r emains in sinus mechanism, he is receiving his third liter bolus, his lactic acid did respond and improved he was started on antibiotics in the form of Zosyn and vancomycin The patient is seen today August 20 2020 in the intensive care unit. He is currently sitting up in a chair at the bedside. Awake and alert in no acute distress. Maintaining O2 saturations in the 90s on 2 L/m per nasal cannula. He did require a small dose of norepinephrine currently on 0.05 mcg/kg/m. He has lactated Ringer's at 100 MLS per hour. He remains on vancomycin and cefepime. Chest x-ray continues to show the left lower lobe effusion. White count 11.7. Hemoglobin 9.7. Sodium 135. Potassium 3.6. Creatinine 1.00. Blood cultures reveal no growth to date. Reevaluated today on 08/21/2020, remains in the ICU, still on norepinephrine at 0.04 mcg/kg/m. On LR at 1 25 mL per hour. On vancomycin and cefepime empirically, blood pressure remains marginal, went ahead and recommended Solu- Cortef 100 mg IV push every 8 hours and hopefully will be able to discontinue norepinephrine today. His IV fluid is cut down to KVO. Given 20 mg of Lasix IV push, and I have recommended that we monitor the patient in the ICU for the next 24 hours. Chest x-ray is basically the same, continues to show chronic finding, difficult to exclude underlying pneumonia/empyema. CT of the chest on admission was also reviewed, difficult to rule out underlying empyema. Clinically the patient is feeling better except for generally weak. WBC count is 12.5 hemoglobin is 9.9. Normal renal profile is normal blood cultures are negative so far. Sputum cultures are also negative so far. On 08/22/2020 patient seen in follow-up in the intensive care unit, he is awake and alert, oriented 3, sitting up in the recliner, currently on 2 L of oxygen his pulse ox is 95-100%, his been afebrile, hemodynamically he is stable, he is not on any vasopressor support. His lactate Ringer's running at 20 ML per hour, antibiotics include cefepime and vancomycin, blood pressure has been stable, so far blood and sputum cultures are negative, he denies chest pain, his breathing is comfortable. Today's labs have been reviewed, showing white blood cell count trending down, 10.2 today, hemoglobin is 8.8, electrolytes and renal profile are unremarkable. Serum cortisol level came back at 3, patient continues on stress doses of hydrocortisone 100 mg every 8 hours. Patient has not been stable, we'll consult interventional radiology for ultrasound-guided left thoracentesis On 08/23/2020 patient seen in follow-up in the intensive care unit, he is calm and comfortable, awake and alert, sitting up in the recliner, currently on room air with a pulse ox of 93-94%, his been afebrile, hemodynamically he is been stable, he is on IV LR at 20 ML per hour, no other drips. He is on cefepime and vancomycin for antibiotic coverage, yesterday he underwent left thoracentesis with removal of 43 mL of pleural fluid which was sent for cultures. Tolerated procedure well. His pleural fluid analysis revealed total fluid protein of 1.3 g, and fluid LDH of greater than 4500 consistent with exudative fluid. His microbiology data has been reviewed showing Aspergillus fumigate is in the sputum, his pleural fluid cultures are pending at this time, the cultures have shown no growth, hemodynamically has been stable, he is breathing easier, he still has cough mostly in the morning and the amount of secretions his bringing up is decreasing in amount. Lung sounds revealed a few scattered wheezes, and a few rhonchi at bilateral bases. Is tolerating oral intake. No abdominal pain, no nausea or vomiting, today's labs have been reviewed, white blood cell count is 11.2, hemoglobin is 9.1, sodium is 137, potassium is 4.0, chloride is 109, BUN is 15, creatinine 0.80. No acute events overnight. He is working on incentive spirometer, he is achieving 1000 today On 08/24/2020 patient seen in follow-up on medical surgical floor. He is awake and alert, in no acute distress, breathing comfortably, denies any chest pain, room air pulse ox is 94%, no fever or chills, today's chest x-ray shows left basilar loculated pneumothorax, stable in appearance, bilateral lung infiltrates. His pleural fluid cultures so far showing Aspergillus species, as does his sputum culture. Blood culture show no growth. The cervix is following, current antibiotic coverage includes cefepime, vancomycin has been discontinued, she received 1 dose of IV Lasix per nephrology. He has produced 2500 in urine output, and he is in -1.6 L over the last 24 hours, however he still has significant lower extremity edema On 08/26/2020 patient seen in follow-up in the intensive care unit, he is awake and alert, in no acute distress, on room air, his pulse ox is 93%, currently on amiodarone at 0.5 mg/m, heparin infusion per weight based protocol, 0.9 normal saline at a rate of 10 ML per hour, his heart rate is still poorly controlled, he remains in atrial flutter with a rate of 140 BPM. He's had no fever or chills, he status post ultrasound-guided thoracentesis of the left pleural space with removal of 45 mL of pleural fluid in the cultures were positive for Aspergillus. Infectious disease service is following, and voriconazole was started. Clinically patient denies any shortness of breath, no cough, no compressive chest pain, we discussed the case with the cardiothoracic surgery yesterday, and plan is to proceed with the placement of Pleurx catheter into the left pleural space today. On 08/31/2020 patient seen in follow-up. Sitting up in the recliner, breathing comfortably, his on 2 L of oxygen pulse ox of 90%, he's been afebrile, morgan bcutaneous emphysema slightly worsened especially involving right upper chest area, left chest Pleurx catheter remains in place, connected to Pleur-evac to suction and there is some intermittent air leak still present, his chest x-ray shows severe bilateral septic hence emphysema, small left basilar hydropneumothorax, and bilateral patchy infiltrates right greater than left not significantly changed, patient remains on voriconazole, and his left chest pleural fluid fungal culture was positive for Aspergillus fumigatus. Total fluid cytology was not sent however pathology lab still has the pleural fluid which we will request cytology. On 09/01/2020 patient seen in follow-up. He is resting in bed, subcu emphysema in his bilateral upper chest seems to have slightly progressed since yesterday, no significant extension to his neck area, his voice is still left chest Pleurx catheter in place connected to Pleur-evac and there is intermittent air leak at times it is more continuous. There has only been 85 mL of serosanguineous output in the last 24 hours, pleural fluid cytology was sent from the pleural fluid collected on 07/31/2020, results are pending. Continues on voriconazole for evidence of Aspergillus fungal infection in the pleural space. Today's labs reviewed, showing blood vessel, 16, hemoglobin is 9.7, sodium is 143, potassium is 2.8, chloride is 100 CO2 is 27 BUN is 28 and creatinine 0.78, LFTs seems to have acutely increased, with AST up to 127, ALT is 120, and alkaline phosphatase of 320. No fever or chills, patient of breath but no acute distress, today's chest x-ray shows extensive subcutaneous emphysema, small pneumothoraces at the lung bases, in worsening-appearing infiltrate through the right lung base. On 09/02/2020 patient seen in follow-up. His left-sided Pleurx catheter remains connected to Pleur-evac continuous wall suction, and the air leak is slightly better however it still consistent and intermittent in nature today, his subcutaneous emphysema remains stable, has not significantly increased. Room air pulse ox is 90%, patient is working on the incentive spirometer, he is pulling [id number] on the today, he's been afebrile, he remains on voriconazole for antibiotic coverage, chest x-ray today shows a left basilar pleural catheter unchanged in position, and extensive subcutaneous emphysema throughout the chest wall and neck, there is no sizable pneumothorax, and there is diffuse infiltrate throughout the right lung, left lower lobe. Today's labs have been reviewed, when blood cell count is 15.8, hemoglobin is 10, sodium is 141, potassium is 3.0, chloride is 99, CO2 is 37, B1 is 27, creatinine 0.82, AST is 209, ALT is 193, alkaline phosphatase is 425, and his liver enzymes are trending up. We will ask infectious disease to see if this could be related to the antibiotics On 09/05/2020 patient seen in follow-up on selective care unit, left-sided Pleurx chest tube catheter remains in place, connected to Pleur-evac, and con tinuous wall suction, there is a intermittent air leak still present, patient still has subcutaneous emphysema involving his upper chest, relatively stable in appearance, ration is on 2 L of oxygen pulse ox is 97%, he's been afebrile, hemodynamic we his been stable, no worsening dyspnea, he is working on incentive spirometer, his left-sided chest tube is putting out very small amount of output. Remains on voriconazole for Aspergillus in the pleural fluid cultures. Clinically stable, status post electrical cardioversion for atrial flutter with RVR. He is on diuretics, he is in -900 mL fluid balance, today's chest x-ray shows stable exam with severe subcutaneous emphysema, stable 2 cm small left basilar pneumothorax, airspace disease throughout the right lung with some improvement compared to 2020, left lower lung patchy airspace disease is unchanged. Today's labs have been reviewed, showing white blood cell, 13.0, hemoglobin is 9.6, electrolytes unremarkable, with the exception of the CO2 of 35, renal profile is unremarkable, liver enzymes show AST of 146 which has increased since yesterday, ALT of 125 slightly increased since yesterday, alkaline phosphatase at 495. This could possibly be related to voriconazole or amiodarone, and we have asked infectious disease service to consider possible dose reduction of voriconazole, and this may be an additive effect together with amiodarone Objective - Vital Signs Vital signs: Vital Signs Temp 98.5 F 09/05/20 08:00 Pulse 98 09/05/20 12:00 Resp 17 09/05/20 04:00 BP 93/52 09/05/20 12:00 Pulse Ox 97 09/05/20 12:00 Intake & Output 09/04/20 09/05/20 09/05/20 18:59 06:59 18:59 Intake Total 1509 30 830 Output Total 1540 900 620 Balance -31 870 210 Weight 101.9 kg 101.9 kg Intake: IV 20 30 Invasive Line 6 20 30 Oral 1489 830 Output: Chest Tube Drainage 40 10 10 Left Mid-Axillary Chest 40 10 10 Drainage 10 10 Left Chest 10 10 Urine 1500 880 600 Other: Voiding Method Toilet Toilet Urinal Urinal # Voids 1 - Exam GENERAL EXAM: Alert, pleasant, 60-year-old male patient, on 2 L of oxygen with a pulse ox of 94%, currently sitting up in chair at the bedside, comfortable in no apparent distress. HEAD: Normocephalic/atraumatic. EENT: PERRLA, EOMI, nonicteric. Moist mucous membranes, no neck masses, no JVD, no stridor. CHEST: No chest wall deformity. Symmetrical expansion. Left chest Pleurx catheter connected to Pleur-evac, to wall suction, with intermittent air leak present, serosanguineous output in the Pleur-evac. There is extensive subcutaneous emphysema in his anterior bilateral upper chest, extending into his neck and shoulders LUNGS: Bibasilar rhonchi, and a few scattered wheezes CVS: Regular rate and rhythm, normal S1 and S2, no gallops, no murmurs, no rubs ABDOMEN: Soft, nontender. No hepatosplenomegaly, normal bowel sounds, no guarding or rigidity. EXTREMITIES: No clubbing, 1+ lower extremity edema, no cyanosis, 2+ pulses and upper and lower extremities. MUSCULOSKELETAL: Muscle strength and tone normal. SPINE: No scoliosis or deformity SKIN: No rashes CENTRAL NERVOUS SYSTEM: Alert and oriented -3. No focal deficits, tone is normal in all 4 extremities. PSYCHIATRIC: Alert and oriented -3. Appropriate affect. Intact judgment and insight. - Labs CBC & Chem 7: 09/05/20 07:40 09/05/20 07:40 Labs: Abnormal Lab Results - Last 24 Hours (Table) 09/05/20 09/05/20 Range/Units 07:40 07:40 WBC 13.0 H (3.8-10.6) k/uL RBC 3.59 L (4.30-5.90) m/uL Hgb 9.6 L (13.0-17.5) gm/dL Hct 32.3 L (39.0-53.0) % MCHC 29.6 L (31.0-37.0) g/dL RDW 19.4 H (11.5-15.5) % Carbon Dioxide 35 H (22-30) mmol/L Total Bilirubin 1.4 H (0.2-1.3) mg/dL AST 146 H (17-59) U/L ALT 125 H (4-49) U/L Alkaline Phosphatase 495 H (38-126) U/L Total Protein 5.7 L (6.3-8.2) g/dL Albumin 2.4 L (3.5-5.0) g/dL Assessment and Plan Plan: Assessment: #1. Acute hypoxic respiratory failure related to sepsis, septic shock, related to pneumonia, with chronic loculated effusions, rule out possibility of empyema. COVID 19 was ruled out per PCR. Pleural fluid culture positive for Aspergillus fumigators, patient is on voriconazole, ideally patient would benefit from surgical intervention including thoracoscopy/decortication however this could be an extensive surgery for him in patient had the left chest Pleurx catheter inserted for drainage Patient is post insertion of a left-sided Pleurx catheter and instillation of amphotericin B into the pleural space, the left lung was trapped with fungal empyema, patient has intermittent air leak, and there is a subcutaneous emphysema involving neck, upper chest #2. Bilateral hydropneumothorax, rule out possibility of empyema, status post ultrasound-guided left-sided thoracentesis on 08/22/2020 would removal of 45 mL of cloudy white fluid, which was exudative in nature, pleural fluid culture only showing Aspergillus, antibiotic coverage is with cefepime and vancomycin, it service is following, CT surgery has no plans for surgical intervention at this time. on 08/31/2020 patient is on voriconazole for evidence of Aspergillus fumigators in the pleural fluid #3. Recent admission to the hospital for hypotension, dehydration related to nausea vomiting diarrhea, acute kidney injury #4. Recurrent pulmonary infections, with history of streptococcal pneumonia and empyema requiring chest tube placement in January 2020 #5. Chronic loculated pneumothoraces, posterior, with air-fluid level seen on the CT imaging of the chest, the possibility of trapped lung, chronic scarring and possibility of empyema needs to be ruled out #6. Elevated d-dimer with no CT evidence for pulmonary embolism #7. History of rheumatoid arthritis and rheumatoid lung disease on Arava #8. Recent history of acute kidney injury, and admission lab work today shows improvement in his renal function #9. Hypertension #10. Hypothyroidism #11. Previous history of foot infections requiring antibiotics #12. Previous history of DVT #13. Transaminitis possibly related to antifungal antibiotics, will obtain follow-up labs Plan: Continue the Pleurx chest tube to continuous wall suction, still has the intermittent air leak which is decreasing, continue deep breathing and coughing, no acute events overnight, ID service to address possible dose adjustment of voriconazole, continue monitoring LFTs, will follow I performed a history & physical examination of the patient and discussed their management with my nurse practitioner, Марина Thompson. I reviewed the nurse practitioner's note and agree with the documented findings and plan of care. Lung sounds are positive for diminished breath sounds. The findings and the impression was discussed with the patient. I attest to the documentation by the nurse practitioner. Time with Patient: Less than 30
[2020-09-05] MEDS: SODIUM CHLORIDE 0.9% 1,000 ML IV SCH (18:59)
[2020-09-05] MEDS: CHOLECALCIFEROL 25 MCG (1000 IU) TABLET PO SCH (20:01)
[2020-09-05] MEDS: ASCORBIC ACID 500 MG TAB PO SCH (20:02)
[2020-09-05] MEDS: ASPIRIN 81 MG PO SCH (20:02)
--- NOTE | 2020-09-05 23:45 | PN ---
PROGRESS NOTE DATE OF SERVICE: 09/05/2020 REASON FOR FOLLOWUP: Aspergillus pneumonia and empyema. INTERVAL HISTORY: Patient is currently afebrile. The patient is breathing comfortably, slightly upset about being stuck in the hospital for 16 days, but denies having any chest pain or cough. No abdominal pain. No diarrhea. PHYSICAL EXAMINATION: Blood pressure 97/54 with a pulse of 98, temperature 98.5. General description is a middle-aged male lying in bed in no distress. Respiratory system: Unlabored breathing, decreased breath sounds in the bases. No wheeze. HEART: S1, S2. Regular rate and rhythm. ABDOMEN: Soft, no tenderness. LABORATORY STUDIES: Hemoglobin 9.6, white count 13,000, BUN of 17, creatinine 0.70. DIAGNOSTIC IMPRESSION AND PLAN: Patient with Aspergillus pneumonia, empyema, status post thoracotomy and PleurX catheter placement, now with concern for a leak. The patient is currently on V-Fen. Liver enzymes mildly elevated. Amiodarone was discussed with cake icer and packer, recommending to be discontinued to decrease risk of interaction between these two medications. Monitor clinical course closely. MMODL / IJN: [id number] /
[2020-09-06] MEDS: PANTOPRAZOLE 40 MG TABLET PO SCH (05:42)
[2020-09-06] MEDS: LEVOTHYROXINE 75 MCG TAB PO SCH (05:42)
[2020-09-06] MEDS: IPRATROPIUM-ALBUTEROL 3 ML NEB INHALATION SCH ×3 (07:40→19:34)
--- NOTE | 2020-09-06 08:17 | XR ---
EXAMINATION TYPE: XR chest 1V portable DATE OF EXAM: 09/06/2020 COMPARISON: 09/05/2020 INDICATION: Trapped lung TECHNIQUE: Single frontal view of the chest is obtained. FINDINGS: The heart size is normal. The pulmonary vasculature is normal. There is right upper lobe infiltrate. Some mild peripheral infiltrate on the right may be present. Le ft basilar peripheral infiltrate is present. There is a chest tube on the left. Pneumothorax is not identified. Extensive subcutaneous emphysema h owever limits evaluation for small pneumothorax. Minimal left apical pneumothorax could be considered . IMPRESSION: 1. No definite large pneumothorax. Small left apical pneumothorax could be considered. 2. Bilateral peripheral infiltrates in the right upper lobe infiltrate
[2020-09-06] MEDS: METOPROLOL TARTRATE 12.5 MG TAB PO SCH ×2 (08:36→19:56)
[2020-09-06] MEDS: AMIODARONE 100 MG TAB PO SCH (08:36)
[2020-09-06] MEDS: APIXABAN 5 MG TAB PO SCH ×2 (08:36→19:56)
[2020-09-06] MEDS: TRIAMCINOLONE 0.1% CREAM 80 GM TUBE TOPICAL SCH ×2 (08:36→19:58)
[2020-09-06] MEDS: AMMONIUM LACTATE 12% LOTION 225 GM BTL TOPICAL SCH ×2 (08:36→19:58)
--- NOTE | 2020-09-06 11:09 | P.PN ---
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 Radius his tory of multiple admissions for pneumonia with empyema on the left and previous bilateral chest tube placement in December 2019 with cultures positive for strep pneumonia, rheumatoid arthritis with rheumatoid lung, hypertension, hypothyroidism, DVT, previous tobacco dependence, family history of lung cancer, and recent hospitalization for hypotension, dehydration, acute kidney injury requiring dialysis POD #15 left-sided thoracentesis by interventional radiology POD #8 left Pleurx catheter placement with irrigation of pleural space and instillation of amphotericin B solution under thoracoscopic guidance Extensive subcutaneous emphysema Persistent atrial flutter with RVR, status post electrical cardioversion, status post radiofrequency ablation The patient is currently sitting up in a recliner on the cardiac stepdown unit in no acute distress. Denies pain, states shortness of breath has continued to improve, appears comfortable. Remains afebrile, currently in sinus rhythm and hemodynamically stable. Left sided Pleurx catheter continues to wall suction, intermittent air leak present. Patient is getting very discouraged, would like to go home although does understand our concerns for safety with presence of air leak. States he has been ambulatory in hallway without difficulty Objective - Vital Signs Vital signs: Vital Signs Temp 98.6 F 09/06/20 08:00 Pulse 96 09/06/20 08:00 Resp 19 09/06/20 04:00 BP 87/53 09/06/20 08:00 Pulse Ox 95 09/06/20 08:00 Intake & Output 09/05/20 09/06/20 09/06/20 18:59 06:59 18:59 Intake Total 1070 472 Output Total 770 780 400 Balance 300 -780 72 Weight 101.9 kg 101.6 kg Intake: Oral 1070 472 Output: Chest Tube Drainage 10 100 Left Mid-Axillary Chest 10 100 Drainage 160 Left Chest 160 Urine 600 680 400 Other: Voiding Method Toilet Urinal - Constitutional General appearance: Present: cooperative, no acute distress - Respiratory Details: Lungs sounds diminished in the bases bilaterally. Respirations even, nonlabored. Currently on 2 L nasal cannula with oxygen saturation in the mid 90s. Able to achieve 1000 mL on his incentive spirometry. Strong cough. Left sided Pleurx catheter present to continuous wall suction, 300 mL cloudy drainage in the last 24 hours, intermittent air leak present. Subcutaneous emphysema to both arms, chest and back remains - Cardiovascular Details: S1, S2 present. Regular rate and rhythm, sinus rhythm on telemetry with heart rate in the 90s. Palpable peripheral pulses bilaterally. Bilateral lower ext remity edema present. No calf pain or tenderness noted. - Gastrointestinal Gastrointestinal Comment(s): Abdomen soft, nontender, nondistended. Active bowel sounds present 4 quadrants. Tolerating diet. Positive bowel movement 09/02 - Genitourinary Genitourinary Comment(s): Continues to void - Integumentary Integumentary Comment(s): Skin is warm and dry with evidence of good perfusion - Neurologic Neurologic: Present: CNII-XII intact - Musculoskeletal Musculoskeletal: Present: gait normal, strength equal bilaterally - Psychiatric Psychiatric: Present: A&O x's 3, appropriate affect, intact judgment & insight - Allied health notes Allied health notes reviewed: nursing - Labs CBC & Chem 7: 09/05/20 07:40 09/05/20 07:40 Labs: Microbiology - Last 24 Hours (Table) 08/22/20 11:30 Acid Fast Bacilli Smear - Final Pleural Fluid Acid Fast Bacilli Culture - Preliminary - Imaging and Cardiology Chest x-ray: report reviewed, image reviewed Assessment and Plan Assessment: 1. 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 Acute hypoxic respiratory failure with sepsis on admission 3. Multiple admissions for pneumonia with empyema on the left and previous bilateral chest tube placement in December 2019 with cultures positive for strep pneumonia 4. Rheumatoid arthritis with rheumatoid lung 5. Hypertension, currently hypotensive, requiring pressors on admission 6. Hypothyroidism 7. History of DVT 8. Previous tobacco dependence 9. Family history of lung cancer 10. Recent hospitalization for hypotension, dehydration, acute kidney injury requiring dialysis 11. Extensive subcutaneous emphysema 12. Persistent atrial flutter with RVR, status post electrical cardioversion and radiofrequency ablation, currently sinus Plan: 1. Continue Pleurx catheter with -20 cm continuous wall suction. Will monitor for resolution of air leak and decreased subcu emphysema 2. Daily chest x-rays 3. Encourage incentive spirometry. Bronchodilators per pulmonology 4. Amiodarone, Eliquis per cardiology 5. Continue voriconazole per infectious disease recommendations 6. Increase activity as tolerated. Suction tubing extended so patient may ambulate in the room, may remove suction for short times for patient to ambulate in the hallway 7. Management of other comorbidities per primary care service. 8. Teaching done with patient and regarding Pleurx catheter care. Will continue to reinforce while patient is hospitalized 9. More recommendations to follow Time with Patient: Greater than 30
[2020-09-06] MEDS: VORICONAZOLE 400 MG in SODIUM CHLORIDE 0.9% 250 ML IVPB SCH (12:16)
[2020-09-06] MEDS: LACTATED RINGERS 1,000 ML IV SCH (12:16)
[2020-09-06] MEDS: SODIUM CHLORIDE 0.9% 1,000 ML IV SCH (12:16)
--- NOTE | 2020-09-06 13:54 | P.PN ---
Subjective Progress Note Date: 09/06/20 HISTORY OF PRESENT ILLNESS: Patient examined this morning. Patient is sitting up in the chair. He denies chest pain or pressure. He denies shortness of breath. He remains in sinus mechanism on telemetry. Left pleurx chest tube remains in place with intermittent air leak. PHYSICAL EXAM: VITAL SIGNS: Reviewed. GENERAL: Well-developed in no acute distress. NECK: Supple. No JVD or thyromegaly LUNGS: Respirations even and unlabored. Lungs diminished. Left Pleurx chest tube noted. HEART: Regular rate and rhythm. S1 and S2 heard. EXTREMITIES: Normal range of motion. No clubbing or cyanosis. Peripheral pulses intact. 1+ bilateral lower extremity edema ASSESSMENT: Typical atrial flutter with RVR, s/p cardioversion and ablation Acute hypoxic respiratory failure Fungal pneumonia with empyema Hypertension Hyperlipidemia PLAN: Continue Eliquis Continue amiodarone 100 mg by mouth daily for one month then discontinue per Dr. Prieto Continue beta tricia Continue telemetry monitoring Pulmonary and cardiothoracic surgery following Patient is currently stable from a cardiac standpoint. We will sign off. Please reconsult if needed. Nurse practitioner note has been reviewed by physician. Signing provider agrees with the documented findings, assessment, and plan of care. Objective - Vital Signs Vital signs: Vital Signs Temp 98.6 F 09/06/20 08:00 Pulse 93 09/06/20 12:00 Resp 19 09/06/20 04:00 BP 90/53 09/06/20 12:00 Pulse Ox 97 09/06/20 12:00 Intake & Output 09/05/20 09/06/20 09/06/20 18:59 06:59 18:59 Intake Total 1070 472 Output Total 770 780 400 Balance 300 -780 72 Weight 101.9 kg 101.6 kg Intake: Oral 1070 472 Output: Chest Tube Drainage 10 100 Left Mid-Axillary Chest 10 100 Drainage 160 Left Chest 160 Urine 600 680 400 Other: Voiding Method Toilet Urinal - Labs CBC & Chem 7: 09/05/20 07:40 09/05/20 07:40 Labs: Microbiology - Last 24 Hours (Table) 08/22/20 11:30 Acid Fast Bacilli Smear - Final Pleural Fluid Acid Fast Bacilli Culture - Preliminary
--- NOTE | 2020-09-06 16:00 | P.PN ---
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 Other medical history includes hypertension, hypothyroidism and previous history of DVT. Patient had a recent hospitalization from August 08 through 08/11/2020 hypotension, dehydration related to nausea vomiting diarrhea, acute kidney injury. Patient received antibiotics in the form of Zosyn and Levaquin for possibility of pneumonia, he is chest x-ray showed cranial perihilar pulmonary infiltrates with increased interstitial changes at the lung bases and was thought to be related to a combi nation of rheumatoid lung and chronic scarring. His last CT of the chest was on 07/19/2020 showing chronic changes to lower lungs, persistent irregular thick- walled pleural spaces in the posterior lung bases containing fluid and air with adjacent anterior lung with chronic consolidation or atelectasis. On 08/19/2020 patient came into the emergency department from Dr. GENE Carias's office where he w as being seen for a regular follow-up appointments. He was noted to have low pulse ox 70s and was sent in to the emergency department for evaluation. He has been having cough with yellow and sometimes blood-tinged sputum, appears amounts, denies any fever, COVID 19 was found to be negative, chest x-ray showed perihilar and basilar infiltrates without significant change from previous chest x-ray on 08/09/2020. Lab data showed leukocytosis with white blood cell count of 19.1, hemoglobin of 12.1, INR 1.5, sodium is 135, potassium is 3.9, chloride is 102, CO2 is 19, creatinine is 1.32, which has actually improved since his discharge from the hospital on 08/11/2020 when he was at 1.84. Lactic acid was elevated at 3.7, patient was given a total of 2 L in fluid boluses, troponin was negative at less than 0.012. Urinalysis showed no evidence of infection. CT chest showed thick-walled pleural cavities posteriorly in the lower lungs with left-sided air-fluid level with left-sided pleural fluid diminished most recent CT from 07/19/2020. There is associated compressive atelectasis and/or chronic consolidation. Persistent as it is lobe fissure, multifocal areas of reticular nodular opacity in the upper lungs remain present with slight nodularity in the left upper lobe. There is a focal consolidation improved from most recent study with some residual areas of scarring. We will emergency department patient became hypotensive with a blood pressure in the 70s, slightly tachycardic r emains in sinus mechanism, he is receiving his third liter bolus, his lactic acid did respond and improved he was started on antibiotics in the form of Zosyn and vancomycin The patient is seen today August 20 2020 in the intensive care unit. He is currently sitting up in a chair at the bedside. Awake and alert in no acute distress. Maintaining O2 saturations in the 90s on 2 L/m per nasal cannula. He did require a small dose of norepinephrine currently on 0.05 mcg/kg/m. He has lactated Ringer's at 100 MLS per hour. He remains on vancomycin and cefepime. Chest x-ray continues to show the left lower lobe effusion. White count 11.7. Hemoglobin 9.7. Sodium 135. Potassium 3.6. Creatinine 1.00. Blood cultures reveal no growth to date. Reevaluated today on 08/21/2020, remains in the ICU, still on norepinephrine at 0.04 mcg/kg/m. On LR at 1 25 mL per hour. On vancomycin and cefepime empirically, blood pressure remains marginal, went ahead and recommended Solu- Cortef 100 mg IV push every 8 hours and hopefully will be able to discontinue norepinephrine today. His IV fluid is cut down to KVO. Given 20 mg of Lasix IV push, and I have recommended that we monitor the patient in the ICU for the next 24 hours. Chest x-ray is basically the same, continues to show chronic finding, difficult to exclude underlying pneumonia/empyema. CT of the chest on admission was also reviewed, difficult to rule out underlying empyema. Clinically the patient is feeling better except for generally weak. WBC count is 12.5 hemoglobin is 9.9. Normal renal profile is normal blood cultures are negative so far. Sputum cultures are also negative so far. On 08/22/2020 patient seen in follow-up in the intensive care unit, he is awake and alert, oriented 3, sitting up in the recliner, currently on 2 L of oxygen his pulse ox is 95-100%, his been afebrile, hemodynamically he is stable, he is not on any vasopressor support. His lactate Ringer's running at 20 ML per hour, antibiotics include cefepime and vancomycin, blood pressure has been stable, so far blood and sputum cultures are negative, he denies chest pain, his breathing is comfortable. Today's labs have been reviewed, showing white blood cell count trending down, 10.2 today, hemoglobin is 8.8, electrolytes and renal profile are unremarkable. Serum cortisol level came back at 3, patient continues on stress doses of hydrocortisone 100 mg every 8 hours. Patient has not been stable, we'll consult interventional radiology for ultrasound-guided left thoracentesis On 08/23/2020 patient seen in follow-up in the intensive care unit, he is calm and comfortable, awake and alert, sitting up in the recliner, currently on room air with a pulse ox of 93-94%, his been afebrile, hemodynamically he is been stable, he is on IV LR at 20 ML per hour, no other drips. He is on cefepime and vancomycin for antibiotic coverage, yesterday he underwent left thoracentesis with removal of 43 mL of pleural fluid which was sent for cultures. Tolerated procedure well. His pleural fluid analysis revealed total fluid protein of 1.3 g, and fluid LDH of greater than 4500 consistent with exudative fluid. His microbiology data has been reviewed showing Aspergillus fumigate is in the sputum, his pleural fluid cultures are pending at this time, the cultures have shown no growth, hemodynamically has been stable, he is breathing easier, he still has cough mostly in the morning and the amount of secretions his bringing up is decreasing in amount. Lung sounds revealed a few scattered wheezes, and a few rhonchi at bilateral bases. Is tolerating oral intake. No abdominal pain, no nausea or vomiting, today's labs have been reviewed, white blood cell count is 11.2, hemoglobin is 9.1, sodium is 137, potassium is 4.0, chloride is 109, BUN is 15, creatinine 0.80. No acute events overnight. He is working on incentive spirometer, he is achieving 1000 today On 08/24/2020 patient seen in follow-up on medical surgical floor. He is awake and alert, in no acute distress, breathing comfortably, denies any chest pain, room air pulse ox is 94%, no fever or chills, today's chest x-ray shows left basilar loculated pneumothorax, stable in appearance, bilateral lung infiltrates. His pleural fluid cultures so far showing Aspergillus species, as does his sputum culture. Blood culture show no growth. The cervix is following, current antibiotic coverage includes cefepime, vancomycin has been discontinued, she received 1 dose of IV Lasix per nephrology. He has produced 2500 in urine output, and he is in -1.6 L over the last 24 hours, however he still has significant lower extremity edema On 08/26/2020 patient seen in follow-up in the intensive care unit, he is awake and alert, in no acute distress, on room air, his pulse ox is 93%, currently on amiodarone at 0.5 mg/m, heparin infusion per weight based protocol, 0.9 normal saline at a rate of 10 ML per hour, his heart rate is still poorly controlled, he remains in atrial flutter with a rate of 140 BPM. He's had no fever or chills, he status post ultrasound-guided thoracentesis of the left pleural space with removal of 45 mL of pleural fluid in the cultures were positive for Aspergillus. Infectious disease service is following, and voriconazole was started. Clinically patient denies any shortness of breath, no cough, no compressive chest pain, we discussed the case with the cardiothoracic surgery yesterday, and plan is to proceed with the placement of Pleurx catheter into the left pleural space today. On 08/31/2020 patient seen in follow-up. Sitting up in the recliner, breathing comfortably, his on 2 L of oxygen pulse ox of 90%, he's been afebrile, morgan bcutaneous emphysema slightly worsened especially involving right upper chest area, left chest Pleurx catheter remains in place, connected to Pleur-evac to suction and there is some intermittent air leak still present, his chest x-ray shows severe bilateral septic hence emphysema, small left basilar hydropneumothorax, and bilateral patchy infiltrates right greater than left not significantly changed, patient remains on voriconazole, and his left chest pleural fluid fungal culture was positive for Aspergillus fumigatus. Total fluid cytology was not sent however pathology lab still has the pleural fluid which we will request cytology. On 09/01/2020 patient seen in follow-up. He is resting in bed, subcu emphysema in his bilateral upper chest seems to have slightly progressed since yesterday, no significant extension to his neck area, his voice is still left chest Pleurx catheter in place connected to Pleur-evac and there is intermittent air leak at times it is more continuous. There has only been 85 mL of serosanguineous output in the last 24 hours, pleural fluid cytology was sent from the pleural fluid collected on 07/31/2020, results are pending. Continues on voriconazole for evidence of Aspergillus fungal infection in the pleural space. Today's labs reviewed, showing blood vessel, 16, hemoglobin is 9.7, sodium is 143, potassium is 2.8, chloride is 100 CO2 is 27 BUN is 28 and creatinine 0.78, LFTs seems to have acutely increased, with AST up to 127, ALT is 120, and alkaline phosphatase of 320. No fever or chills, patient of breath but no acute distress, today's chest x-ray shows extensive subcutaneous emphysema, small pneumothoraces at the lung bases, in worsening-appearing infiltrate through the right lung base. On 09/02/2020 patient seen in follow-up. His left-sided Pleurx catheter remains connected to Pleur-evac continuous wall suction, and the air leak is slightly better however it still consistent and intermittent in nature today, his subcutaneous emphysema remains stable, has not significantly increased. Room air pulse ox is 90%, patient is working on the incentive spirometer, he is pulling [id number] on the today, he's been afebrile, he remains on voriconazole for antibiotic coverage, chest x-ray today shows a left basilar pleural catheter unchanged in position, and extensive subcutaneous emphysema throughout the chest wall and neck, there is no sizable pneumothorax, and there is diffuse infiltrate throughout the right lung, left lower lobe. Today's labs have been reviewed, when blood cell count is 15.8, hemoglobin is 10, sodium is 141, potassium is 3.0, chloride is 99, CO2 is 37, B1 is 27, creatinine 0.82, AST is 209, ALT is 193, alkaline phosphatase is 425, and his liver enzymes are trending up. We will ask infectious disease to see if this could be related to the antibiotics On 09/05/2020 patient seen in follow-up on selective care unit, left-sided Pleurx chest tube catheter remains in place, connected to Pleur-evac, and con tinuous wall suction, there is a intermittent air leak still present, patient still has subcutaneous emphysema involving his upper chest, relatively stable in appearance, ration is on 2 L of oxygen pulse ox is 97%, he's been afebrile, hemodynamic we his been stable, no worsening dyspnea, he is working on incentive spirometer, his left-sided chest tube is putting out very small amount of output. Remains on voriconazole for Aspergillus in the pleural fluid cultures. Clinically stable, status post electrical cardioversion for atrial flutter with RVR. He is on diuretics, he is in -900 mL fluid balance, today's chest x-ray shows stable exam with severe subcutaneous emphysema, stable 2 cm small left basilar pneumothorax, airspace disease throughout the right lung with some improvement compared to 2020, left lower lung patchy airspace disease is unchanged. Today's labs have been reviewed, showing white blood cell, 13.0, hemoglobin is 9.6, electrolytes unremarkable, with the exception of the CO2 of 35, renal profile is unremarkable, liver enzymes show AST of 146 which has increased since yesterday, ALT of 125 slightly increased since yesterday, alkaline phosphatase at 495. This could possibly be related to voriconazole or amiodarone, and we have asked infectious disease service to consider possible dose reduction of voriconazole, and this may be an additive effect together with amiodarone On 09/06/2020 patient seen in follow-up on selective care unit, he is resting in the recliner, on 2 L of oxygen his pulse ox of 95-97%, pretty comfortable, no acute distress, afebrile, hemodynamically stable, he is currently in sinus mechanism, amiodarone has been discontinued in view of possible additive effect and worsening LFTs in addition to voriconazole. Patient has had no fever or chills, left sided thorax catheter remains in place, to Pleur-evac and wall suction, with slight intermittent air leak which seems to be lessening with each day. Still has stable subcutaneous emphysema involving his bilateral upper chest. Today's labs have been reviewed, showing white blood cell count of 13, hemoglobin is 9.6, electrolytes are unremarkable with the exception of bicarbonate concentration which is currently at 35, improving, renal profile is within normal limits, today's LFTs are trending up, AST up to 146, ALT is 125, and alkaline phosphatase is 495. Objective - Vital Signs Vital signs: Vital Signs Temp 98.6 F 09/06/20 08:00 Pulse 93 09/06/20 12:00 Resp 19 09/06/20 04:00 BP 90/53 09/06/20 12:00 Pulse Ox 97 09/06/20 12:00 Intake & Output 09/05/20 09/06/20 09/06/20 18:59 06:59 18:59 Intake Total 1070 472 Output Total 770 780 400 Balance 300 -780 72 Weight 101.9 kg 101.6 kg Intake: Oral 1070 472 Output: Chest Tube Drainage 10 100 Left Mid-Axillary Chest 10 100 Drainage 160 Left Chest 160 Urine 600 680 400 Other: Voiding Method Toilet Urinal - Exam GENERAL EXAM: Alert, pleasant, 60-year-old male patient, on 2 L of oxygen with a pulse ox of 94%, currently sitting up in chair at the bedside, comfortable in no apparent distress. HEAD: Normocephalic/atraumatic. EENT: PERRLA, EOMI, nonicteric. Moist mucous membranes, no neck masses, no JVD, no stridor. CHEST: No chest wall deformity. Symmetrical expansion. Left chest Pleurx catheter connected to Pleur-evac, to wall suction, with intermittent air leak present, serosanguineous output in the Pleur-evac. There is extensive subcutaneous emphysema in his anterior bilateral upper chest, extending into his neck and shoulders LUNGS: Bibasilar rhonchi, and a few scattered wheezes CVS: Regular rate and rhythm, normal S1 and S2, no gallops, no murmurs, no rubs ABDOMEN: Soft, nontender. No hepatosplenomegaly, normal bowel sounds, no guarding or rigidity. EXTREMITIES: No clubbing, 1+ lower extremity edema, no cyanosis, 2+ pulses and upper and lower extremities. MUSCULOSKELETAL: Muscle strength and tone normal. SPINE: No scoliosis or deformity SKIN: No rashes CENTRAL NERVOUS SYSTEM: Alert and oriented -3. No focal deficits, tone is normal in all 4 extremities. PSYCHIATRIC: Alert and oriented -3. Appropriate affect. Intact judgment and insight. - Labs CBC & Chem 7: 09/05/20 07:40 09/05/20 07:40 Labs: Microbiology - Last 24 Hours (Table) 08/22/20 11:30 Acid Fast Bacilli Smear - Final Pleural Fluid Acid Fast Bacilli Culture - Preliminary Assessment and Plan Plan: Assessment: #1. Acute hypoxic respiratory failure related to sepsis, septic shock, related to pneumonia, with chronic loculated effusions, rule out possibility of empyema. COVID 19 was ruled out per PCR. Pleural fluid culture positive for Aspergillus fumigators, patient is on voriconazole, ideally patient would benefit from surgical intervention including thoracoscopy/decortication however this could be an extensive surgery for him in patient had the left chest Pleurx catheter inserted for drainage Patient is post insertion of a left-sided Pleurx catheter and instillation of amphotericin B into the pleural space, the left lung was trapped with fungal empyema, patient has intermittent air leak, and there is a subcutaneous emphysema involving neck, upper chest #2. Bilateral hydropneumothorax, rule out possibility of empyema, status post ultrasound-guided left-sided thoracentesis on 08/22/2020 would removal of 45 mL of cloudy white fluid, which was exudative in nature, pleural fluid culture only showing Aspergillus, antibiotic coverage is with cefepime and vancomycin, it service is following, CT surgery has no plans for surgical intervention at this time. on 08/31/2020 patient is on voriconazole for evidence of Aspergillus fumigators in the pleural fluid #3. Recent admission to the hospital for hypotension, dehydration related to nausea vomiting diarrhea, acute kidney injury #4. Recurrent pulmonary infections, with history of streptococcal pneumonia and empyema requiring chest tube placement in January 2020 #5. Chronic loculated pneumothoraces, posterior, with air-fluid level seen on the CT imaging of the chest, the possibility of trapped lung, chronic scarring and possibility of empyema needs to be ruled out #6. Elevated d-dimer with no CT evidence for pulmonary embolism #7. History of rheumatoid arthritis and rheumatoid lung disease on Arava #8. Recent history of acute kidney injury, and admission lab work today shows improvement in his renal function #9. Hypertension #10. Hypothyroidism #11. Previous history of foot infections requiring antibiotics #12. Previous history of DVT #13. Transaminitis possibly related to antifungal antibiotics, will obtain follow-up labs Plan: Continue current medical treatment, still has a slight air leak which is decreasing every day, continue with continuous wall suction until resolution of the air leak. Encourage deep breathing and coughing, amiodarone has been discontinued, patient is maintaining in sinus mechanism, continues on voriconazole for Aspergillus pneumonia. We'll continue monitoring LFTs, we'll continue to follow along with CT surgery and ID service. I performed a history & physical examination of the patient and discussed their management with my nurse practitioner, Марина Thompson. I reviewed the nurse practitioner's note and agree with the documented findings and plan of care. Paz ng sounds are positive for diminished breath sounds. The findings and the impression was discussed with the patient. I attest to the documentation by the nurse practitioner. Time with Patient: Less than 30
--- NOTE | 2020-09-06 16:54 | P.PN ---
Subjective Progress Note Date: 09/05/20 This is a 60-year-old male patient requesting my service with past medical history of rheumatoid arthritis on Arava that was diagnosed when he was 37 year old initially was started on Methotrexate that he could not tolerate then placed on Embrel but he developed side effects and finally was tried on Humira injection but he developed neurologic sided effects and was hospitaized at [facility] for quiet some time, rheumatoid lung disease, previous history of loculated empyema with chest tube placement in January 2020, hypertension, hypothyroidism, history of DVT, remote history of tobacco use and dependence, was recently hospitalized at [facility] after he was admitted for an acute kidney injury with significant metabolic acidosis associated with the elevated creatinine and elevated BUN and hypotension at that time he was seen and evaluated by pulmonary and critical care medicine, he had a central line placed and at that time, he was placed on Levophed drip he was p laced on IV anabiotic as well but the patient recovered very fast and he had an echocardiogram that showed normal LV function and segmental hypokinesia, he was supposed to follow-up with Dr. 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 learning specialist today and he had an episode when he was dizzy lightheaded and an episode of vomiting as well and he was sent to the emergency department for evaluation had a computed tomography of the chest as well as abdomen and pelvis that showed a thick walled pleural cavities posteriorly in the lower lungs with left-sided air-fluid level that has diminished in size from the prior computed tomography scan when he was in the hospital a few weeks back there is also associated compressive atelectasis and chronic consultation with multifocal areas of reticular nodular opacity in the upper lungs with a slight nodularity of the left upper lobe again this area of focal consultation has improved from the previous study that was done few weeks ago, patient was started on IV antibiotic with vancomycin and Zosyn as well as IV fluid, he was seen in consultation by pulmonary critical care in the emergency department as the patient blood pressure dropped and that he'll be transferred to the intensive care unit at this point in time I had long conve rsation with the patient and his at the bedside and the patient may need to have a chest tube placed for his possible right empyema, he did receive 3 L normal saline in the ER, and his blood pressure is marginal he may need to go on pressors if not recovered. 08/20:patient is sitting up in chair feeling about the same , complains of increased pain in the righ elbow, was seen earlier by pulmonary and the plan was to go for US-Guided left thoracenthesis due to to loculated left pleural effu unique and possible empyema, may need VATS, he denies any chest pain or shortness of breath, no abdominal pain nausea, vomiting or diarrhea, still have diarrhea negative for C.Diff, he seems to have accept to stay in the hospital this time as long as he needed to. 08/21: Patient sitting up in the recliner complaining of increased pain in his joints due to his rheumatoid arthritis with increased synovitis in both wrists both elbows and both shoulders he was started on hydrocortisone 100 mg IV push every 8 hours, to try to help with his blood pressure as well as his phonation, he is maintained on Daphne 5/325 mg one tablet orally every 6 hours as needed for pain control, patient denies any chest pain is less short of breath, he continues to have increased coughing with yellow from production of green phlegm production, he had no fever or chills at this time he continues to be on Levothroid drip, patient has appeared to have increased swelling in both lower extremities as well as both ankles, he is maintained on IV antibiotic in the form of vancomycin as well as cefepime, infectious disease is following, patient is scheduled to go for ultrasound guidance thoracentesis of the left loculated pleural effusion tomorrow morning. 08/22: Patient remains in the intensive care unit. He has been afebrile, heart rate 100, blood pressure 95/62, pulse ox 97% on 2 L nasal cannula. Hemoglobin 8.8 and leukocytosis resolved. Creatinine 0.76, electrolytes normal. Sputum culture is positive for Aspergillus species. Blood culture showing no growth. Patient underwent diagnostic thoracentesis with interventional radiology today with removal of 45 mL of cloudy white fluid. Chest x-ray reveals no complications following left thoracentesis. Fluid has been sent for culture and cytology. Consult in place for cardiothoracic surgery to evaluate for VATS with decortication. 08/23: Patient remains in the intensive care unit. He did receive 1 dose of IV Lasix this morning ordered by nephrology. He is followed by cardiothoracic surgery was no plan for surgical intervention. ID has recommended cefepime and vancomycin for now. Expect antifungal agent ended as well. Patient denies any significant shortness of breath. He is comfortable sitting in a chair. Patient is having minimal cough and minimal sputum. Patient is achieving 1000 ml on incentive spirometry. Culture and cytology reports remain pending from thoracentesis. Repeat chest x-ray reveals patchy peripheral lung with lung zone and lower lung zone infiltrates persist unchanged. Patient has been afebrile, heart rate in the 90s and low 100s, pulse ox 91 on room air. 23: Repeat chest x-ray reveals left-sided basilar loculated pneumothorax, stable. Bilateral lung infiltrates. Correlate for pneumonia and atelectasis. WBC 9, hemoglobin 9.5. Potassium 3.4 and will be replaced. Patient is continued on cefepime and vancomycin per Dr. Blanton's recommendations. Patient in reaching 1000 on incentive spirometry. Patient is scheduled to see Dr. Dubois tomorrow. Cefepime and vancomycin had been discontinued by Dr. Blanton and started on Voriconazole. 08/25: A-Team was called this morning regarding elevated heart rate, EKG was atrial flutter with RVR and 150 bpm and patient was transferred to ICU as an overflow for the cardiac stepdown unit, started on Cardizem drip and consult with cardiology. Heart rate was improved with Cardizem and patient also received amiodarone bolus 300 mg. Patient denies any worsening shortness of breath, cough or congestion. No chest pain or palpitations. Patient is resting comfortably. 09, hemoglobin 8.8, potassium 3.4 replaced. Creatinine 0.89. 08/26: Patient remains in the intensive care unit. He continues to be in atrial flutter with 21 conduction rate. He is on heparin drip and amiodarone. He is currently in and out of atrial flutter with RVR. Cardiology is following closely and may consider cardioversion tomorrow. WBC 16.6, hgb 9.8, plt 374, sodium 143, potassium 3.9, creatinine 0.88. He has been afebrile, heart rate has been at times marginal, pulse ox 90% on room air. Patient denies having any fever or chills, no shortness of breath, no cough. No chest pain. Patient is followed by cardiothoracic surgery and plan is for left-sided PleurX catheter placement which is scheduled for Saturday. 08/29: Patient is scheduled for PleurX catheter placement this afternoon. Cardiology may schedule him for cardioversion. Dr. Woodall is planning on oral antimicrobials at the time of discharge. Patient is bringing up quite a bit of sputum. He has been afebrile, heart rate 68, blood pressure 100/67, pulse ox 93% on 1 L nasal cannula. WBC 21, hemoglobin 9.6, platelet count 325. Potassium 3, BUN 28 creatinine 0.8. 08/30: Patient is status post PleurX catheter. Patient has been afebrile, heart rate 106, blood pressure 85/53. Pulse ox 97% on 2 L. Patient is known to be back in atrial fibrillation at rate of 122. He did go for cardioversion today for atrial flutter. Patient states he has a little pain in the side for which she is taking Daphne. Not bad today. Patient has subcutaneous edema to bilateral chest. He denies having any headache. BUN 27 creatinine 0.79. Blood sugar 90-126. 08/31: Patient denies chest pain or shortness of breath. He is reaching 1250 on IS. PleurX draining small amount of sanguinous fluid. Patient is in atrial flutter. Dr. Prieto is planning for EP study and ablation on and plan to continue eliquis. Patient is also on Lopressor 25 mg 3 times daily. Patient has been afebrile, heart rate 97, blood pressure 106/65, pulse ox 98% on room air. Blood sugars running between 112 and 67. Patient is covered with Voriconazole. Lac-Hydrin added for bilateral legs. 09/01: Patient is status post successful atrial flutter ablation with Dr. Prieto. Cardiology has recommended amlodipine 100 mg twice daily for 1 month. 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 Metoprolol was decreased to 25 mg twice daily. Patient is on eliquis 5 mg twice daily. Patient has been afebrile, heart rate 64, blood pressure 121/77. Potassium 2.3 and replaced. Repeat level will be obtained this evening. Pleurx catheter remains in place connected to Pleur-evac with intermittent air leak. He has minimal output. Tyrone martell is continued on Advair, so for Aspergillus fungal infection managed by Dr. Blanton. He is planning on oral antimicrobial at the time of discharge. 09/02: Patient is resting in recliner. Patient's is at bedside. Patient states he walked in hallway and felt well but did have shortness of breath with activity. He continues to have subcutaneous emphysema. He continues to have air leak. WBC is 15.8, hemoglobin 10, platelet count 293. Potassium is 3 and will be replaced. BUN 27 creatinine 0.82. Patient has been afebrile, heart rate 79, blood pressure 114/66, pulse ox 90% on room air. Chest x-ray is stable findings. 09/03: Patient is sitting up in his recliner he is quite depressed because he stated the hospital for almost 2 weeks, he wanted to go home, he continues to have some leak in the chest tube on the left side, we will maintain the patient on voriconazole, and he has to take that for the next 4 weeks and possibly longer would leave that up to the discretion of infectious disease, I spoke with his as well as himself about the prognosis and the patient may need to send to the hospital until Saturday , meanwhile continue with physical therapy evaluation, anticipating home health care with physical therapy at home. 09/04: Patient is sitting in the recliner does not appear in acute distress, he continues to have the chest tube in the left side with minimal leakage, hopefully it will be removed in the next 24 hours and can be discharged home, he is maintained on voriconazole for his Aspergillus fumigate as, continue with increased activity, continue to monitor the patient very closely, anticipate discharge in 1-2 days. 09/05: Patient remains with Pleurx catheter to wall suction with intermittent leak. He also continues to have subcutaneous emphysema not worsening. Patient is very anxious to leave the hospital and go home. Discussed dosing of Amiodarone with Dr. Prieto. Amiodarone will be discontinued at the time of discharge. Patient is currently on Lasix 40 IVP daily. Lower extremity edema is improving. WBC 13.0, hemoglobin 9.6, electrolytes unremarkable, with the exception of the CO2 of 35, renal profile is unremarkable, liver enzymes show AST 146, alkaline phosphatase 495. Objective - Vital Signs Vital signs: Vital Signs Temp 98.5 F 09/05/20 08:00 Pulse 98 09/05/20 08:00 Resp 17 09/05/20 04:00 BP 99/57 09/05/20 08:00 Pulse Ox 95 09/05/20 08:00 Intake & Output 09/04/20 09/05/20 09/05/20 18:59 06:59 18:59 Intake Total 1509 30 590 Output Total 1540 900 20 Balance -31 -870 570 Weight 101.9 kg Intake: IV 20 30 Invasive Line 6 20 30 Oral 1489 590 Output: Chest Tube Drainage 40 10 10 Left Mid-Axillary Chest 40 10 10 Drainage 10 10 Left Chest 10 10 Urine 1500 880 Other: Voiding Method Toilet Toilet Urinal Urinal # Voids 1 - Exam Review of Systems Constitutional: Reports anorexia, Reports chronic pain, Reports fatigue, denies weakness, Reports weight loss Eyes: denies blurred vision, denies bulging eye, denies decreased vision, denies diplopia Ears, nose, mouth and throat: Denies dysphagia, Denies sore throat Respiratory: Reports dyspnea, with exertion Reports respiratory infections, Denies congestion, Denies cough with sputum, Denies home oxygen, Denies sleep apnea, Denies snoring, Denies wheezing Cardiac: No chest pain. No palpitations. No lower extremity edema. No syncopal episodes. Gastrointestinal: Reports bloating, Reports change in bowel habits, Reports diarrhea, Reports early satiety, Reports indigestion, Reports loss of appetite, Reports nausea, Reports vomiting, Denies abdominal pain, Denies belching, Denies heartburn, Denies hematemesis, Denies hematochezia, Denies melena Genitourinary: Denies dysuria, Denies nocturia Musculoskeletal: Denies myalgias Musculoskeletal: absent: ankle pain, ankle stiffness, ankle swelling, elbow pain, elbow stiffness, elbow swelling, foot pain, foot stiffness, foot swelling, hand pain, hand stiffness, hand swelling, hip pain, hip stiffness, hip swelling, knee pain, knee stiffness, knee swelling, shoulder pain, shoulder stiffness, shoulder swelling, wrist pain, wrist stiffness, wrist swelling Integumentary: Denies pruritus, Denies rash Neurological: Denies numbness, Denies weakness Psychiatric: Denies anxiety, Denies depression Endocrine: Denies fatigue, Denies weight change Physical examination: General: This is a 60-year-old male. Patient is resting in a recliner and appears to be comfortable. HEENT: head ia atraumatic normocephalic, Pupils were equal round reactive to light and accommodations , extra ocular muscle movement were intact, mucous membranes of the mouth are somewhat dry. Neck: supple no JVP. Chest: decreased breath sounds at he bases no expiratory wheezes no chest wall tendernes or intercostal retractions. PleurX cath in place. Positive subcutaneous emphysema. Heart: first heart sound is depressed, second heart sound is normal tachycardic and irregular there is BIRD 2/6 located at the left sternal border. Abdomen: soft, mild tenderness to the left lower quadrant positive bowel sounds, no guarding or rebound tenderness, no hepatosplenomegaly. Extremities: there is 1+ edema or calf tenderness DP+ 2 Bilaterally, there is what appears to be a charcot joint in the right foot form arch collapse. Neurologic examination: patient is awake , alert and oriented X 3 CN II-XII are grossly intact, muscle power 4/5 in bilateral upper and lower extremities, deep tendon reflexes were normal. - Labs CBC & Chem 7: 09/05/20 07:40 09/05/20 07:40 Labs: Abnormal Lab Results - Last 24 Hours (Table) 09/05/20 09/05/20 Range/Units 07:40 07:40 WBC 13.0 H (3.8-10.6) k/uL RBC 3.59 L (4.30-5.90) m/uL Hgb 9.6 L (13.0-17.5) gm/dL Hct 32.3 L (39.0-53.0) % MCHC 29.6 L (31.0-37.0) g/dL RDW 19.4 H (11.5-15.5) % Carbon Dioxide 35 H (22-30) mmol/L Total Bilirubin 1.4 H (0.2-1.3) mg/dL AST 146 H (17-59) U/L ALT 125 H (4-49) U/L Alkaline Phosphatase 495 H (38-126) U/L Total Protein 5.7 L (6.3-8.2) g/dL Albumin 2.4 L (3.5-5.0) g/dL Assessment and Plan Assessment: 1. Acute hypoxemic respiratory failure secondary to loculated left-sided pleural effusion and fungal empyema with what appears to be recurrent pneumonia. Continue Voriconazole 200 mg every 12 hours IV piggyback per Dr. Blanton with plan for oral at the time of discharge. Patient will be off amiodarone at the time of discharge. 2. Lactic acidosis. Resolved, repeat lactic acid is back to normal. 3. Sepsis with septic shock and was stable. Patient has been weaned off Levothroid drip. 4. Acute kidney injury due to poor oral intake of fluid as well as hypotension with acute tubular necrosis. Patient is on IV fluid, continue to monitor the patient CMP continue to monitor urine output. Nephrology is following. 5. Leukocytosis secondary to severe sepsis secondary to empyema. Patient is off antibiotic. 6. Persistent atrial flutter with RVR. Status post cardioversion, converted back. Status post ablation completed by Dr. Prieto. Patient to continue eliquis. Continued on amiodarone 100 mg daily until discharge and then discontinue. Cardiology consult appreciated. 7. Rheumatoid arthritis and rheumatoid lung. Arava and Xeljanz had been on hold since April. 8. History of empyema with Streptococcus requiring chest tube. 9. Hypertension and hypertensive cardiovascular disease. Lasix 40 mg IVP daily. 10. Hypothyroidism . we will continue with Synthroid 150 mcg orally daily. 11. DVT prophylaxis. Eliquis and SCDs. 12. GI prophylaxis. we will continue with Protonix 40 mg oral daily. Discharge plan: home mid week Impression and plan of care have been directed as dictated by the signing physician. Yumiko Brown nurse practitioner acting as scribe for signing physician.
[2020-09-06] MEDS: ASPIRIN 81 MG PO SCH (19:56)
[2020-09-06] MEDS: CHOLECALCIFEROL 25 MCG (1000 IU) TABLET PO SCH (19:56)
[2020-09-06] MEDS: ASCORBIC ACID 500 MG TAB PO SCH (19:56)
[2020-09-06] MEDS ORDERED: VORICONAZOLE IVPB ONE ×2 (21:00)
[2020-09-06] MEDS ORDERED: WATER IVPB ONE ×2 (21:00)
[2020-09-06] MEDS ORDERED: DEXTROSE 5% IVPB ONE ×2 (21:00)
--- NOTE | 2020-09-06 22:30 | PN ---
PROGRESS NOTE DATE OF SERVICE: 09/06/2020 REASON FOR FOLLOWUP: Aspergillus pneumonia and empyema. INTERVAL HISTORY: The patient is currently afebrile. The patient is breathing comfortably. The patient denies having any chest pain or shortness of breath or cough. No abdominal pain or diarrhea. PHYSICAL EXAMINATION: Blood pressure is 93/49 with pulse of 93, temperature 98.6. He is 96% on 2 L nasal cannula. General description is a middle-aged male lying in bed in no distress. RESPIRATORY SYSTEM: Unlabored breathing with decreased breath sounds at the base. No wheeze. HEART: S1, S2. Regular rate and rhythm. ABDOMEN: Soft. No tenderness. LABS: Hemoglobin 9.6, white count 13,000, BUN of 17, creatinine 0.70. DIAGNOSTIC IMPRESSION AND PLAN: Patient with aspergillus pneumonia and empyema in this patient who is status post PleurX catheter placement, now with evidence of leak. Waiting for leak to resolve and removal of the chest tube before the patient goes home. He is covered with Vfend. That will be transitioned to oral on discharge. Continue with supportive care. MMODL / IJN: [id number] /
[2020-09-07] MEDS: LEVOTHYROXINE 75 MCG TAB PO SCH (06:34)
[2020-09-07] MEDS: PANTOPRAZOLE 40 MG TABLET PO SCH (06:34)
--- NOTE | 2020-09-07 07:51 | P.PN ---
Subjective Progress Note Date: 09/06/20 This is a 60-year-old male patient requesting my service with past medical history of rheumatoid arthritis on Arava that was diagnosed when he was 37 year old initially was started on Methotrexate that he could not tolerate then placed on Embrel but he developed side effects and finally was tried on Humira injection but he developed neurologic sided effects and was hospitaized at [facility] for quiet some time, rheumatoid lung disease, previous history of loculated empyema with chest tube placement in January 2020, hypertension, hypothyroidism, history of DVT, remote history of tobacco use and dependence, was recently hospitalized at [facility] after he was admitted for an acute kidney injury with significant metabolic acidosis associated with the elevated creatinine and elevated BUN and hypotension at that time he was seen and evaluated by pulmonary and critical care medicine, he had a central line placed and at that time, he was placed on Levophed drip he was p laced on IV anabiotic as well but the patient recovered very fast and he had an echocardiogram that showed normal LV function and segmental hypokinesia, he was supposed to follow-up with Dr. 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 wrapper layer today and he had an episode when he was dizzy lightheaded and an episode of vomiting as well and he was sent to the emergency department for evaluation had a computed tomography of the chest as well as abdomen and pelvis that showed a thick walled pleural cavities posteriorly in the lower lungs with left-sided air-fluid level that has diminished in size from the prior computed tomography scan when he was in the hospital a few weeks back there is also associated compressive atelectasis and chronic consultation with multifocal areas of reticular nodular opacity in the upper lungs with a slight nodularity of the left upper lobe again this area of focal consultation has improved from the previous study that was done few weeks ago, patient was started on IV antibiotic with vancomycin and Zosyn as well as IV fluid, he was seen in consultation by pulmonary critical care in the emergency department as the patient blood pressure dropped and that he'll be transferred to the intensive care unit at this point in time I had long conve rsation with the patient and his at the bedside and the patient may need to have a chest tube placed for his possible right empyema, he did receive 3 L normal saline in the ER, and his blood pressure is marginal he may need to go on pressors if not recovered. 08/20:patient is sitting up in chair feeling about the same , complains of increased pain in the righ elbow, was seen earlier by pulmonary and the plan was to go for US-Guided left thoracenthesis due to to loculated left pleural effu unique and possible empyema, may need VATS, he denies any chest pain or shortness of breath, no abdominal pain nausea, vomiting or diarrhea, still have diarrhea negative for C.Diff, he seems to have accept to stay in the hospital this time as long as he needed to. 08/21: Patient sitting up in the recliner complaining of increased pain in his joints due to his rheumatoid arthritis with increased synovitis in both wrists both elbows and both shoulders he was started on hydrocortisone 100 mg IV push every 8 hours, to try to help with his blood pressure as well as his phonation, he is maintained on [place] 5/325 mg one tablet orally every 6 hours as needed for pain control, patient denies any chest pain is less short of breath, he continues to have increased coughing with yellow from production of green phlegm production, he had no fever or chills at this time he continues to be on Levothroid drip, patient has appeared to have increased swelling in both lower extremities as well as both ankles, he is maintained on IV antibiotic in the form of vancomycin as well as cefepime, infectious disease is following, patient is scheduled to go for ultrasound guidance thoracentesis of the left loculated pleural effusion tomorrow morning. 08/22: Patient remains in the intensive care unit. He has been afebrile, heart rate 100, blood pressure 95/62, pulse ox 97% on 2 L nasal cannula. Hemoglobin 8.8 and leukocytosis resolved. Creatinine 0.76, electrolytes normal. Sputum culture is positive for Aspergillus species. Blood culture showing no growth. Patient underwent diagnostic thoracentesis with interventional radiology today with removal of 45 mL of cloudy white fluid. Chest x-ray reveals no complications following left thoracentesis. Fluid has been sent for culture and cytology. Consult in place for cardiothoracic surgery to evaluate for VATS with decortication. 08/23: Patient remains in the intensive care unit. He did receive 1 dose of IV Lasix this morning ordered by nephrology. He is followed by cardiothoracic surgery was no plan for surgical intervention. ID has recommended cefepime and vancomycin for now. Expect antifungal agent ended as well. Patient denies any significant shortness of breath. He is comfortable sitting in a chair. Patient is having minimal cough and minimal sputum. Patient is achieving 1000 ml on incentive spirometry. Culture and cytology reports remain pending from thoracentesis. Repeat chest x-ray reveals patchy peripheral lung with lung zone and lower lung zone infiltrates persist unchanged. Patient has been afebrile, heart rate in the 90s and low 100s, pulse ox 91 on room air. 23: Repeat chest x-ray reveals left-sided basilar loculated pneumothorax, stable. Bilateral lung infiltrates. Correlate for pneumonia and atelectasis. WBC 9, hemoglobin 9.5. Potassium 3.4 and will be replaced. Patient is continued on cefepime and vancomycin per Dr. Blanton's recommendations. Patient in reaching 1000 on incentive spirometry. Patient is scheduled to see Dr. Dubois tomorrow. Cefepime and vancomycin had been discontinued by Dr. Blanton and started on Voriconazole. 08/25: A-Team was called this morning regarding elevated heart rate, EKG was atrial flutter with RVR and 150 bpm and patient was transferred to ICU as an overflow for the cardiac stepdown unit, started on Cardizem drip and consult with cardiology. Heart rate was improved with Cardizem and patient also received amiodarone bolus 300 mg. Patient denies any worsening shortness of breath, cough or congestion. No chest pain or palpitations. Patient is resting comfortably. 09, hemoglobin 8.8, potassium 3.4 replaced. Creatinine 0.89. 08/26: Patient remains in the intensive care unit. He continues to be in atrial flutter with 21 conduction rate. He is on heparin drip and amiodarone. He is currently in and out of atrial flutter with RVR. Cardiology is following closely and may consider cardioversion tomorrow. WBC 16.6, hgb 9.8, plt 374, sodium 143, potassium 3.9, creatinine 0.88. He has been afebrile, heart rate has been at times marginal, pulse ox 90% on room air. Patient denies having any fever or chills, no shortness of breath, no cough. No chest pain. Patient is followed by cardiothoracic surgery and plan is for left-sided PleurX catheter placement which is scheduled for Saturday. 08/29: Patient is scheduled for PleurX catheter placement this afternoon. Cardiology may schedule him for cardioversion. Dr. Woodall is planning on oral antimicrobials at the time of discharge. Patient is bringing up quite a bit of sputum. He has been afebrile, heart rate 68, blood pressure 100/67, pulse ox 93% on 1 L nasal cannula. WBC 21, hemoglobin 9.6, platelet count 325. Potassium 3, BUN 28 creatinine 0.8. 08/30: Patient is status post PleurX catheter. Patient has been afebrile, heart rate 106, blood pressure 85/53. Pulse ox 97% on 2 L. Patient is known to be back in atrial fibrillation at rate of 122. He did go for cardioversion today for atrial flutter. Patient states he has a little pain in the side for which she is taking [place]. Not bad today. Patient has subcutaneous edema to bilateral chest. He denies having any headache. BUN 27 creatinine 0.79. Blood sugar 90-126. 08/31: Patient denies chest pain or shortness of breath. He is reaching 1250 on IS. PleurX draining small amount of sanguinous fluid. Patient is in atrial flutter. Dr. Prieto is planning for EP study and ablation on and plan to continue eliquis. Patient is also on Lopressor 25 mg 3 times daily. Patient has been afebrile, heart rate 97, blood pressure 106/65, pulse ox 98% on room air. Blood sugars running between 112 and 67. Patient is covered with Voriconazole. Lac-Hydrin added for bilateral legs. 09/01: Patient is status post successful atrial flutter ablation with Dr. Prieto. Cardiology has recommended amlodipine 100 mg twice daily for 1 month. brick and blocker aid labor is a sinus rhythm with PACs. Metoprolol was decreased to 25 mg twice daily. Patient is on eliquis 5 mg twice daily. Patient has been afebrile, heart rate 64, blood pressure 121/77. Potassium 2.3 and replaced. Repeat level will be obtained this evening. Pleurx catheter remains in place connected to Pleur-evac with intermittent air leak. He has minimal output. Tyrone martell is continued on Advair, so for Aspergillus fungal infection managed by Dr. Blanton. He is planning on oral antimicrobial at the time of discharge. 09/02: Patient is resting in recliner. Patient's is at bedside. Patient states he walked in hallway and felt well but did have shortness of breath with activity. He continues to have subcutaneous emphysema. He continues to have air leak. WBC is 15.8, hemoglobin 10, platelet count 293. Potassium is 3 and will be replaced. BUN 27 creatinine 0.82. Patient has been afebrile, heart rate 79, blood pressure 114/66, pulse ox 90% on room air. Chest x-ray is stable findings. 09/03: Patient is sitting up in his recliner he is quite depressed because he stated the hospital for almost 2 weeks, he wanted to go home, he continues to have some leak in the chest tube on the left side, we will maintain the patient on voriconazole, and he has to take that for the next 4 weeks and possibly longer would leave that up to the discretion of infectious disease, I spoke with his as well as himself about the prognosis and the patient may need to send to the hospital until Saturday , meanwhile continue with physical therapy evaluation, anticipating home health care with physical therapy at home. 09/04: Patient is sitting in the recliner does not appear in acute distress, he continues to have the chest tube in the left side with minimal leakage, hopefully it will be removed in the next 24 hours and can be discharged home, he is maintained on voriconazole for his Aspergillus fumigate as, continue with increased activity, continue to monitor the patient very closely, anticipate discharge in 1-2 days. 09/05: Patient remains with Pleurx catheter to wall suction with intermittent leak. He also continues to have subcutaneous emphysema not worsening. Patient is very anxious to leave the hospital and go home. Discussed dosing of Amiodarone with Dr. Prieto. Amiodarone will be discontinued at the time of discharge. Patient is currently on Lasix 40 IVP daily. Lower extremity edema is improving. WBC 13.0, hemoglobin 9.6, electrolytes unremarkable, with the exception of the CO2 of 35, renal profile is unremarkable, liver enzymes show AST 146, alkaline phosphatase 495. 09/06: The chest x-ray reveals no definite large pneumothorax. Small left apical pneumothorax. Could be considered bilateral peripheral infiltrate in right upper lobe. Patient has been afebrile, heart rate 93, blood pressure 90/54, pulse ox 97% on 2 L nasal cannula. Heart monitor sinus rhythm. Repeat blood work ordered for tomorrow. Pleurx catheter continues to have a slight intermittent air leak. Patient continues to have subcutaneous emphysema without worsening. Objective - Vital Signs Vital signs: Vital Signs Temp 98.6 F 09/06/20 08:00 Pulse 93 09/06/20 12:00 Resp 19 09/06/20 04:00 BP 90/53 09/06/20 12:00 Pulse Ox 97 09/06/20 12:00 Intake & Output 09/05/20 09/06/20 09/06/20 18:59 06:59 18:59 Intake Total 1070 472 Output Total 770 780 400 Balance 300 -780 72 Weight 101.9 kg 101.6 kg Intake: Oral 1070 472 Output: Chest Tube Drainage 10 100 Left Mid-Axillary Chest 10 100 Drainage 160 Left Chest 160 Urine 600 680 400 Other: Voiding Method Toilet Urinal - Exam Review of Systems Constitutional: Reports anorexia, Reports chronic pain, Reports fatigue, denies weakness, Reports weight loss Eyes: denies blurred vision, denies bulging eye, denies decreased vision, denies diplopia Ears, nose, mouth and throat: Denies dysphagia, Denies sore throat Respiratory: Reports dyspnea, with exertion Reports respiratory infections, Denies congestion, Denies cough with sputum, Denies home oxygen, Denies sleep apnea, Denies snoring, Denies wheezing Cardiac: No chest pain. No palpitations. No lower extremity edema. No syncopal episodes. Gastrointestinal: Reports bloating, Reports change in bowel habits, Reports diarrhea, Reports early satiety, Reports indigestion, Reports loss of appetite, Reports nausea, Reports vomiting, Denies abdominal pain, Denies belching, Denies heartburn, Denies hematemesis, Denies hematochezia, Denies melena Genitourinary: Denies dysuria, Denies nocturia Musculoskeletal: Denies myalgias Musculoskeletal: absent: ankle pain, ankle stiffness, ankle swelling, elbow pain, elbow stiffness, elbow swelling, foot pain, foot stiffness, foot swelling, hand pain, hand stiffness, hand swelling, hip pain, hip stiffness, hip swelling, knee pain, knee stiffness, knee swelling, shoulder pain, shoulder stiffness, shoulder swelling, wrist pain, wrist stiffness, wrist swelling Integumentary: Denies pruritus, Denies rash, subcutaneous emphysema Neurological: Denies numbness, Denies weakness Psychiatric: Denies anxiety, Denies depression Endocrine: Denies fatigue, Denies weight change Physical examination: General: This is a 60-year-old male. Patient is resting in a recliner and appears to be comfortable. HEENT: head ia atraumatic normocephalic, Pupils were equal round reactive to light and accommodations , extra ocular muscle movement were intact, mucous membranes of the mouth are somewhat dry. Neck: supple no JVP. Chest: decreased breath sounds at he bases no expiratory wheezes no chest wall tendernes or intercostal retractions. PleurX cath in place. Positive subcutaneous emphysema. Heart: first heart sound is depressed, second heart sound is normal tachycardic and irregular there is BIRD 2/6 located at the left sternal border. Abdomen: soft, mild tenderness to the left lower quadrant positive bowel sounds, no guarding or rebound tenderness, no hepatosplenomegaly. Extremities: there is 1+ edema or calf tenderness DP+ 2 Bilaterally, there is what appears to be a charcot joint in the right foot form arch collapse. Neurologic examination: patient is awake , alert and oriented X 3 CN II-XII are grossly intact, muscle power 4/5 in bilateral upper and lower extremities, deep tendon reflexes were normal. - Labs CBC & Chem 7: 09/05/20 07:40 09/05/20 07:40 Labs: Microbiology - Last 24 Hours (Table) 08/22/20 11:30 Acid Fast Bacilli Smear - Final Pleural Fluid Acid Fast Bacilli Culture - Preliminary Assessment and Plan Assessment: 1. Acute hypoxemic respiratory failure secondary to loculated left-sided pleural effusion and fungal empyema with what appears to be recurrent pneumonia. Continue Voriconazole 200 mg every 12 hours IV piggyback per Dr. Blanton with plan for oral at the time of discharge. Patient will be off amiodarone at the time of discharge. 2. Lactic acidosis. Resolved, repeat lactic acid is back to normal. 3. Sepsis with septic shock and was stable. Patient has been weaned off Levothroid drip. 4. Acute kidney injury due to poor oral intake of fluid as well as hypotension with acute tubular necrosis. Patient is on IV fluid, continue to monitor the patient CMP continue to monitor urine output. Nephrology is following. 5. Leukocytosis secondary to severe sepsis secondary to empyema. Patient is off antibiotic. 6. Persistent atrial flutter with RVR. Status post cardioversion, converted back. Status post ablation completed by Dr. Prieto. Patient to continue eliquis. Continued on amiodarone 100 mg daily until discharge and then discontinue. Cardiology consult appreciated. 7. Rheumatoid arthritis and rheumatoid lung. Arava and Xeljanz had been on hold since April. 8. History of empyema with Streptococcus requiring chest tube. 9. Hypertension and hypertensive cardiovascular disease. Lasix 40 mg IVP daily. 10. Hypothyroidism . we will continue with Synthroid 150 mcg orally daily. 11. Elevated liver function tests. Repeat blood work will be ordered for rashi rrow. 12. DVT prophylaxis. Eliquis and SCDs. 13. GI prophylaxis. we will continue with Protonix 40 mg oral daily. Discharge plan: home end of week Impression and plan of care have been directed as dictated by the signing physician. Yumiko Brown nurse practitioner acting as scribe for signing physician.
[2020-09-07 08:18] LABS: Anisocytosis Slight; Basophils % (A) 0 %; Eosinophils # (A) 0.3 k/uL (0-0.7); Eosinophils % (A) 3 %; HCT 31.5 % (39.0-53.0); HGB 9.3 gm/dL (13.0-17.5); Hypochromasia Marked; Lymphocytes # (A) 1.5 k/uL (1.0-4.8); Lymphocytes % (A) 15 %; MCH 26.8 pg (25.0-35.0); MCHC 29.6 g/dL (31.0-37.0); MCV 90.5 fL (80.0-100.0); Mean Platelet Volume 9.2; Monocytes # (A) 0.7 k/uL (0-1.0); Monocytes % (A) 7 %; Neutrophils # (A) 7.3 k/uL (1.3-7.7); Neutrophils % (A) 74 %; Platelet Count 232 k/uL (150-450); RBC 3.48 m/uL (4.30-5.90); RDW 18.8 % (11.5-15.5); WBC 9.8 k/uL (3.8-10.6)
[2020-09-07 08:21] LABS: ALT 85 U/L (4-49); AST 106 U/L (17-59); African American GFR (CKD) >90 (>60 ml/min/1.73 sqM); Albumin 2.5 g/dL (3.5-5.0); Alkaline Phosphatase 513 U/L (38-126); Anion Gap 4 mmol/L; Blood Urea Nitrogen 14 mg/dL (9-20); Calcium 8.2 mg/dL (8.4-10.2); Carbon Dioxide 36 mmol/L (22-30); Chloride 98 mmol/L (98-107); Glucose 85 mg/dL (74-99); Non-African American GFR(CKD) >90 (>60 ml/min/1.73 sqM); Potassium 3.7 mmol/L (3.5-5.1); Sodium 138 mmol/L (137-145); Total Bilirubin 1.4 mg/dL (0.2-1.3); Total Protein 5.8 g/dL (6.3-8.2)
--- NOTE | 2020-09-07 08:34 | P.PN ---
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 Radius his tory of multiple admissions for pneumonia with empyema on the left and previous bilateral chest tube placement in December 2019 with cultures positive for strep pneumonia, rheumatoid arthritis with rheumatoid lung, hypertension, hypothyroidism, DVT, previous tobacco dependence, family history of lung cancer, and recent hospitalization for hypotension, dehydration, acute kidney injury requiring dialysis POD #16 left-sided thoracentesis by interventional radiology POD #9 left Pleurx catheter placement with irrigation of pleural space and instillation of amphotericin B solution under thoracoscopic guidance Extensive subcutaneous emphysema Persistent atrial flutter with RVR, status post electrical cardioversion, status post radiofrequency ablation The patient is currently sitting up in a recliner on the cardiac stepdown unit in no acute distress. Denies pain, states shortness of breath has continued to improve, appears comfortable. Remains afebrile, currently in sinus rhythm and hemodynamically stable. Left sided Pleurx catheter continues to wall suction, rare air leak seen this morning. Patient is getting very discouraged, would like to go home although does understand our concerns for safety with presence of air leak. States he has been ambulatory in hallway without difficulty Objective - Vital Signs Vital signs: Vital Signs Temp 98.1 F 09/07/20 04:00 Pulse 93 09/07/20 04:00 Resp 16 09/07/20 04:00 BP 96/56 09/07/20 04:00 Pulse Ox 94 L 09/07/20 04:00 Intake & Output 09/06/20 09/07/20 09/07/20 18:59 06:59 18:59 Intake Total 722 Output Total 850 350 Balance -128 -350 Weight 99.7 kg Intake: IV 250 Voriconazole 400 mg In 250 Sodium Chloride 0.9% 250 ml @ 125 mls/hr IVPB Q12HR [facility] Rx#:[id number] Oral 472 Output: Chest Tube Drainage 50 100 Left Mid-Axillary Chest 50 100 Urine 800 250 Other: Voiding Method Toilet Urinal - Constitutional General appearance: Present: cooperative, no acute distress - Respiratory Details: Lungs sounds diminished in the bases bilaterally. Respirations even, nonlabored. Currently on 2 L nasal cannula with oxygen saturation 94%. Able to achieve 750-1000 mL on his incentive spirometry. Strong cough. Left sided Pleurx catheter present to continuous wall suction, 100 mL yellow drainage overnight, 200 mL in the last 24 hours, rare air leak present. Subcutaneous emphysema to both arms, chest and back remains - Cardiovascular Details: S1, S2 present. Regular rate and rhythm, sinus rhythm on telemetry with heart rate in the 90s. Palpable peripheral pulses bilaterally. Bilateral lower extremity edema present. No calf pain or tenderness noted. - Gastrointestinal Gastrointestinal Comment(s): Abdomen soft, nontender, nondistended. Active bowel sounds present 4 quadrants. Tolerating diet. Positive bowel movement 09/02 - Genitourinary Genitourinary Comment(s): Continues to void - Integumentary Integumentary Comment(s): Skin is warm and dry with evidence of good perfusion - Neurologic Neurologic: Present: CNII-XII intact - Musculoskeletal Musculoskeletal: Present: gait normal, strength equal bilaterally - Psychiatric Psychiatric: Present: A&O x's 3, appropriate affect, intact judgment & insight - Allied health notes Allied health notes reviewed: nursing - Labs CBC & Chem 7: 09/07/20 07:40 09/07/20 07:40 Labs: Abnormal Lab Results - Last 24 Hours (Table) 09/07/20 09/07/20 Range/Units 07:40 07:40 RBC 3.48 L (4.30-5.90) m/uL Hgb 9.3 L (13.0-17.5) gm/dL Hct 31.5 L (39.0-53.0) % MCHC 29.6 L (31.0-37.0) g/dL RDW 18.8 H (11.5-15.5) % Carbon Dioxide 36 H (22-30) mmol/L Calcium 8.2 L (8.4-10.2) mg/dL Total Bilirubin 1.4 H (0.2-1.3) mg/dL AST 106 H (17-59) U/L ALT 85 H (4-49) U/L Alkaline Phosphatase 513 H (38-126) U/L Total Protein 5.8 L (6.3-8.2) g/dL Albumin 2.5 L (3.5-5.0) g/dL - Imaging and Cardiology Chest x-ray: image reviewed Assessment and Plan Assessment: 1. 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 Acute hypoxic respiratory failure with sepsis on admission 3. Multiple admissions for pneumonia with empyema on the left and previous bilateral chest tube placement in December 2019 with cultures positive for strep pneumonia 4. Rheumatoid arthritis with rheumatoid lung 5. Hypertension, currently hypotensive, requiring pressors on admission 6. Hypothyroidism 7. History of DVT 8. Previous tobacco dependence 9. Family history of lung cancer 10. Recent hospitalization for hypotension, dehydration, acute kidney injury requiring dialysis 11. Extensive subcutaneous emphysema, common occurrence after lung surgery 12. Hydropneumothorax, expected given patient's history of rheumatoid lung with trapped lung for quite some time 13. Persistent atrial flutter with RVR, status post electrical cardioversion and radiofrequency ablation, currently sinus Plan: 1. Pleurx catheter placed to trial waterseal. Will monitor for worsening of subcutaneous emphysema, respiratory distress, and/or increasing pneumothorax 2. Daily chest x-rays 3. Encourage incentive spirometry. Bronchodilators per pulmonology 4. Amiodarone, Eliquis per cardiology 5. Continue voriconazole per infectious disease recommendations 6. Increase activity as tolerated, ambulate in hallway 7. Management of other comorbidities per primary care service. 8. Teaching done with patient and regarding Pleurx catheter care. Will continue to reinforce while patient is hospitalized 9. More recommendations to follow Time with Patient: Greater than 30
--- NOTE | 2020-09-07 08:34 | XR ---
EXAMINATION TYPE: XR chest 1V portable DATE OF EXAM: 09/07/2020 HISTORY: Shortness of breath. COMPARISON: 09/06/2020 TECHNIQUE: Single view of the chest is submitted. FINDINGS: Extensive subcutaneous emphysema is unchanged. Underlying pleural-parenchymal opacities persists. Lef t basilar pleural catheter is unchanged in position. Overall stable chest. The heart is stable. Hilar and mediastinal structures are within normal limits. Degenerative changes are seen of the dorsal spine. IMPRESSION: 1. Overall stable chest
[2020-09-07] MEDS: IPRATROPIUM-ALBUTEROL 3 ML NEB INHALATION SCH ×3 (08:48→19:50)
[2020-09-07] MEDS: APIXABAN 5 MG TAB PO SCH ×2 (08:52→20:28)
[2020-09-07] MEDS: TRIAMCINOLONE 0.1% CREAM 80 GM TUBE TOPICAL SCH ×2 (08:52→20:32)
[2020-09-07] MEDS: LACTATED RINGERS 1,000 ML IV SCH (08:52)
[2020-09-07] MEDS: AMMONIUM LACTATE 12% LOTION 225 GM BTL TOPICAL SCH ×2 (08:52→20:32)
[2020-09-07] MEDS: METOPROLOL TARTRATE 12.5 MG TAB PO SCH ×2 (08:56→20:31)
[2020-09-07] MEDS: VORICONAZOLE 200 MG TAB PO SCH ×2 (09:51→20:31)
--- NOTE | 2020-09-07 12:56 | P.PN ---
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 Other medical history includes hypertension, hypothyroidism and previous history of DVT. Patient had a recent hospitalization from August 08 through 08/11/2020 hypotension, dehydration re lated to nausea vomiting diarrhea, acute kidney injury. Patient received antibiotics in the form of Zosyn and Levaquin for possibility of pneumonia, he is chest x-ray showed cranial perihilar pulmonary infiltrates with increased interstitial changes at the lung bases and was thought to be related to a combination of rheumatoid lung and chronic scarring. His last CT of the chest was on 07/19/2020 showing chronic changes to lower lungs, persistent irregular thick-walled pleural spaces in the posterior lung bases containing fluid and air with adjacent anterior lung with chronic consolidation or atelectasis. On 08/19/2020 patient came into the emergency department from Dr. GENE Carias's office where he was being seen for a regular follow-up appointments. He was noted to have low pulse ox 70s and was sent in to the emergency department for evaluation. He has been having cough with yellow and sometimes blood-tinged sputum, appears amounts, denies any fever, COVID 19 was found to be negative, chest x-ray showed perihilar and basilar infiltrates without significant change from previous chest x-ray on 08/09/2020. Lab data showed leukocytosis with white blood cell count of 19.1, hemoglobin of 12.1, INR 1.5, sodium is 135, potassium is 3.9, chloride is 102, CO2 is 19, creatinine is 1.32, which has actually improved since his discharge from the hospital on 08/11/2020 when he was at 1.84. Lactic acid was elevated at 3.7, patient was given a total of 2 L in fluid boluses, troponin was negative at less than 0.012. Urinalysis showed no evidence of infection. CT chest showed thick-walled pleural cavities posteriorly in the lower lungs with left-sided air-fluid level with left-sided pleural fluid diminished most recent CT from 07/19/2020. There is associated compressive atelectasis and/or chronic consolidation. Persistent as it is lobe fissure, multifocal areas of reticular nodular opacity in the upper lungs remain present with slight nodularity in the left upper lobe. There is a focal consolidation improved from most recent study with some residual areas of scarring. We will emergency department patient became hypotensive with a blood pressure in the 70s, slightly tachycardic remains in sinus mechanism, he is receiving his third liter bolus, his lactic acid did respond and improved he was started on antibiotics in the form of Zosyn and vancomycin The patient is seen today August 20 2020 in the intensive care unit. He is currently sitting up in a chair at the bedside. Awake and alert in no acute distress. Maintaining O2 saturations in the 90s on 2 L/m per nasal cannula. He did require a small dose of norepinephrine currently on 0.05 mcg/kg/m. He has lactated Ringer's at 100 MLS per hour. He remains on vancomycin and cefepime. Chest x-ray continues to show the left lower lobe effusion. White count 11.7. Hemoglobin 9.7. Sodium 135. Potassium 3.6. Creatinine 1.00. Blood cultures reveal no growth to date. Reevaluated today on 08/21/2020, remains in the ICU, still on norepinephrine at 0.04 mcg/kg/m. On LR at 1 25 mL per hour. On vancomycin and cefepime empirically, blood pressure remains marginal, went ahead and recommended Solu-Cortef 100 mg IV push every 8 hours and hopefully will be able to discontinue norepinephrine today. His IV fluid is cut down to KVO. Given 20 mg of Lasix IV push, and I have recommended that we monitor the patient in the ICU for the next 24 hours. Chest x-ray is basically the same, continues to show ch ronic finding, difficult to exclude underlying pneumonia/empyema. CT of the chest on admission was also reviewed, difficult to rule out underlying empyema. Clinically the patient is feeling better except for generally weak. WBC count is 12.5 hemoglobin is 9.9. Normal renal profile is normal blood cultures are negative so far. Sputum cultures are also negative so far. On 08/22/2020 patient seen in follow-up in the intensive care unit, he is awake and alert, oriented 3, sitting up in the recliner, currently on 2 L of oxygen his pulse ox is 95-100%, his been afebrile, hemodynamically he is stable, he is not on any vasopressor support. His lactate Ringer's running at 20 ML per hour, antibiotics include cefepime and vancomycin, blood pressure has been stable, so far blood and sputum cultures are negative, he denies chest pain, his breathing is comfortable. Today's labs have been reviewed, showing white blood cell count trending down, 10.2 today, hemoglobin is 8.8, electrolytes and renal profile are unremarkable. Serum cortisol level came back at 3, patient continues on stress doses of hydrocortisone 100 mg every 8 hours. Patient has not been stable, we'll consult interventional radiology for ultrasound-guided left thoracentesis On 08/23/2020 patient seen in follow-up in the intensive care unit, he is calm and comfortable, awake and alert, sitting up in the recliner, currently on room air with a pulse ox of 93-94%, his been afebrile, hemodynamically he is been stable, he is on IV LR at 20 ML per hour, no other drips. He is on cefepime and vancomycin for antibiotic coverage, yesterday he underwent left thoracentesis with removal of 43 mL of pleural fluid which was sent for cultures. Tolerated procedure well. His pleural fluid analysis revealed total fluid protein of 1.3 g, and fluid LDH of greater than 4500 consistent with exudative fluid. His microbiology data has been reviewed showing Aspergillus fumigate is in the sputum, his pleural fluid cultures are pending at this time, the cultures have shown no growth, hemodynamically has been stable, he is breathing easier, he still has cough mostly in the morning and the amount of secretions his bringing up is decreasing in amount. Lung sounds revealed a few scattered wheezes, and a few rhonchi at bilateral bases. Is tolerating oral intake. No abdominal pain, no nausea or vomiting, today's labs have been reviewed, white blood cell count is 11.2, hemoglobin is 9.1, sodium is 137, potassium is 4.0, chloride is 109, BUN is 15, creatinine 0.80. No acute events overnight. He is working on incentive spirometer, he is achieving 1000 today On 08/24/2020 patient seen in follow-up on medical surgical floor. He is awake and alert, in no acute distress, breathing comfortably, denies any chest pain, room air pulse ox is 94%, no fever or chills, today's chest x-ray shows left basilar loculated pneumothorax, stable in appearance, bilateral lung infiltrates. His pleural fluid cultures so far showing Aspergillus species, as does his sputum culture. Blood culture show no growth. The cervix is follow ing, current antibiotic coverage includes cefepime, vancomycin has been discontinued, she received 1 dose of IV Lasix per nephrology. He has produced 2500 in urine output, and he is in -1.6 L over the last 24 hours, however he still has significant lower extremity edema. The patient is seen today 08/25/2020 in follow-up in the intensive care unit. He was transferred here earlier this morning after developing atrial fibrillation/flutter with a rapid ventricular response. He was initiated on C ardizem at 5 mg per hour. He has 0.9 normal saline at 20 ML's per hour. He is currently awake and alert in no acute distress. No worsening shortness of breath, cough or congestion. No chest pain or palpitations. He sitting up in a chair at the bedside. Maintaining O2 saturations in the 90s on 2 L/m per nasal cannula. Chest x-ray does reveal loculated posterior basilar pneumothoraces, stable from previous exam. There is diffuse increased lung markings. Correlate for pneumonia and atelectasis. Pleural fluid cultures is positive for Aspergillus species. White count 10.9. Hemoglobin 8.8. Sodium 139. Potassium 3.4. Creatinine 0.89. He remains on bronchodilators, IV diuretics, IV Solu- Cortef. Continued on voriconazole. The patient is seen today 08/27/2020 in follow-up on the selective care unit. He is currently sitting up in a recliner at the bedside. Awake and alert in no acute distress. He is currently on room air. LR at 20 miles per hour. Heparin drip per weight base protocol. White count 19.0. Hemoglobin 9.1. Sodium 142. Potassium 3.6. Creatinine 0.81. He remains on voriconazole. The patient is seen today 08/28/2020 in follow-up on the selective care unit. He is currently sitting up in a chair at the bedside. No worsening shortness of breath, cough or congestion. Chest x-ray reveals bilateral airspace infiltrates right greater than left without significant improvement. Sputum and pleural fluid cultures were both positive for Aspergillus fumigatus. He remains on voriconazole. White count 18.5. Hemoglobin 10.1. Sodium 141. Potassium 3.3. Creatinine 0.8. Atrial fibrillation. He remains on a heparin drip. Plan is for left-sided Pleurx catheter placement in a.m. The patient is seen today 09/04/2020 in follow-up on the selective care unit. He is currently sitting up in a recliner. Awake and alert in no acute distress. Maintaining O2 saturations in the low 90s on 2 L/m per nasal cannula. He is afebrile. Hemodynamically stable. Pleural fluid cultures were positive for Aspergillus fumigatus. White count 12.6. Hemoglobin 9.9. Neutrophils 9.7. Sodium 140. Potassium 3.3. Creatinine 0.68. AST 73, ALT 118. Chest x-ray co ntinues to show severe diffuse bilateral subcutaneous emphysema. Suspect a left-sided pneumothorax along the costophrenic angle measuring 10-15%. Left- sided Pleurx catheter remains in place. Positive leak. Remains on voriconazole, bronchodilators, IV diuretics. Quite related with Eliquis. The patient is seen today 09/07/2020 in follow-up on the selective care unit. He is currently resting comfortably in a recliner. He is awake and alert in no acute distress. Maintain good O2 saturations in the mid 90s on 2 L/m per nasal cannula. He's been afebrile. Chest x-ray continues to show extensive subcutaneous emphysema. Underlying pleural parenchymal opacities persist. Left basilar pleural catheter unchanged. Sputum and pleural fluid cultures positive for Aspergillus fumigatus. He remains on voriconazole. Remains on bronchodilators, anticoagulated with Eliquis. White count 9.8. Hemoglobin 9.3. Sodium 138. Potassium 3.7. Creatinine 0.72. AST 106. ALT 85. Objective - Vital Signs Vital signs: Vital Signs Temp 98.4 F 09/07/20 07:50 Pulse 92 09/07/20 07:50 Resp 18 09/07/20 07:50 BP 95/58 09/07/20 08:55 Pulse Ox 95 09/07/20 07:50 Intake & Output 09/06/20 09/07/20 09/07/20 18:59 06:59 18:59 Intake Total 722 1050 Output Total 850 350 430 Balance -128 -350 620 Weight 99.7 kg Intake: IV 250 10 Invasive Line 6 10 Voriconazole 400 mg In 250 Sodium Chloride 0.9% 250 ml @ 125 mls/hr IVPB Q12HR [facility] Rx#:[id number] Oral 472 1040 Output: Chest Tube Drainage 50 100 Left Mid-Axillary Chest 50 100 Drainage 30 Left Chest 30 Urine 800 250 400 Other: Voiding Method Toilet Urinal - Exam GENERAL EXAM: Alert, very pleasant 60-year-old gentleman, on 2 L nasal cannula, comfortable in no apparent distress. HEAD: Normocephalic. EYES: Normal reaction of pupils, equal size. NOSE: Clear with pink turbinates. THROAT: No erythema or exudates. NECK: No masses, no JVD. CHEST: Bilateral subcutaneous emphysema. Left Pleurx catheter remains in place. LUNGS: Equal air entry with few scattered rhonchi, crackles in the posterior bases. CVS: S1 and S2 normal with no audible murmur, irregular rhythm. ABDOMEN: No hepatosplenomegaly, normal bowel sounds, no guarding or rigidity. SPINE: No scoliosis or deformity SKIN: No rashes CENTRAL NERVOUS SYSTEM: No focal deficits, tone is normal in all 4 extremities. EXTREMITIES: There is 2+ peripheral edema. No clubbing, no cyanosis. Peripheral pulses are intact. - Labs CBC & Chem 7: 09/07/20 07:40 09/07/20 07:40 Labs: Abnormal Lab Results - Last 24 Hours (Table) 09/07/20 09/07/20 Range/Units 07:40 07:40 RBC 3.48 L (4.30-5.90) m/uL Hgb 9.3 L (13.0-17.5) gm/dL Hct 31.5 L (39.0-53.0) % MCHC 29.6 L (31.0-37.0) g/dL RDW 18.8 H (11.5-15.5) % Carbon Dioxide 36 H (22-30) mmol/L Calcium 8.2 L (8.4-10.2) mg/dL Total Bilirubin 1.4 H (0.2-1.3) mg/dL AST 106 H (17-59) U/L ALT 85 H (4-49) U/L Alkaline Phosphatase 513 H (38-126) U/L Total Protein 5.8 L (6.3-8.2) g/dL Albumin 2.5 L (3.5-5.0) g/dL Assessment and Plan Assessment: 1 Acute hypoxic respiratory failure secondary to sepsis, septic shock, related to pneumonia, with chronic loculated effusions, possible empyema. Cultures positive for Aspergillus fumigatus. Left pleural chest tube remains in place. He continues to have intermittent air leak. Output from the Pleurx catheter was noted. He does have some stable subcutaneous emphysema bilaterally. There is also some diastolic dysfunction and elevation of the liver function tests related to voriconazole which is being monitored very closely 2 Bilateral hydropneumothorax, possible empyema, status post ultrasound-guided left-sided thoracentesis on 08/22/2020 with 45 ML's of cloudy white fluid removed, showing Aspergillus. Remains on voriconazole. 3 Bilateral subcutaneous emphysema along with a hydropneumothorax on the left with positive air leak through the Pleurx catheter. He was currently attached to continuous suction 4 Recent pulmonary infections with history of streptococcal pneumonia, empyema requiring chest tube placement in January 2020. 5 Chronic loculated pneumothoraces, posterior, with air-fluid seen on CAT scan imaging on the chest. Possibility of trapped lung, chronic scarring and possibility of empyema. 6 History of rheumatoid arthritis and rheumatoid lung disease. On Arava 7 Recent history of acute kidney injury 8 Hypertension 9 Hypothyroidism 10 Previous history of DVT. 11 New-onset atrial fibrillation/flutter anticoagulated status post failed cardioversion. Currently on Eliquis Plan: The patient was seen and evaluated by Dr. Dougherty Chest x-ray and labs reviewed Significant stable bilateral subcutaneous emphysema Pleurx catheter remains in place, currently on water seal We'll continue to follow I, the cosigning physician, performed a history & physical examination of the patient. Lungs sounds bilateral scattered rhonchi and crackles in the bilateral bases. Maintaining good O2 saturations in the 90s on 2 L/m per nasal cannula. I discussed the assessment and plan of care with my nurse practitioner, Morena Cobb. I attest to the above note as dictated by her.
--- NOTE | 2020-09-07 15:01 | P.PN ---
Subjective Progress Note Date: 09/07/20 This is a 60-year-old male patient requesting my service with past medical history of rheumatoid arthritis on Arava that was diagnosed when he was 37 year old initially was started on Methotrexate that he could not tolerate then placed on Embrel but he developed side effects and finally was tried on Humira injection but he developed neurologic sided effects and was hospitaized at [facility] for quiet some time, rheumatoid lung disease, previous history of loculated empyema with chest tube placement in January 2020, hypertension, hypothyroidism, history of DVT, remote history of tobacco use and dependence, was recently hospitalized at [facility] after he was admitted for an acute kidney injury with significant metabolic acidosis associated with the elevated creatinine and elevated BUN and hypotension at that time he was seen and evaluated by pulmonary and critical care medicine, he had a central line placed and at that time, he was placed on Levophed drip he was p laced on IV anabiotic as well but the patient recovered very fast and he had an echocardiogram that showed normal LV function and segmental hypokinesia, he was supposed to follow-up with Dr. 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 bingo floater today and he had an episode when he was dizzy lightheaded and an episode of vomiting as well and he was sent to the emergency department for evaluation had a computed tomography of the chest as well as abdomen and pelvis that showed a thick walled pleural cavities posteriorly in the lower lungs with left-sided air-fluid level that has diminished in size from the prior computed tomography scan when he was in the hospital a few weeks back there is also associated compressive atelectasis and chronic consultation with multifocal areas of reticular nodular opacity in the upper lungs with a slight nodularity of the left upper lobe again this area of focal consultation has improved from the previous study that was done few weeks ago, patient was started on IV antibiotic with vancomycin and Zosyn as well as IV fluid, he was seen in consultation by pulmonary critical care in the emergency department as the patient blood pressure dropped and that he'll be transferred to the intensive care unit at this point in time I had long conve rsation with the patient and his at the bedside and the patient may need to have a chest tube placed for his possible right empyema, he did receive 3 L normal saline in the ER, and his blood pressure is marginal he may need to go on pressors if not recovered. 08/20:patient is sitting up in chair feeling about the same , complains of increased pain in the righ elbow, was seen earlier by pulmonary and the plan was to go for US-Guided left thoracenthesis due to to loculated left pleural effu unique and possible empyema, may need VATS, he denies any chest pain or shortness of breath, no abdominal pain nausea, vomiting or diarrhea, still have diarrhea negative for C.Diff, he seems to have accept to stay in the hospital this time as long as he needed to. 08/21: Patient sitting up in the recliner complaining of increased pain in his joints due to his rheumatoid arthritis with increased synovitis in both wrists both elbows and both shoulders he was started on hydrocortisone 100 mg IV push every 8 hours, to try to help with his blood pressure as well as his phonation, he is maintained on [place] 5/325 mg one tablet orally every 6 hours as needed for pain control, patient denies any chest pain is less short of breath, he continues to have increased coughing with yellow from production of green phlegm production, he had no fever or chills at this time he continues to be on Levothroid drip, patient has appeared to have increased swelling in both lower extremities as well as both ankles, he is maintained on IV antibiotic in the form of vancomycin as well as cefepime, infectious disease is following, patient is scheduled to go for ultrasound guidance thoracentesis of the left loculated pleural effusion tomorrow morning. 08/22: Patient remains in the intensive care unit. He has been afebrile, heart rate 100, blood pressure 95/62, pulse ox 97% on 2 L nasal cannula. Hemoglobin 8.8 and leukocytosis resolved. Creatinine 0.76, electrolytes normal. Sputum culture is positive for Aspergillus species. Blood culture showing no growth. Patient underwent diagnostic thoracentesis with interventional radiology today with removal of 45 mL of cloudy white fluid. Chest x-ray reveals no complications following left thoracentesis. Fluid has been sent for culture and cytology. Consult in place for cardiothoracic surgery to evaluate for VATS with decortication. 08/23: Patient remains in the intensive care unit. He did receive 1 dose of IV Lasix this morning ordered by nephrology. He is followed by cardiothoracic surgery was no plan for surgical intervention. ID has recommended cefepime and vancomycin for now. Expect antifungal agent ended as well. Patient denies any significant shortness of breath. He is comfortable sitting in a chair. Patient is having minimal cough and minimal sputum. Patient is achieving 1000 ml on incentive spirometry. Culture and cytology reports remain pending from thoracentesis. Repeat chest x-ray reveals patchy peripheral lung with lung zone and lower lung zone infiltrates persist unchanged. Patient has been afebrile, heart rate in the 90s and low 100s, pulse ox 91 on room air. 23: Repeat chest x-ray reveals left-sided basilar loculated pneumothorax, stable. Bilateral lung infiltrates. Correlate for pneumonia and atelectasis. WBC 9, hemoglobin 9.5. Potassium 3.4 and will be replaced. Patient is continued on cefepime and vancomycin per Dr. Blanton's recommendations. Patient in reaching 1000 on incentive spirometry. Patient is scheduled to see Dr. Dubois tomorrow. Cefepime and vancomycin had been discontinued by Dr. Blanton and started on Voriconazole. 08/25: A-Team was called this morning regarding elevated heart rate, EKG was atrial flutter with RVR and 150 bpm and patient was transferred to ICU as an overflow for the cardiac stepdown unit, started on Cardizem drip and consult with cardiology. Heart rate was improved with Cardizem and patient also received amiodarone bolus 300 mg. Patient denies any worsening shortness of breath, cough or congestion. No chest pain or palpitations. Patient is resting comfortably. 09, hemoglobin 8.8, potassium 3.4 replaced. Creatinine 0.89. 08/26: Patient remains in the intensive care unit. He continues to be in atrial flutter with 21 conduction rate. He is on heparin drip and amiodarone. He is currently in and out of atrial flutter with RVR. Cardiology is following closely and may consider cardioversion tomorrow. WBC 16.6, hgb 9.8, plt 374, sodium 143, potassium 3.9, creatinine 0.88. He has been afebrile, heart rate has been at times marginal, pulse ox 90% on room air. Patient denies having any fever or chills, no shortness of breath, no cough. No chest pain. Patient is followed by cardiothoracic surgery and plan is for left-sided PleurX catheter placement which is scheduled for Saturday. 08/29: Patient is scheduled for PleurX catheter placement this afternoon. Cardiology may schedule him for cardioversion. Dr. Woodall is planning on oral antimicrobials at the time of discharge. Patient is bringing up quite a bit of sputum. He has been afebrile, heart rate 68, blood pressure 100/67, pulse ox 93% on 1 L nasal cannula. WBC 21, hemoglobin 9.6, platelet count 325. Potassium 3, BUN 28 creatinine 0.8. 08/30: Patient is status post PleurX catheter. Patient has been afebrile, heart rate 106, blood pressure 85/53. Pulse ox 97% on 2 L. Patient is known to be back in atrial fibrillation at rate of 122. He did go for cardioversion today for atrial flutter. Patient states he has a little pain in the side for which she is taking [place]. Not bad today. Patient has subcutaneous edema to bilateral chest. He denies having any headache. BUN 27 creatinine 0.79. Blood sugar 90-126. 08/31: Patient denies chest pain or shortness of breath. He is reaching 1250 on IS. PleurX draining small amount of sanguinous fluid. Patient is in atrial flutter. Dr. Prieto is planning for EP study and ablation on and plan to continue eliquis. Patient is also on Lopressor 25 mg 3 times daily. Patient has been afebrile, heart rate 97, blood pressure 106/65, pulse ox 98% on room air. Blood sugars running between 112 and 67. Patient is covered with Voriconazole. Lac-Hydrin added for bilateral legs. 09/01: Patient is status post successful atrial flutter ablation with Dr. Prieto. Cardiology has recommended amlodipine 100 mg twice daily for 1 month. vehicle monitor technician is a sinus rhythm with PACs. Metoprolol was decreased to 25 mg twice daily. Patient is on eliquis 5 mg twice daily. Patient has been afebrile, heart rate 64, blood pressure 121/77. Potassium 2.3 and replaced. Repeat level will be obtained this evening. Pleurx catheter remains in place connected to Pleur-evac with intermittent air leak. He has minimal output. Tyrone martell is continued on Advair, so for Aspergillus fungal infection managed by Dr. Blanton. He is planning on oral antimicrobial at the time of discharge. 09/02: Patient is resting in recliner. Patient's is at bedside. Patient states he walked in hallway and felt well but did have shortness of breath with activity. He continues to have subcutaneous emphysema. He continues to have air leak. WBC is 15.8, hemoglobin 10, platelet count 293. Potassium is 3 and will be replaced. BUN 27 creatinine 0.82. Patient has been afebrile, heart rate 79, blood pressure 114/66, pulse ox 90% on room air. Chest x-ray is stable findings. 09/03: Patient is sitting up in his recliner he is quite depressed because he stated the hospital for almost 2 weeks, he wanted to go home, he continues to have some leak in the chest tube on the left side, we will maintain the patient on voriconazole, and he has to take that for the next 4 weeks and possibly longer would leave that up to the discretion of infectious disease, I spoke with his as well as himself about the prognosis and the patient may need to send to the hospital until Saturday , meanwhile continue with physical therapy evaluation, anticipating home health care with physical therapy at home. 09/04: Patient is sitting in the recliner does not appear in acute distress, he continues to have the chest tube in the left side with minimal leakage, hopefully it will be removed in the next 24 hours and can be discharged home, he is maintained on voriconazole for his Aspergillus fumigate as, continue with increased activity, continue to monitor the patient very closely, anticipate discharge in 1-2 days. 09/05: Patient remains with Pleurx catheter to wall suction with intermittent leak. He also continues to have subcutaneous emphysema not worsening. Patient is very anxious to leave the hospital and go home. Discussed dosing of Amiodarone with Dr. Prieto. Amiodarone will be discontinued at the time of discharge. Patient is currently on Lasix 40 IVP daily. Lower extremity edema is improving. WBC 13.0, hemoglobin 9.6, electrolytes unremarkable, with the exception of the CO2 of 35, renal profile is unremarkable, liver enzymes show AST 146, alkaline phosphatase 495. 09/06: The chest x-ray reveals no definite large pneumothorax. Small left apical pneumothorax. Could be considered bilateral peripheral infiltrate in right upper lobe. Patient has been afebrile, heart rate 93, blood pressure 90/54, pulse ox 97% on 2 L nasal cannula. Heart monitor sinus rhythm. Repeat blood work ordered for tomorrow. Pleurx catheter continues to have a slight intermittent air leak. Patient continues to have subcutaneous emphysema without worsening. 09/07: Patient is currently off suction the time of evaluation. Cardiothoracic surgery is planning for repeat chest x-ray tomorrow and possibly Pleurx catheter. Patient is upset today and really wants to go home. His pulse ox is 8789% at rest without oxygen. environmental services manager to attempt to set up home oxygen therapy. He has been afebrile, heart rate 93, blood pressure 96/56. Leukocytosis has resolved with WBC of 9.8, hemoglobin 9.3. Potassium 3.7, BUN 14 and creatinine 0.77. Total bilirubin 1.4. AST 106, ALT 85, avoid phosphatase 513. Discussed with Dr. Blanton and agreed to transition IV antifungal to oral and we will discontinue amiodarone. Possible discharge home tomorrow. Objective - Vital Signs Vital signs: Vital Signs Temp 98.1 F 09/07/20 04:00 Pulse 93 09/07/20 04:00 Resp 16 09/07/20 04:00 BP 96/56 09/07/20 04:00 Pulse Ox 94 L 09/07/20 04:00 Intake & Output 09/06/20 09/07/20 09/07/20 18:59 06:59 18:59 Intake Total 722 Output Total 850 350 Balance -128 -350 Weight 99.7 kg Intake: IV 250 Voriconazole 400 mg In 250 Sodium Chloride 0.9% 250 ml @ 125 mls/hr IVPB Q12HR [facility] Rx#:[id number] Oral 472 Output: Chest Tube Drainage 50 100 Left Mid-Axillary Chest 50 100 Urine 800 250 Other: Voiding Method Toilet Urinal - Exam Review of Systems Constitutional: Reports anorexia, Reports chronic pain, Reports fatigue, denies weakness, Reports weight loss Eyes: denies blurred vision, denies bulging eye, denies decreased vision, denies diplopia Ears, nose, mouth and throat: Denies dysphagia, Denies sore throat Respiratory: Reports dyspnea, with exertion Reports respiratory infections, Denies congestion, Denies cough with sputum, Denies home oxygen, Denies sleep apnea, Denies snoring, Denies wheezing Cardiac: No chest pain. No palpitations. No lower extremity edema. No syncopal episodes. Gastrointestinal: Reports bloating, Reports change in bowel habits, Reports diarrhea, Reports early satiety, Reports indigestion, Reports loss of appetite, Reports nausea, Reports vomiting, Denies abdominal pain, Denies belching, Denies heartburn, Denies hematemesis, Denies hematochezia, Denies melena Genitourinary: Denies dysuria, Denies nocturia Musculoskeletal: Denies myalgias Musculoskeletal: absent: ankle pain, ankle stiffness, ankle swelling, elbow pain, elbow stiffness, elbow swelling, foot pain, foot stiffness, foot swelling, hand pain, hand stiffness, hand swelling, hip pain, hip stiffness, hip swelling, knee pain, knee stiffness, knee swelling, shoulder pain, shoulder stiffness, shoulder swelling, wrist pain, wrist stiffness, wrist swelling Integumentary: Denies pruritus, Denies rash, subcutaneous emphysema Neurological: Denies numbness, Denies weakness Psychiatric: Denies anxiety, Denies depression Endocrine: Denies fatigue, Denies weight change Physical examination: General: This is a 60-year-old male. Patient is resting in a recliner and appears to be comfortable. HEENT: head ia atraumatic normocephalic, Pupils were equal round reactive to light and accommodations , extra ocular muscle movement were intact, mucous membranes of the mouth are somewhat dry. Neck: supple no JVP. Chest: decreased breath sounds at he bases no expiratory wheezes no chest wall tendernes or intercostal retractions. PleurX cath in place. Positive subcutaneous emphysema. Heart: first heart sound is depressed, second heart sound is normal tachycardic and irregular there is BIRD 2/6 located at the left sternal border. Abdomen: soft, mild tenderness to the left lower quadrant positive bowel sounds, no guarding or rebound tenderness, no hepatosplenomegaly. Extremities: there is 1+ edema or calf tenderness DP+ 2 Bilaterally, there is what appears to be a charcot joint in the right foot form arch collapse. Neurologic examination: patient is awake , alert and oriented X 3 CN II-XII are grossly intact, muscle power 4/5 in bilateral upper and lower extremities, deep tendon reflexes were normal. - Labs CBC & Chem 7: 09/07/20 07:40 09/07/20 07:40 Assessment and Plan Assessment: 1. Acute hypoxemic respiratory failure secondary to loculated left-sided pleural effusion and fungal empyema with what appears to be recurrent pneumonia. Continue Voriconazole transitioned to oral 400 mg twice daily per Dr. Blanton with plan for oral at the time of discharge. Discontinue amiodarone 2. Lactic acidosis. Resolved, repeat lactic acid is back to normal. 3. Sepsis with septic shock and was stable. Patient has been weaned off Levothroid drip. 4. Acute kidney injury due to poor oral intake of fluid as well as hypotension with acute tubular necrosis. Patient is on IV fluid, continue to monitor the patient CMP continue to monitor urine output. Nephrology is following. 5. Leukocytosis secondary to severe sepsis secondary to empyema. Patient is off antibiotic. 6. Persistent atrial flutter with RVR. Status post cardioversion, converted back. Status post ablation completed by Dr. Prieto. Patient to continue eliquis. Continued on amiodarone 100 mg daily until discharge and then discontinue. Cardiology consult appreciated. 7. Rheumatoid arthritis and rheumatoid lung. Arava and Xeljanz had been on hold since April. 8. History of empyema with Streptococcus requiring chest tube. 9. Hypertension and hypertensive cardiovascular disease. Lasix 40 mg IVP daily. 10. Hypothyroidism . we will continue with Synthroid 150 mcg orally daily. 11. Elevated liver function tests. Plan to discontinue amiodarone and transition voriconazole to oral. 12. DVT prophylaxis. Eliquis and SCDs. 13. GI prophylaxis. we will continue with Protonix 40 mg oral daily. Discharge plan: home on Impression and plan of care have been directed as dictated by the signing physician. Yumiko Brown nurse practitioner acting as scribe for signing physician.
--- NOTE | 2020-09-07 15:14 | P.PN ---
Progress Note - Text Progress Note Date: 09/07/20 HISTORY OF PRESENT ILLNESS This is a 60-year-old male treated for Aspergillus pneumonia and empyema. Patient has a left-sided Pleurx catheter in place with intermittent air leak. He is going to require home oxygen therapy. 7 afebrile, heart rate 93, blood pressure 96/56. Pulse ox is 8789% at rest without oxygen. He denies having any chest pain or shortness of breath at rest. He does have exertional dyspnea. No abdominal pain or diarrhea. Patient is noted to have elevated liver function tests for which we will discontinue amiodarone as was previously discussed with Dr. Prieto and transition antifungal to oral. PHYSICAL EXAMINATION Gen: This is a 60-year-old male. Patient is resting in bed and appears to be a recliner and appears to be in no acute distress. HEENT: Head is atraumatic, normocephalic. Pupils equal, round. Sclerae is anicteric. NECK: Supple. No JVD. LUNGS: Decreased at the bases. No wheezes or rhonchi. No intercostal retractions. Pleurx catheter in place. HEART: Regular rate and rhythm. No murmur. ABDOMEN: Soft. Bowel sounds are present. No masses. No tenderness. EXTREMITIES: No pedal edema. No calf tenderness. NEUROLOGICAL: Patient is awake, alert and oriented x3. ASSESSMENT Aspergillus pneumonia and empyema status post X catheter placement Elevated liver function tests Rheumatoid arthritis PLAN Discontinue amiodarone as discussed with Dr. Prieto Transition voriconazole to oral 400 mg twice daily Prescription for for Voriconazole 400 mg twice daily for 3 month course has been sent to his pharmacy. The above dictated assessment and findings were discussed with Dr. Blanton. The impression and plan of care have been directed as dictated. Yumiko Brown nurse practitioner acting as scribe for Dr. Blanton.
[2020-09-07] MEDS: SODIUM CHLORIDE 0.9% 1,000 ML IV SCH (18:13)
[2020-09-07] MEDS: ASPIRIN 81 MG PO SCH (20:28)
[2020-09-07] MEDS: ASCORBIC ACID 500 MG TAB PO SCH (20:28)
[2020-09-07] MEDS: CHOLECALCIFEROL 25 MCG (1000 IU) TABLET PO SCH (20:31)
[2020-09-07] MEDS: HYDROcodone/APAP 5-325MG 1 EACH TAB PO PRN (22:28)
[2020-09-08] MEDS: LEVOTHYROXINE 75 MCG TAB PO SCH (06:21)
[2020-09-08] MEDS: PANTOPRAZOLE 40 MG TABLET PO SCH (06:22)
[2020-09-08] MEDS: IPRATROPIUM-ALBUTEROL 3 ML NEB INHALATION SCH ×3 (07:42→19:32)
--- NOTE | 2020-09-08 07:57 | P.PN ---
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 Radius his tory of multiple admissions for pneumonia with empyema on the left and previous bilateral chest tube placement in December 2019 with cultures positive for strep pneumonia, rheumatoid arthritis with rheumatoid lung, hypertension, hypothyroidism, DVT, previous tobacco dependence, family history of lung cancer, and recent hospitalization for hypotension, dehydration, acute kidney injury requiring dialysis POD #17 left-sided thoracentesis by interventional radiology POD #10 left Pleurx catheter placement with irrigation of pleural space and instillation of amphotericin B solution under thoracoscopic guidance Extensive subcutaneous emphysema Persistent atrial flutter with RVR, status post electrical cardioversion, status post radiofrequency ablation The patient is currently sitting up in a recliner on the cardiac stepdown unit in no acute distress. Denies pain, shortness of breath, appears comfortable. Currently in sinus rhythm and hemodynamically stable. Left sided Pleurx catheter continues to waterseal, rare air leak seen this morning. Patient is hopeful to have his Pleurx catheter capped and to be discharged to home today. States he has been ambulatory in [facility] without difficulty Objective - Vital Signs Vital signs: Vital Signs Temp 98.0 F 09/08/20 03:44 Pulse 88 09/08/20 03:44 Resp 18 09/08/20 03:44 BP 83/53 09/08/20 03:44 Pulse Ox 96 09/08/20 03:44 Intake & Output 09/07/20 09/08/20 09/08/20 18:59 06:59 18:59 Intake Total 1700 10 Output Total 1190 305 Balance 510 -295 Weight 99.3 kg Intake: IV 20 10 0.9 10 Invasive Line 6 20 Oral 1680 Output: Chest Tube Drainage 110 5 Left Mid-Axillary Chest 110 5 Drainage 30 0 Left Chest 30 0 Urine 1050 300 Other: Voiding Method Toilet Urinal # Voids 1 - Constitutional General appearance: Present: cooperative, no acute distress - Respiratory Details: Lungs sounds diminished in the bases bilaterally. Respirations even, nonlabored. Currently on 2 L nasal cannula with oxygen saturation 96%. Able to achieve 750 mL on his incentive spirometry. Strong cough. Left sided Pleurx catheter present to waterseal, 5 mL yellow drainage overnight, 150 mL in the last 24 hours, rare air leak present. Subcutaneous emphysema to both arms, chest and back remains, but does appear slightly better - Cardiovascular Details: S1, S2 present. Regular rate and rhythm, sinus rhythm on telemetry with heart rate in the high 80s. Palpable peripheral pulses bilaterally. Bilateral lower extremity edema present. No calf pain or tenderness noted. - Gastrointestinal Gastrointestinal Comment(s): Abdomen soft, nontender, nondistended. Active bowel sounds present 4 quadran ts. Tolerating diet. Positive bowel movement 09/02 - Genitourinary Genitourinary Comment(s): Continues to void - Integumentary Integumentary Comment(s): Skin is warm and dry with evidence of good perfusion - Neurologic Neurologic: Present: CNII-XII intact - Musculoskeletal Musculoskeletal: Present: gait normal, strength equal bilaterally - Psychiatric Psychiatric: Present: A&O x's 3, appropriate affect, intact judgment & insight - Allied health notes Allied health notes reviewed: nursing - Labs CBC & Chem 7: 09/07/20 07:40 09/07/20 07:40 Labs: Abnormal Lab Results - Last 24 Hours (Table) 09/07/20 09/07/20 Range/Units 07:40 07:40 RBC 3.48 L (4.30-5.90) m/uL Hgb 9.3 L (13.0-17.5) gm/dL Hct 31.5 L (39.0-53.0) % MCHC 29.6 L (31.0-37.0) g/dL RDW 18.8 H (11.5-15.5) % Carbon Dioxide 36 H (22-30) mmol/L Calcium 8.2 L (8.4-10.2) mg/dL Total Bilirubin 1.4 H (0.2-1.3) mg/dL AST 106 H (17-59) U/L ALT 85 H (4-49) U/L Alkaline Phosphatase 513 H (38-126) U/L Total Protein 5.8 L (6.3-8.2) g/dL Albumin 2.5 L (3.5-5.0) g/dL - Imaging and Cardiology Chest x-ray: image reviewed Assessment and Plan Assessment: 1. 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 Acute hypoxic respiratory failure with sepsis on admission 3. Multiple admissions for pneumonia with empyema on the left and previous bilateral chest tube placement in December 2019 with cultures positive for strep pneumonia 4. Rheumatoid arthritis with rheumatoid lung 5. Hypertension, currently hypotensive, requiring pressors on admission 6. Hypothyroidism 7. History of DVT 8. Previous tobacco dependence 9. Family history of lung cancer 10. Recent hospitalization for hypotension, dehydration, acute kidney injury requiring dialysis 11. Extensive subcutaneous emphysema, common occurrence after lung surgery 12. Hydropneumothorax, expected given patient's history of rheumatoid lung with trapped lung for quite some time 13. Persistent atrial flutter with RVR, status post electrical cardioversion and radiofrequency ablation, currently sinus Plan: 1. Continue Pleurx catheter to waterseal, will discuss capping Pleurx with Dr. Dubois. 2. Daily chest x-rays 3. Encourage incentive spirometry. Bronchodilators per pulmonology 4. Eliquis per cardiology 5. Continue voriconazole per infectious disease recommendations, transitioned to oral 6. Increase activity as tolerated, ambulate in hallway 7. Management of other comorbidities per primary care service. 8. Teaching done with patient and regarding Pleurx catheter care. Will continue to reinforce while patient is hospitalized 9. More recommendations to follow Time with Patient: Greater than 30
--- NOTE | 2020-09-08 08:07 | XR ---
EXAMINATION TYPE: XR chest 2V DATE OF EXAM: 09/08/2020 COMPARISON: 09/07/2020 HISTORY: 60-year-old male trapped lung TECHNIQUE: PA and lateral views FINDINGS: Continued extensive bilateral subcutaneous emphysema throughout. Heart borderline enlarged. A left-si ded basilar pleural catheter is present. Extensive consolidation patchy and confluent consolidation t hroughout the right lung persists. Air-fluid levels noted at both lung bases suggesting underlying hy dropneumothoraces. Possible visualization of a pleural edge at the left base now. These air-fluid lev els are not clearly seen previously. IMPRESSION: 1. Persistent extensive bilateral subcutaneous emphysema limiting the assessment. 2. Air-fluid levels are now seen at the bilateral lower lungs suggesting underlying loculated hydropn eumothoraces on both sides. A pleural edge is now better seen at the left base with indwelling left-s ided pleural catheter. 3. Patchy airspace disease throughout the right lung persists.
[2020-09-08] MEDS: VORICONAZOLE 200 MG TAB PO SCH ×2 (08:18→20:17)
[2020-09-08] MEDS: METOPROLOL TARTRATE 12.5 MG TAB PO SCH ×2 (08:18→20:17)
[2020-09-08] MEDS: APIXABAN 5 MG TAB PO SCH ×2 (08:18→20:16)
[2020-09-08] MEDS: TRIAMCINOLONE 0.1% CREAM 80 GM TUBE TOPICAL SCH ×2 (08:19→20:17)
[2020-09-08] MEDS: AMMONIUM LACTATE 12% LOTION 225 GM BTL TOPICAL SCH ×2 (08:19→20:17)
[2020-09-08] MEDS: LACTATED RINGERS 1,000 ML IV SCH (08:19)
--- NOTE | 2020-09-08 12:23 | P.PN ---
Subjective Progress Note Date: 09/08/20 60-year-old white male patient, with past medical history of rheumatoid arthritis, previous history of rheumatoid lung disease on Arava, previous episodes of pneumonia and history of loculated empyema requiring chest tube placement back in January 2020 with pleural fluid cultures positive for streptococcal pneumonia. Other medical history includes hypertension, hypothyroidism and previous history of DVT. Patient had a recent hospitalization from August 08 through 08/11/2020 hypotension, dehydration re lated to nausea vomiting diarrhea, acute kidney injury. Patient received antibiotics in the form of Zosyn and Levaquin for possibility of pneumonia, he is chest x-ray showed cranial perihilar pulmonary infiltrates with increased interstitial changes at the lung bases and was thought to be related to a combination of rheumatoid lung and chronic scarring. His last CT of the chest was on 07/19/2020 showing chronic changes to lower lungs, persistent irregular thick-walled pleural spaces in the posterior lung bases containing fluid and air with adjacent anterior lung with chronic consolidation or atelectasis. On 08/19/2020 patient came into the emergency department from Dr. GENE Carias's office where he was being seen for a regular follow-up appointments. He was noted to have low pulse ox 70s and was sent in to the emergency department for evaluation. He has been having cough with yellow and sometimes blood-tinged sputum, appears amounts, denies any fever, COVID 19 was found to be negative, chest x-ray showed perihilar and basilar infiltrates without significant change from previous chest x-ray on 08/09/2020. Lab data showed leukocytosis with white blood cell count of 19.1, hemoglobin of 12.1, INR 1.5, sodium is 135, potassium is 3.9, chloride is 102, CO2 is 19, creatinine is 1.32, which has actually improved since his discharge from the hospital on 08/11/2020 when he was at 1.84. Lactic acid was elevated at 3.7, patient was given a total of 2 L in fluid boluses, troponin was negative at less than 0.012. Urinalysis showed no evidence of infection. CT chest showed thick-walled pleural cavities posteriorly in the lower lungs with left-sided air-fluid level with left-sided pleural fluid diminished most recent CT from 07/19/2020. There is associated compressive atelectasis and/or chronic consolidation. Persistent as it is lobe fissure, multifocal areas of reticular nodular opacity in the upper lungs remain present with slight nodularity in the left upper lobe. There is a focal consolidation improved from most recent study with some residual areas of scarring. We will emergency department patient became hypotensive with a blood pressure in the 70s, slightly tachycardic remains in sinus mechanism, he is receiving his third liter bolus, his lactic acid did respond and improved he was started on antibiotics in the form of Zosyn and vancomycin The patient is seen today August 20 2020 in the intensive care unit. He is currently sitting up in a chair at the bedside. Awake and alert in no acute distress. Maintaining O2 saturations in the 90s on 2 L/m per nasal cannula. He did require a small dose of norepinephrine currently on 0.05 mcg/kg/m. He has lactated Ringer's at 100 MLS per hour. He remains on vancomycin and cefepime. Chest x-ray continues to show the left lower lobe effusion. White count 11.7. Hemoglobin 9.7. Sodium 135. Potassium 3.6. Creatinine 1.00. Blood cultures reveal no growth to date. Reevaluated today on 08/21/2020, remains in the ICU, still on norepinephrine at 0.04 mcg/kg/m. On LR at 1 25 mL per hour. On vancomycin and cefepime empirically, blood pressure remains marginal, went ahead and recommended Solu-Cortef 100 mg IV push every 8 hours and hopefully will be able to discontinue norepinephrine today. His IV fluid is cut down to KVO. Given 20 mg of Lasix IV push, and I have recommended that we monitor the patient in the ICU for the next 24 hours. Chest x-ray is basically the same, continues to show ch ronic finding, difficult to exclude underlying pneumonia/empyema. CT of the chest on admission was also reviewed, difficult to rule out underlying empyema. Clinically the patient is feeling better except for generally weak. WBC count is 12.5 hemoglobin is 9.9. Normal renal profile is normal blood cultures are negative so far. Sputum cultures are also negative so far. On 08/22/2020 patient seen in follow-up in the intensive care unit, he is awake and alert, oriented 3, sitting up in the recliner, currently on 2 L of oxygen his pulse ox is 95-100%, his been afebrile, hemodynamically he is stable, he is not on any vasopressor support. His lactate Ringer's running at 20 ML per hour, antibiotics include cefepime and vancomycin, blood pressure has been stable, so far blood and sputum cultures are negative, he denies chest pain, his breathing is comfortable. Today's labs have been reviewed, showing white blood cell count trending down, 10.2 today, hemoglobin is 8.8, electrolytes and renal profile are unremarkable. Serum cortisol level came back at 3, patient continues on stress doses of hydrocortisone 100 mg every 8 hours. Patient has not been stable, we'll consult interventional radiology for ultrasound-guided left thoracentesis On 08/23/2020 patient seen in follow-up in the intensive care unit, he is calm and comfortable, awake and alert, sitting up in the recliner, currently on room air with a pulse ox of 93-94%, his been afebrile, hemodynamically he is been stable, he is on IV LR at 20 ML per hour, no other drips. He is on cefepime and vancomycin for antibiotic coverage, yesterday he underwent left thoracentesis with removal of 43 mL of pleural fluid which was sent for cultures. Tolerated procedure well. His pleural fluid analysis revealed total fluid protein of 1.3 g, and fluid LDH of greater than 4500 consistent with exudative fluid. His microbiology data has been reviewed showing Aspergillus fumigate is in the sputum, his pleural fluid cultures are pending at this time, the cultures have shown no growth, hemodynamically has been stable, he is breathing easier, he still has cough mostly in the morning and the amount of secretions his bringing up is decreasing in amount. Lung sounds revealed a few scattered wheezes, and a few rhonchi at bilateral bases. Is tolerating oral intake. No abdominal pain, no nausea or vomiting, today's labs have been reviewed, white blood cell count is 11.2, hemoglobin is 9.1, sodium is 137, potassium is 4.0, chloride is 109, BUN is 15, creatinine 0.80. No acute events overnight. He is working on incentive spirometer, he is achieving 1000 today On 08/24/2020 patient seen in follow-up on medical surgical floor. He is awake and alert, in no acute distress, breathing comfortably, denies any chest pain, room air pulse ox is 94%, no fever or chills, today's chest x-ray shows left basilar loculated pneumothorax, stable in appearance, bilateral lung infiltrates. His pleural fluid cultures so far showing Aspergillus species, as does his sputum culture. Blood culture show no growth. The cervix is follow ing, current antibiotic coverage includes cefepime, vancomycin has been discontinued, she received 1 dose of IV Lasix per nephrology. He has produced 2500 in urine output, and he is in -1.6 L over the last 24 hours, however he still has significant lower extremity edema. The patient is seen today 08/25/2020 in follow-up in the intensive care unit. He was transferred here earlier this morning after developing atrial fibrillation/flutter with a rapid ventricular response. He was initiated on C ardizem at 5 mg per hour. He has 0.9 normal saline at 20 ML's per hour. He is currently awake and alert in no acute distress. No worsening shortness of breath, cough or congestion. No chest pain or palpitations. He sitting up in a chair at the bedside. Maintaining O2 saturations in the 90s on 2 L/m per nasal cannula. Chest x-ray does reveal loculated posterior basilar pneumothoraces, stable from previous exam. There is diffuse increased lung markings. Correlate for pneumonia and atelectasis. Pleural fluid cultures is positive for Aspergillus species. White count 10.9. Hemoglobin 8.8. Sodium 139. Potassium 3.4. Creatinine 0.89. He remains on bronchodilators, IV diuretics, IV Solu- Cortef. Continued on voriconazole. The patient is seen today 08/27/2020 in follow-up on the selective care unit. He is currently sitting up in a recliner at the bedside. Awake and alert in no acute distress. He is currently on room air. LR at 20 miles per hour. Heparin drip per weight base protocol. White count 19.0. Hemoglobin 9.1. Sodium 142. Potassium 3.6. Creatinine 0.81. He remains on voriconazole. The patient is seen today 08/28/2020 in follow-up on the selective care unit. He is currently sitting up in a chair at the bedside. No worsening shortness of breath, cough or congestion. Chest x-ray reveals bilateral airspace infiltrates right greater than left without significant improvement. Sputum and pleural fluid cultures were both positive for Aspergillus fumigatus. He remains on voriconazole. White count 18.5. Hemoglobin 10.1. Sodium 141. Potassium 3.3. Creatinine 0.8. Atrial fibrillation. He remains on a heparin drip. Plan is for left-sided Pleurx catheter placement in a.m. The patient is seen today 09/04/2020 in follow-up on the selective care unit. He is currently sitting up in a recliner. Awake and alert in no acute distress. Maintaining O2 saturations in the low 90s on 2 L/m per nasal cannula. He is afebrile. Hemodynamically stable. Pleural fluid cultures were positive for Aspergillus fumigatus. White count 12.6. Hemoglobin 9.9. Neutrophils 9.7. Sodium 140. Potassium 3.3. Creatinine 0.68. AST 73, ALT 118. Chest x-ray co ntinues to show severe diffuse bilateral subcutaneous emphysema. Suspect a left-sided pneumothorax along the costophrenic angle measuring 10-15%. Left- sided Pleurx catheter remains in place. Positive leak. Remains on voriconazole, bronchodilators, IV diuretics. Quite related with Eliquis. The patient is seen today 09/07/2020 in follow-up on the selective care unit. He is currently resting comfortably in a recliner. He is awake and alert in no acute distress. Maintain good O2 saturations in the mid 90s on 2 L/m per nasal cannula. He's been afebrile. Chest x-ray continues to show extensive subcutaneous emphysema. Underlying pleural parenchymal opacities persist. Left basilar pleural catheter unchanged. Sputum and pleural fluid cultures positive for Aspergillus fumigatus. He remains on voriconazole. Remains on bronchodilators, anticoagulated with Eliquis. White count 9.8. Hemoglobin 9.3. Sodium 138. Potassium 3.7. Creatinine 0.72. AST 106. ALT 85. The patient is seen today 09/08/2020 in follow-up on the selective care unit. He is awake and alert in no acute distress. Sitting up in a recliner. Maintain good O2 saturations in the mid 90s on 2 L/m per nasal cannula. He's been afebrile. He remains on voriconazole. Remains on bronchodilators, anticoagulated with Eliquis. Chest x-ray reveals persistent extensive bilateral subcutaneous emphysema. Air-fluid levels no seen in the bilateral lower lungs suggesting underlying loculated hydropneumothorax is on both sides. Pleural edge better seen in the left base with continued left-sided Pleurx catheter. Patchy airspace disease throughout the right lung persist. Objective - Vital Signs Vital signs: Vital Signs Temp 98.1 F 09/08/20 07:56 Pulse 93 09/08/20 07:56 Resp 18 09/08/20 07:56 BP 102/58 09/08/20 08:32 Pulse Ox 97 09/08/20 07:56 Intake & Output 09/07/20 09/08/20 09/08/20 18:59 06:59 18:59 Intake Total 1337 10 437 Output Total 1190 305 70 Balance 147 -295 367 Weight 99.3 kg Intake: IV 20 10 0.9 10 Invasive Line 6 20 Oral 1317 437 Output: Chest Tube Drainage 110 5 70 Left Mid-Axillary Chest 110 5 70 Drainage 30 0 0 Left Chest 30 0 0 Urine 1050 300 Other: Voiding Method Toilet Urinal # Voids 1 - Exam GENERAL EXAM: Alert, very pleasant 60-year-old gentleman, on 2 L nasal cannula, comfortable in no apparent distress. HEAD: Normocephalic. EYES: Normal reaction of pupils, equal size. NOSE: Clear with pink turbinates. THROAT: No erythema or exudates. NECK: No masses, no JVD. CHEST: Bilateral subcutaneous emphysema. Left Pleurx catheter remains in place. LUNGS: Equal air entry with few scattered rhonchi, crackles in the posterior bases. CVS: S1 and S2 normal with no audible murmur, irregular rhythm. ABDOMEN: No hepatosplenomegaly, normal bowel sounds, no guarding or rigidity. SPINE: No scoliosis or deformity SKIN: No rashes CENTRAL NERVOUS SYSTEM: No focal deficits, tone is normal in all 4 extremities. EXTREMITIES: There is 2+ peripheral edema. No clubbing, no cyanosis. Peripheral pulses are intact. - Labs CBC & Chem 7: 09/07/20 07:40 09/07/20 07:40 Assessment and Plan Assessment: 1 Acute hypoxic respiratory failure secondary to sepsis, septic shock, related to pneumonia, with chronic loculated effusions, possible empyema. Cultures positive for Aspergillus fumigatus. Left Pleurx catheter remains in place since 08/29/2020 . He continues to have intermittent air leak. Output from the Pleurx catheter was noted. He does have some stable subcutaneous emphysema bilaterally. There is also some diastolic dysfunction and elevation of the liver function tests related to voriconazole which is being monitored very closely 2 Bilateral hydropneumothorax, possible empyema, status post ultrasound-guided left-sided thoracentesis on 08/22/2020 with 45 ML's of cloudy white fluid removed, showing Aspergillus. Remains on voriconazole. 3 Bilateral subcutaneous emphysema along with a hydropneumothorax on the left with positive air leak through the Pleurx catheter. He was currently attached to continuous suction 4 Recent pulmonary infections with history of streptococcal pneumonia, empyema requiring chest tube placement in January 2020. 5 Chronic loculated pneumothoraces, posterior, with air-fluid seen on CAT scan imaging on the chest. Possibility of trapped lung, chronic scarring and possibility of empyema. 6 History of rheumatoid arthritis and rheumatoid lung disease. On Arava 7 Recent history of acute kidney injury 8 Hypertension 9 Hypothyroidism 10 Previous history of DVT. 11 New-onset atrial fibrillation/flutter anticoagulated status post failed cardioversion. Currently on Eliquis Plan: The patient was seen and evaluated by Dr. Dougherty Chest x-ray reviewed Pleurx catheter remains in place Home once cleared by CT services I, the cosigning physician, performed a history & physical examination of the patient. Lungs sounds bilateral scattered rhonchi and crackles in the bilateral bases. Maintaining good O2 saturations in the 90s on 2 L/m per nasal cannula. I discussed the assessment and plan of care with my nurse practitioner, Morena Cobb. I attest to the above note as dictated by her.
[2020-09-08] MEDS: SODIUM CHLORIDE 0.9% 1,000 ML IV SCH (13:40)
--- NOTE | 2020-09-08 14:02 | PN ---
PROGRESS NOTE DATE OF SERVICE: 09/08/2020 REASON FOR FOLLOWUP: Aspergillosis with aspergillus pneumonia. INTERVAL HISTORY: The patient is currently afebrile. The patient is breathing comfortably. He is feeling slightly depressed because of continued air leaks, responding to chest tube. Denies any chest pain. No abdominal pain. No diarrhea. PHYSICAL EXAMINATION: Blood pressure is 102/58 with pulse of 93, temperature 98.1. He is 97% on 2 L nasal cannula. General description is a middle-aged male lying in bed in no distress. RESPIRATORY SYSTEM: Unlabored breathing, decreased breath sounds at the bases. No wheeze. HEART: S1, S2. Regular rate and rhythm. ABDOMEN: Soft, no tenderness. LABS: Hemoglobin is 9.3, white count 9.8, creatinine 0.72. AST is down to 106, ALT is down to 85. DIAGNOSTIC IMPRESSION AND PLAN: Patient with aspergillus pneumonia and empyema, status post Port-A-Cath placement and did have problem with leak. CT Surgery is following the patient. Patient is covered with [employer], that will be continued for a couple of weeks and a close outpatient followup. MMODL / IJN: [id number] /
[2020-09-08] MEDS ORDERED: SODIUM CHLORIDE 0.65% NASAL SPRAY 44 ML BTL NASAL PRN (14:41)
--- NOTE | 2020-09-08 16:30 | CDI ---
Documentation Clarification Form Date: 09/08/2020 03:40:00 PM From: Gloria Garcia RN, CCDS Admit Date: 08/19/2020 12:02:00 PM Patient Name: Lokesh Zee Visit Number: [id number] Discharge Date: ATTENTION: The Clinical Documentation Specialists (CDI) and [facility] Coding Staff appreciate your assistance in clarifying documentation. Please respond to the clarification below the line at the bottom and electronically sign. The CDI & [facility] Coding staff will review the response and follow-up if needed. Please note: Queries are made part of the Legal Health Record. If you have any questions, please contact the author of this message via ITS. Dr. Oswaldo Dubois Extensive subcutaneous emphysema is documented in chest x-ray and progress notes starting on 08/30/20. Please render your opinion on this documentation. 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 08/19 CT Scan: possible empyema 08/19 CT angiography: chronic parenchymal changes from known rheumatoid lung disease 08/29 CXR: Interval placement of left-sided pleural catheter w/o sizable pneumothorax. There is evidence of subcutaneous air along the left chest wall. Bilateral infiltrates are stable. 08/30 CXR Worsening bilateral subcutaneous emphysema 08/31 CXR: Severe bilateral subcutaneous emphysema persist. Left-sided pleur X catheter was re-demonstrated with small left basilar hydrothorax. Bilateral patchy infiltrates right greater than left. 09/08 persistent extensive bilateral subcutaneous emphysema limiting the assessment. Air-fluid levels are now seen at the bilateral lower lungs suggesting underlying lobulated hydropneumothoraces on both sides. An indwelling left-sided pleural catheter. Treatment: 08/22 Left Thoracentesis Pleurx catheter to waterseal Daily chest x-rays Encourage incentive spirometry, Bronchodilators per pulmonology Teaching done regarding Pleurx catheter call In order to accurately reflect this patients severity of illness, please clarify if the extensive subcutaneous emphysema: -is a complication of surgical procedure -is an expected outcome of the surgical procedure -is related to co-morbid condition(s) of (specify) -Other please specify -Unable to determine (Last Revision: August 2019) MTDD
[2020-09-08] MEDS: ASCORBIC ACID 500 MG TAB PO SCH (20:16)
[2020-09-08] MEDS: CHOLECALCIFEROL 25 MCG (1000 IU) TABLET PO SCH (20:17)
[2020-09-08] MEDS: ASPIRIN 81 MG PO SCH (20:17)
[2020-09-08] MEDS: HYDROcodone/APAP 5-325MG 1 EACH TAB PO PRN (20:20)
[2020-09-09] MEDS: PANTOPRAZOLE 40 MG TABLET PO SCH (06:31)
[2020-09-09] MEDS: LEVOTHYROXINE 75 MCG TAB PO SCH (06:31)
--- NOTE | 2020-09-09 07:33 | XR ---
EXAMINATION TYPE: XR chest 2V DATE OF EXAM: 09/09/2020 COMPARISON: 09/08/2020 INDICATION: Trapped lung TECHNIQUE: Frontal and lateral views of the chest are obtained. FINDINGS: The heart size is normal. The pulmonary vasculature is normal. There is diffuse increased lung markings to the right upper lobe and right apex. Air-fluid levels are within the bilateral lung bases. The loculated pneumothorax at the left base appears stable. Extensi ve subcutaneous emphysema remains present.. IMPRESSION: 1. Loculated left lateral base pneumothorax appears stable. 2. Bilateral air-fluid levels within the lung bases
[2020-09-09] MEDS: IPRATROPIUM-ALBUTEROL 3 ML NEB INHALATION SCH ×2 (08:07→11:14)
[2020-09-09] MEDS: APIXABAN 5 MG TAB PO SCH (08:23)
[2020-09-09] MEDS: METOPROLOL TARTRATE 12.5 MG TAB PO SCH (08:23)
[2020-09-09] MEDS: VORICONAZOLE 200 MG TAB PO SCH (08:23)
[2020-09-09] MEDS: AMMONIUM LACTATE 12% LOTION 225 GM BTL TOPICAL SCH (08:24)
[2020-09-09] MEDS: TRIAMCINOLONE 0.1% CREAM 80 GM TUBE TOPICAL SCH (08:25)
--- NOTE | 2020-09-09 08:51 | P.PN ---
Subjective Progress Note Date: 09/09/20 Principal diagnosis: Bilateral pneumonia, left trapped lung with fungal empyema growing Aspergillus species, acute hypoxic respiratory failure with sepsis on admission. Radius his tory of multiple admissions for pneumonia with empyema on the left and previous bilateral chest tube placement in December 2019 with cultures positive for strep pneumonia, rheumatoid arthritis with rheumatoid lung, hypertension, hypothyroidism, DVT, previous tobacco dependence, family history of lung cancer, and recent hospitalization for hypotension, dehydration, acute kidney injury requiring dialysis POD #18 left-sided thoracentesis by interventional radiology POD #11 left Pleurx catheter placement with irrigation of pleural space and instillation of amphotericin B solution under thoracoscopic guidance Extensive subcutaneous emphysema Persistent atrial flutter with RVR, status post electrical cardioversion, status post radiofrequency ablation The patient is currently sitting up in a recliner on the cardiac stepdown unit in no acute distress. Denies pain, shortness of breath, appears comfortable. Currently in sinus rhythm and hemodynamically stable. Left sided Pleurx catheter capped yesterday. Patient denies any change in his condition since capping pleurx, no increased subcutaneous emphysema. States he has been ambulatory in hallway without difficulty. Wants to go home Objective - Vital Signs Vital signs: Vital Signs Temp 98.2 F 09/09/20 04:00 Pulse 69 09/09/20 04:00 Resp 18 09/09/20 04:00 BP 82/51 09/09/20 04:00 Pulse Ox 96 09/09/20 04:00 Intake & Output 09/08/20 09/09/20 09/09/20 18:59 06:59 18:59 Intake Total 862 12 Output Total 470 400 Balance 392 -388 Weight 101.9 kg Intake: IV 10 12 0.9 12 Invasive Line 7 10 Oral 852 Output: Chest Tube Drainage 70 Left Mid-Axillary Chest 70 Drainage 0 Left Chest 0 Urine 400 400 Other: Voiding Method Toilet Urinal # Voids 1 - Constitutional General appearance: Present: cooperative, no acute distress - Respiratory Details: Lungs sounds diminished in the bases bilaterally. Respirations even, nonlabored. Currently on 2 L nasal cannula with oxygen saturation 96%. Able to achieve 750 mL on his incentive spirometry. Strong cough. Left sided Pleurx catheter present, capped. Subcutaneous emphysema to both arms, chest and back remains, but does appear slightly better - Cardiovascular Details: S1, S2 present. Regular rate and rhythm, sinus rhythm on telemetry with heart rate in the high 80-90s. Palpable peripheral pulses bilaterally. Bilateral lower extremity edema present. No calf pain or tenderness noted. - Gastrointestinal Gastrointestinal Comment(s): Abdomen soft, nontender, nondistended. Active bowel sounds present 4 quadrants. Tolerating diet. Positive bowel movement - Genitourinary Genitourinary Comment(s): Continues to void - Integumentary Integumentary Comment(s): Skin is warm and dry with evidence of good perfusion - Neurologic Neurologic: Present: CNII-XII intact - Musculoskeletal Musculoskeletal: Present: gait normal, strength equal bilaterally - Psychiatric Psychiatric: Present: A&O x's 3, appropriate affect, intact judgment & insight - Allied health notes Allied health notes reviewed: nursing - Labs CBC & Chem 7: 09/07/20 07:40 09/07/20 07:40 - Imaging and Cardiology Chest x-ray: report reviewed, image reviewed Assessment and Plan Assessment: 1. 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 Acute hypoxic respiratory failure with sepsis on admission 3. Multiple admissions for pneumonia with empyema on the left and previous bilateral chest tube placement in December 2019 with cultures positive for strep pneumonia 4. Rheumatoid arthritis with rheumatoid lung 5. Hypertension, currently hypotensive, requiring pressors on admission 6. Hypothyroidism 7. History of DVT 8. Previous tobacco dependence 9. Family history of lung cancer 10. Recent hospitalization for hypotension, dehydration, acute kidney injury requiring dialysis 11. Extensive subcutaneous emphysema, related to co-morbid condition of rheumatoid lung, common occurrence after lung surgery 12. Hydropneumothorax, expected given patient's history of rheumatoid lung with trapped lung for quite some time 13. Persistent atrial flutter with RVR, status post electrical cardioversion and radiofrequency ablation, currently sinus Plan: 1. PleurX catheter capped yesterday 2. Encourage incentive spirometry. Bronchodilators per pulmonology 3. Eliquis per cardiology 4. Continue voriconazole per infectious disease recommendations, transitioned to oral 5. Increase activity as tolerated, ambulate in hallway 6. Management of other comorbidities per primary care service. 7. Teaching done with patient and regarding Pleurx catheter care. Will drain today with patient's for further teaching 8. Patient may be discharged to home from our standpoint. He should have his PleurX drained daily for at least the first week, then per symptoms. Time with Patient: Greater than 30
[2020-09-09 09:46] VITALS: BP 87/51; PULSE 90; TEMP 98.1
--- NOTE | 2020-09-09 10:08 | P.PN ---
Subjective Progress Note Date: 09/08/20 This is a 60-year-old male patient requesting my service with past medical history of rheumatoid arthritis on Arava that was diagnosed when he was 37 year old initially was started on Methotrexate that he could not tolerate then placed on Embrel but he developed side effects and finally was tried on Humira injection but he developed neurologic sided effects and was hospitaized at [facility] for quiet some time, rheumatoid lung disease, previous history of loculated empyema with chest tube placement in January 2020, hypertension, hypothyroidism, history of DVT, remote history of tobacco use and dependence, was recently hospitalized at [facility] after he was admitted for an acute kidney injury with significant metabolic acidosis associated with the elevated creatinine and elevated BUN and hypotension at that time he was seen and evaluated by pulmonary and critical care medicine, he had a central line placed and at that time, he was placed on Levophed drip he was p laced on IV anabiotic as well but the patient recovered very fast and he had an echocardiogram that showed normal LV function and segmental hypokinesia, he was supposed to follow-up with Dr. 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 and he had an episode when he was dizzy lightheaded and an episode of vomiting as well and he was sent to the emergency department for evaluation had a computed tomography of the chest as well as abdomen and pelvis that showed a thick walled pleural cavities posteriorly in the lower lungs with left-sided air-fluid level that has diminished in size from the prior computed tomography scan when he was in the hospital a few weeks back there is also associated compressive atelectasis and chronic consultation with multifocal areas of reticular nodular opacity in the upper lungs with a slight nodularity of the left upper lobe again this area of focal consultation has improved from the previous study that was done few weeks ago, patient was started on IV antibiotic with vancomycin and Zosyn as well as IV fluid, he was seen in consultation by pulmonary critical care in the emergency department as the patient blood pressure dropped and that he'll be transferred to the intensive care unit at this point in time I had long conve rsation with the patient and his at the bedside and the patient may need to have a chest tube placed for his possible right empyema, he did receive 3 L normal saline in the ER, and his blood pressure is marginal he may need to go on pressors if not recovered. 08/20:patient is sitting up in chair feeling about the same , complains of increased pain in the righ elbow, was seen earlier by pulmonary and the plan was to go for US-Guided left thoracenthesis due to to loculated left pleural effu unique and possible empyema, may need VATS, he denies any chest pain or shortness of breath, no abdominal pain nausea, vomiting or diarrhea, still have diarrhea negative for C.Diff, he seems to have accept to stay in the hospital this time as long as he needed to. 08/21: Patient sitting up in the recliner complaining of increased pain in his joints due to his rheumatoid arthritis with increased synovitis in both wrists both elbows and both shoulders he was started on hydrocortisone 100 mg IV push every 8 hours, to try to help with his blood pressure as well as his phonation, he is maintained on Homer 5/325 mg one tablet orally every 6 hours as needed for pain control, patient denies any chest pain is less short of breath, he continues to have increased coughing with yellow from production of green phlegm production, he had no fever or chills at this time he continues to be on Levothroid drip, patient has appeared to have increased swelling in both lower extremities as well as both ankles, he is maintained on IV antibiotic in the form of vancomycin as well as cefepime, infectious disease is following, patient is scheduled to go for ultrasound guidance thoracentesis of the left loculated pleural effusion tomorrow morning. 08/22: Patient remains in the intensive care unit. He has been afebrile, heart rate 100, blood pressure 95/62, pulse ox 97% on 2 L nasal cannula. Hemoglobin 8.8 and leukocytosis resolved. Creatinine 0.76, electrolytes normal. Sputum culture is positive for Aspergillus species. Blood culture showing no growth. Patient underwent diagnostic thoracentesis with interventional radiology today with removal of 45 mL of cloudy white fluid. Chest x-ray reveals no complications following left thoracentesis. Fluid has been sent for culture and cytology. Consult in place for cardiothoracic surgery to evaluate for VATS with decortication. 08/23: Patient remains in the intensive care unit. He did receive 1 dose of IV Lasix this morning ordered by nephrology. He is followed by cardiothoracic surgery was no plan for surgical intervention. ID has recommended cefepime and vancomycin for now. Expect antifungal agent ended as well. Patient denies any significant shortness of breath. He is comfortable sitting in a chair. Patient is having minimal cough and minimal sputum. Patient is achieving 1000 ml on incentive spirometry. Culture and cytology reports remain pending from thoracentesis. Repeat chest x-ray reveals patchy peripheral lung with lung zone and lower lung zone infiltrates persist unchanged. Patient has been afebrile, heart rate in the 90s and low 100s, pulse ox 91 on room air. 23: Repeat chest x-ray reveals left-sided basilar loculated pneumothorax, stable. Bilateral lung infiltrates. Correlate for pneumonia and atelectasis. WBC 9, hemoglobin 9.5. Potassium 3.4 and will be replaced. Patient is continued on cefepime and vancomycin per Dr. Blanton's recommendations. Patient in reaching 1000 on incentive spirometry. Patient is scheduled to see Dr. Dubois tomorrow. Cefepime and vancomycin had been discontinued by Dr. Blanton and started on Voriconazole. 08/25: A-Team was called this morning regarding elevated heart rate, EKG was atrial flutter with RVR and 150 bpm and patient was transferred to ICU as an overflow for the cardiac stepdown unit, started on Cardizem drip and consult with cardiology. Heart rate was improved with Cardizem and patient also received amiodarone bolus 300 mg. Patient denies any worsening shortness of breath, cough or congestion. No chest pain or palpitations. Patient is resting comfortably. 09, hemoglobin 8.8, potassium 3.4 replaced. Creatinine 0.89. 08/26: Patient remains in the intensive care unit. He continues to be in atrial flutter with 21 conduction rate. He is on heparin drip and amiodarone. He is currently in and out of atrial flutter with RVR. Cardiology is following closely and may consider cardioversion tomorrow. WBC 16.6, hgb 9.8, plt 374, sodium 143, potassium 3.9, creatinine 0.88. He has been afebrile, heart rate has been at times marginal, pulse ox 90% on room air. Patient denies having any fever or chills, no shortness of breath, no cough. No chest pain. Patient is followed by cardiothoracic surgery and plan is for left-sided PleurX catheter placement which is scheduled for Saturday. 08/29: Patient is scheduled for PleurX catheter placement this afternoon. Cardiology may schedule him for cardioversion. Dr. Woodall is planning on oral antimicrobials at the time of discharge. Patient is bringing up quite a bit of sputum. He has been afebrile, heart rate 68, blood pressure 100/67, pulse ox 93% on 1 L nasal cannula. WBC 21, hemoglobin 9.6, platelet count 325. Potassium 3, BUN 28 creatinine 0.8. 08/30: Patient is status post PleurX catheter. Patient has been afebrile, heart rate 106, blood pressure 85/53. Pulse ox 97% on 2 L. Patient is known to be back in atrial fibrillation at rate of 122. He did go for cardioversion today for atrial flutter. Patient states he has a little pain in the side for which she is taking Homer. Not bad today. Patient has subcutaneous edema to bilateral chest. He denies having any headache. BUN 27 creatinine 0.79. Blood sugar 90-126. 08/31: Patient denies chest pain or shortness of breath. He is reaching 1250 on IS. PleurX draining small amount of sanguinous fluid. Patient is in atrial flutter. Dr. Prieto is planning for EP study and ablation on and plan to continue eliquis. Patient is also on Lopressor 25 mg 3 times daily. Patient has been afebrile, heart rate 97, blood pressure 106/65, pulse ox 98% on room air. Blood sugars running between 112 and 67. Patient is covered with Voriconazole. Lac-Hydrin added for bilateral legs. 09/01: Patient is status post successful atrial flutter ablation with Dr. Prieto. Cardiology has recommended amlodipine 100 mg twice daily for 1 month. 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 Metoprolol was decreased to 25 mg twice daily. Patient is on eliquis 5 mg twice daily. Patient has been afebrile, heart rate 64, blood pressure 121/77. Potassium 2.3 and replaced. Repeat level will be obtained this evening. Pleurx catheter remains in place connected to Pleur-evac with intermittent air leak. He has minimal output. Tyrone martell is continued on Advair, so for Aspergillus fungal infection managed by Dr. Blanton. He is planning on oral antimicrobial at the time of discharge. 09/02: Patient is resting in recliner. Patient's is at bedside. Patient states he walked in hallway and felt well but did have shortness of breath with activity. He continues to have subcutaneous emphysema. He continues to have air leak. WBC is 15.8, hemoglobin 10, platelet count 293. Potassium is 3 and will be replaced. BUN 27 creatinine 0.82. Patient has been afebrile, heart rate 79, blood pressure 114/66, pulse ox 90% on room air. Chest x-ray is stable findings. 09/03: Patient is sitting up in his recliner he is quite depressed because he stated the hospital for almost 2 weeks, he wanted to go home, he continues to have some leak in the chest tube on the left side, we will maintain the patient on voriconazole, and he has to take that for the next 4 weeks and possibly longer would leave that up to the discretion of infectious disease, I spoke with his as well as himself about the prognosis and the patient may need to send to the hospital until Saturday , meanwhile continue with physical therapy evaluation, anticipating home health care with physical therapy at home. 09/04: Patient is sitting in the recliner does not appear in acute distress, he continues to have the chest tube in the left side with minimal leakage, hopefully it will be removed in the next 24 hours and can be discharged home, he is maintained on voriconazole for his Aspergillus fumigate as, continue with increased activity, continue to monitor the patient very closely, anticipate discharge in 1-2 days. 09/05: Patient remains with Pleurx catheter to wall suction with intermittent leak. He also continues to have subcutaneous emphysema not worsening. Patient is very anxious to leave the hospital and go home. Discussed dosing of Amiodarone with Dr. Prieto. Amiodarone will be discontinued at the time of discharge. Patient is currently on Lasix 40 IVP daily. Lower extremity edema is improving. WBC 13.0, hemoglobin 9.6, electrolytes unremarkable, with the exception of the CO2 of 35, renal profile is unremarkable, liver enzymes show AST 146, alkaline phosphatase 495. 09/06: The chest x-ray reveals no definite large pneumothorax. Small left apical pneumothorax. Could be considered bilateral peripheral infiltrate in right upper lobe. Patient has been afebrile, heart rate 93, blood pressure 90/54, pulse ox 97% on 2 L nasal cannula. Heart monitor sinus rhythm. Repeat blood work ordered for tomorrow. Pleurx catheter continues to have a slight intermittent air leak. Patient continues to have subcutaneous emphysema without worsening. 09/07: Patient is currently off suction the time of evaluation. Cardiothoracic surgery is planning for repeat chest x-ray tomorrow and possibly Pleurx catheter. Patient is upset today and really wants to go home. His pulse ox is 8789% at rest without oxygen. 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 He has been afebrile, heart rate 93, blood pressure 96/56. Leukocytosis has resolved with WBC of 9.8, hemoglobin 9.3. Potassium 3.7, BUN 14 and creatinine 0.77. Total bilirubin 1.4. AST 106, ALT 85, avoid phosphatase 513. Discussed with Dr. Blanton and agreed to transition IV antifungal to oral and we will discontinue amiodarone. Possible discharge home tomorrow. 09/08: Patient has been afebrile, HR 88, BP 83/53, PO 96% 2L n/c. Monitor is a sinus rhythm. Repeat chest x-ray reveals persistent extensive bilateral subcutaneous emphysema. Air-fluid levels no seen in the bilateral lower lungs suggesting underlying loculated hydropneumothorax is on both sides. Pleural edge better seen in the left base with continued left-sided Pleurx catheter. Patchy airspace disease throughout the right lung persist. Pleurx catheter was capped yesterday afternoon. He has had no increase of cutaneous emphysema. Patient is anxious to go home. We're waiting for clearance from cardiothoracic surgery for discharge. Objective - Vital Signs Vital signs: Vital Signs Temp 98.0 F 09/08/20 03:44 Pulse 88 02/18/21 03:44 Resp 18 09/08/20 03:44 BP 83/53 09/08/20 03:44 Pulse Ox 96 09/08/20 03:44 Intake & Output 09/07/20 09/08/20 09/08/20 18:59 06:59 18:59 Intake Total 1700 10 Output Total 1190 305 Balance 510 -295 Weight 99.3 kg Intake: IV 20 10 0.9 10 Invasive Line 6 20 Oral 1680 Output: Chest Tube Drainage 110 5 Left Mid-Axillary Chest 110 5 Drainage 30 0 Left Chest 30 0 Urine 1050 300 Other: Voiding Method Toilet Urinal # Voids 1 - Exam Review of Systems Constitutional: Reports anorexia, Reports chronic pain, Reports fatigue, denies weakness, Reports weight loss Eyes: denies blurred vision, denies bulging eye, denies decreased vision Ears, nose, mouth and throat: Denies dysphagia, Denies sore throat Respiratory: Reports dyspnea, with exertion Reports respiratory infections, Denies congestion, Denies cough with sputum, Denies home oxygen, Denies sleep apnea, Denies snoring, Denies wheezing Cardiac: No chest pain. No palpitations. No lower extremity edema. No syncopal episodes. Gastrointestinal: Reports bloating, Reports change in bowel habits, Reports d iarrhea, Reports early satiety, Reports indigestion, Reports loss of appetite, Reports nausea, Reports vomiting, Denies abdominal pain, Denies belching, Denies heartburn, Denies hematemesis, Denies hematochezia, Denies melena Genitourinary: Denies dysuria, Denies nocturia Musculoskeletal: Denies myalgias Musculoskeletal: absent: ankle pain, ankle stiffness, ankle swelling, elbow pain, elbow stiffness, elbow swelling, foot pain, foot stiffness, foot swelling, hand pain, hand stiffness, hand swelling, hip pain, hip stiffness, hip swelling, knee pain, knee stiffness, knee swelling, shoulder pain, shoulder stiffness, olivia ulder swelling, wrist pain, wrist stiffness, wrist swelling Integumentary: Denies pruritus, Denies rash, subcutaneous emphysema Neurological: Denies numbness, Denies weakness Psychiatric: Denies anxiety, Denies depression Endocrine: Denies fatigue, Denies weight change Physical examination: General: This is a 60-year-old male. Patient is resting in a recliner and appears to be comfortable. HEENT: head ia atraumatic normocephalic, Pupils were equal round reactive to light and accommodations , extra ocular muscle movement were intact, mucous membranes of the mouth are somewhat dry. Neck: supple no JVP. Chest: decreased breath sounds at he bases no expiratory wheezes no chest wall tendernes or intercostal retractions. PleurX cath in place,. Positive subcutaneous emphysema. Heart: first heart sound is depressed, second heart sound is normal tachycardic and irregular there is BIRD 2/6 located at the left sternal border. Abdomen: soft, mild tenderness to the left lower quadrant positive bowel sounds, no guarding or rebound tenderness, no hepatosplenomegaly. Extremities: there is 1+ edema or calf tenderness DP+ 2 Bilaterally, there is what appears to be a charcot joint in the right foot form arch collapse. Neurologic examination: patient is awake , alert and oriented X 3 CN II-XII are grossly intact, muscle power 4/5 in bilateral upper and lower extremities, deep tendon reflexes were normal. - Labs CBC & Chem 7: 09/07/20 07:40 09/07/20 07:40 Labs: Abnormal Lab Results - Last 24 Hours (Table) 09/07/20 09/07/20 Range/Units 07:40 07:40 RBC 3.48 L (4.30-5.90) m/uL Hgb 9.3 L (13.0-17.5) gm/dL Hct 31.5 L (39.0-53.0) % MCHC 29.6 L (31.0-37.0) g/dL RDW 18.8 H (11.5-15.5) % Carbon Dioxide 36 H (22-30) mmol/L Calcium 8.2 L (8.4-10.2) mg/dL Total Bilirubin 1.4 H (0.2-1.3) mg/dL AST 106 H (17-59) U/L ALT 85 H (4-49) U/L Alkaline Phosphatase 513 H (38-126) U/L Total Protein 5.8 L (6.3-8.2) g/dL Albumin 2.5 L (3.5-5.0) g/dL Assessment and Plan Assessment: 1. Acute hypoxemic respiratory failure secondary to loculated left-sided pleural effusion and fungal empyema with what appears to be recurrent pneumonia. Continue Voriconazole oral 400 mg twice daily per Dr. Blanton with plan for oral at the time of discharge. Discontinue amiodarone 2. Lactic acidosis. Resolved, repeat lactic acid is back to normal. 3. Sepsis with septic shock and was stable. Patient has been weaned off Levothroid drip. 4. Acute kidney injury due to poor oral intake of fluid as well as hypotension with acute tubular necrosis. Patient is on IV fluid, continue to monitor the patient CMP continue to monitor urine output. Nephrology is following. 5. Leukocytosis secondary to severe sepsis secondary to empyema. Patient is off antibiotic. 6. Persistent atrial flutter with RVR. Status post cardioversion, converted back. Status post ablation completed by Dr. Prieto. Patient to continue eliquis. Amiodarone has been discontinued. Cardiology consult appreciated. 7. Rheumatoid arthritis and rheumatoid lung. Arava and Xeljanz had been on hold since April. 8. History of empyema with Streptococcus requiring chest tube. 9. Hypertension and hypertensive cardiovascular disease. Lasix 40 mg IVP daily. 10. Hypothyroidism . we will continue with Synthroid 150 mcg orally daily. 11. Elevated liver function tests. Plan to discontinue amiodarone and transi tion voriconazole to oral. 12. DVT prophylaxis. Eliquis and SCDs. 13. GI prophylaxis. we will continue with Protonix 40 mg oral daily. Discharge plan: home on Saturday Impression and plan of care have been directed as dictated by the signing physician. Yumiko Brown nurse practitioner acting as scribe for signing physician.
--- NOTE | 2020-09-09 10:17 | P.DS ---
Providers Date of admission: 08/19/20 12:02 Expected date of discharge: 09/09/20 Attending physician: Minal Marie Consults: 08/19/20 10:54 Consult Physician Routine Consulting Provider: Orlin Dougherty Consult Reason/Comments: dyspnea Do you want consulting provider notified?: Yes 08/19/20 10:55 Consult Physician Routine Consulting Provider: Kalee Kaur Consult Reason/Comments: hospitalist request Do you want consulting provider notified?: Yes 08/19/20 11:07 Consult Physician Routine Consulting Provider: Russ Blanton Consult Reason/Comments: SIRS Do you want consulting provider notified?: Yes 08/22/20 09:02 Consult Physician Routine Consulting Provider: Sariah Graham Consult Reason/Comments: recurrent pneumonia, kim hydropneumothorax Do you want consulting provider notified?: Yes Primary care physician: Minal Marie [facility] Course: This is a 60-year-old male patient requesting my service with past medical history of rheumatoid arthritis on Arava that was diagnosed when he was 37 year old initially was started on Methotrexate that he could not tolerate then placed on Embrel but he developed side effects and finally was tried on Humira injection but he developed neurologic sided effects and was hospitaized at [facility] for quiet some time, rheumatoid lung disease, previous history of loculated empyema with chest tube placement in January 2020, hypertension, hypothyroidism, history of DVT, remote history of tobacco use and dependence, was recently hospitalized at [facility] after he was admitted for an acute kidney injury with significant metabolic acidosis associated with the elevated creatinine and elevated BUN and hypotension at that time he was seen and evaluated by pulmonary and critical care medicine, he had a central line placed and at that time, he was placed on Levophed drip he was placed on IV anabiotic as well but the patient recovered very fast and he had an echocardiogram that showed normal LV function and segmental hypokinesia, he was supposed to follow-up with Dr. 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 and he had an episode when he was dizzy lightheaded and an episode of vomiting as well and he was sent to the emergency department for evaluation had a computed tomography of the chest as well as abdomen and pelvis that showed a thick walled pleural cavities posteriorly in the lower lungs with left-sided air-fluid level that has diminished in size from the prior computed tomography scan when he was in the hospital a few weeks back there is also associated compressive atelectasis and chronic consultation with multifocal areas of reticular nodular opacity in the upper lungs with a slight nodularity of the left upper lobe again this area of focal consultation has improved from the previous study that was done few weeks ago, patient was started on IV antibiotic with vancomycin and Zosyn as well as IV fluid, he was seen in consultation by pulmonary critical care in the emergency department as the patient blood pressure dropped and that he'll be transferred to the intensive care unit at this point in time I had long conversation with the patient and his at the bedside and the patient may need to have a chest tube placed for his possible right empyema, he did receive 3 L normal saline in the ER, and his blood pressure is marginal he may need to go on pressors if not recovered. 08/20:patient is sitting up in chair feeling about the same , complains of increased pain in the righ elbow, was seen earlier by pulmonary and the plan was to go for US-Guided left thoracenthesis due to to loculated left pleural effusion and possible empyema, may need VATS, he denies any chest pain or shortness of breath, no abdominal pain nausea, vomiting or diarrhea, still have diarrhea negative for C.Diff, he seems to have accept to stay in the hospital this time as long as he needed to. 08/21: Patient sitting up in the recliner complaining of increased pain in his joints due to his rheumatoid arthritis with increased synovitis in both wrists both elbows and both shoulders he was started on hydrocortisone 100 mg IV push every 8 hours, to try to help with his blood pressure as well as his phonation, he is maintained on [place] 5/325 mg one tablet orally every 6 hours as needed for pain control, patient denies any chest pain is less short of breath, he continues to have increased coughing with yellow from production of green phlegm production, he had no fever or chills at this time he continues to be on Levothroid drip, patient has appeared to have increased swelling in both lower extremities as well as both ankles, he is maintained on IV antibiotic in the form of vancomycin as well as cefepime, infectious disease is following, patient is scheduled to go for ultrasound guidance thoracentesis of the left loculated pleural effusion tomorrow morning. 2/1: Patient remains in the intensive care unit. He has been afebrile, heart rate 100, blood pressure 95/62, pulse ox 97% on 2 L nasal cannula. Hemoglobin 8.8 and leukocytosis resolved. Creatinine 0.76, electrolytes normal. Sputum culture is positive for Aspergillus species. Blood culture showing no growth. Patient underwent diagnostic thoracentesis with interventional radiology today with removal of 45 mL of cloudy white fluid. Chest x-ray reveals no complications following left thoracentesis. Fluid has been sent for culture and cytology. Consult in place for cardiothoracic surgery to evaluate for VATS with decortication. 22: Patient remains in the intensive care unit. He did receive 1 dose of IV Lasix this morning ordered by nephrology. He is followed by cardiothoracic surgery was no plan for surgical intervention. ID has recommended cefepime and vancomycin for now. Expect antifungal agent ended as well. Patient denies any significant shortness of breath. He is comfortable sitting in a chair. Patient is having minimal cough and minimal sputum. Patient is achieving 1000 ml on incentive spirometry. Culture and cytology reports remain pending from thoracentesis. Repeat chest x-ray reveals patchy peripheral lung with lung zone and lower lung zone infiltrates persist unchanged. Patient has been afebrile, heart rate in the 90s and low 100s, pulse ox 91 on room air. 2/3: Repeat chest x-ray reveals left-sided basilar loculated pneumothorax, stable. Bilateral lung infiltrates. Correlate for pneumonia and atelectasis. WBC 9, hemoglobin 9.5. Potassium 3.4 and will be replaced. Patient is continued on cefepime and vancomycin per Dr. Blanton's recommendations. Patient in reaching 1000 on incentive spirometry. Patient is scheduled to see Dr. Dubois tomorrow. Cefepime and vancomycin had been discontinued by Dr. Blanton and started on Voriconazole. 08/25: A-Team was called this morning regarding elevated heart rate, EKG was atrial flutter with RVR and 150 bpm and patient was transferred to ICU as an overflow for the cardiac stepdown unit, started on Cardizem drip and consult with cardiology. Heart rate was improved with Cardizem and patient also received amiodarone bolus 300 mg. Patient denies any worsening shortness of breath, cough or congestion. No chest pain or palpitations. Patient is resting comfortably. 09, hemoglobin 8.8, potassium 3.4 replaced. Creatinine 0.89. 08/26: Patient remains in the intensive care unit. He continues to be in atrial flutter with 21 conduction rate. He is on heparin drip and amiodarone. He is currently in and out of atrial flutter with RVR. Cardiology is following closely and may consider cardioversion tomorrow. WBC 16.6, hgb 9.8, plt 374, sodium 143, potassium 3.9, creatinine 0.88. He has been afebrile, heart rate has been at times marginal, pulse ox 90% on room air. Patient denies having any fever or chills, no shortness of breath, no cough. No chest pain. Patient is followed by cardiothoracic surgery and plan is for left-sided PleurX catheter placement which is scheduled for Saturday. 08/29: Patient is scheduled for PleurX catheter placement this afternoon. Cardiology may schedule him for cardioversion. Dr. Woodall is planning on oral antimicrobials at the time of discharge. Patient is bringing up quite a bit of sputum. He has been afebrile, heart rate 68, blood pressure 100/67, pulse ox 93% on 1 L nasal cannula. WBC 21, hemoglobin 9.6, platelet count 325. Potassium 3, BUN 28 creatinine 0.8. 08/30: Patient is status post PleurX catheter. Patient has been afebrile, heart rate 106, blood pressure 85/53. Pulse ox 97% on 2 L. Patient is known to be back in atrial fibrillation at rate of 122. He did go for cardioversion today for atrial flutter. Patient states he has a little pain in the side for which she is taking [place]. Not bad today. Patient has subcutaneous edema to bilateral chest. He denies having any headache. BUN 27 creatinine 0.79. Blood sugar 90-126. 08/31: Patient denies chest pain or shortness of breath. He is reaching 1250 on IS. PleurX draining small amount of sanguinous fluid. Patient is in atrial flutter. Dr. Prieto is planning for EP study and ablation on and plan to continue eliquis. Patient is also on Lopressor 25 mg 3 times daily. Patient has been afebrile, heart rate 97, blood pressure 106/65, pulse ox 98% on room air. Blood sugars running between 112 and 67. Patient is covered with Voriconazole. Lac-Hydrin added for bilateral legs. 09/01: Patient is status post successful atrial flutter ablation with Dr. Prieto. Cardiology has recommended amlodipine 100 mg twice daily for 1 month. 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 Metoprolol was decreased to 25 mg twice daily. Patient is on eliquis 5 mg twice daily. Patient has been afebrile, heart rate 64, blood pressure 121/77. Potassium 2.3 and replaced. Repeat level will be obtained this evening. Pleurx catheter remains in place connected to Pleur-evac with intermittent air leak. He has minimal output. Patient is continued on Advair, so for Aspergillus fungal infection managed by Dr. Blanton. He is planning on oral antimicrobial at the time of discharge. 09/02: Patient is resting in recliner. Patient's is at bedside. Patient states he walked in hallway and felt well but did have shortness of breath with activity. He continues to have subcutaneous emphysema. He continues to have air leak. WBC is 15.8, hemoglobin 10, platelet count 293. Potassium is 3 and will be replaced. BUN 27 creatinine 0.82. Patient has been afebrile, heart rate 79, blood pressure 114/66, pulse ox 90% on room air. Chest x-ray is stable findings. 09/03: Patient is sitting up in his recliner he is quite depressed because he stated the hospital for almost 2 weeks, he wanted to go home, he continues to have some leak in the chest tube on the left side, we will maintain the patient on voriconazole, and he has to take that for the next 4 weeks and possibly longer would leave that up to the discretion of infectious disease, I spoke with his as well as himself about the prognosis and the patient may need to send to the hospital until Saturday , meanwhile continue with physical therapy evaluation, anticipating home health care with physical therapy at home. 09/04: Patient is sitting in the recliner does not appear in acute distress, he continues to have the chest tube in the left side with minimal leakage, hopefully it will be removed in the next 24 hours and can be discharged home, he is maintained on voriconazole for his Aspergillus fumigate as, continue with increased activity, continue to monitor the patient very closely, anticipate discharge in 1-2 days. 09/05: Patient remains with Pleurx catheter to wall suction with intermittent leak. He also continues to have subcutaneous emphysema not worsening. Patient is very anxious to leave the hospital and go home. Discussed dosing of Amiodarone with Dr. Prieto. Amiodarone will be discontinued at the time of discharge. Patient is currently on Lasix 40 IVP daily. Lower extremity edema is improving. WBC 13.0, hemoglobin 9.6, electrolytes unremarkable, with the exception of the CO2 of 35, renal profile is unremarkable, liver enzymes show AST 146, alkaline phosphatase 495. 09/06: The chest x-ray reveals no definite large pneumothorax. Small left apical pneumothorax. Could be considered bilateral peripheral infiltrate in right upper lobe. Patient has been afebrile, heart rate 93, blood pressure 90/54, pulse ox 97% on 2 L nasal cannula. Heart monitor sinus rhythm. Repeat blood work ordered for tomorrow. Pleurx catheter continues to have a slight intermittent air leak. Patient continues to have subcutaneous emphysema without worsening. 09/07: Patient is currently off suction the time of evaluation. Cardiothoracic surgery is planning for repeat chest x-ray tomorrow and possibly Pleurx catheter. Patient is upset today and really wants to go home. His pulse ox is 8789% at rest without oxygen. daycare manager to attempt to set up home oxygen therapy. He has been afebrile, heart rate 93, blood pressure 96/56. Leukocytosis has resolved with WBC of 9.8, hemoglobin 9.3. Potassium 3.7, BUN 14 and creatinine 0.77. Total bilirubin 1.4. AST 106, ALT 85, avoid phosphatase 513. Discussed with Dr. Blanton and agreed to transition IV antifungal to oral and we will discontinue amiodarone. Possible discharge home tomorrow. 09/08: Patient has been afebrile, HR 88, BP 83/53, PO 96% 2L n/c. Monitor is a sinus rhythm. Repeat chest x-ray reveals persistent extensive bilateral subcutaneous emphysema. Air-fluid levels no seen in the bilateral lower lungs suggesting underlying loculated hydropneumothorax is on both sides. Pleural edge better seen in the left base with continued left-sided Pleurx catheter. Patchy airspace disease throughout the right lung persist. Pleurx catheter was capped yesterday afternoon. He has had no increase of cutaneous emphysema. Patient is anxious to go home. We're waiting for clearance from cardiothoracic surgery for discharge. 09/09: Has been afebrile, heart rate 90, blood pressure 87/51, pulse ox 96% on 2 L. 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 Left-sided Pleurx catheter is capped. No increase of today's emphysema. Repeat chest x-ray reveals loculated left lateral base pneumothorax appears stable. Bilateral air-fluid levels within the lung bases. Patient has been cleared by cardiothoracic surgery. Patient is to have his Pleurx drain daily for the first week and then her symptoms. Home oxy gen therapy has been arranged. Patient will be discharged home today in stable condition. Discharge Diagnoses: 1. Acute hypoxemic respiratory failure secondary to loculated left-sided pleural effusion and fungal empyema with what appears to be recurrent pneumonia. 2. Lactic acidosis. 3. Sepsis with septic shock. 4. Acute kidney injury due to poor oral intake of fluid as well as hypotension with acute tubular necrosis. 5. Leukocytosis secondary to severe sepsis secondary to empyema. 6. Persistent atrial flutter with RVR. Status post cardioversion, converted back. Status post ablation completed by Dr. Prieto. 7. Rheumatoid arthritis and rheumatoid lung. 8. History of empyema with Streptococcus requiring chest tube. 9. Hypertension and hypertensive cardiovascular disease. 10. Hypothyroidism. 11. Elevated liver function tests. 12. Chronic hypoxic respiratory failure. Patient requires oxygen to manage pleural effusion and fungal empyema. Discharge plan: home with [facility] care. Impression and plan of care have been directed as dictated by the signing physician. Yumiko Brown nurse practitioner acting as scribe for signing p hysician. Patient Condition at Discharge: Critical Plan - Discharge Summary Discharge Rx Participant: No New Discharge Prescriptions: New Apixaban [Eliquis] 5 mg PO BID #60 tab Ammonium Lactate Lotion [Lac-Hydrin 12% Lotion] 1 applic TOPICAL BID applic Metoprolol Tartrate [Lopressor] 12.5 mg PO BID #60 tab Voriconazole [Vfend] 400 mg PO Q12HR #60 tab Continue Levothyroxine Sodium [Synthroid] 150 mcg PO DAILY Albuterol Inhaler [Ventolin Hfa Inhaler] 2 puff INHALATION RT-QID PRN PRN Reason: Shortness Of Breath Cholecalciferol [Vitamin D3 (25 Mcg = 1000 Iu)] 2,000 unit PO HS Ipratropium-Albuterol Nebulize [Duoneb 0.5 mg-3 mg/3 ml Soln] 3 ml INHALATION RT-QID PRN PRN Reason: Shortness Of Breath Ascorbic Acid [Vitamin C] 2,000 mg PO HS Aspirin 81 mg PO HS chew Ondansetron [Zofran] 4 mg PO QID PRN PRN Reason: Nausea Discontinued Metoprolol Succinate (ER) [Toprol XL] 25 mg PO DAILY #30 tab.er.24h Levofloxacin [Levaquin] 250 mg PO DAILY Discharge Medication List Levothyroxine Sodium [Synthroid] 150 mcg PO DAILY 10/17/16 [History] Albuterol Inhaler [Ventolin Hfa Inhaler] 2 puff INHALATION RT-QID PRN 12/30/19 [History] Ascorbic Acid [Vitamin C] 2,000 mg PO HS 07/13/20 [History] Cholecalciferol [Vitamin D3 (25 Mcg = 1000 Iu)] 2,000 unit PO HS 07/13/20 [History] Ipratropium-Albuterol Nebulize [Duoneb 0.5 mg-3 mg/3 ml Soln] 3 ml INHALATION RT-QID PRN 07/13/20 [History] Aspirin 81 mg PO HS chew 08/11/20 [Rx] Ondansetron [Zofran] 4 mg PO QID PRN 08/19/20 [History] Ammonium Lactate Lotion [Lac-Hydrin 12% Lotion] 1 applic TOPICAL BID applic 09/07/20 [Rx] Apixaban [Eliquis] 5 mg PO BID #60 tab 09/07/20 [Rx] Metoprolol Tartrate [Lopressor] 12.5 mg PO BID #60 tab 09/07/20 [Rx] Voriconazole [Vfend] 400 mg PO Q12HR #60 tab 09/07/20 [Rx] Follow up Appointment(s)/Referral(s): Cody Prieto MD [STAFF PHYSICIAN] - 1 Week [facility], [NON-STAFF] - Oswaldo Dubois MD [STAFF PHYSICIAN] - As Needed ( Once drainage is less than 50 mL three times in a row, notify the surgery office for possible removal.) Minal Marie MD [Primary Care Provider] - 1 Week Activity/Diet/Wound Care/Special Instructions: 1. Home Care is ordered, they will obtain new bottles. 2. May shower after 24 hours, no tub baths/hot tubs. 3. Do not drain more than 1 liter or 1000 mL in 24 hours. 4. New drainage bottle needed with each drainage. 5. Drainage frequency dictated by patient symptoms, may be every day, every other day, weekly, or however often the patient is symptomatic. For the first week drainage should be every day regardless of amount drained. 6. Please notify DIE INSPECTOR or office if temperature >101F, excessive pain at insertion site, drainage consistency changes to cloudy or smells bad, catheter falls out, or anything else that concerns you. 7. Contact surgery office with weekly drainage amounts. May fax the amounts. 8. Once drainage is less than 50 mL three times in a row, notify the surgery office for possible removal. DIE INSPECTOR: Kaela , Derrick Discharge Disposition: HOME WITH HOME HEALTH SERVICES
[2020-09-09 13:17] VITALS: RESP 16
--- NOTE | 2020-09-09 13:48 | PN ---
PROGRESS NOTE DATE OF SERVICE: 09/09/2020 REASON FOR FOLLOWUP: Aspergillus pneumonia and empyema. INTERVAL HISTORY: The patient is currently afebrile. The patient is feeling better. The patient's chest tube has been discontinued. Denies having any chest pain or shortness of breath. Occasional cough. No abdominal pain. No diarrhea. PHYSICAL EXAMINATION: Blood pressure is 87/51, pulse of 90, temperature 98.1. He is 96% on 2 L nasal cannula. General description is a middle-aged male up in the chair in no distress. RESPIRATORY SYSTEM: Unlabored breathing, decreased breath sounds in the bases. No wheeze . HEART: S1, S2. Regular rate and rhythm. ABDOMEN: Soft, no tenderness. LABS: Hemoglobin 9.3, white count of 9.8. BUN of 14, creatinine 0.72. DIAGNOSTIC IMPRESSION AND PLAN: Patient with aspergillus pneumonia with empyema, status post PleurX catheter placement. The patient seemed to show overall improvement. Currently on voriconazole for least at depending on clinical response and close outpatient followup. MMODL / IJN: [id number] /
--- NOTE | 2020-09-09 14:11 | P.PN ---
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 Other medical history includes hypertension, hypothyroidism and previous history of DVT. Patient had a recent hospitalization from August 08 through 08/11/2020 hypotension, dehydration re lated to nausea vomiting diarrhea, acute kidney injury. Patient received antibiotics in the form of Zosyn and Levaquin for possibility of pneumonia, he is chest x-ray showed cranial perihilar pulmonary infiltrates with increased interstitial changes at the lung bases and was thought to be related to a combination of rheumatoid lung and chronic scarring. His last CT of the chest was on 07/19/2020 showing chronic changes to lower lungs, persistent irregular thick-walled pleural spaces in the posterior lung bases containing fluid and air with adjacent anterior lung with chronic consolidation or atelectasis. On 08/19/2020 patient came into the emergency department from Dr. GENE Carias's office where he was being seen for a regular follow-up appointments. He was noted to have low pulse ox 70s and was sent in to the emergency department for evaluation. He has been having cough with yellow and sometimes blood-tinged sputum, appears amounts, denies any fever, COVID 19 was found to be negative, chest x-ray showed perihilar and basilar infiltrates without significant change from previous chest x-ray on 08/09/2020. Lab data showed leukocytosis with white blood cell count of 19.1, hemoglobin of 12.1, INR 1.5, sodium is 135, potassium is 3.9, chloride is 102, CO2 is 19, creatinine is 1.32, which has actually improved since his discharge from the hospital on 08/11/2020 when he was at 1.84. Lactic acid was elevated at 3.7, patient was given a total of 2 L in fluid boluses, troponin was negative at less than 0.012. Urinalysis showed no evidence of infection. CT chest showed thick-walled pleural cavities posteriorly in the lower lungs with left-sided air-fluid level with left-sided pleural fluid diminished most recent CT from 07/19/2020. There is associated compressive atelectasis and/or chronic consolidation. Persistent as it is lobe fissure, multifocal areas of reticular nodular opacity in the upper lungs remain present with slight nodularity in the left upper lobe. There is a focal consolidation improved from most recent study with some residual areas of scarring. We will emergency department patient became hypotensive with a blood pressure in the 70s, slightly tachycardic remains in sinus mechanism, he is receiving his third liter bolus, his lactic acid did respond and improved he was started on antibiotics in the form of Zosyn and vancomycin The patient is seen today August 20 2020 in the intensive care unit. He is currently sitting up in a chair at the bedside. Awake and alert in no acute distress. Maintaining O2 saturations in the 90s on 2 L/m per nasal cannula. He did require a small dose of norepinephrine currently on 0.05 mcg/kg/m. He has lactated Ringer's at 100 MLS per hour. He remains on vancomycin and cefepime. Chest x-ray continues to show the left lower lobe effusion. White count 11.7. Hemoglobin 9.7. Sodium 135. Potassium 3.6. Creatinine 1.00. Blood cultures reveal no growth to date. Reevaluated today on 08/21/2020, remains in the ICU, still on norepinephrine at 0.04 mcg/kg/m. On LR at 1 25 mL per hour. On vancomycin and cefepime empirically, blood pressure remains marginal, went ahead and recommended Solu-Cortef 100 mg IV push every 8 hours and hopefully will be able to discontinue norepinephrine today. His IV fluid is cut down to KVO. Given 20 mg of Lasix IV push, and I have recommended that we monitor the patient in the ICU for the next 24 hours. Chest x-ray is basically the same, continues to show ch ronic finding, difficult to exclude underlying pneumonia/empyema. CT of the chest on admission was also reviewed, difficult to rule out underlying empyema. Clinically the patient is feeling better except for generally weak. WBC count is 12.5 hemoglobin is 9.9. Normal renal profile is normal blood cultures are negative so far. Sputum cultures are also negative so far. On 08/22/2020 patient seen in follow-up in the intensive care unit, he is awake and alert, oriented 3, sitting up in the recliner, currently on 2 L of oxygen his pulse ox is 95-100%, his been afebrile, hemodynamically he is stable, he is not on any vasopressor support. His lactate Ringer's running at 20 ML per hour, antibiotics include cefepime and vancomycin, blood pressure has been stable, so far blood and sputum cultures are negative, he denies chest pain, his breathing is comfortable. Today's labs have been reviewed, showing white blood cell count trending down, 10.2 today, hemoglobin is 8.8, electrolytes and renal profile are unremarkable. Serum cortisol level came back at 3, patient continues on stress doses of hydrocortisone 100 mg every 8 hours. Patient has not been stable, we'll consult interventional radiology for ultrasound-guided left thoracentesis On 08/23/2020 patient seen in follow-up in the intensive care unit, he is calm and comfortable, awake and alert, sitting up in the recliner, currently on room air with a pulse ox of 93-94%, his been afebrile, hemodynamically he is been stable, he is on IV LR at 20 ML per hour, no other drips. He is on cefepime and vancomycin for antibiotic coverage, yesterday he underwent left thoracentesis with removal of 43 mL of pleural fluid which was sent for cultures. Tolerated procedure well. His pleural fluid analysis revealed total fluid protein of 1.3 g, and fluid LDH of greater than 4500 consistent with exudative fluid. His microbiology data has been reviewed showing Aspergillus fumigate is in the sputum, his pleural fluid cultures are pending at this time, the cultures have shown no growth, hemodynamically has been stable, he is breathing easier, he still has cough mostly in the morning and the amount of secretions his bringing up is decreasing in amount. Lung sounds revealed a few scattered wheezes, and a few rhonchi at bilateral bases. Is tolerating oral intake. No abdominal pain, no nausea or vomiting, today's labs have been reviewed, white blood cell count is 11.2, hemoglobin is 9.1, sodium is 137, potassium is 4.0, chloride is 109, BUN is 15, creatinine 0.80. No acute events overnight. He is working on incentive spirometer, he is achieving 1000 today On 08/24/2020 patient seen in follow-up on medical surgical floor. He is awake and alert, in no acute distress, breathing comfortably, denies any chest pain, room air pulse ox is 94%, no fever or chills, today's chest x-ray shows left basilar loculated pneumothorax, stable in appearance, bilateral lung infiltrates. His pleural fluid cultures so far showing Aspergillus species, as does his sputum culture. Blood culture show no growth. The cervix is follow ing, current antibiotic coverage includes cefepime, vancomycin has been discontinued, she received 1 dose of IV Lasix per nephrology. He has produced 2500 in urine output, and he is in -1.6 L over the last 24 hours, however he still has significant lower extremity edema. The patient is seen today 08/25/2020 in follow-up in the intensive care unit. He was transferred here earlier this morning after developing atrial fibrillation/flutter with a rapid ventricular response. He was initiated on C ardizem at 5 mg per hour. He has 0.9 normal saline at 20 ML's per hour. He is currently awake and alert in no acute distress. No worsening shortness of breath, cough or congestion. No chest pain or palpitations. He sitting up in a chair at the bedside. Maintaining O2 saturations in the 90s on 2 L/m per nasal cannula. Chest x-ray does reveal loculated posterior basilar pneumothoraces, stable from previous exam. There is diffuse increased lung markings. Correlate for pneumonia and atelectasis. Pleural fluid cultures is positive for Aspergillus species. White count 10.9. Hemoglobin 8.8. Sodium 139. Potassium 3.4. Creatinine 0.89. He remains on bronchodilators, IV diuretics, IV Solu- Cortef. Continued on voriconazole. The patient is seen today 08/27/2020 in follow-up on the selective care unit. He is currently sitting up in a recliner at the bedside. Awake and alert in no acute distress. He is currently on room air. LR at 20 miles per hour. Heparin drip per weight base protocol. White count 19.0. Hemoglobin 9.1. Sodium 142. Potassium 3.6. Creatinine 0.81. He remains on voriconazole. The patient is seen today 08/28/2020 in follow-up on the selective care unit. He is currently sitting up in a chair at the bedside. No worsening shortness of breath, cough or congestion. Chest x-ray reveals bilateral airspace infiltrates right greater than left without significant improvement. Sputum and pleural fluid cultures were both positive for Aspergillus fumigatus. He remains on voriconazole. White count 18.5. Hemoglobin 10.1. Sodium 141. Potassium 3.3. Creatinine 0.8. Atrial fibrillation. He remains on a heparin drip. Plan is for left-sided Pleurx catheter placement in a.m. The patient is seen today 09/04/2020 in follow-up on the selective care unit. He is currently sitting up in a recliner. Awake and alert in no acute distress. Maintaining O2 saturations in the low 90s on 2 L/m per nasal cannula. He is afebrile. Hemodynamically stable. Pleural fluid cultures were positive for Aspergillus fumigatus. White count 12.6. Hemoglobin 9.9. Neutrophils 9.7. Sodium 140. Potassium 3.3. Creatinine 0.68. AST 73, ALT 118. Chest x-ray co ntinues to show severe diffuse bilateral subcutaneous emphysema. Suspect a left-sided pneumothorax along the costophrenic angle measuring 10-15%. Left- sided Pleurx catheter remains in place. Positive leak. Remains on voriconazole, bronchodilators, IV diuretics. Quite related with Eliquis. The patient is seen today 09/07/2020 in follow-up on the selective care unit. He is currently resting comfortably in a recliner. He is awake and alert in no acute distress. Maintain good O2 saturations in the mid 90s on 2 L/m per nasal cannula. He's been afebrile. Chest x-ray continues to show extensive subcutaneous emphysema. Underlying pleural parenchymal opacities persist. Left basilar pleural catheter unchanged. Sputum and pleural fluid cultures positive for Aspergillus fumigatus. He remains on voriconazole. Remains on bronchodilators, anticoagulated with Eliquis. White count 9.8. Hemoglobin 9.3. Sodium 138. Potassium 3.7. Creatinine 0.72. AST 106. ALT 85. The patient is seen today 09/08/2020 in follow-up on the selective care unit. He is awake and alert in no acute distress. Sitting up in a recliner. Maintain good O2 saturations in the mid 90s on 2 L/m per nasal cannula. He's been afebrile. He remains on voriconazole. Remains on bronchodilators, anticoagulated with Eliquis. Chest x-ray reveals persistent extensive bilateral subcutaneous emphysema. Air-fluid levels no seen in the bilateral lower lungs suggesting underlying loculated hydropneumothorax is on both sides. Pleural edge better seen in the left base with continued left-sided Pleurx catheter. Patchy airspace disease throughout the right lung persist. The patient is seen today 09/09/2020 in follow-up on the selective care unit. He is currently sitting up in a recliner at the bedside. Awake and alert in no acute distress. Maintaining O2 saturations in the mid 90s on 2 L/m per nasal cannula. He is afebrile. Pleural fluid cultures positive for Aspergillus fumigatus. He remains on voriconazole. Chest x-ray reveals stable loculated left lateral base pneumothorax. Bilateral air-fluid levels within the lung bases. Subcutaneous emphysema stable. Left-sided Pleurx catheter remains in place. Currently capped. Objective - Vital Signs Vital signs: Vital Signs Temp 98.1 F 09/09/20 08:00 Pulse 90 09/09/20 08:00 Resp 16 09/09/20 12:00 BP 87/51 09/09/20 08:00 Pulse Ox 96 09/09/20 12:00 Intake & Output 09/08/20 09/09/20 09/09/20 18:59 06:59 18:59 Intake Total 862 12 560 Output Total 470 400 Balance 392 -388 560 Weight 101.9 kg Intake: IV 10 12 0.9 12 Invasive Line 7 10 Oral 852 560 Output: Chest Tube Drainage 70 Left Mid-Axillary Chest 70 Drainage 0 Left Chest 0 Urine 400 400 Other: Voiding Method Toilet Urinal # Voids 1 - Exam GENERAL EXAM: Alert, very pleasant 60-year-old gentleman, on 2 L nasal cannula, comfortable in no apparent distress. HEAD: Normocephalic. EYES: Normal reaction of pupils, equal size. NOSE: Clear with pink turbinates. THROAT: No erythema or exudates. NECK: No masses, no JVD. CHEST: Bilateral subcutaneous emphysema. Left Pleurx catheter remains in place. LUNGS: Equal air entry with few scattered rhonchi, crackles in the posterior bases. CVS: S1 and S2 normal with no audible murmur, irregular rhythm. ABDOMEN: No hepatosplenomegaly, normal bowel sounds, no guarding or rigidity. SPINE: No scoliosis or deformity SKIN: No rashes CENTRAL NERVOUS SYSTEM: No focal deficits, tone is normal in all 4 extremities. EXTREMITIES: There is 2+ peripheral edema. No clubbing, no cyanosis. Peripheral pulses are intact. - Labs CBC & Chem 7: 09/07/20 07:40 09/07/20 07:40 Assessment and Plan Assessment: 1 Acute hypoxic respiratory failure secondary to sepsis, septic shock, related to pneumonia, with chronic loculated effusions, possible empyema. Cultures positive for Aspergillus fumigatus. Left Pleurx catheter remains in place since 08/29/2020 . He continues to have intermittent air leak. Output from the Pleurx catheter was noted. He does have some stable subcutaneous emphysema bilaterally. There is also some diastolic dysfunction and elevation of the liver function tests related to voriconazole which is being monitored very closely 2 Bilateral hydropneumothorax, possible empyema, status post ultrasound-guided left-sided thoracentesis on 08/22/2020 with 45 ML's of cloudy white fluid re moved, showing Aspergillus. Remains on voriconazole. 3 Bilateral subcutaneous emphysema along with a hydropneumothorax on the left with positive air leak through the Pleurx catheter. He was currently attached to continuous suction 4 Recent pulmonary infections with history of streptococcal pneumonia, empyema requiring chest tube placement in January 2020. 5 Chronic loculated pneumothoraces, posterior, with air-fluid seen on CAT scan imaging on the chest. Possibility of trapped lung, chronic scarring and possibility of empyema. 6 History of rheumatoid arthritis and rheumatoid lung disease. On Arava 7 Recent history of acute kidney injury 8 Hypertension 9 Hypothyroidism 10 Previous history of DVT. 11 New-onset atrial fibrillation/flutter anticoagulated status post failed cardioversion. Currently on Eliquis Plan: The patient was seen and evaluated by Dr. Dougherty Chest x-ray reviewed Pleurx catheter remains in place Home once cleared by CT services Follow up in our office in 1-2 weeks' time I, the cosigning physician, performed a history & physical examination of the patient. Lungs sounds bilateral scattered rhonchi and crackles in the bilateral bases. Maintaining good O2 saturations in the 90s on 2 L/m per nasal cannula. I discussed the assessment and plan of care with my nurse practitioner, Morena Cobb. I attest to the above note as dictated by her.
--- NOTE | 2020-09-12 09:30 | CDI ---
Documentation Clarification Form Date: 09/12/20 From: Patt Clark Phone: If you have a question about this query, please contact Jody Andrade, Exercise Physiology Professor at [phone] between 8am and 5pm. Admit Date: 08/19/2020 12:02:00 PM Patient Name: Lokesh Zee Visit Number: [id number] Discharge Date: 09/09/2020 02:20:00 PM ATTENTION: The Clinical Documentation Specialists (CDI) and [facility] Coding Staff appreciate your assistance in clarifying documentation. Please respond to the clarification below the line at the bottom and electronically sign. The CDI & [facility] Coding staff will review the response and follow-up if needed. Please note: Queries are made part of the Legal Health Record. If you have any questions, please contact the author of this message via ITS. Dr. Cody Prieto, New onset atrial Fibrillation on Cardizem drip is documented in PNs starting with 08/25. He underwent cardioversion and ablation of atrial flutter on 08/29 & 09/01. 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 Chronic Permanent Paroxysmal Persistent, longstanding Persistent, other Persistent, permanent Other, please specify Unable to determine MTDD
[2020-09-25] MEDS ORDERED: AMIODARONE 200 MG TAB PO SCH (09:00)
== END 2020-09-09 14:20 | disposition home health service (06) | DRG 853 ==
LOC: EC 08:52 → 3SCARD 12:02 → 2SICU 14:36 → 4SSUR 08-24 00:33 → 2SICU 08-25 08:08 → 3SCARD 08-26 17:27
PROVIDERS: ADMIT Internal Medicine; ATTEND Internal Medicine
PROC: 3E043XZ Introduction of Vasopressor into Central Vein, Percutaneous Approach (ICD-10-PCS; 2020-08-19)
PROC: 02HV33Z Insertion of Infusion Device into Superior Vena Cava, Percutaneous Approach (ICD-10-PCS; 2020-08-19)
PROC: 0W9B3ZX Drainage of Left Pleural Cavity, Percutaneous Approach, Diagnostic (ICD-10-PCS; 2020-08-22)
PROC: 0W9B30Z Drainage of Left Pleural Cavity with Drainage Device, Percutaneous Approach (ICD-10-PCS; 2020-08-29)
PROC: 3E1 Administration, Physiological Systems and Anatomical Regions, Irrigation (ICD-10-PCS; 2020-08-29)
PROC: 3E0L3GC Introduction of Other Therapeutic Substance into Pleural Cavity, Percutaneous Approach (ICD-10-PCS; 2020-08-29)
PROC: B246ZZ4 Ultrasonography of Right and Left Heart, Transesophageal (ICD-10-PCS; 2020-08-30)
PROC: 5A2204Z Restoration of Cardiac Rhythm, Single (ICD-10-PCS; 2020-08-30)
PROC: 02K83ZZ Map Conduction Mechanism, Percutaneous Approach (ICD-10-PCS; principal; 2020-08-30 07:15)
PROC: 02583ZZ Destruction of Conduction Mechanism, Percutaneous Approach (ICD-10-PCS; principal; 2020-08-30 07:15)
PROC: B246ZZ4 Ultrasonography of Right and Left Heart, Transesophageal (ICD-10-PCS; principal; 2020-08-30 07:15)
DX: A41.89 Other specified sepsis (principal); J86.9 Pyothorax without fistula; J96.21 Acute and chronic respiratory failure with hypoxia; N17.0 Acute kidney failure with tubular necrosis; R65.21 Severe sepsis with septic shock; B44.1 Other pulmonary aspergillosis; J91.8 Pleural effusion in other conditions classified elsewhere; J94.8 Other specified pleural conditions; E87.2 Acidosis; E87.1 Hypo-osmolality and hyponatremia; I48.3 Typical atrial flutter; M05.10 Rheumatoid lung disease with rheumatoid arthritis of unspecified site; L97.509 Non-pressure chronic ulcer of other part of unspecified foot with unspecified severity; D63.8 Anemia in other chronic diseases classified elsewhere; I48.91 Unspecified atrial fibrillation; Z20.822 Contact with and (suspected) exposure to COVID-19; I11.9 Hypertensive heart disease without heart failure; E03.9 Hypothyroidism, unspecified; E78.5 Hyperlipidemia, unspecified; K21.9 Gastro-esophageal reflux disease without esophagitis; E87.6 Hypokalemia; E86.9 Volume depletion, unspecified; T50.1X5A Adverse effect of loop [high-ceiling] diuretics, initial encounter; Z79.82 Long term (current) use of aspirin; Z79.890 Hormone replacement therapy; Z79.899 Other long term (current) drug therapy; Z86.718 Personal history of other venous thrombosis and embolism; Z87.01 Personal history of pneumonia (recurrent); Z87.442 Personal history of urinary calculi; Z87.891 Personal history of nicotine dependence; Z87.39 Personal history of other diseases of the musculoskeletal system and connective tissue; Z90.89 Acquired absence of other organs; Z98.890 Other specified postprocedural states; Z80.8 Family history of malignant neoplasm of other organs or systems; Z80.1 Family history of malignant neoplasm of trachea, bronchus and lung
CPT/HCPCS: 32555; 36415; 36600; 71045; 71046; 71275; 74177; 76000; 80048; 80053; 80202; 81003; 82533; 82803; 82805; 82945; 83605; 83615; 83735; 83880; 84132; 84157; 84484; 85025; 85027; 85610; 85652; 85730; 86140; 87040; 87070; 87102; 87116; 87205; 87206; 87324; 87635; 88305; 89050; 92960; 93005; 93613; 93653; 93662; 94640; 94760; 96361; 96365; 96367; 99285